=== PATIENT | male | born 1965 | race Hispanic/Latino ===

== ENCOUNTER 2016-09-23 08:31 | Outpatient (RCR) | payer MEDICAID ==
--- OUTSIDE RECORDS SUMMARY | 2016-08-10 08:17 | XMS REPORT | Continuity of Care Document ---
Author Author [facility] Organization [facility] Address Unknown Phone Unavailable Care Team Providers Care Er Medical Technician Name Role Phone [facility] PCP Insurance Providers Payer Name Policy Number Subscriber Name Relationship [facility] [employer] [id number] Rita Thomas 16 Self / Same As Patient Advance Directives Directive Response Recorded Date/Time Advance Directives No 05/22/16 4:51pm Health Care Power of Personal Financial Representative No 05/22/16 4:51pm Organ Donor No 05/22/16 4:51pm Resuscitation Status Full Code 05/22/16 4:51pm Chief Complaint and Reason for Visit Chief Complaint Orthopedic Problems Reason for Visit Soft tissue infection Problems Active Problems Medical Problem Onset Date Status Acute dyspnea Unknown Acute Soft tissue infection Unknown Acute Medications Current Home Medications Medication Dose Units Route Directions Days/Qty Instructions Start Date Triamterene/Hctz 1 Each 1 Cap Oral Daily 01/14/11 Metformin Hcl (Glucophage) 500 Mg 500 Mg Oral Twice A Day 09/18/11 Metoprolol Tartrate 50 Mg 50 Mg Oral Twice A Day 01/28/16 Docusate Sodium 100 Mg 100 Mg Oral Daily 01/28/16 Chlorzoxazone 500 Mg 500 Mg Oral Twice A Day as needed for Pain Sertraline Hcl 50 Mg 50 Mg Oral Daily 04/08/16 Lisinopril 10 Mg 10 Mg Oral Daily 04/14/16 Atorvastatin Calcium 20 Mg 20 Mg Oral Bedtime 04/14/16 Hydrocodone/Acetaminophen 1 Each 1 Tab Oral Four Times Daily as needed for Pain 04/21/16 Oxycodone Hcl/Acetaminophen 1 Each 1 Each Oral Every 4HRS as needed for Pain 50 04/24/16 Cefdinir (Omnicef) 300 Mg 300 Mg Oral Twice A Day 20 05/15/16 Sulfamethoxazole/Trimethoprim 1 Each 1 Each Oral 05/22/16 Doxycycline Hyclate 100 Mg 100 Mg Oral Daily 05/22/16 Past Home Medications Medication Directions Ordered Status Sertraline Hcl 100 Mg Tab, 03/25/09 Discontinued Naproxen 500 Mg Tablet, 1 Each Oral Three Times A Day And Prn 03/25/09 Discontinued Methocarbamol (Robaxin) 750 Mg Tablet, 1 Each Oral Four Times Daily 03/25/09 Discontinued Tramadol Hcl 50 Mg Tablet, 1 Tab Oral Four Times Daily 03/25/09 Discontinued Hydrocodone Bit/Acetaminophen 1 Each Capsule, 1 Each Oral Every 6 Hours 01/14 Discontinued Acetaminophen/Hydrocodone Bitart 1 Each Tablet, 1 - 2 Each Oral Q4hr Prn 12/21 Discontinued Hydrocodone/Acetaminophen 1 Each Tablet, 1 Tab Oral Four Times Daily as needed for Pain 01/28/16 Discontinued Oxycodone Hcl/Acetaminophen 1 Each Tablet, 1 Each Oral Every 4HRS 02/05/16 Discontinued Oxycodone Hcl/Acetaminophen 1 Each Tablet, 1 Each Oral Every 4HRS 02/07/16 Discontinued Social History Social History Problem Response Recorded Date/Time Alcohol Use Occasionally Uses 04/08/2016 9:12am Recreational Drug Use No 04/08/2016 9:12am Recent Foreign Travel No 05/22/2016 4:51pm Recent Infectious Disease Exposure No 05/22/2016 4:51pm Hospitalization with Isolation Denies 05/22/2016 4:51pm Sexually Transmitted Disease No 05/15/2016 5:56pm HIV/AIDS No 05/15/2016 5:56pm Smoking Status Current Someday Smoker 05/22/2016 4:51pm Type Used Cigarettes 05/22/2016 4:51pm Recent Hopitalizations Y DAY SURGERY 05/15/2016 5:56pm Sexually Transmitted Disease No 05/15/2016 5:56pm Hospitalization with Isolation Denies 05/22/2016 4:51pm Query Response Start Date Stop Date Smoking Status Current Someday Smoker Hospital Discharge Instructions No hospital discharge instructions. Plan of Care Discharge Date 05/22/16 6:50pm Disposition 01 HOME, SELF-CARE Condition at Discharge Stable Instructions/Education Provided DR. MA-GENERAL INSTRUCTION Prescriptions See Medication Section Referrals [facility] - Primary Care Physician [facility] - Primary Care Physician FALLON MA MD - Additional Instructions/Education All discharge instructions reviewed with patient and/or family. Voiced understanding. continue your antibiotics as prescribed. Follow-up with Dr. Ma on Tuesday as scheduled. Return for worse pain, fever, swelling, milky drainage from the wound, red streaks up the leg or other concerns as needed. Functional Status No functional status results. Allergies, Adverse Reactions, Alerts No known allergies. Immunizations No immunization records. Vital Signs Acute Vital Signs Vital Response Date/Time Temperature (Fahrenheit) 98.1 degrees F (97.6 - 99.5) 05/22/2016 4:51pm Temperature (Calculated Celsius) 36.01248 degrees C (36.4 - 37.5) 05/22/2016 4:51pm Temperature Source Temporal 05/22/2016 4:51pm Pulse Rate (adult) 89 bpm (60 - 90) 05/22/2016 4:51pm Respiratory Rate 16 bpm (12 - 24) 05/22/2016 4:51pm O2 Sat by Pulse Oximetry 97 % (88 - 100) 05/22/2016 4:51pm Blood Pressure 142/74 mm Hg 05/22/2016 4:51pm Blood Pressure Mean 96 mm Hg 05/22/2016 4:51pm Pain Numeric Pain Scale 7 05/22/2016 4:51pm Height (Feet) 5 feet 05/22/2016 4:51pm Height (Inches) 6 inches 05/22/2016 4:51pm Height (Calculated Centimeters) 167.511823 cm 05/22/2016 4:51pm Weight (Pounds) 258 pounds 05/22/2016 4:51pm Weight (Ounces) 0.0 oz 05/22/2016 4:51pm Weight (Calculated Grams) 013304.833 gm 05/22/2016 4:51pm Weight (Calculated Kilograms) 117.567648 kilograms 05/22/2016 4:51pm Calculated BMI 40.5 05/22/2016 4:51pm Capillary Refill Capillary Refill Less Than 3 Seconds 05/22/2016 4:51pm Results Laboratory Results Test Name Result Units Flags Reference Collection Date/Time Result Date/ Time Comments Hemoglobin 10.7 G/DL #L 13.3-17.7 04/24/2016 5:43am 04/24/2016 6:17am Hematocrit 32 % L 40-54 04/24/2016 5:43am 04/24/2016 6:17am Glucometer 110 MG/DL 70-110 04/21/2016 7:32am 04/21/2016 7:40am Pending Laboratory Results Test Name Collection Date/Time Pending Microbiology Results Procedure Source Collection Date/Time Procedures Procedure Status Date Provider(s) REPLACE OF R KNEE JT WITH SYNTH SUB, CEMENT, OPEN APPROACH Completed FALLON MA MD Encounters Encounter Location Arrival/Admit Date Discharge/Depart Date Attending Provider Departed Emergency Room [facility] 05/22/16 4:36pm 05/22 6:50pm JENNIFER DASH MD Registered Recurring [facility] 05/21/16 9:14am FALLON MA MD Departed Emergency Room [facility] 05/15/16 5:30pm 05/15 7:19pm FABIANA CARRINGTON APRN Discharged Inpatient [facility] 04/21/16 7:20am 11:13am FALLON MA MD Recent Diagnosis
[~2016-09-23 08:31] MED LIST: ATOR20TA66 PO; CEFD300C3 PO; CHLO500T4 PO; DOCU-143 PO; DOXY100C2 PO; HYDR-3820 PO; HYDR1CAP2 PO; HYDR1TAB PO; LISI10TA2 PO; METH750T3 PO; METO50TA2 PO; MTF500T PO; NAPR-243 PO; OXYC-197 PO; OXYC-471 PO; SERT50TA9 PO; SRTR100T; SULF1TAB35 PO; TRIA1CAP PO; TRM50T PO
== END 2016-09-23 09:54 | disposition home or self-care (01) ==
PROVIDERS: ATTEND Orthopaedic Surgery
DX: M54.16 Radiculopathy, lumbar region (principal); Z96.653 Presence of artificial knee joint, bilateral

== ENCOUNTER → 2016-10-20 | Outpatient (CLI) | payer MEDICAID ==
--- OUTSIDE RECORDS SUMMARY | 2016-10-20 14:43 | XMS REPORT | Continuity of Care Document ---
Author Author [facility] Organization [facility] Address Unknown Phone Unavailable Care Team Providers Care Pourer Off Name Role Phone [facility] PCP Insurance Providers Payer Name Policy Number Subscriber Name Relationship [facility] [employer] [id number] Rita Thomas 16 Self / Same As Patient Advance Directives Directive Response Recorded Date/Time Advance Directives No 05/22/16 4:51pm Health Care Power of Roof Truss Builder No 05/22/16 4:51pm Organ Donor No 05/22/16 [...] MA-GENERAL INSTRUCTION Prescriptions See Medication Section Referrals [facility] - Primary Care Physician [facility] - Primary Care Physician FALLON MA [...] - 99.5) 05/22/2016 4:51pm Temperature (Calculated Celsius) 36.65587 degrees C (36.4 - 37.5) 05/22/2016 4:51pm [...] 6 inches 05/22/2016 4:51pm Height (Calculated Centimeters) 167.097912 cm 05/22/2016 4:51pm Weight (Pounds) 258 pounds 05/22/2016 4:51pm Weight (Ounces) 0.0 oz 05/22/2016 4:51pm Weight (Calculated Grams) 612516.833 gm 05/22/2016 4:51pm Weight (Calculated Kilograms) 117.246012 kilograms 05/22/2016 4:51pm Calculated BMI 40.5 05/22/2016 [...] Date Attending Provider Departed Emergency Room [facility] 05/22/16 4:36pm 05/22 6:50pm JENNIFER DSAH MD Registered Recurring [facility] 05/21/16 9:14am FALLON MA MD Departed Emergency Room [facility] 05/15/16 5:30pm 05/15 7:19pm FABIANA CARRINGTON APRN Discharged Inpatient [facility] 04/21/16 7:20am 11:13am FALLON MA MD Recent Diagnosis
--- NOTE | 2016-10-20 16:16 | Diagnostic Imaging Report ---
PROCEDURE: MRI lumbar spine. TECHNIQUE: Multiplanar, multisequence MRI of the lumbar spine was performed without contrast. INDICATION: Lumbar radiculopathy. Bilateral leg weakness. FINDINGS: There are short pedicles in the lumbar spine resulting in shortened AP dimension of the spinal canal and short AP dimension of the spinal canal. This results in atgy-ky-ijanubpd congenital spinal canal stenosis involving mostly L3 and L4 vertebral body levels and slightly at the L2 vertebral level. There is a pars defect on the left side at L5 seen on CT scan from 2008 not well demonstrated by MRI. There is no compression fracture. The alignment at the posterior spinal line is satisfactory. There is mild disc height loss at the L2-L3 and L4-L5 levels. Mild disc desiccation at most lumbar spine levels seen. The cauda equina and conus medullaris appear grossly unremarkable. Multilevel facet arthropathy is seen. There is 1.3 cm T2 hyperintense lesion in the L3 vertebral body with well-defined margins which may represent a vertebral hemangioma. T12-L1: There is a mild disc bulge with mild facet hypertrophy. No cord compression. There is mild central canal stenosis reducing the AP dimension of the spinal canal to 8.8 mm. The lateral recess is patent on both sides. No foraminal stenosis. L1-L2: There is a diffuse disc bulge and bilateral moderate facet arthropathy. There is qxzqwlxk-pm-jwewgi central canal stenosis reducing the AP dimension of the canal to 6.6 mm with bilateral mild lateral recess stenosis. The foramina demonstrate mild stenosis only on the right side. L2-L3 level: There is a diffuse disc bulge and moderate facet arthropathy associated with severe central canal stenosis reducing the AP dimension of the canal to 6.4 mm and associated with dvcpgokj-av-avkjeu bilateral lateral recess stenosis. The foramina demonstrate moderate narrowing on the left and lrmy-fc-vzpoyrer narrowing on the right side. There is sdpw-kd-xgxccegy stenosis of the spinal canal at the L3 vertebral level with the central canal measurement at 8 mm in AP dimension at mid L3 vertebral body level. L3-L4: There is a central disc protrusion on top of a diffuse bulge and xzouishw-jq-rmlmga facet arthropathy resulting in qlkmppgc-vm-jctimp spinal canal stenosis reducing the AP dimension of the canal to 6.7 mm and resulting in severe stenosis of the left lateral recess and jurb-wc-vycpzjyo stenosis of the right lateral recess. There is bilateral foraminal stenosis moderate on the left and qwltqndp-jk-tqvovj on the right side. L4-L5: There is a diffuse disc bulge and bilateral severe facet arthropathy. There is a xeaj-na-dcojypwq central canal stenosis reducing the AP dimension of the canal to 8.3 mm and there is bilateral narrowing of the lateral recesses of a moderate degree on the left and tnzrtlbu-hj-fiudtr degree on the right side encroaching upon the descending right L5 nerve root. The foramina demonstrate bilateral stenosis mild on the left and vmhmldbu-ph-yuhewm on the right side. L5-S1: No significant disc herniation. There is mild facet hypertrophy. No central canal or lateral recess stenosis. There is jpyc-xc-uamxgxsk stenosis in the right neural foramen and mild stenosis on the left. IMPRESSION: There is multilevel significant central canal, lateral recess and foraminal stenosis worst at the L2-L3 and L3-L4 levels. This is related to congenital spinal canal stenosis with superimposed disc and facet degenerative changes. Report was faxed to the office of Dr. Chidi Ma at 4:14 p.m., by margarita (for CLARICE). Dictated by: Dictated on workstation # [id number]
== END ==
LOC: RAD 14:39
PROVIDERS: ATTEND Orthopaedic Surgery
DX: M54.16 Radiculopathy, lumbar region (principal)
CPT/HCPCS: 72148

== ENCOUNTER → 2019-01-18 | Outpatient (CLI) | payer MEDICARE ==
[~2019-01-18] MED LIST changes: +AMIT100T2; +GABA800T10; +LISI-552; +MECL-106 PO; +METF-397; +METO50TA15 PO; -METO50TA2 PO; +ONDA8TAB9 PO; -OXYC-197 PO; +OXYC-465; +OXYC1TAB87 PO; +PROM25SU43 RC; +SCOP1PAT11 TD; +SILD100T; +TRIA1CAP4
== END | disposition home or self-care (01) ==
LOC: PREOP 05:37
PROVIDERS: ATTEND Podiatrist Foot & Ankle Surgery
DX: Z01.818 Encounter for other preprocedural examination (principal)

== ENCOUNTER → 2019-03-29 | Outpatient (CLI) | payer MEDICARE ==
--- NOTE | 2019-03-29 14:09 | Cardiology Stress Test Report ---
Stress Test Report Date of Procedure/Referring: Date of Procedure: Mar 29, 2019 PCP Melvin Pride MD Admitting Physician Trisha Welsh DO Indications: chest pain Baseline Heart Rate: 84 Baseline Blood Pressure: Blood Pressure Systolic: 132 Blood Pressure Diastolic: 92 Baseline EKG: Baseline EKG: Sinus rhythm Summary/Conclusion: Summary: In summary, the patient started exercising with a baseline heart rate, blood pressure and EKG mentioned above Patient was able to exercise for a total of 8 minutesminutes on Shelton protocol, 9.7 METs Maximum heart rate 157 bpm, which is 95 percent of maximum predicted heart rate response. Maximum blood pressure 214/[address] depression was noted at peak exercise which resolved during recovery. However equivocal changes. associated with chest and arm pain. Recovery EKG Return to baseline Conclusion: 1. Good exercise tolerance. 2. patient had ST depression and chest pain during peak exercise which resolved during recovery. The ST depressions were equivocal. clinical correlation is recommended, if the patient is at intermediate to high risk for obstructive CAD, I will recommend stress test with nuclear imaging or coronary angiography. 3. No arrhythmia was noted. 4. Aggressive hypertension management. Copy Copies To 1: MELVIN PRIDE MD Copies To 2: TRISHA WELSH M RIZWAN MD Mar 29, 2019 14:09
[2019-03-29 14:19] VITALS: BP 132/92
== END ==
LOC: CARD 09:08
PROVIDERS: ATTEND Pediatrics
DX: R07.9 Chest pain, unspecified (principal); I10 Essential (primary) hypertension
CPT/HCPCS: 93017

== ENCOUNTER 2019-04-26 12:59 | Day surgery (SDC) | payer MEDICARE, OTHER ==
[~2019-04-26] VITALS: Ht 167.6 cm; Wt 122.1 kg
[~2019-04-26 12:59] MED LIST changes: -OXYC-465; +OXYC-465 PO; -SILD100T; +SILD100T PO
[2019-04-26] MEDS ORDERED: ASPIRIN 81 MG CHEW (CHILDREN'S ASA) ONE (13:02)
[2019-04-26] MEDS ORDERED: NITROGLYCERIN 0.4 MG SL TABS BTL 25'S SL ONE (13:02)
[2019-04-26 13:14] LABS: BASOPHILS % (AUTO) 0 % (0-10); EOSINOPHILS # (AUTO) 0.3 10^3/uL (0.0-0.3); EOSINOPHILS % (AUTO) 4 % (0-10); HEMATOCRIT 39 % (40-54); HEMOGLOBIN 13.3 G/DL (13.3-17.7); LYMPHOCYTES # (AUTO) 1.8 X 10^3 (1.0-4.0); LYMPHOCYTES % (AUTO) 26 % (12-44); MEAN CORPUSCULAR HEMOGLOBIN 30 PG (25-34); MEAN CORPUSCULAR HGB CONC 34 G/DL (32-36); MEAN CORPUSCULAR VOLUME 87 FL (80-99); MEAN PLATELET VOLUME 9.5 FL (7.4-10.4); MONOCYTES # (AUTO) 0.5 X 10^3 (0.0-1.0); MONOCYTES % (AUTO) 7 % (0-12); NEUTROPHILS # (AUTO) 4.2 X 10^3 (1.8-7.8); NEUTROPHILS % (AUTO) 62 % (42-75); PLATELET COUNT 236 10^3/uL (130-400); RED CELL DISTRIBUTION WIDTH 12.8 % (10.0-14.5); WHITE BLOOD COUNT 6.8 10^3/uL (4.3-11.0)
[2019-04-26] MEDS ORDERED: ASPIRIN 81 MG CHEW (CHILDREN'S ASA) PO ONE (13:15)
[2019-04-26 13:28] LABS: PROTHROMBIN TIME PATIENT 13.6 SEC (12.2-14.7)
[2019-04-26] MEDS ORDERED: HYDROCHLOROTHIAZIDE 25 MG (HCTZ) TAB PO ONE (13:30)
[2019-04-26] MEDS ORDERED: lisINopril 20 MG (PRINIVIL) TABLET PO ONE (13:30)
[2019-04-26] MEDS ORDERED: meTOprolol TARTRATE 50 MG (LOPRESSOR) TAB PO ONE (13:30)
[2019-04-26] MEDS ORDERED: amLODIPine 5 MG (NORVASC) TAB PO ONE (13:30)
--- NOTE | 2019-04-26 13:31 | Diagnostic Imaging Report ---
Indication: Chest pain. Time of exam: 1:24 PM Correlation is made with prior study 01/24/2016. The heart size is normal. The pulmonary vascularity is unremarkable. The lungs are clear. No infiltrate, effusion or pneumothorax is detected. Impression: No acute cardiopulmonary process is detected. Dictated by: Dictated on workstation # [id number]
--- NOTE | 2019-04-26 13:37 | ED Chest Pain ---
General Chief Complaint: Chest Pain Stated Complaint: CHEST PAIN Nursing Triage Note: Pt amb to room #5 w/o difficulty. a&ox4. 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 Pt reports he was driving home from [place] when symptoms began. Pt reports she did not take any of his prescribed medications this am, d/t waking up late for an appt. Pt also reports nausea, headache, and cough. Pt currently denies chest discomfort @ this time. Nursing Sepsis Screen: No Definite Risk Source: patient Exam Limitations: no limitations History of Present Illness Date Seen by Provider: Apr 26, 2019 Time Seen by Provider: 13:00 Initial Comments Here with report of chest pain on the left side that radiated to the left shoulder. Onset while driving back from [place] and lasted approximately 10 minutes. Reports that it is sharp. Pain is currently gone. He apparently had an appointment [place] this morning and got up late. He had to get up and get up there quickly and so forgot to take his blood pressure medicines. Arrives quite hypertensive. Denies shortness of breath, sweating, nausea or vomiting. Last Viagra use one week ago Timing/Duration: 1/2 hour Severity/Quality: moderate Location: central Radiation: shoulders (left) Prior CP/Workup: stress test Modifying Factors: improves with rest ASA po COMPRESSOR STATION OPERATOR: No NTG SL COMPRESSOR STATION OPERATOR: No Associated Symptoms: No abdominal pain; back pain (chronic and unchanged); No diaphoresis, No nausea/vomiting, No shortness of breath, No weakness Allergies and Home Medications Allergies Coded Allergies: No Known Drug Allergies (Unverified , 05/22/16) Home Medications Atorvastatin Calcium 20 Mg Tablet, 20 MG PO HS, (Reported) Cefdinir 300 Mg Capsule, 300 MG PO BID Prescribed by: FABIANA CARRINGTON on 05/15/16 1850 Chlorzoxazone 500 Mg Tablet, 500 MG PO BID PRN for PAIN, (Reported) Docusate Sodium 100 Mg Capsule, 100 MG PO DAILY, (Reported) Doxycycline Hyclate 100 Mg Capsule, 100 MG PO DAILY, (Reported) Hydrocodone/Acetaminophen 1 Each Tablet, 1 TAB PO QID PRN for PAIN, (Reported) Lisinopril 10 Mg Tablet, 10 MG PO DAILY, (Reported) Meclizine HCl 25 Mg Tablet, 25-50 MG PO Q6H Prescribed by: JERRICA OCASIO on 07/16/17113 Metformin Hcl 500 Mg Tablet, 500 MG PO BID, (Reported) Metoprolol Tartrate 50 Mg Tablet, 50 MG PO BID, (Reported) Ondansetron 8 Mg Tab.rapdis, 8 MG PO Q4H Prescribed by: JERRICA OCASIO on 07/16/17113 Oxycodone HCl/Acetaminophen 1 Each Tablet, 1 EACH PO Q4H PRN for PAIN Prescribed by: PORSCHE NULL on 04/24/16 100 Promethazine HCl 25 Mg Supp.rect, 25 MG RC Q4H Prescribed by: JERRICA OCASIO on 07/16/17113 Scopolamine 1 Each Patch.td72, 1 EACH TD Q72 HOURS Prescribed by: JERRICA OCASIO on 07/16/17113 Sertraline HCl 50 Mg Tablet, 50 MG PO DAILY, (Reported) Triamterene/Hctz 1 Each Capsule, 1 CAP PO DAILY, (Reported) Patient Home Medication List Home Medication List Reviewed: Yes Review of Systems Review of Systems Constitutional: see HPI; No chills, No fever EENTM: No Symptoms Reported Respiratory: See HPI; Denies Orthopnea, Denies Shortness of Air Cardiovascular: Chest Pain; Denies Edema, Denies Lightheadedness Gastrointestinal: No Symptoms Reported Genitourinary: No Symptoms Reported Musculoskeletal: back pain; No joint pain, No muscle pain Skin: no symptoms reported Psychiatric/Neurological: No Symptoms Reported All Other Systems Reviewed Negative Unless Noted: Yes Past Raynwdc-Fkderw-Ldgbuj Hx Past Med/Social Hx: Reviewed Nursing Past Med/Soc Hx Patient Social History Alcohol Use: Rarely Uses Number of Drinks Today: AA Alcohol Beverage of Choice: Beer Recreational Drug Use: No (OCCASIONALLY) Smoking Status: Current Someday Smoker Type Used: Cigarettes 2nd Hand Smoke Exposure: No Recent Foreign Travel: No Contact w/Someone Who Travel: No Recent Infectious Disease Expo: No Recent Hopitalizations: No Immunizations Up To Date Tetanus Booster (TDap): Unknown Seasonal Allergies Seasonal Allergies: No Past Medical History Surgeries: Yes (KNEE SCOPES; CARDIAC CATH; HERNIA REPAIR; BILATERAL KNEE REPLACEMENTS) Abdominal, Appendectomy, Joint Replacement, Orthopedic Respiratory: No Cardiac: Yes Hypertension Neurological: No Reproductive Disorders: No Sexually Transmitted Disease: No HIV/AIDS: No Genitourinary: No Gastrointestinal: Yes Chronic Constipation Musculoskeletal: Yes (CHRONIC KNEE PAIN) Arthritis, Chronic Back Pain Endocrine: Yes (OBESITY) Diabetes, Non-Insulin dep HEENT: No Cancer: No Psychosocial: Yes Depression Integumentary: No Blood Disorders: No Adverse Reaction/Blood Tranf: No (N/A) Family Medical History Reviewed Nursing Family Hx Completed stroke 19 MOTHER Hypertension 19 MOTHER Myocardial infarction G8 SISTER Heart Disease, Diabetes, Hypertension Physical Exam Vital Signs Vital Signs - First Documented Capillary Refill : Less Than 3 Seconds Height, Weight, BMI Height: 5'6.00" Weight: 264lbs. 0.0oz. 119.719435dr; 40.5 BMI Method:Stated General Appearance: No Apparent Distress, WD/WN HEENT: PERRL/EOMI, Pharynx Normal Neck: Non Tender, Supple Respiratory: Lungs Clear, Normal Breath Sounds Cardiovascular: Regular Rate, Rhythm, No Murmur Gastrointestinal: Non Tender, Soft Extremity: Normal Range of Motion, Non Tender Neurologic/Psychiatric: Alert, Oriented x3 Skin: Normal Color, Warm/Dry Progress/Results/Core Measures Results/Orders Lab Results Laboratory Tests Test 04/26/19 13:05 Range/Units White Blood Count 6.8 4.3-11.0 10^3/uL Red Blood Count 4.46 4.35-5.85 10^6/uL Hemoglobin 13.3 13.3-17.7 G/DL Hematocrit 39 L 40-54 % Mean Corpuscular Volume 87 80-99 FL Mean Corpuscular Hemoglobin 30 25-34 PG Mean Corpuscular Hemoglobin Concent 34 32-36 G/DL Red Cell Distribution Width 12.8 10.0-14.5 % Platelet Count 236 130-400 10^3/uL Mean Platelet Volume 9.5 7.4-10.4 FL Neutrophils (%) (Auto) 62 42-75 % Lymphocytes (%) (Auto) 26 12-44 % Monocytes (%) (Auto) 7 0-12 % Eosinophils (%) (Auto) 4 0-10 % Basophils (%) (Auto) 0 0-10 % Neutrophils # (Auto) 4.2 1.8-7.8 X 10^3 Lymphocytes # (Auto) 1.8 1.0-4.0 X 10^3 Monocytes # (Auto) 0.5 0.0-1.0 X 10^3 Eosinophils # (Auto) 0.3 0.0-0.3 10^3/uL Basophils # (Auto) 0.0 0.0-0.1 10^3/uL Prothrombin Time 13.6 12.2-14.7 SEC INR Comment 1.0 0.8-1.4 Activated Partial Thromboplast Time 31 24-35 SEC D-Dimer 0.59 H 0.00-0.49 UG/ML Sodium Level 138 135-145 MMOL/L Potassium Level 3.6 3.6-5.0 MMOL/L Chloride Level 102 98-107 MMOL/L Carbon Dioxide Level 25 21-32 MMOL/L Anion Gap 11 5-14 MMOL/L Blood Urea Nitrogen 19 H 7-18 MG/DL Creatinine 0.83 0.60-1.30 MG/DL Estimat Glomerular Filtration Rate > 60 BUN/Creatinine Ratio 23 Glucose Level 278 H 70-105 MG/DL Calcium Level 9.1 8.5-10.1 MG/DL Corrected Calcium 8.9 8.5-10.1 MG/DL Magnesium Level 1.8 1.6-2.4 MG/DL Total Bilirubin 0.4 0.1-1.0 MG/DL Aspartate Amino Transf (AST/SGOT) 12 5-34 U/L Alanine Aminotransferase (ALT/SGPT) 27 0-55 U/L Alkaline Phosphatase 63 40-136 U/L Myoglobin 30.4 10.0-92.0 NG/ML Troponin I < 0.028 <0.028 NG/ML Total Protein 7.6 6.4-8.2 GM/DL Albumin 4.3 3.2-4.5 GM/DL My Orders Orders - JENNIFER DASH MD Cbc With Automated Diff (04/26/19 13:08) Magnesium (04/26/19 13:08) Chest 1 View, Ap/Pa Only (04/26/19 13:08) Ekg Tracing (04/26/19 13:08) Cardiac Profile 1 (04/26/19 13:08) Comprehensive Metabolic Panel (04/26/19 13:08) Myoglobin Serum (04/26/19 13:08) Protime With Inr (04/26/19 13:08) Partial Thromboplastin Time (04/26/19 13:08) O2 (04/26/19 13:08) Monitor-Rhythm Ecg Trace Only (04/26/19 13:08) Lipid Panel (04/27/19 06:00) Ed Iv/Invasive Line Start (04/26/19 13:08) Fibrin Degradation Products (04/26/19 13:08) Aspirin Chewable Tablet (Baby Aspirin Ch (04/26/19 13:15) Nitroglycerin 0.4 Mg Btl 25's (Nitrostat (04/26/19 13:02) Aspirin Chewable Tablet (Baby Aspirin Ch (04/26/19 13:02) Metoprolol Tartrate (Ir) Tab (Lopressor (04/26/19 13:30) Lisinopril Tablet (Zestril Tablet) (04/26/19 13:30) Hydrochlorothiazide Cap/Tablet (Hctz Cap (04/26/19 13:30) Amlodipine Tablet (Norvasc Tablet) (04/26/19 13:30) Ticagrelor Tablet (Brilinta Tablet) (04/26/19 14:00) Echo W Doppler/Color Flow (04/26/19 14:04) Medications Given in ED Current Medications Medications Dose Ordered Sig/Tio Route Start Time Stop Time Status Last Admin Dose Admin Amlodipine Besylate 5 mg ONCE ONCE PO 04/26/19 13:30 04/26/19 13:31 DC 04/26/19 13:47 5 MG Aspirin 324 mg ONCE ONCE PO 04/26/19 13:15 04/26/19 13:16 DC 04/26/19 13:06 324 MG Hydrochlorothiazide 25 mg ONCE ONCE PO 04/26/19 13:30 04/26/19 13:31 DC 04/26/19 13:48 25 MG Lisinopril 40 mg ONCE ONCE PO 04/26/19 13:30 04/26/19 13:31 DC 04/26/19 13:48 40 MG Metoprolol Tartrate 100 mg ONCE ONCE PO 04/26/19 13:30 04/26/19 13:31 DC 04/26/19 13:48 100 MG Ticagrelor 180 mg ONCE ONCE PO 04/26/19 14:00 04/26/19 14:01 DC 04/26/19 14:07 180 MG Vital Signs/I&O 04/26/19 04/26/19 12:59 12:59 Temp 99.2 Pulse 95 Resp 18 B/P (MAP) 203/102 (135) Pulse Ox 97 O2 Delivery Room Air Room Air Blood Pressure Mean: 135 Progress Progress Note : Progress Note Seen and evaluated. IV, labs, EKG and chest x-ray ordered. ASA 324 mg by mouth ordered. Chest pain-free so we will hold nitroglycerin although there is caution with nitroglycerin due to Viagra use. He states it was a week ago. Given metoprolol 100 mg by mouth, lisinopril 40 mg by mouth, and 5 mg by mouth and hydrochlorothiazide 25 mg by mouth. Monitor patient. 1352: Reviewed patient's previous stress test and it is definitely not normal. He had ST depression and T-wave changes with exercise as well as chest pain and was recommended for further evaluation with nuclear stress test or heart catheterization depending on risk factors. Patient has several risk factors including hypertension and diabetes as well as family history. I did discuss the case with Dr. Cadena and he agrees with the concerns and is recommending admission with heart catheter tomorrow. He is requesting 2-D echocardiogram today as well as Brilinta 180 mg by mouth now. Both of those were ordered. 1358: I did discuss the case with Dr. Arita and she access patient for admission for [facility], observation status. Patient agrees to plan. Initial ECG Impression Date: Apr 26, 2019 Initial ECG Impression Time: 13:02 Initial ECG Rate: 94 Initial ECG Rhythm: Normal Sinus Comment Sinus rhythm with normal axis. No evidence of ST elevation MA. Similar to 24 Jan 2016. Interpreted by me. Diagnostic Imaging Diagonstic Imaging: Xray Plain Films/CT/US/NM/MRI: chest Comments [facility], [facility]. [place], [place] NAME: RITA THOMAS [facility] REC#: [id number] PT STATUS: REG ER : 1965 PHYSICIAN: JENNIFER DASH MD ADMIT DATE: 04/26/19/ER Draft Date of Exam:04/26/19 CHEST 1 VIEW, AP/PA ONLY Indication: Chest pain. Time of exam: 1:24 PM Correlation is made with prior study 01/24/2016. The heart size is normal. The pulmonary vascularity is unremarkable. The lungs are clear. No infiltrate, effusion or pneumothorax is detected. Impression: No acute cardiopulmonary process is detected. Dictated on workstation # [id number] Dict: 04/26/19 1327 Trans: 04/26/19 1330 CV [id number] Interpreted by: JOVANA PARRY MD Electronically signed by: Departure Communication (Admissions) Time/Spoke to Admitting Phy: 13:52 Impression Primary Impression: Chest pain Qualified Codes: R07.9 - Chest pain, unspecified Disposition: ADMITTED INPATIENT Condition: Stable Admissions Decision to Admit Reason: Admit from ER (General) Decision to Admit/Date: Apr 26, 2019 Time/Decision to Admit Time: 13:52 Departure-Patient Inst. Referrals: TRISHA WELSH DO (PCP) Primary Care Physician MELVIN PRIDE MD (Family) Primary Care Physician JENNIFER DASH MD Apr 26, 2019 13:37
[2019-04-26 13:39] LABS: ALANINE AMINOTRANSFERASE 27 U/L (0-55); ALBUMIN 4.3 GM/DL (3.2-4.5); ALKALINE PHOSPHATASE 63 U/L (40-136); BILIRUBIN,TOTAL 0.4 MG/DL (0.1-1.0); BUN/CREATININE RATIO 23; CALCIUM 9.1 MG/DL (8.5-10.1); CARBON DIOXIDE 25 MMOL/L (21-32); CHLORIDE 102 MMOL/L (98-107); CREATININE SERUM 0.83 MG/DL (0.60-1.30); GFR ESTIMATED > 60; GLUCOSE 278 MG/DL (70-105); MAGNESIUM 1.8 MG/DL (1.6-2.4); POTASSIUM 3.6 MMOL/L (3.6-5.0); SODIUM 138 MMOL/L (135-145); TOTAL PROTEIN 7.6 GM/DL (6.4-8.2)
[2019-04-26] MEDS ORDERED: TICAGRELOR 90 MG TABLET (BRILINTA) PO ONE (14:00)
--- NOTE | 2019-04-26 15:05 | NUR ---
RITA THOMAS admitted to room 404-1, with an admitting diagnosis of CHEST PAIN, on 04/26/19 from ED via WHEELCHAIR, accompanied by ED STAFF. RITA THOMAS introduced to surroundings, call light, bed controls, phone, TV, temperature control, lights, meal times, smoking policy, visitor policy, side rail policy, bathrooms and showers. Patient Rights given to patient in the handbook. RITA THOMAS verbalizes understanding that [facility] is not responsible for the loss or damage to any personal effects or valuables that are kept in the patients possession during their hospitalization. The following Patient Care Plans were discussed with the PATIENT: Discharge Planning,CHEST PAIN and KNOWLEDGE DEFICIT. RITA THOMAS verbalizes understanding of Interdisciplinary Patient Education. Patient and/or family were informed about the Rapid Response Team and its purpose.
[2019-04-26 15:12] VITALS: BP 184/85
[2019-04-26] MEDS ORDERED: NS IV 1000 ML 1,000 ML IV SCH (15:30)
[2019-04-26] MEDS ORDERED: METO100T12 PO ×2 (15:59)
[2019-04-26] MEDS ORDERED: METF-399 PO ×2 (15:59)
[2019-04-26] MEDS ORDERED: DICL75TA2 PO ×2 (15:59)
[2019-04-26] MEDS ORDERED: OMG1KC PO ×2 (15:59)
[2019-04-26] MEDS ORDERED: LISI40TA PO ×2 (15:59)
[2019-04-26] MEDS ORDERED: TERB250T16 PO ×2 (15:59)
[2019-04-26] MEDS ORDERED: HYDR25TA4 PO ×2 (15:59)
[2019-04-26] MEDS ORDERED: HYDR28.341 RC ×2 (15:59)
[2019-04-26] MEDS ORDERED: SERT100T8 PO ×2 (15:59)
[2019-04-26] MEDS ORDERED: PRD20T PO ×2 (15:59)
[2019-04-26] MEDS ORDERED: AMLO5TAB9 PO ×2 (15:59)
[2019-04-26] MEDS ORDERED: CELE-63 PO ×2 (15:59)
--- NOTE | 2019-04-26 16:01 | NUR ---
WENT OVER THE EXT MED HX WITH THE PATIENT AND HE VERIFIED HOW HE TAKES HIS MEDICATIONS. HE STATES HE GETS ALL OF HIS MEDS FROM [facility]. NOTHING THROUGH PALS OR REPOSITORY. IN ADDITION TO WHAT IS SHOWN ON THE EXT MED HX [facility] FILLED: 04-06-19 VIAGRA 100MG #10 HE TAKES FISH OIL BID OTC.
--- NOTE | 2019-04-26 16:19 | Consultation-Cardiology ---
HPI-Cardiology Cardiology Consultation: Date of Consultation 04/26/19 Date of Admission Attending Physician Skylar Arita DO Admitting Physician Arlene Fabian DO Consulting Physician Amber CADENA MD HPI: Time Seen by a Provider: 15:00 Chief Complaint: chest pain this is a 53-year-old gentleman who has history of hyperlipidemia, hypertension, diabetes. He presented to the ER with complains of chest pain, left-sided radiating to the left shoulder. Duration 10 minutes. Sharp. In the ER chest pain resolved without nitroglycerin. He was very hypertensive in the ER. He did not take his blood pressure medications this morning. Blood pressure medications were given with subsequent improvement in his blood pressure. He denied any other associated cardiac symptoms. Chest pain was mild to moderate intensity. Review of Systems-Cardiology Review of Systems Constitutional: As described under HPI; No As described under HPI, No no symptoms reported, No chills, No fever, No lightheadedness Eyes: No As described under HPI, No no symptoms reported, No blindness, No blurred vision, No contact lenses, No drainage, No decreased acuity, No foreign body sensation, No pain, No vision change Ears/Nose/Throat: No As described under HPI, No no symptoms reported, No chronic hearing loss, No ear discharge, No ear pain, No nasal drainage, No ulcerations Respiratory: No no symptoms reported; As described under HPI; No As described under HPI, No cough, No orthopnea, No shortness of breath, No SOB with excertion Cardiovascular: No no symptoms reported; As described under HPI; No As described under HPI; chest pain; No edema, No irregular heart rate, No lightheadedness, No palpitations Gastrointestinal: No no symptoms reported, No As described under HPI, No abdomen distended, No abdominal pain, No blood streaked bowels, No constipation, No diarrhea, No nausea, No vomiting, No stool coloration changes Genitourinary: No As described under HPI, No burning, No dysuria, No discharge, No frequency, No flank pain, No hematuria, No urgency Skin: No rash, No skin related problems, No ulcerations Psychiatric/Neurological: No anxiety, No depression, No seizure, No focal weakness, No syncope Hematologic: No bleeding abnormalities All Other Systems Reviewed Negative Unless Noted: Yes GTG-Xubiop-Tlspnc Hx Patient Social History Alcohol Use: Rarely Uses Recreational Drug Use: No (OCCASIONALLY) Smoking Status: Current Someday Smoker Type Used: Cigarettes 2nd Hand Smoke Exposure: No Recent Foreign Travel: No Recent Infectious Disease Expo: No Hospitalization with Isolation: Denies Immunizations Up To Date Tetanus Booster (TDap): Unknown Past Medical History PMH As described under Assessment. Family Medical History Family History: Completed stroke 19 MOTHER Hypertension 19 MOTHER Myocardial infarction G8 SISTER Allergies and Home Medications Allergies Coded Allergies: No Known Drug Allergies (Unverified , 05/22/16) Home Medications Amlodipine Besylate 5 Mg Tablet, 5 MG PO DAILY, (Reported) Celecoxib 200 Mg Capsule, 200 MG PO DAILY, (Reported) Diclofenac Sodium 75 Mg Tablet.dr, 75 MG PO BID, (Reported) Doxycycline Hyclate 100 Mg Capsule, 100 MG PO BID, (Reported) 10 DAY SUPPLY FILLED 04-23-19 Hydrochlorothiazide 25 Mg Tablet, 25 MG PO DAILY, (Reported) Hydrocortisone 28.35 Gm Cream.appl, RC UD PRN for HEMORRHOIDS, (Reported) Lisinopril 40 Mg Tablet, 40 MG PO DAILY, (Reported) Metformin HCl 1,000 Mg Tablet, 1,000 MG PO BID, (Reported) Metoprolol Tartrate 100 Mg Tablet, 100 MG PO BID, (Reported) [place] 3 Polyunsat Fatty Acids 1,000 Mg Cap, 1,000 MG PO BID, (Reported) Oxycodone HCl/Acetaminophen 1 Each Tablet, 1 TAB PO TID PRN for PAIN-MODERATE, (Reported) Prednisone 20 Mg Tab, 20 MG PO BID, (Reported) 5 DAY SUPPLY FILLED 04-23-19 Sertraline HCl 100 Mg Tablet, 100 MG PO DAILY, (Reported) Sildenafil Citrate 100 Mg Tablet, 100 MG PO DAILY PRN for ED, (Reported) Terbinafine HCl 250 Mg Tablet, 250 MG PO DAILY, (Reported) Patient Home Medication List Home Medication List Reviewed: Yes Physical Exam-Cardiology Physical Exam Vital Signs/I&O 04/26/19 04/26/19 04/26/19 04/26/19 12:59 12:59 15:12 15:12 Temp 99.2 98.3 98.3 Pulse 95 66 66 Resp 18 20 20 B/P (MAP) 203/102 (135) 184/85 184/85 (118) Pulse Ox 97 94 94 O2 Delivery Room Air Room Air Room Air Room Air 04/26/19 04/26/19 15:23 15:45 Pulse 63 O2 Delivery Room Air Capillary Refill : Less Than 3 Seconds Constitutional: appears stated age, AAO x 3; No apparent distress; well- developed, well-nourished HEENT: PERRL; No normal ENT inspection, No TMs normal, No pharynx normal, No scleral icterus (R), No scleral icterus (L), No pale conjunctivae (R), No pale conjunctivae (L), No photophobia, No TM abnormal (R), No TM abnormal (L), No pharyngeal erythema, No tonsillar exudate, No other, No discharge, No EOMI; hearing is well preserved; No hard of hearing; oral hygience is good; No ulceration, No xanthelasmas are seen Neck: No non-tender, No full range of motion, No supple, No normal inspection, No carotid bruit, No limited range of motion, No lymphadenopathy (R), No lymphadenopathy (L), No tender lateral, No tender midline, No thyromegaly, No other; carotid pulses are 2 + bilaterally; No with good upstrokes Respiratory: No accessory muscle use, No respiratory distress, No chest tender, No chest expansion is symmetric; chest is bilaterally symmetric; No lungs clear to percussion; lungs clear to auscultation; No crackles, No rhonchi, No rales, No stridor, No wheezing, No pleural rub, No other Cardiovascular: regular rate-rhythm; No irregularly irregular, No extra beats, No parasternal heave is noted, No JVD, No edema, No bradycardia, No tachycardia, No point of maximal impulse, No cardiac thrills are palpable; S1 and S2; No gallop/S3, No gallop/S4, No diastolic murmur, No systolic murmur, No friction rub, No click, No other Gastrointestinal: No tender, No soft, No round, No distended, No pulsatile mass, No organomegaly, No guarding, No rebound, No tenderness, No hernia, No mass, No audible bowel sounds, No abnormal bowel sounds, No abdominal bruits, No spleenomegaly, No other Rectal: deferred Extremities: No normal range of motion, No non-tender, No normal inspection, No pedal edema, No calf tenderness, No normal capillary refill, No pelvis stable, No calf tenderness, No inflammation, No pedal edema, No slow capillary refill, No swelling, No other, No abrasion, No clubbing, No cyanosis, No ecchymosis, No laceration, No no lower extremity edema bilateral, No significant edema, No tenderness, No wound Neurologic/Psychiatric: no motor/sensory deficits, alert, normal mood/affect, oriented x 3, power is 5/5 both on sides Skin: No normal color, No warm/dry, No cyanosis, No cool, No diaphoresis, No damp, No ecchymosis, No jaundice, No mottled, No pallor, No rash, No tattoos/piercings, No ulcerations, No rash on exposed areas, No ulcerations on exposed areas, No other Data Review Labs Laboratory Tests 04/26/19 13:05: White Blood Count 6.8, Red Blood Count 4.46, Hemoglobin 13.3, Hematocrit 39L, Mean Corpuscular Volume 87, Mean Corpuscular Hemoglobin 30, Mean Corpuscular Hemoglobin Concent 34, Red Cell Distribution Width 12.8, Platelet Count 236, Mean Platelet Volume 9.5, Neutrophils (%) (Auto) 62, Lymphocytes (%) (Auto) 26, Monocytes (%) (Auto) 7, Eosinophils (%) (Auto) 4, Basophils (%) (Auto) 0, Neutrophils # (Auto) 4.2, Lymphocytes # (Auto) 1.8, Monocytes # (Auto) 0.5, Eosinophils # (Auto) 0.3, Basophils # (Auto) 0.0, Prothrombin Time 13.6, INR Comment 1.0, Activated Partial Thromboplast Time 31, D-Dimer 0.59H, Sodium Level 138, Potassium Level 3.6, Chloride Level 102, Carbon Dioxide Level 25, Anion Gap 11, Blood Urea Nitrogen 19H, Creatinine 0.83, Estimat Glomerular Filtration Rate > 60, BUN/Creatinine Ratio 23, Glucose Level 278H, Calcium Level 9.1, Corrected Calcium 8.9, Magnesium Level 1.8, Total Bilirubin 0.4, Aspartate Amino Transf (AST/SGOT) 12, Alanine Aminotransferase (ALT/SGPT) 27, Alkaline Phosphatase 63, Myoglobin 30.4, Troponin I < 0.028, Total Protein 7.6, Albumin 4.3 ECG Impression ECG Initial ECG Rhythm: Normal Sinus Initial ECG Impression: Normal A/P-Cardiology Assessment/Admission Diagnosis chest pain, Abnormal exercise stress test, Severe hypertension, Diabetes, Hyperlipidemia Plan chest pain, serial cardiac enzymes. EKG negative. However the patient had exercise stress test within the last one month which showed ST changes with chest pain and arm pain. Coronary angiography is recommended. Brilinta bolus was given. Abnormal exercise stress test, Severe hypertension,continue outpatient medical therapy which includes metop rolol and lisinopril. Diabetes,defer to the primary team. Hyperlipidemia, Will require statin therapy. Thank you for your consultation. Please call me if you have any questions. Jorge Luis Cadena MD, FACP, FACC, FSCAI, FHRS, CCDS Interventional Cardiology Cardiac Electrophysiology Vascular Medicine and Endovascular Interventions Clinical Quality Measures AMI/AHF: ASA po Prior to arrival: No DVT/VTE Risk/Contraindication: Risk Factor Score Per Nursin RFS Level Per Nursing on Admit: 2=Moderate Amber CADENA MD Apr 26, 2019 16:19
[2019-04-26 19:29] VITALS: BP 194/94
[2019-04-26 19:37] VITALS: BP 172/90
[2019-04-26] MEDS ORDERED: ACETAMINOPHEN 500 MG TAB (TYLENOL) PO PRN (20:00)
[2019-04-26] MEDS ORDERED: MELATONIN 3 MG TABLET PO PRN (20:00)
[2019-04-26] MEDS ORDERED: CALCIUM CARBONATE 500 MG (TUMS) TAB.CHEW PO PRN (20:00)
[2019-04-26] MEDS ORDERED: ONDANSETRON 4 MG/2 ML (SDV) Z0FRAN IVP PRN (20:00)
[2019-04-26] MEDS ORDERED: cloNIDine 0.1 MG (CATAPRES) TAB PO PRN (20:00)
[2019-04-26] MEDS ORDERED: oxyCODONE/APAP 10/325MG (PERCOCET 10) TABLET PO PRN (20:00)
[2019-04-26] MEDS ORDERED: hydrALAZINE (APRESOLINE) 25 MG TAB PO PRN (20:00)
[2019-04-26] MEDS ORDERED: LOPERAMIDE 2 MG (IMODIUM) TABLET PO PRN (20:00)
[2019-04-26] MEDS ORDERED: ALPRAZolam 0.25 MG (XANAX) TAB PO PRN (20:00)
[2019-04-26] MEDS ORDERED: diphenhydrAMINE 25 MG TAB (BENADRYL) PO PRN (20:00)
[2019-04-26] MEDS ORDERED: DOCUSATE SODIUM 100 MG (COLACE) CAP PO PRN (20:00)
[2019-04-26] MEDS ORDERED: HYDROcodone/APAP 5 MG/325 MG (LORTAB) TAB PO PRN (20:00)
[2019-04-26] MEDS: ETODOLAC 300 MG (LODINE) CAP PO SCH (20:43)
[2019-04-26] MEDS: meTOprolol TARTRATE 50 MG (LOPRESSOR) TAB PO SCH (20:43)
[2019-04-26 21:46] VITALS: BP 164/88
[2019-04-26 23:52] VITALS: BP 142/82
[2019-04-27] VITALS (10 sets, daily range): BP systolic 130–174; BP diastolic 72–91
[2019-04-27 06:11] LABS: BASOPHILS % (AUTO) 0 % (0-10); EOSINOPHILS # (AUTO) 0.4 10^3/uL (0.0-0.3); EOSINOPHILS % (AUTO) 6 % (0-10); HEMATOCRIT 38 % (40-54); HEMOGLOBIN 13.1 G/DL (13.3-17.7); LYMPHOCYTES # (AUTO) 2.1 X 10^3 (1.0-4.0); LYMPHOCYTES % (AUTO) 29 % (12-44); MEAN CORPUSCULAR HEMOGLOBIN 30 PG (25-34); MEAN CORPUSCULAR HGB CONC 34 G/DL (32-36); MEAN CORPUSCULAR VOLUME 87 FL (80-99); MEAN PLATELET VOLUME 10.1 FL (7.4-10.4); MONOCYTES # (AUTO) 0.7 X 10^3 (0.0-1.0); MONOCYTES % (AUTO) 9 % (0-12); NEUTROPHILS % (AUTO) 55 % (42-75); PLATELET COUNT 188 10^3/uL (130-400); RED CELL DISTRIBUTION WIDTH 12.5 % (10.0-14.5); WHITE BLOOD COUNT 7.2 10^3/uL (4.3-11.0)
[2019-04-27] MEDS ORDERED: NS IV 1000 ML 1,000 ML ONE (06:32)
[2019-04-27] MEDS ORDERED: LIDOCAINE 1% INJ 20 ML 20 ML VIAL ONE (06:32)
[2019-04-27] MEDS ORDERED: fentaNYL INJECTION 100 MCG/2 ML AMP ONE (06:32)
[2019-04-27] MEDS ORDERED: MIDAZOLAM 5 MG/5 ML (VERSED) VIAL ONE (06:32)
[2019-04-27] MEDS ORDERED: HEParin (CATH LAB) 2,000 ML IV ONE (06:33)
[2019-04-27 06:37] LABS: ALANINE AMINOTRANSFERASE 21 U/L (0-55); ALBUMIN 3.9 GM/DL (3.2-4.5); ALKALINE PHOSPHATASE 49 U/L (40-136); BILIRUBIN,TOTAL 0.5 MG/DL (0.1-1.0); BUN/CREATININE RATIO 17; CALCIUM 9.1 MG/DL (8.5-10.1); CARBON DIOXIDE 26 MMOL/L (21-32); CHLORIDE 105 MMOL/L (98-107); CHOLESTEROL 177 MG/DL (< 200); CREATININE SERUM 0.78 MG/DL (0.60-1.30); GFR ESTIMATED > 60; GLUCOSE 154 MG/DL (70-105); HDL CHOLESTEROL 28 MG/DL (40-60); POTASSIUM 3.9 MMOL/L (3.6-5.0); SODIUM 141 MMOL/L (135-145); TOTAL PROTEIN 6.5 GM/DL (6.4-8.2); TRIGLYCERIDES 310 MG/DL (<150); VLDL CHOLESTEROL 62 MG/DL (5-40)
[2019-04-27] MEDS ORDERED: MIDAZOLAM 2 MG/2 ML (VERSED) VIAL ONE (07:46)
--- NOTE | 2019-04-27 08:04 | Cardiology Progress Note ---
Cardiology SOAP Progress Note Subjective: no chest pain. Objective: I&O/Vital Signs 04/26/19 04/26/19 04/27/19 04/27/19 21:46 23:52 01:00 04:40 Temp 97.1 97.2 Pulse 62 51 51 56 Resp 20 20 B/P (MAP) 164/88 (113) 142/82 (102) 154/88 (110) Pulse Ox 98 97 O2 Delivery Room Air Room Air 04/27/19 07:00 Pulse 49 04/27/19 00:00 Intake Total 840 ml Balance 840 ml Weight (Pounds): 269 Weight (Ounces): 2.0 Weight (Calculated Kilograms): 122.456759 Constitutional: appears stated age, AAO x 3; No apparent distress; well- developed, well-nourished Respiratory: No accessory muscle use, No respiratory distress, No chest tender, No chest expansion is symmetric; chest is bilaterally symmetric; No lungs clear to percussion; lungs clear to auscultation; No crackles, No rhonchi, No rales, No stridor, No wheezing, No pleural rub, No other Cardiovascular: regular rate-rhythm; No irregularly irregular, No extra beats, No parasternal heave is noted, No JVD, No edema, No bradycardia, No tachycardia, No point of maximal impulse, No cardiac thrills are palpable; S1 and S2; No gallop/S3, No gallop/S4, No diastolic murmur, No systolic murmur, No friction rub, No click, No other Gastrointestional: No tender, No soft, No round, No distended, No pulsatile mass, No organomegaly, No guarding, No rebound, No tenderness, No hernia, No mass, No audible bowel sounds, No abnormal bowel sounds, No abdominal bruits, No spleenomegaly, No other Extremities: No normal range of motion, No non-tender, No normal inspection, No pedal edema, No calf tenderness, No normal capillary refill, No pelvis stable, No calf tenderness, No inflammation, No pedal edema, No slow capillary refill, No swelling, No other, No abrasion, No clubbing, No cyanosis, No ecchymosis, No laceration, No no lower extremity edema bilateral, No significant edema, No tenderness, No wound Neurologic/Psychiatric: no motor/sensory deficits, alert, normal mood/affect, oriented x 3, power is 5/5 both on sides Skin: No normal color, No warm/dry, No cyanosis, No cool, No diaphoresis, No damp, No ecchymosis, No jaundice, No mottled, No pallor, No rash, No tattoos/piercings, No ulcerations, No rash on exposed areas, No ulcerations on exposed areas, No other Results/Procedures: Labs Laboratory Tests 04/26/19 13:05: White Blood Count 6.8, Red Blood Count 4.46, Hemoglobin 13.3, Hematocrit 39L, Mean Corpuscular Volume 87, Mean Corpuscular Hemoglobin 30, Mean Corpuscular H emoglobin Concent 34, Red Cell Distribution Width 12.8, Platelet Count 236, Mean Platelet Volume 9.5, Neutrophils (%) (Auto) 62, Lymphocytes (%) (Auto) 26, Monocytes (%) (Auto) 7, Eosinophils (%) (Auto) 4, Basophils (%) (Auto) 0, Neutrophils # (Auto) 4.2, Lymphocytes # (Auto) 1.8, Monocytes # (Auto) 0.5, Eosinophils # (Auto) 0.3, Basophils # (Auto) 0.0, Prothrombin Time 13.6, INR C omment 1.0, Activated Partial Thromboplast Time 31, D-Dimer 0.59H, Sodium Level 138, Potassium Level 3.6, Chloride Level 102, Carbon Dioxide Level 25, Anion Gap 11, Blood Urea Nitrogen 19H, Creatinine 0.83, Estimat Glomerular Filtration Rate > 60, BUN/Creatinine Ratio 23, Glucose Level 278H, Calcium Level 9.1, Corrected Calcium 8.9, Magnesium Level 1.8, Total Bilirubin 0.4, Aspartate Amino Transf (AST/SGOT) 12, Alanine Aminotransferase (ALT/SGPT) 27, Alkaline Phosphatase 63, Myoglobin 30.4, Troponin I < 0.028, Total Protein 7.6, Albumin 4.3 04/26/19 19:13: Troponin I < 0.028 04/27/19 04:45: White Blood Count 7.2, Red Blood Count 4.40, Hemoglobin 13.1L, Hematocrit 38L, Mean Corpuscular Volume 87, Mean Corpuscular Hemoglobin 30, Mean Corpuscular Hemoglobin Concent 34, Red Cell Distribution Width 12.5, Platelet Count 188, Mean Platelet Volume 10.1, Neutrophils (%) (Auto) 55, Lymphocytes (%) (Auto) 29, Monocytes (%) (Auto) 9, Eosinophils (%) (Auto) 6, Basophils (%) (Auto) 0, Neutrophils # (Auto) 4.0, Lymphocytes # (Auto) 2.1, Monocytes # (Auto) 0.7, Eosinophils # (Auto) 0.4H, Basophils # (Auto) 0.0 04/27/19 05:00: Sodium Level 141, Potassium Level 3.9, Chloride Level 105, Carbon Dioxide Level 26, Anion Gap 10, Blood Urea Nitrogen 13, Creatinine 0.78, Estimat Glomerular Filtration Rate > 60, BUN/Creatinine Ratio 17, Glucose Level 154H, Calcium Level 9.1, Corrected Calcium 9.2, Total Bilirubin 0.5, Aspartate Amino Transf (AST/SGOT) 12, Alanine Aminotransferase (ALT/SGPT) 21, Alkaline Phosphatase 49, Total Protein 6.5, Albumin 3.9, Triglycerides Level 310H, Cholesterol Level 177, LDL Cholesterol Direct 104, VLDL Cholesterol 62H, HDL Cholesterol 28L A/P: Assessment/Dx: chest pain, Abnormal exercise stress test, Severe hypertension, Diabetes, Hyperlipidemia Plan: chest pain, serial cardiac enzymes. EKG negative. However the patient had exercise stress test within the last one month which showed ST changes with chest pain and arm pain. Coronary angiography is recommended which will be done today. Brilinta bolus was given. Abnormal exercise stress test, Severe hypertension,continue outpatient medical therapy which includes metoprolol and lisinopril. Diabetes,defer to the primary team. Hyperlipidemia, Will require statin therapy. Thank you for your consultation. Please call me if you have any questions. Jorge Luis Cadena MD, FACP, FACC, FSCAI, FHRS, CCDS Interventional Cardiology Cardiac Electrophysiology Vascular Medicine and Endovascular Interventions Clinical Quality Measures AMI/AHF: ASA po Prior to arrival: Amber Faust MD Apr 27, 2019 08:04
[2019-04-27] MEDS ORDERED: NS IV 1000 ML 1,000 ML IV SCH (08:05)
--- NOTE | 2019-04-27 08:05 | Cardiac Procedure Note-CS/ASA ---
Pre-Procedure Note Pre-Op Procedure Note H&P Reviewed The H&P was reviewed, patient examined and no changes noted. Date H&P Reviewed: Apr 27, 2019 Time H&P Reviewed: 07:30 Conscious Sedation Pre-Proced Time 07:30 ASA Score 3 For ASA 3 and 4: Consider anesthesia and medical clearance. Also, for patients with a history of failed moderate sedation consider anesthesia. Airway Lungs Heart ASA score ASA 1: a normal healthy patient ASA 2: a patient with a mild systemic disease (mid diabetes, controlled hypertension, obesity ASA 3: a patient with a severe systemic disease that limits activity (angina, COPD, prior Myocardial infarction) ASA 4: a patient with an incapacitating disease that is a constant threat to life (CHF, renal failure) ASA 5: a moribund patient not expected to survive 24 hrs. (ruptured aneurysm) ASA 6: a declared brain- patient whose organs are being harvested. For emergent operations, add the letter E after the classification Mallampati Classification Grade 1 Sedation Plan Analgesia, Amnesia, Plan communicated to team members, Discussed options with patient/fam, Discussed risks with patient/fam The patient is an appropriate candidate to undergo the planned procedure, sedation, and anesthesia. The patient immediately re-assessed prior to indication. Amber RO MD Apr 27, 2019 08:05
--- NOTE | 2019-04-27 08:13 | Coronary Angiography Report ---
Coronary Angiography Report DATE OF PROCEDURE: 04/27/19 INDICATION: prolonged chest pain, abnormal exercise stress test. PREOPERATIVE DIAGNOSIS: prolonged chest pain, abnormal exercise stress test. POSTOPERATIVE DIAGNOSIS: patent epicardial coronary arteries. HISTORY: this is a 53-year-old gentleman with history of diabetes, hypertension who had an exercise stress test done for recurrent chest pain which was abnormal. The recommendation was to perform stress testing with nuclear imaging or coronary angiography based on clinical risk stratification. However before further testing could be performed the patient presented to the ER with another episode of chest pain and hypertension.Therefore, the patient was scheduled for coronary angiography. PROCEDURES PERFORMED: 1.Coronary angiography. 2.Left heart catheterization. 3. Aortic arch angiogram, medical necessity: To rule out aortic dissection/aneurysm as a cause of chest pain in a patient with patent epicardial coronary arteries. COMPLICATIONS: None. SPECIMENS: None. ESTIMATED BLOOD LOSS: 10 mL ANESTHESIA: Conscious sedation ANTICOAGULATION: none. CONTRAST: 74 mL. FLUOROSCOPY: 2.9 minutes. FLOUROSCOPY DOSE: 605 mgy. PROCEDURE DETAILS: The patient is a 53 male and was brought to the laboratory tech after informed consent was taken. All the risks and complications were explained in detail; this included the risk of bleeding, vascular damage, stroke, CA and even . The patient was draped and prepped in the usual sterile fashion. patient had an abnormal Leon's test therefore access was gained in the right femoral artery with a 5 Czech sheath. Coronary angiography was done with a JR4 and JL4 catheter. Left heart catheterization and aortic arch angiogram was done with a JR4 catheter. FINDINGS: 1.Left main: patent. 2.LAD: patent. 3.Left circumflex artery: patent. 4.RCA: patent. 5.Left heart catheterization: LV pressure 156/6 mmHg. LVEDP 9 mmHg. Aortic pressure 146/80 mmHg. Normal LV function with no wall motion abnormalities. No gradient across the aortic valve. 6. Aortic arch angiogram: Medical necessity: To rule out aortic aneurysm/disse ction and the patient with patent epicardial coronary arteries. No evidence of proximal aneurysm or dissection. patent proximal segments of the great arteries. CONCLUSIONS: patent epicardial coronary arteries. Normal LV function. Non-cardiac etiology of chest pain. Jorge Luis Cadena MD, FACP, FACC, [facility] Interventional Cardiology Amber CADENA MD Apr 27, 2019 08:13
[2019-04-27] MEDS ORDERED: PATIENT MAY USE OWN MEDS, ALL PO SCH (08:15)
[2019-04-27] MEDS ORDERED: amLODIPine 5 MG (NORVASC) TAB PO SCH (09:00)
[2019-04-27] MEDS ORDERED: SERTRALINE 100 MG (ZOLOFT) TAB PO SCH (09:00)
[2019-04-27] MEDS ORDERED: lisINopril 40 MG (PRINIVIL) TABLET PO SCH (09:00)
[2019-04-27] MEDS ORDERED: ASPIRIN 81 MG CHEW (CHILDREN'S ASA) PO SCH (09:00)
[2019-04-27] MEDS ORDERED: HYDROCHLOROTHIAZIDE 25 MG (HCTZ) TAB PO SCH (09:00)
[2019-04-27] MEDS: meTOprolol TARTRATE 50 MG (LOPRESSOR) TAB PO SCH (09:27)
[2019-04-27] MEDS: ETODOLAC 300 MG (LODINE) CAP PO SCH (09:27)
--- NOTE | 2019-04-27 10:15 | Short Stay Summary-Hospitalist ---
History of Present Illness HPI/Chief Complaint CC: CP with malignant HTN HPI: This is a 53yoWM who forgot to take his BP medicine prior to going to for foot surgery prep who presented to the ER with crushing chest pain and severely elevated BP. Patient was seen by Cardiology and restarted all home meds and was monitored overnight. Patient underwent an uncomplicated cardiac cath which revealed no coronary stenosis. Patient was deemed stable for DC. Source: patient Exam Limitations: no limitations Date Seen 04/27/19 Time Seen by a Provider: 09:00 Attending Physician Skylar Arita Linda K DO Referring Physician Date of Admission Apr 26, 2019 at 14:18 Home Medications & Allergies Home Medications Reviewed patient Home Medication Reconciliation performed by pharmacy medication reconciliations computer service technician and/or nursing. Patients Allergies have been reviewed. Allergies Allergies Coded Allergies No Known Drug Allergies (Unverified05/22/16) Past Cqlhrpu-Ixysds-Uljxkz Hx Past Med/Social Hx: Reviewed Nursing Past Med/Soc Hx, Reviewed and Corrections made Patient Social History Marrital Status: Alcohol Use: Rarely Uses Number of Drinks Today: AA Alcohol Beverage of Choice: Beer Recreational Drug Use: No (OCCASIONALLY) Smoking Status: Current Someday Smoker Type Used: Cigarettes 2nd Hand Smoke Exposure: No Recent Foreign Travel: No Contact w/other who traveled: No Recent Hopitalizations: No Recent Infectious Disease Expo: No Immunizations Up To Date Tetanus Booster (TDap): Unknown Seasonal Allergies Seasonal Allergies: No Past Medical History Surgeries: Abdominal, Appendectomy, Joint Replacement, Orthopedic Cardiac: Hypertension Reproductive: No Sexually Transmitted Disease: No HIV/AIDS: No Gastrointestinal: Chronic Constipation Musculoskeletal: Arthritis, Chronic Back Pain Endocrine: Diabetes, Non-Insulin dep Psychosocial: Depression History of Blood Disorders: No Adverse Reaction to Blood Villanueva: No (N/A) Family History Reviewed Nursing Family Hx Completed stroke 19 MOTHER Hypertension 19 MOTHER Myocardial infarction G8 SISTER Heart Disease, Diabetes, Hypertension Review of Systems Constitutional: see HPI Cardiovascular: chest pain Physical Exam Physical Exam Vital Signs Vital Signs - First Documented 04/27/19 08:20 O2 Flow Rate 2.00 Capillary Refill : Less Than 3 Seconds Height, Weight, BMI Height: 5'6.00" Weight: 269lbs. 2.0oz. 122.347175xe; 43.4 BMI Method:Stated General Appearance: No Apparent Distress, WD/WN, Chronically ill, Obese HEENT: PERRL/EOMI, Pharynx Normal Neck: Non Tender, Supple Respiratory: Lungs Clear, Normal Breath Sounds Cardiovascular: Regular Rate, Rhythm, No Murmur Gastrointestinal: Non Tender, Soft Extremity: Normal Range of Motion, Non Tender Neurologic/Psychiatric: Alert, Oriented x3 Skin: Normal Color, Warm/Dry Results Results/Procedures Labs Laboratory Tests 04/27/19 04:45 04/27/19 05:00 Patient resulted labs reviewed. Short Stay Diagnosis Discharge Diagnosis-Short Stay Admission Diagnosis Chest pain Malignant HTN Obesity Final Discharge Diagnosis Chest pain due to HTN Normal cardiac cath Conclusion Plan DC home Home BP meds Diagnosis/Problems Diagnosis/Problems (1) Chest pain Status: Acute Qualifiers: Qualified Codes: R07.9 - Chest pain, unspecified (2) HTN (hypertension) Status: Acute Clinical Quality Measures AMI/AHF: ASA po Prior to arrival: No DVT/VTE Risk/Contraindication: Risk Factor Score Per Nursin RFS Level Per Nursing on Admit: 2=Moderate SKYLAR ARITA DO Apr 27, 2019 10:15
--- NOTE | 2019-04-27 13:14 | NUR ---
Initial visit: the pt shared about his 3 sons, Jose A, Chidi and Timothy who live in nearby towns. He said Jose A is approx 25 years old and also in the hospital today receiving follow up for cancer treatments. He said Jose A was diagnosed last year. The pt wants to be supportive but describes their relationship as difficult. He shared a phone video he took of a conversation overheard between Jose A and his mother in which Jose A was yelling and swearing at her, and called the pt a pedophile. When I asked the why Jose A was so angry, he stated that Jose A has struggled with anger since he was about 5 years old, after the pt . The pt's ex , Lennie visited him this morning. He said they have a good relationship and continue to help each other in times of crisis. The pt affiliates as [employer], and said he is believes God sparred him of a heart attack.
== END 2019-04-27 12:45 | disposition home or self-care (01) ==
LOC: EDUNIT# 12:59 → ER 13:00 → UNDOADMOB 14:18 → 4TH 14:18 → CATH 14:18 → UNDODISOB 04-27 12:45
PROVIDERS: ATTEND Internal Medicine
DX: R07.9 Chest pain, unspecified (principal); I10 Essential (primary) hypertension; K59.09 Other constipation; M19.91 Primary osteoarthritis, unspecified site; E11.9 Type 2 diabetes mellitus without complications; F32.9 Major depressive disorder, single episode, unspecified; E78.5 Hyperlipidemia, unspecified; R94.39 Abnormal result of other cardiovascular function study; F17.210 Nicotine dependence, cigarettes, uncomplicated; Z79.84 Long term (current) use of oral hypoglycemic drugs; Z96.653 Presence of artificial knee joint, bilateral; E66.9 Obesity, unspecified; Z68.41 Body mass index [BMI] 40.0-44.9, adult
CPT/HCPCS: 36221; 36415; 71045; 80053; 80061; 83735; 83874; 84484; 85025; 85379; 85610; 85730; 93005; 93041; 93306; 93458

== ENCOUNTER → 2019-04-27 | Outpatient (CLI) | payer MEDICARE, OTHER ==
[~2019-04-27] MED LIST changes: +AMLO5TAB9 PO; +CELE-63 PO; +DICL75TA2 PO; +HYDR25TA4 PO; +HYDR28.341 RC; +LISI40TA PO; +METF-399 PO; +METO100T12 PO; +OMG1KC PO; +PRD20T PO; +SERT100T8 PO; +TERB250T16 PO
--- NOTE | 2019-04-27 16:27 | Diagnostic Imaging Report ---
PROCEDURE: MRI lumbar spine. TECHNIQUE: Multiplanar, multisequence MRI of the lumbar spine was performed without contrast. INDICATION: Low back pain. Bilateral leg weakness. COMPARISON: MRI lumbar spine without contrast 10/20/2016. FINDINGS: There are five lumbar type vertebral bodies for the purposes of this report. Normal alignment. Vertebral body heights are preserved. Moderate diffuse degenerative endplate changes. Bone marrow signal is otherwise unremarkable. L1-L2: Annular disc bulge and ligamentous hypertrophy and facet arthropathy all result in moderate to advanced spinal canal narrowing. Moderate to advanced bilateral neural foraminal narrowing. L2-L3: Annular disc bulge, ligamentous hypertrophy and facet arthropathy result in severe spinal canal stenosis. Moderate to advanced bilateral neural foraminal narrowing. L3-L4: Annular disc bulge, ligamentous hypertrophy and facet arthropathy all result in moderate to advanced spinal canal narrowing. Moderate to advanced bilateral neural foraminal narrowing. L4-L5: Advanced facet arthropathy and ligamentous hypertrophy result in moderate spinal canal and bilateral lateral recess narrowing. Moderate to advanced bilateral neural foraminal narrowing. L5-S1: This level is relatively well preserved. There is only mild bilateral neural foraminal narrowing. No spinal canal or lateral recess narrowing. IMPRESSION: 1. Interval progression of spondylotic changes now results in high-grade spinal canal stenosis at L1-L2, L2-L3, L3-L4 and L4-L5. 2. Diffuse high-grade neural foraminal narrowing detailed above. 3. No acute osseous findings. Dictated by: Dictated on workstation # [id number]
== END ==
LOC: RAD 14:59
PROVIDERS: ATTEND Nurse Practitioner Community Health
DX: M47.26 Other spondylosis with radiculopathy, lumbar region (principal); M48.061 Spinal stenosis, lumbar region without neurogenic claudication; M48.07 Spinal stenosis, lumbosacral region; E66.01 Morbid (severe) obesity due to excess calories
CPT/HCPCS: 72148

== ENCOUNTER 2019-05-03 06:39 | Outpatient (CLI) | payer MEDICARE ==
[~2019-05-03] VITALS: Ht 167.6 cm; Wt 120.3 kg
[2019-05-03] MEDS ORDERED: CYCL10TA9 PO (13:36)
[2019-05-03] MEDS ORDERED: GABA800T10 PO (13:36)
[2019-05-03] MEDS ORDERED: DICL100G31 TP (13:36)
== END 2019-05-03 16:00 | disposition home or self-care (01) ==
LOC: PREOP 06:39
PROVIDERS: ATTEND Podiatrist Foot & Ankle Surgery
DX: Z01.818 Encounter for other preprocedural examination (principal)
CPT/HCPCS: 87081

== ENCOUNTER 2019-05-07 06:06 | Day surgery (SDC) | payer MEDICAID, MEDICARE ==
[2019-05-07] VITALS (10 sets, daily range): BP systolic 118–158; BP diastolic 65–86
[~2019-05-07] VITALS: Ht 167.6 cm; Wt 120.4 kg
[~2019-05-07 06:06] MED LIST changes: +CYCL10TA9 PO; +DICL100G31 TP; +GABA800T10 PO
[2019-05-07] MEDS ORDERED: LACTATED RINGERS 1,000 ML IV PRN (06:12)
[2019-05-07] MEDS ORDERED: ceFAZolin INJECTION 1,000 MG in WATER (STERILE) FOR INJECTION 10 ML IV ONE (06:15)
[2019-05-07] MEDS ORDERED: CATHETER FLUSH 10 ML SYR IV PRN (06:30)
[2019-05-07] MEDS ORDERED: DEXAMETHASONE 10 MG/ML (DECADRON) 1 ML VIAL ONE (07:06)
[2019-05-07] MEDS ORDERED: BUP/EPI 0.5% 1:200,000 (MARCAINE) 10ML VIAL IJ ONE (07:06)
[2019-05-07] MEDS ORDERED: BUPIVACAINE 0.5% 30 ML (SENSORCAINE) VIAL ONE (07:08)
[2019-05-07] MEDS ORDERED: fentaNYL INJECTION 100 MCG/2 ML AMP ONE (07:18)
[2019-05-07] MEDS ORDERED: MIDAZOLAM 2 MG/2 ML (VERSED) VIAL ONE (07:18)
[2019-05-07] MEDS ORDERED: proPOfol 200 MG/20 ML (DIPRIVAN) VIAL IV ONE ×2 (07:18→07:49)
[2019-05-07] MEDS ORDERED: LIDOCAINE PF 2% 5 ML (XYLOCAINE) VIAL ONE (07:18)
[2019-05-07] MEDS ORDERED: LIDOCAINE 1% INJ 20 ML 20 ML VIAL ONE (07:34)
--- NOTE | 2019-05-07 07:37 | Progress Note-Pre Operative ---
Pre-Operative Progress Note H&P Reviewed The H&P was reviewed, patient examined and no changes noted. Date Seen by Provider: May 07, 2019 Time Seen by Provider: 07:36 Date H&P Reviewed: May 07, 2019 Time H&P Reviewed: 07:36 Pre-Operative Diagnosis: Hallux Valgus, 2nd Hammertoe, left foot CHENG GOMEZ DPM May 07, 2019 07:37
[2019-05-07] MEDS ORDERED: ONDANSETRON 4 MG/2 ML (SDV) Z0FRAN ONE (07:49)
[2019-05-07] MEDS ORDERED: SEVOFLURANE (ULTANE) 15 ML INHAL SOLN ONE ×2 (07:49→10:01)
[2019-05-07] MEDS ORDERED: LACTATED RINGERS 1,000 ML IV SCH (10:10)
--- NOTE | 2019-05-07 10:10 | Progress Note-Post Operative ---
Post-Operative Progess Note Surgeon (s)/Soft Sugar Operator Head (s) Surgeon CHENG GOMEZ DPM Soft Sugar Operator Head: None Pre-Operative Diagnosis Hallux Valgus, 2nd Hammertoe, left foot Post-Operative Diagnosis Same plus subluxed left 2nd metatarsal phalangeal joint Procedure & Operative Findings Date of Procedure 05/07/19 Procedure Performed/Findings Modified Walter-Jonathan Bunionectomy, Reduction of 2nd digit Hammertoe with arthrodesis and flexor tendon transfer Anesthesia Type General Estimated Blood Loss Estimated blood loss (mL): Minimal Specimens/Packing Specimens Removed none CHENG GOMEZ DPM May 07, 2019 10:10
[2019-05-07] MEDS ORDERED: morphine INJ 10 MG/ML 1ML (SYR OR VIAL) IVP ONE (10:15)
[2019-05-07] MEDS ORDERED: HYDROcodone/APAP 5 MG/325 MG (LORTAB) TAB PO PRN (10:15)
[2019-05-07] MEDS ORDERED: HYDROmorphone 2 MG/ML VIAL (DILAUDID) IV ONE (10:15)
[2019-05-07] MEDS ORDERED: HYDR-3820 PO (10:28)
[2019-05-07] MEDS ORDERED: CEPH500C PO (10:28)
--- NOTE | 2019-05-07 10:31 | Anesthesia-General Post-Op ---
General Patient Condition Mental Status/LOC: Same as Preop Cardiovascular: Satisfactory Nausea/Vomiting: Absent Respiratory: Satisfactory Pain: Controlled Complications: Absent Post Op Complications Complications None Follow Up Care/Instructions Patient Instructions None needed. Anesthesia/Patient Condition Patient Condition Patient is doing well, no complaints, stable vital signs, no apparent adverse anesthesia problems. No complications reported per nursing. AMERICO BLEVINS CRNA May 07, 2019 10:31
[2019-05-07] MEDS: ONDANSETRON 4 MG/2 ML (SDV) Z0FRAN IVP PRN ×2 (11:20→11:39)
--- NOTE | 2019-05-07 12:44 | Diagnostic Imaging Report ---
Indication: Metatarsus primus varus and hallux valgus. Findings: There are postsurgical changes of a bunionectomy. There has also been hammertoe correction of the second toe. There is a lucency about the pin in the proximal phalanx of the second toe. Impression: Stable postsurgical change in left foot as described. Dictated by: Dictated on workstation # [id number]
--- NOTE | 2019-05-07 14:16 | Physical Therapy Ortho Eval ---
PT Orthopedic Evaluation Type of Surgery hallux valgus left Prior Level of Function Current Living Status: Other Family Locomotion (Upon Admit): Independent Pt reports he can get a WC and walker from the [employer]. He has crutches. Subjective Subjective Agrees to PT. Reports he lives in an apartment that he has to go up steps to enter. Pt varied on where he will discharge to. He reports he may go to his ex 's home. Entry Into Home: Stairs With Railing Motor Control Motor Control: Motor Control WNL ROM ROM: WFL Strength Strength: WFL Transfer Transfers (B, C, W/C) (FIM): 5 (6 post evaluation. ) Gait Gait Assistive Device: FWW Right Lower Extremity: Right Weight Bearing Status RLE: Full Weight Bearing Left Lower Extremity: Left Weight Bearing Status LLE: Non Weight Bearing Other Weight Bearing Inst.: instructed pt in importance of NWB left LE Gait (FIM): 5 Distance (FIM): 3=150 ft Summary/Comments Instructed pt in NWB gait using a FWW; pt able to hop with FWW with SBA. He tends to heel walk with ortho shoe in place. Pt able to hop safely, NWB with walker. Pt reports he plans to obtain a FWW from the [employer] in [place]. Pt went up/down a curb steps with education and training and safe technique. Pt able to complete with SBA and cues for safety and NWB status. Treatment Rendered Treatment: Gait Train, Step Train Plan Treatment Plan: Discharge Pt was educated in NWB gait with FWW on level surfaces as well as on steps. Pt tends to walk on his heel but verbalized that he knew he was supposed to hop. No noted or inessa LOB with NWB gait with FWW during this episode. PT/Family Agrees to Plan: Yes Time Time In: 1140 Time Out: 1200 Total Billed Treatment Time: 20 Billed Treatment Time visit EVL 20 KING DAVENPORT PT May 07, 2019 14:16
--- NOTE | 2019-05-07 15:17 | OPERATIVE REPORT ---
DATE OF SERVICE: 05/07/2019 SURGEON: Cheng Gomez DPM PREOPERATIVE DIAGNOSES: 1. Hallux abductovalgus metatarsal primus varus, left. 2. Hammer digit syndrome, left second toe. POSTOPERATIVE DIAGNOSES: 1. Hallux abductovalgus metatarsal primus varus, left. 2. Hammer digit syndrome, left second toe. 3. Subluxed left second metatarsophalangeal joint. PROCEDURES PERFORMED: 1. Modified Walter-Jonathan bunionectomy, left. 2. Reduction of hammertoe with flexor tendon transfer and arthrodesis to the proximal interphalangeal joint, left second toe. WOUND CLASS: Clean. ANESTHESIA: General. HEMOSTASIS: Pneumatic thigh tourniquet at 300 mmHg. INDICATIONS: This is a 53-year-old male who presents complaining of a painful left foot. Conservative therapy is met with unsatisfactory results and the patient is agreeable to surgical intervention. After risks and complications were discussed at length, no guarantees were extended to the patient and he is willing to proceed. DESCRIPTION OF PROCEDURE: The patient was brought back to the operating table, placed in secure supine position. Appropriate timeout was performed. A general anesthetic was then induced. A pneumatic thigh tourniquet was placed on left lower extremity over several layers of padding. The left foot was then anesthetized utilizing 12 mL of 1:1 mixture of 1% Xylocaine, 0.5% Marcaine injected in a [place]illa block as well as a block to the second digit. The left foot was then prepped and draped in the normal sterile manner. The left foot was then elevated, allowed to exsanguinate after which the tourniquet was inflated to 300 mmHg. Attention was then directed to the dorsal aspect of the first metatarsophalangeal joint where a 6 cm longitudinal linear incision was created. The incision was deepened in the same plane with great care to identify and retract all vital neurovascular structures. When necessary, blood vessels were cauterized as encountered. The incision was deepened down to the capsule where a longitudinal capsulotomy was performed. The capsule tissue was reflected exposing the hypertrophic medial eminence to the first metatarsal head, which was resected utilizing a power sagittal saw. Next, blunt dissection was carried out into the first intermetatarsal space where a lateral release was performed. A lateral capsulorrhaphy was performed after resection of a small section of the adductor hallucis conjoint tendon. The fibular sesamoidal ligament was also released. The hallux was then forcibly adducted releasing any additional fibers holding in its abnormal position. Attention was redirected to the medial aspect of the first metatarsal where a Chevron-type osteotomy was performed allowing the capital fragment to translocate from its original position laterally and fixated in its corrected position utilizing a 0.062 threaded K-wire driven from dorsal proximal to plantar distal across the osteotomy with great care not to penetrate the articular cartilage. The K-wire was cut flush with the dorsal aspect of the first metatarsal. The head of the first metatarsal was further contoured and smoothed with a power sagittal saw and power bur. Excellent range of motion was appreciated at the left first metatarsophalangeal joint. There remained some lateral deviation to the left hallux and it was decided to perform an Jonathan type osteotomy. Subperiosteal dissection was carried out to the diaphysis of the proximal phalanx of the left hallux. Two cuts were performed resecting a wedge of bone with the lateral cortices held intact. Wedge of bone was resected and the gap closed correcting the lateral deviation of the left hallux to a large extent. The osteotomy then had 2 relief pilot holes created at the dorsal medial aspect of the osteotomy after which a 28-gauge monofilament wire was passed through the relief pilot hole securing the osteotomy in a closed position. The wound was flushed with copious amounts of normal saline and closure was then performed in layers. Deep closure was performed with 3-0 Vicryl, superficial with 4-0 Vicryl, skin closure with 4-0 Prolene in a simple interrupted type stitch. Attention was then directed to the dorsal aspect of the left second digit where a 5 cm longitudinal linear incision was created from the metatarsophalangeal joint to the distal interphalangeal joint of the toe. The incision was deepened in the same plane with great care to identify and retract all vital neurovascular structures. All the necessary blood vessels were cauterized as encountered throughout the procedure. The extensor tendon was lengthened utilizing a Z-slide lengthening type technique. The extensor tendon was then reflected distally exposing the proximal interphalangeal joint where the head was fashioned into a peg utilizing power sagittal saw and power bur and a hole was created to the middle phalanx with a power bur. This is in preparation for the arthrodesis of the proximal interphalangeal joint with the peg-in-hole type procedure. Attention was then directed to the proximal phalanx where the extensor tendon was reflected proximally and a dorsal capsulorrhaphy performed to the metatarsophalangeal joint. There is a significant mobility to the proximal phalanx on the second metatarsal head even prior to the dorsal capsulorrhaphy, there is ability to sublux the base of the proximal phalanx on the second metatarsal head. It was then decided that a flexor tendon transfer would help reduce the Hammer digit syndrome as well as stabilize the metatarsophalangeal joint. Through the proximal interphalangeal joint, the short and long flexor tendons were identified. The long tendon was then identified and isolated after which it was cut. Dissection was then carried out to the proximal diaphysis after which a 2.5 mm drill was utilized to create a hole from dorsal to plantar at the proximal diaphysis. The flexor tendon was then fed from plantar to dorsal and split in two and sutured with 3-0 Vicryl into the respective medial and lateral soft tissue. Next, a 0.062 smooth K-wire was driven down the toe securing the arthrodesis site in rectus alignment as well as pinning the flexor tendon in its corrected position and stabilizing the base of the proximal phalanx. Excellent bony apposition and fixation was appreciated at the proximal interphalangeal joint arthrodesis site. Good alignment of the digit was also appreciated at this time with some slight medial deviation. The medial collateral ligament was released to the metatarsophalangeal joint. The wound was flushed with copious amounts of normal saline throughout the procedure. A protective ball was placed over the end of the K-wire out the end of the second toe. The wound was then flushed once again and closure was performed in layers. Deep closure was performed with 3-0 Vicryl, superficial closure with 4-0 Vicryl and skin closure with 4-0 Prolene in a horizontal mattress type stitch. Postoperative injection consisted of 10 mL of 0.5% Marcaine plain injected in a local infused into the surgical site. Postoperative dressing consisted of Betadine-soaked Adaptic to the surgical site. Sterile 4 x 4, sterile Kerlix all secured with Coban wrap. The patient tolerated the anesthesia and procedure well and was transported from the operating room to the recovery area with vital signs stable and vascular status intact to all digits of the left foot. The patient is to be nonweightbearing on the left foot. He was given a prescription for a cast, crutches or a walker. He is to leave the dressing dry, clean and intact and follow up in my office in 10 days' period of time or sooner if necessary. Prescription for Keflex and Vicodin was dispensed. Job ID: [id number] DocumentID: [id number] Dictated Date: 05/07/2019 10:29:16 Door Glass Installer Date: 05/07/2019 15:15:26 Dictated By: CHENG GOMEZ DPM
== END 2019-05-07 12:45 | disposition home or self-care (01) ==
LOC: SDC 06:06
PROVIDERS: ATTEND Podiatrist Foot & Ankle Surgery
DX: M20.12 Hallux valgus (acquired), left foot (principal); M20.42 Other hammer toe(s) (acquired), left foot; S93.145A Subluxation of metatarsophalangeal joint of left lesser toe(s), initial encounter; E78.5 Hyperlipidemia, unspecified; E11.9 Type 2 diabetes mellitus without complications; R06.02 Shortness of breath; I20.9 Angina pectoris, unspecified; I10 Essential (primary) hypertension; F32.9 Major depressive disorder, single episode, unspecified; E66.9 Obesity, unspecified; Z68.41 Body mass index [BMI] 40.0-44.9, adult; Z99.89 Dependence on other enabling machines and devices; Z79.899 Other long term (current) drug therapy; Z82.49 Family history of ischemic heart disease and other diseases of the circulatory system
CPT/HCPCS: 73620; 82962

== ENCOUNTER 2019-06-27 23:53 | Emergency (ER) | payer MEDICARE ==
[~2019-06-27] VITALS: Ht 167 cm; Wt 120.0 kg
[~2019-06-27 23:53] MED LIST changes: +CEPH500C PO
[2019-06-28 00:13] LABS: BASOPHILS % (AUTO) 0 % (0-10); EOSINOPHILS # (AUTO) 0.5 10^3/uL (0.0-0.3); EOSINOPHILS % (AUTO) 4 % (0-10); HEMATOCRIT 39 % (40-54); HEMOGLOBIN 13.3 G/DL (13.3-17.7); LYMPHOCYTES # (AUTO) 2.6 X 10^3 (1.0-4.0); LYMPHOCYTES % (AUTO) 22 % (12-44); MEAN CORPUSCULAR HEMOGLOBIN 30 PG (25-34); MEAN CORPUSCULAR HGB CONC 34 G/DL (32-36); MEAN CORPUSCULAR VOLUME 88 FL (80-99); MEAN PLATELET VOLUME 9.4 FL (7.4-10.4); MONOCYTES # (AUTO) 0.8 X 10^3 (0.0-1.0); MONOCYTES % (AUTO) 7 % (0-12); NEUTROPHILS # (AUTO) 8.1 X 10^3 (1.8-7.8); NEUTROPHILS % (AUTO) 67 % (42-75); PLATELET COUNT 230 10^3/uL (130-400); RED CELL DISTRIBUTION WIDTH 12.6 % (10.0-14.5); WHITE BLOOD COUNT 12.1 10^3/uL (4.3-11.0)
[2019-06-28 00:25] LABS: INR 0.9 (0.8-1.4); PROTHROMBIN TIME PATIENT 12.6 SEC (12.2-14.7)
--- NOTE | 2019-06-28 00:25 | ED Chest Pain ---
General Chief Complaint: Chest Pain Stated Complaint: CP Source: patient Exam Limitations: no limitations History of Present Illness Date Seen by Provider: Jun 27, 2019 Time Seen by Provider: 23:56 Initial Comments Here with right-sided chest pain has been going on intermittently over the last several hours. Ultimately EMS was called. He is noted to be hypertensive in the 200s systolic range. Patient does have a long history of hypertension. Does have history of recent heart catheter that was negative. Had foot surgery and April. Denies associated symptoms. EMS did give 4 baby aspirin and initiated nitro paste 1 inch to the left anterior chest wall. Timing/Duration: 4-6 hours, changing over time, intermittent, gone now Severity/Quality: moderate, aching Location: central (right sided) Radiation: no radiation Activities at Onset: none Prior CP/Workup: cardiac cath ASA po VACUUM TESTER CANS: Yes NTG SL VACUUM TESTER CANS: Yes Allergies and Home Medications Allergies Coded Allergies: No Known Drug Allergies (Unverified , 05/22/16) Home Medications Amlodipine Besylate 5 Mg Tablet, 5 MG PO DAILY, (Reported) Celecoxib 200 Mg Capsule, 200 MG PO DAILY, (Reported) Cephalexin 500 Mg Capsule, 1 CAP PO TID Prescribed by: CHENG GOMEZ on 05/07/19 1028 Cyclobenzaprine HCl 10 Mg Tablet, 5 MG PO TID PRN for MUSCLE SPASMS, (Reported) Diclofenac Sodium 100 Gm Gel..gram., 100 GM TP PRN, (Reported) Gabapentin 800 Mg Tablet, 800 MG PO TID, (Reported) Hydrochlorothiazide 25 Mg Tablet, 25 MG PO DAILY, (Reported) Hydrocodone/Acetaminophen 1 Each Tablet, 1 TAB PO Q6H PRN for PAIN-MODERATE Prescribed by: CHENG GOMEZ on 05/07/19 1028 Lisinopril 40 Mg Tablet, 40 MG PO DAILY, (Reported) Metformin HCl 1,000 Mg Tablet, 1,000 MG PO BID, (Reported) Metoprolol Tartrate 100 Mg Tablet, 100 MG PO BID, (Reported) [place] 3 Polyunsat Fatty Acids 1,000 Mg Cap, 1,000 MG PO BID, (Reported) Oxycodone HCl/Acetaminophen 1 Each Tablet, 1 TAB PO TID PRN for PAIN-MODERATE, (Reported) Sertraline HCl 100 Mg Tablet, 100 MG PO DAILY, (Reported) Sildenafil Citrate 100 Mg Tablet, 100 MG PO DAILY PRN for ED, (Reported) Terbinafine HCl 250 Mg Tablet, 250 MG PO DAILY, (Reported) Patient Home Medication List Home Medication List Reviewed: Yes Review of Systems Review of Systems Constitutional: see HPI; No chills, No fever EENTM: No Symptoms Reported Respiratory: No Symptoms Reported Cardiovascular: See HPI, Chest Pain; Denies Edema Gastrointestinal: Denies Nausea, Denies Vomiting Genitourinary: No Symptoms Reported Musculoskeletal: No back pain, No neck pain Skin: no symptoms reported Psychiatric/Neurological: Headache (blood pressures have resolved now.); Denies Weakness Endocrine: No Symptoms Reported All Other Systems Reviewed Negative Unless Noted: Yes Past Lrppeqb-Vufiey-Ympxia Hx Past Med/Social Hx: Reviewed Nursing Past Med/Soc Hx Patient Social History Alcohol Use: Occasionally Uses Number of Drinks Today: AA Alcohol Beverage of Choice: Beer Recreational Drug Use: No Type Used: Cigarettes 2nd Hand Smoke Exposure: No Recent Foreign Travel: No Contact w/Someone Who Travel: No Recent Hopitalizations: Yes (LEFT HAMMER TOE SX) Physical Abuse: No Sexual Abuse: No Immunizations Up To Date Tetanus Booster (TDap): Unknown Date of Influenza Vaccine: Jun 19, 2018 Seasonal Allergies Seasonal Allergies: No Past Medical History Surgeries: Yes (KNEE SCOPES; CARDIAC CATH; HERNIA REPAIR; BILATERAL KNEE REPLACEMENTS) Abdominal, Appendectomy, Joint Replacement, Orthopedic Respiratory: Yes Sleep Apnea Currently Using CPAP: Yes Cardiac: Yes High Cholesterol, Hypertension Neurological: No Reproductive Disorders: No Sexually Transmitted Disease: No HIV/AIDS: No Genitourinary: No Gastrointestinal: Yes Chronic Constipation, Hemorrhoids Musculoskeletal: Yes Arthritis, Chronic Back Pain Endocrine: Yes (OBESITY) Diabetes, Non-Insulin dep HEENT: No (GLASSES) Loss of Vision: Denies Hearing Impairment: Denies Cancer: No Psychosocial: Yes Depression Integumentary: No Blood Disorders: No Adverse Reaction/Blood Tranf: No (N/A) Family Medical History Reviewed Nursing Family Hx Completed stroke 19 MOTHER Hypertension 19 MOTHER Myocardial infarction G8 SISTER Heart Disease, Diabetes, Hypertension Physical Exam Vital Signs Vital Signs - First Documented 06/27/19 23:59 Temp 37.4 Pulse 64 Resp 18 B/P (MAP) 150/90 (110) O2 Delivery Room Air Capillary Refill : Less Than 3 Seconds Height, Weight, BMI Height: 5'6.00" Weight: 265lbs. 6.0oz. 120.227359st; 42.8 BMI Method:Stated General Appearance: No Apparent Distress, WD/WN HEENT: PERRL/EOMI, Pharynx Normal Neck: Non Tender, Supple Respiratory: Lungs Clear, Normal Breath Sounds (IV. I) Cardiovascular: Regular Rate, Rhythm ( only), No Murmur Gastrointestinal: Non Tender, Soft Extremity: Normal Range of Motion, Non Tender Neurologic/Psychiatric: Alert, Oriented x3 Skin: Normal Color, Warm/Dry Progress/Results/Core Measures Results/Orders Lab Results Laboratory Tests Test 06/28/19 00:01 Range/Units White Blood Count 12.1 H 4.3-11.0 10^3/uL Red Blood Count 4.42 4.35-5.85 10^6/uL Hemoglobin 13.3 13.3-17.7 G/DL Hematocrit 39 L 40-54 % Mean Corpuscular Volume 88 80-99 FL Mean Corpuscular Hemoglobin 30 25-34 PG Mean Corpuscular Hemoglobin Concent 34 32-36 G/DL Red Cell Distribution Width 12.6 10.0-14.5 % Platelet Count 230 130-400 10^3/uL Mean Platelet Volume 9.4 7.4-10.4 FL Neutrophils (%) (Auto) 67 42-75 % Lymphocytes (%) (Auto) 22 12-44 % Monocytes (%) (Auto) 7 0-12 % Eosinophils (%) (Auto) 4 0-10 % Basophils (%) (Auto) 0 0-10 % Neutrophils # (Auto) 8.1 H 1.8-7.8 X 10^3 Lymphocytes # (Auto) 2.6 1.0-4.0 X 10^3 Monocytes # (Auto) 0.8 0.0-1.0 X 10^3 Eosinophils # (Auto) 0.5 H 0.0-0.3 10^3/uL Basophils # (Auto) 0.0 0.0-0.1 10^3/uL Prothrombin Time 12.6 12.2-14.7 SEC INR Comment 0.9 0.8-1.4 Activated Partial Thromboplast Time 30 24-35 SEC D-Dimer 0.67 H 0.00-0.49 UG/ML Sodium Level 138 135-145 MMOL/L Potassium Level 4.0 3.6-5.0 MMOL/L Chloride Level 101 98-107 MMOL/L Carbon Dioxide Level 25 21-32 MMOL/L Anion Gap 12 5-14 MMOL/L Blood Urea Nitrogen 20 H 7-18 MG/DL Creatinine 1.12 0.60-1.30 MG/DL Estimat Glomerular Filtration Rate > 60 BUN/Creatinine Ratio 18 Glucose Level 175 H 70-105 MG/DL Calcium Level 9.3 8.5-10.1 MG/DL Corrected Calcium 9.2 8.5-10.1 MG/DL Magnesium Level 1.7 1.6-2.4 MG/DL Total Bilirubin 0.2 0.1-1.0 MG/DL Aspartate Amino Transf (AST/SGOT) 22 5-34 U/L Alanine Aminotransferase (ALT/SGPT) 36 0-55 U/L Alkaline Phosphatase 68 40-136 U/L Myoglobin 36.4 10.0-92.0 NG/ML Troponin I < 0.028 <0.028 NG/ML Total Protein 7.4 6.4-8.2 GM/DL Albumin 4.1 3.2-4.5 GM/DL My Orders Orders - JENNIFER DASH MD Cbc With Automated Diff (06/28/19 00:04) Magnesium (06/28/19 00:04) Chest 1 View, Ap/Pa Only (06/28/19 00:04) Ekg Tracing (06/28/19 00:04) Cardiac Profile 1 (06/28/19 00:04) Comprehensive Metabolic Panel (06/28/19 00:04) Myoglobin Serum (06/28/19 00:04) Protime With Inr (06/28/19 00:04) Partial Thromboplastin Time (06/28/19 00:04) Monitor-Rhythm Ecg Trace Only (06/28/19 00:04) Lipid Panel (06/29/19 06:00) Fibrin Degradation Products (06/28/19 00:04) Vital Signs/I&O 06/27/19 06/27/19 23:59 23:59 Temp 37.4 Pulse 64 Resp 18 B/P (MAP) 150/90 (110) O2 Delivery Room Air Progress Progress Note : Progress Note Seen and evaluated. IV, labs, EKG and chest x-ray ordered. Monitor patient. Reviewed previous heart catheter which shows no significant cardiovascular d isease. 0130: Blood pressure down to the 120s systolic and patient has had no chest pain throughout stay. I do believe his chest pain was related to hypertension that was noted earlier and this has improved. Patient has had recent blood pressure medicine adjustments and may need further adjustments and/or additional agents. That being said, I believe this can be done outpatient. Patient feels comfortable going home. Discharged home with return precautions. Patient verbalize understanding of instructions and agreement with plan. Initial ECG Impression Date: Jun 27, 2019 Initial ECG Impression Time: 23:58 Initial ECG Rate: 64 Initial ECG Rhythm: Normal Sinus Initial ECG Impression: Normal Initial ECG Comparisson: Unchanged Comment Sinus rhythm with normal axis. No evidence of ST elevation [place]. No changes from previous of 04/26/19. Interpreted by me. Departure Impression Primary Impression: Labile hypertension Additional Impression: Chest pain Qualified Codes: R07.9 - Chest pain, unspecified Disposition: 01 HOME, SELF-CARE Condition: Improved Departure-Patient Inst. Decision time for Depature: 01:38 Referrals: TRISHA WELSH DO (PCP) Primary Care Physician [facility] (Family) Primary Care Physician Patient Instructions: High Blood Pressure (DC), Chest Pain (DC) Add. Discharge Instructions: All discharge instructions reviewed with patient and/or family. Voiced understanding. Continue home medications as previously prescribed. Call and make appointment with clinic for recheck of blood pressure and meds as you may need further adjustments. Return for worse pain, fever, vomiting, weakness, breathing prob lems or other concerns as needed. Copy Copies To 1: TRISHA WELSH TIMOTHY D MD Jun 28, 2019 00:24
[2019-06-28 00:27] LABS: ALANINE AMINOTRANSFERASE 36 U/L (0-55); ALBUMIN 4.1 GM/DL (3.2-4.5); ALKALINE PHOSPHATASE 68 U/L (40-136); BILIRUBIN,TOTAL 0.2 MG/DL (0.1-1.0); BUN/CREATININE RATIO 18; CALCIUM 9.3 MG/DL (8.5-10.1); CARBON DIOXIDE 25 MMOL/L (21-32); CHLORIDE 101 MMOL/L (98-107); CREATININE SERUM 1.12 MG/DL (0.60-1.30); GFR ESTIMATED > 60; GLUCOSE 175 MG/DL (70-105); MAGNESIUM 1.7 MG/DL (1.6-2.4); SODIUM 138 MMOL/L (135-145); TOTAL PROTEIN 7.4 GM/DL (6.4-8.2)
--- NOTE | 2019-06-28 01:25 | NUR ---
BP 122/81, DENIES CP AT THIS TIME. NITRO PASTE PLACED BY EMS TO LEFT CHEST REMOVED AT THIS TIME PER DR. DASH ORDERS.
[2019-06-28 01:49] VITALS: BP 114/75
--- NOTE | 2019-06-28 07:36 | Diagnostic Imaging Report ---
INDICATION: Chest pain. Comparison with 04/26/2019. FINDINGS: The lungs are well-aerated and clear. Heart is not enlarged. No pulmonary edema or hilar adenopathy. No pneumothorax or pleural effusion. IMPRESSION: No acute abnormalities. Dictated by: Dictated on workstation # [id number]
== END 2019-06-28 01:51 | disposition home or self-care (01) ==
LOC: EDUNIT# 23:53 → ER 23:55
DX: I10 Essential (primary) hypertension (principal); R07.9 Chest pain, unspecified; E11.9 Type 2 diabetes mellitus without complications; F32.9 Major depressive disorder, single episode, unspecified; E78.00 Pure hypercholesterolemia, unspecified; G47.30 Sleep apnea, unspecified; E66.9 Obesity, unspecified; Z99.89 Dependence on other enabling machines and devices; Z79.84 Long term (current) use of oral hypoglycemic drugs; Z90.49 Acquired absence of other specified parts of digestive tract; Z95.9 Presence of cardiac and vascular implant and graft, unspecified; Z96.653 Presence of artificial knee joint, bilateral; Z82.49 Family history of ischemic heart disease and other diseases of the circulatory system; Z68.41 Body mass index [BMI] 40.0-44.9, adult
CPT/HCPCS: 36415; 71045; 80053; 83735; 83874; 84484; 85025; 85379; 85610; 85730; 93005; 93041

== ENCOUNTER 2020-03-18 11:13 | Inpatient (IN) | payer MEDICARE, MEDICAID ==
[~2020-03-18] VITALS: Ht 166 cm; Wt 107.1 kg
[~2020-03-18 11:13] MED LIST changes: +ACHYD1T PO; -HYDR-3820 PO; -MECL-106 PO; +MECL-149 PO
--- NOTE | 2020-03-18 11:35 | ED Dyspnea ---
General Stated Complaint: COVID SYMPTOMS Source of Information: Patient Exam Limitations: No Limitations History of Present Illness Date Seen by Provider: Mar 18, 2020 Time Seen by Provider: 11:30 Initial Comments To Er by EMS from [facility] with c/o dyspnea+cough+chills x3-4 days. works at [employer], son tested positive for COVID. This gentleman has hx of MELE with CPAP at , DM, HTN. Presented to [facility] today and was noted to be dyspneic with minimal exertion, 88% on room air. He was swabbed and sent to ER. Timing/Duration: 1 Week Severity: Moderate Activities at Onset: None Modifying Factors: Worse With Activity; Improves With Rest Associated Symptoms: Cough Allergies and Home Medications Allergies Coded Allergies: No Known Drug Allergies (Unverified , 05/22/16) Home Medications Amlodipine Besylate 5 Mg Tablet, 5 MG PO DAILY, (Reported) Celecoxib 200 Mg Capsule, 200 MG PO DAILY, (Reported) Cephalexin 500 Mg Capsule, 1 CAP PO TID Prescribed by: CHENG GOMEZ on 05/07/19 1028 Cyclobenzaprine HCl 10 Mg Tablet, 5 MG PO TID PRN for MUSCLE SPASMS, (Reported) Diclofenac Sodium 100 Gm Gel..gram., 100 GM TP PRN, (Reported) Gabapentin 800 Mg Tablet, 800 MG PO TID, (Reported) Hydrochlorothiazide 25 Mg Tablet, 25 MG PO DAILY, (Reported) Hydrocodone Bit/Acetaminophen 1 Each Tablet, 1 TAB PO Q6H PRN for PAIN-MODERATE Prescribed by: CHENG GOMEZ on 05/07/19 1028 Lisinopril 40 Mg Tablet, 40 MG PO DAILY, (Reported) Metformin HCl 1,000 Mg Tablet, 1,000 MG PO BID, (Reported) Metoprolol Tartrate 100 Mg Tablet, 100 MG PO BID, (Reported) Lynn 3 Polyunsat Fatty Acids 1,000 Mg Cap, 1,000 MG PO BID, (Reported) Oxycodone HCl/Acetaminophen 1 Each Tablet, 1 TAB PO TID PRN for PAIN-MODERATE, (Reported) Sertraline HCl 100 Mg Tablet, 100 MG PO DAILY, (Reported) Sildenafil Citrate 100 Mg Tablet, 100 MG PO DAILY PRN for ED, (Reported) Terbinafine HCl 250 Mg Tablet, 250 MG PO DAILY, (Reported) Patient Home Medication List Home Medication List Reviewed: Yes Review of Systems Review of Systems Constitutional: see HPI, chills EENTM: see HPI Respiratory: see HPI, cough, short of breath Cardiovascular: no symptoms reported; No chest pain Genitourinary: no symptoms reported Musculoskeletal: no symptoms reported Skin: no symptoms reported Psychiatric/Neurological: No Symptoms Reported Endocrine: See HPI Past Sfpoozv-Lexjzh-Aibnvw Hx Patient Social History Alcohol Beverage of Choice: Beer Type Used: Cigarettes 2nd Hand Smoke Exposure: No Recent Hopitalizations: Yes (LEFT HAMMER TOE SX) Immunizations Up To Date Tetanus Booster (TDap): Unknown Date of Influenza Vaccine: Jun 19, 2018 Seasonal Allergies Seasonal Allergies: No Past Medical History Surgeries: Yes (KNEE SCOPES; CARDIAC CATH; HERNIA REPAIR; BILATERAL KNEE REPLACEMENTS) Abdominal, Appendectomy, Joint Replacement, Orthopedic Respiratory: Yes Sleep Apnea Currently Using CPAP: Yes Cardiac: Yes High Cholesterol, Hypertension Neurological: No Reproductive Disorders: No Sexually Transmitted Disease: No HIV/AIDS: No Genitourinary: No Gastrointestinal: Yes Chronic Constipation, Hemorrhoids Musculoskeletal: Yes Arthritis, Chronic Back Pain Endocrine: Yes (OBESITY) Diabetes, Non-Insulin dep HEENT: No (GLASSES) Loss of Vision: Denies Hearing Impairment: Denies Cancer: No Psychosocial: Yes Depression Integumentary: No Blood Disorders: No Adverse Reaction/Blood Tranf: No (N/A) Family Medical History Completed stroke 19 MOTHER Hypertension 19 MOTHER Myocardial infarction G8 SISTER Heart Disease, Diabetes, Hypertension Physical Exam Vital Signs Vital Signs - First Documented 03/18/20 11:18 Temp 37.0 Pulse 79 Resp 13 B/P (MAP) 147/105 (119) Pulse Ox 99 O2 Delivery Room Air Capillary Refill : Height, Weight, BMI Height: 5'6.00" Weight: 265lbs. 6.0oz. 120.851875yr; 43.00 BMI Method:Stated General Appearance: No Apparent Distress, WD/WN, Other (100% Spo2 on 4 liters. The supplemental oxygen is helping he states. no distress. ) HEENT: PERRL/EOMI, Normal ENT Inspection Neck: Full Range of Motion, Normal Inspection Respiratory: No Accessory Muscle Use, No Respiratory Distress Cardiovascular: Regular Rate, Rhythm, Normal Peripheral Pulses Gastrointestinal: Normal Bowel Sounds, Non Tender, Soft Extremity: Normal Capillary Refill, Normal Inspection Neurologic/Psychiatric: Alert, Oriented x3 Skin: Normal Color, Warm/Dry Focused Exam Lactate Level 7/7/20 11:29: Lactic Acid Level 1.03 Lactic Acid Level Laboratory Tests Test 03/18/20 11:29 Lactic Acid Level 1.03 MMOL/L (0.50-2.00) Progress/Results/Core Measures Results/Orders Lab Results Laboratory Tests Test 03/18/20 11:29 03/18/20 11:43 Range/Units White Blood Count 6.5 4.3-11.0 10^3/uL Red Blood Count 4.74 4.35-5.85 10^6/uL Hemoglobin 14.1 13.3-17.7 G/DL Hematocrit 41 40-54 % Mean Corpuscular Volume 86 80-99 FL Mean Corpuscular Hemoglobin 30 25-34 PG Mean Corpuscular Hemoglobin Concent 35 32-36 G/DL Red Cell Distribution Width 12.6 10.0-14.5 % Platelet Count 155 130-400 10^3/uL Mean Platelet Volume 9.9 7.4-10.4 FL Neutrophils (%) (Auto) 75 42-75 % Lymphocytes (%) (Auto) 15 12-44 % Monocytes (%) (Auto) 10 0-12 % Eosinophils (%) (Auto) 0 0-10 % Basophils (%) (Auto) 0 0-10 % Neutrophils # (Auto) 4.9 1.8-7.8 X 10^3 Lymphocytes # (Auto) 1.0 1.0-4.0 X 10^3 Monocytes # (Auto) 0.6 0.0-1.0 X 10^3 Eosinophils # (Auto) 0.0 0.0-0.3 10^3/uL Basophils # (Auto) 0.0 0.0-0.1 10^3/uL D-Dimer 0.46 0.00-0.49 UG/ML Sodium Level 133 L 135-145 MMOL/L Potassium Level 4.2 3.6-5.0 MMOL/L Chloride Level 96 L 98-107 MMOL/L Carbon Dioxide Level 25 21-32 MMOL/L Anion Gap 12 5-14 MMOL/L Blood Urea Nitrogen 20 H 7-18 MG/DL Creatinine 0.97 0.60-1.30 MG/DL Estimat Glomerular Filtration Rate > 60 BUN/Creatinine Ratio 21 Glucose Level 219 H 70-105 MG/DL Lactic Acid Level 1.03 0.50-2.00 MMOL/L Calcium Level 9.3 8.5-10.1 MG/DL Corrected Calcium 9.4 8.5-10.1 MG/DL Total Bilirubin 0.4 0.1-1.0 MG/DL Aspartate Amino Transf (AST/SGOT) 21 5-34 U/L Alanine Aminotransferase (ALT/SGPT) 28 0-55 U/L Alkaline Phosphatase 65 40-136 U/L C-Reactive Protein High Sensitivity 4.43 H 0.00-0.50 MG/DL B-Type Natriuretic Peptide 11.9 <100.0 PG/ML Total Protein 7.2 6.4-8.2 GM/DL Albumin 3.9 3.2-4.5 GM/DL Procalcitonin 0.07 <0.10 NG/ML My Orders Orders - FABIANA CARRINGTON APRN Cbc With Automated Diff (03/18/20 11:28) Procalcitonin (Pct) (03/18/20 11:28) Comprehensive Metabolic Panel (03/18/20 11:28) Hs C Reactive Protein (03/18/20 11:28) Fibrin Degradation Products (03/18/20 11:28) Chest 1 View, Ap/Pa Only (03/18/20 11:28) Ed Iv/Invasive Line Start (03/18/20 11:28) BNP (03/18/20 11:28) Covid-19 External Lab Results (03/18/20 11:28) Isolation Central Supply Req (03/18/20 11:28) Ekg Tracing (03/18/20 11:36) Blood Culture (03/18/20 11:36) Lactic Acid Analyzer (03/18/20 11:36) Coronavirus Sars-Cov-2 So 2018 (03/18/20 11:40) Vital Signs/I&O 03/18/20 11:18 Temp 37.0 Pulse 79 Resp 13 B/P (MAP) 147/105 (119) Pulse Ox 99 O2 Delivery Room Air Diagnostic Imaging Diagonstic Imaging: Xray Plain Films/CT/US/NM/MRI: chest Comments NAME: RITA THOMAS [facility] REC#: [id number] PT STATUS: REG ER : 1965 PHYSICIAN: FABIANA CARRINGTON APRN ADMIT DATE: 03/18/20/ER Draft Date of Exam:03/18/20 CHEST 1 VIEW, AP/PA ONLY EXAMINATION: Chest 1 view HISTORY: Shortness of breath. Cough. COMPARISON: Chest radiograph on 06/28/2019. FINDINGS: Lung volumes are low. Patchy opacities are seen in the bilateral lung bases. No pleural effusion or pneumothorax. Stable cardiac silhouette. No acute osseous abnormalities. IMPRESSION: 1. Patchy opacities in the lung bases, which may represent inflammatory or infectious etiology. No pleural effusion. 2. Low lung volumes. Dictated on workstation # [id number] Dict: 03/18/20 1204 Trans: 03/18/20 1206 [id number] Interpreted by: DAVID HERNADEZ DO Electronically signed by: Departure Communication (Admissions) Time/Spoke to Admitting Phy: 13:[address] sanderson, will admit to [facility]. 1300-He is 96% on two liters per nasal cannula. Given apap 1gm for headache. RR about 25-30. still no distress. Impression Primary Impression: Hypoxia Additional Impression: COVID PUI Disposition: 43 DISC/XFER TO A [facility] Condition: Stable Admissions Decision to Admit Reason: Admit from ER (General) Decision to Admit/Date: Mar 18, 2020 Time/Decision to Admit Time: 11:35 Departure-Patient Inst. Referrals: TRISHA WELSH DO (PCP) Primary Care Physician [facility] (Family) Primary Care Physician FABIANA CARRINGTON APRN Mar 18, 2020 11:35
[2020-03-18 11:50] LABS: BASOPHILS % (AUTO) 0 % (0-10); EOSINOPHILS % (AUTO) 0 % (0-10); HEMATOCRIT 41 % (40-54); HEMOGLOBIN 14.1 G/DL (13.3-17.7); LYMPHOCYTES % (AUTO) 15 % (12-44); MEAN CORPUSCULAR HEMOGLOBIN 30 PG (25-34); MEAN CORPUSCULAR HGB CONC 35 G/DL (32-36); MEAN CORPUSCULAR VOLUME 86 FL (80-99); MEAN PLATELET VOLUME 9.9 FL (7.4-10.4); MONOCYTES # (AUTO) 0.6 X 10^3 (0.0-1.0); MONOCYTES % (AUTO) 10 % (0-12); NEUTROPHILS # (AUTO) 4.9 X 10^3 (1.8-7.8); NEUTROPHILS % (AUTO) 75 % (42-75); PLATELET COUNT 155 10^3/uL (130-400); RED CELL DISTRIBUTION WIDTH 12.6 % (10.0-14.5); WHITE BLOOD COUNT 6.5 10^3/uL (4.3-11.0)
[2020-03-18 12:00] LABS: ALBUMIN 3.9 GM/DL (3.2-4.5); CHLORIDE 96 MMOL/L (98-107); POTASSIUM 4.2 MMOL/L (3.6-5.0); SODIUM 133 MMOL/L (135-145)
[2020-03-18 12:01] LABS: CALCIUM 9.3 MG/DL (8.5-10.1)
[2020-03-18 12:03] LABS: GLUCOSE 219 MG/DL (70-105); TOTAL PROTEIN 7.2 GM/DL (6.4-8.2)
[2020-03-18 12:04] LABS: CARBON DIOXIDE 25 MMOL/L (21-32)
[2020-03-18 12:05] LABS: BILIRUBIN,TOTAL 0.4 MG/DL (0.1-1.0)
[2020-03-18 12:06] LABS: ALKALINE PHOSPHATASE 65 U/L (40-136)
[2020-03-18 12:07] LABS: BUN/CREATININE RATIO 21; CREATININE SERUM 0.97 MG/DL (0.60-1.30); GFR ESTIMATED > 60
--- NOTE | 2020-03-18 12:07 | Diagnostic Imaging Report ---
EXAMINATION: Chest 1 view HISTORY: Shortness of breath. Cough. COMPARISON: Chest radiograph on 06/28/2019. FINDINGS: Lung volumes are low. Patchy opacities are seen in the bilateral lung bases. No pleural effusion or pneumothorax. Stable cardiac silhouette. No acute osseous abnormalities. IMPRESSION: 1. Patchy opacities in the lung bases, which may represent inflammatory or infectious etiology. No pleural effusion. 2. Low lung volumes. Dictated by: Dictated on workstation # [id number]
[2020-03-18 12:09] LABS: ALANINE AMINOTRANSFERASE 28 U/L (0-55)
[2020-03-18] MEDS ORDERED: ACETAMINOPHEN 500 MG TAB (TYLENOL) ONE (12:37)
[2020-03-18] MEDS ORDERED: CATHETER FLUSH 10 ML SYR IV PRN (13:00)
--- NOTE | 2020-03-18 13:33 | NUR ---
RITA THOMAS admitted to room 423-1, with an admitting diagnosis of , on 03/18/20 from [facility] ED via wheelchair, accompanied by staff. RITA THOMAS introduced to surroundings, call light, bed controls, phone, TV, temperature control, lights, meal times, smoking policy, visitor policy, side rail policy, bathrooms and showers. Patient Rights given to patient in the handbook. RITA THOMAS verbalizes understanding that [facility] is not responsible for the loss or damage to any personal effects or valuables that are kept in the patients possession during their hospitalization. The following Patient Care Plans were discussed with the patient: Discharge Planning, medications, pain management, and dehydration. RITA THOMAS verbalizes understanding of Interdisciplinary Patient Education. Patient and/or family were informed about the Rapid Response Team and its purpose.
[2020-03-18 13:36] VITALS: BP 132/87
[2020-03-18] MEDS: ENOXAPARIN 40 MG/0.4 ML (LOVENOX) SYR SC SCH (13:37)
[2020-03-18] MEDS: LACTATED RINGERS 1,000 ML IV SCH ×2 (13:37→20:37)
[2020-03-18 13:52] VITALS: BP 132/87
--- OUTSIDE RECORDS SUMMARY | 2020-03-18 14:33 | XMS REPORT | Clinical Summary ---
Author Author [facility] Organization [facility] Address Unknown Phone Unavailable Care Team Providers Care Band Edger Name Role Phone David Mercedes CAD ENGINEER PCP Source Comments Some departments are not documenting in the electronic medical record. If you d o not see the information that you expected, contact Release of Information in [facility] [employer] Information Management department at [phone] for further assistan ce in locating additional records.[facility] Allergies No Known Allergies Medications Not on file Active Problems Not on file Social History Date Tobacco Use Types Packs/Day Years Used Never Smoker Smokeless Tobacco: Never Used Drinks/Week oz/Week Comments Alcohol Use Yes Sex Assigned at Date Recorded Not on file Industry Job Start Date Occupation Not on file Not on file Not on file Travel End Travel History Travel Start No recent travel history available. Last Filed Vital Signs Reading Time Taken Comments Vital Sign 164/70 10/03/2017 6:00 AM CLINICAL DOCUMENTATION SPECIALIST Blood Pressure 78 10/03/2017 6:00 AM CLINICAL DOCUMENTATION SPECIALIST Pulse 36.4 C (97.5 F) 10/03/2017 12:55 AM CLINICAL DOCUMENTATION SPECIALIST Temperature - - Respiratory Rate 97% 10/03/2017 6:00 AM CLINICAL DOCUMENTATION SPECIALIST Oxygen Saturation - - Inhaled Oxygen Concentration 120.2 kg (265 lb) 10/03/2017 12:55 AM CLINICAL DOCUMENTATION SPECIALIST Weight - - Height - - Body Mass Index Plan of Treatment Health Maintenance Due Date Last Done Comments HIV SCREENING 1978 DTAP/TDAP VACCINES (1 - 1981 Tdap) HEPATITIS C SCREENING 1981 PHYSICAL (COMPREHENSIVE) 1981 EXAM COLORECTAL CANCER 2013 SCREENING SHINGLES RECOMBINANT 2013 VACCINE (1 of 2) INFLUENZA VACCINE 06/12/2020 Results Not on filefrom Last 3 Months Insurance Type Payer Benefit Subscriber ID Effective Phone Address Plan / Dates Group Medicaid [facility] MEDICAID [place] xxxxxxxxxxx 2010- [facility] Present HEALTH Advance Directives Patient Anaesthetic Technician Explanation Type Date Recorded Advance 10/03/2017 12:49 AM Directive/DPOA
--- OUTSIDE RECORDS SUMMARY | 2020-03-18 14:33 | XMS REPORT | Encounter Summary ---
Author Author [facility] Organization [facility] Address Unknown Phone Unavailable Care Team Providers Care Digitizer Operator Name Role Phone PCP Unavailable Encounter Details Care Team Description Date Type Department Silver Min MD [address] [facility] [address] [place] [address] [phone] 11/15/2016 Hist-Transcript [facility] Encounter Specialists [address] [facility] [address] [place], [place] [id number] Social History Date Tobacco Use Types Packs/Day Years Used Never Assessed Sex Assigned at Date Recorded Not on file Industry Job Start Date Occupation Not on file Not on file Not on file Travel End Travel History Travel Start No recent travel history available. documented as of this encounter Progress Notes * Silver Min MD - 11/15/2016 10:39 AM MEASUREMENT OPERATOR imported MRI Lumbar 2-8-17 [address] [place] [id number] -Arlene Floyd, November 15, 2016 10:40 AM UREMENT OPERATOR documented in this encounter Plan of Treatment Not on filedocumented as of this encounter Visit Diagnoses Not on filedocumented in this encounter
--- OUTSIDE RECORDS SUMMARY | 2020-03-18 14:33 | XMS REPORT | Encounter Summary ---
Author Author [facility] Organization [facility] Address Unknown Phone Unavailable Care Team Providers Care Webbing Inspector Name Role Phone PCP Unavailable Reason for Visit * Reason Comments Follow-up ALIE Low back/DOI 015/Scheduled by Xiomara with WC Atty [phone]/Court ordered by Judge Db strauss/Docket # [id number]/WC atty Rommel Ames/Pt Atty David Saldana/07-14 crsTVX: Appt. Reminder Encounter Details Care Team Description Date Type Department Silver Min MD [address] [facility] [address] [place] [address] 11/15/2016 Hist-[facility]ointmen [facility] [address] [facility] [address] [place] [address] Social History Date Tobacco Use Types Packs/Day Years Used Never Assessed Sex Assigned at Date Recorded Not on file Industry Job Start Date Occupation Not on file Not on file Not on file Travel End Travel History Travel Start No recent travel history available. documented as of this encounter Plan of Treatment Not on filedocumented as of this encounter Visit Diagnoses Not on filedocumented in this encounter
--- OUTSIDE RECORDS SUMMARY | 2020-03-18 14:33 | XMS REPORT | Encounter Summary ---
Author Author Organization Address Unknown Phone Unavailable Care Team Providers Care Medical Records Field Technician Name Role Phone PCP Unavailable Encounter Details Care Team Description Date Type Department Silver iMn MD [address] [facility] [address] [place], [place] [id number] 08/03/2016 Hist-Telephone [facility] [address] [facility] [address] [place] [address] Social History Date Tobacco Use Types Packs/Day Years Used Never Assessed Sex Assigned at Date Recorded Not on file Industry Job Start Date Occupation Not on file Not on file Not on file Travel End Travel History Travel Start No recent travel history available. documented as of this encounter Miscellaneous Notes * Clinic Note - Silver Min MD - 08/03/2016 2:41 PM KINDERGARTEN TUTOR Scheduled by Xiomara with Atty at [phone] SONIA APPOINTMENT [place] or 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
--- OUTSIDE RECORDS SUMMARY | 2020-03-18 14:33 | XMS REPORT | Encounter Summary ---
Author Author [facility] Organization [facility] Address Unknown Phone Unavailable Care Team Providers Care Waist Pleater Name Role Phone PCP Unavailable Encounter Details Care Team Description Date Type Department Silver Min MD [address] [facility] [address] [place] [address] [phone] 03/20/2018 [facility] [address] [facility] [address] [place], [place] [id number] Social History Date Tobacco Use Types Packs/Day Years Used Never Assessed Sex Assigned at Date Recorded Not on file Industry Job Start Date Occupation Not on file Not on file Not on file Travel End Travel History Travel Start No recent travel history available. documented as of this encounter Miscellaneous Notes * Clinic Note - Silver Min MD - 03/20/2018 4:25 PM CDT Phone Note Other Incoming Call Summary of call: Received phone call from Xiomara Fields with attorneys office [phone]. I gave her additional depo dates for Dr. Min. April 24 to the 09 17 and May 01 to . Sent her email with the dates. Call taken by: Naomy Wheeler on March 20, 2018 4:26 PM Follow-up for Phone Call Follow-up Details: Dr. Jolley depo is scheduled for 04-25-2018 at 3:00 pm. Follow-up by: Naomy Wheeler on March 21, 2018 3:39 PM documented in this encounter Plan of Treatment Not on filedocumented as of this encounter Visit Diagnoses Not on filedocumented in this encounter
--- OUTSIDE RECORDS SUMMARY | 2020-03-18 14:33 | XMS REPORT | Encounter Summary ---
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 frequent low back bendin g or twisting and not perform lifting in excess of 30 pounds, or push-pulling in excess of 60 pounds. I would not recommend any additional restrictions in direct relationship to his 2015 reported vocationally event. The Sixth Edition of the AMA, Guides to the Evaluation of Permanent Impairment w as utilized. The above statements were made after obtaining the historical information, perfo rming the physical examination and reviewing available records. cc Rommel Saldana [employer] documented in this encounter Plan of Treatment Not on filedocumented as of this encounter Visit Diagnoses Not on filedocumented in this encounter
--- OUTSIDE RECORDS SUMMARY | 2020-03-18 14:33 | XMS REPORT | Clinical Summary ---
Author Author [facility] Organization [facility] Address Unknown Phone Unavailable Care Team Providers Care Rack Carrier Name Role Phone PCP Unavailable Allergies Not on File Medications Not on file Active Problems Not on file Social History Date Tobacco Use Types Packs/Day Years Used Never Assessed Sex Assigned at Date Recorded Not on file Industry Job Start Date Occupation Not on file Not on file Not on file Travel End Travel History Travel Start No recent travel history available. Last Filed Vital Signs Not on file Plan of Treatment Not on file Results Not on filefrom Last 3 Months
--- OUTSIDE RECORDS SUMMARY | 2020-03-18 14:33 | XMS REPORT ---
Author Author George WAYNE Organization [facility] Address [address] [place] [address] Care Team Providers Care Differential Specialist Name Role Phone REYNA WAYEN Unavailable PROBLEMS Type Condition ICD9-CM Code UBD55-BR Code Onset Dates Condition S tatus SNOMED Code Problem Hypertension, benign I10 Active 07278121 Problem Other chronic pain G89.29 Active 8 4213433 Problem Lumbago with sciatica, unspecified side M54.40 Active 529043268 Problem Controlled type 2 diabetes m ellitus without complication, without long- term current use of insulin E11.9 Active 807755792 Problem Lumbago with sciatica, right side M54.41 Active 941154676 Problem Adjustment disorder with disturbance of emotion F4 3.29 Active 56883331 Problem MELE (obstructive sleep apnea) G47.33 Active 19890964 Problem Non morbid obesity E66.9 Active 4 65777459 Problem Hammer toe of left foot M20.42 Active 097686479 Problem Mood disorder F39 Active 367865 05 Problem Deformity of left foot M21.962 Active 936185618 Problem Lumbago with sciatica, left side M54.42 Active 355955104 Problem Erectile dysfunction due to diseases classified elsewhere N52.1 Active 010793281 Problem Obstructive sleep apnea syndrome G47.33 Active 28174148 Problem Type 2 diabetes mellitus wit h diabetic neuropathy, without long-term current use of insulin E11.40 Active 27251 006 Problem Essential hypertension I10 Active 59682814 ALLERGIES No Information ENCOUNTERS Encounter Location Date Diagnosis [facility] [address] [facility] [id number] [address] [place] [id number] May, [facility] [address] [facility] [id number] [address] [place] [phone] May, [facility] [address] [facility] [id number] [address] [place] [address] Apr, Lumbago with sciatica, unspe cified side M54.40 [facility] [address] [facility] [id number] [address] [place] [address] Apr, [facility] [address] [facility] [id number] [address] [place] [address] Apr, [address] [address] Apr, Hammer toe of left foot M20.42 ; Chest p ain R07.9 ; Preoperative examination Z01.818 and Morbid obesity E66.01 [facility] [address] [facility] [id number] [address] [place] [address] Apr, Morbid obesity E66.01 ; Bron chitis J40 and High risk medications (not anticoagulants) long-term use Z79.899 [facility] [address] [facility] [id number] [address] [place] [address] Apr, Lumbago with sciatica, unspe cified side M54.40 [facility] [address] [facility] [id number] [address] [place] [address] Apr, [facility] [address] [facility] [id number] [address] [place] [address] Mar, Lumbar neuritis M54.16 and M orbid obesity E66.01 [facility] [address] [facility] [id number] [address] [place] [address] Mar, [facility] [address] [facility] [id number] [address] [place] [address] Mar, [facility] [address] [facility] [id number] [address] [place] [address] Mar, Lumbago with sciatica, unspe cified side M54.40 [facility] [address] [facility] [id number] [address] [place] [address] Mar, Morbid obesity E66.01 ; Coug marco R05 ; 2+ pitting edema R60.9 and Controlled type 2 diabetes mellitus without complication, without long-term current use of insulin E11.9 [facility] [address] [id number] [address] [place] [address] Feb, [facility] [address] [facility] [id number] [address] [place] [address] Feb, Lumbago with sciatica, unspe cified side M54.40 [facility] [address] [id number] [address] [place] [address] Feb, [facility] [address] [id number] [address] [place] [address] Feb, Controlled type 2 diabetes m ellitus without complication, without long-term current use of insulin E11.9 and Morbid obesity E66.01 [place] [address] [id number] [address] [place] [address] January, Deformity of left foot M21.9 62 [place] [address] [id number] [address] [place] [address] January, [facility] [address] [id number] [address] [place] [address] January, Lumbago with sciatica, unspe cified side M54.40 [facility] [address] [id number] [address] [place] [address] January, [facility] [address] [id number] [address] [place] [address] January, Lumbago with sciatica, unspe cified side M54.40 [facility] [address] [id number] [address] [place] [address] January, [facility] [address] [facility] [id number] [address] [place] [address] January, Acute right-sided thoracic b ack pain M54.6 [facility] [address] [id number] [address] [place] [address] January, Acute right-sided thoracic b ack pain M54.6 [facility] [address] [facility] [id number] [address] [place] [address] January, Chest pain, unspecified type R07.9 ; Morbid obesity E66.01 and Scabies B86 [facility] [address] [facility] [id number] [address] [place] [address] Dec, Lumbago with sciatica, unspe cified side M54.40 [place] [address] [facility] [id number] [address] [place] [address] Dec, Toenail fungus B35.1 [place] [address] [place] [id number] [place] [address] Dec, Toenail fungus B35.1 [place] [address] [place] [id number] [address] [place] [address] Dec, Acute right-sided thoracic b ack pain M54.6 [place] [address] [place] [id number] [address] [place] [address] Dec, Lumbago with sciatica, unspe cified side M54.40 [place] [address] [place] [id number] [address] [place] [address] Nov, Hammer toe of left foot M20. 42 ; Deformity of left foot M21.962 and Type 2 diabetes mellitus with diabetic neuropathy, without long-term current use of insulin E11.40 [facility] [address] [place] [id number] [address] [place] [address] Nov, Acute right-sided thoracic b ack pain M54.6 ; Morbid obesity E66.01 and Rt flank pain R10.9 [place] [address] [facility] [id number] [address] [place] [address] Nov, Lumbago with sciatica, unspe cified side M54.40 [place] [address] [place] [id number] [address] [place] [address] Oct, Lumbago with sciatica, unspe cified side M54.40 [place] [address] [facility] [id number] [address] [place] [address] Sep, Lumbago with sciatica, unspe cified side M54.40 [place] [address] [place] [id number] [address] [place] [address] Sep, [place] [address] [facility] [id number] [address] [place] [address] Sep, BMI 40.0-44.9, adult Z68.41 ; Lumbago with sciatica, left side M54.42 ; Lumbago with sciatica, right side M54.41 and Other chronic pain G89.29 [place] [address] [place] [id number] [address] [place] [address] Aug, Lumbago with sciatica, unspe cified side M54.40 [place] [address] [place] [address] Aug, Type 2 diabetes mellitus wit h diabetic neuropathy, without long- term current use of insulin E11.40 ; Hammer toe of left foot M20.42 ; Hypertension, benign I10 and Frequent headaches R51 [place] [address] [place] [id number] [address] [place] [address] Jul, Lumbago with sciatica, unspe cified side M54.40 [place] [address] [place] [address] Jul, [place] [address] [place] [address] Jul, Essential hypertension I10 a nd Controlled type 2 diabetes mellitus without complication, without long-term current use of insulin E11.9 [place] [address] [facility] [id number] [address] [place] [address] Jul, Essential hypertension I10 ; Controlled type 2 diabetes mellitus without complication, without long-term current use of insulin E11.9 and BMI 40.0-44.9, adult Z68.41 [facility] [address] [id number] [address] [place] [address] Jul, Dysfunction of left eustachi an tube H69.82 [facility] [address] [id number] [address] [place] [address] Jul, Lumbago with sciatica, unspe cified side M54.40 [facility] [address] [id number] [address] [place] [id number] Jun, Dental examination Z01.20 [facility] [address] [id number] [address] [place] [address] Jun, Lumbago with sciatica, unspe cified side M54.40 and Encounter for immunization Z23 [facility] [address] [facility] [id number] [address] [place] [address] Jun, Dysfunction of left eustachi an tube H69.82 [place] [id number] [facility] [id number] [place] [address] [id number] Jun, Dental examination Z01.20 [facility] [address] [facility] [id number] [address] [place] [address] Jun, Other chronic pain G89.29 [facility] [address] [facility] [id number] [address] [place] [address] [phone] Jun, Dental examination Z01.20 [facility] [address] [id number] [address] [place] [address] Jun, [facility] [address] [facility] [id number] [address] [place] [address] Jun, Bronchitis J40 ; Dysfunction of left eustachian tube H69.82 and BMI 45.0-49.9, adult Z68.42 [facility] [address] [id number] [address] [place] [address] Jun, Lumbago with sciatica, unspe cified side M54.40 [facility] [address] [place] [id number] [address] [place] [address] May, Type 2 diabetes mellitus wit h diabetic neuropathy, without long- term current use of insulin E11.40 and Hypertension, benign I10 [facility] [address] [place] [address] May, Lumbago with sciatica, unspe cified side M54.40 [facility] [address] [address] Apr, [place] [address] [address] Apr, Controlled type 2 diabetes m ellitus without complication, without long-term current use of insulin E11.9 ; Insect bite (nonvenomous), right ankle, initial encounter S90.561A ; Local infection of the skin and subcutaneous tissue, unspecified L08.9 ; Acute swimmer''s ear of left side H60.332 and BMI 45.0-49.9, adult Z68.42 [place] [address] [address] Apr, Lumbago with sciatica, unspe cified side M54.40 [place] [address] [place] [id number] [address] [place] [address] Mar, [place] [address] [address] Mar, Lumbago with sciatica, unspe cified side M54.40 [place] [address] [place] [id number] [address] [place] [address] Feb, Lumbago with sciatica, unspe cified side M54.40 [place] [address] [place] [address] Feb, BMI 45.0-49.9, adult Z68.42 and Obstructive sleep apnea syndrome G47.33 [place] [address] [address] January, Lumbar neuritis M54.16 [facility] [address] [facility] [id number] [address] [place] [address] January, Lumbago with sciatica, unspe cified side M54.40 [facility] [address] [place] [id number] [address] [place] [address] Dec, Controlled type 2 diabetes m taraitus without complication, without long-term current use of insulin E11.9 ; Erectile dysfunction due to diseases classified elsewhere N52.1 and Mood disorder F39 [place] [address] [facility] [id number] [address] [place] [address] Dec, Lumbago with sciatica, unspe cified side M54.40 [place] [address] [place] [id number] [place] [address] Dec, Obstructive sleep apnea synd luis G47.33 [place] [address] [place] [id number] [address] [place] [address] Nov, Lumbago with sciatica, unspe cified side M54.40 ; Hypertension, benign I10 and Mood disorder F39 [place] [address] [place] [id number] [address] [place] [address] Nov, Other chronic pain G89.29 [place] [address] [place] [id number] [address] [place] [address] Nov, Lumbago with sciatica, unspe cified side M54.40 [facility] [address] [facility] [id number] [address] [place] [phone] Nov, Dental examination Z01.20 [facility] [address] [facility] [id number] [address] [place] [address] Oct, [facility] [address] [facility] [id number] [address] [place] [address] Oct, Lumbago with sciatica, unspe cified side M54.40 [place] [address] [facility] [id number] [address] [place] [phone] Oct, Lumbago with sciatica, unspe cified side M54.40 [facility] [address] [facility] [id number] [address] [place] [address] Oct, [facility] [address] [facility] [id number] [address] [place] [address] Oct, [facility] [address] [facility] [id number] [address] [place] [address] [id number] Oct, Dental examination Z01.20 [facility] [address] [facility] [id number] [address] [place] [address] Oct, [facility] [address] [facility] [id number] [address] [place] [address] Oct, Pain in right knee M25.561 [facility] [address] [place] [id number] [address] [place] [address] Sep, [facility] [address] [place] [id number] [address] [place] [address] Sep, Other chronic pain G89.29 [facility] [address] [place] [id number] [address] [place] [address] Sep, Lumbago with sciatica, unspe cified side M54.40 [facility] [address] [place] [id number] [address] [place] [address] Sep, [facility] [address] [place] [id number] [address] [place] [address] Sep, Viral URI J06.9 and BMI 45.0 -49.9, adult Z68.42 [facility] [address] [place] [id number] [address] [place] [address] Aug, Foreign body hand S60.559A a nd BMI 45.0-49.9, adult Z68.42 [facility] [address] [id number] [address] [place] [address] Aug, [facility] [address] [facility] [id number] [address] [place] [address] Aug, Lumbago with sciatica, unspe cified side M54.40 [facility] [address] [facility] [id number] [address] [place] [address] Aug, Vertigo R42 ; Dysfunction of both eustachian tubes H69.83 ; Low back pain M54.5 and Other chronic pain G89.29 [facility] [address] [id number] [address] [place] [address] Aug, Dizziness R42 and Acute bila teral otitis media H66.93 [place] [address] [facility] [id number] [address] [place] [address] Aug, Lumbago with sciatica, unspe cified side M54.40 [facility] [address] [place] [id number] [place] [address] [id number] Jul, Dental examination Z01.20 [place] [address] [facility] [id number] [address] [place] [address] Jul, [place] [address] [facility] [id number] [address] [place] [address] Jul, [place] [address] [facility] [id number] [address] [place] [address] Jul, Dysfunction of both eustachi an tubes H69.83 [place] [address] [facility] [id number] [address] [place] [address] Jul, Controlled type 2 diabetes m ellitus without complication, without long-term current use of insulin E11.9 [place] [id number] [facility] [id number] [address] [place] [address] Jul, Controlled type 2 diabetes m ellitus without complication, without long-term current use of insulin E11.9 [facility] [address] [facility] [id number] [address] [place] [address] Jul, Dizziness R42 and BMI 40.0-4 4.9, adult Z68.41 [facility] [address] [id number] [address] [place] [address] Jul, Controlled type 2 diabetes m ellitus without complication, without long-term current use of insulin E11.9 [facility] [address] [id number] [address] [place] [address] Jul, Lumbago with sciatica, unspe cified side M54.40 [facility] [address] [id number] [address] [place] [address] [phone] Jul, Dental examination Z01.20 [facility] [address] [id number] [address] [place] [address] Jun, [facility] [address] [id number] [place] [address] [id number] Jun, Dental examination Z01.20 [facility] [address] [id number] [address] [place] [address] Jun, Controlled type 2 diabetes m ellitus without complication, without long-term current use of insulin E11.9 [place] [address] [id number] [address] [place] [address] Jun, Lumbago with sciatica, unspe cified side M54.40 [facility] [address] [id number] [address] [place] [address] [id number] May, Dental examination Z01.20 [facility] [address] [id number] [address] [place] [address] May, Controlled type 2 diabetes m ellitus without complication, without long-term current use of insulin E11.9 [facility] [address] [id number] [address] [place] [address] [phone] May, Dental examination Z01.20 [facility] [address] [facility] [id number] [address] [place] [address] May, Bronchitis J40 ; Dry mouth R 68.2 ; Non morbid obesity E66.9 and Controlled type 2 diabetes mellitus without complication, without long-term current use of insulin E11.9 [facility] [address] [place] [id number] [place] [address] 16 May, 2017 Encounter for immunization Z 23 [facility] [address] [place] [id number] [place] [phone] 07 May, 2017 Lumbago with sciatica, unspe cified side M54.40 [facility] [address] [facility] [id number] [place] [phone] 05 May, 2017 [facility] [address] [id number] Apr, Dental examination Z01.20 [place] [address] [place] [id number] [place] [address] Apr, Lumbago with sciatica, unspe cified side M54.40 [facility] [address] [place] [id number] [place] [phone] Mar, Lumbago with sciatica, left side M54.42 [place] [address] [place] [id number] [place] [id number] Mar, [place] [address] [place] [id number] [place] [phone] Mar, Lumbar neuritis M54.16 [facility] [address] [place] [id number] [place] [phone] Mar, [facility] [id number] [place] [id number] Mar, Dental examination Z01.20 [place] [address] [address] [facility] [id number] [address] [place] [phone] Mar, MELE (obstructive sleep apnea ) G47.33 ; Neuropathy involving both lower extremities G57.93 and Frequent headaches R51 [place] [address] [address] [place] [id number] [place] [id number] Mar, Lumbago with sciatica, unspe cified side M54.40 [place] [address] [id number] [address] [place] [phone] Feb, Lumbago with sciatica, unspe cified side M54.40 and Controlled type 2 diabetes mellitus without complication, without long-term current use of insulin E11.9 [place] [address] [address] [facility] [id number] [address] [place] [phone] January, Hypertension, benign I10 and Bilateral low back pain with sciatica, sciatica laterality unspecified M54.40 [place] [address] [address] [facility] [id number] [address] [place] [phone] January, Hypertension, benign I10 ; L umbago with sciatica, unspecified side M54.40 ; Other chronic pain G89.29 and Controlled type 2 diabetes mellitus without complication, without long-term current use of insulin E11.9 [place] [address] [id number] [address] [place] [address] January, Lumbar neuritis M54.16 [place] [address] [id number] [address] [place] [address] January, [place] [address] [address] [facility] [id number] [address] [place] [address] Dec, Lumbago with sciatica, right side M54.41 and Lumbar neuritis M54.16 [place] [address] [id number] [address] [place] [address] Dec, Lumbar neuritis M54.16 [place] [address] [id number] [address] [place] [address] Dec, Lumbar neuritis M54.16 [place] [address] [address] [facility] [id number] [address] [place] [address] Nov, Lumbar neuritis M54.16 ; Lum bago with sciatica, right side M54.41 ; Controlled type 2 diabetes mellitus without complication, without long-term current use of insulin E11.9 and Rash and nonspecific skin eruption R21 [place] [address] [address] [facility] [id number] [address] [place] [address] Nov, Lumbar neuritis M54.16 and P alexi colorado L23.7 [place] [address] [address] [facility] [id number] [address] [place] [address] 16 Oct, 2016 Lumbar neuritis M54.16 ; Cou ghing R05 and Mood disorder F39 [place] [address] [place] [id number] [address] [place] [address] Sep, Lumbago with sciatica, right side M54.41 [place] [address] [place] [id number] [place] [address] Sep, Adjustment disorder with dis turbance of emotion F43.29 and Pain management R52 [place] [address] [place] [address] Sep, [place] [address] [place] [id number] [address] [place] [address] Sep, [place] [address] [address] Sep, Controlled type 2 diabetes evens reyna without complication, without long-term current use of insulin E11.9 and Lumbago with sciatica, unspecified side M54.40 [place] [address] [place] [id number] [address] [place] [address] Aug, Controlled type 2 diabetes evens reyna without complication, without long-term current use of insulin E11.9 ; Pain in right knee M25.561 ; Pain in left knee M25.562 ; Other chronic pain G89.29 ; Lumbago with sciatica, right side M54.41 ; Neck pain M54.2 and Encounter for immunization Z23 [place] [address] [place] [id number] [address] [place] [address] Jul, [place] [address] [place] [id number] [place] [address] Jul, Controlled type 2 diabetes evens reyna without complication, without long-term current use of insulin E11.9 [facility] [address] [id number] [address] [place] [address] Jul, [facility] [address] [id number] [address] [place] [address] Jul, [facility] [address] [id number] [address] [place] [address] Jul, Lumbago with sciatica, left side M54.42 ; Lumbago with sciatica, right side M54.41 and Other chronic pain G89.29 [facility] [address] [id number] [address] [place] [address] Jul, [facility] [address] [id number] [address] [place] [address] Jul, [facility] [address] [id number] [address] [place] [address] Jun, [facility] [address] [id number] [address] [place] [address] Jun, Lumbago with sciatica, right side M54.41 and Other chronic pain G89.29 [facility] [address] [id number] [address] [place] [address] Jun, Cervicalgia M54.2 ; Lumbago with sciatica, unspecified side M54.40 and Other chronic pain G89.29 [facility] [address] [id number] [address] [place] [address] 15 May, 2016 Pain in right knee M25.561 ; Pain in left knee M25.562 and Other chronic pain G89.29 [facility] [address] [id number] [address] [place] [address] 14 May, 2016 [facility] [address] [id number] [address] [place] [address] Apr, Other chronic pain G89.29 an d Pain in right knee M25.561 [facility] [address] [id number] [address] [place] [address] Apr, Pain in right knee M25.561 [facility] [address] [id number] [address] [place] [address] Mar, [facility] [address] [id number] [address] [place] [address] Mar, Mood disorder F39 and Contro lled type 2 diabetes mellitus without complication, without long-term current use of insulin E11.9 [facility] [address] [id number] [address] [place] [address] Mar, Pain in right knee M25.561 ; Pain in left knee M25.562 ; Other chronic pain G89.29 ; Obstructive sleep apnea syndrome G47.33 ; Mood disorder F39 and Controlled type 2 diabetes mellitus without complication, without long- term current use of insulin E11.9 [facility] [address] [id number] [address] [place] [address] Mar, [facility] [address] [id number] [address] [place] [id number] Feb, Dental examination Z01.20 [facility] [address] [id number] [address] [place] [address] Feb, [facility] [address] [id number] [address] [place] [address] Feb, Osteoarthritis of right knee , unspecified osteoarthritis type M17.9 [facility] [address] [id number] [address] [place] [address] January, [facility] [address] [id number] [address] [place] [id number] January, Dental examination Z01.20 [facility] [address] [id number] [address] [place] [address] January, [facility] [address] [id number] [address] [place] [id number] January, Dental examination Z01.20 an d Caries K02.9 [facility] [address] [id number] [address] [place] [address] Dec, Encounter for other preproce dural examination Z01.818 [facility] [address] [id number] [address] [place] [address] Dec, [facility] [address] [id number] [address] [place] [address] Dec, Knee pain M25.569 [facility] [address] [id number] [address] [place] [address] Dec, Pain in right knee M25.561 [facility] [address] [id number] [address] [place] [address] Dec, [facility] [address] [id number] [address] [place] [address] Dec, [facility] [address] [id number] [address] [place] [address] Dec, Encounter for immunization Z 23 [facility] [address] [id number] [address] [place] [address] Dec, [facility] [address] [id number] [address] [place] [address] Dec, [facility] [address] [id number] [address] [place] [address] Nov, [facility] [address] [id number] [address] [place] [address] Nov, Hypertension, benign I10 ; C ervicalgia M54.2 ; Pain in right knee M25.561 and Pain in left knee M25.562 [facility] [address] [id number] [address] [place] [address] 29 Oct, 2015 [facility] [address] [id number] [address] [place] [address] Oct, [place] [address] [facility] [id number] [address] [place] [address] Oct, Osteoarthritis of both knees M17.0 [place] [address] [address] [facility] [id number] [address] [place] [address] Oct, [place] [address] [address] [facility] [id number] [address] [place] [address] Oct, Low back pain M54.5 [place] [address] [address] [facility] [id number] [address] [place] [address] Oct, Low back pain M54.5 ; Sciati ca, unspecified side M54.30 ; Pain in right knee M25.561 ; Pain in left knee M25.562 ; Pain in right shoulder M25.511 and Pain in left shoulder M25.512 [place] [address] [address] [facility] [id number] [address] [place] [address] Oct, [place] [address] [address] [facility] [id number] [address] [place] [address] Sep, Pain in right hip M25.551 [place] [address] [address] [facility] [id number] [address] [place] [address] Sep, Acute upper respiratory infe ction, unspecified J06.9 [place] [address] [address] [facility] [id number] [address] [place] [address] Aug, Acute upper respiratory infe ction, unspecified J06.9 and Other viral agents as the cause of diseases classified elsewhere B97.89 [place] [address] [address] [facility] [id number] [address] [place] [address] Jul, Arthritis M19.90 [place] [address] [address] [facility] [id number] [address] [place] [address] Jun, Arthritis M19.90 ; Pain in r ight hip M25.551 ; Pain in left hip M25.552 ; Bilateral low back pain with sciatica, sciatica laterality unspecified M54.40 ; Neck pain M54.2 ; Upper back pain M54.9 and Knee pain, unspecified laterality M25.569 [facility] [address] [id number] [address] [place] [address] 10 May, 2015 Osteoarthritis of both knees 715.96 [facility] [address] [id number] [address] [place] [address] May, Rash 782.1 [facility] [address] [facility] [id number] [address] [place] [address] Apr, Lumbar strain 847.2 [facility] [address] [facility] [id number] [address] [place] [address] Apr, Rash 782.1 [facility] [address] [facility] [id number] [address] [place] [address] Mar, Rash 782.1 [facility] [address] [facility] [id number] [address] [place] [address] Feb, Rash 782.1 ; Hemorrhoids 455 .6 and Constipation 564.00 [facility] [address] [id number] [address] [place] [address] Feb, Osteoarthritis of both knees 715.96 [facility] [address] [id number] [address] [place] [address] January, [facility] [address] [id number] [address] [place] [address] Dec, [facility] [address] [id number] [address] [place] [address] Dec, [facility] [address] [facility] [id number] [address] [place] [address] Dec, [facility] [address] [facility] [id number] [address] [place] [address] Nov, [facility] [address] [facility] [id number] [address] [place] [address] Nov, [facility] [address] [id number] [address] [place] [address], [place] [address] Nov, [facility] [address] [id number] [address] [place] [address], [place] [address] Nov, [facility] [address] [id number] [address] [place] [address], [place] [address] Nov, [facility] [address] [id number] [address] [place] [address], [place] [address] Nov, [facility] [address] [id number] [address] [place] [address], [place] [address] Oct, [facility] [address] [id number] [address] [place] [address], [place] [address] Oct, 2014 [facility] [address] [id number] [address] [place] [address], [place] [address] Oct, 2014 [facility] [address] [id number] [address] [place] [address], [place] [address] Oct, 2014 [facility] [address] [id number] [address] [place] [address], [place] [address] Oct, 2014 [facility] [address] [id number] [address] [place] [address], [place] [address] Oct, [facility] [address] [id number] [address] [place] [address], [place] [address] Oct, 2014 [facility] [address] [id number] [address] [place] [address], [place] [address] Oct, 2014 [facility] [address] [id number] [address] [place] [address], [place] [address] Oct, 2014 [facility] [address] [id number] [address] [place] [address], [place] [address] Oct, 2014 [facility] [address] [id number] [address] [place] [address], [place] [address] Oct, 2014 [facility] [address] [id number] [address] [place] [address], [place] [address] 14 Sep, 2014 [facility] [address] [id number] [address] [place] [address], [place] [address] 14 Sep, 2014 [facility] [address] [id number] [address] [place] [address], [place] [address] 07 Sep, 2014 [facility] [address] [id number] [address] [place] [address], [place] [address] Sep, [facility] [address] [id number] [address] [place] [address], [place] [address] Sep, [facility] [address] [id number] [address] [place] [address], [place] [address] Sep, [facility] [address] [id number] [address] [place] [address], [place] [address] 15 Aug, 2014 [facility] [address] [id number] [address] [place] [address], [place] [address] 15 Aug, 2014 [facility] [address] [id number] [address] [place] [address], [place] [address] Aug, [facility] [address] [id number] [address] [place] [address], [place] [address] Aug, [facility] [address] [id number] [address] [place] [address], [place] [address] Aug, [facility] [address] [id number] [address] [place] [address], [place] [address] Aug, [facility] [address] [id number] [address] [place] [address], [place] [address] 05 Aug, 2014 [facility] [address] [id number] [address] [place] [address], [place] [address] Aug, [facility] [address] [id number] [address] [place] [address], [place] [address] Aug, [facility] [address] [id number] [address] [place] [address] [address] Aug, [facility] [address] [id number] [address] [place] [address], [place] [address] Jul, [facility] [address] [id number] [address] [place] [address], [place] [address] Jul, [facility] [address] [id number] [address] [place] [address], [place] [address] Jul, [facility] [address] [id number] [address] [place] [address], [place] [address] Jul, [facility] [address] [id number] [address] [place] [address], [place] [address] Jun, [facility] [address] [id number] [address] [place] [address], [place] [address] Jun, [facility] [address] [id number] [address] [place] [address], [place] [address] Jun, [facility] [address] [id number] [address] [place] [address], [place] [address] Jun, [facility] [address] [id number] [address] [place] [address], [place] [address] Jun, [facility] [address] [id number] [address] [place] [address] Jun, [facility] [address] [id number] [address] [place] [address] Jun, [facility] [address] [id number] [address] [place] [address] Jun, [facility] [address] [id number] [address] [place] [address], [place] [address] May, [facility] [address] [id number] [address] [place] [address], [place] [address] May, [facility] [address] [id number] [address] [place] [address], [place] [address] May, [facility] [address] [id number] [facility] [address] 19 May, 2013 [facility] [address] [id number] [address] [place] [address], [place] [address] 15 May, 2014 [facility] [address] [id number] [address] [place] [address], [place] [address] May, [facility] [address] [id number] [address] [place] [address], [place] [address] 15 May, 2014 [facility] [address] [id number] [address] [place] [address], [place] [address] May, [facility] [address] [id number] [address] [place] [address], [place] [address] Apr, [facility] [address] [id number] [address] [place] [address], [place] [address] Apr, [facility] [address] [id number] [address] [place] [address], [place] [address] Apr, [facility] [address] [id number] [address] [place] [address], [place] [address] Apr, [facility] [address] [id number] [address] [place] [address], [place] [address] Apr, [facility] [address] [id number] [address] [place] [address], [place] [address] Apr, [facility] [address] [id number] [address] [place] [address], [place] [address] Apr, [facility] [address] [id number] [address] [place] [address], [place] [address] Apr, [facility] [address] [id number] [address] [place] [address], [place] [address] Apr, [facility] [address] [id number] [address] [place] [address], [place] [address] Apr, [facility] [address] [id number] [address] [place] [address], [place] [address] Apr, [facility] [address] [id number] [address] [place] [address], [place] [address] Apr, [facility] [address] [id number] [address] [place] [address], [place] [address] Mar, [facility] [address] [id number] [address] [place] [address], [place] [address] Mar, [facility] [address] [id number] [address] [place] [address], [place] [address] Mar, [facility] [address] [id number] [address] [place] [address], [place] [address] Mar, [facility] [address] [id number] [address] [place] [address], [place] [address] Mar, [facility] [address] [id number] [address] [place] [address], [place] [address] Mar, [facility] [address] [id number] [address] [place] [address], [place] [address] Feb, [facility] [address] [id number] [address] [place] [address], [place] [address] Feb, [facility] [address] [id number] [address] [place] [address], [place] [address] Feb, [facility] [address] [id number] [address] [place] [address], [place] [address] Feb, [facility] [address] [id number] [address] [place] [address], [place] [address] Feb, [facility] [address] [id number] [address] [place] [address], [place] [address] Feb, [facility] [address] [id number] [address] [place] [address], [place] [address] Feb, [facility] [address] [id number] [address] [place] [address], [place] [address] Feb, [facility] [address] [id number] [address] [place] [address], [place] [address] Feb, [facility] [address] [id number] [facility] [address] Feb, [facility] [address] [id number] [address] [place] [address], [place] [address] Feb, [facility] [address] [id number] [address] [place] [address], [place] [address] Feb, [facility] [address] [id number] [address] [place] [address], [place] [address] Feb, [facility] [address] [id number] [address] [place] [address], [place] [address] Feb, [facility] [address] [id number] [address] [place] [address], [place] [address] January, [facility] [address] [id number] [address] [place] [address], [place] [address] January, [facility] [address] [id number] [address] [place] [address], [place] [address] January, [facility] [address] [id number] [address] [place] [address], [place] [address] January, [facility] [address] [id number] [address] [place] [address], [place] [address] January, [facility] [address] [id number] [address] [place] [address], [place] [address] January, [facility] [address] [id number] [address] [place] [address], [place] [address] Dec, [facility] [address] [id number] [address] [place] [address], [place] [address] Dec, [facility] [address] [id number] [address] [place] [address], [place] [address] Dec, [facility] [address] [id number] [address] [place] [address], [place] [address] Dec, [facility] [address] [id number] [facility] [address] Dec, [facility] [address] [id number] [address] [place] [address], [place] [address] Dec, [facility] [address] [id number] [facility] [address] Dec, [facility] [address] [id number] [address] [place] [address], [place] [address] Dec, [facility] [address] [id number] [address] [place] [address], [place] [address] Nov, [facility] [address] [id number] [address] [place] [address], [place] [address] Nov, [facility] [address] [id number] [address] [place] [address], [place] [address] Nov, [facility] [address] [id number] [address] [place] [address], [place] [address] Nov, [facility] [address] [id number] [address] [place] [address], [place] [address] Nov, [facility] [address] [id number] [address] [place] [address], [place] [address] Nov, [facility] [address] [id number] [address] [place] [address], [place] [address] Nov, [facility] [address] [id number] [address] [place] [address], [place] [address] Nov, [facility] [address] [id number] [address] [place] [address], [place] [address] Oct, [facility] [address] [id number] [address] [place] [address], [place] [address] Oct, [facility] [address] [id number] [address] [place] [address], [place] [address] Oct, [facility] [address] [id number] [address] [place] [address], [place] [address] Oct, [facility] [address] [id number] [address] [place] [address], [place] [address] Oct, [facility] [address] [id number] [address] [place] [address], [place] [address] Oct, [facility] [address] [id number] [address] [place] [address], [place] [address] Oct, [facility] [address] [id number] [address] [place] [address], [place] [address] Oct, [facility] [address] [id number] [address] [place] [address], [place] [address] Oct, [facility] [address] [id number] [address] [place] [address], [place] [address] Oct, [facility] [address] [id number] [address] [place] [address], [place] [address] Sep, [facility] [address] [id number] [address] [place] [address], [place] [address] Sep, [facility] [address] [id number] [address] [place] [address], [place] [address] Sep, [facility] [address] [id number] [address] [place] [address], [place] [address] Sep, [facility] [address] [id number] [address] [place] [address], [place] [address] Sep, [facility] [address] [id number] [address] [place] [address], [place] [address] Sep, [facility] [address] [id number] [address] [place] [address], [place] [address] Aug, [facility] [address] [id number] [address] [place] [address], [place] [address] Aug, [facility] [address] [id number] [address] [place] [address], [place] [address] Aug, [facility] [address] [id number] [address] [place] [address], [place] [address] Aug, [facility] [address] [id number] [address] [place] [address], [place] [address] Aug, [facility] [address] [id number] [address] [place] [address], [place] [address] Aug, [facility] [address] [id number] [address] [place] [address], [place] [address] Aug, [facility] [address] [id number] [address] [place] [address], [place] [address] Aug, [facility] [address] [id number] [address] [place] [address], [place] [address] Jul, [facility] [address] [id number] [address] [place] [address], [place] [address] Jul, [facility] [address] [id number] [address] [place] [address], [place] [address] Jul, [facility] [address] [id number] [address] [place] [address], [place] [address] Jul, [facility] [address] [id number] [address] [place] [address], [place] [address] Jul, [facility] [address] [id number] [address] [place] [address], [place] [address] Jul, [facility] [address] [id number] [address] [place] [address], [place] [address] Jun, [facility] [address] [id number] [address] [place] [address], [place] [address] Jun, [facility] [address] [id number] [address] [place] [address], [place] [address] Jun, [facility] [address] [id number] [address] [place] [address], [place] [address] 24 May, 2013 [facility] [address] [id number] [address] [place] [address], [place] [address] May, [facility] [address] [id number] [address] [place] [address], [place] [address] May, [facility] [address] [id number] [address] [place] [address], [place] [address] Apr, [facility] [address] [id number] [address] [place] [address], [place] [address] Apr, [facility] [address] [id number] [address] [place] [address], [place] [address] Apr, [facility] [address] [id number] [address] [place] [address], [place] [address] Apr, [facility] [address] [id number] [address] [place] [address], [place] [address] Mar, [facility] [address] [id number] [address] [place] [address], [place] [address] Mar, [facility] [address] [id number] [address] [place] [address], [place] [address] Mar, [facility] [address] [id number] [address] [place] [address], [place] [address] Mar, [facility] [address] [id number] [address] [place] [address], [place] [address] Feb, [facility] [address] [id number] [address] [place] [address], [place] [address] Feb, [facility] [address] [id number] [address] [place] [address], [place] [address] Feb, [facility] [address] [id number] [address] [place] [address], [place] [address] Feb, [facility] [address] [id number] [address] [place] [address], [place] [address] January, [facility] [address] [id number] [address] [place] [address], [place] [address] January, [facility] [address] [id number] [address] [place] [address], [place] [address] January, [facility] [address] [id number] [address] [place] [address], [place] [address] Nov, [facility] [address] [id number] [address] [place] [address], [place] [address] Nov, [facility] [address] [id number] [address] [place] [address], [place] [address] Oct, [facility] [address] [id number] [address] [place] [address], [place] [address] Oct, [facility] [address] [id number] [address] [place] [address], [place] [address] Oct, [facility] [address] [id number] [address] [place] [address], [place] [address] Oct, [facility] [address] [id number] [address] [place] [address], [place] [address] Sep, [facility] [address] [id number] [address] [place] [address], [place] [address] Sep, [facility] [address] [id number] [address] [place] [address], [place] [address] Sep, [facility] [address] [id number] [address] [place] [address], [place] [address] Aug, [facility] [address] [id number] [address] [place] [address], [place] [address] Aug, [facility] [address] [id number] [address] [place] [address], [place] [address] Aug, [facility] [address] [id number] [address] [place] [address], [place] [address] Aug, [facility] [address] [id number] [address] [place] [address], [place] [address] Aug, [facility] [address] [id number] [address] [place] [address], [place] [address] Aug, [facility] [address] [id number] [address] [place] [address], [place] [address] Jul, [facility] [address] [id number] [address] [place] [address], [place] [address] Jul, [facility] [address] [id number] [address] [place] [address], [place] [address] Jun, [facility] [address] [id number] [address] [place] [address], [place] [address] Jun, [facility] [address] [id number] [address] [place] [address], [place] [address] Jun, [facility] [address] [id number] [address] [place] [address], [place] [address] Apr, [facility] [address] [id number] [address] [place] [address], [place] [address] Apr, [facility] [address] [id number] [address] [place] [address], [place] [address] Mar, [facility] [address] [id number] [address] [place] [address], [place] [address] Mar, [facility] [address] [id number] [address] [place] [address], [place] [address] Mar, [facility] [address] [id number] [address] [place] [address], [place] [address] Mar, [facility] [address] [id number] [address] [place] [address] Feb, [facility] [address] [id number] [address] [place] [address], [place] [address] Feb, [facility] [address] [id number] [address] [place] [address], [place] [address] Feb, [facility] [address] [id number] [address] [place] [address], [place] [address] January, [facility] [address] [id number] [address] [place] [address] January, [facility] [address] [id number] [address] [place] [address], [place] [address] January, [facility] [address] [id number] [address] [place] [address], [place] [address] January, [facility] [address] [id number] [address] [place] [address], [place] [address] Dec, [facility] [address] [id number] [address] [place] [address], [place] [address] Dec, [facility] [address] [id number] [address] [place] [address], [place] [address] Nov, [facility] [address] [id number] [address] [place] [address], [place] [address] Nov, [facility] [address] [id number] [address] [place] [address], [place] [address] 16 Oct, 2011 [facility] [address] [id number] [address] [place] [address], [place] [address] Oct, [facility] [address] [id number] [address] [place] [address], [place] [address] Sep, [facility] [address] [id number] [address] [place] [address], [place] [address] Sep, [facility] [address] [id number] [address] [place] [address], [place] [address] Sep, [facility] [address] [id number] [address] [place] [address], [place] [address] Sep, [facility] [address] [id number] [address] [place] [address], [place] [address] Aug, [facility] [address] [id number] [address] [place] [address], [place] [address] Aug, [facility] [address] [id number] [address] [place] [address], [place] [address] Aug, [facility] [address] [id number] [address] [place] [address] Jul, [facility] [address] [id number] [address] [place] [address] Aug, [facility] [address] [id number] [address] [place] [address] Aug, [facility] [address] [id number] [address] [place] [address] Aug, [facility] [address] [id number] [address] [place] [address] Aug, [facility] [address] [id number] [address] [place] [address] Jul, [facility] [address] [id number] [address] [place] [address] Jul, [facility] [address] [id number] [address] [place] [address] Jul, [facility] [address] [id number] [address] [place] [address] Jun, [facility] [address] [id number] [address] [place] [address] Jun, [facility] [address] [id number] [address] [place] [address] Jun, [facility] [address] [id number] [address] [place] [address] Apr, [facility] [address] [id number] [address] [place] [address] Mar, IMMUNIZATIONS No Known Immunizations SOCIAL HISTORY Never Assessed REASON FOR VISIT PLAN OF CARE VITAL SIGNS MEDICATIONS Unknown Medications RESULTS No Results PROCEDURES No Known procedures INSTRUCTIONS MEDICATIONS ADMINISTERED No Known Medications MEDICAL (GENERAL) HISTORY Type Description Date Medical History Hernia Medical History Hyperglycemia Medical History Hypertension Medical History Chronic b/l knee pain Medical History Knee Replacement-bilateral Surgical History Arthroscopy of left knee x 3 Surgical History hernia repair Surgical History Knee replacement lt. knee 01/11/2016 Surgical History Rt. knee replacement 04/21/16 Hospitalization History surgeries Hospitalization History chest pain 04/27/2019
--- OUTSIDE RECORDS SUMMARY | 2020-03-18 14:34 | XMS REPORT ---
Author Author George WAYNE Organization [facility] Address [address] [place] [address] Care Team Providers Care Director Cloud Transformation Name Role Phone REYNA WAYNE Unavailable PROBLEMS Type Condition ICD9-CM Code [id number] Code Onset Dates Condition S tatus SNOMED Code Problem Hypertension, benign I10 Active 07726337 Problem Other chronic pain G89.29 Active 8 7579928 Problem Lumbago with sciatica, unspecified side M54.40 Active 389377348 Problem Controlled type 2 diabetes m ellitus without complication, without long- term current use of insulin E11.9 Active 474307673 Problem Lumbago with sciatica, right side M54.41 Active 113735083 Problem Adjustment disorder with disturbance of emotion F4 3.29 Active 96127922 Problem MELE (obstructive sleep apnea) G47.33 Active 16161959 Problem Non morbid obesity E66.9 Active 4 27011334 Problem Hammer toe of left foot M20.42 Active 032372147 Problem Mood disorder F39 Active 801492 05 Problem Deformity of left foot M21.962 Active 290585071 Problem Lumbago with sciatica, left side M54.42 Active 638582193 Problem Erectile dysfunction due to diseases classified elsewhere N52.1 Active 695965469 Problem Obstructive sleep apnea syndrome G47.33 Active 49889542 Problem Type 2 diabetes mellitus wit h diabetic neuropathy, without long-term current use of insulin E11.40 Active 68369 006 Problem Essential hypertension I10 Active 05818211 ALLERGIES No Information ENCOUNTERS Encounter Location Date Diagnosis [facility] [address] [facility] [id number] [address] [place] [address] May, [facility] [address] [facility] [id number] [address] [place] [address] Apr, Lumbago with sciatica, unspe cified side M54.40 [facility] [address] [place] [id number] [address] [place] [address] Apr, [place] [address] [address] Apr, [address] [address] Apr, Hammer toe of left foot M20.42 ; Chest p ain R07.9 ; Preoperative examination Z01.818 and Morbid obesity E66.01 [place] [address] [address] Apr, Morbid obesity E66.01 ; Bron chitis J40 and High risk medications (not anticoagulants) long-term use Z79.899 [place] [address] [address] Apr, Lumbago with sciatica, unspe cified side M54.40 [place] [address] [address] Apr, [place] [address] [address] Mar, Lumbar neuritis M54.16 and M orbid obesity E66.01 [place] [address] [address] Mar, [place] [address] [address] Mar, [place] [address] [address] Mar, Lumbago with sciatica, unspe cified side M54.40 [place] [address] [address] Mar, Morbid obesity E66.01 ; Coug marco R05 ; 2+ pitting edema R60.9 and Controlled type 2 diabetes mellitus without complication, without long-term current use of insulin E11.9 [place] [address] [place] [address] Feb, [facility] [address] [id number] [address] [place] [address] Feb, Lumbago with sciatica, unspe cified side M54.40 [facility] [address] [id number] [address] [place] [address] Feb, [facility] [address] [id number] [address] [place] [address] Feb, Controlled type 2 diabetes m ellitus without complication, without long-term current use of insulin E11.9 and Morbid obesity E66.01 [facility] [address] [facility] [id number] [address] [place] [address] January, Deformity of left foot M21.9 62 [facility] [address] [facility] [id number] [address] [place] [address] January, [facility] [address] [facility] [id number] [address] [place] [address] January, Lumbago with sciatica, unspe cified side M54.40 [facility] [address] [facility] [id number] [address] [place] [address] January, [facility] [address] [facility] [id number] [address] [place] [address] January, Lumbago with sciatica, unspe cified side M54.40 [facility] [address] [id number] [address] [place] [address] January, [facility] [address] [id number] [address] [place] [address] January, Acute right-sided thoracic b ack pain M54.6 [facility] [address] [id number] [address] [place] [address] January, Acute right-sided thoracic b ack pain M54.6 [facility] [address] [id number] [address] [place] [address] January, Chest pain, unspecified type R07.9 ; Morbid obesity E66.01 and Scabies B86 [place] [address] [facility] [id number] [address] [place] [address] Dec, Lumbago with sciatica, unspe cified side M54.40 [place] [address] [place] [id number] [address] [place] [address] Dec, Toenail fungus B35.1 [place] [address] [facility] [id number] [address] [place] [address] Dec, Toenail fungus B35.1 [place] [address] [place] [id number] [address] [place] [address] Dec, Acute right-sided thoracic b ack pain M54.6 [place] [address] [place] [address] Dec, Lumbago with sciatica, unspe cified side M54.40 [place] [address] [place] [id number] [address] [place] [address] Nov, Hammer toe of left foot M20. 42 ; Deformity of left foot M21.962 and Type 2 diabetes mellitus with diabetic neuropathy, without long-term current use of insulin E11.40 [facility] [address] [place] [id number] [address] [place] [address] Nov, Acute right-sided thoracic b ack pain M54.6 ; Morbid obesity E66.01 and Rt flank pain R10.9 [place] [address] [facility] [id number] [address] [place] [address] Nov, Lumbago with sciatica, unspe cified side M54.40 [place] [address] [place] [id number] [address] [place] [address] Oct, Lumbago with sciatica, unspe cified side M54.40 [facility] [address] [place] [id number] [address] [place] [address] Sep, Lumbago with sciatica, unspe cified side M54.40 [facility] [address] [place] [id number] [address] [place] [address] Sep, [facility] [address] [place] [id number] [address] [place] [address] Sep, BMI 40.0-44.9, adult Z68.41 ; Lumbago with sciatica, left side M54.42 ; Lumbago with sciatica, right side M54.41 and Other chronic pain G89.29 [place] [address] [place] [id number] [address] [place] [address] Aug, Lumbago with sciatica, unspe cified side M54.40 [place] [address] [place] [id number] [address] [place] [address] Aug, Type 2 diabetes mellitus wit h diabetic neuropathy, without long- term current use of insulin E11.40 ; Hammer toe of left foot M20.42 ; Hypertension, benign I10 and Frequent headaches R51 [place] [address] [place] [id number] [address] [place] [address] Jul, Lumbago with sciatica, unspe cified side M54.40 [place] [address] [place] [id number] [address] [place] [address] Jul, [place] [address] [place] [id number] [address] [place] [address] Jul, Essential hypertension I10 a nd Controlled type 2 diabetes mellitus without complication, without long-term current use of insulin E11.9 [place] [address] [facility] [id number] [address] [place] [address] Jul, Essential hypertension I10 ; Controlled type 2 diabetes mellitus without complication, without long-term current use of insulin E11.9 and BMI 40.0-44.9, adult Z68.41 [place] [address] [place] [id number] [address] [place] [address] Jul, Dysfunction of left eustachi an tube H69.82 [facility] [address] [facility] [id number] [address] [place] [address] Jul, Lumbago with sciatica, unspe cified side M54.40 [facility] [address] [facility] [id number] [address] [place] [id number] Jun, Dental examination Z01.20 [facility] [address] [facility] [id number] [address] [place] [address] Jun, Lumbago with sciatica, unspe cified side M54.40 and Encounter for immunization Z23 [facility] [address] [facility] [id number] [address] [place] [address] Jun, Dysfunction of left eustachi an tube H69.[id number] [place] [address] [id number] Jun, Dental examination Z01.20 [facility] [address] [facility] [id number] [address] [place] [address] Jun, Other chronic pain G89.29 [facility] [address] [place] [id number] [place] [address] [id number] Jun, Dental examination Z01.20 [facility] [address] [facility] [id number] [address] [place] [address] Jun, [facility] [address] [facility] [id number] [address] [place] [address] Jun, Bronchitis J40 ; Dysfunction of left eustachian tube H69.82 and BMI 45.0-49.9, adult Z68.42 [facility] [address] [facility] [id number] [address] [place] [address] Jun, Lumbago with sciatica, unspe cified side M54.40 [facility] [address] [facility] [id number] [address] [place] [address] May, Type 2 diabetes mellitus wit h diabetic neuropathy, without long- term current use of insulin E11.40 and Hypertension, benign I10 [facility] [address] [place] [id number] [address] [place] [address] May, Lumbago with sciatica, unspe cified side M54.40 [facility] [address] [place] [id number] [address] [place] [address] Apr, [facility] [address] [place] [id number] [address] [place] [address] Apr, Controlled type 2 diabetes m ellitus without complication, without long-term current use of insulin E11.9 ; Insect bite (nonvenomous), right ankle, initial encounter S90.561A ; Local infection of the skin and subcutaneous tissue, unspecified L08.9 ; Acute swimmer''s ear of left side H60.332 and BMI 45.0-49.9, adult Z68.42 [place] [address] [place] [id number] [address] [place] [address] Apr, Lumbago with sciatica, unspe cified side M54.40 [place] [address] [place] [id number] [address] [place] [address] Mar, [place] [address] [place] [id number] [address] [place] [address] Mar, Lumbago with sciatica, unspe cified side M54.40 [place] [address] [place] [id number] [address] [place] [address] Feb, Lumbago with sciatica, unspe cified side M54.40 [place] [address] [place] [id number] [address] [place] [address] Feb, BMI 45.0-49.9, adult Z68.42 and Obstructive sleep apnea syndrome G47.33 [place] [address] [place] [id number] [address] [place] [address] January, Lumbar neuritis M54.16 [place] [address] [place] [id number] [place] [address] January, Lumbago with sciatica, unspe cified side M54.40 [place] [address] [place] [id number] [address] [place] [address] Dec, Controlled type 2 diabetes m maribell without complication, without long-term current use of insulin E11.9 ; Erectile dysfunction due to diseases classified elsewhere N52.1 and Mood disorder F39 [place] [address] [address] Dec, Lumbago with sciatica, unspe cified side M54.40 [place] [address] [address] Dec, Obstructive sleep apnea synd luis G47.33 [place] [address] [address] Nov, Lumbago with sciatica, unspe cified side M54.40 ; Hypertension, benign I10 and Mood disorder F39 [place] [address] [place] [id number] [place] [address] Nov, Other chronic pain G89.29 [place] [address] [address] Nov, Lumbago with sciatica, unspe cified side M54.40 [facility] [id number] [place] [address] [id number] Nov, Dental examination Z01.20 [place] [address] [place] [id number] [place] [address] Oct, [place] [address] [place] [id number] [place] [address] Oct, Lumbago with sciatica, unspe cified side M54.40 [place] [address] [place] [id number] [address] [place] [address] Oct, Lumbago with sciatica, unspe cified side M54.40 [facility] [address] [id number] [address] [place] [address] 14 Oct, 2017 [facility] [address] [id number] [address] [place] [address] Oct, [facility] [address] [id number] [address] [place] [address] [id number] 13 Oct, 2017 Dental examination Z01.20 [facility] [address] [id number] [address] [place] [address] Oct, [facility] [address] [facility] [id number] [address] [place] [address] Oct, Pain in right knee M25.561 [facility] [address] [facility] [id number] [address] [place] [address] Sep, [facility] [address] [facility] [id number] [address] [place] [address] Sep, Other chronic pain G89.29 [facility] [address] [facility] [id number] [address] [place] [address] Sep, Lumbago with sciatica, unspe cified side M54.40 [facility] [address] [facility] [id number] [address] [place] [address] Sep, [facility] [address] [facility] [id number] [address] [place] [address] Sep, Viral URI J06.9 and BMI 45.0 -49.9, adult Z68.42 [facility] [address] [facility] [id number] [address] [place] [address] Aug, Foreign body hand S60.559A a nd BMI 45.0-49.9, adult Z68.42 [facility] [address] [facility] [id number] [address] [place] [address] Aug, [facility] [address] [facility] [id number] [address] [place] [address] Aug, Lumbago with sciatica, unspe cified side M54.40 [facility] [address] [facility] [id number] [address] [place], [place] [address] Aug, Vertigo R42 ; Dysfunction of both eustachian tubes H69.83 ; Low back pain M54.5 and Other chronic pain G89.29 [facility] [address] [place] [id number] [address] [place] [address] Aug, Dizziness R42 and Acute bila teral otitis media H66.93 [place] [address] [facility] [id number] [address] [place] [address] Aug, Lumbago with sciatica, unspe cified side M54.40 [facility] [address] [place] [address] [id number] Jul, Dental examination Z01.20 [place] [address] [place] [id number] [address] [place] [address] Jul, [facility] [address] [place] [id number] [address] [place] [address] Jul, [place] [address] [address] Jul, Dysfunction of both eustachi an tubes H69.83 [place] [address] [place] [id number] [address] [place] [address] Jul, Controlled type 2 diabetes m taraitus without complication, without long-term current use of insulin E11.9 [facility] [address] [place] [id number] [address] [place] [address] Jul, Controlled type 2 diabetes m ellitus without complication, without long-term current use of insulin E11.9 [facility] [address] [place] [id number] [address] [place] [address] 06 Jul, 2017 Dizziness R42 and BMI 40.0-4 4.9, adult Z68.41 [place] [address] [id number] [address] [place] [address] Jul, Controlled type 2 diabetes m ellitus without complication, without long-term current use of insulin E11.9 [facility] [address] [id number] [address] [place] [address] Jul, Lumbago with sciatica, unspe cified side M54.40 [facility] [id number] [place] [address] [id number] Jul, Dental examination Z01.20 [facility] [address] [id number] [address] [place] [address] Jun, [facility] [address] [id number] [place] [id number] Jun, Dental examination Z01.20 [place] [address] [id number] [address] [place] [address] Jun, Controlled type 2 diabetes m ellitus without complication, without long-term current use of insulin E11.9 [facility] [address] [id number] [address] [place] [address] Jun, Lumbago with sciatica, unspe cified side M54.40 [facility] [address] [id number] [address] [place] [address] [id number] May, Dental examination Z01.20 [facility] [address] [id number] [address] [place] [address] May, Controlled type 2 diabetes m ellitus without complication, without long-term current use of insulin E11.9 [facility] [address] [id number] [address] [place] [address] [id number] May, Dental examination Z01.20 [facility] [address] [id number] [address] [place] [address] May, Bronchitis J40 ; Dry mouth R 68.2 ; Non morbid obesity E66.9 and Controlled type 2 diabetes mellitus without complication, without long-term current use of insulin E11.9 [facility] [address] [id number] [address] [place] [address] 16 May, 2017 Encounter for immunization Z 23 [facility] [address] [id number] [address] [place] [address] 07 May, 2017 Lumbago with sciatica, unspe cified side M54.40 [facility] [address] [id number] [address] [place] [address] 05 May, 2017 [facility] [address] [id number] [place] [address] [id number] Apr, Dental examination Z01.20 [facility] [address] [id number] [address] [place] [address] Apr, Lumbago with sciatica, unspe cified side M54.40 [facility] [address] [id number] [address] [place] [address] Mar, Lumbago with sciatica, left side M54.42 [facility] [address] [facility] [id number] [address] [place] [address] Mar, [facility] [address] [facility] [id number] [address] [place] [address] Mar, Lumbar neuritis M54.16 [facility] [address] [id number] [address] [place] [address] Mar, [facility] [address] [id number] [place] [address] [id number] Mar, Dental examination Z01.20 [facility] [address] [id number] [address] [place] [address] Mar, MELE (obstructive sleep apnea ) G47.33 ; Neuropathy involving both lower extremities G57.93 and Frequent headaches R51 [facility] [address] [id number] [address] [place] [address] Mar, Lumbago with sciatica, unspe cified side M54.40 [place] [address] [id number] [address] [place] [address] Feb, Lumbago with sciatica, unspe cified side M54.40 and Controlled type 2 diabetes mellitus without complication, without long-term current use of insulin E11.9 [place] [address] [id number] [address] [place] [address] January, Hypertension, benign I10 and Bilateral low back pain with sciatica, sciatica laterality unspecified M54.40 [place] [address] [id number] [address] [place] [address] January, Hypertension, benign I10 ; L umbago with sciatica, unspecified side M54.40 ; Other chronic pain G89.29 and Controlled type 2 diabetes mellitus without complication, without long-term current use of insulin E11.9 [place] [address] [id number] [address] [place] [address] January, Lumbar neuritis M54.16 [place] [address] [id number] [address] [place] [address] January, [place] [address] [id number] [address] [place] [address] Dec, Lumbago with sciatica, right side M54.41 and Lumbar neuritis M54.16 [place] [address] [id number] [address] [place] [address] Dec, Lumbar neuritis M54.16 [place] [address] [id number] [address] [place] [address] Dec, Lumbar neuritis M54.16 [place] [address] [id number] [address] [place] [address] Nov, Lumbar neuritis M54.16 ; Lum bago with sciatica, right side M54.41 ; Controlled type 2 diabetes mellitus without complication, without long-term current use of insulin E11.9 and Rash and nonspecific skin eruption R21 [place] [address] [id number] [address] [place] [address] Nov, Lumbar neuritis M54.16 and P alexi miroslava L23.7 [place] [address] [place] [id number] Oct, Lumbar neuritis M54.16 ; Cou ghing R05 and Mood disorder F39 [place] [address] [place] [id number] Sep, Lumbago with sciatica, right side M54.41 [place] [address] [id number] Sep, Adjustment disorder with dis turbance of emotion F43.29 and Pain management R52 [place] [address] [id number] Sep, [place] [address] [address] Sep, [place] [address] [id number] Sep, Controlled type 2 diabetes evens reyna without complication, without long-term current use of insulin E11.9 and Lumbago with sciatica, unspecified side M54.40 [place] [address] [address] Aug, Controlled type 2 diabetes evens reyna without complication, without long-term current use of insulin E11.9 ; Pain in right knee M25.561 ; Pain in left knee M25.562 ; Other chronic pain G89.29 ; Lumbago with sciatica, right side M54.41 ; Neck pain M54.2 and Encounter for immunization Z23 [place] [address] [id number] [place] [address] Jul, [place] [address] [address] Jul, Controlled type 2 diabetes evens reyna without complication, without long-term current use of insulin E11.9 [facility] [address] [id number] [address] [place] [address] 17 Jul, 2016 [facility] [address] [id number] [address] [place] [address] 15 Jul, 2016 [facility] [address] [id number] [address] [place] [address] Jul, Lumbago with sciatica, left side M54.42 ; Lumbago with sciatica, right side M54.41 and Other chronic pain G89.29 [facility] [address] [id number] [address] [place] [address] Jul, [facility] [address] [id number] [address] [place] [address] Jul, [facility] [address] [id number] [address] [place] [address] Jun, [facility] [address] [id number] [address] [place] [address] Jun, Lumbago with sciatica, right side M54.41 and Other chronic pain G89.29 [facility] [address] [id number] [address] [place] [address] Jun, Cervicalgia M54.2 ; Lumbago with sciatica, unspecified side M54.40 and Other chronic pain G89.29 [facility] [address] [id number] [address] [place] [address] 15 May, 2016 Pain in right knee M25.561 ; Pain in left knee M25.562 and Other chronic pain G89.29 [facility] [address] [id number] [address] [place] [address] 14 May, 2016 [facility] [address] [facility] [id number] [address] [place] [address] 05 Apr, 2016 Other chronic pain G89.29 an d Pain in right knee M25.561 [facility] [address] [id number] [address] [place] [address] Apr, Pain in right knee M25.561 [facility] [address] [id number] [address] [place] [address] Mar, [facility] [address] [id number] [address] [place] [address] Mar, Mood disorder F39 and Contro lled type 2 diabetes mellitus without complication, without long-term current use of insulin E11.9 [facility] [address] [id number] [address] [place] [address] Mar, Pain in right knee M25.561 ; Pain in left knee M25.562 ; Other chronic pain G89.29 ; Obstructive sleep apnea syndrome G47.33 ; Mood disorder F39 and Controlled type 2 diabetes mellitus without complication, without long- term current use of insulin E11.9 [facility] [address] [id number] [address] [place] [address] Mar, [facility] [address] [id number] [address] [place] [id number] Feb, Dental examination Z01.20 [facility] [address] [id number] [address] [place] [address] Feb, [facility] [address] [id number] [address] [place] [address] Feb, Osteoarthritis of right knee , unspecified osteoarthritis type M17.9 [facility] [address] [id number] [address] [place] [address] January, [facility] [address] [id number] [address] [place] [id number] January, Dental examination Z01.20 [facility] [address] [id number] [address] [place] [address] January, [facility] [address] [id number] [address] [place] [id number] January, Dental examination Z01.20 an d Caries K02.9 [facility] [address] [id number] [address] [place] [address] Dec, Encounter for other preproce dural examination Z01.818 [facility] [address] [id number] [address] [place] [address] Dec, [facility] [address] [id number] [address] [place] [address] Dec, Knee pain M25.569 [facility] [address] [id number] [address] [place] [address] Dec, Pain in right knee M25.561 [facility] [address] [id number] [address] [place] [address] Dec, [facility] [address] [id number] [address] [place] [address] Dec, [facility] [address] [id number] [address] [place] [address] Dec, Encounter for immunization Z 23 [facility] [address] [id number] [address] [place] [address] Dec, [facility] [address] [id number] [address] [place] [address] Dec, [facility] [address] [id number] [address] [place] [address] Nov, [facility] [address] [id number] [address] [place] [address] Nov, Hypertension, benign I10 ; C ervicalgia M54.2 ; Pain in right knee M25.561 and Pain in left knee M25.562 [facility] [address] [id number] [address] [place] [address] Oct, [facility] [address] [id number] [address] [place] [address] Oct, [facility] [address] [facility] [id number] [address] [place] [address] Oct, Osteoarthritis of both knees M17.0 [place] [address] [facility] [id number] [address] [place] [address] Oct, [place] [address] [facility] [id number] [address] [place] [address] Oct, Low back pain M54.5 [place] [address] [place] [id number] [address] [place] [address] Oct, Low back pain M54.5 ; Sciati ca, unspecified side M54.30 ; Pain in right knee M25.561 ; Pain in left knee M25.562 ; Pain in right shoulder M25.511 and Pain in left shoulder M25.512 [place] [address] [place] [id number] [address] [place] [address] Oct, [place] [address] [place] [id number] [address] [place] [address] Sep, Pain in right hip M25.551 [place] [address] [place] [id number] [address] [place] [address] Sep, Acute upper respiratory infe ction, unspecified J06.9 [place] [address] [place] [id number] [address] [place] [address] Aug, Acute upper respiratory infe ction, unspecified J06.9 and Other viral agents as the cause of diseases classified elsewhere B97.89 [place] [address] [place] [id number] [address] [place] [address] Jul, Arthritis M19.90 [place] [address] [place] [id number] [address] [place] [address] Jun, Arthritis M19.90 ; Pain in r ight hip M25.551 ; Pain in left hip M25.552 ; Bilateral low back pain with sciatica, sciatica laterality unspecified M54.40 ; Neck pain M54.2 ; Upper back pain M54.9 and Knee pain, unspecified laterality M25.569 [facility] [address] [id number] [address] [place] [address] 10 May, 2015 Osteoarthritis of both knees 715.96 [facility] [address] [id number] [address] [place] [address] May, Rash 782.1 [facility] [address] [id number] [address] [place] [address] Apr, Lumbar strain 847.2 [facility] [address] [id number] [address] [place] [address] Apr, Rash 782.1 [facility] [address] [id number] [address] [place] [address] Mar, Rash 782.1 [facility] [address] [facility] [id number] [address] [place] [address] Feb, Rash 782.1 ; Hemorrhoids 455 .6 and Constipation 564.00 [facility] [address] [id number] [address] [place] [address] Feb, Osteoarthritis of both knees 715.96 [facility] [address] [id number] [address] [place] [address] January, [facility] [address] [facility] [id number] [address] [place] [address] Dec, [facility] [address] [id number] [address] [place] [address] Dec, [facility] [address] [id number] [address] [place] [address] Dec, [facility] [address] [id number] [address] [place] [address] Nov, [facility] [address] [id number] [address] [place] [address] Nov, [facility] [address] [id number] [address] [place] [address] Nov, [facility] [address] [id number] [address] [place] [address], [place] [address] Nov, [facility] [address] [id number] [address] [place] [address], [place] [address] Nov, [facility] [address] [id number] [address] [place] [address], [place] [address] Nov, [facility] [address] [id number] [address] [place] [address], [place] [address] Oct, [facility] [address] [id number] [address] [place] [address], [place] [address] Oct, [facility] [address] [id number] [address] [place] [address], [place] [address] Oct, [facility] [address] [id number] [address] [place] [address], [place] [address] Oct, [facility] [address] [id number] [address] [place] [address], [place] [address] Oct, [facility] [address] [id number] [address] [place] [address], [place] [address] Oct, [facility] [address] [id number] [address] [place] [address], [place] [address] Oct, [facility] [address] [id number] [address] [place] [address], [place] [address] Oct, 2014 [facility] [address] [id number] [address] [place] [address], [place] [address] Oct, [facility] [address] [id number] [address] [place] [address], [place] [address] Oct, [facility] [address] [id number] [address] [place] [address], [place] [address] Oct, [facility] [address] [id number] [address] [place] [address], [place] [address] Sep, [facility] [address] [id number] [address] [place] [address], [place] [address] 14 Sep, 2014 [facility] [address] [id number] [address] [place] [address], [place] [address] Sep, [facility] [address] [id number] [address] [place] [address], [place] [address] Sep, [facility] [address] [id number] [address] [place] [address], [place] [address] Sep, [facility] [address] [id number] [address] [place] [address], [place] [address] Sep, [facility] [address] [id number] [address] [place] [address], [place] [address] Aug, [facility] [address] [id number] [address] [place] [address], [place] [address] Aug, [facility] [address] [id number] [address] [place] [address], [place] [address] Aug, [facility] [address] [id number] [address] [place] [address], [place] [address] Aug, [facility] [address] [id number] [address] [place] [address], [place] [address] Aug, [facility] [address] [id number] [address] [place] [address], [place] [address] Aug, [facility] [address] [id number] [address] [place] [address], [place] [address] Aug, [facility] [address] [id number] [address] [place] [address], [place] [address] Aug, [facility] [address] [id number] [address] [place] [address], [place] [address] Aug, [facility] [address] [id number] [address] [place] [address], [place] [address] Aug, [facility] [address] [id number] [address] [place] [address], [place] [address] Jul, [facility] [address] [id number] [address] [place] [address], [place] [address] Jul, [facility] [address] [id number] [address] [place] [address], [place] [address] Jul, [facility] [address] [id number] [address] [place] [address], [place] [address] Jul, [facility] [address] [id number] [address] [place] [address], [place] [address] Jun, [facility] [address] [id number] [address] [place] [address], [place] [address] Jun, [facility] [address] [id number] [address] [place] [address], [place] [address] Jun, [facility] [address] [id number] [address] [place] [address], [place] [address] Jun, [facility] [address] [id number] [address] [place] [address], [place] [address] Jun, [facility] [address] [id number] [address] [place] [address], [place] [address] Jun, [facility] [address] [id number] [address] [place] [address], [place] [address] Jun, [facility] [address] [id number] [address] [place] [address] Jun, [facility] [address] [id number] [address] [place] [address] May, [facility] [address] [id number] [address] [place] [address], [place] [address] May, [facility] [address] [id number] [address] [place] [address], [place] [address] May, [facility] [address] [id number] [address] [place] [address], [place] [address] May, [facility] [address] [id number] [facility] [place] [address] 15 May, 2013 [facility] [address] [id number] [address] [place] [address], [place] [address] May, [facility] [address] [id number] [address] [place] [address], [place] [address] May, [facility] [address] [id number] [address] [place] [address], [place] [address] May, [facility] [address] [id number] [address] [place] [address], [place] [address] Apr, [facility] [address] [id number] [address] [place] [address], [place] [address] Apr, [facility] [address] [id number] [address] [place] [address], [place] [address] Apr, [facility] [address] [id number] [address] [place] [address], [place] [address] Apr, [facility] [address] [id number] [address] [place] [address], [place] [address] Apr, [facility] [address] [id number] [address] [place] [address], [place] [address] Apr, [facility] [address] [id number] [address] [place] [address], [place] [address] Apr, [facility] [address] [id number] [address] [place] [address], [place] [address] Apr, [facility] [address] [id number] [address] [place] [address], [place] [address] Apr, [facility] [address] [id number] [address] [place] [address], [place] [address] Apr, [facility] [address] [id number] [address] [place] [address], [place] [address] Apr, [facility] [address] [id number] [address] [place] [address], [place] [address] Apr, [facility] [address] [id number] [address] [place] [address], [place] [address] Mar, [facility] [address] [id number] [address] [place] [address], [place] [address] Mar, [facility] [address] [id number] [address] [place] [address], [place] [address] Mar, [facility] [address] [id number] [address] [place] [address], [place] [address] Mar, [facility] [address] [id number] [address] [place] [address], [place] [address] Mar, [facility] [address] [id number] [address] [place] [address], [place] [address] Mar, [facility] [address] [id number] [address] [place] [address], [place] [address] Feb, [facility] [address] [id number] [address] [place] [address], [place] [address] Feb, [facility] [address] [id number] [address] [place] [address], [place] [address] Feb, [facility] [address] [id number] [address] [place] [address], [place] [address] Feb, [facility] [address] [id number] [address] [place] [address], [place] [address] Feb, [facility] [address] [id number] [address] [place] [address], [place] [address] Feb, [facility] [address] [id number] [address] [place] [address], [place] [address] Feb, [facility] [address] [id number] [address] [place] [address], [place] [address] Feb, [facility] [address] [id number] [address] [place] [address], [place] [address] 05 Feb, 2014 [facility] [address] [id number] [address] [place] [address], [place] [address] Feb, [facility] [address] [id number] [facility] [place] [address] Feb, [facility] [address] [id number] [address] [place] [address], [place] [address] Feb, [facility] [address] [id number] [address] [place] [address], [place] [address] Feb, [facility] [address] [id number] [address] [place] [address], [place] [address] Feb, [facility] [address] [id number] [address] [place] [address], [place] [address] January, [facility] [address] [id number] [address] [place] [address], [place] [address] January, [facility] [address] [id number] [address] [place] [address], [place] [address] January, [facility] [address] [id number] [address] [place] [address], [place] [address] January, [facility] [address] [id number] [address] [place] [address], [place] [address] January, [facility] [address] [id number] [address] [place] [address], [place] [address] January, [facility] [address] [id number] [address] [place] [address], [place] [address] Dec, [facility] [address] [id number] [address] [place] [address], [place] [address] Dec, [facility] [address] [id number] [address] [place] [address], [place] [address] Dec, [facility] [address] [id number] [address] [place] [address], [place] [address] Dec, [facility] [address] [id number] [address] [place] [address], [place] [address] Dec, [facility] [address] [id number] [facility] [place] [address] Dec, [facility] [address] [id number] [address] [place] [address], [place] [address] Dec, [facility] [address] [id number] [address] [place] [address], [place] [address] Dec, [facility] [address] [id number] [address] [place] [address], [place] [address] Nov, [facility] [address] [id number] [address] [place] [address], [place] [address] Nov, [facility] [address] [id number] [address] [place] [address], [place] [address] Nov, [facility] [address] [id number] [address] [place] [address], [place] [address] Nov, [facility] [address] [id number] [address] [place] [address], [place] [address] Nov, [facility] [address] [id number] [address] [place] [address], [place] [address] Nov, [facility] [address] [id number] [address] [place] [address], [place] [address] Nov, [facility] [address] [id number] [address] [place] [address], [place] [address] Nov, [facility] [address] [id number] [address] [place] [address], [place] [address] Oct, [facility] [address] [id number] [address] [place] [address], [place] [address] Oct, [facility] [address] [id number] [address] [place] [address], [place] [address] Oct, [facility] [address] [id number] [address] [place] [address], [place] [address] Oct, [facility] [address] [id number] [address] [place] [address], [place] [address] Oct, [facility] [address] [id number] [address] [place] [address], [place] [address] Oct, [facility] [address] [id number] [address] [place] [address], [place] [address] Oct, [facility] [address] [id number] [address] [place] [address], [place] [address] Oct, [facility] [address] [id number] [address] [place] [address], [place] [address] Oct, [facility] [address] [id number] [address] [place] [address], [place] [address] Oct, [facility] [address] [id number] [address] [place] [address], [place] [address] Sep, [facility] [address] [id number] [address] [place] [address], [place] [address] Sep, [facility] [address] [id number] [address] [place] [address], [place] [address] Sep, [facility] [address] [id number] [address] [place] [address], [place] [address] Sep, [facility] [address] [id number] [address] [place] [address], [place] [address] Sep, [facility] [address] [id number] [address] [place] [address], [place] [address] Sep, [facility] [address] [id number] [address] [place] [address], [place] [address] Aug, [facility] [address] [id number] [address] [place] [address], [place] [address] Aug, [facility] [address] [id number] [address] [place] [address], [place] [address] Aug, [facility] [address] [id number] [address] [place] [address], [place] [address] Aug, [facility] [address] [id number] [address] [place] [address], [place] [address] Aug, [facility] [address] [id number] [address] [place] [address], [place] [address] Aug, [facility] [address] [id number] [address] [place] [address], [place] [address] Aug, [facility] [address] [id number] [address] [place] [address], [place] [address] Aug, [facility] [address] [id number] [address] [place] [address], [place] [address] Jul, [facility] [address] [id number] [address] [place] [address], [place] [address] Jul, [facility] [address] [id number] [address] [place] [address], [place] [address] Jul, [facility] [address] [address] [id number] [address] [place] [address], [place] [address] Jul, [facility] [address] [id number] [address] [place] [address], [place] [address] Jul, [facility] [address] [id number] [address] [place] [address], [place] [address] Jul, [facility] [address] [id number] [address] [place] [address], [place] [address] Jun, [facility] [address] [id number] [address] [place] [address], [place] [address] Jun, [facility] [address] [id number] [address] [place] [address], [place] [address] Jun, [facility] [address] [id number] [address] [place] [address], [place] [address] 24 May, 2013 [facility] [address] [id number] [address] [place] [address], [place] [address] 11 May, 2013 [facility] [address] [id number] [address] [place] [address], [place] [address] May, [facility] [address] [id number] [address] [place] [address], [place] [address] Apr, [facility] [address] [id number] [address] [place] [address], [place] [address] Apr, [facility] [address] [id number] [address] [place] [address], [place] [address] Apr, [facility] [address] [id number] [address] [place] [address], [place] [address] Apr, [facility] [address] [id number] [address] [place] [address], [place] [address] Mar, [facility] [address] [id number] [address] [place] [address], [place] [address] Mar, [facility] [address] [id number] [address] [place] [address], [place] [address] Mar, [facility] [address] [id number] [address] [place] [address], [place] [address] Mar, [facility] [address] [id number] [address] [place] [address], [place] [address] Feb, [facility] [address] [id number] [address] [place] [address], [place] [address] Feb, [facility] [address] [id number] [address] [place] [address], [place] [address] Feb, [facility] [address] [id number] [address] [place] [address], [place] [address] Feb, [facility] [address] [id number] [address] [place] [address], [place] [address] January, [facility] [address] [id number] [address] [place] [address], [place] [address] January, [facility] [address] [id number] [address] [place] [address], [place] [address] January, [facility] [address] [id number] [address] [place] [address], [place] [address] Nov, [facility] [address] [id number] [address] [place] [address], [place] [address] Nov, [facility] [address] [id number] [address] [place] [address], [place] [address] Oct, [facility] [address] [id number] [address] [place] [address], [place] [address] Oct, [facility] [address] [id number] [address] [place] [address], [place] [address] Oct, [facility] [address] [id number] [address] [place] [address], [place] [address] Oct, [facility] [address] [id number] [address] [place] [address], [place] [address] Sep, [facility] [address] [id number] [address] [place] [address], [place] [address] Sep, [facility] [address] [id number] [address] [place] [address], [place] [address] Sep, [facility] [address] [id number] [address] [place] [address], [place] [address] Aug, [facility] [address] [id number] [address] [place] [address], [place] [address] Aug, [facility] [address] [id number] [address] [place] [address], [place] [address] Aug, [facility] [address] [id number] [address] [place] [address], [place] [address] Aug, [facility] [address] [id number] [address] [place] [address], [place] [address] Aug, [facility] [address] [id number] [address] [place] [address], [place] [address] Aug, [facility] [address] [id number] [address] [place] [address], [place] [address] Jul, [facility] [address] [id number] [address] [place] [address], [place] [address] Jul, [facility] [address] [id number] [address] [place] [address], [place] [address] Jun, [facility] [address] [id number] [address] [place] [address], [place] [address] Jun, [facility] [address] [id number] [address] [place] [address], [place] [address] Jun, [facility] [address] [id number] [address] [place] [address], [place] [address] Apr, [facility] [address] [id number] [address] [place] [address], [place] [address] Apr, [facility] [address] [id number] [address] [place] [address], [place] [address] Mar, [facility] [address] [id number] [address] [place] [address], [place] [address] Mar, [facility] [address] [id number] [address] [place] [address], [place] [address] Mar, [facility] [address] [id number] [address] [place] [address], [place] [address] Mar, [facility] [address] [id number] [address] [place] [address], [place] [address] Feb, [facility] [address] [id number] [address] [place] [address] Feb, [facility] [address] [id number] [address] [place] [address], [place] [address] Feb, [facility] [address] [id number] [address] [place] [address], [place] [address] January, [facility] [address] [id number] [address] [place] [address], [place] [address] January, [facility] [address] [id number] [address] [place] [address] January, [facility] [address] [id number] [address] [place] [address], [place] [address] January, [facility] [address] [id number] [address] [place] [address], [place] [address] Dec, [facility] [address] [id number] [address] [place] [address], [place] [address] Dec, [facility] [address] [id number] [address] [place] [address], [place] [address] Nov, [facility] [address] [id number] [address] [place] [address], [place] [address] Nov, [facility] [address] [id number] [address] [place] [address], [place] [address] 16 Oct, 2011 [facility] [address] [id number] [address] [place] [address], [place] [address] Oct, [facility] [address] [id number] [address] [place] [address], [place] [address] Sep, [facility] [address] [id number] [address] [place] [address], [place] [address] Sep, [facility] [address] [id number] [address] [place] [address], [place] [address] Sep, [facility] [address] [id number] [address] [place] [address], [place] [address] Sep, [facility] [address] [id number] [address] [place] [address], [place] [address] Aug, [facility] [address] [id number] [address] [place] [address], [place] [address] Aug, [facility] [address] [id number] [address] [place] [address], [place] [address] Aug, [facility] [address] [id number] [address] [place] [address], [place] [address] Jul, [facility] [address] [id number] [address] [place] [address] Aug, [facility] [address] [id number] [address] [place] [address] Aug, [facility] [address] [id number] [address] [place] [address] Aug, [facility] [address] [id number] [address] [place] [address] Aug, [facility] [address] [id number] [address] [place] [address] Jul, [facility] [address] [id number] [address] [place] [address] Jul, [facility] [address] [id number] [address] [place] [address] Jul, [facility] [address] [id number] [address] [place] [address] Jun, [facility] [address] [id number] [address] [place] [address] Jun, [facility] [address] [id number] [address] [place] [address] Jun, [facility] [address] [id number] [address] [place] [address] Apr, [facility] [address] [id number] [address] [place] [address] Mar, IMMUNIZATIONS No Known Immunizations SOCIAL HISTORY [...]
--- OUTSIDE RECORDS SUMMARY | 2020-03-18 14:34 | XMS REPORT ---
Author Author George WAYNE Organization [facility] Address [address] [place] [address] Care Team Providers Care Operations Lieutenant Name Role Phone REYNA WAYNE Unavailable PROBLEMS Type Condition ICD9-CM Code XKP18-RJ Code Onset Dates Condition S tatus SNOMED Code Problem Hypertension, benign I10 Active 47973343 Problem Other chronic pain G89.29 Active 8 4458475 Problem Lumbago with sciatica, unspecified side M54.40 Active 044171024 Problem Controlled type 2 diabetes m ellitus without complication, without long- term current use of insulin E11.9 Active 754431253 Problem Lumbago with sciatica, right side M54.41 Active 772114525 Problem Adjustment disorder with disturbance of emotion F4 3.29 Active 13467152 Problem MELE (obstructive sleep apnea) G47.33 Active 03554234 Problem Non morbid obesity E66.9 Active 4 52030462 Problem Hammer toe of left foot M20.42 Active 326475283 Problem Mood disorder F39 Active 132819 05 Problem Deformity of left foot M21.962 Active 364652025 Problem Lumbago with sciatica, left side M54.42 Active 717667012 Problem Erectile dysfunction due to diseases classified elsewhere N52.1 Active 053797059 Problem Obstructive sleep apnea syndrome G47.33 Active 19986863 Problem Type 2 diabetes mellitus wit h diabetic neuropathy, without long-term current use of insulin E11.40 Active 98917 006 Problem Essential hypertension I10 Active 32811763 ALLERGIES No Information ENCOUNTERS Encounter Location Date Diagnosis [facility] [address] [facility] [id number] [address] [place] [phone] May, [facility] [address] [facility] [id number] [address] [place] [address] Apr, Lumbago with sciatica, unspe cified side M54.40 [facility] [address] [place] [id number] [address] [place] [address] Apr, [place] [address] [address] Apr, [address] [address] Apr, Hammer toe of left foot M20.42 ; Chest p ain R07.9 ; Preoperative examination Z01.818 and Morbid obesity E66.01 [place] [address] [address] Apr, Morbid obesity E66.01 ; Bron chitis J40 and High risk medications (not anticoagulants) long-term use Z79.899 [place] [address] [address] Apr, Lumbago with sciatica, unspe cified side M54.40 [place] [address] [address] Apr, [place] [address] [address] Mar, Lumbar neuritis M54.16 and M orbid obesity E66.01 [place] [address] [address] Mar, [place] [address] [address] Mar, [place] [address] [address] Mar, Lumbago with sciatica, unspe cified side M54.40 [place] [address] [address] Mar, Morbid obesity E66.01 ; Coug marco R05 ; 2+ pitting edema R60.9 and Controlled type 2 diabetes mellitus without complication, without long-term current use of insulin E11.9 [place] [address] [place] [address] Feb, [facility] [address] [id number] [address] [place] [address] Feb, Lumbago with sciatica, unspe cified side M54.40 [facility] [address] [id number] [address] [place] [address] Feb, [facility] [address] [id number] [address] [place] [address] Feb, Controlled type 2 diabetes m ellitus without complication, without long-term current use of insulin E11.9 and Morbid obesity E66.01 [facility] [address] [facility] [id number] [address] [place] [address] January, Deformity of left foot M21.9 62 [facility] [address] [facility] [id number] [address] [place] [address] January, [facility] [address] [facility] [id number] [address] [place] [phone] January, Lumbago with sciatica, unspe cified side M54.40 [facility] [address] [facility] [id number] [address] [place] [address] January, [facility] [address] [facility] [id number] [address] [place] [address] January, Lumbago with sciatica, unspe cified side M54.40 [facility] [address] [id number] [address] [place] [address] January, [facility] [address] [id number] [address] [place] [address] January, Acute right-sided thoracic b ack pain M54.6 [facility] [address] [id number] [address] [place] [address] January, Acute right-sided thoracic b ack pain M54.6 [facility] [address] [id number] [address] [place] [address] January, Chest pain, unspecified type R07.9 ; Morbid obesity E66.01 and Scabies B86 [place] [address] [facility] [id number] [address] [place] [address] Dec, Lumbago with sciatica, unspe cified side M54.40 [place] [address] [address] [place] [id number] [address] [place] [address] Dec, Toenail fungus B35.1 [place] [address] [address] [facility] [id number] [address] [place] [address] Dec, Toenail fungus B35.1 [place] [address] [place] [id number] [address] [place] [address] Dec, Acute right-sided thoracic b ack pain M54.6 [place] [address] [place] [address] Dec, Lumbago with sciatica, unspe cified side M54.40 [place] [address] [place] [id number] [address] [place] [address] Nov, Hammer toe of left foot M20. 42 ; Deformity of left foot M21.962 and Type 2 diabetes mellitus with diabetic neuropathy, without long-term current use of insulin E11.40 [facility] [address] [place] [id number] [address] [place] [address] Nov, Acute right-sided thoracic b ack pain M54.6 ; Morbid obesity E66.01 and Rt flank pain R10.9 [place] [address] [facility] [id number] [address] [place] [address] Nov, Lumbago with sciatica, unspe cified side M54.40 [place] [address] [place] [id number] [address] [place] [address] Oct, Lumbago with sciatica, unspe cified side M54.40 [facility] [address] [place] [id number] [address] [place] [address] Sep, Lumbago with sciatica, unspe cified side M54.40 [facility] [address] [place] [id number] [address] [place] [address] Sep, [facility] [address] [place] [id number] [address] [place] [address] Sep, BMI 40.0-44.9, adult Z68.41 ; Lumbago with sciatica, left side M54.42 ; Lumbago with sciatica, right side M54.41 and Other chronic pain G89.29 [place] [address] [place] [id number] [address] [place] [address] Aug, Lumbago with sciatica, unspe cified side M54.40 [place] [address] [place] [id number] [address] [place] [address] Aug, Type 2 diabetes mellitus wit h diabetic neuropathy, without long- term current use of insulin E11.40 ; Hammer toe of left foot M20.42 ; Hypertension, benign I10 and Frequent headaches R51 [place] [address] [place] [id number] [address] [place] [address] Jul, Lumbago with sciatica, unspe cified side M54.40 [place] [address] [place] [id number] [address] [place] [address] Jul, [place] [address] [place] [id number] [address] [place] [address] Jul, Essential hypertension I10 a nd Controlled type 2 diabetes mellitus without complication, without long-term current use of insulin E11.9 [place] [address] [facility] [id number] [address] [place] [address] Jul, Essential hypertension I10 ; Controlled type 2 diabetes mellitus without complication, without long-term current use of insulin E11.9 and BMI 40.0-44.9, adult Z68.41 [place] [address] [place] [id number] [address] [place] [address] Jul, Dysfunction of left eustachi an tube H69.82 [facility] [address] [facility] [id number] [address] [place] [address] Jul, Lumbago with sciatica, unspe cified side M54.40 [facility] [address] [facility] [id number] [address] [place] [id number] Jun, Dental examination Z01.20 [facility] [address] [facility] [id number] [address] [place] [address] Jun, Lumbago with sciatica, unspe cified side M54.40 and Encounter for immunization Z23 [facility] [address] [facility] [id number] [address] [place] [address] Jun, Dysfunction of left eustachi an tube H69.[id number] [place] [address] [id number] Jun, Dental examination Z01.20 [facility] [address] [facility] [id number] [address] [place] [address] Jun, Other chronic pain G89.29 [facility] [address] [place] [id number] [place] [id number] Jun, Dental examination Z01.20 [facility] [address] [facility] [id number] [address] [place] [address] Jun, [facility] [address] [facility] [id number] [address] [place] [address] Jun, Bronchitis J40 ; Dysfunction of left eustachian tube H69.82 and BMI 45.0-49.9, adult Z68.42 [facility] [address] [facility] [id number] [address] [place] [address] Jun, Lumbago with sciatica, unspe cified side M54.40 [facility] [address] [facility] [id number] [address] [place] [address] May, Type 2 diabetes mellitus wit h diabetic neuropathy, without long- term current use of insulin E11.40 and Hypertension, benign I10 [facility] [address] [place] [id number] [address] [place] [address] May, Lumbago with sciatica, unspe cified side M54.40 [facility] [address] [place] [id number] [address] [place] [address] Apr, [facility] [address] [place] [id number] [address] [place] [address] Apr, Controlled type 2 diabetes m ellitus without complication, without long-term current use of insulin E11.9 ; Insect bite (nonvenomous), right ankle, initial encounter S90.561A ; Local infection of the skin and subcutaneous tissue, unspecified L08.9 ; Acute swimmer''s ear of left side H60.332 and BMI 45.0-49.9, adult Z68.42 [place] [address] [place] [id number] [address] [place] [address] Apr, Lumbago with sciatica, unspe cified side M54.40 [place] [address] [place] [id number] [address] [place] [address] Mar, [place] [address] [place] [id number] [address] [place] [address] Mar, Lumbago with sciatica, unspe cified side M54.40 [place] [address] [place] [id number] [address] [place] [phone] Feb, Lumbago with sciatica, unspe cified side M54.40 [place] [address] [place] [id number] [address] [place] [address] Feb, BMI 45.0-49.9, adult Z68.42 and Obstructive sleep apnea syndrome G47.33 [place] [address] [place] [id number] [address] [place] [address] January, Lumbar neuritis M54.16 [place] [address] [place] [id number] [address] [place] [address] January, Lumbago with sciatica, unspe cified side M54.40 [place] [address] [place] [id number] [address] [place] [address] Dec, Controlled type 2 diabetes m maribell without complication, without long-term current use of insulin E11.9 ; Erectile dysfunction due to diseases classified elsewhere N52.1 and Mood disorder F39 [place] [address] [address] Dec, Lumbago with sciatica, unspe cified side M54.40 [place] [address] [address] Dec, Obstructive sleep apnea synd luis G47.33 [place] [address] [address] Nov, Lumbago with sciatica, unspe cified side M54.40 ; Hypertension, benign I10 and Mood disorder F39 [place] [address] [place] [id number] [place] [address] Nov, Other chronic pain G89.29 [place] [address] [address] Nov, Lumbago with sciatica, unspe cified side M54.40 [facility] [id number] [place] [phone] Nov, Dental examination Z01.20 [place] [address] [place] [id number] [address] [place] [address] Oct, [place] [address] [place] [id number] [place] [address] Oct, Lumbago with sciatica, unspe cified side M54.40 [place] [address] [place] [id number] [address] [place] [address] Oct, Lumbago with sciatica, unspe cified side M54.40 [facility] [address] [id number] [address] [place] [address] 14 Oct, 2017 [facility] [address] [id number] [address] [place] [address] Oct, [facility] [address] [id number] [address] [place] [address] [id number] 13 Oct, 2017 Dental examination Z01.20 [facility] [address] [id number] [address] [place] [address] Oct, [facility] [address] [facility] [id number] [address] [place] [address] Oct, Pain in right knee M25.561 [facility] [address] [facility] [id number] [address] [place] [address] Sep, [facility] [address] [facility] [id number] [address] [place] [address] Sep, Other chronic pain G89.29 [facility] [address] [facility] [id number] [address] [place] [address] Sep, Lumbago with sciatica, unspe cified side M54.40 [facility] [address] [facility] [id number] [address] [place] [address] Sep, [facility] [address] [facility] [id number] [address] [place] [address] Sep, Viral URI J06.9 and BMI 45.0 -49.9, adult Z68.42 [facility] [address] [facility] [id number] [address] [place] [address] Aug, Foreign body hand S60.559A a nd BMI 45.0-49.9, adult Z68.42 [facility] [address] [facility] [id number] [address] [place] [address] Aug, [facility] [address] [facility] [id number] [address] [place] [address] Aug, Lumbago with sciatica, unspe cified side M54.40 [facility] [address] [facility] [id number] [address] [place], [place] [id number] Aug, Vertigo R42 ; Dysfunction of both eustachian tubes H69.83 ; Low back pain M54.5 and Other chronic pain G89.29 [facility] [address] [place] [id number] [address] [place] [phone] Aug, Dizziness R42 and Acute bila teral otitis media H66.93 [place] [address] [address] [facility] [id number] [address] [place] [address] Aug, Lumbago with sciatica, unspe cified side M54.40 [facility] [address] [place] [address] [id number] Jul, Dental examination Z01.20 [place] [address] [place] [id number] [address] [place] [address] Jul, [facility] [address] [place] [id number] [address] [place] [address] Jul, [place] [address] [address] Jul, Dysfunction of both eustachi an tubes H69.83 [place] [address] [place] [id number] [address] [place] [address] Jul, Controlled type 2 diabetes m taraitus without complication, without long-term current use of insulin E11.9 [facility] [address] [place] [id number] [address] [place] [address] Jul, Controlled type 2 diabetes m ellitus without complication, without long-term current use of insulin E11.9 [facility] [address] [place] [id number] [address] [place] [phone] 06 Jul, 2017 Dizziness R42 and BMI 40.0-4 4.9, adult Z68.41 [place] [address] [id number] [address] [place] [address] Jul, Controlled type 2 diabetes m ellitus without complication, without long-term current use of insulin E11.9 [facility] [address] [id number] [address] [place] [phone] Jul, Lumbago with sciatica, unspe cified side M54.40 [facility] [address] [id number] [place] [address] [id number] Jul, Dental examination Z01.20 [facility] [address] [id number] [address] [place] [address] Jun, [facility] [address] [id number] [place] [address] [id number] Jun, Dental examination Z01.20 [place] [address] [id number] [address] [place] [phone] Jun, Controlled type 2 diabetes m ellitus without complication, without long-term current use of insulin E11.9 [facility] [address] [id number] [address] [place] [address] Jun, Lumbago with sciatica, unspe cified side M54.40 [facility] [address] [id number] [address] [place] [address] [id number] May, Dental examination Z01.20 [facility] [address] [id number] [address] [place] [address] May, Controlled type 2 diabetes m ellitus without complication, without long-term current use of insulin E11.9 [facility] [address] [id number] [address] [place] [address] [id number] May, Dental examination Z01.20 [facility] [address] [id number] [address] [place] [address] May, Bronchitis J40 ; Dry mouth R 68.2 ; Non morbid obesity E66.9 and Controlled type 2 diabetes mellitus without complication, without long-term current use of insulin E11.9 [facility] [address] [id number] [address] [place] [phone] 16 May, 2017 Encounter for immunization Z 23 [facility] [address] [id number] [address] [place] [phone] 07 May, 2017 Lumbago with sciatica, unspe cified side M54.40 [facility] [address] [id number] [address] [place] [phone] 05 May, 2017 [facility] [address] [id number] [place] [address] [id number] Apr, Dental examination Z01.20 [facility] [address] [id number] [address] [place] [address] Apr, Lumbago with sciatica, unspe cified side M54.40 [facility] [address] [id number] [address] [place] [phone] Mar, Lumbago with sciatica, left side M54.42 [facility] [address] [facility] [id number] [address] [place] [phone] Mar, [facility] [address] [facility] [id number] [address] [place] [address] Mar, Lumbar neuritis M54.16 [facility] [address] [id number] [address] [place] [phone] Mar, [facility] [address] [id number] [place] [address] [id number] Mar, Dental examination Z01.20 [facility] [address] [id number] [address] [place] [phone] Mar, MELE (obstructive sleep apnea ) G47.33 ; Neuropathy involving both lower extremities G57.93 and Frequent headaches R51 [facility] [address] [id number] [address] [place] [phone] Mar, Lumbago with sciatica, unspe cified side M54.40 [place] [address] [id number] [address] [place] [phone] Feb, Lumbago with sciatica, unspe cified side M54.40 and Controlled type 2 diabetes mellitus without complication, without long-term current use of insulin E11.9 [place] [address] [id number] [address] [place] [phone] January, Hypertension, benign I10 and Bilateral low back pain with sciatica, sciatica laterality unspecified M54.40 [place] [address] [id number] [address] [place] [phone] January, Hypertension, benign I10 ; L umbago with sciatica, unspecified side M54.40 ; Other chronic pain G89.29 and Controlled type 2 diabetes mellitus without complication, without long-term current use of insulin E11.9 [place] [address] [id number] [address] [place] [phone] January, Lumbar neuritis M54.16 [place] [address] [id number] [address] [place] [phone] January, [place] [address] [id number] [address] [place] [phone] Dec, Lumbago with sciatica, right side M54.41 and Lumbar neuritis M54.16 [place] [address] [id number] [address] [place] [phone] Dec, Lumbar neuritis M54.16 [place] [address] [id number] [address] [place] [phone] Dec, Lumbar neuritis M54.16 [place] [address] [id number] [address] [place] [phone] Nov, Lumbar neuritis M54.16 ; Lum bago with sciatica, right side M54.41 ; Controlled type 2 diabetes mellitus without complication, without long-term current use of insulin E11.9 and Rash and nonspecific skin eruption R21 [place] [address] [id number] [address] [place] [phone] Nov, Lumbar neuritis M54.16 and P alexi miroslava L23.7 [place] [id number] [place] [phone] Oct, Lumbar neuritis M54.16 ; Cou ghing R05 and Mood disorder F39 [place] [address] [place] [phone] Sep, Lumbago with sciatica, right side M54.41 [place] [address] [phone] Sep, Adjustment disorder with dis turbance of emotion F43.29 and Pain management R52 [place] [address] [phone] Sep, [place] [address] [phone] Sep, [place] [address] [address] [address] Sep, Controlled type 2 diabetes evens reyna without complication, without long-term current use of insulin E11.9 and Lumbago with sciatica, unspecified side M54.40 [place] [address] [address] Aug, Controlled type 2 diabetes evens reyna without complication, without long-term current use of insulin E11.9 ; Pain in right knee M25.561 ; Pain in left knee M25.562 ; Other chronic pain G89.29 ; Lumbago with sciatica, right side M54.41 ; Neck pain M54.2 and Encounter for immunization Z23 [place] [id number] [place] [address] Jul, [place] [address] [address] Jul, Controlled type 2 diabetes evens reyna without complication, without long-term current use of insulin E11.9 [facility] [address] [id number] [address] [place] [id number] 17 Jul, 2016 [facility] [address] [id number] [address] [place] [phone] 15 Jul, 2016 [facility] [address] [id number] [address] [place] [address] Jul, Lumbago with sciatica, left side M54.42 ; Lumbago with sciatica, right side M54.41 and Other chronic pain G89.29 [facility] [address] [id number] [address] [place] [address] Jul, [facility] [address] [id number] [address] [place] [address] Jul, [facility] [address] [id number] [address] [place] [address] Jun, [facility] [address] [id number] [address] [place] [phone] Jun, Lumbago with sciatica, right side M54.41 and Other chronic pain G89.29 [facility] [address] [id number] [address] [place] [address] Jun, Cervicalgia M54.2 ; Lumbago with sciatica, unspecified side M54.40 and Other chronic pain G89.29 [facility] [address] [id number] [address] [place] [address] 15 May, 2016 Pain in right knee M25.561 ; Pain in left knee M25.562 and Other chronic pain G89.29 [facility] [address] [id number] [address] [place] [phone] 14 May, 2016 [facility] [address] [facility] [id number] [address] [place] [phone] 05 Apr, 2016 Other chronic pain G89.29 an d Pain in right knee M25.561 [facility] [address] [id number] [address] [place] [phone] Apr, Pain in right knee M25.561 [facility] [address] [id number] [address] [place] [address] Mar, [facility] [address] [id number] [address] [place] [address] Mar, Mood disorder F39 and Contro lled type 2 diabetes mellitus without complication, without long-term current use of insulin E11.9 [facility] [address] [id number] [address] [place] [address] Mar, Pain in right knee M25.561 ; Pain in left knee M25.562 ; Other chronic pain G89.29 ; Obstructive sleep apnea syndrome G47.33 ; Mood disorder F39 and Controlled type 2 diabetes mellitus without complication, without long- term current use of insulin E11.9 [facility] [address] [id number] [address] [place] [address] Mar, [facility] [address] [id number] [address] [place] [id number] Feb, Dental examination Z01.20 [facility] [address] [id number] [address] [place] [phone] Feb, [facility] [address] [id number] [address] [place] [phone] Feb, Osteoarthritis of right knee , unspecified osteoarthritis type M17.9 [facility] [address] [id number] [address] [place] [phone] January, [facility] [address] [id number] [address] [place] [id number] January, Dental examination Z01.20 [facility] [address] [id number] [address] [place] [address] January, [facility] [address] [id number] [address] [place] [id number] January, Dental examination Z01.20 an d Caries K02.9 [facility] [address] [id number] [address] [place] [phone] Dec, Encounter for other preproce dural examination Z01.818 [facility] [address] [id number] [address] [place] [address] Dec, [facility] [address] [id number] [address] [place] [address] Dec, Knee pain M25.569 [facility] [address] [id number] [address] [place] [address] Dec, Pain in right knee M25.561 [facility] [address] [id number] [address] [place] [address] Dec, [facility] [address] [id number] [address] [place] [phone] Dec, [facility] [address] [id number] [address] [place] [phone] Dec, Encounter for immunization Z 23 [facility] [address] [id number] [address] [place] [phone] Dec, [facility] [address] [id number] [address] [place] [phone] Dec, [facility] [address] [id number] [address] [place] [phone] Nov, [facility] [address] [id number] [address] [place] [address] Nov, Hypertension, benign I10 ; C ervicalgia M54.2 ; Pain in right knee M25.561 and Pain in left knee M25.562 [facility] [address] [id number] [address] [place] [phone] Oct, [facility] [address] [id number] [address] [place] [phone] Oct, [facility] [address] [facility] [id number] [address] [place] [phone] Oct, Osteoarthritis of both knees M17.0 [place] [address] [address] [facility] [id number] [address] [place] [phone] Oct, [place] [address] [address] [facility] [id number] [address] [place] [phone] Oct, Low back pain M54.5 [place] [address] [address] [place] [id number] [address] [place] [phone] Oct, Low back pain M54.5 ; Sciati ca, unspecified side M54.30 ; Pain in right knee M25.561 ; Pain in left knee M25.562 ; Pain in right shoulder M25.511 and Pain in left shoulder M25.512 [place] [address] [address] [place] [id number] [address] [place] [phone] Oct, [place] [address] [address] [place] [id number] [address] [place] [address] Sep, Pain in right hip M25.551 [place] [address] [address] [place] [id number] [address] [place] [phone] Sep, Acute upper respiratory infe ction, unspecified J06.9 [place] [address] [address] [place] [id number] [address] [place] [address] Aug, Acute upper respiratory infe ction, unspecified J06.9 and Other viral agents as the cause of diseases classified elsewhere B97.89 [place] [address] [address] [place] [id number] [address] [place] [phone] Jul, Arthritis M19.90 [place] [address] [address] [place] [id number] [address] [place] [phone] Jun, Arthritis M19.90 ; Pain in r ight hip M25.551 ; Pain in left hip M25.552 ; Bilateral low back pain with sciatica, sciatica laterality unspecified M54.40 ; Neck pain M54.2 ; Upper back pain M54.9 and Knee pain, unspecified laterality M25.569 [facility] [address] [id number] [address] [place] [phone] 10 May, 2015 Osteoarthritis of both knees 715.96 [facility] [address] [id number] [address] [place] [phone] May, Rash 782.1 [facility] [address] [id number] [address] [place] [phone] Apr, Lumbar strain 847.2 [facility] [address] [id number] [address] [place] [phone] Apr, Rash 782.1 [facility] [address] [id number] [address] [place] [address] Mar, Rash 782.1 [facility] [address] [facility] [id number] [address] [place] [address] Feb, Rash 782.1 ; Hemorrhoids 455 .6 and Constipation 564.00 [facility] [address] [id number] [address] [place] [phone] Feb, Osteoarthritis of both knees 715.96 [facility] [address] [id number] [address] [place] [phone] January, [facility] [address] [facility] [id number] [address] [place] [phone] Dec, [facility] [address] [id number] [address] [place] [address] Dec, [facility] [address] [id number] [address] [place] [phone] Dec, [facility] [address] [id number] [address] [place] [phone] Nov, [facility] [address] [id number] [address] [place] [phone] Nov, [facility] [address] [id number] [address] [place] [phone] Nov, [facility] [address] [id number] [address] [place] [address], [place] [address] Nov, [facility] [address] [id number] [address] [place] [address], [place] [address] Nov, [facility] [address] [id number] [address] [place] [address], [place] [address] Nov, [facility] [address] [id number] [address] [place] [address], [place] [address] Oct, [facility] [address] [id number] [address] [place] [address], [place] [address] Oct, [facility] [address] [id number] [address] [place] [address], [place] [address] Oct, [facility] [address] [id number] [address] [place] [address], [place] [address] Oct, [facility] [address] [id number] [address] [place] [address], [place] [address] Oct, [facility] [address] [id number] [address] [place] [address], [place] [address] Oct, [facility] [address] [id number] [address] [place] [address], [place] [address] Oct, [facility] [address] [id number] [address] [place] [address], [place] [address] Oct, 2014 [facility] [address] [id number] [address] [place] [address], [place] [address] Oct, [facility] [address] [id number] [address] [place] [address], [place] [address] Oct, [facility] [address] [id number] [address] [place] [address], [place] [address] Oct, [facility] [address] [id number] [address] [place] [address], [place] [address] Sep, [facility] [address] [id number] [address] [place] [address], [place] [address] 14 Sep, 2014 [facility] [address] [id number] [address] [place] [address], [place] [address] Sep, [facility] [address] [id number] [address] [place] [address], [place] [address] Sep, [facility] [address] [id number] [address] [place] [address], [place] [address] Sep, [facility] [address] [id number] [address] [place] [address], [place] [address] Sep, [facility] [address] [id number] [address] [place] [address], [place] [address] Aug, [facility] [address] [id number] [address] [place] [address], [place] [address] Aug, [facility] [address] [id number] [address] [place] [address], [place] [address] Aug, [facility] [address] [id number] [address] [place] [address], [place] [address] Aug, [facility] [address] [id number] [address] [place] [address], [place] [address] Aug, [facility] [address] [id number] [address] [place] [address], [place] [address] Aug, [facility] [address] [id number] [address] [place] [address], [place] [address] Aug, [facility] [address] [id number] [address] [place] [address], [place] [address] Aug, [facility] [address] [id number] [address] [place] [address], [place] [address] Aug, [facility] [address] [id number] [address] [place] [address], [place] [address] Aug, [facility] [address] [id number] [address] [place] [address], [place] [address] Jul, [facility] [address] [id number] [address] [place] [address], [place] [address] Jul, [facility] [address] [id number] [address] [place] [address], [place] [address] Jul, [facility] [address] [id number] [address] [place] [address], [place] [address] Jul, [facility] [address] [id number] [address] [place] [address], [place] [address] Jun, [facility] [address] [id number] [address] [place] [address], [place] [address] Jun, [facility] [address] [id number] [address] [place] [address], [place] [address] Jun, [facility] [address] [id number] [address] [place] [address], [place] [address] Jun, [facility] [address] [id number] [address] [place] [address], [place] [address] Jun, [facility] [address] [id number] [address] [place] [address], [place] [address] Jun, [facility] [address] [id number] [address] [place] [address], [place] [address] Jun, [facility] [address] [id number] [address] [place] [address] Jun, [facility] [address] [id number] [address] [place] [address] May, [facility] [address] [id number] [address] [place] [address], [place] [address] May, [facility] [address] [id number] [address] [place] [address], [place] [address] May, [facility] [address] [id number] [address] [place] [address], [place] [address] May, [facility] [address] [id number] [facility] [place] [address] 15 May, 2013 [facility] [address] [id number] [address] [place] [address], [place] [address] May, [facility] [address] [id number] [address] [place] [address], [place] [address] May, [facility] [address] [id number] [address] [place] [address], [place] [address] May, [facility] [address] [id number] [address] [place] [address], [place] [address] Apr, [facility] [address] [id number] [address] [place] [address], [place] [address] Apr, [facility] [address] [id number] [address] [place] [address], [place] [address] Apr, [facility] [address] [id number] [address] [place] [address], [place] [address] Apr, [facility] [address] [id number] [address] [place] [address], [place] [address] Apr, [facility] [address] [id number] [address] [place] [address], [place] [address] Apr, [facility] [address] [id number] [address] [place] [address], [place] [address] Apr, [facility] [address] [id number] [address] [place] [address], [place] [address] Apr, [facility] [address] [id number] [address] [place] [address], [place] [address] Apr, [facility] [address] [id number] [address] [place] [address], [place] [address] Apr, [facility] [address] [id number] [address] [place] [address], [place] [address] Apr, [facility] [address] [id number] [address] [place] [address], [place] [address] Apr, [facility] [address] [id number] [address] [place] [address], [place] [address] Mar, [facility] [address] [id number] [address] [place] [address], [place] [address] Mar, [facility] [address] [id number] [address] [place] [address], [place] [address] Mar, [facility] [address] [id number] [address] [place] [address], [place] [address] Mar, [facility] [address] [id number] [address] [place] [address], [place] [address] Mar, [facility] [address] [id number] [address] [place] [address], [place] [address] Mar, [facility] [address] [id number] [address] [place] [address], [place] [address] Feb, [facility] [address] [id number] [address] [place] [address], [place] [address] Feb, [facility] [address] [id number] [address] [place] [address], [place] [address] Feb, [facility] [address] [id number] [address] [place] [address], [place] [address] Feb, [facility] [address] [id number] [address] [place] [address], [place] [address] Feb, [facility] [address] [id number] [address] [place] [address], [place] [address] Feb, [facility] [address] [id number] [address] [place] [address], [place] [address] Feb, [facility] [address] [id number] [address] [place] [address], [place] [address] Feb, [facility] [address] [id number] [address] [place] [address], [place] [address] 05 Feb, 2014 [facility] [address] [id number] [address] [place] [address], [place] [address] Feb, [facility] [address] [id number] [facility] [place] [address] Feb, [facility] [address] [id number] [address] [place] [address], [place] [address] Feb, [facility] [address] [id number] [address] [place] [address], [place] [address] Feb, [facility] [address] [id number] [address] [place] [address], [place] [address] Feb, [facility] [address] [id number] [address] [place] [address], [place] [address] January, [facility] [address] [id number] [address] [place] [address], [place] [address] January, [facility] [address] [id number] [address] [place] [address], [place] [address] January, [facility] [address] [id number] [address] [place] [address], [place] [address] January, [facility] [address] [id number] [address] [place] [address], [place] [address] January, [facility] [address] [id number] [address] [place] [address], [place] [address] January, [facility] [address] [id number] [address] [place] [address], [place] [address] Dec, [facility] [address] [id number] [address] [place] [address], [place] [address] Dec, [facility] [address] [id number] [address] [place] [address], [place] [address] Dec, [facility] [address] [id number] [address] [place] [address], [place] [address] Dec, [facility] [address] [id number] [address] [place] [address], [place] [address] Dec, [facility] [address] [id number] [address] [place] [address] Dec, [facility] [address] [id number] [address] [place] [address], [place] [address] Dec, [facility] [address] [id number] [address] [place] [address], [place] [address] Dec, [facility] [address] [id number] [address] [place] [address], [place] [address] Nov, [facility] [address] [id number] [address] [place] [address], [place] [address] Nov, [facility] [address] [id number] [address] [place] [address], [place] [address] Nov, [facility] [address] [id number] [address] [place] [address], [place] [address] Nov, [facility] [address] [id number] [address] [place] [address], [place] [address] Nov, [facility] [address] [id number] [address] [place] [address], [place] [address] Nov, [facility] [address] [id number] [address] [place] [address], [place] [address] Nov, [facility] [address] [id number] [address] [place] [address], [place] [address] Nov, [facility] [address] [id number] [address] [place] [address], [place] [address] Oct, [facility] [address] [id number] [address] [place] [address], [place] [address] Oct, [facility] [address] [id number] [address] [place] [address], [place] [address] Oct, [facility] [address] [id number] [address] [place] [address], [place] [address] Oct, [facility] [address] [id number] [address] [place] [address], [place] [address] Oct, [facility] [address] [id number] [address] [place] [address], [place] [address] Oct, [facility] [address] [id number] [address] [place] [address], [place] [address] Oct, [facility] [address] [id number] [address] [place] [address], [place] [address] Oct, [facility] [address] [id number] [address] [place] [address], [place] [address] Oct, [facility] [address] [id number] [address] [place] [address], [place] [address] Oct, [facility] [address] [id number] [address] [place] [address], [place] [address] Sep, [facility] [address] [id number] [address] [place], [place] [address], [place] [address] Sep, [facility] [address] [id number] [address] [place] [address], [place] [address] Sep, [facility] [address] [id number] [address] [place] [address], [place] [address] Sep, [facility] [address] [id number] [address] [place] [address], [place] [address] Sep, [facility] [address] [id number] [address] [place] [address], [place] [address] Sep, [facility] [address] [id number] [address] [place] [address], [place] [address] Aug, [facility] [address] [id number] [address] [place] [address], [place] [address] Aug, [facility] [address] [id number] [address] [place] [address], [place] [address] Aug, [facility] [address] [id number] [address] [place] [address], [place] [address] Aug, [facility] [address] [id number] [address] [place] [address], [place] [address] Aug, [facility] [address] [id number] [address] [place] [address], [place] [address] Aug, [facility] [address] [id number] [address] [place] [address], [place] [address] Aug, [facility] [address] [id number] [address] [place] [address], [place] [address] Aug, [facility] [address] [id number] [address] [place] [address], [place] [address] Jul, [facility] [address] [id number] [address] [place] [address], [place] [address] Jul, [facility] [address] [id number] [address] [place] [address], [place] [address] Jul, [facility] [address] [id number] [address] [place] [address], [place] [address] Jul, [facility] [address] [id number] [address] [place] [address], [place] [address] Jul, [facility] [address] [id number] [address] [place] [address], [place] [address] Jul, [facility] [address] [id number] [address] [place] [address], [place] [address] Jun, [facility] [address] [id number] [address] [place] [address], [place] [address] Jun, [facility] [address] [id number] [address] [place] [address], [place] [address] Jun, [facility] [address] [id number] [address] [place] [address], [place] [address] 24 May, 2013 [facility] [address] [id number] [address] [place] [address], [place] [address] 11 May, 2013 [facility] [address] [id number] [address] [place] [address], [place] [address] May, [facility] [address] [id number] [address] [place] [address], [place] [address] Apr, [facility] [address] [id number] [address] [place] [address], [place] [address] Apr, [facility] [address] [id number] [address] [place] [address], [place] [address] Apr, [facility] [address] [id number] [address] [place] [address], [place] [address] Apr, [facility] [address] [id number] [address] [place] [address], [place] [address] Mar, [facility] [address] [id number] [address] [place] [address], [place] [address] Mar, [facility] [address] [id number] [address] [place] [address], [place] [address] Mar, [facility] [address] [id number] [address] [place] [address], [place] [address] Mar, [facility] [address] [id number] [address] [place] [address], [place] [address] Feb, [facility] [address] [id number] [address] [place] [address], [place] [address] Feb, [facility] [address] [id number] [address] [place] [address], [place] [address] Feb, [facility] [address] [id number] [address] [place] [address], [place] [address] Feb, [facility] [address] [id number] [address] [place] [address], [place] [address] January, [facility] [address] [id number] [address] [place] [address], [place] [address] January, [facility] [address] [id number] [address] [place] [address], [place] [address] January, [facility] [address] [id number] [address] [place] [address], [place] [address] Nov, [facility] [address] [id number] [address] [place] [address], [place] [address] Nov, [facility] [address] [id number] [address] [place] [address], [place] [address] Oct, [facility] [address] [id number] [address] [place] [address], [place] [address] Oct, [facility] [address] [id number] [address] [place] [address], [place] [address] Oct, [facility] [address] [id number] [address] [place] [address], [place] [address] Oct, [facility] [address] [id number] [address] [place] [address], [place] [address] Sep, [facility] [address] [id number] [address] [place] [address], [place] [address] Sep, [facility] [address] [id number] [address] [place] [address], [place] [address] Sep, [facility] [address] [id number] [address] [place] [address], [place] [address] Aug, [facility] [address] [id number] [address] [place] [address], [place] [address] Aug, [facility] [address] [id number] [address] [place] [address], [place] [address] Aug, [facility] [address] [id number] [address] [place] [address], [place] [address] Aug, [facility] [address] [id number] [address] [place] [address], [place] [address] Aug, [facility] [address] [id number] [address] [place] [address], [place] [address] Aug, [facility] [address] [id number] [address] [place] [address], [place] [address] Jul, [facility] [address] [id number] [address] [place] [address], [place] [address] Jul, [facility] [address] [id number] [address] [place] [address], [place] [address] Jun, [facility] [address] [id number] [address] [place] [address], [place] [address] Jun, [facility] [address] [id number] [address] [place] [address], [place] [address] Jun, [facility] [address] [id number] [address] [place] [address], [place] [address] Apr, [facility] [address] [id number] [address] [place] [address], [place] [address] Apr, [facility] [address] [id number] [address] [place] [address], [place] [address] Mar, [facility] [address] [id number] [address] [place] [address], [place] [address] Mar, [facility] [address] [id number] [address] [place] [address], [place] [address] Mar, [facility] [address] [id number] [address] [place] [address], [place] [address] Mar, [facility] [address] [id number] [address] [place] [address], [place] [address] Feb, [facility] [address] [id number] [address] [place] [address] Feb, [facility] [address] [id number] [address] [place] [address], [place] [address] Feb, [facility] [address] [id number] [address] [place] [address], [place] [address] January, [facility] [address] [id number] [address] [place] [address], [place] [address] January, [facility] [address] [id number] [address] [place] [address] January, [facility] [address] [id number] [address] [place] [address], [place] [address] January, [facility] [address] [id number] [address] [place] [address], [place] [address] Dec, [facility] [address] [id number] [address] [place] [address], [place] [address] Dec, [facility] [address] [id number] [address] [place] [address], [place] [address] Nov, [facility] [address] [id number] [address] [place] [address], [place] [address] Nov, [facility] [address] [id number] [address] [place] [address], [place] [address] 16 Oct, 2011 [facility] [address] [id number] [address] [place] [address], [place] [address] Oct, [facility] [address] [id number] [address] [place] [address], [place] [address] Sep, [facility] [address] [id number] [address] [place] [address], [place] [address] Sep, [facility] [address] [id number] [address] [place] [address], [place] [address] Sep, [facility] [address] [id number] [address] [place] [address], [place] [address] Sep, [facility] [address] [id number] [address] [place] [address], [place] [address] Aug, [facility] [address] [id number] [address] [place] [address], [place] [address] Aug, [facility] [address] [id number] [address] [place] [address], [place] [address] Aug, [facility] [address] [id number] [address] [place] [address], [place] [address] Jul, [facility] [address] [id number] [address] [place] [address] Aug, [facility] [address] [id number] [address] [place] [address] Aug, [facility] [address] [id number] [address] [place] [address] Aug, [facility] [address] [id number] [address] [place] [address] Aug, [facility] [address] [id number] [address] [place] [address] Jul, [facility] [address] [id number] [address] [place] [address] Jul, [facility] [address] [id number] [address] [place] [address] Jul, [facility] [address] [id number] [address] [place] [address] Jun, [facility] [address] [id number] [address] [place] [address] Jun, [facility] [address] [id number] [address] [place] [address] Jun, [facility] [address] [id number] [address] [place] [address] Apr, [facility] [address] [id number] [address] [place] [address] Mar, IMMUNIZATIONS No Known Immunizations SOCIAL HISTORY Never Assessed REASON FOR VISIT PLAN OF CARE VITAL SIGNS MEDICATIONS Unknown Medications RESULTS No Results PROCEDURES Procedure Date Ordered Result Body Site INJ METHYLPRDNISLN SODIM TO 125 MG Apr 16, 2014 THER INJECTION, CARP TUNNEL Apr 16, 2014 INSTRUCTIONS MEDICATIONS ADMINISTERED No Known Medications MEDICAL [...]
--- OUTSIDE RECORDS SUMMARY | 2020-03-18 14:34 | XMS REPORT ---
Author Author George WAYNE Organization [facility] Address [address] [place] [address] Care Team Providers Care Tile Presser Name Role Phone REYNA WAYNE Unavailable PROBLEMS Type Condition ICD9-CM Code TAS62-AR Code Onset Dates Condition S tatus SNOMED Code Problem Hypertension, benign I10 Active 95656200 Problem Other chronic pain G89.29 Active 8 2084227 Problem Lumbago with sciatica, unspecified side M54.40 Active 837659240 Problem Controlled type 2 diabetes m ellitus without complication, without long- term current use of insulin E11.9 Active 835023703 Problem Lumbago with sciatica, right side M54.41 Active 409720702 Problem Adjustment disorder with disturbance of emotion F4 3.29 Active 81170637 Problem MELE (obstructive sleep apnea) G47.33 Active 34868373 Problem Non morbid obesity E66.9 Active 4 30538246 Problem Hammer toe of left foot M20.42 Active 927200358 Problem Mood disorder F39 Active 964387 05 Problem Deformity of left foot M21.962 Active 047589703 Problem Lumbago with sciatica, left side M54.42 Active 503555542 Problem Erectile dysfunction due to diseases classified elsewhere N52.1 Active 587733721 Problem Obstructive sleep apnea syndrome G47.33 Active 95330278 Problem Type 2 diabetes mellitus wit h diabetic neuropathy, without long-term current use of insulin E11.40 Active 03722 006 Problem Essential hypertension I10 Active 06940564 ALLERGIES No Information ENCOUNTERS Encounter Location Date Diagnosis [facility] [address] [facility] [id number] [address] [place] [address] May, [facility] [address] [facility] [id number] [address] [place] [address] Apr, Lumbago with sciatica, unspe cified side M54.40 [facility] [address] [place] [id number] [address] [place] [address] Apr, [place] [address] [address] Apr, [address] [address] Apr, Hammer toe of left foot M20.42 ; Chest p ain R07.9 ; Preoperative examination Z01.818 and Morbid obesity E66.01 [place] [address] [address] Apr, Morbid obesity E66.01 ; Bron chitis J40 and High risk medications (not anticoagulants) long-term use Z79.899 [place] [address] [address] Apr, Lumbago with sciatica, unspe cified side M54.40 [place] [address] [address] Apr, [place] [address] [address] Mar, Lumbar neuritis M54.16 and M orbid obesity E66.01 [place] [address] [address] Mar, [place] [address] [address] Mar, [place] [address] [address] Mar, Lumbago with sciatica, unspe cified side M54.40 [place] [address] [address] Mar, Morbid obesity E66.01 ; Coug marco R05 ; 2+ pitting edema R60.9 and Controlled type 2 diabetes mellitus without complication, without long-term current use of insulin E11.9 [place] [address] [place] [address] Feb, [facility] [address] [id number] [address] [place] [address] Feb, Lumbago with sciatica, unspe cified side M54.40 [facility] [address] [id number] [address] [place] [address] Feb, [facility] [address] [id number] [address] [place] [address] Feb, Controlled type 2 diabetes m ellitus without complication, without long-term current use of insulin E11.9 and Morbid obesity E66.01 [facility] [address] [facility] [id number] [address] [place] [address] January, Deformity of left foot M21.9 62 [facility] [address] [facility] [id number] [address] [place] [address] January, [facility] [address] [facility] [id number] [address] [place] [address] January, Lumbago with sciatica, unspe cified side M54.40 [facility] [address] [facility] [id number] [address] [place] [address] January, [facility] [address] [facility] [id number] [address] [place] [address] January, Lumbago with sciatica, unspe cified side M54.40 [facility] [address] [id number] [address] [place] [address] January, [facility] [address] [id number] [address] [place] [address] January, Acute right-sided thoracic b ack pain M54.6 [facility] [address] [id number] [address] [place] [address] January, Acute right-sided thoracic b ack pain M54.6 [facility] [address] [id number] [address] [place] [address] January, Chest pain, unspecified type R07.9 ; Morbid obesity E66.01 and Scabies B86 [place] [address] [facility] [id number] [address] [place] [address] Dec, Lumbago with sciatica, unspe cified side M54.40 [place] [address] [place] [id number] [address] [place] [address] Dec, Toenail fungus B35.1 [place] [address] [facility] [id number] [address] [place] [address] Dec, Toenail fungus B35.1 [place] [address] [place] [id number] [address] [place] [address] Dec, Acute right-sided thoracic b ack pain M54.6 [place] [id number] [place] [address] Dec, Lumbago with sciatica, unspe cified side M54.40 [place] [address] [place] [id number] [address] [place] [address] Nov, Hammer toe of left foot M20. 42 ; Deformity of left foot M21.962 and Type 2 diabetes mellitus with diabetic neuropathy, without long-term current use of insulin E11.40 [facility] [address] [place] [id number] [address] [place] [address] Nov, Acute right-sided thoracic b ack pain M54.6 ; Morbid obesity E66.01 and Rt flank pain R10.9 [place] [address] [facility] [id number] [address] [place] [address] Nov, Lumbago with sciatica, unspe cified side M54.40 [place] [address] [place] [id number] [address] [place] [address] Oct, Lumbago with sciatica, unspe cified side M54.40 [facility] [address] [place] [id number] [address] [place] [address] Sep, Lumbago with sciatica, unspe cified side M54.40 [facility] [address] [place] [id number] [address] [place] [address] Sep, [facility] [address] [place] [id number] [address] [place] [address] Sep, BMI 40.0-44.9, adult Z68.41 ; Lumbago with sciatica, left side M54.42 ; Lumbago with sciatica, right side M54.41 and Other chronic pain G89.29 [place] [address] [place] [id number] [address] [place] [address] Aug, Lumbago with sciatica, unspe cified side M54.40 [place] [address] [place] [id number] [address] [place] [address] Aug, Type 2 diabetes mellitus wit h diabetic neuropathy, without long- term current use of insulin E11.40 ; Hammer toe of left foot M20.42 ; Hypertension, benign I10 and Frequent headaches R51 [place] [address] [place] [id number] [address] [place] [address] Jul, Lumbago with sciatica, unspe cified side M54.40 [place] [address] [place] [id number] [address] [place] [address] Jul, [place] [address] [place] [id number] [address] [place] [address] Jul, Essential hypertension I10 a nd Controlled type 2 diabetes mellitus without complication, without long-term current use of insulin E11.9 [place] [address] [facility] [id number] [address] [place] [address] Jul, Essential hypertension I10 ; Controlled type 2 diabetes mellitus without complication, without long-term current use of insulin E11.9 and BMI 40.0-44.9, adult Z68.41 [place] [address] [place] [id number] [address] [place] [address] Jul, Dysfunction of left eustachi an tube H69.82 [facility] [address] [facility] [id number] [address] [place] [address] Jul, Lumbago with sciatica, unspe cified side M54.40 [facility] [address] [facility] [id number] [address] [place] [id number] Jun, Dental examination Z01.20 [facility] [address] [facility] [id number] [address] [place] [address] Jun, Lumbago with sciatica, unspe cified side M54.40 and Encounter for immunization Z23 [facility] [address] [facility] [id number] [address] [place] [address] Jun, Dysfunction of left eustachi an tube H69.[id number] [place] [id number] Jun, Dental examination Z01.20 [facility] [address] [facility] [id number] [address] [place] [address] Jun, Other chronic pain G89.29 [facility] [address] [place] [id number] [place] [address] [id number] Jun, Dental examination Z01.20 [facility] [address] [facility] [id number] [address] [place] [address] Jun, [facility] [address] [facility] [id number] [address] [place] [address] Jun, Bronchitis J40 ; Dysfunction of left eustachian tube H69.82 and BMI 45.0-49.9, adult Z68.42 [facility] [address] [facility] [id number] [address] [place] [address] Jun, Lumbago with sciatica, unspe cified side M54.40 [facility] [address] [facility] [id number] [address] [place] [address] May, Type 2 diabetes mellitus wit h diabetic neuropathy, without long- term current use of insulin E11.40 and Hypertension, benign I10 [facility] [address] [place] [id number] [address] [place] [address] May, Lumbago with sciatica, unspe cified side M54.40 [facility] [address] [place] [id number] [address] [place] [address] Apr, [facility] [address] [place] [id number] [address] [place] [address] Apr, Controlled type 2 diabetes m ellitus without complication, without long-term current use of insulin E11.9 ; Insect bite (nonvenomous), right ankle, initial encounter S90.561A ; Local infection of the skin and subcutaneous tissue, unspecified L08.9 ; Acute swimmer''s ear of left side H60.332 and BMI 45.0-49.9, adult Z68.42 [place] [address] [place] [id number] [address] [place] [address] Apr, Lumbago with sciatica, unspe cified side M54.40 [place] [address] [place] [id number] [address] [place] [address] Mar, [place] [address] [place] [id number] [address] [place] [address] Mar, Lumbago with sciatica, unspe cified side M54.40 [place] [address] [place] [id number] [address] [place] [address] Feb, Lumbago with sciatica, unspe cified side M54.40 [place] [address] [place] [id number] [address] [place] [address] Feb, BMI 45.0-49.9, adult Z68.42 and Obstructive sleep apnea syndrome G47.33 [place] [address] [place] [id number] [address] [place] [address] January, Lumbar neuritis M54.16 [place] [address] [place] [id number] [address] [place] [address] January, Lumbago with sciatica, unspe cified side M54.40 [place] [address] [place] [id number] [address] [place] [address] Dec, Controlled type 2 diabetes m maribell without complication, without long-term current use of insulin E11.9 ; Erectile dysfunction due to diseases classified elsewhere N52.1 and Mood disorder F39 [place] [address] [address] Dec, Lumbago with sciatica, unspe cified side M54.40 [place] [address] [address] Dec, Obstructive sleep apnea synd luis G47.33 [place] [address] [address] Nov, Lumbago with sciatica, unspe cified side M54.40 ; Hypertension, benign I10 and Mood disorder F39 [place] [address] [place] [id number] [address] [place] [address] Nov, Other chronic pain G89.29 [place] [address] [address] Nov, Lumbago with sciatica, unspe cified side M54.40 [facility] [address] [place] [address] [id number] Nov, Dental examination Z01.20 [place] [address] [place] [id number] [address] [place] [address] Oct, [place] [address] [place] [id number] [place] [address] Oct, Lumbago with sciatica, unspe cified side M54.40 [place] [address] [place] [id number] [address] [place] [address] Oct, Lumbago with sciatica, unspe cified side M54.40 [facility] [address] [id number] [address] [place] [address] 14 Oct, 2017 [facility] [address] [id number] [address] [place] [address] Oct, [facility] [address] [address] [id number] [address] [place] [address] [id number] 13 Oct, 2017 Dental examination Z01.20 [facility] [address] [id number] [address] [place] [address] Oct, [facility] [address] [facility] [id number] [address] [place] [address] Oct, Pain in right knee M25.561 [facility] [address] [facility] [id number] [address] [place] [address] Sep, [facility] [address] [facility] [id number] [address] [place] [address] Sep, Other chronic pain G89.29 [facility] [address] [facility] [id number] [address] [place] [address] Sep, Lumbago with sciatica, unspe cified side M54.40 [facility] [address] [facility] [id number] [address] [place] [address] Sep, [facility] [address] [facility] [id number] [address] [place] [address] Sep, Viral URI J06.9 and BMI 45.0 -49.9, adult Z68.42 [facility] [address] [facility] [id number] [address] [place] [address] Aug, Foreign body hand S60.559A a nd BMI 45.0-49.9, adult Z68.42 [facility] [address] [facility] [id number] [address] [place] [address] Aug, [facility] [address] [facility] [id number] [address] [place] [address] Aug, Lumbago with sciatica, unspe cified side M54.40 [facility] [address] [facility] [id number] [address] [place], [place] [id number] Aug, Vertigo R42 ; Dysfunction of both eustachian tubes H69.83 ; Low back pain M54.5 and Other chronic pain G89.29 [facility] [address] [place] [id number] [address] [place] [address] Aug, Dizziness R42 and Acute bila teral otitis media H66.93 [place] [address] [facility] [id number] [address] [place] [address] Aug, Lumbago with sciatica, unspe cified side M54.40 [facility] [address] [place] [address] [phone] Jul, Dental examination Z01.20 [place] [address] [place] [id number] [address] [place] [address] Jul, [facility] [address] [place] [id number] [address] [place] [address] Jul, [place] [address] [address] Jul, Dysfunction of both eustachi an tubes H69.83 [place] [address] [place] [id number] [address] [place] [address] Jul, Controlled type 2 diabetes m taraitus without complication, without long-term current use of insulin E11.9 [facility] [address] [place] [id number] [address] [place] [address] Jul, Controlled type 2 diabetes m ellitus without complication, without long-term current use of insulin E11.9 [facility] [address] [place] [id number] [address] [place] [phone] 06 Jul, 2017 Dizziness R42 and BMI 40.0-4 4.9, adult Z68.41 [place] [address] [id number] [address] [place] [address] Jul, Controlled type 2 diabetes m ellitus without complication, without long-term current use of insulin E11.9 [facility] [address] [id number] [address] [place] [address] Jul, Lumbago with sciatica, unspe cified side M54.40 [facility] [id number] [place] [address] [id number] Jul, Dental examination Z01.20 [facility] [address] [id number] [address] [place] [phone] Jun, [facility] [address] [id number] [place] [id number] Jun, Dental examination Z01.20 [place] [address] [id number] [address] [place] [address] Jun, Controlled type 2 diabetes m ellitus without complication, without long-term current use of insulin E11.9 [facility] [address] [id number] [address] [place] [address] Jun, Lumbago with sciatica, unspe cified side M54.40 [facility] [address] [id number] [address] [place] [address] [phone] May, Dental examination Z01.20 [facility] [address] [id number] [address] [place] [address] May, Controlled type 2 diabetes m ellitus without complication, without long-term current use of insulin E11.9 [facility] [address] [id number] [address] [place] [address] [id number] May, Dental examination Z01.20 [facility] [address] [id number] [address] [place] [address] May, Bronchitis J40 ; Dry mouth R 68.2 ; Non morbid obesity E66.9 and Controlled type 2 diabetes mellitus without complication, without long-term current use of insulin E11.9 [facility] [address] [id number] [address] [place] [phone] 16 May, 2017 Encounter for immunization Z 23 [facility] [address] [id number] [address] [place] [phone] 07 May, 2017 Lumbago with sciatica, unspe cified side M54.40 [facility] [address] [id number] [address] [place] [phone] 05 May, 2017 [facility] [id number] [place] [address] [phone] Apr, Dental examination Z01.20 [facility] [address] [id number] [address] [place] [phone] Apr, Lumbago with sciatica, unspe cified side M54.40 [facility] [address] [id number] [address] [place] [phone] Mar, Lumbago with sciatica, left side M54.42 [facility] [address] [facility] [id number] [address] [place] [address] Mar, [facility] [address] [facility] [id number] [address] [place] [address] Mar, Lumbar neuritis M54.16 [facility] [address] [id number] [address] [place] [phone] Mar, [facility] [address] [id number] [place] [address] [phone] Mar, Dental examination Z01.20 [facility] [address] [id number] [address] [place] [id number] Mar, MELE (obstructive sleep apnea ) G47.33 ; Neuropathy involving both lower extremities G57.93 and Frequent headaches R51 [facility] [address] [id number] [address] [place] [address] Mar, Lumbago with sciatica, unspe cified side M54.40 [place] [address] [id number] [address] [place] [phone] Feb, Lumbago with sciatica, unspe cified side M54.40 and Controlled type 2 diabetes mellitus without complication, without long-term current use of insulin E11.9 [place] [address] [id number] [address] [place] [phone] January, Hypertension, benign I10 and Bilateral low back pain with sciatica, sciatica laterality unspecified M54.40 [place] [address] [id number] [address] [place] [phone] January, Hypertension, benign I10 ; L umbago with sciatica, unspecified side M54.40 ; Other chronic pain G89.29 and Controlled type 2 diabetes mellitus without complication, without long-term current use of insulin E11.9 [place] [address] [id number] [address] [place] [address] January, Lumbar neuritis M54.16 [place] [address] [id number] [address] [place] [address] January, [place] [address] [id number] [address] [place] [address] Dec, Lumbago with sciatica, right side M54.41 and Lumbar neuritis M54.16 [place] [address] [id number] [address] [place] [address] Dec, Lumbar neuritis M54.16 [place] [address] [id number] [address] [place] [phone] Dec, Lumbar neuritis M54.16 [place] [address] [id number] [address] [place] [id number] Nov, Lumbar neuritis M54.16 ; Lum bago with sciatica, right side M54.41 ; Controlled type 2 diabetes mellitus without complication, without long-term current use of insulin E11.9 and Rash and nonspecific skin eruption R21 [place] [address] [id number] [address] [place] [id number] Nov, Lumbar neuritis M54.16 and P alexi miroslava L23.7 [place] [id number] [place] [id number] Oct, Lumbar neuritis M54.16 ; Cou ghing R05 and Mood disorder F39 [place] [address] [place] [id number] Sep, Lumbago with sciatica, right side M54.41 [place] [address] [id number] Sep, Adjustment disorder with dis turbance of emotion F43.29 and Pain management R52 [place] [address] [id number] Sep, [place] [address] [address] Sep, [place] [address] [id number] Sep, Controlled type 2 diabetes evens reyna without complication, without long-term current use of insulin E11.9 and Lumbago with sciatica, unspecified side M54.40 [place] [address] [id number] Aug, Controlled type 2 diabetes evens reyna without complication, without long-term current use of insulin E11.9 ; Pain in right knee M25.561 ; Pain in left knee M25.562 ; Other chronic pain G89.29 ; Lumbago with sciatica, right side M54.41 ; Neck pain M54.2 and Encounter for immunization Z23 [place] [id number] [place] [id number] Jul, [place] [address] [id number] Jul, Controlled type 2 diabetes evens reyna without complication, without long-term current use of insulin E11.9 [facility] [address] [id number] [address] [place] [id number] 17 Jul, 2016 [facility] [facility] [address] [id number] [address] [place] [id number] 15 Jul, 2016 [facility] [address] [id number] [address] [place] [address] Jul, Lumbago with sciatica, left side M54.42 ; Lumbago with sciatica, right side M54.41 and Other chronic pain G89.29 [facility] [address] [id number] [address] [place] [address] Jul, [facility] [address] [id number] [address] [place] [address] Jul, [facility] [address] [id number] [address] [place] [address] Jun, [facility] [address] [id number] [address] [place] [address] Jun, Lumbago with sciatica, right side M54.41 and Other chronic pain G89.29 [facility] [address] [id number] [address] [place] [address] Jun, Cervicalgia M54.2 ; Lumbago with sciatica, unspecified side M54.40 and Other chronic pain G89.29 [facility] [address] [id number] [address] [place] [address] 15 May, 2016 Pain in right knee M25.561 ; Pain in left knee M25.562 and Other chronic pain G89.29 [facility] [address] [id number] [address] [place] [address] 14 May, 2016 [facility] [address] [facility] [id number] [address] [place] [address] 05 Apr, 2016 Other chronic pain G89.29 an d Pain in right knee M25.561 [facility] [address] [id number] [address] [place] [address] Apr, Pain in right knee M25.561 [facility] [address] [id number] [address] [place] [address] Mar, [facility] [address] [id number] [address] [place] [address] Mar, Mood disorder F39 and Contro lled type 2 diabetes mellitus without complication, without long-term current use of insulin E11.9 [facility] [address] [id number] [address] [place] [address] Mar, Pain in right knee M25.561 ; Pain in left knee M25.562 ; Other chronic pain G89.29 ; Obstructive sleep apnea syndrome G47.33 ; Mood disorder F39 and Controlled type 2 diabetes mellitus without complication, without long- term current use of insulin E11.9 [facility] [address] [id number] [address] [place] [address] Mar, [facility] [address] [id number] [address] [place] [id number] Feb, Dental examination Z01.20 [facility] [address] [id number] [address] [place] [address] Feb, [facility] [address] [id number] [address] [place] [address] Feb, Osteoarthritis of right knee , unspecified osteoarthritis type M17.9 [facility] [address] [id number] [address] [place] [phone] January, [facility] [address] [id number] [address] [place] [id number] January, Dental examination Z01.20 [facility] [address] [id number] [address] [place] [address] January, [facility] [address] [id number] [address] [place] [id number] January, Dental examination Z01.20 an d Caries K02.9 [facility] [address] [id number] [address] [place] [address] Dec, Encounter for other preproce dural examination Z01.818 [facility] [address] [id number] [address] [place] [address] Dec, [facility] [address] [id number] [address] [place] [address] Dec, Knee pain M25.569 [facility] [address] [id number] [address] [place] [address] Dec, Pain in right knee M25.561 [facility] [address] [id number] [address] [place] [address] Dec, [facility] [address] [id number] [address] [place] [address] Dec, [facility] [address] [id number] [address] [place] [address] Dec, Encounter for immunization Z 23 [facility] [address] [id number] [address] [place] [address] Dec, [facility] [address] [id number] [address] [place] [address] Dec, [facility] [address] [id number] [address] [place] [address] Nov, [facility] [address] [id number] [address] [place] [address] Nov, Hypertension, benign I10 ; C ervicalgia M54.2 ; Pain in right knee M25.561 and Pain in left knee M25.562 [facility] [address] [id number] [address] [place] [address] Oct, [facility] [address] [id number] [address] [place] [address] Oct, [facility] [address] [facility] [id number] [address] [place] [address] Oct, Osteoarthritis of both knees M17.0 [place] [address] [facility] [id number] [address] [place] [address] Oct, [place] [address] [facility] [id number] [address] [place] [address] Oct, Low back pain M54.5 [place] [address] [place] [id number] [address] [place] [address] Oct, Low back pain M54.5 ; Sciati ca, unspecified side M54.30 ; Pain in right knee M25.561 ; Pain in left knee M25.562 ; Pain in right shoulder M25.511 and Pain in left shoulder M25.512 [place] [address] [place] [id number] [address] [place] [address] Oct, [place] [address] [place] [id number] [address] [place] [address] Sep, Pain in right hip M25.551 [place] [address] [place] [id number] [address] [place] [address] Sep, Acute upper respiratory infe ction, unspecified J06.9 [place] [address] [place] [id number] [address] [place] [address] Aug, Acute upper respiratory infe ction, unspecified J06.9 and Other viral agents as the cause of diseases classified elsewhere B97.89 [place] [address] [place] [id number] [address] [place] [address] Jul, Arthritis M19.90 [place] [address] [place] [id number] [address] [place] [address] Jun, Arthritis M19.90 ; Pain in r ight hip M25.551 ; Pain in left hip M25.552 ; Bilateral low back pain with sciatica, sciatica laterality unspecified M54.40 ; Neck pain M54.2 ; Upper back pain M54.9 and Knee pain, unspecified laterality M25.569 [facility] [address] [id number] [address] [place] [address] 10 May, 2015 Osteoarthritis of both knees 715.96 [facility] [address] [id number] [address] [place] [address] May, Rash 782.1 [facility] [address] [id number] [address] [place] [address] Apr, Lumbar strain 847.2 [facility] [address] [id number] [address] [place] [address] Apr, Rash 782.1 [facility] [address] [id number] [address] [place] [address] Mar, Rash 782.1 [facility] [address] [facility] [id number] [address] [place] [address] Feb, Rash 782.1 ; Hemorrhoids 455 .6 and Constipation 564.00 [facility] [address] [id number] [address] [place] [address] Feb, Osteoarthritis of both knees 715.96 [facility] [address] [id number] [address] [place] [phone] January, [facility] [address] [facility] [id number] [address] [place] [address] Dec, [facility] [address] [id number] [address] [place] [address] Dec, [facility] [address] [id number] [address] [place] [address] Dec, [facility] [address] [id number] [address] [place] [address] Nov, [facility] [address] [id number] [address] [place] [phone] Nov, [facility] [address] [id number] [address] [place] [address] Nov, [facility] [address] [id number] [address] [place] [address], [place] [address] Nov, [facility] [address] [id number] [address] [place] [address], [place] [address] Nov, [facility] [address] [id number] [address] [place] [address], [place] [address] Nov, [facility] [address] [id number] [address] [place] [address], [place] [address] Oct, [facility] [address] [id number] [address] [place] [address], [place] [address] Oct, [facility] [address] [id number] [address] [place] [address], [place] [address] Oct, [facility] [address] [id number] [address] [place] [address], [place] [address] Oct, [facility] [address] [id number] [address] [place] [address], [place] [address] Oct, [facility] [address] [id number] [address] [place] [address], [place] [address] Oct, [facility] [address] [id number] [address] [place] [address], [place] [address] Oct, [facility] [address] [id number] [address] [place] [address], [place] [address] Oct, 2014 [facility] [address] [id number] [address] [place] [address], [place] [address] Oct, [facility] [address] [id number] [address] [place] [address], [place] [address] Oct, [facility] [address] [id number] [address] [place] [address], [place] [address] Oct, [facility] [address] [id number] [address] [place] [address], [place] [address] Sep, [facility] [address] [id number] [address] [place] [address], [place] [address] 14 Sep, 2014 [facility] [address] [id number] [address] [place] [address], [place] [address] Sep, [facility] [address] [id number] [address] [place] [address], [place] [address] Sep, [facility] [address] [id number] [address] [place] [address], [place] [address] Sep, [facility] [address] [id number] [address] [place] [address], [place] [address] Sep, [facility] [address] [id number] [address] [place] [address], [place] [address] Aug, [facility] [address] [id number] [address] [place] [address], [place] [address] Aug, [facility] [address] [id number] [address] [place] [address], [place] [address] Aug, [facility] [address] [id number] [address] [place] [address], [place] [address] Aug, [facility] [address] [id number] [address] [place] [address], [place] [address] Aug, [facility] [address] [id number] [address] [place] [address], [place] [address] Aug, [facility] [address] [id number] [address] [place] [address], [place] [address] Aug, [facility] [address] [id number] [address] [place] [address], [place] [address] Aug, [facility] [address] [id number] [address] [place] [address], [place] [address] Aug, [facility] [address] [id number] [address] [place] [address], [place] [address] Aug, [facility] [address] [id number] [address] [place] [address], [place] [address] Jul, [facility] [address] [id number] [address] [place] [address], [place] [address] Jul, [facility] [address] [id number] [address] [place] [address], [place] [address] Jul, [facility] [address] [id number] [address] [place] [address], [place] [address] Jul, [facility] [address] [id number] [address] [place] [address], [place] [address] Jun, [facility] [address] [id number] [address] [place] [address], [place] [address] Jun, [facility] [address] [id number] [address] [place] [address], [place] [address] Jun, [facility] [address] [id number] [address] [place] [address], [place] [address] Jun, [facility] [address] [id number] [address] [place] [address], [place] [address] Jun, [facility] [address] [id number] [address] [place] [address], [place] [address] Jun, [facility] [address] [id number] [address] [place] [address], [place] [address] Jun, [facility] [address] [id number] [address] [place] [address] Jun, [facility] [address] [id number] [address] [place] [address] May, [facility] [address] [id number] [address] [place] [address], [place] [address] May, [facility] [address] [id number] [address] [place] [address], [place] [address] May, [facility] [address] [id number] [address] [place] [address], [place] [address] May, [facility] [address] [id number] [facility] [place] [address] 15 May, 2013 [facility] [address] [id number] [address] [place] [address], [place] [address] May, [facility] [address] [id number] [address] [place] [address], [place] [address] May, [facility] [address] [id number] [address] [place] [address], [place] [address] May, [facility] [address] [id number] [address] [place] [address], [place] [address] Apr, [facility] [address] [id number] [address] [place] [address], [place] [address] Apr, [facility] [address] [id number] [address] [place] [address], [place] [address] Apr, [facility] [address] [id number] [address] [place] [address], [place] [address] Apr, [facility] [address] [id number] [address] [place] [address], [place] [address] Apr, [facility] [address] [id number] [address] [place] [address], [place] [address] Apr, [facility] [address] [id number] [address] [place] [address], [place] [address] Apr, [facility] [address] [id number] [address] [place] [address], [place] [address] Apr, [facility] [address] [id number] [address] [place] [address], [place] [address] Apr, [facility] [address] [id number] [address] [place] [address], [place] [address] Apr, [facility] [address] [id number] [address] [place] [address], [place] [address] Apr, [facility] [address] [id number] [address] [place] [address], [place] [address] Apr, [facility] [address] [id number] [address] [place] [address], [place] [address] Mar, [facility] [address] [id number] [address] [place] [address], [place] [address] Mar, [facility] [address] [id number] [address] [place] [address], [place] [address] Mar, [facility] [address] [id number] [address] [place] [address], [place] [address] Mar, [facility] [address] [id number] [address] [place] [address], [place] [address] Mar, [facility] [address] [id number] [address] [place] [address], [place] [address] Mar, [facility] [address] [id number] [address] [place] [address], [place] [address] Feb, [facility] [address] [id number] [address] [place] [address], [place] [address] Feb, [facility] [address] [id number] [address] [place] [address], [place] [address] Feb, [facility] [address] [id number] [address] [place] [address], [place] [address] Feb, [facility] [address] [id number] [address] [place] [address], [place] [address] Feb, [facility] [address] [id number] [address] [place] [address], [place] [address] Feb, [facility] [address] [id number] [address] [place] [address], [place] [address] Feb, [facility] [address] [id number] [address] [place] [address], [place] [address] Feb, [facility] [address] [id number] [address] [place] [address], [place] [address] 05 Feb, 2014 [facility] [address] [id number] [address] [place] [address], [place] [address] Feb, [facility] [address] [id number] [facility] [place] [address] Feb, [facility] [address] [id number] [address] [place] [address], [place] [address] Feb, [facility] [address] [id number] [address] [place] [address], [place] [address] Feb, [facility] [address] [id number] [address] [place] [address], [place] [address] Feb, [facility] [address] [id number] [address] [place] [address], [place] [address] January, [facility] [address] [id number] [address] [place] [address], [place] [address] January, [facility] [address] [id number] [address] [place] [address], [place] [address] January, [facility] [address] [id number] [address] [place] [address], [place] [address] January, [facility] [address] [id number] [address] [place] [address], [place] [address] January, [facility] [address] [id number] [address] [place] [address], [place] [address] January, [facility] [address] [id number] [address] [place] [address], [place] [address] Dec, [facility] [address] [id number] [address] [place] [address], [place] [address] Dec, [facility] [address] [id number] [address] [place] [address], [place] [address] Dec, [facility] [address] [id number] [address] [place] [address], [place] [address] Dec, [facility] [address] [id number] [address] [place] [address], [place] [address] Dec, [facility] [address] [id number] [facility] [place] [address] Dec, [facility] [address] [id number] [address] [place] [address], [place] [address] Dec, [facility] [address] [id number] [address] [place] [address], [place] [address] Dec, [facility] [address] [id number] [address] [place] [address], [place] [address] Nov, [facility] [address] [id number] [address] [place] [address], [place] [address] Nov, [facility] [address] [id number] [address] [place] [address], [place] [address] Nov, [facility] [address] [id number] [address] [place] [address], [place] [address] Nov, [facility] [address] [id number] [address] [place] [address], [place] [address] Nov, [facility] [address] [id number] [address] [place] [address], [place] [address] Nov, [facility] [address] [id number] [address] [place] [address], [place] [address] Nov, [facility] [address] [id number] [address] [place] [address], [place] [address] Nov, [facility] [address] [id number] [address] [place] [address], [place] [address] Oct, [facility] [address] [id number] [address] [place] [address], [place] [address] Oct, [facility] [address] [id number] [address] [place] [address], [place] [address] Oct, [facility] [address] [id number] [address] [place] [address], [place] [address] Oct, [facility] [address] [id number] [address] [place] [address], [place] [address] Oct, [facility] [address] [id number] [address] [place] [address], [place] [address] Oct, [facility] [address] [id number] [address] [place] [address], [place] [address] Oct, [facility] [address] [id number] [address] [place] [address], [place] [address] Oct, [facility] [address] [id number] [address] [place] [address], [place] [address] Oct, [facility] [address] [id number] [address] [place] [address], [place] [address] Oct, [facility] [address] [id number] [address] [place] [address], [place] [address] Sep, [facility] [address] [id number] [address] [place] [address], [place] [address] Sep, [facility] [address] [id number] [address] [place] [address], [place] [address] Sep, [facility] [address] [id number] [address] [place] [address], [place] [address] Sep, [facility] [address] [id number] [address] [place] [address], [place] [address] Sep, [facility] [address] [id number] [address] [place] [address], [place] [address] Sep, [facility] [address] [id number] [address] [place] [address], [place] [address] Aug, [facility] [address] [id number] [address] [place] [address], [place] [address] Aug, [facility] [address] [id number] [address] [place] [address], [place] [address] Aug, [facility] [address] [id number] [address] [place] [address], [place] [address] Aug, [facility] [address] [id number] [address] [place] [address], [place] [address] Aug, [facility] [address] [id number] [address] [place] [address], [place] [address] Aug, [facility] [address] [id number] [address] [place] [address], [place] [address] Aug, [facility] [address] [id number] [address] [place] [address], [place] [address] Aug, [facility] [address] [id number] [address] [place] [address], [place] [address] Jul, [facility] [address] [id number] [address] [place] [address], [place] [address] Jul, [facility] [address] [id number] [address] [place] [address], [place] [address] Jul, [facility] [address] [id number] [address] [place] [address], [place] [address] Jul, [facility] [address] [id number] [address] [place] [address], [place] [address] Jul, [facility] [address] [id number] [address] [place] [address], [place] [address] Jul, [facility] [address] [id number] [address] [place] [address], [place] [address] Jun, [facility] [address] [id number] [address] [place] [address], [place] [address] Jun, [facility] [address] [id number] [address] [place] [address], [place] [address] Jun, [facility] [address] [id number] [address] [place] [address], [place] [address] 24 May, 2013 [facility] [address] [id number] [address] [place] [address], [place] [address] 11 May, 2013 [facility] [address] [id number] [address] [place] [address], [place] [address] May, [facility] [address] [id number] [address] [place] [address], [place] [address] Apr, [facility] [address] [id number] 02 [place] [address], [place] [address] Apr, [facility] [address] [id number] [address] [place] [address], [place] [address] Apr, [facility] [address] [id number] [address] [place] [address], [place] [address] Apr, [facility] [address] [id number] [address] [place] [address], [place] [address] Mar, [facility] [address] [id number] [address] [place] [address], [place] [address] Mar, [facility] [address] [id number] [address] [place] [address], [place] [address] Mar, [facility] [address] [id number] [address] [place] [address], [place] [address] Mar, [facility] [address] [id number] [address] [place] [address], [place] [address] Feb, [facility] [address] [id number] [address] [place] [address], [place] [address] Feb, [facility] [address] [id number] [address] [place] [address], [place] [address] Feb, [facility] [address] [id number] [address] [place] [address], [place] [address] Feb, [facility] [address] [id number] [address] [place] [address], [place] [address] January, [facility] [address] [id number] [address] [place] [address], [place] [address] January, [facility] [address] [id number] [address] [place] [address], [place] [address] January, [facility] [address] [id number] [address] [place] [address], [place] [address] Nov, [facility] [address] [id number] [address] [place] [address], [place] [address] Nov, [facility] [address] [id number] [address] [place] [address], [place] [address] Oct, [facility] [address] [id number] [address] [place] [address], [place] [address] Oct, [facility] [address] [id number] [address] [place] [address], [place] [address] Oct, [facility] [address] [id number] [address] [place] [address], [place] [address] Oct, [facility] [address] [id number] [address] [place] [address], [place] [address] Sep, [facility] [address] [id number] [address] [place] [address], [place] [address] Sep, [facility] [address] [id number] [address] [place] [address], [place] [address] Sep, [facility] [address] [id number] [address] [place] [address], [place] [address] Aug, [facility] [address] [id number] [address] [place] [address], [place] [address] Aug, [facility] [address] [id number] [address] [place] [address], [place] [address] Aug, [facility] [address] [id number] [address] [place] [address], [place] [address] Aug, [facility] [address] [id number] [address] [place] [address], [place] [address] Aug, [facility] [address] [id number] [address] [place] [address], [place] [address] Aug, [facility] [address] [id number] [address] [place] [address], [place] [address] Jul, [facility] [address] [id number] [address] [place] [address], [place] [address] Jul, [facility] [address] [id number] [address] [place] [address], [place] [address] Jun, [facility] [address] [id number] [address] [place] [address], [place] [address] Jun, [facility] [address] [id number] [address] [place] [address], [place] [address] Jun, [facility] [address] [id number] [address] [place] [address], [place] [address] Apr, [facility] [address] [id number] [address] [place] [address], [place] [address] Apr, [facility] [address] [id number] [address] [place] [address], [place] [address] Mar, [facility] [address] [id number] [address] [place] [address], [place] [address] Mar, [facility] [address] [id number] [address] [place] [address], [place] [address] Mar, [facility] [address] [id number] [address] [place] [address], [place] [address] Mar, [facility] [address] [id number] [address] [place] [address], [place] [address] Feb, [facility] [address] [id number] [address] [place] [address] Feb, [facility] [address] [id number] [address] [place] [address], [place] [address] Feb, [facility] [address] [id number] [address] [place] [address], [place] [address] January, [facility] [address] [id number] [address] [place] [address], [place] [address] January, [facility] [address] [id number] [address] [place] [address] January, [facility] [address] [id number] [address] [place] [address], [place] [address] January, [facility] [address] [id number] [address] [place] [address], [place] [address] Dec, [facility] [address] [id number] [address] [place] [address], [place] [address] Dec, [facility] [address] [id number] [address] [place] [address], [place] [address] Nov, [facility] [address] [id number] [address] [place] [address], [place] [address] Nov, [facility] [address] [id number] [address] [place] [address], [place] [address] 16 Oct, 2011 [facility] [address] [id number] [address] [place] [address], [place] [address] Oct, [facility] [address] [id number] [address] [place] [address], [place] [address] Sep, [facility] [address] [id number] [address] [place] [address], [place] [address] Sep, [facility] [address] [id number] [address] [place] [address], [place] [address] Sep, [facility] [address] [id number] [address] [place] [address], [place] [address] Sep, [facility] [address] [id number] [address] [place] [address], [place] [address] Aug, [facility] [address] [id number] [address] [place] [address], [place] [address] Aug, [facility] [address] [id number] [address] [place] [address], [place] [address] Aug, [facility] [address] [id number] [address] [place] [address], [place] [address] Jul, [facility] [address] [id number] [address] [place] [address] Aug, [facility] [address] [id number] [address] [place] [address] Aug, [facility] [address] [id number] [address] [place] [address] Aug, [facility] [address] [id number] [address] [place] [address] Aug, [facility] [address] [id number] [address] [place] [id number] Jul, [facility] [address] [id number] [address] [place] [id number] Jul, [facility] [address] [id number] [address] [place] [address] Jul, [facility] [address] [id number] [address] [place] [address] Jun, [facility] [address] [id number] [address] [place] [address] Jun, [facility] [address] [id number] [address] [place] [address] Jun, [facility] [address] [id number] [address] [place] [address] Apr, [facility] [address] [id number] [address] [place] [id number] Mar, IMMUNIZATIONS No Known Immunizations SOCIAL HISTORY [...]
--- OUTSIDE RECORDS SUMMARY | 2020-03-18 14:35 | XMS REPORT ---
Author Author George WAYNE Organization [facility] Address [address] [place] [address] Care Team Providers Care Trashman Name Role Phone REYNA WAYNE Unavailable PROBLEMS Type Condition ICD9-CM Code QUS56-GV Code Onset Dates Condition S tatus SNOMED Code Problem Hypertension, benign I10 Active 67758538 Problem Other chronic pain G89.29 Active 8 9587091 Problem Lumbago with sciatica, unspecified side M54.40 Active 618651353 Problem Controlled type 2 diabetes m ellitus without complication, without long- term current use of insulin E11.9 Active 709232465 Problem Lumbago with sciatica, right side M54.41 Active 333776238 Problem Adjustment disorder with disturbance of emotion F4 3.29 Active 29668786 Problem MELE (obstructive sleep apnea) G47.33 Active 75571118 Problem Non morbid obesity E66.9 Active 4 97063901 Problem Hammer toe of left foot M20.42 Active 381030635 Problem Mood disorder F39 Active 592762 05 Problem Deformity of left foot M21.962 Active 666165967 Problem Lumbago with sciatica, left side M54.42 Active 834759074 Problem Erectile dysfunction due to diseases classified elsewhere N52.1 Active 528429458 Problem Obstructive sleep apnea syndrome G47.33 Active 99344674 Problem Type 2 diabetes mellitus wit h diabetic neuropathy, without long-term current use of insulin E11.40 Active 89292 006 Problem Essential hypertension I10 Active 07180693 ALLERGIES No Information ENCOUNTERS Encounter Location Date Diagnosis [facility] [address] [facility] [id number] [address] [place] [phone] May, [facility] [address] [facility] [id number] [address] [place] [address] Apr, Lumbago with sciatica, unspe cified side M54.40 [facility] [address] [place] [id number] [address] [place] [address] Apr, [place] [address] [address] Apr, [address] [address] Apr, Hammer toe of left foot M20.42 ; Chest p ain R07.9 ; Preoperative examination Z01.818 and Morbid obesity E66.01 [place] [address] [address] Apr, Morbid obesity E66.01 ; Bron chitis J40 and High risk medications (not anticoagulants) long-term use Z79.899 [place] [address] [address] Apr, Lumbago with sciatica, unspe cified side M54.40 [place] [address] [address] Apr, [place] [address] [address] Mar, Lumbar neuritis M54.16 and M orbid obesity E66.01 [place] [address] [address] Mar, [place] [address] [address] Mar, [place] [address] [address] Mar, Lumbago with sciatica, unspe cified side M54.40 [place] [address] [address] Mar, Morbid obesity E66.01 ; Coug marco R05 ; 2+ pitting edema R60.9 and Controlled type 2 diabetes mellitus without complication, without long-term current use of insulin E11.9 [place] [address] [place] [address] Feb, [facility] [address] [id number] [address] [place] [address] Feb, Lumbago with sciatica, unspe cified side M54.40 [facility] [address] [id number] [address] [place] [address] Feb, [facility] [address] [id number] [address] [place] [address] Feb, Controlled type 2 diabetes m ellitus without complication, without long-term current use of insulin E11.9 and Morbid obesity E66.01 [facility] [address] [facility] [id number] [address] [place] [address] January, Deformity of left foot M21.9 62 [facility] [address] [facility] [id number] [address] [place] [address] January, [facility] [address] [facility] [id number] [address] [place] [address] January, Lumbago with sciatica, unspe cified side M54.40 [facility] [address] [facility] [id number] [address] [place] [address] January, [facility] [address] [facility] [id number] [address] [place] [address] January, Lumbago with sciatica, unspe cified side M54.40 [facility] [address] [id number] [address] [place] [address] January, [facility] [address] [id number] [address] [place] [address] January, Acute right-sided thoracic b ack pain M54.6 [facility] [address] [id number] [address] [place] [address] January, Acute right-sided thoracic b ack pain M54.6 [facility] [address] [id number] [address] [place] [address] January, Chest pain, unspecified type R07.9 ; Morbid obesity E66.01 and Scabies B86 [place] [address] [facility] [id number] [address] [place] [address] Dec, Lumbago with sciatica, unspe cified side M54.40 [place] [address] [place] [id number] [address] [place] [address] Dec, Toenail fungus B35.1 [place] [address] [facility] [id number] [address] [place] [address] Dec, Toenail fungus B35.1 [place] [address] [place] [id number] [address] [place] [address] Dec, Acute right-sided thoracic b ack pain M54.6 [place] [address] [place] [address] Dec, Lumbago with sciatica, unspe cified side M54.40 [place] [address] [place] [id number] [address] [place] [address] Nov, Hammer toe of left foot M20. 42 ; Deformity of left foot M21.962 and Type 2 diabetes mellitus with diabetic neuropathy, without long-term current use of insulin E11.40 [facility] [address] [place] [id number] [address] [place] [address] Nov, Acute right-sided thoracic b ack pain M54.6 ; Morbid obesity E66.01 and Rt flank pain R10.9 [place] [address] [facility] [id number] [address] [place] [address] Nov, Lumbago with sciatica, unspe cified side M54.40 [place] [address] [place] [id number] [address] [place] [address] Oct, Lumbago with sciatica, unspe cified side M54.40 [facility] [address] [place] [id number] [address] [place] [address] Sep, Lumbago with sciatica, unspe cified side M54.40 [facility] [address] [place] [id number] [address] [place] [address] Sep, [facility] [address] [place] [id number] [address] [place] [address] Sep, BMI 40.0-44.9, adult Z68.41 ; Lumbago with sciatica, left side M54.42 ; Lumbago with sciatica, right side M54.41 and Other chronic pain G89.29 [place] [address] [place] [id number] [address] [place] [address] Aug, Lumbago with sciatica, unspe cified side M54.40 [place] [address] [place] [id number] [address] [place] [address] Aug, Type 2 diabetes mellitus wit h diabetic neuropathy, without long- term current use of insulin E11.40 ; Hammer toe of left foot M20.42 ; Hypertension, benign I10 and Frequent headaches R51 [place] [address] [place] [id number] [address] [place] [address] Jul, Lumbago with sciatica, unspe cified side M54.40 [place] [address] [place] [id number] [address] [place] [address] Jul, [place] [address] [place] [id number] [address] [place] [address] Jul, Essential hypertension I10 a nd Controlled type 2 diabetes mellitus without complication, without long-term current use of insulin E11.9 [place] [address] [facility] [id number] [address] [place] [address] Jul, Essential hypertension I10 ; Controlled type 2 diabetes mellitus without complication, without long-term current use of insulin E11.9 and BMI 40.0-44.9, adult Z68.41 [place] [address] [place] [id number] [address] [place] [address] Jul, Dysfunction of left eustachi an tube H69.82 [facility] [address] [facility] [id number] [address] [place] [address] Jul, Lumbago with sciatica, unspe cified side M54.40 [facility] [address] [facility] [id number] [address] [place] [address] [id number] Jun, Dental examination Z01.20 [facility] [address] [facility] [id number] [address] [place] [address] Jun, Lumbago with sciatica, unspe cified side M54.40 and Encounter for immunization Z23 [facility] [address] [facility] [id number] [address] [place] [address] Jun, Dysfunction of left eustachi an tube H69.[id number] [place] [address] [id number] Jun, Dental examination Z01.20 [facility] [address] [facility] [id number] [address] [place] [address] Jun, Other chronic pain G89.29 [facility] [address] [place] [id number] [place] [address] [id number] Jun, Dental examination Z01.20 [facility] [address] [facility] [id number] [address] [place] [address] Jun, [facility] [address] [facility] [id number] [address] [place] [address] Jun, Bronchitis J40 ; Dysfunction of left eustachian tube H69.82 and BMI 45.0-49.9, adult Z68.42 [facility] [address] [facility] [id number] [address] [place] [address] Jun, Lumbago with sciatica, unspe cified side M54.40 [facility] [address] [facility] [id number] [address] [place] [address] May, Type 2 diabetes mellitus wit h diabetic neuropathy, without long- term current use of insulin E11.40 and Hypertension, benign I10 [facility] [address] [place] [id number] [address] [place] [address] May, Lumbago with sciatica, unspe cified side M54.40 [facility] [address] [place] [id number] [address] [place] [address] Apr, [facility] [address] [place] [id number] [address] [place] [address] Apr, Controlled type 2 diabetes m ellitus without complication, without long-term current use of insulin E11.9 ; Insect bite (nonvenomous), right ankle, initial encounter S90.561A ; Local infection of the skin and subcutaneous tissue, unspecified L08.9 ; Acute swimmer''s ear of left side H60.332 and BMI 45.0-49.9, adult Z68.42 [place] [address] [place] [id number] [place] [address] Apr, Lumbago with sciatica, unspe cified side M54.40 [place] [address] [place] [id number] [place] [address] Mar, [place] [address] [place] [id number] [address] [place] [address] Mar, Lumbago with sciatica, unspe cified side M54.40 [place] [address] [place] [id number] [address] [place] [address] Feb, Lumbago with sciatica, unspe cified side M54.40 [place] [address] [place] [id number] [address] [place] [address] Feb, BMI 45.0-49.9, adult Z68.42 and Obstructive sleep apnea syndrome G47.33 [place] [address] [place] [id number] [address] [place] [address] January, Lumbar neuritis M54.16 [place] [address] [place] [id number] [place] [address] January, Lumbago with sciatica, unspe cified side M54.40 [place] [address] [place] [id number] [address] [place] [address] Dec, Controlled type 2 diabetes m maribell without complication, without long-term current use of insulin E11.9 ; Erectile dysfunction due to diseases classified elsewhere N52.1 and Mood disorder F39 [place] [address] [address] Dec, Lumbago with sciatica, unspe cified side M54.40 [place] [address] [address] Dec, Obstructive sleep apnea synd luis G47.33 [place] [address] [address] Nov, Lumbago with sciatica, unspe cified side M54.40 ; Hypertension, benign I10 and Mood disorder F39 [place] [address] [place] [id number] [place] [address] Nov, Other chronic pain G89.29 [place] [address] [address] Nov, Lumbago with sciatica, unspe cified side M54.40 [facility] [address] [place] [address] [id number] Nov, Dental examination Z01.20 [place] [address] [place] [id number] [place] [address] Oct, [place] [address] [place] [id number] [place] [address] Oct, Lumbago with sciatica, unspe cified side M54.40 [place] [address] [place] [id number] [place] [address] Oct, Lumbago with sciatica, unspe cified side M54.40 [facility] [address] [id number] [address] [place] [id number] 14 Oct, 2017 [facility] [address] [id number] [address] [place] [address] Oct, [facility] [address] [id number] [address] [place] [address] [id number] 13 Oct, 2017 Dental examination Z01.20 [facility] [address] [id number] [address] [place] [address] Oct, [facility] [address] [facility] [id number] [address] [place] [address] Oct, Pain in right knee M25.561 [facility] [address] [facility] [id number] [address] [place] [address] Sep, [facility] [address] [facility] [id number] [address] [place] [address] Sep, Other chronic pain G89.29 [facility] [address] [facility] [id number] [address] [place] [address] Sep, Lumbago with sciatica, unspe cified side M54.40 [facility] [address] [facility] [id number] [address] [place] [address] Sep, [facility] [address] [facility] [id number] [address] [place] [address] Sep, Viral URI J06.9 and BMI 45.0 -49.9, adult Z68.42 [facility] [address] [facility] [id number] [address] [place] [address] Aug, Foreign body hand S60.559A a nd BMI 45.0-49.9, adult Z68.42 [facility] [address] [facility] [id number] [address] [place] [address] Aug, [facility] [address] [facility] [id number] [address] [place] [address] Aug, Lumbago with sciatica, unspe cified side M54.40 [facility] [address] [facility] [id number] [address] [place], [place] [id number] Aug, Vertigo R42 ; Dysfunction of both eustachian tubes H69.83 ; Low back pain M54.5 and Other chronic pain G89.29 [facility] [address] [place] [id number] [address] [place] [address] Aug, Dizziness R42 and Acute bila teral otitis media H66.93 [place] [address] [facility] [id number] [address] [place] [address] Aug, Lumbago with sciatica, unspe cified side M54.40 [facility] [address] [place] [address] [id number] Jul, Dental examination Z01.20 [place] [address] [place] [id number] [address] [place] [address] Jul, [facility] [address] [place] [id number] [address] [place] [address] Jul, [place] [address] [address] Jul, Dysfunction of both eustachi an tubes H69.83 [place] [address] [place] [id number] [place] [address] Jul, Controlled type 2 diabetes m taraitus without complication, without long-term current use of insulin E11.9 [facility] [address] [place] [id number] [address] [place] [address] Jul, Controlled type 2 diabetes m ellitus without complication, without long-term current use of insulin E11.9 [facility] [address] [place] [id number] [address] [place] [address] 06 Jul, 2017 Dizziness R42 and BMI 40.0-4 4.9, adult Z68.41 [place] [address] [id number] [address] [place] [address] Jul, Controlled type 2 diabetes m ellitus without complication, without long-term current use of insulin E11.9 [facility] [address] [id number] [address] [place] [address] Jul, Lumbago with sciatica, unspe cified side M54.40 [facility] [id number] [place] [address] [id number] Jul, Dental examination Z01.20 [facility] [address] [id number] [address] [place] [id number] Jun, [facility] [address] [id number] [place] [address] [id number] Jun, Dental examination Z01.20 [place] [address] [id number] [address] [place] [address] Jun, Controlled type 2 diabetes m ellitus without complication, without long-term current use of insulin E11.9 [facility] [address] [id number] [address] [place] [address] Jun, Lumbago with sciatica, unspe cified side M54.40 [facility] [address] [id number] [address] [place] [address] [id number] May, Dental examination Z01.20 [facility] [address] [id number] [address] [place] [address] May, Controlled type 2 diabetes m ellitus without complication, without long-term current use of insulin E11.9 [facility] [address] [id number] [address] [place] [address] [id number] May, Dental examination Z01.20 [facility] [address] [id number] [address] [place] [address] May, Bronchitis J40 ; Dry mouth R 68.2 ; Non morbid obesity E66.9 and Controlled type 2 diabetes mellitus without complication, without long-term current use of insulin E11.9 [facility] [address] [id number] [address] [place] [phone] 16 May, 2017 Encounter for immunization Z 23 [facility] [address] [id number] [address] [place] [address] 07 May, 2017 Lumbago with sciatica, unspe cified side M54.40 [facility] [address] [id number] [address] [place] [address] 05 May, 2017 [facility] [id number] [place] [address] [id number] Apr, Dental examination Z01.20 [facility] [address] [id number] [address] [place] [address] Apr, Lumbago with sciatica, unspe cified side M54.40 [facility] [address] [id number] [address] [place] [address] Mar, Lumbago with sciatica, left side M54.42 [facility] [address] [facility] [id number] [address] [place] [address] Mar, [facility] [address] [facility] [id number] [address] [place] [address] Mar, Lumbar neuritis M54.16 [facility] [address] [id number] [address] [place] [address] Mar, [facility] [address] [id number] [place] [address] [id number] Mar, Dental examination Z01.20 [facility] [address] [id number] [address] [place] [address] Mar, MELE (obstructive sleep apnea ) G47.33 ; Neuropathy involving both lower extremities G57.93 and Frequent headaches R51 [facility] [address] [id number] [address] [place] [address] Mar, Lumbago with sciatica, unspe cified side M54.40 [place] [address] [id number] [address] [place] [address] Feb, Lumbago with sciatica, unspe cified side M54.40 and Controlled type 2 diabetes mellitus without complication, without long-term current use of insulin E11.9 [place] [address] [id number] [address] [place] [address] January, Hypertension, benign I10 and Bilateral low back pain with sciatica, sciatica laterality unspecified M54.40 [place] [address] [id number] [address] [place] [phone] January, Hypertension, benign I10 ; L umbago with sciatica, unspecified side M54.40 ; Other chronic pain G89.29 and Controlled type 2 diabetes mellitus without complication, without long-term current use of insulin E11.9 [place] [address] [id number] [address] [place] [address] January, Lumbar neuritis M54.16 [place] [address] [id number] [address] [place] [address] January, [place] [address] [id number] [address] [place] [phone] Dec, Lumbago with sciatica, right side M54.41 and Lumbar neuritis M54.16 [place] [address] [id number] [address] [place] [id number] Dec, Lumbar neuritis M54.16 [place] [address] [id number] [address] [place] [id number] Dec, Lumbar neuritis M54.16 [place] [address] [id number] [address] [place] [id number] Nov, Lumbar neuritis M54.16 ; Lum bago with sciatica, right side M54.41 ; Controlled type 2 diabetes mellitus without complication, without long-term current use of insulin E11.9 and Rash and nonspecific skin eruption R21 [place] [address] [id number] [address] [place] [id number] Nov, Lumbar neuritis M54.16 and P alexi miroslava L23.7 [place] [id number] [place] [id number] Oct, Lumbar neuritis M54.16 ; Cou ghing R05 and Mood disorder F39 [place] [address] [place] [id number] Sep, Lumbago with sciatica, right side M54.41 [place] [address] [id number] Sep, Adjustment disorder with dis turbance of emotion F43.29 and Pain management R52 [place] [address] [id number] Sep, [place] [address] [id number] Sep, [place] [address] [id number] Sep, Controlled type 2 diabetes evens reyna without complication, without long-term current use of insulin E11.9 and Lumbago with sciatica, unspecified side M54.40 [place] [address] [id number] Aug, Controlled type 2 diabetes evens reyna without complication, without long-term current use of insulin E11.9 ; Pain in right knee M25.561 ; Pain in left knee M25.562 ; Other chronic pain G89.29 ; Lumbago with sciatica, right side M54.41 ; Neck pain M54.2 and Encounter for immunization Z23 [place] [address] [place] [id number] Jul, [place] [address] [id number] Jul, Controlled type 2 diabetes evens reyna without complication, without long-term current use of insulin E11.9 [facility] [address] [id number] [address] [place] [id number] 17 Jul, 2016 [facility] [address] [id number] [address] [place] [id number] 15 Jul, 2016 [facility] [address] [id number] [address] [place] [id number] Jul, Lumbago with sciatica, left side M54.42 ; Lumbago with sciatica, right side M54.41 and Other chronic pain G89.29 [facility] [address] [id number] [address] [place] [id number] Jul, [facility] [address] [id number] [address] [place] [id number] Jul, [facility] [address] [id number] [address] [place] [id number] Jun, [facility] [address] [id number] [address] [place] [id number] Jun, Lumbago with sciatica, right side M54.41 and Other chronic pain G89.29 [facility] [address] [id number] [address] [place] [id number] Jun, Cervicalgia M54.2 ; Lumbago with sciatica, unspecified side M54.40 and Other chronic pain G89.29 [facility] [address] [id number] [address] [place] [id number] 15 May, 2016 Pain in right knee M25.561 ; Pain in left knee M25.562 and Other chronic pain G89.29 [facility] [address] [id number] [address] [place] [id number] 14 May, 2016 [facility] [address] [facility] [id number] [address] [place] [id number] 05 Apr, 2016 Other chronic pain G89.29 an d Pain in right knee M25.561 [facility] [address] [id number] [address] [place] [id number] Apr, Pain in right knee M25.561 [facility] [address] [id number] [address] [place] [id number] Mar, [facility] [address] [id number] [address] [place] [id number] Mar, Mood disorder F39 and Contro lled type 2 diabetes mellitus without complication, without long-term current use of insulin E11.9 [facility] [address] [id number] [address] [place] [id number] Mar, Pain in right knee M25.561 ; Pain in left knee M25.562 ; Other chronic pain G89.29 ; Obstructive sleep apnea syndrome G47.33 ; Mood disorder F39 and Controlled type 2 diabetes mellitus without complication, without long- term current use of insulin E11.9 [facility] [address] [id number] [address] [place] [id number] Mar, [facility] [address] [id number] [address] [place] [id number] Feb, Dental examination Z01.20 [facility] [address] [id number] [address] [place] [id number] Feb, [facility] [address] [id number] [address] [place] [phone] Feb, Osteoarthritis of right knee , unspecified osteoarthritis type M17.9 [facility] [address] [id number] [address] [place] [id number] January, [facility] [address] [id number] [address] [place] [id number] January, Dental examination Z01.20 [facility] [address] [id number] [address] [place] [id number] January, [facility] [address] [id number] [address] [place] [address] [id number] January, Dental examination Z01.20 an d Caries K02.9 [facility] [address] [id number] [address] [place] [id number] Dec, Encounter for other preproce dural examination Z01.818 [facility] [address] [id number] [address] [place] [id number] Dec, [facility] [address] [id number] [address] [place] [id number] Dec, Knee pain M25.569 [facility] [address] [id number] [address] [place] [id number] Dec, Pain in right knee M25.561 [facility] [address] [id number] [address] [place] [phone] Dec, [facility] [address] [id number] [address] [place] [phone] Dec, [facility] [address] [id number] [address] [place] [id number] Dec, Encounter for immunization Z 23 [facility] [address] [id number] [address] [place] [id number] Dec, [facility] [address] [id number] [address] [place] [id number] Dec, [facility] [address] [id number] [address] [place] [id number] Nov, [facility] [address] [id number] [address] [place] [id number] Nov, Hypertension, benign I10 ; C ervicalgia M54.2 ; Pain in right knee M25.561 and Pain in left knee M25.562 [facility] [address] [id number] [address] [place] [id number] Oct, [facility] [address] [id number] [address] [place] [id number] Oct, [facility] [address] [facility] [id number] [address] [place] [id number] Oct, Osteoarthritis of both knees M17.0 [facility] [address] [facility] [id number] [address] [place] [phone] Oct, [facility] [address] [facility] [id number] [address] [place] [phone] Oct, Low back pain M54.5 [facility] [address] [place] [id number] [address] [place] [id number] Oct, Low back pain M54.5 ; Sciati ca, unspecified side M54.30 ; Pain in right knee M25.561 ; Pain in left knee M25.562 ; Pain in right shoulder M25.511 and Pain in left shoulder M25.512 [facility] [address] [place] [id number] [address] [place] [address] Oct, [facility] [address] [place] [id number] [address] [place] [id number] Sep, Pain in right hip M25.551 [facility] [address] [place] [id number] [address] [place] [id number] Sep, Acute upper respiratory infe ction, unspecified J06.9 [facility] [address] [place] [id number] [address] [place] [phone] Aug, Acute upper respiratory infe ction, unspecified J06.9 and Other viral agents as the cause of diseases classified elsewhere B97.89 [facility] [address] [place] [id number] [address] [place] [address] Jul, Arthritis M19.90 [facility] [address] [place] [id number] [address] [place] [address] Jun, Arthritis M19.90 ; Pain in r ight hip M25.551 ; Pain in left hip M25.552 ; Bilateral low back pain with sciatica, sciatica laterality unspecified M54.40 ; Neck pain M54.2 ; Upper back pain M54.9 and Knee pain, unspecified laterality M25.569 [facility] [address] [id number] [address] [place] [phone] 10 May, 2015 Osteoarthritis of both knees 715.96 [facility] [address] [id number] [address] [place] [id number] May, Rash 782.1 [facility] [address] [id number] [address] [place] [id number] Apr, Lumbar strain 847.2 [facility] [address] [id number] [address] [place] [id number] Apr, Rash 782.1 [facility] [address] [id number] [address] [place] [id number] Mar, Rash 782.1 [facility] [address] [facility] [id number] [address] [place] [id number] Feb, Rash 782.1 ; Hemorrhoids 455 .6 and Constipation 564.00 [facility] [address] [id number] [address] [place] [id number] Feb, Osteoarthritis of both knees 715.96 [facility] [address] [id number] [address] [place] [phone] January, [facility] [address] [facility] [id number] [address] [place] [phone] Dec, [facility] [address] [id number] [address] [place] [id number] Dec, [facility] [address] [id number] [address] [place] [id number] Dec, [facility] [address] [id number] [address] [place] [id number] Nov, [facility] [address] [id number] [address] [place] [phone] Nov, [facility] [address] [id number] [address] [place] [id number] Nov, [facility] [address] [id number] [address] [place] [address], [place] [address] Nov, [facility] [address] [id number] [address] [place] [address], [place] [address] Nov, [facility] [address] [id number] [address] [place] [address], [place] [address] Nov, [facility] [address] [id number] [address] [place] [address], [place] [address] Oct, [facility] [address] [id number] [address] [place] [address], [place] [address] Oct, [facility] [address] [id number] [address] [place] [address], [place] [address] Oct, [facility] [address] [id number] [address] [place] [address], [place] [address] Oct, [facility] [address] [id number] [address] [place] [address], [place] [address] Oct, [facility] [address] [id number] [address] [place] [address], [place] [address] Oct, [facility] [address] [id number] [address] [place] [address], [place] [address] Oct, [facility] [address] [id number] [address] [place] [address], [place] [address] Oct, 2014 [facility] [address] [id number] [address] [place] [address], [place] [address] Oct, [facility] [address] [id number] [address] [place] [address], [place] [address] Oct, [facility] [address] [id number] [address] [place] [address], [place] [address] Oct, [facility] [address] [id number] [address] [place] [address], [place] [address] Sep, [facility] [address] [id number] [address] [place] [address], [place] [address] 14 Sep, 2014 [facility] [address] [id number] [address] [place] [address], [place] [address] Sep, [facility] [address] [id number] [address] [place] [address], [place] [address] Sep, [facility] [address] [id number] [address] [place] [address], [place] [address] Sep, [facility] [address] [id number] [address] [place] [address], [place] [address] Sep, [facility] [address] [id number] [address] [place] [address], [place] [address] Aug, [facility] [address] [id number] [address] [place] [address], [place] [address] Aug, [facility] [address] [id number] [address] [place] [address], [place] [address] Aug, [facility] [address] [id number] [address] [place] [address], [place] [address] Aug, [facility] [address] [id number] [address] [place] [address], [place] [address] Aug, [facility] [address] [id number] [address] [place] [address], [place] [address] Aug, [facility] [address] [id number] [address] [place] [address], [place] [address] Aug, [facility] [address] [id number] [address] [place] [address], [place] [address] Aug, [facility] [address] [id number] [address] [place] [address], [place] [address] Aug, [facility] [address] [id number] [address] [place] [address], [place] [address] Aug, [facility] [address] [id number] [address] [place] [address], [place] [address] Jul, [facility] [address] [id number] [address] [place] [address], [place] [address] Jul, [facility] [address] [id number] [address] [place] [address], [place] [address] Jul, [facility] [address] [id number] [address] [place] [address], [place] [address] Jul, [facility] [address] [id number] [address] [place] [address], [place] [address] Jun, [facility] [address] [id number] [address] [place] [address], [place] [address] Jun, [facility] [address] [id number] [address] [place] [address], [place] [address] Jun, [facility] [address] [id number] [address] [place] [address], [place] [address] Jun, [facility] [address] [id number] [address] [place] [address], [place] [address] Jun, [facility] [address] [id number] [address] [place] [address], [place] [address] Jun, [facility] [address] [id number] [address] [place] [address], [place] [address] Jun, [facility] [address] [id number] [address] [place] [id number] Jun, [facility] [address] [id number] [address] [place] [address] May, [facility] [address] [id number] [address] [place] [address], [place] [address] May, [facility] [address] [id number] [address] [place] [address], [place] [address] May, [facility] [address] [id number] [address] [place] [address], [place] [address] May, [facility] [address] [id number] [facility] [address] 15 May, 2013 [facility] [address] [id number] [address] [place] [address], [place] [address] May, [facility] [address] [id number] [address] [place] [address], [place] [address] May, [facility] [address] [id number] [address] [place] [address], [place] [address] May, [facility] [address] [id number] [address] [place] [address], [place] [address] Apr, [facility] [address] [id number] [address] [place] [address], [place] [address] Apr, [facility] [address] [id number] [address] [place] [address], [place] [address] Apr, [facility] [address] [id number] [address] [place] [address], [place] [address] Apr, [facility] [address] [id number] [address] [place] [address], [place] [address] Apr, [facility] [address] [id number] [address] [place] [address], [place] [address] Apr, [facility] [address] [id number] [address] [place] [address], [place] [address] Apr, [facility] [address] [id number] [address] [place] [address], [place] [address] Apr, [facility] [address] [id number] [address] [place] [address], [place] [address] Apr, [facility] [address] [id number] [address] [place] [address], [place] [address] Apr, [facility] [address] [id number] [address] [place] [address], [place] [address] Apr, [facility] [address] [id number] [address] [place] [address], [place] [address] Apr, [facility] [address] [id number] [address] [place] [address], [place] [address] Mar, [facility] [address] [id number] [address] [place] [address], [place] [address] Mar, [facility] [address] [id number] [address] [place] [address], [place] [address] Mar, [facility] [address] [id number] [address] [place] [address], [place] [address] Mar, [facility] [address] [id number] [address] [place] [address], [place] [address] Mar, [facility] [address] [id number] [address] [place] [address], [place] [address] Mar, [facility] [address] [id number] [address] [place] [address], [place] [address] Feb, [facility] [address] [id number] [address] [place] [address], [place] [address] Feb, [facility] [address] [id number] [address] [place] [address], [place] [address] Feb, [facility] [address] [id number] [address] [place] [address], [place] [address] Feb, [facility] [address] [id number] [address] [place] [address], [place] [address] Feb, [facility] [address] [id number] [address] [place] [address], [place] [address] Feb, [facility] [address] [id number] [address] [place] [address], [place] [address] Feb, [facility] [address] [id number] [address] [place] [address], [place] [address] Feb, [facility] [address] [id number] [address] [place] [address], [place] [address] 05 Feb, 2014 [facility] [address] [id number] [address] [place] [address], [place] [address] Feb, [facility] [address] [id number] [facility] [address] Feb, [facility] [address] [id number] [address] [place] [address], [place] [address] Feb, [facility] [address] [id number] [address] [place] [address], [place] [address] Feb, [facility] [address] [id number] [address] [place] [address], [place] [address] Feb, [facility] [address] [id number] [address] [place] [address], [place] [address] January, [facility] [address] [id number] [address] [place] [address], [place] [address] January, [facility] [address] [id number] [address] [place] [address], [place] [address] January, [facility] [address] [id number] [address] [place] [address], [place] [address] January, [facility] [address] [id number] [address] [place] [address], [place] [address] January, [facility] [address] [id number] [address] [place] [address], [place] [address] January, [facility] [address] [id number] [address] [place] [address], [place] [address] Dec, [facility] [address] [id number] [address] [place] [address], [place] [address] Dec, [facility] [address] [id number] [address] [place] [address], [place] [address] Dec, [facility] [address] [id number] [address] [place] [address], [place] [address] Dec, [facility] [address] [id number] [address] [place] [address], [place] [address] Dec, [facility] [address] [id number] [facility] [address] Dec, [facility] [address] [id number] [address] [place] [address], [place] [address] Dec, [facility] [address] [id number] [address] [place] [address], [place] [address] Dec, [facility] [address] [id number] [address] [place] [address], [place] [address] Nov, [facility] [address] [id number] [address] [place] [address], [place] [address] Nov, [facility] [address] [id number] [address] [place] [address], [place] [address] Nov, [facility] [address] [id number] [address] [place] [address], [place] [address] Nov, [facility] [address] [id number] [address] [place] [address], [place] [address] Nov, [facility] [address] [id number] [address] [place] [address], [place] [address] Nov, [facility] [address] [id number] [address] [place] [address], [place] [address] Nov, [facility] [address] [id number] [address] [place] [address], [place] [address] Nov, [facility] [address] [id number] [address] [place] [address], [place] [address] Oct, [facility] [address] [id number] [address] [place] [address], [place] [address] Oct, [facility] [address] [id number] [address] [place] [address], [place] [address] Oct, [facility] [address] [id number] [address] [place] [address], [place] [address] Oct, [facility] [address] [id number] [address] [place] [address], [place] [address] Oct, [facility] [address] [id number] [address] [place] [address], [place] [address] Oct, [facility] [address] [id number] [address] [place] [address], [place] [address] Oct, [facility] [address] [id number] [address] [place] [address], [place] [address] Oct, [facility] [address] [id number] [address] [place] [address], [place] [address] Oct, [facility] [address] [id number] [address] [place] [address], [place] [address] Oct, [facility] [address] [id number] [address] [place] [address], [place] [address] Sep, [facility] [address] [id number] [address] [place] [address], [place] [address] Sep, [facility] [address] [id number] [address] [place] [address], [place] [address] Sep, [facility] [address] [id number] [address] [place] [address], [place] [address] Sep, [facility] [address] [id number] [address] [place] [address], [place] [address] Sep, [facility] [address] [id number] [address] [place] [address], [place] [address] Sep, [facility] [address] [id number] [address] [place] [address], [place] [address] Aug, [facility] [address] [id number] [address] [place] [address], [place] [address] Aug, [facility] [address] [id number] [address] [place] [address], [place] [address] Aug, [facility] [address] [id number] [address] [place] [address], [place] [address] Aug, [facility] [address] [id number] [address] [place] [address], [place] [address] Aug, [facility] [address] [id number] [address] [place] [address], [place] [address] Aug, [facility] [address] [id number] [address] [place] [address], [place] [address] Aug, [facility] [address] [id number] [address] [place] [address], [place] [address] Aug, [facility] [address] [id number] [address] [place] [address], [place] [address] Jul, [facility] [address] [id number] [address] [place] [address], [place] [address] Jul, [facility] [address] [id number] [address] [place] [address], [place] [address] Jul, [facility] [address] [id number] [address] [place] [address], [place] [address] Jul, [facility] [address] [id number] [address] [place] [address], [place] [address] Jul, [facility] [address] [id number] [address] [place] [address], [place] [address] Jul, [facility] [address] [id number] [address] [place] [address], [place] [address] Jun, [facility] [address] [id number] [address] [place] [address], [place] [address] Jun, [facility] [address] [id number] [address] [place] [address], [place] [address] Jun, [facility] [address] [id number] [address] [place] [address], [place] [address] 24 May, 2013 [facility] [address] [id number] [address] [place] [address], [place] [address] 11 May, 2013 [facility] [address] [id number] [address] [place] [address], [place] [address] May, [facility] [address] [id number] [address] [place] [address], [place] [address] Apr, [facility] [address] [id number] [address] [place] [address], [place] [address] Apr, [facility] [address] [id number] [address] [place] [address], [place] [address] Apr, [facility] [address] [id number] [address] [place] [address], [place] [address] Apr, [facility] [address] [id number] [address] [place] [address], [place] [address] Mar, [facility] [address] [id number] [address] [place] [address], [place] [address] Mar, [facility] [address] [id number] [address] [place] [address], [place] [address] Mar, [facility] [address] [id number] [address] [place] [address], [place] [address] Mar, [facility] [address] [id number] [address] [place] [address], [place] [address] Feb, [facility] [address] [id number] [address] [place] [address], [place] [address] Feb, [facility] [address] [id number] [address] [place] [address], [place] [address] Feb, [facility] [address] [id number] [address] [place] [address], [place] [address] Feb, [facility] [address] [id number] [address] [place] [address], [place] [address] January, [facility] [address] [id number] [address] [place] [address], [place] [address] January, [facility] [address] [id number] [address] [place] [address], [place] [address] January, [facility] [address] [id number] [address] [place] [address], [place] [address] Nov, [facility] [place] [address] [id number] [address] [place] [address], [place] [address] Nov, [facility] [address] [id number] [address] [place] [address], [place] [address] Oct, [facility] [place] [address] [id number] [address] [place] [address], [place] [address] Oct, [facility] [address] [id number] [address] [place] [address], [place] [address] Oct, [facility] [address] [id number] [address] [place] [address], [place] [address] Oct, [facility] [place] [address] [id number] [address] [place] [address], [place] [address] Sep, [facility] [place] [address] [id number] [address] [place] [address], [place] [address] Sep, [facility] [place] [address] [id number] [address] [place] [address], [place] [address] Sep, [facility] [place] [address] [id number] [address] [place] [address], [place] [address] Aug, [facility] [address] [id number] [address] [place] [address], [place] [address] Aug, [facility] [place] [address] [id number] [address] [place] [address], [place] [address] Aug, [facility] [place] [address] [id number] [address] [place] [address], [place] [address] Aug, [facility] [address] [id number] [address] [place] [address], [place] [address] Aug, [facility] [address] [id number] [address] [place] [address], [place] [address] Aug, [facility] [address] [id number] [address] [place] [address], [place] [address] Jul, [facility] [address] [id number] [address] [place] [address], [place] [address] Jul, [facility] [address] [id number] [address] [place] [address], [place] [address] Jun, [facility] [address] [id number] [address] [place] [address], [place] [address] Jun, [facility] [address] [id number] [address] [place] [address], [place] [address] Jun, [facility] [address] [id number] [address] [place] [address], [place] [address] Apr, [facility] [address] [id number] [address] [place] [address], [place] [address] Apr, [facility] [address] [id number] [address] [place] [address], [place] [address] Mar, [facility] [address] [id number] [address] [place] [address], [place] [address] Mar, [facility] [address] [id number] [address] [place] [address], [place] [address] Mar, [facility] [address] [id number] [address] [place] [address], [place] [address] Mar, [facility] [address] [id number] [address] [place] [address], [place] [address] Feb, [facility] [address] [id number] [address] [place] [address] Feb, [facility] [address] [id number] [address] [place] [address], [place] [address] Feb, [facility] [address] [id number] [address] [place] [address], [place] [address] January, [facility] [address] [id number] [address] [place] [address], [place] [address] January, [facility] [address] [id number] [address] [place] [id number] January, [facility] [address] [id number] [address] [place] [address], [place] [address] January, [facility] [address] [id number] [address] [place] [address], [place] [address] Dec, [facility] [address] [id number] [address] [place] [address], [place] [address] Dec, [facility] [address] [id number] [address] [place] [address], [place] [address] Nov, [facility] [address] [id number] [address] [place] [address], [place] [address] Nov, [facility] [address] [id number] [address] [place] [address], [place] [address] 16 Oct, 2011 [facility] [address] [id number] [address] [place] [address], [place] [address] Oct, [facility] [address] [id number] [address] [place] [address], [place] [address] Sep, [facility] [address] [id number] [address] [place] [address], [place] [address] Sep, [facility] [address] [id number] [address] [place] [address], [place] [address] Sep, [facility] [place] [address] [id number] [address] [place] [address], [place] [address] Sep, [facility] [address] [id number] [address] [place] [address], [place] [address] Aug, [facility] [address] [id number] [address] [place] [address], [place] [address] Aug, [facility] [address] [id number] [address] [place] [address], [place] [address] Aug, [facility] [address] [id number] [address] [place] [address], [place] [address] Jul, [facility] [address] [id number] [address] [place] [id number] Aug, [facility] [address] [id number] [address] [place] [id number] Aug, [facility] [address] [id number] [address] [place] [address] Aug, [facility] [address] [id number] [address] [place] [id number] Aug, [facility] [address] [id number] [address] [place] [id number] Jul, [facility] [address] [id number] [address] [place] [id number] Jul, [facility] [address] [id number] [address] [place] [address] Jul, [facility] [address] [id number] [address] [place] [address] Jun, [facility] [address] [id number] [address] [place] [id number] Jun, [facility] [address] [id number] [address] [place] [id number] Jun, [facility] [address] [id number] [address] [place] [address] Apr, [facility] [address] [id number] [address] [place] [id number] Mar, IMMUNIZATIONS No Known Immunizations SOCIAL HISTORY [...]
--- OUTSIDE RECORDS SUMMARY | 2020-03-18 14:35 | XMS REPORT ---
Author Author George WAYNE Organization [facility] Address [address] [place] [address] Care Team Providers Care Baggage Porter Name Role Phone REYNA WAYNE Unavailable PROBLEMS Type Condition ICD9-CM Code ZFM88-UV Code Onset Dates Condition S tatus SNOMED Code Problem Hypertension, benign I10 Active 06721745 Problem Other chronic pain G89.29 Active 8 7457805 Problem Lumbago with sciatica, unspecified side M54.40 Active 113833215 Problem Controlled type 2 diabetes m ellitus without complication, without long- term current use of insulin E11.9 Active 427076316 Problem Lumbago with sciatica, right side M54.41 Active 724463070 Problem Adjustment disorder with disturbance of emotion F4 3.29 Active 79250706 Problem MELE (obstructive sleep apnea) G47.33 Active 77550146 Problem Non morbid obesity E66.9 Active 4 17751841 Problem Hammer toe of left foot M20.42 Active 686175296 Problem Mood disorder F39 Active 939597 05 Problem Deformity of left foot M21.962 Active 047280258 Problem Lumbago with sciatica, left side M54.42 Active 323116679 Problem Erectile dysfunction due to diseases classified elsewhere N52.1 Active 913156217 Problem Obstructive sleep apnea syndrome G47.33 Active 65729758 Problem Type 2 diabetes mellitus wit h diabetic neuropathy, without long-term current use of insulin E11.40 Active 08313 006 Problem Essential hypertension I10 Active 72299340 ALLERGIES No Information ENCOUNTERS Encounter Location Date Diagnosis [facility] [address] [facility] [id number] [address] [place] [address] May, [facility] [address] [facility] [id number] [address] [place] [address] Apr, Lumbago with sciatica, unspe cified side M54.40 [facility] [address] [place] [id number] [address] [place] [address] Apr, [place] [address] [address] Apr, [address] [address] Apr, Hammer toe of left foot M20.42 ; Chest p ain R07.9 ; Preoperative examination Z01.818 and Morbid obesity E66.01 [place] [address] [address] Apr, Morbid obesity E66.01 ; Bron chitis J40 and High risk medications (not anticoagulants) long-term use Z79.899 [place] [address] [address] Apr, Lumbago with sciatica, unspe cified side M54.40 [place] [address] [address] Apr, [place] [address] [address] Mar, Lumbar neuritis M54.16 and M orbid obesity E66.01 [place] [address] [address] Mar, [place] [address] [address] Mar, [place] [address] [address] Mar, Lumbago with sciatica, unspe cified side M54.40 [place] [address] [address] Mar, Morbid obesity E66.01 ; Coug marco R05 ; 2+ pitting edema R60.9 and Controlled type 2 diabetes mellitus without complication, without long-term current use of insulin E11.9 [place] [address] [place] [address] Feb, [facility] [address] [id number] [address] [place] [address] Feb, Lumbago with sciatica, unspe cified side M54.40 [facility] [address] [id number] [address] [place] [address] Feb, [facility] [address] [id number] [address] [place] [address] Feb, Controlled type 2 diabetes m ellitus without complication, without long-term current use of insulin E11.9 and Morbid obesity E66.01 [facility] [address] [facility] [id number] [address] [place] [address] January, Deformity of left foot M21.9 62 [facility] [address] [facility] [id number] [address] [place] [address] January, [facility] [address] [facility] [id number] [address] [place] [address] January, Lumbago with sciatica, unspe cified side M54.40 [facility] [address] [facility] [id number] [address] [place] [address] January, [facility] [address] [facility] [id number] [address] [place] [address] January, Lumbago with sciatica, unspe cified side M54.40 [facility] [address] [id number] [address] [place] [address] January, [facility] [address] [id number] [address] [place] [address] January, Acute right-sided thoracic b ack pain M54.6 [facility] [address] [id number] [address] [place] [address] January, Acute right-sided thoracic b ack pain M54.6 [facility] [address] [id number] [address] [place] [address] January, Chest pain, unspecified type R07.9 ; Morbid obesity E66.01 and Scabies B86 [place] [address] [facility] [id number] [address] [place] [address] Dec, Lumbago with sciatica, unspe cified side M54.40 [place] [address] [place] [id number] [address] [place] [address] Dec, Toenail fungus B35.1 [place] [address] [facility] [id number] [address] [place] [address] Dec, Toenail fungus B35.1 [place] [address] [place] [id number] [address] [place] [address] Dec, Acute right-sided thoracic b ack pain M54.6 [place] [id number] [place] [address] Dec, Lumbago with sciatica, unspe cified side M54.40 [place] [address] [place] [id number] [address] [place] [address] Nov, Hammer toe of left foot M20. 42 ; Deformity of left foot M21.962 and Type 2 diabetes mellitus with diabetic neuropathy, without long-term current use of insulin E11.40 [facility] [address] [place] [id number] [address] [place] [address] Nov, Acute right-sided thoracic b ack pain M54.6 ; Morbid obesity E66.01 and Rt flank pain R10.9 [place] [address] [facility] [id number] [address] [place] [address] Nov, Lumbago with sciatica, unspe cified side M54.40 [place] [address] [place] [id number] [address] [place] [address] Oct, Lumbago with sciatica, unspe cified side M54.40 [facility] [address] [place] [id number] [address] [place] [address] Sep, Lumbago with sciatica, unspe cified side M54.40 [facility] [address] [place] [id number] [address] [place] [address] Sep, [facility] [address] [place] [id number] [address] [place] [address] Sep, BMI 40.0-44.9, adult Z68.41 ; Lumbago with sciatica, left side M54.42 ; Lumbago with sciatica, right side M54.41 and Other chronic pain G89.29 [place] [address] [place] [id number] [address] [place] [address] Aug, Lumbago with sciatica, unspe cified side M54.40 [place] [address] [place] [id number] [address] [place] [address] Aug, Type 2 diabetes mellitus wit h diabetic neuropathy, without long- term current use of insulin E11.40 ; Hammer toe of left foot M20.42 ; Hypertension, benign I10 and Frequent headaches R51 [place] [address] [place] [id number] [address] [place] [address] Jul, Lumbago with sciatica, unspe cified side M54.40 [place] [address] [place] [id number] [address] [place] [address] Jul, [place] [address] [place] [id number] [address] [place] [address] Jul, Essential hypertension I10 a nd Controlled type 2 diabetes mellitus without complication, without long-term current use of insulin E11.9 [place] [address] [facility] [id number] [address] [place] [address] Jul, Essential hypertension I10 ; Controlled type 2 diabetes mellitus without complication, without long-term current use of insulin E11.9 and BMI 40.0-44.9, adult Z68.41 [place] [address] [place] [id number] [address] [place] [address] Jul, Dysfunction of left eustachi an tube H69.82 [facility] [address] [facility] [id number] [address] [place] [address] Jul, Lumbago with sciatica, unspe cified side M54.40 [facility] [address] [facility] [id number] [address] [place] [address] [id number] Jun, Dental examination Z01.20 [facility] [address] [facility] [id number] [address] [place] [address] Jun, Lumbago with sciatica, unspe cified side M54.40 and Encounter for immunization Z23 [facility] [address] [facility] [id number] [address] [place] [address] Jun, Dysfunction of left eustachi an tube H69.[id number] [place] [address] [id number] Jun, Dental examination Z01.20 [facility] [address] [facility] [id number] [address] [place] [address] Jun, Other chronic pain G89.29 [facility] [address] [place] [id number] [place] [address] [id number] Jun, Dental examination Z01.20 [facility] [address] [facility] [id number] [address] [place] [address] Jun, [facility] [address] [facility] [id number] [address] [place] [address] Jun, Bronchitis J40 ; Dysfunction of left eustachian tube H69.82 and BMI 45.0-49.9, adult Z68.42 [facility] [address] [facility] [id number] [address] [place] [address] Jun, Lumbago with sciatica, unspe cified side M54.40 [facility] [address] [facility] [id number] [address] [place] [address] May, Type 2 diabetes mellitus wit h diabetic neuropathy, without long- term current use of insulin E11.40 and Hypertension, benign I10 [facility] [address] [place] [id number] [address] [place] [address] May, Lumbago with sciatica, unspe cified side M54.40 [facility] [address] [place] [id number] [address] [place] [address] Apr, [facility] [address] [place] [id number] [address] [place] [address] Apr, Controlled type 2 diabetes m ellitus without complication, without long-term current use of insulin E11.9 ; Insect bite (nonvenomous), right ankle, initial encounter S90.561A ; Local infection of the skin and subcutaneous tissue, unspecified L08.9 ; Acute swimmer''s ear of left side H60.332 and BMI 45.0-49.9, adult Z68.42 [place] [address] [place] [id number] [address] [place] [address] Apr, Lumbago with sciatica, unspe cified side M54.40 [place] [address] [place] [id number] [place] [address] Mar, [place] [address] [place] [id number] [address] [place] [address] Mar, Lumbago with sciatica, unspe cified side M54.40 [place] [address] [place] [id number] [address] [place] [address] Feb, Lumbago with sciatica, unspe cified side M54.40 [place] [address] [place] [id number] [address] [place] [address] Feb, BMI 45.0-49.9, adult Z68.42 and Obstructive sleep apnea syndrome G47.33 [place] [address] [place] [id number] [address] [place] [address] January, Lumbar neuritis M54.16 [place] [address] [place] [id number] [place] [address] January, Lumbago with sciatica, unspe cified side M54.40 [place] [address] [place] [id number] [address] [place] [address] Dec, Controlled type 2 diabetes m maribell without complication, without long-term current use of insulin E11.9 ; Erectile dysfunction due to diseases classified elsewhere N52.1 and Mood disorder F39 [place] [address] [address] Dec, Lumbago with sciatica, unspe cified side M54.40 [place] [address] [address] Dec, Obstructive sleep apnea synd luis G47.33 [place] [address] [address] Nov, Lumbago with sciatica, unspe cified side M54.40 ; Hypertension, benign I10 and Mood disorder F39 [place] [address] [place] [id number] [place] [address] Nov, Other chronic pain G89.29 [place] [address] [address] Nov, Lumbago with sciatica, unspe cified side M54.40 [facility] [address] [place] [address] [id number] Nov, Dental examination Z01.20 [place] [address] [place] [id number] [place] [address] Oct, [place] [address] [place] [id number] [place] [address] Oct, Lumbago with sciatica, unspe cified side M54.40 [place] [address] [place] [id number] [place] [address] Oct, Lumbago with sciatica, unspe cified side M54.40 [facility] [address] [id number] [address] [place] [id number] 14 Oct, 2017 [facility] [address] [id number] [address] [place] [id number] Oct, [facility] [address] [id number] [address] [place] [address] [id number] Oct, 2017 Dental examination Z01.20 [facility] [address] [id number] [address] [place] [address] Oct, [facility] [address] [facility] [id number] [address] [place] [address] Oct, Pain in right knee M25.561 [facility] [address] [facility] [id number] [address] [place] [address] Sep, [facility] [address] [facility] [id number] [address] [place] [address] Sep, Other chronic pain G89.29 [facility] [address] [facility] [id number] [address] [place] [address] Sep, Lumbago with sciatica, unspe cified side M54.40 [facility] [address] [facility] [id number] [address] [place] [address] Sep, [facility] [address] [facility] [id number] [address] [place] [address] Sep, Viral URI J06.9 and BMI 45.0 -49.9, adult Z68.42 [facility] [address] [facility] [id number] [address] [place] [address] Aug, Foreign body hand S60.559A a nd BMI 45.0-49.9, adult Z68.42 [facility] [address] [facility] [id number] [address] [place] [address] Aug, [facility] [address] [facility] [id number] [address] [place] [address] Aug, Lumbago with sciatica, unspe cified side M54.40 [facility] [address] [facility] [id number] [address] [place], [place] [id number] Aug, Vertigo R42 ; Dysfunction of both eustachian tubes H69.83 ; Low back pain M54.5 and Other chronic pain G89.29 [facility] [address] [place] [id number] [address] [place] [address] Aug, Dizziness R42 and Acute bila teral otitis media H66.93 [place] [address] [facility] [id number] [address] [place] [address] Aug, Lumbago with sciatica, unspe cified side M54.40 [facility] [address] [place] [id number] Jul, Dental examination Z01.20 [place] [address] [place] [id number] [address] [place] [address] Jul, [facility] [address] [place] [id number] [address] [place] [address] Jul, [place] [address] [address] Jul, Dysfunction of both eustachi an tubes H69.83 [place] [address] [place] [id number] [address] [place] [address] Jul, Controlled type 2 diabetes m taraitus without complication, without long-term current use of insulin E11.9 [facility] [address] [place] [id number] [address] [place] [address] Jul, Controlled type 2 diabetes m ellitus without complication, without long-term current use of insulin E11.9 [facility] [address] [place] [id number] [address] [place] [id number] 06 Jul, 2017 Dizziness R42 and BMI 40.0-4 4.9, adult Z68.41 [place] [address] [id number] [address] [place] [id number] Jul, Controlled type 2 diabetes m ellitus without complication, without long-term current use of insulin E11.9 [facility] [address] [id number] [address] [place] [address] Jul, Lumbago with sciatica, unspe cified side M54.40 [facility] [address] [id number] [place] [address] [id number] Jul, Dental examination Z01.20 [facility] [address] [id number] [address] [place] [address] Jun, [facility] [address] [id number] [place] [id number] Jun, Dental examination Z01.20 [place] [address] [id number] [address] [place] [address] Jun, Controlled type 2 diabetes m ellitus without complication, without long-term current use of insulin E11.9 [facility] [address] [id number] [address] [place] [address] Jun, Lumbago with sciatica, unspe cified side M54.40 [facility] [address] [id number] [address] [place] [address] [id number] May, Dental examination Z01.20 [facility] [address] [id number] [address] [place] [address] May, Controlled type 2 diabetes m ellitus without complication, without long-term current use of insulin E11.9 [facility] [address] [id number] [address] [place] [address] [id number] May, Dental examination Z01.20 [facility] [address] [id number] [address] [place] [phone] May, Bronchitis J40 ; Dry mouth R 68.2 ; Non morbid obesity E66.9 and Controlled type 2 diabetes mellitus without complication, without long-term current use of insulin E11.9 [facility] [address] [id number] [address] [place] [id number] 16 May, 2017 Encounter for immunization Z 23 [facility] [address] [id number] [address] [place] [phone] 07 May, 2017 Lumbago with sciatica, unspe cified side M54.40 [facility] [address] [id number] [address] [place] [id number] 05 May, 2017 [facility] [address] [id number] [place] [address] [id number] Apr, Dental examination Z01.20 [facility] [address] [id number] [address] [place] [address] Apr, Lumbago with sciatica, unspe cified side M54.40 [facility] [address] [id number] [address] [place] [id number] Mar, Lumbago with sciatica, left side M54.42 [facility] [address] [facility] [id number] [address] [place] [address] Mar, [facility] [address] [facility] [id number] [address] [place] [address] Mar, Lumbar neuritis M54.16 [facility] [address] [id number] [address] [place] [id number] Mar, [facility] [address] [id number] [place] [address] [id number] Mar, Dental examination Z01.20 [facility] [address] [id number] [address] [place] [phone] Mar, MELE (obstructive sleep apnea ) G47.33 ; Neuropathy involving both lower extremities G57.93 and Frequent headaches R51 [facility] [address] [id number] [address] [place] [phone] Mar, Lumbago with sciatica, unspe cified side M54.40 [place] [address] [id number] [address] [place] [phone] Feb, Lumbago with sciatica, unspe cified side M54.40 and Controlled type 2 diabetes mellitus without complication, without long-term current use of insulin E11.9 [place] [address] [id number] [address] [place] [phone] January, Hypertension, benign I10 and Bilateral low back pain with sciatica, sciatica laterality unspecified M54.40 [place] [address] [id number] [address] [place] [phone] January, Hypertension, benign I10 ; L umbago with sciatica, unspecified side M54.40 ; Other chronic pain G89.29 and Controlled type 2 diabetes mellitus without complication, without long-term current use of insulin E11.9 [place] [address] [id number] [address] [place] [phone] January, Lumbar neuritis M54.16 [place] [address] [id number] [address] [place] [id number] January, [facility] [address] [id number] [address] [place] [id number] Dec, Lumbago with sciatica, right side M54.41 and Lumbar neuritis M54.16 [facility] [address] [id number] [address] [place] [id number] Dec, Lumbar neuritis M54.16 [facility] [address] [id number] [address] [place] [id number] Dec, Lumbar neuritis M54.16 [facility] [address] [id number] [address] [place] [id number] Nov, Lumbar neuritis M54.16 ; Lum bago with sciatica, right side M54.41 ; Controlled type 2 diabetes mellitus without complication, without long-term current use of insulin E11.9 and Rash and nonspecific skin eruption R21 [facility] [address] [id number] [address] [place] [id number] Nov, Lumbar neuritis M54.16 and P alexi miroslava L23.7 [facility] [address] [place] [id number] Oct, Lumbar neuritis M54.16 ; Cou ghing R05 and Mood disorder F39 [facility] [address] [place] [id number] Sep, Lumbago with sciatica, right side M54.41 [facility] [address] [id number] Sep, Adjustment disorder with dis turbance of emotion F43.29 and Pain management R52 [facility] [address] [id number] Sep, [facility] [address] [id number] Sep, [facility] [address] [id number] Sep, Controlled type 2 diabetes evens reyna without complication, without long-term current use of insulin E11.9 and Lumbago with sciatica, unspecified side M54.40 [facility] [address] [id number] Aug, Controlled type 2 diabetes evens reyna without complication, without long-term current use of insulin E11.9 ; Pain in right knee M25.561 ; Pain in left knee M25.562 ; Other chronic pain G89.29 ; Lumbago with sciatica, right side M54.41 ; Neck pain M54.2 and Encounter for immunization Z23 [facility] [address] [place] [id number] Jul, [facility] [address] [id number] Jul, Controlled type 2 diabetes evens reyna without complication, without long-term current use of insulin E11.9 [facility] [address] [id number] [address] [place] [id number] 17 Jul, 2016 [facility] [address] [id number] [address] [place] [id number] 15 Jul, 2016 [facility] [address] [id number] [address] [place] [id number] Jul, Lumbago with sciatica, left side M54.42 ; Lumbago with sciatica, right side M54.41 and Other chronic pain G89.29 [facility] [address] [id number] [address] [place] [id number] Jul, [facility] [address] [id number] [address] [place] [id number] Jul, [facility] [address] [id number] [address] [place] [id number] Jun, [facility] [address] [id number] [address] [place] [address] Jun, Lumbago with sciatica, right side M54.41 and Other chronic pain G89.29 [facility] [address] [id number] [address] [place] [address] Jun, Cervicalgia M54.2 ; Lumbago with sciatica, unspecified side M54.40 and Other chronic pain G89.29 [facility] [address] [id number] [address] [place] [address] 15 May, 2016 Pain in right knee M25.561 ; Pain in left knee M25.562 and Other chronic pain G89.29 [facility] [address] [id number] [address] [place] [address] 14 May, 2016 [facility] [address] [facility] [id number] [address] [place] [address] 05 Apr, 2016 Other chronic pain G89.29 an d Pain in right knee M25.561 [facility] [address] [id number] [address] [place] [address] Apr, Pain in right knee M25.561 [facility] [address] [id number] [address] [place] [address] Mar, [facility] [address] [id number] [address] [place] [address] Mar, Mood disorder F39 and Contro lled type 2 diabetes mellitus without complication, without long-term current use of insulin E11.9 [facility] [address] [id number] [address] [place] [address] Mar, Pain in right knee M25.561 ; Pain in left knee M25.562 ; Other chronic pain G89.29 ; Obstructive sleep apnea syndrome G47.33 ; Mood disorder F39 and Controlled type 2 diabetes mellitus without complication, without long- term current use of insulin E11.9 [facility] [address] [id number] [address] [place] [address] Mar, [facility] [address] [id number] [address] [place] [id number] Feb, Dental examination Z01.20 [facility] [address] [id number] [address] [place] [address] Feb, [facility] [address] [id number] [address] [place] [address] Feb, Osteoarthritis of right knee , unspecified osteoarthritis type M17.9 [facility] [address] [id number] [address] [place] [id number] January, [facility] [address] [id number] [address] [place] [address] [id number] January, Dental examination Z01.20 [facility] [address] [id number] [address] [place] [address] January, [facility] [address] [id number] [address] [place] [address] [id number] January, Dental examination Z01.20 an d Caries K02.9 [facility] [address] [id number] [address] [place] [address] Dec, Encounter for other preproce dural examination Z01.818 [facility] [address] [id number] [address] [place] [address] Dec, [facility] [address] [id number] [address] [place] [address] Dec, Knee pain M25.569 [facility] [address] [id number] [address] [place] [address] Dec, Pain in right knee M25.561 [facility] [address] [id number] [address] [place] [id number] Dec, [facility] [address] [id number] [address] [place] [address] Dec, [facility] [address] [id number] [address] [place] [address] Dec, Encounter for immunization Z 23 [facility] [address] [id number] [address] [place] [id number] Dec, [facility] [address] [id number] [address] [place] [id number] Dec, [facility] [address] [id number] [address] [place] [address] Nov, [facility] [address] [id number] [address] [place] [address] Nov, Hypertension, benign I10 ; C ervicalgia M54.2 ; Pain in right knee M25.561 and Pain in left knee M25.562 [facility] [address] [id number] [address] [place] [address] Oct, [facility] [address] [id number] [address] [place] [address] Oct, [facility] [address] [facility] [id number] [address] [place] [address] Oct, Osteoarthritis of both knees M17.0 [facility] [address] [facility] [id number] [address] [place] [id number] Oct, [facility] [place] [address] [facility] [id number] [address] [place] [address] Oct, Low back pain M54.5 [place] [place] [address] [place] [id number] [address] [place] [address] Oct, Low back pain M54.5 ; Sciati ca, unspecified side M54.30 ; Pain in right knee M25.561 ; Pain in left knee M25.562 ; Pain in right shoulder M25.511 and Pain in left shoulder M25.512 [place] [place] [address] [place] [id number] [address] [place] [address] Oct, [facility] [place] [address] [place] [id number] [address] [place] [address] Sep, Pain in right hip M25.551 [place] [place] [address] [place] [id number] [address] [place] [address] Sep, Acute upper respiratory infe ction, unspecified J06.9 [facility] [place] [address] [place] [id number] [address] [place] [address] Aug, Acute upper respiratory infe ction, unspecified J06.9 and Other viral agents as the cause of diseases classified elsewhere B97.89 [place] [place] [address] [place] [id number] [address] [place] [address] Jul, Arthritis M19.90 [place] [place] [address] [place] [id number] [address] [place] [address] Jun, Arthritis M19.90 ; Pain in r ight hip M25.551 ; Pain in left hip M25.552 ; Bilateral low back pain with sciatica, sciatica laterality unspecified M54.40 ; Neck pain M54.2 ; Upper back pain M54.9 and Knee pain, unspecified laterality M25.569 [facility] [address] [id number] [address] [place] [id number] 10 May, 2015 Osteoarthritis of both knees 715.96 [facility] [address] [id number] [address] [place] [address] May, Rash 782.1 [facility] [address] [id number] [address] [place] [id number] Apr, Lumbar strain 847.2 [facility] [address] [id number] [address] [place] [id number] Apr, Rash 782.1 [facility] [address] [id number] [address] [place] [address] Mar, Rash 782.1 [facility] [address] [facility] [id number] [address] [place] [id number] Feb, Rash 782.1 ; Hemorrhoids 455 .6 and Constipation 564.00 [facility] [address] [id number] [address] [place] [id number] Feb, Osteoarthritis of both knees 715.96 [facility] [address] [id number] [address] [place] [id number] January, [facility] [address] [facility] [id number] [address] [place] [id number] Dec, [facility] [address] [id number] [address] [place] [address] Dec, [facility] [address] [id number] [address] [place] [id number] Dec, [facility] [address] [id number] [address] [place] [address] Nov, [facility] [address] [id number] [address] [place] [id number] Nov, [facility] [address] [id number] [address] [place] [id number] Nov, [facility] [address] [id number] [address] [place] [address], [place] [address] Nov, [facility] [address] [id number] [address] [place] [address], [place] [address] Nov, [facility] [address] [id number] [address] [place] [address], [place] [address] Nov, [facility] [address] [id number] [address] [place] [address], [place] [address] Oct, [facility] [address] [id number] [address] [place] [address], [place] [address] Oct, [facility] [address] [id number] [address] [place] [address], [place] [address] Oct, [facility] [address] [id number] [address] [place] [address], [place] [address] Oct, [facility] [address] [id number] [address] [place] [address], [place] [address] Oct, [facility] [address] [id number] [address] [place] [address], [place] [address] Oct, [facility] [address] [id number] [address] [place] [address], [place] [address] Oct, [facility] [address] [id number] [address] [place] [address], [place] [address] Oct, 2014 [facility] [address] [id number] [address] [place] [address], [place] [address] Oct, [facility] [address] [id number] [address] [place] [address], [place] [address] Oct, [facility] [address] [id number] [address] [place] [address], [place] [address] Oct, [facility] [address] [id number] [address] [place] [address], [place] [address] Sep, [facility] [address] [id number] [address] [place] [address], [place] [address] 14 Sep, 2014 [facility] [address] [id number] [address] [place] [address], [place] [address] Sep, [facility] [address] [id number] [address] [place] [address], [place] [address] Sep, [facility] [address] [id number] [address] [place] [address], [place] [address] Sep, [facility] [address] [id number] [address] [place] [address], [place] [address] Sep, [facility] [address] [id number] [address] [place] [address], [place] [address] Aug, [facility] [address] [id number] [address] [place] [address], [place] [address] Aug, [facility] [address] [id number] [address] [place] [address], [place] [address] Aug, [facility] [address] [id number] [address] [place] [address], [place] [address] Aug, [facility] [address] [id number] [address] [place] [address], [place] [address] Aug, [facility] [address] [id number] [address] [place] [address], [place] [address] Aug, [facility] [address] [id number] [address] [place] [address], [place] [address] Aug, [facility] [address] [id number] [address] [place] [address], [place] [address] Aug, [facility] [address] [id number] [address] [place] [address], [place] [address] Aug, [facility] [address] [id number] [address] [place] [address], [place] [address] Aug, [facility] [address] [id number] [address] [place] [address], [place] [address] Jul, [facility] [address] [id number] [address] [place] [address], [place] [address] Jul, [facility] [address] [id number] [address] [place] [address], [place] [address] Jul, [facility] [address] [id number] [address] [place] [address], [place] [address] Jul, [facility] [address] [id number] [address] [place] [address], [place] [address] Jun, [facility] [address] [id number] [address] [place] [address], [place] [address] Jun, [facility] [address] [id number] [address] [place] [address], [place] [address] Jun, [facility] [address] [id number] [address] [place] [address], [place] [address] Jun, [facility] [address] [id number] [address] [place] [address], [place] [address] Jun, [facility] [address] [id number] [address] [place] [address], [place] [address] Jun, [facility] [address] [id number] [address] [place] [address], [place] [address] Jun, [facility] [address] [id number] [address] [place] [address] Jun, [facility] [address] [id number] [address] [place] [address] May, [facility] [address] [id number] [address] [place] [address], [place] [address] May, [facility] [address] [id number] [address] [place] [address], [place] [address] May, [facility] [address] [id number] [address] [place] [address], [place] [address] May, [facility] [address] [id number] [facility] [place] [address] 15 May, 2013 [facility] [address] [id number] [address] [place] [address], [place] [address] May, [facility] [address] [id number] [address] [place] [address], [place] [address] May, [facility] [address] [id number] [address] [place] [address], [place] [address] May, [facility] [address] [id number] [address] [place] [address], [place] [address] Apr, [facility] [address] [id number] [address] [place] [address], [place] [address] Apr, [facility] [address] [id number] [address] [place] [address], [place] [address] Apr, [facility] [address] [id number] [address] [place] [address], [place] [address] Apr, [facility] [address] [id number] [address] [place] [address], [place] [address] Apr, [facility] [address] [id number] [address] [place] [address], [place] [address] Apr, [facility] [address] [id number] [address] [place] [address], [place] [address] Apr, [facility] [address] [id number] [address] [place] [address], [place] [address] Apr, [facility] [address] [id number] [address] [place] [address], [place] [address] Apr, [facility] [address] [id number] [address] [place] [address], [place] [address] Apr, [facility] [address] [id number] [address] [place] [address], [place] [address] Apr, [facility] [address] [id number] [address] [place] [address], [place] [address] Apr, [facility] [address] [id number] [address] [place] [address], [place] [address] Mar, [facility] [address] [id number] [address] [place] [address], [place] [address] Mar, [facility] [address] [id number] [address] [place] [address], [place] [address] Mar, [facility] [address] [id number] [address] [place] [address], [place] [address] Mar, [facility] [address] [id number] [address] [place] [address], [place] [address] Mar, [facility] [address] [id number] [address] [place] [address], [place] [address] Mar, [facility] [address] [id number] [address] [place] [address], [place] [address] Feb, [facility] [address] [id number] [address] [place] [address], [place] [address] Feb, [facility] [address] [id number] [address] [place] [address], [place] [address] Feb, [facility] [address] [id number] [address] [place] [address], [place] [address] Feb, [facility] [address] [id number] [address] [place] [address], [place] [address] Feb, [facility] [address] [id number] [address] [place] [address], [place] [address] Feb, [facility] [address] [id number] [address] [place] [address], [place] [address] Feb, [facility] [address] [id number] [address] [place] [address], [place] [address] Feb, [facility] [address] [id number] [address] [place] [address], [place] [address] 05 Feb, 2014 [facility] [address] [id number] [address] [place] [address], [place] [address] Feb, [facility] [address] [id number] [facility] [place] [address] Feb, [facility] [address] [id number] [address] [place] [address], [place] [address] Feb, [facility] [address] [id number] [address] [place] [address], [place] [address] Feb, [facility] [address] [id number] [address] [place] [address], [place] [address] Feb, [facility] [address] [id number] [address] [place] [address], [place] [address] January, [facility] [address] [id number] [address] [place] [address], [place] [address] January, [facility] [address] [id number] [address] [place] [address], [place] [address] January, [facility] [address] [id number] [address] [place] [address], [place] [address] January, [facility] [address] [id number] [address] [place] [address], [place] [address] January, [facility] [address] [id number] [address] [place] [address], [place] [address] January, [facility] [address] [id number] [address] [place] [address], [place] [address] Dec, [facility] [address] [id number] [address] [place] [address], [place] [address] Dec, [facility] [address] [id number] [address] [place] [address], [place] [address] Dec, [facility] [address] [id number] [address] [place] [address], [place] [address] Dec, [facility] [address] [id number] [address] [place] [address], [place] [address] Dec, [facility] [address] [id number] [facility] [place] [address] Dec, [facility] [address] [id number] [address] [place] [address], [place] [address] Dec, [facility] [address] [id number] [address] [place] [address], [place] [address] Dec, [facility] [address] [id number] [address] [place] [address], [place] [address] Nov, [facility] [address] [id number] [address] [place] [address], [place] [address] Nov, [facility] [address] [id number] [address] [place] [address], [place] [address] Nov, [facility] [address] [id number] [address] [place] [address], [place] [address] Nov, [facility] [address] [id number] [address] [place] [address], [place] [address] Nov, [facility] [address] [id number] [address] [place] [address], [place] [address] Nov, [facility] [address] [id number] [address] [place] [address], [place] [address] Nov, [facility] [address] [id number] [address] [place] [address], [place] [address] Nov, [facility] [address] [id number] [address] [place] [address], [place] [address] Oct, [facility] [address] [id number] [address] [place] [address], [place] [address] Oct, [facility] [address] [id number] [address] [place] [address], [place] [address] Oct, [facility] [address] [id number] [address] [place] [address], [place] [address] Oct, [facility] [address] [id number] [address] [place] [address], [place] [address] Oct, [facility] [address] [id number] [address] [place] [address], [place] [address] Oct, [facility] [address] [id number] [address] [place] [address], [place] [address] Oct, [facility] [address] [id number] [address] [place] [address], [place] [address] Oct, [facility] [address] [id number] [address] [place] [address], [place] [address] Oct, [facility] [address] [id number] [address] [place] [address], [place] [address] Oct, [facility] [address] [id number] [address] [place] [address], [place] [address] Sep, [facility] [address] [id number] [address] [place] [address], [place] [address] Sep, [facility] [address] [id number] [address] [place] [address], [place] [address] Sep, [facility] [address] [id number] [address] [place] [address], [place] [address] Sep, [facility] [address] [id number] [address] [place] [address], [place] [address] Sep, [facility] [address] [id number] [address] [place] [address], [place] [address] Sep, [facility] [address] [id number] [address] [place] [address], [place] [address] Aug, [facility] [address] [id number] [address] [place] [address], [place] [address] Aug, [facility] [address] [id number] [address] [place] [address], [place] [address] Aug, [facility] [address] [id number] [address] [place] [address], [place] [address] Aug, [facility] [address] [id number] [address] [place] [address], [place] [address] Aug, [facility] [address] [id number] [address] [place] [address], [place] [address] Aug, [facility] [address] [id number] [address] [place] [address], [place] [address] Aug, [facility] [address] [id number] [address] [place] [address], [place] [address] Aug, [facility] [address] [id number] [address] [place] [address], [place] [address] Jul, [facility] [address] [id number] [address] [place] [address], [place] [address] Jul, [facility] [address] [id number] [address] [place] [address], [place] [address] Jul, [facility] [address] [id number] [address] [place] [address], [place] [address] Jul, [facility] [address] [id number] [address] [place] [address], [place] [address] Jul, [facility] [address] [id number] [address] [place] [address], [place] [address] Jul, [facility] [address] [id number] [address] [place] [address], [place] [address] Jun, [facility] [address] [id number] [address] [place] [address], [place] [address] Jun, [facility] [address] [id number] [address] [place] [address], [place] [address] Jun, [facility] [address] [id number] [address] [place] [address], [place] [address] 24 May, 2013 [facility] [address] [id number] [address] [place] [address], [place] [address] 11 May, 2013 [facility] [address] [id number] [address] [place] [address], [place] [address] May, [facility] [address] [id number] [address] [place] [address], [place] [address] Apr, [facility] [address] [id number] [address] [place] [address], [place] [address] Apr, [facility] [address] [id number] [address] [place] [address], [place] [address] Apr, [facility] [address] [id number] [address] [place] [address], [place] [address] Apr, [facility] [address] [id number] [address] [place] [address], [place] [address] Mar, [facility] [address] [id number] [address] [place] [address], [place] [address] Mar, [facility] [address] [id number] [address] [place] [address], [place] [address] Mar, [facility] [address] [id number] [address] [place] [address], [place] [address] Mar, [facility] [address] [id number] [address] [place] [address], [place] [address] Feb, [facility] [address] [id number] [address] [place] [address], [place] [address] Feb, [facility] [address] [id number] [address] [place] [address], [place] [address] Feb, [facility] [address] [id number] [address] [place] [address], [place] [address] Feb, [facility] [address] [id number] [address] [place] [address], [place] [address] January, [facility] [address] [id number] [address] [place] [address], [place] [address] January, [facility] [address] [id number] [address] [place] [address], [place] [address] January, [facility] [address] [id number] [address] [place] [address], [place] [address] Nov, [facility] [place] [address] [id number] [address] [place] [address], [place] [address] Nov, [facility] [address] [id number] [address] [place] [address], [place] [address] Oct, [facility] [place] [address] [id number] [address] [place] [address], [place] [address] Oct, [facility] [address] [id number] [address] [place] [address], [place] [address] Oct, [facility] [address] [id number] [address] [place] [address], [place] [address] Oct, [facility] [place] [address] [id number] [address] [place] [address], [place] [address] Sep, [facility] [place] [address] [id number] [address] [place] [address], [place] [address] Sep, [facility] [place] [address] [id number] [address] [place] [address], [place] [address] Sep, [facility] [place] [address] [id number] [address] [place] [address], [place] [address] Aug, [facility] [address] [id number] [address] [place] [address], [place] [address] Aug, [facility] [place] [address] [id number] [address] [place] [address], [place] [address] Aug, [facility] [place] [address] [id number] [address] [place] [address], [place] [address] Aug, [facility] [address] [id number] [address] [place] [address], [place] [address] Aug, [facility] [address] [id number] [address] [place] [address], [place] [address] Aug, [facility] [address] [id number] [address] [place] [address], [place] [address] Jul, [facility] [address] [id number] [address] [place] [address], [place] [address] Jul, [facility] [address] [id number] [address] [place] [address], [place] [address] Jun, [facility] [address] [id number] [address] [place] [address], [place] [address] Jun, [facility] [address] [id number] [address] [place] [address], [place] [address] Jun, [facility] [address] [id number] [address] [place] [address], [place] [address] Apr, [facility] [address] [id number] [address] [place] [address], [place] [address] Apr, [facility] [address] [id number] [address] [place] [address], [place] [address] Mar, [facility] [address] [id number] [address] [place] [address], [place] [address] Mar, [facility] [address] [id number] [address] [place] [address], [place] [address] Mar, [facility] [address] [id number] [address] [place] [address], [place] [address] Mar, [facility] [address] [id number] [address] [place] [address], [place] [address] Feb, [facility] [address] [id number] [address] [place] [address] Feb, [facility] [address] [id number] [address] [place] [address], [place] [address] Feb, [facility] [address] [id number] [address] [place] [address], [place] [address] January, [facility] [address] [id number] [address] [place] [address], [place] [address] January, [facility] [address] [id number] [address] [place] [address] January, [facility] [address] [id number] [address] [place] [address], [place] [address] January, [facility] [address] [id number] [address] [place] [address], [place] [address] Dec, [facility] [address] [id number] [address] [place] [address], [place] [address] Dec, [facility] [address] [id number] [address] [place] [address], [place] [address] Nov, [facility] [address] [id number] [address] [place] [address], [place] [address] Nov, [facility] [address] [id number] [address] [place] [address], [place] [address] 16 Oct, 2011 [facility] [address] [id number] [address] [place] [address], [place] [address] Oct, [facility] [address] [id number] [address] [place] [address], [place] [address] Sep, [facility] [address] [id number] [address] [place] [address], [place] [address] Sep, [facility] [address] [id number] [address] [place] [address], [place] [address] Sep, [facility] [place] [address] [id number] [address] [place] [address], [place] [address] Sep, [facility] [address] [id number] [address] [place] [address], [place] [address] Aug, [facility] [address] [id number] [address] [place] [address], [place] [address] Aug, [facility] [address] [id number] [address] [place] [address], [place] [address] Aug, [facility] [address] [id number] [address] [place] [address], [place] [address] Jul, [facility] [address] [id number] [address] [place] [address] Aug, [facility] [address] [id number] [address] [place] [address] Aug, [facility] [address] [id number] [address] [place] [address] Aug, [facility] [address] [id number] [address] [place] [address] Aug, [facility] [address] [id number] [address] [place] [address] Jul, [facility] [address] [id number] [address] [place] [address] Jul, [facility] [address] [id number] [address] [place] [address] Jul, [facility] [address] [id number] [address] [place] [address] Jun, [facility] [address] [id number] [address] [place] [address] Jun, [facility] [address] [id number] [address] [place] [address] Jun, [facility] [address] [id number] [address] [place] [address] Apr, [facility] [address] [id number] [address] [place] [address] Mar, IMMUNIZATIONS No Known Immunizations SOCIAL HISTORY [...]
--- OUTSIDE RECORDS SUMMARY | 2020-03-18 14:36 | XMS REPORT ---
Author Author George WAYNE Organization [facility] Address [address] [place] [address] Care Team Providers Care Dental Technician Apprentice Name Role Phone REYNA WAYNE Unavailable PROBLEMS Type Condition ICD9-CM Code GUN13-PO Code Onset Dates Condition S tatus SNOMED Code Problem Hypertension, benign I10 Active 66778081 Problem Other chronic pain G89.29 Active 8 2543292 Problem Lumbago with sciatica, unspecified side M54.40 Active 152209326 Problem Controlled type 2 diabetes m ellitus without complication, without long- term current use of insulin E11.9 Active 507680500 Problem Lumbago with sciatica, right side M54.41 Active 731021611 Problem Adjustment disorder with disturbance of emotion F4 3.29 Active 79344452 Problem MELE (obstructive sleep apnea) G47.33 Active 38720658 Problem Non morbid obesity E66.9 Active 4 81896597 Problem Hammer toe of left foot M20.42 Active 866398617 Problem Mood disorder F39 Active 731155 05 Problem Deformity of left foot M21.962 Active 962351416 Problem Lumbago with sciatica, left side M54.42 Active 664473123 Problem Erectile dysfunction due to diseases classified elsewhere N52.1 Active 661970375 Problem Obstructive sleep apnea syndrome G47.33 Active 99239954 Problem Type 2 diabetes mellitus wit h diabetic neuropathy, without long-term current use of insulin E11.40 Active 49469 006 Problem Essential hypertension I10 Active 62286740 ALLERGIES No Information ENCOUNTERS Encounter Location Date Diagnosis [facility] [address] [facility] [id number] [address] [place] [phone] May, [facility] [address] [facility] [id number] [address] [place] [phone] Apr, [facility] [address] [facility] [id number] [address] [place] [phone] Apr, [address] [address] Apr, Hammer toe of left foot M20.42 ; Chest p ain R07.9 ; Preoperative examination Z01.818 and Morbid obesity E66.01 [place] [address] [facility] [id number] [address] [place] [phone] Apr, Morbid obesity E66.01 ; Bron chitis J40 and High risk medications (not anticoagulants) long-term use Z79.899 [place] [address] [id number] [address] [place] [id number] Apr, Lumbago with sciatica, unspe cified side M54.40 [place] [address] [facility] [id number] [address] [place] [phone] Apr, [place] [address] [facility] [id number] [address] [place] [phone] Mar, Lumbar neuritis M54.16 and M orbid obesity E66.01 [place] [address] [facility] [id number] [address] [place] [id number] Mar, [place] [address] [facility] [id number] [address] [place] [phone] Mar, [place] [address] [facility] [id number] [address] [place] [phone] Mar, Lumbago with sciatica, unspe cified side M54.40 [place] [address] [facility] [id number] [address] [place] [id number] Mar, Morbid obesity E66.01 ; Coug marco R05 ; 2+ pitting edema R60.9 and Controlled type 2 diabetes mellitus without complication, without long-term current use of insulin E11.9 [place] [address] [facility] [id number] [address] [place] [id number] Feb, [place] [address] [place] [id number] [address] [place] [phone] Feb, Lumbago with sciatica, unspe cified side M54.40 [facility] [address] [id number] [address] [place] [id number] Feb, [facility] [address] [id number] [address] [place] [id number] Feb, Controlled type 2 diabetes m ellitus without complication, without long-term current use of insulin E11.9 and Morbid obesity E66.01 [facility] [address] [id number] [address] [place] [id number] January, Deformity of left foot M21.9 62 [facility] [address] [id number] [address] [place] [id number] January, [facility] [address] [id number] [address] [place] [phone] January, Lumbago with sciatica, unspe cified side M54.40 [facility] [address] [id number] [address] [place] [phone] January, [facility] [address] [id number] [address] [place] [phone] January, Lumbago with sciatica, unspe cified side M54.40 [facility] [address] [id number] [address] [place] [id number] January, [facility] [address] [id number] [address] [place] [id number] January, Acute right-sided thoracic b ack pain M54.6 [facility] [address] [id number] [address] [place] [id number] January, Acute right-sided thoracic b ack pain M54.6 [facility] [address] [facility] [id number] [address] [place] [phone] January, Chest pain, unspecified type R07.9 ; Morbid obesity E66.01 and Scabies B86 [facility] [address] [place] [id number] Dec, Lumbago with sciatica, unspe cified side M54.40 [facility] [address] [place] [id number] [address] [place] [phone] Dec, Toenail fungus B35.1 [facility] [address] [place] [id number] Dec, Toenail fungus B35.1 [facility] [address] [place] [id number] [address] [place] [phone] Dec, Acute right-sided thoracic b ack pain M54.6 [place] [address] [address] Dec, Lumbago with sciatica, unspe cified side M54.40 [place] [address] [place] [id number] [address] [place] [address] Nov, Hammer toe of left foot M20. 42 ; Deformity of left foot M21.962 and Type 2 diabetes mellitus with diabetic neuropathy, without long-term current use of insulin E11.40 [facility] [address] [place] [id number] [address] [place] [id number] Nov, Acute right-sided thoracic b ack pain M54.6 ; Morbid obesity E66.01 and Rt flank pain R10.9 [facility] [address] [place] [id number] [address] [place] [id number] Nov, Lumbago with sciatica, unspe cified side M54.40 [facility] [address] [place] [id number] [address] [place] [id number] Oct, Lumbago with sciatica, unspe cified side M54.40 [facility] [address] [place] [id number] [address] [place] [phone] Sep, Lumbago with sciatica, unspe cified side M54.40 [facility] [address] [address] Sep, [place] [address] [address] Sep, BMI 40.0-44.9, adult Z68.41 ; Lumbago with sciatica, left side M54.42 ; Lumbago with sciatica, right side M54.41 and Other chronic pain G89.29 [place] [address] [address] Aug, Lumbago with sciatica, unspe cified side M54.40 [place] [address] [address] Aug, Type 2 diabetes mellitus wit h diabetic neuropathy, without long- term current use of insulin E11.40 ; Hammer toe of left foot M20.42 ; Hypertension, benign I10 and Frequent headaches R51 [place] [address] [address] Jul, Lumbago with sciatica, unspe cified side M54.40 [place] [address] [address] Jul, [place] [address] [address] Jul, Essential hypertension I10 a nd Controlled type 2 diabetes mellitus without complication, without long-term current use of insulin E11.9 [place] [address] [address] Jul, Essential hypertension I10 ; Controlled type 2 diabetes mellitus without complication, without long-term current use of insulin E11.9 and BMI 40.0-44.9, adult Z68.41 [place] [address] [id number] Jul, Dysfunction of left eustachi an tube H69.82 [place] [address] [id number] Jul, Lumbago with sciatica, unspe cified side M54.40 [facility] [address] [id number] [address] [place] [id number] Jun, Dental examination Z01.20 [facility] [address] [facility] [id number] [address] [place] [phone] Jun, Lumbago with sciatica, unspe cified side M54.40 and Encounter for immunization Z23 [facility] [address] [facility] [id number] [address] [place] [phone] Jun, Dysfunction of left eustachi an tube H69.[id number] [place] [id number] Jun, Dental examination Z01.20 [facility] [address] [place] [id number] [address] [place] [id number] Jun, Other chronic pain G89.29 [facility] [address] [facility] [id number] [address] [place] [address] [id number] Jun, Dental examination Z01.20 [facility] [address] [place] [id number] [address] [place] [id number] Jun, [facility] [address] [place] [id number] [place] [phone] Jun, Bronchitis J40 ; Dysfunction of left eustachian tube H69.82 and BMI 45.0-49.9, adult Z68.42 [facility] [address] [place] [id number] [address] [place] [id number] Jun, Lumbago with sciatica, unspe cified side M54.40 [facility] [address] [place] [id number] [address] [place] [id number] May, Type 2 diabetes mellitus wit h diabetic neuropathy, without long- term current use of insulin E11.40 and Hypertension, benign I10 [facility] [address] [place] [id number] [address] [place] [id number] May, Lumbago with sciatica, unspe cified side M54.40 [facility] [address] [facility] [id number] [address] [place] [id number] Apr, [facility] [address] [place] [id number] [address] [place] [id number] Apr, Controlled type 2 diabetes m ellitus without complication, without long-term current use of insulin E11.9 ; Insect bite (nonvenomous), right ankle, initial encounter S90.561A ; Local infection of the skin and subcutaneous tissue, unspecified L08.9 ; Acute swimmer''s ear of left side H60.332 and BMI 45.0-49.9, adult Z68.42 [facility] [address] [place] [id number] [address] [place] [id number] Apr, Lumbago with sciatica, unspe cified side M54.40 [facility] [address] [place] [id number] [address] [place] [id number] Mar, [facility] [address] [place] [id number] [address] [place] [phone] Mar, Lumbago with sciatica, unspe cified side M54.40 [facility] [address] [place] [phone] Feb, Lumbago with sciatica, unspe cified side M54.40 [facility] [address] [place] [id number] Feb, BMI 45.0-49.9, adult Z68.42 and Obstructive sleep apnea syndrome G47.33 [place] [address] [place] [phone] January, Lumbar neuritis M54.16 [place] [address] [place] [id number] [address] [place] [id number] January, Lumbago with sciatica, unspe cified side M54.40 [facility] [address] [place] [id number] [address] [place] [phone] Dec, Controlled type 2 diabetes m ellitus without complication, without long-term current use of insulin E11.9 ; Erectile dysfunction due to diseases classified elsewhere N52.1 and Mood disorder F39 [facility] [address] [place] [id number] [address] [place] [id number] Dec, Lumbago with sciatica, unspe cified side M54.40 [facility] [address] [place] [id number] [address] [place] [id number] Dec, Obstructive sleep apnea synd luis G47.33 [place] [address] [place] [id number] [place] [address] Nov, Lumbago with sciatica, unspe cified side M54.40 ; Hypertension, benign I10 and Mood disorder F39 [place] [address] [place] [phone] Nov, Other chronic pain G89.29 [place] [address] [place] [id number] [address] [place] [phone] Nov, Lumbago with sciatica, unspe cified side M54.40 [facility] [address] [place] [id number] [address] [place] [id number] Nov, Dental examination Z01.20 [facility] [address] [place] [id number] Oct, [facility] [address] [place] [id number] [address] [place] [id number] Oct, Lumbago with sciatica, unspe cified side M54.40 [facility] [address] [place] [id number] [address] [place] [id number] Oct, Lumbago with sciatica, unspe cified side M54.40 [facility] [address] [place] [id number] [address] [place] [phone] Oct, [place] [address] [facility] [id number] [address] [place] [id number] 14 Oct, 2017 [facility] [address] [id number] [address] [place] [address] [id number] 13 Oct, 2017 Dental examination Z01.20 [facility] [address] [facility] [id number] [address] [place] [phone] 08 Oct, 2017 [facility] [address] [facility] [id number] [address] [place] [id number] Oct, Pain in right knee M25.561 [facility] [address] [facility] [id number] [address] [place] [phone] Sep, [facility] [address] [place] [id number] [address] [place] [phone] Sep, Other chronic pain G89.29 [place] [address] [place] [id number] [address] [place] [phone] Sep, Lumbago with sciatica, unspe cified side M54.40 [facility] [address] [place] [id number] [address] [place] [id number] Sep, [facility] [address] [place] [id number] [address] [place] [id number] Sep, Viral URI J06.9 and BMI 45.0 -49.9, adult Z68.42 [facility] [address] [place] [address] Aug, Foreign body hand S60.559A a nd BMI 45.0-49.9, adult Z68.42 [facility] [address] [place] [id number] [address] [place] [phone] Aug, [facility] [address] [place] [id number] [address] [place] [id number] Aug, Lumbago with sciatica, unspe cified side M54.40 [facility] [address] [place] [address] [address] 14 Aug, 2017 Vertigo R42 ; Dysfunction of both eustachian tubes H69.83 ; Low back pain M54.5 and Other chronic pain G89.29 [facility] [address] [address] Aug, Dizziness R42 and Acute bila teral otitis media H66.93 [facility] [address] [address] Aug, Lumbago with sciatica, unspe cified side M54.40 [facility] [id number] [place] [phone] Jul, Dental examination Z01.20 [place] [address] [address] Jul, [place] [address] [address] Jul, [place] [address] [address] Jul, Dysfunction of both eustachi an tubes H69.83 [place] [address] [address] Jul, Controlled type 2 diabetes m ellitus without complication, without long-term current use of insulin E11.9 [place] [address] [address] Jul, Controlled type 2 diabetes m ellitus without complication, without long-term current use of insulin E11.9 [facility] [address] [address] Jul, Dizziness R42 and BMI 40.0-4 4.9, adult Z68.41 [facility] [address] [address] Jul, Controlled type 2 diabetes m ellitus without complication, without long-term current use of insulin E11.9 [facility] [address] [id number] [address] [place] [id number] Jul, Lumbago with sciatica, unspe cified side M54.40 [facility] [address] [id number] [address] [place] [address] [id number] Jul, Dental examination Z01.20 [facility] [address] [id number] [address] [place] [phone] Jun, [facility] [id number] [place] [address] [id number] Jun, Dental examination Z01.20 [facility] [address] [facility] [id number] [place] [phone] Jun, Controlled type 2 diabetes m ellitus without complication, without long-term current use of insulin E11.9 [facility] [address] [facility] [id number] [address] [place] [phone] Jun, Lumbago with sciatica, unspe cified side M54.40 [facility] [address] [id number] [address] [place] [address] [id number] May, Dental examination Z01.20 [facility] [address] [facility] [id number] [address] [place] [id number] May, Controlled type 2 diabetes m ellitus without complication, without long-term current use of insulin E11.9 [facility] [id number] [place] [address] [id number] May, Dental examination Z01.20 [facility] [address] [id number] [address] [place] [phone] 18 May, 2017 Bronchitis J40 ; Dry mouth R 68.2 ; Non morbid obesity E66.9 and Controlled type 2 diabetes mellitus without complication, without long-term current use of insulin E11.9 [facility] [address] [place] [id number] [address] [place] [id number] 16 May, 2017 Encounter for immunization Z 23 [facility] [address] [place] [id number] [address] [place] [id number] May, Lumbago with sciatica, unspe cified side M54.40 [facility] [address] [id number] [address] [place] [phone] May, [facility] [address] [id number] [address] [place] [address] [id number] Apr, Dental examination Z01.20 [facility] [address] [id number] [address] [place] [phone] Apr, Lumbago with sciatica, unspe cified side M54.40 [facility] [address] [id number] [address] [place] [id number] Mar, Lumbago with sciatica, left side M54.42 [facility] [address] [id number] [address] [place] [phone] Mar, [facility] [address] [id number] [address] [place] [phone] Mar, Lumbar neuritis M54.16 [facility] [address] [id number] [address] [place] [phone] Mar, [facility] [address] [id number] [address] [place] [id number] Mar, Dental examination Z01.20 [facility] [address] [id number] [address] [place] [phone] Mar, MELE (obstructive sleep apnea ) G47.33 ; Neuropathy involving both lower extremities G57.93 and Frequent headaches R51 [facility] [address] [id number] [address] [place] [phone] Mar, Lumbago with sciatica, unspe cified side M54.40 [facility] [address] [id number] [address] [place] [phone] Feb, Lumbago with sciatica, unspe cified side M54.40 and Controlled type 2 diabetes mellitus without complication, without long-term current use of insulin E11.9 [place] [address] [id number] [address] [place] [phone] January, Hypertension, benign I10 and Bilateral low back pain with sciatica, sciatica laterality unspecified M54.40 [place] [address] [id number] [address] [place] [id number] January, Hypertension, benign I10 ; L umbago with sciatica, unspecified side M54.40 ; Other chronic pain G89.29 and Controlled type 2 diabetes mellitus without complication, without long-term current use of insulin E11.9 [place] [address] [id number] [address] [place] [phone] January, Lumbar neuritis M54.16 [place] [address] [id number] [address] [place] [phone] January, [place] [address] [id number] [address] [place] [phone] Dec, Lumbago with sciatica, right side M54.41 and Lumbar neuritis M54.16 [place] [address] [id number] [address] [place] [id number] Dec, Lumbar neuritis M54.16 [place] [address] [id number] [address] [place] [id number] Dec, Lumbar neuritis M54.16 [place] [address] [id number] [address] [place] [phone] Nov, Lumbar neuritis M54.16 ; Lum bago with sciatica, right side M54.41 ; Controlled type 2 diabetes mellitus without complication, without long-term current use of insulin E11.9 and Rash and nonspecific skin eruption R21 [place] [address] [facility] [id number] [address] [place] [phone] 09 Nov, 2016 Lumbar neuritis M54.16 and P oison miroslava L23.7 [place] [address] [id number] [address] [place] [phone] Oct, Lumbar neuritis M54.16 ; Cou ghing R05 and Mood disorder F39 [place] [id number] [facility] [id number] [address] [place] [id number] Sep, Lumbago with sciatica, right side M54.41 [place] [id number] [facility] [id number] [address] [place] [phone] Sep, Adjustment disorder with dis turbance of emotion F43.29 and Pain management R52 [place] [address] [address] [facility] [id number] [address] [place] [phone] Sep, [place] [address] [address] [facility] [id number] [address] [place] [phone] Sep, [place] [address] [address] [place] [id number] [address] [place] [phone] Sep, Controlled type 2 diabetes evens reyna without complication, without long-term current use of insulin E11.9 and Lumbago with sciatica, unspecified side M54.40 [place] [address] [address] [facility] [id number] [address] [place] [phone] Aug, Controlled type 2 diabetes evens reyna without complication, without long-term current use of insulin E11.9 ; Pain in right knee M25.561 ; Pain in left knee M25.562 ; Other chronic pain G89.29 ; Lumbago with sciatica, right side M54.41 ; Neck pain M54.2 and Encounter for immunization Z23 [place] [address] [address] [facility] [id number] [address] [place] [phone] Jul, [place] [address] [address] [facility] [id number] [address] [place] [phone] Jul, Controlled type 2 diabetes evens reyna without complication, without long-term current use of insulin E11.9 [place] [address] [address] [facility] [id number] [address] [place] [address] Jul, [place] [address] [address] [facility] [id number] [address] [place] [id number] Jul, [facility] [address] [id number] [address] [place] [id number] Jul, Lumbago with sciatica, left side M54.42 ; Lumbago with sciatica, right side M54.41 and Other chronic pain G89.29 [facility] [address] [id number] [address] [place] [address] Jul, [facility] [address] [id number] [address] [place] [id number] Jul, [facility] [address] [id number] [address] [place] [phone] Jun, [facility] [address] [facility] [id number] [address] [place] [id number] Jun, Lumbago with sciatica, right side M54.41 and Other chronic pain G89.29 [facility] [address] [facility] [id number] [address] [place] [id number] Jun, Cervicalgia M54.2 ; Lumbago with sciatica, unspecified side M54.40 and Other chronic pain G89.29 [facility] [address] [facility] [id number] [address] [place] [id number] 15 May, 2016 Pain in right knee M25.561 ; Pain in left knee M25.562 and Other chronic pain G89.29 [facility] [address] [id number] [address] [place] [address] May, [facility] [address] [id number] [address] [place] [phone] Apr, Other chronic pain G89.29 an d Pain in right knee M25.561 [facility] [address] [facility] [id number] [address] [place] [phone] Apr, Pain in right knee M25.561 [facility] [address] [facility] [id number] [address] [place] [address] Mar, [facility] [address] [id number] [address] [place] [phone] Mar, Mood disorder F39 and Contro lled type 2 diabetes mellitus without complication, without long-term current use of insulin E11.9 [facility] [address] [id number] [address] [place] [address] Mar, Pain in right knee M25.561 ; Pain in left knee M25.562 ; Other chronic pain G89.29 ; Obstructive sleep apnea syndrome G47.33 ; Mood disorder F39 and Controlled type 2 diabetes mellitus without complication, without long- term current use of insulin E11.9 [facility] [address] [id number] [address] [place] [phone] Mar, [facility] [address] [id number] [address] [place] [id number] Feb, Dental examination Z01.20 [facility] [address] [id number] [address] [place] [id number] Feb, [facility] [address] [id number] [address] [place] [phone] Feb, Osteoarthritis of right knee , unspecified osteoarthritis type M17.9 [facility] [address] [id number] [address] [place] [id number] January, [facility] [address] [id number] [address] [place] [id number] January, Dental examination Z01.20 [facility] [address] [id number] [address] [place] [id number] January, [facility] [address] [id number] [address] [place] [address] [id number] January, Dental examination Z01.20 an d Caries K02.9 [facility] [address] [id number] [address] [place] [id number] Dec, Encounter for other preproce dural examination Z01.818 [facility] [address] [id number] [address] [place] [address] Dec, [facility] [address] [id number] [address] [place] [address] Dec, Knee pain M25.569 [facility] [address] [id number] [address] [place] [phone] 15 Dec, 2015 Pain in right knee M25.561 [facility] [address] [id number] [address] [place] [phone] Dec, [facility] [address] [id number] [address] [place] [phone] Dec, [facility] [address] [id number] [address] [place] [phone] Dec, Encounter for immunization Z 23 [facility] [address] [id number] [address] [place] [phone] Dec, [facility] [address] [facility] [id number] [address] [place] [phone] Dec, [facility] [address] [id number] [address] [place] [phone] Nov, [facility] [address] [facility] [id number] [address] [place] [phone] Nov, Hypertension, benign I10 ; C ervicalgia M54.2 ; Pain in right knee M25.561 and Pain in left knee M25.562 [facility] [address] [id number] [address] [place] [id number] 29 Oct, 2015 [facility] [address] [id number] [address] [place] [phone] Oct, [facility] [address] [facility] [id number] [address] [place] [address] Oct, Osteoarthritis of both knees M17.0 [facility] [address] [facility] [id number] [address] [place] [id number] Oct, [place] [address] [id number] [place] [phone] Oct, Low back pain M54.5 [place] [address] [address] [facility] [id number] [address] [place] [phone] Oct, Low back pain M54.5 ; Sciati ca, unspecified side M54.30 ; Pain in right knee M25.561 ; Pain in left knee M25.562 ; Pain in right shoulder M25.511 and Pain in left shoulder M25.512 [place] [address] [id number] [place] [phone] Oct, [place] [address] [address] [place] [id number] [place] [address] Sep, Pain in right hip M25.551 [place] [address] [id number] Sep, Acute upper respiratory infe ction, unspecified J06.9 [place] [address] [address] [place] [id number] [address] [place] [phone] Aug, Acute upper respiratory infe ction, unspecified J06.9 and Other viral agents as the cause of diseases classified elsewhere B97.89 [place] [address] [address] [place] [id number] [address] [place] [phone] Jul, Arthritis M19.90 [place] [address] [address] [place] [id number] [address] [place] [phone] Jun, Arthritis M19.90 ; Pain in r ight hip M25.551 ; Pain in left hip M25.552 ; Bilateral low back pain with sciatica, sciatica laterality unspecified M54.40 ; Neck pain M54.2 ; Upper back pain M54.9 and Knee pain, unspecified laterality M25.569 [place] [address] [address] [place] [id number] [address] [place] [id number] May, Osteoarthritis of both knees 715.96 [place] [address] [id number] [address] [place] [address] May, Rash 782.1 [facility] [address] [id number] [address] [place] [id number] Apr, Lumbar strain 847.2 [facility] [address] [id number] [address] [place] [phone] Apr, Rash 782.1 [facility] [address] [id number] [address] [place] [phone] Mar, Rash 782.1 [facility] [address] [id number] [address] [place] [phone] Feb, Rash 782.1 ; Hemorrhoids 455 .6 and Constipation 564.00 [facility] [address] [id number] [address] [place] [phone] Feb, Osteoarthritis of both knees 715.96 [facility] [address] [id number] [address] [place] [phone] January, [facility] [address] [id number] [address] [place] [phone] Dec, [facility] [address] [id number] [address] [place] [phone] Dec, [facility] [address] [id number] [address] [place] [phone] Dec, [facility] [address] [id number] [address] [place] [phone] Nov, [facility] [address] [id number] [address] [place] [phone] Nov, [facility] [address] [id number] [address] [place] [phone] Nov, [facility] [address] [id number] [address] [place] [phone] Nov, [facility] [address] [id number] [address] [place] [address], [place] [address] Nov, [facility] [address] [id number] [address] [place] [address], [place] [address] Nov, [facility] [address] [id number] [address] [place] [address], [place] [address] Oct, [facility] [address] [id number] [address] [place] [address], [place] [address] Oct, [facility] [address] [id number] [address] [place] [address], [place] [address] Oct, [facility] [address] [id number] [address] [place] [address], [place] [address] Oct, [facility] [address] [id number] [address] [place] [address], [place] [address] Oct, [facility] [address] [id number] [address] [place] [address], [place] [address] Oct, [facility] [address] [id number] [address] [place] [address], [place] [address] Oct, [facility] [address] [id number] [address] [place] [address], [place] [address] Oct, [facility] [address] [id number] [address] [place] [address], [place] [address] Oct, [facility] [address] [id number] [address] [place] [address], [place] [address] Oct, [facility] [address] [id number] [address] [place] [address], [place] [address] Oct, [facility] [address] [id number] [address] [place] [address], [place] [address] Sep, [facility] [address] [id number] [address] [place] [address], [place] [address] Sep, [facility] [address] [id number] [address] [place] [address], [place] [address] Sep, [facility] [address] [id number] [address] [place] [address], [place] [address] Sep, [facility] [address] [id number] [address] [place] [address], [place] [address] Sep, [facility] [address] [id number] [address] [place] [address], [place] [address] Sep, [facility] [address] [id number] [address] [place] [address], [place] [address] Aug, [facility] [address] [id number] [address] [place] [address], [place] [address] Aug, [facility] [address] [id number] [address] [place] [address], [place] [address] Aug, [facility] [address] [id number] [address] [place] [address], [place] [address] Aug, [facility] [address] [id number] [address] [place] [address], [place] [address] Aug, [facility] [address] [id number] [address] [place] [address], [place] [address] Aug, [facility] [address] [id number] [address] [place] [address], [place] [address] Aug, [facility] [address] [id number] [address] [place] [address], [place] [address] Aug, [facility] [address] [id number] [address] [place] [address], [place] [address] Aug, [facility] [address] [id number] [address] [place] [address], [place] [address] Aug, [facility] [address] [id number] [address] [place] [address], [place] [address] Jul, [facility] [address] [id number] [address] [place] [address], [place] [address] Jul, [facility] [address] [id number] [address] [place] [address], [place] [address] Jul, [facility] [address] [id number] [address] [place] [address], [place] [address] Jul, [facility] [address] [id number] [address] [place] [address], [place] [address] Jun, [facility] [address] [id number] [address] [place] [address], [place] [address] Jun, [facility] [address] [id number] [address] [place] [address], [place] [address] Jun, [facility] [address] [id number] [address] [place] [address], [place] [address] Jun, [facility] [address] [id number] [address] [place] [address], [place] [address] Jun, [facility] [address] [id number] [address] [place] [address], [place] [address] Jun, [facility] [address] [id number] [address] [place] [address], [place] [address] Jun, [facility] [address] [id number] [address] [place] [address], [place] [address] Jun, [facility] [address] [id number] [address] [place] [address], [place] [address] 24 May, 2014 [facility] [address] [id number] [address] [place] [address], [place] [address] 24 May, 2014 [facility] [address] [id number] [address] [place] [address], [place] [address] 19 May, 2014 [facility] [address] [id number] [address] [place] [address], [place] [address] 19 May, 2014 [facility] [address] [id number] [address] [place] [address], [place] [address] 15 May, 2014 [facility] [address] [id number] [address] [place] [address], [place] [address] May, [facility] [address] [id number] [address] [place] [address], [place] [address] May, [facility] [address] [id number] [address] [place] [address], [place] [address] May, [facility] [address] [id number] [address] [place] [address], [place] [address] Apr, [facility] [address] [id number] [address] [place] [address], [place] [address] Apr, [facility] [address] [id number] [address] [place] [address], [place] [address] Apr, [facility] [address] [id number] [address] [place] [address], [place] [address] Apr, [facility] [address] [id number] [address] [place] [address], [place] [address] Apr, [facility] [address] [id number] [address] [place] [address], [place] [address] Apr, [facility] [address] [id number] [address] [place] [address], [place] [address] Apr, [facility] [address] [id number] [address] [place] [address], [place] [address] Apr, [facility] [address] [id number] [address] [place] [address], [place] [address] Apr, [facility] [address] [id number] [address] [place] [address], [place] [address] Apr, [facility] [address] [id number] [address] [place] [address], [place] [address] Apr, [facility] [address] [id number] [address] [place] [address], [place] [address] Apr, [facility] [address] [id number] [address] [place] [address], [place] [address] Mar, [facility] [address] [id number] [address] [place] [address] Mar, [facility] [address] [id number] [facility] [address] Mar, [facility] [address] [id number] [address] [place] [address], [place] [address] Mar, [facility] [address] [id number] [address] [place] [address], [place] [address] Mar, [facility] [address] [id number] [address] [place] [address], [place] [address] Mar, [facility] [address] [id number] [address] [place] [address], [place] [address] Feb, [facility] [address] [id number] [address] [place] [address], [place] [address] Feb, [facility] [address] [id number] [address] [place] [address], [place] [address] Feb, [facility] [address] [id number] [address] [place] [address], [place] [address] Feb, [facility] [address] [id number] [address] [place] [address], [place] [address] Feb, [facility] [address] [id number] [address] [place] [address], [place] [address] Feb, [facility] [address] [id number] [address] [place] [address], [place] [address] Feb, [facility] [address] [id number] [address] [place] [address], [place] [address] Feb, [facility] [address] [id number] [address] [place] [address], [place] [address] Feb, [facility] [address] [id number] [address] [place] [address], [place] [address] 05 Feb, 2014 [facility] [address] [id number] [address] [place] [address], [place] [address] Feb, [facility] [address] [id number] [facility] [address] Feb, [facility] [address] [id number] [facility] [place] [address] Feb, [facility] [address] [id number] [facility] [place] [address] Feb, [facility] [address] [id number] [address] [place] [address], [place] [address] January, [facility] [address] [id number] [address] [place] [address], [place] [address] January, [facility] [address] [id number] [address] [place] [address], [place] [address] January, [facility] [address] [id number] [address] [place] [address], [place] [address] January, [facility] [address] [id number] [address] [place] [address], [place] [address] January, [facility] [address] [id number] [address] [place] [address], [place] [address] January, [facility] [address] [id number] [address] [place] [address], [place] [address] Dec, [facility] [address] [id number] [address] [place] [address], [place] [address] Dec, [facility] [address] [id number] [address] [place] [address], [place] [address] Dec, [facility] [address] [id number] [address] [place] [address], [place] [address] Dec, [facility] [address] [id number] [address] [place] [address], [place] [address] Dec, [facility] [address] [id number] [address] [place] [address], [place] [address] Dec, [facility] [address] [id number] [address] [place] [address], [place] [address] Dec, [facility] [address] [id number] [facility] [address] Dec, [facility] [address] [id number] [address] [place] [address], [place] [address] Nov, [facility] [address] [id number] [address] [place] [address], [place] [address] Nov, [facility] [address] [id number] [address] [place] [address], [place] [address] Nov, [facility] [address] [id number] [address] [place] [address], [place] [address] Nov, [facility] [address] [id number] [address] [place] [address], [place] [address] Nov, [facility] [address] [id number] [address] [place] [address], [place] [address] Nov, [facility] [address] [id number] [address] [place] [address], [place] [address] Nov, [facility] [address] [id number] [address] [place] [address], [place] [address] Nov, [facility] [address] [id number] [address] [place] [address], [place] [address] Oct, [facility] [address] [id number] [address] [place] [address], [place] [address] Oct, [facility] [address] [id number] [address] [place] [address], [place] [address] Oct, [facility] [address] [id number] [address] [place] [address], [place] [address] Oct, [facility] [address] [id number] [address] [place] [address], [place] [address] Oct, [facility] [address] [id number] [address] [place] [address], [place] [address] Oct, [facility] [address] [id number] [address] [place] [address], [place] [address] 12 Oct, 2013 [facility] [address] [id number] [address] [place] [address], [place] [address] Oct, [facility] [address] [id number] [address] [place] [address], [place] [address] Oct, [facility] [address] [id number] [address] [place] [address], [place] [address] Oct, [facility] [address] [id number] [address] [place] [address], [place] [address] Sep, [facility] [address] [id number] [address] [place] [address], [place] [address] Sep, [facility] [address] [id number] [address] [place] [address], [place] [address] Sep, [facility] [address] [id number] [address] [place] [address], [place] [address] Sep, [facility] [address] [id number] [address] [place] [address], [place] [address] Sep, [facility] [address] [id number] [address] [place] [address], [place] [address] Sep, [facility] [address] [id number] [address] [place] [address], [place] [address] Aug, [facility] [address] [id number] [address] [place] [address], [place] [address] Aug, [facility] [address] [id number] [address] [place] [address], [place] [address] Aug, [facility] [address] [id number] [address] [place] [address], [place] [address] Aug, [facility] [address] [id number] [address] [place] [address], [place] [address] Aug, [facility] [address] [id number] [address] [place] [address], [place] [address] Aug, [facility] [address] [id number] [address] [place] [address], [place] [address] Aug, [facility] [address] [id number] [address] [place] [address], [place] [address] Aug, [facility] [address] [id number] [address] [place] [address], [place] [address] Jul, [facility] [address] [id number] [address] [place] [address], [place] [address] Jul, [facility] [address] [id number] [address] [place] [address], [place] [address] Jul, [facility] [address] [id number] [address] [place] [address] Jul, [facility] [address] [id number] [address] [place] [address], [place] [address] Jul, [facility] [address] [id number] [address] [place] [address], [place] [address] Jul, [facility] [address] [id number] [address] [place] [address], [place] [address] Jun, [facility] [address] [id number] [address] [place] [address] Jun, [facility] [address] [id number] [address] [place] [address] [id number] Jun, [facility] [address] [id number] [address] [place] [id number] 24 May, 2013 [facility] [address] [id number] [address] [place] [address], [place] [address] May, [facility] [address] [id number] [address] [place] [id number] 05 May, 2013 [facility] [address] [id number] [address] [place] [address], [place] [address] Apr, [facility] [address] [id number] [address] [place] [address], [place] [address] Apr, [facility] [address] [id number] [address] [place] [address], [place] [address] Apr, [facility] [address] [id number] [address] [place] [address], [place] [address] Apr, [facility] [address] [id number] [address] [place] [address], [place] [address] Mar, [facility] [address] [id number] [address] [place] [address], [place] [address] Mar, [facility] [address] [id number] [address] [place] [address], [place] [address] Mar, [facility] [address] [id number] [address] [place] [address], [place] [address] Mar, [facility] [address] [id number] [address] [place] [address], [place] [address] Feb, [facility] [address] [id number] [address] [place] [address], [place] [address] Feb, [facility] [address] [id number] [address] [place] [address], [place] [address] Feb, [facility] [address] [id number] [address] [place] [address], [place] [address] Feb, [facility] [address] [id number] [address] [place] [address], [place] [address] January, [facility] [address] [id number] [address] [place] [address], [place] [address] January, [facility] [address] [id number] [address] [place] [address], [place] [address] January, [facility] [address] [id number] [address] [place] [address], [place] [address] Nov, [facility] [address] [id number] [address] [place] [address], [place] [address] Nov, [facility] [address] [id number] [address] [place] [address], [place] [address] Oct, [facility] [address] [id number] [address] [place] [address], [place] [address] Oct, [facility] [address] [id number] [address] [place] [address], [place] [address] Oct, [facility] [address] [id number] [address] [place] [address], [place] [address] Oct, [facility] [address] [id number] [address] [place] [address], [place] [address] Sep, [facility] [address] [id number] [address] [place] [address], [place] [address] Sep, [facility] [address] [id number] [address] [place] [address], [place] [address] Sep, [facility] [address] [id number] [address] [place] [address], [place] [address] Aug, [facility] [address] [id number] [address] [place] [address], [place] [address] Aug, [facility] [address] [id number] [address] [place] [address], [place] [address] Aug, [facility] [address] [id number] [address] [place] [address], [place] [address] Aug, [facility] [address] [id number] [address] [place] [address], [place] [address] Aug, [facility] [address] [id number] [address] [place] [address], [place] [address] Aug, [facility] [address] [id number] [address] [place] [address], [place] [address] Jul, [facility] [address] [id number] [address] [place] [address], [place] [address] Jul, [facility] [address] [id number] [address] [place] [address], [place] [address] Jun, [facility] [address] [id number] [address] [place] [address], [place] [address] Jun, [facility] [address] [id number] [address] [place] [address], [place] [address] Jun, [facility] [address] [id number] [address] [place] [address], [place] [address] Apr, [facility] [address] [id number] [address] [place] [address], [place] [address] Apr, [facility] [address] [id number] [address] [place] [address], [place] [address] Mar, [facility] [address] [id number] [address] [place] [address], [place] [address] Mar, [facility] [address] [id number] [address] [place] [address], [place] [address] Mar, [facility] [address] [id number] [address] [place] [address], [place] [address] Mar, [facility] [address] [id number] [address] [place] [address], [place] [address] Feb, [facility] [address] [id number] [address] [place] [address], [place] [address] Feb, [facility] [address] [id number] [address] [place] [address], [place] [address] Feb, [facility] [address] [id number] [address] [place] [address], [place] [address] January, [facility] [address] [id number] [address] [place] [address], [place] [address] January, [facility] [address] [id number] [address] [place] [address], [place] [address] January, [facility] [address] [id number] [address] [place] [address], [place] [address] January, [facility] [address] [id number] [address] [place] [address], [place] [address] Dec, [facility] [address] [id number] [address] [place] [address], [place] [address] Dec, [facility] [address] [id number] [address] [place] [address], [place] [address] Nov, [facility] [address] [id number] [address] [place] [address], [place] [address] Nov, [facility] [address] [id number] [address] [place] [address], [place] [address] Oct, [facility] [address] [id number] [address] [place] [address], [place] [address] Oct, [facility] [address] [id number] [address] [place] [address], [place] [address] Sep, [facility] [address] [id number] [address] [place] [address], [place] [address] Sep, [facility] [address] [id number] [address] [place] [address], [place] [address] Sep, [facility] [address] [id number] [address] [place] [address], [place] [address] Sep, [facility] [address] [id number] [address] [place] [address], [place] [address] Aug, [facility] [address] [id number] [address] [place] [address], [place] [address] Aug, [facility] [address] [id number] [address] [place] [address], [place] [address] Aug, [facility] [address] [id number] [address] [place] [address], [place] [address] Jul, [facility] [address] [id number] [address] [place] [address], [place] [address] Aug, [facility] [address] [id number] [address] [place] [address] Aug, [facility] [address] [id number] [address] [place] [address] Aug, [facility] [address] [id number] [address] [place] [address] Aug, [facility] [address] [id number] [address] [place] [address] Jul, [facility] [address] [id number] [address] [place] [address] Jul, [facility] [address] [id number] [address] [place] [address] Jul, [facility] [address] [id number] [address] [place] [id number] Jun, [facility] [address] [id number] [address] [place] [address] Jun, [facility] [address] [id number] [address] [place] [address] Jun, [facility] [address] [id number] [address] [place] [id number] Apr, [facility] [address] [id number] [address] [place] [id number] Mar, IMMUNIZATIONS No Known Immunizations SOCIAL HISTORY [...]
--- OUTSIDE RECORDS SUMMARY | 2020-03-18 14:36 | XMS REPORT ---
Author Author George WAYNE Organization [facility] Address [address] [place] [address] Care Team Providers Care Underliner Name Role Phone REYNA WAYNE Unavailable PROBLEMS Type Condition ICD9-CM Code [id number] Code Onset Dates Condition S tatus SNOMED Code Problem Hypertension, benign I10 Active 36890871 Problem Other chronic pain G89.29 Active 8 3746100 Problem Lumbago with sciatica, unspecified side M54.40 Active 302358257 Problem Controlled type 2 diabetes m ellitus without complication, without long- term current use of insulin E11.9 Active 260369057 Problem Lumbago with sciatica, right side M54.41 Active 051813673 Problem Adjustment disorder with disturbance of emotion F4 3.29 Active 61984030 Problem MELE (obstructive sleep apnea) G47.33 Active 56139202 Problem Non morbid obesity E66.9 Active 4 96286102 Problem Hammer toe of left foot M20.42 Active 211811330 Problem Mood disorder F39 Active 226440 05 Problem Deformity of left foot M21.962 Active 893723937 Problem Lumbago with sciatica, left side M54.42 Active 541566095 Problem Erectile dysfunction due to diseases classified elsewhere N52.1 Active 316722924 Problem Obstructive sleep apnea syndrome G47.33 Active 87169434 Problem Type 2 diabetes mellitus wit h diabetic neuropathy, without long-term current use of insulin E11.40 Active 16624 006 Problem Essential hypertension I10 Active [id number] ALLERGIES No Information ENCOUNTERS Encounter Location Date Diagnosis [facility] [address] [facility] [id number] [address] [place] [address] May, [facility] [address] [facility] [id number] [address] [place] [address] Apr, [facility] [address] [facility] [id number] [address] [place] [address] Apr, Morbid obesity E66.01 ; Bron chitis J40 and High risk medications (not anticoagulants) long-term use Z79.899 [facility] [address] [place] [id number] [address] [place] [address] Apr, Lumbago with sciatica, unspe cified side M54.40 [facility] [address] [place] [id number] [address] [place] [address] Apr, [facility] [address] [place] [id number] [address] [place] [address] Mar, Lumbar neuritis M54.16 and M orbid obesity E66.01 [facility] [address] [place] [id number] [address] [place] [address] Mar, [facility] [address] [place] [id number] [address] [place] [address] Mar, [facility] [address] [place] [id number] [address] [place] [address] Mar, Lumbago with sciatica, unspe cified side M54.40 [facility] [address] [place] [id number] [address] [place] [address] Mar, Morbid obesity E66.01 ; Gabe lara R05 ; 2+ pitting edema R60.9 and Controlled type 2 diabetes mellitus without complication, without long-term current use of insulin E11.9 [facility] [address] [facility] [id number] [address] [place] [address] Feb, [facility] [address] [facility] [id number] [address] [place] [address] Feb, Lumbago with sciatica, unspe cified side M54.40 [facility] [address] [facility] [id number] [address] [place] [address] Feb, [facility] [address] [facility] [id number] [address] [place] [address] Feb, Controlled type 2 diabetes m ellitus without complication, without long-term current use of insulin E11.9 [facility] [address] [id number] [address] [place] [address] January, Deformity of left foot M21.9 62 [facility] [address] [id number] [address] [place] [address] January, [facility] [address] [id number] [address] [place] [address] January, Lumbago with sciatica, unspe cified side M54.40 [facility] [address] [id number] [address] [place] [address] January, [facility] [address] [id number] [address] [place] [address] January, Lumbago with sciatica, unspe cified side M54.40 [place] [address] [id number] [address] [place] [address] January, [facility] [address] [id number] [address] [place] [id number] January, Acute right-sided thoracic b ack pain M54.6 [place] [address] [id number] [address] [place] [address] January, Acute right-sided thoracic b ack pain M54.6 [place] [address] [id number] [address] [place] [address] January, Chest pain, unspecified type R07.9 ; Morbid obesity E66.01 and Scabies B86 [facility] [address] [id number] [address] [place] [address] Dec, Lumbago with sciatica, unspe cified side M54.40 [facility] [address] [id number] [address] [place] [address] Dec, Toenail fungus B35.1 [facility] [address] [facility] [id number] [address] [place] [address] Dec, Toenail fungus B35.1 [facility] [address] [address] Dec, Acute right-sided thoracic b ack pain M54.6 [place] [address] [place] [id number] [address] [place] [address] Dec, Lumbago with sciatica, unspe cified side M54.40 [facility] [address] [place] [id number] [address] [place] [address] Nov, Hammer toe of left foot M20. 42 ; Deformity of left foot M21.962 and Type 2 diabetes mellitus with diabetic neuropathy, without long-term current use of insulin E11.40 [facility] [address] [place] [id number] [address] [place] [address] Nov, Acute right-sided thoracic b ack pain M54.6 ; Morbid obesity E66.01 and Rt flank pain R10.9 [place] [address] [place] [id number] [address] [place] [address] Nov, Lumbago with sciatica, unspe cified side M54.40 [place] [address] [place] [id number] [address] [place] [address] Oct, Lumbago with sciatica, unspe cified side M54.40 [place] [address] [place] [id number] [address] [place] [address] Sep, Lumbago with sciatica, unspe cified side M54.40 [place] [address] [place] [id number] [address] [place] [address] Sep, [place] [address] [address] Sep, BMI 40.0-44.9, adult Z68.41 ; Lumbago with sciatica, left side M54.42 ; Lumbago with sciatica, right side M54.41 and Other chronic pain G89.29 [place] [address] [facility] [id number] [address] [place] [address] Aug, Lumbago with sciatica, unspe cified side M54.40 [facility] [address] [place] [id number] [address] [place] [address] Aug, Type 2 diabetes mellitus wit h diabetic neuropathy, without long- term current use of insulin E11.40 ; Hammer toe of left foot M20.42 ; Hypertension, benign I10 and Frequent headaches R51 [place] [address] [facility] [id number] [address] [place] [address] Jul, Lumbago with sciatica, unspe cified side M54.40 [place] [address] [place] [id number] [address] [place] [address] Jul, [place] [address] [place] [id number] [place] [address] Jul, Essential hypertension I10 a nd Controlled type 2 diabetes mellitus without complication, without long-term current use of insulin E11.9 [place] [address] [place] [id number] [address] [place] [address] Jul, Essential hypertension I10 ; Controlled type 2 diabetes mellitus without complication, without long-term current use of insulin E11.9 and BMI 40.0-44.9, adult Z68.41 [place] [address] [place] [id number] [address] [place] [address] Jul, Dysfunction of left eustachi an tube H69.82 [place] [address] [facility] [id number] [address] [place] [address] Jul, Lumbago with sciatica, unspe cified side M54.40 [facility] [address] [place] [id number] [address] [place] [address] [id number] Jun, Dental examination Z01.20 [facility] [address] [place] [id number] [address] [place] [address] Jun, Lumbago with sciatica, unspe cified side M54.40 and Encounter for immunization Z23 [facility] [address] [facility] [id number] [address] [place] [address] Jun, Dysfunction of left eustachi an tube H69.82 [facility] [id number] [id number] Jun, Dental examination Z01.20 [facility] [address] [facility] [id number] [address] [place] [address] Jun, Other chronic pain G89.29 [facility] [address] [id number] [address] [place] [address] [id number] Jun, Dental examination Z01.20 [facility] [address] [facility] [id number] [address] [place] [address] Jun, [facility] [address] [facility] [id number] [address] [place] [address] Jun, Bronchitis J40 ; Dysfunction of left eustachian tube H69.82 and BMI 45.0-49.9, adult Z68.42 [facility] [address] [facility] [id number] [address] [place] [address] Jun, Lumbago with sciatica, unspe cified side M54.40 [facility] [address] [facility] [id number] [address] [place] [address] May, Type 2 diabetes mellitus wit h diabetic neuropathy, without long- term current use of insulin E11.40 and Hypertension, benign I10 [facility] [address] [id number] [address] [place] [address] May, Lumbago with sciatica, unspe cified side M54.40 [facility] [address] [facility] [id number] [address] [place] [address] Apr, [facility] [address] [facility] [id number] [address] [place] [address] Apr, Controlled type 2 diabetes m ellitus without complication, without long-term current use of insulin E11.9 ; Insect bite (nonvenomous), right ankle, initial encounter S90.561A ; Local infection of the skin and subcutaneous tissue, unspecified L08.9 ; Acute swimmer''s ear of left side H60.332 and BMI 45.0-49.9, adult Z68.42 [place] [address] [id number] [address] [place] [address] Apr, Lumbago with sciatica, unspe cified side M54.40 [place] [address] [id number] [address] [place] [address] Mar, [place] [address] [place] [id number] [address] [place] [address] Mar, Lumbago with sciatica, unspe cified side M54.40 [place] [address] [facility] [id number] [address] [place] [address] Feb, Lumbago with sciatica, unspe cified side M54.40 [place] [address] [id number] [address] [place] [address] Feb, BMI 45.0-49.9, adult Z68.42 and Obstructive sleep apnea syndrome G47.33 [place] [address] [facility] [id number] [address] [place] [address] January, Lumbar neuritis M54.16 [place] [address] [facility] [id number] [address] [place] [address] January, Lumbago with sciatica, unspe cified side M54.40 [place] [address] [id number] [address] [place] [address] Dec, Controlled type 2 diabetes m taraitus without complication, without long-term current use of insulin E11.9 ; Erectile dysfunction due to diseases classified elsewhere N52.1 and Mood disorder F39 [place] [address] [facility] [id number] [address] [place] [address] Dec, Lumbago with sciatica, unspe cified side M54.40 [facility] [address] [id number] [address] [place] [address] Dec, Obstructive sleep apnea synd luis G47.33 [facility] [address] [id number] [address] [place] [address] Nov, Lumbago with sciatica, unspe cified side M54.40 ; Hypertension, benign I10 and Mood disorder F39 [facility] [address] [id number] [address] [place] [address] Nov, Other chronic pain G89.29 [facility] [address] [id number] [address] [place] [address] Nov, Lumbago with sciatica, unspe cified side M54.40 [facility] [address] [place] [id number] [place] [address] [id number] Nov, Dental examination Z01.20 [facility] [address] [id number] [address] [place] [address] Oct, [facility] [address] [id number] [address] [place] [address] Oct, Lumbago with sciatica, unspe cified side M54.40 [facility] [address] [facility] [id number] [address] [place] [address] Oct, Lumbago with sciatica, unspe cified side M54.40 [facility] [address] [facility] [id number] [address] [place] [address] Oct, [facility] [address] [id number] [address] [place] [address] Oct, [facility] [address] [facility] [id number] [address] [place] [address] [id number] Oct, Dental examination Z01.20 [facility] [address] [facility] [id number] [address] [place] [address] Oct, [facility] [address] [place] [id number] [address] [place] [address] Oct, Pain in right knee M25.561 [place] [address] [place] [id number] [address] [place] [address] Sep, [facility] [address] [place] [id number] [place] [address] Sep, Other chronic pain G89.29 [place] [address] [place] [id number] [place] [address] Sep, Lumbago with sciatica, unspe cified side M54.40 [place] [address] [address] Sep, [facility] [address] [address] Sep, Viral URI J06.9 and BMI 45.0 -49.9, adult Z68.42 [facility] [address] [address] Aug, Foreign body hand S60.559A a nd BMI 45.0-49.9, adult Z68.42 [facility] [address] [address] Aug, [place] [address] [address] Aug, Lumbago with sciatica, unspe cified side M54.40 [facility] [address] [place] [id number] [place] [address] Aug, Vertigo R42 ; Dysfunction of both eustachian tubes H69.83 ; Low back pain M54.5 and Other chronic pain G89.29 [facility] [address] [place] [id number] [address] [place] [address] Aug, Dizziness R42 and Acute bila teral otitis media H66.93 [facility] [address] [facility] [id number] [address] [place] [address] Aug, Lumbago with sciatica, unspe cified side M54.40 [facility] [address] [id number] [address] [place] [address] [id number] Jul, Dental examination Z01.20 [facility] [address] [facility] [id number] [address] [place] [address] Jul, [facility] [address] [facility] [id number] [address] [place] [address] Jul, [place] [address] [place] [id number] [place] [address] Jul, Dysfunction of both eustachi an tubes H69.83 [place] [address] [place] [id number] [place] [address] Jul, Controlled type 2 diabetes m ellitus without complication, without long-term current use of insulin E11.9 [facility] [address] [place] [id number] [address] [place] [address] Jul, Controlled type 2 diabetes m ellitus without complication, without long-term current use of insulin E11.9 [facility] [address] [place] [id number] [address] [place] [address] Jul, Dizziness R42 and BMI 40.0-4 4.9, adult Z68.41 [facility] [address] [place] [address] Jul, Controlled type 2 diabetes m ellitus without complication, without long-term current use of insulin E11.9 [facility] [address] [place] [id number] [address] [place] [address] Jul, Lumbago with sciatica, unspe cified side M54.40 [facility] [address] [id number] [address] [place] [address] [id number] Jul, Dental examination Z01.20 [facility] [address] [place] [id number] [place] [address] Jun, [facility] [address] [facility] [id number] [place] [address] [id number] Jun, Dental examination Z01.20 [facility] [address] [place] [id number] [place] [address] 09 Jun, 2017 Controlled type 2 diabetes m ellitus without complication, without long-term current use of insulin E11.9 [facility] [address] [address] Jun, Lumbago with sciatica, unspe cified side M54.40 [facility] [address] [id number] May, Dental examination Z01.20 [facility] [address] [address] May, Controlled type 2 diabetes m ellitus without complication, without long-term current use of insulin E11.9 [facility] [address] [id number] May, Dental examination Z01.20 [facility] [address] [id number] 18 May, 2017 Bronchitis J40 ; Dry mouth R 68.2 ; Non morbid obesity E66.9 and Controlled type 2 diabetes mellitus without complication, without long-term current use of insulin E11.9 [facility] [address] [address] 16 May, 2017 Encounter for immunization Z 23 [facility] [address] [place] [id number] [place] [address] 07 May, 2017 Lumbago with sciatica, unspe cified side M54.40 [facility] [address] [place] [id number] [address] [place] [id number] 05 May, 2017 [facility] [address] [id number] Apr, Dental examination Z01.20 [facility] [address] [facility] [id number] [address] [place] [address] Apr, Lumbago with sciatica, unspe cified side M54.40 [facility] [address] [id number] [address] [place] [id number] Mar, Lumbago with sciatica, left side M54.42 [facility] [address] [facility] [id number] [address] [place] [address] Mar, [facility] [address] [facility] [id number] [address] [place] [address] Mar, Lumbar neuritis M54.16 [facility] [address] [facility] [id number] [address] [place] [address] Mar, [facility] [address] [place] [id number] [place] [address] [id number] Mar, Dental examination Z01.20 [facility] [address] [facility] [id number] [address] [place] [address] Mar, MELE (obstructive sleep apnea ) G47.33 ; Neuropathy involving both lower extremities G57.93 and Frequent headaches R51 [facility] [address] [facility] [id number] [address] [place] [address] Mar, Lumbago with sciatica, unspe cified side M54.40 [facility] [address] [place] [id number] [address] [place] [address] Feb, Lumbago with sciatica, unspe cified side M54.40 and Controlled type 2 diabetes mellitus without complication, without long-term current use of insulin E11.9 [facility] [address] [place] [id number] [address] [place] [address] January, Hypertension, benign I10 and Bilateral low back pain with sciatica, sciatica laterality unspecified M54.40 [facility] [address] [place] [id number] [address] [place] [address] January, Hypertension, benign I10 ; L umbago with sciatica, unspecified side M54.40 ; Other chronic pain G89.29 and Controlled type 2 diabetes mellitus without complication, without long-term current use of insulin E11.9 [place] [address] [id number] [address] [place] [address] January, Lumbar neuritis M54.16 [place] [address] [id number] [address] [place] [address] January, [place] [address] [id number] [address] [place] [id number] Dec, Lumbago with sciatica, right side M54.41 and Lumbar neuritis M54.16 [place] [address] [place] [id number] [address] [place] [address] Dec, Lumbar neuritis M54.16 [place] [address] [facility] [id number] [address] [place] [address] Dec, Lumbar neuritis M54.16 [place] [address] [facility] [id number] [address] [place] [id number] Nov, Lumbar neuritis M54.16 ; Lum bago with sciatica, right side M54.41 ; Controlled type 2 diabetes mellitus without complication, without long-term current use of insulin E11.9 and Rash and nonspecific skin eruption R21 [place] [address] [address] [facility] [id number] [address] [place] [id number] Nov, Lumbar neuritis M54.16 and P alexi [place] L23.7 [place] [address] [id number] [address] [place] [id number] Oct, Lumbar neuritis M54.16 ; Cou ghing R05 and Mood disorder F39 [place] [address] [address] [facility] [id number] [address] [place] [id number] Sep, Lumbago with sciatica, right side M54.41 [place] [address] [address] [facility] [id number] [address] [place] [id number] Sep, Adjustment disorder with dis turbance of emotion F43.29 and Pain management R52 [place] [id number] [id number] [address] [place] [id number] Sep, [place] [id number] [facility] [id number] [address] [place] [id number] Sep, [place] [address] [address] [facility] [id number] [address] [place] [id number] Sep, Controlled type 2 diabetes m maribell without complication, without long-term current use of insulin E11.9 and Lumbago with sciatica, unspecified side M54.40 [place] [address] [address] [facility] [id number] [address] [place] [id number] Aug, Controlled type 2 diabetes evens reyna without complication, without long-term current use of insulin E11.9 ; Pain in right knee M25.561 ; Pain in left knee M25.562 ; Other chronic pain G89.29 ; Lumbago with sciatica, right side M54.41 ; Neck pain M54.2 and Encounter for immunization Z23 [place] [address] [address] [facility] [id number] [address] [place] [id number] Jul, [place] [address] [address] [facility] [id number] [address] [place] [id number] Jul, Controlled type 2 diabetes evens reyna without complication, without long-term current use of insulin E11.9 [place] [address] [address] [facility] [id number] [address] [place] [id number] Jul, [place] [address] [address] [facility] [place] [id number] [address] [place] [id number] Jul, [place] [address] [address] [facility] [place] [id number] [address] [place] [address] Jul, Lumbago with sciatica, left side M54.42 ; Lumbago with sciatica, right side M54.41 and Other chronic pain G89.29 [place] [address] [address] [facility] [place] [id number] [address] [place] [id number] Jul, [facility] [address] [id number] [address] [place] [address] Jul, [facility] [address] [id number] [address] [place] [address] Jun, [facility] [address] [id number] [address] [place] [address] Jun, Lumbago with sciatica, right side M54.41 and Other chronic pain G89.29 [facility] [address] [id number] [address] [place] [address] Jun, Cervicalgia M54.2 ; Lumbago with sciatica, unspecified side M54.40 and Other chronic pain G89.29 [facility] [address] [id number] [address] [place] [address] 15 May, 2016 Pain in right knee M25.561 ; Pain in left knee M25.562 and Other chronic pain G89.29 [facility] [address] [id number] [address] [place] [address] May, [facility] [address] [id number] [address] [place] [address] Apr, Other chronic pain G89.29 an d Pain in right knee M25.561 [facility] [address] [id number] [address] [place] [address] Apr, Pain in right knee M25.561 [facility] [address] [id number] [address] [place] [address] Mar, [facility] [address] [id number] [address] [place] [address] Mar, Mood disorder F39 and Contro lled type 2 diabetes mellitus without complication, without long-term current use of insulin E11.9 [facility] [address] [id number] [address] [place] [address] Mar, Pain in right knee M25.561 ; Pain in left knee M25.562 ; Other chronic pain G89.29 ; Obstructive sleep apnea syndrome G47.33 ; Mood disorder F39 and Controlled type 2 diabetes mellitus without complication, without long- term current use of insulin E11.9 [facility] [address] [id number] [address] [place] [address] Mar, [facility] [address] [id number] [address] [place] [id number] Feb, Dental examination Z01.20 [facility] [address] [id number] [address] [place] [address] Feb, [facility] [address] [id number] [address] [place] [id number] Feb, Osteoarthritis of right knee , unspecified osteoarthritis type M17.9 [facility] [address] [id number] [address] [place] [address] January, [facility] [address] [id number] [address] [place] [id number] January, Dental examination Z01.20 [facility] [address] [id number] [address] [place] [address] January, [facility] [address] [id number] [address] [place] [id number] January, Dental examination Z01.20 an d Caries K02.9 [facility] [address] [id number] [address] [place] [address] Dec, Encounter for other preproce dural examination Z01.818 [facility] [address] [id number] [address] [place] [address] Dec, [facility] [address] [id number] [address] [place] [address] Dec, Knee pain M25.569 [facility] [address] [id number] [address] [place] [address] Dec, Pain in right knee M25.561 [facility] [address] [id number] [address] [place] [address] Dec, [facility] [address] [id number] [address] [place] [id number] Dec, [facility] [address] [id number] [address] [place] [address] Dec, Encounter for immunization Z 23 [facility] [address] [id number] [address] [place] [address] Dec, [facility] [address] [id number] [address] [place] [id number] Dec, [facility] [address] [id number] [address] [place] [address] Nov, [facility] [address] [id number] [address] [place] [address] Nov, Hypertension, benign I10 ; C ervicalgia M54.2 ; Pain in right knee M25.561 and Pain in left knee M25.562 [facility] [address] [id number] [address] [place] [address] Oct, [facility] [address] [id number] [address] [place] [address] Oct, [facility] [address] [id number] [address] [place] [address] Oct, Osteoarthritis of both knees M17.0 [facility] [address] [id number] [address] [place] [address] Oct, [facility] [address] [id number] [address] [place] [address] Oct, Low back pain M54.5 [facility] [address] [id number] [address] [place] [address] 05 Oct, 2015 Low back pain M54.5 ; Sciati ca, unspecified side M54.30 ; Pain in right knee M25.561 ; Pain in left knee M25.562 ; Pain in right shoulder M25.511 and Pain in left shoulder M25.512 [place] [address] [address] [place] [id number] [address] [place] [address] Oct, [place] [address] [address] [place] [id number] [address] [place] [address] Sep, Pain in right hip M25.551 [place] [address] [address] [place] [id number] [address] [place] [address] Sep, Acute upper respiratory infe ction, unspecified J06.9 [place] [address] [address] [place] [id number] [address] [place] [address] Aug, Acute upper respiratory infe ction, unspecified J06.9 and Other viral agents as the cause of diseases classified elsewhere B97.89 [place] [address] [address] [place] [id number] [address] [place] [address] Jul, Arthritis M19.90 [place] [address] [address] [place] [id number] [address] [place] [address] Jun, Arthritis M19.90 ; Pain in r ight hip M25.551 ; Pain in left hip M25.552 ; Bilateral low back pain with sciatica, sciatica laterality unspecified M54.40 ; Neck pain M54.2 ; Upper back pain M54.9 and Knee pain, unspecified laterality M25.569 [place] [address] [address] [place] [id number] [address] [place] [address] May, Osteoarthritis of both knees 715.96 [place] [address] [address] [place] [id number] [address] [place] [address] May, Rash 782.1 [place] [address] [address] [place] [id number] [address] [place] [address] Apr, Lumbar strain 847.2 [place] [address] [address] [place] [id number] [address] [place] [address] Apr, Rash 782.1 [facility] [address] [id number] [address] [place] [id number] Mar, Rash 782.1 [facility] [address] [id number] [address] [place] [address] Feb, Rash 782.1 ; Hemorrhoids 455 .6 and Constipation 564.00 [facility] [address] [id number] [address] [place] [address] Feb, Osteoarthritis of both knees 715.96 [facility] [address] [id number] [address] [place] [address] January, [facility] [address] [id number] [address] [place] [address] Dec, [facility] [address] [id number] [address] [place] [id number] Dec, [facility] [address] [id number] [address] [place] [address] Dec, [facility] [address] [id number] [address] [place] [id number] Nov, [facility] [address] [id number] [address] [place] [id number] Nov, [facility] [address] [id number] [address] [place] [address] Nov, [facility] [address] [id number] [address] [place] [id number] Nov, [facility] [address] [id number] [address] [place] [id number] Nov, [facility] [address] [id number] [address] [place] [id number] Nov, [facility] [address] [id number] [address] [place] [id number] Oct, [facility] [address] [id number] [address] [place] [address], [place] [address] Oct, 2014 [facility] [address] [id number] [address] [place] [address], [place] [address] Oct, 2014 [facility] [address] [id number] [address] [place] [address], [place] [address] Oct, 2014 [facility] [address] [id number] [address] [place] [address], [place] [address] Oct, 2014 [facility] [address] [id number] [address] [place] [address], [place] [address] Oct, 2014 [facility] [address] [id number] [address] [place] [address], [place] [address] Oct, 2014 [facility] [address] [id number] [address] [place] [address], [place] [address] Oct, 2014 [facility] [address] [id number] [address] [place] [address], [place] [address] Oct, 2014 [facility] [address] [id number] [address] [place] [address], [place] [address] Oct, [facility] [address] [id number] [address] [place] [address], [place] [address] Oct, [facility] [address] [id number] [address] [place] [address], [place] [address] Sep, [facility] [address] [id number] [address] [place] [address], [place] [address] Sep, [facility] [address] [id number] [address] [place] [address], [place] [address] Sep, [facility] [address] [id number] [address] [place] [address], [place] [address] Sep, [facility] [address] [id number] [address] [place] [address], [place] [address] Sep, [facility] [address] [id number] [address] [place] [id number] Sep, [facility] [address] [id number] [address] [place] [address], [place] [address] Aug, [facility] [address] [id number] [address] [place] [address], [place] [address] Aug, [facility] [address] [id number] [address] [place] [address], [place] [address] Aug, [facility] [address] [id number] [address] [place] [address], [place] [address] Aug, [facility] [address] [id number] [address] [place] [address], [place] [address] Aug, [facility] [address] [id number] [address] [place] [address], [place] [address] Aug, [facility] [address] [id number] [address] [place] [address], [place] [address] Aug, [facility] [address] [id number] [address] [place] [address], [place] [address] Aug, [facility] [address] [id number] [address] [place] [address], [place] [address] Aug, [facility] [address] [id number] [address] [place] [address], [place] [address] Aug, [facility] [address] [id number] [address] [place] [address], [place] [address] Jul, [facility] [address] [id number] [address] [place] [address], [place] [address] Jul, [facility] [address] [id number] [address] [place] [address], [place] [address] Jul, [facility] [address] [id number] [address] [place] [address], [place] [address] Jul, [facility] [address] [id number] [address] [place] [address], [place] [address] Jun, [facility] [address] [id number] [address] [place] [address], [place] [address] Jun, [facility] [address] [id number] [address] [place] [address], [place] [address] Jun, [facility] [address] [id number] [address] [place] [address], [place] [address] Jun, [facility] [address] [id number] [address] [place] [address], [place] [address] Jun, [facility] [address] [id number] [address] [place] [address], [place] [address] Jun, [facility] [address] [id number] [address] [place] [address], [place] [address] Jun, [facility] [address] [id number] [address] [place] [address], [place] [address] Jun, [facility] [address] [id number] [address] [place] [address], [place] [address] 24 May, 2014 [facility] [address] [id number] [address] [place] [address], [place] [address] 24 May, 2014 [facility] [address] [id number] [address] [place] [address], [place] [address] 19 May, 2014 [facility] [address] [id number] [address] [place] [address], [place] [address] 19 May, 2013 [facility] [address] [id number] [address] [place] [address], [place] [address] 15 May, 2013 [facility] [address] [id number] [address] [place] [address], [place] [address] 15 May, 2013 [facility] [address] [id number] [address] [place] [address], [place] [address] 15 May, 2014 [facility] [address] [id number] [address] [place] [address], [place] [address] 15 May, 2013 [facility] [address] [id number] [address] [place] [address], [place] [address] Apr, [facility] [address] [id number] [address] [place] [address], [place] [address] Apr, [facility] [address] [id number] [address] [place] [address], [place] [address] Apr, [facility] [address] [id number] [address] [place] [address], [place] [address] Apr, [facility] [address] [id number] [address] [place] [address], [place] [address] Apr, [facility] [address] [id number] [address] [place] [address], [place] [address] Apr, [facility] [address] [id number] [address] [place] [address], [place] [address] Apr, [facility] [address] [id number] [address] [place] [address], [place] [address] Apr, [facility] [address] [id number] [address] [place] [address], [place] [address] Apr, [facility] [address] [id number] [address] [place] [address], [place] [address] Apr, [facility] [address] [id number] [address] [place] [address], [place] [address] Apr, [facility] [address] [id number] [address] [place] [address], [place] [address] Apr, [facility] [address] [id number] [address] [place] [address], [place] [address] Mar, [facility] [address] [id number] [address] [place] [address], [place] [address] Mar, [facility] [address] [id number] [address] [place] [address], [place] [address] Mar, [facility] [address] [id number] [address] [place] [address], [place] [address] Mar, [facility] [address] [id number] [address] [place] [address], [place] [address] Mar, [facility] [address] [id number] [facility] [place] [address] Mar, [facility] [address] [id number] [address] [place] [address], [place] [address] Feb, [facility] [address] [id number] [address] [place] [address], [place] [address] Feb, [facility] [address] [id number] [address] [place] [address], [place] [address] Feb, [facility] [address] [id number] [address] [place] [address], [place] [address] Feb, [facility] [address] [id number] [address] [place] [address], [place] [address] Feb, [facility] [address] [id number] [address] [place] [address], [place] [address] Feb, [facility] [address] [id number] [address] [place] [address], [place] [address] Feb, [facility] [address] [id number] [address] [place] [address], [place] [address] Feb, [facility] [address] [id number] [address] [place] [address], [place] [address] 05 Feb, 2014 [facility] [address] [id number] [address] [place] [address], [place] [address] 05 Feb, 2014 [facility] [address] [id number] [address] [place] [address], [place] [address] Feb, [facility] [address] [id number] [address] [place] [address], [place] [address] Feb, [facility] [address] [id number] [address] [place] [address], [place] [address] 03 Feb, 2014 [facility] [address] [id number] [address] [place] [address], [place] [address] 03 Feb, 2014 [facility] [address] [id number] [facility] [place] [address] January, [facility] [address] [id number] [address] [place] [address], [place] [address] January, [facility] [address] [id number] [address] [place] [address], [place] [address] January, [facility] [address] [id number] [address] [place] [address], [place] [address] January, [facility] [address] [id number] [address] [place] [address], [place] [address] January, [facility] [address] [id number] [address] [place] [address], [place] [address] January, [facility] [address] [id number] [address] [place] [address], [place] [address] Dec, [facility] [address] [id number] [address] [place] [address], [place] [address] Dec, [facility] [address] [id number] [address] [place] [address], [place] [address] Dec, [facility] [address] [id number] [address] [place] [address], [place] [address] Dec, [facility] [address] [id number] [address] [place] [address], [place] [address] Dec, [facility] [address] [id number] [address] [place] [address], [place] [address] Dec, [facility] [address] [id number] [address] [place] [address], [place] [address] Dec, [facility] [address] [id number] [address] [place] [address], [place] [address] Dec, [facility] [address] [id number] [address] [place] [address], [place] [address] Nov, [facility] [address] [id number] [address] [place] [address], [place] [address] Nov, [facility] [address] [id number] [facility] [place] [address] Nov, [facility] [address] [id number] [facility] [place] [address] Nov, [facility] [address] [id number] [facility] [place] [address] Nov, [facility] [address] [id number] [address] [place] [address], [place] [address] Nov, [facility] [address] [id number] [address] [place] [address], [place] [address] Nov, [facility] [address] [id number] [address] [place] [address], [place] [address] Nov, [facility] [address] [id number] [address] [place] [address], [place] [address] Oct, [facility] [address] [id number] [address] [place] [address], [place] [address] Oct, [facility] [address] [id number] [address] [place] [address], [place] [address] Oct, [facility] [address] [id number] [address] [place] [address], [place] [address] Oct, [facility] [address] [id number] [address] [place] [address], [place] [address] Oct, [facility] [address] [id number] [address] [place] [address], [place] [address] Oct, [facility] [address] [id number] [address] [place] [address], [place] [address] Oct, [facility] [address] [id number] [address] [place] [address], [place] [address] Oct, [facility] [address] [id number] [address] [place] [address], [place] [address] Oct, [facility] [address] [id number] [address] [place] [address], [place] [address] Oct, [facility] [address] [id number] [address] [place] [address], [place] [address] Sep, [facility] [address] [id number] [address] [place] [address], [place] [address] Sep, [facility] [address] [id number] [address] [place] [address], [place] [address] Sep, [facility] [address] [id number] [address] [place] [address], [place] [address] Sep, [facility] [address] [id number] [address] [place] [address], [place] [address] Sep, [facility] [address] [id number] [address] [place] [address], [place] [address] Sep, [facility] [address] [id number] [address] [place] [address], [place] [address] Aug, [facility] [address] [id number] [address] [place] [address], [place] [address] Aug, [facility] [address] [id number] [address] [place] [address], [place] [address] Aug, [facility] [address] [id number] [address] [place] [address], [place] [address] Aug, [facility] [address] [id number] [address] [place] [address], [place] [address] Aug, [facility] [address] [id number] [address] [place] [address], [place] [address] Aug, [facility] [address] [id number] [address] [place] [address], [place] [address] Aug, [facility] [address] [id number] [address] [place] [address], [place] [address] Aug, [facility] [address] [id number] [address] [place] [address], [place] [address] Jul, [facility] [address] [id number] [address] [place] [address], [place] [address] Jul, [facility] [address] [id number] [address] [place] [address], [place] [address] Jul, [facility] [address] [id number] [address] [place] [address], [place] [address] Jul, [facility] [address] [id number] [address] [place] [address], [place] [address] Jul, [facility] [address] [id number] [address] [place] [address], [place] [address] Jul, [facility] [address] [id number] [address] [place] [address], [place] [address] Jun, [facility] [address] [id number] [address] [place] [address], [place] [address] Jun, [facility] [address] [id number] [address] [place] [address], [place] [address] Jun, [facility] [address] [id number] [address] [place] [address], [place] [address] May, [facility] [address] [id number] [address] [place] [address], [place] [address] May, [facility] [address] [id number] [address] [place] [address], [place] [address] May, [facility] [address] [id number] [address] [place] [id number] Apr, [facility] [address] [id number] [address] [place] [address], [place] [address] Apr, [facility] [address] [id number] [address] [place] [address], [place] [address] Apr, [facility] [address] [id number] [address] [place] [address], [place] [address] Apr, [facility] [address] [id number] [facility] [place] [address] Mar, [facility] [address] [id number] [address] [place] [address], [place] [address] Mar, [facility] [address] [id number] [address] [place] [address], [place] [address] Mar, [facility] [address] [id number] [address] [place] [address], [place] [address] Mar, [facility] [address] [id number] [address] [place] [address], [place] [address] Feb, [facility] [address] [id number] [address] [place] [address], [place] [address] Feb, [facility] [address] [id number] [address] [place] [address], [place] [address] Feb, [facility] [address] [id number] [address] [place] [address], [place] [address] Feb, [facility] [address] [id number] [address] [place] [address], [place] [address] January, [facility] [address] [id number] [address] [place] [address], [place] [address] January, [facility] [address] [id number] [address] [place] [address], [place] [address] January, [facility] [address] [id number] [address] [place] [address], [place] [address] Nov, [facility] [address] [id number] [address] [place] [address], [place] [address] Nov, [facility] [address] [id number] [address] [place] [address], [place] [address] Oct, [facility] [address] [id number] [address] [place] [address], [place] [address] Oct, [facility] [address] [id number] [address] [place] [address], [place] [address] Oct, [facility] [address] [id number] [address] [place] [address], [place] [address] Oct, [facility] [address] [id number] [address] [place] [address], [place] [address] Sep, [facility] [address] [id number] [address] [place] [address], [place] [address] Sep, [facility] [address] [id number] [address] [place] [address], [place] [address] Sep, [facility] [address] [id number] [address] [place] [address], [place] [address] Aug, [facility] [address] [id number] [address] [place] [address], [place] [address] Aug, [facility] [address] [id number] [address] [place] [address], [place] [address] Aug, [facility] [address] [id number] [address] [place] [address], [place] [address] Aug, [facility] [address] [id number] [address] [place] [address], [place] [address] Aug, [facility] [address] [id number] [address] [place] [address], [place] [address] Aug, [facility] [address] [id number] [address] [place] [id number] Jul, [facility] [address] [id number] [address] [place] [id number] Jul, [facility] [address] [id number] [address] [place] [address], [place] [address] Jun, [facility] [address] [id number] [address] [place] [address], [place] [address] Jun, [facility] [address] [id number] [address] [place] [id number] Jun, [facility] [address] [id number] [address] [place] [id number] Apr, [facility] [address] [id number] [address] [place] [address], [place] [address] Apr, [facility] [address] [id number] [address] [place] [address], [place] [address] Mar, [facility] [address] [id number] [address] [place] [address], [place] [address] Mar, [facility] [address] [id number] [address] [place] [address], [place] [address] Mar, [facility] [address] [id number] [address] [place] [address], [place] [address] Mar, [facility] [address] [id number] [address] [place] [address], [place] [address] Feb, [facility] [address] [id number] [address] [place] [address], [place] [address] Feb, [facility] [address] [id number] [address] [place] [address], [place] [address] Feb, [facility] [address] [id number] [address] [place] [address], [place] [address] January, [facility] [address] [id number] [address] [place] [address], [place] [address] January, [facility] [address] [id number] [address] [place] [address], [place] [address] January, [facility] [address] [id number] [address] [place] [address], [place] [address] January, [facility] [address] [id number] [address] [place] [address], [place] [address] Dec, [facility] [address] [id number] [address] [place] [address], [place] [address] Dec, [facility] [address] [id number] [address] [place] [address], [place] [address] Nov, [facility] [address] [id number] [address] [place] [address], [place] [address] Nov, [facility] [address] [id number] [address] [place] [address], [place] [address] 16 Oct, 2011 [facility] [address] [id number] [address] [place] [address], [place] [address] 15 Oct, 2011 [facility] [address] [id number] [address] [place] [address], [place] [address] Sep, [facility] [address] [id number] [address] [place] [address], [place] [address] Sep, [facility] [address] [id number] [address] [place] [address], [place] [address] Sep, [facility] [address] [id number] [address] [place] [address], [place] [address] Sep, [facility] [address] [id number] [address] [place] [address], [place] [address] Aug, [facility] [address] [id number] [address] [place] [address], [place] [address] Aug, [facility] [address] [id number] [address] [place] [address], [place] [address] Aug, [facility] [address] [id number] [address] [place] [address], [place] [address] Jul, [facility] [address] [id number] [address] [place] [address], [place] [address] Aug, [facility] [address] [id number] [address] [place] [address], [place] [address] Aug, [facility] [address] [id number] [address] [place] [address], [place] [address] Aug, [facility] [address] [id number] [address] [place] [address], [place] [address] Aug, [facility] [address] [id number] [address] [place] [address], [place] [address] Jul, [facility] [address] [id number] [address] [place] [id number] Jul, [facility] [address] [id number] [address] [place] [phone] Jul, [facility] [address] [id number] [address] [place] [id number] Jun, [facility] [address] [id number] [address] [place] [id number] Jun, [facility] [address] [id number] [address] [place] [id number] Jun, [facility] [address] [id number] [address] [place] [id number] Apr, [facility] [address] [facility] [id number] [address] [place] [id number] Mar, IMMUNIZATIONS No Known Immunizations SOCIAL HISTORY [...]
--- OUTSIDE RECORDS SUMMARY | 2020-03-18 14:36 | XMS REPORT ---
Author Author George WAYNE [facility] Address [address] [place] [address] Care Team Providers Care Blood Collector Name Role Phone REYNA WAYNE Unavailable PROBLEMS ALLERGIES No Information ENCOUNTERS IMMUNIZATIONS No Known Immunizations SOCIAL HISTORY No smoking Hx information available REASON FOR VISIT PLAN OF CARE VITAL SIGNS MEDICATIONS Unknown Medications RESULTS No Results PROCEDURES INSTRUCTIONS MEDICATIONS ADMINISTERED No Known Medications MEDICAL (GENERAL) HISTORY
--- OUTSIDE RECORDS SUMMARY | 2020-03-18 14:37 | XMS REPORT ---
Author Author George WAYNE REYNA Organization [facility] Address [address] [place] [address] Care Team Providers Care Vice Investigator Name Role Phone REYNA WAYNE Unavailable PROBLEMS Type Condition ICD9-CM Code AXQ18-[place] Code Onset Dates Condition S tatus SNOMED Code Problem Hypertension, benign I10 Active 77360684 Problem Other chronic pain G89.29 Active 8 3902051 Problem Lumbago with sciatica, unspecified side M54.40 Active 785133374 Problem Controlled type 2 diabetes m ellitus without complication, without long- term current use of insulin E11.9 Active 526889865 Problem Lumbago with sciatica, right side M54.41 Active 304447645 Problem Adjustment disorder with disturbance of emotion F4 3.29 Active 34216816 Problem MELE (obstructive sleep apnea) G47.33 Active 49575430 Problem Non morbid obesity E66.9 Active 4 47989061 Problem Hammer toe of left foot M20.42 Active 104874496 Problem Mood disorder F39 Active 310168 05 Problem Deformity of left foot M21.962 Active 748074960 Problem Lumbago with sciatica, left side M54.42 Active 524655652 Problem Erectile dysfunction due to diseases classified elsewhere N52.1 Active 673831019 Problem Obstructive sleep apnea syndrome G47.33 Active 74630464 Problem Type 2 diabetes mellitus wit h diabetic neuropathy, without long-term current use of insulin E11.40 Active 19177 006 Problem Essential hypertension I10 Active 44531338 ALLERGIES No Information ENCOUNTERS Encounter Location Date Diagnosis [facility] [address] [facility] [id number] [address] [place] [address] May, [facility] [address] [facility] [id number] [address] [place] [address] Apr, Morbid obesity E66.01 ; Bron chitis J40 and High risk medications (not anticoagulants) long-term use Z79.899 [facility] [address] [id number] [address] [place] [address] Apr, Lumbago with sciatica, unspe cified side M54.40 [facility] [address] [facility] [id number] [address] [place] [address] Apr, [facility] [address] [facility] [id number] [address] [place] [address] Mar, Lumbar neuritis M54.16 and M orbid obesity E66.01 [facility] [address] [id number] [address] [place] [address] Mar, [facility] [address] [facility] [id number] [address] [place] [address] Mar, [place] [address] [facility] [id number] [address] [place] [address] Mar, Lumbago with sciatica, unspe cified side M54.40 [facility] [address] [facility] [id number] [address] [place] [address] Mar, Morbid obesity E66.01 ; Gabe lara R05 ; 2+ pitting edema R60.9 and Controlled type 2 diabetes mellitus without complication, without long-term current use of insulin E11.9 [place] [address] [facility] [id number] [address] [place] [address] Feb, [facility] [address] [facility] [id number] [address] [place] [address] Feb, Lumbago with sciatica, unspe cified side M54.40 [facility] [address] [facility] [id number] [address] [place] [address] Feb, [facility] [address] [facility] [id number] [address] [place] [address] Feb, Controlled type 2 diabetes m ellitus without complication, without long-term current use of insulin E11.9 [facility] [address] [facility] [id number] [address] [place] [address] January, Deformity of left foot M21.9 62 [facility] [address] [id number] [address] [place] [address] January, [facility] [address] [id number] [address] [place] [address] January, Lumbago with sciatica, unspe cified side M54.40 [facility] [address] [id number] [address] [place] [address] January, [facility] [address] [facility] [id number] [address] [place] [address] January, Lumbago with sciatica, unspe cified side M54.40 [facility] [address] [facility] [id number] [address] [place] [address] January, [facility] [address] [facility] [id number] [address] [place] [address] January, Acute right-sided thoracic b ack pain M54.6 [facility] [address] [facility] [id number] [address] [place] [address] January, Acute right-sided thoracic b ack pain M54.6 [facility] [address] [facility] [id number] [address] [place] [address] January, Chest pain, unspecified type R07.9 ; Morbid obesity E66.01 and Scabies B86 [facility] [address] [facility] [id number] [address] [place] [address] Dec, Lumbago with sciatica, unspe cified side M54.40 [facility] [address] [facility] [id number] [address] [place] [address] Dec, Toenail fungus B35.1 [facility] [address] [facility] [id number] [address] [place] [address] Dec, Toenail fungus B35.1 [facility] [address] [place] [id number] [address] [place] [address] Dec, Acute right-sided thoracic b ack pain M54.6 [facility] [address] [place] [id number] [place] [address] Dec, Lumbago with sciatica, unspe cified side M54.40 [facility] [address] [place] [id number] [address] [place] [address] Nov, Hammer toe of left foot M20. 42 ; Deformity of left foot M21.962 and Type 2 diabetes mellitus with diabetic neuropathy, without long-term current use of insulin E11.40 [facility] [address] [place] [id number] [place] [address] Nov, Acute right-sided thoracic b ack pain M54.6 ; Morbid obesity E66.01 and Rt flank pain R10.9 [facility] [address] [address] Nov, Lumbago with sciatica, unspe cified side M54.40 [place] [address] [place] [id number] [place] [address] Oct, Lumbago with sciatica, unspe cified side M54.40 [facility] [address] [place] [id number] [address] [place] [address] Sep, Lumbago with sciatica, unspe cified side M54.40 [facility] [address] [place] [id number] [address] [place] [address] Sep, [facility] [address] [place] [id number] [address] [place] [address] Sep, BMI 40.0-44.9, adult Z68.41 ; Lumbago with sciatica, left side M54.42 ; Lumbago with sciatica, right side M54.41 and Other chronic pain G89.29 [facility] [address] [place] [id number] [place] [address] Aug, Lumbago with sciatica, unspe cified side M54.40 [place] [address] [address] Aug, Type 2 diabetes mellitus wit h diabetic neuropathy, without long- term current use of insulin E11.40 ; Hammer toe of left foot M20.42 ; Hypertension, benign I10 and Frequent headaches R51 [place] [address] [address] Jul, Lumbago with sciatica, unspe cified side M54.40 [place] [address] [address] Jul, [place] [address] [address] Jul, Essential hypertension I10 a nd Controlled type 2 diabetes mellitus without complication, without long-term current use of insulin E11.9 [place] [address] [address] Jul, Essential hypertension I10 ; Controlled type 2 diabetes mellitus without complication, without long-term current use of insulin E11.9 and BMI 40.0-44.9, adult Z68.41 [place] [address] [address] Jul, Dysfunction of left eustachi an tube H69.82 [place] [address] [place] [id number] [address] [place] [address] Jul, Lumbago with sciatica, unspe cified side M54.40 [facility] [address] [place] [id number] [address] [place] [address] [id number] Jun, Dental examination Z01.20 [place] [address] [place] [id number] [address] [place] [address] Jun, Lumbago with sciatica, unspe cified side M54.40 and Encounter for immunization Z23 [place] [address] [address] Jun, Dysfunction of left eustachi an tube H69.[address] [place] [address] [id number] [id number] Jun, Dental examination Z01.20 [facility] [address] [facility] [id number] [address] [place] [address] Jun, Other chronic pain G89.29 [facility] [address] [id number] [address] [place] [address] [id number] Jun, Dental examination Z01.20 [facility] [address] [facility] [id number] [address] [place] [address] Jun, [facility] [address] [place] [id number] [address] [place] [address] Jun, Bronchitis J40 ; Dysfunction of left eustachian tube H69.82 and BMI 45.0-49.9, adult Z68.42 [facility] [address] [place] [id number] [address] [place] [address] Jun, Lumbago with sciatica, unspe cified side M54.40 [facility] [address] [place] [id number] [address] [place] [address] May, Type 2 diabetes mellitus wit h diabetic neuropathy, without long- term current use of insulin E11.40 and Hypertension, benign I10 [facility] [address] [place] [id number] [address] [place] [address] May, Lumbago with sciatica, unspe cified side M54.40 [facility] [address] [facility] [id number] [address] [place] [address] Apr, [facility] [address] [address] Apr, Controlled type 2 diabetes m ellitus without complication, without long-term current use of insulin E11.9 ; Insect bite (nonvenomous), right ankle, initial encounter S90.561A ; Local infection of the skin and subcutaneous tissue, unspecified L08.9 ; Acute swimmer''s ear of left side H60.332 and BMI 45.0-49.9, adult Z68.42 [place] [address] [address] Apr, Lumbago with sciatica, unspe cified side M54.40 [place] [address] [place] [id number] [address] [place] [address] Mar, [place] [address] [address] Mar, Lumbago with sciatica, unspe cified side M54.40 [place] [address] [address] Feb, Lumbago with sciatica, unspe cified side M54.40 [place] [address] [address] Feb, BMI 45.0-49.9, adult Z68.42 and Obstructive sleep apnea syndrome G47.33 [place] [address] [address] January, Lumbar neuritis M54.16 [place] [address] [address] January, Lumbago with sciatica, unspe cified side M54.40 [place] [address] [place] [id number] [address] [place] [address] Dec, Controlled type 2 diabetes m ellitus without complication, without long-term current use of insulin E11.9 ; Erectile dysfunction due to diseases classified elsewhere N52.1 and Mood disorder F39 [place] [address] [place] [id number] [address] [place] [address] Dec, Lumbago with sciatica, unspe cified side M54.40 [place] [address] [place] [id number] [address] [place] [address] Dec, Obstructive sleep apnea synd luis G47.33 [facility] [address] [id number] [address] [place] [address] Nov, Lumbago with sciatica, unspe cified side M54.40 ; Hypertension, benign I10 and Mood disorder F39 [facility] [address] [id number] [address] [place] [address] Nov, Other chronic pain G89.29 [facility] [address] [id number] [address] [place] [address] Nov, Lumbago with sciatica, unspe cified side M54.40 [facility] [address] [id number] [address] [place] [address] [id number] Nov, Dental examination Z01.20 [facility] [address] [id number] [address] [place] [address] Oct, [facility] [address] [id number] [address] [place] [address] Oct, Lumbago with sciatica, unspe cified side M54.40 [facility] [address] [id number] [address] [place] [address] Oct, Lumbago with sciatica, unspe cified side M54.40 [facility] [address] [id number] [address] [place] [address] Oct, [facility] [address] [id number] [address] [place] [address] Oct, [facility] [address] [id number] [address] [place] [address] [id number] Oct, Dental examination Z01.20 [facility] [address] [id number] [address] [place] [address] Oct, [facility] [address] [facility] [id number] [address] [place] [address] Oct, Pain in right knee M25.561 [place] [address] [address] Sep, [place] [address] [address] Sep, Other chronic pain G89.29 [place] [address] [address] Sep, Lumbago with sciatica, unspe cified side M54.40 [place] [address] [address] Sep, [facility] [place] [address] [address] Sep, Viral URI J06.9 and BMI 45.0 -49.9, adult Z68.42 [facility] [place] [address] [address] Aug, Foreign body hand S60.559A a nd BMI 45.0-49.9, adult Z68.42 [place] [address] [address] Aug, [place] [address] [address] Aug, Lumbago with sciatica, unspe cified side M54.40 [place] [address] [address] Aug, Vertigo R42 ; Dysfunction of both eustachian tubes H69.83 ; Low back pain M54.5 and Other chronic pain G89.29 [facility] [place] [address] [address] Aug, Dizziness R42 and Acute bila teral otitis media H66.93 [place] [address] [address] Aug, Lumbago with sciatica, unspe cified side M54.40 [facility] [address] [id number] [address] [place] [address] [id number] Jul, Dental examination Z01.20 [facility] [address] [id number] [address] [place] [address] Jul, [facility] [address] [facility] [id number] [address] [place] [address] Jul, [facility] [address] [facility] [id number] [address] [place] [address] Jul, Dysfunction of both eustachi an tubes H69.83 [facility] [address] [facility] [id number] [address] [place] [address] Jul, Controlled type 2 diabetes m ellitus without complication, without long-term current use of insulin E11.9 [facility] [address] [place] [id number] [address] [place] [address] Jul, Controlled type 2 diabetes m ellitus without complication, without long-term current use of insulin E11.9 [facility] [address] [facility] [id number] [address] [place] [address] Jul, Dizziness R42 and BMI 40.0-4 4.9, adult Z68.41 [facility] [address] [place] [id number] [address] [place] [address] Jul, Controlled type 2 diabetes m ellitus without complication, without long-term current use of insulin E11.9 [facility] [address] [facility] [id number] [address] [place] [address] Jul, Lumbago with sciatica, unspe cified side M54.40 [facility] [address] [id number] [address] [place] [address] [id number] Jul, Dental examination Z01.20 [facility] [address] [facility] [id number] [address] [place] [address] Jun, [facility] [address] [id number] [address] [place] [address] [id number] Jun, 2017 Dental examination Z01.20 [facility] [address] [place] [id number] [address] [place] [address] 09 Jun, 2017 Controlled type 2 diabetes m ellitus without complication, without long-term current use of insulin E11.9 [facility] [address] [place] [id number] [place] [address] Jun, Lumbago with sciatica, unspe cified side M54.40 [facility] [address] [facility] [id number] [place] [address] [id number] May, Dental examination Z01.20 [facility] [address] [place] [id number] [place] [address] May, Controlled type 2 diabetes m taraitus without complication, without long-term current use of insulin E11.9 [facility] [address] [id number] May, Dental examination Z01.20 [facility] [address] [place] [id number] [place] [address] 18 May, 2017 Bronchitis J40 ; Dry mouth R 68.2 ; Non morbid obesity E66.9 and Controlled type 2 diabetes mellitus without complication, without long-term current use of insulin E11.9 [facility] [address] [place] [id number] [place] [address] 16 May, 2017 Encounter for immunization Z 23 [facility] [address] [facility] [id number] [address] [place] [phone] 07 May, 2017 Lumbago with sciatica, unspe cified side M54.40 [facility] [address] [place] [id number] [address] [place] [phone] 05 May, 2017 [facility] [address] [place] [id number] [place] [address] [id number] Apr, Dental examination Z01.20 [facility] [address] [place] [id number] [address] [place] [address] Apr, Lumbago with sciatica, unspe cified side M54.40 [facility] [address] [facility] [id number] [address] [place] [address] Mar, Lumbago with sciatica, left side M54.42 [facility] [address] [facility] [id number] [address] [place] [address] Mar, [facility] [address] [facility] [id number] [address] [place] [address] Mar, Lumbar neuritis M54.16 [facility] [address] [id number] [address] [place] [phone] Mar, [facility] [address] [id number] [address] [place] [address] [id number] Mar, Dental examination Z01.20 [facility] [address] [place] [id number] [address] [place] [address] Mar, MELE (obstructive sleep apnea ) G47.33 ; Neuropathy involving both lower extremities G57.93 and Frequent headaches R51 [facility] [address] [facility] [id number] [address] [place] [address] Mar, Lumbago with sciatica, unspe cified side M54.40 [facility] [address] [facility] [id number] [address] [place] [address] Feb, Lumbago with sciatica, unspe cified side M54.40 and Controlled type 2 diabetes mellitus without complication, without long-term current use of insulin E11.9 [facility] [address] [facility] [id number] [address] [place] [address] January, Hypertension, benign I10 and Bilateral low back pain with sciatica, sciatica laterality unspecified M54.40 [facility] [address] [facility] [id number] [address] [place] [address] January, Hypertension, benign I10 ; L umbago with sciatica, unspecified side M54.40 ; Other chronic pain G89.29 and Controlled type 2 diabetes mellitus without complication, without long-term current use of insulin E11.9 [place] [address] [facility] [id number] [address] [place] [address] January, Lumbar neuritis M54.16 [place] [address] [place] [id number] [address] [place] [phone] January, [place] [address] [place] [id number] [place] [address] Dec, Lumbago with sciatica, right side M54.41 and Lumbar neuritis M54.16 [place] [address] [place] [id number] [place] [address] Dec, Lumbar neuritis M54.16 [place] [address] [place] [id number] [place] [address] Dec, Lumbar neuritis M54.16 [place] [address] [address] Nov, Lumbar neuritis M54.16 ; Lum bago with sciatica, right side M54.41 ; Controlled type 2 diabetes mellitus without complication, without long-term current use of insulin E11.9 and Rash and nonspecific skin eruption R21 [place] [address] [place] [id number] [place] [id number] 09 Nov, 2016 Lumbar neuritis M54.16 and P alexi [place] L23.7 [place] [address] [place] [id number] [place] [id number] Oct, Lumbar neuritis M54.16 ; Cou ghing R05 and Mood disorder F39 [place] [address] [place] [id number] [place] [id number] Sep, Lumbago with sciatica, right side M54.41 [place] [address] [place] [id number] [place] [id number] Sep, Adjustment disorder with dis turbance of emotion F43.29 and Pain management R52 [place] [address] [id number] [address] [place] [id number] Sep, [facility] [address] [id number] [address] [place] [id number] Sep, [facility] [address] [id number] [address] [place] [id number] Sep, Controlled type 2 diabetes m maribell without complication, without long-term current use of insulin E11.9 and Lumbago with sciatica, unspecified side M54.40 [place] [address] [id number] [address] [place] [id number] Aug, Controlled type 2 diabetes evens reyna without complication, without long-term current use of insulin E11.9 ; Pain in right knee M25.561 ; Pain in left knee M25.562 ; Other chronic pain G89.29 ; Lumbago with sciatica, right side M54.41 ; Neck pain M54.2 and Encounter for immunization Z23 [place] [id number] [id number] [address] [place] [id number] Jul, [place] [address] [id number] [address] [place] [id number] Jul, Controlled type 2 diabetes evens reyna without complication, without long-term current use of insulin E11.9 [place] [id number] [facility] [id number] [address] [place] [phone] Jul, [place] [address] [address] [id number] [address] [place] [address] Jul, [place] [address] [id number] [address] [place] [address] Jul, Lumbago with sciatica, left side M54.42 ; Lumbago with sciatica, right side M54.41 and Other chronic pain G89.29 [place] [address] [facility] [id number] [address] [place] [address] Jul, [facility] [address] [id number] [address] [place] [address] Jul, [place] [id number] [id number] [address] [place] [address] Jun, [place] [address] [facility] [id number] [address] [place] [address] Jun, Lumbago with sciatica, right side M54.41 and Other chronic pain G89.29 [place] [address] [id number] [address] [place] [address] Jun, Cervicalgia M54.2 ; Lumbago with sciatica, unspecified side M54.40 and Other chronic pain G89.29 [place] [address] [id number] [address] [place] [address] 15 May, 2016 Pain in right knee M25.561 ; Pain in left knee M25.562 and Other chronic pain G89.29 [place] [address] [facility] [id number] [address] [place] [address] May, [place] [address] [id number] [address] [place] [address] Apr, Other chronic pain G89.29 an d Pain in right knee M25.561 [place] [address] [id number] [address] [place] [address] Apr, Pain in right knee M25.561 [place] [address] [facility] [id number] [address] [place] [address] Mar, [place] [address] [id number] [address] [place] [address] Mar, Mood disorder F39 and Contro lled type 2 diabetes mellitus without complication, without long-term current use of insulin E11.9 [place] [address] [id number] [address] [place] [address] Mar, Pain in right knee M25.561 ; Pain in left knee M25.562 ; Other chronic pain G89.29 ; Obstructive sleep apnea syndrome G47.33 ; Mood disorder F39 and Controlled type 2 diabetes mellitus without complication, without long- term current use of insulin E11.9 [facility] [address] [id number] [address] [place] [address] Mar, [facility] [address] [id number] [address] [place] [id number] Feb, Dental examination Z01.20 [facility] [address] [id number] [address] [place] [address] Feb, [facility] [address] [id number] [address] [place] [address] Feb, Osteoarthritis of right knee , unspecified osteoarthritis type M17.9 [facility] [address] [id number] [address] [place] [address] January, [facility] [address] [id number] [address] [place] [id number] January, Dental examination Z01.20 [facility] [address] [id number] [address] [place] [address] January, [facility] [address] [id number] [place] [id number] January, Dental examination Z01.20 an d Caries K02.9 [facility] [address] [id number] [address] [place] [address] Dec, Encounter for other preproce dural examination Z01.818 [facility] [address] [id number] [address] [place] [address] Dec, [facility] [address] [id number] [address] [place] [address] Dec, Knee pain M25.569 [facility] [address] [id number] [address] [place] [id number] 15 Dec, 2015 Pain in right knee M25.561 [place] [address] [id number] [address] [place] [address] Dec, [facility] [address] [facility] [id number] [address] [place] [id number] Dec, [facility] [address] [facility] [id number] [address] [place] [address] Dec, Encounter for immunization Z 23 [facility] [address] [facility] [id number] [address] [place] [address] Dec, [facility] [address] [facility] [id number] [address] [place] [id number] Dec, [facility] [address] [facility] [id number] [address] [place] [address] Nov, [facility] [address] [place] [id number] [address] [place] [address] Nov, Hypertension, benign I10 ; C ervicalgia M54.2 ; Pain in right knee M25.561 and Pain in left knee M25.562 [facility] [address] [place] [id number] [address] [place] [address] Oct, [facility] [address] [facility] [id number] [address] [place] [address] Oct, [facility] [address] [place] [id number] [address] [place] [address] Oct, Osteoarthritis of both knees M17.0 [facility] [address] [place] [id number] [address] [place] [address] 08 Oct, 2015 [facility] [address] [facility] [id number] [address] [place] [address] 08 Oct, 2015 Low back pain M54.5 [facility] [address] [facility] [id number] [address] [place] [address] 05 Oct, 2015 Low back pain M54.5 ; Sciati ca, unspecified side M54.30 ; Pain in right knee M25.561 ; Pain in left knee M25.562 ; Pain in right shoulder M25.511 and Pain in left shoulder M25.512 [place] [address] [id number] [address] [place] [address] Oct, [place] [address] [facility] [id number] [address] [place] [address] Sep, Pain in right hip M25.551 [place] [address] [facility] [id number] [address] [place] [address] Sep, Acute upper respiratory infe ction, unspecified J06.9 [place] [address] [id number] [address] [place] [address] Aug, Acute upper respiratory infe ction, unspecified J06.9 and Other viral agents as the cause of diseases classified elsewhere B97.89 [place] [address] [facility] [id number] [address] [place] [address] Jul, Arthritis M19.90 [place] [address] [facility] [id number] [address] [place] [address] Jun, Arthritis M19.90 ; Pain in r ight hip M25.551 ; Pain in left hip M25.552 ; Bilateral low back pain with sciatica, sciatica laterality unspecified M54.40 ; Neck pain M54.2 ; Upper back pain M54.9 and Knee pain, unspecified laterality M25.569 [place] [address] [facility] [id number] [address] [place] [address] May, Osteoarthritis of both knees 715.96 [place] [address] [facility] [id number] [address] [place] [address] May, Rash 782.1 [place] [address] [facility] [id number] [address] [place] [address] Apr, Lumbar strain 847.2 [place] [address] [facility] [id number] [address] [place] [address] Apr, Rash 782.1 [place] [address] [place] [id number] [address] [place] [address] Mar, Rash 782.1 [facility] [address] [id number] [address] [place] [address] Feb, Rash 782.1 ; Hemorrhoids 455 .6 and Constipation 564.00 [facility] [address] [id number] [address] [place] [id number] 04 Feb, 2015 Osteoarthritis of both knees 715.96 [facility] [address] [id number] [address] [place] [address] January, [facility] [address] [id number] [address] [place] [address] Dec, [facility] [address] [id number] [address] [place] [id number] Dec, [facility] [address] [id number] [address] [place] [phone] Dec, [facility] [address] [id number] [address] [place] [address] Nov, [facility] [address] [id number] [address] [place] [address] Nov, [facility] [address] [id number] [address] [place] [address] Nov, [facility] [address] [id number] [address] [place] [address] Nov, [facility] [address] [id number] [address] [place] [address] Nov, [facility] [address] [id number] [address] [place] [address] Nov, [facility] [address] [id number] [address] [place] [address] Oct, [facility] [address] [id number] [address] [place] [phone] Oct, [facility] [address] [id number] [address] [place] [address], [place] [address] Oct, 2014 [facility] [address] [id number] [address] [place] [address], [place] [address] Oct, 2014 [facility] [address] [id number] [address] [place] [address], [place] [address] Oct, 2014 [facility] [address] [id number] [address] [place] [address], [place] [address] Oct, 2014 [facility] [address] [id number] [address] [place] [address], [place] [address] Oct, 2014 [facility] [address] [id number] [address] [place] [address], [place] [address] Oct, 2014 [facility] [address] [id number] [address] [place] [address], [place] [address] Oct, [facility] [address] [id number] [address] [place] [address], [place] [address] Oct, [facility] [address] [id number] [address] [place] [address], [place] [address] Oct, [facility] [address] [id number] [address] [place] [address], [place] [address] Sep, [facility] [address] [id number] [address] [place] [address], [place] [address] Sep, [facility] [address] [id number] [address] [place] [address], [place] [id number] Sep, [facility] [address] [id number] [address] [place] [address] Sep, [facility] [address] [id number] [address] [place] [address], [place] [address] Sep, [facility] [address] [id number] [address] [place] [phone] Sep, [facility] [address] [id number] [address] [place] [address] Aug, [facility] [address] [id number] [address] [place] [address], [place] [address] Aug, [facility] [address] [id number] [address] [place] [address], [place] [address] Aug, [facility] [address] [id number] [address] [place] [address], [place] [address] Aug, [facility] [address] [id number] [address] [place] [address], [place] [address] Aug, [facility] [address] [id number] [address] [place] [address], [place] [address] Aug, [facility] [address] [id number] [address] [place] [address], [place] [address] Aug, [facility] [address] [id number] [address] [place] [address], [place] [address] Aug, [facility] [address] [id number] [address] [place] [address], [place] [address] Aug, [facility] [address] [id number] [address] [place] [address], [place] [address] Aug, [facility] [address] [id number] [address] [place] [address], [place] [id number] Jul, [facility] [address] [id number] [address] [place] [address], [place] [address] Jul, [facility] [address] [id number] [address] [place] [address], [place] [address] Jul, [facility] [address] [id number] [address] [place] [address], [place] [id number] Jul, [facility] [address] [id number] [address] [place] [address], [place] [address] Jun, [facility] [address] [id number] [address] [place] [address], [place] [id number] Jun, [facility] [address] [id number] [address] [place] [address], [place] [address] Jun, [facility] [address] [id number] [address] [place] [address], [place] [address] Jun, [facility] [address] [id number] [address] [place] [address], [place] [id number] Jun, [facility] [address] [id number] [address] [place] [address], [place] [address] Jun, [facility] [address] [id number] [address] [place] [address], [place] [address] Jun, [facility] [address] [id number] [address] [place] [address], [place] [address] Jun, [facility] [address] [id number] [address] [place] [address], [place] [address] May, [facility] [address] [id number] [address] [place] [address], [place] [address] 24 May, 2014 [facility] [address] [id number] [address] [place] [address], [place] [id number] 19 May, 2014 [facility] [address] [id number] [address] [place] [address], [place] [address] 19 May, 2014 [facility] [address] [id number] [address] [place] [address], [place] [id number] 15 May, 2014 [facility] [address] [id number] [address] [place] [address], [place] [address] 15 May, 2014 [facility] [address] [id number] [address] [place] [address], [place] [address] 15 May, 2014 [facility] [address] [id number] [address] [place] [address], [place] [address] 15 May, 2014 [facility] [address] [id number] [address] [place] [address], [place] [address] Apr, [facility] [address] [id number] [address] [place] [address], [place] [address] Apr, [facility] [address] [id number] [address] [place] [address], [place] [address] Apr, [facility] [address] [id number] [address] [place] [address], [place] [address] Apr, [facility] [address] [id number] [address] [place] [address], [place] [address] Apr, [facility] [address] [id number] [address] [place] [address], [place] [address] Apr, [facility] [address] [id number] [address] [place] [address], [place] [address] Apr, [facility] [address] [id number] [address] [place] [address], [place] [id number] Apr, [facility] [address] [id number] [address] [place] [address], [place] [address] Apr, [facility] [address] [id number] [address] [place] [address], [place] [address] Apr, [facility] [address] [id number] [address] [place] [address], [place] [address] Apr, [facility] [address] [id number] [address] [place] [address], [place] [address] Apr, [facility] [address] [id number] [address] [place] [address], [place] [address] Mar, [facility] [address] [id number] [address] [place] [address], [place] [address] Mar, [facility] [address] [id number] [address] [place] [address], [place] [address] Mar, [facility] [address] [id number] [address] [place] [address], [place] [address] Mar, [facility] [address] [id number] [address] [place] [address], [place] [address] Mar, [facility] [address] [id number] [address] [place] [address], [place] [address] Mar, [facility] [address] [id number] [facility] [place] [address] Feb, [facility] [address] [id number] [address] [place] [address], [place] [address] 18 Feb, 2014 [facility] [address] [id number] [address] [place] [address], [place] [address] Feb, [facility] [address] [id number] [address] [place] [address], [place] [address] 17 Feb, 2014 [facility] [address] [id number] [address] [place] [address], [place] [address] Feb, [facility] [address] [id number] [address] [place] [address], [place] [address] Feb, [facility] [address] [id number] [address] [place] [address], [place] [address] Feb, [facility] [address] [id number] [address] [place] [address], [place] [id number] Feb, [facility] [address] [id number] [address] [place] [address], [place] [id number] 05 Feb, 2014 [facility] [address] [id number] [address] [place] [address], [place] [id number] 05 Feb, 2014 [facility] [address] [id number] [address] [place] [address], [place] [address] Feb, [facility] [address] [id number] [address] [place] [address], [place] [address] Feb, [facility] [address] [id number] [address] [place] [address], [place] [address] Feb, [facility] [address] [id number] [address] [place] [address], [place] [address] Feb, [facility] [address] [id number] [address] [place] [address], [place] [address] January, [facility] [address] [id number] [facility] [place] [address] January, [facility] [address] [id number] [address] [place] [address], [place] [id number] January, [facility] [address] [id number] [address] [place] [address], [place] [address] January, [facility] [address] [id number] [address] [place] [address], [place] [address] January, [facility] [address] [id number] [address] [place] [address], [place] [address] January, [facility] [address] [id number] [address] [place] [address], [place] [address] Dec, [facility] [address] [id number] [address] [place] [address], [place] [id number] Dec, [facility] [address] [id number] [address] [place] [address], [place] [address] Dec, [facility] [address] [id number] [address] [place] [address], [place] [id number] Dec, [facility] [address] [id number] [address] [place] [address], [place] [id number] Dec, [facility] [address] [id number] [address] [place] [address], [place] [id number] Dec, [facility] [address] [id number] [address] [place] [address], [place] [id number] Dec, [facility] [address] [id number] [address] [place] [address], [place] [id number] Dec, [facility] [address] [id number] [address] [place] [address], [place] [id number] Nov, [facility] [address] [id number] [address] [place] [address], [place] [id number] Nov, [facility] [address] [id number] [address] [place] [address], [place] [id number] Nov, [facility] [address] [id number] [facility] [place] [id number] Nov, [facility] [address] [id number] [address] [place] [address], [place] [id number] Nov, [facility] [address] [id number] [address] [place] [address], [place] [id number] Nov, [facility] [address] [id number] [address] [place] [address], [place] [id number] Nov, [facility] [address] [id number] [address] [place] [address], [place] [id number] Nov, [facility] [address] [id number] [address] [place] [address], [place] [id number] Oct, [facility] [address] [id number] [address] [place] [address], [place] [id number] Oct, [facility] [address] [id number] [address] [place] [address], [place] [id number] Oct, [facility] [address] [id number] [address] [place] [address], [place] [id number] Oct, [facility] [address] [id number] [address] [place] [address], [place] [id number] Oct, [facility] [address] [id number] [address] [place] [address], [place] [id number] Oct, [facility] [address] [id number] [address] [place] [address], [place] [id number] Oct, [facility] [address] [id number] [address] [place] [address], [place] [id number] Oct, [facility] [address] [id number] [address] [place] [address], [place] [id number] Oct, [facility] [address] [id number] [address] [place] [address], [place] [id number] Oct, [facility] [address] [id number] [address] [place] [address], [place] [id number] 14 Sep, 2013 [facility] [address] [id number] [address] [place] [address], [place] [id number] 14 Sep, 2013 [facility] [address] [id number] [address] [place] [address], [place] [id number] 14 Sep, 2013 [facility] [address] [id number] [address] [place] [address], [place] [id number] Sep, [facility] [address] [id number] [address] [place] [address], [place] [id number] Sep, [facility] [address] [id number] [address] [place] [address], [place] [id number] Sep, [facility] [address] [id number] [address] [place] [address], [place] [id number] Aug, [facility] [address] [id number] [address] [place] [address], [place] [id number] Aug, [facility] [address] [id number] [address] [place] [address], [place] [id number] Aug, [facility] [address] [id number] [address] [place] [address], [place] [id number] Aug, [facility] [address] [id number] [address] [place] [address], [place] [id number] Aug, [facility] [address] [id number] [address] [place] [address], [place] [id number] Aug, [facility] [address] [id number] [address] [place] [address], [place] [id number] Aug, [facility] [address] [id number] [address] [place] [address], [place] [id number] Aug, [facility] [address] [id number] [address] [place] [address], [place] [id number] Jul, [facility] [address] [id number] [address] [place] [address], [place] [id number] Jul, [facility] [address] [id number] [address] [place] [address], [place] [id number] Jul, [facility] [address] [id number] [address] [place] [address], [place] [id number] Jul, [facility] [address] [id number] [address] [place] [address], [place] [id number] Jul, [facility] [address] [id number] [address] [place] [address], [place] [id number] Jul, [facility] [address] [id number] [address] [place] [address], [place] [id number] Jun, [facility] [address] [id number] [address] [place] [address], [place] [id number] Jun, [facility] [address] [id number] [address] [place] [address], [place] [id number] Jun, [facility] [address] [id number] [address] [place] [address], [place] [id number] May, [facility] [address] [id number] [address] [place] [address], [place] [id number] May, [facility] [address] [id number] [address] [place] [address], [place] [id number] May, [facility] [address] [id number] [address] [place] [address], [place] [id number] Apr, [facility] [address] [id number] [address] [place] [id number] Apr, [facility] [address] [id number] [address] [place] [address], [place] [id number] Apr, [facility] [address] [id number] [address] [place] [address], [place] [id number] Apr, [facility] [address] [id number] [address] [place] [address], [place] [id number] Mar, [facility] [address] [id number] [facility] [place] [address] Mar, [facility] [address] [id number] [address] [place] [address], [place] [id number] Mar, [facility] [address] [id number] [address] [place] [address], [place] [id number] Mar, [facility] [address] [id number] [address] [place] [address], [place] [id number] Feb, [facility] [address] [id number] [address] [place] [address], [place] [id number] Feb, [facility] [address] [id number] [address] [place] [address], [place] [id number] Feb, [facility] [address] [id number] [address] [place] [address], [place] [id number] Feb, [facility] [address] [id number] [address] [place] [address], [place] [id number] January, [facility] [address] [id number] [address] [place] [address], [place] [id number] January, [facility] [address] [id number] [address] [place] [address], [place] [id number] January, [facility] [address] [id number] [address] [place] [address], [place] [id number] Nov, [facility] [address] [id number] [address] [place] [address], [place] [id number] Nov, [facility] [address] [id number] [address] [place] [address], [place] [id number] Oct, [facility] [address] [id number] [address] [place] [address], [place] [id number] Oct, [facility] [address] [id number] [address] [place] [address], [place] [id number] Oct, [facility] [address] [id number] [address] [place] [address], [place] [id number] Oct, [facility] [address] [id number] [address] [place] [address], [place] [id number] Sep, [facility] [address] [id number] [address] [place] [address], [place] [id number] Sep, [facility] [address] [id number] [address] [place] [address], [place] [id number] Sep, [facility] [address] [id number] [address] [place] [address], [place] [id number] Aug, [facility] [address] [id number] [address] [place] [address], [place] [id number] Aug, [facility] [address] [id number] [address] [place] [address], [place] [id number] Aug, [facility] [address] [id number] [address] [place] [address], [place] [id number] Aug, [facility] [address] [id number] [address] [place] [address], [place] [id number] Aug, [facility] [address] [id number] [address] [place] [address], [place] [id number] Aug, [facility] [address] [id number] [address] [place] [address], [place] [id number] Jul, [facility] [address] [id number] [address] [place] [address], [place] [id number] Jul, [facility] [address] [id number] [address] [place] [id number] Jun, [facility] [address] [id number] [address] [place] [address], [place] [id number] Jun, [facility] [address] [id number] [address] [place] [address], [place] [id number] Jun, [facility] [address] [id number] [address] [place] [id number] Apr, [facility] [address] [id number] [address] [place] [id number] Apr, [facility] [address] [id number] [address] [place] [address], [place] [id number] Mar, [facility] [address] [id number] [address] [place] [address], [place] [id number] Mar, [facility] [address] [id number] [address] [place] [address], [place] [id number] Mar, [facility] [address] [id number] [address] [place] [address], [place] [id number] Mar, [facility] [address] [id number] [address] [place] [address], [place] [id number] Feb, [facility] [address] [id number] [address] [place] [address], [place] [id number] Feb, [facility] [address] [id number] [address] [place] [address], [place] [id number] Feb, [facility] [address] [id number] [address] [place] [address], [place] [id number] January, [facility] [address] [id number] [address] [place] [address], [place] [id number] January, [facility] [address] [id number] [address] [place] [address], [place] [id number] January, [facility] [address] [id number] [address] [place] [address], [place] [id number] January, [facility] [address] [id number] [address] [place] [address], [place] [id number] Dec, [facility] [address] [id number] [address] [place] [address], [place] [id number] Dec, [facility] [address] [id number] [address] [place] [address], [place] [id number] Nov, [facility] [address] [id number] [address] [place] [address], [place] [id number] Nov, [facility] [address] [id number] [address] [place] [address], [place] [id number] 16 Oct, 2011 [facility] [address] [id number] [address] [place] [address], [place] [id number] 15 Oct, 2011 [facility] [address] [id number] [address] [place] [address], [place] [id number] Sep, [facility] [address] [id number] [address] [place] [address], [place] [id number] Sep, [facility] [address] [id number] [address] [place] [address], [place] [id number] Sep, [facility] [address] [id number] [address] [place] [address], [place] [id number] Sep, [facility] [address] [id number] [address] [place] [address], [place] [id number] Aug, [facility] [address] [id number] [address] [place] [address], [place] [id number] Aug, [facility] [address] [id number] [address] [place] [address], [place] [id number] Aug, [facility] [address] [id number] [address] [place] [address], [place] [id number] Jul, [facility] [address] [id number] [address] [place] [address], [place] [id number] Aug, [facility] [address] [id number] [address] [place] [address], [place] [id number] Aug, [facility] [address] [id number] [address] [place] [address], [place] [id number] Aug, [facility] [address] [id number] [address] [place] [address], [place] [id number] Aug, [facility] [address] [id number] [address] [place] [address], [place] [id number] Jul, [facility] [address] [id number] [address] [place] [address], [place] [id number] Jul, [facility] [address] [facility] [id number] [address] [place] [id number] Jul, [facility] [address] [facility] [id number] [address] [place] [id number] Jun, [facility] [address] [facility] [id number] [address] [place] [id number] Jun, [facility] [address] [facility] [id number] [address] [place] [id number] Jun, [facility] [address] [facility] [id number] [address] [place] [id number] Apr, [facility] [address] [facility] [id number] [address] [place] [id number] Mar, IMMUNIZATIONS No Known Immunizations SOCIAL HISTORY [...]
--- OUTSIDE RECORDS SUMMARY | 2020-03-18 14:52 | XMS REPORT ---
Author Author George WAYNE Organization [facility] Address [address] [place] [address] Care Team Providers Care Disk Grinder Name Role Phone REYNA WAYNE Unavailable PROBLEMS Type Condition ICD9-CM Code FBU71-IY Code Onset Dates Condition S tatus SNOMED Code Problem Hypertension, benign I10 Active 03087224 Problem Other chronic pain G89.29 Active 8 0159213 Problem Lumbago with sciatica, unspecified side M54.40 Active 429618322 Problem Controlled type 2 diabetes m ellitus without complication, without long- term current use of insulin E11.9 Active 224300823 Problem Lumbago with sciatica, right side M54.41 Active 516079982 Problem Adjustment disorder with disturbance of emotion F4 3.29 Active 72893023 Problem MELE (obstructive sleep apnea) G47.33 Active 77275713 Problem Non morbid obesity E66.9 Active 4 60246610 Problem Hammer toe of left foot M20.42 Active 636655930 Problem Mood disorder F39 Active 053961 05 Problem Deformity of left foot M21.962 Active 431700321 Problem Lumbago with sciatica, left side M54.42 Active 470557715 Problem Erectile dysfunction due to diseases classified elsewhere N52.1 Active 760563888 Problem Obstructive sleep apnea syndrome G47.33 Active 39539380 Problem Type 2 diabetes mellitus wit h diabetic neuropathy, without long-term current use of insulin E11.40 Active 57901 006 Problem Essential hypertension I10 Active 84051672 ALLERGIES No Information ENCOUNTERS Encounter Location Date Diagnosis [facility] [address] [id number] [address] [place] [id number] January, [facility] [address] [id number] [address] [place] [address] Dec, Acute diffuse otitis externa of left ear H60.312 [facility] [address] [address] Nov, Viral URI J06.9 and Flu-like symptoms R68.89 [place] [address] [place] [address] Nov, Type 2 diabetes mellitus wit h diabetic neuropathy, without long- term current use of insulin E11.40 ; Family history of prostate cancer Z80.42 and Prostate cancer screening Z12.5 [place] [address] [address] Nov, [place] [address] [address] Sep, [place] [address] [address] Aug, [place] [address] [address] Jul, Lumbago with sciatica, unspe cified side M54.40 [place] [address] [address] Jun, Lumbago with sciatica, unspe cified side M54.40 [place] [address] [address] Jun, URI, acute J06.9 [place] [address] [address] May, Lumbago with sciatica, unspe cified side M54.40 [place] [address] [address] May, [address] [address] May, Type 2 diabetes mellitus wit h diabetic neuropathy, without long- term current use of insulin E11.40 and Hammer toe of left foot M20.42 [place] [address] [address] May, [facility] [address] [facility] [id number] [address] [place] [address] May, [facility] [address] [facility] [id number] [address] [place] [address] May, [facility] [address] [facility] [id number] [address] [place] [address] Apr, Lumbago with sciatica, unspe cified side M54.40 [facility] [address] [facility] [id number] [address] [place] [address] Apr, [facility] [address] [facility] [id number] [address] [place] [address] Apr, [address] [id number] [address] Apr, Hammer toe of left foot M20. 42 ; Chest pain R07.9 ; Preoperative examination Z01.818 and Morbid obesity E66.01 [facility] [address] [facility] [id number] [address] [place] [address] Apr, Morbid obesity E66.01 ; Bron chitis J40 and High risk medications (not anticoagulants) long-term use Z79.899 [facility] [address] [facility] [id number] [address] [place] [address] Apr, Lumbago with sciatica, unspe cified side M54.40 [facility] [address] [facility] [id number] [address] [place] [address] Apr, [facility] [address] [facility] [id number] [address] [place] [address] Mar, Lumbar neuritis M54.16 and M orbid obesity E66.01 [facility] [address] [facility] [id number] [address] [place] [address] Mar, [facility] [address] [facility] [id number] [address] [place] [address] Mar, [facility] [address] [id number] [address] [place] [address] Mar, Lumbago with sciatica, unspe cified side M54.40 [facility] [address] [facility] [id number] [address] [place] [address] Mar, Morbid obesity E66.01 ; Coug marco R05 ; 2+ pitting edema R60.9 and Controlled type 2 diabetes mellitus without complication, without long-term current use of insulin E11.9 [facility] [address] [id number] [address] [place] [address] Feb, [facility] [address] [id number] [address] [place] [address] Feb, Lumbago with sciatica, unspe cified side M54.40 [place] [address] [facility] [id number] [address] [place] [address] Feb, [facility] [address] [facility] [id number] [address] [place] [address] Feb, Controlled type 2 diabetes m ellitus without complication, without long-term current use of insulin E11.9 and Morbid obesity E66.01 [facility] [address] [id number] [address] [place] [address] January, Deformity of left foot M21.9 62 [facility] [address] [id number] [address] [place] [address] January, [facility] [address] [id number] [address] [place] [address] January, Lumbago with sciatica, unspe cified side M54.40 [facility] [address] [facility] [id number] [address] [place] [address] January, [facility] [address] [facility] [id number] [address] [place] [address] January, Lumbago with sciatica, unspe cified side M54.40 [place] [address] [facility] [id number] [address] [place] [address] January, [facility] [id number] [place] [address] January, Acute right-sided thoracic b ack pain M54.6 [place] [address] [place] [id number] [address] [place] [address] January, Acute right-sided thoracic b ack pain M54.6 [facility] [address] [id number] [address] [place] [address] January, Chest pain, unspecified type R07.9 ; Morbid obesity E66.01 and Scabies B86 [place] [address] [place] [id number] [place] [address] Dec, Lumbago with sciatica, unspe cified side M54.40 [place] [address] [place] [id number] [address] [place] [address] Dec, Toenail fungus B35.1 [place] [address] [place] [id number] [address] [place] [address] Dec, Toenail fungus B35.1 [place] [address] [place] [id number] [place] [address] Dec, Acute right-sided thoracic b ack pain M54.6 [place] [address] [place] [address] [id number] [place] [address] Dec, Lumbago with sciatica, unspe cified side M54.40 [place] [address] [place] [id number] [place] [address] Nov, Hammer toe of left foot M20. 42 ; Deformity of left foot M21.962 and Type 2 diabetes mellitus with diabetic neuropathy, without long-term current use of insulin E11.40 [facility] [address] [facility] [id number] [address] [place] [address] Nov, Acute right-sided thoracic b ack pain M54.6 ; Morbid obesity E66.01 and Rt flank pain R10.9 [place] [address] [address] Nov, Lumbago with sciatica, unspe cified side M54.40 [place] [address] [address] Oct, Lumbago with sciatica, unspe cified side M54.40 [place] [address] [address] Sep, Lumbago with sciatica, unspe cified side M54.40 [place] [address] [address] Sep, [place] [address] [address] Sep, BMI 40.0-44.9, adult Z68.41 ; Lumbago with sciatica, left side M54.42 ; Lumbago with sciatica, right side M54.41 and Other chronic pain G89.29 [place] [address] [address] Aug, Lumbago with sciatica, unspe cified side M54.40 [place] [address] [address] Aug, Type 2 diabetes mellitus wit h diabetic neuropathy, without long- term current use of insulin E11.40 ; Hammer toe of left foot M20.42 ; Hypertension, benign I10 and Frequent headaches R51 [place] [address] [address] Jul, Lumbago with sciatica, unspe cified side M54.40 [place] [address] [place] [id number] [place] [address] Jul, [place] [address] [place] [id number] [address] [place] [address] Jul, Essential hypertension I10 a nd Controlled type 2 diabetes mellitus without complication, without long-term current use of insulin E11.9 [place] [id number] [facility] [id number] [address] [place] [address] Jul, Essential hypertension I10 ; Controlled type 2 diabetes mellitus without complication, without long-term current use of insulin E11.9 and BMI 40.0-44.9, adult Z68.41 [place] [address] [facility] [id number] [address] [place] [address] Jul, Dysfunction of left eustachi an tube H69.82 [place] [address] [facility] [id number] [address] [place] [address] Jul, Lumbago with sciatica, unspe cified side M54.40 [facility] [id number] [place] [id number] Jun, Dental examination Z01.20 [place] [address] [place] [id number] [place] [address] Jun, Lumbago with sciatica, unspe cified side M54.40 and Encounter for immunization Z23 [place] [address] [place] [id number] [place] [address] Jun, Dysfunction of left eustachi an tube H69.82 [place] [id number] [facility] [id number] [place] [id number] Jun, Dental examination Z01.20 [facility] [address] [facility] [id number] [address] [place] [address] Jun, Other chronic pain G89.29 [facility] [address] [id number] [address] [place] [address] [id number] Jun, Dental examination Z01.20 [facility] [address] [facility] [id number] [address] [place] [address] Jun, [place] [address] [place] [id number] [address] [place] [address] Jun, Bronchitis J40 ; Dysfunction of left eustachian tube H69.82 and BMI 45.0-49.9, adult Z68.42 [place] [address] [place] [id number] [address] [place] [address] Jun, Lumbago with sciatica, unspe cified side M54.40 [place] [address] [place] [id number] [address] [place] [address] May, Type 2 diabetes mellitus wit h diabetic neuropathy, without long- term current use of insulin E11.40 and Hypertension, benign I10 [place] [address] [address] May, Lumbago with sciatica, unspe cified side M54.40 [facility] [address] [address] Apr, [place] [address] [address] Apr, Controlled type 2 diabetes m ellitus without complication, without long-term current use of insulin E11.9 ; Insect bite (nonvenomous), right ankle, initial encounter S90.561A ; Local infection of the skin and subcutaneous tissue, unspecified L08.9 ; Acute swimmer''s ear of left side H60.332 and BMI 45.0-49.9, adult Z68.42 [place] [address] [place] [id number] [address] [place] [address] Apr, Lumbago with sciatica, unspe cified side M54.40 [place] [address] [address] Mar, [place] [address] [address] Mar, Lumbago with sciatica, unspe cified side M54.40 [place] [address] [place] [address] 14 Feb, 2018 Lumbago with sciatica, unspe cified side M54.40 [facility] [id number] [place] [address] Feb, BMI 45.0-49.9, adult Z68.42 and Obstructive sleep apnea syndrome G47.33 [facility] [address] [place] [address] January, Lumbar neuritis M54.16 [facility] [address] [place] [id number] [place] [address] January, Lumbago with sciatica, unspe cified side M54.40 [facility] [address] [id number] [place] [address] Dec, Controlled type 2 diabetes m ellitus without complication, without long-term current use of insulin E11.9 ; Erectile dysfunction due to diseases classified elsewhere N52.1 and Mood disorder F39 [facility] [address] [place] [address] Dec, Lumbago with sciatica, unspe cified side M54.40 [facility] [address] [id number] [place] [address] Dec, Obstructive sleep apnea synd luis G47.33 [facility] [address] [id number] [place] [address] Nov, Lumbago with sciatica, unspe cified side M54.40 ; Hypertension, benign I10 and Mood disorder F39 [facility] [address] [facility] [id number] [address] [place] [address] Nov, Other chronic pain G89.29 [facility] [address] [facility] [id number] [address] [place] [address] Nov, Lumbago with sciatica, unspe cified side M54.40 [facility] [address] [facility] [id number] [address] [place] [address] [id number] Nov, Dental examination Z01.20 [facility] [address] [id number] [address] [place] [address] Oct, [facility] [address] [id number] [address] [place] [address] Oct, Lumbago with sciatica, unspe cified side M54.40 [facility] [address] [id number] [address] [place] [address] Oct, Lumbago with sciatica, unspe cified side M54.40 [facility] [address] [id number] [address] [place] [address] Oct, [facility] [address] [facility] [id number] [address] [place] [address] Oct, [facility] [address] [facility] [id number] [address] [place] [address] [id number] Oct, Dental examination Z01.20 [facility] [address] [id number] [address] [place] [address] Oct, [facility] [address] [facility] [id number] [address] [place] [address] Oct, Pain in right knee M25.561 [facility] [address] [id number] [address] [place] [address] Sep, [facility] [address] [facility] [id number] [address] [place] [address] Sep, Other chronic pain G89.29 [facility] [address] [id number] [address] [place] [address] Sep, Lumbago with sciatica, unspe cified side M54.40 [facility] [address] [id number] [address] [place] [address] Sep, [facility] [address] [facility] [id number] [address] [place] [address] Sep, Viral URI J06.9 and BMI 45.0 -49.9, adult Z68.42 [facility] [address] [address] Aug, Foreign body hand S60.559A a nd BMI 45.0-49.9, adult Z68.42 [place] [address] [address] Aug, [place] [address] [address] Aug, Lumbago with sciatica, unspe cified side M54.40 [place] [address] [address] Aug, Vertigo R42 ; Dysfunction of both eustachian tubes H69.83 ; Low back pain M54.5 and Other chronic pain G89.29 [facility] [address] [address] Aug, Dizziness R42 and Acute bila teral otitis media H66.93 [place] [address] [address] Aug, Lumbago with sciatica, unspe cified side M54.40 [facility] [address] [place] [id number] [address] [place] [address] [id number] Jul, Dental examination Z01.20 [place] [address] [place] [id number] [address] [place] [address] Jul, [place] [address] [address] Jul, [place] [address] [address] Jul, Dysfunction of both eustachi an tubes H69.83 [place] [address] [address] Jul, Controlled type 2 diabetes m ellitus without complication, without long-term current use of insulin E11.9 [facility] [address] [facility] [id number] [address] [place] [address] Jul, Controlled type 2 diabetes m ellitus without complication, without long-term current use of insulin E11.[address] [facility] [address] [id number] [address] [place] [address] Jul, Dizziness R42 and BMI 40.0-4 4.9, adult Z68.41 [facility] [address] [id number] [address] [place] [address] Jul, Controlled type 2 diabetes m ellitus without complication, without long-term current use of insulin E11.9 [place] [address] [id number] [address] [place] [address] Jul, Lumbago with sciatica, unspe cified side M54.40 [facility] [id number] [place] [address] [id number] Jul, Dental examination Z01.20 [facility] [address] [id number] [address] [place] [address] Jun, [facility] [address] [id number] [place] [address] [id number] Jun, Dental examination Z01.20 [place] [address] [id number] [address] [place] [address] Jun, Controlled type 2 diabetes m ellitus without complication, without long-term current use of insulin E11.9 [facility] [address] [id number] [address] [place] [address] Jun, Lumbago with sciatica, unspe cified side M54.40 [facility] [address] [id number] [address] [place] [id number] May, Dental examination Z01.20 [facility] [address] [id number] [address] [place] [address] May, Controlled type 2 diabetes m ellitus without complication, without long-term current use of insulin E11.9 [facility] [address] [id number] [address] [place] [address] [id number] 19 May, 2017 Dental examination Z01.20 [facility] [address] [id number] [address] [place] [address] 18 May, 2017 Bronchitis J40 ; Dry mouth R 68.2 ; Non morbid obesity E66.9 and Controlled type 2 diabetes mellitus without complication, without long-term current use of insulin E11.9 [facility] [address] [id number] [address] [place] [address] 16 May, 2017 Encounter for immunization Z 23 [facility] [address] [id number] [address] [place] [id number] 07 May, 2017 Lumbago with sciatica, unspe cified side M54.40 [facility] [address] [id number] [address] [place] [address] 05 May, 2017 [facility] [address] [id number] [address] [place] [address] [id number] Apr, Dental examination Z01.20 [facility] [address] [id number] [address] [place] [address] Apr, Lumbago with sciatica, unspe cified side M54.40 [facility] [address] [id number] [address] [place] [address] Mar, Lumbago with sciatica, left side M54.42 [facility] [address] [id number] [address] [place] [address] Mar, [facility] [address] [id number] [address] [place] [address] Mar, Lumbar neuritis M54.16 [facility] [address] [id number] [address] [place] [id number] Mar, [facility] [address] [place] [id number] [address] [place] [address] [id number] Mar, Dental examination Z01.20 [place] [address] [facility] [id number] [address] [place] [id number] Mar, MELE (obstructive sleep apnea ) G47.33 ; Neuropathy involving both lower extremities G57.93 and Frequent headaches R51 [place] [address] [id number] [address] [place] [phone] Mar, Lumbago with sciatica, unspe cified side M54.40 [place] [address] [id number] [address] [place] [id number] Feb, Lumbago with sciatica, unspe cified side M54.40 and Controlled type 2 diabetes mellitus without complication, without long-term current use of insulin E11.9 [place] [address] [address] [facility] [id number] [address] [place] [id number] January, Hypertension, benign I10 and Bilateral low back pain with sciatica, sciatica laterality unspecified M54.40 [place] [address] [id number] [address] [place] [id number] January, Hypertension, benign I10 ; L umbago with sciatica, unspecified side M54.40 ; Other chronic pain G89.29 and Controlled type 2 diabetes mellitus without complication, without long-term current use of insulin E11.9 [place] [address] [address] [facility] [id number] [address] [place] [id number] January, Lumbar neuritis M54.16 [place] [address] [id number] [address] [place] [id number] January, [place] [address] [facility] [id number] [address] [place] [id number] Dec, Lumbago with sciatica, right side M54.41 and Lumbar neuritis M54.16 [place] [address] [address] [facility] [id number] [address] [place] [phone] Dec, Lumbar neuritis M54.16 [place] [address] [address] [place] [id number] [address] [place] [phone] Dec, Lumbar neuritis M54.16 [place] [address] [address] [facility] [place] [id number] [address] [place] [phone] 16 Nov, 2016 Lumbar neuritis M54.16 ; Lum bago with sciatica, right side M54.41 ; Controlled type 2 diabetes mellitus without complication, without long-term current use of insulin E11.9 and Rash and nonspecific skin eruption R21 [place] [address] [address] [place] [id number] [address] [place] [id number] Nov, Lumbar neuritis M54.16 and P alexi romany L23.7 [place] [address] [address] [place] [id number] [place] [phone] 16 Oct, 2016 Lumbar neuritis M54.16 ; Cou ghing R05 and Mood disorder F39 [place] [address] [address] [place] [id number] [address] [place] [phone] Sep, Lumbago with sciatica, right side M54.41 [place] [address] [place] [id number] [place] [phone] Sep, Adjustment disorder with dis turbance of emotion F43.29 and Pain management R52 [place] [address] [place] [id number] [address] [place] [phone] Sep, [place] [address] [place] [id number] [address] [place] [phone] Sep, [place] [address] [place] [id number] [address] [place] [phone] Sep, Controlled type 2 diabetes evens reyna without complication, without long-term current use of insulin E11.9 and Lumbago with sciatica, unspecified side M54.40 [place] [address] [place] [id number] [address] [place] [address] Aug, Controlled type 2 diabetes evens reyna without complication, without long-term current use of insulin E11.9 ; Pain in right knee M25.561 ; Pain in left knee M25.562 ; Other chronic pain G89.29 ; Lumbago with sciatica, right side M54.41 ; Neck pain M54.2 and Encounter for immunization Z23 [facility] [address] [id number] [address] [place] [phone] Jul, [facility] [address] [id number] [address] [place] [phone] Jul, Controlled type 2 diabetes evens reyna without complication, without long-term current use of insulin E11.9 [facility] [address] [id number] [address] [place] [phone] Jul, [facility] [address] [id number] [address] [place] [address] Jul, [facility] [address] [id number] [address] [place] [phone] Jul, Lumbago with sciatica, left side M54.42 ; Lumbago with sciatica, right side M54.41 and Other chronic pain G89.29 [facility] [address] [id number] [address] [place] [phone] Jul, [facility] [address] [id number] [address] [place] [phone] Jul, [facility] [address] [id number] [address] [place] [phone] Jun, [facility] [address] [id number] [address] [place] [phone] Jun, Lumbago with sciatica, right side M54.41 and Other chronic pain G89.29 [facility] [address] [id number] [address] [place] [address] Jun, Cervicalgia M54.2 ; Lumbago with sciatica, unspecified side M54.40 and Other chronic pain G89.29 [facility] [address] [id number] [address] [place] [id number] 15 May, 2016 Pain in right knee M25.561 ; Pain in left knee M25.562 and Other chronic pain G89.29 [facility] [address] [id number] [address] [place] [phone] 14 May, 2016 [facility] [address] [id number] [address] [place] [id number] Apr, Other chronic pain G89.29 an d Pain in right knee M25.561 [facility] [address] [id number] [address] [place] [address] Apr, Pain in right knee M25.561 [facility] [address] [id number] [address] [place] [phone] Mar, [facility] [address] [id number] [address] [place] [phone] Mar, Mood disorder F39 and Contro lled type 2 diabetes mellitus without complication, without long-term current use of insulin E11.9 [facility] [address] [id number] [address] [place] [address] Mar, Pain in right knee M25.561 ; Pain in left knee M25.562 ; Other chronic pain G89.29 ; Obstructive sleep apnea syndrome G47.33 ; Mood disorder F39 and Controlled type 2 diabetes mellitus without complication, without long- term current use of insulin E11.9 [facility] [address] [id number] [address] [place] [id number] Mar, [facility] [address] [id number] [address] [place] [id number] Feb, Dental examination Z01.20 [facility] [address] [id number] [address] [place] [phone] Feb, [facility] [address] [id number] [address] [place] [phone] Feb, Osteoarthritis of right knee , unspecified osteoarthritis type M17.9 [facility] [address] [id number] [address] [place] [phone] January, [facility] [address] [id number] [address] [place] [id number] January, Dental examination Z01.20 [facility] [address] [id number] [address] [place] [id number] January, [facility] [address] [id number] [address] [place] [id number] January, Dental examination Z01.20 an d Caries K02.9 [facility] [address] [id number] [address] [place] [id number] Dec, Encounter for other preproce dural examination Z01.818 [facility] [address] [id number] [address] [place] [id number] Dec, [facility] [address] [id number] [address] [place] [address] Dec, Knee pain M25.569 [facility] [address] [id number] [address] [place] [id number] 15 Dec, 2015 Pain in right knee M25.561 [facility] [address] [id number] [address] [place] [id number] 14 Dec, 2015 [facility] [address] [id number] [address] [place] [phone] Dec, [facility] [address] [id number] [address] [place] [id number] Dec, Encounter for immunization Z 23 [facility] [address] [id number] [address] [place] [phone] Dec, [facility] [address] [id number] [address] [place] [id number] Dec, [facility] [address] [id number] [address] [place] [phone] Nov, [facility] [address] [id number] [address] [place] [id number] Nov, Hypertension, benign I10 ; C ervicalgia M54.2 ; Pain in right knee M25.561 and Pain in left knee M25.562 [place] [id number] [facility] [id number] [address] [place] [phone] Oct, [facility] [address] [facility] [id number] [address] [place] [phone] Oct, [facility] [address] [address] [id number] [place] [phone] Oct, Osteoarthritis of both knees M17.0 [place] [address] [place] [address] [id number] [place] [phone] Oct, [place] [address] [place] [id number] [place] [phone] Oct, Low back pain M54.5 [place] [address] [place] [id number] [place] [address] Oct, Low back pain M54.5 ; Sciati ca, unspecified side M54.30 ; Pain in right knee M25.561 ; Pain in left knee M25.562 ; Pain in right shoulder M25.511 and Pain in left shoulder M25.512 [place] [address] [place] [id number] [address] [place] [id number] Oct, [place] [address] [place] [id number] [address] [place] [id number] Sep, Pain in right hip M25.551 [place] [address] [place] [id number] [address] [place] [id number] Sep, Acute upper respiratory infe ction, unspecified J06.9 [place] [address] [place] [id number] [address] [place] [phone] Aug, Acute upper respiratory infe ction, unspecified J06.9 and Other viral agents as the cause of diseases classified elsewhere B97.89 [facility] [address] [id number] [address] [place] [id number] Jul, Arthritis M19.90 [facility] [address] [id number] [address] [place] [id number] Jun, Arthritis M19.90 ; Pain in r ight hip M25.551 ; Pain in left hip M25.552 ; Bilateral low back pain with sciatica, sciatica laterality unspecified M54.40 ; Neck pain M54.2 ; Upper back pain M54.9 and Knee pain, unspecified laterality M25.569 [facility] [address] [id number] [address] [place] [address] May, Osteoarthritis of both knees 715.96 [facility] [address] [id number] [address] [place] [id number] May, Rash 782.1 [place] [address] [facility] [id number] [address] [place] [phone] Apr, Lumbar strain 847.2 [facility] [address] [id number] [address] [place] [phone] Apr, Rash 782.1 [facility] [address] [facility] [id number] [address] [place] [phone] Mar, Rash 782.1 [facility] [address] [facility] [id number] [address] [place] [phone] Feb, Rash 782.1 ; Hemorrhoids 455 .6 and Constipation 564.00 [facility] [address] [id number] [address] [place] [phone] Feb, Osteoarthritis of both knees 715.96 [facility] [address] [id number] [address] [place] [id number] January, [facility] [address] [facility] [id number] [address] [place] [id number] Dec, [facility] [address] [id number] [address] [place] [id number] 14 Dec, 2014 [facility] [address] [id number] [address] [place] [address], [place] [address] 13 Dec, 2014 [facility] [address] [id number] [address] [place] [address], [place] [address] 18 Nov, 2014 [facility] [address] [id number] [address] [place] [address], [place] [address] 18 Nov, 2014 [facility] [address] [id number] [address] [place] [address], [place] [address] 18 Nov, 2014 [facility] [address] [id number] [address] [place] [address], [place] [address] 18 Nov, 2014 [facility] [address] [id number] [address] [place] [address], [place] [address] Nov, [facility] [address] [id number] [address] [place] [address], [place] [address] Nov, [facility] [address] [id number] [address] [place] [address], [place] [address] Oct, [facility] [address] [id number] [address] [place] [address], [place] [phone] Oct, [facility] [address] [id number] [address] [place] [address], [place] [address] Oct, [facility] [address] [id number] [address] [place] [address], [place] [address] Oct, 2014 [facility] [address] [id number] [address] [place] [address], [place] [address] Oct, 2014 [facility] [address] [id number] [address] [place] [address], [place] [address] Oct, 2014 [facility] [address] [id number] [address] [place] [phone] Oct, 2014 [facility] [address] [id number] [address] [place] [id number] Oct, [facility] [address] [id number] [address] [place] [address], [place] [address] Oct, 2014 [facility] [address] [id number] [address] [place] [address], [place] [address] Oct, [facility] [address] [id number] [address] [place] [address], [place] [address] Oct, [facility] [address] [id number] [address] [place] [address], [place] [address] Sep, [facility] [address] [id number] [address] [place] [address], [place] [address] Sep, [facility] [address] [id number] [address] [place] [address], [place] [address] Sep, [facility] [address] [id number] [address] [place] [address], [place] [address] Sep, [facility] [address] [id number] [address] [place] [address], [place] [address] Sep, [facility] [address] [id number] [address] [place] [address], [place] [address] Sep, [facility] [address] [id number] [address] [place] [address], [place] [address] Aug, [facility] [address] [id number] [address] [place] [address], [place] [address] Aug, [facility] [address] [id number] [address] [place] [address], [place] [address] Aug, [facility] [address] [id number] [address] [place] [address], [place] [address] Aug, [facility] [address] [id number] [address] [place] [address], [place] [address] Aug, [facility] [address] [id number] [address] [place] [address], [place] [address] Aug, [facility] [address] [id number] [address] [place] [address], [place] [address] 05 Aug, 2014 [facility] [address] [id number] [address] [place] [address], [place] [address] Aug, [facility] [address] [id number] [address] [place] [address], [place] [address] Aug, [facility] [address] [id number] [address] [place] [address], [place] [address] Aug, [facility] [address] [id number] [address] [place] [address], [place] [address] Jul, [facility] [address] [id number] [address] [place] [address], [place] [address] Jul, [facility] [address] [id number] [address] [place] [address], [place] [address] Jul, [facility] [address] [id number] [address] [place] [address], [place] [address] Jul, [facility] [address] [id number] [address] [place] [address], [place] [address] Jun, [facility] [address] [id number] [address] [place] [address], [place] [address] Jun, [facility] [address] [id number] [address] [place] [address], [place] [address] Jun, [facility] [address] [id number] [address] [place] [address], [place] [address] Jun, [facility] [address] [id number] [address] [place] [address], [place] [address] Jun, [facility] [address] [id number] [address] [place] [address], [place] [address] Jun, [facility] [address] [id number] [address] [place] [address], [place] [address] Jun, [facility] [address] [id number] [address] [place] [phone] Jun, [facility] [address] [id number] [facility] [place] [address] 24 May, 2013 [facility] [address] [id number] [address] [place] [address], [place] [address] 24 May, 2014 [facility] [address] [id number] [address] [place] [address], [place] [address] 19 May, 2014 [facility] [address] [id number] [address] [place] [address], [place] [address] 19 May, 2014 [facility] [address] [id number] [address] [place] [address], [place] [address] 15 May, 2014 [facility] [address] [id number] [address] [place] [address], [place] [address] 15 May, 2014 [facility] [address] [id number] [address] [place] [address], [place] [address] 15 May, 2014 [facility] [address] [id number] [address] [place] [address], [place] [address] May, [facility] [address] [id number] [address] [place] [address], [place] [address] Apr, [facility] [address] [id number] [address] [place] [address], [place] [address] Apr, [facility] [address] [id number] [address] [place] [address], [place] [address] Apr, [facility] [address] [id number] [address] [place] [address], [place] [address] Apr, [facility] [address] [id number] [address] [place] [address], [place] [address] Apr, [facility] [address] [id number] [address] [place] [address], [place] [address] Apr, [facility] [address] [id number] [address] [place] [address], [place] [address] Apr, [facility] [address] [id number] [address] [place] [address], [place] [address] Apr, [facility] [address] [id number] [address] [place] [address], [place] [address] Apr, [facility] [address] [id number] [address] [place] [address], [place] [address] Apr, [facility] [address] [id number] [address] [place] [address], [place] [address] Apr, [facility] [address] [id number] [address] [place] [address], [place] [address] Apr, [facility] [address] [id number] [address] [place] [address], [place] [address] Mar, [facility] [address] [id number] [address] [place] [address], [place] [address] Mar, [facility] [address] [id number] [address] [place] [address], [place] [address] Mar, [facility] [address] [id number] [address] [place] [address], [place] [address] Mar, [facility] [address] [id number] [address] [place] [address], [place] [address] Mar, [facility] [address] [id number] [address] [place] [address], [place] [address] Mar, [facility] [address] [id number] [address] [place] [address], [place] [address] Feb, [facility] [address] [id number] [address] [place] [address], [place] [address] Feb, [facility] [address] [id number] [address] [place] [address], [place] [address] Feb, [facility] [address] [id number] [address] [place] [address], [place] [address] Feb, [facility] [address] [id number] [address] [place] [address], [place] [address] Feb, [facility] [address] [id number] [facility] [place] [address] 16 Feb, 2014 [facility] [address] [id number] [address] [place] [address], [place] [address] Feb, [facility] [address] [id number] [address] [place] [address], [place] [address] Feb, [facility] [address] [id number] [address] [place] [address], [place] [address] Feb, [facility] [address] [id number] [address] [place] [address], [place] [address] Feb, [facility] [address] [id number] [address] [place] [address], [place] [address] Feb, [facility] [address] [id number] [address] [place] [address], [place] [address] Feb, [facility] [address] [id number] [address] [place] [address], [place] [address] Feb, [facility] [address] [id number] [address] [place] [address], [place] [address] Feb, [facility] [address] [id number] [address] [place] [address], [place] [address] January, [facility] [address] [id number] [address] [place] [address], [place] [address] January, [facility] [address] [id number] [address] [place] [address], [place] [address] January, [facility] [address] [id number] [address] [place] [address], [place] [address] January, [facility] [address] [id number] [address] [place] [address], [place] [address] January, [facility] [address] [id number] [address] [place] [address], [place] [address] January, [facility] [address] [id number] [address] [place] [address], [place] [address] Dec, [facility] [address] [id number] [facility] [place] [address] Dec, [facility] [address] [id number] [address] [place] [address], [place] [address] Dec, [facility] [address] [id number] [address] [place] [address], [place] [address] Dec, [facility] [address] [id number] [address] [place] [address], [place] [address] Dec, [facility] [address] [id number] [address] [place] [address], [place] [address] Dec, [facility] [address] [id number] [address] [place] [address], [place] [address] Dec, [facility] [address] [id number] [address] [place] [address], [place] [address] Dec, [facility] [address] [id number] [address] [place] [address], [place] [address] Nov, [facility] [address] [id number] [address] [place] [address], [place] [address] Nov, [facility] [address] [id number] [address] [place] [address], [place] [address] Nov, [facility] [address] [id number] [address] [place] [address], [place] [address] Nov, [facility] [address] [id number] [address] [place] [address], [place] [address] Nov, [facility] [address] [id number] [address] [place] [address], [place] [address] Nov, [facility] [address] [id number] [address] [place] [address], [place] [address] Nov, [facility] [address] [id number] [address] [place] [address], [place] [address] Nov, [facility] [address] [id number] [address] [place] [address], [place] [address] Oct, [facility] [address] [id number] [address] [place] [address], [place] [address] Oct, [facility] [address] [id number] [address] [place] [address], [place] [address] Oct, [facility] [address] [id number] [address] [place] [address], [place] [address] Oct, [facility] [address] [id number] [address] [place] [address], [place] [address] Oct, [facility] [address] [id number] [address] [place] [address], [place] [address] Oct, [facility] [address] [id number] [address] [place] [address], [place] [address] Oct, [facility] [address] [id number] [address] [place] [address], [place] [address] Oct, [facility] [address] [id number] [address] [place] [address], [place] [address] Oct, [facility] [address] [id number] [address] [place] [address], [place] [address] Oct, [facility] [address] [id number] [address] [place] [address], [place] [address] Sep, [facility] [address] [id number] [address] [place] [address], [place] [address] Sep, [facility] [address] [id number] [address] [place] [address], [place] [address] Sep, [facility] [address] [id number] [address] [place] [address], [place] [address] Sep, [facility] [address] [id number] [address] [place] [address], [place] [address] Sep, [facility] [address] [id number] [address] [place] [address], [place] [address] Sep, [facility] [address] [id number] [address] [place] [address], [place] [address] Aug, [facility] [address] [id number] [address] [place] [address], [place] [address] Aug, [facility] [address] [id number] [address] [place] [address], [place] [address] Aug, [facility] [address] [id number] [address] [place] [address], [place] [address] Aug, [facility] [address] [id number] [address] [place] [address], [place] [address] Aug, [facility] [address] [id number] [address] [place] [address], [place] [address] Aug, [facility] [address] [id number] [address] [place] [address], [place] [address] Aug, [facility] [address] [id number] [address] [place] [address], [place] [address] Aug, [facility] [address] [id number] [address] [place] [address], [place] [address] Jul, [facility] [address] [id number] [address] [place] [address], [place] [address] Jul, [facility] [address] [id number] [place] [address], [place] [address] Jul, [facility] [address] [id number] [address] [place] [address], [place] [address] Jul, [facility] [address] [id number] [address] [place] [address], [place] [address] Jul, [facility] [address] [id number] [address] [place] [address], [place] [address] Jul, [facility] [address] [id number] [address] [place] [address], [place] [address] Jun, [facility] [address] [id number] [address] [place] [address] [place] [address] Jun, [facility] [address] [id number] [address] [place] [address], [place] [address] Jun, [facility] [address] [id number] [address] [place] [address], [place] [address] May, [facility] [address] [id number] [address] [place] [address], [place] [address] May, [facility] [address] [id number] [address] [place] [address], [place] [address] May, [facility] [address] [id number] [address] [place] [address], [place] [address] Apr, [facility] [address] [id number] [address] [place] [address], [place] [address] Apr, [facility] [address] [id number] [address] [place] [address], [place] [address] Apr, [facility] [address] [id number] [address] [place] [address], [place] [address] Apr, [facility] [address] [id number] [address] [place] [address], [place] [address] Mar, [facility] [address] [id number] [address] [place] [address], [place] [address] Mar, [facility] [address] [id number] [address] [place] [address], [place] [address] Mar, [facility] [address] [id number] [address] [place] [address], [place] [address] Mar, [facility] [address] [id number] [address] [place] [address], [place] [address] Feb, [facility] [address] [id number] [address] [place] [address], [place] [address] Feb, [facility] [address] [id number] [address] [place] [address], [place] [address] Feb, [facility] [address] [id number] [address] [place] [address], [place] [address] Feb, [facility] [address] [id number] [address] [place] [address], [place] [address] January, [facility] [address] [id number] [address] [place] [address], [place] [address] January, [facility] [address] [id number] [address] [place] [address], [place] [address] January, [facility] [address] [id number] [address] [place] [address], [place] [address] Nov, [facility] [address] [id number] [address] [place] [address], [place] [address] Nov, [facility] [address] [id number] [address] [place] [address], [place] [address] Oct, [facility] [address] [id number] [address] [place] [address], [place] [address] Oct, [facility] [address] [id number] [address] [place] [address], [place] [address] Oct, [facility] [address] [id number] [address] [place] [address], [place] [address] Oct, [facility] [address] [id number] [address] [place] [address], [place] [address] Sep, [facility] [address] [id number] [address] [place] [address], [place] [address] Sep, [facility] [address] [id number] [address] [place] [address], [place] [address] Sep, [facility] [address] [id number] [address] [place] [address], [place] [address] Aug, [facility] [address] [id number] [address] [place] [address], [place] [address] Aug, [facility] [address] [id number] [address] [place] [address], [place] [address] Aug, [facility] [address] [id number] [address] [place] [address], [place] [address] Aug, [facility] [address] [id number] [address] [place] [address], [place] [address] Aug, [facility] [address] [id number] [address] [place] [address], [place] [address] Aug, [facility] [address] [id number] [address] [place] [address], [place] [address] Jul, [facility] [address] [id number] [address] [place] [address], [place] [address] Jul, [facility] [address] [id number] [address] [place] [address], [place] [address] Jun, [facility] [address] [id number] [address] [place] [address], [place] [address] Jun, [facility] [address] [id number] [address] [place] [address], [place] [address] Jun, [facility] [address] [id number] [address] [place] [address], [place] [address] Apr, [facility] [address] [id number] [address] [place] [address], [place] [address] Apr, [facility] [address] [id number] [address] [place] [address], [place] [address] Mar, [facility] [address] [id number] [address] [place] [address] Mar, [facility] [address] [id number] [address] [place] [address], [place] [address] Mar, [facility] [address] [id number] [address] [place] [address], [place] [address] Mar, [facility] [address] [id number] [address] [place] [address], [place] [address] Feb, [facility] [address] [id number] [address] [place] [address], [place] [address] Feb, [facility] [address] [id number] [address] [place] [address], [place] [address] Feb, [facility] [address] [id number] [address] [place] [address], [place] [address] January, [facility] [address] [id number] [address] [place] [address], [place] [address] January, [facility] [address] [id number] [address] [place] [address], [place] [address] January, [facility] [address] [id number] [address] [place] [address], [place] [address] January, [facility] [address] [id number] [address] [place] [address], [place] [address] Dec, [facility] [address] [id number] [address] [place] [address], [place] [address] Dec, [facility] [address] [id number] [address] [place] [address], [place] [address] Nov, [facility] [address] [id number] [address] [place] [address], [place] [address] Nov, [facility] [address] [id number] [address] [place] [address], [place] [address] 16 Oct, 2011 [facility] [address] [id number] [address] [place] [address], [place] [address] Oct, [facility] [address] [id number] [address] [place] [address], [place] [address] Sep, [facility] [address] [id number] [address] [place] [address], [place] [address] Sep, [facility] [address] [id number] [address] [place] [address], [place] [address] Sep, [facility] [address] [id number] [address] [place] [address], [place] [address] Sep, [facility] [address] [id number] [address] [place] [address], [place] [address] 16 Aug, 2011 [facility] [address] [id number] [address] [place] [address], [place] [address] 16 Aug, 2011 [facility] [address] [id number] [address] [place] [address], [place] [address] Aug, [facility] [address] [id number] [address] [place] [address], [place] [address] Jul, [facility] [address] [id number] [address] [place] [address], [place] [address] Aug, [facility] [address] [id number] [address] [place] [address], [place] [address] Aug, [facility] [address] [id number] [address] [place] [address], [place] [address] Aug, [facility] [address] [id number] [address] [place] [address], [place] [address] Aug, [facility] [address] [id number] [address] [place] [address], [place] [address] Jul, [facility] [address] [id number] [address] [place] [address], [place] [address] Jul, [facility] [address] [id number] [address] [place] [address], [place] [address] Jul, [facility] [address] [id number] [address] [place] [id number] Jun, [facility] [address] [id number] [address] [place] [address], [place] [address] Jun, [facility] [address] [id number] [address] [place] [address], [place] [address] Jun, [facility] [address] [id number] [address] [place] [address], [place] [address] Apr, [facility] [address] [id number] [address] [place] [address] Mar, IMMUNIZATIONS No Known Immunizations SOCIAL HISTORY [...]
--- OUTSIDE RECORDS SUMMARY | 2020-03-18 14:53 | XMS REPORT ---
Author Author George WAYNE Organization [facility] Address [address] [place] [address] Care Team Providers Care Designer Writer Name Role Phone REYNA WAYNE Unavailable PROBLEMS Type Condition ICD9-CM Code FDM19-RW Code Onset Dates Condition S tatus SNOMED Code Problem Hypertension, benign I10 Active 64127959 Problem Other chronic pain G89.29 Active 8 1848485 Problem Lumbago with sciatica, unspecified side M54.40 Active 842624323 Problem Controlled type 2 diabetes m ellitus without complication, without long- term current use of insulin E11.9 Active 916466034 Problem Lumbago with sciatica, right side M54.41 Active 631403629 Problem Adjustment disorder with disturbance of emotion F4 3.29 Active 21363682 Problem MELE (obstructive sleep apnea) G47.33 Active 78125815 Problem Non morbid obesity E66.9 Active 4 51139776 Problem Hammer toe of left foot M20.42 Active 502124812 Problem Mood disorder F39 Active 640201 05 Problem Deformity of left foot M21.962 Active 590148932 Problem Lumbago with sciatica, left side M54.42 Active 908812322 Problem Erectile dysfunction due to diseases classified elsewhere N52.1 Active 568694079 Problem Obstructive sleep apnea syndrome G47.33 Active 31844192 Problem Type 2 diabetes mellitus wit h diabetic neuropathy, without long-term current use of insulin E11.40 Active 37383 006 Problem Essential hypertension I10 Active 90863620 ALLERGIES No Information ENCOUNTERS Encounter Location Date Diagnosis [facility] [address] [id number] [address] [place] [address] January, [facility] [address] [id number] [address] [place] [id number] Dec, Acute diffuse otitis externa of left ear H60.312 [facility] [address] [address] Nov, Viral URI J06.9 and Flu-like symptoms R68.89 [place] [address] [place] [address] Nov, Type 2 diabetes mellitus wit h diabetic neuropathy, without long- term current use of insulin E11.40 ; Family history of prostate cancer Z80.42 and Prostate cancer screening Z12.5 [place] [address] [address] Nov, [place] [address] [address] Sep, [place] [address] [address] Aug, [place] [address] [address] Jul, Lumbago with sciatica, unspe cified side M54.40 [place] [address] [address] Jun, Lumbago with sciatica, unspe cified side M54.40 [place] [address] [address] Jun, URI, acute J06.9 [place] [address] [address] May, Lumbago with sciatica, unspe cified side M54.40 [place] [address] [address] May, [address] [address] May, Type 2 diabetes mellitus wit h diabetic neuropathy, without long- term current use of insulin E11.40 and Hammer toe of left foot M20.42 [place] [address] [address] May, [facility] [address] [facility] [id number] [address] [place] [id number] May, [facility] [address] [facility] [id number] [address] [place] [id number] May, [facility] [address] [facility] [id number] [address] [place] [id number] Apr, Lumbago with sciatica, unspe cified side M54.40 [facility] [address] [facility] [id number] [address] [place] [id number] Apr, [facility] [address] [facility] [id number] [address] [place] [id number] Apr, [address] [id number] [address] Apr, Hammer toe of left foot M20. 42 ; Chest pain R07.9 ; Preoperative examination Z01.818 and Morbid obesity E66.01 [facility] [address] [facility] [id number] [address] [place] [address] Apr, Morbid obesity E66.01 ; Bron chitis J40 and High risk medications (not anticoagulants) long-term use Z79.899 [facility] [address] [facility] [id number] [address] [place] [id number] Apr, Lumbago with sciatica, unspe cified side M54.40 [facility] [address] [facility] [id number] [address] [place] [id number] Apr, [facility] [address] [facility] [id number] [address] [place] [id number] Mar, Lumbar neuritis M54.16 and M orbid obesity E66.01 [facility] [address] [facility] [id number] [address] [place] [id number] Mar, [facility] [address] [facility] [id number] [address] [place] [phone] Mar, [facility] [address] [id number] [address] [place] [id number] Mar, Lumbago with sciatica, unspe cified side M54.40 [facility] [address] [facility] [id number] [address] [place] [address] Mar, Morbid obesity E66.01 ; Coug marco R05 ; 2+ pitting edema R60.9 and Controlled type 2 diabetes mellitus without complication, without long-term current use of insulin E11.9 [facility] [address] [id number] [address] [place] [phone] Feb, [facility] [address] [id number] [address] [place] [phone] Feb, Lumbago with sciatica, unspe cified side M54.40 [place] [address] [facility] [id number] [address] [place] [id number] Feb, [facility] [address] [facility] [id number] [address] [place] [phone] Feb, Controlled type 2 diabetes m ellitus without complication, without long-term current use of insulin E11.9 and Morbid obesity E66.01 [facility] [address] [id number] [address] [place] [address] January, Deformity of left foot M21.9 62 [facility] [address] [id number] [address] [place] [id number] January, [facility] [address] [id number] [address] [place] [id number] January, Lumbago with sciatica, unspe cified side M54.40 [facility] [address] [facility] [id number] [address] [place] [id number] January, [facility] [address] [facility] [id number] [address] [place] [id number] January, Lumbago with sciatica, unspe cified side M54.40 [place] [address] [facility] [id number] [address] [place] [id number] January, [facility] [address] [place] [id number] [place] [address] January, Acute right-sided thoracic b ack pain M54.6 [place] [address] [place] [id number] [place] [phone] January, Acute right-sided thoracic b ack pain M54.6 [facility] [address] [place] [address] [id number] [address] [place] [address] January, Chest pain, unspecified type R07.9 ; Morbid obesity E66.01 and Scabies B86 [place] [address] [place] [id number] [place] [id number] Dec, Lumbago with sciatica, unspe cified side M54.40 [place] [address] [place] [id number] [place] [address] Dec, Toenail fungus B35.1 [place] [address] [place] [id number] [place] [phone] Dec, Toenail fungus B35.1 [place] [address] [place] [id number] [place] [id number] Dec, Acute right-sided thoracic b ack pain M54.6 [place] [address] [place] [id number] [place] [address] Dec, Lumbago with sciatica, unspe cified side M54.40 [place] [address] [place] [id number] [place] [id number] Nov, Hammer toe of left foot M20. 42 ; Deformity of left foot M21.962 and Type 2 diabetes mellitus with diabetic neuropathy, without long-term current use of insulin E11.40 [facility] [address] [facility] [id number] [address] [place] [id number] Nov, Acute right-sided thoracic b ack pain M54.6 ; Morbid obesity E66.01 and Rt flank pain R10.9 [place] [address] [address] Nov, Lumbago with sciatica, unspe cified side M54.40 [place] [address] [address] Oct, Lumbago with sciatica, unspe cified side M54.40 [place] [address] [address] Sep, Lumbago with sciatica, unspe cified side M54.40 [place] [address] [address] Sep, [place] [address] [address] Sep, BMI 40.0-44.9, adult Z68.41 ; Lumbago with sciatica, left side M54.42 ; Lumbago with sciatica, right side M54.41 and Other chronic pain G89.29 [place] [address] [address] Aug, Lumbago with sciatica, unspe cified side M54.40 [place] [address] [address] Aug, Type 2 diabetes mellitus wit h diabetic neuropathy, without long- term current use of insulin E11.40 ; Hammer toe of left foot M20.42 ; Hypertension, benign I10 and Frequent headaches R51 [place] [address] [address] Jul, Lumbago with sciatica, unspe cified side M54.40 [place] [address] [place] [id number] [place] [id number] Jul, [place] [address] [place] [id number] [place] [phone] Jul, Essential hypertension I10 a nd Controlled type 2 diabetes mellitus without complication, without long-term current use of insulin E11.9 [place] [address] [facility] [id number] [address] [place] [id number] Jul, Essential hypertension I10 ; Controlled type 2 diabetes mellitus without complication, without long-term current use of insulin E11.9 and BMI 40.0-44.9, adult Z68.41 [place] [address] [facility] [id number] [address] [place] [id number] Jul, Dysfunction of left eustachi an tube H69.82 [place] [address] [facility] [id number] [address] [place] [id number] Jul, Lumbago with sciatica, unspe cified side M54.40 [facility] [id number] [place] [id number] Jun, Dental examination Z01.20 [place] [address] [place] [id number] [place] [phone] Jun, Lumbago with sciatica, unspe cified side M54.40 and Encounter for immunization Z23 [place] [address] [place] [id number] [place] [id number] Jun, Dysfunction of left eustachi an tube H69.[address] [id number] [facility] [id number] [place] [id number] Jun, Dental examination Z01.20 [facility] [address] [facility] [id number] [address] [place] [address] Jun, Other chronic pain G89.29 [facility] [address] [id number] [address] [place] [id number] Jun, Dental examination Z01.20 [facility] [address] [facility] [id number] [address] [place] [id number] Jun, [place] [address] [place] [id number] [place] [address] Jun, Bronchitis J40 ; Dysfunction of left eustachian tube H69.82 and BMI 45.0-49.9, adult Z68.42 [place] [address] [place] [id number] [place] [address] Jun, Lumbago with sciatica, unspe cified side M54.40 [place] [address] [place] [id number] [place] [address] May, Type 2 diabetes mellitus wit h diabetic neuropathy, without long- term current use of insulin E11.40 and Hypertension, benign I10 [place] [address] [address] May, Lumbago with sciatica, unspe cified side M54.40 [facility] [address] [address] Apr, [place] [address] [address] Apr, Controlled type 2 diabetes m ellitus without complication, without long-term current use of insulin E11.9 ; Insect bite (nonvenomous), right ankle, initial encounter S90.561A ; Local infection of the skin and subcutaneous tissue, unspecified L08.9 ; Acute swimmer''s ear of left side H60.332 and BMI 45.0-49.9, adult Z68.42 [place] [address] [place] [id number] [place] [address] Apr, Lumbago with sciatica, unspe cified side M54.40 [place] [address] [address] Mar, [place] [address] [address] Mar, Lumbago with sciatica, unspe cified side M54.40 [place] [address] [place] [address] 14 Feb, 2018 Lumbago with sciatica, unspe cified side M54.40 [facility] [address] [place] [id number] [place] [address] Feb, BMI 45.0-49.9, adult Z68.42 and Obstructive sleep apnea syndrome G47.33 [facility] [address] [place] [address] January, Lumbar neuritis M54.16 [facility] [address] [place] [id number] [place] [id number] January, Lumbago with sciatica, unspe cified side M54.40 [facility] [address] [place] [id number] [place] [address] Dec, Controlled type 2 diabetes m ellitus without complication, without long-term current use of insulin E11.9 ; Erectile dysfunction due to diseases classified elsewhere N52.1 and Mood disorder F39 [facility] [address] [place] [address] Dec, Lumbago with sciatica, unspe cified side M54.40 [facility] [address] [place] [id number] [place] [address] Dec, Obstructive sleep apnea synd luis G47.33 [facility] [address] [place] [id number] [place] [id number] Nov, Lumbago with sciatica, unspe cified side M54.40 ; Hypertension, benign I10 and Mood disorder F39 [facility] [address] [facility] [id number] [address] [place] [address] Nov, Other chronic pain G89.29 [facility] [address] [facility] [id number] [address] [place] [phone] Nov, Lumbago with sciatica, unspe cified side M54.40 [facility] [address] [facility] [id number] [address] [place] [id number] Nov, Dental examination Z01.20 [facility] [address] [id number] [address] [place] [id number] Oct, [facility] [address] [id number] [address] [place] [id number] Oct, Lumbago with sciatica, unspe cified side M54.40 [facility] [address] [id number] [address] [place] [phone] Oct, Lumbago with sciatica, unspe cified side M54.40 [facility] [address] [id number] [address] [place] [id number] Oct, [facility] [address] [facility] [id number] [address] [place] [phone] Oct, [facility] [address] [facility] [id number] [address] [place] [address] [id number] Oct, Dental examination Z01.20 [facility] [address] [id number] [address] [place] [phone] Oct, [facility] [address] [facility] [id number] [address] [place] [id number] Oct, Pain in right knee M25.561 [facility] [address] [id number] [address] [place] [phone] Sep, [facility] [address] [facility] [id number] [address] [place] [address] Sep, Other chronic pain G89.29 [facility] [address] [id number] [address] [place] [phone] Sep, Lumbago with sciatica, unspe cified side M54.40 [facility] [address] [id number] [address] [place] [phone] Sep, [facility] [address] [facility] [id number] [address] [place] [phone] Sep, Viral URI J06.9 and BMI 45.0 -49.9, adult Z68.42 [facility] [address] [address] Aug, Foreign body hand S60.559A a nd BMI 45.0-49.9, adult Z68.42 [place] [address] [address] Aug, [place] [address] [address] Aug, Lumbago with sciatica, unspe cified side M54.40 [place] [address] [address] Aug, Vertigo R42 ; Dysfunction of both eustachian tubes H69.83 ; Low back pain M54.5 and Other chronic pain G89.29 [facility] [address] [address] Aug, Dizziness R42 and Acute bila teral otitis media H66.93 [place] [address] [address] Aug, Lumbago with sciatica, unspe cified side M54.40 [facility] [address] [place] [id number] [address] [place] [address] [id number] Jul, Dental examination Z01.20 [place] [address] [place] [id number] [place] [id number] Jul, [place] [address] [address] Jul, [place] [address] [address] Jul, Dysfunction of both eustachi an tubes H69.83 [place] [address] [address] Jul, Controlled type 2 diabetes m ellitus without complication, without long-term current use of insulin E11.9 [facility] [address] [facility] [id number] [address] [place] [phone] Jul, Controlled type 2 diabetes m ellitus without complication, without long-term current use of insulin E11.9 [facility] [address] [id number] [address] [place] [id number] Jul, Dizziness R42 and BMI 40.0-4 4.9, adult Z68.41 [facility] [address] [id number] [address] [place] [id number] Jul, Controlled type 2 diabetes m ellitus without complication, without long-term current use of insulin E11.9 [place] [address] [id number] [address] [place] [id number] Jul, Lumbago with sciatica, unspe cified side M54.40 [facility] [id number] [place] [id number] Jul, Dental examination Z01.20 [facility] [address] [id number] [address] [place] [phone] Jun, [facility] [id number] [place] [address] [id number] Jun, Dental examination Z01.20 [place] [address] [id number] [address] [place] [phone] Jun, Controlled type 2 diabetes m ellitus without complication, without long-term current use of insulin E11.9 [facility] [address] [id number] [address] [place] [id number] Jun, Lumbago with sciatica, unspe cified side M54.40 [facility] [address] [id number] [address] [place] [id number] May, Dental examination Z01.20 [facility] [address] [id number] [address] [place] [phone] May, Controlled type 2 diabetes m ellitus without complication, without long-term current use of insulin E11.9 [facility] [address] [id number] [address] [place] [address] [id number] 19 May, 2017 Dental examination Z01.20 [facility] [address] [id number] [address] [place] [id number] 18 May, 2017 Bronchitis J40 ; Dry mouth R 68.2 ; Non morbid obesity E66.9 and Controlled type 2 diabetes mellitus without complication, without long-term current use of insulin E11.9 [facility] [address] [id number] [address] [place] [phone] 16 May, 2017 Encounter for immunization Z 23 [facility] [address] [id number] [address] [place] [id number] 07 May, 2017 Lumbago with sciatica, unspe cified side M54.40 [facility] [address] [id number] [address] [place] [id number] 05 May, 2017 [facility] [address] [id number] [address] [place] [id number] Apr, Dental examination Z01.20 [facility] [address] [id number] [address] [place] [id number] Apr, Lumbago with sciatica, unspe cified side M54.40 [facility] [address] [id number] [address] [place] [id number] Mar, Lumbago with sciatica, left side M54.42 [facility] [address] [id number] [address] [place] [id number] Mar, [facility] [address] [id number] [address] [place] [id number] Mar, Lumbar neuritis M54.16 [facility] [address] [id number] [address] [place] [id number] Mar, [facility] [address] [id number] [address] [place] [id number] Mar, Dental examination Z01.20 [place] [address] [address] [facility] [id number] [address] [place] [id number] Mar, MELE (obstructive sleep apnea ) G47.33 ; Neuropathy involving both lower extremities G57.93 and Frequent headaches R51 [place] [address] [id number] [address] [place] [id number] Mar, Lumbago with sciatica, unspe cified side M54.40 [place] [address] [id number] [address] [place] [id number] Feb, Lumbago with sciatica, unspe cified side M54.40 and Controlled type 2 diabetes mellitus without complication, without long-term current use of insulin E11.9 [place] [address] [address] [facility] [id number] [address] [place] [id number] January, Hypertension, benign I10 and Bilateral low back pain with sciatica, sciatica laterality unspecified M54.40 [place] [address] [id number] [address] [place] [id number] January, Hypertension, benign I10 ; L umbago with sciatica, unspecified side M54.40 ; Other chronic pain G89.29 and Controlled type 2 diabetes mellitus without complication, without long-term current use of insulin E11.9 [place] [address] [address] [facility] [id number] [address] [place] [id number] January, Lumbar neuritis M54.16 [place] [address] [id number] [address] [place] [id number] January, [place] [address] [address] [facility] [id number] [address] [place] [id number] Dec, Lumbago with sciatica, right side M54.41 and Lumbar neuritis M54.16 [place] [address] [address] [facility] [id number] [address] [place] [id number] Dec, Lumbar neuritis M54.16 [place] [address] [address] [place] [id number] [address] [place] [id number] Dec, Lumbar neuritis M54.16 [place] [address] [address] [facility] [id number] [address] [place] [id number] 16 Nov, 2016 Lumbar neuritis M54.16 ; Lum bago with sciatica, right side M54.41 ; Controlled type 2 diabetes mellitus without complication, without long-term current use of insulin E11.9 and Rash and nonspecific skin eruption R21 [place] [address] [address] [place] [id number] [address] [place] [id number] Nov, Lumbar neuritis M54.16 and P alexi romany L23.7 [place] [address] [address] [place] [id number] [place] [id number] 16 Oct, 2016 Lumbar neuritis M54.16 ; Cou ghing R05 and Mood disorder F39 [place] [address] [address] [place] [id number] [address] [place] [id number] Sep, Lumbago with sciatica, right side M54.41 [place] [address] [address] [place] [id number] [place] [address] Sep, Adjustment disorder with dis turbance of emotion F43.29 and Pain management R52 [place] [address] [address] [place] [id number] [address] [place] [id number] Sep, [place] [address] [address] [place] [id number] [address] [place] [id number] Sep, [place] [address] [address] [place] [id number] [address] [place] [id number] Sep, Controlled type 2 diabetes evens reyna without complication, without long-term current use of insulin E11.9 and Lumbago with sciatica, unspecified side M54.40 [place] [address] [address] [place] [id number] [address] [place] [id number] Aug, Controlled type 2 diabetes evens reyna without complication, without long-term current use of insulin E11.9 ; Pain in right knee M25.561 ; Pain in left knee M25.562 ; Other chronic pain G89.29 ; Lumbago with sciatica, right side M54.41 ; Neck pain M54.2 and Encounter for immunization Z23 [facility] [address] [id number] [address] [place] [id number] Jul, [facility] [address] [id number] [address] [place] [id number] Jul, Controlled type 2 diabetes evens reyna without complication, without long-term current use of insulin E11.9 [facility] [address] [id number] [address] [place] [id number] Jul, [facility] [address] [id number] [address] [place] [id number] Jul, [facility] [address] [id number] [address] [place] [id number] Jul, Lumbago with sciatica, left side M54.42 ; Lumbago with sciatica, right side M54.41 and Other chronic pain G89.29 [facility] [address] [id number] [address] [place] [id number] Jul, [facility] [address] [id number] [address] [place] [id number] Jul, [facility] [address] [id number] [address] [place] [phone] Jun, [facility] [address] [id number] [address] [place] [id number] Jun, Lumbago with sciatica, right side M54.41 and Other chronic pain G89.29 [facility] [address] [id number] [address] [place] [id number] Jun, Cervicalgia M54.2 ; Lumbago with sciatica, unspecified side M54.40 and Other chronic pain G89.29 [facility] [address] [id number] [address] [place] [id number] 15 May, 2016 Pain in right knee M25.561 ; Pain in left knee M25.562 and Other chronic pain G89.29 [facility] [address] [id number] [address] [place] [id number] 14 May, 2016 [facility] [address] [id number] [address] [place] [phone] Apr, Other chronic pain G89.29 an d Pain in right knee M25.561 [facility] [address] [id number] [address] [place] [id number] Apr, Pain in right knee M25.561 [facility] [address] [id number] [address] [place] [id number] Mar, [facility] [address] [id number] [address] [place] [id number] Mar, Mood disorder F39 and Contro lled type 2 diabetes mellitus without complication, without long-term current use of insulin E11.9 [facility] [address] [id number] [address] [place] [id number] Mar, Pain in right knee M25.561 ; Pain in left knee M25.562 ; Other chronic pain G89.29 ; Obstructive sleep apnea syndrome G47.33 ; Mood disorder F39 and Controlled type 2 diabetes mellitus without complication, without long- term current use of insulin E11.9 [facility] [address] [id number] [address] [place] [id number] Mar, [facility] [address] [id number] [address] [place] [id number] Feb, Dental examination Z01.20 [facility] [address] [id number] [address] [place] [id number] Feb, [facility] [address] [id number] [address] [place] [id number] Feb, Osteoarthritis of right knee , unspecified osteoarthritis type M17.9 [facility] [address] [id number] [address] [place] [id number] January, [facility] [address] [id number] [address] [place] [id number] January, Dental examination Z01.20 [facility] [address] [id number] [address] [place] [id number] January, [facility] [address] [id number] [address] [place] [id number] January, Dental examination Z01.20 an d Caries K02.9 [facility] [address] [id number] [address] [place] [id number] Dec, Encounter for other preproce dural examination Z01.818 [facility] [address] [id number] [address] [place] [id number] Dec, [facility] [address] [id number] [address] [place] [id number] Dec, Knee pain M25.569 [facility] [address] [id number] [address] [place] [id number] 15 Dec, 2015 Pain in right knee M25.561 [facility] [address] [id number] [address] [place] [id number] 14 Dec, 2015 [facility] [address] [id number] [address] [place] [id number] Dec, [facility] [address] [id number] [address] [place] [id number] Dec, Encounter for immunization Z 23 [facility] [address] [id number] [address] [place] [id number] Dec, [facility] [address] [id number] [address] [place] [id number] Dec, [facility] [address] [id number] [address] [place] [id number] Nov, [facility] [address] [id number] [address] [place] [id number] Nov, Hypertension, benign I10 ; C ervicalgia M54.2 ; Pain in right knee M25.561 and Pain in left knee M25.562 [place] [id number] [facility] [id number] [address] [place] [id number] Oct, [facility] [address] [facility] [id number] [address] [place] [id number] Oct, [facility] [address] [place] [id number] [place] [id number] Oct, Osteoarthritis of both knees M17.0 [place] [address] [address] [place] [id number] [place] [id number] Oct, [place] [address] [address] [place] [id number] [place] [phone] Oct, Low back pain M54.5 [place] [address] [address] [place] [id number] [place] [address] Oct, Low back pain M54.5 ; Sciati ca, unspecified side M54.30 ; Pain in right knee M25.561 ; Pain in left knee M25.562 ; Pain in right shoulder M25.511 and Pain in left shoulder M25.512 [place] [address] [address] [place] [id number] [address] [place] [id number] Oct, [place] [address] [address] [place] [id number] [address] [place] [id number] Sep, Pain in right hip M25.551 [place] [address] [address] [place] [id number] [address] [place] [id number] Sep, Acute upper respiratory infe ction, unspecified J06.9 [place] [address] [address] [place] [id number] [address] [place] [phone] Aug, Acute upper respiratory infe ction, unspecified J06.9 and Other viral agents as the cause of diseases classified elsewhere B97.89 [facility] [address] [id number] [address] [place] [id number] Jul, Arthritis M19.90 [facility] [address] [id number] [address] [place] [id number] Jun, Arthritis M19.90 ; Pain in r ight hip M25.551 ; Pain in left hip M25.552 ; Bilateral low back pain with sciatica, sciatica laterality unspecified M54.40 ; Neck pain M54.2 ; Upper back pain M54.9 and Knee pain, unspecified laterality M25.569 [facility] [address] [id number] [address] [place] [id number] May, Osteoarthritis of both knees 715.96 [facility] [address] [id number] [address] [place] [phone] May, Rash 782.1 [place] [address] [address] [facility] [id number] [address] [place] [id number] Apr, Lumbar strain 847.2 [facility] [address] [id number] [address] [place] [id number] Apr, Rash 782.1 [facility] [address] [facility] [id number] [address] [place] [phone] Mar, Rash 782.1 [facility] [address] [facility] [id number] [address] [place] [id number] Feb, Rash 782.1 ; Hemorrhoids 455 .6 and Constipation 564.00 [facility] [address] [id number] [address] [place] [id number] Feb, Osteoarthritis of both knees 715.96 [facility] [address] [id number] [address] [place] [id number] January, [facility] [address] [facility] [id number] [address] [place] [phone] Dec, [facility] [address] [id number] [address] [place] [id number] 14 Dec, 2014 [facility] [address] [id number] [address] [place] [address], [place] [address] 13 Dec, 2014 [facility] [address] [id number] [address] [place] [address], [place] [address] 18 Nov, 2014 [facility] [address] [id number] [address] [place] [address], [place] [address] 18 Nov, 2014 [facility] [address] [id number] [address] [place] [address], [place] [id number] 18 Nov, 2014 [facility] [address] [id number] [address] [place] [address], [place] [id number] 18 Nov, 2014 [facility] [address] [id number] [address] [place] [address], [place] [address] Nov, [facility] [address] [id number] [address] [place] [address], [place] [address] Nov, [facility] [address] [id number] [address] [place] [address], [place] [address] Oct, [facility] [address] [id number] [address] [place] [address], [place] [address] Oct, [facility] [address] [id number] [address] [place] [address], [place] [address] Oct, [facility] [address] [id number] [address] [place] [address], [place] [address] Oct, 2014 [facility] [address] [id number] [address] [place] [address], [place] [address] Oct, 2014 [facility] [address] [id number] [address] [place] [address], [place] [address] Oct, 2014 [facility] [address] [id number] [address] [place] [id number] Oct, 2014 [facility] [address] [id number] [address] [place] [phone] Oct, [facility] [address] [id number] [address] [place] [address], [place] [address] Oct, 2014 [facility] [address] [id number] [address] [place] [address], [place] [id number] Oct, [facility] [address] [id number] [address] [place] [address], [place] [address] Oct, [facility] [address] [id number] [address] [place] [address], [place] [address] Sep, [facility] [address] [id number] [address] [place] [address], [place] [address] Sep, [facility] [address] [id number] [address] [place] [address], [place] [id number] Sep, [facility] [address] [id number] [address] [place] [address], [place] [address] Sep, [facility] [address] [id number] [address] [place] [address], [place] [address] Sep, [facility] [address] [id number] [address] [place] [address], [place] [address] Sep, [facility] [address] [id number] [address] [place] [address], [place] [address] Aug, [facility] [address] [id number] [address] [place] [address], [place] [address] Aug, [facility] [address] [id number] [address] [place] [address], [place] [address] Aug, [facility] [address] [id number] [address] [place] [address], [place] [address] Aug, [facility] [address] [id number] [address] [place] [address], [place] [address] Aug, [facility] [address] [id number] [address] [place] [address], [place] [address] Aug, [facility] [address] [id number] [address] [place] [address], [place] [address] 05 Aug, 2014 [facility] [address] [id number] [address] [place] [address], [place] [address] Aug, [facility] [address] [id number] [address] [place] [address], [place] [address] Aug, [facility] [address] [id number] [address] [place] [address], [place] [address] Aug, [facility] [address] [id number] [address] [place] [address], [place] [address] Jul, [facility] [address] [id number] [address] [place] [address], [place] [address] Jul, [facility] [address] [id number] [address] [place] [address], [place] [address] Jul, [facility] [address] [id number] [address] [place] [address], [place] [address] Jul, [facility] [address] [id number] [address] [place] [address], [place] [address] Jun, [facility] [address] [id number] [address] [place] [address], [place] [address] Jun, [facility] [address] [id number] [address] [place] [address], [place] [address] Jun, [facility] [address] [id number] [address] [place] [address], [place] [address] Jun, [facility] [address] [id number] [address] [place] [address], [place] [address] Jun, [facility] [address] [id number] [address] [place] [address], [place] [address] Jun, [facility] [address] [id number] [address] [place] [address], [place] [address] Jun, [facility] [address] [id number] [address] [place] [id number] Jun, [facility] [address] [id number] [facility] [place] [address] 24 May, 2013 [facility] [address] [id number] [address] [place] [address], [place] [address] 24 May, 2014 [facility] [address] [id number] [address] [place] [address], [place] [address] 19 May, 2014 [facility] [address] [id number] [address] [place] [address], [place] [address] 19 May, 2014 [facility] [address] [id number] [address] [place] [address], [place] [address] 15 May, 2014 [facility] [address] [id number] [address] [place] [address], [place] [address] 15 May, 2014 [facility] [address] [id number] [address] [place] [address], [place] [address] 15 May, 2014 [facility] [address] [id number] [address] [place] [address], [place] [address] May, [facility] [address] [id number] [address] [place] [address], [place] [address] Apr, [facility] [address] [id number] [address] [place] [address], [place] [address] Apr, [facility] [address] [id number] [address] [place] [address], [place] [address] Apr, [facility] [address] [id number] [address] [place] [address], [place] [address] Apr, [facility] [address] [id number] [address] [place] [address], [place] [address] Apr, [facility] [address] [id number] [address] [place] [address], [place] [address] Apr, [facility] [address] [id number] [address] [place] [address], [place] [address] Apr, [facility] [address] [id number] [address] [place] [address], [place] [address] Apr, [facility] [address] [id number] [address] [place] [address], [place] [address] Apr, [facility] [address] [id number] [address] [place] [address], [place] [address] Apr, [facility] [address] [id number] [address] [place] [address], [place] [address] Apr, [facility] [address] [id number] [address] [place] [address], [place] [address] Apr, [facility] [address] [id number] [address] [place] [address], [place] [address] Mar, [facility] [address] [id number] [address] [place] [address], [place] [address] Mar, [facility] [address] [id number] [address] [place] [address], [place] [address] Mar, [facility] [address] [id number] [address] [place] [address], [place] [address] Mar, [facility] [address] [id number] [address] [place] [address], [place] [address] Mar, [facility] [address] [id number] [address] [place] [address], [place] [address] Mar, [facility] [address] [id number] [address] [place] [address], [place] [address] Feb, [facility] [address] [id number] [address] [place] [address], [place] [address] Feb, [facility] [address] [id number] [address] [place] [address], [place] [address] Feb, [facility] [address] [id number] [address] [place] [address], [place] [address] Feb, [facility] [address] [id number] [address] [place] [address], [place] [address] Feb, [facility] [address] [id number] [facility] [place] [address] 16 Feb, 2014 [facility] [address] [id number] [address] [place] [address], [place] [address] Feb, [facility] [address] [id number] [address] [place] [address], [place] [address] Feb, [facility] [address] [id number] [address] [place] [address], [place] [address] Feb, [facility] [address] [id number] [address] [place] [address], [place] [address] Feb, [facility] [address] [id number] [address] [place] [address], [place] [address] Feb, [facility] [address] [id number] [address] [place] [address], [place] [address] Feb, [facility] [address] [id number] [address] [place] [address], [place] [address] Feb, [facility] [address] [id number] [address] [place] [address], [place] [address] Feb, [facility] [address] [id number] [address] [place] [address], [place] [address] January, [facility] [address] [id number] [address] [place] [address], [place] [address] January, [facility] [address] [id number] [address] [place] [address], [place] [address] January, [facility] [address] [id number] [address] [place] [address], [place] [address] January, [facility] [address] [id number] [address] [place] [address], [place] [address] January, [facility] [address] [id number] [address] [place] [address], [place] [address] January, [facility] [address] [id number] [address] [place] [address], [place] [address] Dec, [facility] [address] [id number] [facility] [place] [address] Dec, [facility] [address] [id number] [address] [place] [address], [place] [address] Dec, [facility] [address] [id number] [address] [place] [address], [place] [address] Dec, [facility] [address] [id number] [address] [place] [address], [place] [address] Dec, [facility] [address] [id number] [address] [place] [address], [place] [address] Dec, [facility] [address] [id number] [address] [place] [address], [place] [address] Dec, [facility] [address] [id number] [address] [place] [address], [place] [address] Dec, [facility] [address] [id number] [address] [place] [address], [place] [address] Nov, [facility] [address] [id number] [address] [place] [address], [place] [address] Nov, [facility] [address] [id number] [address] [place] [address], [place] [address] Nov, [facility] [address] [id number] [address] [place] [address], [place] [address] Nov, [facility] [address] [id number] [address] [place] [address], [place] [address] Nov, [facility] [address] [id number] [address] [place] [address], [place] [address] Nov, [facility] [address] [id number] [address] [place] [address], [place] [address] Nov, [facility] [facility] [address] [id number] [address] [place] [address], [place] [address] Nov, [facility] [address] [id number] [address] [place] [address], [place] [address] Oct, [facility] [address] [id number] [address] [place] [address], [place] [address] Oct, [facility] [address] [id number] [address] [place] [address], [place] [address] Oct, [facility] [address] [id number] [address] [place] [address], [place] [address] Oct, [facility] [address] [id number] [address] [place] [address], [place] [address] Oct, [facility] [address] [id number] [address] [place] [address], [place] [address] Oct, [facility] [address] [id number] [address] [place] [address], [place] [address] Oct, [facility] [address] [id number] [address] [place] [address], [place] [address] Oct, [facility] [address] [id number] [address] [place] [address], [place] [id number] Oct, [facility] [address] [id number] [address] [place] [address], [place] [address] Oct, [facility] [address] [id number] [address] [place] [address], [place] [address] Sep, [facility] [address] [id number] [address] [place] [address], [place] [address] Sep, [facility] [address] [id number] [address] [place] [address], [place] [address] Sep, [facility] [address] [id number] [address] [place] [address], [place] [address] Sep, [facility] [address] [id number] [address] [place] [address], [place] [address] Sep, [facility] [address] [id number] [address] [place] [address], [place] [address] Sep, [facility] [address] [id number] [address] [place] [address], [place] [address] Aug, [facility] [address] [id number] [address] [place] [address], [place] [address] Aug, [facility] [address] [id number] [address] [place] [address], [place] [address] Aug, [facility] [address] [id number] [address] [place] [address], [place] [address] Aug, [facility] [address] [id number] [address] [place] [address], [place] [address] Aug, [facility] [address] [id number] [address] [place] [address], [place] [address] Aug, [facility] [address] [id number] [address] [place] [address], [place] [address] Aug, [facility] [address] [id number] [address] [place] [address], [place] [address] Aug, [facility] [address] [id number] [address] [place] [address], [place] [address] Jul, [facility] [address] [id number] [address] [place] [address], [place] [address] Jul, [facility] [address] [id number] [address] [place] [address], [place] [address] Jul, [facility] [address] [id number] [address] [place] [address], [place] [address] Jul, [facility] [address] [id number] [address] [place] [address], [place] [address] Jul, [facility] [address] [id number] [address] [place] [address], [place] [address] Jul, [facility] [address] [id number] [address] [place] [address], [place] [address] Jun, [facility] [address] [id number] [address] [place] [address] [place] [address] Jun, [facility] [address] [id number] [address] [place] [address], [place] [address] Jun, [facility] [address] [id number] [address] [place] [address], [place] [address] May, [facility] [address] [id number] [address] [place] [address], [place] [address] May, [facility] [address] [id number] [address] [place] [address], [place] [address] May, [facility] [address] [id number] [address] [place] [address], [place] [address] Apr, [facility] [address] [id number] [address] [place] [address], [place] [address] Apr, [facility] [address] [id number] [address] [place] [address], [place] [address] Apr, [facility] [address] [id number] [address] [place] [address], [place] [address] Apr, [facility] [address] [id number] [address] [place] [address], [place] [address] Mar, [facility] [address] [id number] [address] [place] [address], [place] [address] Mar, [facility] [address] [id number] [address] [place] [address], [place] [address] Mar, [facility] [address] [id number] [address] [place] [address], [place] [address] Mar, [facility] [address] [id number] [address] [place] [address], [place] [address] Feb, [facility] [address] [id number] [address] [place] [address], [place] [address] Feb, [facility] [address] [id number] [address] [place] [address], [place] [address] Feb, [facility] [address] [id number] [address] [place] [address], [place] [address] Feb, [facility] [address] [id number] [address] [place] [address], [place] [address] January, [facility] [address] [id number] [address] [place] [address], [place] [address] January, [facility] [address] [id number] [address] [place] [address], [place] [address] January, [facility] [address] [id number] [address] [place] [address], [place] [address] Nov, [facility] [address] [id number] [address] [place] [address], [place] [address] Nov, [facility] [address] [id number] [address] [place] [address], [place] [address] Oct, [facility] [address] [id number] [address] [place] [address], [place] [address] Oct, [facility] [address] [id number] [address] [place] [address], [place] [address] Oct, [facility] [address] [id number] [address] [place] [address], [place] [address] Oct, [facility] [address] [id number] [address] [place] [address], [place] [address] Sep, [facility] [address] [id number] [address] [place] [address], [place] [address] Sep, [facility] [address] [id number] [address] [place] [address], [place] [address] Sep, [facility] [address] [id number] [address] [place] [address], [place] [address] Aug, [facility] [address] [id number] [address] [place] [address], [place] [address] Aug, [facility] [address] [id number] [address] [place] [address], [place] [address] Aug, [facility] [address] [id number] [address] [place] [address], [place] [address] Aug, [facility] [address] [id number] [address] [place] [address], [place] [address] Aug, [facility] [address] [id number] [address] [place] [address], [place] [address] Aug, [facility] [address] [id number] [address] [place] [address], [place] [address] Jul, [facility] [address] [id number] [address] [place] [address], [place] [address] Jul, [facility] [address] [id number] [address] [place] [address], [place] [address] Jun, [facility] [address] [id number] [address] [place] [address], [place] [address] Jun, [facility] [address] [id number] [address] [place] [address], [place] [address] Jun, [facility] [address] [id number] [address] [place] [address], [place] [address] Apr, [facility] [address] [id number] [address] [place] [address], [place] [address] Apr, [facility] [address] [id number] [address] [place] [address], [place] [address] Mar, [facility] [address] [id number] [address] [place] [address] Mar, [facility] [address] [id number] [address] [place] [address], [place] [address] Mar, [facility] [address] [id number] [address] [place] [address], [place] [address] Mar, [facility] [address] [id number] [address] [place] [address], [place] [address] Feb, [facility] [address] [id number] [address] [place] [address], [place] [address] Feb, [facility] [address] [id number] [address] [place] [address], [place] [address] Feb, [facility] [address] [id number] [address] [place] [address], [place] [address] January, [facility] [address] [id number] [address] [place] [address], [place] [address] January, [facility] [address] [id number] [address] [place] [address], [place] [address] January, [facility] [address] [id number] [address] [place] [address], [place] [address] January, [facility] [address] [id number] [address] [place] [address], [place] [address] Dec, [facility] [address] [id number] [address] [place] [address], [place] [address] Dec, [facility] [address] [id number] [address] [place] [address], [place] [address] Nov, [facility] [address] [id number] [address] [place] [address], [place] [address] Nov, [facility] [address] [id number] [address] [place] [address], [place] [address] 16 Oct, 2011 [facility] [address] [id number] [address] [place] [address], [place] [address] Oct, [facility] [address] [id number] [address] [place] [address], [place] [address] Sep, [facility] [address] [id number] [address] [place] [address], [place] [address] Sep, [facility] [address] [id number] [address] [place] [address], [place] [address] Sep, [facility] [address] [id number] [address] [place] [address], [place] [address] Sep, [facility] [address] [id number] [address] [place] [address], [place] [address] 16 Aug, 2011 [facility] [address] [id number] [address] [place] [address], [place] [address] 16 Aug, 2011 [facility] [address] [id number] [address] [place] [address], [place] [address] Aug, [facility] [address] [id number] [address] [place] [address], [place] [address] Jul, [facility] [address] [id number] [address] [place] [address], [place] [address] Aug, [facility] [address] [id number] [address] [place] [address], [place] [address] Aug, [facility] [address] [id number] [address] [place] [address], [place] [address] Aug, [facility] [address] [id number] [address] [place] [address], [place] [address] Aug, [facility] [address] [id number] [address] [place] [address], [place] [address] Jul, [facility] [address] [id number] [address] [place] [address], [place] [address] Jul, [facility] [address] [id number] [address] [place] [address], [place] [address] Jul, [facility] [address] [id number] [address] [place] [address] Jun, [facility] [address] [id number] [address] [place] [address], [place] [address] Jun, [facility] [address] [id number] [address] [place] [address], [place] [address] Jun, [facility] [address] [id number] [address] [place] [address], [place] [address] Apr, [facility] [address] [id number] [address] [place] [address] Mar, IMMUNIZATIONS No Known Immunizations SOCIAL HISTORY [...]
--- OUTSIDE RECORDS SUMMARY | 2020-03-18 14:53 | XMS REPORT ---
Author Author George WAYNE Organization [facility] Address [address] [place] [address] Care Team Providers Care Director Funeral Name Role Phone REYNA WAYNE Unavailable PROBLEMS Type Condition ICD9-CM Code OZY45-QA Code Onset Dates Condition S tatus SNOMED Code Problem Hypertension, benign I10 Active 74363475 Problem Other chronic pain G89.29 Active 8 9439970 Problem Lumbago with sciatica, unspecified side M54.40 Active 284434707 Problem Controlled type 2 diabetes m ellitus without complication, without long- term current use of insulin E11.9 Active 145623324 Problem Lumbago with sciatica, right side M54.41 Active 888194075 Problem Adjustment disorder with disturbance of emotion F4 3.29 Active 73481698 Problem MELE (obstructive sleep apnea) G47.33 Active 37884472 Problem Non morbid obesity E66.9 Active 4 02356184 Problem Hammer toe of left foot M20.42 Active 737505838 Problem Mood disorder F39 Active 946136 05 Problem Deformity of left foot M21.962 Active 231967787 Problem Lumbago with sciatica, left side M54.42 Active 060000956 Problem Erectile dysfunction due to diseases classified elsewhere N52.1 Active 081783602 Problem Obstructive sleep apnea syndrome G47.33 Active 54824447 Problem Type 2 diabetes mellitus wit h diabetic neuropathy, without long-term current use of insulin E11.40 Active 57764 006 Problem Essential hypertension I10 Active 19930058 ALLERGIES No Information ENCOUNTERS Encounter Location Date Diagnosis [facility] [address] [place] [address] January, [facility] [address] [place] [id number] [address] [place] [address] Dec, Acute diffuse otitis externa of left ear H60.312 [facility] [address] [address] [address] Nov, Viral URI J06.9 and Flu-like symptoms R68.89 [place] [address] [place] [address] Nov, Type 2 diabetes mellitus wit h diabetic neuropathy, without long- term current use of insulin E11.40 ; Family history of prostate cancer Z80.42 and Prostate cancer screening Z12.5 [place] [address] [address] Nov, [place] [address] [address] Sep, [place] [address] [address] Aug, [place] [address] [address] Jul, Lumbago with sciatica, unspe cified side M54.40 [place] [address] [address] Jun, Lumbago with sciatica, unspe cified side M54.40 [place] [address] [address] Jun, URI, acute J06.9 [place] [address] [address] May, Lumbago with sciatica, unspe cified side M54.40 [place] [address] [address] May, [address] [address] May, Type 2 diabetes mellitus wit h diabetic neuropathy, without long- term current use of insulin E11.40 and Hammer toe of left foot M20.42 [place] [address] [address] May, [facility] [address] [facility] [id number] [address] [place] [address] May, [facility] [address] [facility] [id number] [address] [place] [address] May, [facility] [address] [facility] [id number] [address] [place] [address] Apr, Lumbago with sciatica, unspe cified side M54.40 [facility] [address] [facility] [id number] [address] [place] [address] Apr, [facility] [address] [facility] [id number] [address] [place] [address] Apr, [address] [place] [address] Apr, Hammer toe of left foot M20. 42 ; Chest pain R07.9 ; Preoperative examination Z01.818 and Morbid obesity E66.01 [facility] [address] [facility] [id number] [address] [place] [address] Apr, Morbid obesity E66.01 ; Bron chitis J40 and High risk medications (not anticoagulants) long-term use Z79.899 [facility] [address] [facility] [id number] [address] [place] [address] Apr, Lumbago with sciatica, unspe cified side M54.40 [facility] [address] [facility] [id number] [address] [place] [address] Apr, [facility] [address] [facility] [id number] [address] [place] [address] Mar, Lumbar neuritis M54.16 and M orbid obesity E66.01 [facility] [address] [facility] [id number] [address] [place] [address] Mar, [facility] [address] [facility] [id number] [address] [place] [address] Mar, [facility] [address] [id number] [address] [place] [address] Mar, Lumbago with sciatica, unspe cified side M54.40 [facility] [address] [facility] [id number] [address] [place] [address] Mar, Morbid obesity E66.01 ; Coug marco R05 ; 2+ pitting edema R60.9 and Controlled type 2 diabetes mellitus without complication, without long-term current use of insulin E11.9 [facility] [address] [id number] [address] [place] [address] Feb, [facility] [address] [id number] [address] [place] [address] Feb, Lumbago with sciatica, unspe cified side M54.40 [place] [address] [facility] [id number] [address] [place] [address] Feb, [facility] [address] [facility] [id number] [address] [place] [address] Feb, Controlled type 2 diabetes m ellitus without complication, without long-term current use of insulin E11.9 and Morbid obesity E66.01 [facility] [address] [id number] [address] [place] [address] January, Deformity of left foot M21.9 62 [facility] [address] [id number] [address] [place] [address] January, [facility] [address] [id number] [address] [place] [address] January, Lumbago with sciatica, unspe cified side M54.40 [facility] [address] [facility] [id number] [address] [place] [address] January, [facility] [address] [facility] [id number] [address] [place] [address] January, Lumbago with sciatica, unspe cified side M54.40 [place] [address] [facility] [id number] [address] [place] [address] January, [facility] [address] [place] [id number] [place] [address] January, Acute right-sided thoracic b ack pain M54.6 [place] [address] [place] [id number] [address] [place] [address] January, Acute right-sided thoracic b ack pain M54.6 [facility] [address] [place] [id number] [address] [place] [address] January, Chest pain, unspecified type R07.9 ; Morbid obesity E66.01 and Scabies B86 [place] [address] [place] [id number] [address] [place] [address] Dec, Lumbago with sciatica, unspe cified side M54.40 [place] [address] [place] [id number] [address] [place] [address] Dec, Toenail fungus B35.1 [place] [address] [place] [id number] [address] [place] [address] Dec, Toenail fungus B35.1 [place] [address] [place] [id number] [address] [place] [address] Dec, Acute right-sided thoracic b ack pain M54.6 [place] [address] [place] [id number] [address] [place] [address] Dec, Lumbago with sciatica, unspe cified side M54.40 [place] [address] [place] [id number] [place] [address] Nov, Hammer toe of left foot M20. 42 ; Deformity of left foot M21.962 and Type 2 diabetes mellitus with diabetic neuropathy, without long-term current use of insulin E11.40 [facility] [address] [facility] [id number] [address] [place] [address] Nov, Acute right-sided thoracic b ack pain M54.6 ; Morbid obesity E66.01 and Rt flank pain R10.9 [place] [address] [address] Nov, Lumbago with sciatica, unspe cified side M54.40 [place] [address] [address] Oct, Lumbago with sciatica, unspe cified side M54.40 [place] [address] [address] Sep, Lumbago with sciatica, unspe cified side M54.40 [place] [address] [address] Sep, [place] [address] [address] Sep, BMI 40.0-44.9, adult Z68.41 ; Lumbago with sciatica, left side M54.42 ; Lumbago with sciatica, right side M54.41 and Other chronic pain G89.29 [place] [address] [address] Aug, Lumbago with sciatica, unspe cified side M54.40 [place] [address] [address] Aug, Type 2 diabetes mellitus wit h diabetic neuropathy, without long- term current use of insulin E11.40 ; Hammer toe of left foot M20.42 ; Hypertension, benign I10 and Frequent headaches R51 [place] [address] [address] Jul, Lumbago with sciatica, unspe cified side M54.40 [place] [address] [place] [id number] [place] [address] Jul, [place] [address] [place] [id number] [address] [place] [address] Jul, Essential hypertension I10 a nd Controlled type 2 diabetes mellitus without complication, without long-term current use of insulin E11.9 [place] [address] [facility] [id number] [address] [place] [address] Jul, Essential hypertension I10 ; Controlled type 2 diabetes mellitus without complication, without long-term current use of insulin E11.9 and BMI 40.0-44.9, adult Z68.41 [place] [address] [facility] [id number] [address] [place] [address] Jul, Dysfunction of left eustachi an tube H69.82 [place] [address] [facility] [id number] [address] [place] [address] Jul, Lumbago with sciatica, unspe cified side M54.40 [facility] [address] [place] [address] [id number] Jun, Dental examination Z01.20 [place] [address] [place] [id number] [place] [address] Jun, Lumbago with sciatica, unspe cified side M54.40 and Encounter for immunization Z23 [place] [address] [place] [id number] [place] [address] Jun, Dysfunction of left eustachi an tube H69.82 [place] [address] [facility] [id number] [place] [id number] Jun, Dental examination Z01.20 [facility] [address] [facility] [id number] [address] [place] [address] Jun, Other chronic pain G89.29 [facility] [address] [id number] [address] [place] [address] [id number] Jun, Dental examination Z01.20 [facility] [address] [facility] [id number] [address] [place] [address] Jun, [place] [address] [place] [id number] [place] [address] Jun, Bronchitis J40 ; Dysfunction of left eustachian tube H69.82 and BMI 45.0-49.9, adult Z68.42 [place] [address] [place] [id number] [address] [place] [address] Jun, Lumbago with sciatica, unspe cified side M54.40 [place] [address] [place] [id number] [address] [place] [address] May, Type 2 diabetes mellitus wit h diabetic neuropathy, without long- term current use of insulin E11.40 and Hypertension, benign I10 [place] [address] [address] May, Lumbago with sciatica, unspe cified side M54.40 [facility] [address] [address] Apr, [place] [address] [address] Apr, Controlled type 2 diabetes m ellitus without complication, without long-term current use of insulin E11.9 ; Insect bite (nonvenomous), right ankle, initial encounter S90.561A ; Local infection of the skin and subcutaneous tissue, unspecified L08.9 ; Acute swimmer''s ear of left side H60.332 and BMI 45.0-49.9, adult Z68.42 [place] [address] [place] [id number] [place] [address] Apr, Lumbago with sciatica, unspe cified side M54.40 [place] [address] [address] Mar, [place] [address] [address] Mar, Lumbago with sciatica, unspe cified side M54.40 [place] [address] [place] [address] 14 Feb, 2018 Lumbago with sciatica, unspe cified side M54.40 [facility] [address] [place] [id number] [place] [address] Feb, BMI 45.0-49.9, adult Z68.42 and Obstructive sleep apnea syndrome G47.33 [facility] [address] [place] [address] January, Lumbar neuritis M54.16 [facility] [address] [place] [id number] [place] [address] January, Lumbago with sciatica, unspe cified side M54.40 [facility] [address] [place] [id number] [place] [address] Dec, Controlled type 2 diabetes m ellitus without complication, without long-term current use of insulin E11.9 ; Erectile dysfunction due to diseases classified elsewhere N52.1 and Mood disorder F39 [facility] [address] [place] [address] Dec, Lumbago with sciatica, unspe cified side M54.40 [facility] [address] [place] [id number] [place] [address] Dec, Obstructive sleep apnea synd luis G47.33 [facility] [address] [place] [id number] [place] [address] Nov, Lumbago with sciatica, unspe cified side M54.40 ; Hypertension, benign I10 and Mood disorder F39 [facility] [address] [facility] [id number] [address] [place] [address] Nov, Other chronic pain G89.29 [facility] [address] [facility] [id number] [address] [place] [address] Nov, Lumbago with sciatica, unspe cified side M54.40 [facility] [address] [facility] [id number] [address] [place] [address] [id number] Nov, Dental examination Z01.20 [facility] [address] [id number] [address] [place] [address] Oct, [facility] [address] [id number] [address] [place] [address] Oct, Lumbago with sciatica, unspe cified side M54.40 [facility] [address] [id number] [address] [place] [address] Oct, Lumbago with sciatica, unspe cified side M54.40 [facility] [address] [id number] [address] [place] [address] Oct, [facility] [address] [facility] [id number] [address] [place] [address] Oct, [facility] [address] [facility] [id number] [address] [place] [address] [id number] Oct, Dental examination Z01.20 [facility] [address] [id number] [address] [place] [address] Oct, [facility] [address] [facility] [id number] [address] [place] [address] Oct, Pain in right knee M25.561 [facility] [address] [id number] [address] [place] [address] Sep, [facility] [address] [facility] [id number] [address] [place] [address] Sep, Other chronic pain G89.29 [facility] [address] [id number] [address] [place] [address] Sep, Lumbago with sciatica, unspe cified side M54.40 [facility] [address] [id number] [address] [place] [address] Sep, [facility] [address] [facility] [id number] [address] [place] [address] Sep, Viral URI J06.9 and BMI 45.0 -49.9, adult Z68.42 [facility] [address] [address] Aug, Foreign body hand S60.559A a nd BMI 45.0-49.9, adult Z68.42 [place] [address] [address] Aug, [place] [address] [address] Aug, Lumbago with sciatica, unspe cified side M54.40 [place] [address] [address] Aug, Vertigo R42 ; Dysfunction of both eustachian tubes H69.83 ; Low back pain M54.5 and Other chronic pain G89.29 [facility] [address] [address] Aug, Dizziness R42 and Acute bila teral otitis media H66.93 [place] [address] [address] Aug, Lumbago with sciatica, unspe cified side M54.40 [facility] [address] [place] [id number] [address] [place] [address] [id number] Jul, Dental examination Z01.20 [place] [address] [place] [id number] [address] [place] [address] Jul, [place] [address] [address] Jul, [place] [address] [address] Jul, Dysfunction of both eustachi an tubes H69.83 [place] [address] [address] Jul, Controlled type 2 diabetes m ellitus without complication, without long-term current use of insulin E11.9 [facility] [address] [facility] [id number] [address] [place] [address] Jul, Controlled type 2 diabetes m ellitus without complication, without long-term current use of insulin E11.9 [facility] [address] [id number] [address] [place] [address] Jul, Dizziness R42 and BMI 40.0-4 4.9, adult Z68.41 [facility] [address] [id number] [address] [place] [address] Jul, Controlled type 2 diabetes m ellitus without complication, without long-term current use of insulin E11.9 [place] [address] [id number] [address] [place] [address] Jul, Lumbago with sciatica, unspe cified side M54.40 [facility] [address] [id number] [place] [id number] Jul, Dental examination Z01.20 [facility] [address] [id number] [address] [place] [address] Jun, [facility] [address] [id number] [place] [id number] Jun, Dental examination Z01.20 [place] [address] [id number] [address] [place] [address] Jun, Controlled type 2 diabetes m ellitus without complication, without long-term current use of insulin E11.9 [facility] [address] [id number] [address] [place] [address] Jun, Lumbago with sciatica, unspe cified side M54.40 [facility] [address] [id number] [address] [place] [address] [id number] May, Dental examination Z01.20 [facility] [address] [id number] [address] [place] [address] May, Controlled type 2 diabetes m ellitus without complication, without long-term current use of insulin E11.9 [facility] [address] [id number] [address] [place] [address] [id number] 19 May, 2017 Dental examination Z01.20 [facility] [address] [id number] [address] [place] [address] 18 May, 2017 Bronchitis J40 ; Dry mouth R 68.2 ; Non morbid obesity E66.9 and Controlled type 2 diabetes mellitus without complication, without long-term current use of insulin E11.9 [facility] [address] [id number] [address] [place] [address] 16 May, 2017 Encounter for immunization Z 23 [facility] [address] [id number] [address] [place] [address] 07 May, 2017 Lumbago with sciatica, unspe cified side M54.40 [facility] [address] [id number] [address] [place] [address] 05 May, 2017 [facility] [address] [id number] [address] [place] [address] [id number] Apr, Dental examination Z01.20 [facility] [address] [id number] [address] [place] [address] Apr, Lumbago with sciatica, unspe cified side M54.40 [facility] [address] [id number] [address] [place] [address] Mar, Lumbago with sciatica, left side M54.42 [facility] [address] [id number] [address] [place] [address] Mar, [facility] [address] [id number] [address] [place] [address] Mar, Lumbar neuritis M54.16 [facility] [address] [id number] [address] [place] [address] Mar, [facility] [address] [place] [id number] [address] [place] [address] [id number] Mar, Dental examination Z01.20 [place] [address] [facility] [id number] [address] [place] [address] Mar, MELE (obstructive sleep apnea ) G47.33 ; Neuropathy involving both lower extremities G57.93 and Frequent headaches R51 [place] [address] [id number] [address] [place] [address] Mar, Lumbago with sciatica, unspe cified side M54.40 [place] [address] [id number] [address] [place] [address] Feb, Lumbago with sciatica, unspe cified side M54.40 and Controlled type 2 diabetes mellitus without complication, without long-term current use of insulin E11.9 [place] [address] [facility] [id number] [address] [place] [address] January, Hypertension, benign I10 and Bilateral low back pain with sciatica, sciatica laterality unspecified M54.40 [place] [address] [id number] [address] [place] [address] January, Hypertension, benign I10 ; L umbago with sciatica, unspecified side M54.40 ; Other chronic pain G89.29 and Controlled type 2 diabetes mellitus without complication, without long-term current use of insulin E11.9 [place] [address] [facility] [id number] [address] [place] [address] January, Lumbar neuritis M54.16 [place] [address] [id number] [address] [place] [address] January, [place] [address] [facility] [id number] [address] [place] [id number] Dec, Lumbago with sciatica, right side M54.41 and Lumbar neuritis M54.16 [place] [address] [facility] [id number] [address] [place] [address] Dec, Lumbar neuritis M54.16 [place] [address] [place] [id number] [address] [place] [id number] Dec, Lumbar neuritis M54.16 [place] [address] [address] [facility] [id number] [address] [place] [id number] 16 Nov, 2016 Lumbar neuritis M54.16 ; Lum bago with sciatica, right side M54.41 ; Controlled type 2 diabetes mellitus without complication, without long-term current use of insulin E11.9 and Rash and nonspecific skin eruption R21 [place] [address] [address] [place] [id number] [address] [place] [phone] Nov, Lumbar neuritis M54.16 and P alexi romany L23.7 [place] [address] [address] [place] [id number] [place] [id number] 16 Oct, 2016 Lumbar neuritis M54.16 ; Cou ghing R05 and Mood disorder F39 [place] [address] [address] [place] [id number] [address] [place] [phone] Sep, Lumbago with sciatica, right side M54.41 [place] [address] [address] [place] [id number] [place] [phone] Sep, Adjustment disorder with dis turbance of emotion F43.29 and Pain management R52 [place] [address] [address] [place] [id number] [address] [place] [id number] Sep, [place] [address] [address] [place] [id number] [address] [place] [phone] Sep, [place] [address] [address] [place] [id number] [address] [place] [id number] Sep, Controlled type 2 diabetes evens reyna without complication, without long-term current use of insulin E11.9 and Lumbago with sciatica, unspecified side M54.40 [place] [address] [address] [place] [place] [id number] [address] [place] [address] Aug, Controlled type 2 diabetes evens reyna without complication, without long-term current use of insulin E11.9 ; Pain in right knee M25.561 ; Pain in left knee M25.562 ; Other chronic pain G89.29 ; Lumbago with sciatica, right side M54.41 ; Neck pain M54.2 and Encounter for immunization Z23 [facility] [address] [id number] [address] [place] [id number] Jul, [facility] [address] [id number] [address] [place] [id number] Jul, Controlled type 2 diabetes evens reyna without complication, without long-term current use of insulin E11.9 [facility] [address] [id number] [address] [place] [id number] Jul, [facility] [address] [id number] [address] [place] [phone] Jul, [facility] [address] [id number] [address] [place] [address] Jul, Lumbago with sciatica, left side M54.42 ; Lumbago with sciatica, right side M54.41 and Other chronic pain G89.29 [facility] [address] [id number] [address] [place] [phone] Jul, [facility] [address] [id number] [address] [place] [phone] Jul, [facility] [address] [id number] [address] [place] [id number] Jun, [facility] [address] [id number] [address] [place] [phone] Jun, Lumbago with sciatica, right side M54.41 and Other chronic pain G89.29 [facility] [address] [id number] [address] [place] [address] Jun, Cervicalgia M54.2 ; Lumbago with sciatica, unspecified side M54.40 and Other chronic pain G89.29 [facility] [address] [id number] [address] [place] [address] 15 May, 2016 Pain in right knee M25.561 ; Pain in left knee M25.562 and Other chronic pain G89.29 [facility] [address] [id number] [address] [place] [address] 14 May, 2016 [facility] [address] [id number] [address] [place] [id number] Apr, Other chronic pain G89.29 an d Pain in right knee M25.561 [facility] [address] [id number] [address] [place] [address] Apr, Pain in right knee M25.561 [facility] [address] [id number] [address] [place] [address] Mar, [facility] [address] [id number] [address] [place] [phone] Mar, Mood disorder F39 and Contro lled type 2 diabetes mellitus without complication, without long-term current use of insulin E11.9 [facility] [address] [id number] [address] [place] [address] Mar, Pain in right knee M25.561 ; Pain in left knee M25.562 ; Other chronic pain G89.29 ; Obstructive sleep apnea syndrome G47.33 ; Mood disorder F39 and Controlled type 2 diabetes mellitus without complication, without long- term current use of insulin E11.9 [facility] [address] [id number] [address] [place] [id number] Mar, [facility] [address] [id number] [address] [place] [id number] Feb, Dental examination Z01.20 [facility] [address] [id number] [address] [place] [address] Feb, [facility] [address] [id number] [address] [place] [id number] Feb, Osteoarthritis of right knee , unspecified osteoarthritis type M17.9 [facility] [address] [id number] [address] [place] [address] January, [facility] [address] [id number] [address] [place] [address] [id number] January, Dental examination Z01.20 [facility] [address] [id number] [address] [place] [address] January, [facility] [address] [id number] [address] [place] [address] [id number] January, Dental examination Z01.20 an d Caries K02.9 [facility] [address] [id number] [address] [place] [phone] Dec, Encounter for other preproce dural examination Z01.818 [facility] [address] [id number] [address] [place] [id number] Dec, [facility] [address] [id number] [address] [place] [address] Dec, Knee pain M25.569 [facility] [address] [id number] [address] [place] [address] 15 Dec, 2015 Pain in right knee M25.561 [facility] [address] [id number] [address] [place] [address] 14 Dec, 2015 [facility] [address] [id number] [address] [place] [id number] Dec, [facility] [address] [id number] [address] [place] [id number] Dec, Encounter for immunization Z 23 [facility] [address] [id number] [address] [place] [id number] Dec, [facility] [address] [id number] [address] [place] [id number] Dec, [facility] [address] [id number] [address] [place] [phone] Nov, [facility] [address] [id number] [address] [place] [address] Nov, Hypertension, benign I10 ; C ervicalgia M54.2 ; Pain in right knee M25.561 and Pain in left knee M25.562 [place] [address] [facility] [id number] [address] [place] [address] Oct, [facility] [address] [facility] [id number] [address] [place] [id number] Oct, [facility] [address] [place] [id number] [place] [address] Oct, Osteoarthritis of both knees M17.0 [place] [address] [place] [id number] [place] [phone] Oct, [place] [address] [place] [id number] [place] [address] Oct, Low back pain M54.5 [place] [address] [place] [id number] [place] [address] Oct, Low back pain M54.5 ; Sciati ca, unspecified side M54.30 ; Pain in right knee M25.561 ; Pain in left knee M25.562 ; Pain in right shoulder M25.511 and Pain in left shoulder M25.512 [place] [address] [place] [id number] [address] [place] [address] Oct, [place] [address] [place] [id number] [address] [place] [address] Sep, Pain in right hip M25.551 [place] [address] [place] [id number] [address] [place] [address] Sep, Acute upper respiratory infe ction, unspecified J06.9 [place] [address] [place] [id number] [address] [place] [id number] Aug, Acute upper respiratory infe ction, unspecified J06.9 and Other viral agents as the cause of diseases classified elsewhere B97.89 [facility] [address] [id number] [address] [place] [address] Jul, Arthritis M19.90 [facility] [address] [id number] [address] [place] [address] Jun, Arthritis M19.90 ; Pain in r ight hip M25.551 ; Pain in left hip M25.552 ; Bilateral low back pain with sciatica, sciatica laterality unspecified M54.40 ; Neck pain M54.2 ; Upper back pain M54.9 and Knee pain, unspecified laterality M25.569 [facility] [address] [id number] [address] [place] [address] May, Osteoarthritis of both knees 715.96 [facility] [address] [id number] [address] [place] [address] May, Rash 782.1 [place] [address] [facility] [id number] [address] [place] [address] Apr, Lumbar strain 847.2 [facility] [address] [id number] [address] [place] [address] Apr, Rash 782.1 [facility] [address] [facility] [id number] [address] [place] [address] Mar, Rash 782.1 [facility] [address] [facility] [id number] [address] [place] [address] Feb, Rash 782.1 ; Hemorrhoids 455 .6 and Constipation 564.00 [facility] [address] [id number] [address] [place] [address] Feb, Osteoarthritis of both knees 715.96 [facility] [address] [id number] [address] [place] [phone] January, [facility] [address] [facility] [id number] [address] [place] [address] Dec, [facility] [address] [id number] [address] [place] [phone] 14 Dec, 2014 [facility] [address] [id number] [address] [place] [address], [place] [address] 13 Dec, 2014 [facility] [address] [id number] [address] [place] [address], [place] [address] 18 Nov, 2014 [facility] [address] [id number] [address] [place] [address], [place] [address] 18 Nov, 2014 [facility] [address] [id number] [address] [place] [address], [place] [address] 18 Nov, 2014 [facility] [address] [id number] [address] [place] [address], [place] [id number] 18 Nov, 2014 [facility] [address] [id number] [address] [place] [address], [place] [address] Nov, [facility] [address] [id number] [address] [place] [address], [place] [address] Nov, [facility] [address] [id number] [address] [place] [address], [place] [address] Oct, [facility] [address] [id number] [address] [place] [address], [place] [address] Oct, [facility] [address] [id number] [address] [place] [address], [place] [address] Oct, [facility] [address] [id number] [address] [place] [address], [place] [address] Oct, 2014 [facility] [address] [id number] [address] [place] [address], [place] [address] Oct, 2014 [facility] [address] [id number] [address] [place] [address], [place] [address] Oct, 2014 [facility] [address] [id number] [address] [place] [phone] Oct, 2014 [facility] [address] [id number] [address] [place] [phone] Oct, [facility] [address] [id number] [address] [place] [address], [place] [address] Oct, 2014 [facility] [address] [id number] [address] [place] [address], [place] [address] Oct, [facility] [address] [id number] [address] [place] [address], [place] [address] Oct, [facility] [address] [id number] [address] [place] [address], [place] [address] Sep, [facility] [address] [id number] [address] [place] [address], [place] [address] Sep, [facility] [address] [id number] [address] [place] [address], [place] [address] Sep, [facility] [address] [id number] [address] [place] [address], [place] [address] Sep, [facility] [address] [id number] [address] [place] [address], [place] [address] Sep, [facility] [address] [id number] [address] [place] [address], [place] [address] Sep, [facility] [address] [id number] [address] [place] [address], [place] [address] Aug, [facility] [address] [id number] [address] [place] [address], [place] [address] Aug, [facility] [address] [id number] [address] [place] [address], [place] [address] Aug, [facility] [address] [id number] [address] [place] [address], [place] [address] Aug, [facility] [address] [id number] [address] [place] [address], [place] [address] Aug, [facility] [address] [id number] [address] [place] [address], [place] [address] Aug, [facility] [address] [id number] [address] [place] [address], [place] [address] 05 Aug, 2014 [facility] [address] [id number] [address] [place] [address], [place] [address] Aug, [facility] [address] [id number] [address] [place] [address], [place] [address] Aug, [facility] [address] [id number] [address] [place] [address], [place] [address] Aug, [facility] [address] [id number] [address] [place] [address], [place] [address] Jul, [facility] [address] [id number] [address] [place] [address], [place] [address] Jul, [facility] [address] [id number] [address] [place] [address], [place] [address] Jul, [facility] [address] [id number] [address] [place] [address], [place] [address] Jul, [facility] [address] [id number] [address] [place] [address], [place] [address] Jun, [facility] [address] [id number] [address] [place] [address], [place] [address] Jun, [facility] [address] [id number] [address] [place] [address], [place] [address] Jun, [facility] [address] [id number] [address] [place] [address], [place] [address] Jun, [facility] [address] [id number] [address] [place] [address], [place] [address] Jun, [facility] [address] [id number] [address] [place] [address], [place] [address] Jun, [facility] [address] [id number] [address] [place] [address], [place] [address] Jun, [facility] [address] [id number] [address] [place] [phone] Jun, [facility] [address] [id number] [facility] [place] [address] 24 May, 2013 [facility] [address] [id number] [address] [place] [address], [place] [address] 24 May, 2014 [facility] [address] [id number] [address] [place] [address], [place] [address] 19 May, 2014 [facility] [address] [id number] [address] [place] [address], [place] [address] 19 May, 2014 [facility] [address] [id number] [address] [place] [address], [place] [address] 15 May, 2014 [facility] [address] [id number] [address] [place] [address], [place] [address] 15 May, 2014 [facility] [address] [id number] [address] [place] [address], [place] [address] 15 May, 2014 [facility] [address] [id number] [address] [place] [address], [place] [address] May, [facility] [address] [id number] [address] [place] [address], [place] [address] Apr, [facility] [address] [id number] [address] [place] [address], [place] [address] Apr, [facility] [address] [id number] [address] [place] [address], [place] [address] Apr, [facility] [address] [id number] [address] [place] [address], [place] [address] Apr, [facility] [address] [id number] [address] [place] [address], [place] [address] Apr, [facility] [address] [id number] [address] [place] [address], [place] [address] Apr, [facility] [address] [id number] [address] [place] [address], [place] [address] Apr, [facility] [address] [id number] [address] [place] [address], [place] [address] Apr, [facility] [address] [id number] [address] [place] [address], [place] [address] Apr, [facility] [address] [id number] [address] [place] [address], [place] [address] Apr, [facility] [address] [id number] [address] [place] [address], [place] [address] Apr, [facility] [address] [id number] [address] [place] [address], [place] [address] Apr, [facility] [address] [id number] [address] [place] [address], [place] [address] Mar, [facility] [address] [id number] [address] [place] [address], [place] [address] Mar, [facility] [address] [id number] [address] [place] [address], [place] [address] Mar, [facility] [address] [id number] [address] [place] [address], [place] [address] Mar, [facility] [address] [id number] [address] [place] [address], [place] [address] Mar, [facility] [address] [id number] [address] [place] [address], [place] [address] Mar, [facility] [address] [id number] [address] [place] [address], [place] [address] Feb, [facility] [address] [id number] [address] [place] [address], [place] [address] Feb, [facility] [address] [id number] [address] [place] [address], [place] [address] Feb, [facility] [address] [id number] [address] [place] [address], [place] [address] Feb, [facility] [address] [id number] [address] [place] [address], [place] [address] Feb, [facility] [address] [id number] [facility] [place] [address] 16 Feb, 2014 [facility] [address] [id number] [address] [place] [address], [place] [address] Feb, [facility] [address] [id number] [address] [place] [address], [place] [address] Feb, [facility] [address] [id number] [address] [place] [address], [place] [address] Feb, [facility] [address] [id number] [address] [place] [address], [place] [address] Feb, [facility] [address] [id number] [address] [place] [address], [place] [address] Feb, [facility] [address] [id number] [address] [place] [address], [place] [address] Feb, [facility] [address] [id number] [address] [place] [address], [place] [address] Feb, [facility] [address] [id number] [address] [place] [address], [place] [address] Feb, [facility] [address] [id number] [address] [place] [address], [place] [address] January, [facility] [address] [id number] [address] [place] [address], [place] [address] January, [facility] [address] [id number] [address] [place] [address], [place] [address] January, [facility] [address] [id number] [address] [place] [address], [place] [address] January, [facility] [address] [id number] [address] [place] [address], [place] [address] January, [facility] [address] [id number] [address] [place] [address], [place] [address] January, [facility] [address] [id number] [address] [place] [address], [place] [address] Dec, [facility] [address] [id number] [facility] [place] [address] Dec, [facility] [address] [id number] [address] [place] [address], [place] [address] Dec, [facility] [address] [id number] [address] [place] [address], [place] [address] Dec, [facility] [address] [id number] [address] [place] [address], [place] [address] Dec, [facility] [address] [id number] [address] [place] [address], [place] [address] Dec, [facility] [address] [id number] [address] [place] [address], [place] [address] Dec, [facility] [address] [id number] [address] [place] [address], [place] [address] Dec, [facility] [address] [id number] [address] [place] [address], [place] [address] Nov, [facility] [address] [id number] [address] [place] [address], [place] [address] Nov, [facility] [address] [id number] [address] [place] [address], [place] [address] Nov, [facility] [address] [id number] [address] [place] [address], [place] [address] Nov, [facility] [address] [id number] [address] [place] [address], [place] [address] Nov, [facility] [address] [id number] [address] [place] [address], [place] [address] Nov, [facility] [address] [id number] [address] [place] [address], [place] [address] Nov, [facility] [address] [id number] [address] [place] [address], [place] [address] Nov, [facility] [address] [id number] [address] [place] [address], [place] [address] Oct, [facility] [address] [id number] [address] [place] [address], [place] [address] Oct, [facility] [address] [id number] [address] [place] [address], [place] [address] Oct, [facility] [address] [id number] [address] [place] [address], [place] [address] Oct, [facility] [address] [id number] [address] [place] [address], [place] [address] Oct, [facility] [address] [id number] [address] [place] [address], [place] [address] Oct, [facility] [address] [id number] [address] [place] [address], [place] [address] Oct, [facility] [address] [id number] [address] [place] [address], [place] [address] Oct, [facility] [address] [id number] [address] [place] [address], [place] [address] Oct, [facility] [address] [id number] [address] [place] [address], [place] [address] Oct, [facility] [address] [id number] [address] [place] [address], [place] [address] Sep, [facility] [address] [id number] [address] [place] [address], [place] [address] Sep, [facility] [address] [id number] [address] [place] [address], [place] [address] Sep, [facility] [address] [id number] [address] [place] [address], [place] [address] Sep, [facility] [address] [id number] [address] [place] [address], [place] [address] Sep, [facility] [address] [id number] [address] [place] [address], [place] [address] Sep, [facility] [address] [id number] [address] [place] [address], [place] [address] Aug, [facility] [address] [id number] [address] [place] [address], [place] [address] Aug, [facility] [address] [id number] [address] [place] [address], [place] [address] Aug, [facility] [address] [id number] [address] [place] [address], [place] [address] Aug, [facility] [address] [id number] [address] [place] [address], [place] [address] Aug, [facility] [address] [id number] [address] [place] [address], [place] [address] Aug, [facility] [address] [id number] [address] [place] [address], [place] [address] Aug, [facility] [address] [id number] [address] [place] [address], [place] [address] Aug, [facility] [address] [id number] [address] [place] [address], [place] [address] Jul, [facility] [address] [id number] [address] [place] [address], [place] [address] Jul, [facility] [address] [id number] [address] [place] [address], [place] [address] Jul, [facility] [address] [id number] [address] [place] [address], [place] [address] Jul, [facility] [address] [id number] [address] [place] [address], [place] [address] Jul, [facility] [address] [id number] [address] [place] [address], [place] [address] Jul, [facility] [address] [id number] [address] [place] [address], [place] [address] Jun, [facility] [address] [id number] [address] [place] [address] [place] [address] Jun, [facility] [address] [id number] [address] [place] [address], [place] [id number] Jun, [facility] [address] [id number] [address] [place] [address], [place] [address] May, [facility] [address] [id number] [address] [place] [address], [place] [address] May, [facility] [address] [id number] [address] [place] [address], [place] [address] May, [facility] [address] [id number] [address] [place] [address], [place] [address] Apr, [facility] [address] [id number] [address] [place] [address], [place] [address] Apr, [facility] [address] [id number] [address] [place] [address], [place] [address] Apr, [facility] [address] [id number] [address] [place] [address], [place] [address] Apr, [facility] [address] [id number] [address] [place] [address], [place] [address] Mar, [facility] [address] [id number] [address] [place] [address], [place] [address] Mar, [facility] [address] [id number] [address] [place] [address], [place] [address] Mar, [facility] [address] [id number] [address] [place] [address], [place] [address] Mar, [facility] [address] [id number] [address] [place] [address], [place] [address] Feb, [facility] [address] [id number] [address] [place] [address], [place] [address] Feb, [facility] [address] [id number] [address] [place] [address], [place] [address] Feb, [facility] [address] [id number] [address] [place] [address], [place] [address] Feb, [facility] [address] [id number] [address] [place] [address], [place] [address] January, [facility] [address] [id number] [address] [place] [address], [place] [address] January, [facility] [address] [id number] [address] [place] [address], [place] [address] January, [facility] [address] [id number] [address] [place] [address], [place] [address] Nov, [facility] [address] [id number] [address] [place] [address], [place] [address] Nov, [facility] [address] [id number] [address] [place] [address], [place] [address] Oct, [facility] [address] [id number] [address] [place] [address], [place] [address] Oct, [facility] [address] [id number] [address] [place] [address], [place] [address] Oct, [facility] [address] [id number] [address] [place] [address], [place] [address] Oct, [facility] [address] [id number] [address] [place] [address], [place] [address] Sep, [facility] [address] [id number] [address] [place] [address], [place] [address] Sep, [facility] [address] [id number] [address] [place] [address], [place] [address] Sep, [facility] [address] [id number] [address] [place] [address], [place] [address] Aug, [facility] [address] [id number] [address] [place] [address], [place] [address] Aug, [facility] [address] [id number] [address] [place] [address], [place] [address] Aug, [facility] [address] [id number] [address] [place] [address], [place] [address] Aug, [facility] [address] [id number] [address] [place] [address], [place] [address] Aug, [facility] [address] [id number] [address] [place] [address], [place] [address] Aug, [facility] [address] [id number] [address] [place] [address], [place] [address] Jul, [facility] [address] [id number] [address] [place] [address], [place] [address] Jul, [facility] [address] [id number] [address] [place] [address], [place] [address] Jun, [facility] [address] [id number] [address] [place] [address], [place] [address] Jun, [facility] [address] [id number] [address] [place] [address], [place] [address] Jun, [facility] [address] [id number] [address] [place] [address], [place] [address] Apr, [facility] [address] [id number] [address] [place] [address], [place] [address] Apr, [facility] [address] [id number] [address] [place] [address], [place] [address] Mar, [facility] [address] [id number] [address] [place] [id number] Mar, [facility] [address] [id number] [address] [place] [address], [place] [address] Mar, [facility] [address] [id number] [address] [place] [address], [place] [address] Mar, [facility] [address] [id number] [address] [place] [address], [place] [address] Feb, [facility] [address] [id number] [address] [place] [address], [place] [address] Feb, [facility] [address] [id number] [address] [place] [address], [place] [address] Feb, [facility] [address] [id number] [address] [place] [address], [place] [address] January, [facility] [address] [id number] [address] [place] [address], [place] [address] January, [facility] [address] [id number] [address] [place] [address], [place] [address] January, [facility] [address] [id number] [address] [place] [address], [place] [address] January, [facility] [address] [id number] [address] [place] [address], [place] [address] Dec, [facility] [address] [id number] [address] [place] [address], [place] [address] Dec, [facility] [address] [id number] [address] [place] [address], [place] [address] Nov, [facility] [address] [id number] [address] [place] [address], [place] [address] Nov, [facility] [address] [id number] [address] [place] [address], [place] [address] 16 Oct, 2011 [facility] [address] [id number] [address] [place] [address], [place] [address] Oct, [facility] [address] [id number] [address] [place] [address], [place] [address] Sep, [facility] [address] [id number] [address] [place] [address], [place] [address] Sep, [facility] [address] [id number] [address] [place] [address], [place] [address] Sep, [facility] [address] [id number] [address] [place] [address], [place] [address] Sep, [facility] [address] [id number] [address] [place] [address], [place] [address] 16 Aug, 2011 [facility] [address] [id number] [address] [place] [address], [place] [address] 16 Aug, 2011 [facility] [address] [id number] [address] [place] [address], [place] [address] Aug, [facility] [address] [id number] [address] [place] [address], [place] [address] Jul, [facility] [address] [id number] [address] [place] [address], [place] [address] Aug, [facility] [address] [id number] [address] [place] [address], [place] [address] Aug, [facility] [address] [id number] [address] [place] [address], [place] [address] Aug, [facility] [address] [id number] [address] [place] [address], [place] [address] Aug, [facility] [address] [id number] [address] [place] [address], [place] [address] Jul, [facility] [address] [id number] [address] [place] [address], [place] [id number] Jul, [facility] [address] [id number] [address] [place] [address], [place] [address] Jul, [facility] [address] [id number] [address] [place] [id number] Jun, [facility] [address] [id number] [address] [place] [address], [place] [address] Jun, [facility] [address] [id number] [address] [place] [address], [place] [address] Jun, [facility] [address] [id number] [address] [place] [address], [place] [address] Apr, [facility] [address] [id number] [address] [place] [address] Mar, IMMUNIZATIONS No Known Immunizations SOCIAL HISTORY [...]
--- OUTSIDE RECORDS SUMMARY | 2020-03-18 14:54 | XMS REPORT ---
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 Name Role Phone REYNA WAYNE Unavailable PROBLEMS Type Condition ICD9-CM Code SFW02-MD Code Onset Dates Condition S tatus SNOMED Code Problem Hypertension, benign I10 Active 02620627 Problem Other chronic pain G89.29 Active 8 7598598 Problem Lumbago with sciatica, unspecified side M54.40 Active 567275953 Problem Controlled type 2 diabetes m ellitus without complication, without long- term current use of insulin E11.9 Active 076513403 Problem Lumbago with sciatica, right side M54.41 Active 867051964 Problem Adjustment disorder with disturbance of emotion F4 3.29 Active 11892712 Problem MELE (obstructive sleep apnea) G47.33 Active 48313873 Problem Non morbid obesity E66.9 Active 4 42726160 Problem Hammer toe of left foot M20.42 Active 792066178 Problem Mood disorder F39 Active 458660 05 Problem Deformity of left foot M21.962 Active 722533509 Problem Lumbago with sciatica, left side M54.42 Active 361197526 Problem Erectile dysfunction due to diseases classified elsewhere N52.1 Active 034408757 Problem Obstructive sleep apnea syndrome G47.33 Active 94037030 Problem Type 2 diabetes mellitus wit h diabetic neuropathy, without long-term current use of insulin E11.40 Active 06396 006 Problem Essential hypertension I10 Active 22511037 ALLERGIES No Information ENCOUNTERS Encounter Location Date Diagnosis [facility] [address] [id number] [address] [place] [id number] January, [facility] [id number] [address] [place] [address] Dec, Acute diffuse otitis externa of left ear H60.312 [facility] [address] [address] Nov, Viral URI J06.9 and Flu-like symptoms R68.89 [place] [address] [place] [address] Nov, Type 2 diabetes mellitus wit h diabetic neuropathy, without long- term current use of insulin E11.40 ; Family history of prostate cancer Z80.42 and Prostate cancer screening Z12.5 [place] [address] [address] Nov, [place] [address] [address] Sep, [place] [address] [address] Aug, [place] [address] [address] Jul, Lumbago with sciatica, unspe cified side M54.40 [place] [address] [address] Jun, Lumbago with sciatica, unspe cified side M54.40 [place] [address] [address] Jun, URI, acute J06.9 [place] [address] [address] May, Lumbago with sciatica, unspe cified side M54.40 [place] [address] [address] May, [address] [address] May, Type 2 diabetes mellitus wit h diabetic neuropathy, without long- term current use of insulin E11.40 and Hammer toe of left foot M20.42 [place] [address] [address] May, [facility] [address] [facility] [id number] [address] [place] [address] May, [facility] [address] [facility] [id number] [address] [place] [address] May, [facility] [address] [facility] [id number] [address] [place] [address] Apr, Lumbago with sciatica, unspe cified side M54.40 [facility] [address] [facility] [id number] [address] [place] [address] Apr, [facility] [address] [facility] [id number] [address] [place] [address] Apr, [address] [place] [address] Apr, Hammer toe of left foot M20. 42 ; Chest pain R07.9 ; Preoperative examination Z01.818 and Morbid obesity E66.01 [facility] [address] [facility] [id number] [address] [place] [address] Apr, Morbid obesity E66.01 ; Bron chitis J40 and High risk medications (not anticoagulants) long-term use Z79.899 [facility] [address] [facility] [id number] [address] [place] [id number] Apr, Lumbago with sciatica, unspe cified side M54.40 [facility] [address] [facility] [id number] [address] [place] [address] Apr, [facility] [address] [facility] [id number] [address] [place] [address] Mar, Lumbar neuritis M54.16 and M orbid obesity E66.01 [facility] [address] [facility] [id number] [address] [place] [address] Mar, [facility] [address] [facility] [id number] [address] [place] [address] Mar, [facility] [address] [id number] [address] [place] [address] Mar, Lumbago with sciatica, unspe cified side M54.40 [facility] [address] [facility] [id number] [address] [place] [address] Mar, Morbid obesity E66.01 ; Coug marco R05 ; 2+ pitting edema R60.9 and Controlled type 2 diabetes mellitus without complication, without long-term current use of insulin E11.9 [facility] [address] [id number] [address] [place] [address] Feb, [facility] [address] [id number] [address] [place] [address] Feb, Lumbago with sciatica, unspe cified side M54.40 [place] [address] [facility] [id number] [address] [place] [address] Feb, [facility] [address] [facility] [id number] [address] [place] [address] Feb, Controlled type 2 diabetes m ellitus without complication, without long-term current use of insulin E11.9 and Morbid obesity E66.01 [facility] [address] [id number] [address] [place] [address] January, Deformity of left foot M21.9 62 [facility] [address] [id number] [address] [place] [address] January, [facility] [address] [id number] [address] [place] [address] January, Lumbago with sciatica, unspe cified side M54.40 [facility] [address] [facility] [id number] [address] [place] [address] January, [facility] [address] [facility] [id number] [address] [place] [address] January, Lumbago with sciatica, unspe cified side M54.40 [place] [address] [facility] [id number] [address] [place] [address] January, [facility] [id number] [place] [address] January, Acute right-sided thoracic b ack pain M54.6 [place] [address] [place] [id number] [place] [address] January, Acute right-sided thoracic b ack pain M54.6 [facility] [id number] [address] [place] [address] January, Chest pain, unspecified type R07.9 ; Morbid obesity E66.01 and Scabies B86 [place] [address] [place] [id number] [place] [address] Dec, Lumbago with sciatica, unspe cified side M54.40 [place] [address] [place] [id number] [address] [place] [address] Dec, Toenail fungus B35.1 [place] [address] [place] [id number] [address] [place] [address] Dec, Toenail fungus B35.1 [place] [address] [place] [id number] [place] [address] Dec, Acute right-sided thoracic b ack pain M54.6 [place] [address] [place] [id number] [place] [address] Dec, Lumbago with sciatica, unspe cified side M54.40 [place] [address] [place] [id number] [place] [address] Nov, Hammer toe of left foot M20. 42 ; Deformity of left foot M21.962 and Type 2 diabetes mellitus with diabetic neuropathy, without long-term current use of insulin E11.40 [facility] [address] [facility] [id number] [address] [place] [address] Nov, Acute right-sided thoracic b ack pain M54.6 ; Morbid obesity E66.01 and Rt flank pain R10.9 [place] [address] [address] Nov, Lumbago with sciatica, unspe cified side M54.40 [place] [address] [address] Oct, Lumbago with sciatica, unspe cified side M54.40 [place] [address] [address] Sep, Lumbago with sciatica, unspe cified side M54.40 [place] [address] [address] Sep, [place] [address] [address] Sep, BMI 40.0-44.9, adult Z68.41 ; Lumbago with sciatica, left side M54.42 ; Lumbago with sciatica, right side M54.41 and Other chronic pain G89.29 [place] [address] [address] Aug, Lumbago with sciatica, unspe cified side M54.40 [place] [address] [address] Aug, Type 2 diabetes mellitus wit h diabetic neuropathy, without long- term current use of insulin E11.40 ; Hammer toe of left foot M20.42 ; Hypertension, benign I10 and Frequent headaches R51 [place] [address] [address] Jul, Lumbago with sciatica, unspe cified side M54.40 [place] [address] [place] [id number] [place] [address] Jul, [place] [address] [place] [id number] [address] [place] [address] Jul, Essential hypertension I10 a nd Controlled type 2 diabetes mellitus without complication, without long-term current use of insulin E11.9 [place] [address] [facility] [id number] [address] [place] [address] Jul, Essential hypertension I10 ; Controlled type 2 diabetes mellitus without complication, without long-term current use of insulin E11.9 and BMI 40.0-44.9, adult Z68.41 [place] [address] [facility] [id number] [address] [place] [address] Jul, Dysfunction of left eustachi an tube H69.82 [place] [address] [facility] [id number] [address] [place] [address] Jul, Lumbago with sciatica, unspe cified side M54.40 [facility] [id number] [place] [id number] Jun, Dental examination Z01.20 [place] [address] [place] [id number] [place] [address] Jun, Lumbago with sciatica, unspe cified side M54.40 and Encounter for immunization Z23 [place] [address] [place] [id number] [place] [address] Jun, Dysfunction of left eustachi an tube H69.82 [place] [id number] [facility] [id number] [place] [address] [id number] Jun, Dental examination Z01.20 [facility] [address] [facility] [id number] [address] [place] [address] Jun, Other chronic pain G89.29 [facility] [address] [id number] [address] [place] [id number] Jun, Dental examination Z01.20 [facility] [address] [facility] [id number] [address] [place] [address] Jun, [place] [address] [place] [id number] [address] [place] [address] Jun, Bronchitis J40 ; Dysfunction of left eustachian tube H69.82 and BMI 45.0-49.9, adult Z68.42 [place] [address] [place] [id number] [place] [address] Jun, Lumbago with sciatica, unspe cified side M54.40 [place] [address] [place] [id number] [place] [address] May, Type 2 diabetes mellitus wit h diabetic neuropathy, without long- term current use of insulin E11.40 and Hypertension, benign I10 [place] [address] [address] May, Lumbago with sciatica, unspe cified side M54.40 [facility] [address] [address] Apr, [place] [address] [address] Apr, Controlled type 2 diabetes m ellitus without complication, without long-term current use of insulin E11.9 ; Insect bite (nonvenomous), right ankle, initial encounter S90.561A ; Local infection of the skin and subcutaneous tissue, unspecified L08.9 ; Acute swimmer''s ear of left side H60.332 and BMI 45.0-49.9, adult Z68.42 [place] [address] [place] [id number] [place] [address] Apr, Lumbago with sciatica, unspe cified side M54.40 [place] [address] [address] Mar, [place] [address] [address] Mar, Lumbago with sciatica, unspe cified side M54.40 [place] [address] [place] [address] 14 Feb, 2018 Lumbago with sciatica, unspe cified side M54.40 [facility] [id number] [place] [address] Feb, BMI 45.0-49.9, adult Z68.42 and Obstructive sleep apnea syndrome G47.33 [facility] [address] [place] [address] January, Lumbar neuritis M54.16 [facility] [id number] [place] [address] January, Lumbago with sciatica, unspe cified side M54.40 [facility] [id number] [place] [address] Dec, Controlled type 2 diabetes m ellitus without complication, without long-term current use of insulin E11.9 ; Erectile dysfunction due to diseases classified elsewhere N52.1 and Mood disorder F39 [facility] [address] [place] [address] Dec, Lumbago with sciatica, unspe cified side M54.40 [facility] [id number] [place] [address] Dec, Obstructive sleep apnea synd luis G47.33 [facility] [id number] [place] [address] Nov, Lumbago with sciatica, unspe cified side M54.40 ; Hypertension, benign I10 and Mood disorder F39 [facility] [address] [facility] [id number] [address] [place] [address] Nov, Other chronic pain G89.29 [facility] [address] [facility] [id number] [address] [place] [address] Nov, Lumbago with sciatica, unspe cified side M54.40 [facility] [address] [facility] [id number] [address] [place] [address] [id number] Nov, Dental examination Z01.20 [facility] [address] [id number] [address] [place] [id number] Oct, [facility] [address] [id number] [address] [place] [address] Oct, Lumbago with sciatica, unspe cified side M54.40 [facility] [address] [id number] [address] [place] [address] Oct, Lumbago with sciatica, unspe cified side M54.40 [facility] [address] [id number] [address] [place] [address] Oct, [facility] [address] [facility] [id number] [address] [place] [address] Oct, [facility] [address] [facility] [id number] [address] [place] [address] [id number] Oct, Dental examination Z01.20 [facility] [address] [id number] [address] [place] [address] Oct, [facility] [address] [facility] [id number] [address] [place] [address] Oct, Pain in right knee M25.561 [facility] [address] [id number] [address] [place] [address] Sep, [facility] [address] [facility] [id number] [address] [place] [address] Sep, Other chronic pain G89.29 [facility] [address] [id number] [address] [place] [address] Sep, Lumbago with sciatica, unspe cified side M54.40 [facility] [address] [id number] [address] [place] [address] Sep, [facility] [address] [facility] [id number] [address] [place] [address] Sep, Viral URI J06.9 and BMI 45.0 -49.9, adult Z68.42 [facility] [address] [address] Aug, Foreign body hand S60.559A a nd BMI 45.0-49.9, adult Z68.42 [place] [address] [address] Aug, [place] [address] [address] Aug, Lumbago with sciatica, unspe cified side M54.40 [place] [address] [address] Aug, Vertigo R42 ; Dysfunction of both eustachian tubes H69.83 ; Low back pain M54.5 and Other chronic pain G89.29 [facility] [address] [address] Aug, Dizziness R42 and Acute bila teral otitis media H66.93 [place] [address] [address] Aug, Lumbago with sciatica, unspe cified side M54.40 [facility] [address] [place] [id number] [address] [place] [address] [id number] Jul, Dental examination Z01.20 [place] [address] [place] [id number] [address] [place] [address] Jul, [place] [address] [address] Jul, [place] [address] [address] Jul, Dysfunction of both eustachi an tubes H69.83 [place] [address] [address] Jul, Controlled type 2 diabetes m ellitus without complication, without long-term current use of insulin E11.9 [facility] [address] [facility] [id number] [address] [place] [address] Jul, Controlled type 2 diabetes m ellitus without complication, without long-term current use of insulin E11.9 [facility] [address] [id number] [address] [place] [id number] Jul, Dizziness R42 and BMI 40.0-4 4.9, adult Z68.41 [facility] [address] [id number] [address] [place] [address] Jul, Controlled type 2 diabetes m ellitus without complication, without long-term current use of insulin E11.9 [place] [address] [id number] [address] [place] [address] Jul, Lumbago with sciatica, unspe cified side M54.40 [facility] [address] [id number] [place] [address] [id number] Jul, Dental examination Z01.20 [facility] [address] [id number] [address] [place] [address] Jun, [facility] [id number] [place] [address] [id number] Jun, Dental examination Z01.20 [place] [address] [id number] [address] [place] [address] Jun, Controlled type 2 diabetes m ellitus without complication, without long-term current use of insulin E11.9 [facility] [address] [id number] [address] [place] [address] Jun, Lumbago with sciatica, unspe cified side M54.40 [facility] [address] [id number] [address] [place] [address] [id number] May, Dental examination Z01.20 [facility] [address] [id number] [address] [place] [address] May, Controlled type 2 diabetes m ellitus without complication, without long-term current use of insulin E11.9 [facility] [address] [id number] [address] [place] [address] [id number] 19 May, 2017 Dental examination Z01.20 [facility] [address] [id number] [address] [place] [id number] 18 May, 2017 Bronchitis J40 ; Dry mouth R 68.2 ; Non morbid obesity E66.9 and Controlled type 2 diabetes mellitus without complication, without long-term current use of insulin E11.9 [facility] [address] [id number] [address] [place] [address] 16 May, 2017 Encounter for immunization Z 23 [facility] [address] [id number] [address] [place] [id number] 07 May, 2017 Lumbago with sciatica, unspe cified side M54.40 [facility] [address] [id number] [address] [place] [id number] 05 May, 2017 [facility] [address] [id number] [address] [place] [address] [id number] Apr, Dental examination Z01.20 [facility] [address] [id number] [address] [place] [id number] Apr, Lumbago with sciatica, unspe cified side M54.40 [facility] [address] [id number] [address] [place] [id number] Mar, Lumbago with sciatica, left side M54.42 [facility] [address] [id number] [address] [place] [id number] Mar, [facility] [address] [id number] [address] [place] [address] Mar, Lumbar neuritis M54.16 [facility] [address] [id number] [address] [place] [address] Mar, [facility] [address] [place] [id number] [address] [place] [address] [id number] Mar, Dental examination Z01.20 [place] [address] [facility] [id number] [address] [place] [id number] Mar, MELE (obstructive sleep apnea ) G47.33 ; Neuropathy involving both lower extremities G57.93 and Frequent headaches R51 [place] [address] [id number] [address] [place] [id number] Mar, Lumbago with sciatica, unspe cified side M54.40 [place] [address] [id number] [address] [place] [address] Feb, Lumbago with sciatica, unspe cified side M54.40 and Controlled type 2 diabetes mellitus without complication, without long-term current use of insulin E11.9 [place] [address] [facility] [id number] [address] [place] [phone] January, Hypertension, benign I10 and Bilateral low back pain with sciatica, sciatica laterality unspecified M54.40 [place] [address] [id number] [address] [place] [phone] January, Hypertension, benign I10 ; L umbago with sciatica, unspecified side M54.40 ; Other chronic pain G89.29 and Controlled type 2 diabetes mellitus without complication, without long-term current use of insulin E11.9 [place] [address] [address] [facility] [id number] [address] [place] [phone] January, Lumbar neuritis M54.16 [place] [address] [id number] [address] [place] [phone] January, [place] [address] [address] [facility] [id number] [address] [place] [phone] Dec, Lumbago with sciatica, right side M54.41 and Lumbar neuritis M54.16 [place] [address] [address] [facility] [id number] [address] [place] [phone] Dec, Lumbar neuritis M54.16 [place] [address] [address] [place] [id number] [address] [place] [phone] Dec, Lumbar neuritis M54.16 [place] [address] [address] [facility] [id number] [address] [place] [phone] 16 Nov, 2016 Lumbar neuritis M54.16 ; Lum bago with sciatica, right side M54.41 ; Controlled type 2 diabetes mellitus without complication, without long-term current use of insulin E11.9 and Rash and nonspecific skin eruption R21 [place] [address] [address] [place] [id number] [address] [place] [phone] Nov, Lumbar neuritis M54.16 and P alexi romany L23.7 [place] [address] [address] [place] [id number] [place] [id number] 16 Oct, 2016 Lumbar neuritis M54.16 ; Cou ghing R05 and Mood disorder F39 [place] [address] [address] [place] [id number] [address] [place] [phone] Sep, Lumbago with sciatica, right side M54.41 [place] [address] [address] [place] [id number] [place] [phone] Sep, Adjustment disorder with dis turbance of emotion F43.29 and Pain management R52 [place] [address] [address] [place] [id number] [address] [place] [phone] Sep, [place] [address] [address] [place] [id number] [address] [place] [phone] Sep, [place] [address] [address] [place] [id number] [address] [place] [phone] Sep, Controlled type 2 diabetes evens reyna without complication, without long-term current use of insulin E11.9 and Lumbago with sciatica, unspecified side M54.40 [place] [address] [place] [id number] [address] [place] [id number] Aug, Controlled type 2 diabetes evens reyna without complication, without long-term current use of insulin E11.9 ; Pain in right knee M25.561 ; Pain in left knee M25.562 ; Other chronic pain G89.29 ; Lumbago with sciatica, right side M54.41 ; Neck pain M54.2 and Encounter for immunization Z23 [facility] [address] [id number] [address] [place] [id number] Jul, [facility] [address] [id number] [address] [place] [id number] Jul, Controlled type 2 diabetes evens reyna without complication, without long-term current use of insulin E11.9 [facility] [address] [id number] [address] [place] [phone] Jul, [facility] [address] [id number] [address] [place] [phone] Jul, [facility] [address] [id number] [address] [place] [id number] Jul, Lumbago with sciatica, left side M54.42 ; Lumbago with sciatica, right side M54.41 and Other chronic pain G89.29 [facility] [address] [id number] [address] [place] [id number] Jul, [facility] [address] [id number] [address] [place] [phone] Jul, [facility] [address] [id number] [address] [place] [phone] Jun, [facility] [address] [id number] [address] [place] [phone] Jun, Lumbago with sciatica, right side M54.41 and Other chronic pain G89.29 [facility] [address] [id number] [address] [place] [phone] Jun, Cervicalgia M54.2 ; Lumbago with sciatica, unspecified side M54.40 and Other chronic pain G89.29 [facility] [address] [id number] [address] [place] [id number] 15 May, 2016 Pain in right knee M25.561 ; Pain in left knee M25.562 and Other chronic pain G89.29 [facility] [address] [id number] [address] [place] [id number] 14 May, 2016 [facility] [address] [id number] [address] [place] [id number] Apr, Other chronic pain G89.29 an d Pain in right knee M25.561 [facility] [address] [id number] [address] [place] [id number] Apr, Pain in right knee M25.561 [facility] [address] [id number] [address] [place] [id number] Mar, [facility] [address] [id number] [address] [place] [phone] Mar, Mood disorder F39 and Contro lled type 2 diabetes mellitus without complication, without long-term current use of insulin E11.9 [facility] [address] [id number] [address] [place] [id number] Mar, Pain in right knee M25.561 ; Pain in left knee M25.562 ; Other chronic pain G89.29 ; Obstructive sleep apnea syndrome G47.33 ; Mood disorder F39 and Controlled type 2 diabetes mellitus without complication, without long- term current use of insulin E11.9 [facility] [address] [id number] [address] [place] [id number] Mar, [facility] [address] [id number] [address] [place] [id number] Feb, Dental examination Z01.20 [facility] [address] [id number] [address] [place] [id number] Feb, [facility] [address] [id number] [address] [place] [phone] Feb, Osteoarthritis of right knee , unspecified osteoarthritis type M17.9 [facility] [address] [id number] [address] [place] [id number] January, [facility] [address] [id number] [address] [place] [address] [id number] January, Dental examination Z01.20 [facility] [address] [id number] [address] [place] [id number] January, [facility] [address] [id number] [address] [place] [address] [id number] January, Dental examination Z01.20 an d Caries K02.9 [facility] [address] [id number] [address] [place] [phone] Dec, Encounter for other preproce dural examination Z01.818 [facility] [address] [id number] [address] [place] [phone] Dec, [facility] [address] [id number] [address] [place] [id number] Dec, Knee pain M25.569 [facility] [address] [id number] [address] [place] [id number] 15 Dec, 2015 Pain in right knee M25.561 [facility] [address] [id number] [address] [place] [id number] 14 Dec, 2015 [facility] [address] [id number] [address] [place] [id number] Dec, [facility] [address] [id number] [address] [place] [phone] Dec, Encounter for immunization Z 23 [facility] [address] [id number] [address] [place] [phone] Dec, [facility] [address] [id number] [address] [place] [phone] Dec, [facility] [address] [id number] [address] [place] [phone] Nov, [facility] [address] [id number] [address] [place] [id number] Nov, Hypertension, benign I10 ; C ervicalgia M54.2 ; Pain in right knee M25.561 and Pain in left knee M25.562 [place] [address] [facility] [id number] [address] [place] [id number] Oct, [facility] [address] [facility] [id number] [address] [place] [id number] Oct, [facility] [address] [place] [id number] [place] [phone] Oct, Osteoarthritis of both knees M17.0 [place] [address] [place] [id number] [place] [phone] Oct, [place] [address] [place] [id number] [place] [phone] Oct, Low back pain M54.5 [place] [address] [place] [id number] [place] [id number] Oct, Low back pain M54.5 ; Sciati ca, unspecified side M54.30 ; Pain in right knee M25.561 ; Pain in left knee M25.562 ; Pain in right shoulder M25.511 and Pain in left shoulder M25.512 [place] [address] [place] [id number] [address] [place] [id number] Oct, [place] [address] [place] [id number] [address] [place] [id number] Sep, Pain in right hip M25.551 [place] [address] [place] [id number] [address] [place] [id number] Sep, Acute upper respiratory infe ction, unspecified J06.9 [place] [address] [place] [id number] [address] [place] [id number] Aug, Acute upper respiratory infe ction, unspecified J06.9 and Other viral agents as the cause of diseases classified elsewhere B97.89 [facility] [address] [id number] [address] [place] [id number] Jul, Arthritis M19.90 [facility] [address] [id number] [address] [place] [id number] Jun, Arthritis M19.90 ; Pain in r ight hip M25.551 ; Pain in left hip M25.552 ; Bilateral low back pain with sciatica, sciatica laterality unspecified M54.40 ; Neck pain M54.2 ; Upper back pain M54.9 and Knee pain, unspecified laterality M25.569 [facility] [address] [id number] [address] [place] [id number] May, Osteoarthritis of both knees 715.96 [facility] [address] [id number] [address] [place] [id number] May, Rash 782.1 [place] [address] [facility] [id number] [address] [place] [id number] Apr, Lumbar strain 847.2 [facility] [address] [id number] [address] [place] [id number] Apr, Rash 782.1 [facility] [address] [facility] [id number] [address] [place] [id number] Mar, Rash 782.1 [facility] [address] [facility] [id number] [address] [place] [id number] Feb, Rash 782.1 ; Hemorrhoids 455 .6 and Constipation 564.00 [facility] [address] [id number] [address] [place] [id number] Feb, Osteoarthritis of both knees 715.96 [facility] [address] [id number] [address] [place] [id number] January, [facility] [address] [facility] [id number] [address] [place] [phone] Dec, [facility] [address] [id number] [address] [place] [id number] 14 Dec, 2014 [facility] [address] [id number] [address] [place] [address], [place] [address] 13 Dec, 2014 [facility] [address] [id number] [address] [place] [address], [place] [id number] 18 Nov, 2014 [facility] [address] [id number] [address] [place] [address], [place] [address] 18 Nov, 2014 [facility] [address] [id number] [address] [place] [address], [place] [address] 18 Nov, 2014 [facility] [address] [id number] [address] [place] [address], [place] [address] 18 Nov, 2014 [facility] [address] [id number] [address] [place] [address], [place] [address] Nov, [facility] [address] [id number] [address] [place] [address], [place] [address] Nov, [facility] [address] [id number] [address] [place] [address], [place] [address] Oct, [facility] [address] [id number] [address] [place] [address], [place] [address] Oct, [facility] [address] [id number] [address] [place] [address], [place] [address] Oct, [facility] [address] [id number] [address] [place] [address], [place] [address] Oct, 2014 [facility] [address] [id number] [address] [place] [address], [place] [address] Oct, 2014 [facility] [address] [id number] [address] [place] [address], [place] [address] Oct, 2014 [facility] [address] [id number] [address] [place] [phone] Oct, 2014 [facility] [address] [id number] [address] [place] [phone] Oct, [facility] [address] [id number] [address] [place] [address], [place] [address] Oct, 2014 [facility] [address] [id number] [address] [place] [address], [place] [address] Oct, [facility] [address] [id number] [address] [place] [address], [place] [address] Oct, [facility] [address] [id number] [address] [place] [address], [place] [address] Sep, [facility] [address] [id number] [address] [place] [address], [place] [address] Sep, [facility] [address] [id number] [address] [place] [address], [place] [address] Sep, [facility] [address] [id number] [address] [place] [address], [place] [address] Sep, [facility] [address] [id number] [address] [place] [address], [place] [address] Sep, [facility] [address] [id number] [address] [place] [address], [place] [address] Sep, [facility] [address] [id number] [address] [place] [address], [place] [address] Aug, [facility] [address] [id number] [address] [place] [address], [place] [address] Aug, [facility] [address] [id number] [address] [place] [address], [place] [address] Aug, [facility] [address] [id number] [address] [place] [address], [place] [address] Aug, [facility] [address] [id number] [address] [place] [address], [place] [address] Aug, [facility] [address] [id number] [address] [place] [address], [place] [address] Aug, [facility] [address] [id number] [address] [place] [address], [place] [address] 05 Aug, 2014 [facility] [address] [id number] [address] [place] [address], [place] [address] Aug, [facility] [address] [id number] [address] [place] [address], [place] [address] Aug, [facility] [address] [id number] [address] [place] [address], [place] [address] Aug, [facility] [address] [id number] [address] [place] [address], [place] [address] Jul, [facility] [address] [id number] [address] [place] [address], [place] [address] Jul, [facility] [address] [id number] [address] [place] [address], [place] [address] Jul, [facility] [address] [id number] [address] [place] [address], [place] [address] Jul, [facility] [address] [id number] [address] [place] [address], [place] [address] Jun, [facility] [address] [id number] [address] [place] [address], [place] [address] Jun, [facility] [address] [id number] [address] [place] [address], [place] [address] Jun, [facility] [address] [id number] [address] [place] [address], [place] [address] Jun, [facility] [address] [id number] [address] [place] [address], [place] [address] Jun, [facility] [address] [id number] [address] [place] [address], [place] [address] Jun, [facility] [address] [id number] [address] [place] [address], [place] [address] Jun, [facility] [address] [id number] [address] [place] [phone] Jun, [facility] [address] [id number] [facility] [place] [address] 24 May, 2013 [facility] [address] [id number] [address] [place] [address], [place] [address] 24 May, 2014 [facility] [address] [id number] [address] [place] [address], [place] [address] 19 May, 2014 [facility] [address] [id number] [address] [place] [address], [place] [address] 19 May, 2014 [facility] [address] [id number] [address] [place] [address], [place] [address] 15 May, 2014 [facility] [address] [id number] [address] [place] [address], [place] [address] 15 May, 2014 [facility] [address] [id number] [address] [place] [address], [place] [address] 15 May, 2014 [facility] [address] [id number] [address] [place] [address], [place] [address] May, [facility] [address] [id number] [address] [place] [address], [place] [address] Apr, [facility] [address] [id number] [address] [place] [address], [place] [address] Apr, [facility] [address] [id number] [address] [place] [address], [place] [address] Apr, [facility] [address] [id number] [address] [place] [address], [place] [address] Apr, [facility] [address] [id number] [address] [place] [address], [place] [address] Apr, [facility] [address] [id number] [address] [place] [address], [place] [address] Apr, [facility] [address] [id number] [address] [place] [address], [place] [address] Apr, [facility] [address] [id number] [address] [place] [address], [place] [address] Apr, [facility] [address] [id number] [address] [place] [address], [place] [address] Apr, [facility] [address] [id number] [address] [place] [address], [place] [address] Apr, [facility] [address] [id number] [address] [place] [address], [place] [address] Apr, [facility] [address] [id number] [address] [place] [address], [place] [address] Apr, [facility] [address] [id number] [address] [place] [address], [place] [address] Mar, [facility] [address] [id number] [address] [place] [address], [place] [address] Mar, [facility] [address] [id number] [address] [place] [address], [place] [address] Mar, [facility] [address] [id number] [address] [place] [address], [place] [address] Mar, [facility] [address] [id number] [address] [place] [address], [place] [address] Mar, [facility] [address] [id number] [address] [place] [address], [place] [address] Mar, [facility] [address] [id number] [address] [place] [address], [place] [address] Feb, [facility] [address] [id number] [address] [place] [address], [place] [address] Feb, [facility] [address] [id number] [address] [place] [address], [place] [address] Feb, [facility] [address] [id number] [address] [place] [address], [place] [address] Feb, [facility] [address] [id number] [address] [place] [address], [place] [address] Feb, [facility] [address] [id number] [facility] [place] [address] 16 Feb, 2014 [facility] [address] [id number] [address] [place] [address], [place] [address] Feb, [facility] [address] [id number] [address] [place] [address], [place] [address] Feb, [facility] [address] [id number] [address] [place] [address], [place] [address] Feb, [facility] [address] [id number] [address] [place] [address], [place] [address] Feb, [facility] [address] [id number] [address] [place] [address], [place] [address] Feb, [facility] [address] [id number] [address] [place] [address], [place] [address] Feb, [facility] [address] [id number] [address] [place] [address], [place] [address] Feb, [facility] [address] [id number] [address] [place] [address], [place] [address] Feb, [facility] [address] [id number] [address] [place] [address], [place] [address] January, [facility] [address] [id number] [address] [place] [address], [place] [address] January, [facility] [address] [id number] [address] [place] [address], [place] [address] January, [facility] [address] [id number] [address] [place] [address], [place] [address] January, [facility] [address] [id number] [address] [place] [address], [place] [address] January, [facility] [address] [id number] [address] [place] [address], [place] [address] January, [facility] [address] [id number] [address] [place] [address], [place] [address] Dec, [facility] [address] [id number] [facility] [place] [address] Dec, [facility] [address] [id number] [address] [place] [address], [place] [address] Dec, [facility] [address] [id number] [address] [place] [address], [place] [address] Dec, [facility] [address] [id number] [address] [place] [address], [place] [address] Dec, [facility] [address] [id number] [address] [place] [address], [place] [address] Dec, [facility] [address] [id number] [address] [place] [address], [place] [address] Dec, [facility] [address] [id number] [address] [place] [address], [place] [address] Dec, [facility] [address] [id number] [address] [place] [address], [place] [address] Nov, [facility] [address] [id number] [address] [place] [address], [place] [address] Nov, [facility] [address] [id number] [address] [place] [address], [place] [address] Nov, [facility] [address] [id number] [address] [place] [address], [place] [address] Nov, [facility] [address] [id number] [address] [place] [address], [place] [address] Nov, [facility] [address] [id number] [address] [place] [address], [place] [address] Nov, [facility] [address] [id number] [address] [place] [address], [place] [address] Nov, [facility] [address] [id number] [address] [place] [address], [place] [address] Nov, [facility] [address] [id number] [address] [place] [address], [place] [address] Oct, [facility] [address] [id number] [address] [place] [address], [place] [address] Oct, [facility] [address] [id number] [address] [place] [address], [place] [address] Oct, [facility] [address] [id number] [address] [place] [address], [place] [address] Oct, [facility] [address] [id number] [address] [place] [address], [place] [address] Oct, [facility] [address] [id number] [address] [place] [address], [place] [address] Oct, [facility] [address] [id number] [address] [place] [address], [place] [address] Oct, [facility] [address] [id number] [address] [place] [address], [place] [address] Oct, [facility] [address] [id number] [address] [place] [address], [place] [address] Oct, [facility] [address] [id number] [address] [place] [address], [place] [address] Oct, [facility] [address] [id number] [address] [place] [address], [place] [address] Sep, [facility] [address] [id number] [address] [place] [address], [place] [address] Sep, [facility] [address] [id number] [address] [place] [address], [place] [address] Sep, [facility] [address] [id number] [address] [place] [address], [place] [address] Sep, [facility] [address] [id number] [address] [place] [address], [place] [address] Sep, [facility] [address] [id number] [address] [place] [address], [place] [address] Sep, [facility] [address] [id number] [address] [place] [address], [place] [address] Aug, [facility] [address] [id number] [address] [place] [address], [place] [address] Aug, [facility] [address] [id number] [address] [place] [address], [place] [address] Aug, [facility] [address] [id number] [address] [place] [address], [place] [address] Aug, [facility] [address] [id number] [address] [place] [address], [place] [address] Aug, [facility] [address] [id number] [address] [place] [address], [place] [address] Aug, [facility] [address] [id number] [address] [place] [address], [place] [address] Aug, [facility] [address] [id number] [address] [place] [address], [place] [id number] Aug, [facility] [address] [id number] [address] [place] [address], [place] [address] Jul, [facility] [address] [id number] [address] [place] [address], [place] [address] Jul, [facility] [address] [id number] [address] [place] [address], [place] [address] Jul, [facility] [address] [id number] [address] [place] [address], [place] [address] Jul, [facility] [address] [id number] [address] [place] [address], [place] [address] Jul, [facility] [address] [id number] [address] [place] [address], [place] [address] Jul, [facility] [address] [id number] [address] [place] [address], [place] [address] Jun, [facility] [address] [id number] [address] [place] [address] [place] [address] Jun, [facility] [address] [id number] [address] [place] [address], [place] [address] Jun, [facility] [address] [id number] [address] [place] [address], [place] [address] May, [facility] [address] [id number] [address] [place] [address], [place] [address] May, [facility] [address] [id number] [address] [place] [address], [place] [address] May, [facility] [address] [id number] [address] [place] [address], [place] [address] Apr, [facility] [address] [id number] [address] [place] [address], [place] [address] Apr, [facility] [address] [id number] [address] [place] [address], [place] [address] Apr, [facility] [address] [id number] [address] [place] [address], [place] [address] Apr, [facility] [address] [id number] [address] [place] [address], [place] [address] Mar, [facility] [address] [id number] [address] [place] [address], [place] [address] Mar, [facility] [address] [id number] [address] [place] [address], [place] [address] Mar, [facility] [address] [id number] [address] [place] [address], [place] [address] Mar, [facility] [address] [id number] [address] [place] [address], [place] [address] Feb, [facility] [address] [id number] [address] [place] [address], [place] [address] Feb, [facility] [address] [id number] [address] [place] [address], [place] [address] Feb, [facility] [address] [id number] [address] [place] [address], [place] [address] Feb, [facility] [address] [id number] [address] [place] [address], [place] [address] January, [facility] [address] [id number] [address] [place] [address], [place] [address] January, [facility] [address] [id number] [address] [place] [address], [place] [address] January, [facility] [address] [id number] [address] [place] [address], [place] [address] Nov, [facility] [address] [id number] [address] [place] [address], [place] [address] Nov, [facility] [address] [id number] [address] [place] [address], [place] [address] Oct, [facility] [address] [id number] [address] [place] [address], [place] [address] Oct, [facility] [address] [id number] [address] [place] [address], [place] [address] Oct, [facility] [address] [id number] [address] [place] [address], [place] [address] Oct, [facility] [address] [id number] [address] [place] [address], [place] [address] Sep, [facility] [address] [id number] [address] [place] [address], [place] [address] Sep, [facility] [address] [id number] [address] [place] [address], [place] [address] Sep, [facility] [address] [id number] [address] [place] [address], [place] [address] Aug, [facility] [address] [id number] [address] [place] [address], [place] [address] Aug, [facility] [address] [id number] [address] [place] [address], [place] [address] Aug, [facility] [address] [id number] [address] [place] [address], [place] [address] Aug, [facility] [address] [id number] [address] [place] [address], [place] [address] Aug, [facility] [address] [id number] [address] [place] [address], [place] [address] Aug, [facility] [address] [id number] [address] [place] [address], [place] [address] Jul, [facility] [address] [id number] [address] [place] [address], [place] [address] Jul, [facility] [address] [id number] [address] [place] [address], [place] [address] Jun, [facility] [address] [id number] [address] [place] [address], [place] [address] Jun, [facility] [address] [id number] [address] [place] [address], [place] [address] Jun, [facility] [address] [id number] [address] [place] [address], [place] [address] Apr, [facility] [address] [id number] [address] [place] [address], [place] [address] Apr, [facility] [address] [id number] [address] [place] [address], [place] [address] Mar, [facility] [address] [id number] [address] [place] [id number] Mar, [facility] [address] [id number] [address] [place] [address], [place] [address] Mar, [facility] [address] [id number] [address] [place] [address], [place] [address] Mar, [facility] [address] [id number] [address] [place] [address], [place] [address] Feb, [facility] [address] [id number] [address] [place] [address], [place] [address] Feb, [facility] [address] [id number] [address] [place] [address], [place] [address] Feb, [facility] [address] [id number] [address] [place] [address], [place] [address] January, [facility] [address] [id number] [address] [place] [address], [place] [address] January, [facility] [address] [id number] [address] [place] [address], [place] [address] January, [facility] [address] [id number] [address] [place] [address], [place] [address] January, [facility] [address] [id number] [address] [place] [address], [place] [address] Dec, [facility] [address] [id number] [address] [place] [address], [place] [address] Dec, [facility] [address] [id number] [address] [place] [address], [place] [address] Nov, [facility] [address] [id number] [address] [place] [address], [place] [address] Nov, [facility] [address] [id number] [address] [place] [address], [place] [address] 16 Oct, 2011 [facility] [address] [id number] [address] [place] [address], [place] [address] Oct, [facility] [address] [id number] [address] [place] [address], [place] [address] Sep, [facility] [address] [id number] [address] [place] [address], [place] [address] Sep, [facility] [address] [id number] [address] [place] [address], [place] [address] Sep, [facility] [address] [id number] [address] [place] [address], [place] [address] Sep, [facility] [address] [id number] [address] [place] [address], [place] [address] 16 Aug, 2011 [facility] [address] [id number] [address] [place] [address], [place] [address] 16 Aug, 2011 [facility] [address] [id number] [address] [place] [address], [place] [address] Aug, [facility] [address] [id number] [address] [place] [address], [place] [address] Jul, [facility] [address] [id number] [address] [place] [address], [place] [address] Aug, [facility] [address] [id number] [address] [place] [address], [place] [address] Aug, [facility] [address] [id number] [address] [place] [address], [place] [address] Aug, [facility] [address] [id number] [address] [place] [address], [place] [address] Aug, [facility] [address] [id number] [address] [place] [address], [place] [address] Jul, [facility] [address] [id number] [address] [place] [address], [place] [address] Jul, [facility] [address] [id number] [address] [place] [address], [place] [address] Jul, [facility] [address] [id number] [address] [place] [id number] Jun, [facility] [address] [id number] [address] [place] [address], [place] [address] Jun, [facility] [address] [id number] [address] [place] [address], [place] [address] Jun, [facility] [address] [id number] [address] [place] [address], [place] [address] Apr, [facility] [address] [id number] [address] [place] [address] Mar, IMMUNIZATIONS No Known Immunizations SOCIAL HISTORY [...]
--- OUTSIDE RECORDS SUMMARY | 2020-03-18 14:54 | XMS REPORT ---
Author Author George Marx Doctor Organization [facility] Address Unknown Phone Unavailable Care Team Providers Care Database Reporting Consultant Name Role Phone Migration, Doctor Unavailable Unavailable PROBLEMS Type Condition ICD9-CM Code [id number] Code Onset Dates Condition S tatus SNOMED Code Problem Hypertension, benign I10 Active 74575012 Problem Other chronic pain G89.29 Active 8 4373188 Problem Lumbago with sciatica, unspecified side M54.40 Active 470054584 Problem Controlled type 2 diabetes m ellitus without complication, without long- term current use of insulin E11.9 Active 092367915 Problem Lumbago with sciatica, right side M54.41 Active 431008974 Problem Adjustment disorder with disturbance of emotion F4 3.29 Active 73677586 Problem MELE (obstructive sleep apnea) G47.33 Active 10668401 Problem Non morbid obesity E66.9 Active 4 26615517 Problem Hammer toe of left foot M20.42 Active 323193540 Problem Mood disorder F39 Active 486397 05 Problem Deformity of left foot M21.962 Active 036766889 Problem Lumbago with sciatica, left side M54.42 Active 412486400 Problem Erectile dysfunction due to diseases classified elsewhere N52.1 Active 002426903 Problem Obstructive sleep apnea syndrome G47.33 Active 11833283 Problem Type 2 diabetes mellitus wit h diabetic neuropathy, without long-term current use of insulin E11.40 Active 89858 006 Problem Essential hypertension I10 Active 84352802 ALLERGIES No Information ENCOUNTERS Encounter Location Date Diagnosis [facility] [address] [facility] [id number] [address] [place] [address] January, [facility] [address] [facility] [id number] [address] [place] [address] Dec, Acute diffuse otitis externa of left ear H60.312 [facility] [address] [facility] [id number] [address] [place] [address] Nov, Viral URI J06.9 and Flu-like symptoms R68.89 [place] [address] [place] [id number] [address] [place] [address] 09 Nov, 2019 Type 2 diabetes mellitus wit h diabetic neuropathy, without long- term current use of insulin E11.40 ; Family history of prostate cancer Z80.42 and Prostate cancer screening Z12.5 [place] [address] [place] [id number] [address] [place] [address] Nov, [place] [address] [place] [id number] [address] [place] [address] Sep, [place] [address] [place] [id number] [address] [place] [address] Aug, [place] [address] [place] [id number] [address] [place] [address] Jul, Lumbago with sciatica, unspe cified side M54.40 [place] [address] [place] [id number] [address] [place] [address] Jun, Lumbago with sciatica, unspe cified side M54.40 [place] [address] [place] [id number] [address] [place] [address] Jun, URI, acute J06.9 [place] [address] [place] [id number] [address] [place] [address] 26 May, 2019 Lumbago with sciatica, unspe cified side M54.40 [place] [address] [place] [id number] [address] [place] [address] May, [place] [address] [place] [id number] [address] [place] [address] 12 May, 2019 Type 2 diabetes mellitus wit h diabetic neuropathy, without long- term current use of insulin E11.40 and Hammer toe of left foot M20.42 [place] [address] [place] [id number] [address] [place] [address] May, [place] [address] [place] [id number] [address] [place] [address] May, [facility] [address] [facility] [id number] [address] [place] [address] May, [facility] [address] [place] [id number] [address] [place] [address] Apr, Lumbago with sciatica, unspe cified side M54.40 [facility] [address] [facility] [id number] [address] [place] [address] Apr, [facility] [address] [place] [id number] [address] [place] [address] Apr, [id number] [place] [address] Apr, Hammer toe of left foot M20. 42 ; Chest pain R07.9 ; Preoperative examination Z01.818 and Morbid obesity E66.01 [facility] [address] [place] [id number] [address] [place] [address] Apr, Morbid obesity E66.01 ; Bron chitis J40 and High risk medications (not anticoagulants) long-term use Z79.899 [facility] [address] [place] [id number] [address] [place] [address] Apr, Lumbago with sciatica, unspe cified side M54.40 [facility] [address] [place] [id number] [address] [place] [address] Apr, [facility] [address] [place] [id number] [address] [place] [address] Mar, Lumbar neuritis M54.16 and M orbid obesity E66.01 [facility] [address] [place] [id number] [address] [place] [address] Mar, [facility] [address] [place] [id number] [address] [place] [address] Mar, [facility] [address] [place] [id number] [address] [place] [address] Mar, Lumbago with sciatica, unspe cified side M54.40 [facility] [address] [id number] [address] [place] [address] Mar, Morbid obesity E66.01 ; Gabe lara R05 ; 2+ pitting edema R60.9 and Controlled type 2 diabetes mellitus without complication, without long-term current use of insulin E11.9 [facility] [address] [id number] [address] [place] [address] Feb, [facility] [address] [id number] [address] [place] [address] Feb, Lumbago with sciatica, unspe cified side M54.40 [facility] [address] [id number] [address] [place] [address] Feb, [facility] [address] [id number] [address] [place] [address] Feb, Controlled type 2 diabetes m ellitus without complication, without long-term current use of insulin E11.9 and Morbid obesity E66.01 [facility] [address] [id number] [address] [place] [address] January, Deformity of left foot M21.9 62 [facility] [address] [id number] [address] [place] [address] January, [facility] [address] [id number] [address] [place] [address] January, Lumbago with sciatica, unspe cified side M54.40 [facility] [address] [id number] [address] [place] [address] January, [facility] [address] [facility] [id number] [address] [place] [address] January, Lumbago with sciatica, unspe cified side M54.40 [facility] [address] [id number] [address] [place] [address] January, [facility] [address] [facility] [id number] [address] [place] [address] January, Acute right-sided thoracic b ack pain M54.6 [facility] [address] [facility] [id number] [address] [place] [address] January, Acute right-sided thoracic b ack pain M54.6 [facility] [address] [facility] [id number] [address] [place] [address] January, Chest pain, unspecified type R07.9 ; Morbid obesity E66.01 and Scabies B86 [place] [address] [facility] [id number] [address] [place] [address] Dec, Lumbago with sciatica, unspe cified side M54.40 [place] [address] [place] [id number] [address] [place] [address] Dec, Toenail fungus B35.1 [facility] [address] [facility] [id number] [address] [place] [address] Dec, Toenail fungus B35.1 [place] [address] [facility] [id number] [address] [place] [address] Dec, Acute right-sided thoracic b ack pain M54.6 [place] [address] [facility] [id number] [address] [place] [address] Dec, Lumbago with sciatica, unspe cified side M54.40 [facility] [address] [facility] [id number] [address] [place] [address] Nov, Hammer toe of left foot M20. 42 ; Deformity of left foot M21.962 and Type 2 diabetes mellitus with diabetic neuropathy, without long-term current use of insulin E11.40 [facility] [address] [facility] [id number] [address] [place] [address] Nov, Acute right-sided thoracic b ack pain M54.6 ; Morbid obesity E66.01 and Rt flank pain R10.9 [facility] [address] [place] [id number] [address] [place] [address] Nov, Lumbago with sciatica, unspe cified side M54.40 [facility] [address] [place] [id number] [address] [place] [address] Oct, Lumbago with sciatica, unspe cified side M54.40 [place] [address] [place] [id number] [address] [place] [address] Sep, Lumbago with sciatica, unspe cified side M54.40 [place] [address] [place] [id number] [address] [place] [address] Sep, [place] [address] [place] [id number] [place] [address] Sep, BMI 40.0-44.9, adult Z68.41 ; Lumbago with sciatica, left side M54.42 ; Lumbago with sciatica, right side M54.41 and Other chronic pain G89.29 [place] [address] [place] [id number] [address] [place] [address] Aug, Lumbago with sciatica, unspe cified side M54.40 [place] [address] [place] [id number] [address] [place] [address] Aug, Type 2 diabetes mellitus wit h diabetic neuropathy, without long- term current use of insulin E11.40 ; Hammer toe of left foot M20.42 ; Hypertension, benign I10 and Frequent headaches R51 [place] [address] [place] [id number] [address] [place] [address] Jul, Lumbago with sciatica, unspe cified side M54.40 [facility] [address] [place] [id number] [address] [place] [address] Jul, [place] [address] [place] [id number] [place] [address] Jul, Essential hypertension I10 a nd Controlled type 2 diabetes mellitus without complication, without long-term current use of insulin E11.9 [place] [address] [facility] [id number] [address] [place] [address] Jul, Essential hypertension I10 ; Controlled type 2 diabetes mellitus without complication, without long-term current use of insulin E11.9 and BMI 40.0-44.9, adult Z68.41 [place] [address] [facility] [id number] [address] [place] [address] Jul, Dysfunction of left eustachi an tube H69.82 [place] [address] [facility] [id number] [address] [place] [address] Jul, Lumbago with sciatica, unspe cified side M54.40 [facility] [address] [place] [id number] [place] [address] [id number] Jun, Dental examination Z01.20 [place] [address] [facility] [id number] [address] [place] [address] Jun, Lumbago with sciatica, unspe cified side M54.40 and Encounter for immunization Z23 [place] [address] [place] [id number] [place] [address] Jun, Dysfunction of left eustachi an tube H69.82 [facility] [address] [id number] [id number] Jun, Dental examination Z01.20 [facility] [address] [facility] [id number] [address] [place] [address] Jun, Other chronic pain G89.29 [facility] [address] [id number] [address] [place] [id number] Jun, Dental examination Z01.20 [facility] [address] [facility] [id number] [address] [place] [address] Jun, [place] [address] [facility] [id number] [address] [place] [address] Jun, Bronchitis J40 ; Dysfunction of left eustachian tube H69.82 and BMI 45.0-49.9, adult Z68.42 [place] [address] [place] [id number] [place] [address] Jun, Lumbago with sciatica, unspe cified side M54.40 [place] [address] [place] [id number] [address] [place] [address] May, Type 2 diabetes mellitus wit h diabetic neuropathy, without long- term current use of insulin E11.40 and Hypertension, benign I10 [place] [address] [place] [id number] [address] [place] [address] May, Lumbago with sciatica, unspe cified side M54.40 [facility] [address] [place] [id number] [address] [place] [address] Apr, [facility] [address] [place] [id number] [place] [address] Apr, Controlled type 2 diabetes m ellitus without complication, without long-term current use of insulin E11.9 ; Insect bite (nonvenomous), right ankle, initial encounter S90.561A ; Local infection of the skin and subcutaneous tissue, unspecified L08.9 ; Acute swimmer''s ear of left side H60.332 and BMI 45.0-49.9, adult Z68.42 [place] [address] [place] [id number] [address] [place] [address] Apr, Lumbago with sciatica, unspe cified side M54.40 [place] [address] [place] [id number] [address] [place] [address] Mar, [place] [address] [place] [id number] [address] [place] [address] Mar, Lumbago with sciatica, unspe cified side M54.40 [place] [address] [place] [id number] [address] [place] [address] Feb, Lumbago with sciatica, unspe cified side M54.40 [place] [address] [place] [id number] [address] [place] [address] Feb, BMI 45.0-49.9, adult Z68.42 and Obstructive sleep apnea syndrome G47.33 [place] [address] [place] [id number] [address] [place] [address] January, Lumbar neuritis M54.16 [place] [address] [address] January, Lumbago with sciatica, unspe cified side M54.40 [place] [address] [address] Dec, Controlled type 2 diabetes m taraitus without complication, without long-term current use of insulin E11.9 ; Erectile dysfunction due to diseases classified elsewhere N52.1 and Mood disorder F39 [place] [address] [place] [id number] [address] [place] [address] Dec, Lumbago with sciatica, unspe cified side M54.40 [place] [address] [place] [id number] [address] [place] [address] Dec, Obstructive sleep apnea synd luis G47.33 [place] [address] [place] [id number] [address] [place] [address] Nov, Lumbago with sciatica, unspe cified side M54.40 ; Hypertension, benign I10 and Mood disorder F39 [place] [address] [place] [id number] [address] [place] [address] Nov, Other chronic pain G89.29 [place] [address] [place] [id number] [address] [place] [address] Nov, Lumbago with sciatica, unspe cified side M54.40 [facility] [address] [place] [id number] [address] [place] [address] [id number] Nov, Dental examination Z01.20 [place] [address] [id number] [address] [place] [address] Oct, [facility] [address] [facility] [id number] [address] [place] [address] Oct, Lumbago with sciatica, unspe cified side M54.40 [facility] [address] [facility] [id number] [address] [place] [address] Oct, Lumbago with sciatica, unspe cified side M54.40 [facility] [address] [facility] [id number] [address] [place] [address] Oct, [facility] [address] [facility] [id number] [address] [place] [address] Oct, [facility] [address] [facility] [id number] [address] [place] [address] [id number] Oct, Dental examination Z01.20 [facility] [address] [facility] [id number] [address] [place] [address] Oct, [facility] [address] [facility] [id number] [address] [place] [address] Oct, Pain in right knee M25.561 [facility] [address] [facility] [id number] [address] [place] [address] Sep, [facility] [address] [facility] [id number] [address] [place] [address] Sep, Other chronic pain G89.29 [facility] [address] [id number] [address] [place] [address] Sep, Lumbago with sciatica, unspe cified side M54.40 [facility] [address] [facility] [id number] [address] [place] [address] Sep, [facility] [address] [facility] [id number] [address] [place] [address] Sep, Viral URI J06.9 and BMI 45.0 -49.9, adult Z68.42 [facility] [address] [facility] [id number] [address] [place] [address] Aug, Foreign body hand S60.559A a nd BMI 45.0-49.9, adult Z68.42 [facility] [address] [facility] [id number] [address] [place] [address] Aug, [facility] [address] [facility] [id number] [address] [place] [address] Aug, Lumbago with sciatica, unspe cified side M54.40 [place] [address] [facility] [id number] [address] [place] [address] Aug, Vertigo R42 ; Dysfunction of both eustachian tubes H69.83 ; Low back pain M54.5 and Other chronic pain G89.29 [facility] [address] [place] [id number] [address] [place] [address] Aug, Dizziness R42 and Acute bila teral otitis media H66.93 [place] [address] [facility] [id number] [address] [place] [address] Aug, Lumbago with sciatica, unspe cified side M54.40 [facility] [address] [id number] [address] [place] [id number] Jul, Dental examination Z01.20 [place] [address] [facility] [id number] [address] [place] [address] Jul, [place] [address] [facility] [id number] [address] [place] [address] Jul, [place] [address] [place] [id number] [address] [place] [address] Jul, Dysfunction of both eustachi an tubes H69.83 [facility] [address] [facility] [id number] [address] [place] [address] 07 Jul, 2017 Controlled type 2 diabetes evens maribell without complication, without long-term current use of insulin E11.9 [facility] [address] [id number] [address] [place] [address] Jul, Controlled type 2 diabetes m ellitus without complication, without long-term current use of insulin E11.9 [facility] [address] [id number] [address] [place] [address] Jul, Dizziness R42 and BMI 40.0-4 4.9, adult Z68.41 [facility] [address] [id number] [address] [place] [address] Jul, Controlled type 2 diabetes m ellitus without complication, without long-term current use of insulin E11.9 [place] [address] [facility] [id number] [address] [place] [address] Jul, Lumbago with sciatica, unspe cified side M54.40 [facility] [id number] [place] [address] [id number] Jul, Dental examination Z01.20 [facility] [address] [id number] [address] [place] [address] Jun, [facility] [address] [id number] [place] [address] [id number] Jun, Dental examination Z01.20 [facility] [address] [id number] [address] [place] [address] Jun, Controlled type 2 diabetes m ellitus without complication, without long-term current use of insulin E11.9 [facility] [address] [id number] [address] [place] [address] Jun, Lumbago with sciatica, unspe cified side M54.40 [facility] [address] [id number] [address] [place] [address] [id number] May, Dental examination Z01.20 [facility] [address] [id number] [address] [place] [address] May, Controlled type 2 diabetes m ellitus without complication, without long-term current use of insulin E11.9 [facility] [address] [id number] [address] [place] [address] [id number] 19 May, 2017 Dental examination Z01.20 [facility] [address] [facility] [id number] [address] [place] [address] 18 May, 2017 Bronchitis J40 ; Dry mouth R 68.2 ; Non morbid obesity E66.9 and Controlled type 2 diabetes mellitus without complication, without long-term current use of insulin E11.9 [facility] [address] [id number] [address] [place] [id number] 16 May, 2017 Encounter for immunization Z 23 [facility] [address] [facility] [id number] [address] [place] [id number] 07 May, 2017 Lumbago with sciatica, unspe cified side M54.40 [facility] [address] [facility] [id number] [address] [place] [id number] 05 May, 2017 [facility] [address] [id number] [id number] Apr, Dental examination Z01.20 [facility] [address] [id number] [address] [place] [id number] Apr, Lumbago with sciatica, unspe cified side M54.40 [facility] [address] [id number] [address] [place] [id number] Mar, Lumbago with sciatica, left side M54.42 [facility] [address] [id number] [address] [place] [id number] Mar, [facility] [address] [id number] [address] [place] [id number] Mar, Lumbar neuritis M54.16 [facility] [address] [id number] [address] [place] [id number] Mar, [facility] [address] [id number] [place] [id number] Mar, Dental examination Z01.20 [place] [address] [facility] [id number] [address] [place] [id number] Mar, MELE (obstructive sleep apnea ) G47.33 ; Neuropathy involving both lower extremities G57.93 and Frequent headaches R51 [facility] [address] [id number] [address] [place] [id number] Mar, Lumbago with sciatica, unspe cified side M54.40 [facility] [place] [address] [id number] [address] [place] [id number] Feb, Lumbago with sciatica, unspe cified side M54.40 and Controlled type 2 diabetes mellitus without complication, without long-term current use of insulin E11.9 [place] [address] [facility] [id number] [address] [place] [id number] January, Hypertension, benign I10 and Bilateral low back pain with sciatica, sciatica laterality unspecified M54.40 [place] [address] [place] [id number] [address] [place] [id number] January, Hypertension, benign I10 ; L umbago with sciatica, unspecified side M54.40 ; Other chronic pain G89.29 and Controlled type 2 diabetes mellitus without complication, without long-term current use of insulin E11.9 [place] [address] [address] [facility] [id number] [address] [place] [address] January, Lumbar neuritis M54.16 [place] [address] [id number] [address] [place] [address] January, [place] [address] [address] [facility] [id number] [address] [place] [address] Dec, Lumbago with sciatica, right side M54.41 and Lumbar neuritis M54.16 [place] [address] [address] [facility] [id number] [address] [place] [address] Dec, Lumbar neuritis M54.16 [place] [address] [address] [place] [id number] [address] [place] [address] Dec, Lumbar neuritis M54.16 [place] [address] [address] [place] [id number] [address] [place] [address] Nov, Lumbar neuritis M54.16 ; Lum bago with sciatica, right side M54.41 ; Controlled type 2 diabetes mellitus without complication, without long-term current use of insulin E11.9 and Rash and nonspecific skin eruption R21 [place] [address] [address] [place] [id number] [address] [place] [address] Nov, Lumbar neuritis M54.16 and P oison miroslava L23.7 [place] [address] [address] [place] [id number] [place] [address] Oct, Lumbar neuritis M54.16 ; Cou ghing R05 and Mood disorder F39 [place] [address] [address] [place] [id number] [address] [place] [address] Sep, Lumbago with sciatica, right side M54.41 [place] [address] [address] [place] [id number] [address] [place] [address] Sep, Adjustment disorder with dis turbance of emotion F43.29 and Pain management R52 [place] [address] [address] [place] [id number] [address] [place] [address] Sep, [place] [address] [address] [place] [id number] [address] [place] [address] Sep, [place] [address] [address] [place] [id number] [address] [place] [address] Sep, Controlled type 2 diabetes evens reyna without complication, without long-term current use of insulin E11.9 and Lumbago with sciatica, unspecified side M54.40 [place] [address] [address] [place] [id number] [address] [place] [address] Aug, Controlled type 2 diabetes evens reyna without complication, without long-term current use of insulin E11.9 ; Pain in right knee M25.561 ; Pain in left knee M25.562 ; Other chronic pain G89.29 ; Lumbago with sciatica, right side M54.41 ; Neck pain M54.2 and Encounter for immunization Z23 [facility] [address] [id number] [address] [place] [address] Jul, [facility] [address] [id number] [address] [place] [address] Jul, Controlled type 2 diabetes m maribell without complication, without long-term current use of insulin E11.9 [facility] [address] [id number] [address] [place] [address] Jul, [facility] [address] [id number] [address] [place] [address] Jul, [facility] [address] [id number] [address] [place] [address] Jul, Lumbago with sciatica, left side M54.42 ; Lumbago with sciatica, right side M54.41 and Other chronic pain G89.29 [facility] [address] [id number] [address] [place] [address] Jul, [facility] [address] [id number] [address] [place] [address] Jul, [facility] [address] [id number] [address] [place] [address] Jun, [facility] [address] [id number] [address] [place] [address] Jun, Lumbago with sciatica, right side M54.41 and Other chronic pain G89.29 [facility] [address] [id number] [address] [place] [address] Jun, Cervicalgia M54.2 ; Lumbago with sciatica, unspecified side M54.40 and Other chronic pain G89.29 [facility] [address] [id number] [address] [place] [address] 15 May, 2016 Pain in right knee M25.561 ; Pain in left knee M25.562 and Other chronic pain G89.29 [facility] [address] [id number] [address] [place] [address] May, [facility] [address] [id number] [address] [place] [address] Apr, Other chronic pain G89.29 an d Pain in right knee M25.561 [facility] [address] [id number] [address] [place] [address] Apr, Pain in right knee M25.561 [facility] [address] [id number] [address] [place] [address] Mar, [place] [address] [id number] [address] [place] [address] Mar, Mood disorder F39 and Contro lled type 2 diabetes mellitus without complication, without long-term current use of insulin E11.9 [facility] [address] [id number] [address] [place] [address] Mar, Pain in right knee M25.561 ; Pain in left knee M25.562 ; Other chronic pain G89.29 ; Obstructive sleep apnea syndrome G47.33 ; Mood disorder F39 and Controlled type 2 diabetes mellitus without complication, without long- term current use of insulin E11.9 [facility] [address] [id number] [address] [place] [address] Mar, [facility] [address] [id number] [address] [place] [id number] Feb, Dental examination Z01.20 [facility] [address] [id number] [address] [place] [address] Feb, [facility] [address] [id number] [address] [place] [address] Feb, Osteoarthritis of right knee , unspecified osteoarthritis type M17.9 [facility] [address] [id number] [address] [place] [address] January, [facility] [address] [id number] [address] [place] [id number] January, Dental examination Z01.20 [facility] [address] [id number] [address] [place] [address] January, [facility] [address] [id number] [address] [place] [address] [id number] January, Dental examination Z01.20 an d Caries K02.9 [facility] [address] [id number] [address] [place] [address] Dec, Encounter for other preproce dural examination Z01.818 [facility] [address] [id number] [address] [place] [address] Dec, [facility] [address] [id number] [address] [place] [address] Dec, Knee pain M25.569 [facility] [address] [id number] [address] [place] [address] Dec, Pain in right knee M25.561 [facility] [address] [id number] [address] [place] [address] Dec, [facility] [address] [id number] [address] [place] [address] Dec, [facility] [address] [id number] [address] [place] [address] Dec, Encounter for immunization Z 23 [facility] [address] [id number] [address] [place] [address] Dec, [facility] [address] [id number] [address] [place] [address] Dec, [facility] [address] [id number] [address] [place] [address] Nov, [facility] [address] [id number] [address] [place] [address] Nov, Hypertension, benign I10 ; C ervicalgia M54.2 ; Pain in right knee M25.561 and Pain in left knee M25.562 [place] [place] [id number] [address] [place] [address] Oct, [place] [address] [address] [place] [id number] [address] [place] [address] Oct, [place] [address] [address] [place] [id number] [place] [address] Oct, Osteoarthritis of both knees M17.0 [place] [address] [address] [place] [id number] [place] [address] Oct, [place] [address] [address] [place] [id number] [place] [address] Oct, Low back pain M54.5 [place] [address] [address] [place] [id number] [place] [address] Oct, Low back pain M54.5 ; Sciati ca, unspecified side M54.30 ; Pain in right knee M25.561 ; Pain in left knee M25.562 ; Pain in right shoulder M25.511 and Pain in left shoulder M25.512 [place] [address] [address] [place] [id number] [place] [address] Oct, [place] [address] [address] [place] [id number] [address] [place] [address] Sep, Pain in right hip M25.551 [place] [address] [address] [place] [id number] [address] [place] [address] Sep, Acute upper respiratory infe ction, unspecified J06.9 [place] [address] [place] [id number] [address] [place] [address] Aug, Acute upper respiratory infe ction, unspecified J06.9 and Other viral agents as the cause of diseases classified elsewhere B97.89 [place] [address] [place] [id number] [address] [place] [address] Jul, Arthritis M19.90 [facility] [address] [id number] [address] [place] [address] Jun, Arthritis M19.90 ; Pain in r ight hip M25.551 ; Pain in left hip M25.552 ; Bilateral low back pain with sciatica, sciatica laterality unspecified M54.40 ; Neck pain M54.2 ; Upper back pain M54.9 and Knee pain, unspecified laterality M25.569 [facility] [address] [id number] [address] [place] [address] 10 May, 2015 Osteoarthritis of both knees 715.96 [place] [address] [id number] [address] [place] [address] May, Rash 782.1 [place] [address] [address] [place] [id number] [address] [place] [address] Apr, Lumbar strain 847.2 [facility] [address] [facility] [id number] [address] [place] [address] Apr, Rash 782.1 [facility] [address] [facility] [id number] [address] [place] [address] Mar, Rash 782.1 [facility] [address] [facility] [id number] [address] [place] [address] Feb, Rash 782.1 ; Hemorrhoids 455 .6 and Constipation 564.00 [place] [address] [address] [facility] [id number] [address] [place] [address] Feb, Osteoarthritis of both knees 715.96 [facility] [address] [id number] [address] [place] [address] January, [facility] [address] [facility] [id number] [address] [place] [address] Dec, [place] [address] [address] [facility] [id number] [address] [place] [address] Dec, [facility] [address] [id number] [address] [place] [address], [place] [address] 13 Dec, 2014 [facility] [address] [id number] [address] [place] [address], [place] [address] 18 Nov, 2014 [facility] [address] [id number] [address] [place] [address], [place] [address] 18 Nov, 2014 [facility] [address] [id number] [address] [place] [address], [place] [address] 18 Nov, 2014 [facility] [address] [id number] [address] [place] [address], [place] [address] 18 Nov, 2014 [facility] [address] [id number] [address] [place] [address], [place] [address] Nov, [facility] [address] [id number] [address] [place] [address], [place] [address] Nov, [facility] [address] [id number] [address] [place] [address], [place] [address] Oct, [facility] [address] [id number] [address] [place] [address], [place] [address] Oct, [facility] [address] [id number] [address] [place] [address], [place] [address] Oct, [facility] [address] [id number] [address] [place] [address], [place] [address] Oct, [facility] [address] [id number] [address] [place] [address] Oct, 2014 [facility] [address] [id number] [address] [place] [address], [place] [address] Oct, [facility] [address] [id number] [address] [place] [address], [place] [address] Oct, [facility] [address] [id number] [address] [place] [address] 12 Oct, 2014 [facility] [address] [id number] [address] [place] [address] Oct, [facility] [address] [id number] [address] [place] [address], [place] [address] Oct, [facility] [address] [id number] [address] [place] [address], [place] [address] Oct, [facility] [address] [id number] [address] [place] [address], [place] [address] Sep, [facility] [address] [id number] [address] [place] [address], [place] [address] Sep, [facility] [address] [id number] [address] [place] [address], [place] [address] Sep, [facility] [address] [id number] [address] [place] [address], [place] [address] Sep, [facility] [address] [id number] [address] [place] [address], [place] [address] Sep, [facility] [address] [id number] [address] [place] [address], [place] [address] Sep, [facility] [address] [id number] [address] [place] [address], [place] [address] Aug, [facility] [address] [id number] [address] [place] [address], [place] [address] Aug, [facility] [address] [id number] [address] [place] [address], [place] [address] Aug, [facility] [address] [id number] [address] [place] [address], [place] [address] Aug, [facility] [address] [id number] [address] [place] [address], [place] [address] Aug, [facility] [address] [id number] [address] [place] [address], [place] [address] Aug, [facility] [address] [id number] [address] [place] [address], [place] [address] Aug, [facility] [address] [id number] [address] [place] [address], [place] [address] Aug, [facility] [address] [id number] [address] [place] [address], [place] [address] Aug, [facility] [address] [id number] [address] [place] [address], [place] [address] Aug, [facility] [address] [id number] [address] [place] [address], [place] [address] Jul, [facility] [address] [id number] [address] [place] [address], [place] [address] Jul, [facility] [address] [id number] [address] [place] [address], [place] [address] Jul, [facility] [address] [id number] [address] [place] [address], [place] [address] Jul, [facility] [address] [id number] [address] [place] [address], [place] [address] Jun, [facility] [address] [id number] [address] [place] [address], [place] [address] Jun, [facility] [address] [id number] [address] [place] [address], [place] [address] Jun, [facility] [address] [id number] [address] [place] [address], [place] [address] Jun, [facility] [address] [id number] [address] [place] [address], [place] [address] Jun, [facility] [address] [id number] [address] [place] [address], [place] [address] Jun, [facility] [address] [id number] [address] [place] [address], [place] [address] Jun, [facility] [address] [id number] [address] [place] [address], [place] [address] Jun, [facility] [address] [id number] [address] [place] [address], [place] [address] May, 2013 [facility] [address] [id number] [facility] [place] [address] 24 May, 2013 [facility] [address] [id number] [address] [place] [address], [place] [address] 19 May, 2014 [facility] [address] [id number] [address] [place] [address], [place] [address] 19 May, 2013 [facility] [address] [id number] [address] [place] [address], [place] [address] 15 May, 2013 [facility] [address] [id number] [address] [place] [address], [place] [address] 15 May, 2014 [facility] [address] [id number] [address] [place] [address], [place] [address] 15 May, 2014 [facility] [address] [id number] [address] [place] [address], [place] [address] May, [facility] [address] [id number] [address] [place] [address], [place] [address] Apr, [facility] [address] [id number] [address] [place] [address], [place] [address] Apr, [facility] [address] [id number] [address] [place] [address], [place] [address] Apr, [facility] [address] [id number] [address] [place] [address], [place] [address] Apr, [facility] [address] [id number] [address] [place] [address], [place] [address] Apr, [facility] [address] [id number] [address] [place] [address], [place] [address] Apr, [facility] [address] [id number] [address] [place] [address], [place] [address] Apr, [facility] [address] [id number] [address] [place] [address], [place] [address] Apr, [facility] [address] [id number] [address] [place] [address], [place] [address] Apr, [facility] [address] [id number] [address] [place] [address], [place] [address] Apr, [facility] [address] [id number] [address] [place] [address], [place] [address] Apr, [facility] [address] [id number] [address] [place] [address], [place] [address] Apr, [facility] [address] [id number] [address] [place] [address], [place] [address] Mar, [facility] [address] [id number] [address] [place] [address], [place] [address] Mar, [facility] [address] [id number] [address] [place] [address], [place] [address] Mar, [facility] [address] [id number] [address] [place] [address], [place] [address] Mar, [facility] [address] [id number] [address] [place] [address], [place] [address] Mar, [facility] [address] [id number] [address] [place] [address], [place] [address] Mar, [facility] [address] [id number] [address] [place] [address], [place] [address] Feb, [facility] [address] [id number] [address] [place] [address], [place] [address] Feb, [facility] [address] [id number] [address] [place] [address], [place] [address] Feb, [facility] [address] [id number] [address] [place] [address], [place] [address] Feb, [facility] [address] [id number] [address] [place] [address], [place] [address] Feb, [facility] [address] [id number] [address] [place] [address], [place] [address] Feb, [facility] [address] [id number] [address] [place] [address], [place] [address] Feb, [facility] [address] [id number] [address] [place] [address], [place] [address] Feb, [facility] [address] [id number] [address] [place] [address], [place] [address] Feb, [facility] [address] [id number] [address] [place] [address], [place] [address] Feb, [facility] [address] [id number] [address] [place] [address], [place] [address] Feb, [facility] [address] [id number] [address] [place] [address], [place] [address] Feb, [facility] [address] [id number] [address] [place] [address], [place] [address] Feb, [facility] [address] [id number] [address] [place] [address], [place] [address] Feb, [facility] [address] [id number] [address] [place] [address], [place] [address] January, [facility] [address] [id number] [address] [place] [address], [place] [address] January, [facility] [address] [id number] [address] [place] [address], [place] [address] January, [facility] [address] [id number] [address] [place] [address], [place] [address] January, [facility] [address] [id number] [address] [place] [address], [place] [address] January, [facility] [address] [id number] [address] [place] [address], [place] [address] January, [facility] [address] [id number] [address] [place] [address], [place] [address] Dec, [facility] [address] [id number] [address] [place] [address], [place] [address] Dec, [facility] [address] [id number] [facility] [place] [address] Dec, [facility] [address] [id number] [address] [place] [address], [place] [address] Dec, [facility] [address] [id number] [address] [place] [address], [place] [address] Dec, [facility] [address] [id number] [address] [place] [address], [place] [address] Dec, [facility] [address] [id number] [address] [place] [address], [place] [address] Dec, [facility] [address] [id number] [address] [place] [address], [place] [address] Dec, [facility] [address] [id number] [address] [place] [address], [place] [address] Nov, [facility] [address] [id number] [address] [place] [address], [place] [address] Nov, [facility] [address] [id number] [address] [place] [address], [place] [address] Nov, [facility] [address] [id number] [address] [place] [address], [place] [address] Nov, [facility] [address] [id number] [address] [place] [address], [place] [address] Nov, [facility] [address] [id number] [address] [place] [address], [place] [address] Nov, [facility] [address] [id number] [address] [place] [address], [place] [address] Nov, [facility] [address] [id number] [address] [place] [address], [place] [address] Nov, [facility] [address] [id number] [address] [place] [address], [place] [address] Oct, [facility] [address] [id number] [address] [place] [address], [place] [address] Oct, [facility] [address] [id number] [address] [place] [address], [place] [address] Oct, [facility] [address] [id number] [address] [place] [address], [place] [address] Oct, [facility] [address] [id number] [address] [place] [address], [place] [address] Oct, [facility] [facility] [address] [id number] [address] [place] [address], [place] [address] Oct, [facility] [address] [id number] [address] [place] [address], [place] [address] Oct, [facility] [address] [id number] [address] [place] [address], [place] [address] Oct, [facility] [address] [id number] [address] [place] [address], [place] [address] Oct, [facility] [address] [id number] [address] [place] [address], [place] [address] Oct, [facility] [address] [id number] [address] [place] [address], [place] [address] Sep, [facility] [address] [id number] [address] [place] [address], [place] [address] Sep, [facility] [address] [id number] [address] [place] [address], [place] [address] Sep, [facility] [address] [id number] [address] [place] [address], [place] [address] Sep, [facility] [address] [id number] [address] [place] [address], [place] [address] Sep, [facility] [address] [id number] [address] [place] [address], [place] [address] Sep, [facility] [address] [id number] [address] [place] [address] Aug, [facility] [address] [id number] [address] [place] [address], [place] [address] Aug, [facility] [address] [id number] [address] [place] [address], [place] [address] Aug, [facility] [address] [id number] [address] [place] [address], [place] [address] Aug, [facility] [address] [id number] [address] [place] [address], [place] [address] Aug, [facility] [address] [id number] [address] [place] [address], [place] [address] Aug, [facility] [address] [id number] [address] [place] [address], [place] [address] Aug, [facility] [address] [id number] [address] [place] [address], [place] [address] Aug, [facility] [address] [id number] [address] [place] [address], [place] [address] Jul, [facility] [address] [id number] [address] [place] [address], [place] [address] Jul, [facility] [address] [id number] [address] [place] [address], [place] [address] Jul, [facility] [address] [id number] [address] [place] [address] Jul, [facility] [address] [id number] [address] [place] [address] Jul, [facility] [address] [id number] [address] [place] [address] Jul, [facility] [address] [id number] [address] [place] [address], [place] [address] Jun, [facility] [address] [id number] [address] [place] [address], [place] [address] Jun, [facility] [address] [id number] [address] [place] [address], [place] [address] Jun, [facility] [address] [id number] [address] [place] [address], [place] [address] May, [facility] [address] [id number] [address] [place] [address], [place] [address] May, [facility] [address] [id number] [address] [place] [address], [place] [address] May, [facility] [address] [id number] [address] [place] [address], [place] [address] Apr, [facility] [address] [id number] [address] [place] [address], [place] [address] Apr, [facility] [address] [id number] [address] [place] [address], [place] [address] Apr, [facility] [address] [id number] [address] [place] [address], [place] [address] Apr, [facility] [address] [id number] [address] [place] [address], [place] [address] Mar, [facility] [address] [id number] [address] [place] [address], [place] [address] Mar, [facility] [address] [id number] [address] [place] [address], [place] [address] Mar, [facility] [address] [id number] [address] [place] [address], [place] [address] Mar, [facility] [address] [id number] [address] [place] [address], [place] [address] Feb, [facility] [address] [id number] [address] [place] [address], [place] [address] Feb, [facility] [address] [id number] [address] [place] [address], [place] [address] Feb, [facility] [address] [id number] [address] [place] [address], [place] [address] Feb, [facility] [address] [id number] [address] [place] [address], [place] [address] January, [facility] [address] [id number] [address] [place] [address], [place] [address] January, [facility] [address] [id number] [address] [place] [address], [place] [address] January, [facility] [address] [id number] [address] [place] [address], [place] [address] Nov, [facility] [address] [id number] [address] [place] [address], [place] [address] Nov, [facility] [address] [id number] [address] [place] [address], [place] [address] Oct, [facility] [address] [id number] [address] [place] [address], [place] [address] Oct, [facility] [address] [id number] [address] [place] [address], [place] [address] Oct, [facility] [address] [id number] [address] [place] [address], [place] [address] Oct, [facility] [address] [id number] [address] [place] [address], [place] [address] Sep, [facility] [address] [id number] [address] [place] [address], [place] [address] Sep, [facility] [address] [id number] [address] [place] [address], [place] [address] Sep, [facility] [address] [id number] [address] [place] [address], [place] [address] Aug, [facility] [address] [id number] [address] [place] [address], [place] [address] Aug, [facility] [address] [id number] [address] [place] [address], [place] [address] Aug, [facility] [address] [id number] [address] [place] [address], [place] [address] Aug, [facility] [address] [id number] [address] [place] [address], [place] [address] Aug, [facility] [address] [id number] [address] [place] [address], [place] [address] Aug, [facility] [address] [id number] [address] [place] [address], [place] [address] Jul, [facility] [address] [id number] [address] [place] [address], [place] [address] Jul, [facility] [address] [id number] [address] [place] [address], [place] [address] Jun, [facility] [address] [id number] [address] [place] [address], [place] [address] Jun, [facility] [address] [id number] [address] [place] [address], [place] [address] Jun, [facility] [address] [id number] [address] [place] [address], [place] [address] Apr, [facility] [address] [id number] [address] [place] [address], [place] [address] Apr, [facility] [address] [id number] [address] [place] [address], [place] [address] Mar, [facility] [address] [id number] [address] [place] [address], [place] [address] Mar, [facility] [address] [id number] [address] [place] [address], [place] [address] Mar, [facility] [address] [id number] [address] [place] [address], [place] [address] Mar, [facility] [address] [id number] [address] [place] [address], [place] [address] Feb, [facility] [address] [id number] [address] [place] [address], [place] [address] Feb, [facility] [address] [id number] [address] [place] [address], [place] [address] Feb, [facility] [address] [id number] [address] [place] [address], [place] [address] January, [facility] [address] [id number] [address] [place] [address], [place] [address] January, [facility] [address] [id number] [address] [place] [address], [place] [address] January, [facility] [address] [id number] [address] [place] [address], [place] [address] January, [facility] [address] [id number] [address] [place] [address], [place] [address] Dec, [facility] [address] [id number] [address] [place] [address], [place] [address] Dec, [facility] [address] [id number] [address] [place] [address], [place] [address] Nov, [facility] [address] [id number] [address] [place] [address], [place] [address] Nov, [facility] [address] [id number] [address] [place] [address], [place] [address] Oct, [facility] [address] [id number] [address] [place] [address], [place] [address] Oct, [facility] [address] [id number] [address] [place] [address], [place] [address] Sep, [facility] [address] [id number] [address] [place] [address], [place] [address] Sep, [facility] [address] [id number] [address] [place] [address], [place] [address] Sep, [facility] [address] [id number] [address] [place] [address], [place] [address] Sep, [facility] [address] [id number] [address] [place] [address] 16 Aug, 2011 [facility] [address] [id number] [address] [place] [address], [place] [address] 16 Aug, 2011 [facility] [address] [id number] [address] [place] [address] 09 Aug, 2011 [facility] [address] [id number] [address] [place] [address], [place] [address] Jul, [facility] [address] [id number] [address] [place] [address], [place] [address] 22 Aug, 2010 [facility] [address] [id number] [address] [place] [address], [place] [address] Aug, [facility] [address] [id number] [address] [place] [address], [place] [address] Aug, [facility] [address] [id number] [address] [place] [address] Aug, [facility] [address] [id number] [address] [place] [address] Jul, [facility] [address] [id number] [address] [place] [address] Jul, [facility] [address] [id number] [address] [place] [address] Jul, [facility] [address] [id number] [address] [place] [address] Jun, [facility] [address] [id number] [address] [place] [address] Jun, [facility] [address] [id number] [address] [place] [address] Jun, [facility] [address] [id number] [address] [place] [address] Apr, [facility] [address] [id number] [address] [place] [address] Mar, IMMUNIZATIONS No Known Immunizations SOCIAL HISTORY Never Assessed REASON FOR VISIT PLAN OF CARE VITAL SIGNS Blood pressure systolic 150 mmHg 2013-08-23 Blood pressure diastolic 94 mmHg 2013-08-23 MEDICATIONS Unknown Medications RESULTS No Results PROCEDURES Procedure Date Ordered Result Body Site DRAIN/INJECT, JOINT/BURSA Aug 23, 2013 INSTRUCTIONS MEDICATIONS ADMINISTERED No Known Medications MEDICAL [...]
--- OUTSIDE RECORDS SUMMARY | 2020-03-18 14:55 | XMS REPORT ---
Author Author George WAYNE Organization [facility] Address [address] [place] [address] Care Team Providers Care Circular Knitter Helper Name Role Phone REYNA WAYNE Unavailable PROBLEMS Type Condition ICD9-CM Code VCW66-FB Code Onset Dates Condition S tatus SNOMED Code Problem Hypertension, benign I10 Active 66643871 Problem Other chronic pain G89.29 Active 8 2035538 Problem Lumbago with sciatica, unspecified side M54.40 Active 536864341 Problem Controlled type 2 diabetes m ellitus without complication, without long- term current use of insulin E11.9 Active 097384899 Problem Lumbago with sciatica, right side M54.41 Active 284411688 Problem Adjustment disorder with disturbance of emotion F4 3.29 Active 99728689 Problem MELE (obstructive sleep apnea) G47.33 Active 76227863 Problem Non morbid obesity E66.9 Active 4 19250172 Problem Hammer toe of left foot M20.42 Active 127830940 Problem Mood disorder F39 Active 411511 05 Problem Deformity of left foot M21.962 Active 280545029 Problem Lumbago with sciatica, left side M54.42 Active 301877985 Problem Erectile dysfunction due to diseases classified elsewhere N52.1 Active 198503938 Problem Obstructive sleep apnea syndrome G47.33 Active 44832143 Problem Type 2 diabetes mellitus wit h diabetic neuropathy, without long-term current use of insulin E11.40 Active 63754 006 Problem Essential hypertension I10 Active 36693041 ALLERGIES No Information ENCOUNTERS Encounter Location Date Diagnosis [facility] [address] [id number] [address] [place] [address] January, [facility] [address] [id number] [address] [place] [address] Dec, Acute diffuse otitis externa of left ear H60.312 [facility] [address] [address] Nov, Viral URI J06.9 and Flu-like symptoms R68.89 [place] [address] [place] [address] Nov, Type 2 diabetes mellitus wit h diabetic neuropathy, without long- term current use of insulin E11.40 ; Family history of prostate cancer Z80.42 and Prostate cancer screening Z12.5 [place] [address] [address] Nov, [place] [address] [address] Sep, [place] [address] [address] Aug, [place] [address] [address] Jul, Lumbago with sciatica, unspe cified side M54.40 [place] [address] [address] Jun, Lumbago with sciatica, unspe cified side M54.40 [place] [address] [address] Jun, URI, acute J06.9 [place] [address] [address] May, Lumbago with sciatica, unspe cified side M54.40 [place] [address] [address] May, [address] [address] May, Type 2 diabetes mellitus wit h diabetic neuropathy, without long- term current use of insulin E11.40 and Hammer toe of left foot M20.42 [place] [address] [address] May, [facility] [address] [facility] [id number] [address] [place] [address] May, [facility] [address] [facility] [id number] [address] [place] [address] May, [facility] [address] [facility] [id number] [address] [place] [address] Apr, Lumbago with sciatica, unspe cified side M54.40 [facility] [address] [facility] [id number] [address] [place] [address] Apr, [facility] [address] [facility] [id number] [address] [place] [address] Apr, [address] [place] [id number] [address] Apr, Hammer toe of left foot M20. 42 ; Chest pain R07.9 ; Preoperative examination Z01.818 and Morbid obesity E66.01 [facility] [address] [facility] [id number] [address] [place] [address] Apr, Morbid obesity E66.01 ; Bron chitis J40 and High risk medications (not anticoagulants) long-term use Z79.899 [facility] [address] [facility] [id number] [address] [place] [address] Apr, Lumbago with sciatica, unspe cified side M54.40 [facility] [address] [facility] [id number] [address] [place] [address] Apr, [facility] [address] [facility] [id number] [address] [place] [address] Mar, Lumbar neuritis M54.16 and M orbid obesity E66.01 [facility] [address] [facility] [id number] [address] [place] [address] Mar, [facility] [address] [facility] [id number] [address] [place] [address] Mar, [facility] [address] [id number] [address] [place] [address] Mar, Lumbago with sciatica, unspe cified side M54.40 [facility] [address] [facility] [id number] [address] [place] [address] Mar, Morbid obesity E66.01 ; Coug marco R05 ; 2+ pitting edema R60.9 and Controlled type 2 diabetes mellitus without complication, without long-term current use of insulin E11.9 [facility] [address] [id number] [address] [place] [address] Feb, [facility] [address] [id number] [address] [place] [address] Feb, Lumbago with sciatica, unspe cified side M54.40 [place] [address] [facility] [id number] [address] [place] [address] Feb, [facility] [address] [facility] [id number] [address] [place] [address] Feb, Controlled type 2 diabetes m ellitus without complication, without long-term current use of insulin E11.9 and Morbid obesity E66.01 [facility] [address] [id number] [address] [place] [address] January, Deformity of left foot M21.9 62 [facility] [address] [id number] [address] [place] [address] January, [facility] [address] [id number] [address] [place] [address] January, Lumbago with sciatica, unspe cified side M54.40 [facility] [address] [facility] [id number] [address] [place] [address] January, [facility] [address] [facility] [id number] [address] [place] [address] January, Lumbago with sciatica, unspe cified side M54.40 [place] [address] [facility] [id number] [address] [place] [address] January, [facility] [id number] [place] [address] January, Acute right-sided thoracic b ack pain M54.6 [place] [address] [id number] [address] [place] [address] January, Acute right-sided thoracic b ack pain M54.6 [facility] [address] [id number] [address] [place] [address] January, Chest pain, unspecified type R07.9 ; Morbid obesity E66.01 and Scabies B86 [place] [address] [address] [id number] [place] [address] Dec, Lumbago with sciatica, unspe cified side M54.40 [place] [address] [place] [id number] [address] [place] [address] Dec, Toenail fungus B35.1 [place] [address] [place] [id number] [address] [place] [address] Dec, Toenail fungus B35.1 [place] [address] [id number] [place] [address] Dec, Acute right-sided thoracic b ack pain M54.6 [place] [address] [address] [id number] [place] [address] Dec, Lumbago with sciatica, unspe cified side M54.40 [place] [address] [id number] [place] [address] Nov, Hammer toe of left foot M20. 42 ; Deformity of left foot M21.962 and Type 2 diabetes mellitus with diabetic neuropathy, without long-term current use of insulin E11.40 [facility] [address] [facility] [id number] [address] [place] [address] Nov, Acute right-sided thoracic b ack pain M54.6 ; Morbid obesity E66.01 and Rt flank pain R10.9 [place] [address] [address] Nov, Lumbago with sciatica, unspe cified side M54.40 [place] [address] [address] Oct, Lumbago with sciatica, unspe cified side M54.40 [place] [address] [address] Sep, Lumbago with sciatica, unspe cified side M54.40 [place] [address] [address] Sep, [place] [address] [address] Sep, BMI 40.0-44.9, adult Z68.41 ; Lumbago with sciatica, left side M54.42 ; Lumbago with sciatica, right side M54.41 and Other chronic pain G89.29 [place] [address] [address] Aug, Lumbago with sciatica, unspe cified side M54.40 [place] [address] [address] Aug, Type 2 diabetes mellitus wit h diabetic neuropathy, without long- term current use of insulin E11.40 ; Hammer toe of left foot M20.42 ; Hypertension, benign I10 and Frequent headaches R51 [place] [address] [address] Jul, Lumbago with sciatica, unspe cified side M54.40 [place] [address] [id number] [place] [address] Jul, [place] [address] [place] [id number] [address] [place] [address] Jul, Essential hypertension I10 a nd Controlled type 2 diabetes mellitus without complication, without long-term current use of insulin E11.9 [place] [id number] [facility] [id number] [address] [place] [address] Jul, Essential hypertension I10 ; Controlled type 2 diabetes mellitus without complication, without long-term current use of insulin E11.9 and BMI 40.0-44.9, adult Z68.41 [place] [address] [facility] [id number] [address] [place] [address] Jul, Dysfunction of left eustachi an tube H69.82 [place] [address] [facility] [id number] [address] [place] [address] Jul, Lumbago with sciatica, unspe cified side M54.40 [facility] [place] [facility] [id number] [place] [id number] Jun, Dental examination Z01.20 [place] [address] [id number] [place] [address] Jun, Lumbago with sciatica, unspe cified side M54.40 and Encounter for immunization Z23 [place] [address] [address] [id number] [place] [address] Jun, Dysfunction of left eustachi an tube H69.82 [place] [id number] [facility] [id number] [place] [address] [id number] Jun, Dental examination Z01.20 [facility] [address] [facility] [id number] [address] [place] [address] Jun, Other chronic pain G89.29 [facility] [place] [facility] [address] [id number] [address] [place] [address] [id number] Jun, Dental examination Z01.20 [facility] [address] [facility] [id number] [address] [place] [address] Jun, [place] [address] [place] [id number] [address] [place] [address] Jun, Bronchitis J40 ; Dysfunction of left eustachian tube H69.82 and BMI 45.0-49.9, adult Z68.42 [place] [address] [place] [id number] [place] [address] Jun, Lumbago with sciatica, unspe cified side M54.40 [place] [address] [place] [id number] [place] [address] May, Type 2 diabetes mellitus wit h diabetic neuropathy, without long- term current use of insulin E11.40 and Hypertension, benign I10 [place] [address] [address] May, Lumbago with sciatica, unspe cified side M54.40 [facility] [address] [address] Apr, [place] [address] [address] Apr, Controlled type 2 diabetes m ellitus without complication, without long-term current use of insulin E11.9 ; Insect bite (nonvenomous), right ankle, initial encounter S90.561A ; Local infection of the skin and subcutaneous tissue, unspecified L08.9 ; Acute swimmer''s ear of left side H60.332 and BMI 45.0-49.9, adult Z68.42 [place] [address] [place] [id number] [place] [address] Apr, Lumbago with sciatica, unspe cified side M54.40 [place] [address] [address] Mar, [place] [address] [address] Mar, Lumbago with sciatica, unspe cified side M54.40 [place] [address] [place] [address] 14 Feb, 2018 Lumbago with sciatica, unspe cified side M54.40 [facility] [id number] [place] [address] Feb, BMI 45.0-49.9, adult Z68.42 and Obstructive sleep apnea syndrome G47.33 [facility] [id number] [place] [address] January, Lumbar neuritis M54.16 [facility] [id number] [place] [address] January, Lumbago with sciatica, unspe cified side M54.40 [facility] [id number] [place] [address] Dec, Controlled type 2 diabetes m ellitus without complication, without long-term current use of insulin E11.9 ; Erectile dysfunction due to diseases classified elsewhere N52.1 and Mood disorder F39 [facility] [id number] [place] [address] Dec, Lumbago with sciatica, unspe cified side M54.40 [facility] [id number] [place] [address] Dec, Obstructive sleep apnea synd luis G47.33 [facility] [id number] [place] [address] Nov, Lumbago with sciatica, unspe cified side M54.40 ; Hypertension, benign I10 and Mood disorder F39 [facility] [address] [facility] [id number] [address] [place] [address] Nov, Other chronic pain G89.29 [facility] [address] [facility] [id number] [address] [place] [address] Nov, Lumbago with sciatica, unspe cified side M54.40 [facility] [place] [facility] [address] [facility] [id number] [address] [place] [address] [id number] Nov, Dental examination Z01.20 [facility] [address] [id number] [address] [place] [address] Oct, [facility] [address] [id number] [address] [place] [address] Oct, Lumbago with sciatica, unspe cified side M54.40 [facility] [address] [id number] [address] [place] [address] Oct, Lumbago with sciatica, unspe cified side M54.40 [facility] [address] [id number] [address] [place] [address] Oct, [facility] [address] [facility] [id number] [address] [place] [address] Oct, [facility] [place] [facility] [address] [facility] [id number] [address] [place] [address] [id number] Oct, Dental examination Z01.20 [facility] [address] [id number] [address] [place] [address] Oct, [facility] [address] [facility] [id number] [address] [place] [address] Oct, Pain in right knee M25.561 [facility] [address] [id number] [address] [place] [address] Sep, [facility] [address] [facility] [id number] [address] [place] [address] Sep, Other chronic pain G89.29 [facility] [address] [id number] [address] [place] [address] Sep, Lumbago with sciatica, unspe cified side M54.40 [facility] [address] [id number] [address] [place] [address] Sep, [facility] [address] [facility] [id number] [address] [place] [address] Sep, Viral URI J06.9 and BMI 45.0 -49.9, adult Z68.42 [facility] [address] [address] Aug, Foreign body hand S60.559A a nd BMI 45.0-49.9, adult Z68.42 [place] [address] [address] Aug, [place] [address] [address] Aug, Lumbago with sciatica, unspe cified side M54.40 [place] [address] [address] Aug, Vertigo R42 ; Dysfunction of both eustachian tubes H69.83 ; Low back pain M54.5 and Other chronic pain G89.29 [facility] [address] [address] Aug, Dizziness R42 and Acute bila teral otitis media H66.93 [place] [address] [address] Aug, Lumbago with sciatica, unspe cified side M54.40 [facility] [place] [facility] [address] [place] [id number] [place] [id number] Jul, Dental examination Z01.20 [place] [address] [place] [id number] [address] [place] [address] Jul, [place] [address] [address] Jul, [place] [address] [address] Jul, Dysfunction of both eustachi an tubes H69.83 [place] [address] [address] Jul, Controlled type 2 diabetes m ellitus without complication, without long-term current use of insulin E11.9 [facility] [address] [facility] [id number] [address] [place] [address] Jul, Controlled type 2 diabetes m ellitus without complication, without long-term current use of insulin E11.9 [facility] [address] [id number] [address] [place] [address] Jul, Dizziness R42 and BMI 40.0-4 4.9, adult Z68.41 [facility] [address] [id number] [address] [place] [address] Jul, Controlled type 2 diabetes m ellitus without complication, without long-term current use of insulin E11.9 [place] [address] [id number] [address] [place] [address] Jul, Lumbago with sciatica, unspe cified side M54.40 [facility] [place] [facility] [id number] [place] [address] [id number] Jul, Dental examination Z01.20 [facility] [address] [id number] [address] [place] [address] Jun, [facility] [place] [facility] [id number] [place] [address] [id number] Jun, Dental examination Z01.20 [place] [id number] [id number] [address] [place] [address] Jun, Controlled type 2 diabetes m ellitus without complication, without long-term current use of insulin E11.9 [facility] [address] [id number] [address] [place] [address] Jun, Lumbago with sciatica, unspe cified side M54.40 [facility] [place] [facility] [address] [id number] [address] [place] [address] [id number] May, Dental examination Z01.20 [facility] [address] [id number] [address] [place] [address] May, Controlled type 2 diabetes m ellitus without complication, without long-term current use of insulin E11.9 [facility] [place] [facility] [address] [id number] [address] [place] [address] [id number] 19 May, 2017 Dental examination Z01.20 [facility] [address] [id number] [address] [place] [address] 18 May, 2017 Bronchitis J40 ; Dry mouth R 68.2 ; Non morbid obesity E66.9 and Controlled type 2 diabetes mellitus without complication, without long-term current use of insulin E11.9 [facility] [address] [id number] [address] [place] [address] 16 May, 2017 Encounter for immunization Z 23 [facility] [address] [id number] [address] [place] [phone] 07 May, 2017 Lumbago with sciatica, unspe cified side M54.40 [facility] [address] [id number] [address] [place] [phone] 05 May, 2017 [facility] [place] [facility] [address] [id number] [address] [place] [address] [id number] Apr, Dental examination Z01.20 [facility] [address] [id number] [address] [place] [address] Apr, Lumbago with sciatica, unspe cified side M54.40 [facility] [address] [id number] [address] [place] [address] Mar, Lumbago with sciatica, left side M54.42 [facility] [address] [id number] [address] [place] [id number] Mar, [facility] [address] [id number] [address] [place] [address] Mar, Lumbar neuritis M54.16 [facility] [address] [id number] [address] [place] [id number] Mar, [facility] [place] [facility] [address] [place] [id number] [address] [place] [address] [id number] Mar, Dental examination Z01.20 [place] [address] [facility] [id number] [address] [place] [address] Mar, MELE (obstructive sleep apnea ) G47.33 ; Neuropathy involving both lower extremities G57.93 and Frequent headaches R51 [place] [address] [id number] [address] [place] [id number] Mar, Lumbago with sciatica, unspe cified side M54.40 [place] [address] [id number] [address] [place] [phone] Feb, Lumbago with sciatica, unspe cified side M54.40 and Controlled type 2 diabetes mellitus without complication, without long-term current use of insulin E11.9 [place] [address] [facility] [id number] [address] [place] [id number] January, Hypertension, benign I10 and Bilateral low back pain with sciatica, sciatica laterality unspecified M54.40 [place] [address] [id number] [address] [place] [id number] January, Hypertension, benign I10 ; L umbago with sciatica, unspecified side M54.40 ; Other chronic pain G89.29 and Controlled type 2 diabetes mellitus without complication, without long-term current use of insulin E11.9 [place] [address] [facility] [id number] [address] [place] [phone] January, Lumbar neuritis M54.16 [place] [address] [id number] [address] [place] [id number] January, [place] [address] [facility] [id number] [address] [place] [phone] Dec, Lumbago with sciatica, right side M54.41 and Lumbar neuritis M54.16 [place] [address] [facility] [id number] [address] [place] [phone] Dec, Lumbar neuritis M54.16 [place] [address] [place] [id number] [address] [place] [phone] Dec, Lumbar neuritis M54.16 [place] [address] [facility] [id number] [address] [place] [phone] 16 Nov, 2016 Lumbar neuritis M54.16 ; Lum bago with sciatica, right side M54.41 ; Controlled type 2 diabetes mellitus without complication, without long-term current use of insulin E11.9 and Rash and nonspecific skin eruption R21 [place] [address] [place] [id number] [address] [place] [phone] Nov, Lumbar neuritis M54.16 and P alexi romany L23.7 [place] [address] [place] [id number] [place] [phone] 16 Oct, 2016 Lumbar neuritis M54.16 ; Cou ghing R05 and Mood disorder F39 [place] [address] [place] [id number] [address] [place] [address] [address] Sep, Lumbago with sciatica, right side M54.41 [place] [address] [place] [id number] [place] [address] Sep, Adjustment disorder with dis turbance of emotion F43.29 and Pain management R52 [place] [address] [place] [id number] [address] [place] [address] Sep, [place] [address] [place] [id number] [address] [place] [address] Sep, [place] [address] [place] [id number] [address] [place] [address] Sep, Controlled type 2 diabetes evens reyna without complication, without long-term current use of insulin E11.9 and Lumbago with sciatica, unspecified side M54.40 [place] [address] [place] [id number] [address] [place] [address] Aug, Controlled type 2 diabetes evens reyna without complication, without long-term current use of insulin E11.9 ; Pain in right knee M25.561 ; Pain in left knee M25.562 ; Other chronic pain G89.29 ; Lumbago with sciatica, right side M54.41 ; Neck pain M54.2 and Encounter for immunization Z23 [facility] [address] [id number] [address] [place] [address] Jul, [facility] [address] [id number] [address] [place] [address] Jul, Controlled type 2 diabetes evens reyna without complication, without long-term current use of insulin E11.9 [facility] [address] [id number] [address] [place] [address] Jul, [facility] [address] [id number] [address] [place] [address] Jul, [facility] [address] [id number] [address] [place] [address] Jul, Lumbago with sciatica, left side M54.42 ; Lumbago with sciatica, right side M54.41 and Other chronic pain G89.29 [facility] [address] [id number] [address] [place] [address] Jul, [facility] [address] [id number] [address] [place] [address] Jul, [facility] [address] [id number] [address] [place] [address] Jun, [facility] [address] [id number] [address] [place] [address] Jun, Lumbago with sciatica, right side M54.41 and Other chronic pain G89.29 [facility] [address] [id number] [address] [place] [address] Jun, Cervicalgia M54.2 ; Lumbago with sciatica, unspecified side M54.40 and Other chronic pain G89.29 [facility] [address] [id number] [address] [place] [address] 15 May, 2016 Pain in right knee M25.561 ; Pain in left knee M25.562 and Other chronic pain G89.29 [facility] [address] [id number] [address] [place] [address] 14 May, 2016 [facility] [address] [id number] [address] [place] [address] Apr, Other chronic pain G89.29 an d Pain in right knee M25.561 [facility] [address] [id number] [address] [place] [address] Apr, Pain in right knee M25.561 [facility] [address] [id number] [address] [place] [address] Mar, [facility] [address] [id number] [address] [place] [address] Mar, Mood disorder F39 and Contro lled type 2 diabetes mellitus without complication, without long-term current use of insulin E11.9 [facility] [address] [id number] [address] [place] [address] Mar, Pain in right knee M25.561 ; Pain in left knee M25.562 ; Other chronic pain G89.29 ; Obstructive sleep apnea syndrome G47.33 ; Mood disorder F39 and Controlled type 2 diabetes mellitus without complication, without long- term current use of insulin E11.9 [facility] [address] [id number] [address] [place] [address] Mar, [facility] [address] [id number] [address] [place] [id number] Feb, Dental examination Z01.20 [facility] [address] [id number] [address] [place] [address] Feb, [facility] [address] [id number] [address] [place] [address] Feb, Osteoarthritis of right knee , unspecified osteoarthritis type M17.9 [facility] [address] [id number] [address] [place] [address] January, [facility] [address] [id number] [address] [place] [id number] January, Dental examination Z01.20 [facility] [address] [id number] [address] [place] [address] January, [facility] [address] [id number] [address] [place] [address] [id number] January, Dental examination Z01.20 an d Caries K02.9 [facility] [address] [id number] [address] [place] [address] Dec, Encounter for other preproce dural examination Z01.818 [facility] [address] [id number] [address] [place] [address] Dec, [facility] [address] [id number] [address] [place] [address] Dec, Knee pain M25.569 [facility] [address] [id number] [address] [place] [address] 15 Dec, 2015 Pain in right knee M25.561 [facility] [address] [id number] [address] [place] [address] 14 Dec, 2015 [facility] [address] [id number] [address] [place] [id number] Dec, [facility] [address] [id number] [address] [place] [address] Dec, Encounter for immunization Z 23 [facility] [address] [id number] [address] [place] [address] Dec, [facility] [address] [id number] [address] [place] [address] Dec, [facility] [address] [id number] [address] [place] [address] Nov, [facility] [address] [id number] [address] [place] [address] Nov, Hypertension, benign I10 ; C ervicalgia M54.2 ; Pain in right knee M25.561 and Pain in left knee M25.562 [place] [id number] [facility] [id number] [address] [place] [address] Oct, [facility] [address] [facility] [id number] [address] [place] [address] Oct, [facility] [address] [place] [id number] [place] [address] Oct, Osteoarthritis of both knees M17.0 [place] [address] [place] [id number] [place] [address] Oct, [place] [address] [place] [id number] [place] [address] Oct, Low back pain M54.5 [place] [address] [place] [id number] [place] [address] Oct, Low back pain M54.5 ; Sciati ca, unspecified side M54.30 ; Pain in right knee M25.561 ; Pain in left knee M25.562 ; Pain in right shoulder M25.511 and Pain in left shoulder M25.512 [place] [address] [place] [id number] [address] [place] [address] Oct, [place] [address] [place] [id number] [address] [place] [address] Sep, Pain in right hip M25.551 [place] [address] [place] [id number] [address] [place] [address] Sep, Acute upper respiratory infe ction, unspecified J06.9 [place] [address] [place] [id number] [address] [place] [address] Aug, Acute upper respiratory infe ction, unspecified J06.9 and Other viral agents as the cause of diseases classified elsewhere B97.89 [facility] [address] [id number] [address] [place] [address] Jul, Arthritis M19.90 [facility] [address] [id number] [address] [place] [address] Jun, Arthritis M19.90 ; Pain in r ight hip M25.551 ; Pain in left hip M25.552 ; Bilateral low back pain with sciatica, sciatica laterality unspecified M54.40 ; Neck pain M54.2 ; Upper back pain M54.9 and Knee pain, unspecified laterality M25.569 [facility] [address] [id number] [address] [place] [address] May, Osteoarthritis of both knees 715.96 [facility] [address] [id number] [address] [place] [address] May, Rash 782.1 [place] [address] [facility] [id number] [address] [place] [address] Apr, Lumbar strain 847.2 [facility] [address] [id number] [address] [place] [address] Apr, Rash 782.1 [facility] [address] [facility] [id number] [address] [place] [address] Mar, Rash 782.1 [facility] [address] [facility] [id number] [address] [place] [address] Feb, Rash 782.1 ; Hemorrhoids 455 .6 and Constipation 564.00 [facility] [address] [id number] [address] [place] [address] Feb, Osteoarthritis of both knees 715.96 [facility] [address] [id number] [address] [place] [address] January, [facility] [address] [facility] [id number] [address] [place] [id number] Dec, [facility] [address] [id number] [address] [place] [address] 14 Dec, 2014 [facility] [address] [id number] [address] [place] [address], [place] [address] 13 Dec, 2014 [facility] [address] [id number] [address] [place] [address], [place] [address] 18 Nov, 2014 [facility] [address] [id number] [address] [place] [address], [place] [address] 18 Nov, 2014 [facility] [address] [id number] [address] [place] [address], [place] [address] 18 Nov, 2014 [facility] [address] [id number] [address] [place] [address], [place] [address] 18 Nov, 2014 [facility] [address] [id number] [address] [place] [address], [place] [address] Nov, [facility] [address] [id number] [address] [place] [address], [place] [address] Nov, [facility] [address] [id number] [address] [place] [address], [place] [address] Oct, [facility] [address] [id number] [address] [place] [address], [place] [address] Oct, [facility] [address] [id number] [address] [place] [address], [place] [address] Oct, [facility] [address] [id number] [address] [place] [address], [place] [address] Oct, 2014 [facility] [address] [id number] [address] [place] [address], [place] [address] Oct, 2014 [facility] [address] [id number] [address] [place] [address], [place] [address] Oct, 2014 [facility] [address] [id number] [address] [place] [id number] Oct, 2014 [facility] [address] [id number] [address] [place] [id number] Oct, [facility] [address] [id number] [address] [place] [address], [place] [address] Oct, 2014 [facility] [address] [id number] [address] [place] [address], [place] [address] Oct, [facility] [address] [id number] [address] [place] [address], [place] [address] Oct, [facility] [address] [id number] [address] [place] [address], [place] [address] Sep, [facility] [address] [id number] [address] [place] [address], [place] [address] Sep, [facility] [address] [id number] [address] [place] [address], [place] [address] Sep, [facility] [address] [id number] [address] [place] [address], [place] [address] Sep, [facility] [address] [id number] [address] [place] [address], [place] [address] Sep, [facility] [address] [id number] [address] [place] [address], [place] [address] Sep, [facility] [address] [id number] [address] [place] [address], [place] [address] Aug, [facility] [address] [id number] [address] [place] [address], [place] [address] Aug, [facility] [address] [id number] [address] [place] [address], [place] [address] Aug, [facility] [address] [id number] [address] [place] [address], [place] [address] Aug, [facility] [address] [id number] [address] [place] [address], [place] [address] Aug, [facility] [address] [id number] [address] [place] [address], [place] [address] Aug, [facility] [address] [id number] [address] [place] [address], [place] [address] 05 Aug, 2014 [facility] [address] [id number] [address] [place] [address], [place] [address] Aug, [facility] [address] [id number] [address] [place] [address], [place] [address] Aug, [facility] [address] [id number] [address] [place] [address], [place] [address] Aug, [facility] [address] [id number] [address] [place] [address], [place] [address] Jul, [facility] [address] [id number] [address] [place] [address], [place] [address] Jul, [facility] [address] [id number] [address] [place] [address], [place] [address] Jul, [facility] [address] [id number] [address] [place] [address], [place] [address] Jul, [facility] [address] [id number] [address] [place] [address], [place] [address] Jun, [facility] [address] [id number] [address] [place] [address], [place] [address] Jun, [facility] [address] [id number] [address] [place] [address], [place] [address] Jun, [facility] [address] [id number] [address] [place] [address], [place] [address] Jun, [facility] [address] [id number] [address] [place] [address], [place] [address] Jun, [facility] [address] [id number] [address] [place] [address], [place] [address] Jun, [facility] [address] [id number] [address] [place] [address], [place] [address] Jun, [facility] [address] [id number] [address] [place] [address] Jun, [facility] [address] [id number] [facility] [place] [address] 24 May, 2013 [facility] [address] [id number] [address] [place] [address], [place] [address] 24 May, 2014 [facility] [address] [id number] [address] [place] [address], [place] [address] 19 May, 2014 [facility] [address] [id number] [address] [place] [address], [place] [address] 19 May, 2014 [facility] [address] [id number] [address] [place] [address], [place] [address] 15 May, 2014 [facility] [address] [id number] [address] [place] [address], [place] [address] 15 May, 2014 [facility] [address] [id number] [address] [place] [address], [place] [address] 15 May, 2014 [facility] [address] [id number] [address] [place] [address], [place] [address] May, [facility] [address] [id number] [address] [place] [address], [place] [address] Apr, [facility] [address] [id number] [address] [place] [address], [place] [address] Apr, [facility] [address] [id number] [address] [place] [address], [place] [address] Apr, [facility] [address] [id number] [address] [place] [address], [place] [address] Apr, [facility] [address] [id number] [address] [place] [address], [place] [address] Apr, [facility] [address] [id number] [address] [place] [address], [place] [address] Apr, [facility] [address] [id number] [address] [place] [address], [place] [address] Apr, [facility] [address] [id number] [address] [place] [address], [place] [address] Apr, [facility] [address] [id number] [address] [place] [address], [place] [address] Apr, [facility] [address] [id number] [address] [place] [address], [place] [address] Apr, [facility] [address] [id number] [address] [place] [address], [place] [address] Apr, [facility] [address] [id number] [address] [place] [address], [place] [address] Apr, [facility] [address] [id number] [address] [place] [address], [place] [address] Mar, [facility] [address] [id number] [address] [place] [address], [place] [address] Mar, [facility] [address] [id number] [address] [place] [address], [place] [address] Mar, [facility] [address] [id number] [address] [place] [address], [place] [address] Mar, [facility] [address] [id number] [address] [place] [address], [place] [address] Mar, [facility] [address] [id number] [address] [place] [address], [place] [address] Mar, [facility] [address] [id number] [address] [place] [address], [place] [address] Feb, [facility] [address] [id number] [address] [place] [address], [place] [address] Feb, [facility] [address] [id number] [address] [place] [address], [place] [address] Feb, [facility] [address] [id number] [address] [place] [address], [place] [address] Feb, [facility] [address] [id number] [address] [place] [address], [place] [address] Feb, [facility] [address] [id number] [facility] [place] [address] 16 Feb, 2014 [facility] [address] [id number] [address] [place] [address], [place] [address] Feb, [facility] [address] [id number] [address] [place] [address], [place] [address] Feb, [facility] [address] [id number] [address] [place] [address], [place] [address] Feb, [facility] [address] [id number] [address] [place] [address], [place] [address] Feb, [facility] [address] [id number] [address] [place] [address], [place] [address] Feb, [facility] [address] [id number] [address] [place] [address], [place] [address] Feb, [facility] [address] [id number] [address] [place] [address], [place] [address] Feb, [facility] [address] [id number] [address] [place] [address], [place] [address] Feb, [facility] [address] [id number] [address] [place] [address], [place] [address] January, [facility] [address] [id number] [address] [place] [address], [place] [address] January, [facility] [address] [id number] [address] [place] [address], [place] [address] January, [facility] [address] [id number] [address] [place] [address], [place] [address] January, [facility] [address] [id number] [address] [place] [address], [place] [address] January, [facility] [address] [id number] [address] [place] [address], [place] [address] January, [facility] [address] [id number] [address] [place] [address], [place] [address] Dec, [facility] [address] [id number] [facility] [place] [address] Dec, [facility] [address] [id number] [address] [place] [address], [place] [address] Dec, [facility] [address] [id number] [address] [place] [address], [place] [address] Dec, [facility] [address] [id number] [address] [place] [address], [place] [address] Dec, [facility] [address] [id number] [address] [place] [address], [place] [address] Dec, [facility] [address] [id number] [address] [place] [address], [place] [address] Dec, [facility] [address] [id number] [address] [place] [address], [place] [address] Dec, [facility] [address] [id number] [address] [place] [address], [place] [address] Nov, [facility] [address] [id number] [address] [place] [address], [place] [address] Nov, [facility] [address] [id number] [address] [place] [address], [place] [address] Nov, [facility] [address] [id number] [address] [place] [address], [place] [address] Nov, [facility] [address] [id number] [address] [place] [address], [place] [address] Nov, [facility] [address] [id number] [address] [place] [address], [place] [address] Nov, [facility] [address] [id number] [address] [place] [address], [place] [address] Nov, [facility] [address] [id number] [address] [place] [address], [place] [address] Nov, [facility] [address] [id number] [address] [place] [address], [place] [address] Oct, [facility] [address] [id number] [address] [place] [address], [place] [address] Oct, [facility] [address] [id number] [address] [place] [address], [place] [address] Oct, [facility] [address] [id number] [address] [place] [address], [place] [address] Oct, [facility] [address] [id number] [address] [place] [address], [place] [address] Oct, [facility] [address] [id number] [address] [place] [address], [place] [address] Oct, [facility] [address] [id number] [address] [place] [address], [place] [address] Oct, [facility] [address] [id number] [address] [place] [address], [place] [address] Oct, [facility] [address] [id number] [address] [place] [address], [place] [address] Oct, [facility] [address] [id number] [address] [place] [address], [place] [address] Oct, [facility] [address] [id number] [address] [place] [address], [place] [address] Sep, [facility] [address] [id number] [address] [place] [address], [place] [address] Sep, [facility] [address] [id number] [address] [place] [address], [place] [address] Sep, [facility] [address] [id number] [address] [place] [address], [place] [address] Sep, [facility] [address] [id number] [address] [place] [address], [place] [address] Sep, [facility] [address] [id number] [address] [place] [address], [place] [address] Sep, [facility] [address] [id number] [address] [place] [address], [place] [address] Aug, [facility] [address] [id number] [address] [place] [address], [place] [address] Aug, [facility] [address] [id number] [address] [place] [address], [place] [address] Aug, [facility] [address] [id number] [address] [place] [address], [place] [address] Aug, [facility] [address] [id number] [address] [place] [address], [place] [address] Aug, [facility] [address] [id number] [address] [place] [address], [place] [address] Aug, [facility] [address] [id number] [address] [place] [address], [place] [address] Aug, [facility] [facility] [address] [id number] [address] [place] [address], [place] [address] Aug, [facility] [address] [id number] [address] [place] [address], [place] [address] Jul, [facility] [address] [id number] [address] [place] [address], [place] [address] Jul, [facility] [address] [id number] [address] [place] [address], [place] [address] Jul, [facility] [address] [id number] [address] [place] [address], [place] [address] Jul, [facility] [address] [id number] [address] [place] [address], [place] [address] Jul, [facility] [address] [id number] [address] [place] [address], [place] [address] Jul, [facility] [address] [id number] [address] [place] [address], [place] [address] Jun, [facility] [address] [id number] [address] [place] [address] [place] [address] Jun, [facility] [address] [id number] [address] [place] [address], [place] [address] Jun, [facility] [address] [id number] [address] [place] [address], [place] [address] May, [facility] [address] [id number] [address] [place] [address], [place] [address] May, [facility] [address] [id number] [address] [place] [address], [place] [address] May, [facility] [address] [id number] [address] [place] [address], [place] [address] Apr, [facility] [address] [id number] [address] [place] [address], [place] [address] Apr, [facility] [address] [id number] [address] [place] [address], [place] [address] Apr, [facility] [address] [id number] [address] [place] [address], [place] [address] Apr, [facility] [address] [id number] [address] [place] [address], [place] [address] Mar, [facility] [address] [id number] [address] [place] [address], [place] [address] Mar, [facility] [address] [id number] [address] [place] [address], [place] [address] Mar, [facility] [address] [id number] [address] [place] [address], [place] [address] Mar, [facility] [address] [id number] [address] [place] [address], [place] [address] Feb, [facility] [address] [id number] [address] [place] [address], [place] [address] Feb, [facility] [address] [id number] [address] [place] [address], [place] [address] Feb, [facility] [address] [id number] [address] [place] [address], [place] [address] Feb, [facility] [address] [id number] [address] [place] [address], [place] [address] January, [facility] [address] [id number] [address] [place] [address], [place] [address] January, [facility] [address] [id number] [address] [place] [address], [place] [address] January, [facility] [address] [id number] [address] [place] [address], [place] [address] Nov, [facility] [address] [id number] [address] [place] [address], [place] [address] Nov, [facility] [address] [id number] [address] [place] [address], [place] [address] Oct, [facility] [address] [id number] [address] [place] [address], [place] [address] Oct, [facility] [address] [id number] [address] [place] [address], [place] [address] Oct, [facility] [address] [id number] [address] [place] [address], [place] [address] Oct, [facility] [address] [id number] [address] [place] [address], [place] [address] Sep, [facility] [address] [id number] [address] [place] [address], [place] [address] Sep, [facility] [address] [id number] [address] [place] [address], [place] [address] Sep, [facility] [address] [id number] [address] [place] [address], [place] [address] Aug, [facility] [address] [id number] [address] [place] [address], [place] [address] Aug, [facility] [address] [id number] [address] [place] [address], [place] [address] Aug, [facility] [address] [id number] [address] [place] [address], [place] [address] Aug, [facility] [address] [id number] [address] [place] [address], [place] [address] Aug, [facility] [address] [id number] [address] [place] [address], [place] [address] Aug, [facility] [address] [id number] [address] [place] [address], [place] [address] Jul, [facility] [address] [id number] [address] [place] [address], [place] [address] Jul, [facility] [address] [id number] [address] [place] [address], [place] [address] Jun, [facility] [address] [id number] [address] [place] [address], [place] [address] Jun, [facility] [address] [id number] [address] [place] [address], [place] [address] Jun, [facility] [address] [id number] [address] [place] [address], [place] [address] Apr, [facility] [address] [id number] [address] [place] [address], [place] [address] Apr, [facility] [address] [id number] [address] [place] [address], [place] [address] Mar, [facility] [address] [id number] [address] [place] [address] Mar, [facility] [address] [id number] [address] [place] [address], [place] [address] Mar, [facility] [address] [id number] [address] [place] [address], [place] [address] Mar, [facility] [address] [id number] [address] [place] [address], [place] [address] Feb, [facility] [address] [id number] [address] [place] [address], [place] [address] Feb, [facility] [address] [id number] [address] [place] [address], [place] [address] Feb, [facility] [address] [id number] [address] [place] [address], [place] [address] January, [facility] [address] [id number] [address] [place] [address], [place] [address] January, [facility] [address] [id number] [address] [place] [address], [place] [address] January, [facility] [address] [id number] [address] [place] [address], [place] [address] January, [facility] [address] [id number] [address] [place] [address], [place] [address] Dec, [facility] [address] [id number] [address] [place] [address], [place] [address] Dec, [facility] [address] [id number] [address] [place] [address], [place] [address] Nov, [facility] [address] [id number] [address] [place] [address], [place] [address] Nov, [facility] [address] [id number] [address] [place] [address], [place] [address] 16 Oct, 2011 [facility] [address] [id number] [address] [place] [address], [place] [address] Oct, [facility] [address] [id number] [address] [place] [address], [place] [address] Sep, [facility] [address] [id number] [address] [place] [address], [place] [address] Sep, [facility] [address] [id number] [address] [place] [address], [place] [address] Sep, [facility] [address] [id number] [address] [place] [address], [place] [address] Sep, [facility] [address] [id number] [address] [place] [address], [place] [address] 16 Aug, 2011 [facility] [address] [id number] [address] [place] [address], [place] [address] 16 Aug, 2011 [facility] [address] [id number] [address] [place] [address], [place] [address] Aug, [facility] [address] [id number] [address] [place] [address], [place] [address] Jul, [facility] [address] [id number] [address] [place] [address], [place] [address] Aug, [facility] [address] [id number] [address] [place] [address], [place] [address] Aug, [facility] [address] [id number] [address] [place] [address], [place] [address] Aug, [facility] [address] [id number] [address] [place] [address], [place] [address] Aug, [facility] [address] [id number] [address] [place] [address], [place] [address] Jul, [facility] [address] [id number] [address] [place] [address], [place] [address] Jul, [facility] [address] [id number] [address] [place] [address], [place] [address] Jul, [facility] [address] [id number] [address] [place] [address] Jun, [facility] [address] [id number] [address] [place] [address], [place] [address] Jun, [facility] [address] [id number] [address] [place] [address], [place] [address] Jun, [facility] [address] [id number] [address] [place] [address], [place] [address] Apr, [facility] [address] [id number] [address] [place] [address] Mar, IMMUNIZATIONS No Known Immunizations SOCIAL HISTORY [...]
--- OUTSIDE RECORDS SUMMARY | 2020-03-18 14:55 | XMS REPORT ---
Author Author George WAYNE Organization [facility] Address [address] [place] [address] Care Team Providers Care Senior Research Analyst Name Role Phone REYNA WAYNE Unavailable PROBLEMS Type Condition ICD9-CM Code TIJ17-HN Code Onset Dates Condition S tatus SNOMED Code Problem Hypertension, benign I10 Active 74076905 Problem Other chronic pain G89.29 Active 8 0832739 Problem Lumbago with sciatica, unspecified side M54.40 Active 472244700 Problem Controlled type 2 diabetes m ellitus without complication, without long- term current use of insulin E11.9 Active 394885084 Problem Lumbago with sciatica, right side M54.41 Active 349934509 Problem Adjustment disorder with disturbance of emotion F4 3.29 Active 64424971 Problem MELE (obstructive sleep apnea) G47.33 Active 69682084 Problem Non morbid obesity E66.9 Active 4 32111377 Problem Hammer toe of left foot M20.42 Active 814226662 Problem Mood disorder F39 Active 931931 05 Problem Deformity of left foot M21.962 Active 745854824 Problem Lumbago with sciatica, left side M54.42 Active 719935716 Problem Erectile dysfunction due to diseases classified elsewhere N52.1 Active 273955266 Problem Obstructive sleep apnea syndrome G47.33 Active 50188095 Problem Type 2 diabetes mellitus wit h diabetic neuropathy, without long-term current use of insulin E11.40 Active 45555 006 Problem Essential hypertension I10 Active 99832961 ALLERGIES No Information ENCOUNTERS Encounter Location Date Diagnosis [facility] [address] [id number] [address] [place] [address] January, [facility] [address] [id number] [address] [place] [address] Dec, Acute diffuse otitis externa of left ear H60.312 [facility] [address] [address] Nov, Viral URI J06.9 and Flu-like symptoms R68.89 [place] [address] [place] [address] Nov, Type 2 diabetes mellitus wit h diabetic neuropathy, without long- term current use of insulin E11.40 ; Family history of prostate cancer Z80.42 and Prostate cancer screening Z12.5 [place] [address] [address] Nov, [place] [address] [address] Sep, [place] [address] [address] Aug, [place] [address] [address] Jul, Lumbago with sciatica, unspe cified side M54.40 [place] [address] [address] Jun, Lumbago with sciatica, unspe cified side M54.40 [place] [address] [address] Jun, URI, acute J06.9 [place] [address] [address] May, Lumbago with sciatica, unspe cified side M54.40 [place] [address] [address] May, [address] [address] May, Type 2 diabetes mellitus wit h diabetic neuropathy, without long- term current use of insulin E11.40 and Hammer toe of left foot M20.42 [place] [address] [address] May, [facility] [address] [facility] [facility] [id number] [address] [place] [address] May, [facility] [address] [facility] [address] [facility] [id number] [address] [place] [address] May, [facility] [address] [facility] [address] [facility] [id number] [address] [place] [address] Apr, Lumbago with sciatica, unspe cified side M54.40 [facility] [address] [facility] [address] [facility] [id number] [address] [place] [address] Apr, [facility] [address] [facility] [address] [facility] [id number] [address] [place] [address] Apr, [address] [place] [address] Apr, Hammer toe of left foot M20. 42 ; Chest pain R07.9 ; Preoperative examination Z01.818 and Morbid obesity E66.01 [facility] [address] [facility] [address] [facility] [id number] [address] [place] [address] Apr, Morbid obesity E66.01 ; Bron chitis J40 and High risk medications (not anticoagulants) long-term use Z79.899 [facility] [address] [facility] [address] [facility] [id number] [address] [place] [address] Apr, Lumbago with sciatica, unspe cified side M54.40 [facility] [address] [facility] [address] [facility] [id number] [address] [place] [address] Apr, [facility] [address] [facility] [address] [facility] [id number] [address] [place] [address] Mar, Lumbar neuritis M54.16 and M orbid obesity E66.01 [facility] [address] [facility] [address] [facility] [id number] [address] [place] [address] Mar, [facility] [address] [facility] [address] [facility] [id number] [address] [place] [address] Mar, [facility] [address] [id number] [address] [place] [address] Mar, Lumbago with sciatica, unspe cified side M54.40 [facility] [address] [facility] [address] [facility] [id number] [address] [place] [address] Mar, Morbid obesity E66.01 ; Coug marco R05 ; 2+ pitting edema R60.9 and Controlled type 2 diabetes mellitus without complication, without long-term current use of insulin E11.9 [facility] [address] [id number] [address] [place] [address] Feb, [facility] [address] [id number] [address] [place] [address] Feb, Lumbago with sciatica, unspe cified side M54.40 [place] [address] [facility] [id number] [address] [place] [address] Feb, [facility] [address] [facility] [address] [facility] [id number] [address] [place] [address] Feb, Controlled type 2 diabetes m ellitus without complication, without long-term current use of insulin E11.9 and Morbid obesity E66.01 [facility] [address] [id number] [address] [place] [address] January, Deformity of left foot M21.9 62 [facility] [address] [id number] [address] [place] [address] January, [facility] [address] [id number] [address] [place] [address] January, Lumbago with sciatica, unspe cified side M54.40 [facility] [address] [facility] [address] [facility] [id number] [address] [place] [address] January, [facility] [address] [facility] [address] [facility] [id number] [address] [place] [address] January, Lumbago with sciatica, unspe cified side M54.40 [place] [address] [facility] [id number] [address] [place] [address] January, [facility] [id number] [place] [address] January, Acute right-sided thoracic b ack pain M54.6 [place] [address] [place] [id number] [place] [address] January, Acute right-sided thoracic b ack pain M54.6 [facility] [id number] [place] [address] January, Chest pain, unspecified type R07.9 ; Morbid obesity E66.01 and Scabies B86 [place] [address] [place] [id number] [place] [address] Dec, Lumbago with sciatica, unspe cified side M54.40 [place] [address] [place] [id number] [address] [place] [address] Dec, Toenail fungus B35.1 [place] [address] [place] [id number] [address] [place] [address] Dec, Toenail fungus B35.1 [place] [address] [id number] [place] [address] Dec, Acute right-sided thoracic b ack pain M54.6 [place] [address] [place] [id number] [place] [address] Dec, Lumbago with sciatica, unspe cified side M54.40 [place] [address] [place] [id number] [place] [address] Nov, Hammer toe of left foot M20. 42 ; Deformity of left foot M21.962 and Type 2 diabetes mellitus with diabetic neuropathy, without long-term current use of insulin E11.40 [facility] [address] [facility] [address] [facility] [id number] [address] [place] [address] Nov, Acute right-sided thoracic b ack pain M54.6 ; Morbid obesity E66.01 and Rt flank pain R10.9 [place] [address] [address] Nov, Lumbago with sciatica, unspe cified side M54.40 [place] [address] [address] Oct, Lumbago with sciatica, unspe cified side M54.40 [place] [address] [address] Sep, Lumbago with sciatica, unspe cified side M54.40 [place] [address] [address] Sep, [place] [address] [address] Sep, BMI 40.0-44.9, adult Z68.41 ; Lumbago with sciatica, left side M54.42 ; Lumbago with sciatica, right side M54.41 and Other chronic pain G89.29 [place] [address] [address] Aug, Lumbago with sciatica, unspe cified side M54.40 [place] [address] [address] Aug, Type 2 diabetes mellitus wit h diabetic neuropathy, without long- term current use of insulin E11.40 ; Hammer toe of left foot M20.42 ; Hypertension, benign I10 and Frequent headaches R51 [place] [address] [address] Jul, Lumbago with sciatica, unspe cified side M54.40 [place] [address] [place] [id number] [place] [address] Jul, [place] [address] [place] [id number] [address] [place] [address] Jul, Essential hypertension I10 a nd Controlled type 2 diabetes mellitus without complication, without long-term current use of insulin E11.9 [place] [id number] [facility] [id number] [address] [place] [address] Jul, Essential hypertension I10 ; Controlled type 2 diabetes mellitus without complication, without long-term current use of insulin E11.9 and BMI 40.0-44.9, adult Z68.41 [place] [address] [facility] [id number] [address] [place] [address] Jul, Dysfunction of left eustachi an tube H69.82 [place] [address] [facility] [id number] [address] [place] [address] Jul, Lumbago with sciatica, unspe cified side M54.40 [facility] [id number] [place] [address] [id number] Jun, Dental examination Z01.20 [place] [address] [id number] [place] [address] Jun, Lumbago with sciatica, unspe cified side M54.40 and Encounter for immunization Z23 [place] [address] [place] [id number] [place] [address] Jun, Dysfunction of left eustachi an tube H69.82 [place] [id number] [facility] [id number] [place] [address] [id number] Jun, Dental examination Z01.20 [facility] [address] [facility] [address] [facility] [id number] [address] [place] [address] Jun, Other chronic pain G89.29 [facility] [address] [id number] [address] [place] [address] [id number] Jun, Dental examination Z01.20 [facility] [address] [facility] [facility] [id number] [address] [place] [address] Jun, [place] [address] [place] [id number] [address] [place] [address] Jun, Bronchitis J40 ; Dysfunction of left eustachian tube H69.82 and BMI 45.0-49.9, adult Z68.42 [place] [address] [place] [id number] [place] [address] Jun, Lumbago with sciatica, unspe cified side M54.40 [place] [address] [place] [id number] [place] [address] May, Type 2 diabetes mellitus wit h diabetic neuropathy, without long- term current use of insulin E11.40 and Hypertension, benign I10 [place] [address] [address] May, Lumbago with sciatica, unspe cified side M54.40 [facility] [address] [address] Apr, [place] [address] [address] Apr, Controlled type 2 diabetes m ellitus without complication, without long-term current use of insulin E11.9 ; Insect bite (nonvenomous), right ankle, initial encounter S90.561A ; Local infection of the skin and subcutaneous tissue, unspecified L08.9 ; Acute swimmer''s ear of left side H60.332 and BMI 45.0-49.9, adult Z68.42 [place] [address] [place] [id number] [address] [place] [address] Apr, Lumbago with sciatica, unspe cified side M54.40 [place] [address] [address] Mar, [place] [address] [address] Mar, Lumbago with sciatica, unspe cified side M54.40 [place] [address] [place] [address] 14 Feb, 2018 Lumbago with sciatica, unspe cified side M54.40 [facility] [id number] [place] [address] Feb, BMI 45.0-49.9, adult Z68.42 and Obstructive sleep apnea syndrome G47.33 [facility] [address] [place] [address] January, Lumbar neuritis M54.16 [facility] [address] [id number] [place] [address] January, Lumbago with sciatica, unspe cified side M54.40 [facility] [id number] [place] [address] Dec, Controlled type 2 diabetes m ellitus without complication, without long-term current use of insulin E11.9 ; Erectile dysfunction due to diseases classified elsewhere N52.1 and Mood disorder F39 [facility] [address] [place] [address] Dec, Lumbago with sciatica, unspe cified side M54.40 [facility] [id number] [place] [address] Dec, Obstructive sleep apnea synd luis G47.33 [facility] [id number] [place] [address] Nov, Lumbago with sciatica, unspe cified side M54.40 ; Hypertension, benign I10 and Mood disorder F39 [facility] [address] [facility] [address] [facility] [id number] [address] [place] [address] Nov, Other chronic pain G89.29 [facility] [address] [facility] [address] [facility] [id number] [address] [place] [address] Nov, Lumbago with sciatica, unspe cified side M54.40 [facility] [address] [facility] [id number] [address] [place] [address] [id number] Nov, Dental examination Z01.20 [facility] [address] [id number] [address] [place] [address] Oct, [facility] [address] [id number] [address] [place] [address] Oct, Lumbago with sciatica, unspe cified side M54.40 [facility] [address] [id number] [address] [place] [address] Oct, Lumbago with sciatica, unspe cified side M54.40 [facility] [address] [id number] [address] [place] [address] Oct, [facility] [address] [facility] [facility] [id number] [address] [place] [address] Oct, [facility] [address] [facility] [id number] [address] [place] [address] [id number] Oct, Dental examination Z01.20 [facility] [address] [id number] [address] [place] [address] Oct, [facility] [address] [facility] [address] [facility] [id number] [address] [place] [address] Oct, Pain in right knee M25.561 [facility] [address] [id number] [address] [place] [address] Sep, [facility] [address] [facility] [address] [facility] [id number] [address] [place] [address] Sep, Other chronic pain G89.29 [facility] [address] [id number] [address] [place] [address] Sep, Lumbago with sciatica, unspe cified side M54.40 [facility] [address] [id number] [address] [place] [address] Sep, [facility] [address] [facility] [address] [facility] [id number] [address] [place] [address] Sep, Viral URI J06.9 and BMI 45.0 -49.9, adult Z68.42 [facility] [address] [address] Aug, Foreign body hand S60.559A a nd BMI 45.0-49.9, adult Z68.42 [place] [address] [address] Aug, [place] [address] [address] Aug, Lumbago with sciatica, unspe cified side M54.40 [place] [address] [address] Aug, Vertigo R42 ; Dysfunction of both eustachian tubes H69.83 ; Low back pain M54.5 and Other chronic pain G89.29 [facility] [address] [address] Aug, Dizziness R42 and Acute bila teral otitis media H66.93 [place] [address] [address] Aug, Lumbago with sciatica, unspe cified side M54.40 [facility] [address] [place] [id number] [address] [place] [address] [id number] Jul, Dental examination Z01.20 [place] [address] [place] [id number] [address] [place] [address] Jul, [place] [address] [address] Jul, [place] [address] [address] Jul, Dysfunction of both eustachi an tubes H69.83 [place] [address] [address] Jul, Controlled type 2 diabetes m ellitus without complication, without long-term current use of insulin E11.9 [facility] [address] [facility] [address] [facility] [id number] [address] [place] [address] Jul, Controlled type 2 diabetes m ellitus without complication, without long-term current use of insulin E11.9 [facility] [address] [id number] [address] [place] [address] Jul, Dizziness R42 and BMI 40.0-4 4.9, adult Z68.41 [facility] [address] [id number] [address] [place] [address] Jul, Controlled type 2 diabetes m ellitus without complication, without long-term current use of insulin E11.9 [place] [address] [id number] [address] [place] [address] Jul, Lumbago with sciatica, unspe cified side M54.40 [facility] [address] [id number] [place] [address] [id number] Jul, Dental examination Z01.20 [facility] [address] [id number] [address] [place] [address] Jun, [facility] [address] [id number] [place] [address] [id number] Jun, Dental examination Z01.20 [place] [address] [id number] [address] [place] [address] Jun, Controlled type 2 diabetes m ellitus without complication, without long-term current use of insulin E11.9 [facility] [address] [id number] [address] [place] [address] Jun, Lumbago with sciatica, unspe cified side M54.40 [facility] [address] [id number] [address] [place] [address] [id number] May, Dental examination Z01.20 [facility] [address] [id number] [address] [place] [address] May, Controlled type 2 diabetes m ellitus without complication, without long-term current use of insulin E11.9 [facility] [address] [id number] [address] [place] [address] [id number] 19 May, 2017 Dental examination Z01.20 [facility] [address] [id number] [address] [place] [address] 18 May, 2017 Bronchitis J40 ; Dry mouth R 68.2 ; Non morbid obesity E66.9 and Controlled type 2 diabetes mellitus without complication, without long-term current use of insulin E11.9 [facility] [address] [id number] [address] [place] [id number] 16 May, 2017 Encounter for immunization Z 23 [facility] [address] [id number] [address] [place] [phone] 07 May, 2017 Lumbago with sciatica, unspe cified side M54.40 [facility] [address] [id number] [address] [place] [address] 05 May, 2017 [facility] [address] [id number] [address] [place] [address] [id number] Apr, Dental examination Z01.20 [facility] [address] [id number] [address] [place] [address] Apr, Lumbago with sciatica, unspe cified side M54.40 [facility] [address] [id number] [address] [place] [address] Mar, Lumbago with sciatica, left side M54.42 [facility] [address] [id number] [address] [place] [address] Mar, [facility] [address] [id number] [address] [place] [address] Mar, Lumbar neuritis M54.16 [facility] [address] [id number] [address] [place] [id number] Mar, [facility] [address] [id number] [address] [place] [id number] Mar, Dental examination Z01.20 [place] [address] [address] [facility] [id number] [address] [place] [phone] Mar, MELE (obstructive sleep apnea ) G47.33 ; Neuropathy involving both lower extremities G57.93 and Frequent headaches R51 [place] [address] [id number] [address] [place] [id number] Mar, Lumbago with sciatica, unspe cified side M54.40 [place] [address] [id number] [address] [place] [phone] Feb, Lumbago with sciatica, unspe cified side M54.40 and Controlled type 2 diabetes mellitus without complication, without long-term current use of insulin E11.9 [place] [address] [address] [facility] [id number] [address] [place] [phone] January, Hypertension, benign I10 and Bilateral low back pain with sciatica, sciatica laterality unspecified M54.40 [place] [address] [id number] [address] [place] [phone] January, Hypertension, benign I10 ; L umbago with sciatica, unspecified side M54.40 ; Other chronic pain G89.29 and Controlled type 2 diabetes mellitus without complication, without long-term current use of insulin E11.9 [place] [address] [address] [facility] [id number] [address] [place] [id number] January, Lumbar neuritis M54.16 [place] [address] [id number] [place] [address] January, [place] [address] [address] FORMERLY NAMED [facility] [id number] [address] [place] [address] Dec, Lumbago with sciatica, right side M54.41 and Lumbar neuritis M54.16 [place] [address] [address] FORMERLY NAMED [facility] [id number] [address] [place] [address] Dec, Lumbar neuritis M54.16 [place] [address] [address] [place] [id number] [address] [place] [address] Dec, Lumbar neuritis M54.16 [place] [address] [address] FORMERLY NAMED [facility] [id number] [address] [place] [address] 16 Nov, 2016 Lumbar neuritis M54.16 ; Lum bago with sciatica, right side M54.41 ; Controlled type 2 diabetes mellitus without complication, without long-term current use of insulin E11.9 and Rash and nonspecific skin eruption R21 [place] [address] [address] [place] [id number] [address] [place] [address] Nov, Lumbar neuritis M54.16 and P alexi romany L23.7 [place] [address] [address] [place] [id number] [place] [address] 16 Oct, 2016 Lumbar neuritis M54.16 ; Cou ghing R05 and Mood disorder F39 [place] [address] [address] [place] [id number] [address] [place] [address] Sep, Lumbago with sciatica, right side M54.41 [place] [address] [address] [place] [id number] [place] [address] Sep, Adjustment disorder with dis turbance of emotion F43.29 and Pain management R52 [place] [address] [address] [place] [id number] [address] [place] [address] Sep, [place] [address] [place] [id number] [address] [place] [address] Sep, [place] [address] [place] [id number] [address] [place] [address] Sep, Controlled type 2 diabetes evens reyna without complication, without long-term current use of insulin E11.9 and Lumbago with sciatica, unspecified side M54.40 [place] [address] [place] [id number] [address] [place] [address] Aug, Controlled type 2 diabetes evens reyna without complication, without long-term current use of insulin E11.9 ; Pain in right knee M25.561 ; Pain in left knee M25.562 ; Other chronic pain G89.29 ; Lumbago with sciatica, right side M54.41 ; Neck pain M54.2 and Encounter for immunization Z23 [facility] [address] [id number] [address] [place] [address] Jul, [facility] [address] [id number] [address] [place] [address] Jul, Controlled type 2 diabetes evens reyna without complication, without long-term current use of insulin E11.9 [facility] [address] [id number] [address] [place] [address] Jul, [facility] [address] [id number] [address] [place] [address] Jul, [facility] [address] [id number] [address] [place] [address] Jul, Lumbago with sciatica, left side M54.42 ; Lumbago with sciatica, right side M54.41 and Other chronic pain G89.29 [facility] [address] [id number] [address] [place] [address] Jul, [facility] [address] [id number] [address] [place] [address] Jul, [facility] [address] [id number] [address] [place] [address] Jun, [facility] [address] [id number] [address] [place] [address] Jun, Lumbago with sciatica, right side M54.41 and Other chronic pain G89.29 [facility] [address] [id number] [address] [place] [address] Jun, Cervicalgia M54.2 ; Lumbago with sciatica, unspecified side M54.40 and Other chronic pain G89.29 [facility] [address] [id number] [address] [place] [address] 15 May, 2016 Pain in right knee M25.561 ; Pain in left knee M25.562 and Other chronic pain G89.29 [facility] [address] [id number] [address] [place] [address] 14 May, 2016 [facility] [address] [id number] [address] [place] [address] Apr, Other chronic pain G89.29 an d Pain in right knee M25.561 [facility] [address] [id number] [address] [place] [address] Apr, Pain in right knee M25.561 [facility] [address] [id number] [address] [place] [address] Mar, [facility] [address] [id number] [address] [place] [address] Mar, Mood disorder F39 and Contro lled type 2 diabetes mellitus without complication, without long-term current use of insulin E11.9 [facility] [address] [id number] [address] [place] [address] Mar, Pain in right knee M25.561 ; Pain in left knee M25.562 ; Other chronic pain G89.29 ; Obstructive sleep apnea syndrome G47.33 ; Mood disorder F39 and Controlled type 2 diabetes mellitus without complication, without long- term current use of insulin E11.9 [facility] [address] [id number] [address] [place] [address] Mar, [facility] [address] [id number] [address] [place] [id number] Feb, Dental examination Z01.20 [facility] [address] [id number] [address] [place] [address] Feb, [facility] [address] [id number] [address] [place] [address] Feb, Osteoarthritis of right knee , unspecified osteoarthritis type M17.9 [facility] [address] [id number] [address] [place] [address] January, [facility] [address] [id number] [address] [place] [id number] January, Dental examination Z01.20 [facility] [address] [id number] [address] [place] [address] January, [facility] [address] [id number] [address] [place] [id number] January, Dental examination Z01.20 an d Caries K02.9 [facility] [address] [id number] [address] [place] [address] Dec, Encounter for other preproce dural examination Z01.818 [facility] [address] [id number] [address] [place] [address] Dec, [facility] [address] [id number] [address] [place] [address] Dec, Knee pain M25.569 [facility] [address] [id number] [address] [place] [address] 15 Dec, 2015 Pain in right knee M25.561 [facility] [address] [id number] [address] [place] [address] 14 Dec, 2015 [facility] [address] [id number] [address] [place] [address] Dec, [facility] [address] [id number] [address] [place] [address] Dec, Encounter for immunization Z 23 [facility] [address] [id number] [address] [place] [address] Dec, [facility] [address] [id number] [address] [place] [address] Dec, [facility] [address] [id number] [address] [place] [address] Nov, [facility] [address] [id number] [address] [place] [address] Nov, Hypertension, benign I10 ; C ervicalgia M54.2 ; Pain in right knee M25.561 and Pain in left knee M25.562 [id number] [facility] NAMED [facility] [id number] [address] [place] [address] Oct, [facility] [address] [facility]MER[facility]AM[address] [facility] [id number] [address] [place] [address] Oct, [facility] [address] [place] [id number] [place] [address] Oct, Osteoarthritis of both knees M17.0 [place] [address] [place] [id number] [place] [address] Oct, [place] [address] [place] [id number] [place] [address] Oct, Low back pain M54.5 [place] [address] [place] [id number] [place] [address] Oct, Low back pain M54.5 ; Sciati ca, unspecified side M54.30 ; Pain in right knee M25.561 ; Pain in left knee M25.562 ; Pain in right shoulder M25.511 and Pain in left shoulder M25.512 [place] [address] [address] [place] [id number] [address] [place] [address] Oct, [place] [address] [place] [id number] [address] [place] [address] Sep, Pain in right hip M25.551 [place] [address] [place] [id number] [address] [place] [address] Sep, Acute upper respiratory infe ction, unspecified J06.9 [place] [address] [place] [id number] [address] [place] [address] Aug, Acute upper respiratory infe ction, unspecified J06.9 and Other viral agents as the cause of diseases classified elsewhere B97.89 [facility] [address] [id number] [address] [place] [address] Jul, Arthritis M19.90 [facility] [address] [id number] [address] [place] [address] Jun, Arthritis M19.90 ; Pain in r ight hip M25.551 ; Pain in left hip M25.552 ; Bilateral low back pain with sciatica, sciatica laterality unspecified M54.40 ; Neck pain M54.2 ; Upper back pain M54.9 and Knee pain, unspecified laterality M25.569 [facility] [address] [id number] [address] [place] [address] May, Osteoarthritis of both knees 715.96 [facility] [address] [id number] [address] [place] [address] May, Rash 782.1 [place] [address] [address] FORMER[facility] NAMED [facility] [id number] [address] [place] [address] Apr, Lumbar strain 847.2 [facility] [address] [id number] [address] [place] [address] Apr, Rash 782.1 [facility] [address] FORMERLY NAMED [facility] [id number] [address] [place] [address] Mar, Rash 782.1 [facility] [address] FORMER[facility] NAMED [facility] [id number] [address] [place] [address] Feb, Rash 782.1 ; Hemorrhoids 455 .6 and Constipation 564.00 [facility] [address] [id number] [address] [place] [address] Feb, Osteoarthritis of both knees 715.96 [facility] [address] [id number] [address] [place] [address] January, [facility] [address] FORMER[facility] NAMED [facility] [id number] [address] [place] [address] Dec, [facility] [address] [id number] [address] [place] [address] 14 Dec, 2014 [facility] [address] [id number] [address] [place] [address], [place] [address] 13 Dec, 2014 [facility] [address] [id number] [address] [place] [address], [place] [address] 18 Nov, 2014 [facility] [address] [id number] [address] [place] [address], [place] [address] 18 Nov, 2014 [facility] [address] [id number] [address] [place] [address], [place] [address] 18 Nov, 2014 [facility] [address] [id number] [address] [place] [address], [place] [address] 18 Nov, 2014 [facility] [address] [id number] [address] [place] [address], [place] [address] Nov, [facility] [address] [id number] [address] [place] [address], [place] [address] Nov, [facility] [address] [id number] [address] [place] [address], [place] [address] Oct, [facility] [address] [id number] [address] [place] [address], [place] [address] Oct, [facility] [address] [id number] [address] [place] [address], [place] [address] Oct, [facility] [address] [id number] [address] [place] [address], [place] [address] Oct, 2014 [facility] [address] [id number] [address] [place] [address], [place] [address] Oct, 2014 [facility] [address] [id number] [address] [place] [address], [place] [address] Oct, 2014 [facility] [address] [id number] [address] [place] [address] Oct, 2014 [facility] [address] [id number] [address] [place] [address] Oct, [facility] [address] [id number] [address] [place] [address], [place] [address] Oct, 2014 [facility] [address] [id number] [address] [place] [address], [place] [address] Oct, [facility] [address] [id number] [address] [place] [address], [place] [address] Oct, [facility] [address] [id number] [address] [place] [address], [place] [address] Sep, [facility] [address] [id number] [address] [place] [address], [place] [address] Sep, [facility] [address] [id number] [address] [place] [address], [place] [address] Sep, [facility] [address] [id number] [address] [place] [address], [place] [address] Sep, [facility] [address] [id number] [address] [place] [address], [place] [address] Sep, [facility] [address] [id number] [address] [place] [address], [place] [address] Sep, [facility] [address] [id number] [address] [place] [address], [place] [address] Aug, [facility] [address] [id number] [address] [place] [address], [place] [address] Aug, [facility] [address] [id number] [address] [place] [address], [place] [address] Aug, [facility] [address] [id number] [address] [place] [address], [place] [address] Aug, [facility] [address] [id number] [address] [place] [address], [place] [address] Aug, [facility] [address] [id number] [address] [place] [address], [place] [address] Aug, [facility] [address] [id number] [address] [place] [address], [place] [address] 05 Aug, 2014 [facility] [address] [id number] [address] [place] [address], [place] [address] Aug, [facility] [address] [id number] [address] [place] [address], [place] [address] Aug, [facility] [address] [id number] [address] [place] [address], [place] [address] Aug, [facility] [address] [id number] [address] [place] [address], [place] [address] Jul, [facility] [address] [id number] [address] [place] [address], [place] [address] Jul, [facility] [address] [id number] [address] [place] [address], [place] [address] Jul, [facility] [address] [id number] [address] [place] [address], [place] [address] Jul, [facility] [address] [id number] [address] [place] [address], [place] [address] Jun, [facility] [address] [id number] [address] [place] [address], [place] [address] Jun, [facility] [address] [id number] [address] [place] [address], [place] [address] Jun, [facility] [address] [id number] [address] [place] [address], [place] [address] Jun, [facility] [address] [id number] [address] [place] [address], [place] [address] Jun, [facility] [address] [id number] [address] [place] [address], [place] [address] Jun, [facility] [address] [id number] [address] [place] [address], [place] [address] Jun, [facility] [address] [id number] [address] [place] [address] Jun, [facility] [address] [id number] [facility] [place] [address] 24 May, 2013 [facility] [address] [id number] [address] [place] [address], [place] [address] 24 May, 2014 [facility] [address] [id number] [address] [place] [address], [place] [address] 19 May, 2014 [facility] [address] [id number] [address] [place] [address], [place] [address] 19 May, 2014 [facility] [address] [id number] [address] [place] [address], [place] [address] 15 May, 2014 [facility] [address] [id number] [address] [place] [address], [place] [address] 15 May, 2014 [facility] [address] [id number] [address] [place] [address], [place] [address] 15 May, 2014 [facility] [address] [id number] [address] [place] [address], [place] [address] May, [facility] [address] [id number] [address] [place] [address], [place] [address] Apr, [facility] [address] [id number] [address] [place] [address], [place] [address] Apr, [facility] [address] [id number] [address] [place] [address], [place] [address] Apr, [facility] [address] [id number] [address] [place] [address], [place] [address] Apr, [facility] [address] [id number] [address] [place] [address], [place] [address] Apr, [facility] [address] [id number] [address] [place] [address], [place] [address] Apr, [facility] [address] [id number] [address] [place] [address], [place] [address] Apr, [facility] [address] [id number] [address] [place] [address], [place] [address] Apr, [facility] [address] [id number] [address] [place] [address], [place] [address] Apr, [facility] [address] [id number] [address] [place] [address], [place] [address] Apr, [facility] [address] [id number] [address] [place] [address], [place] [address] Apr, [facility] [address] [id number] [address] [place] [address], [place] [address] Apr, [facility] [address] [id number] [address] [place] [address], [place] [address] Mar, [facility] [address] [id number] [address] [place] [address], [place] [address] Mar, [facility] [address] [id number] [address] [place] [address], [place] [address] Mar, [facility] [address] [id number] [address] [place] [address], [place] [address] Mar, [facility] [address] [id number] [address] [place] [address], [place] [address] Mar, [facility] [address] [id number] [address] [place] [address], [place] [address] Mar, [facility] [address] [id number] [address] [place] [address], [place] [address] Feb, [facility] [address] [id number] [address] [place] [address], [place] [address] Feb, [facility] [address] [id number] [address] [place] [address], [place] [address] Feb, [facility] [address] [id number] [address] [place] [address], [place] [address] Feb, [facility] [address] [id number] [address] [place] [address], [place] [address] Feb, [facility] [address] [id number] [facility] [place] [address] 16 Feb, 2014 [facility] [address] [id number] [address] [place] [address], [place] [address] Feb, [facility] [address] [id number] [address] [place] [address], [place] [address] Feb, [facility] [address] [id number] [address] [place] [address], [place] [address] Feb, [facility] [address] [id number] [address] [place] [address], [place] [address] Feb, [facility] [address] [id number] [address] [place] [address], [place] [address] Feb, [facility] [address] [id number] [address] [place] [address], [place] [address] Feb, [facility] [address] [id number] [address] [place] [address], [place] [address] Feb, [facility] [address] [id number] [address] [place] [address], [place] [address] Feb, [facility] [address] [id number] [address] [place] [address], [place] [address] January, [facility] [address] [id number] [address] [place] [address], [place] [address] January, [facility] [address] [id number] [address] [place] [address], [place] [address] January, [facility] [address] [id number] [address] [place] [address], [place] [address] January, [facility] [address] [id number] [address] [place] [address], [place] [address] January, [facility] [address] [id number] [address] [place] [address], [place] [address] January, [facility] [address] [id number] [address] [place] [address], [place] [address] Dec, [facility] [address] [id number] [facility] [place] [address] Dec, [facility] [address] [id number] [address] [place] [address], [place] [address] Dec, [facility] [address] [id number] [address] [place] [address], [place] [address] Dec, [facility] [address] [id number] [address] [place] [address], [place] [address] Dec, [facility] [address] [id number] [address] [place] [address], [place] [address] Dec, [facility] [address] [id number] [address] [place] [address], [place] [address] Dec, [facility] [address] [id number] [address] [place] [address], [place] [address] Dec, [facility] [address] [id number] [address] [place] [address], [place] [address] Nov, [facility] [address] [id number] [address] [place] [address], [place] [address] Nov, [facility] [address] [id number] [address] [place] [address], [place] [address] Nov, [facility] [address] [id number] [address] [place] [address], [place] [address] Nov, [facility] [address] [id number] [address] [place] [address], [place] [address] Nov, [facility] [address] [id number] [address] [place] [address], [place] [address] Nov, [facility] [address] [id number] [address] [place] [address], [place] [address] Nov, [facility] [address] [id number] [address] [place] [address], [place] [address] Nov, [facility] [address] [id number] [address] [place] [address], [place] [address] Oct, [facility] [address] [id number] [address] [place] [address], [place] [address] Oct, [facility] [address] [id number] [address] [place] [address], [place] [address] Oct, [facility] [address] [id number] [address] [place] [address], [place] [address] Oct, [facility] [address] [id number] [address] [place] [address], [place] [address] Oct, [facility] [address] [id number] [address] [place] [address], [place] [address] Oct, [facility] [address] [id number] [address] [place] [address], [place] [address] Oct, [facility] [address] [id number] [address] [place] [address], [place] [address] Oct, [facility] [address] [id number] [address] [place] [address], [place] [address] Oct, [facility] [address] [id number] [address] [place] [address], [place] [address] Oct, [facility] [address] [id number] [address] [place] [address], [place] [address] Sep, [facility] [address] [id number] [address] [place] [address], [place] [address] Sep, [facility] [address] [id number] [address] [place] [address], [place] [address] Sep, [facility] [address] [id number] [address] [place] [address], [place] [address] Sep, [facility] [address] [id number] [address] [place] [address], [place] [address] Sep, [facility] [address] [id number] [address] [place] [address], [place] [address] Sep, [facility] [address] [id number] [address] [place] [address], [place] [address] Aug, [facility] [address] [id number] [address] [place] [address], [place] [address] Aug, [facility] [address] [id number] [address] [place] [address], [place] [address] Aug, [facility] [address] [id number] [address] [place] [address], [place] [address] Aug, [facility] [address] [id number] [address] [place] [address], [place] [address] Aug, [facility] [address] [id number] [address] [place] [address], [place] [address] Aug, [facility] [address] [id number] [address] [place] [address], [place] [address] Aug, [facility] [address] [id number] [address] [place] [address], [place] [address] Aug, [facility] [address] [id number] [address] [place] [address], [place] [address] Jul, [facility] [address] [id number] [address] [place] [address], [place] [address] Jul, [facility] [address] [id number] [address] [place] [address], [place] [address] Jul, [facility] [address] [id number] [address] [place] [address], [place] [address] Jul, [facility] [address] [id number] [address] [place] [address], [place] [address] Jul, [facility] [address] [id number] [address] [place] [address], [place] [address] Jul, [facility] [address] [id number] [address] [place] [address], [place] [address] Jun, [facility] [address] [id number] [address] [place] [address] [place] [address] Jun, [facility] [address] [id number] [address] [place] [address], [place] [address] Jun, [facility] [address] [id number] [address] [place] [address], [place] [address] May, [facility] [address] [id number] [address] [place] [address], [place] [address] May, [facility] [address] [id number] [address] [place] [address], [place] [address] May, [facility] [address] [id number] [address] [place] [address], [place] [address] Apr, [facility] [address] [id number] [address] [place] [address], [place] [address] Apr, [facility] [address] [id number] [address] [place] [address], [place] [address] Apr, [facility] [address] [id number] [address] [place] [address], [place] [address] Apr, [facility] [address] [id number] [address] [place] [address], [place] [address] Mar, [facility] [address] [id number] [address] [place] [address], [place] [address] Mar, [facility] [address] [id number] [address] [place] [address], [place] [address] Mar, [facility] [address] [id number] [address] [place] [address], [place] [address] Mar, [facility] [address] [id number] [address] [place] [address], [place] [address] Feb, [facility] [address] [id number] [address] [place] [address], [place] [address] Feb, [facility] [address] [id number] [address] [place] [address], [place] [address] Feb, [facility] [address] [id number] [address] [place] [address], [place] [address] Feb, [facility] [address] [id number] [address] [place] [address], [place] [address] January, [facility] [address] [id number] [address] [place] [address], [place] [address] January, [facility] [address] [id number] [address] [place] [address], [place] [address] January, [facility] [address] [id number] [address] [place] [address], [place] [address] Nov, [facility] [address] [id number] [address] [place] [address], [place] [address] Nov, [facility] [address] [id number] [address] [place] [address], [place] [address] Oct, [facility] [address] [id number] [address] [place] [address], [place] [address] Oct, [facility] [address] [id number] [address] [place] [address], [place] [address] Oct, [facility] [address] [id number] [address] [place] [address], [place] [address] Oct, [facility] [address] [id number] [address] [place] [address], [place] [address] Sep, [facility] [address] [id number] [address] [place] [address], [place] [address] Sep, [facility] [address] [id number] [address] [place] [address], [place] [address] Sep, [facility] [address] [id number] [address] [place] [address], [place] [address] Aug, [facility] [address] [id number] [address] [place] [address], [place] [address] Aug, [facility] [address] [id number] [address] [place] [address], [place] [address] Aug, [facility] [address] [id number] [address] [place] [address], [place] [address] Aug, [facility] [address] [id number] [address] [place] [address], [place] [address] Aug, [facility] [address] [id number] [address] [place] [address], [place] [address] Aug, [facility] [address] [id number] [address] [place] [address], [place] [address] Jul, [facility] [address] [id number] [address] [place] [address], [place] [address] Jul, [facility] [address] [id number] [address] [place] [address], [place] [address] Jun, [facility] [address] [id number] [address] [place] [address], [place] [address] Jun, [facility] [address] [id number] [address] [place] [address], [place] [address] Jun, [facility] [address] [id number] [address] [place] [address], [place] [address] Apr, [facility] [address] [id number] [address] [place] [address], [place] [address] Apr, [facility] [address] [id number] [address] [place] [address], [place] [address] Mar, [facility] [address] [id number] [address] [place] [address] Mar, [facility] [address] [id number] [address] [place] [address], [place] [address] Mar, [facility] [address] [id number] [address] [place] [address], [place] [address] Mar, [facility] [address] [id number] [address] [place] [address], [place] [address] Feb, [facility] [address] [id number] [address] [place] [address], [place] [address] Feb, [facility] [address] [id number] [address] [place] [address], [place] [address] Feb, [facility] [address] [id number] [address] [place] [address], [place] [address] January, [facility] [address] [id number] [address] [place] [address], [place] [address] January, [facility] [address] [id number] [address] [place] [address], [place] [address] January, [facility] [address] [id number] [address] [place] [address], [place] [address] January, [facility] [address] [id number] [address] [place] [address], [place] [address] Dec, [facility] [address] [id number] [address] [place] [address], [place] [address] Dec, [facility] [address] [id number] [address] [place] [address], [place] [address] Nov, [facility] [address] [id number] [address] [place] [address], [place] [address] Nov, [facility] [address] [id number] [address] [place] [address], [place] [address] 16 Oct, 2011 [facility] [address] [id number] [address] [place] [address], [place] [address] Oct, [facility] [address] [id number] [address] [place] [address], [place] [address] Sep, [facility] [address] [id number] [address] [place] [address], [place] [address] Sep, [facility] [address] [id number] [address] [place] [address], [place] [address] Sep, [facility] [address] [id number] [address] [place] [address], [place] [address] Sep, [facility] [address] [id number] [address] [place] [address], [place] [address] 16 Aug, 2011 [facility] [address] [id number] [address] [place] [address], [place] [address] 16 Aug, 2011 [facility] [address] [id number] [address] [place] [address], [place] [address] Aug, [facility] [address] [id number] [address] [place] [address], [place] [address] Jul, [facility] [address] [id number] [address] [place] [address], [place] [address] Aug, [facility] [address] [id number] [address] [place] [address], [place] [address] Aug, [facility] [address] [id number] [address] [place] [address], [place] [address] Aug, [facility] [address] [id number] [address] [place] [address], [place] [address] Aug, [facility] [address] [id number] [address] [place] [address], [place] [address] Jul, [facility] [address] [id number] [address] [place] [address], [place] [address] Jul, [facility] [address] [id number] [address] [place] [address], [place] [address] Jul, [facility] [address] [id number] [address] [place] [address] Jun, [facility] [address] [id number] [address] [place] [address], [place] [address] Jun, [facility] [address] [id number] [address] [place] [address], [place] [address] Jun, [facility] [address] [id number] [address] [place] [address], [place] [address] Apr, [facility] [address] [id number] [address] [place] [address] Mar, IMMUNIZATIONS No Known Immunizations SOCIAL HISTORY [...]
--- OUTSIDE RECORDS SUMMARY | 2020-03-18 14:56 | XMS REPORT ---
Author Author George Marx Doctor Organization [facility] Address Unknown Phone Unavailable Care Team Providers [employer] Clerk Name Role Phone Migration, Doctor Unavailable Unavailable PROBLEMS Type Condition ICD9-CM Code [id number] Code Onset Dates Condition S tatus SNOMED Code Problem Hypertension, benign I10 Active 31853753 Problem Other chronic pain G89.29 Active 8 0018762 Problem Lumbago with sciatica, unspecified side M54.40 Active 737118758 Problem Controlled type 2 diabetes m ellitus without complication, without long- term current use of insulin E11.9 Active 072819958 Problem Lumbago with sciatica, right side M54.41 Active 897496816 Problem Adjustment disorder with disturbance of emotion F4 3.29 Active 40311467 Problem MELE (obstructive sleep apnea) G47.33 Active 20444487 Problem Non morbid obesity E66.9 Active 4 46630235 Problem Hammer toe of left foot M20.42 Active 649782375 Problem Mood disorder F39 Active 560719 05 Problem Deformity of left foot M21.962 Active 729835821 Problem Lumbago with sciatica, left side M54.42 Active 837869347 Problem Erectile dysfunction due to diseases classified elsewhere N52.1 Active 079726855 Problem Obstructive sleep apnea syndrome G47.33 Active 94493356 Problem Type 2 diabetes mellitus wit h diabetic neuropathy, without long-term current use of insulin E11.40 Active 08303 006 Problem Essential hypertension I10 Active 91048102 ALLERGIES No Information ENCOUNTERS Encounter Location Date Diagnosis [facility] [address] [facility] [id number] [address] [place] [phone] January, [facility] [address] [facility] [id number] [address] [place] [phone] Dec, Acute diffuse otitis externa of left ear H60.312 [facility] [address] [facility] [id number] [address] [place] [phone] Nov, Viral URI J06.9 and Flu-like symptoms R68.89 [place] [id number] [place] [id number] [address] [place] [phone] 09 Nov, 2019 Type 2 diabetes mellitus wit h diabetic neuropathy, without long- term current use of insulin E11.40 ; Family history of prostate cancer Z80.42 and Prostate cancer screening Z12.5 [place] [address] [place] [id number] [address] [place] [phone] Nov, [place] [address] [place] [id number] [address] [place] [phone] Sep, [place] [address] [place] [id number] [address] [place] [phone] Aug, [place] [address] [place] [id number] [address] [place] [phone] Jul, Lumbago with sciatica, unspe cified side M54.40 [place] [address] [place] [id number] [address] [place] [phone] Jun, Lumbago with sciatica, unspe cified side M54.40 [place] [address] [place] [id number] [address] [place] [phone] Jun, URI, acute J06.9 [place] [address] [place] [id number] [address] [place] [phone] 26 May, 2019 Lumbago with sciatica, unspe cified side M54.40 [place] [address] [place] [id number] [address] [place] [phone] May, [place] [address] [place] [id number] [address] [place] [phone] 12 May, 2019 Type 2 diabetes mellitus wit h diabetic neuropathy, without long- term current use of insulin E11.40 and Hammer toe of left foot M20.42 [place] [address] [place] [id number] [address] [place] [phone] May, [place] [address] [place] [id number] [address] [place] [phone] May, [facility] [address] [facility] [id number] [address] [place] [phone] May, [facility] [address] [place] [id number] [address] [place] [phone] Apr, Lumbago with sciatica, unspe cified side M54.40 [facility] [address] [facility] [id number] [address] [place] [phone] Apr, [facility] [address] [place] [id number] [address] [place] [phone] Apr, [id number] [place] [phone] Apr, Hammer toe of left foot M20. 42 ; Chest pain R07.9 ; Preoperative examination Z01.818 and Morbid obesity E66.01 [facility] [address] [place] [id number] [address] [place] [phone] Apr, Morbid obesity E66.01 ; Bron chitis J40 and High risk medications (not anticoagulants) long-term use Z79.899 [facility] [address] [place] [id number] [address] [place] [phone] Apr, Lumbago with sciatica, unspe cified side M54.40 [facility] [address] [place] [id number] [address] [place] [address] Apr, [facility] [address] [place] [id number] [address] [place] [address] Mar, Lumbar neuritis M54.16 and M orbid obesity E66.01 [facility] [address] [place] [id number] [address] [place] [phone] Mar, [facility] [address] [place] [id number] [address] [place] [phone] Mar, [facility] [address] [place] [id number] [address] [place] [address] Mar, Lumbago with sciatica, unspe cified side M54.40 [facility] [address] [id number] [address] [place] [phone] Mar, Morbid obesity E66.01 ; Gabe lara R05 ; 2+ pitting edema R60.9 and Controlled type 2 diabetes mellitus without complication, without long-term current use of insulin E11.9 [facility] [address] [id number] [address] [place] [phone] Feb, [facility] [address] [id number] [address] [place] [phone] Feb, Lumbago with sciatica, unspe cified side M54.40 [facility] [address] [id number] [address] [place] [phone] Feb, [facility] [address] [id number] [address] [place] [phone] Feb, Controlled type 2 diabetes m ellitus without complication, without long-term current use of insulin E11.9 and Morbid obesity E66.01 [facility] [address] [id number] [address] [place] [address] January, Deformity of left foot M21.9 62 [facility] [address] [id number] [address] [place] [phone] January, [facility] [address] [id number] [address] [place] [phone] January, Lumbago with sciatica, unspe cified side M54.40 [facility] [address] [id number] [address] [place] [phone] January, [facility] [address] [facility] [id number] [address] [place] [phone] January, Lumbago with sciatica, unspe cified side M54.40 [facility] [address] [id number] [address] [place] [phone] January, [facility] [address] [facility] [id number] [address] [place] [phone] January, Acute right-sided thoracic b ack pain M54.6 [facility] [address] [facility] [id number] [address] [place] [phone] January, Acute right-sided thoracic b ack pain M54.6 [facility] [address] [facility] [id number] [address] [place] [phone] January, Chest pain, unspecified type R07.9 ; Morbid obesity E66.01 and Scabies B86 [place] [address] [facility] [id number] [address] [place] [phone] Dec, Lumbago with sciatica, unspe cified side M54.40 [place] [address] [place] [id number] [address] [place] [address] Dec, Toenail fungus B35.1 [facility] [address] [facility] [id number] [address] [place] [phone] Dec, Toenail fungus B35.1 [place] [address] [facility] [id number] [address] [place] [phone] Dec, Acute right-sided thoracic b ack pain M54.6 [place] [address] [facility] [id number] [address] [place] [phone] Dec, Lumbago with sciatica, unspe cified side M54.40 [facility] [address] [facility] [id number] [address] [place] [phone] Nov, Hammer toe of left foot M20. 42 ; Deformity of left foot M21.962 and Type 2 diabetes mellitus with diabetic neuropathy, without long-term current use of insulin E11.40 [facility] [address] [facility] [id number] [address] [place] [phone] Nov, Acute right-sided thoracic b ack pain M54.6 ; Morbid obesity E66.01 and Rt flank pain R10.9 [facility] [address] [place] [id number] [address] [place] [phone] Nov, Lumbago with sciatica, unspe cified side M54.40 [facility] [address] [place] [id number] [address] [place] [phone] Oct, Lumbago with sciatica, unspe cified side M54.40 [place] [address] [place] [id number] [address] [place] [phone] Sep, Lumbago with sciatica, unspe cified side M54.40 [place] [address] [place] [id number] [address] [place] [phone] Sep, [place] [address] [place] [id number] [place] [address] Sep, BMI 40.0-44.9, adult Z68.41 ; Lumbago with sciatica, left side M54.42 ; Lumbago with sciatica, right side M54.41 and Other chronic pain G89.29 [place] [address] [place] [id number] [address] [place] [address] Aug, Lumbago with sciatica, unspe cified side M54.40 [place] [address] [place] [id number] [address] [place] [phone] Aug, Type 2 diabetes mellitus wit h diabetic neuropathy, without long- term current use of insulin E11.40 ; Hammer toe of left foot M20.42 ; Hypertension, benign I10 and Frequent headaches R51 [place] [address] [place] [id number] [address] [place] [phone] Jul, Lumbago with sciatica, unspe cified side M54.40 [facility] [address] [place] [id number] [address] [place] [phone] Jul, [place] [address] [place] [id number] [place] [phone] Jul, Essential hypertension I10 a nd Controlled type 2 diabetes mellitus without complication, without long-term current use of insulin E11.9 [place] [address] [facility] [id number] [address] [place] [phone] Jul, Essential hypertension I10 ; Controlled type 2 diabetes mellitus without complication, without long-term current use of insulin E11.9 and BMI 40.0-44.9, adult Z68.41 [place] [address] [facility] [id number] [address] [place] [phone] Jul, Dysfunction of left eustachi an tube H69.82 [place] [address] [facility] [id number] [address] [place] [phone] Jul, Lumbago with sciatica, unspe cified side M54.40 [facility] [address] [place] [id number] [place] [address] [id number] Jun, Dental examination Z01.20 [place] [address] [facility] [id number] [address] [place] [phone] Jun, Lumbago with sciatica, unspe cified side M54.40 and Encounter for immunization Z23 [place] [address] [place] [id number] [place] [phone] Jun, Dysfunction of left eustachi an tube H69.82 [facility] [address] [id number] [id number] Jun, Dental examination Z01.20 [facility] [address] [facility] [id number] [address] [place] [phone] Jun, Other chronic pain G89.29 [facility] [address] [id number] [address] [place] [address] [id number] Jun, Dental examination Z01.20 [facility] [address] [facility] [id number] [address] [place] [phone] Jun, [place] [address] [facility] [id number] [address] [place] [address] Jun, Bronchitis J40 ; Dysfunction of left eustachian tube H69.82 and BMI 45.0-49.9, adult Z68.42 [place] [address] [place] [id number] [place] [phone] Jun, Lumbago with sciatica, unspe cified side M54.40 [place] [address] [place] [id number] [address] [place] [phone] May, Type 2 diabetes mellitus wit h diabetic neuropathy, without long- term current use of insulin E11.40 and Hypertension, benign I10 [place] [address] [place] [id number] [address] [place] [phone] May, Lumbago with sciatica, unspe cified side M54.40 [facility] [address] [place] [id number] [address] [place] [phone] Apr, [facility] [address] [place] [id number] [place] [address] Apr, Controlled type 2 diabetes m ellitus without complication, without long-term current use of insulin E11.9 ; Insect bite (nonvenomous), right ankle, initial encounter S90.561A ; Local infection of the skin and subcutaneous tissue, unspecified L08.9 ; Acute swimmer''s ear of left side H60.332 and BMI 45.0-49.9, adult Z68.42 [place] [address] [place] [id number] [address] [place] [address] Apr, Lumbago with sciatica, unspe cified side M54.40 [place] [address] [place] [id number] [address] [place] [address] Mar, [place] [address] [place] [id number] [address] [place] [address] Mar, Lumbago with sciatica, unspe cified side M54.40 [place] [address] [place] [id number] [address] [place] [address] Feb, Lumbago with sciatica, unspe cified side M54.40 [place] [address] [place] [id number] [address] [place] [address] Feb, BMI 45.0-49.9, adult Z68.42 and Obstructive sleep apnea syndrome G47.33 [place] [address] [place] [id number] [address] [place] [address] January, Lumbar neuritis M54.16 [place] [address] [address] January, Lumbago with sciatica, unspe cified side M54.40 [place] [address] [address] Dec, Controlled type 2 diabetes m taraitus without complication, without long-term current use of insulin E11.9 ; Erectile dysfunction due to diseases classified elsewhere N52.1 and Mood disorder F39 [place] [address] [place] [id number] [address] [place] [address] Dec, Lumbago with sciatica, unspe cified side M54.40 [place] [address] [place] [id number] [address] [place] [address] Dec, Obstructive sleep apnea synd luis G47.33 [place] [address] [place] [id number] [address] [place] [phone] Nov, Lumbago with sciatica, unspe cified side M54.40 ; Hypertension, benign I10 and Mood disorder F39 [place] [address] [place] [id number] [address] [place] [address] Nov, Other chronic pain G89.29 [place] [address] [place] [id number] [address] [place] [address] Nov, Lumbago with sciatica, unspe cified side M54.40 [facility] [address] [place] [id number] [address] [place] [address] [id number] Nov, Dental examination Z01.20 [place] [address] [id number] [address] [place] [phone] Oct, [facility] [address] [facility] [id number] [address] [place] [address] Oct, Lumbago with sciatica, unspe cified side M54.40 [facility] [address] [facility] [id number] [address] [place] [phone] Oct, Lumbago with sciatica, unspe cified side M54.40 [facility] [address] [facility] [id number] [address] [place] [phone] Oct, [facility] [address] [facility] [id number] [address] [place] [phone] Oct, [facility] [address] [facility] [id number] [address] [place] [address] [id number] Oct, Dental examination Z01.20 [facility] [address] [facility] [id number] [address] [place] [phone] Oct, [facility] [address] [facility] [id number] [address] [place] [address] Oct, Pain in right knee M25.561 [facility] [address] [facility] [id number] [address] [place] [phone] Sep, [facility] [address] [facility] [id number] [address] [place] [phone] Sep, Other chronic pain G89.29 [facility] [address] [id number] [address] [place] [address] Sep, Lumbago with sciatica, unspe cified side M54.40 [facility] [address] [facility] [id number] [address] [place] [phone] Sep, [facility] [address] [facility] [id number] [address] [place] [phone] Sep, Viral URI J06.9 and BMI 45.0 -49.9, adult Z68.42 [facility] [address] [facility] [id number] [address] [place] [phone] Aug, Foreign body hand S60.559A a nd BMI 45.0-49.9, adult Z68.42 [facility] [address] [facility] [id number] [address] [place] [phone] Aug, [facility] [address] [facility] [id number] [address] [place] [phone] Aug, Lumbago with sciatica, unspe cified side M54.40 [place] [address] [facility] [id number] [address] [place] [phone] Aug, Vertigo R42 ; Dysfunction of both eustachian tubes H69.83 ; Low back pain M54.5 and Other chronic pain G89.29 [facility] [address] [place] [id number] [address] [place] [phone] Aug, Dizziness R42 and Acute bila teral otitis media H66.93 [place] [address] [facility] [id number] [address] [place] [phone] Aug, Lumbago with sciatica, unspe cified side M54.40 [facility] [address] [id number] [address] [place] [address] [id number] Jul, Dental examination Z01.20 [place] [address] [facility] [id number] [address] [place] [phone] Jul, [place] [address] [facility] [id number] [address] [place] [phone] Jul, [place] [address] [place] [id number] [address] [place] [phone] Jul, Dysfunction of both eustachi an tubes H69.83 [facility] [address] [facility] [id number] [address] [place] [phone] 07 Jul, 2017 Controlled type 2 diabetes evens maribell without complication, without long-term current use of insulin E11.9 [facility] [address] [id number] [address] [place] [phone] Jul, Controlled type 2 diabetes m ellitus without complication, without long-term current use of insulin E11.9 [facility] [address] [id number] [address] [place] [phone] Jul, Dizziness R42 and BMI 40.0-4 4.9, adult Z68.41 [facility] [address] [id number] [address] [place] [phone] Jul, Controlled type 2 diabetes m ellitus without complication, without long-term current use of insulin E11.9 [place] [address] [facility] [id number] [address] [place] [phone] Jul, Lumbago with sciatica, unspe cified side M54.40 [facility] [address] [id number] [place] [address] [id number] Jul, Dental examination Z01.20 [facility] [address] [id number] [address] [place] [phone] Jun, [facility] [address] [id number] [place] [address] [id number] Jun, Dental examination Z01.20 [facility] [address] [id number] [address] [place] [phone] Jun, Controlled type 2 diabetes m ellitus without complication, without long-term current use of insulin E11.9 [facility] [address] [id number] [address] [place] [phone] Jun, Lumbago with sciatica, unspe cified side M54.40 [facility] [address] [id number] [address] [place] [address] [id number] May, Dental examination Z01.20 [facility] [address] [id number] [address] [place] [phone] May, Controlled type 2 diabetes m ellitus without complication, without long-term current use of insulin E11.9 [facility] [address] [id number] [address] [place] [address] [id number] 19 May, 2017 Dental examination Z01.20 [facility] [address] [facility] [id number] [address] [place] [phone] 18 May, 2017 Bronchitis J40 ; Dry mouth R 68.2 ; Non morbid obesity E66.9 and Controlled type 2 diabetes mellitus without complication, without long-term current use of insulin E11.9 [facility] [address] [id number] [address] [place] [phone] 16 May, 2017 Encounter for immunization Z 23 [facility] [address] [facility] [id number] [address] [place] [phone] 07 May, 2017 Lumbago with sciatica, unspe cified side M54.40 [facility] [address] [facility] [id number] [address] [place] [phone] 05 May, 2017 [facility] [address] [id number] [address] [id number] Apr, Dental examination Z01.20 [facility] [address] [id number] [address] [place] [phone] Apr, Lumbago with sciatica, unspe cified side M54.40 [facility] [address] [id number] [address] [place] [phone] Mar, Lumbago with sciatica, left side M54.42 [facility] [address] [id number] [address] [place] [address] Mar, [facility] [address] [id number] [address] [place] [address] Mar, Lumbar neuritis M54.16 [facility] [address] [id number] [address] [place] [phone] Mar, [facility] [address] [id number] [place] [address] [id number] Mar, Dental examination Z01.20 [place] [address] [facility] [id number] [address] [place] [address] Mar, MELE (obstructive sleep apnea ) G47.33 ; Neuropathy involving both lower extremities G57.93 and Frequent headaches R51 [place] [address] [id number] [address] [place] [address] Mar, Lumbago with sciatica, unspe cified side M54.40 [place] [address] [id number] [address] [place] [phone] Feb, Lumbago with sciatica, unspe cified side M54.40 and Controlled type 2 diabetes mellitus without complication, without long-term current use of insulin E11.9 [place] [address] [facility] [id number] [address] [place] [address] January, Hypertension, benign I10 and Bilateral low back pain with sciatica, sciatica laterality unspecified M54.40 [place] [address] [place] [id number] [address] [place] [address] January, Hypertension, benign I10 ; L umbago with sciatica, unspecified side M54.40 ; Other chronic pain G89.29 and Controlled type 2 diabetes mellitus without complication, without long-term current use of insulin E11.9 [place] [address] [facility] [id number] [address] [place] [address] January, Lumbar neuritis M54.16 [place] [address] [id number] [address] [place] [phone] January, [place] [address] [facility] [id number] [address] [place] [address] Dec, Lumbago with sciatica, right side M54.41 and Lumbar neuritis M54.16 [place] [address] [facility] [id number] [address] [place] [address] Dec, Lumbar neuritis M54.16 [place] [address] [place] [id number] [address] [place] [address] Dec, Lumbar neuritis M54.16 [place] [address] [place] [id number] [address] [place] [address] Nov, Lumbar neuritis M54.16 ; Lum bago with sciatica, right side M54.41 ; Controlled type 2 diabetes mellitus without complication, without long-term current use of insulin E11.9 and Rash and nonspecific skin eruption R21 [place] [address] [place] [id number] [address] [place] [address] Nov, Lumbar neuritis M54.16 and P oison miroslava L23.7 [place] [address] [place] [id number] [place] [address] Oct, Lumbar neuritis M54.16 ; Cou ghing R05 and Mood disorder F39 [place] [address] [place] [id number] [address] [place] [address] Sep, Lumbago with sciatica, right side M54.41 [place] [address] [place] [id number] [address] [place] [address] Sep, Adjustment disorder with dis turbance of emotion F43.29 and Pain management R52 [place] [address] [place] [id number] [address] [place] [address] Sep, [place] [address] [place] [id number] [address] [place] [address] Sep, [place] [address] [place] [id number] [address] [place] [address] Sep, Controlled type 2 diabetes evens reyna without complication, without long-term current use of insulin E11.9 and Lumbago with sciatica, unspecified side M54.40 [place] [address] [place] [id number] [address] [place] [address] Aug, Controlled type 2 diabetes evens reyna without complication, without long-term current use of insulin E11.9 ; Pain in right knee M25.561 ; Pain in left knee M25.562 ; Other chronic pain G89.29 ; Lumbago with sciatica, right side M54.41 ; Neck pain M54.2 and Encounter for immunization Z23 [facility] [address] [id number] [address] [place] [address] Jul, [facility] [address] [id number] [address] [place] [id number] Jul, Controlled type 2 diabetes m maribell without complication, without long-term current use of insulin E11.9 [facility] [address] [id number] [address] [place] [phone] Jul, [facility] [address] [id number] [address] [place] [address] Jul, [facility] [address] [id number] [address] [place] [address] Jul, Lumbago with sciatica, left side M54.42 ; Lumbago with sciatica, right side M54.41 and Other chronic pain G89.29 [facility] [address] [id number] [address] [place] [phone] Jul, [facility] [address] [id number] [address] [place] [address] Jul, [facility] [address] [id number] [address] [place] [address] Jun, [facility] [address] [id number] [address] [place] [address] Jun, Lumbago with sciatica, right side M54.41 and Other chronic pain G89.29 [facility] [address] [id number] [address] [place] [address] Jun, Cervicalgia M54.2 ; Lumbago with sciatica, unspecified side M54.40 and Other chronic pain G89.29 [facility] [address] [id number] [address] [place] [address] 15 May, 2016 Pain in right knee M25.561 ; Pain in left knee M25.562 and Other chronic pain G89.29 [facility] [address] [id number] [address] [place] [address] May, [facility] [address] [id number] [address] [place] [address] Apr, Other chronic pain G89.29 an d Pain in right knee M25.561 [facility] [address] [id number] [address] [place] [address] Apr, Pain in right knee M25.561 [facility] [address] [id number] [address] [place] [address] Mar, [place] [address] [id number] [address] [place] [phone] Mar, Mood disorder F39 and Contro lled type 2 diabetes mellitus without complication, without long-term current use of insulin E11.9 [facility] [address] [id number] [address] [place] [address] Mar, Pain in right knee M25.561 ; Pain in left knee M25.562 ; Other chronic pain G89.29 ; Obstructive sleep apnea syndrome G47.33 ; Mood disorder F39 and Controlled type 2 diabetes mellitus without complication, without long- term current use of insulin E11.9 [facility] [address] [id number] [address] [place] [address] Mar, [facility] [address] [id number] [address] [place] [address] [id number] Feb, Dental examination Z01.20 [facility] [address] [id number] [address] [place] [phone] Feb, [facility] [address] [id number] [address] [place] [address] Feb, Osteoarthritis of right knee , unspecified osteoarthritis type M17.9 [facility] [address] [id number] [address] [place] [address] January, [facility] [address] [id number] [address] [place] [address] [id number] January, Dental examination Z01.20 [facility] [address] [id number] [address] [place] [phone] January, [facility] [address] [id number] [address] [place] [address] [id number] January, Dental examination Z01.20 an d Caries K02.9 [facility] [address] [id number] [address] [place] [address] Dec, Encounter for other preproce dural examination Z01.818 [facility] [address] [id number] [address] [place] [phone] Dec, [facility] [address] [id number] [address] [place] [phone] Dec, Knee pain M25.569 [facility] [address] [id number] [address] [place] [address] Dec, Pain in right knee M25.561 [facility] [address] [id number] [address] [place] [phone] Dec, [facility] [address] [id number] [address] [place] [address] Dec, [facility] [address] [id number] [address] [place] [phone] Dec, Encounter for immunization Z 23 [facility] [address] [id number] [address] [place] [id number] Dec, [facility] [address] [id number] [address] [place] [address] Dec, [facility] [address] [id number] [address] [place] [address] Nov, [facility] [address] [id number] [address] [place] [phone] Nov, Hypertension, benign I10 ; C ervicalgia M54.2 ; Pain in right knee M25.561 and Pain in left knee M25.562 [place] [address] [place] [id number] [address] [place] [address] Oct, [place] [address] [place] [id number] [address] [place] [address] Oct, [place] [address] [place] [id number] [place] [address] Oct, Osteoarthritis of both knees M17.0 [place] [address] [place] [id number] [place] [phone] Oct, [place] [address] [place] [id number] [place] [phone] Oct, Low back pain M54.5 [place] [address] [place] [id number] [place] [address] Oct, Low back pain M54.5 ; Sciati ca, unspecified side M54.30 ; Pain in right knee M25.561 ; Pain in left knee M25.562 ; Pain in right shoulder M25.511 and Pain in left shoulder M25.512 [place] [address] [place] [id number] [place] [address] Oct, [place] [address] [place] [id number] [address] [place] [address] Sep, Pain in right hip M25.551 [place] [address] [place] [id number] [address] [place] [phone] Sep, Acute upper respiratory infe ction, unspecified J06.9 [place] [address] [place] [id number] [address] [place] [phone] Aug, Acute upper respiratory infe ction, unspecified J06.9 and Other viral agents as the cause of diseases classified elsewhere B97.89 [place] [address] [place] [id number] [address] [place] [address] Jul, Arthritis M19.90 [facility] [address] [id number] [address] [place] [address] Jun, Arthritis M19.90 ; Pain in r ight hip M25.551 ; Pain in left hip M25.552 ; Bilateral low back pain with sciatica, sciatica laterality unspecified M54.40 ; Neck pain M54.2 ; Upper back pain M54.9 and Knee pain, unspecified laterality M25.569 [facility] [address] [id number] [address] [place] [address] 10 May, 2015 Osteoarthritis of both knees 715.96 [place] [address] [id number] [address] [place] [address] May, Rash 782.1 [place] [address] [place] [id number] [address] [place] [address] Apr, Lumbar strain 847.2 [facility] [address] [facility] [id number] [address] [place] [phone] Apr, Rash 782.1 [facility] [address] [facility] [id number] [address] [place] [phone] Mar, Rash 782.1 [facility] [address] [facility] [id number] [address] [place] [address] Feb, Rash 782.1 ; Hemorrhoids 455 .6 and Constipation 564.00 [place] [address] [facility] [id number] [address] [place] [phone] Feb, Osteoarthritis of both knees 715.96 [facility] [address] [id number] [address] [place] [phone] January, [facility] [address] [facility] [id number] [address] [place] [phone] Dec, [place] [address] [facility] [id number] [address] [place] [phone] Dec, [facility] [address] [id number] [address] [place] [address], [place] [address] 13 Dec, 2014 [facility] [address] [id number] [address] [place] [address], [place] [address] 18 Nov, 2014 [facility] [address] [id number] [address] [place] [address], [place] [address] 18 Nov, 2014 [facility] [address] [id number] [address] [place] [address], [place] [address] 18 Nov, 2014 [facility] [address] [id number] [address] [place] [address], [place] [address] 18 Nov, 2014 [facility] [address] [id number] [address] [place] [address], [place] [address] Nov, [facility] [address] [id number] [address] [place] [address], [place] [address] Nov, [facility] [address] [id number] [address] [place] [address], [place] [address] Oct, [facility] [address] [id number] [address] [place] [address], [place] [address] Oct, [facility] [address] [id number] [address] [place] [address], [place] [address] Oct, [facility] [address] [id number] [address] [place] [address], [place] [address] Oct, [facility] [address] [id number] [address] [place] [phone] Oct, 2014 [facility] [address] [id number] [address] [place] [address], [place] [address] Oct, [facility] [address] [id number] [address] [place] [address], [place] [address] Oct, [facility] [address] [id number] [address] [place] [address] 12 Oct, 2014 [facility] [address] [id number] [address] [place] [phone] Oct, [facility] [address] [id number] [address] [place] [address], [place] [address] Oct, [facility] [address] [id number] [address] [place] [address], [place] [address] Oct, [facility] [address] [id number] [address] [place] [address], [place] [address] Sep, [facility] [address] [id number] [address] [place] [address], [place] [address] Sep, [facility] [address] [id number] [address] [place] [address], [place] [address] Sep, [facility] [address] [id number] [address] [place] [address], [place] [address] Sep, [facility] [address] [id number] [address] [place] [address], [place] [address] Sep, [facility] [address] [id number] [address] [place] [address], [place] [address] Sep, [facility] [address] [id number] [address] [place] [address], [place] [address] Aug, [facility] [address] [id number] [address] [place] [address], [place] [address] Aug, [facility] [address] [id number] [address] [place] [address], [place] [address] Aug, [facility] [address] [id number] [address] [place] [address], [place] [address] Aug, [facility] [address] [id number] [address] [place] [address], [place] [address] Aug, [facility] [address] [id number] [address] [place] [address], [place] [address] Aug, [facility] [address] [id number] [address] [place] [address], [place] [address] Aug, [facility] [address] [id number] [address] [place] [address], [place] [address] Aug, [facility] [address] [id number] [address] [place] [address], [place] [address] Aug, [facility] [address] [id number] [address] [place] [address], [place] [address] Aug, [facility] [address] [id number] [address] [place] [address], [place] [address] Jul, [facility] [address] [id number] [address] [place] [address], [place] [address] Jul, [facility] [address] [id number] [address] [place] [address], [place] [address] Jul, [facility] [address] [id number] [address] [place] [address], [place] [address] Jul, [facility] [address] [id number] [address] [place] [address], [place] [address] Jun, [facility] [address] [id number] [address] [place] [address], [place] [address] Jun, [facility] [address] [id number] [address] [place] [address], [place] [address] Jun, [facility] [address] [id number] [address] [place] [address], [place] [address] Jun, [facility] [address] [id number] [address] [place] [address], [place] [address] Jun, [facility] [address] [id number] [address] [place] [address], [place] [address] Jun, [facility] [address] [id number] [address] [place] [address], [place] [address] Jun, [facility] [address] [id number] [address] [place] [address], [place] [address] Jun, [facility] [address] [id number] [address] [place] [address], [place] [address] May, 2013 [facility] [address] [id number] [facility] [place] [address] 24 May, 2013 [facility] [address] [id number] [address] [place] [address], [place] [address] 19 May, 2014 [facility] [address] [id number] [address] [place] [address], [place] [address] 19 May, 2013 [facility] [address] [id number] [address] [place] [address], [place] [address] 15 May, 2013 [facility] [address] [id number] [address] [place] [address], [place] [address] 15 May, 2014 [facility] [address] [id number] [address] [place] [address], [place] [address] 15 May, 2014 [facility] [address] [id number] [address] [place] [address], [place] [address] May, [facility] [address] [id number] [address] [place] [address], [place] [address] Apr, [facility] [address] [id number] [address] [place] [address], [place] [address] Apr, [facility] [address] [id number] [address] [place] [address], [place] [address] Apr, [facility] [address] [id number] [address] [place] [address], [place] [address] Apr, [facility] [address] [id number] [address] [place] [address], [place] [address] Apr, [facility] [address] [id number] [address] [place] [address], [place] [address] Apr, [facility] [address] [id number] [address] [place] [address], [place] [address] Apr, [facility] [address] [id number] [address] [place] [address], [place] [address] Apr, [facility] [address] [id number] [address] [place] [address], [place] [address] Apr, [facility] [address] [id number] [address] [place] [address], [place] [address] Apr, [facility] [address] [id number] [address] [place] [address], [place] [address] Apr, [facility] [address] [id number] [address] [place] [address], [place] [address] Apr, [facility] [address] [id number] [address] [place] [address], [place] [address] Mar, [facility] [address] [id number] [address] [place] [address], [place] [address] Mar, [facility] [address] [id number] [address] [place] [address], [place] [address] Mar, [facility] [address] [id number] [address] [place] [address], [place] [address] Mar, [facility] [address] [id number] [address] [place] [address], [place] [address] Mar, [facility] [address] [id number] [address] [place] [address], [place] [address] Mar, [facility] [address] [id number] [address] [place] [address], [place] [address] Feb, [facility] [address] [id number] [address] [place] [address], [place] [address] Feb, [facility] [address] [id number] [address] [place] [address], [place] [address] Feb, [facility] [address] [id number] [address] [place] [address], [place] [address] Feb, [facility] [address] [id number] [address] [place] [address], [place] [address] Feb, [facility] [address] [id number] [address] [place] [address], [place] [address] Feb, [facility] [address] [id number] [address] [place] [address], [place] [address] Feb, [facility] [address] [id number] [address] [place] [address], [place] [address] Feb, [facility] [address] [id number] [address] [place] [address], [place] [address] Feb, [facility] [address] [id number] [address] [place] [address], [place] [address] Feb, [facility] [address] [id number] [address] [place] [address], [place] [address] Feb, [facility] [address] [id number] [address] [place] [address], [place] [address] Feb, [facility] [address] [id number] [address] [place] [address], [place] [address] Feb, [facility] [address] [id number] [address] [place] [address], [place] [address] Feb, [facility] [address] [id number] [address] [place] [address], [place] [address] January, [facility] [address] [id number] [address] [place] [address], [place] [address] January, [facility] [address] [id number] [address] [place] [address], [place] [address] January, [facility] [address] [id number] [address] [place] [address], [place] [address] January, [facility] [address] [id number] [address] [place] [address], [place] [address] January, [facility] [address] [id number] [address] [place] [address], [place] [address] January, [facility] [address] [id number] [address] [place] [address], [place] [address] Dec, [facility] [address] [id number] [address] [place] [address], [place] [address] Dec, [facility] [address] [id number] [address] [place] [address] Dec, [facility] [facility] [address] [id number] [address] [place] [address], [place] [address] Dec, [facility] [address] [id number] [address] [place] [address], [place] [address] Dec, [facility] [address] [id number] [address] [place] [address], [place] [address] Dec, [facility] [address] [id number] [address] [place] [address], [place] [address] Dec, [facility] [address] [id number] [address] [place] [address], [place] [address] Dec, [facility] [address] [id number] [address] [place] [address], [place] [address] Nov, [facility] [address] [id number] [address] [place] [address], [place] [address] Nov, [facility] [address] [id number] [address] [place] [address], [place] [address] Nov, [facility] [address] [id number] [address] [place] [address], [place] [address] Nov, [facility] [address] [id number] [address] [place] [address], [place] [address] Nov, [facility] [address] [id number] [address] [place] [address], [place] [address] Nov, [facility] [address] [id number] [address] [place] [address], [place] [address] Nov, [facility] [address] [id number] [address] [place] [address], [place] [address] Nov, [facility] [address] [id number] [address] [place] [address], [place] [address] Oct, [facility] [address] [id number] [address] [place] [address], [place] [address] Oct, [facility] [address] [id number] [address] [place] [address], [place] [address] Oct, [facility] [address] [id number] [address] [place] [address], [place] [address] Oct, [facility] [address] [id number] [address] [place] [address], [place] [address] Oct, [facility] [address] [id number] [address] [place] [address], [place] [address] Oct, [facility] [address] [id number] [address] [place] [address], [place] [address] Oct, [facility] [address] [id number] [address] [place] [address], [place] [address] Oct, [facility] [address] [id number] [address] [place] [address], [place] [address] Oct, [facility] [address] [id number] [address] [place] [address], [place] [address] Oct, [facility] [address] [id number] [address] [place] [address], [place] [address] Sep, [facility] [address] [id number] [address] [place] [address], [place] [address] Sep, [facility] [address] [id number] [address] [place] [address], [place] [address] Sep, [facility] [address] [id number] [address] [place] [address], [place] [address] Sep, [facility] [address] [id number] [address] [place] [address], [place] [address] Sep, [facility] [address] [id number] [address] [place] [address], [place] [address] Sep, [facility] [address] [id number] [address] [place] [address] Aug, [facility] [address] [id number] [address] [place] [address], [place] [address] Aug, [facility] [address] [id number] [address] [place] [address], [place] [address] Aug, [facility] [address] [id number] [address] [place] [address], [place] [address] Aug, [facility] [address] [id number] [address] [place] [address], [place] [address] Aug, [facility] [address] [id number] [address] [place] [address], [place] [address] Aug, [facility] [address] [id number] [address] [place] [address], [place] [address] Aug, [facility] [address] [id number] [address] [place] [address], [place] [address] Aug, [facility] [address] [id number] [address] [place] [address], [place] [address] Jul, [facility] [address] [id number] [address] [place] [address], [place] [address] Jul, [facility] [address] [id number] [address] [place] [address], [place] [address] Jul, [facility] [address] [id number] [address] [place] [address] Jul, [facility] [address] [id number] [address] [place] [address] Jul, [facility] [address] [id number] [address] [place] [address] Jul, [facility] [address] [id number] [address] [place] [address], [place] [address] Jun, [facility] [address] [id number] [address] [place] [address], [place] [address] Jun, [facility] [address] [id number] [address] [place] [address], [place] [address] Jun, [facility] [address] [id number] [address] [place] [address], [place] [address] May, [facility] [address] [id number] [address] [place] [address], [place] [address] May, [facility] [address] [id number] [address] [place] [address], [place] [address] May, [facility] [address] [id number] [address] [place] [address], [place] [address] Apr, [facility] [address] [id number] [address] [place] [address], [place] [address] Apr, [facility] [address] [id number] [address] [place] [address], [place] [address] Apr, [facility] [address] [id number] [address] [place] [address], [place] [address] Apr, [facility] [address] [id number] [address] [place] [address], [place] [address] Mar, [facility] [address] [id number] [address] [place] [address], [place] [address] Mar, [facility] [address] [id number] [address] [place] [address], [place] [address] Mar, [facility] [address] [id number] [address] [place] [address], [place] [address] Mar, [facility] [address] [id number] [address] [place] [address], [place] [address] Feb, [facility] [address] [id number] [address] [place] [address], [place] [address] Feb, [facility] [address] [id number] [address] [place] [address], [place] [address] Feb, [facility] [address] [id number] [address] [place] [address], [place] [address] Feb, [facility] [address] [id number] [address] [place] [address], [place] [address] January, [facility] [address] [id number] [address] [place] [address], [place] [address] January, [facility] [address] [id number] [address] [place] [address], [place] [address] January, [facility] [address] [id number] [address] [place] [address], [place] [address] Nov, [facility] [address] [id number] [address] [place] [address], [place] [address] Nov, [facility] [address] [id number] [address] [place] [address], [place] [address] Oct, [facility] [address] [id number] [address] [place] [address], [place] [address] Oct, [facility] [address] [id number] [address] [place] [address], [place] [address] Oct, [facility] [address] [id number] [address] [place] [address], [place] [address] Oct, [facility] [address] [id number] [address] [place] [address], [place] [address] Sep, [facility] [address] [id number] [address] [place] [address], [place] [address] Sep, [facility] [address] [id number] [address] [place] [address], [place] [address] Sep, [facility] [address] [id number] [address] [place] [address], [place] [address] Aug, [facility] [address] [id number] [address] [place] [address], [place] [address] Aug, [facility] [address] [id number] [address] [place] [address], [place] [address] Aug, [facility] [address] [id number] [address] [place] [address], [place] [address] Aug, [facility] [address] [id number] [address] [place] [address], [place] [address] Aug, [facility] [address] [id number] [address] [place] [address], [place] [address] Aug, [facility] [address] [id number] [address] [place] [address], [place] [address] Jul, [facility] [address] [id number] [address] [place] [address], [place] [address] Jul, [facility] [address] [id number] [address] [place] [address], [place] [address] Jun, [facility] [address] [id number] [address] [place] [address], [place] [address] Jun, [facility] [address] [id number] [address] [place] [address], [place] [address] Jun, [facility] [address] [id number] [address] [place] [address], [place] [address] Apr, [facility] [address] [id number] [address] [place] [address], [place] [address] Apr, [facility] [address] [id number] [address] [place] [address], [place] [address] Mar, [facility] [address] [id number] [address] [place] [address], [place] [address] Mar, [facility] [address] [id number] [address] [place] [address], [place] [address] Mar, [facility] [address] [id number] [address] [place] [address], [place] [address] Mar, [facility] [address] [id number] [address] [place] [address], [place] [address] Feb, [facility] [address] [id number] [address] [place] [address], [place] [address] Feb, [facility] [address] [id number] [address] [place] [address], [place] [address] Feb, [facility] [address] [id number] [address] [place] [address], [place] [address] January, [facility] [address] [id number] [address] [place] [address], [place] [address] January, [facility] [address] [id number] [address] [place] [address], [place] [address] January, [facility] [address] [id number] [address] [place] [address], [place] [address] January, [facility] [address] [id number] [address] [place] [address], [place] [address] Dec, [facility] [address] [id number] [address] [place] [address], [place] [address] Dec, [facility] [address] [id number] [address] [place] [address], [place] [address] Nov, [facility] [address] [id number] [address] [place] [address], [place] [address] Nov, [facility] [address] [id number] [address] [place] [address], [place] [address] Oct, [facility] [address] [id number] [address] [place] [address], [place] [address] Oct, [facility] [address] [id number] [address] [place] [address], [place] [address] Sep, [facility] [address] [id number] [address] [place] [address], [place] [address] Sep, [facility] [address] [id number] [address] [place] [address], [place] [address] Sep, [facility] [address] [id number] [address] [place] [address], [place] [address] Sep, [facility] [address] [id number] [address] [place] [address] 16 Aug, 2011 [facility] [address] [id number] [address] [place] [address], [place] [address] 16 Aug, 2011 [facility] [address] [id number] [address] [place] [address] 09 Aug, 2011 [facility] [address] [id number] [address] [place] [address], [place] [address] Jul, [facility] [address] [id number] [address] [place] [address], [place] [address] 22 Aug, 2010 [facility] [address] [id number] [address] [place] [address], [place] [address] Aug, [facility] [address] [id number] [address] [place] [address], [place] [address] Aug, [facility] [address] [id number] [address] [place] [address] Aug, [facility] [address] [id number] [address] [place] [address] Jul, [facility] [address] [id number] [address] [place] [address] Jul, [facility] [address] [id number] [address] [place] [address] Jul, [facility] [address] [id number] [address] [place] [address] Jun, [facility] [address] [id number] [address] [place] [address] Jun, [facility] [address] [id number] [address] [place] [address] Jun, [facility] [address] [id number] [address] [place] [address] Apr, [facility] [address] [id number] [address] [place] [address] Mar, IMMUNIZATIONS No Known Immunizations SOCIAL HISTORY Never Assessed REASON FOR VISIT PLAN OF CARE VITAL SIGNS Blood pressure systolic 132 mmHg 2013-05-10 Blood pressure diastolic 90 mmHg 2013-05-10 MEDICATIONS Unknown Medications RESULTS No Results PROCEDURES Procedure Date Ordered Result Body Site DRAIN/INJECT, JOINT/BURSA May 10, 2013 INSTRUCTIONS MEDICATIONS ADMINISTERED No Known Medications [...]
--- OUTSIDE RECORDS SUMMARY | 2020-03-18 14:56 | XMS REPORT ---
Author Author George CAMPA Organization [facility] Address [address] [place] [address] Care Team Providers Care Deputy Commissioner Name Role Phone TORO CAMPA Unavailable PROBLEMS Type Condition ICD9-CM Code FTP39-JK Code Onset Dates Condition S tatus SNOMED Code Problem Hypertension, benign I10 Active 54800839 Problem Other chronic pain G89.29 Active 8 2846982 Problem Lumbago with sciatica, unspecified side M54.40 Active 794587709 Problem Controlled type 2 diabetes m ellitus without complication, without long- term current use of insulin E11.9 Active 368001251 Problem Lumbago with sciatica, right side M54.41 Active 970387155 Problem Adjustment disorder with disturbance of emotion F4 3.29 Active 76065751 Problem MELE (obstructive sleep apnea) G47.33 Active 42536059 Problem Non morbid obesity E66.9 Active 4 85811548 Problem Hammer toe of left foot M20.42 Active 818650787 Problem Mood disorder F39 Active 584127 05 Problem Deformity of left foot M21.962 Active 595986080 Problem Lumbago with sciatica, left side M54.42 Active 565789335 Problem Erectile dysfunction due to diseases classified elsewhere N52.1 Active 726335990 Problem Obstructive sleep apnea syndrome G47.33 Active 21275456 Problem Type 2 diabetes mellitus wit h diabetic neuropathy, without long-term current use of insulin E11.40 Active 66597 006 Problem Essential hypertension I10 Active 04426678 ALLERGIES No Known Allergies ENCOUNTERS Encounter Location Date Diagnosis [facility] [address] [facility] [id number] [address] [place] [address] January, [facility] [address] [facility] [id number] [address] [place] [address] Dec, Acute diffuse otitis externa of left ear H60.312 [facility] [address] [place] [id number] [address] [place] [address] Nov, Viral URI J06.9 and Flu-like symptoms R68.89 [place] [address] [address] Nov, Type 2 diabetes mellitus wit h diabetic neuropathy, without long- term current use of insulin E11.40 ; Family history of prostate cancer Z80.42 and Prostate cancer screening Z12.5 [place] [address] [address] Nov, [place] [address] [address] Sep, [place] [address] [address] Aug, [place] [address] [address] Jul, Lumbago with sciatica, unspe cified side M54.40 [place] [address] [place] [id number] [address] [place] [address] Jun, Lumbago with sciatica, unspe cified side M54.40 [place] [address] [address] Jun, URI, acute J06.9 [place] [address] [address] May, Lumbago with sciatica, unspe cified side M54.40 [place] [address] [place] [id number] [address] [place] [address] May, [place] [address] [address] May, Type 2 diabetes mellitus wit h diabetic neuropathy, without long- term current use of insulin E11.40 and Hammer toe of left foot M20.42 [place] [address] [address] May, [facility] [address] [facility] [id number] [address] [place] [address] May, [facility] [address] [facility] [id number] [address] [place] [address] May, [facility] [address] [facility] [id number] [address] [place] [address] Apr, Lumbago with sciatica, unspe cified side M54.40 [facility] [address] [facility] [id number] [address] [place] [address] Apr, [facility] [address] [facility] [id number] [address] [place] [address] Apr, [address] [id number] [address] Apr, Hammer toe of left foot M20. 42 ; Chest pain R07.9 ; Preoperative examination Z01.818 and Morbid obesity E66.01 [facility] [address] [facility] [id number] [address] [place] [address] Apr, Morbid obesity E66.01 ; Bron chitis J40 and High risk medications (not anticoagulants) long-term use Z79.899 [facility] [address] [facility] [id number] [address] [place] [address] Apr, Lumbago with sciatica, unspe cified side M54.40 [facility] [address] [facility] [id number] [address] [place] [address] Apr, [facility] [address] [facility] [id number] [address] [place] [address] Mar, Lumbar neuritis M54.16 and M orbid obesity E66.01 [facility] [address] [facility] [id number] [address] [place] [address] Mar, [facility] [address] [facility] [id number] [address] [place] [address] Mar, [facility] [address] [id number] [address] [place] [address] Mar, Lumbago with sciatica, unspe cified side M54.40 [facility] [address] [id number] [address] [place] [address] Mar, Morbid obesity E66.01 ; Coug marco R05 ; 2+ pitting edema R60.9 and Controlled type 2 diabetes mellitus without complication, without long-term current use of insulin E11.9 [facility] [address] [id number] [address] [place] [address] Feb, [facility] [address] [id number] [address] [place] [address] Feb, Lumbago with sciatica, unspe cified side M54.40 [place] [address] [id number] [address] [place] [address] Feb, [facility] [address] [id number] [address] [place] [address] Feb, Controlled type 2 diabetes m ellitus without complication, without long-term current use of insulin E11.9 and Morbid obesity E66.01 [facility] [address] [id number] [address] [place] [address] January, Deformity of left foot M21.9 62 [facility] [address] [id number] [address] [place] [address] January, [facility] [address] [id number] [address] [place] [address] January, Lumbago with sciatica, unspe cified side M54.40 [facility] [address] [id number] [address] [place] [address] January, [facility] [address] [facility] [id number] [address] [place] [address] January, Lumbago with sciatica, unspe cified side M54.40 [facility] [address] [place] [id number] [address] [place] [address] January, [facility] [address] [address] January, Acute right-sided thoracic b ack pain M54.6 [facility] [address] [place] [id number] [address] [place] [address] January, Acute right-sided thoracic b ack pain M54.6 [facility] [address] [place] [id number] [address] [place] [address] January, Chest pain, unspecified type R07.9 ; Morbid obesity E66.01 and Scabies B86 [facility] [address] [place] [id number] [address] [place] [address] Dec, Lumbago with sciatica, unspe cified side M54.40 [place] [address] [place] [id number] [place] [address] Dec, Toenail fungus B35.1 [place] [address] [address] Dec, Toenail fungus B35.1 [facility] [address] [place] [id number] [address] [place] [address] Dec, Acute right-sided thoracic b ack pain M54.6 [facility] [address] [place] [id number] [address] [place] [address] Dec, Lumbago with sciatica, unspe cified side M54.40 [place] [address] [place] [id number] [address] [place] [address] Nov, Hammer toe of left foot M20. 42 ; Deformity of left foot M21.962 and Type 2 diabetes mellitus with diabetic neuropathy, without long-term current use of insulin E11.40 [facility] [address] [place] [id number] [address] [place] [address] Nov, Acute right-sided thoracic b ack pain M54.6 ; Morbid obesity E66.01 and Rt flank pain R10.9 [place] [address] [address] Nov, Lumbago with sciatica, unspe cified side M54.40 [place] [address] [address] Oct, Lumbago with sciatica, unspe cified side M54.40 [place] [address] [address] Sep, Lumbago with sciatica, unspe cified side M54.40 [place] [address] [address] Sep, [place] [address] [address] Sep, BMI 40.0-44.9, adult Z68.41 ; Lumbago with sciatica, left side M54.42 ; Lumbago with sciatica, right side M54.41 and Other chronic pain G89.29 [place] [address] [address] Aug, Lumbago with sciatica, unspe cified side M54.40 [place] [address] [address] Aug, Type 2 diabetes mellitus wit h diabetic neuropathy, without long- term current use of insulin E11.40 ; Hammer toe of left foot M20.42 ; Hypertension, benign I10 and Frequent headaches R51 [place] [address] [address] Jul, Lumbago with sciatica, unspe cified side M54.40 [place] [address] [address] Jul, [place] [address] [facility] [id number] [address] [place] [address] Jul, Essential hypertension I10 a nd Controlled type 2 diabetes mellitus without complication, without long-term current use of insulin E11.9 [facility] [address] [facility] [id number] [address] [place] [address] Jul, Essential hypertension I10 ; Controlled type 2 diabetes mellitus without complication, without long-term current use of insulin E11.9 and BMI 40.0-44.9, adult Z68.41 [place] [address] [facility] [id number] [address] [place] [address] Jul, Dysfunction of left eustachi an tube H69.82 [place] [address] [facility] [id number] [address] [place] [address] Jul, Lumbago with sciatica, unspe cified side M54.40 [facility] [id number] [place] [address] [id number] Jun, Dental examination Z01.20 [place] [address] [place] [id number] [address] [place] [address] Jun, Lumbago with sciatica, unspe cified side M54.40 and Encounter for immunization Z23 [place] [address] [facility] [id number] [address] [place] [address] Jun, Dysfunction of left eustachi an tube H69.[address] [place] [id number] [place] [address] [id number] Jun, Dental examination Z01.20 [facility] [address] [facility] [id number] [address] [place] [address] Jun, Other chronic pain G89.29 [facility] [address] [place] [id number] [address] [place] [address] [id number] Jun, Dental examination Z01.20 [facility] [address] [facility] [id number] [address] [place] [address] Jun, [place] [address] [place] [id number] [address] [place] [address] Jun, Bronchitis J40 ; Dysfunction of left eustachian tube H69.82 and BMI 45.0-49.9, adult Z68.42 [place] [address] [address] Jun, Lumbago with sciatica, unspe cified side M54.40 [place] [address] [address] May, Type 2 diabetes mellitus wit h diabetic neuropathy, without long- term current use of insulin E11.40 and Hypertension, benign I10 [place] [address] [address] May, Lumbago with sciatica, unspe cified side M54.40 [facility] [address] [address] Apr, [place] [address] [address] Apr, Controlled type 2 diabetes m ellitus without complication, without long-term current use of insulin E11.9 ; Insect bite (nonvenomous), right ankle, initial encounter S90.561A ; Local infection of the skin and subcutaneous tissue, unspecified L08.9 ; Acute swimmer''s ear of left side H60.332 and BMI 45.0-49.9, adult Z68.42 [place] [address] [place] [id number] [address] [place] [address] Apr, Lumbago with sciatica, unspe cified side M54.40 [place] [address] [address] Mar, [place] [address] [address] Mar, Lumbago with sciatica, unspe cified side M54.40 [place] [address] [address] 14 Feb, 2018 Lumbago with sciatica, unspe cified side M54.40 [place] [address] [address] Feb, BMI 45.0-49.9, adult Z68.42 and Obstructive sleep apnea syndrome G47.33 [place] [address] [address] January, Lumbar neuritis M54.16 [place] [address] [address] January, Lumbago with sciatica, unspe cified side M54.40 [place] [address] [address] Dec, Controlled type 2 diabetes m ellitus without complication, without long-term current use of insulin E11.9 ; Erectile dysfunction due to diseases classified elsewhere N52.1 and Mood disorder F39 [place] [address] [address] Dec, Lumbago with sciatica, unspe cified side M54.40 [facility] [address] [address] Dec, Obstructive sleep apnea synd luis G47.33 [place] [address] [place] [address] Nov, Lumbago with sciatica, unspe cified side M54.40 ; Hypertension, benign I10 and Mood disorder F39 [facility] [address] [place] [id number] [address] [place] [address] Nov, Other chronic pain G89.29 [facility] [address] [place] [id number] [address] [place] [address] Nov, Lumbago with sciatica, unspe cified side M54.40 [facility] [address] [place] [id number] [address] [place] [address] [id number] Nov, Dental examination Z01.20 [facility] [address] [id number] [address] [place] [address] Oct, [facility] [address] [id number] [address] [place] [address] Oct, Lumbago with sciatica, unspe cified side M54.40 [facility] [address] [id number] [address] [place] [address] Oct, Lumbago with sciatica, unspe cified side M54.40 [facility] [address] [facility] [id number] [address] [place] [address] Oct, [facility] [address] [facility] [id number] [address] [place] [address] Oct, [facility] [address] [place] [id number] [address] [place] [address] [id number] Oct, Dental examination Z01.20 [facility] [address] [id number] [address] [place] [address] Oct, [facility] [address] [facility] [id number] [address] [place] [address] Oct, Pain in right knee M25.561 [facility] [address] [facility] [id number] [address] [place] [address] Sep, [facility] [address] [facility] [id number] [address] [place] [address] Sep, Other chronic pain G89.29 [facility] [address] [facility] [id number] [address] [place] [address] Sep, Lumbago with sciatica, unspe cified side M54.40 [facility] [address] [facility] [id number] [address] [place] [address] Sep, [facility] [address] [place] [id number] [address] [place] [address] Sep, Viral URI J06.9 and BMI 45.0 -49.9, adult Z68.42 [facility] [address] [address] Aug, Foreign body hand S60.559A a nd BMI 45.0-49.9, adult Z68.42 [facility] [address] [address] Aug, [facility] [address] [address] Aug, Lumbago with sciatica, unspe cified side M54.40 [facility] [address] [address] Aug, Vertigo R42 ; Dysfunction of both eustachian tubes H69.83 ; Low back pain M54.5 and Other chronic pain G89.29 [facility] [address] [place] [id number] [address] [place] [address] Aug, Dizziness R42 and Acute bila teral otitis media H66.93 [place] [address] [place] [id number] [address] [place] [address] Aug, Lumbago with sciatica, unspe cified side M54.40 [facility] [address] [place] [id number] [address] [place] [address] [id number] Jul, Dental examination Z01.20 [facility] [address] [place] [id number] [address] [place] [address] Jul, [place] [address] [address] Jul, [place] [address] [place] [id number] [address] [place] [address] Jul, Dysfunction of both eustachi an tubes H69.83 [facility] [address] [address] Jul, Controlled type 2 diabetes m ellitus without complication, without long-term current use of insulin E11.9 [facility] [address] [facility] [id number] [address] [place] [address] Jul, Controlled type 2 diabetes m ellitus without complication, without long-term current use of insulin E11.9 [facility] [address] [facility] [id number] [address] [place] [address] Jul, Dizziness R42 and BMI 40.0-4 4.9, adult Z68.41 [facility] [address] [facility] [id number] [address] [place] [address] Jul, Controlled type 2 diabetes m ellitus without complication, without long-term current use of insulin E11.9 [facility] [address] [facility] [id number] [address] [place] [address] Jul, Lumbago with sciatica, unspe cified side M54.40 [facility] [id number] [place] [address] [id number] Jul, Dental examination Z01.20 [facility] [address] [facility] [id number] [address] [place] [address] Jun, [facility] [address] [id number] [place] [address] [id number] Jun, Dental examination Z01.20 [facility] [address] [id number] [address] [place] [address] Jun, Controlled type 2 diabetes m ellitus without complication, without long-term current use of insulin E11.9 [facility] [address] [id number] [address] [place] [address] Jun, Lumbago with sciatica, unspe cified side M54.40 [facility] [address] [id number] [address] [place] [address] [id number] May, Dental examination Z01.20 [facility] [address] [id number] [address] [place] [address] 21 May, 2017 Controlled type 2 diabetes m ellitus without complication, without long-term current use of insulin E11.9 [facility] [address] [id number] [address] [place] [address] [id number] 19 May, 2017 Dental examination Z01.20 [facility] [address] [id number] [address] [place] [address] 18 May, 2017 Bronchitis J40 ; Dry mouth R 68.2 ; Non morbid obesity E66.9 and Controlled type 2 diabetes mellitus without complication, without long-term current use of insulin E11.9 [facility] [address] [id number] [address] [place] [address] 16 May, 2017 Encounter for immunization Z 23 [facility] [address] [facility] [id number] [address] [place] [address] 07 May, 2017 Lumbago with sciatica, unspe cified side M54.40 [facility] [address] [id number] [address] [place] [address] 05 May, 2017 [facility] [address] [id number] [address] [place] [address] [id number] Apr, Dental examination Z01.20 [facility] [address] [id number] [address] [place] [address] Apr, Lumbago with sciatica, unspe cified side M54.40 [facility] [address] [id number] [address] [place] [address] Mar, Lumbago with sciatica, left side M54.42 [facility] [address] [id number] [address] [place] [address] Mar, [facility] [address] [facility] [id number] [address] [place] [address] Mar, Lumbar neuritis M54.16 [facility] [address] [facility] [id number] [address] [place] [id number] Mar, [facility] [address] [id number] [address] [place] [address] [id number] Mar, Dental examination Z01.20 [place] [address] [facility] [id number] [address] [place] [address] Mar, MELE (obstructive sleep apnea ) G47.33 ; Neuropathy involving both lower extremities G57.93 and Frequent headaches R51 [place] [address] [facility] [id number] [address] [place] [id number] Mar, Lumbago with sciatica, unspe cified side M54.40 [place] [address] [facility] [id number] [address] [place] [address] Feb, Lumbago with sciatica, unspe cified side M54.40 and Controlled type 2 diabetes mellitus without complication, without long-term current use of insulin E11.9 [place] [address] [place] [id number] [address] [place] [address] January, Hypertension, benign I10 and Bilateral low back pain with sciatica, sciatica laterality unspecified M54.40 [place] [address] [facility] [id number] [address] [place] [address] January, Hypertension, benign I10 ; L umbago with sciatica, unspecified side M54.40 ; Other chronic pain G89.29 and Controlled type 2 diabetes mellitus without complication, without long-term current use of insulin E11.9 [place] [address] [facility] [id number] [address] [place] [address] January, Lumbar neuritis M54.16 [place] [address] [facility] [id number] [address] [place] [address] January, [place] [address] [place] [id number] [address] [place] [address] Dec, Lumbago with sciatica, right side M54.41 and Lumbar neuritis M54.16 [place] [address] [facility] [id number] [address] [place] [address] Dec, Lumbar neuritis M54.16 [place] [address] [place] [id number] [address] [place] [address] Dec, Lumbar neuritis M54.16 [place] [address] [address] [place] [id number] [address] [place] [phone] Nov, Lumbar neuritis M54.16 ; Lum bago with sciatica, right side M54.41 ; Controlled type 2 diabetes mellitus without complication, without long-term current use of insulin E11.9 and Rash and nonspecific skin eruption R21 [place] [address] [address] [place] [id number] [address] [place] [id number] Nov, Lumbar neuritis M54.16 and P alexi miroslava L23.7 [place] [address] [address] [place] [id number] [place] [id number] 16 Oct, 2016 Lumbar neuritis M54.16 ; Cou ghing R05 and Mood disorder F39 [place] [address] [address] [place] [id number] [address] [place] [id number] Sep, Lumbago with sciatica, right side M54.41 [place] [address] [address] [place] [id number] [place] [phone] Sep, Adjustment disorder with dis turbance of emotion F43.29 and Pain management R52 [place] [address] [address] [place] [id number] [address] [place] [phone] Sep, [place] [address] [address] [place] [id number] [address] [place] [phone] Sep, [place] [address] [address] [place] [id number] [address] [place] [phone] Sep, Controlled type 2 diabetes evens reyna without complication, without long-term current use of insulin E11.9 and Lumbago with sciatica, unspecified side M54.40 [place] [address] [address] [place] [id number] [address] [place] [phone] Aug, Controlled type 2 diabetes evens reyna without complication, without long-term current use of insulin E11.9 ; Pain in right knee M25.561 ; Pain in left knee M25.562 ; Other chronic pain G89.29 ; Lumbago with sciatica, right side M54.41 ; Neck pain M54.2 and Encounter for immunization Z23 [facility] [address] [id number] [address] [place] [address] Jul, [facility] [address] [id number] [address] [place] [address] Jul, Controlled type 2 diabetes evens reyna without complication, without long-term current use of insulin E11.9 [facility] [address] [id number] [address] [place] [address] Jul, [facility] [address] [id number] [address] [place] [address] Jul, [facility] [address] [id number] [address] [place] [address] Jul, Lumbago with sciatica, left side M54.42 ; Lumbago with sciatica, right side M54.41 and Other chronic pain G89.29 [facility] [address] [id number] [address] [place] [address] Jul, [facility] [address] [id number] [address] [place] [address] Jul, [facility] [address] [id number] [address] [place] [address] Jun, [facility] [address] [id number] [address] [place] [address] Jun, Lumbago with sciatica, right side M54.41 and Other chronic pain G89.29 [facility] [address] [id number] [address] [place] [address] Jun, Cervicalgia M54.2 ; Lumbago with sciatica, unspecified side M54.40 and Other chronic pain G89.29 [facility] [address] [id number] [address] [place] [address] 15 May, 2016 Pain in right knee M25.561 ; Pain in left knee M25.562 and Other chronic pain G89.29 [facility] [address] [id number] [address] [place] [address] 14 May, 2016 [facility] [address] [id number] [address] [place] [address] Apr, Other chronic pain G89.29 an d Pain in right knee M25.561 [facility] [address] [id number] [address] [place] [address] Apr, Pain in right knee M25.561 [facility] [address] [id number] [address] [place] [address] Mar, [facility] [address] [id number] [address] [place] [address] Mar, Mood disorder F39 and Contro lled type 2 diabetes mellitus without complication, without long-term current use of insulin E11.9 [facility] [address] [id number] [address] [place] [address] Mar, Pain in right knee M25.561 ; Pain in left knee M25.562 ; Other chronic pain G89.29 ; Obstructive sleep apnea syndrome G47.33 ; Mood disorder F39 and Controlled type 2 diabetes mellitus without complication, without long- term current use of insulin E11.9 [facility] [address] [id number] [address] [place] [address] Mar, [facility] [address] [id number] [address] [place] [id number] Feb, Dental examination Z01.20 [facility] [address] [id number] [address] [place] [address] Feb, [facility] [address] [id number] [address] [place] [address] Feb, Osteoarthritis of right knee , unspecified osteoarthritis type M17.9 [facility] [address] [id number] [address] [place] [address] January, [facility] [address] [id number] [address] [place] [address] [id number] January, Dental examination Z01.20 [facility] [address] [id number] [address] [place] [address] January, [facility] [address] [id number] [address] [place] [id number] January, Dental examination Z01.20 an d Caries K02.9 [facility] [address] [id number] [address] [place] [address] Dec, Encounter for other preproce dural examination Z01.818 [facility] [address] [id number] [address] [place] [address] Dec, [facility] [address] [id number] [address] [place] [address] Dec, Knee pain M25.569 [facility] [address] [id number] [address] [place] [address] 15 Dec, 2015 Pain in right knee M25.561 [facility] [address] [id number] [address] [place] [address] 14 Dec, 2015 [facility] [address] [id number] [address] [place] [address] Dec, [facility] [address] [id number] [address] [place] [address] Dec, Encounter for immunization Z 23 [facility] [address] [id number] [address] [place] [id number] Dec, [facility] [address] [id number] [address] [place] [id number] Dec, [facility] [address] [id number] [address] [place] [address] Nov, [facility] [address] [facility] [id number] [address] [place] [address] Nov, Hypertension, benign I10 ; C ervicalgia M54.2 ; Pain in right knee M25.561 and Pain in left knee M25.562 [place] [address] [facility] [id number] [address] [place] [address] Oct, [place] [address] [facility] [id number] [address] [place] [phone] Oct, [place] [address] [facility] [id number] [address] [place] [address] Oct, Osteoarthritis of both knees M17.0 [place] [address] [facility] [id number] [address] [place] [address] Oct, [place] [address] [facility] [id number] [address] [place] [address] Oct, Low back pain M54.5 [place] [address] [facility] [id number] [address] [place] [address] Oct, Low back pain M54.5 ; Sciati ca, unspecified side M54.30 ; Pain in right knee M25.561 ; Pain in left knee M25.562 ; Pain in right shoulder M25.511 and Pain in left shoulder M25.512 [place] [address] [facility] [id number] [address] [place] [address] Oct, [place] [address] [facility] [id number] [address] [place] [address] Sep, Pain in right hip M25.551 [place] [address] [facility] [id number] [address] [place] [address] Sep, Acute upper respiratory infe ction, unspecified J06.9 [place] [address] [facility] [id number] [address] [place] [address] Aug, Acute upper respiratory infe ction, unspecified J06.9 and Other viral agents as the cause of diseases classified elsewhere B97.89 [facility] [address] [id number] [address] [place] [address] Jul, Arthritis M19.90 [facility] [address] [id number] [address] [place] [address] Jun, Arthritis M19.90 ; Pain in r ight hip M25.551 ; Pain in left hip M25.552 ; Bilateral low back pain with sciatica, sciatica laterality unspecified M54.40 ; Neck pain M54.2 ; Upper back pain M54.9 and Knee pain, unspecified laterality M25.569 [place] [address] [id number] [address] [place] [address] May, Osteoarthritis of both knees 715.96 [place] [address] [id number] [address] [place] [phone] May, Rash 782.1 [place] [address] [id number] [address] [place] [address] Apr, Lumbar strain 847.2 [place] [address] [id number] [address] [place] [address] Apr, Rash 782.1 [place] [address] [facility] [id number] [address] [place] [address] Mar, Rash 782.1 [place] [address] [facility] [id number] [address] [place] [address] Feb, Rash 782.1 ; Hemorrhoids 455 .6 and Constipation 564.00 [facility] [address] [id number] [address] [place] [address] Feb, Osteoarthritis of both knees 715.96 [facility] [address] [id number] [address] [place] [address] January, [facility] [address] [id number] [address] [place] [address] Dec, [facility] [address] [id number] [address] [place] [address], [place] [address] 14 Dec, 2014 [facility] [address] [id number] [address] [place] [address], [place] [address] 13 Dec, 2014 [facility] [address] [id number] [address] [place] [address], [place] [address] 18 Nov, 2014 [facility] [address] [id number] [address] [place] [address], [place] [address] 18 Nov, 2014 [facility] [address] [id number] [address] [place] [address], [place] [address] 18 Nov, 2014 [facility] [address] [id number] [address] [place] [address], [place] [address] 18 Nov, 2014 [facility] [address] [id number] [address] [place] [address], [place] [address] 12 Nov, 2014 [facility] [address] [id number] [address] [place] [address], [place] [address] Nov, [facility] [address] [id number] [address] [place] [address], [place] [address] 25 Oct, 2014 [facility] [address] [id number] [address] [place] [address], [place] [address] Oct, [facility] [address] [id number] [address] [place] [address], [place] [address] Oct, [facility] [address] [id number] [address] [place] [address], [place] [address] Oct, [facility] [address] [id number] [address] [place] [address], [place] [address] Oct, [facility] [address] [id number] [address] [place] [address], [place] [address] Oct, [facility] [address] [id number] [address] [place] [address] 20 Oct, 2014 [facility] [address] [id number] [address] [place] [address] Oct, [facility] [address] [id number] [address] [place] [address], [place] [address] Oct, [facility] [address] [id number] [address] [place] [address], [place] [address] Oct, [facility] [address] [id number] [address] [place] [address], [place] [address] Oct, [facility] [address] [id number] [address] [place] [address], [place] [address] Sep, [facility] [address] [id number] [address] [place] [address], [place] [address] Sep, [facility] [address] [id number] [address] [place] [address], [place] [address] Sep, [facility] [address] [id number] [address] [place] [address], [place] [address] Sep, [facility] [address] [id number] [address] [place] [address], [place] [address] Sep, [facility] [address] [id number] [address] [place] [address], [place] [address] Sep, [facility] [address] [id number] [address] [place] [address], [place] [address] Aug, [facility] [address] [id number] [address] [place] [address], [place] [address] Aug, [facility] [address] [id number] [address] [place] [address], [place] [address] Aug, [facility] [address] [id number] [address] [place] [address], [place] [address] Aug, [facility] [address] [id number] [address] [place] [address], [place] [address] Aug, [facility] [address] [id number] [address] [place] [address], [place] [address] Aug, [facility] [address] [id number] [address] [place] [address], [place] [address] Aug, [facility] [address] [id number] [address] [place] [address], [place] [address] Aug, [facility] [address] [id number] [address] [place] [address], [place] [address] Aug, [facility] [address] [id number] [address] [place] [address], [place] [address] Aug, [facility] [address] [id number] [address] [place] [address], [place] [address] Jul, [facility] [address] [id number] [address] [place] [address], [place] [address] Jul, [facility] [address] [id number] [address] [place] [address], [place] [address] Jul, [facility] [address] [id number] [address] [place] [address], [place] [address] Jul, [facility] [address] [id number] [address] [place] [address], [place] [address] Jun, [facility] [address] [id number] [address] [place] [address], [place] [address] Jun, [facility] [address] [id number] [address] [place] [address], [place] [address] Jun, [facility] [address] [id number] [address] [place] [address], [place] [address] Jun, [facility] [address] [id number] [address] [place] [address], [place] [address] Jun, [facility] [address] [id number] [address] [place] [address], [place] [address] Jun, [facility] [address] [id number] [address] [place] [address], [place] [address] Jun, [facility] [address] [id number] [address] [place] [address], [place] [address] Jun, [facility] [address] [id number] [facility] [place] [address] 24 May, 2014 [facility] [address] [id number] [address] [place] [address], [place] [address] 24 May, 2014 [facility] [address] [id number] [address] [place] [address], [place] [address] 19 May, 2014 [facility] [address] [id number] [address] [place] [address], [place] [address] 19 May, 2014 [facility] [address] [id number] [address] [place] [address], [place] [address] 15 May, 2014 [facility] [address] [id number] [address] [place] [address], [place] [address] 15 May, 2014 [facility] [address] [id number] [address] [place] [address], [place] [address] 15 May, 2014 [facility] [address] [id number] [address] [place] [address], [place] [address] 15 May, 2014 [facility] [address] [id number] [address] [place] [address], [place] [address] Apr, [facility] [address] [id number] [address] [place] [address], [place] [address] Apr, [facility] [address] [id number] [address] [place] [address], [place] [address] Apr, [facility] [address] [id number] [address] [place] [address], [place] [address] Apr, [facility] [address] [id number] [address] [place] [address], [place] [address] Apr, [facility] [address] [id number] [address] [place] [address], [place] [address] Apr, [facility] [address] [id number] [address] [place] [address], [place] [address] Apr, [facility] [address] [id number] [address] [place] [address], [place] [address] Apr, [facility] [address] [id number] [address] [place] [address], [place] [address] Apr, [facility] [address] [id number] [address] [place] [address], [place] [address] Apr, [facility] [address] [id number] [address] [place] [address], [place] [address] Apr, [facility] [address] [id number] [address] [place] [address], [place] [address] Apr, [facility] [address] [id number] [address] [place] [address], [place] [address] Mar, [facility] [address] [id number] [address] [place] [address], [place] [address] Mar, [facility] [address] [id number] [address] [place] [address], [place] [address] Mar, [facility] [address] [id number] [address] [place] [address], [place] [address] Mar, [facility] [address] [id number] [address] [place] [address], [place] [address] Mar, [facility] [address] [id number] [address] [place] [address], [place] [address] Mar, [facility] [address] [id number] [address] [place] [address], [place] [address] Feb, [facility] [address] [id number] [address] [place] [address], [place] [address] Feb, [facility] [address] [id number] [address] [place] [address], [place] [address] Feb, [facility] [address] [id number] [address] [place] [address], [place] [address] Feb, [facility] [address] [id number] [address] [place] [address], [place] [address] Feb, [facility] [address] [id number] [facility] [place] [address] Feb, [facility] [address] [id number] [facility] [place] [address] Feb, [facility] [address] [id number] [address] [place] [address], [place] [address] Feb, [facility] [address] [id number] [address] [place] [address], [place] [address] Feb, [facility] [address] [id number] [address] [place] [address], [place] [address] Feb, [facility] [address] [id number] [address] [place] [address], [place] [address] Feb, [facility] [address] [id number] [address] [place] [address], [place] [address] Feb, [facility] [address] [id number] [address] [place] [address], [place] [address] Feb, [facility] [address] [id number] [address] [place] [address], [place] [address] Feb, [facility] [address] [id number] [address] [place] [address], [place] [address] January, [facility] [address] [id number] [address] [place] [address], [place] [address] January, [facility] [place] [address] [id number] [address] [place] [address], [place] [address] January, [facility] [place] [address] [id number] [address] [place] [address], [place] [address] January, [facility] [place] [facility] [address] [id number] [address] [place] [address], [place] [address] January, [facility] [address] [id number] [address] [place] [address], [place] [address] January, [facility] [address] [id number] [address] [place] [address], [place] [address] Dec, [facility] [address] [id number] [facility] [place] [address] Dec, [facility] [address] [id number] [facility] [place] [address] Dec, [facility] [address] [id number] [facility] [place] [address] Dec, [facility] [address] [id number] [address] [place] [address], [place] [address] Dec, [facility] [address] [id number] [facility] [place] [address] Dec, [facility] [address] [id number] [address] [place] [address], [place] [address] Dec, [facility] [address] [id number] [address] [place] [address], [place] [address] Dec, [facility] [address] [id number] [address] [place] [address], [place] [address] Nov, [facility] [address] [id number] [address] [place] [address], [place] [address] Nov, [facility] [address] [id number] [address] [place] [address], [place] [address] Nov, [facility] [address] [id number] [address] [place] [address], [place] [address] Nov, [facility] [address] [id number] [address] [place] [address], [place] [address] Nov, [facility] [address] [id number] [address] [place] [address], [place] [address] Nov, [facility] [address] [id number] [address] [place] [address], [place] [address] Nov, [facility] [address] [id number] [address] [place] [address], [place] [address] Nov, [facility] [place] [facility] [address] [id number] [address] [place] [address] Oct, [facility] [address] [id number] [address] [place] [address], [place] [address] Oct, [facility] [address] [id number] [address] [place] [address], [place] [address] Oct, [facility] [address] [id number] [address] [place] [address], [place] [address] Oct, [facility] [address] [id number] [address] [place] [address], [place] [address] Oct, [facility] [address] [id number] [address] [place] [address], [place] [address] Oct, [facility] [address] [id number] [address] [place] [address], [place] [address] Oct, [facility] [address] [id number] [address] [place] [address], [place] [address] Oct, [facility] [address] [id number] [address] [place] [address], [place] [address] Oct, [facility] [address] [id number] [address] [place] [address], [place] [address] Oct, [facility] [address] [id number] [address] [place] [address], [place] [address] Sep, [facility] [address] [id number] [address] [place] [address], [place] [address] Sep, [facility] [address] [id number] [address] [place] [address], [place] [address] Sep, [facility] [address] [id number] [address] [place] [address], [place] [address] Sep, [facility] [address] [id number] [address] [place] [address], [place] [address] Sep, [facility] [address] [id number] [address] [address] Sep, [facility] [address] [id number] [address] [place] [address], [place] [address] Aug, [facility] [address] [id number] [address] [place] [address], [place] [address] Aug, [facility] [address] [id number] [address] [place] [address], [place] [address] Aug, [facility] [address] [id number] [address] [place] [address] Aug, [facility] [address] [id number] [address] [place] [address], [place] [address] Aug, [facility] [address] [id number] [address] [place] [address] Aug, [facility] [address] [id number] [address] [place] [address], [place] [address] Aug, [facility] [address] [id number] [address] [place] [address] Aug, [facility] [address] [id number] [address] [place] [address] Jul, [facility] [address] [id number] [address] [place] [address], [place] [address] Jul, [facility] [address] [id number] [address] [place] [address] Jul, [facility] [address] [id number] [address] [place] [address] Jul, [facility] [address] [id number] [address] [place] [address], [place] [address] Jul, [facility] [address] [id number] [address] [place] [address] Jul, [facility] [address] [id number] [address] [place] [address] Jun, [facility] [address] [id number] [address] [place] [address], [place] [address] Jun, [facility] [address] [id number] [address] [place] [address], [place] [address] Jun, [facility] [address] [id number] [address] [place] [address], [place] [address] May, [facility] [address] [id number] [address] [place] [address], [place] [address] May, [facility] [address] [id number] [address] [place] [address], [place] [address] May, [facility] [address] [id number] [address] [place] [address], [place] [address] Apr, [facility] [address] [id number] [address] [place] [address], [place] [address] Apr, [facility] [address] [id number] [address] [place] [address], [place] [address] Apr, [facility] [address] [id number] [address] [place] [address], [place] [address] Apr, [facility] [address] [id number] [address] [place] [address], [place] [address] Mar, [facility] [address] [id number] [address] [place] [address], [place] [address] Mar, [facility] [address] [id number] [address] [place] [address], [place] [address] Mar, [facility] [address] [id number] [address] [place] [address], [place] [address] Mar, [facility] [address] [id number] [address] [place] [address], [place] [address] Feb, [facility] [address] [id number] [address] [place] [address], [place] [address] Feb, [facility] [address] [id number] [address] [place] [address], [place] [address] Feb, [facility] [address] [id number] [address] [place] [address], [place] [address] Feb, [facility] [address] [id number] [address] [place] [address], [place] [address] January, [facility] [address] [id number] [address] [place] [address], [place] [address] January, [facility] [address] [id number] [address] [place] [address], [place] [address] January, [facility] [address] [id number] [address] [place] [address], [place] [address] Nov, [facility] [address] [id number] [address] [place] [address], [place] [address] Nov, [facility] [address] [id number] [address] [place] [address], [place] [address] Oct, [facility] [address] [id number] [address] [place] [address], [place] [address] Oct, [facility] [address] [id number] [address] [place] [address], [place] [address] Oct, [facility] [address] [id number] [address] [place] [address], [place] [address] Oct, [facility] [address] [id number] [address] [place] [address], [place] [address] Sep, [facility] [address] [id number] [address] [place] [address], [place] [address] Sep, [facility] [address] [id number] [address] [place] [address], [place] [address] Sep, [facility] [address] [id number] [address] [place] [address], [place] [address] Aug, [facility] [address] [id number] [address] [place] [address], [place] [address] Aug, [facility] [address] [id number] [address] [place] [address], [place] [address] Aug, [facility] [address] [id number] [address] [place] [address], [place] [address] Aug, [facility] [address] [id number] [address] [place] [address], [place] [address] Aug, [facility] [address] [id number] [address] [place] [address], [place] [address] Aug, [facility] [address] [id number] [address] [place] [address], [place] [address] Jul, [facility] [address] [id number] [address] [place] [address], [place] [address] Jul, [facility] [address] [id number] [address] [place] [address], [place] [address] Jun, [facility] [address] [id number] [address] [place] [address], [place] [address] Jun, [facility] [address] [id number] [address] [place] [address], [place] [address] Jun, [facility] [address] [id number] [address] [place] [address], [place] [address] Apr, [facility] [address] [id number] [address] [place] [address], [place] [address] Apr, [facility] [address] [id number] [address] [place] [address], [place] [address] Mar, [facility] [address] [id number] [address] [place] [address], [place] [address] Mar, [facility] [address] [id number] [address] [place] [address], [place] [address] Mar, [facility] [address] [id number] [address] [place] [address], [place] [address] Mar, [facility] [address] [id number] [address] [place] [address], [place] [address] Feb, [facility] [address] [id number] [address] [place] [address], [place] [address] Feb, [facility] [address] [id number] [address] [place] [address], [place] [address] Feb, [facility] [address] [id number] [address] [place] [address], [place] [address] January, [facility] [address] [id number] [address] [place] [address], [place] [address] January, [facility] [address] [id number] [address] [place] [address], [place] [address] January, [facility] [address] [id number] [address] [place] [address], [place] [address] January, [facility] [address] [id number] [address] [place] [address], [place] [address] Dec, [facility] [address] [id number] [address] [place] [address], [place] [address] Dec, [facility] [address] [id number] [address] [place] [address], [place] [address] Nov, [facility] [address] [id number] [address] [place] [address], [place] [address] Nov, [facility] [address] [id number] [address] [place] [address], [place] [address] 16 Oct, 2011 [facility] [address] [id number] [address] [place] [address], [place] [address] Oct, [facility] [address] [id number] [address] [place] [address], [place] [address] Sep, [facility] [address] [id number] [address] [place] [address], [place] [address] Sep, [facility] [address] [id number] [address] [place] [address], [place] [address] Sep, [facility] [address] [id number] [address] [place] [address], [place] [address] Sep, [facility] [address] [id number] [address] [place] [address], [place] [address] 16 Aug, 2011 [facility] [address] [id number] [address] [place] [address], [place] [address] 16 Aug, 2011 [facility] [address] [id number] [address] [place] [address], [place] [address] Aug, [facility] [address] [id number] [address] [place] [address], [place] [address] Jul, [facility] [address] [id number] [address] [place] [address], [place] [address] Aug, [facility] [address] [id number] [address] [place] [address], [place] [address] Aug, [facility] [address] [id number] [address] [place] [address], [place] [address] Aug, [facility] [address] [id number] [address] [place] [address], [place] [address] Aug, [facility] [address] [id number] [address] [place] [address], [place] [address] Jul, [facility] [address] [id number] [address] [place] [address], [place] [address] Jul, [facility] [address] [id number] [address] [place] [address], [place] [address] Jul, [facility] [address] [id number] [address] [place] [address], [place] [address] Jun, [facility] [address] [id number] [address] [place] [address], [place] [address] Jun, [facility] [address] [id number] [address] [place] [address], [place] [address] Jun, [facility] [address] [id number] [address] [place] [address], [place] [address] Apr, [facility] [address] [id number] [address] [place] [address] Mar, IMMUNIZATIONS No Known Immunizations SOCIAL HISTORY Never Assessed REASON FOR VISIT kash-The patient is having right back/flank pain x 1 week that keeps gettin g progressively worse. --REE Hartley PLAN OF CARE Activity Details Follow Up prn Reason: VITAL SIGNS Height 66 in 2018-11-29 Weight 266 lbs 2018-11-29 Temperature 97.7 degrees Fahrenheit 2018-11-29 Heart Rate 70 bpm 2018-11-29 Respiratory Rate 20 2018-11-29 BMI 42.93 kg/m2 2018-11-29 Blood pressure systolic 134 mmHg 2018-11-29 Blood pressure diastolic 76 mmHg 2018-11-29 MEDICATIONS Medication Instructions Dosage Frequency Start Date End Date Duration S tatus Diclofenac Sodium 75 MG Orally Twice a day 1 tablet with food or mi lk 12h Sep, 30 day(s) Active Blood Press Monitor/M-L Cuff 1 as directed Jul, Not-Taking Lisinopril 40 MG Orally Once a day 1 tablet 24h 18 May, 2017 Active Amlodipine Besylate 5 mg Orally Once a day 1 tablet 24h Aug, 30 day(s) Active Viagra 100 mg Orally Once a day 1 tablet as needed 24h 10 Active Metformin HCl 1000 MG Orally 2 times a day 1 tablet with a meal 12h Active Voltaren 1 % Transdermal 2 times a day 1 application 12h 20 Nov, 9 7 days Active SudoGest 60 mg Orally 3 times a day 1 tablet as needed 8h 08 Jun, 018 5 days Not-Taking Proctosol HC 2.5 % Rectal Twice a day 1 application to affected are a 12h 16 Oct, 2016 30 days Active Metoprolol Tartrate 100 MG Orally Twice a day 1 tablet with food 12h Active Zoloft 50 MG Orally Once a day 1 tablet 24h 30 Active Cyclobenzaprine HCl 10 MG Orally TID PRN 1/2 tablet as needed Nov, 7 days Active Neurontin 800 MG Orally Three times a day 1 capsule 8h 09 Nov, 2016 30 day(s) Active Percocet 10-325 MG Orally 3 times a day 1 tablet as needed 8h 2 0 Nov, 2018 28 days Active RESULTS Name Result Date Reference Range UA LONG DIP (IN HOUSE) 2018-11-29 Lot # [id number] Exp date 05/2019 Clarity clear Color yellow Odor none GLU Negative ELÍAS Negative KET Negative SG >=1.030 BLO Negative pH 5.0 Protein Negative URO 0.2 NIT Negative CHRISTIE Negative Lot # [id number] Exp date 07/2019 PROCEDURES Procedure Date Ordered Result Body Site URINALYSIS, AUTO, W/O SCOPE November 29, 2018 INSTRUCTIONS MEDICATIONS ADMINISTERED No Known Medications MEDICAL [...]
--- OUTSIDE RECORDS SUMMARY | 2020-03-18 14:57 | XMS REPORT ---
Author Author George WAYNE Organization [facility] Address [address] [place] [address] Care Team Providers Care Can Top Setter Name Role Phone REYNA WAYNE Unavailable PROBLEMS Type Condition ICD9-CM Code WRN88-DB Code Onset Dates Condition S tatus SNOMED Code Problem Hypertension, benign I10 Active 19353464 Problem Other chronic pain G89.29 Active 8 2959568 Problem Lumbago with sciatica, unspecified side M54.40 Active 520479486 Problem Controlled type 2 diabetes m ellitus without complication, without long- term current use of insulin E11.9 Active 087641725 Problem Lumbago with sciatica, right side M54.41 Active 241297132 Problem Adjustment disorder with disturbance of emotion F4 3.29 Active 16110847 Problem MELE (obstructive sleep apnea) G47.33 Active 70974300 Problem Non morbid obesity E66.9 Active 4 29846751 Problem Hammer toe of left foot M20.42 Active 093040604 Problem Mood disorder F39 Active 880654 05 Problem Deformity of left foot M21.962 Active 131903862 Problem Lumbago with sciatica, left side M54.42 Active 901928202 Problem Erectile dysfunction due to diseases classified elsewhere N52.1 Active 061177859 Problem Obstructive sleep apnea syndrome G47.33 Active 82281526 Problem Type 2 diabetes mellitus wit h diabetic neuropathy, without long-term current use of insulin E11.40 Active 19513 006 Problem Essential hypertension I10 Active 53465104 ALLERGIES No Information ENCOUNTERS Encounter Location Date Diagnosis [facility] [id number] [address] [place] [address] January, [facility] [id number] [address] [place] [address] Dec, Acute diffuse otitis externa of left ear H60.312 [facility] [address] [address] [address] Nov, Viral URI J06.9 and Flu-like symptoms R68.89 [place] [address] [place] [address] Nov, Type 2 diabetes mellitus wit h diabetic neuropathy, without long- term current use of insulin E11.40 ; Family history of prostate cancer Z80.42 and Prostate cancer screening Z12.5 [place] [address] [address] Nov, [place] [address] [address] Sep, [place] [address] [address] Aug, [place] [address] [address] Jul, Lumbago with sciatica, unspe cified side M54.40 [place] [address] [address] Jun, Lumbago with sciatica, unspe cified side M54.40 [place] [address] [address] Jun, URI, acute J06.9 [place] [address] [address] May, Lumbago with sciatica, unspe cified side M54.40 [place] [address] [address] May, [address] [address] May, Type 2 diabetes mellitus wit h diabetic neuropathy, without long- term current use of insulin E11.40 and Hammer toe of left foot M20.42 [place] [address] [address] May, [facility] [address] [facility] [id number] [address] [place] [address] May, [facility] [address] [facility] [id number] [address] [place] [address] May, [facility] [address] [facility] [id number] [address] [place] [address] Apr, Lumbago with sciatica, unspe cified side M54.40 [facility] [address] [facility] [id number] [address] [place] [address] Apr, [facility] [address] [facility] [id number] [address] [place] [address] Apr, [address] [id number] [address] Apr, Hammer toe of left foot M20. 42 ; Chest pain R07.9 ; Preoperative examination Z01.818 and Morbid obesity E66.01 [facility] [address] [facility] [id number] [address] [place] [address] Apr, Morbid obesity E66.01 ; Bron chitis J40 and High risk medications (not anticoagulants) long-term use Z79.899 [facility] [address] [facility] [id number] [address] [place] [address] Apr, Lumbago with sciatica, unspe cified side M54.40 [facility] [address] [facility] [id number] [address] [place] [address] Apr, [facility] [address] [facility] [id number] [address] [place] [address] Mar, Lumbar neuritis M54.16 and M orbid obesity E66.01 [facility] [address] [facility] [id number] [address] [place] [address] Mar, [facility] [address] [facility] [id number] [address] [place] [address] Mar, [facility] [address] [id number] [address] [place] [address] Mar, Lumbago with sciatica, unspe cified side M54.40 [facility] [address] [facility] [id number] [address] [place] [address] Mar, Morbid obesity E66.01 ; Coug marco R05 ; 2+ pitting edema R60.9 and Controlled type 2 diabetes mellitus without complication, without long-term current use of insulin E11.9 [facility] [address] [id number] [address] [place] [address] Feb, [facility] [address] [id number] [address] [place] [address] Feb, Lumbago with sciatica, unspe cified side M54.40 [place] [address] [facility] [id number] [address] [place] [address] Feb, [facility] [address] [facility] [id number] [address] [place] [address] Feb, Controlled type 2 diabetes m ellitus without complication, without long-term current use of insulin E11.9 and Morbid obesity E66.01 [facility] [address] [id number] [address] [place] [address] January, Deformity of left foot M21.9 62 [facility] [address] [id number] [address] [place] [address] January, [facility] [address] [id number] [address] [place] [address] January, Lumbago with sciatica, unspe cified side M54.40 [facility] [address] [facility] [id number] [address] [place] [address] January, [facility] [address] [facility] [id number] [address] [place] [address] January, Lumbago with sciatica, unspe cified side M54.40 [place] [address] [facility] [id number] [address] [place] [address] January, [facility] [id number] [place] [address] January, Acute right-sided thoracic b ack pain M54.6 [place] [address] [place] [id number] [place] [address] January, Acute right-sided thoracic b ack pain M54.6 [facility] [id number] [place] [address] January, Chest pain, unspecified type R07.9 ; Morbid obesity E66.01 and Scabies B86 [place] [address] [place] [id number] [place] [address] Dec, Lumbago with sciatica, unspe cified side M54.40 [place] [address] [place] [id number] [address] [place] [address] Dec, Toenail fungus B35.1 [place] [address] [place] [id number] [address] [place] [address] Dec, Toenail fungus B35.1 [place] [address] [place] [id number] [place] [address] Dec, Acute right-sided thoracic b ack pain M54.6 [place] [address] [place] [id number] [place] [address] Dec, Lumbago with sciatica, unspe cified side M54.40 [place] [address] [place] [id number] [place] [address] Nov, Hammer toe of left foot M20. 42 ; Deformity of left foot M21.962 and Type 2 diabetes mellitus with diabetic neuropathy, without long-term current use of insulin E11.40 [facility] [address] [facility] [id number] [address] [place] [address] Nov, Acute right-sided thoracic b ack pain M54.6 ; Morbid obesity E66.01 and Rt flank pain R10.9 [place] [address] [address] Nov, Lumbago with sciatica, unspe cified side M54.40 [place] [address] [address] Oct, Lumbago with sciatica, unspe cified side M54.40 [place] [address] [address] Sep, Lumbago with sciatica, unspe cified side M54.40 [place] [address] [address] Sep, [place] [address] [address] Sep, BMI 40.0-44.9, adult Z68.41 ; Lumbago with sciatica, left side M54.42 ; Lumbago with sciatica, right side M54.41 and Other chronic pain G89.29 [place] [address] [address] Aug, Lumbago with sciatica, unspe cified side M54.40 [place] [address] [address] Aug, Type 2 diabetes mellitus wit h diabetic neuropathy, without long- term current use of insulin E11.40 ; Hammer toe of left foot M20.42 ; Hypertension, benign I10 and Frequent headaches R51 [place] [address] [address] Jul, Lumbago with sciatica, unspe cified side M54.40 [place] [address] [place] [id number] [place] [address] Jul, [place] [address] [place] [id number] [place] [address] Jul, Essential hypertension I10 a nd Controlled type 2 diabetes mellitus without complication, without long-term current use of insulin E11.9 [place] [id number] [facility] [id number] [address] [place] [address] Jul, Essential hypertension I10 ; Controlled type 2 diabetes mellitus without complication, without long-term current use of insulin E11.9 and BMI 40.0-44.9, adult Z68.41 [place] [address] [facility] [id number] [address] [place] [address] Jul, Dysfunction of left eustachi an tube H69.82 [place] [address] [facility] [id number] [address] [place] [address] Jul, Lumbago with sciatica, unspe cified side M54.40 [facility] [id number] [place] [id number] Jun, Dental examination Z01.20 [place] [address] [place] [id number] [place] [address] Jun, Lumbago with sciatica, unspe cified side M54.40 and Encounter for immunization Z23 [place] [address] [place] [id number] [place] [address] Jun, Dysfunction of left eustachi an tube H69.82 [place] [address] [facility] [id number] [place] [address] [id number] Jun, Dental examination Z01.20 [facility] [address] [facility] [id number] [address] [place] [address] Jun, Other chronic pain G89.29 [facility] [address] [id number] [address] [place] [address] [id number] Jun, Dental examination Z01.20 [facility] [address] [facility] [id number] [address] [place] [address] Jun, [place] [address] [place] [id number] [place] [address] Jun, Bronchitis J40 ; Dysfunction of left eustachian tube H69.82 and BMI 45.0-49.9, adult Z68.42 [place] [address] [place] [id number] [place] [address] Jun, Lumbago with sciatica, unspe cified side M54.40 [place] [address] [place] [id number] [place] [address] May, Type 2 diabetes mellitus wit h diabetic neuropathy, without long- term current use of insulin E11.40 and Hypertension, benign I10 [place] [address] [address] May, Lumbago with sciatica, unspe cified side M54.40 [facility] [address] [address] Apr, [place] [address] [address] Apr, Controlled type 2 diabetes m ellitus without complication, without long-term current use of insulin E11.9 ; Insect bite (nonvenomous), right ankle, initial encounter S90.561A ; Local infection of the skin and subcutaneous tissue, unspecified L08.9 ; Acute swimmer''s ear of left side H60.332 and BMI 45.0-49.9, adult Z68.42 [place] [address] [place] [id number] [place] [address] Apr, Lumbago with sciatica, unspe cified side M54.40 [place] [address] [address] Mar, [place] [address] [address] Mar, Lumbago with sciatica, unspe cified side M54.40 [place] [address] [place] [address] 14 Feb, 2018 Lumbago with sciatica, unspe cified side M54.40 [facility] [id number] [place] [address] Feb, BMI 45.0-49.9, adult Z68.42 and Obstructive sleep apnea syndrome G47.33 [facility] [address] [place] [address] January, Lumbar neuritis M54.16 [facility] [address] [place] [id number] [place] [address] January, Lumbago with sciatica, unspe cified side M54.40 [facility] [address] [place] [id number] [place] [address] Dec, Controlled type 2 diabetes m ellitus without complication, without long-term current use of insulin E11.9 ; Erectile dysfunction due to diseases classified elsewhere N52.1 and Mood disorder F39 [facility] [address] [place] [address] Dec, Lumbago with sciatica, unspe cified side M54.40 [facility] [address] [place] [id number] [place] [address] Dec, Obstructive sleep apnea synd luis G47.33 [facility] [address] [id number] [place] [address] Nov, Lumbago with sciatica, unspe cified side M54.40 ; Hypertension, benign I10 and Mood disorder F39 [facility] [address] [facility] [id number] [address] [place] [address] Nov, Other chronic pain G89.29 [facility] [address] [facility] [id number] [address] [place] [address] Nov, Lumbago with sciatica, unspe cified side M54.40 [facility] [address] [facility] [id number] [address] [place] [address] [id number] Nov, Dental examination Z01.20 [facility] [address] [id number] [address] [place] [address] Oct, [facility] [address] [id number] [address] [place] [address] Oct, Lumbago with sciatica, unspe cified side M54.40 [facility] [address] [id number] [address] [place] [address] Oct, Lumbago with sciatica, unspe cified side M54.40 [facility] [address] [id number] [address] [place] [address] Oct, [facility] [address] [facility] [id number] [address] [place] [address] Oct, [facility] [address] [facility] [id number] [address] [place] [id number] Oct, Dental examination Z01.20 [facility] [address] [id number] [address] [place] [address] Oct, [facility] [address] [facility] [id number] [address] [place] [address] Oct, Pain in right knee M25.561 [facility] [address] [id number] [address] [place] [address] Sep, [facility] [address] [facility] [id number] [address] [place] [address] Sep, Other chronic pain G89.29 [facility] [address] [id number] [address] [place] [address] Sep, Lumbago with sciatica, unspe cified side M54.40 [facility] [address] [id number] [address] [place] [address] Sep, [facility] [address] [facility] [id number] [address] [place] [address] Sep, Viral URI J06.9 and BMI 45.0 -49.9, adult Z68.42 [facility] [address] [address] Aug, Foreign body hand S60.559A a nd BMI 45.0-49.9, adult Z68.42 [place] [address] [address] Aug, [place] [address] [address] Aug, Lumbago with sciatica, unspe cified side M54.40 [place] [address] [address] Aug, Vertigo R42 ; Dysfunction of both eustachian tubes H69.83 ; Low back pain M54.5 and Other chronic pain G89.29 [facility] [address] [address] Aug, Dizziness R42 and Acute bila teral otitis media H66.93 [place] [address] [address] Aug, Lumbago with sciatica, unspe cified side M54.40 [facility] [address] [place] [id number] [place] [address] [id number] Jul, Dental examination Z01.20 [place] [address] [place] [id number] [place] [address] Jul, [place] [address] [address] Jul, [place] [address] [address] Jul, Dysfunction of both eustachi an tubes H69.83 [place] [address] [address] Jul, Controlled type 2 diabetes m ellitus without complication, without long-term current use of insulin E11.9 [facility] [address] [facility] [id number] [address] [place] [address] Jul, Controlled type 2 diabetes m ellitus without complication, without long-term current use of insulin E11.9 [facility] [address] [id number] [address] [place] [address] Jul, Dizziness R42 and BMI 40.0-4 4.9, adult Z68.41 [facility] [address] [id number] [address] [place] [address] Jul, Controlled type 2 diabetes m ellitus without complication, without long-term current use of insulin E11.9 [place] [address] [id number] [address] [place] [address] Jul, Lumbago with sciatica, unspe cified side M54.40 [facility] [id number] [place] [address] [id number] Jul, Dental examination Z01.20 [facility] [address] [id number] [address] [place] [address] Jun, [facility] [id number] [place] [address] [id number] Jun, Dental examination Z01.20 [place] [id number] [id number] [address] [place] [address] Jun, Controlled type 2 diabetes m ellitus without complication, without long-term current use of insulin E11.9 [facility] [address] [id number] [address] [place] [address] Jun, Lumbago with sciatica, unspe cified side M54.40 [facility] [address] [id number] [address] [place] [address] [id number] May, Dental examination Z01.20 [facility] [address] [id number] [address] [place] [address] May, Controlled type 2 diabetes m ellitus without complication, without long-term current use of insulin E11.9 [facility] [address] [id number] [address] [place] [address] [id number] 19 May, 2017 Dental examination Z01.20 [facility] [address] [id number] [address] [place] [address] 18 May, 2017 Bronchitis J40 ; Dry mouth R 68.2 ; Non morbid obesity E66.9 and Controlled type 2 diabetes mellitus without complication, without long-term current use of insulin E11.9 [facility] [address] [id number] [address] [place] [address] 16 May, 2017 Encounter for immunization Z 23 [facility] [address] [id number] [address] [place] [address] 07 May, 2017 Lumbago with sciatica, unspe cified side M54.40 [facility] [address] [id number] [address] [place] [id number] 05 May, 2017 [facility] [address] [id number] [address] [place] [address] [id number] Apr, Dental examination Z01.20 [facility] [address] [id number] [address] [place] [address] Apr, Lumbago with sciatica, unspe cified side M54.40 [facility] [address] [id number] [address] [place] [address] Mar, Lumbago with sciatica, left side M54.42 [facility] [address] [id number] [address] [place] [address] Mar, [facility] [address] [id number] [address] [place] [address] Mar, Lumbar neuritis M54.16 [facility] [address] [id number] [address] [place] [address] Mar, [facility] [address] [place] [id number] [address] [place] [address] [id number] Mar, Dental examination Z01.20 [place] [address] [facility] [id number] [address] [place] [address] Mar, MELE (obstructive sleep apnea ) G47.33 ; Neuropathy involving both lower extremities G57.93 and Frequent headaches R51 [place] [address] [id number] [address] [place] [address] Mar, Lumbago with sciatica, unspe cified side M54.40 [place] [address] [id number] [address] [place] [address] Feb, Lumbago with sciatica, unspe cified side M54.40 and Controlled type 2 diabetes mellitus without complication, without long-term current use of insulin E11.9 [place] [address] [facility] [id number] [address] [place] [address] January, Hypertension, benign I10 and Bilateral low back pain with sciatica, sciatica laterality unspecified M54.40 [place] [address] [id number] [address] [place] [phone] January, Hypertension, benign I10 ; L umbago with sciatica, unspecified side M54.40 ; Other chronic pain G89.29 and Controlled type 2 diabetes mellitus without complication, without long-term current use of insulin E11.9 [place] [address] [address] [facility] [id number] [address] [place] [phone] January, Lumbar neuritis M54.16 [place] [address] [id number] [address] [place] [phone] January, [place] [address] [address] [facility] [id number] [address] [place] [phone] Dec, Lumbago with sciatica, right side M54.41 and Lumbar neuritis M54.16 [place] [address] [address] [facility] [id number] [address] [place] [phone] Dec, Lumbar neuritis M54.16 [place] [address] [address] [place] [id number] [address] [place] [phone] Dec, Lumbar neuritis M54.16 [place] [address] [address] [facility] [id number] [address] [place] [phone] 16 Nov, 2016 Lumbar neuritis M54.16 ; Lum bago with sciatica, right side M54.41 ; Controlled type 2 diabetes mellitus without complication, without long-term current use of insulin E11.9 and Rash and nonspecific skin eruption R21 [place] [address] [place] [id number] [address] [place] [phone] Nov, Lumbar neuritis M54.16 and P alexi romany L23.7 [place] [address] [address] [place] [id number] [place] [phone] 16 Oct, 2016 Lumbar neuritis M54.16 ; Cou ghing R05 and Mood disorder F39 [place] [address] [address] [place] [id number] [address] [place] [address] Sep, Lumbago with sciatica, right side M54.41 [place] [address] [place] [id number] [place] [address] Sep, Adjustment disorder with dis turbance of emotion F43.29 and Pain management R52 [place] [address] [place] [id number] [address] [place] [address] Sep, [place] [address] [place] [id number] [address] [place] [address] Sep, [place] [address] [place] [id number] [address] [place] [address] Sep, Controlled type 2 diabetes evens reyna without complication, without long-term current use of insulin E11.9 and Lumbago with sciatica, unspecified side M54.40 [place] [address] [place] [id number] [address] [place] [address] Aug, Controlled type 2 diabetes evens reyna without complication, without long-term current use of insulin E11.9 ; Pain in right knee M25.561 ; Pain in left knee M25.562 ; Other chronic pain G89.29 ; Lumbago with sciatica, right side M54.41 ; Neck pain M54.2 and Encounter for immunization Z23 [facility] [address] [id number] [address] [place] [address] Jul, [facility] [address] [id number] [address] [place] [address] Jul, Controlled type 2 diabetes evens reyna without complication, without long-term current use of insulin E11.9 [facility] [address] [id number] [address] [place] [address] Jul, [facility] [address] [id number] [address] [place] [address] Jul, [facility] [address] [id number] [address] [place] [address] Jul, Lumbago with sciatica, left side M54.42 ; Lumbago with sciatica, right side M54.41 and Other chronic pain G89.29 [facility] [address] [id number] [address] [place] [address] Jul, [facility] [address] [id number] [address] [place] [address] Jul, [facility] [address] [id number] [address] [place] [address] Jun, [facility] [address] [id number] [address] [place] [address] Jun, Lumbago with sciatica, right side M54.41 and Other chronic pain G89.29 [facility] [address] [id number] [address] [place] [address] Jun, Cervicalgia M54.2 ; Lumbago with sciatica, unspecified side M54.40 and Other chronic pain G89.29 [facility] [address] [id number] [address] [place] [address] 15 May, 2016 Pain in right knee M25.561 ; Pain in left knee M25.562 and Other chronic pain G89.29 [facility] [address] [id number] [address] [place] [address] 14 May, 2016 [facility] [address] [id number] [address] [place] [address] Apr, Other chronic pain G89.29 an d Pain in right knee M25.561 [facility] [address] [id number] [address] [place] [address] Apr, Pain in right knee M25.561 [facility] [address] [id number] [address] [place] [address] Mar, [facility] [address] [id number] [address] [place] [id number] Mar, Mood disorder F39 and Contro lled type 2 diabetes mellitus without complication, without long-term current use of insulin E11.9 [facility] [address] [id number] [address] [place] [address] Mar, Pain in right knee M25.561 ; Pain in left knee M25.562 ; Other chronic pain G89.29 ; Obstructive sleep apnea syndrome G47.33 ; Mood disorder F39 and Controlled type 2 diabetes mellitus without complication, without long- term current use of insulin E11.9 [facility] [address] [id number] [address] [place] [address] Mar, [facility] [address] [id number] [address] [place] [id number] Feb, Dental examination Z01.20 [facility] [address] [id number] [address] [place] [address] Feb, [facility] [address] [id number] [address] [place] [address] Feb, Osteoarthritis of right knee , unspecified osteoarthritis type M17.9 [facility] [address] [id number] [address] [place] [phone] January, [facility] [address] [id number] [address] [place] [address] [id number] January, Dental examination Z01.20 [facility] [address] [id number] [address] [place] [address] January, [facility] [address] [id number] [address] [place] [address] [id number] January, Dental examination Z01.20 an d Caries K02.9 [facility] [address] [id number] [address] [place] [id number] Dec, Encounter for other preproce dural examination Z01.818 [facility] [address] [id number] [address] [place] [address] Dec, [facility] [address] [id number] [address] [place] [address] Dec, Knee pain M25.569 [facility] [address] [id number] [address] [place] [address] 15 Dec, 2015 Pain in right knee M25.561 [facility] [address] [id number] [address] [place] [id number] 14 Dec, 2015 [facility] [address] [id number] [address] [place] [address] Dec, [facility] [address] [id number] [address] [place] [address] Dec, Encounter for immunization Z 23 [facility] [address] [id number] [address] [place] [id number] Dec, [facility] [address] [id number] [address] [place] [address] Dec, [facility] [address] [id number] [address] [place] [id number] Nov, [facility] [address] [id number] [address] [place] [address] Nov, Hypertension, benign I10 ; C ervicalgia M54.2 ; Pain in right knee M25.561 and Pain in left knee M25.562 [place] [id number] [facility] [id number] [address] [place] [phone] Oct, [facility] [address] [facility] [id number] [address] [place] [phone] Oct, [facility] [address] [place] [id number] [place] [address] Oct, Osteoarthritis of both knees M17.0 [place] [address] [place] [id number] [place] [phone] Oct, [place] [address] [place] [id number] [place] [address] Oct, Low back pain M54.5 [place] [address] [place] [id number] [place] [phone] Oct, Low back pain M54.5 ; Sciati ca, unspecified side M54.30 ; Pain in right knee M25.561 ; Pain in left knee M25.562 ; Pain in right shoulder M25.511 and Pain in left shoulder M25.512 [place] [address] [place] [id number] [address] [place] [address] Oct, [place] [address] [place] [id number] [address] [place] [address] Sep, Pain in right hip M25.551 [place] [address] [place] [id number] [address] [place] [id number] Sep, Acute upper respiratory infe ction, unspecified J06.9 [place] [address] [place] [id number] [address] [place] [id number] Aug, Acute upper respiratory infe ction, unspecified J06.9 and Other viral agents as the cause of diseases classified elsewhere B97.89 [facility] [address] [id number] [address] [place] [id number] Jul, Arthritis M19.90 [facility] [address] [id number] [address] [place] [address] Jun, Arthritis M19.90 ; Pain in r ight hip M25.551 ; Pain in left hip M25.552 ; Bilateral low back pain with sciatica, sciatica laterality unspecified M54.40 ; Neck pain M54.2 ; Upper back pain M54.9 and Knee pain, unspecified laterality M25.569 [facility] [address] [id number] [address] [place] [address] May, Osteoarthritis of both knees 715.96 [facility] [address] [id number] [address] [place] [address] May, Rash 782.1 [place] [address] [facility] [id number] [address] [place] [address] Apr, Lumbar strain 847.2 [facility] [address] [id number] [address] [place] [address] Apr, Rash 782.1 [facility] [address] [facility] [id number] [address] [place] [address] Mar, Rash 782.1 [facility] [address] [facility] [id number] [address] [place] [phone] Feb, Rash 782.1 ; Hemorrhoids 455 .6 and Constipation 564.00 [facility] [address] [id number] [address] [place] [address] Feb, Osteoarthritis of both knees 715.96 [facility] [address] [id number] [address] [place] [id number] January, [facility] [address] [facility] [id number] [address] [place] [phone] Dec, [facility] [address] [id number] [address] [place] [id number] 14 Dec, 2014 [facility] [address] [id number] [address] [place] [address], [place] [address] 13 Dec, 2014 [facility] [address] [id number] [address] [place] [address], [place] [address] 18 Nov, 2014 [facility] [address] [id number] [address] [place] [address], [place] [address] 18 Nov, 2014 [facility] [address] [id number] [address] [place] [address], [place] [address] 18 Nov, 2014 [facility] [address] [id number] [address] [place] [address], [place] [address] 18 Nov, 2014 [facility] [address] [id number] [address] [place] [address], [place] [address] Nov, [facility] [address] [id number] [address] [place] [address], [place] [address] Nov, [facility] [address] [id number] [address] [place] [address], [place] [address] Oct, [facility] [address] [id number] [address] [place] [address], [place] [address] Oct, [facility] [address] [id number] [address] [place] [address], [place] [address] Oct, [facility] [address] [id number] [address] [place] [address], [place] [address] Oct, 2014 [facility] [address] [id number] [address] [place] [address], [place] [address] Oct, 2014 [facility] [address] [id number] [address] [place] [address], [place] [address] Oct, 2014 [facility] [address] [id number] [address] [place] [id number] Oct, 2014 [facility] [address] [id number] [address] [place] [phone] Oct, [facility] [address] [id number] [address] [place] [address], [place] [address] Oct, 2014 [facility] [address] [id number] [address] [place] [address], [place] [address] Oct, [facility] [address] [id number] [address] [place] [address], [place] [address] Oct, [facility] [address] [id number] [address] [place] [address], [place] [address] Sep, [facility] [address] [id number] [address] [place] [address], [place] [address] Sep, [facility] [address] [id number] [address] [place] [address], [place] [address] Sep, [facility] [address] [id number] [address] [place] [address], [place] [address] Sep, [facility] [address] [id number] [address] [place] [address], [place] [address] Sep, [facility] [address] [id number] [address] [place] [address], [place] [address] Sep, [facility] [address] [id number] [address] [place] [address], [place] [address] Aug, [facility] [address] [id number] [address] [place] [address], [place] [address] Aug, [facility] [address] [id number] [address] [place] [address], [place] [address] Aug, [facility] [address] [id number] [address] [place] [address], [place] [address] Aug, [facility] [address] [id number] [address] [place] [address], [place] [address] Aug, [facility] [address] [id number] [address] [place] [address], [place] [address] Aug, [facility] [address] [id number] [address] [place] [address], [place] [address] 05 Aug, 2014 [facility] [address] [id number] [address] [place] [address], [place] [address] Aug, [facility] [address] [id number] [address] [place] [address], [place] [address] Aug, [facility] [address] [id number] [address] [place] [address], [place] [address] Aug, [facility] [address] [id number] [address] [place] [address], [place] [address] Jul, [facility] [address] [id number] [address] [place] [address], [place] [address] Jul, [facility] [address] [id number] [address] [place] [address], [place] [address] Jul, [facility] [address] [id number] [address] [place] [address], [place] [address] Jul, [facility] [address] [id number] [address] [place] [address], [place] [address] Jun, [facility] [address] [id number] [address] [place] [address], [place] [address] Jun, [facility] [address] [id number] [address] [place] [address], [place] [address] Jun, [facility] [address] [id number] [address] [place] [address], [place] [address] Jun, [facility] [address] [id number] [address] [place] [address], [place] [address] Jun, [facility] [address] [id number] [address] [place] [address], [place] [address] Jun, [facility] [address] [id number] [address] [place] [address], [place] [address] Jun, [facility] [address] [id number] [address] [place] [phone] Jun, [facility] [address] [id number] [facility] [place] [address] 24 May, 2013 [facility] [address] [id number] [address] [place] [address], [place] [address] 24 May, 2014 [facility] [address] [id number] [address] [place] [address], [place] [address] 19 May, 2014 [facility] [address] [id number] [address] [place] [address], [place] [address] 19 May, 2014 [facility] [address] [id number] [address] [place] [address], [place] [address] 15 May, 2014 [facility] [address] [id number] [address] [place] [address], [place] [address] 15 May, 2014 [facility] [address] [id number] [address] [place] [address], [place] [address] 15 May, 2014 [facility] [address] [id number] [address] [place] [address], [place] [address] May, [facility] [address] [id number] [address] [place] [address], [place] [address] Apr, [facility] [address] [id number] [address] [place] [address], [place] [address] Apr, [facility] [address] [id number] [address] [place] [address], [place] [address] Apr, [facility] [address] [id number] [address] [place] [address], [place] [address] Apr, [facility] [address] [id number] [address] [place] [address], [place] [address] Apr, [facility] [address] [id number] [address] [place] [address], [place] [address] Apr, [facility] [address] [id number] [address] [place] [address], [place] [address] Apr, [facility] [address] [id number] [address] [place] [address], [place] [address] Apr, [facility] [address] [id number] [address] [place] [address], [place] [address] Apr, [facility] [address] [id number] [address] [place] [address], [place] [address] Apr, [facility] [address] [id number] [address] [place] [address], [place] [address] Apr, [facility] [address] [id number] [address] [place] [address], [place] [address] Apr, [facility] [address] [id number] [address] [place] [address], [place] [address] Mar, [facility] [address] [id number] [address] [place] [address], [place] [address] Mar, [facility] [address] [id number] [address] [place] [address], [place] [address] Mar, [facility] [address] [id number] [address] [place] [address], [place] [address] Mar, [facility] [address] [id number] [address] [place] [address], [place] [address] Mar, [facility] [address] [id number] [address] [place] [address], [place] [address] Mar, [facility] [address] [id number] [address] [place] [address], [place] [address] Feb, [facility] [address] [id number] [address] [place] [address], [place] [address] Feb, [facility] [address] [id number] [address] [place] [address], [place] [address] Feb, [facility] [address] [id number] [address] [place] [address], [place] [address] Feb, [facility] [address] [id number] [address] [place] [address], [place] [address] Feb, [facility] [address] [id number] [facility] [place] [address] 16 Feb, 2014 [facility] [address] [id number] [address] [place] [address], [place] [address] Feb, [facility] [address] [id number] [address] [place] [address], [place] [address] Feb, [facility] [address] [id number] [address] [place] [address], [place] [address] Feb, [facility] [address] [id number] [address] [place] [address], [place] [address] Feb, [facility] [address] [id number] [address] [place] [address], [place] [address] Feb, [facility] [address] [id number] [address] [place] [address], [place] [address] Feb, [facility] [address] [id number] [address] [place] [address], [place] [id number] Feb, [facility] [address] [id number] [address] [place] [address], [place] [id number] Feb, [facility] [address] [id number] [address] [place] [address], [place] [address] January, [facility] [address] [id number] [address] [place] [address], [place] [id number] January, [facility] [address] [id number] [address] [place] [address], [place] [id number] January, [facility] [address] [id number] [address] [place] [address], [place] [address] January, [facility] [address] [id number] [address] [place] [address], [place] [address] January, [facility] [address] [id number] [address] [place] [address], [place] [address] January, [facility] [address] [id number] [address] [place] [address], [place] [address] Dec, [facility] [address] [id number] [facility] [place] [address] Dec, [facility] [address] [id number] [address] [place] [address], [place] [address] Dec, [facility] [address] [id number] [address] [place] [address], [place] [address] Dec, [facility] [address] [id number] [address] [place] [address], [place] [id number] Dec, [facility] [address] [id number] [address] [place] [address], [place] [address] Dec, [facility] [address] [id number] [address] [place] [address], [place] [address] Dec, [facility] [address] [id number] [address] [place] [address], [place] [address] Dec, [facility] [address] [id number] [address] [place] [address], [place] [address] Nov, [facility] [address] [id number] [address] [place] [address], [place] [id number] Nov, [facility] [address] [id number] [address] [place] [address], [place] [address] Nov, [facility] [address] [id number] [address] [place] [address], [place] [address] Nov, [facility] [address] [id number] [address] [place] [address], [place] [address] Nov, [facility] [address] [id number] [address] [place] [address], [place] [address] Nov, [facility] [address] [id number] [address] [place] [address], [place] [address] Nov, [facility] [address] [id number] [address] [place] [address], [place] [address] Nov, [facility] [address] [id number] [address] [place] [address], [place] [address] Oct, [facility] [address] [id number] [address] [place] [address], [place] [address] Oct, [facility] [address] [id number] [address] [place] [address], [place] [address] Oct, [facility] [address] [id number] [address] [place] [address], [place] [id number] Oct, [facility] [address] [id number] [address] [place] [address], [place] [address] Oct, [facility] [address] [id number] [address] [place] [address], [place] [id number] Oct, [facility] [address] [id number] [address] [place] [address], [place] [address] Oct, [facility] [address] [id number] [address] [place] [address], [place] [id number] Oct, [facility] [address] [id number] [address] [place] [address], [place] [address] Oct, [facility] [address] [id number] [address] [place] [address], [place] [address] Oct, [facility] [address] [id number] [address] [place] [address], [place] [address] Sep, [facility] [address] [id number] [address] [place] [address], [place] [address] Sep, [facility] [address] [id number] [address] [place] [address], [place] [address] Sep, [facility] [address] [id number] [address] [place] [address], [place] [address] Sep, [facility] [address] [id number] [address] [place] [address], [place] [address] Sep, [facility] [address] [id number] [address] [place] [address], [place] [id number] Sep, [facility] [address] [address] [id number] [address] [place] [address], [place] [address] Aug, [facility] [address] [id number] [address] [place] [address], [place] [address] Aug, [facility] [address] [id number] [address] [place] [address], [place] [address] Aug, [facility] [address] [id number] [address] [place] [address], [place] [address] Aug, [facility] [address] [id number] [address] [place] [address], [place] [address] Aug, [facility] [address] [id number] [address] [place] [address], [place] [address] Aug, [facility] [address] [id number] [address] [place] [address], [place] [address] Aug, [facility] [address] [id number] [address] [place] [address], [place] [address] Aug, [facility] [address] [id number] [address] [place] [address], [place] [address] Jul, [facility] [address] [id number] [address] [place] [address], [place] [address] Jul, [facility] [address] [id number] [address] [place] [address], [place] [address] Jul, [facility] [address] [id number] [address] [place] [address], [place] [address] Jul, [facility] [address] [id number] [address] [place] [address], [place] [address] Jul, [facility] [address] [id number] [address] [place] [address], [place] [address] Jul, [facility] [address] [id number] [address] [place] [address], [place] [address] Jun, [facility] [address] [id number] [address] [place] [address] [place] [address] Jun, [facility] [address] [id number] [address] [place] [address], [place] [address] Jun, [facility] [address] [id number] [address] [place] [address], [place] [address] May, [facility] [address] [id number] [address] [place] [address], [place] [address] May, [facility] [address] [id number] [address] [place] [address], [place] [address] May, [facility] [address] [id number] [address] [place] [address], [place] [address] Apr, [facility] [address] [id number] [address] [place] [address], [place] [address] Apr, [facility] [address] [id number] [address] [place] [address], [place] [address] Apr, [facility] [address] [id number] [address] [place] [address], [place] [address] Apr, [facility] [address] [id number] [address] [place] [address], [place] [address] Mar, [facility] [address] [id number] [address] [place] [address], [place] [address] Mar, [facility] [address] [id number] [address] [place] [address], [place] [address] Mar, [facility] [address] [id number] [address] [place] [address], [place] [address] Mar, [facility] [address] [id number] [address] [place] [address], [place] [address] Feb, [facility] [address] [id number] [address] [place] [address], [place] [address] Feb, [facility] [address] [id number] [address] [place] [address], [place] [address] Feb, [facility] [address] [id number] [address] [place] [address], [place] [address] Feb, [facility] [address] [id number] [address] [place] [address], [place] [address] January, [facility] [address] [id number] [address] [place] [address], [place] [address] January, [facility] [address] [id number] [address] [place] [address], [place] [address] January, [facility] [address] [id number] [address] [place] [address], [place] [address] Nov, [facility] [address] [id number] [address] [place] [address], [place] [address] Nov, [facility] [address] [id number] [address] [place] [address], [place] [address] Oct, [facility] [address] [id number] [address] [place] [address], [place] [address] Oct, [facility] [address] [id number] [address] [place] [address], [place] [address] Oct, [facility] [address] [id number] [address] [place] [address], [place] [address] Oct, [facility] [address] [id number] [address] [place] [address], [place] [address] Sep, [facility] [address] [id number] [address] [place] [address], [place] [address] Sep, [facility] [address] [id number] [address] [place] [address], [place] [address] Sep, [facility] [address] [id number] [address] [place] [address], [place] [address] Aug, [facility] [address] [id number] [address] [place] [address], [place] [address] Aug, [facility] [address] [id number] [address] [place] [address], [place] [address] Aug, [facility] [address] [id number] [address] [place] [address], [place] [address] Aug, [facility] [address] [id number] [address] [place] [address], [place] [address] Aug, [facility] [address] [id number] [address] [place] [address], [place] [address] Aug, [facility] [address] [id number] [address] [place] [address], [place] [address] Jul, [facility] [address] [id number] [address] [place] [address], [place] [address] Jul, [facility] [address] [id number] [address] [place] [address], [place] [address] Jun, [facility] [address] [id number] [address] [place] [address], [place] [address] Jun, [facility] [address] [id number] [address] [place] [address], [place] [address] Jun, [facility] [address] [id number] [address] [place] [address], [place] [address] Apr, [facility] [address] [id number] [address] [place] [address], [place] [address] Apr, [facility] [address] [id number] [address] [place] [address], [place] [address] Mar, [facility] [address] [id number] [address] [place] [address] Mar, [facility] [address] [id number] [address] [place] [address], [place] [address] Mar, [facility] [address] [id number] [address] [place] [address], [place] [address] Mar, [facility] [address] [id number] [address] [place] [address], [place] [address] Feb, [facility] [address] [id number] [address] [place] [address], [place] [address] Feb, [facility] [address] [id number] [address] [place] [address], [place] [address] Feb, [facility] [address] [id number] [address] [place] [address], [place] [address] January, [facility] [address] [id number] [address] [place] [address], [place] [address] January, [facility] [address] [id number] [address] [place] [address], [place] [address] January, [facility] [address] [id number] [address] [place] [address], [place] [address] January, [facility] [address] [id number] [address] [place] [address], [place] [address] Dec, [facility] [address] [id number] [address] [place] [address], [place] [address] Dec, [facility] [address] [id number] [address] [place] [address], [place] [address] Nov, [facility] [address] [id number] [address] [place] [address], [place] [address] Nov, [facility] [address] [id number] [address] [place] [address], [place] [address] 16 Oct, 2011 [facility] [address] [id number] [address] [place] [address], [place] [address] Oct, [facility] [address] [id number] [address] [place] [address], [place] [address] Sep, [facility] [address] [id number] [address] [place] [address], [place] [address] Sep, [facility] [address] [id number] [address] [place] [address], [place] [address] Sep, [facility] [address] [id number] [address] [place] [address], [place] [address] Sep, [facility] [address] [id number] [address] [place] [address], [place] [address] 16 Aug, 2011 [facility] [address] [id number] [address] [place] [address], [place] [address] 16 Aug, 2011 [facility] [address] [id number] [address] [place] [address], [place] [address] Aug, [facility] [address] [id number] [address] [place] [address], [place] [address] Jul, [facility] [address] [id number] [address] [place] [address], [place] [address] Aug, [facility] [address] [id number] [address] [place] [address], [place] [address] Aug, [facility] [address] [id number] [address] [place] [address], [place] [address] Aug, [facility] [address] [id number] [address] [place] [address], [place] [address] Aug, [facility] [address] [id number] [address] [place] [address], [place] [address] Jul, [facility] [address] [id number] [address] [place] [address], [place] [address] Jul, [facility] [address] [id number] [address] [place] [address], [place] [address] Jul, [facility] [address] [id number] [address] [place] [id number] Jun, [facility] [address] [id number] [address] [place] [address], [place] [address] Jun, [facility] [address] [id number] [address] [place] [address], [place] [address] Jun, [facility] [address] [id number] [address] [place] [address], [place] [address] Apr, [facility] [address] [id number] [address] [place] [address] Mar, IMMUNIZATIONS No Known Immunizations SOCIAL HISTORY [...]
--- OUTSIDE RECORDS SUMMARY | 2020-03-18 14:57 | XMS REPORT ---
Author Author George WAYNE Organization [facility] Address [address] [place] [address] Care Team Providers Care Casing Fluid Tender Name Role Phone REYNA WAYNE Unavailable PROBLEMS Type Condition ICD9-CM Code CZB88-GS Code Onset Dates Condition S tatus SNOMED Code Problem Hypertension, benign I10 Active 28225702 Problem Other chronic pain G89.29 Active 8 4158565 Problem Lumbago with sciatica, unspecified side M54.40 Active 706972808 Problem Controlled type 2 diabetes m ellitus without complication, without long- term current use of insulin E11.9 Active 138074518 Problem Lumbago with sciatica, right side M54.41 Active 730739466 Problem Adjustment disorder with disturbance of emotion F4 3.29 Active 56846288 Problem MELE (obstructive sleep apnea) G47.33 Active 35341655 Problem Non morbid obesity E66.9 Active 4 01476289 Problem Hammer toe of left foot M20.42 Active 596957186 Problem Mood disorder F39 Active 036450 05 Problem Deformity of left foot M21.962 Active 629377167 Problem Lumbago with sciatica, left side M54.42 Active 299061209 Problem Erectile dysfunction due to diseases classified elsewhere N52.1 Active 189027571 Problem Obstructive sleep apnea syndrome G47.33 Active 27661004 Problem Type 2 diabetes mellitus wit h diabetic neuropathy, without long-term current use of insulin E11.40 Active 27004 006 Problem Essential hypertension I10 Active 64608056 ALLERGIES No Information ENCOUNTERS Encounter Location Date Diagnosis [facility] [address] [facility] [id number] [address] [place] [address] 13 Dec, 2019 Acute diffuse otitis externa of left ear H60.312 [facility] [address] [facility] [id number] [address] [place] [id number] 18 Nov, 2019 Viral URI J06.9 and Flu-like symptoms R68.89 [place] [address] [facility] [id number] [address] [place] [address] 09 Nov, 2019 Type 2 diabetes mellitus wit h diabetic neuropathy, without long- term current use of insulin E11.40 ; Family history of prostate cancer Z80.42 and Prostate cancer screening Z12.5 [place] [address] [place] [id number] [address] [place] [address] Nov, [place] [address] [place] [id number] [address] [place] [address] Sep, [place] [address] [place] [id number] [address] [place] [address] Aug, [place] [address] [place] [id number] [place] [address] Jul, Lumbago with sciatica, unspe cified side M54.40 [place] [address] [place] [id number] [address] [place] [address] Jun, Lumbago with sciatica, unspe cified side M54.40 [place] [address] [place] [id number] [address] [place] [address] Jun, URI, acute J06.9 [place] [address] [place] [id number] [address] [place] [address] May, Lumbago with sciatica, unspe cified side M54.40 [place] [address] [facility] [id number] [address] [place] [address] May, [place] [address] [place] [id number] [address] [place] [address] 12 May, 2019 Type 2 diabetes mellitus wit h diabetic neuropathy, without long- term current use of insulin E11.40 and Hammer toe of left foot M20.42 [place] [address] [facility] [id number] [address] [place] [address] May, [place] [address] [place] [id number] [address] [place] [address] May, [facility] [address] [place] [id number] [address] [place] [address] May, [facility] [address] [place] [id number] [address] [place] [address] Apr, Lumbago with sciatica, unspe cified side M54.40 [facility] [address] [place] [id number] [address] [place] [address] Apr, [facility] [address] [place] [id number] [address] [place] [address] Apr, [address] [place] [address] Apr, Hammer toe of left foot M20. 42 ; Chest pain R07.9 ; Preoperative examination Z01.818 and Morbid obesity E66.01 [place] [address] [place] [id number] [address] [place] [address] Apr, Morbid obesity E66.01 ; Bron chitis J40 and High risk medications (not anticoagulants) long-term use Z79.899 [place] [address] [place] [id number] [address] [place] [address] Apr, Lumbago with sciatica, unspe cified side M54.40 [facility] [address] [place] [id number] [address] [place] [address] Apr, [facility] [address] [place] [id number] [address] [place] [address] Mar, Lumbar neuritis M54.16 and M orbid obesity E66.01 [facility] [address] [place] [id number] [address] [place] [address] Mar, [facility] [address] [place] [id number] [address] [place] [address] Mar, [facility] [address] [place] [id number] [address] [place] [address] Mar, Lumbago with sciatica, unspe cified side M54.40 [facility] [address] [id number] [address] [place] [address] Mar, Morbid obesity E66.01 ; Gabe lara R05 ; 2+ pitting edema R60.9 and Controlled type 2 diabetes mellitus without complication, without long-term current use of insulin E11.9 [facility] [address] [id number] [address] [place] [address] Feb, [facility] [address] [id number] [address] [place] [address] Feb, Lumbago with sciatica, unspe cified side M54.40 [facility] [address] [id number] [address] [place] [address] Feb, [facility] [address] [id number] [address] [place] [address] Feb, Controlled type 2 diabetes m ellitus without complication, without long-term current use of insulin E11.9 and Morbid obesity E66.01 [facility] [address] [id number] [address] [place] [address] January, Deformity of left foot M21.9 62 [facility] [address] [id number] [address] [place] [address] January, [facility] [address] [id number] [address] [place] [address] January, Lumbago with sciatica, unspe cified side M54.40 [facility] [address] [id number] [address] [place] [address] January, [facility] [address] [id number] [address] [place] [address] January, Lumbago with sciatica, unspe cified side M54.40 [facility] [address] [id number] [address] [place] [address] January, [facility] [address] [facility] [id number] [address] [place] [address] January, Acute right-sided thoracic b ack pain M54.6 [facility] [address] [place] [id number] [address] [place] [address] January, Acute right-sided thoracic b ack pain M54.6 [facility] [address] [address] January, Chest pain, unspecified type R07.9 ; Morbid obesity E66.01 and Scabies B86 [facility] [address] [place] [id number] [address] [place] [address] Dec, Lumbago with sciatica, unspe cified side M54.40 [place] [address] [address] Dec, Toenail fungus B35.1 [facility] [address] [place] [id number] [address] [place] [address] Dec, Toenail fungus B35.1 [facility] [address] [address] Dec, Acute right-sided thoracic b ack pain M54.6 [place] [address] [place] [id number] [address] [place] [address] Dec, Lumbago with sciatica, unspe cified side M54.40 [facility] [address] [place] [id number] [address] [place] [address] Nov, Hammer toe of left foot M20. 42 ; Deformity of left foot M21.962 and Type 2 diabetes mellitus with diabetic neuropathy, without long-term current use of insulin E11.40 [facility] [address] [facility] [id number] [address] [place] [address] Nov, Acute right-sided thoracic b ack pain M54.6 ; Morbid obesity E66.01 and Rt flank pain R10.9 [place] [address] [facility] [id number] [address] [place] [address] Nov, Lumbago with sciatica, unspe cified side M54.40 [place] [address] [place] [id number] [address] [place] [address] Oct, Lumbago with sciatica, unspe cified side M54.40 [place] [address] [place] [id number] [place] [address] Sep, Lumbago with sciatica, unspe cified side M54.40 [place] [address] [place] [id number] [address] [place] [address] Sep, [place] [address] [place] [id number] [place] [address] Sep, BMI 40.0-44.9, adult Z68.41 ; Lumbago with sciatica, left side M54.42 ; Lumbago with sciatica, right side M54.41 and Other chronic pain G89.29 [place] [address] [place] [id number] [address] [place] [address] Aug, Lumbago with sciatica, unspe cified side M54.40 [place] [address] [place] [id number] [address] [place] [address] Aug, Type 2 diabetes mellitus wit h diabetic neuropathy, without long- term current use of insulin E11.40 ; Hammer toe of left foot M20.42 ; Hypertension, benign I10 and Frequent headaches R51 [place] [address] [place] [id number] [address] [place] [address] Jul, Lumbago with sciatica, unspe cified side M54.40 [place] [address] [place] [id number] [address] [place] [address] Jul, [place] [address] [place] [id number] [address] [place] [address] Jul, Essential hypertension I10 a nd Controlled type 2 diabetes mellitus without complication, without long-term current use of insulin E11.9 [facility] [address] [facility] [id number] [address] [place] [address] Jul, Essential hypertension I10 ; Controlled type 2 diabetes mellitus without complication, without long-term current use of insulin E11.9 and BMI 40.0-44.9, adult Z68.41 [facility] [address] [facility] [id number] [address] [place] [address] Jul, Dysfunction of left eustachi an tube H69.82 [facility] [address] [id number] [address] [place] [address] Jul, Lumbago with sciatica, unspe cified side M54.40 [facility] [address] [id number] [address] [place] [address] [id number] Jun, Dental examination Z01.20 [facility] [address] [facility] [id number] [address] [place] [address] Jun, Lumbago with sciatica, unspe cified side M54.40 and Encounter for immunization Z23 [facility] [address] [facility] [id number] [address] [place] [address] Jun, Dysfunction of left eustachi an tube H69.82 [place] [id number] [facility] [id number] [place] [address] [id number] Jun, Dental examination Z01.20 [facility] [address] [id number] [address] [place] [address] Jun, Other chronic pain G89.29 [facility] [address] [id number] [address] [place] [address] [id number] Jun, Dental examination Z01.20 [facility] [address] [id number] [address] [place] [address] Jun, [facility] [address] [id number] [address] [place] [address] Jun, Bronchitis J40 ; Dysfunction of left eustachian tube H69.82 and BMI 45.0-49.9, adult Z68.42 [facility] [address] [place] [id number] [address] [place] [address] Jun, Lumbago with sciatica, unspe cified side M54.40 [facility] [address] [place] [id number] [address] [place] [address] May, Type 2 diabetes mellitus wit h diabetic neuropathy, without long- term current use of insulin E11.40 and Hypertension, benign I10 [facility] [address] [place] [id number] [address] [place] [address] May, Lumbago with sciatica, unspe cified side M54.40 [facility] [address] [place] [id number] [address] [place] [address] Apr, [facility] [address] [address] Apr, Controlled type 2 diabetes m ellitus without complication, without long-term current use of insulin E11.9 ; Insect bite (nonvenomous), right ankle, initial encounter S90.561A ; Local infection of the skin and subcutaneous tissue, unspecified L08.9 ; Acute swimmer''s ear of left side H60.332 and BMI 45.0-49.9, adult Z68.42 [place] [address] [place] [id number] [address] [place] [address] Apr, Lumbago with sciatica, unspe cified side M54.40 [facility] [address] [place] [id number] [address] [place] [address] Mar, [place] [address] [place] [id number] [place] [address] Mar, Lumbago with sciatica, unspe cified side M54.40 [facility] [address] [place] [id number] [address] [place] [address] Feb, Lumbago with sciatica, unspe cified side M54.40 [facility] [address] [facility] [id number] [address] [place] [address] Feb, BMI 45.0-49.9, adult Z68.42 and Obstructive sleep apnea syndrome G47.33 [place] [address] [place] [id number] [address] [place] [address] January, Lumbar neuritis M54.16 [place] [address] [facility] [id number] [address] [place] [address] January, Lumbago with sciatica, unspe cified side M54.40 [place] [address] [place] [id number] [place] [address] Dec, Controlled type 2 diabetes m maribell without complication, without long-term current use of insulin E11.9 ; Erectile dysfunction due to diseases classified elsewhere N52.1 and Mood disorder F39 [place] [address] [place] [id number] [address] [place] [address] Dec, Lumbago with sciatica, unspe cified side M54.40 [place] [address] [place] [id number] [address] [place] [address] Dec, Obstructive sleep apnea synd luis G47.33 [place] [address] [place] [id number] [address] [place] [address] Nov, Lumbago with sciatica, unspe cified side M54.40 ; Hypertension, benign I10 and Mood disorder F39 [facility] [address] [place] [id number] [address] [place] [address] Nov, Other chronic pain G89.29 [facility] [address] [facility] [id number] [address] [place] [address] Nov, Lumbago with sciatica, unspe cified side M54.40 [facility] [address] [id number] [address] [place] [address] [id number] Nov, Dental examination Z01.20 [facility] [address] [facility] [id number] [address] [place] [address] Oct, [facility] [address] [facility] [id number] [address] [place] [address] Oct, Lumbago with sciatica, unspe cified side M54.40 [facility] [address] [facility] [id number] [address] [place] [address] Oct, Lumbago with sciatica, unspe cified side M54.40 [facility] [address] [facility] [id number] [address] [place] [address] Oct, [facility] [address] [facility] [id number] [address] [place] [address] Oct, [facility] [address] [facility] [id number] [address] [place] [address] [id number] Oct, Dental examination Z01.20 [facility] [address] [facility] [id number] [address] [place] [address] Oct, [facility] [address] [facility] [id number] [address] [place] [address] Oct, Pain in right knee M25.561 [facility] [address] [facility] [id number] [address] [place] [address] Sep, [facility] [address] [facility] [id number] [address] [place] [address] Sep, Other chronic pain G89.29 [facility] [address] [facility] [id number] [address] [place] [address] Sep, Lumbago with sciatica, unspe cified side M54.40 [facility] [address] [facility] [id number] [address] [place] [address] Sep, [facility] [address] [facility] [id number] [address] [place] [address] Sep, Viral URI J06.9 and BMI 45.0 -49.9, adult Z68.42 [facility] [address] [facility] [id number] [address] [place] [address] Aug, Foreign body hand S60.559A a nd BMI 45.0-49.9, adult Z68.42 [facility] [address] [facility] [id number] [address] [place] [address] Aug, [facility] [address] [place] [id number] [address] [place] [address] Aug, Lumbago with sciatica, unspe cified side M54.40 [facility] [address] [facility] [id number] [address] [place] [address] Aug, Vertigo R42 ; Dysfunction of both eustachian tubes H69.83 ; Low back pain M54.5 and Other chronic pain G89.29 [facility] [address] [facility] [id number] [address] [place] [address] Aug, Dizziness R42 and Acute bila teral otitis media H66.93 [facility] [address] [facility] [id number] [address] [place] [address] Aug, Lumbago with sciatica, unspe cified side M54.40 [facility] [address] [facility] [id number] [address] [place] [address] [id number] Jul, Dental examination Z01.20 [facility] [address] [place] [id number] [address] [place] [address] Jul, [facility] [address] [facility] [id number] [address] [place] [address] Jul, [facility] [address] [facility] [id number] [address] [place] [address] Jul, Dysfunction of both eustachi an tubes H69.83 [facility] [address] [facility] [id number] [address] [place] [phone] 07 Jul, 2017 Controlled type 2 diabetes m taraitus without complication, without long-term current use of insulin E11.9 [facility] [address] [id number] [address] [place] [address] Jul, Controlled type 2 diabetes m ellitus without complication, without long-term current use of insulin E11.9 [facility] [address] [id number] [address] [place] [address] Jul, Dizziness R42 and BMI 40.0-4 4.9, adult Z68.41 [facility] [address] [facility] [id number] [address] [place] [address] Jul, Controlled type 2 diabetes m ellitus without complication, without long-term current use of insulin E11.9 [facility] [address] [facility] [id number] [address] [place] [phone] Jul, Lumbago with sciatica, unspe cified side M54.40 [facility] [address] [id number] [place] [address] [id number] Jul, Dental examination Z01.20 [facility] [address] [id number] [address] [place] [phone] Jun, [facility] [id number] [place] [address] [id number] Jun, Dental examination Z01.20 [facility] [address] [facility] [id number] [address] [place] [address] Jun, Controlled type 2 diabetes m ellitus without complication, without long-term current use of insulin E11.9 [facility] [address] [id number] [address] [place] [address] Jun, Lumbago with sciatica, unspe cified side M54.40 [facility] [address] [place] [id number] [place] [address] [id number] May, Dental examination Z01.20 [facility] [address] [id number] [address] [place] [id number] May, Controlled type 2 diabetes m ellitus without complication, without long-term current use of insulin E11.9 [facility] [address] [id number] [address] [place] [address] [id number] 19 May, 2017 Dental examination Z01.20 [facility] [address] [facility] [id number] [address] [place] [phone] 18 May, 2017 Bronchitis J40 ; Dry mouth R 68.2 ; Non morbid obesity E66.9 and Controlled type 2 diabetes mellitus without complication, without long-term current use of insulin E11.9 [facility] [address] [facility] [id number] [address] [place] [id number] 16 May, 2017 Encounter for immunization Z 23 [place] [address] [facility] [id number] [place] [phone] 07 May, 2017 Lumbago with sciatica, unspe cified side M54.40 [facility] [address] [facility] [id number] [address] [place] [id number] 05 May, 2017 [facility] [id number] [place] [id number] Apr, Dental examination Z01.20 [facility] [address] [id number] [address] [place] [phone] Apr, Lumbago with sciatica, unspe cified side M54.40 [facility] [address] [facility] [id number] [address] [place] [id number] Mar, Lumbago with sciatica, left side M54.42 [facility] [address] [facility] [id number] [address] [place] [phone] Mar, [facility] [address] [facility] [id number] [address] [place] [id number] Mar, Lumbar neuritis M54.16 [facility] [address] [facility] [id number] [address] [place] [phone] Mar, [facility] [address] [id number] [address] [place] [id number] Mar, Dental examination Z01.20 [place] [address] [facility] [id number] [address] [place] [phone] Mar, MELE (obstructive sleep apnea ) G47.33 ; Neuropathy involving both lower extremities G57.93 and Frequent headaches R51 [place] [address] [facility] [id number] [address] [place] [phone] Mar, Lumbago with sciatica, unspe cified side M54.40 [place] [address] [place] [id number] [address] [place] [phone] Feb, Lumbago with sciatica, unspe cified side M54.40 and Controlled type 2 diabetes mellitus without complication, without long-term current use of insulin E11.9 [place] [address] [place] [id number] [place] [phone] January, Hypertension, benign I10 and Bilateral low back pain with sciatica, sciatica laterality unspecified M54.40 [place] [address] [address] [place] [id number] [place] [address] January, Hypertension, benign I10 ; L umbago with sciatica, unspecified side M54.40 ; Other chronic pain G89.29 and Controlled type 2 diabetes mellitus without complication, without long-term current use of insulin E11.9 [place] [address] [place] [id number] [address] [place] [address] January, Lumbar neuritis M54.16 [place] [address] [place] [id number] [address] [place] [address] January, [place] [address] [place] [id number] [address] [place] [address] Dec, Lumbago with sciatica, right side M54.41 and Lumbar neuritis M54.16 [place] [address] [place] [id number] [address] [place] [address] Dec, Lumbar neuritis M54.16 [place] [address] [place] [id number] [address] [place] [address] Dec, Lumbar neuritis M54.16 [place] [address] [place] [id number] [place] [address] Nov, Lumbar neuritis M54.16 ; Lum bago with sciatica, right side M54.41 ; Controlled type 2 diabetes mellitus without complication, without long-term current use of insulin E11.9 and Rash and nonspecific skin eruption R21 [place] [address] [place] [id number] [address] [place] [address] Nov, Lumbar neuritis M54.16 and P derickpeter miroslava L23.7 [place] [address] [place] [id number] [place] [address] Oct, Lumbar neuritis M54.16 ; Cou ghing R05 and Mood disorder F39 [place] [address] [place] [id number] [place] [address] Sep, Lumbago with sciatica, right side M54.41 [place] [address] [place] [id number] [place] [address] Sep, Adjustment disorder with dis turbance of emotion F43.29 and Pain management R52 [place] [address] [place] [id number] [place] [address] Sep, [place] [address] [place] [id number] [address] [place] [address] Sep, [place] [address] [place] [id number] [place] [address] Sep, Controlled type 2 diabetes evens reyna without complication, without long-term current use of insulin E11.9 and Lumbago with sciatica, unspecified side M54.40 [place] [address] [place] [id number] [address] [place] [address] Aug, Controlled type 2 diabetes evens reyna without complication, without long-term current use of insulin E11.9 ; Pain in right knee M25.561 ; Pain in left knee M25.562 ; Other chronic pain G89.29 ; Lumbago with sciatica, right side M54.41 ; Neck pain M54.2 and Encounter for immunization Z23 [facility] [address] [id number] [address] [place] [address] Jul, [facility] [address] [id number] [address] [place] [address] Jul, Controlled type 2 diabetes m maribell without complication, without long-term current use of insulin E11.9 [facility] [address] [id number] [address] [place] [address] Jul, [facility] [address] [id number] [address] [place] [address] Jul, [facility] [address] [id number] [address] [place] [address] Jul, Lumbago with sciatica, left side M54.42 ; Lumbago with sciatica, right side M54.41 and Other chronic pain G89.29 [facility] [address] [id number] [address] [place] [address] Jul, [facility] [address] [id number] [address] [place] [address] Jul, [facility] [address] [id number] [address] [place] [address] Jun, [facility] [address] [id number] [address] [place] [address] Jun, Lumbago with sciatica, right side M54.41 and Other chronic pain G89.29 [facility] [address] [id number] [address] [place] [address] Jun, Cervicalgia M54.2 ; Lumbago with sciatica, unspecified side M54.40 and Other chronic pain G89.29 [facility] [address] [id number] [address] [place] [address] 15 May, 2016 Pain in right knee M25.561 ; Pain in left knee M25.562 and Other chronic pain G89.29 [facility] [address] [id number] [address] [place] [address] May, [facility] [address] [id number] [address] [place] [address] Apr, Other chronic pain G89.29 an d Pain in right knee M25.561 [facility] [address] [id number] [address] [place] [address] Apr, Pain in right knee M25.561 [facility] [address] [id number] [address] [place] [address] Mar, [facility] [address] [id number] [address] [place] [address] Mar, Mood disorder F39 and Contro lled type 2 diabetes mellitus without complication, without long-term current use of insulin E11.9 [facility] [address] [id number] [address] [place] [address] Mar, Pain in right knee M25.561 ; Pain in left knee M25.562 ; Other chronic pain G89.29 ; Obstructive sleep apnea syndrome G47.33 ; Mood disorder F39 and Controlled type 2 diabetes mellitus without complication, without long- term current use of insulin E11.9 [facility] [address] [id number] [address] [place] [address] Mar, [facility] [address] [id number] [address] [place] [address] [id number] Feb, Dental examination Z01.20 [facility] [address] [id number] [address] [place] [address] Feb, [facility] [address] [id number] [address] [place] [address] Feb, Osteoarthritis of right knee , unspecified osteoarthritis type M17.9 [facility] [address] [id number] [address] [place] [address] January, [facility] [address] [id number] [address] [place] [address] [id number] January, Dental examination Z01.20 [facility] [address] [id number] [address] [place] [address] January, [facility] [address] [id number] [address] [place] [address] [id number] January, Dental examination Z01.20 an d Caries K02.9 [facility] [address] [id number] [address] [place] [address] Dec, Encounter for other preproce dural examination Z01.818 [facility] [address] [id number] [address] [place] [address] Dec, [facility] [address] [id number] [address] [place] [address] Dec, Knee pain M25.569 [facility] [address] [id number] [address] [place] [address] Dec, Pain in right knee M25.561 [facility] [address] [id number] [address] [place] [address] Dec, [facility] [address] [id number] [address] [place] [address] Dec, [facility] [address] [id number] [address] [place] [address] Dec, Encounter for immunization Z 23 [facility] [address] [id number] [address] [place] [address] Dec, [facility] [address] [id number] [address] [place] [address] Dec, [facility] [address] [id number] [address] [place] [address] Nov, [facility] [address] [id number] [address] [place] [address] Nov, Hypertension, benign I10 ; C ervicalgia M54.2 ; Pain in right knee M25.561 and Pain in left knee M25.562 [place] [address] [facility] [id number] [address] [place] [address] Oct, [facility] [address] [facility] [id number] [address] [place] [address] Oct, [facility] [address] [facility] [id number] [address] [place] [address] Oct, Osteoarthritis of both knees M17.0 [place] [address] [facility] [id number] [address] [place] [address] Oct, [place] [address] [facility] [id number] [address] [place] [address] Oct, Low back pain M54.5 [place] [address] [facility] [id number] [address] [place] [address] Oct, Low back pain M54.5 ; Sciati ca, unspecified side M54.30 ; Pain in right knee M25.561 ; Pain in left knee M25.562 ; Pain in right shoulder M25.511 and Pain in left shoulder M25.512 [place] [address] [facility] [id number] [address] [place] [address] Oct, [place] [address] [facility] [id number] [address] [place] [address] Sep, Pain in right hip M25.551 [place] [address] [facility] [id number] [address] [place] [address] Sep, Acute upper respiratory infe ction, unspecified J06.9 [place] [address] [facility] [id number] [address] [place] [address] Aug, Acute upper respiratory infe ction, unspecified J06.9 and Other viral agents as the cause of diseases classified elsewhere B97.89 [place] [address] [facility] [id number] [address] [place] [address] Jul, Arthritis M19.90 [facility] [address] [id number] [address] [place] [address] Jun, Arthritis M19.90 ; Pain in r ight hip M25.551 ; Pain in left hip M25.552 ; Bilateral low back pain with sciatica, sciatica laterality unspecified M54.40 ; Neck pain M54.2 ; Upper back pain M54.9 and Knee pain, unspecified laterality M25.569 [facility] [address] [id number] [address] [place] [address] May, Osteoarthritis of both knees 715.96 [facility] [address] [id number] [address] [place] [address] May, Rash 782.1 [facility] [address] [id number] [address] [place] [address] Apr, Lumbar strain 847.2 [facility] [address] [id number] [address] [place] [address] Apr, Rash 782.1 [facility] [address] [id number] [address] [place] [address] Mar, Rash 782.1 [facility] [address] [facility] [id number] [address] [place] [address] Feb, Rash 782.1 ; Hemorrhoids 455 .6 and Constipation 564.00 [facility] [address] [id number] [address] [place] [address] Feb, Osteoarthritis of both knees 715.96 [facility] [address] [id number] [address] [place] [address] January, [facility] [address] [id number] [address] [place] [address] Dec, [facility] [address] [facility] [id number] [address] [place] [address] Dec, [facility] [address] [id number] [address] [place] [id number] 13 Dec, 2014 [facility] [address] [id number] [address] [place] [address], [place] [address] 18 Nov, 2014 [facility] [address] [id number] [address] [place] [address], [place] [address] 18 Nov, 2014 [facility] [address] [id number] [address] [place] [address], [place] [address] 18 Nov, 2014 [facility] [address] [id number] [address] [place] [address], [place] [address] 18 Nov, 2014 [facility] [address] [id number] [address] [place] [address], [place] [address] Nov, [facility] [address] [id number] [address] [place] [address], [place] [address] Nov, [facility] [address] [id number] [address] [place] [address], [place] [address] Oct, [facility] [address] [id number] [address] [place] [address], [place] [address] Oct, [facility] [address] [id number] [address] [place] [address], [place] [address] Oct, 2014 [facility] [address] [id number] [address] [place] [address], [place] [address] Oct, [facility] [address] [id number] [address] [place] [address], [place] [address] Oct, 2014 [facility] [address] [id number] [address] [place] [address], [place] [address] Oct, 2014 [facility] [address] [id number] [address] [place] [address], [place] [address] Oct, 2014 [facility] [address] [id number] [address] [place] [address], [place] [address] Oct, 2014 [facility] [address] [id number] [address] [place] [address], [place] [address] Oct, [facility] [address] [id number] [address] [place] [address], [place] [address] Oct, [facility] [address] [id number] [address] [place] [address], [place] [address] Oct, [facility] [address] [id number] [address] [place] [address], [place] [address] Sep, [facility] [address] [id number] [address] [place] [address], [place] [address] Sep, [facility] [address] [id number] [address] [place] [address], [place] [address] Sep, [facility] [address] [id number] [address] [place] [address], [place] [address] Sep, [facility] [address] [id number] [address] [place] [address], [place] [address] Sep, [facility] [address] [id number] [address] [place] [address], [place] [address] Sep, [facility] [address] [id number] [address] [place] [address], [place] [address] Aug, [facility] [address] [id number] [address] [place] [address], [place] [address] Aug, [facility] [address] [id number] [address] [place] [address], [place] [address] Aug, [facility] [address] [id number] [address] [place] [address], [place] [address] Aug, [facility] [address] [id number] [address] [place] [address], [place] [address] Aug, [facility] [address] [id number] [address] [place] [address], [place] [address] Aug, [facility] [address] [id number] [address] [place] [address], [place] [address] Aug, [facility] [address] [id number] [address] [place] [address], [place] [address] Aug, [facility] [address] [id number] [address] [place] [address], [place] [address] Aug, [facility] [address] [id number] [address] [place] [address], [place] [address] Aug, [facility] [address] [id number] [address] [place] [address], [place] [address] Jul, [facility] [address] [id number] [address] [place] [address], [place] [address] Jul, [facility] [address] [id number] [address] [place] [address], [place] [address] Jul, [facility] [address] [id number] [address] [place] [address], [place] [address] Jul, [facility] [address] [id number] [address] [place] [address], [place] [address] Jun, [facility] [address] [id number] [address] [place] [address], [place] [address] Jun, [facility] [address] [id number] [address] [place] [address], [place] [address] Jun, [facility] [address] [id number] [address] [place] [address], [place] [address] Jun, [facility] [address] [id number] [address] [place] [address], [place] [address] Jun, [facility] [address] [id number] [address] [place] [address], [place] [address] Jun, [facility] [address] [id number] [address] [place] [address], [place] [address] Jun, [facility] [address] [id number] [address] [place] [address], [place] [address] Jun, [facility] [address] [id number] [address] [place] [address], [place] [address] May, [facility] [address] [id number] [facility] [place] [address] 24 May, 2013 [facility] [address] [id number] [facility] [place] [address] 19 May, 2014 [facility] [address] [id number] [facility] [place] [address] 19 May, 2013 [facility] [address] [id number] [address] [place] [address], [place] [address] 15 May, 2014 [facility] [address] [id number] [address] [place] [address], [place] [address] 15 May, 2014 [facility] [address] [id number] [address] [place] [address], [place] [address] 15 May, 2014 [facility] [address] [id number] [address] [place] [address], [place] [address] May, [facility] [address] [id number] [address] [place] [address], [place] [address] Apr, [facility] [address] [id number] [address] [place] [address], [place] [address] Apr, [facility] [address] [id number] [address] [place] [address], [place] [address] Apr, [facility] [address] [id number] [address] [place] [address], [place] [address] Apr, [facility] [address] [id number] [address] [place] [address], [place] [address] Apr, [facility] [address] [id number] [address] [place] [address], [place] [address] Apr, [facility] [address] [id number] [address] [place] [address], [place] [address] Apr, [facility] [address] [id number] [address] [place] [address], [place] [address] Apr, [facility] [address] [id number] [address] [place] [address], [place] [address] Apr, [facility] [address] [id number] [address] [place] [address], [place] [address] Apr, [facility] [address] [id number] [address] [place] [address], [place] [address] Apr, [facility] [address] [id number] [address] [place] [address], [place] [address] Apr, [facility] [address] [id number] [address] [place] [address], [place] [address] Mar, [facility] [address] [id number] [address] [place] [address], [place] [address] Mar, [facility] [address] [id number] [address] [place] [address], [place] [address] Mar, [facility] [address] [id number] [address] [place] [address], [place] [address] Mar, [facility] [address] [id number] [address] [place] [address], [place] [address] Mar, [facility] [address] [id number] [address] [place] [address], [place] [address] Mar, [facility] [address] [id number] [address] [place] [address], [place] [address] Feb, [facility] [address] [id number] [address] [place] [address], [place] [address] Feb, [facility] [address] [id number] [address] [place] [address], [place] [address] Feb, [facility] [address] [id number] [address] [place] [address], [place] [address] Feb, [facility] [address] [id number] [address] [place] [address], [place] [address] Feb, [facility] [address] [id number] [address] [place] [address], [place] [address] Feb, [facility] [address] [id number] [facility] [address] Feb, [facility] [address] [id number] [address] [place] [address], [place] [address] Feb, [facility] [address] [id number] [address] [place] [address], [place] [address] Feb, [facility] [address] [id number] [address] [place] [address], [place] [address] Feb, [facility] [address] [id number] [address] [place] [address], [place] [address] Feb, [facility] [address] [id number] [address] [place] [address], [place] [address] Feb, [facility] [address] [id number] [address] [place] [address], [place] [address] Feb, [facility] [address] [id number] [address] [place] [address], [place] [address] Feb, [facility] [address] [id number] [address] [place] [address], [place] [address] January, [facility] [address] [id number] [address] [place] [address], [place] [address] January, [facility] [address] [id number] [address] [place] [address], [place] [address] January, [facility] [address] [id number] [address] [place] [address], [place] [address] January, [facility] [address] [id number] [address] [place] [address], [place] [address] January, [facility] [address] [id number] [address] [place] [address], [place] [address] January, [facility] [address] [id number] [address] [place] [address], [place] [address] Dec, [facility] [address] [id number] [address] [place] [address], [place] [address] Dec, [facility] [address] [id number] [address] [place] [address], [place] [address] Dec, [facility] [address] [id number] [address] [place] [address], [place] [address] Dec, [facility] [address] [id number] [address] [place] [address], [place] [address] Dec, [facility] [address] [id number] [address] [place] [address], [place] [address] Dec, [facility] [address] [id number] [address] [place] [address], [place] [address] Dec, [facility] [address] [id number] [address] [place] [address], [place] [address] Dec, [facility] [address] [id number] [address] [place] [address], [place] [address] Nov, [facility] [address] [id number] [address] [place] [address], [place] [address] Nov, [facility] [address] [id number] [address] [place] [address], [place] [address] Nov, [facility] [address] [id number] [address] [place] [address], [place] [address] Nov, [facility] [address] [id number] [address] [place] [address], [place] [address] Nov, [facility] [address] [id number] [address] [place] [address], [place] [address] Nov, [facility] [address] [id number] [address] [place] [address], [place] [address] Nov, [facility] [address] [id number] [address] [place] [address], [place] [address] Nov, [facility] [address] [id number] [address] [place] [address], [place] [address] Oct, [facility] [address] [id number] [address] [place] [address], [place] [address] Oct, [facility] [address] [id number] [address] [place] [address], [place] [address] Oct, [facility] [address] [id number] [address] [place] [address], [place] [address] Oct, [facility] [address] [id number] [address] [place] [address], [place] [address] Oct, [facility] [address] [id number] [address] [place] [address], [place] [address] Oct, [facility] [address] [id number] [address] [place] [address], [place] [address] Oct, [facility] [address] [id number] [address] [place] [address], [place] [address] Oct, [facility] [address] [id number] [address] [place] [address], [place] [address] Oct, [facility] [address] [id number] [address] [place] [address], [place] [address] Oct, [facility] [address] [id number] [address] [place] [address], [place] [address] Sep, [facility] [address] [id number] [address] [place] [address], [place] [address] Sep, [facility] [address] [id number] [address] [place] [address], [place] [address] Sep, [facility] [address] [id number] [address] [place] [address], [place] [address] Sep, [facility] [address] [id number] [address] [place] [address], [place] [address] Sep, [facility] [address] [id number] [address] [place] [address], [place] [address] Sep, [facility] [address] [id number] [address] [place] [address], [place] [address] Aug, [facility] [address] [id number] [address] [place] [address], [place] [address] Aug, [facility] [address] [id number] [address] [place] [address], [place] [address] Aug, [facility] [address] [id number] [address] [place] [address], [place] [address] Aug, [facility] [address] [id number] [address] [place] [address], [place] [address] Aug, [facility] [address] [id number] [address] [place] [address], [place] [address] Aug, [facility] [address] [id number] [address] [place] [address], [place] [address] Aug, [facility] [address] [id number] [address] [place] [address], [place] [address] Aug, [facility] [address] [id number] [address] [place] [address], [place] [address] Jul, [facility] [address] [id number] [address] [place] [address], [place] [address] Jul, [facility] [address] [id number] [address] [place] [address], [place] [address] Jul, [facility] [address] [id number] [address] [place] [address], [place] [address] Jul, [facility] [address] [id number] [address] [place] [address] Jul, [facility] [address] [id number] [address] [place] [address], [place] [address] Jul, [facility] [address] [id number] [address] [place] [address], [place] [address] Jun, [facility] [address] [id number] [address] [place] [address], [place] [address] Jun, [facility] [address] [id number] [address] [place] [address] [place] [address] Jun, [facility] [address] [id number] [address] [place] [address], [place] [address] 24 May, 2013 [facility] [address] [id number] [address] [place] [address], [place] [address] May, [facility] [address] [id number] [address] [place] [address], [place] [address] May, [facility] [address] [id number] [address] [place] [address], [place] [address] Apr, [facility] [address] [id number] [address] [place] [address], [place] [address] Apr, [facility] [address] [id number] [address] [place] [address], [place] [address] Apr, [facility] [address] [id number] [address] [place] [address], [place] [address] Apr, [facility] [address] [id number] [address] [place] [address], [place] [address] Mar, [facility] [address] [id number] [address] [place] [address], [place] [address] Mar, [facility] [address] [id number] [address] [place] [address], [place] [address] Mar, [facility] [address] [id number] [address] [place] [address], [place] [address] Mar, [facility] [address] [id number] [address] [place] [address], [place] [address] Feb, [facility] [address] [id number] [address] [place] [address], [place] [address] Feb, [facility] [address] [id number] [address] [place] [address], [place] [address] Feb, [facility] [address] [id number] [address] [place] [address], [place] [address] Feb, [facility] [address] [id number] [address] [place] [address], [place] [address] January, [facility] [address] [id number] [address] [place] [address], [place] [address] January, [facility] [address] [id number] [address] [place] [address], [place] [address] January, [facility] [address] [id number] [address] [place] [address], [place] [address] Nov, [facility] [address] [id number] [address] [place] [address], [place] [address] Nov, [facility] [address] [id number] [address] [place] [address], [place] [address] Oct, [facility] [address] [id number] [address] [place] [address], [place] [address] Oct, [facility] [address] [id number] [address] [place] [address], [place] [address] Oct, [facility] [address] [id number] [address] [place] [address], [place] [address] Oct, [facility] [address] [id number] [address] [place] [address], [place] [address] Sep, [facility] [address] [id number] [address] [place] [address], [place] [address] Sep, [facility] [address] [id number] [address] [place] [address], [place] [address] Sep, [facility] [address] [id number] [address] [place] [address], [place] [address] Aug, [facility] [address] [id number] [address] [place] [address], [place] [address] Aug, [facility] [address] [id number] [address] [place] [address], [place] [address] Aug, [facility] [address] [id number] [address] [place] [address], [place] [address] Aug, [facility] [address] [id number] [address] [place] [address], [place] [address] Aug, [facility] [address] [id number] [address] [place] [address], [place] [address] Aug, [facility] [address] [id number] [address] [place] [address], [place] [address] Jul, [facility] [address] [id number] [address] [place] [address], [place] [address] Jul, [facility] [address] [id number] [address] [place] [address], [place] [address] Jun, [facility] [address] [id number] [address] [place] [address], [place] [address] Jun, [facility] [address] [id number] [address] [place] [address], [place] [address] Jun, [facility] [address] [id number] [address] [place] [address], [place] [address] Apr, [facility] [address] [id number] [address] [place] [address], [place] [address] Apr, [facility] [address] [id number] [address] [place] [address], [place] [address] Mar, [facility] [address] [id number] [address] [place] [address], [place] [address] Mar, [facility] [address] [id number] [address] [place] [address] Mar, [facility] [address] [id number] [address] [place] [address], [place] [address] Mar, [facility] [address] [id number] [address] [place] [address], [place] [address] Feb, [facility] [address] [id number] [address] [place] [address], [place] [address] Feb, [facility] [address] [id number] [address] [place] [address], [place] [address] Feb, [facility] [address] [id number] [address] [place] [address], [place] [address] January, [facility] [address] [id number] [address] [place] [address], [place] [address] January, [facility] [address] [id number] [address] [place] [address], [place] [address] January, [facility] [address] [id number] [address] [place] [address], [place] [address] January, [facility] [address] [id number] [address] [place] [address], [place] [address] Dec, [facility] [address] [id number] [address] [place] [address], [place] [address] Dec, [facility] [address] [id number] [address] [place] [address], [place] [address] Nov, [facility] [address] [id number] [address] [place] [address], [place] [address] Nov, [facility] [address] [id number] [address] [place] [address], [place] [address] 16 Oct, 2011 [facility] [address] [id number] [address] [place] [address], [place] [address] Oct, [facility] [address] [id number] [address] [place] [address], [place] [address] Sep, [facility] [address] [id number] [address] [place] [address], [place] [address] Sep, [facility] [address] [id number] [address] [place] [address], [place] [address] Sep, [facility] [address] [id number] [address] [place] [address], [place] [address] Sep, [facility] [address] [id number] [address] [place] [address], [place] [address] Aug, [facility] [address] [id number] [address] [place] [address] 16 Aug, 2011 [facility] [address] [id number] [address] [place] [address] Aug, [facility] [address] [id number] [address] [place] [address] Jul, [facility] [address] [id number] [address] [place] [address] Aug, [facility] [address] [id number] [address] [place] [address] Aug, [facility] [address] [id number] [address] [place] [address] Aug, [facility] [address] [id number] [address] [place] [address] Aug, [facility] [address] [id number] [address] [place] [address] Jul, [facility] [address] [id number] [address] [place] [address] Jul, [facility] [address] [id number] [address] [place] [address] Jul, [facility] [address] [id number] [address] [place] [address] Jun, [facility] [address] [id number] [address] [place] [address] Jun, [facility] [address] [id number] [address] [place] [address] Jun, [facility] [address] [id number] [address] [place] [address] Apr, [facility] [address] [id number] [address] [place] [address] Mar, IMMUNIZATIONS No Known Immunizations SOCIAL HISTORY Never Assessed REASON FOR VISIT PLAN OF CARE VITAL SIGNS MEDICATIONS No Known Medications RESULTS No Results PROCEDURES No Known [...]
--- OUTSIDE RECORDS SUMMARY | 2020-03-18 14:58 | XMS REPORT ---
Author Author George Ramos Organization [facility] Address [address] [place] [address] Care Team Providers Care Security Systems Specialist Name Role Phone Richard ALKA Unavailable PROBLEMS Type Condition ICD9-CM Code WPF99-QL Code Onset Dates Condition S tatus SNOMED Code Problem Hypertension, benign I10 Active 81308019 Problem Other chronic pain G89.29 Active 8 3124888 Problem Lumbago with sciatica, unspecified side M54.40 Active 488283859 Problem Controlled type 2 diabetes m ellitus without complication, without long- term current use of insulin E11.9 Active 299695198 Problem Lumbago with sciatica, right side M54.41 Active 355622565 Problem Adjustment disorder with disturbance of emotion F4 3.29 Active 61145863 Problem MELE (obstructive sleep apnea) G47.33 Active 14685712 Problem Non morbid obesity E66.9 Active 4 32382120 Problem Hammer toe of left foot M20.42 Active 414644612 Problem Mood disorder F39 Active 307366 05 Problem Deformity of left foot M21.962 Active 957068345 Problem Lumbago with sciatica, left side M54.42 Active 854926741 Problem Erectile dysfunction due to diseases classified elsewhere N52.1 Active 086567950 Problem Obstructive sleep apnea syndrome G47.33 Active 10808844 Problem Type 2 diabetes mellitus wit h diabetic neuropathy, without long-term current use of insulin E11.40 Active 50590 006 Problem Essential hypertension I10 Active 21436179 ALLERGIES No Information ENCOUNTERS Encounter Location Date Diagnosis [facility] [address] [facility] [id number] [address] [place] [address] Dec, Acute diffuse otitis externa of left ear H60.312 [facility] [address] [facility] [id number] [address] [place] [address] 18 Nov, 2019 Viral URI J06.9 and Flu-like symptoms R68.89 [place] [address] [place] [id number] [address] [place] [address] Nov, Type 2 diabetes mellitus wit h diabetic neuropathy, without long- term current use of insulin E11.40 ; Family history of prostate cancer Z80.42 and Prostate cancer screening Z12.5 [place] [address] [place] [id number] [address] [place] [address] Nov, [place] [address] [place] [id number] [address] [place] [address] Sep, [place] [address] [place] [id number] [address] [place] [address] Aug, [place] [address] [place] [id number] [place] [address] Jul, Lumbago with sciatica, unspe cified side M54.40 [place] [address] [place] [id number] [address] [place] [address] Jun, Lumbago with sciatica, unspe cified side M54.40 [place] [address] [address] Jun, URI, acute J06.9 [place] [address] [address] May, Lumbago with sciatica, unspe cified side M54.40 [place] [address] [place] [id number] [address] [place] [address] May, [place] [address] [place] [id number] [address] [place] [address] 12 May, 2019 Type 2 diabetes mellitus wit h diabetic neuropathy, without long- term current use of insulin E11.40 and Hammer toe of left foot M20.42 [place] [address] [place] [id number] [address] [place] [address] May, [place] [address] [place] [id number] [place] [address] May, [facility] [address] [facility] [id number] [address] [place] [address] May, [facility] [address] [facility] [id number] [address] [place] [address] Apr, Lumbago with sciatica, unspe cified side M54.40 [facility] [address] [facility] [id number] [address] [place] [address] Apr, [facility] [address] [facility] [id number] [address] [place] [address] Apr, [id number] [place] [phone] Apr, Hammer toe of left foot M20. 42 ; Chest pain R07.9 ; Preoperative examination Z01.818 and Morbid obesity E66.01 [facility] [address] [place] [id number] [address] [place] [address] Apr, Morbid obesity E66.01 ; Bron chitis J40 and High risk medications (not anticoagulants) long-term use Z79.899 [facility] [address] [place] [id number] [address] [place] [address] Apr, Lumbago with sciatica, unspe cified side M54.40 [facility] [address] [place] [id number] [address] [place] [address] Apr, [facility] [address] [facility] [id number] [address] [place] [address] Mar, Lumbar neuritis M54.16 and M orbid obesity E66.01 [facility] [address] [facility] [id number] [address] [place] [address] Mar, [facility] [address] [facility] [id number] [address] [place] [address] Mar, [facility] [address] [place] [id number] [address] [place] [address] Mar, Lumbago with sciatica, unspe cified side M54.40 [facility] [address] [id number] [address] [place] [address] Mar, Morbid obesity E66.01 ; Gabe lara R05 ; 2+ pitting edema R60.9 and Controlled type 2 diabetes mellitus without complication, without long-term current use of insulin E11.9 [facility] [address] [id number] [address] [place] [address] Feb, [facility] [address] [id number] [address] [place] [address] Feb, Lumbago with sciatica, unspe cified side M54.40 [facility] [address] [id number] [address] [place] [address] Feb, [facility] [address] [facility] [id number] [address] [place] [address] Feb, Controlled type 2 diabetes m ellitus without complication, without long-term current use of insulin E11.9 and Morbid obesity E66.01 [facility] [address] [id number] [address] [place] [address] January, Deformity of left foot M21.9 62 [facility] [address] [id number] [address] [place] [address] January, [facility] [address] [id number] [address] [place] [address] January, Lumbago with sciatica, unspe cified side M54.40 [facility] [address] [id number] [address] [place] [address] January, [facility] [address] [facility] [id number] [address] [place] [address] January, Lumbago with sciatica, unspe cified side M54.40 [facility] [address] [id number] [address] [place] [address] January, [facility] [address] [facility] [id number] [address] [place] [address] January, Acute right-sided thoracic b ack pain M54.6 [facility] [address] [facility] [id number] [address] [place] [address] January, Acute right-sided thoracic b ack pain M54.6 [facility] [address] [facility] [id number] [address] [place] [address] January, Chest pain, unspecified type R07.9 ; Morbid obesity E66.01 and Scabies B86 [place] [address] [facility] [id number] [address] [place] [address] Dec, Lumbago with sciatica, unspe cified side M54.40 [facility] [address] [place] [id number] [address] [place] [address] Dec, Toenail fungus B35.1 [facility] [address] [facility] [id number] [address] [place] [address] Dec, Toenail fungus B35.1 [facility] [address] [facility] [id number] [address] [place] [address] Dec, Acute right-sided thoracic b ack pain M54.6 [facility] [address] [facility] [id number] [address] [place] [address] Dec, Lumbago with sciatica, unspe cified side M54.40 [facility] [address] [facility] [id number] [address] [place] [address] Nov, Hammer toe of left foot M20. 42 ; Deformity of left foot M21.962 and Type 2 diabetes mellitus with diabetic neuropathy, without long-term current use of insulin E11.40 [facility] [address] [facility] [id number] [address] [place] [address] Nov, Acute right-sided thoracic b ack pain M54.6 ; Morbid obesity E66.01 and Rt flank pain R10.9 [facility] [address] [place] [id number] [address] [place] [address] Nov, Lumbago with sciatica, unspe cified side M54.40 [facility] [address] [place] [id number] [address] [place] [address] Oct, Lumbago with sciatica, unspe cified side M54.40 [place] [address] [place] [id number] [place] [address] Sep, Lumbago with sciatica, unspe cified side M54.40 [place] [address] [place] [id number] [place] [address] Sep, [place] [address] [place] [id number] [place] [address] Sep, BMI 40.0-44.9, adult Z68.41 ; Lumbago with sciatica, left side M54.42 ; Lumbago with sciatica, right side M54.41 and Other chronic pain G89.29 [place] [address] [address] Aug, Lumbago with sciatica, unspe cified side M54.40 [place] [address] [place] [id number] [place] [address] Aug, Type 2 diabetes mellitus wit h diabetic neuropathy, without long- term current use of insulin E11.40 ; Hammer toe of left foot M20.42 ; Hypertension, benign I10 and Frequent headaches R51 [place] [address] [place] [id number] [address] [place] [address] Jul, Lumbago with sciatica, unspe cified side M54.40 [place] [address] [place] [id number] [address] [place] [address] Jul, [place] [address] [place] [id number] [place] [address] Jul, Essential hypertension I10 a nd Controlled type 2 diabetes mellitus without complication, without long-term current use of insulin E11.9 [place] [id number] [place] [id number] [address] [place] [address] Jul, Essential hypertension I10 ; Controlled type 2 diabetes mellitus without complication, without long-term current use of insulin E11.9 and BMI 40.0-44.9, adult Z68.41 [place] [address] [facility] [id number] [place] [address] Jul, Dysfunction of left eustachi an tube H69.82 [place] [address] [place] [id number] [address] [place] [address] Jul, Lumbago with sciatica, unspe cified side M54.40 [facility] [address] [place] [id number] [place] [id number] Jun, Dental examination Z01.20 [place] [address] [place] [id number] [address] [place] [address] Jun, Lumbago with sciatica, unspe cified side M54.40 and Encounter for immunization Z23 [place] [address] [address] Jun, Dysfunction of left eustachi an tube H69.[address] [place] [id number] [place] [address] [id number] Jun, Dental examination Z01.20 [facility] [address] [place] [id number] [address] [place] [address] Jun, Other chronic pain G89.29 [facility] [id number] [place] [id number] Jun, Dental examination Z01.20 [facility] [address] [facility] [id number] [address] [place] [address] Jun, [place] [address] [place] [id number] [address] [place] [address] Jun, Bronchitis J40 ; Dysfunction of left eustachian tube H69.82 and BMI 45.0-49.9, adult Z68.42 [facility] [address] [address] Jun, Lumbago with sciatica, unspe cified side M54.40 [facility] [address] [place] [address] May, Type 2 diabetes mellitus wit h diabetic neuropathy, without long- term current use of insulin E11.40 and Hypertension, benign I10 [facility] [address] [address] May, Lumbago with sciatica, unspe cified side M54.40 [facility] [address] [address] Apr, [facility] [address] [address] Apr, Controlled type 2 diabetes m ellitus without complication, without long-term current use of insulin E11.9 ; Insect bite (nonvenomous), right ankle, initial encounter S90.561A ; Local infection of the skin and subcutaneous tissue, unspecified L08.9 ; Acute swimmer''s ear of left side H60.332 and BMI 45.0-49.9, adult Z68.42 [place] [address] [place] [id number] [address] [place] [address] Apr, Lumbago with sciatica, unspe cified side M54.40 [facility] [address] [place] [address] Mar, [place] [address] [place] [address] Mar, Lumbago with sciatica, unspe cified side M54.40 [place] [address] [place] [id number] [address] [place] [address] Feb, Lumbago with sciatica, unspe cified side M54.40 [place] [address] [place] [id number] [address] [place] [address] Feb, BMI 45.0-49.9, adult Z68.42 and Obstructive sleep apnea syndrome G47.33 [place] [address] [place] [id number] [place] [address] January, Lumbar neuritis M54.16 [place] [address] [place] [id number] [place] [address] January, Lumbago with sciatica, unspe cified side M54.40 [place] [address] [place] [id number] [place] [address] Dec, Controlled type 2 diabetes m ellitus without complication, without long-term current use of insulin E11.9 ; Erectile dysfunction due to diseases classified elsewhere N52.1 and Mood disorder F39 [place] [address] [address] Dec, Lumbago with sciatica, unspe cified side M54.40 [place] [address] [place] [id number] [address] [place] [address] Dec, Obstructive sleep apnea synd luis G47.33 [place] [address] [place] [id number] [address] [place] [address] Nov, Lumbago with sciatica, unspe cified side M54.40 ; Hypertension, benign I10 and Mood disorder F39 [place] [address] [place] [id number] [address] [place] [address] Nov, Other chronic pain G89.29 [place] [address] [place] [id number] [address] [place] [address] Nov, Lumbago with sciatica, unspe cified side M54.40 [facility] [address] [id number] [address] [place] [address] [id number] Nov, Dental examination Z01.20 [facility] [address] [id number] [address] [place] [address] Oct, [facility] [address] [id number] [address] [place] [address] Oct, Lumbago with sciatica, unspe cified side M54.40 [facility] [address] [id number] [address] [place] [address] Oct, Lumbago with sciatica, unspe cified side M54.40 [facility] [address] [id number] [address] [place] [address] Oct, [facility] [address] [id number] [address] [place] [address] Oct, [facility] [address] [facility] [id number] [address] [place] [address] [id number] Oct, Dental examination Z01.20 [facility] [address] [facility] [id number] [address] [place] [address] Oct, [facility] [address] [facility] [id number] [address] [place] [address] Oct, Pain in right knee M25.561 [facility] [address] [facility] [id number] [address] [place] [address] Sep, [facility] [address] [facility] [id number] [address] [place] [address] Sep, Other chronic pain G89.29 [facility] [address] [id number] [address] [place] [address] Sep, Lumbago with sciatica, unspe cified side M54.40 [facility] [address] [facility] [id number] [address] [place] [address] Sep, [facility] [address] [facility] [id number] [address] [place] [address] Sep, Viral URI J06.9 and BMI 45.0 -49.9, adult Z68.42 [facility] [address] [facility] [id number] [address] [place] [address] Aug, Foreign body hand S60.559A a nd BMI 45.0-49.9, adult Z68.42 [facility] [address] [place] [id number] [address] [place] [address] Aug, [facility] [address] [place] [id number] [address] [place] [address] Aug, Lumbago with sciatica, unspe cified side M54.40 [place] [address] [place] [id number] [place] [address] Aug, Vertigo R42 ; Dysfunction of both eustachian tubes H69.83 ; Low back pain M54.5 and Other chronic pain G89.29 [facility] [address] [place] [id number] [address] [place] [address] Aug, Dizziness R42 and Acute bila teral otitis media H66.93 [place] [address] [place] [id number] [address] [place] [address] Aug, Lumbago with sciatica, unspe cified side M54.40 [facility] [address] [place] [id number] [address] [place] [address] [id number] Jul, Dental examination Z01.20 [facility] [address] [facility] [id number] [address] [place] [address] Jul, [place] [address] [place] [id number] [address] [place] [address] Jul, [place] [address] [place] [id number] [address] [place] [phone] Jul, Dysfunction of both eustachi an tubes H69.83 [facility] [address] [place] [id number] [address] [place] [address] Jul, Controlled type 2 diabetes m taraitus without complication, without long-term current use of insulin E11.9 [facility] [address] [id number] [address] [place] [address] Jul, Controlled type 2 diabetes m ellitus without complication, without long-term current use of insulin E11.9 [facility] [address] [id number] [address] [place] [address] Jul, Dizziness R42 and BMI 40.0-4 4.9, adult Z68.41 [facility] [address] [id number] [address] [place] [address] Jul, Controlled type 2 diabetes m ellitus without complication, without long-term current use of insulin E11.9 [facility] [address] [id number] [address] [place] [id number] Jul, Lumbago with sciatica, unspe cified side M54.40 [facility] [id number] [place] [id number] Jul, Dental examination Z01.20 [facility] [address] [id number] [address] [place] [address] Jun, [facility] [id number] [place] [address] [id number] Jun, Dental examination Z01.20 [facility] [address] [id number] [address] [place] [address] Jun, Controlled type 2 diabetes m ellitus without complication, without long-term current use of insulin E11.9 [facility] [address] [id number] [address] [place] [address] Jun, Lumbago with sciatica, unspe cified side M54.40 [facility] [address] [id number] [address] [place] [address] [id number] May, Dental examination Z01.20 [facility] [address] [id number] [address] [place] [address] May, Controlled type 2 diabetes m ellitus without complication, without long-term current use of insulin E11.9 [facility] [address] [id number] [address] [place] [address] [phone] 19 May, 2017 Dental examination Z01.20 [facility] [address] [facility] [id number] [address] [place] [phone] 18 May, 2017 Bronchitis J40 ; Dry mouth R 68.2 ; Non morbid obesity E66.9 and Controlled type 2 diabetes mellitus without complication, without long-term current use of insulin E11.9 [facility] [address] [id number] [address] [place] [phone] 16 May, 2017 Encounter for immunization Z 23 [facility] [address] [facility] [id number] [place] [phone] 07 May, 2017 Lumbago with sciatica, unspe cified side M54.40 [facility] [address] [facility] [id number] [address] [place] [phone] 05 May, 2017 [facility] [address] [facility] [id number] [place] [phone] Apr, Dental examination Z01.20 [facility] [address] [facility] [id number] [address] [place] [phone] Apr, Lumbago with sciatica, unspe cified side M54.40 [facility] [address] [id number] [address] [place] [phone] Mar, Lumbago with sciatica, left side M54.42 [facility] [address] [id number] [address] [place] [phone] Mar, [facility] [address] [id number] [address] [place] [phone] Mar, Lumbar neuritis M54.16 [facility] [address] [facility] [id number] [address] [place] [phone] Mar, [facility] [address] [place] [id number] [place] [phone] Mar, Dental examination Z01.20 [place] [address] [id number] [address] [place] [phone] Mar, MELE (obstructive sleep apnea ) G47.33 ; Neuropathy involving both lower extremities G57.93 and Frequent headaches R51 [place] [address] [id number] [address] [place] [address] Mar, Lumbago with sciatica, unspe cified side M54.40 [place] [address] [id number] [address] [place] [address] Feb, Lumbago with sciatica, unspe cified side M54.40 and Controlled type 2 diabetes mellitus without complication, without long-term current use of insulin E11.9 [place] [address] [id number] [address] [place] [address] January, Hypertension, benign I10 and Bilateral low back pain with sciatica, sciatica laterality unspecified M54.40 [place] [address] [id number] [address] [place] [address] January, Hypertension, benign I10 ; L umbago with sciatica, unspecified side M54.40 ; Other chronic pain G89.29 and Controlled type 2 diabetes mellitus without complication, without long-term current use of insulin E11.9 [place] [address] [id number] [address] [place] [address] January, Lumbar neuritis M54.16 [place] [address] [id number] [address] [place] [address] January, [place] [address] [id number] [address] [place] [address] Dec, Lumbago with sciatica, right side M54.41 and Lumbar neuritis M54.16 [place] [address] [id number] [address] [place] [address] Dec, Lumbar neuritis M54.16 [place] [address] [id number] [address] [place] [address] Dec, Lumbar neuritis M54.16 [place] [address] [facility] [id number] [address] [place] [address] Nov, Lumbar neuritis M54.16 ; Lum bago with sciatica, right side M54.41 ; Controlled type 2 diabetes mellitus without complication, without long-term current use of insulin E11.9 and Rash and nonspecific skin eruption R21 [place] [address] [place] [id number] [address] [place] [address] Nov, Lumbar neuritis M54.16 and P oison miroslava L23.7 [place] [address] [place] [id number] [place] [id number] Oct, Lumbar neuritis M54.16 ; Cou ghing R05 and Mood disorder F39 [place] [address] [place] [id number] [address] [place] [address] Sep, Lumbago with sciatica, right side M54.41 [place] [address] [place] [id number] [address] [place] [address] Sep, Adjustment disorder with dis turbance of emotion F43.29 and Pain management R52 [place] [address] [place] [id number] [address] [place] [address] Sep, [place] [address] [place] [id number] [address] [place] [address] Sep, [place] [address] [place] [id number] [address] [place] [address] Sep, Controlled type 2 diabetes evens reyna without complication, without long-term current use of insulin E11.9 and Lumbago with sciatica, unspecified side M54.40 [place] [address] [place] [id number] [address] [place] [address] Aug, Controlled type 2 diabetes evens reyna without complication, without long-term current use of insulin E11.9 ; Pain in right knee M25.561 ; Pain in left knee M25.562 ; Other chronic pain G89.29 ; Lumbago with sciatica, right side M54.41 ; Neck pain M54.2 and Encounter for immunization Z23 [facility] [address] [id number] [address] [place] [address] Jul, [facility] [address] [id number] [address] [place] [address] Jul, Controlled type 2 diabetes m maribell without complication, without long-term current use of insulin E11.9 [facility] [address] [id number] [address] [place] [id number] 17 Jul, 2016 [facility] [address] [id number] [address] [place] [address] Jul, [facility] [address] [id number] [address] [place] [address] Jul, Lumbago with sciatica, left side M54.42 ; Lumbago with sciatica, right side M54.41 and Other chronic pain G89.29 [facility] [address] [id number] [address] [place] [address] Jul, [facility] [address] [id number] [address] [place] [address] Jul, [facility] [address] [id number] [address] [place] [address] Jun, [facility] [address] [id number] [address] [place] [address] Jun, Lumbago with sciatica, right side M54.41 and Other chronic pain G89.29 [facility] [address] [id number] [address] [place] [address] Jun, Cervicalgia M54.2 ; Lumbago with sciatica, unspecified side M54.40 and Other chronic pain G89.29 [facility] [address] [id number] [address] [place] [address] 15 May, 2016 Pain in right knee M25.561 ; Pain in left knee M25.562 and Other chronic pain G89.29 [facility] [address] [id number] [address] [place] [address] May, [facility] [address] [id number] [address] [place] [address] Apr, Other chronic pain G89.29 an d Pain in right knee M25.561 [facility] [address] [id number] [address] [place] [address] Apr, Pain in right knee M25.561 [facility] [address] [id number] [address] [place] [address] Mar, [place] [address] [id number] [address] [place] [address] Mar, Mood disorder F39 and Contro lled type 2 diabetes mellitus without complication, without long-term current use of insulin E11.9 [facility] [address] [id number] [address] [place] [address] Mar, Pain in right knee M25.561 ; Pain in left knee M25.562 ; Other chronic pain G89.29 ; Obstructive sleep apnea syndrome G47.33 ; Mood disorder F39 and Controlled type 2 diabetes mellitus without complication, without long- term current use of insulin E11.9 [facility] [address] [id number] [address] [place] [address] Mar, [facility] [address] [id number] [address] [place] [id number] Feb, Dental examination Z01.20 [facility] [address] [id number] [address] [place] [address] Feb, [facility] [address] [id number] [address] [place] [address] Feb, Osteoarthritis of right knee , unspecified osteoarthritis type M17.9 [facility] [address] [id number] [address] [place] [address] January, [facility] [address] [id number] [address] [place] [id number] January, Dental examination Z01.20 [facility] [address] [id number] [address] [place] [address] January, [facility] [address] [id number] [address] [place] [address] [id number] January, Dental examination Z01.20 an d Caries K02.9 [facility] [address] [id number] [address] [place] [address] Dec, Encounter for other preproce dural examination Z01.818 [facility] [address] [id number] [address] [place] [address] Dec, [facility] [address] [id number] [address] [place] [address] Dec, Knee pain M25.569 [facility] [address] [id number] [address] [place] [address] Dec, Pain in right knee M25.561 [facility] [address] [id number] [address] [place] [address] Dec, [facility] [address] [id number] [address] [place] [address] Dec, [facility] [address] [id number] [address] [place] [address] Dec, Encounter for immunization Z 23 [facility] [address] [id number] [address] [place] [address] Dec, [facility] [address] [id number] [address] [place] [address] Dec, [facility] [address] [id number] [address] [place] [address] Nov, [facility] [address] [id number] [address] [place] [address] 02 Mar, 2016 Hypertension, benign I10 ; C ervicalgia M54.2 ; Pain in right knee M25.561 and Pain in left knee M25.562 [place] [id number] N [facility] [id number] [address] [place] [address] Oct, [place] [address] [facility] [id number] [address] [place] [address] Oct, [place] [address] [place] [id number] [place] [address] Oct, Osteoarthritis of both knees M17.0 [place] [address] [facility] [id number] [address] [place] [address] Oct, [place] [address] [place] [id number] [place] [address] Oct, Low back pain M54.5 [place] [address] [place] [id number] [place] [address] Oct, Low back pain M54.5 ; Sciati ca, unspecified side M54.30 ; Pain in right knee M25.561 ; Pain in left knee M25.562 ; Pain in right shoulder M25.511 and Pain in left shoulder M25.512 [place] [address] [place] [id number] [address] [place] [address] Oct, [place] [address] [place] [id number] [address] [place] [address] Sep, Pain in right hip M25.551 [place] [address] [place] [id number] [address] [place] [address] Sep, Acute upper respiratory infe ction, unspecified J06.9 [place] [address] [place] [id number] [address] [place] [address] Aug, Acute upper respiratory infe ction, unspecified J06.9 and Other viral agents as the cause of diseases classified elsewhere B97.89 [place] [address] [place] [id number] [address] [place] [address] Jul, Arthritis M19.90 [facility] [address] [id number] [address] [place] [address] Jun, Arthritis M19.90 ; Pain in r ight hip M25.551 ; Pain in left hip M25.552 ; Bilateral low back pain with sciatica, sciatica laterality unspecified M54.40 ; Neck pain M54.2 ; Upper back pain M54.9 and Knee pain, unspecified laterality M25.569 [facility] [address] [id number] [address] [place] [address] May, Osteoarthritis of both knees 715.96 [place] [address] [id number] [address] [place] [address] May, Rash 782.1 [place] [address] [facility] [id number] [address] [place] [address] Apr, Lumbar strain 847.2 [place] [address] [facility] [id number] [address] [place] [address] Apr, Rash 782.1 [facility] [address] [facility] [id number] [address] [place] [address] Mar, Rash 782.1 [facility] [address] [facility] [id number] [address] [place] [address] Feb, Rash 782.1 ; Hemorrhoids 455 .6 and Constipation 564.00 [place] [address] [id number] [address] [place] [address] Feb, Osteoarthritis of both knees 715.96 [facility] [address] [id number] [address] [place] [address] January, [facility] [address] [facility] [id number] [address] [place] [address] Dec, [place] [address] [facility] [id number] [address] [place] [address] Dec, [facility] [address] [id number] [address] [place] [address], [place] [address] 13 Dec, 2014 [facility] [address] [id number] [address] [place] [address], [place] [address] 18 Nov, 2014 [facility] [address] [id number] [address] [place] [address], [place] [address] 18 Nov, 2014 [facility] [address] [id number] [address] [place] [address], [place] [address] Nov, [facility] [address] [id number] [address] [place] [address], [place] [address] Nov, [facility] [address] [id number] [address] [place] [address], [place] [address] Nov, [facility] [address] [id number] [address] [place] [address], [place] [address] Nov, [facility] [address] [id number] [address] [place] [address], [place] [address] Oct, [facility] [address] [id number] [address] [place] [address], [place] [address] Oct, [facility] [address] [id number] [address] [place] [address], [place] [address] Oct, [facility] [address] [id number] [address] [place] [address], [place] [address] Oct, [facility] [address] [id number] [address] [place] [address] Oct, [facility] [address] [id number] [address] [place] [address], [place] [address] Oct, [facility] [address] [id number] [address] [place] [address], [place] [address] Oct, [facility] [address] [id number] [address] [place] [address] Oct, [facility] [address] [id number] [address] [place] [phone] 12 Oct, 2014 [facility] [address] [id number] [address] [place] [address], [place] [address] Oct, [facility] [address] [id number] [address] [place] [address], [place] [address] Oct, [facility] [address] [id number] [address] [place] [address], [place] [address] Sep, [facility] [address] [id number] [address] [place] [address], [place] [address] Sep, [facility] [address] [id number] [address] [place] [address], [place] [address] Sep, [facility] [address] [id number] [address] [place] [address], [place] [address] Sep, [facility] [address] [id number] [address] [place] [address], [place] [address] Sep, [facility] [address] [id number] [address] [place] [address], [place] [address] Sep, [facility] [address] [id number] [address] [place] [address], [place] [address] Aug, [facility] [address] [id number] [address] [place] [address], [place] [address] Aug, [facility] [address] [id number] [address] [place] [address], [place] [address] Aug, [facility] [address] [id number] [address] [place] [address], [place] [address] Aug, [facility] [address] [id number] [address] [place] [address], [place] [address] Aug, [facility] [address] [id number] [address] [place] [address], [place] [address] Aug, [facility] [address] [id number] [address] [place] [address], [place] [address] Aug, [facility] [address] [id number] [address] [place] [address], [place] [address] Aug, [facility] [address] [id number] [address] [place] [address], [place] [address] Aug, [facility] [address] [id number] [address] [place] [address], [place] [address] Aug, [facility] [address] [id number] [address] [place] [address], [place] [address] Jul, [facility] [address] [id number] [address] [place] [address], [place] [address] Jul, [facility] [address] [id number] [address] [place] [address], [place] [address] Jul, [facility] [address] [id number] [address] [place] [address], [place] [address] Jul, [facility] [address] [id number] [address] [place] [address], [place] [address] Jun, [facility] [address] [id number] [address] [place] [address], [place] [address] Jun, [facility] [address] [id number] [address] [place] [address], [place] [address] Jun, [facility] [address] [id number] [address] [place] [address], [place] [address] Jun, [facility] [address] [id number] [address] [place] [address], [place] [address] Jun, [facility] [address] [id number] [address] [place] [address], [place] [address] Jun, [facility] [address] [id number] [address] [place] [address], [place] [address] Jun, [facility] [address] [id number] [address] [place] [address], [place] [address] Jun, [facility] [address] [id number] [address] [place] [address], [place] [address] 24 May, 2013 [facility] [address] [id number] [address] [place] [address], [place] [address] 24 May, 2014 [facility] [address] [id number] [address] [place] [address], [place] [address] May, [facility] [address] [id number] [address] [place] [address], [place] [address] 19 May, 2014 [facility] [address] [id number] [address] [place] [address], [place] [address] 15 May, 2014 [facility] [address] [id number] [address] [place] [address], [place] [address] 15 May, 2014 [facility] [address] [id number] [address] [place] [address], [place] [address] 15 May, 2014 [facility] [address] [id number] [address] [place] [address], [place] [address] 15 May, 2014 [facility] [address] [id number] [address] [place] [address], [place] [address] Apr, [facility] [address] [id number] [address] [place] [address], [place] [address] Apr, [facility] [address] [id number] [address] [place] [address], [place] [address] Apr, [facility] [address] [id number] [address] [place] [address], [place] [address] Apr, [facility] [address] [id number] [address] [place] [address], [place] [address] Apr, [facility] [address] [id number] [address] [place] [address], [place] [address] Apr, [facility] [address] [id number] [address] [place] [address], [place] [address] Apr, [facility] [address] [id number] [address] [place] [address], [place] [address] Apr, [facility] [address] [id number] [facility] [place] [address] Apr, [facility] [address] [id number] [address] [place] [address], [place] [address] Apr, [facility] [address] [id number] [address] [place] [address], [place] [address] Apr, [facility] [address] [id number] [address] [place] [address], [place] [address] Apr, [facility] [address] [id number] [address] [place] [address], [place] [address] Mar, [facility] [address] [id number] [address] [place] [address], [place] [address] Mar, [facility] [address] [id number] [address] [place] [address], [place] [address] Mar, [facility] [address] [id number] [address] [place] [address], [place] [address] Mar, [facility] [address] [id number] [address] [place] [address], [place] [address] Mar, [facility] [address] [id number] [address] [place] [address], [place] [address] Mar, [facility] [address] [id number] [address] [place] [address], [place] [address] Feb, [facility] [address] [id number] [address] [place] [address], [place] [address] Feb, [facility] [address] [id number] [address] [place] [address], [place] [address] Feb, [facility] [address] [id number] [address] [place] [address], [place] [address] Feb, [facility] [address] [id number] [address] [place] [address], [place] [address] Feb, [facility] [address] [id number] [address] [place] [address], [place] [address] Feb, [facility] [address] [id number] [address] [place] [address], [place] [address] Feb, [facility] [address] [id number] [address] [place] [address], [place] [address] Feb, [facility] [address] [id number] [address] [place] [address], [place] [address] Feb, [facility] [address] [id number] [address] [place] [address], [place] [address] Feb, [facility] [address] [id number] [address] [place] [address], [place] [address] Feb, [facility] [address] [id number] [address] [place] [address], [place] [address] Feb, [facility] [address] [id number] [address] [place] [address], [place] [address] Feb, [facility] [address] [id number] [address] [place] [address], [place] [address] Feb, [facility] [address] [id number] [address] [place] [address], [place] [address] January, [facility] [address] [id number] [address] [place] [address], [place] [address] January, [facility] [address] [id number] [address] [place] [address], [place] [address] January, [facility] [address] [id number] [address] [place] [address], [place] [address] January, [facility] [address] [id number] [address] [place] [address], [place] [address] January, [facility] [address] [id number] [address] [place] [address], [place] [address] January, [facility] [address] [id number] [address] [place] [address], [place] [address] Dec, [facility] [address] [id number] [address] [place] [address], [place] [address] Dec, [facility] [address] [id number] [facility] [place] [address] Dec, [facility] [address] [id number] [address] [place] [address], [place] [address] Dec, [facility] [address] [id number] [address] [place] [address], [place] [address] Dec, [facility] [address] [id number] [address] [place] [address], [place] [address] Dec, [facility] [address] [id number] [address] [place] [address], [place] [address] Dec, [facility] [address] [id number] [address] [place] [address], [place] [address] Dec, [facility] [address] [id number] [address] [place] [address], [place] [address] Nov, [facility] [address] [id number] [address] [place] [address], [place] [address] Nov, [facility] [address] [address] [id number] [address] [place] [address], [place] [address] Nov, [facility] [address] [id number] [address] [place] [address], [place] [address] Nov, [facility] [address] [id number] [address] [place] [address], [place] [address] Nov, [facility] [address] [id number] [address] [place] [address], [place] [address] Nov, [facility] [address] [id number] [address] [place] [address], [place] [address] Nov, [facility] [address] [id number] [address] [place] [address], [place] [address] Nov, [facility] [address] [id number] [address] [place] [address], [place] [address] Oct, [facility] [address] [id number] [address] [place] [address], [place] [address] Oct, [facility] [address] [id number] [address] [place] [address], [place] [address] Oct, [facility] [address] [id number] [address] [place] [address], [place] [address] Oct, [facility] [address] [id number] [address] [place] [address], [place] [address] Oct, [facility] [address] [id number] [address] [place] [address], [place] [address] Oct, [facility] [address] [id number] [address] [place] [address], [place] [address] Oct, [facility] [address] [id number] [address] [place] [address], [place] [address] Oct, [facility] [address] [id number] [address] [place] [address], [place] [address] Oct, [facility] [address] [id number] [address] [place] [address], [place] [address] Oct, [facility] [address] [id number] [address] [place] [address], [place] [address] Sep, [facility] [address] [id number] [address] [place] [address], [place] [address] Sep, [facility] [address] [id number] [address] [place] [address], [place] [address] Sep, [facility] [address] [id number] [address] [place] [address], [place] [address] Sep, [facility] [address] [id number] [address] [place] [address], [place] [address] Sep, [facility] [address] [id number] [address] [place] [address], [place] [address] Sep, [facility] [address] [id number] [address] [place] [address], [place] [address] Aug, [facility] [address] [id number] [address] [place] [address], [place] [address] Aug, [facility] [address] [id number] [address] [place] [address], [place] [address] Aug, [facility] [address] [id number] [address] [place] [address], [place] [address] Aug, [facility] [address] [id number] [address] [place] [address], [place] [address] Aug, [facility] [address] [id number] [address] [place] [address], [place] [address] Aug, [facility] [address] [id number] [address] [place] [address], [place] [address] Aug, [facility] [address] [id number] [address] [place] [address], [place] [address] Aug, [facility] [address] [id number] [address] [place] [address], [place] [address] Jul, [facility] [address] [id number] [address] [place] [address], [place] [address] Jul, [facility] [address] [id number] [address] [place] [address], [place] [address] Jul, [facility] [address] [id number] [address] [place] [address], [place] [address] Jul, [facility] [address] [id number] [address] [place] [address] Jul, [facility] [address] [id number] [address] [place] [address], [place] [address] Jul, [facility] [address] [id number] [address] [place] [address], [place] [address] Jun, [facility] [address] [id number] [address] [place] [address] Jun, [facility] [address] [id number] [address] [place] [address], [place] [address] Jun, [facility] [address] [id number] [address] [place] [address], [place] [address] 24 May, 2013 [facility] [address] [id number] [address] [place] [address], [place] [address] May, [facility] [address] [id number] [address] [place] [address], [place] [address] May, [facility] [address] [id number] [address] [place] [address], [place] [address] Apr, [facility] [address] [id number] [address] [place] [address], [place] [address] Apr, [facility] [address] [id number] [address] [place] [address], [place] [address] Apr, [facility] [address] [id number] [address] [place] [address], [place] [address] Apr, [facility] [address] [id number] [address] [place] [address], [place] [address] Mar, [facility] [address] [id number] [address] [place] [address], [place] [address] Mar, [facility] [address] [id number] [address] [place] [address], [place] [address] Mar, [facility] [address] [id number] [address] [place] [address], [place] [address] Mar, [facility] [address] [id number] [address] [place] [address], [place] [address] Feb, [facility] [address] [id number] [address] [place] [address], [place] [address] Feb, [facility] [address] [id number] [address] [place] [address], [place] [address] Feb, [facility] [address] [id number] [address] [place] [address], [place] [address] Feb, [facility] [address] [id number] [address] [place] [address], [place] [address] January, [facility] [address] [id number] [address] [place] [address], [place] [address] January, [facility] [address] [id number] [address] [place] [address], [place] [address] January, [facility] [address] [id number] [address] [place] [address], [place] [address] Nov, [facility] [address] [id number] [address] [place] [address], [place] [address] Nov, [facility] [address] [id number] [address] [place] [address], [place] [address] Oct, [facility] [address] [id number] [address] [place] [address], [place] [address] Oct, [facility] [address] [id number] [address] [place] [address], [place] [address] Oct, [facility] [address] [id number] [address] [place] [address], [place] [address] Oct, [facility] [address] [id number] [address] [place] [address], [place] [address] Sep, [facility] [address] [id number] [address] [place] [address], [place] [address] Sep, [facility] [address] [id number] [address] [place] [address], [place] [address] Sep, [facility] [address] [id number] [address] [place] [address], [place] [address] Aug, [facility] [address] [id number] [address] [place] [address], [place] [address] Aug, [facility] [address] [id number] [address] [place] [address], [place] [address] Aug, [facility] [address] [id number] [address] [place] [address], [place] [address] Aug, [facility] [address] [id number] [address] [place] [address], [place] [address] Aug, [facility] [address] [id number] [address] [place] [address], [place] [address] Aug, [facility] [address] [id number] [address] [place] [address], [place] [address] Jul, [facility] [address] [id number] [address] [place] [address], [place] [address] Jul, [facility] [address] [id number] [address] [place] [address], [place] [address] Jun, [facility] [address] [id number] [address] [place] [address], [place] [address] Jun, [facility] [address] [id number] [address] [place] [address], [place] [address] Jun, [facility] [address] [id number] [address] [place] [address], [place] [address] Apr, [facility] [address] [id number] [address] [place] [address], [place] [address] Apr, [facility] [address] [id number] [address] [place] [address], [place] [address] Mar, [facility] [address] [id number] [address] [place] [address], [place] [address] Mar, [facility] [address] [id number] [address] [place] [address], [place] [address] Mar, [facility] [address] [id number] [address] [place] [address], [place] [address] Mar, [facility] [address] [id number] [address] [place] [address], [place] [address] Feb, [facility] [address] [id number] [address] [place] [address], [place] [address] Feb, [facility] [address] [id number] [address] [place] [address], [place] [address] Feb, [facility] [address] [id number] [address] [place] [address], [place] [address] January, [facility] [address] [id number] [address] [place] [address], [place] [address] January, [facility] [address] [id number] [address] [place] [address], [place] [address] January, [facility] [address] [id number] [address] [place] [address], [place] [address] January, [facility] [address] [id number] [address] [place] [address], [place] [address] Dec, [facility] [address] [id number] [address] [place] [address], [place] [address] Dec, [facility] [address] [id number] [address] [place] [address], [place] [address] Nov, [facility] [address] [id number] [address] [place] [address], [place] [address] Nov, [facility] [address] [id number] [address] [place] [address], [place] [address] Oct, [facility] [address] [id number] [address] [place] [address], [place] [address] Oct, [facility] [address] [id number] [address] [place] [address], [place] [address] Sep, [facility] [address] [id number] [address] [place] [address], [place] [address] Sep, [facility] [address] [id number] [address] [place] [address], [place] [address] Sep, [facility] [address] [id number] [address] [place] [address], [place] [address] Sep, [facility] [address] [id number] [address] [place] [address], [place] [address] 16 Aug, 2011 [facility] [address] [id number] [address] [place] [address], [place] [address] 16 Aug, 2011 [facility] [address] [id number] [address] [place] [address], [place] [address] 09 Aug, 2011 [facility] [address] [id number] [address] [place] [address], [place] [address] 04 Jul, 2011 [facility] [address] [id number] [address] [place] [address], [place] [address] 22 Aug, 2010 [facility] [address] [id number] [address] [place] [address], [place] [address] Aug, [facility] [address] [id number] [address] [place] [address], [place] [address] Aug, [facility] [address] [id number] [address] [place] [address], [place] [address] Aug, [facility] [address] [id number] [address] [place] [address], [place] [address] Jul, [facility] [address] [id number] [address] [place] [address], [place] [address] Jul, [facility] [address] [id number] [address] [place] [address], [place] [address] Jul, [facility] [address] [id number] [address] [place] [address], [place] [address] Jun, [facility] [address] [id number] [address] [place] [address] Jun, [facility] [address] [id number] [address] [place] [address] Jun, [facility] [address] [id number] [address] [place] [address] Apr, [facility] [address] [id number] [address] [place] [address] Mar, IMMUNIZATIONS No Known Immunizations SOCIAL HISTORY Never Assessed REASON FOR VISIT PLAN OF CARE VITAL SIGNS Height 66 in 2012-03-20 Temperature 98.3 degrees Fahrenheit 2012-03-20 Heart Rate 80 bpm 2012-03-20 Respiratory Rate 20 2012-03-20 Blood pressure systolic 140 mmHg 2012-03-20 Blood pressure diastolic 102 mmHg 2012-03-20 MEDICATIONS No Known Medications RESULTS No Results [...]
--- OUTSIDE RECORDS SUMMARY | 2020-03-18 14:58 | XMS REPORT ---
Author Author George WAYNE Organization [facility] Address [address] [place] [address] Care Team Providers Care Digital Computer Systems Analyst Name Role Phone REYNA WAYNE Unavailable PROBLEMS Type Condition ICD9-CM Code AFG54-WO Code Onset Dates Condition S tatus SNOMED Code Problem Hypertension, benign I10 Active 54983194 Problem Other chronic pain G89.29 Active 8 5086475 Problem Lumbago with sciatica, unspecified side M54.40 Active 182920976 Problem Controlled type 2 diabetes m ellitus without complication, without long- term current use of insulin E11.9 Active 998684442 Problem Lumbago with sciatica, right side M54.41 Active 184637510 Problem Adjustment disorder with disturbance of emotion F4 3.29 Active 90706101 Problem MELE (obstructive sleep apnea) G47.33 Active 36265044 Problem Non morbid obesity E66.9 Active 4 78476157 Problem Hammer toe of left foot M20.42 Active 766162353 Problem Mood disorder F39 Active 507500 05 Problem Deformity of left foot M21.962 Active 174652246 Problem Lumbago with sciatica, left side M54.42 Active 353063345 Problem Erectile dysfunction due to diseases classified elsewhere N52.1 Active 854638195 Problem Obstructive sleep apnea syndrome G47.33 Active 33742021 Problem Type 2 diabetes mellitus wit h diabetic neuropathy, without long-term current use of insulin E11.40 Active 28147 006 Problem Essential hypertension I10 Active 84320785 ALLERGIES No Information ENCOUNTERS Encounter Location Date Diagnosis [facility] [address] [facility] [id number] [address] [place] [id number] 13 Dec, 2019 Acute diffuse otitis externa of left ear H60.312 [facility] [address] [facility] [id number] [address] [place] [id number] 18 Nov, 2019 Viral URI J06.9 and Flu-like symptoms R68.89 [place] [address] [address] [facility] [id number] [address] [place] [phone] 09 Nov, 2019 Type 2 diabetes mellitus wit h diabetic neuropathy, without long- term current use of insulin E11.40 ; Family history of prostate cancer Z80.42 and Prostate cancer screening Z12.5 [place] [address] [address] [place] [id number] [address] [place] [id number] Nov, [place] [address] [place] [id number] [address] [phone] Sep, [place] [address] [place] [id number] [address] [phone] Aug, [place] [address] [place] [id number] [place] [phone] Jul, Lumbago with sciatica, unspe cified side M54.40 [place] [address] [place] [id number] [address] [phone] Jun, Lumbago with sciatica, unspe cified side M54.40 [place] [address] [place] [id number] [address] [phone] Jun, URI, acute J06.9 [place] [address] [place] [id number] [address] [place] [phone] May, Lumbago with sciatica, unspe cified side M54.40 [place] [address] [facility] [id number] [address] [place] [phone] May, [place] [address] [place] [id number] [address] [place] [id number] 12 May, 2019 Type 2 diabetes mellitus wit h diabetic neuropathy, without long- term current use of insulin E11.40 and Hammer toe of left foot M20.42 [place] [address] [address] [facility] [id number] [address] [place] [phone] May, [place] [address] [place] [id number] [address] [phone] May, [facility] [address] [place] [id number] [address] [phone] May, [facility] [address] [place] [id number] [address] [id number] Apr, Lumbago with sciatica, unspe cified side M54.40 [facility] [address] [place] [id number] [address] [phone] Apr, [facility] [address] [place] [id number] [address] [place] [phone] Apr, [address] [id number] [address] Apr, Hammer toe of left foot M20. 42 ; Chest pain R07.9 ; Preoperative examination Z01.818 and Morbid obesity E66.01 [place] [address] [place] [id number] [address] [phone] Apr, Morbid obesity E66.01 ; Bron chitis J40 and High risk medications (not anticoagulants) long-term use Z79.899 [place] [address] [place] [id number] [address] [phone] Apr, Lumbago with sciatica, unspe cified side M54.40 [facility] [address] [place] [id number] [address] [phone] Apr, [facility] [address] [place] [id number] [address] [place] [phone] Mar, Lumbar neuritis M54.16 and M orbid obesity E66.01 [facility] [address] [place] [id number] [address] [phone] Mar, [facility] [address] [place] [id number] [address] [phone] Mar, [facility] [address] [place] [id number] [address] [phone] Mar, Lumbago with sciatica, unspe cified side M54.40 [facility] [address] [id number] [address] [place] [id number] Mar, Morbid obesity E66.01 ; Gabe lara R05 ; 2+ pitting edema R60.9 and Controlled type 2 diabetes mellitus without complication, without long-term current use of insulin E11.9 [facility] [address] [id number] [address] [phone] Feb, [facility] [address] [id number] [address] [phone] Feb, Lumbago with sciatica, unspe cified side M54.40 [facility] [address] [id number] [address] [phone] Feb, [facility] [address] [id number] [address] [phone] Feb, Controlled type 2 diabetes m ellitus without complication, without long-term current use of insulin E11.9 and Morbid obesity E66.01 [facility] [address] [id number] [address] [phone] January, Deformity of left foot M21.9 62 [facility] [address] [id number] [address] [phone] January, [facility] [address] [id number] [address] [phone] January, Lumbago with sciatica, unspe cified side M54.40 [facility] [address] [id number] [address] [phone] January, [facility] [address] [id number] [address] [phone] January, Lumbago with sciatica, unspe cified side M54.40 [facility] [address] [id number] [address] [phone] January, [facility] [address] [facility] [id number] [address] [place] [phone] January, Acute right-sided thoracic b ack pain M54.6 [facility] [address] [place] [id number] [address] [phone] January, Acute right-sided thoracic b ack pain M54.6 [facility] [address] [address] January, Chest pain, unspecified type R07.9 ; Morbid obesity E66.01 and Scabies B86 [facility] [address] [place] [id number] [address] [place] [phone] Dec, Lumbago with sciatica, unspe cified side M54.40 [place] [address] [address] Dec, Toenail fungus B35.1 [facility] [address] [place] [id number] [address] [phone] Dec, Toenail fungus B35.1 [facility] [address] [address] Dec, Acute right-sided thoracic b ack pain M54.6 [place] [place] [id number] [address] [id number] Dec, Lumbago with sciatica, unspe cified side M54.40 [facility] [address] [place] [id number] [address] [place] [phone] Nov, Hammer toe of left foot M20. 42 ; Deformity of left foot M21.962 and Type 2 diabetes mellitus with diabetic neuropathy, without long-term current use of insulin E11.40 [facility] [address] [facility] [id number] [address] [phone] Nov, Acute right-sided thoracic b ack pain M54.6 ; Morbid obesity E66.01 and Rt flank pain R10.9 [place] [address] [address] [facility] [id number] [address] [phone] Nov, Lumbago with sciatica, unspe cified side M54.40 [place] [address] [place] [id number] [address] [phone] Oct, Lumbago with sciatica, unspe cified side M54.40 [place] [address] [place] [id number] [place] [address] Sep, Lumbago with sciatica, unspe cified side M54.40 [place] [address] [place] [id number] [address] [phone] Sep, [place] [address] [place] [id number] [place] [phone] Sep, BMI 40.0-44.9, adult Z68.41 ; Lumbago with sciatica, left side M54.42 ; Lumbago with sciatica, right side M54.41 and Other chronic pain G89.29 [place] [address] [place] [id number] [address] [place] [phone] Aug, Lumbago with sciatica, unspe cified side M54.40 [place] [address] [place] [id number] [address] [phone] Aug, Type 2 diabetes mellitus wit h diabetic neuropathy, without long- term current use of insulin E11.40 ; Hammer toe of left foot M20.42 ; Hypertension, benign I10 and Frequent headaches R51 [place] [address] [place] [id number] [address] [phone] Jul, Lumbago with sciatica, unspe cified side M54.40 [place] [address] [place] [id number] [address] [phone] Jul, [place] [address] [place] [id number] [address] [phone] Jul, Essential hypertension I10 a nd Controlled type 2 diabetes mellitus without complication, without long-term current use of insulin E11.9 [facility] [address] [facility] [id number] [address] [place] [phone] Jul, Essential hypertension I10 ; Controlled type 2 diabetes mellitus without complication, without long-term current use of insulin E11.9 and BMI 40.0-44.9, adult Z68.41 [facility] [address] [facility] [id number] [address] [place] [id number] Jul, Dysfunction of left eustachi an tube H69.82 [facility] [address] [id number] [address] [place] [phone] Jul, Lumbago with sciatica, unspe cified side M54.40 [facility] [address] [id number] [address] [place] [id number] Jun, Dental examination Z01.20 [facility] [address] [facility] [id number] [address] [place] [phone] Jun, Lumbago with sciatica, unspe cified side M54.40 and Encounter for immunization Z23 [facility] [address] [facility] [id number] [address] [id number] Jun, Dysfunction of left eustachi an tube H69.82 [place] [address] [facility] [id number] [place] [id number] Jun, Dental examination Z01.20 [facility] [address] [id number] [address] [phone] Jun, Other chronic pain G89.29 [facility] [address] [id number] [address] [place] [address] [id number] Jun, Dental examination Z01.20 [facility] [address] [id number] [address] [phone] Jun, [facility] [address] [id number] [address] [phone] Jun, Bronchitis J40 ; Dysfunction of left eustachian tube H69.82 and BMI 45.0-49.9, adult Z68.42 [facility] [address] [place] [id number] [address] [id number] Jun, Lumbago with sciatica, unspe cified side M54.40 [facility] [address] [place] [id number] [address] [id number] May, Type 2 diabetes mellitus wit h diabetic neuropathy, without long- term current use of insulin E11.40 and Hypertension, benign I10 [facility] [address] [place] [id number] [address] [phone] May, Lumbago with sciatica, unspe cified side M54.40 [facility] [address] [place] [id number] [address] [id number] Apr, [facility] [address] [phone] Apr, Controlled type 2 diabetes m ellitus without complication, without long-term current use of insulin E11.9 ; Insect bite (nonvenomous), right ankle, initial encounter S90.561A ; Local infection of the skin and subcutaneous tissue, unspecified L08.9 ; Acute swimmer''s ear of left side H60.332 and BMI 45.0-49.9, adult Z68.42 [place] [place] [id number] [address] [id number] Apr, Lumbago with sciatica, unspe cified side M54.40 [facility] [address] [place] [id number] [address] [id number] Mar, [place] [address] [place] [id number] [place] [address] Mar, Lumbago with sciatica, unspe cified side M54.40 [facility] [address] [place] [id number] [address] [id number] Feb, Lumbago with sciatica, unspe cified side M54.40 [facility] [address] [facility] [id number] [address] [id number] Feb, BMI 45.0-49.9, adult Z68.42 and Obstructive sleep apnea syndrome G47.33 [place] [address] [place] [id number] [address] [phone] January, Lumbar neuritis M54.16 [place] [address] [facility] [id number] [address] [phone] January, Lumbago with sciatica, unspe cified side M54.40 [place] [address] [place] [id number] [place] [phone] Dec, Controlled type 2 diabetes m maribell without complication, without long-term current use of insulin E11.9 ; Erectile dysfunction due to diseases classified elsewhere N52.1 and Mood disorder F39 [place] [address] [place] [id number] [address] [phone] Dec, Lumbago with sciatica, unspe cified side M54.40 [place] [address] [place] [id number] [address] [id number] Dec, Obstructive sleep apnea synd luis G47.33 [place] [address] [place] [id number] [address] [phone] Nov, Lumbago with sciatica, unspe cified side M54.40 ; Hypertension, benign I10 and Mood disorder F39 [facility] [address] [place] [id number] [address] [phone] Nov, Other chronic pain G89.29 [facility] [address] [facility] [id number] [address] [phone] Nov, Lumbago with sciatica, unspe cified side M54.40 [facility] [address] [id number] [address] [place] [address] [id number] Nov, Dental examination Z01.20 [facility] [address] [facility] [id number] [address] [phone] Oct, [facility] [address] [facility] [id number] [address] [phone] Oct, Lumbago with sciatica, unspe cified side M54.40 [facility] [address] [facility] [id number] [address] [phone] Oct, Lumbago with sciatica, unspe cified side M54.40 [facility] [address] [facility] [id number] [address] [phone] Oct, [facility] [address] [facility] [id number] [address] [phone] Oct, [facility] [address] [facility] [id number] [address] [place] [address] [id number] Oct, Dental examination Z01.20 [facility] [address] [facility] [id number] [address] [phone] Oct, [facility] [address] [facility] [id number] [address] [phone] Oct, Pain in right knee M25.561 [facility] [address] [facility] [id number] [address] [phone] Sep, [facility] [address] [facility] [id number] [address] [phone] Sep, Other chronic pain G89.29 [facility] [address] [facility] [id number] [address] [phone] Sep, Lumbago with sciatica, unspe cified side M54.40 [facility] [address] [facility] [id number] [address] [phone] Sep, [facility] [address] [facility] [id number] [address] [place] [phone] Sep, Viral URI J06.9 and BMI 45.0 -49.9, adult Z68.42 [facility] [address] [facility] [id number] [address] [place] [id number] Aug, Foreign body hand S60.559A a nd BMI 45.0-49.9, adult Z68.42 [facility] [address] [facility] [id number] [address] [phone] Aug, [facility] [address] [place] [id number] [address] [phone] Aug, Lumbago with sciatica, unspe cified side M54.40 [facility] [address] [facility] [id number] [address] [place] [id number] Aug, Vertigo R42 ; Dysfunction of both eustachian tubes H69.83 ; Low back pain M54.5 and Other chronic pain G89.29 [facility] [address] [facility] [id number] [address] [phone] Aug, Dizziness R42 and Acute bila teral otitis media H66.93 [facility] [address] [facility] [id number] [address] [phone] Aug, Lumbago with sciatica, unspe cified side M54.40 [facility] [address] [facility] [id number] [address] [place] [address] [id number] Jul, Dental examination Z01.20 [facility] [address] [place] [id number] [address] [phone] Jul, [facility] [address] [facility] [id number] [address] [phone] Jul, [facility] [address] [facility] [id number] [address] [phone] Jul, Dysfunction of both eustachi an tubes H69.83 [facility] [address] [facility] [id number] [address] [id number] 07 Jul, 2017 Controlled type 2 diabetes m taraitus without complication, without long-term current use of insulin E11.9 [facility] [address] [id number] [address] [phone] Jul, Controlled type 2 diabetes m ellitus without complication, without long-term current use of insulin E11.9 [facility] [address] [id number] [address] [phone] Jul, Dizziness R42 and BMI 40.0-4 4.9, adult Z68.41 [facility] [address] [facility] [id number] [address] [place] [phone] Jul, Controlled type 2 diabetes m ellitus without complication, without long-term current use of insulin E11.9 [facility] [address] [facility] [id number] [address] [phone] Jul, Lumbago with sciatica, unspe cified side M54.40 [facility] [id number] [place] [id number] Jul, Dental examination Z01.20 [facility] [address] [id number] [address] [phone] Jun, [facility] [address] [id number] [place] [id number] Jun, Dental examination Z01.20 [facility] [address] [facility] [id number] [address] [place] [phone] Jun, Controlled type 2 diabetes m ellitus without complication, without long-term current use of insulin E11.9 [facility] [address] [id number] [address] [id number] Jun, Lumbago with sciatica, unspe cified side M54.40 [facility] [id number] [place] [address] [id number] May, Dental examination Z01.20 [facility] [address] [id number] [address] [phone] May, Controlled type 2 diabetes m ellitus without complication, without long-term current use of insulin E11.9 [facility] [address] [id number] [address] [place] [id number] May, 2017 Dental examination Z01.20 [facility] [address] [facility] [id number] [address] [place] [phone] 18 May, 2017 Bronchitis J40 ; Dry mouth R 68.2 ; Non morbid obesity E66.9 and Controlled type 2 diabetes mellitus without complication, without long-term current use of insulin E11.9 [facility] [address] [facility] [id number] [address] [place] [phone] 16 May, 2017 Encounter for immunization Z 23 [place] [address] [facility] [id number] [place] [phone] 07 May, 2017 Lumbago with sciatica, unspe cified side M54.40 [facility] [address] [facility] [id number] [address] [phone] 05 May, 2017 [facility] [address] [id number] [place] [address] [id number] Apr, Dental examination Z01.20 [facility] [address] [id number] [address] [phone] Apr, Lumbago with sciatica, unspe cified side M54.40 [facility] [address] [facility] [id number] [address] [place] [phone] Mar, Lumbago with sciatica, left side M54.42 [facility] [address] [facility] [id number] [address] [place] [phone] Mar, [facility] [address] [facility] [id number] [address] [phone] Mar, Lumbar neuritis M54.16 [facility] [address] [facility] [id number] [address] [phone] Mar, [facility] [address] [id number] [address] [place] [address] [id number] Mar, Dental examination Z01.20 [place] [address] [facility] [id number] [address] [phone] Mar, MELE (obstructive sleep apnea ) G47.33 ; Neuropathy involving both lower extremities G57.93 and Frequent headaches R51 [place] [address] [facility] [id number] [address] [phone] Mar, Lumbago with sciatica, unspe cified side M54.40 [place] [address] [place] [id number] [address] [phone] Feb, Lumbago with sciatica, unspe cified side M54.40 and Controlled type 2 diabetes mellitus without complication, without long-term current use of insulin E11.9 [place] [address] [place] [id number] [place] [phone] January, Hypertension, benign I10 and Bilateral low back pain with sciatica, sciatica laterality unspecified M54.40 [place] [address] [place] [id number] [place] [phone] January, Hypertension, benign I10 ; L umbago with sciatica, unspecified side M54.40 ; Other chronic pain G89.29 and Controlled type 2 diabetes mellitus without complication, without long-term current use of insulin E11.9 [place] [address] [place] [id number] [address] [id number] January, Lumbar neuritis M54.16 [place] [address] [place] [id number] [address] [phone] January, [place] [address] [place] [id number] [address] [phone] Dec, Lumbago with sciatica, right side M54.41 and Lumbar neuritis M54.16 [place] [address] [place] [id number] [address] [phone] Dec, Lumbar neuritis M54.16 [place] [address] [place] [id number] [address] [phone] Dec, Lumbar neuritis M54.16 [place] [place] [id number] [address] [phone] Nov, Lumbar neuritis M54.16 ; Lum bago with sciatica, right side M54.41 ; Controlled type 2 diabetes mellitus without complication, without long-term current use of insulin E11.9 and Rash and nonspecific skin eruption R21 [place] [address] [place] [id number] [address] [place] [phone] Nov, Lumbar neuritis M54.16 and P derickpeter miroslava L23.7 [place] [address] [place] [id number] [address] [phone] Oct, Lumbar neuritis M54.16 ; Cou ghing R05 and Mood disorder F39 [place] [address] [place] [id number] [address] [phone] Sep, Lumbago with sciatica, right side M54.41 [place] [address] [place] [id number] [address] [phone] Sep, Adjustment disorder with dis turbance of emotion F43.29 and Pain management R52 [place] [address] [place] [id number] [address] [phone] Sep, [place] [address] [place] [id number] [address] [phone] Sep, [place] [address] [place] [id number] [address] [id number] Sep, Controlled type 2 diabetes evens reyna without complication, without long-term current use of insulin E11.9 and Lumbago with sciatica, unspecified side M54.40 [place] [address] [place] [id number] [address] [place] [id number] Aug, Controlled type 2 diabetes evens reyna without complication, without long-term current use of insulin E11.9 ; Pain in right knee M25.561 ; Pain in left knee M25.562 ; Other chronic pain G89.29 ; Lumbago with sciatica, right side M54.41 ; Neck pain M54.2 and Encounter for immunization Z23 [facility] [address] [id number] [address] [id number] Jul, [facility] [address] [id number] [address] [phone] Jul, Controlled type 2 diabetes m maribell without complication, without long-term current use of insulin E11.9 [facility] [address] [id number] [address] [phone] Jul, [facility] [address] [id number] [address] [phone] Jul, [facility] [address] [id number] [address] [id number] Jul, Lumbago with sciatica, left side M54.42 ; Lumbago with sciatica, right side M54.41 and Other chronic pain G89.29 [facility] [address] [id number] [address] [phone] Jul, [facility] [address] [id number] [address] [phone] Jul, [facility] [address] [id number] [address] [phone] Jun, [facility] [address] [id number] [address] [phone] Jun, Lumbago with sciatica, right side M54.41 and Other chronic pain G89.29 [facility] [address] [id number] [address] [place] [id number] Jun, Cervicalgia M54.2 ; Lumbago with sciatica, unspecified side M54.40 and Other chronic pain G89.29 [facility] [address] [id number] [address] [id number] 15 May, 2016 Pain in right knee M25.561 ; Pain in left knee M25.562 and Other chronic pain G89.29 [facility] [address] [id number] [address] [phone] May, [facility] [address] [id number] [address] [phone] Apr, Other chronic pain G89.29 an d Pain in right knee M25.561 [facility] [address] [id number] [address] [phone] Apr, Pain in right knee M25.561 [facility] [address] [id number] [address] [phone] Mar, [facility] [address] [id number] [address] [phone] Mar, Mood disorder F39 and Contro lled type 2 diabetes mellitus without complication, without long-term current use of insulin E11.9 [facility] [address] [id number] [address] [id number] Mar, Pain in right knee M25.561 ; Pain in left knee M25.562 ; Other chronic pain G89.29 ; Obstructive sleep apnea syndrome G47.33 ; Mood disorder F39 and Controlled type 2 diabetes mellitus without complication, without long- term current use of insulin E11.9 [facility] [address] [id number] [address] [phone] Mar, [facility] [address] [id number] [address] [place] [address] [id number] Feb, Dental examination Z01.20 [facility] [address] [id number] [address] [phone] Feb, [facility] [address] [id number] [address] [phone] Feb, Osteoarthritis of right knee , unspecified osteoarthritis type M17.9 [facility] [address] [id number] [address] [phone] January, [facility] [address] [id number] [address] [place] [address] [id number] January, Dental examination Z01.20 [facility] [address] [id number] [address] [phone] January, [facility] [address] [id number] [address] [place] [address] [id number] January, Dental examination Z01.20 an d Caries K02.9 [facility] [address] [id number] [address] [phone] Dec, Encounter for other preproce dural examination Z01.818 [facility] [address] [id number] [address] [phone] Dec, [facility] [address] [id number] [address] [phone] Dec, Knee pain M25.569 [facility] [address] [id number] [address] [phone] Dec, Pain in right knee M25.561 [facility] [address] [id number] [address] [phone] Dec, [facility] [address] [id number] [address] [phone] Dec, [facility] [address] [id number] [address] [phone] Dec, Encounter for immunization Z 23 [facility] [address] [id number] [address] [phone] Dec, [facility] [address] [id number] [address] [phone] Dec, [facility] [address] [id number] [address] [phone] Nov, [facility] [address] [id number] [address] [phone] Nov, Hypertension, benign I10 ; C ervicalgia M54.2 ; Pain in right knee M25.561 and Pain in left knee M25.562 [place] [address] [facility] [id number] [address] [phone] Oct, [facility] [address] [facility] [id number] [address] [phone] Oct, [facility] [address] [facility] [id number] [address] [phone] Oct, Osteoarthritis of both knees M17.0 [place] [address] [facility] [id number] [address] [phone] Oct, [place] [address] [facility] [id number] [address] [phone] Oct, Low back pain M54.5 [place] [address] [facility] [id number] [address] [id number] Oct, Low back pain M54.5 ; Sciati ca, unspecified side M54.30 ; Pain in right knee M25.561 ; Pain in left knee M25.562 ; Pain in right shoulder M25.511 and Pain in left shoulder M25.512 [place] [address] [facility] [id number] [address] [phone] Oct, [place] [address] [facility] [id number] [address] [phone] Sep, Pain in right hip M25.551 [place] [address] [facility] [id number] [address] [phone] Sep, Acute upper respiratory infe ction, unspecified J06.9 [place] [address] [facility] [id number] [address] [phone] Aug, Acute upper respiratory infe ction, unspecified J06.9 and Other viral agents as the cause of diseases classified elsewhere B97.89 [place] [address] [facility] [id number] [address] [phone] Jul, Arthritis M19.90 [facility] [address] [id number] [address] [phone] Jun, Arthritis M19.90 ; Pain in r ight hip M25.551 ; Pain in left hip M25.552 ; Bilateral low back pain with sciatica, sciatica laterality unspecified M54.40 ; Neck pain M54.2 ; Upper back pain M54.9 and Knee pain, unspecified laterality M25.569 [facility] [address] [id number] [address] [phone] May, Osteoarthritis of both knees 715.96 [facility] [address] [id number] [address] [phone] May, Rash 782.1 [facility] [address] [id number] [address] [phone] Apr, Lumbar strain 847.2 [facility] [address] [id number] [address] [phone] Apr, Rash 782.1 [facility] [address] [id number] [address] [phone] Mar, Rash 782.1 [facility] [address] [facility] [id number] [address] [phone] Feb, Rash 782.1 ; Hemorrhoids 455 .6 and Constipation 564.00 [facility] [address] [id number] [address] [phone] Feb, Osteoarthritis of both knees 715.96 [facility] [address] [id number] [address] [phone] January, [facility] [address] [id number] [address] [phone] Dec, [facility] [address] [facility] [id number] [address] [phone] Dec, [facility] [address] [id number] [address] [phone] 13 Dec, 2014 [facility] [address] [id number] [address] [place] [address], [place] [address] 18 Nov, 2014 [facility] [address] [id number] [address] [place] [address], [place] [address] 18 Nov, 2014 [facility] [address] [id number] [address] [place] [address], [place] [address] 18 Nov, 2014 [facility] [address] [id number] [address] [place] [address], [place] [phone] 18 Nov, 2014 [facility] [address] [id number] [address] [place] [address], [place] [address] Nov, [facility] [address] [id number] [address] [place] [address], [place] [address] Nov, [facility] [address] [id number] [address] [place] [address], [place] [phone] Oct, [facility] [address] [id number] [address] [place] [address], [place] [address] Oct, [facility] [address] [id number] [address] [place] [address], [place] [address] Oct, 2014 [facility] [address] [id number] [address] [place] [address], [place] [address] Oct, [facility] [address] [id number] [address] [place] [address], [place] [address] Oct, 2014 [facility] [address] [id number] [address] [place] [address], [place] [address] Oct, 2014 [facility] [address] [id number] [address] [place] [address], [place] [address] Oct, 2014 [facility] [address] [id number] [address] [place] [address], [place] [address] Oct, 2014 [facility] [address] [id number] [address] [place] [address], [place] [address] Oct, [facility] [address] [id number] [address] [place] [address], [place] [address] Oct, [facility] [address] [id number] [address] [place] [address], [place] [address] Oct, [facility] [address] [id number] [address] [place] [address], [place] [address] Sep, [facility] [address] [id number] [address] [place] [address], [place] [address] Sep, [facility] [address] [id number] [address] [place] [address], [place] [address] Sep, [facility] [address] [id number] [address] [place] [address], [place] [address] Sep, [facility] [address] [id number] [address] [place] [address], [place] [address] Sep, [facility] [address] [id number] [address] [place] [address], [place] [address] Sep, [facility] [address] [id number] [address] [place] [address], [place] [address] Aug, [facility] [address] [id number] [address] [place] [address], [place] [address] Aug, [facility] [address] [id number] [address] [place] [address], [place] [address] Aug, [facility] [address] [id number] [address] [place] [address], [place] [address] Aug, [facility] [address] [id number] [address] [place] [address], [place] [address] Aug, [facility] [address] [id number] [address] [place] [address], [place] [address] Aug, [facility] [address] [id number] [address] [place] [address], [place] [address] Aug, [facility] [address] [id number] [address] [place] [address], [place] [address] Aug, [facility] [address] [id number] [address] [place] [address], [place] [address] Aug, [facility] [address] [id number] [address] [place] [address], [place] [address] Aug, [facility] [address] [id number] [address] [place] [address], [place] [address] Jul, [facility] [address] [id number] [address] [place] [address], [place] [address] Jul, [facility] [address] [id number] [address] [place] [address], [place] [address] Jul, [facility] [address] [id number] [address] [place] [address], [place] [address] Jul, [facility] [address] [id number] [address] [place] [address], [place] [address] Jun, [facility] [address] [id number] [address] [place] [address], [place] [address] Jun, [facility] [address] [id number] [address] [place] [address], [place] [address] Jun, [facility] [address] [id number] [address] [place] [address], [place] [address] Jun, [facility] [address] [id number] [address] [place] [address], [place] [address] Jun, [facility] [address] [id number] [address] [place] [address], [place] [address] Jun, [facility] [address] [id number] [address] [place] [address], [place] [address] Jun, [facility] [address] [id number] [address] [place] [address], [place] [address] Jun, [facility] [address] [id number] [address] [place] [address], [place] [address] May, [facility] [address] [id number] [facility] [place] [address] 24 May, 2013 [facility] [address] [id number] [facility] [place] [address] 19 May, 2014 [facility] [address] [id number] [facility] [place] [address] 19 May, 2013 [facility] [address] [id number] [address] [place] [address], [place] [address] 15 May, 2014 [facility] [address] [id number] [address] [place] [address], [place] [address] 15 May, 2014 [facility] [address] [id number] [address] [place] [address], [place] [address] 15 May, 2014 [facility] [address] [id number] [address] [place] [address], [place] [address] May, [facility] [address] [id number] [address] [place] [address], [place] [address] Apr, [facility] [address] [id number] [address] [place] [address], [place] [address] Apr, [facility] [address] [id number] [address] [place] [address], [place] [address] Apr, [facility] [address] [id number] [address] [place] [address], [place] [address] Apr, [facility] [address] [id number] [address] [place] [address], [place] [address] Apr, [facility] [address] [id number] [address] [place] [address], [place] [address] Apr, [facility] [address] [id number] [address] [place] [address], [place] [address] Apr, [facility] [address] [id number] [address] [place] [address], [place] [address] Apr, [facility] [address] [id number] [address] [place] [address], [place] [address] Apr, [facility] [address] [id number] [address] [place] [address], [place] [address] Apr, [facility] [address] [id number] [address] [place] [address], [place] [address] Apr, [facility] [address] [id number] [address] [place] [address], [place] [address] Apr, [facility] [address] [id number] [address] [place] [address], [place] [address] Mar, [facility] [address] [id number] [address] [place] [address], [place] [address] Mar, [facility] [address] [id number] [address] [place] [address], [place] [address] Mar, [facility] [address] [id number] [address] [place] [address], [place] [address] Mar, [facility] [address] [id number] [address] [place] [address], [place] [address] Mar, [facility] [address] [id number] [address] [place] [address], [place] [address] Mar, [facility] [address] [id number] [address] [place] [address], [place] [address] Feb, [facility] [address] [id number] [address] [place] [address], [place] [address] Feb, [facility] [address] [id number] [address] [place] [address] [address] Feb, [facility] [address] [id number] [address] [place] [address], [place] [address] Feb, [facility] [address] [id number] [address] [place] [address], [place] [address] Feb, [facility] [address] [id number] [address] [place] [address], [place] [address] Feb, [facility] [address] [id number] [facility] [place] [address] Feb, [facility] [address] [id number] [address] [place] [address], [place] [address] Feb, [facility] [address] [id number] [address] [place] [address], [place] [address] Feb, [facility] [address] [id number] [address] [place] [address], [place] [address] Feb, [facility] [address] [id number] [address] [place] [address], [place] [address] Feb, [facility] [address] [id number] [address] [place] [address], [place] [address] Feb, [facility] [address] [id number] [address] [place] [address], [place] [address] Feb, [facility] [address] [id number] [address] [place] [address], [place] [address] Feb, [facility] [address] [id number] [address] [place] [address], [place] [address] January, [facility] [address] [id number] [address] [place] [address], [place] [address] January, [facility] [address] [id number] [address] [place] [address], [place] [address] January, [facility] [address] [id number] [address] [place] [address], [place] [address] January, [facility] [address] [id number] [address] [place] [address], [place] [address] January, [facility] [address] [id number] [address] [place] [address], [place] [address] January, [facility] [address] [id number] [address] [place] [address], [place] [address] Dec, [facility] [address] [id number] [address] [place] [address], [place] [address] Dec, [facility] [address] [id number] [address] [place] [address], [place] [address] Dec, [facility] [address] [id number] [address] [place] [address], [place] [address] Dec, [facility] [address] [id number] [address] [place] [address], [place] [address] Dec, [facility] [address] [id number] [address] [place] [address], [place] [address] Dec, [facility] [address] [id number] [address] [place] [address], [place] [address] Dec, [facility] [address] [id number] [address] [place] [address], [place] [address] Dec, [facility] [address] [id number] [address] [place] [address], [place] [address] Nov, [facility] [address] [id number] [address] [place] [address], [place] [address] Nov, [facility] [address] [id number] [address] [place] [address], [place] [address] Nov, [facility] [address] [id number] [address] [place] [address], [place] [address] Nov, [facility] [address] [id number] [address] [place] [address], [place] [address] Nov, [facility] [address] [id number] [address] [place] [address], [place] [address] Nov, [facility] [address] [id number] [address] [place] [address], [place] [address] Nov, [facility] [address] [id number] [address] [place] [address], [place] [address] Nov, [facility] [address] [id number] [address] [place] [address], [place] [address] Oct, [facility] [address] [id number] [address] [place] [address], [place] [address] Oct, [facility] [address] [id number] [address] [place] [address], [place] [address] Oct, [facility] [address] [id number] [address] [place] [address], [place] [address] Oct, [facility] [address] [id number] [address] [place] [address], [place] [address] Oct, [facility] [address] [id number] [address] [place] [address], [place] [address] Oct, [facility] [address] [id number] [address] [place] [address], [place] [address] Oct, [facility] [address] [id number] [address] [place] [address], [place] [address] Oct, [facility] [address] [id number] [address] [place] [address], [place] [address] Oct, [facility] [address] [id number] [address] [place] [address], [place] [address] Oct, [facility] [address] [id number] [address] [place] [address], [place] [address] Sep, [facility] [address] [id number] [address] [place] [address], [place] [address] Sep, [facility] [address] [id number] [address] [place] [address], [place] [address] Sep, [facility] [address] [id number] [address] [place] [address], [place] [address] Sep, [facility] [address] [id number] [address] [place] [address], [place] [address] Sep, [facility] [address] [id number] [address] [place] [address], [place] [address] Sep, [facility] [address] [id number] [address] [place] [address], [place] [address] Aug, [facility] [address] [id number] [address] [place] [address], [place] [address] Aug, [facility] [address] [id number] [address] [place] [address], [place] [address] Aug, [facility] [address] [id number] [address] [place] [address], [place] [address] Aug, [facility] [address] [id number] [address] [place] [address], [place] [address] Aug, [facility] [address] [id number] [address] [place] [address], [place] [address] Aug, [facility] [address] [id number] [address] [place] [address], [place] [address] Aug, [facility] [address] [id number] [address] [place] [address], [place] [address] Aug, [facility] [address] [id number] [address] [place] [address], [place] [address] Jul, [facility] [address] [id number] [address] [place] [address], [place] [address] Jul, [facility] [address] [id number] [address] [place] [address], [place] [address] Jul, [facility] [address] [id number] [address] [place] [address], [place] [address] Jul, [facility] [address] [id number] [address] [address] Jul, [facility] [address] [id number] [address] [place] [address], [place] [address] Jul, [facility] [address] [id number] [address] [place] [address], [place] [address] Jun, [facility] [address] [id number] [address] [place] [address], [place] [address] Jun, [facility] [address] [id number] [address] [place] [address] [place] [address] Jun, [facility] [address] [id number] [address] [place] [address], [place] [address] 24 May, 2013 [facility] [address] [id number] [address] [place] [address], [place] [address] May, [facility] [address] [id number] [address] [place] [address], [place] [address] May, [facility] [address] [id number] [address] [place] [address], [place] [address] Apr, [facility] [address] [id number] [address] [place] [address], [place] [address] Apr, [facility] [address] [id number] [address] [place] [address], [place] [address] Apr, [facility] [address] [id number] [address] [place] [address], [place] [address] Apr, [facility] [address] [id number] [address] [place] [address], [place] [address] Mar, [facility] [address] [id number] [address] [place] [address], [place] [address] Mar, [facility] [address] [id number] [address] [place] [address], [place] [address] Mar, [facility] [address] [id number] [address] [place] [address], [place] [address] Mar, [facility] [address] [id number] [address] [place] [address], [place] [address] Feb, [facility] [address] [id number] [address] [place] [address], [place] [address] Feb, [facility] [address] [id number] [address] [place] [address], [place] [address] Feb, [facility] [address] [id number] [address] [place] [address], [place] [address] Feb, [facility] [address] [id number] [address] [place] [address], [place] [address] January, [facility] [address] [id number] [address] [place] [address], [place] [address] January, [facility] [address] [id number] [address] [place] [address], [place] [address] January, [facility] [address] [id number] [address] [place] [address], [place] [address] Nov, [facility] [address] [id number] [address] [place] [address], [place] [address] Nov, [facility] [address] [id number] [address] [place] [address], [place] [address] Oct, [facility] [address] [id number] [address] [place] [address], [place] [address] Oct, [facility] [address] [id number] [address] [place] [address], [place] [address] Oct, [facility] [address] [id number] [address] [place] [address], [place] [address] Oct, [facility] [address] [id number] [address] [place] [address], [place] [address] Sep, [facility] [address] [id number] [address] [place] [address], [place] [address] Sep, [facility] [address] [id number] [address] [place] [address], [place] [address] Sep, [facility] [address] [id number] [address] [place] [address], [place] [address] Aug, [facility] [address] [id number] [address] [place] [address], [place] [address] Aug, [facility] [address] [id number] [address] [place] [address], [place] [address] Aug, [facility] [address] [id number] [address] [place] [address], [place] [address] Aug, [facility] [address] [id number] [address] [place] [address], [place] [address] Aug, [facility] [address] [id number] [address] [place] [address], [place] [address] Aug, [facility] [address] [id number] [address] [place] [address], [place] [address] Jul, [facility] [address] [id number] [address] [place] [address], [place] [address] Jul, [facility] [address] [id number] [address] [place] [address], [place] [address] Jun, [facility] [address] [id number] [address] [place] [address], [place] [address] Jun, [facility] [address] [id number] [address] [place] [address], [place] [address] Jun, [facility] [address] [id number] [address] [place] [address], [place] [address] Apr, [facility] [address] [id number] [address] [place] [address], [place] [address] Apr, [facility] [address] [id number] [address] [place] [address], [place] [address] Mar, [facility] [address] [id number] [address] [place] [address], [place] [address] Mar, [facility] [address] [id number] [address] [address] Mar, [facility] [address] [id number] [address] [place] [address], [place] [address] Mar, [facility] [address] [id number] [address] [place] [address], [place] [address] Feb, [facility] [address] [id number] [address] [place] [address], [place] [address] Feb, [facility] [address] [id number] [address] [place] [address], [place] [address] Feb, [facility] [address] [id number] [address] [place] [address], [place] [address] January, [facility] [address] [id number] [address] [place] [address], [place] [address] January, [facility] [address] [id number] [address] [place] [address], [place] [address] January, [facility] [address] [id number] [address] [place] [address], [place] [address] January, [facility] [address] [id number] [address] [place] [address], [place] [address] Dec, [facility] [address] [id number] [address] [place] [address], [place] [address] Dec, [facility] [address] [id number] [address] [place] [address], [place] [address] Nov, [facility] [address] [id number] [address] [place] [address], [place] [address] Nov, [facility] [address] [id number] [address] [place] [address], [place] [address] 16 Oct, 2011 [facility] [address] [id number] [address] [place] [address], [place] [address] Oct, [facility] [address] [id number] [address] [place] [address], [place] [address] Sep, [facility] [address] [id number] [address] [place] [address], [place] [address] Sep, [facility] [address] [id number] [address] [place] [address], [place] [address] Sep, [facility] [address] [id number] [address] [place] [address], [place] [address] Sep, [facility] [address] [id number] [address] [place] [address], [place] [address] Aug, [facility] [address] [id number] [address] [place] [id number] 16 Aug, 2011 [facility] [address] [id number] [address] [address] Aug, [facility] [address] [id number] [address] [address] Jul, [facility] [address] [id number] [address] [address] Aug, [facility] [address] [id number] [address] [id number] Aug, [facility] [address] [id number] [address] [phone] Aug, [facility] [address] [id number] [address] [address] Aug, [facility] [address] [id number] [address] [id number] Jul, [facility] [address] [id number] [address] [address] Jul, [facility] [address] [id number] [address] [address] Jul, [facility] [address] [id number] [address] [id number] Jun, [facility] [address] [id number] [address] [id number] Jun, [facility] [address] [id number] [address] [phone] Jun, [facility] [address] [id number] [address] [id number] Apr, [facility] [address] [id number] [address] [id number] Mar, IMMUNIZATIONS No Known Immunizations SOCIAL HISTORY [...]
--- OUTSIDE RECORDS SUMMARY | 2020-03-18 14:58 | XMS REPORT ---
Author Author George Ramos Organization [facility] Address [address] [place] [address] Care Team Providers Care Knockout Worker Name Role Phone Richard ALKA Unavailable PROBLEMS Type Condition ICD9-CM Code ADW69-TQ Code Onset Dates Condition S tatus SNOMED Code Problem Hypertension, benign I10 Active 13426361 Problem Other chronic pain G89.29 Active 8 2556016 Problem Lumbago with sciatica, unspecified side M54.40 Active 093403285 Problem Controlled type 2 diabetes m ellitus without complication, without long- term current use of insulin E11.9 Active 646664689 Problem Lumbago with sciatica, right side M54.41 Active 057047534 Problem Adjustment disorder with disturbance of emotion F4 3.29 Active 10371766 Problem MELE (obstructive sleep apnea) G47.33 Active 59143452 Problem Non morbid obesity E66.9 Active 4 75886641 Problem Hammer toe of left foot M20.42 Active 620530341 Problem Mood disorder F39 Active 827430 05 Problem Deformity of left foot M21.962 Active 616670147 Problem Lumbago with sciatica, left side M54.42 Active 153098560 Problem Erectile dysfunction due to diseases classified elsewhere N52.1 Active 318438302 Problem Obstructive sleep apnea syndrome G47.33 Active 84492810 Problem Type 2 diabetes mellitus wit h diabetic neuropathy, without long-term current use of insulin E11.40 Active 20763 006 Problem Essential hypertension I10 Active 48914435 ALLERGIES No Information ENCOUNTERS Encounter Location Date Diagnosis [facility] [address] [facility] [id number] [address] [place] [id number] Dec, Acute diffuse otitis externa of left ear H60.312 [facility] [address] [facility] [id number] [address] [place] [id number] 18 Nov, 2019 Viral URI J06.9 and Flu-like symptoms R68.89 [place] [address] [place] [id number] [address] [place] [phone] Nov, Type 2 diabetes mellitus wit h diabetic neuropathy, without long- term current use of insulin E11.40 ; Family history of prostate cancer Z80.42 and Prostate cancer screening Z12.5 [place] [address] [place] [id number] [address] [place] [phone] Nov, [place] [address] [place] [id number] [address] [place] [id number] Sep, [place] [address] [place] [id number] [address] [place] [phone] Aug, [place] [address] [place] [id number] [place] [id number] Jul, Lumbago with sciatica, unspe cified side M54.40 [place] [address] [place] [id number] [address] [place] [id number] Jun, Lumbago with sciatica, unspe cified side M54.40 [place] [address] [address] Jun, URI, acute J06.9 [place] [address] [address] May, Lumbago with sciatica, unspe cified side M54.40 [place] [address] [place] [id number] [address] [place] [phone] May, [place] [address] [place] [id number] [address] [place] [id number] 12 May, 2019 Type 2 diabetes mellitus wit h diabetic neuropathy, without long- term current use of insulin E11.40 and Hammer toe of left foot M20.42 [place] [address] [place] [id number] [address] [place] [phone] May, [place] [address] [place] [id number] [place] [phone] May, [facility] [address] [facility] [id number] [address] [place] [id number] May, [facility] [address] [facility] [id number] [address] [place] [id number] Apr, Lumbago with sciatica, unspe cified side M54.40 [facility] [address] [facility] [id number] [address] [place] [phone] Apr, [facility] [address] [facility] [id number] [address] [place] [id number] Apr, [id number] [place] [phone] Apr, Hammer toe of left foot M20. 42 ; Chest pain R07.9 ; Preoperative examination Z01.818 and Morbid obesity E66.01 [facility] [address] [place] [id number] [address] [place] [id number] Apr, Morbid obesity E66.01 ; Bron chitis J40 and High risk medications (not anticoagulants) long-term use Z79.899 [facility] [address] [place] [id number] [address] [place] [id number] Apr, Lumbago with sciatica, unspe cified side M54.40 [facility] [address] [place] [id number] [address] [place] [id number] Apr, [facility] [address] [facility] [id number] [address] [place] [phone] Mar, Lumbar neuritis M54.16 and M orbid obesity E66.01 [facility] [address] [facility] [id number] [address] [place] [phone] Mar, [facility] [address] [facility] [id number] [address] [place] [phone] Mar, [facility] [address] [place] [id number] [address] [place] [id number] Mar, Lumbago with sciatica, unspe cified side M54.40 [facility] [address] [id number] [address] [place] [phone] Mar, Morbid obesity E66.01 ; Gabe lara R05 ; 2+ pitting edema R60.9 and Controlled type 2 diabetes mellitus without complication, without long-term current use of insulin E11.9 [facility] [address] [id number] [address] [place] [phone] Feb, [facility] [address] [id number] [address] [place] [phone] Feb, Lumbago with sciatica, unspe cified side M54.40 [facility] [address] [id number] [address] [place] [phone] Feb, [facility] [address] [facility] [id number] [address] [place] [phone] Feb, Controlled type 2 diabetes m ellitus without complication, without long-term current use of insulin E11.9 and Morbid obesity E66.01 [facility] [address] [id number] [address] [place] [id number] January, Deformity of left foot M21.9 62 [facility] [address] [id number] [address] [place] [id number] January, [facility] [address] [id number] [address] [place] [id number] January, Lumbago with sciatica, unspe cified side M54.40 [facility] [address] [id number] [address] [place] [phone] January, [facility] [address] [facility] [id number] [address] [place] [id number] January, Lumbago with sciatica, unspe cified side M54.40 [facility] [address] [id number] [address] [place] [id number] January, [facility] [address] [facility] [id number] [address] [place] [phone] January, Acute right-sided thoracic b ack pain M54.6 [facility] [address] [facility] [id number] [address] [place] [phone] January, Acute right-sided thoracic b ack pain M54.6 [facility] [address] [facility] [id number] [address] [place] [phone] January, Chest pain, unspecified type R07.9 ; Morbid obesity E66.01 and Scabies B86 [place] [address] [facility] [id number] [address] [place] [id number] Dec, Lumbago with sciatica, unspe cified side M54.40 [facility] [address] [place] [id number] [address] [place] [phone] Dec, Toenail fungus B35.1 [facility] [address] [facility] [id number] [address] [place] [id number] Dec, Toenail fungus B35.1 [facility] [address] [facility] [id number] [address] [place] [id number] Dec, Acute right-sided thoracic b ack pain M54.6 [facility] [address] [facility] [id number] [address] [place] [id number] Dec, Lumbago with sciatica, unspe cified side M54.40 [facility] [address] [facility] [id number] [address] [place] [id number] Nov, Hammer toe of left foot M20. 42 ; Deformity of left foot M21.962 and Type 2 diabetes mellitus with diabetic neuropathy, without long-term current use of insulin E11.40 [facility] [address] [facility] [id number] [address] [place] [phone] Nov, Acute right-sided thoracic b ack pain M54.6 ; Morbid obesity E66.01 and Rt flank pain R10.9 [facility] [address] [place] [id number] [address] [place] [phone] Nov, Lumbago with sciatica, unspe cified side M54.40 [facility] [address] [place] [id number] [address] [place] [id number] Oct, Lumbago with sciatica, unspe cified side M54.40 [place] [address] [place] [id number] [place] [phone] Sep, Lumbago with sciatica, unspe cified side M54.40 [place] [address] [place] [id number] [place] [phone] Sep, [place] [address] [place] [id number] [place] [id number] Sep, BMI 40.0-44.9, adult Z68.41 ; Lumbago with sciatica, left side M54.42 ; Lumbago with sciatica, right side M54.41 and Other chronic pain G89.29 [place] [address] [phone] Aug, Lumbago with sciatica, unspe cified side M54.40 [place] [address] [place] [id number] [place] [phone] Aug, Type 2 diabetes mellitus wit h diabetic neuropathy, without long- term current use of insulin E11.40 ; Hammer toe of left foot M20.42 ; Hypertension, benign I10 and Frequent headaches R51 [place] [address] [place] [id number] [address] [place] [id number] Jul, Lumbago with sciatica, unspe cified side M54.40 [place] [address] [place] [id number] [address] [place] [id number] Jul, [place] [address] [place] [id number] [place] [phone] Jul, Essential hypertension I10 a nd Controlled type 2 diabetes mellitus without complication, without long-term current use of insulin E11.9 [place] [id number] [place] [id number] [address] [place] [phone] Jul, Essential hypertension I10 ; Controlled type 2 diabetes mellitus without complication, without long-term current use of insulin E11.9 and BMI 40.0-44.9, adult Z68.41 [place] [address] [facility] [id number] [place] [phone] Jul, Dysfunction of left eustachi an tube H69.82 [place] [address] [place] [id number] [address] [place] [phone] Jul, Lumbago with sciatica, unspe cified side M54.40 [facility] [address] [place] [id number] [place] [address] [id number] Jun, Dental examination Z01.20 [place] [address] [place] [id number] [address] [place] [phone] Jun, Lumbago with sciatica, unspe cified side M54.40 and Encounter for immunization Z23 [place] [address] [address] Jun, Dysfunction of left eustachi an tube H69.[address] [place] [id number] [place] [address] [id number] Jun, Dental examination Z01.20 [facility] [address] [place] [id number] [address] [place] [phone] Jun, Other chronic pain G89.29 [facility] [id number] [place] [id number] Jun, Dental examination Z01.20 [facility] [address] [facility] [id number] [address] [place] [phone] Jun, [place] [address] [place] [id number] [address] [place] [id number] Jun, Bronchitis J40 ; Dysfunction of left eustachian tube H69.82 and BMI 45.0-49.9, adult Z68.42 [facility] [address] [address] Jun, Lumbago with sciatica, unspe cified side M54.40 [facility] [address] [place] [id number] May, Type 2 diabetes mellitus wit h diabetic neuropathy, without long- term current use of insulin E11.40 and Hypertension, benign I10 [facility] [address] [address] May, Lumbago with sciatica, unspe cified side M54.40 [facility] [address] [phone] Apr, [facility] [address] [address] Apr, Controlled type 2 diabetes m ellitus without complication, without long-term current use of insulin E11.9 ; Insect bite (nonvenomous), right ankle, initial encounter S90.561A ; Local infection of the skin and subcutaneous tissue, unspecified L08.9 ; Acute swimmer''s ear of left side H60.332 and BMI 45.0-49.9, adult Z68.42 [place] [address] [place] [id number] [address] [place] [phone] Apr, Lumbago with sciatica, unspe cified side M54.40 [facility] [address] [place] [id number] Mar, [place] [address] [place] [id number] Mar, Lumbago with sciatica, unspe cified side M54.40 [place] [address] [place] [id number] [address] [place] [phone] Feb, Lumbago with sciatica, unspe cified side M54.40 [place] [address] [place] [id number] [address] [place] [id number] Feb, BMI 45.0-49.9, adult Z68.42 and Obstructive sleep apnea syndrome G47.33 [place] [address] [place] [id number] [place] [address] January, Lumbar neuritis M54.16 [place] [address] [place] [id number] [place] [phone] January, Lumbago with sciatica, unspe cified side M54.40 [place] [address] [place] [id number] [place] [phone] Dec, Controlled type 2 diabetes m ellitus without complication, without long-term current use of insulin E11.9 ; Erectile dysfunction due to diseases classified elsewhere N52.1 and Mood disorder F39 [place] [address] [address] Dec, Lumbago with sciatica, unspe cified side M54.40 [place] [address] [place] [id number] [address] [place] [id number] Dec, Obstructive sleep apnea synd luis G47.33 [place] [address] [place] [id number] [address] [place] [phone] Nov, Lumbago with sciatica, unspe cified side M54.40 ; Hypertension, benign I10 and Mood disorder F39 [place] [address] [place] [id number] [address] [place] [phone] Nov, Other chronic pain G89.29 [place] [address] [place] [id number] [address] [place] [id number] Nov, Lumbago with sciatica, unspe cified side M54.40 [facility] [address] [id number] [address] [place] [address] [id number] Nov, Dental examination Z01.20 [facility] [address] [id number] [address] [place] [phone] Oct, [facility] [address] [id number] [address] [place] [id number] Oct, Lumbago with sciatica, unspe cified side M54.40 [facility] [address] [id number] [address] [place] [phone] Oct, Lumbago with sciatica, unspe cified side M54.40 [facility] [address] [id number] [address] [place] [id number] Oct, [facility] [address] [id number] [address] [place] [phone] Oct, [facility] [address] [facility] [id number] [address] [place] [address] [id number] Oct, Dental examination Z01.20 [facility] [address] [facility] [id number] [address] [place] [id number] Oct, [facility] [address] [facility] [id number] [address] [place] [phone] Oct, Pain in right knee M25.561 [facility] [address] [facility] [id number] [address] [place] [id number] Sep, [facility] [address] [facility] [id number] [address] [place] [id number] Sep, Other chronic pain G89.29 [facility] [address] [id number] [address] [place] [phone] Sep, Lumbago with sciatica, unspe cified side M54.40 [facility] [address] [facility] [id number] [address] [place] [phone] Sep, [facility] [address] [facility] [id number] [address] [place] [id number] Sep, Viral URI J06.9 and BMI 45.0 -49.9, adult Z68.42 [facility] [address] [facility] [id number] [address] [place] [id number] Aug, Foreign body hand S60.559A a nd BMI 45.0-49.9, adult Z68.42 [facility] [address] [place] [id number] [address] [place] [id number] Aug, [facility] [address] [place] [id number] [address] [place] [id number] Aug, Lumbago with sciatica, unspe cified side M54.40 [place] [address] [place] [id number] [place] [phone] Aug, Vertigo R42 ; Dysfunction of both eustachian tubes H69.83 ; Low back pain M54.5 and Other chronic pain G89.29 [facility] [address] [place] [id number] [address] [place] [id number] Aug, Dizziness R42 and Acute bila teral otitis media H66.93 [place] [address] [place] [id number] [address] [place] [id number] Aug, Lumbago with sciatica, unspe cified side M54.40 [facility] [address] [place] [id number] [address] [place] [address] [id number] Jul, Dental examination Z01.20 [facility] [address] [facility] [id number] [address] [place] [phone] Jul, [place] [address] [place] [id number] [address] [place] [id number] Jul, [place] [address] [place] [id number] [address] [place] [id number] Jul, Dysfunction of both eustachi an tubes H69.83 [facility] [address] [place] [id number] [address] [place] [id number] Jul, Controlled type 2 diabetes m taraitus without complication, without long-term current use of insulin E11.9 [facility] [address] [id number] [address] [place] [id number] Jul, Controlled type 2 diabetes m ellitus without complication, without long-term current use of insulin E11.9 [facility] [address] [id number] [address] [place] [phone] Jul, Dizziness R42 and BMI 40.0-4 4.9, adult Z68.41 [facility] [address] [id number] [address] [place] [id number] Jul, Controlled type 2 diabetes m ellitus without complication, without long-term current use of insulin E11.9 [facility] [address] [id number] [address] [place] [id number] Jul, Lumbago with sciatica, unspe cified side M54.40 [facility] [id number] [place] [address] [id number] Jul, Dental examination Z01.20 [facility] [address] [id number] [address] [place] [phone] Jun, [facility] [address] [id number] [place] [id number] Jun, Dental examination Z01.20 [facility] [address] [id number] [address] [place] [phone] Jun, Controlled type 2 diabetes m ellitus without complication, without long-term current use of insulin E11.9 [facility] [address] [id number] [address] [place] [phone] Jun, Lumbago with sciatica, unspe cified side M54.40 [facility] [address] [id number] [address] [place] [address] [id number] May, Dental examination Z01.20 [facility] [address] [id number] [address] [place] [phone] May, Controlled type 2 diabetes m ellitus without complication, without long-term current use of insulin E11.9 [facility] [address] [id number] [address] [place] [id number] 19 May, 2017 Dental examination Z01.20 [facility] [address] [facility] [id number] [address] [place] [phone] 18 May, 2017 Bronchitis J40 ; Dry mouth R 68.2 ; Non morbid obesity E66.9 and Controlled type 2 diabetes mellitus without complication, without long-term current use of insulin E11.9 [facility] [address] [id number] [address] [place] [phone] 16 May, 2017 Encounter for immunization Z 23 [facility] [address] [facility] [id number] [place] [phone] 07 May, 2017 Lumbago with sciatica, unspe cified side M54.40 [facility] [facility] [address] [facility] [id number] [address] [place] [id number] 05 May, 2017 [facility] [address] [facility] [id number] [place] [address] [id number] Apr, Dental examination Z01.20 [facility] [address] [facility] [id number] [address] [place] [phone] Apr, Lumbago with sciatica, unspe cified side M54.40 [facility] [address] [id number] [address] [place] [id number] Mar, Lumbago with sciatica, left side M54.42 [facility] [address] [id number] [address] [place] [phone] Mar, [facility] [address] [id number] [address] [place] [id number] Mar, Lumbar neuritis M54.16 [facility] [address] [facility] [id number] [address] [place] [phone] Mar, [facility] [address] [place] [id number] [place] [address] [id number] Mar, Dental examination Z01.20 [place] [address] [id number] [address] [place] [phone] Mar, MELE (obstructive sleep apnea ) G47.33 ; Neuropathy involving both lower extremities G57.93 and Frequent headaches R51 [place] [address] [id number] [address] [place] [phone] Mar, Lumbago with sciatica, unspe cified side M54.40 [place] [address] [id number] [address] [place] [phone] Feb, Lumbago with sciatica, unspe cified side M54.40 and Controlled type 2 diabetes mellitus without complication, without long-term current use of insulin E11.9 [place] [address] [id number] [address] [place] [phone] January, Hypertension, benign I10 and Bilateral low back pain with sciatica, sciatica laterality unspecified M54.40 [place] [address] [id number] [address] [place] [phone] January, Hypertension, benign I10 ; L umbago with sciatica, unspecified side M54.40 ; Other chronic pain G89.29 and Controlled type 2 diabetes mellitus without complication, without long-term current use of insulin E11.9 [place] [address] [id number] [address] [place] [phone] January, Lumbar neuritis M54.16 [place] [address] [id number] [address] [place] [phone] January, [place] [address] [id number] [address] [place] [id number] Dec, Lumbago with sciatica, right side M54.41 and Lumbar neuritis M54.16 [place] [address] [id number] [address] [place] [phone] Dec, Lumbar neuritis M54.16 [place] [address] [id number] [address] [place] [id number] Dec, Lumbar neuritis M54.16 [place] [address] [facility] [id number] [address] [place] [phone] Nov, Lumbar neuritis M54.16 ; Lum bago with sciatica, right side M54.41 ; Controlled type 2 diabetes mellitus without complication, without long-term current use of insulin E11.9 and Rash and nonspecific skin eruption R21 [place] [address] [place] [id number] [address] [place] [phone] Nov, Lumbar neuritis M54.16 and P oison miroslava L23.7 [place] [address] [place] [id number] [place] [phone] Oct, Lumbar neuritis M54.16 ; Cou ghing R05 and Mood disorder F39 [place] [address] [place] [id number] [address] [place] [phone] Sep, Lumbago with sciatica, right side M54.41 [place] [address] [place] [id number] [address] [place] [id number] Sep, Adjustment disorder with dis turbance of emotion F43.29 and Pain management R52 [place] [address] [place] [id number] [address] [place] [phone] Sep, [place] [address] [place] [id number] [address] [place] [phone] Sep, [place] [address] [place] [id number] [address] [place] [phone] Sep, Controlled type 2 diabetes evens reyna without complication, without long-term current use of insulin E11.9 and Lumbago with sciatica, unspecified side M54.40 [place] [address] [place] [id number] [address] [place] [id number] Aug, Controlled type 2 diabetes evens reyna without complication, without long-term current use of insulin E11.9 ; Pain in right knee M25.561 ; Pain in left knee M25.562 ; Other chronic pain G89.29 ; Lumbago with sciatica, right side M54.41 ; Neck pain M54.2 and Encounter for immunization Z23 [facility] [address] [id number] [address] [place] [id number] Jul, [facility] [address] [id number] [address] [place] [id number] Jul, Controlled type 2 diabetes m maribell without complication, without long-term current use of insulin E11.9 [facility] [address] [id number] [address] [place] [phone] 17 Jul, 2016 [facility] [address] [id number] [address] [place] [id number] Jul, [facility] [address] [id number] [address] [place] [phone] Jul, Lumbago with sciatica, left side M54.42 ; Lumbago with sciatica, right side M54.41 and Other chronic pain G89.29 [facility] [address] [id number] [address] [place] [id number] Jul, [facility] [address] [id number] [address] [place] [phone] Jul, [facility] [address] [id number] [address] [place] [phone] Jun, [facility] [address] [id number] [address] [place] [phone] Jun, Lumbago with sciatica, right side M54.41 and Other chronic pain G89.29 [facility] [address] [id number] [address] [place] [id number] Jun, Cervicalgia M54.2 ; Lumbago with sciatica, unspecified side M54.40 and Other chronic pain G89.29 [facility] [address] [id number] [address] [place] [id number] 15 May, 2016 Pain in right knee M25.561 ; Pain in left knee M25.562 and Other chronic pain G89.29 [facility] [address] [id number] [address] [place] [id number] May, [facility] [address] [id number] [address] [place] [id number] Apr, Other chronic pain G89.29 an d Pain in right knee M25.561 [facility] [address] [id number] [address] [place] [id number] Apr, Pain in right knee M25.561 [facility] [address] [id number] [address] [place] [id number] Mar, [place] [address] [id number] [address] [place] [phone] Mar, Mood disorder F39 and Contro lled type 2 diabetes mellitus without complication, without long-term current use of insulin E11.9 [facility] [address] [id number] [address] [place] [id number] Mar, Pain in right knee M25.561 ; Pain in left knee M25.562 ; Other chronic pain G89.29 ; Obstructive sleep apnea syndrome G47.33 ; Mood disorder F39 and Controlled type 2 diabetes mellitus without complication, without long- term current use of insulin E11.9 [facility] [address] [id number] [address] [place] [phone] Mar, [facility] [address] [id number] [address] [place] [address] [id number] Feb, Dental examination Z01.20 [facility] [address] [id number] [address] [place] [phone] Feb, [facility] [address] [id number] [address] [place] [id number] Feb, Osteoarthritis of right knee , unspecified osteoarthritis type M17.9 [facility] [address] [id number] [address] [place] [id number] January, [facility] [address] [id number] [address] [place] [address] [id number] January, Dental examination Z01.20 [facility] [address] [id number] [address] [place] [phone] January, [facility] [address] [id number] [address] [place] [address] [id number] January, Dental examination Z01.20 an d Caries K02.9 [facility] [address] [id number] [address] [place] [id number] Dec, Encounter for other preproce dural examination Z01.818 [facility] [address] [id number] [address] [place] [id number] Dec, [facility] [address] [id number] [address] [place] [id number] Dec, Knee pain M25.569 [facility] [address] [id number] [address] [place] [id number] Dec, Pain in right knee M25.561 [facility] [address] [id number] [address] [place] [id number] Dec, [facility] [address] [id number] [address] [place] [id number] Dec, [facility] [address] [id number] [address] [place] [phone] Dec, Encounter for immunization Z 23 [facility] [address] [id number] [address] [place] [phone] Dec, [facility] [address] [id number] [address] [place] [id number] Dec, [facility] [address] [id number] [address] [place] [phone] Nov, [facility] [address] [id number] [address] [place] [phone] 02 Mar, 2016 Hypertension, benign I10 ; C ervicalgia M54.2 ; Pain in right knee M25.561 and Pain in left knee M25.562 [place] [id number] [facility] [id number] [address] [place] [phone] Oct, [place] [address] [facility] [id number] [address] [place] [phone] Oct, [place] [address] [place] [id number] [place] [phone] Oct, Osteoarthritis of both knees M17.0 [place] [address] [facility] [id number] [address] [place] [phone] Oct, [place] [address] [place] [id number] [place] [id number] Oct, Low back pain M54.5 [place] [address] [place] [id number] [place] [phone] Oct, Low back pain M54.5 ; Sciati ca, unspecified side M54.30 ; Pain in right knee M25.561 ; Pain in left knee M25.562 ; Pain in right shoulder M25.511 and Pain in left shoulder M25.512 [place] [address] [place] [id number] [address] [place] [phone] Oct, [place] [address] [place] [id number] [address] [place] [phone] Sep, Pain in right hip M25.551 [place] [address] [place] [id number] [address] [place] [phone] Sep, Acute upper respiratory infe ction, unspecified J06.9 [place] [address] [place] [id number] [address] [place] [id number] Aug, Acute upper respiratory infe ction, unspecified J06.9 and Other viral agents as the cause of diseases classified elsewhere B97.89 [place] [address] [place] [id number] [address] [place] [phone] Jul, Arthritis M19.90 [facility] [address] [id number] [address] [place] [id number] Jun, Arthritis M19.90 ; Pain in r ight hip M25.551 ; Pain in left hip M25.552 ; Bilateral low back pain with sciatica, sciatica laterality unspecified M54.40 ; Neck pain M54.2 ; Upper back pain M54.9 and Knee pain, unspecified laterality M25.569 [facility] [address] [id number] [address] [place] [id number] May, Osteoarthritis of both knees 715.96 [place] [address] [id number] [address] [place] [id number] May, Rash 782.1 [place] [address] [facility] [id number] [address] [place] [phone] Apr, Lumbar strain 847.2 [place] [address] [facility] [id number] [address] [place] [phone] Apr, Rash 782.1 [facility] [address] [facility] [id number] [address] [place] [phone] Mar, Rash 782.1 [facility] [address] [facility] [id number] [address] [place] [id number] Feb, Rash 782.1 ; Hemorrhoids 455 .6 and Constipation 564.00 [place] [address] [id number] [address] [place] [id number] Feb, Osteoarthritis of both knees 715.96 [facility] [address] [id number] [address] [place] [phone] January, [facility] [address] [facility] [id number] [address] [place] [phone] Dec, [place] [address] [facility] [id number] [address] [place] [id number] Dec, [facility] [address] [id number] [address] [place] [address], [place] [address] 13 Dec, 2014 [facility] [address] [id number] [address] [place] [address], [place] [phone] 18 Nov, 2014 [facility] [address] [id number] [address] [place] [address], [place] [address] 18 Nov, 2014 [facility] [address] [id number] [address] [place] [address], [place] [address] Nov, [facility] [address] [id number] [address] [place] [address], [place] [address] Nov, [facility] [address] [id number] [address] [place] [address], [place] [address] Nov, [facility] [address] [id number] [address] [place] [address], [place] [address] Nov, [facility] [address] [id number] [address] [place] [address], [place] [address] Oct, [facility] [address] [id number] [address] [place] [address], [place] [address] Oct, [facility] [address] [id number] [address] [place] [address], [place] [address] Oct, [facility] [address] [id number] [address] [place] [address], [place] [address] Oct, [facility] [address] [id number] [address] [place] [phone] Oct, [facility] [address] [id number] [address] [place] [address], [place] [address] Oct, [facility] [address] [id number] [address] [place] [address], [place] [address] Oct, [facility] [address] [id number] [address] [place] [id number] Oct, [facility] [address] [id number] [address] [place] [id number] 12 Oct, 2014 [facility] [address] [id number] [address] [place] [address], [place] [address] Oct, [facility] [address] [id number] [address] [place] [address], [place] [address] Oct, [facility] [address] [id number] [address] [place] [address], [place] [address] Sep, [facility] [address] [id number] [address] [place] [address], [place] [address] Sep, [facility] [address] [id number] [address] [place] [address], [place] [address] Sep, [facility] [address] [id number] [address] [place] [address], [place] [address] Sep, [facility] [address] [id number] [address] [place] [address], [place] [address] Sep, [facility] [address] [id number] [address] [place] [address], [place] [address] Sep, [facility] [address] [id number] [address] [place] [address], [place] [address] Aug, [facility] [address] [id number] [address] [place] [address], [place] [address] Aug, [facility] [address] [id number] [address] [place] [address], [place] [address] Aug, [facility] [address] [id number] [address] [place] [address], [place] [address] Aug, [facility] [address] [id number] [address] [place] [address], [place] [address] Aug, [facility] [address] [id number] [address] [place] [address], [place] [address] Aug, [facility] [address] [id number] [address] [place] [address], [place] [address] Aug, [facility] [address] [id number] [address] [place] [address], [place] [address] Aug, [facility] [address] [id number] [address] [place] [address], [place] [address] Aug, [facility] [address] [id number] [address] [place] [address], [place] [address] Aug, [facility] [address] [id number] [address] [place] [address], [place] [address] Jul, [facility] [address] [id number] [address] [place] [address], [place] [address] Jul, [facility] [address] [id number] [address] [place] [address], [place] [address] Jul, [facility] [address] [id number] [address] [place] [address], [place] [address] Jul, [facility] [address] [id number] [address] [place] [address], [place] [address] Jun, [facility] [address] [id number] [address] [place] [address], [place] [address] Jun, [facility] [address] [id number] [address] [place] [address], [place] [address] Jun, [facility] [address] [id number] [address] [place] [address], [place] [address] Jun, [facility] [address] [id number] [address] [place] [address], [place] [address] Jun, [facility] [address] [id number] [address] [place] [address], [place] [address] Jun, [facility] [address] [id number] [address] [place] [address], [place] [address] Jun, [facility] [address] [id number] [address] [place] [address], [place] [address] Jun, [facility] [address] [id number] [address] [place] [address], [place] [address] 24 May, 2013 [facility] [address] [id number] [address] [place] [address], [place] [address] 24 May, 2014 [facility] [address] [id number] [address] [place] [address], [place] [address] May, [facility] [address] [id number] [address] [place] [address], [place] [address] 19 May, 2014 [facility] [address] [id number] [address] [place] [address], [place] [address] 15 May, 2014 [facility] [address] [id number] [address] [place] [address], [place] [address] 15 May, 2014 [facility] [address] [id number] [address] [place] [address], [place] [address] 15 May, 2014 [facility] [address] [id number] [address] [place] [address], [place] [address] 15 May, 2014 [facility] [address] [id number] [address] [place] [address], [place] [address] Apr, [facility] [address] [id number] [address] [place] [address], [place] [address] Apr, [facility] [address] [id number] [address] [place] [address], [place] [address] Apr, [facility] [address] [id number] [address] [place] [address], [place] [address] Apr, [facility] [address] [id number] [address] [place] [address], [place] [address] Apr, [facility] [address] [id number] [address] [place] [address], [place] [address] Apr, [facility] [address] [id number] [address] [place] [address], [place] [address] Apr, [facility] [address] [id number] [address] [place] [address], [place] [address] Apr, [facility] [address] [id number] [facility] [place] [address] Apr, [facility] [address] [id number] [address] [place] [address], [place] [address] Apr, [facility] [address] [id number] [address] [place] [address], [place] [address] Apr, [facility] [address] [id number] [address] [place] [address], [place] [address] Apr, [facility] [address] [id number] [address] [place] [address], [place] [address] Mar, [facility] [address] [id number] [address] [place] [address], [place] [address] Mar, [facility] [address] [id number] [address] [place] [address], [place] [address] Mar, [facility] [address] [id number] [address] [place] [address], [place] [address] Mar, [facility] [address] [id number] [address] [place] [address], [place] [address] Mar, [facility] [address] [id number] [address] [place] [address], [place] [address] Mar, [facility] [address] [id number] [address] [place] [address], [place] [address] Feb, [facility] [address] [id number] [address] [place] [address], [place] [address] Feb, [facility] [address] [id number] [address] [place] [address], [place] [address] Feb, [facility] [address] [id number] [address] [place] [address], [place] [address] Feb, [facility] [address] [id number] [address] [place] [address], [place] [address] Feb, [facility] [address] [id number] [address] [place] [address], [place] [address] Feb, [facility] [address] [id number] [address] [place] [address], [place] [address] Feb, [facility] [address] [id number] [address] [place] [address], [place] [address] Feb, [facility] [address] [id number] [address] [place] [address], [place] [address] Feb, [facility] [address] [id number] [address] [place] [address], [place] [address] Feb, [facility] [address] [id number] [address] [place] [address], [place] [address] Feb, [facility] [address] [id number] [address] [place] [address], [place] [address] Feb, [facility] [address] [id number] [address] [place] [address], [place] [address] Feb, [facility] [address] [id number] [address] [place] [address], [place] [address] Feb, [facility] [address] [id number] [address] [place] [address], [place] [address] January, [facility] [address] [id number] [address] [place] [address], [place] [address] January, [facility] [address] [id number] [address] [place] [address], [place] [address] January, [facility] [address] [id number] [address] [place] [address], [place] [address] January, [facility] [address] [id number] [address] [place] [address], [place] [address] January, [facility] [address] [id number] [address] [place] [address], [place] [address] January, [facility] [address] [id number] [address] [place] [address], [place] [address] Dec, [facility] [address] [id number] [address] [place] [address], [place] [address] Dec, [facility] [address] [id number] [facility] [place] [address] Dec, [facility] [address] [id number] [address] [place] [address], [place] [address] Dec, [facility] [address] [id number] [address] [place] [address], [place] [address] Dec, [facility] [address] [id number] [address] [place] [address], [place] [address] Dec, [facility] [address] [id number] [address] [place] [address], [place] [address] Dec, [facility] [address] [id number] [address] [place] [address], [place] [address] Dec, [facility] [address] [id number] [address] [place] [address], [place] [address] Nov, [facility] [address] [id number] [address] [place] [address], [place] [address] Nov, [facility] [address] [id number] [address] [place] [address], [place] [address] Nov, [facility] [address] [id number] [address] [place] [address], [place] [address] Nov, [facility] [address] [id number] [address] [place] [address], [place] [address] Nov, [facility] [address] [id number] [address] [place] [address], [place] [address] Nov, [facility] [address] [id number] [address] [place] [address], [place] [address] Nov, [facility] [address] [id number] [address] [place] [address], [place] [address] Nov, [facility] [address] [id number] [address] [place] [address], [place] [address] Oct, [facility] [address] [id number] [address] [place] [address], [place] [address] Oct, [facility] [address] [id number] [address] [place] [address], [place] [address] Oct, [facility] [address] [id number] [address] [place] [address], [place] [address] Oct, [facility] [address] [id number] [address] [place] [address], [place] [address] Oct, [facility] [address] [id number] [address] [place] [address], [place] [address] Oct, [facility] [address] [id number] [address] [place] [address], [place] [address] Oct, [facility] [address] [id number] [address] [place] [address], [place] [address] Oct, [facility] [address] [id number] [address] [place] [address], [place] [address] Oct, [facility] [address] [id number] [address] [place] [address], [place] [address] Oct, [facility] [address] [id number] [address] [place] [address], [place] [address] Sep, [facility] [address] [id number] [address] [place] [address], [place] [address] Sep, [facility] [address] [id number] [address] [place] [address], [place] [address] Sep, [facility] [address] [id number] [address] [place] [address], [place] [address] Sep, [facility] [address] [id number] [address] [place] [address], [place] [address] Sep, [facility] [address] [id number] [address] [place] [address], [place] [address] Sep, [facility] [address] [id number] [address] [place] [address], [place] [address] Aug, [facility] [address] [id number] [address] [place] [address], [place] [address] Aug, [facility] [address] [id number] [address] [place] [address], [place] [address] Aug, [facility] [address] [id number] [address] [place] [address], [place] [address] Aug, [facility] [address] [id number] [address] [place] [address], [place] [address] Aug, [facility] [address] [id number] [address] [place] [address], [place] [address] Aug, [facility] [address] [id number] [address] [place] [address], [place] [address] Aug, [facility] [address] [id number] [address] [place] [address], [place] [address] Aug, [facility] [address] [id number] [address] [place] [address], [place] [address] Jul, [facility] [address] [id number] [address] [place] [address], [place] [address] Jul, [facility] [address] [id number] [address] [place] [address], [place] [address] Jul, [facility] [address] [id number] [address] [place] [address], [place] [address] Jul, [facility] [address] [id number] [address] [place] [address] Jul, [facility] [address] [id number] [address] [place] [address], [place] [address] Jul, [facility] [address] [id number] [address] [place] [address], [place] [address] Jun, [facility] [address] [id number] [address] [place] [address] Jun, [facility] [address] [id number] [address] [place] [address], [place] [address] Jun, [facility] [address] [id number] [address] [place] [address], [place] [address] 24 May, 2013 [facility] [address] [id number] [address] [place] [address], [place] [address] May, [facility] [address] [id number] [address] [place] [address], [place] [address] May, [facility] [address] [id number] [address] [place] [address], [place] [address] Apr, [facility] [address] [id number] [address] [place] [address], [place] [address] Apr, [facility] [address] [id number] [address] [place] [address], [place] [address] Apr, [facility] [address] [id number] [address] [place] [address], [place] [address] Apr, [facility] [address] [id number] [address] [place] [address], [place] [address] Mar, [facility] [address] [id number] [address] [place] [address], [place] [address] Mar, [facility] [address] [id number] [address] [place] [address], [place] [address] Mar, [facility] [address] [id number] [address] [place] [address], [place] [address] Mar, [facility] [address] [id number] [address] [place] [address], [place] [address] Feb, [facility] [address] [id number] [address] [place] [address], [place] [address] Feb, [facility] [address] [id number] [address] [place] [address], [place] [address] Feb, [facility] [address] [id number] [address] [place] [address], [place] [address] Feb, [facility] [address] [id number] [address] [place] [address], [place] [address] January, [facility] [address] [id number] [address] [place] [address], [place] [address] January, [facility] [address] [id number] [address] [place] [address], [place] [address] January, [facility] [address] [id number] [address] [place] [address], [place] [address] Nov, [facility] [address] [id number] [address] [place] [address], [place] [address] Nov, [facility] [address] [id number] [address] [place] [address], [place] [address] Oct, [facility] [address] [id number] [address] [place] [address], [place] [address] Oct, [facility] [address] [id number] [address] [place] [address], [place] [address] Oct, [facility] [address] [id number] [address] [place] [address], [place] [address] Oct, [facility] [address] [id number] [address] [place] [address], [place] [address] Sep, [facility] [address] [id number] [address] [place] [address], [place] [address] Sep, [facility] [address] [id number] [address] [place] [address], [place] [address] Sep, [facility] [address] [id number] [address] [place] [address], [place] [address] Aug, [facility] [address] [id number] [address] [place] [address], [place] [address] Aug, [facility] [address] [id number] [address] [place] [address], [place] [address] Aug, [facility] [address] [id number] [address] [place] [address], [place] [address] Aug, [facility] [address] [id number] [address] [place] [address], [place] [address] Aug, [facility] [address] [id number] [address] [place] [address], [place] [address] Aug, [facility] [address] [id number] [address] [place] [address], [place] [address] Jul, [facility] [address] [id number] [address] [place] [address], [place] [address] Jul, [facility] [address] [id number] [address] [place] [address], [place] [address] Jun, [facility] [address] [id number] [address] [place] [address], [place] [address] Jun, [facility] [address] [id number] [address] [place] [address], [place] [address] Jun, [facility] [address] [id number] [address] [place] [address], [place] [address] Apr, [facility] [address] [id number] [address] [place] [address], [place] [address] Apr, [facility] [address] [id number] [address] [place] [address], [place] [address] Mar, [facility] [address] [id number] [address] [place] [address], [place] [address] Mar, [facility] [address] [id number] [address] [place] [address], [place] [address] Mar, [facility] [address] [id number] [address] [place] [address], [place] [address] Mar, [facility] [address] [id number] [address] [place] [address], [place] [address] Feb, [facility] [address] [id number] [address] [place] [address], [place] [address] Feb, [facility] [address] [id number] [address] [place] [address], [place] [address] Feb, [facility] [address] [id number] [address] [place] [address], [place] [address] January, [facility] [address] [id number] [address] [place] [address], [place] [address] January, [facility] [address] [id number] [address] [place] [address], [place] [address] January, [facility] [address] [id number] [address] [place] [address], [place] [address] January, [facility] [address] [id number] [address] [place] [address], [place] [address] Dec, [facility] [address] [id number] [address] [place] [address], [place] [address] Dec, [facility] [address] [id number] [address] [place] [address], [place] [address] Nov, [facility] [address] [id number] [address] [place] [address], [place] [address] Nov, [facility] [address] [id number] [address] [place] [address], [place] [address] Oct, [facility] [address] [id number] [address] [place] [address], [place] [address] Oct, [facility] [address] [id number] [address] [place] [address], [place] [address] Sep, [facility] [address] [id number] [address] [place] [address], [place] [address] Sep, [facility] [address] [id number] [address] [place] [address], [place] [address] Sep, [facility] [address] [id number] [address] [place] [address], [place] [address] Sep, [facility] [address] [id number] [address] [place] [address], [place] [address] 16 Aug, 2011 [facility] [address] [id number] [address] [place] [address], [place] [address] 16 Aug, 2011 [facility] [address] [id number] [address] [place] [address], [place] [address] 09 Aug, 2011 [facility] [address] [id number] [address] [place] [address], [place] [address] 04 Jul, 2011 [facility] [address] [id number] [address] [place] [address], [place] [address] 22 Aug, 2010 [facility] [address] [id number] [address] [place] [address], [place] [address] Aug, [facility] [address] [id number] [address] [place] [address], [place] [address] Aug, [facility] [address] [id number] [address] [place] [address], [place] [address] Aug, [facility] [address] [id number] [address] [place] [address], [place] [address] Jul, [facility] [address] [id number] [address] [place] [address], [place] [address] Jul, [facility] [address] [id number] [address] [place] [address], [place] [address] Jul, [facility] [address] [id number] [address] [place] [address], [place] [address] Jun, [facility] [address] [id number] [address] [place] [address] Jun, [facility] [address] [id number] [address] [place] [address] Jun, [facility] [address] [id number] [address] [place] [address] Apr, [facility] [address] [id number] [address] [place] [address] Mar, IMMUNIZATIONS No Known Immunizations SOCIAL HISTORY Never Assessed REASON FOR VISIT PLAN OF CARE VITAL SIGNS Height 66 in 2012-03-18 Weight 244.5 lbs 2012-03-18 Temperature 97.1 degrees Fahrenheit 2012-03-18 Heart Rate 72 bpm 2012-03-18 Respiratory Rate 18 2012-03-18 Blood pressure systolic 172 mmHg 2012-03-18 Blood pressure diastolic 92 mmHg 2012-03-18 MEDICATIONS No Known Medications RESULTS No Results PROCEDURES Procedure Date Ordered Result Body Site THER/PROPH/DIAG INJ, SC/IM March 18, 2012 INJ METHYLPRDNISOLONE ACTAT 40 MG March 18, 2012 INSTRUCTIONS MEDICATIONS ADMINISTERED No Known Medications MEDICAL [...]
--- OUTSIDE RECORDS SUMMARY | 2020-03-18 14:59 | XMS REPORT ---
Author Author George BENNETT Organization [facility] Address [address] [place] [address] Care Team Providers Care Seo Strategist Name Role Phone NI BENNETT Unavailable PROBLEMS Type Condition ICD9-CM Code INH96-OR Code Onset Dates Condition S tatus SNOMED Code Problem Hypertension, benign I10 Active 42175885 Problem Other chronic pain G89.29 Active 8 9969800 Problem Lumbago with sciatica, unspecified side M54.40 Active 634641217 Problem Controlled type 2 diabetes m ellitus without complication, without long- term current use of insulin E11.9 Active 295820014 Problem Lumbago with sciatica, right side M54.41 Active 108359949 Problem Adjustment disorder with disturbance of emotion F4 3.29 Active 56321794 Problem MELE (obstructive sleep apnea) G47.33 Active 98468873 Problem Non morbid obesity E66.9 Active 4 40277897 Problem Hammer toe of left foot M20.42 Active 520313899 Problem Mood disorder F39 Active 415832 05 Problem Deformity of left foot M21.962 Active 484162100 Problem Lumbago with sciatica, left side M54.42 Active 922776980 Problem Erectile dysfunction due to diseases classified elsewhere N52.1 Active 077900841 Problem Obstructive sleep apnea syndrome G47.33 Active 57366850 Problem Type 2 diabetes mellitus wit h diabetic neuropathy, without long-term current use of insulin E11.40 Active 54322 006 Problem Essential hypertension I10 Active 05137051 ALLERGIES No Information ENCOUNTERS Encounter Location Date Diagnosis [facility] [address] [facility] [id number] [address] [place] [id number] 13 Dec, 2019 Acute diffuse otitis externa of left ear H60.312 [facility] [address] [facility] [id number] [address] [place] [id number] 18 Nov, 2019 Viral URI J06.9 and Flu-like symptoms R68.89 [place] [address] [place] [id number] [address] [place] [phone] 09 Nov, 2019 Type 2 diabetes mellitus wit h diabetic neuropathy, without long- term current use of insulin E11.40 ; Family history of prostate cancer Z80.42 and Prostate cancer screening Z12.5 [place] [address] [place] [id number] [address] [place] [address] Nov, [place] [address] [place] [id number] [address] [place] [phone] Sep, [facility] [address] [place] [id number] [address] [place] [address] Aug, [place] [address] [place] [id number] [address] [place] [address] Jul, Lumbago with sciatica, unspe cified side M54.40 [place] [address] [place] [id number] [address] [place] [address] Jun, Lumbago with sciatica, unspe cified side M54.40 [place] [address] [place] [id number] [address] [place] [phone] Jun, URI, acute J06.9 [place] [address] [place] [id number] [address] [place] [phone] May, Lumbago with sciatica, unspe cified side M54.40 [place] [address] [place] [id number] [address] [place] [phone] May, [place] [address] [place] [id number] [address] [place] [phone] May, Type 2 diabetes mellitus wit h diabetic neuropathy, without long- term current use of insulin E11.40 and Hammer toe of left foot M20.42 [place] [address] [place] [id number] [address] [place] [phone] May, [place] [address] [place] [id number] [address] [place] [phone] May, [facility] [address] [facility] [id number] [address] [place] [address] May, [facility] [address] [facility] [id number] [address] [place] [address] Apr, Lumbago with sciatica, unspe cified side M54.40 [facility] [address] [place] [id number] [address] [place] [address] Apr, [facility] [address] [facility] [id number] [address] [place] [address] Apr, [id number] [place] [address] Apr, Hammer toe of left foot M20. 42 ; Chest pain R07.9 ; Preoperative examination Z01.818 and Morbid obesity E66.01 [place] [address] [place] [id number] [address] [place] [address] Apr, Morbid obesity E66.01 ; Bron chitis J40 and High risk medications (not anticoagulants) long-term use Z79.899 [place] [address] [place] [id number] [address] [place] [address] Apr, Lumbago with sciatica, unspe cified side M54.40 [facility] [id number] [place] [address] Apr, [facility] [address] [place] [id number] [address] [place] [address] Mar, Lumbar neuritis M54.16 and M orbid obesity E66.01 [facility] [address] [place] [id number] [address] [place] [phone] Mar, [facility] [address] [place] [id number] [address] [place] [address] Mar, [facility] [address] [place] [id number] [address] [place] [address] Mar, Lumbago with sciatica, unspe cified side M54.40 [facility] [address] [id number] [address] [place] [address] Mar, Morbid obesity E66.01 ; Gabe lara R05 ; 2+ pitting edema R60.9 and Controlled type 2 diabetes mellitus without complication, without long-term current use of insulin E11.9 [facility] [address] [id number] [address] [place] [phone] Feb, [facility] [address] [id number] [address] [place] [phone] Feb, Lumbago with sciatica, unspe cified side M54.40 [facility] [address] [id number] [address] [place] [phone] Feb, [facility] [address] [id number] [address] [place] [address] Feb, Controlled type 2 diabetes m ellitus without complication, without long-term current use of insulin E11.9 and Morbid obesity E66.01 [facility] [address] [id number] [address] [place] [address] January, Deformity of left foot M21.9 62 [facility] [address] [id number] [address] [place] [address] January, [facility] [address] [id number] [address] [place] [address] January, Lumbago with sciatica, unspe cified side M54.40 [facility] [address] [id number] [address] [place] [address] January, [facility] [address] [id number] [address] [place] [address] January, Lumbago with sciatica, unspe cified side M54.40 [facility] [address] [id number] [address] [place] [phone] January, [facility] [id number] [place] [address] January, Acute right-sided thoracic b ack pain M54.6 [facility] [address] [place] [id number] [address] [place] [phone] January, Acute right-sided thoracic b ack pain M54.6 [facility] [address] [place] [id number] [address] [place] [address] January, Chest pain, unspecified type R07.9 ; Morbid obesity E66.01 and Scabies B86 [place] [address] [place] [id number] [address] [place] [address] Dec, Lumbago with sciatica, unspe cified side M54.40 [place] [address] [place] [id number] [address] [place] [address] Dec, Toenail fungus B35.1 [facility] [address] [place] [address] Dec, Toenail fungus B35.1 [place] [address] [place] [id number] [address] [place] [address] Dec, Acute right-sided thoracic b ack pain M54.6 [facility] [address] [place] [id number] [address] [place] [address] Dec, Lumbago with sciatica, unspe cified side M54.40 [facility] [address] [place] [id number] [address] [place] [address] Nov, Hammer toe of left foot M20. 42 ; Deformity of left foot M21.962 and Type 2 diabetes mellitus with diabetic neuropathy, without long-term current use of insulin E11.40 [facility] [address] [facility] [id number] [address] [place] [address] Nov, Acute right-sided thoracic b ack pain M54.6 ; Morbid obesity E66.01 and Rt flank pain R10.9 [facility] [address] [facility] [id number] [address] [place] [address] Nov, Lumbago with sciatica, unspe cified side M54.40 [facility] [address] [facility] [id number] [address] [place] [address] Oct, Lumbago with sciatica, unspe cified side M54.40 [place] [address] [place] [id number] [address] [place] [address] Sep, Lumbago with sciatica, unspe cified side M54.40 [place] [address] [place] [id number] [address] [place] [address] Sep, [place] [address] [place] [id number] [address] [place] [address] Sep, BMI 40.0-44.9, adult Z68.41 ; Lumbago with sciatica, left side M54.42 ; Lumbago with sciatica, right side M54.41 and Other chronic pain G89.29 [place] [address] [place] [id number] [address] [place] [address] Aug, Lumbago with sciatica, unspe cified side M54.40 [place] [address] [place] [id number] [address] [place] [address] Aug, Type 2 diabetes mellitus wit h diabetic neuropathy, without long- term current use of insulin E11.40 ; Hammer toe of left foot M20.42 ; Hypertension, benign I10 and Frequent headaches R51 [facility] [address] [place] [id number] [address] [place] [address] Jul, Lumbago with sciatica, unspe cified side M54.40 [place] [address] [place] [id number] [address] [place] [address] Jul, [facility] [address] [place] [id number] [address] [place] [address] Jul, Essential hypertension I10 a nd Controlled type 2 diabetes mellitus without complication, without long-term current use of insulin E11.9 [facility] [address] [facility] [id number] [address] [place] [address] Jul, Essential hypertension I10 ; Controlled type 2 diabetes mellitus without complication, without long-term current use of insulin E11.9 and BMI 40.0-44.9, adult Z68.41 [facility] [address] [facility] [id number] [address] [place] [phone] Jul, Dysfunction of left eustachi an tube H69.82 [facility] [address] [facility] [id number] [address] [place] [address] Jul, Lumbago with sciatica, unspe cified side M54.40 [facility] [address] [id number] [address] [place] [address] [id number] Jun, Dental examination Z01.20 [facility] [address] [facility] [id number] [address] [place] [address] Jun, Lumbago with sciatica, unspe cified side M54.40 and Encounter for immunization Z23 [facility] [address] [facility] [id number] [address] [place] [address] Jun, Dysfunction of left eustachi an tube H69.[address] [place] [address] [id number] [id number] Jun, Dental examination Z01.20 [facility] [address] [id number] [address] [place] [address] Jun, Other chronic pain G89.29 [facility] [address] [id number] [address] [place] [address] [id number] Jun, Dental examination Z01.20 [facility] [address] [facility] [id number] [address] [place] [address] Jun, [facility] [address] [facility] [id number] [address] [place] [address] Jun, Bronchitis J40 ; Dysfunction of left eustachian tube H69.82 and BMI 45.0-49.9, adult Z68.42 [facility] [address] [place] [id number] [address] [place] [address] Jun, Lumbago with sciatica, unspe cified side M54.40 [facility] [address] [place] [id number] [address] [place] [address] May, Type 2 diabetes mellitus wit h diabetic neuropathy, without long- term current use of insulin E11.40 and Hypertension, benign I10 [facility] [address] [place] [id number] [address] [place] [address] May, Lumbago with sciatica, unspe cified side M54.40 [facility] [address] [place] [id number] [address] [place] [address] Apr, [facility] [address] [address] Apr, Controlled type 2 diabetes m ellitus without complication, without long-term current use of insulin E11.9 ; Insect bite (nonvenomous), right ankle, initial encounter S90.561A ; Local infection of the skin and subcutaneous tissue, unspecified L08.9 ; Acute swimmer''s ear of left side H60.332 and BMI 45.0-49.9, adult Z68.42 [place] [address] [place] [id number] [address] [place] [address] Apr, Lumbago with sciatica, unspe cified side M54.40 [facility] [address] [place] [id number] [address] [place] [address] Mar, [facility] [address] [place] [id number] [address] [place] [address] Mar, Lumbago with sciatica, unspe cified side M54.40 [facility] [address] [place] [id number] [address] [place] [address] Feb, Lumbago with sciatica, unspe cified side M54.40 [place] [address] [place] [id number] [address] [place] [address] Feb, BMI 45.0-49.9, adult Z68.42 and Obstructive sleep apnea syndrome G47.33 [place] [address] [address] January, Lumbar neuritis M54.16 [place] [address] [address] January, Lumbago with sciatica, unspe cified side M54.40 [place] [address] [address] Dec, Controlled type 2 diabetes m taraitus without complication, without long-term current use of insulin E11.9 ; Erectile dysfunction due to diseases classified elsewhere N52.1 and Mood disorder F39 [place] [address] [address] Dec, Lumbago with sciatica, unspe cified side M54.40 [place] [address] [address] Dec, Obstructive sleep apnea synd luis G47.33 [place] [address] [address] Nov, Lumbago with sciatica, unspe cified side M54.40 ; Hypertension, benign I10 and Mood disorder F39 [place] [address] [place] [id number] [address] [place] [address] Nov, Other chronic pain G89.29 [place] [address] [address] Nov, Lumbago with sciatica, unspe cified side M54.40 [facility] [address] [id number] [address] [place] [address] [id number] 13 Nov, 2017 Dental examination Z01.20 [place] [address] [place] [id number] [address] [place] [address] Oct, [facility] [address] [id number] [address] [place] [address] Oct, Lumbago with sciatica, unspe cified side M54.40 [facility] [address] [facility] [id number] [address] [place] [address] Oct, Lumbago with sciatica, unspe cified side M54.40 [facility] [address] [id number] [address] [place] [address] Oct, [facility] [address] [facility] [id number] [address] [place] [address] Oct, [facility] [address] [id number] [address] [place] [address] [id number] Oct, Dental examination Z01.20 [facility] [address] [facility] [id number] [address] [place] [address] Oct, [facility] [address] [facility] [id number] [address] [place] [address] Oct, Pain in right knee M25.561 [facility] [address] [facility] [id number] [address] [place] [address] Sep, [facility] [address] [facility] [id number] [address] [place] [address] Sep, Other chronic pain G89.29 [facility] [address] [id number] [address] [place] [address] Sep, Lumbago with sciatica, unspe cified side M54.40 [facility] [address] [facility] [id number] [address] [place] [address] Sep, [facility] [address] [facility] [id number] [address] [place] [address] Sep, Viral URI J06.9 and BMI 45.0 -49.9, adult Z68.42 [facility] [address] [facility] [id number] [address] [place] [address] Aug, Foreign body hand S60.559A a nd BMI 45.0-49.9, adult Z68.42 [facility] [address] [facility] [id number] [address] [place] [address] Aug, [facility] [address] [place] [id number] [address] [place] [address] Aug, Lumbago with sciatica, unspe cified side M54.40 [place] [address] [place] [id number] [address] [place] [address] Aug, Vertigo R42 ; Dysfunction of both eustachian tubes H69.83 ; Low back pain M54.5 and Other chronic pain G89.29 [facility] [address] [facility] [id number] [address] [place] [id number] 02 Aug, 2017 Dizziness R42 and Acute bila teral otitis media H66.93 [facility] [address] [facility] [id number] [address] [place] [address] Aug, Lumbago with sciatica, unspe cified side M54.40 [facility] [address] [facility] [id number] [address] [place] [address] [id number] Jul, 2017 Dental examination Z01.20 [facility] [address] [place] [id number] [address] [place] [address] Jul, [place] [address] [facility] [id number] [address] [place] [address] Jul, [place] [address] [facility] [id number] [address] [place] [id number] 16 Jul, 2017 Dysfunction of both eustachi an tubes H69.83 [facility] [address] [facility] [id number] [address] [place] [address] 07 Jul, 2017 Controlled type 2 diabetes m ellitus without complication, without long-term current use of insulin E11.9 [facility] [address] [id number] [address] [place] [address] Jul, Controlled type 2 diabetes m ellitus without complication, without long-term current use of insulin E11.9 [facility] [address] [id number] [address] [place] [address] Jul, Dizziness R42 and BMI 40.0-4 4.9, adult Z68.41 [facility] [address] [facility] [id number] [address] [place] [address] Jul, Controlled type 2 diabetes m ellitus without complication, without long-term current use of insulin E11.9 [facility] [address] [facility] [id number] [address] [place] [address] Jul, Lumbago with sciatica, unspe cified side M54.40 [facility] [id number] [place] [address] [id number] Jul, Dental examination Z01.20 [facility] [address] [id number] [address] [place] [address] Jun, [facility] [address] [place] [id number] [place] [address] [id number] Jun, Dental examination Z01.20 [facility] [address] [facility] [id number] [address] [place] [phone] Jun, Controlled type 2 diabetes m ellitus without complication, without long-term current use of insulin E11.9 [facility] [address] [id number] [address] [place] [address] Jun, Lumbago with sciatica, unspe cified side M54.40 [facility] [address] [id number] [address] [place] [address] [id number] May, Dental examination Z01.20 [facility] [address] [id number] [address] [place] [address] May, Controlled type 2 diabetes m ellitus without complication, without long-term current use of insulin E11.9 [facility] [address] [id number] [address] [place] [address] [id number] May, Dental examination Z01.20 [facility] [address] [id number] [address] [place] [phone] 18 May, 2017 Bronchitis J40 ; Dry mouth R 68.2 ; Non morbid obesity E66.9 and Controlled type 2 diabetes mellitus without complication, without long-term current use of insulin E11.9 [facility] [address] [id number] [address] [place] [phone] 16 May, 2017 Encounter for immunization Z 23 [facility] [address] [facility] [id number] [address] [place] [phone] 07 May, 2017 Lumbago with sciatica, unspe cified side M54.40 [facility] [address] [id number] [address] [place] [phone] 05 May, 2017 [facility] [id number] [place] [id number] Apr, Dental examination Z01.20 [facility] [address] [id number] [address] [place] [id number] Apr, Lumbago with sciatica, unspe cified side M54.40 [facility] [address] [id number] [address] [place] [phone] Mar, Lumbago with sciatica, left side M54.42 [facility] [address] [id number] [address] [place] [id number] Mar, [facility] [address] [id number] [address] [place] [phone] Mar, Lumbar neuritis M54.16 [facility] [address] [id number] [address] [place] [phone] Mar, [facility] [address] [id number] [address] [place] [id number] Mar, Dental examination Z01.20 [place] [address] [facility] [id number] [address] [place] [phone] Mar, MELE (obstructive sleep apnea ) G47.33 ; Neuropathy involving both lower extremities G57.93 and Frequent headaches R51 [place] [address] [facility] [id number] [address] [place] [id number] Mar, Lumbago with sciatica, unspe cified side M54.40 [place] [address] [place] [id number] [place] [phone] Feb, Lumbago with sciatica, unspe cified side M54.40 and Controlled type 2 diabetes mellitus without complication, without long-term current use of insulin E11.9 [place] [address] [place] [id number] [place] [phone] January, Hypertension, benign I10 and Bilateral low back pain with sciatica, sciatica laterality unspecified M54.40 [place] [address] [id number] January, Hypertension, benign I10 ; L umbago with sciatica, unspecified side M54.40 ; Other chronic pain G89.29 and Controlled type 2 diabetes mellitus without complication, without long-term current use of insulin E11.9 [place] [address] [place] [id number] [address] [place] [address] [address] January, Lumbar neuritis M54.16 [place] [address] [place] [id number] [address] [place] [address] January, [place] [address] [place] [id number] [place] [address] Dec, Lumbago with sciatica, right side M54.41 and Lumbar neuritis M54.16 [place] [address] [place] [id number] [address] [place] [address] Dec, Lumbar neuritis M54.16 [place] [address] [place] [id number] [address] [place] [address] Dec, Lumbar neuritis M54.16 [place] [id number] [facility] [id number] [address] [place] [address] Nov, Lumbar neuritis M54.16 ; Lum bago with sciatica, right side M54.41 ; Controlled type 2 diabetes mellitus without complication, without long-term current use of insulin E11.9 and Rash and nonspecific skin eruption R21 [place] [address] [facility] [id number] [address] [place] [address] Nov, Lumbar neuritis M54.16 and P derickpeter miroslava L23.7 [place] [address] [id number] [address] [place] [address] Oct, Lumbar neuritis M54.16 ; Cou ghing R05 and Mood disorder F39 [place] [id number] [place] [address] Sep, Lumbago with sciatica, right side M54.41 [place] [address] [place] [id number] [address] [place] [address] Sep, Adjustment disorder with dis turbance of emotion F43.29 and Pain management R52 [place] [address] [place] [id number] [address] [place] [address] Sep, [place] [address] [place] [id number] [address] [place] [address] Sep, [place] [address] [facility] [id number] [address] [place] [address] Sep, Controlled type 2 diabetes evens reyna without complication, without long-term current use of insulin E11.9 and Lumbago with sciatica, unspecified side M54.40 [place] [address] [facility] [id number] [address] [place] [address] Aug, Controlled type 2 diabetes evens reyna without complication, without long-term current use of insulin E11.9 ; Pain in right knee M25.561 ; Pain in left knee M25.562 ; Other chronic pain G89.29 ; Lumbago with sciatica, right side M54.41 ; Neck pain M54.2 and Encounter for immunization Z23 [facility] [address] [id number] [address] [place] [address] Jul, [facility] [address] [id number] [address] [place] [address] Jul, Controlled type 2 diabetes m ellitus without complication, without long-term current use of insulin E11.9 [facility] [address] [id number] [address] [place] [address] 17 Jul, 2016 [facility] [address] [id number] [address] [place] [address] Jul, [facility] [address] [id number] [address] [place] [address] Jul, Lumbago with sciatica, left side M54.42 ; Lumbago with sciatica, right side M54.41 and Other chronic pain G89.29 [facility] [address] [id number] [address] [place] [address] Jul, [facility] [address] [id number] [address] [place] [address] Jul, [facility] [address] [id number] [address] [place] [address] Jun, [facility] [address] [id number] [address] [place] [address] Jun, Lumbago with sciatica, right side M54.41 and Other chronic pain G89.29 [facility] [address] [id number] [address] [place] [address] 13 Jun, 2016 Cervicalgia M54.2 ; Lumbago with sciatica, unspecified side M54.40 and Other chronic pain G89.29 [facility] [address] [id number] [address] [place] [address] 15 May, 2016 Pain in right knee M25.561 ; Pain in left knee M25.562 and Other chronic pain G89.29 [facility] [address] [id number] [address] [place] [address] May, [facility] [address] [id number] [address] [place] [address] Apr, Other chronic pain G89.29 an d Pain in right knee M25.561 [facility] [address] [id number] [address] [place] [address] Apr, Pain in right knee M25.561 [facility] [address] [id number] [address] [place] [address] Mar, [facility] [address] [id number] [address] [place] [address] Mar, Mood disorder F39 and Contro lled type 2 diabetes mellitus without complication, without long-term current use of insulin E11.9 [facility] [address] [id number] [address] [place] [address] Mar, Pain in right knee M25.561 ; Pain in left knee M25.562 ; Other chronic pain G89.29 ; Obstructive sleep apnea syndrome G47.33 ; Mood disorder F39 and Controlled type 2 diabetes mellitus without complication, without long- term current use of insulin E11.9 [facility] [address] [id number] [address] [place] [address] Mar, [facility] [address] [id number] [address] [place] [id number] Feb, Dental examination Z01.20 [facility] [address] [id number] [address] [place] [address] Feb, [facility] [address] [id number] [address] [place] [address] Feb, Osteoarthritis of right knee , unspecified osteoarthritis type M17.9 [facility] [address] [id number] [address] [place] [address] January, [facility] [address] [id number] [address] [place] [address] [id number] January, Dental examination Z01.20 [facility] [address] [id number] [address] [place] [address] January, [facility] [address] [id number] [address] [place] [address] [id number] January, Dental examination Z01.20 an d Caries K02.9 [facility] [address] [id number] [address] [place] [address] Dec, Encounter for other preproce dural examination Z01.818 [facility] [address] [id number] [address] [place] [address] Dec, [facility] [address] [id number] [address] [place] [address] Dec, Knee pain M25.569 [facility] [address] [id number] [address] [place] [address] Dec, Pain in right knee M25.561 [facility] [address] [id number] [address] [place] [address] Dec, [facility] [address] [id number] [address] [place] [address] Dec, [facility] [address] [id number] [address] [place] [address] Dec, Encounter for immunization Z 23 [facility] [address] [id number] [address] [place] [address] Dec, [facility] [address] [id number] [address] [place] [id number] Dec, [facility] [address] [id number] [address] [place] [address] Nov, [facility] [address] [id number] [address] [place] [address] Nov, Hypertension, benign I10 ; C ervicalgia M54.2 ; Pain in right knee M25.561 and Pain in left knee M25.562 [place] [id number] [facility] [id number] [address] [place] [address] Oct, [facility] [address] [facility] [id number] [address] [place] [address] Oct, [place] [address] [facility] [id number] [address] [place] [address] Oct, Osteoarthritis of both knees M17.0 [place] [address] [facility] [id number] [address] [place] [address] Oct, [place] [address] [facility] [id number] [address] [place] [address] Oct, Low back pain M54.5 [place] [address] [facility] [id number] [address] [place] [address] Oct, Low back pain M54.5 ; Sciati ca, unspecified side M54.30 ; Pain in right knee M25.561 ; Pain in left knee M25.562 ; Pain in right shoulder M25.511 and Pain in left shoulder M25.512 [place] [address] [facility] [id number] [address] [place] [address] Oct, [place] [address] [place] [id number] [address] [place] [address] Sep, Pain in right hip M25.551 [place] [address] [place] [id number] [address] [place] [address] Sep, Acute upper respiratory infe ction, unspecified J06.9 [place] [address] [place] [id number] [address] [place] [address] Aug, Acute upper respiratory infe ction, unspecified J06.9 and Other viral agents as the cause of diseases classified elsewhere B97.89 [place] [address] [place] [id number] [address] [place] [address] Jul, Arthritis M19.90 [facility] [address] [id number] [address] [place] [address] Jun, Arthritis M19.90 ; Pain in r ight hip M25.551 ; Pain in left hip M25.552 ; Bilateral low back pain with sciatica, sciatica laterality unspecified M54.40 ; Neck pain M54.2 ; Upper back pain M54.9 and Knee pain, unspecified laterality M25.569 [facility] [address] [id number] [address] [place] [address] May, Osteoarthritis of both knees 715.96 [facility] [address] [id number] [address] [place] [address] May, Rash 782.1 [facility] [address] [facility] [id number] [address] [place] [address] Apr, Lumbar strain 847.2 [facility] [address] [id number] [address] [place] [address] Apr, Rash 782.1 [facility] [address] [id number] [address] [place] [address] Mar, Rash 782.1 [facility] [address] [facility] [id number] [address] [place] [address] Feb, Rash 782.1 ; Hemorrhoids 455 .6 and Constipation 564.00 [facility] [address] [id number] [address] [place] [address] Feb, Osteoarthritis of both knees 715.96 [facility] [address] [id number] [address] [place] [phone] January, [facility] [address] [facility] [id number] [address] [place] [address] Dec, [facility] [address] [facility] [id number] [address] [place] [phone] Dec, [facility] [address] [id number] [address] [place] [address], [place] [address] 13 Dec, 2014 [facility] [address] [id number] [address] [place] [address], [place] [address] 18 Nov, 2014 [facility] [address] [id number] [address] [place] [address], [place] [address] 18 Nov, 2014 [facility] [address] [id number] [address] [place] [address], [place] [address] 18 Nov, 2014 [facility] [address] [id number] [address] [place] [address], [place] [address] 18 Nov, 2014 [facility] [address] [id number] [address] [place] [address], [place] [address] Nov, [facility] [address] [id number] [address] [place] [address], [place] [address] Nov, [facility] [address] [id number] [address] [place] [address], [place] [address] Oct, [facility] [address] [id number] [address] [place] [address], [place] [address] Oct, [facility] [address] [id number] [address] [place] [address], [place] [address] Oct, [facility] [address] [id number] [address] [place] [address], [place] [address] Oct, [facility] [address] [id number] [address] [place] [address], [place] [address] Oct, [facility] [address] [id number] [address] [place] [address], [place] [address] Oct, [facility] [address] [id number] [address] [place] [address], [place] [address] Oct, [facility] [address] [id number] [address] [place] [address], [place] [address] Oct, [facility] [address] [id number] [address] [place] [address] [address] Oct, [facility] [address] [id number] [address] [place] [address], [place] [address] Oct, [facility] [address] [id number] [address] [place] [address], [place] [address] Oct, [facility] [address] [id number] [address] [place] [address], [place] [address] Sep, [facility] [address] [id number] [address] [place] [address], [place] [address] Sep, [facility] [address] [id number] [address] [place] [address], [place] [address] Sep, [facility] [address] [id number] [address] [place] [address], [place] [address] Sep, [facility] [address] [id number] [address] [place] [address], [place] [address] Sep, [facility] [address] [id number] [address] [place] [address], [place] [address] Sep, [facility] [address] [id number] [address] [place] [address], [place] [address] Aug, [facility] [address] [id number] [address] [place] [address], [place] [address] Aug, [facility] [address] [id number] [address] [place] [address], [place] [address] Aug, [facility] [address] [id number] [address] [place] [address], [place] [address] Aug, [facility] [address] [id number] [address] [place] [address], [place] [address] Aug, [facility] [address] [id number] [address] [place] [address], [place] [address] Aug, [facility] [address] [id number] [address] [place] [address], [place] [address] Aug, [facility] [address] [id number] [address] [place] [address], [place] [address] Aug, [facility] [address] [id number] [address] [place] [address], [place] [address] Aug, [facility] [address] [id number] [address] [place] [address], [place] [address] Aug, [facility] [address] [id number] [address] [place] [address], [place] [address] Jul, [facility] [address] [id number] [address] [place] [address], [place] [address] Jul, [facility] [address] [id number] [address] [place] [address], [place] [address] Jul, [facility] [address] [id number] [address] [place] [address], [place] [address] Jul, [facility] [address] [id number] [address] [place] [address], [place] [address] Jun, [facility] [address] [id number] [address] [place] [address], [place] [address] Jun, [facility] [address] [id number] [address] [place] [address], [place] [address] Jun, [facility] [address] [id number] [address] [place] [address], [place] [address] Jun, [facility] [address] [id number] [address] [place] [address], [place] [address] Jun, [facility] [address] [id number] [address] [place] [address], [place] [address] Jun, [facility] [address] [id number] [address] [place] [address], [place] [address] Jun, [facility] [address] [id number] [address] [place] [address], [place] [address] Jun, [facility] [address] [id number] [address] [place] [address], [place] [address] May, [facility] [address] [id number] [address] [place] [address], [place] [address] 24 May, 2013 [facility] [address] [id number] [address] [place] [address], [place] [address] May, [facility] [address] [id number] [address] [place] [address], [place] [address] 19 May, 2013 [facility] [address] [id number] [address] [place] [address], [place] [address] 15 May, 2014 [facility] [address] [id number] [address] [place] [address], [place] [address] 15 May, 2014 [facility] [address] [id number] [address] [place] [address], [place] [address] 15 May, 2014 [facility] [address] [id number] [address] [place] [address], [place] [address] May, [facility] [address] [id number] [address] [place] [address], [place] [address] Apr, [facility] [address] [id number] [address] [place] [address], [place] [address] Apr, [facility] [address] [id number] [address] [place] [address], [place] [address] Apr, [facility] [address] [id number] [address] [place] [address], [place] [address] Apr, [facility] [address] [id number] [address] [place] [address], [place] [address] Apr, [facility] [address] [id number] [address] [place] [address], [place] [address] Apr, [facility] [address] [id number] [address] [place] [address], [place] [address] Apr, [facility] [address] [id number] [address] [place] [address], [place] [address] Apr, [facility] [address] [id number] [address] [place] [address], [place] [address] Apr, [facility] [address] [id number] [address] [place] [address], [place] [address] Apr, [facility] [address] [id number] [address] [place] [address], [place] [address] Apr, [facility] [address] [id number] [address] [place] [address], [place] [address] Apr, [facility] [address] [id number] [address] [place] [address], [place] [address] Mar, [facility] [address] [id number] [address] [place] [address], [place] [address] Mar, [facility] [address] [id number] [address] [place] [address], [place] [address] Mar, [facility] [address] [id number] [address] [place] [address], [place] [address] Mar, [facility] [address] [id number] [address] [place] [address], [place] [address] Mar, [facility] [address] [id number] [address] [place] [address], [place] [address] Mar, [facility] [address] [id number] [address] [place] [address], [place] [address] Feb, [facility] [address] [id number] [address] [place] [address], [place] [address] Feb, [facility] [address] [id number] [address] [place] [address], [place] [address] Feb, [facility] [address] [id number] [address] [place] [address], [place] [address] Feb, [facility] [address] [id number] [address] [place] [address], [place] [address] Feb, [facility] [address] [id number] [address] [place] [address], [place] [address] Feb, [facility] [address] [id number] [facility] [place] [address] Feb, [facility] [address] [id number] [facility] [place] [address] Feb, [facility] [address] [id number] [facility] [place] [address] Feb, [facility] [address] [id number] [facility] [place] [address] Feb, [facility] [address] [id number] [facility] [place] [address] Feb, [facility] [address] [id number] [address] [place] [address], [place] [address] Feb, [facility] [address] [id number] [address] [place] [address], [place] [address] Feb, [facility] [address] [id number] [address] [place] [address], [place] [id number] Feb, [facility] [address] [id number] [address] [place] [address], [place] [address] January, [facility] [address] [id number] [address] [place] [address], [place] [id number] January, [facility] [address] [id number] [address] [place] [address], [place] [address] January, [facility] [address] [id number] [address] [place] [address], [place] [address] January, [facility] [address] [id number] [address] [place] [address], [place] [address] January, [facility] [address] [id number] [address] [place] [address], [place] [address] January, [facility] [address] [id number] [address] [place] [address], [place] [address] Dec, [facility] [address] [id number] [address] [place] [address], [place] [address] Dec, [facility] [address] [id number] [facility] [place] [id number] Dec, [facility] [address] [id number] [facility] [place] [address] Dec, [facility] [address] [id number] [facility] [place] [address] Dec, [facility] [address] [id number] [address] [place] [address], [place] [address] Dec, [facility] [address] [id number] [facility] [place] [address] Dec, [facility] [address] [id number] [address] [place] [address], [place] [address] Dec, [facility] [address] [id number] [address] [place] [address], [place] [address] Nov, [facility] [address] [id number] [address] [place] [address], [place] [address] Nov, [facility] [address] [id number] [address] [place] [address], [place] [address] Nov, [facility] [address] [id number] [address] [place] [address], [place] [address] Nov, [facility] [address] [id number] [address] [place] [address], [place] [address] Nov, [facility] [address] [id number] [address] [place] [address], [place] [address] Nov, [facility] [address] [id number] [address] [place] [address], [place] [address] Nov, [facility] [address] [id number] [address] [place] [address], [place] [address] Nov, [facility] [address] [id number] [address] [place] [address], [place] [address] Oct, [facility] [address] [id number] [address] [place] [address], [place] [address] Oct, [facility] [address] [id number] [address] [place] [address], [place] [address] Oct, [facility] [address] [id number] [address] [place] [address], [place] [address] Oct, [facility] [address] [id number] [address] [place] [address], [place] [address] Oct, [facility] [address] [id number] [address] [place] [address], [place] [address] Oct, [facility] [address] [id number] [address] [place] [address], [place] [id number] Oct, [facility] [address] [id number] [address] [place] [address], [place] [address] Oct, [facility] [address] [id number] [address] [place] [address], [place] [address] Oct, [facility] [address] [id number] [address] [place] [address], [place] [address] Oct, [facility] [address] [id number] [address] [place] [address], [place] [address] Sep, [facility] [address] [id number] [address] [place] [address], [place] [address] Sep, [facility] [address] [id number] [address] [place] [address], [place] [address] Sep, [facility] [address] [id number] [address] [place] [address], [place] [id number] Sep, [facility] [address] [id number] [address] [place] [address], [place] [address] Sep, [facility] [address] [id number] [address] [place] [address], [place] [address] Sep, [facility] [address] [id number] [address] [place] [address], [place] [address] Aug, [facility] [address] [id number] [address] [place] [address], [place] [address] Aug, [facility] [address] [id number] [address] [place] [address], [place] [address] Aug, [facility] [address] [id number] [address] [place] [address], [place] [address] Aug, [facility] [address] [id number] [address] [place] [id number] Aug, [facility] [address] [id number] [address] [place] [address], [place] [address] Aug, [facility] [address] [id number] [address] [place] [id number] Aug, [facility] [address] [id number] [address] [place] [address], [place] [address] Aug, [facility] [address] [id number] [address] [place] [id number] Jul, [facility] [address] [id number] [address] [place] [id number] Jul, [facility] [address] [id number] [address] [place] [id number] Jul, [facility] [address] [id number] [address] [place] [id number] Jul, [facility] [address] [id number] [address] [place] [id number] Jul, [facility] [address] [id number] [address] [place] [address], [place] [address] Jul, [facility] [address] [id number] [address] [place] [id number] Jun, [facility] [address] [id number] [address] [place] [id number] Jun, [facility] [address] [id number] [address] [place] [address], [place] [address] Jun, [facility] [address] [id number] [address] [place] [address], [place] [id number] 24 May, 2013 [facility] [address] [id number] [address] [place] [address], [place] [address] May, [facility] [address] [id number] [address] [place] [address], [place] [address] May, [facility] [address] [id number] [address] [place] [address], [place] [address] Apr, [facility] [address] [id number] [address] [place] [address], [place] [address] Apr, [facility] [address] [id number] [address] [place] [address], [place] [address] Apr, [facility] [address] [id number] [address] [place] [address], [place] [address] Apr, [facility] [address] [id number] [address] [place] [address], [place] [address] Mar, [facility] [address] [id number] [address] [place] [address], [place] [address] Mar, [facility] [address] [id number] [address] [place] [address], [place] [address] Mar, [facility] [address] [id number] [address] [place] [address], [place] [address] Mar, [facility] [address] [id number] [address] [place] [address], [place] [address] Feb, [facility] [address] [id number] [address] [place] [address], [place] [address] Feb, [facility] [address] [id number] [address] [place] [address], [place] [address] Feb, [facility] [address] [id number] [address] [place] [address], [place] [address] Feb, [facility] [address] [id number] [address] [place] [address], [place] [id number] January, [facility] [address] [id number] [address] [place] [address], [place] [address] January, [facility] [address] [id number] [address] [place] [address], [place] [address] January, [facility] [address] [id number] [address] [place] [address], [place] [address] Nov, [facility] [address] [id number] [address] [place] [address], [place] [address] Nov, [facility] [address] [id number] [address] [place] [address], [place] [address] Oct, [facility] [address] [id number] [address] [place] [address], [place] [address] Oct, [facility] [address] [id number] [address] [place] [address], [place] [address] Oct, [facility] [address] [id number] [address] [place] [address], [place] [address] Oct, [facility] [address] [id number] [address] [place] [address], [place] [address] Sep, [facility] [address] [id number] [address] [place] [address], [place] [address] Sep, [facility] [address] [id number] [address] [place] [address], [place] [address] Sep, [facility] [address] [id number] [address] [place] [address], [place] [address] Aug, [facility] [address] [id number] [address] [place] [address], [place] [address] Aug, [facility] [address] [id number] [address] [place] [address], [place] [address] Aug, [facility] [address] [id number] [address] [place] [address], [place] [address] Aug, [facility] [address] [id number] [address] [place] [address], [place] [address] Aug, [facility] [address] [id number] [address] [place] [address], [place] [address] Aug, [facility] [address] [id number] [address] [place] [address], [place] [address] Jul, [facility] [address] [id number] [address] [place] [address], [place] [address] Jul, [facility] [address] [id number] [address] [place] [address], [place] [address] Jun, [facility] [address] [id number] [address] [place] [address], [place] [address] Jun, [facility] [address] [id number] [address] [place] [address], [place] [address] Jun, [facility] [address] [id number] [address] [place] [address], [place] [address] Apr, [facility] [address] [id number] [address] [place] [address], [place] [address] Apr, [facility] [address] [id number] [address] [place] [address], [place] [address] Mar, [facility] [address] [id number] [address] [place] [address], [place] [address] Mar, [facility] [address] [id number] [address] [place] [address], [place] [address] Mar, [facility] [address] [id number] [address] [place] [address], [place] [address] Mar, [facility] [address] [id number] [address] [place] [address], [place] [address] Feb, [facility] [address] [id number] [address] [place] [address], [place] [address] Feb, [facility] [address] [id number] [address] [place] [address], [place] [address] Feb, [facility] [address] [id number] [address] [place] [address], [place] [address] January, [facility] [address] [id number] [address] [place] [address], [place] [address] January, [facility] [address] [id number] [address] [place] [address], [place] [address] January, [facility] [address] [id number] [address] [place] [address], [place] [address] January, [facility] [address] [id number] [address] [place] [address], [place] [address] Dec, [facility] [address] [id number] [address] [place] [address], [place] [address] Dec, [facility] [address] [id number] [address] [place] [address], [place] [address] Nov, [facility] [address] [id number] [address] [place] [address], [place] [address] Nov, [facility] [address] [id number] [address] [place] [address], [place] [address] Oct, [facility] [address] [id number] [address] [place] [address], [place] [address] Oct, [facility] [address] [id number] [address] [place] [address], [place] [address] Sep, [facility] [address] [id number] [address] [place] [address], [place] [address] Sep, [facility] [address] [id number] [address] [place] [address], [place] [address] Sep, [facility] [address] [id number] [address] [place] [address], [place] [address] Sep, [facility] [address] [id number] [address] [address] 16 Aug, 2011 [facility] [address] [id number] [address] [place] [id number] 16 Aug, 2011 [facility] [address] [id number] [address] [place] [id number] 09 Aug, 2011 [facility] [address] [id number] [address] [place] [id number] Jul, [facility] [address] [id number] [address] [place] [id number] Aug, [facility] [address] [id number] [address] [place] [id number] Aug, [facility] [address] [id number] [address] [place] [id number] Aug, [facility] [address] [id number] [address] [place] [id number] Aug, [facility] [address] [id number] [address] [place] [id number] Jul, [facility] [address] [id number] [address] [place] [id number] Jul, [facility] [address] [id number] [address] [place] [id number] Jul, [facility] [address] [id number] [address] [place] [id number] Jun, [facility] [address] [id number] [address] [place] [id number] Jun, [facility] [address] [id number] [address] [place] [id number] Jun, [facility] [address] [id number] [address] [place] [id number] Apr, [facility] [address] [id number] [address] [place] [id number] Mar, IMMUNIZATIONS No Known Immunizations SOCIAL HISTORY [...]
--- OUTSIDE RECORDS SUMMARY | 2020-03-18 14:59 | XMS REPORT ---
Author Author George WAYNE Organization [facility] Address [address] [place] [address] Care Team Providers Care Retort Forker Name Role Phone REYNA WAYNE Unavailable PROBLEMS Type Condition ICD9-CM Code HXU34-TZ Code Onset Dates Condition S tatus SNOMED Code Problem Hypertension, benign I10 Active 98565265 Problem Other chronic pain G89.29 Active 8 9937696 Problem Lumbago with sciatica, unspecified side M54.40 Active 162462680 Problem Controlled type 2 diabetes m ellitus without complication, without long- term current use of insulin E11.9 Active 117052616 Problem Lumbago with sciatica, right side M54.41 Active 236527164 Problem Adjustment disorder with disturbance of emotion F4 3.29 Active 80193719 Problem MELE (obstructive sleep apnea) G47.33 Active 18859084 Problem Non morbid obesity E66.9 Active 4 87926141 Problem Hammer toe of left foot M20.42 Active 810172061 Problem Mood disorder F39 Active 858738 05 Problem Deformity of left foot M21.962 Active 250945633 Problem Lumbago with sciatica, left side M54.42 Active 085197771 Problem Erectile dysfunction due to diseases classified elsewhere N52.1 Active 076621405 Problem Obstructive sleep apnea syndrome G47.33 Active 66531677 Problem Type 2 diabetes mellitus wit h diabetic neuropathy, without long-term current use of insulin E11.40 Active 11399 006 Problem Essential hypertension I10 Active 58557574 ALLERGIES No Information ENCOUNTERS Encounter Location Date Diagnosis [facility] [address] [facility] [id number] [address] [place] [id number] 13 Dec, 2019 Acute diffuse otitis externa of left ear H60.312 [facility] [address] [facility] [id number] [address] [place] [id number] 18 Nov, 2019 Viral URI J06.9 and Flu-like symptoms R68.89 [place] [address] [facility] [id number] [address] [place] [address] 09 Nov, 2019 Type 2 diabetes mellitus wit h diabetic neuropathy, without long- term current use of insulin E11.40 ; Family history of prostate cancer Z80.42 and Prostate cancer screening Z12.5 [place] [address] [place] [id number] [address] [place] [phone] Nov, [place] [address] [place] [id number] [address] [place] [phone] Sep, [place] [address] [place] [id number] [address] [place] [phone] Aug, [place] [address] [place] [id number] [place] [address] Jul, Lumbago with sciatica, unspe cified side M54.40 [place] [address] [place] [id number] [address] [place] [address] Jun, Lumbago with sciatica, unspe cified side M54.40 [place] [address] [place] [id number] [address] [place] [phone] Jun, URI, acute J06.9 [place] [address] [place] [id number] [address] [place] [phone] May, Lumbago with sciatica, unspe cified side M54.40 [place] [address] [facility] [id number] [address] [place] [phone] May, [place] [address] [place] [id number] [address] [place] [address] 12 May, 2019 Type 2 diabetes mellitus wit h diabetic neuropathy, without long- term current use of insulin E11.40 and Hammer toe of left foot M20.42 [place] [address] [facility] [id number] [address] [place] [phone] May, [place] [address] [place] [id number] [address] [place] [phone] May, [facility] [address] [place] [id number] [address] [place] [phone] May, [facility] [address] [place] [id number] [address] [place] [id number] Apr, Lumbago with sciatica, unspe cified side M54.40 [facility] [address] [place] [id number] [address] [place] [id number] Apr, [facility] [address] [place] [id number] [address] [place] [address] Apr, [address] [id number] [address] Apr, Hammer toe of left foot M20. 42 ; Chest pain R07.9 ; Preoperative examination Z01.818 and Morbid obesity E66.01 [place] [address] [place] [id number] [address] [place] [address] Apr, Morbid obesity E66.01 ; Bron chitis J40 and High risk medications (not anticoagulants) long-term use Z79.899 [place] [address] [place] [id number] [address] [place] [address] Apr, Lumbago with sciatica, unspe cified side M54.40 [facility] [address] [place] [id number] [address] [place] [phone] Apr, [facility] [address] [place] [id number] [address] [place] [address] Mar, Lumbar neuritis M54.16 and M orbid obesity E66.01 [facility] [address] [place] [id number] [address] [place] [phone] Mar, [facility] [address] [place] [id number] [address] [place] [id number] Mar, [facility] [address] [place] [id number] [address] [place] [address] Mar, Lumbago with sciatica, unspe cified side M54.40 [facility] [address] [id number] [address] [place] [phone] Mar, Morbid obesity E66.01 ; Gabe lara R05 ; 2+ pitting edema R60.9 and Controlled type 2 diabetes mellitus without complication, without long-term current use of insulin E11.9 [facility] [address] [id number] [address] [place] [phone] Feb, [facility] [address] [id number] [address] [place] [phone] Feb, Lumbago with sciatica, unspe cified side M54.40 [facility] [address] [id number] [address] [place] [phone] Feb, [facility] [address] [id number] [address] [place] [phone] Feb, Controlled type 2 diabetes m ellitus without complication, without long-term current use of insulin E11.9 and Morbid obesity E66.01 [facility] [address] [id number] [address] [place] [address] January, Deformity of left foot M21.9 62 [facility] [address] [id number] [address] [place] [phone] January, [facility] [address] [id number] [address] [place] [address] January, Lumbago with sciatica, unspe cified side M54.40 [facility] [address] [id number] [address] [place] [phone] January, [facility] [address] [id number] [address] [place] [address] January, Lumbago with sciatica, unspe cified side M54.40 [facility] [address] [id number] [address] [place] [phone] January, [facility] [address] [facility] [id number] [address] [place] [phone] January, Acute right-sided thoracic b ack pain M54.6 [facility] [address] [place] [id number] [address] [place] [address] January, Acute right-sided thoracic b ack pain M54.6 [facility] [address] [address] January, Chest pain, unspecified type R07.9 ; Morbid obesity E66.01 and Scabies B86 [facility] [address] [place] [id number] [address] [place] [address] Dec, Lumbago with sciatica, unspe cified side M54.40 [place] [address] [address] Dec, Toenail fungus B35.1 [facility] [address] [place] [id number] [address] [place] [address] Dec, Toenail fungus B35.1 [facility] [address] [address] Dec, Acute right-sided thoracic b ack pain M54.6 [place] [address] [place] [id number] [address] [place] [address] Dec, Lumbago with sciatica, unspe cified side M54.40 [facility] [address] [place] [id number] [address] [place] [address] Nov, Hammer toe of left foot M20. 42 ; Deformity of left foot M21.962 and Type 2 diabetes mellitus with diabetic neuropathy, without long-term current use of insulin E11.40 [facility] [address] [facility] [id number] [address] [place] [address] Nov, Acute right-sided thoracic b ack pain M54.6 ; Morbid obesity E66.01 and Rt flank pain R10.9 [place] [address] [facility] [id number] [address] [place] [address] Nov, Lumbago with sciatica, unspe cified side M54.40 [place] [address] [place] [id number] [address] [place] [phone] Oct, Lumbago with sciatica, unspe cified side M54.40 [place] [address] [place] [id number] [place] [phone] Sep, Lumbago with sciatica, unspe cified side M54.40 [place] [address] [place] [id number] [address] [place] [address] Sep, [place] [address] [place] [id number] [place] [address] Sep, BMI 40.0-44.9, adult Z68.41 ; Lumbago with sciatica, left side M54.42 ; Lumbago with sciatica, right side M54.41 and Other chronic pain G89.29 [place] [address] [place] [id number] [address] [place] [address] Aug, Lumbago with sciatica, unspe cified side M54.40 [place] [address] [place] [id number] [address] [place] [address] Aug, Type 2 diabetes mellitus wit h diabetic neuropathy, without long- term current use of insulin E11.40 ; Hammer toe of left foot M20.42 ; Hypertension, benign I10 and Frequent headaches R51 [place] [address] [place] [id number] [address] [place] [address] Jul, Lumbago with sciatica, unspe cified side M54.40 [place] [address] [place] [id number] [address] [place] [address] Jul, [place] [address] [place] [id number] [address] [place] [address] Jul, Essential hypertension I10 a nd Controlled type 2 diabetes mellitus without complication, without long-term current use of insulin E11.9 [facility] [address] [facility] [id number] [address] [place] [address] Jul, Essential hypertension I10 ; Controlled type 2 diabetes mellitus without complication, without long-term current use of insulin E11.9 and BMI 40.0-44.9, adult Z68.41 [facility] [address] [facility] [id number] [address] [place] [address] Jul, Dysfunction of left eustachi an tube H69.82 [facility] [address] [id number] [address] [place] [address] Jul, Lumbago with sciatica, unspe cified side M54.40 [facility] [address] [id number] [address] [place] [id number] Jun, Dental examination Z01.20 [facility] [address] [facility] [id number] [address] [place] [address] Jun, Lumbago with sciatica, unspe cified side M54.40 and Encounter for immunization Z23 [facility] [address] [facility] [id number] [address] [place] [address] Jun, Dysfunction of left eustachi an tube H69.82 [place] [id number] [facility] [id number] [place] [id number] Jun, Dental examination Z01.20 [facility] [address] [id number] [address] [place] [address] Jun, Other chronic pain G89.29 [facility] [address] [id number] [address] [place] [address] [id number] Jun, Dental examination Z01.20 [facility] [address] [id number] [address] [place] [id number] Jun, [facility] [address] [id number] [address] [place] [address] Jun, Bronchitis J40 ; Dysfunction of left eustachian tube H69.82 and BMI 45.0-49.9, adult Z68.42 [facility] [address] [place] [id number] [address] [place] [address] Jun, Lumbago with sciatica, unspe cified side M54.40 [facility] [address] [place] [id number] [address] [place] [address] May, Type 2 diabetes mellitus wit h diabetic neuropathy, without long- term current use of insulin E11.40 and Hypertension, benign I10 [facility] [address] [place] [id number] [address] [place] [address] May, Lumbago with sciatica, unspe cified side M54.40 [facility] [address] [place] [id number] [address] [place] [address] Apr, [facility] [address] [address] Apr, Controlled type 2 diabetes m ellitus without complication, without long-term current use of insulin E11.9 ; Insect bite (nonvenomous), right ankle, initial encounter S90.561A ; Local infection of the skin and subcutaneous tissue, unspecified L08.9 ; Acute swimmer''s ear of left side H60.332 and BMI 45.0-49.9, adult Z68.42 [place] [address] [place] [id number] [address] [place] [address] Apr, Lumbago with sciatica, unspe cified side M54.40 [facility] [address] [place] [id number] [address] [place] [address] Mar, [place] [address] [place] [id number] [place] [address] Mar, Lumbago with sciatica, unspe cified side M54.40 [facility] [address] [place] [id number] [address] [place] [address] Feb, Lumbago with sciatica, unspe cified side M54.40 [facility] [address] [facility] [id number] [address] [place] [address] Feb, BMI 45.0-49.9, adult Z68.42 and Obstructive sleep apnea syndrome G47.33 [place] [address] [place] [id number] [address] [place] [address] January, Lumbar neuritis M54.16 [place] [address] [facility] [id number] [address] [place] [address] January, Lumbago with sciatica, unspe cified side M54.40 [place] [address] [place] [id number] [place] [address] Dec, Controlled type 2 diabetes m maribell without complication, without long-term current use of insulin E11.9 ; Erectile dysfunction due to diseases classified elsewhere N52.1 and Mood disorder F39 [place] [address] [place] [id number] [address] [place] [address] Dec, Lumbago with sciatica, unspe cified side M54.40 [place] [address] [place] [id number] [address] [place] [address] Dec, Obstructive sleep apnea synd luis G47.33 [place] [address] [place] [id number] [address] [place] [address] Nov, Lumbago with sciatica, unspe cified side M54.40 ; Hypertension, benign I10 and Mood disorder F39 [facility] [address] [place] [id number] [address] [place] [address] Nov, Other chronic pain G89.29 [facility] [address] [facility] [id number] [address] [place] [address] Nov, Lumbago with sciatica, unspe cified side M54.40 [facility] [address] [id number] [address] [place] [address] [id number] Nov, Dental examination Z01.20 [facility] [address] [facility] [id number] [address] [place] [phone] Oct, [facility] [address] [facility] [id number] [address] [place] [address] Oct, Lumbago with sciatica, unspe cified side M54.40 [facility] [address] [facility] [id number] [address] [place] [address] Oct, Lumbago with sciatica, unspe cified side M54.40 [facility] [address] [facility] [id number] [address] [place] [address] Oct, [facility] [address] [facility] [id number] [address] [place] [address] Oct, [facility] [address] [facility] [id number] [address] [place] [address] [id number] Oct, Dental examination Z01.20 [facility] [address] [facility] [id number] [address] [place] [phone] Oct, [facility] [address] [facility] [id number] [address] [place] [address] Oct, Pain in right knee M25.561 [facility] [address] [facility] [id number] [address] [place] [phone] Sep, [facility] [address] [facility] [id number] [address] [place] [id number] Sep, Other chronic pain G89.29 [facility] [address] [facility] [id number] [address] [place] [address] Sep, Lumbago with sciatica, unspe cified side M54.40 [facility] [address] [facility] [id number] [address] [place] [phone] Sep, [facility] [address] [facility] [id number] [address] [place] [address] Sep, Viral URI J06.9 and BMI 45.0 -49.9, adult Z68.42 [facility] [address] [facility] [id number] [address] [place] [address] Aug, Foreign body hand S60.559A a nd BMI 45.0-49.9, adult Z68.42 [facility] [address] [facility] [id number] [address] [place] [phone] Aug, [facility] [address] [place] [id number] [address] [place] [address] Aug, Lumbago with sciatica, unspe cified side M54.40 [facility] [address] [facility] [id number] [address] [place] [address] Aug, Vertigo R42 ; Dysfunction of both eustachian tubes H69.83 ; Low back pain M54.5 and Other chronic pain G89.29 [facility] [address] [facility] [id number] [address] [place] [address] Aug, Dizziness R42 and Acute bila teral otitis media H66.93 [facility] [address] [facility] [id number] [address] [place] [phone] Aug, Lumbago with sciatica, unspe cified side M54.40 [facility] [address] [facility] [id number] [address] [place] [address] [id number] Jul, Dental examination Z01.20 [facility] [address] [place] [id number] [address] [place] [phone] Jul, [facility] [address] [facility] [id number] [address] [place] [phone] Jul, [facility] [address] [facility] [id number] [address] [place] [address] Jul, Dysfunction of both eustachi an tubes H69.83 [facility] [address] [facility] [id number] [address] [place] [phone] 07 Jul, 2017 Controlled type 2 diabetes m taraitus without complication, without long-term current use of insulin E11.9 [facility] [address] [id number] [address] [place] [phone] Jul, Controlled type 2 diabetes m ellitus without complication, without long-term current use of insulin E11.9 [facility] [address] [id number] [address] [place] [address] Jul, Dizziness R42 and BMI 40.0-4 4.9, adult Z68.41 [facility] [address] [facility] [id number] [address] [place] [phone] Jul, Controlled type 2 diabetes m ellitus without complication, without long-term current use of insulin E11.9 [facility] [address] [facility] [id number] [address] [place] [phone] Jul, Lumbago with sciatica, unspe cified side M54.40 [facility] [id number] [place] [address] [id number] Jul, Dental examination Z01.20 [facility] [address] [id number] [address] [place] [phone] Jun, [facility] [id number] [place] [address] [id number] Jun, Dental examination Z01.20 [facility] [address] [facility] [id number] [address] [place] [phone] Jun, Controlled type 2 diabetes m ellitus without complication, without long-term current use of insulin E11.9 [facility] [address] [id number] [address] [place] [phone] Jun, Lumbago with sciatica, unspe cified side M54.40 [facility] [id number] [place] [phone] May, Dental examination Z01.20 [facility] [address] [id number] [address] [place] [phone] May, Controlled type 2 diabetes m ellitus without complication, without long-term current use of insulin E11.9 [facility] [address] [id number] [address] [place] [phone] 19 May, 2017 Dental examination Z01.20 [facility] [address] [facility] [id number] [address] [place] [phone] 18 May, 2017 Bronchitis J40 ; Dry mouth R 68.2 ; Non morbid obesity E66.9 and Controlled type 2 diabetes mellitus without complication, without long-term current use of insulin E11.9 [facility] [address] [facility] [id number] [address] [place] [phone] 16 May, 2017 Encounter for immunization Z [address] [place] [id number] [address] [facility] [id number] [place] [phone] 07 May, 2017 Lumbago with sciatica, unspe cified side M54.40 [facility] [address] [facility] [id number] [address] [place] [phone] 05 May, 2017 [facility] [id number] [place] [address] [phone] Apr, Dental examination Z01.20 [facility] [address] [id number] [address] [place] [phone] Apr, Lumbago with sciatica, unspe cified side M54.40 [facility] [address] [facility] [id number] [address] [place] [phone] Mar, Lumbago with sciatica, left side M54.42 [facility] [address] [facility] [id number] [address] [place] [phone] Mar, [facility] [address] [facility] [id number] [address] [place] [phone] Mar, Lumbar neuritis M54.16 [facility] [address] [facility] [id number] [address] [place] [phone] Mar, [facility] [address] [id number] [address] [place] [phone] Mar, Dental examination Z01.20 [place] [address] [address] [facility] [id number] [address] [place] [id number] Mar, MELE (obstructive sleep apnea ) G47.33 ; Neuropathy involving both lower extremities G57.93 and Frequent headaches R51 [place] [address] [address] [facility] [id number] [address] [place] [address] Mar, Lumbago with sciatica, unspe cified side M54.40 [place] [address] [address] [place] [id number] [address] [place] [address] Feb, Lumbago with sciatica, unspe cified side M54.40 and Controlled type 2 diabetes mellitus without complication, without long-term current use of insulin E11.9 [place] [address] [address] [place] [id number] [place] [phone] January, Hypertension, benign I10 and Bilateral low back pain with sciatica, sciatica laterality unspecified M54.40 [place] [address] [address] [place] [id number] [place] [phone] January, Hypertension, benign I10 ; L umbago with sciatica, unspecified side M54.40 ; Other chronic pain G89.29 and Controlled type 2 diabetes mellitus without complication, without long-term current use of insulin E11.9 [place] [address] [address] [place] [id number] [address] [place] [address] January, Lumbar neuritis M54.16 [place] [address] [address] [place] [id number] [address] [place] [address] January, [place] [address] [address] [place] [id number] [address] [place] [address] Dec, Lumbago with sciatica, right side M54.41 and Lumbar neuritis M54.16 [place] [address] [address] [place] [id number] [address] [place] [address] Dec, Lumbar neuritis M54.16 [place] [address] [address] [place] [id number] [address] [place] [id number] Dec, Lumbar neuritis M54.16 [place] [address] [place] [id number] [address] [place] [address] Nov, Lumbar neuritis M54.16 ; Lum bago with sciatica, right side M54.41 ; Controlled type 2 diabetes mellitus without complication, without long-term current use of insulin E11.9 and Rash and nonspecific skin eruption R21 [place] [address] [address] [place] [id number] [address] [place] [phone] Nov, Lumbar neuritis M54.16 and P derickpeter miroslava L23.7 [place] [address] [address] [place] [id number] [address] [place] [address] Oct, Lumbar neuritis M54.16 ; Cou ghing R05 and Mood disorder F39 [place] [address] [address] [place] [id number] [address] [place] [address] Sep, Lumbago with sciatica, right side M54.41 [place] [address] [address] [place] [id number] [address] [place] [phone] Sep, Adjustment disorder with dis turbance of emotion F43.29 and Pain management R52 [place] [address] [address] [place] [id number] [address] [place] [address] Sep, [place] [address] [address] [place] [id number] [address] [place] [id number] Sep, [place] [address] [address] [place] [id number] [address] [place] [address] Sep, Controlled type 2 diabetes evens reyna without complication, without long-term current use of insulin E11.9 and Lumbago with sciatica, unspecified side M54.40 [place] [address] [address] [place] [id number] [address] [place] [id number] Aug, Controlled type 2 diabetes evens reyna without complication, without long-term current use of insulin E11.9 ; Pain in right knee M25.561 ; Pain in left knee M25.562 ; Other chronic pain G89.29 ; Lumbago with sciatica, right side M54.41 ; Neck pain M54.2 and Encounter for immunization Z23 [facility] [address] [id number] [address] [place] [id number] Jul, [facility] [address] [id number] [address] [place] [id number] Jul, Controlled type 2 diabetes m maribell without complication, without long-term current use of insulin E11.9 [facility] [address] [id number] [address] [place] [id number] Jul, [facility] [address] [id number] [address] [place] [address] Jul, [facility] [address] [id number] [address] [place] [id number] Jul, Lumbago with sciatica, left side M54.42 ; Lumbago with sciatica, right side M54.41 and Other chronic pain G89.29 [facility] [address] [id number] [address] [place] [address] Jul, [facility] [address] [id number] [address] [place] [address] Jul, [facility] [address] [id number] [address] [place] [address] Jun, [facility] [address] [id number] [address] [place] [id number] Jun, Lumbago with sciatica, right side M54.41 and Other chronic pain G89.29 [facility] [address] [id number] [address] [place] [address] Jun, Cervicalgia M54.2 ; Lumbago with sciatica, unspecified side M54.40 and Other chronic pain G89.29 [facility] [address] [id number] [address] [place] [id number] 15 May, 2016 Pain in right knee M25.561 ; Pain in left knee M25.562 and Other chronic pain G89.29 [facility] [address] [id number] [address] [place] [address] May, [facility] [address] [id number] [address] [place] [address] Apr, Other chronic pain G89.29 an d Pain in right knee M25.561 [facility] [address] [id number] [address] [place] [address] Apr, Pain in right knee M25.561 [facility] [address] [id number] [address] [place] [id number] Mar, [facility] [address] [id number] [address] [place] [id number] Mar, Mood disorder F39 and Contro lled type 2 diabetes mellitus without complication, without long-term current use of insulin E11.9 [facility] [address] [id number] [address] [place] [address] Mar, Pain in right knee M25.561 ; Pain in left knee M25.562 ; Other chronic pain G89.29 ; Obstructive sleep apnea syndrome G47.33 ; Mood disorder F39 and Controlled type 2 diabetes mellitus without complication, without long- term current use of insulin E11.9 [facility] [address] [id number] [address] [place] [phone] Mar, [facility] [address] [id number] [address] [place] [id number] Feb, Dental examination Z01.20 [facility] [address] [id number] [address] [place] [id number] Feb, [facility] [address] [id number] [address] [place] [id number] Feb, Osteoarthritis of right knee , unspecified osteoarthritis type M17.9 [facility] [address] [id number] [address] [place] [id number] January, [facility] [address] [id number] [address] [place] [address] [id number] January, Dental examination Z01.20 [facility] [address] [id number] [address] [place] [id number] January, [facility] [address] [id number] [address] [place] [address] [id number] January, Dental examination Z01.20 an d Caries K02.9 [facility] [address] [id number] [address] [place] [address] Dec, Encounter for other preproce dural examination Z01.818 [facility] [address] [id number] [address] [place] [address] Dec, [facility] [address] [id number] [address] [place] [address] Dec, Knee pain M25.569 [facility] [address] [id number] [address] [place] [address] Dec, Pain in right knee M25.561 [facility] [address] [id number] [address] [place] [id number] Dec, [facility] [address] [id number] [address] [place] [phone] Dec, [facility] [address] [id number] [address] [place] [id number] Dec, Encounter for immunization Z 23 [facility] [address] [id number] [address] [place] [phone] Dec, [facility] [address] [id number] [address] [place] [id number] Dec, [facility] [address] [id number] [address] [place] [id number] Nov, [facility] [address] [id number] [address] [place] [id number] Nov, Hypertension, benign I10 ; C ervicalgia M54.2 ; Pain in right knee M25.561 and Pain in left knee M25.562 [place] [address] [facility] [id number] [address] [place] [address] Oct, [facility] [address] [facility] [id number] [address] [place] [id number] Oct, [facility] [address] [facility] [id number] [address] [place] [address] Oct, Osteoarthritis of both knees M17.0 [place] [address] [address] [facility] [id number] [address] [place] [id number] Oct, [place] [address] [address] [facility] [id number] [address] [place] [id number] Oct, Low back pain M54.5 [place] [address] [address] [facility] [id number] [address] [place] [address] Oct, Low back pain M54.5 ; Sciati ca, unspecified side M54.30 ; Pain in right knee M25.561 ; Pain in left knee M25.562 ; Pain in right shoulder M25.511 and Pain in left shoulder M25.512 [place] [address] [address] [facility] [id number] [address] [place] [address] Oct, [place] [address] [address] [facility] [id number] [address] [place] [address] Sep, Pain in right hip M25.551 [place] [address] [address] [facility] [id number] [address] [place] [id number] Sep, Acute upper respiratory infe ction, unspecified J06.9 [place] [address] [address] [facility] [id number] [address] [place] [phone] Aug, Acute upper respiratory infe ction, unspecified J06.9 and Other viral agents as the cause of diseases classified elsewhere B97.89 [place] [address] [address] [facility] [id number] [address] [place] [address] Jul, Arthritis M19.90 [facility] [address] [id number] [address] [place] [address] Jun, Arthritis M19.90 ; Pain in r ight hip M25.551 ; Pain in left hip M25.552 ; Bilateral low back pain with sciatica, sciatica laterality unspecified M54.40 ; Neck pain M54.2 ; Upper back pain M54.9 and Knee pain, unspecified laterality M25.569 [facility] [address] [id number] [address] [place] [address] May, Osteoarthritis of both knees 715.96 [facility] [address] [id number] [address] [place] [address] May, Rash 782.1 [facility] [address] [id number] [address] [place] [address] Apr, Lumbar strain 847.2 [facility] [address] [id number] [address] [place] [address] Apr, Rash 782.1 [facility] [address] [id number] [address] [place] [id number] Mar, Rash 782.1 [facility] [address] [facility] [id number] [address] [place] [phone] Feb, Rash 782.1 ; Hemorrhoids 455 .6 and Constipation 564.00 [facility] [address] [id number] [address] [place] [address] Feb, Osteoarthritis of both knees 715.96 [facility] [address] [id number] [address] [place] [address] January, [facility] [address] [id number] [address] [place] [id number] Dec, [facility] [address] [facility] [id number] [address] [place] [id number] Dec, [facility] [address] [id number] [address] [place] [phone] 13 Dec, 2014 [facility] [address] [id number] [address] [place] [address], [place] [address] 18 Nov, 2014 [facility] [address] [id number] [address] [place] [address], [place] [address] 18 Nov, 2014 [facility] [address] [id number] [address] [place] [address], [place] [address] 18 Nov, 2014 [facility] [address] [id number] [address] [place] [address], [place] [address] 18 Nov, 2014 [facility] [address] [id number] [address] [place] [address], [place] [address] Nov, [facility] [address] [id number] [address] [place] [address], [place] [address] Nov, [facility] [address] [id number] [address] [place] [address], [place] [address] Oct, [facility] [address] [id number] [address] [place] [address], [place] [address] Oct, [facility] [address] [id number] [address] [place] [address], [place] [address] Oct, 2014 [facility] [address] [id number] [address] [place] [address], [place] [address] Oct, [facility] [address] [id number] [address] [place] [address], [place] [address] Oct, 2014 [facility] [address] [id number] [address] [place] [address], [place] [address] Oct, 2014 [facility] [address] [id number] [address] [place] [address], [place] [address] Oct, 2014 [facility] [address] [id number] [address] [place] [address], [place] [address] Oct, 2014 [facility] [address] [id number] [address] [place] [address], [place] [address] Oct, [facility] [address] [id number] [address] [place] [address], [place] [address] Oct, [facility] [address] [id number] [address] [place] [address], [place] [address] Oct, [facility] [address] [id number] [address] [place] [address], [place] [address] Sep, [facility] [address] [id number] [address] [place] [address], [place] [address] Sep, [facility] [address] [id number] [address] [place] [address], [place] [address] Sep, [facility] [address] [id number] [address] [place] [address], [place] [address] Sep, [facility] [address] [id number] [address] [place] [address], [place] [address] Sep, [facility] [address] [id number] [address] [place] [address], [place] [address] Sep, [facility] [address] [id number] [address] [place] [address], [place] [address] Aug, [facility] [address] [id number] [address] [place] [address], [place] [address] Aug, [facility] [address] [id number] [address] [place] [address], [place] [address] Aug, [facility] [address] [id number] [address] [place] [address], [place] [address] Aug, [facility] [address] [id number] [address] [place] [address], [place] [address] Aug, [facility] [address] [id number] [address] [place] [address], [place] [address] Aug, [facility] [address] [id number] [address] [place] [address], [place] [address] Aug, [facility] [address] [id number] [address] [place] [address], [place] [address] Aug, [facility] [address] [id number] [address] [place] [address], [place] [address] Aug, [facility] [address] [id number] [address] [place] [address], [place] [address] Aug, [facility] [address] [id number] [address] [place] [address], [place] [address] Jul, [facility] [address] [id number] [address] [place] [address], [place] [address] Jul, [facility] [address] [id number] [address] [place] [address], [place] [address] Jul, [facility] [address] [id number] [address] [place] [address], [place] [address] Jul, [facility] [address] [id number] [address] [place] [address], [place] [address] Jun, [facility] [address] [id number] [address] [place] [address], [place] [address] Jun, [facility] [address] [id number] [address] [place] [address], [place] [address] Jun, [facility] [address] [id number] [address] [place] [address], [place] [address] Jun, [facility] [address] [id number] [address] [place] [address], [place] [address] Jun, [facility] [address] [id number] [address] [place] [address], [place] [address] Jun, [facility] [address] [id number] [address] [place] [address], [place] [address] Jun, [facility] [address] [id number] [address] [place] [address], [place] [address] Jun, [facility] [address] [id number] [address] [place] [address], [place] [address] May, [facility] [address] [id number] [facility] [place] [address] 24 May, 2013 [facility] [address] [id number] [facility] [place] [address] 19 May, 2014 [facility] [address] [id number] [facility] [place] [address] 19 May, 2013 [facility] [address] [id number] [address] [place] [address], [place] [address] 15 May, 2014 [facility] [address] [id number] [address] [place] [address], [place] [address] 15 May, 2014 [facility] [address] [id number] [address] [place] [address], [place] [address] 15 May, 2014 [facility] [address] [id number] [address] [place] [address], [place] [address] May, [facility] [address] [id number] [address] [place] [address], [place] [address] Apr, [facility] [address] [id number] [address] [place] [address], [place] [address] Apr, [facility] [address] [id number] [address] [place] [address], [place] [address] Apr, [facility] [address] [id number] [address] [place] [address], [place] [address] Apr, [facility] [address] [id number] [address] [place] [address], [place] [address] Apr, [facility] [address] [id number] [address] [place] [address], [place] [address] Apr, [facility] [address] [id number] [address] [place] [address], [place] [address] Apr, [facility] [address] [id number] [address] [place] [address], [place] [address] Apr, [facility] [address] [id number] [address] [place] [address], [place] [address] Apr, [facility] [address] [id number] [address] [place] [address], [place] [address] Apr, [facility] [address] [id number] [address] [place] [address], [place] [id number] Apr, [facility] [address] [id number] [address] [place] [address], [place] [id number] Apr, [facility] [address] [id number] [address] [place] [address], [place] [id number] Mar, [facility] [address] [id number] [address] [place] [address], [place] [id number] Mar, [facility] [address] [id number] [address] [place] [address], [place] [id number] Mar, [facility] [address] [id number] [address] [place] [address], [place] [id number] Mar, [facility] [address] [id number] [address] [place] [address], [place] [id number] Mar, [facility] [address] [id number] [address] [place] [address], [place] [id number] Mar, [facility] [address] [id number] [address] [place] [address], [place] [id number] Feb, [facility] [address] [id number] [address] [place] [address], [place] [id number] Feb, [facility] [address] [id number] [address] [place] [address], [place] [id number] Feb, [facility] [address] [id number] [address] [place] [address], [place] [id number] Feb, [facility] [address] [id number] [address] [place] [address], [place] [id number] Feb, [facility] [address] [id number] [address] [place] [address], [place] [id number] Feb, [facility] [address] [id number] [facility] [place] [id number] Feb, [facility] [address] [id number] [address] [place] [address], [place] [id number] Feb, [facility] [address] [id number] [address] [place] [address], [place] [id number] Feb, [facility] [address] [id number] [address] [place] [address], [place] [id number] Feb, [facility] [address] [id number] [address] [place] [address], [place] [id number] Feb, [facility] [address] [id number] [address] [place] [address], [place] [id number] Feb, [facility] [address] [id number] [address] [place] [address], [place] [id number] Feb, [facility] [address] [id number] [address] [place] [address], [place] [id number] Feb, [facility] [address] [id number] [address] [place] [address], [place] [id number] January, [facility] [address] [id number] [address] [place] [address], [place] [id number] January, [facility] [address] [id number] [address] [place] [address], [place] [id number] January, [facility] [address] [id number] [address] [place] [address], [place] [id number] January, [facility] [address] [id number] [address] [place] [address], [place] [id number] January, [facility] [address] [id number] [address] [place] [address], [place] [id number] January, [facility] [address] [id number] [address] [place] [address], [place] [id number] Dec, [facility] [address] [id number] [address] [place] [address], [place] [id number] Dec, [facility] [address] [id number] [address] [place] [address], [place] [id number] Dec, [facility] [address] [id number] [address] [place] [address], [place] [id number] Dec, [facility] [address] [id number] [address] [place] [address], [place] [id number] Dec, [facility] [address] [id number] [address] [place] [address], [place] [id number] Dec, [facility] [address] [address] [id number] [address] [place] [address], [place] [id number] Dec, [facility] [address] [id number] [address] [place] [address], [place] [address] Dec, [facility] [address] [id number] [address] [place] [address], [place] [address] Nov, [facility] [address] [id number] [address] [place] [address], [place] [address] Nov, [facility] [address] [id number] [address] [place] [address], [place] [address] Nov, [facility] [address] [id number] [address] [place] [address], [place] [address] Nov, [facility] [address] [id number] [address] [place] [address], [place] [address] Nov, [facility] [address] [id number] [address] [place] [address], [place] [address] Nov, [facility] [address] [id number] [address] [place] [address], [place] [address] Nov, [facility] [address] [id number] [address] [place] [address], [place] [address] Nov, [facility] [address] [id number] [address] [place] [address], [place] [address] Oct, [facility] [address] [id number] [address] [place] [address], [place] [address] Oct, [facility] [address] [id number] [address] [place] [address], [place] [address] Oct, [facility] [address] [id number] [address] [place] [address], [place] [address] Oct, [facility] [address] [id number] [address] [place] [address], [place] [id number] Oct, [facility] [address] [id number] [address] [place] [address], [place] [address] Oct, [facility] [address] [id number] [address] [place] [address], [place] [address] Oct, [facility] [address] [id number] [address] [place] [address], [place] [address] Oct, [facility] [address] [id number] [address] [place] [address], [place] [address] Oct, [facility] [address] [id number] [address] [place] [address], [place] [address] Oct, [facility] [address] [id number] [address] [place] [address], [place] [address] Sep, [facility] [address] [id number] [address] [place] [address], [place] [address] Sep, [facility] [address] [id number] [address] [place] [address], [place] [address] Sep, [facility] [address] [id number] [address] [place] [address], [place] [address] Sep, [facility] [address] [id number] [address] [place] [address], [place] [id number] Sep, [facility] [address] [id number] [address] [place] [address], [place] [address] Sep, [facility] [address] [id number] [address] [place] [address], [place] [address] Aug, [facility] [address] [id number] [address] [place] [address], [place] [address] Aug, [facility] [address] [id number] [address] [place] [address], [place] [address] Aug, [facility] [address] [id number] [address] [place] [address], [place] [address] Aug, [facility] [address] [id number] [address] [place] [address], [place] [address] Aug, [facility] [address] [id number] [address] [place] [address], [place] [address] Aug, [facility] [address] [id number] [address] [place] [address], [place] [address] Aug, [facility] [address] [id number] [address] [place] [address], [place] [address] Aug, [facility] [address] [id number] [address] [place] [address], [place] [address] Jul, [facility] [address] [id number] [address] [place] [address], [place] [address] Jul, [facility] [address] [id number] [address] [place] [address], [place] [address] Jul, [facility] [address] [id number] [address] [place] [address], [place] [address] Jul, [facility] [address] [id number] [address] [place] [id number] Jul, [facility] [address] [id number] [address] [place] [address], [place] [address] Jul, [facility] [address] [id number] [address] [place] [address], [place] [address] Jun, [facility] [address] [id number] [address] [place] [address], [place] [address] Jun, [facility] [address] [id number] [address] [place] [address] [place] [address] Jun, [facility] [address] [id number] [address] [place] [address], [place] [address] 24 May, 2013 [facility] [address] [id number] [address] [place] [address], [place] [address] May, [facility] [address] [id number] [address] [place] [address], [place] [address] May, [facility] [address] [id number] [address] [place] [address], [place] [address] Apr, [facility] [address] [id number] [address] [place] [address], [place] [address] Apr, [facility] [address] [id number] [address] [place] [address], [place] [address] Apr, [facility] [address] [id number] [address] [place] [address], [place] [address] Apr, [facility] [address] [id number] [address] [place] [address], [place] [address] Mar, [facility] [address] [id number] [address] [place] [address], [place] [address] Mar, [facility] [address] [id number] [address] [place] [address], [place] [address] Mar, [facility] [address] [id number] [address] [place] [address], [place] [address] Mar, [facility] [address] [id number] [address] [place] [address], [place] [address] Feb, [facility] [address] [id number] [address] [place] [address], [place] [address] Feb, [facility] [address] [id number] [address] [place] [address], [place] [address] Feb, [facility] [address] [id number] [address] [place] [address], [place] [address] Feb, [facility] [address] [id number] [address] [place] [address], [place] [address] January, [facility] [address] [id number] [address] [place] [address], [place] [address] January, [facility] [address] [id number] [address] [place] [address], [place] [address] January, [facility] [address] [id number] [address] [place] [address], [place] [address] Nov, [facility] [address] [id number] [address] [place] [address], [place] [address] Nov, [facility] [address] [id number] [address] [place] [address], [place] [address] Oct, [facility] [address] [id number] [address] [place] [address], [place] [address] Oct, [facility] [address] [id number] [address] [place] [address], [place] [address] Oct, [facility] [address] [id number] [address] [place] [address], [place] [address] Oct, [facility] [address] [id number] [address] [place] [address], [place] [address] Sep, [facility] [address] [id number] [address] [place] [address], [place] [address] Sep, [facility] [address] [id number] [address] [place] [address], [place] [address] Sep, [facility] [address] [id number] [address] [place] [address], [place] [address] Aug, [facility] [address] [id number] [address] [place] [address], [place] [address] Aug, [facility] [address] [id number] [address] [place] [address], [place] [address] Aug, [facility] [address] [id number] [address] [place] [address], [place] [address] Aug, [facility] [address] [id number] [address] [place] [address], [place] [address] Aug, [facility] [address] [id number] [address] [place] [address], [place] [address] Aug, [facility] [address] [id number] [address] [place] [address], [place] [address] Jul, [facility] [address] [id number] [address] [place] [address], [place] [address] Jul, [facility] [address] [id number] [address] [place] [address], [place] [address] Jun, [facility] [address] [id number] [address] [place] [address], [place] [address] Jun, [facility] [address] [id number] [address] [place] [address], [place] [address] Jun, [facility] [address] [id number] [address] [place] [address], [place] [address] Apr, [facility] [address] [id number] [address] [place] [address], [place] [address] Apr, [facility] [address] [id number] [address] [place] [address], [place] [address] Mar, [facility] [address] [id number] [address] [place] [address], [place] [address] Mar, [facility] [address] [id number] [address] [place] [id number] Mar, [facility] [address] [id number] [address] [place] [address], [place] [address] Mar, [facility] [address] [id number] [address] [place] [address], [place] [address] Feb, [facility] [address] [id number] [address] [place] [address], [place] [address] Feb, [facility] [address] [id number] [address] [place] [address], [place] [address] Feb, [facility] [address] [id number] [address] [place] [address], [place] [address] January, [facility] [address] [id number] [address] [place] [address], [place] [address] January, [facility] [address] [id number] [address] [place] [address], [place] [address] January, [facility] [address] [id number] [address] [place] [address], [place] [address] January, [facility] [address] [id number] [address] [place] [address], [place] [address] Dec, [facility] [address] [id number] [address] [place] [address], [place] [address] Dec, [facility] [address] [id number] [address] [place] [address], [place] [address] Nov, [facility] [address] [id number] [address] [place] [address], [place] [address] Nov, [facility] [address] [id number] [address] [place] [address], [place] [address] 16 Oct, 2011 [facility] [address] [id number] [address] [place] [address], [place] [address] Oct, [facility] [address] [id number] [address] [place] [address], [place] [address] Sep, [facility] [address] [id number] [address] [place] [address], [place] [address] Sep, [facility] [address] [id number] [address] [place] [address], [place] [address] Sep, [facility] [address] [id number] [address] [place] [address], [place] [address] Sep, [facility] [address] [id number] [address] [place] [address], [place] [address] Aug, [facility] [address] [id number] [address] [place] [id number] 16 Aug, 2011 [facility] [address] [id number] [address] [place] [address] Aug, [facility] [address] [id number] [address] [place] [id number] Jul, [facility] [address] [id number] [address] [place] [id number] Aug, [facility] [address] [id number] [address] [place] [address], [place] [address] Aug, [facility] [address] [id number] [address] [place] [id number] Aug, [facility] [address] [id number] [address] [place] [id number] Aug, [facility] [address] [id number] [address] [place] [id number] Jul, [facility] [address] [id number] [address] [place] [id number] Jul, [facility] [address] [id number] [address] [place] [id number] Jul, [facility] [address] [id number] [address] [place] [id number] Jun, [facility] [address] [id number] [address] [place] [id number] Jun, [facility] [address] [id number] [address] [place] [id number] Jun, [facility] [address] [id number] [address] [place] [id number] Apr, [facility] [address] [id number] [address] [place] [id number] Mar, IMMUNIZATIONS No Known Immunizations SOCIAL HISTORY Never Assessed REASON FOR VISIT PLAN OF CARE VITAL SIGNS Height 66 in 2012-02-28 Weight 243 lbs 2012-02-28 Temperature 97.7 degrees Fahrenheit 2012-02-28 Heart Rate 74 bpm 2012-02-28 Respiratory Rate 18 2012-02-28 Blood pressure systolic 164 mmHg 2012-02-28 Blood pressure diastolic 80 mmHg 2012-02-28 MEDICATIONS No Known Medications RESULTS No Results [...]
--- OUTSIDE RECORDS SUMMARY | 2020-03-18 15:00 | XMS REPORT ---
Author Author George WAYNE Organization [facility] Address [address] [place] [address] Care Team Providers Care Stair Builder Name Role Phone REYNA WAYNE Unavailable PROBLEMS Type Condition ICD9-CM Code PRA76-VR Code Onset Dates Condition S tatus SNOMED Code Problem Hypertension, benign I10 Active 98738440 Problem Other chronic pain G89.29 Active 8 3324618 Problem Lumbago with sciatica, unspecified side M54.40 Active 684802576 Problem Controlled type 2 diabetes m ellitus without complication, without long- term current use of insulin E11.9 Active 533827854 Problem Lumbago with sciatica, right side M54.41 Active 343324850 Problem Adjustment disorder with disturbance of emotion F4 3.29 Active 37465358 Problem MELE (obstructive sleep apnea) G47.33 Active 75776276 Problem Non morbid obesity E66.9 Active 4 58285902 Problem Hammer toe of left foot M20.42 Active 485714543 Problem Mood disorder F39 Active 551205 05 Problem Deformity of left foot M21.962 Active 765849334 Problem Lumbago with sciatica, left side M54.42 Active 735571550 Problem Erectile dysfunction due to diseases classified elsewhere N52.1 Active 290735195 Problem Obstructive sleep apnea syndrome G47.33 Active 57003862 Problem Type 2 diabetes mellitus wit h diabetic neuropathy, without long-term current use of insulin E11.40 Active 62491 006 Problem Essential hypertension I10 Active 15246055 ALLERGIES No Information ENCOUNTERS Encounter Location Date Diagnosis [facility] [address] [facility] [id number] [address] [place] [id number] 13 Dec, 2019 Acute diffuse otitis externa of left ear H60.312 [facility] [address] [facility] [id number] [address] [place] [id number] 18 Nov, 2019 Viral URI J06.9 and Flu-like symptoms R68.89 [place] [address] [facility] [id number] [address] [place] [phone] 09 Nov, 2019 Type 2 diabetes mellitus wit h diabetic neuropathy, without long- term current use of insulin E11.40 ; Family history of prostate cancer Z80.42 and Prostate cancer screening Z12.5 [place] [address] [address] [place] [id number] [address] [place] [phone] Nov, [place] [address] [place] [id number] [address] [place] [phone] Sep, [place] [address] [place] [id number] [address] [place] [phone] Aug, [place] [address] [place] [id number] [place] [phone] Jul, Lumbago with sciatica, unspe cified side M54.40 [place] [address] [place] [id number] [address] [place] [phone] Jun, Lumbago with sciatica, unspe cified side M54.40 [place] [address] [place] [id number] [address] [place] [phone] Jun, URI, acute J06.9 [place] [address] [place] [id number] [address] [place] [phone] May, Lumbago with sciatica, unspe cified side M54.40 [place] [address] [facility] [id number] [address] [place] [phone] May, [place] [address] [place] [id number] [address] [place] [id number] 12 May, 2019 Type 2 diabetes mellitus wit h diabetic neuropathy, without long- term current use of insulin E11.40 and Hammer toe of left foot M20.42 [place] [address] [facility] [id number] [address] [place] [phone] May, [place] [address] [place] [id number] [address] [place] [phone] May, [facility] [address] [place] [id number] [address] [place] [phone] May, [facility] [address] [place] [id number] [address] [place] [phone] Apr, Lumbago with sciatica, unspe cified side M54.40 [facility] [address] [place] [id number] [address] [place] [phone] Apr, [facility] [address] [place] [id number] [address] [place] [phone] Apr, [address] [place] [address] Apr, Hammer toe of left foot M20. 42 ; Chest pain R07.9 ; Preoperative examination Z01.818 and Morbid obesity E66.01 [place] [address] [address] [place] [id number] [address] [place] [phone] Apr, Morbid obesity E66.01 ; Bron chitis J40 and High risk medications (not anticoagulants) long-term use Z79.899 [place] [address] [address] [place] [id number] [address] [place] [phone] Apr, Lumbago with sciatica, unspe cified side M54.40 [facility] [address] [place] [id number] [address] [place] [id number] Apr, [facility] [address] [place] [id number] [address] [place] [address] Mar, Lumbar neuritis M54.16 and M orbid obesity E66.01 [facility] [address] [place] [id number] [address] [place] [phone] Mar, [facility] [address] [place] [id number] [address] [place] [phone] Mar, [facility] [address] [place] [id number] [address] [place] [address] Mar, Lumbago with sciatica, unspe cified side M54.40 [facility] [address] [id number] [address] [place] [phone] Mar, Morbid obesity E66.01 ; Gabe lara R05 ; 2+ pitting edema R60.9 and Controlled type 2 diabetes mellitus without complication, without long-term current use of insulin E11.9 [facility] [address] [id number] [address] [place] [phone] Feb, [facility] [address] [id number] [address] [place] [phone] Feb, Lumbago with sciatica, unspe cified side M54.40 [facility] [address] [id number] [address] [place] [phone] Feb, [facility] [address] [id number] [address] [place] [phone] Feb, Controlled type 2 diabetes m ellitus without complication, without long-term current use of insulin E11.9 and Morbid obesity E66.01 [facility] [address] [id number] [address] [place] [address] January, Deformity of left foot M21.9 62 [facility] [address] [id number] [address] [place] [phone] January, [facility] [address] [id number] [address] [place] [phone] January, Lumbago with sciatica, unspe cified side M54.40 [facility] [address] [id number] [address] [place] [address] January, [facility] [address] [id number] [address] [place] [address] January, Lumbago with sciatica, unspe cified side M54.40 [facility] [address] [id number] [address] [place] [phone] January, [facility] [address] [facility] [id number] [address] [place] [address] January, Acute right-sided thoracic b ack pain M54.6 [facility] [address] [place] [id number] [address] [place] [address] January, Acute right-sided thoracic b ack pain M54.6 [facility] [address] [phone] January, Chest pain, unspecified type R07.9 ; Morbid obesity E66.01 and Scabies B86 [facility] [address] [place] [id number] [address] [place] [address] Dec, Lumbago with sciatica, unspe cified side M54.40 [place] [id number] [id number] Dec, Toenail fungus B35.1 [facility] [address] [place] [id number] [address] [place] [phone] Dec, Toenail fungus B35.1 [facility] [address] [address] Dec, Acute right-sided thoracic b ack pain M54.6 [place] [address] [place] [id number] [address] [place] [phone] Dec, Lumbago with sciatica, unspe cified side M54.40 [facility] [address] [place] [id number] [address] [place] [id number] Nov, Hammer toe of left foot M20. 42 ; Deformity of left foot M21.962 and Type 2 diabetes mellitus with diabetic neuropathy, without long-term current use of insulin E11.40 [facility] [address] [facility] [id number] [address] [place] [id number] Nov, Acute right-sided thoracic b ack pain M54.6 ; Morbid obesity E66.01 and Rt flank pain R10.9 [place] [address] [facility] [id number] [address] [place] [address] Nov, Lumbago with sciatica, unspe cified side M54.40 [place] [address] [place] [id number] [address] [place] [phone] Oct, Lumbago with sciatica, unspe cified side M54.40 [place] [address] [place] [id number] [place] [address] Sep, Lumbago with sciatica, unspe cified side M54.40 [place] [address] [place] [id number] [address] [place] [phone] Sep, [place] [address] [place] [id number] [place] [phone] Sep, BMI 40.0-44.9, adult Z68.41 ; Lumbago with sciatica, left side M54.42 ; Lumbago with sciatica, right side M54.41 and Other chronic pain G89.29 [place] [address] [place] [id number] [address] [place] [phone] Aug, Lumbago with sciatica, unspe cified side M54.40 [place] [address] [place] [id number] [address] [place] [phone] Aug, Type 2 diabetes mellitus wit h diabetic neuropathy, without long- term current use of insulin E11.40 ; Hammer toe of left foot M20.42 ; Hypertension, benign I10 and Frequent headaches R51 [place] [address] [place] [id number] [address] [place] [address] Jul, Lumbago with sciatica, unspe cified side M54.40 [place] [address] [place] [id number] [address] [place] [phone] Jul, [place] [address] [place] [id number] [address] [place] [id number] Jul, Essential hypertension I10 a nd Controlled type 2 diabetes mellitus without complication, without long-term current use of insulin E11.9 [facility] [address] [facility] [id number] [address] [place] [address] Jul, Essential hypertension I10 ; Controlled type 2 diabetes mellitus without complication, without long-term current use of insulin E11.9 and BMI 40.0-44.9, adult Z68.41 [facility] [address] [facility] [id number] [address] [place] [phone] Jul, Dysfunction of left eustachi an tube H69.82 [facility] [address] [id number] [address] [place] [address] Jul, Lumbago with sciatica, unspe cified side M54.40 [facility] [address] [id number] [address] [place] [address] [id number] Jun, Dental examination Z01.20 [facility] [address] [facility] [id number] [address] [place] [phone] Jun, Lumbago with sciatica, unspe cified side M54.40 and Encounter for immunization Z23 [facility] [address] [facility] [id number] [address] [place] [phone] Jun, Dysfunction of left eustachi an tube H69.82 [place] [id number] [facility] [id number] [place] [address] [id number] Jun, Dental examination Z01.20 [facility] [address] [id number] [address] [place] [phone] Jun, Other chronic pain G89.29 [facility] [address] [id number] [address] [place] [address] [id number] Jun, Dental examination Z01.20 [facility] [address] [id number] [address] [place] [phone] Jun, [facility] [address] [id number] [address] [place] [address] Jun, Bronchitis J40 ; Dysfunction of left eustachian tube H69.82 and BMI 45.0-49.9, adult Z68.42 [facility] [address] [place] [id number] [address] [place] [id number] Jun, Lumbago with sciatica, unspe cified side M54.40 [facility] [address] [place] [id number] [address] [place] [address] May, Type 2 diabetes mellitus wit h diabetic neuropathy, without long- term current use of insulin E11.40 and Hypertension, benign I10 [facility] [address] [place] [id number] [address] [place] [phone] May, Lumbago with sciatica, unspe cified side M54.40 [facility] [address] [place] [id number] [address] [place] [phone] Apr, [facility] [address] [id number] Apr, Controlled type 2 diabetes m ellitus without complication, without long-term current use of insulin E11.9 ; Insect bite (nonvenomous), right ankle, initial encounter S90.561A ; Local infection of the skin and subcutaneous tissue, unspecified L08.9 ; Acute swimmer''s ear of left side H60.332 and BMI 45.0-49.9, adult Z68.42 [place] [address] [place] [id number] [address] [place] [id number] Apr, Lumbago with sciatica, unspe cified side M54.40 [facility] [address] [place] [id number] [address] [place] [phone] Mar, [place] [address] [place] [id number] [place] [phone] Mar, Lumbago with sciatica, unspe cified side M54.40 [facility] [address] [place] [id number] [address] [place] [phone] Feb, Lumbago with sciatica, unspe cified side M54.40 [facility] [address] [facility] [id number] [address] [place] [phone] Feb, BMI 45.0-49.9, adult Z68.42 and Obstructive sleep apnea syndrome G47.33 [place] [address] [place] [id number] [address] [place] [phone] January, Lumbar neuritis M54.16 [place] [address] [facility] [id number] [address] [place] [phone] January, Lumbago with sciatica, unspe cified side M54.40 [place] [address] [place] [id number] [place] [phone] Dec, Controlled type 2 diabetes m maribell without complication, without long-term current use of insulin E11.9 ; Erectile dysfunction due to diseases classified elsewhere N52.1 and Mood disorder F39 [place] [address] [place] [id number] [address] [place] [address] Dec, Lumbago with sciatica, unspe cified side M54.40 [place] [address] [place] [id number] [address] [place] [phone] Dec, Obstructive sleep apnea synd luis G47.33 [place] [address] [place] [id number] [address] [place] [phone] Nov, Lumbago with sciatica, unspe cified side M54.40 ; Hypertension, benign I10 and Mood disorder F39 [facility] [address] [place] [id number] [address] [place] [phone] Nov, Other chronic pain G89.29 [facility] [address] [facility] [id number] [address] [place] [id number] Nov, Lumbago with sciatica, unspe cified side M54.40 [facility] [address] [id number] [address] [place] [address] [id number] Nov, Dental examination Z01.20 [facility] [address] [facility] [id number] [address] [place] [phone] Oct, [facility] [address] [facility] [id number] [address] [place] [phone] Oct, Lumbago with sciatica, unspe cified side M54.40 [facility] [address] [facility] [id number] [address] [place] [phone] Oct, Lumbago with sciatica, unspe cified side M54.40 [facility] [address] [facility] [id number] [address] [place] [phone] Oct, [facility] [address] [facility] [id number] [address] [place] [id number] Oct, [facility] [address] [facility] [id number] [address] [place] [id number] Oct, Dental examination Z01.20 [facility] [address] [facility] [id number] [address] [place] [phone] Oct, [facility] [address] [facility] [id number] [address] [place] [address] Oct, Pain in right knee M25.561 [facility] [address] [facility] [id number] [address] [place] [phone] Sep, [facility] [address] [facility] [id number] [address] [place] [phone] Sep, Other chronic pain G89.29 [facility] [address] [facility] [id number] [address] [place] [phone] Sep, Lumbago with sciatica, unspe cified side M54.40 [facility] [address] [facility] [id number] [address] [place] [address] Sep, [facility] [address] [facility] [id number] [address] [place] [id number] Sep, Viral URI J06.9 and BMI 45.0 -49.9, adult Z68.42 [facility] [address] [facility] [id number] [address] [place] [address] Aug, Foreign body hand S60.559A a nd BMI 45.0-49.9, adult Z68.42 [facility] [address] [facility] [id number] [address] [place] [phone] Aug, [facility] [address] [place] [id number] [address] [place] [phone] Aug, Lumbago with sciatica, unspe cified side M54.40 [facility] [address] [facility] [id number] [address] [place] [phone] Aug, Vertigo R42 ; Dysfunction of both eustachian tubes H69.83 ; Low back pain M54.5 and Other chronic pain G89.29 [facility] [address] [facility] [id number] [address] [place] [phone] Aug, Dizziness R42 and Acute bila teral otitis media H66.93 [facility] [address] [facility] [id number] [address] [place] [phone] Aug, Lumbago with sciatica, unspe cified side M54.40 [facility] [address] [facility] [id number] [address] [place] [address] [id number] Jul, Dental examination Z01.20 [facility] [address] [place] [id number] [address] [place] [phone] Jul, [facility] [address] [facility] [id number] [address] [place] [id number] Jul, [facility] [address] [facility] [id number] [address] [place] [phone] Jul, Dysfunction of both eustachi an tubes H69.83 [facility] [address] [facility] [id number] [address] [place] [phone] 07 Jul, 2017 Controlled type 2 diabetes m taraitus without complication, without long-term current use of insulin E11.9 [facility] [address] [id number] [address] [place] [id number] Jul, Controlled type 2 diabetes m ellitus without complication, without long-term current use of insulin E11.9 [facility] [address] [id number] [address] [place] [phone] Jul, Dizziness R42 and BMI 40.0-4 4.9, adult Z68.41 [facility] [address] [facility] [id number] [address] [place] [id number] Jul, Controlled type 2 diabetes m ellitus without complication, without long-term current use of insulin E11.9 [facility] [address] [facility] [id number] [address] [place] [phone] Jul, Lumbago with sciatica, unspe cified side M54.40 [facility] [address] [id number] [place] [address] [id number] Jul, Dental examination Z01.20 [facility] [address] [id number] [address] [place] [id number] Jun, [facility] [address] [id number] [place] [address] [id number] Jun, Dental examination Z01.20 [facility] [address] [facility] [id number] [address] [place] [phone] Jun, Controlled type 2 diabetes m ellitus without complication, without long-term current use of insulin E11.9 [facility] [address] [id number] [address] [place] [phone] Jun, Lumbago with sciatica, unspe cified side M54.40 [facility] [address] [place] [id number] [place] [address] [id number] May, Dental examination Z01.20 [facility] [address] [id number] [address] [place] [phone] May, Controlled type 2 diabetes m ellitus without complication, without long-term current use of insulin E11.9 [facility] [address] [id number] [address] [place] [address] [id number] 19 May, 2017 Dental examination Z01.20 [facility] [address] [facility] [id number] [address] [place] [id number] 18 May, 2017 Bronchitis J40 ; Dry mouth R 68.2 ; Non morbid obesity E66.9 and Controlled type 2 diabetes mellitus without complication, without long-term current use of insulin E11.9 [facility] [address] [facility] [id number] [address] [place] [phone] 16 May, 2017 Encounter for immunization Z 23 [place] [address] [facility] [id number] [place] [phone] 07 May, 2017 Lumbago with sciatica, unspe cified side M54.40 [facility] [address] [facility] [id number] [address] [place] [phone] 05 May, 2017 [facility] [address] [id number] [place] [id number] Apr, Dental examination Z01.20 [facility] [address] [id number] [address] [place] [id number] Apr, Lumbago with sciatica, unspe cified side M54.40 [facility] [address] [facility] [place] [id number] [address] [place] [phone] Mar, Lumbago with sciatica, left side M54.42 [facility] [address] [facility] [place] [id number] [address] [place] [phone] Mar, [facility] [address] [facility] [place] [id number] [address] [place] [phone] Mar, Lumbar neuritis M54.16 [facility] [address] [facility] [id number] [address] [place] [id number] Mar, [facility] [address] [id number] [address] [place] [id number] Mar, Dental examination Z01.20 [place] [address] [facility] [id number] [address] [place] [phone] Mar, MELE (obstructive sleep apnea ) G47.33 ; Neuropathy involving both lower extremities G57.93 and Frequent headaches R51 [place] [address] [address] [facility] [place] [id number] [address] [place] [phone] Mar, Lumbago with sciatica, unspe cified side M54.40 [place] [address] [place] [id number] [address] [place] [phone] Feb, Lumbago with sciatica, unspe cified side M54.40 and Controlled type 2 diabetes mellitus without complication, without long-term current use of insulin E11.9 [place] [address] [place] [id number] [place] [phone] January, Hypertension, benign I10 and Bilateral low back pain with sciatica, sciatica laterality unspecified M54.40 [place] [address] [place] [id number] [place] [id number] January, Hypertension, benign I10 ; L umbago with sciatica, unspecified side M54.40 ; Other chronic pain G89.29 and Controlled type 2 diabetes mellitus without complication, without long-term current use of insulin E11.9 [place] [address] [place] [id number] [address] [place] [phone] January, Lumbar neuritis M54.16 [place] [address] [place] [id number] [address] [place] [phone] January, [place] [address] [place] [id number] [address] [place] [phone] Dec, Lumbago with sciatica, right side M54.41 and Lumbar neuritis M54.16 [place] [address] [place] [id number] [address] [place] [phone] Dec, Lumbar neuritis M54.16 [place] [address] [place] [id number] [address] [place] [id number] Dec, Lumbar neuritis M54.16 [place] [address] [place] [id number] [address] [place] [phone] Nov, Lumbar neuritis M54.16 ; Lum bago with sciatica, right side M54.41 ; Controlled type 2 diabetes mellitus without complication, without long-term current use of insulin E11.9 and Rash and nonspecific skin eruption R21 [place] [address] [place] [id number] [address] [place] [phone] Nov, Lumbar neuritis M54.16 and P derickpeter miroslava L23.7 [place] [address] [place] [id number] [address] [place] [phone] Oct, Lumbar neuritis M54.16 ; Cou ghing R05 and Mood disorder F39 [place] [address] [place] [id number] [address] [place] [id number] Sep, Lumbago with sciatica, right side M54.41 [place] [address] [place] [id number] [address] [place] [id number] Sep, Adjustment disorder with dis turbance of emotion F43.29 and Pain management R52 [place] [address] [place] [id number] [address] [place] [phone] Sep, [place] [address] [place] [id number] [address] [place] [phone] Sep, [place] [address] [place] [id number] [address] [place] [phone] Sep, Controlled type 2 diabetes evens reyna without complication, without long-term current use of insulin E11.9 and Lumbago with sciatica, unspecified side M54.40 [place] [address] [place] [id number] [address] [place] [id number] Aug, Controlled type 2 diabetes evens reyna without complication, without long-term current use of insulin E11.9 ; Pain in right knee M25.561 ; Pain in left knee M25.562 ; Other chronic pain G89.29 ; Lumbago with sciatica, right side M54.41 ; Neck pain M54.2 and Encounter for immunization Z23 [facility] [address] [id number] [address] [place] [phone] Jul, [facility] [address] [id number] [address] [place] [phone] Jul, Controlled type 2 diabetes m maribell without complication, without long-term current use of insulin E11.9 [facility] [address] [id number] [address] [place] [id number] Jul, [facility] [address] [id number] [address] [place] [phone] Jul, [facility] [address] [id number] [address] [place] [phone] Jul, Lumbago with sciatica, left side M54.42 ; Lumbago with sciatica, right side M54.41 and Other chronic pain G89.29 [facility] [address] [id number] [address] [place] [phone] Jul, [facility] [address] [id number] [address] [place] [phone] Jul, [facility] [address] [id number] [address] [place] [address] Jun, [facility] [address] [id number] [address] [place] [phone] Jun, Lumbago with sciatica, right side M54.41 and Other chronic pain G89.29 [facility] [address] [id number] [address] [place] [address] Jun, Cervicalgia M54.2 ; Lumbago with sciatica, unspecified side M54.40 and Other chronic pain G89.29 [facility] [address] [id number] [address] [place] [id number] 15 May, 2016 Pain in right knee M25.561 ; Pain in left knee M25.562 and Other chronic pain G89.29 [facility] [address] [id number] [address] [place] [phone] May, [facility] [address] [id number] [address] [place] [phone] Apr, Other chronic pain G89.29 an d Pain in right knee M25.561 [facility] [address] [id number] [address] [place] [phone] Apr, Pain in right knee M25.561 [facility] [address] [id number] [address] [place] [id number] Mar, [facility] [address] [id number] [address] [place] [phone] Mar, Mood disorder F39 and Contro lled type 2 diabetes mellitus without complication, without long-term current use of insulin E11.9 [facility] [address] [id number] [address] [place] [address] Mar, Pain in right knee M25.561 ; Pain in left knee M25.562 ; Other chronic pain G89.29 ; Obstructive sleep apnea syndrome G47.33 ; Mood disorder F39 and Controlled type 2 diabetes mellitus without complication, without long- term current use of insulin E11.9 [facility] [address] [id number] [address] [place] [phone] Mar, [facility] [address] [id number] [address] [place] [id number] Feb, Dental examination Z01.20 [facility] [address] [id number] [address] [place] [phone] Feb, [facility] [address] [id number] [address] [place] [phone] Feb, Osteoarthritis of right knee , unspecified osteoarthritis type M17.9 [facility] [address] [id number] [address] [place] [address] January, [facility] [address] [id number] [address] [place] [address] [id number] January, Dental examination Z01.20 [facility] [address] [id number] [address] [place] [id number] January, [facility] [address] [id number] [address] [place] [id number] January, Dental examination Z01.20 an d Caries K02.9 [facility] [address] [id number] [address] [place] [phone] Dec, Encounter for other preproce dural examination Z01.818 [facility] [address] [id number] [address] [place] [phone] Dec, [facility] [address] [id number] [address] [place] [phone] Dec, Knee pain M25.569 [facility] [address] [id number] [address] [place] [phone] Dec, Pain in right knee M25.561 [facility] [address] [id number] [address] [place] [phone] Dec, [facility] [address] [id number] [address] [place] [phone] Dec, [facility] [address] [id number] [address] [place] [phone] Dec, Encounter for immunization Z 23 [facility] [address] [id number] [address] [place] [phone] Dec, [facility] [address] [id number] [address] [place] [phone] Dec, [facility] [address] [id number] [address] [place] [phone] Nov, [facility] [address] [id number] [address] [place] [id number] Nov, Hypertension, benign I10 ; C ervicalgia M54.2 ; Pain in right knee M25.561 and Pain in left knee M25.562 [place] [id number] [facility] [place] [id number] [address] [place] [id number] Oct, [facility] [address] [facility] [place] [id number] [address] [place] [phone] Oct, [facility] [address] [facility] [place] [id number] [address] [place] [phone] Oct, Osteoarthritis of both knees M17.0 [place] [address] [address] [facility] [place] [id number] [address] [place] [phone] Oct, [place] [address] [facility] [place] [id number] [address] [place] [phone] Oct, Low back pain M54.5 [place] [address] [facility] [place] [id number] [address] [place] [phone] Oct, Low back pain M54.5 ; Sciati ca, unspecified side M54.30 ; Pain in right knee M25.561 ; Pain in left knee M25.562 ; Pain in right shoulder M25.511 and Pain in left shoulder M25.512 [place] [address] [facility] [place] [id number] [address] [place] [id number] Oct, [place] [address] [facility] [place] [id number] [address] [place] [phone] Sep, Pain in right hip M25.551 [place] [address] [facility] [place] [id number] [address] [place] [phone] Sep, Acute upper respiratory infe ction, unspecified J06.9 [place] [address] [facility] [place] [id number] [address] [place] [phone] Aug, Acute upper respiratory infe ction, unspecified J06.9 and Other viral agents as the cause of diseases classified elsewhere B97.89 [place] [address] [address] [facility] [place] [id number] [address] [place] [phone] Jul, Arthritis M19.90 [facility] [address] [id number] [address] [place] [phone] Jun, Arthritis M19.90 ; Pain in r ight hip M25.551 ; Pain in left hip M25.552 ; Bilateral low back pain with sciatica, sciatica laterality unspecified M54.40 ; Neck pain M54.2 ; Upper back pain M54.9 and Knee pain, unspecified laterality M25.569 [facility] [address] [id number] [address] [place] [phone] May, Osteoarthritis of both knees 715.96 [facility] [address] [id number] [address] [place] [phone] May, Rash 782.1 [facility] [address] [id number] [address] [place] [id number] Apr, Lumbar strain 847.2 [facility] [address] [id number] [address] [place] [phone] Apr, Rash 782.1 [facility] [address] [id number] [address] [place] [id number] Mar, Rash 782.1 [facility] [address] [facility] [place] [id number] [address] [place] [phone] Feb, Rash 782.1 ; Hemorrhoids 455 .6 and Constipation 564.00 [facility] [address] [id number] [address] [place] [address] Feb, Osteoarthritis of both knees 715.96 [facility] [address] [id number] [address] [place] [phone] January, [facility] [address] [id number] [address] [place] [phone] Dec, [facility] [address] [facility] [place] [id number] [address] [place] [phone] Dec, [facility] [address] [id number] [address] [place] [phone] 13 Dec, 2014 [facility] [address] [id number] [address] [place] [address], [place] [id number] 18 Nov, 2014 [facility] [address] [id number] [address] [place] [address], [place] [id number] 18 Nov, 2014 [facility] [address] [id number] [address] [place] [address], [place] [id number] 18 Nov, 2014 [facility] [address] [id number] [address] [place] [address], [place] [id number] 18 Nov, 2014 [facility] [address] [id number] [address] [place] [address], [place] [id number] Nov, [facility] [address] [id number] [address] [place] [address], [place] [id number] Nov, [facility] [address] [id number] [address] [place] [address], [place] [id number] Oct, [facility] [address] [id number] [address] [place] [address], [place] [id number] Oct, [facility] [address] [id number] [address] [place] [address], [place] [id number] Oct, 2014 [facility] [address] [id number] [address] [place] [address], [place] [id number] Oct, [facility] [address] [id number] [address] [place] [address], [place] [id number] Oct, 2014 [facility] [address] [id number] [address] [place] [address], [place] [id number] Oct, 2014 [facility] [address] [id number] [address] [place] [address], [place] [id number] Oct, 2014 [facility] [address] [id number] [address] [place] [address], [place] [id number] Oct, 2014 [facility] [address] [id number] [address] [place] [address], [place] [id number] Oct, [facility] [address] [id number] [address] [place] [address], [place] [id number] Oct, [facility] [address] [id number] [address] [place] [address], [place] [id number] Oct, [facility] [address] [id number] [address] [place] [address], [place] [id number] Sep, [facility] [address] [id number] [address] [place] [address], [place] [id number] Sep, [facility] [address] [id number] [address] [place] [address], [place] [id number] Sep, [facility] [address] [id number] [address] [place] [address], [place] [id number] Sep, [facility] [address] [id number] [address] [place] [address], [place] [id number] Sep, [facility] [address] [id number] [address] [place] [address], [place] [id number] Sep, [facility] [address] [id number] [address] [place] [address], [place] [id number] Aug, [facility] [address] [id number] [address] [place] [address], [place] [id number] Aug, [facility] [address] [id number] [address] [place] [address], [place] [id number] Aug, [facility] [address] [id number] [address] [place] [address], [place] [id number] Aug, [facility] [address] [id number] [address] [place] [address], [place] [id number] Aug, [facility] [address] [id number] [address] [place] [address], [place] [id number] Aug, [facility] [address] [id number] [address] [place] [address], [place] [id number] Aug, [facility] [address] [id number] [address] [place] [address], [place] [id number] Aug, [facility] [address] [id number] [address] [place] [address], [place] [id number] Aug, [facility] [address] [id number] [address] [place] [address], [place] [id number] Aug, [facility] [address] [id number] [address] [place] [address], [place] [id number] Jul, [facility] [address] [id number] [address] [place] [address], [place] [id number] Jul, [facility] [address] [id number] [address] [place] [address], [place] [id number] Jul, [facility] [address] [id number] [address] [place] [address], [place] [id number] Jul, [facility] [address] [id number] [address] [place] [address], [place] [id number] Jun, [facility] [address] [id number] [address] [place] [address], [place] [id number] Jun, [facility] [address] [id number] [address] [place] [address], [place] [id number] Jun, [facility] [address] [id number] [address] [place] [address], [place] [id number] Jun, [facility] [address] [id number] [address] [place] [address], [place] [id number] Jun, [facility] [address] [id number] [address] [place] [address], [place] [id number] Jun, [facility] [address] [id number] [address] [place] [address], [place] [id number] Jun, [facility] [address] [id number] [address] [place] [address], [place] [id number] Jun, [facility] [address] [id number] [address] [place] [address], [place] [id number] May, [facility] [address] [id number] [address] [id number] 24 May, 2013 [facility] [address] [id number] [facility] [id number] 19 May, 2014 [facility] [address] [id number] [facility] [id number] 19 May, 2013 [facility] [address] [id number] [address] [place] [address], [place] [id number] 15 May, 2014 [facility] [address] [id number] [address] [place] [address], [place] [id number] 15 May, 2014 [facility] [address] [id number] [address] [place] [address], [place] [id number] 15 May, 2014 [facility] [address] [id number] [address] [place] [address], [place] [id number] May, [facility] [address] [id number] [address] [place] [address], [place] [id number] Apr, [facility] [address] [id number] [address] [place] [address], [place] [id number] Apr, [facility] [address] [id number] [address] [place] [address], [place] [id number] Apr, [facility] [address] [id number] [address] [place] [address], [place] [id number] Apr, [facility] [address] [id number] [address] [place] [address], [place] [id number] Apr, [facility] [address] [id number] [address] [place] [address], [place] [id number] Apr, [facility] [address] [id number] [address] [place] [address], [place] [id number] Apr, [facility] [address] [id number] [address] [place] [address], [place] [id number] Apr, [facility] [address] [id number] [address] [place] [address], [place] [id number] Apr, [facility] [address] [id number] [address] [place] [address], [place] [id number] Apr, [facility] [address] [id number] [address] [place] [address], [place] [id number] Apr, [facility] [address] [id number] [address] [place] [address], [place] [id number] Apr, [facility] [address] [id number] [address] [place] [address], [place] [id number] Mar, [facility] [address] [id number] [address] [place] [address], [place] [id number] Mar, [facility] [address] [id number] [address] [place] [address], [place] [id number] Mar, [facility] [address] [id number] [address] [place] [address], [place] [id number] Mar, [facility] [address] [id number] [address] [place] [address], [place] [id number] Mar, [facility] [address] [id number] [address] [place] [address], [place] [id number] Mar, [facility] [address] [id number] [address] [place] [address], [place] [id number] Feb, [facility] [address] [id number] [address] [place] [address], [place] [id number] Feb, [facility] [address] [id number] [address] [place] [address], [place] [id number] Feb, [facility] [address] [id number] [address] [place] [address], [place] [id number] Feb, [facility] [address] [id number] [address] [place] [address], [place] [id number] Feb, [facility] [address] [id number] [address] [place] [address], [place] [id number] Feb, [facility] [address] [id number] [facility] [place] [id number] Feb, [facility] [address] [id number] [address] [place] [address], [place] [id number] Feb, [facility] [address] [id number] [address] [place] [address], [place] [id number] Feb, [facility] [address] [id number] [address] [place] [address], [place] [id number] Feb, [facility] [address] [id number] [address] [place] [address], [place] [id number] Feb, [facility] [address] [id number] [address] [place] [address], [place] [id number] Feb, [facility] [address] [id number] [address] [place] [address], [place] [id number] Feb, [facility] [address] [id number] [address] [place] [address], [place] [id number] Feb, [facility] [address] [id number] [address] [place] [address], [place] [id number] January, [facility] [address] [id number] [address] [place] [address], [place] [id number] January, [facility] [address] [id number] [address] [place] [address], [place] [id number] January, [facility] [address] [id number] [address] [place] [address], [place] [id number] January, [facility] [address] [id number] [address] [place] [address], [place] [id number] January, [facility] [address] [id number] [address] [place] [address], [place] [id number] January, [facility] [address] [id number] [address] [place] [address], [place] [id number] Dec, [facility] [address] [id number] [address] [place] [address], [place] [id number] Dec, [facility] [address] [id number] [address] [place] [address], [place] [id number] Dec, [facility] [address] [id number] [address] [place] [address], [place] [id number] Dec, [facility] [address] [id number] [address] [place] [address], [place] [id number] Dec, [facility] [address] [id number] [address] [place] [address], [place] [id number] Dec, [facility] [address] [id number] [address] [place] [address], [place] [id number] Dec, [facility] [address] [id number] [address] [place] [address], [place] [id number] Dec, [facility] [address] [id number] [address] [place] [address], [place] [id number] Nov, [facility] [address] [id number] [address] [place] [address], [place] [id number] Nov, [facility] [address] [id number] [address] [place] [address], [place] [id number] Nov, [facility] [address] [id number] [address] [place] [address], [place] [id number] Nov, [facility] [address] [id number] [address] [place] [address], [place] [id number] Nov, [facility] [address] [id number] [address] [place] [address], [place] [id number] Nov, [facility] [address] [id number] [address] [place] [address], [place] [id number] Nov, [facility] [address] [id number] [address] [place] [address], [place] [id number] Nov, [facility] [address] [id number] [address] [place] [address], [place] [id number] Oct, [facility] [address] [id number] [address] [place] [address], [place] [id number] Oct, [facility] [address] [id number] [address] [place] [address], [place] [id number] Oct, [facility] [address] [id number] [address] [place] [address], [place] [id number] Oct, [facility] [address] [id number] [address] [place] [address], [place] [id number] Oct, [facility] [address] [id number] [address] [place] [address], [place] [id number] Oct, [facility] [address] [id number] [address] [place] [address], [place] [id number] Oct, [facility] [address] [id number] [address] [place] [address], [place] [id number] Oct, [facility] [address] [id number] [address] [place] [address], [place] [id number] Oct, [facility] [address] [id number] [address] [place] [address], [place] [id number] Oct, [facility] [address] [id number] [address] [place] [address], [place] [id number] Sep, [facility] [address] [id number] [address] [place] [address], [place] [id number] Sep, [facility] [address] [id number] [address] [place] [address], [place] [id number] Sep, [facility] [address] [id number] [address] [place] [address], [place] [id number] Sep, [facility] [address] [id number] [address] [place] [address], [place] [id number] Sep, [facility] [address] [id number] [address] [place] [address], [place] [id number] Sep, [facility] [address] [id number] [address] [place] [address], [place] [id number] Aug, [facility] [address] [id number] [address] [place] [address], [place] [id number] Aug, [facility] [address] [id number] [address] [place] [address], [place] [id number] Aug, [facility] [address] [id number] [address] [place] [address], [place] [id number] Aug, [facility] [address] [id number] [address] [place] [address], [place] [id number] Aug, [facility] [address] [id number] [address] [place] [address], [place] [id number] Aug, [facility] [address] [id number] [address] [place] [address], [place] [id number] Aug, [facility] [address] [id number] [address] [place] [address], [place] [id number] Aug, [facility] [address] [id number] [address] [place] [address], [place] [id number] Jul, [facility] [address] [id number] [address] [place] [address], [place] [id number] Jul, [facility] [address] [id number] [address] [place] [address], [place] [id number] Jul, [facility] [address] [id number] [address] [place] [address], [place] [id number] Jul, [facility] [address] [id number] [address] [place] [id number] Jul, [facility] [address] [id number] [address] [place] [address], [place] [id number] Jul, [facility] [address] [id number] [address] [place] [address], [place] [id number] Jun, [facility] [address] [id number] [address] [place] [address], [place] [id number] Jun, [facility] [address] [id number] [address] [place] [address] [place] [id number] Jun, [facility] [address] [id number] [address] [place] [address], [place] [id number] 24 May, 2013 [facility] [address] [id number] [address] [place] [address], [place] [id number] May, [facility] [address] [id number] [address] [place] [address], [place] [id number] May, [facility] [address] [id number] [address] [place] [address], [place] [id number] Apr, [facility] [address] [id number] [address] [place] [address], [place] [id number] Apr, [facility] [address] [id number] [address] [place] [address], [place] [id number] Apr, [facility] [address] [id number] [address] [place] [address], [place] [id number] Apr, [facility] [address] [id number] [address] [place] [address], [place] [id number] Mar, [facility] [address] [id number] [address] [place] [address], [place] [id number] Mar, [facility] [address] [id number] [address] [place] [address], [place] [id number] Mar, [facility] [address] [id number] [address] [place] [address], [place] [id number] Mar, [facility] [address] [id number] [address] [place] [address], [place] [id number] Feb, [facility] [address] [id number] [address] [place] [address], [place] [id number] Feb, [facility] [address] [id number] [address] [place] [address], [place] [id number] Feb, [facility] [address] [id number] [address] [place] [address], [place] [id number] Feb, [facility] [address] [id number] [address] [place] [address], [place] [id number] January, [facility] [address] [id number] [address] [place] [address], [place] [id number] January, [facility] [address] [id number] [address] [place] [address], [place] [id number] January, [facility] [address] [id number] [address] [place] [address], [place] [id number] Nov, [facility] [address] [id number] [address] [place] [address], [place] [id number] Nov, [facility] [address] [id number] [address] [place] [address], [place] [id number] Oct, [facility] [address] [id number] [address] [place] [address], [place] [id number] Oct, [facility] [address] [id number] [address] [place] [address], [place] [id number] Oct, [facility] [address] [id number] [address] [place] [address], [place] [id number] Oct, [facility] [address] [id number] [address] [place] [address], [place] [id number] Sep, [facility] [address] [id number] [address] [place] [address], [place] [id number] Sep, [facility] [address] [id number] [address] [place] [address], [place] [id number] Sep, [facility] [address] [id number] [address] [place] [address], [place] [id number] Aug, [facility] [address] [id number] [address] [place] [address], [place] [id number] Aug, [facility] [address] [id number] [address] [place] [address], [place] [id number] Aug, [facility] [address] [id number] [address] [place] [address], [place] [id number] Aug, [facility] [address] [id number] [address] [place] [address], [place] [id number] Aug, [facility] [address] [id number] [address] [place] [address], [place] [id number] Aug, [facility] [address] [id number] [address] [place] [address], [place] [id number] Jul, [facility] [address] [id number] [address] [place] [address], [place] [id number] Jul, [facility] [address] [id number] [address] [place] [address], [place] [id number] Jun, [facility] [address] [id number] [address] [place] [address], [place] [id number] Jun, [facility] [address] [id number] [address] [place] [address], [place] [id number] Jun, [facility] [address] [id number] [address] [place] [address], [place] [id number] Apr, [facility] [address] [id number] [address] [place] [address], [place] [id number] Apr, [facility] [address] [id number] [address] [place] [address], [place] [id number] Mar, [facility] [address] [id number] [address] [place] [address], [place] [id number] Mar, [facility] [address] [id number] [address] [place] [id number] Mar, [facility] [address] [id number] [address] [place] [address], [place] [id number] Mar, [facility] [address] [id number] [address] [place] [address], [place] [id number] Feb, [facility] [address] [id number] [address] [place] [address], [place] [id number] Feb, [facility] [address] [id number] [address] [place] [address], [place] [id number] Feb, [facility] [address] [id number] [address] [place] [address], [place] [id number] January, [facility] [address] [id number] [address] [place] [address], [place] [id number] January, [facility] [address] [id number] [address] [place] [address], [place] [id number] January, [facility] [address] [id number] [address] [place] [address], [place] [id number] January, [facility] [address] [id number] [address] [place] [address], [place] [id number] Dec, [facility] [address] [id number] [address] [place] [address], [place] [id number] Dec, [facility] [address] [id number] [address] [place] [address], [place] [id number] Nov, [facility] [address] [id number] [address] [place] [address], [place] [id number] Nov, [facility] [address] [id number] [address] [place] [address], [place] [id number] 16 Oct, 2011 [facility] [address] [id number] [address] [place] [address], [place] [id number] Oct, [facility] [address] [id number] [address] [place] [address], [place] [id number] Sep, [facility] [address] [id number] [address] [place] [address], [place] [id number] Sep, [facility] [address] [id number] [address] [place] [address], [place] [id number] Sep, [facility] [address] [id number] [address] [place] [address], [place] [id number] Sep, [facility] [address] [id number] [address] [place] [address], [place] [id number] Aug, [facility] [address] [id number] [address] [place] [id number] 16 Aug, 2011 [facility] [address] [id number] [address] [place] [id number] Aug, [facility] [address] [id number] [address] [place] [id number] Jul, [facility] [address] [id number] [address] [place] [id number] Aug, [facility] [address] [id number] [address] [place] [id number] Aug, [facility] [address] [id number] [address] [place] [id number] Aug, [facility] [address] [id number] [address] [place] [id number] Aug, [facility] [address] [id number] [address] [place] [id number] Jul, [facility] [address] [id number] [address] [place] [id number] Jul, [facility] [address] [id number] [address] [place] [id number] Jul, [facility] [address] [id number] [address] [place] [id number] Jun, [facility] [address] [id number] [address] [place] [id number] Jun, [facility] [address] [id number] [address] [place] [id number] Jun, [facility] [address] [id number] [address] [place] [id number] Apr, [facility] [address] [id number] [address] [place] [id number] Mar, IMMUNIZATIONS No Known Immunizations SOCIAL HISTORY [...]
--- OUTSIDE RECORDS SUMMARY | 2020-03-18 15:00 | XMS REPORT ---
Author Author George WAYNE Organization [facility] Address [address] [place] [address] Care Team Providers Care Tobacco Blender Name Role Phone REYNA WAYNE Unavailable PROBLEMS Type Condition ICD9-CM Code BIM60-JR Code Onset Dates Condition S tatus SNOMED Code Problem Hypertension, benign I10 Active 14392196 Problem Other chronic pain G89.29 Active 8 2336545 Problem Lumbago with sciatica, unspecified side M54.40 Active 692876887 Problem Controlled type 2 diabetes m ellitus without complication, without long- term current use of insulin E11.9 Active 104171538 Problem Lumbago with sciatica, right side M54.41 Active 096085912 Problem Adjustment disorder with disturbance of emotion F4 3.29 Active 81615742 Problem MELE (obstructive sleep apnea) G47.33 Active 82952764 Problem Non morbid obesity E66.9 Active 4 79380500 Problem Hammer toe of left foot M20.42 Active 581453710 Problem Mood disorder F39 Active 695305 05 Problem Deformity of left foot M21.962 Active 018301884 Problem Lumbago with sciatica, left side M54.42 Active 064366889 Problem Erectile dysfunction due to diseases classified elsewhere N52.1 Active 094827099 Problem Obstructive sleep apnea syndrome G47.33 Active 20162135 Problem Type 2 diabetes mellitus wit h diabetic neuropathy, without long-term current use of insulin E11.40 Active 98987 006 Problem Essential hypertension I10 Active 67053217 ALLERGIES No Information ENCOUNTERS Encounter Location Date Diagnosis [facility] [address] [facility] [id number] [address] [place] [id number] 13 Dec, 2019 Acute diffuse otitis externa of left ear H60.312 [facility] [address] [facility] [id number] [address] [place] [address] 18 Nov, 2019 Viral URI J06.9 and Flu-like symptoms R68.89 [place] [address] [facility] [id number] [address] [place] [address] 09 Nov, 2019 Type 2 diabetes mellitus wit h diabetic neuropathy, without long- term current use of insulin E11.40 ; Family history of prostate cancer Z80.42 and Prostate cancer screening Z12.5 [place] [address] [place] [id number] [address] [place] [address] Nov, [place] [address] [place] [id number] [address] [place] [address] Sep, [place] [address] [place] [id number] [address] [place] [address] Aug, [place] [address] [place] [id number] [place] [address] Jul, Lumbago with sciatica, unspe cified side M54.40 [place] [address] [place] [id number] [address] [place] [address] Jun, Lumbago with sciatica, unspe cified side M54.40 [place] [address] [place] [id number] [address] [place] [address] Jun, URI, acute J06.9 [place] [address] [place] [id number] [address] [place] [address] May, Lumbago with sciatica, unspe cified side M54.40 [place] [address] [facility] [id number] [address] [place] [address] May, [place] [address] [place] [id number] [address] [place] [id number] 12 May, 2019 Type 2 diabetes mellitus wit h diabetic neuropathy, without long- term current use of insulin E11.40 and Hammer toe of left foot M20.42 [place] [address] [facility] [id number] [address] [place] [address] May, [place] [address] [place] [id number] [address] [place] [address] May, [facility] [address] [place] [id number] [address] [place] [address] May, [facility] [address] [place] [id number] [address] [place] [address] Apr, Lumbago with sciatica, unspe cified side M54.40 [facility] [address] [place] [id number] [address] [place] [address] Apr, [facility] [address] [place] [id number] [address] [place] [address] Apr, [address] [id number] [address] Apr, Hammer toe of left foot M20. 42 ; Chest pain R07.9 ; Preoperative examination Z01.818 and Morbid obesity E66.01 [place] [address] [place] [id number] [address] [place] [address] Apr, Morbid obesity E66.01 ; Bron chitis J40 and High risk medications (not anticoagulants) long-term use Z79.899 [place] [address] [place] [id number] [address] [place] [address] Apr, Lumbago with sciatica, unspe cified side M54.40 [facility] [address] [place] [id number] [address] [place] [address] Apr, [facility] [address] [place] [id number] [address] [place] [address] Mar, Lumbar neuritis M54.16 and M orbid obesity E66.01 [facility] [address] [place] [id number] [address] [place] [address] Mar, [facility] [address] [place] [id number] [address] [place] [address] Mar, [facility] [address] [place] [id number] [address] [place] [address] Mar, Lumbago with sciatica, unspe cified side M54.40 [facility] [address] [id number] [address] [place] [address] Mar, Morbid obesity E66.01 ; Gabe lara R05 ; 2+ pitting edema R60.9 and Controlled type 2 diabetes mellitus without complication, without long-term current use of insulin E11.9 [facility] [address] [id number] [address] [place] [address] Feb, [facility] [address] [id number] [address] [place] [id number] Feb, Lumbago with sciatica, unspe cified side M54.40 [facility] [address] [id number] [address] [place] [address] Feb, [facility] [address] [id number] [address] [place] [address] Feb, Controlled type 2 diabetes m ellitus without complication, without long-term current use of insulin E11.9 and Morbid obesity E66.01 [facility] [address] [id number] [address] [place] [address] January, Deformity of left foot M21.9 62 [facility] [address] [id number] [address] [place] [address] January, [facility] [address] [id number] [address] [place] [address] January, Lumbago with sciatica, unspe cified side M54.40 [facility] [address] [id number] [address] [place] [address] January, [facility] [address] [id number] [address] [place] [address] January, Lumbago with sciatica, unspe cified side M54.40 [facility] [address] [id number] [address] [place] [address] January, [facility] [address] [facility] [id number] [address] [place] [address] January, Acute right-sided thoracic b ack pain M54.6 [facility] [address] [place] [id number] [address] [place] [address] January, Acute right-sided thoracic b ack pain M54.6 [facility] [address] [address] January, Chest pain, unspecified type R07.9 ; Morbid obesity E66.01 and Scabies B86 [facility] [address] [place] [id number] [address] [place] [address] Dec, Lumbago with sciatica, unspe cified side M54.40 [place] [id number] [address] Dec, Toenail fungus B35.1 [facility] [address] [place] [id number] [address] [place] [address] Dec, Toenail fungus B35.1 [facility] [address] [address] Dec, Acute right-sided thoracic b ack pain M54.6 [place] [id number] [place] [id number] [address] [place] [address] Dec, Lumbago with sciatica, unspe cified side M54.40 [facility] [address] [place] [id number] [address] [place] [address] Nov, Hammer toe of left foot M20. 42 ; Deformity of left foot M21.962 and Type 2 diabetes mellitus with diabetic neuropathy, without long-term current use of insulin E11.40 [facility] [address] [facility] [id number] [address] [place] [address] Nov, Acute right-sided thoracic b ack pain M54.6 ; Morbid obesity E66.01 and Rt flank pain R10.9 [place] [address] [facility] [id number] [address] [place] [address] Nov, Lumbago with sciatica, unspe cified side M54.40 [place] [address] [place] [id number] [address] [place] [address] Oct, Lumbago with sciatica, unspe cified side M54.40 [place] [address] [place] [id number] [place] [address] Sep, Lumbago with sciatica, unspe cified side M54.40 [place] [address] [place] [id number] [address] [place] [address] Sep, [place] [address] [place] [id number] [place] [address] Sep, BMI 40.0-44.9, adult Z68.41 ; Lumbago with sciatica, left side M54.42 ; Lumbago with sciatica, right side M54.41 and Other chronic pain G89.29 [place] [address] [place] [id number] [address] [place] [address] Aug, Lumbago with sciatica, unspe cified side M54.40 [place] [address] [place] [id number] [address] [place] [address] Aug, Type 2 diabetes mellitus wit h diabetic neuropathy, without long- term current use of insulin E11.40 ; Hammer toe of left foot M20.42 ; Hypertension, benign I10 and Frequent headaches R51 [place] [address] [place] [id number] [address] [place] [address] Jul, Lumbago with sciatica, unspe cified side M54.40 [place] [address] [place] [id number] [address] [place] [address] Jul, [place] [address] [place] [id number] [address] [place] [address] Jul, Essential hypertension I10 a nd Controlled type 2 diabetes mellitus without complication, without long-term current use of insulin E11.9 [facility] [address] [facility] [id number] [address] [place] [address] Jul, Essential hypertension I10 ; Controlled type 2 diabetes mellitus without complication, without long-term current use of insulin E11.9 and BMI 40.0-44.9, adult Z68.41 [facility] [address] [facility] [id number] [address] [place] [address] Jul, Dysfunction of left eustachi an tube H69.82 [facility] [address] [id number] [address] [place] [address] Jul, Lumbago with sciatica, unspe cified side M54.40 [facility] [address] [id number] [address] [place] [address] [id number] Jun, Dental examination Z01.20 [facility] [address] [facility] [id number] [address] [place] [address] Jun, Lumbago with sciatica, unspe cified side M54.40 and Encounter for immunization Z23 [facility] [address] [facility] [id number] [address] [place] [address] Jun, Dysfunction of left eustachi an tube H69.82 [place] [address] [facility] [id number] [place] [address] [id number] Jun, Dental examination Z01.20 [facility] [address] [id number] [address] [place] [address] Jun, Other chronic pain G89.29 [facility] [address] [id number] [address] [place] [address] [id number] Jun, Dental examination Z01.20 [facility] [address] [id number] [address] [place] [address] Jun, [facility] [address] [id number] [address] [place] [address] Jun, Bronchitis J40 ; Dysfunction of left eustachian tube H69.82 and BMI 45.0-49.9, adult Z68.42 [facility] [address] [place] [id number] [address] [place] [address] Jun, Lumbago with sciatica, unspe cified side M54.40 [facility] [address] [place] [id number] [address] [place] [address] May, Type 2 diabetes mellitus wit h diabetic neuropathy, without long- term current use of insulin E11.40 and Hypertension, benign I10 [facility] [address] [place] [id number] [address] [place] [address] May, Lumbago with sciatica, unspe cified side M54.40 [facility] [address] [place] [id number] [address] [place] [address] Apr, [facility] [address] [address] Apr, Controlled type 2 diabetes m ellitus without complication, without long-term current use of insulin E11.9 ; Insect bite (nonvenomous), right ankle, initial encounter S90.561A ; Local infection of the skin and subcutaneous tissue, unspecified L08.9 ; Acute swimmer''s ear of left side H60.332 and BMI 45.0-49.9, adult Z68.42 [place] [address] [place] [id number] [address] [place] [address] Apr, Lumbago with sciatica, unspe cified side M54.40 [facility] [address] [place] [id number] [address] [place] [address] Mar, [place] [address] [place] [id number] [place] [address] Mar, Lumbago with sciatica, unspe cified side M54.40 [facility] [address] [place] [id number] [address] [place] [address] Feb, Lumbago with sciatica, unspe cified side M54.40 [facility] [address] [facility] [id number] [address] [place] [address] Feb, BMI 45.0-49.9, adult Z68.42 and Obstructive sleep apnea syndrome G47.33 [place] [address] [place] [id number] [address] [place] [address] January, Lumbar neuritis M54.16 [place] [address] [facility] [id number] [address] [place] [address] January, Lumbago with sciatica, unspe cified side M54.40 [place] [address] [place] [id number] [place] [address] Dec, Controlled type 2 diabetes m maribell without complication, without long-term current use of insulin E11.9 ; Erectile dysfunction due to diseases classified elsewhere N52.1 and Mood disorder F39 [place] [address] [place] [id number] [address] [place] [address] Dec, Lumbago with sciatica, unspe cified side M54.40 [place] [address] [place] [id number] [address] [place] [address] Dec, Obstructive sleep apnea synd luis G47.33 [place] [address] [place] [id number] [address] [place] [address] Nov, Lumbago with sciatica, unspe cified side M54.40 ; Hypertension, benign I10 and Mood disorder F39 [facility] [address] [place] [id number] [address] [place] [address] Nov, Other chronic pain G89.29 [facility] [address] [facility] [id number] [address] [place] [address] Nov, Lumbago with sciatica, unspe cified side M54.40 [facility] [address] [id number] [address] [place] [address] [id number] Nov, Dental examination Z01.20 [facility] [address] [facility] [id number] [address] [place] [address] Oct, [facility] [address] [facility] [id number] [address] [place] [address] Oct, Lumbago with sciatica, unspe cified side M54.40 [facility] [address] [facility] [id number] [address] [place] [address] Oct, Lumbago with sciatica, unspe cified side M54.40 [facility] [address] [facility] [id number] [address] [place] [address] Oct, [facility] [address] [facility] [id number] [address] [place] [address] Oct, [facility] [address] [facility] [id number] [address] [place] [address] [id number] Oct, Dental examination Z01.20 [facility] [address] [facility] [id number] [address] [place] [address] Oct, [facility] [address] [facility] [id number] [address] [place] [address] Oct, Pain in right knee M25.561 [facility] [address] [facility] [id number] [address] [place] [address] Sep, [facility] [address] [facility] [id number] [address] [place] [address] Sep, Other chronic pain G89.29 [facility] [address] [facility] [id number] [address] [place] [address] Sep, Lumbago with sciatica, unspe cified side M54.40 [facility] [address] [facility] [id number] [address] [place] [address] Sep, [facility] [address] [facility] [id number] [address] [place] [address] Sep, Viral URI J06.9 and BMI 45.0 -49.9, adult Z68.42 [facility] [address] [facility] [id number] [address] [place] [address] Aug, Foreign body hand S60.559A a nd BMI 45.0-49.9, adult Z68.42 [facility] [address] [facility] [id number] [address] [place] [address] Aug, [facility] [address] [place] [id number] [address] [place] [address] Aug, Lumbago with sciatica, unspe cified side M54.40 [facility] [address] [facility] [id number] [address] [place] [address] Aug, Vertigo R42 ; Dysfunction of both eustachian tubes H69.83 ; Low back pain M54.5 and Other chronic pain G89.29 [facility] [address] [facility] [id number] [address] [place] [address] Aug, Dizziness R42 and Acute bila teral otitis media H66.93 [facility] [address] [facility] [id number] [address] [place] [id number] Aug, Lumbago with sciatica, unspe cified side M54.40 [facility] [address] [facility] [id number] [address] [place] [address] [id number] Jul, Dental examination Z01.20 [facility] [address] [place] [id number] [address] [place] [address] Jul, [facility] [address] [facility] [id number] [address] [place] [address] Jul, [facility] [address] [facility] [id number] [address] [place] [address] Jul, Dysfunction of both eustachi an tubes H69.83 [facility] [address] [facility] [id number] [address] [place] [phone] 07 Jul, 2017 Controlled type 2 diabetes m taraitus without complication, without long-term current use of insulin E11.9 [facility] [address] [id number] [address] [place] [address] Jul, Controlled type 2 diabetes m ellitus without complication, without long-term current use of insulin E11.9 [facility] [address] [id number] [address] [place] [address] Jul, Dizziness R42 and BMI 40.0-4 4.9, adult Z68.41 [facility] [address] [facility] [id number] [address] [place] [id number] Jul, Controlled type 2 diabetes m ellitus without complication, without long-term current use of insulin E11.9 [facility] [address] [facility] [id number] [address] [place] [address] Jul, Lumbago with sciatica, unspe cified side M54.40 [facility] [address] [id number] [place] [address] [id number] Jul, Dental examination Z01.20 [facility] [address] [id number] [address] [place] [address] Jun, [facility] [id number] [place] [address] [id number] Jun, Dental examination Z01.20 [facility] [address] [facility] [id number] [address] [place] [phone] Jun, Controlled type 2 diabetes m ellitus without complication, without long-term current use of insulin E11.9 [facility] [address] [id number] [address] [place] [address] Jun, Lumbago with sciatica, unspe cified side M54.40 [facility] [id number] [place] [phone] May, Dental examination Z01.20 [facility] [address] [id number] [address] [place] [id number] May, Controlled type 2 diabetes m ellitus without complication, without long-term current use of insulin E11.9 [facility] [address] [id number] [address] [place] [address] [id number] 19 May, 2017 Dental examination Z01.20 [facility] [address] [facility] [id number] [address] [place] [phone] 18 May, 2017 Bronchitis J40 ; Dry mouth R 68.2 ; Non morbid obesity E66.9 and Controlled type 2 diabetes mellitus without complication, without long-term current use of insulin E11.9 [facility] [address] [facility] [id number] [address] [place] [phone] 16 May, 2017 Encounter for immunization Z [address] [address] [facility] [id number] [place] [phone] 07 May, 2017 Lumbago with sciatica, unspe cified side M54.40 [facility] [address] [facility] [id number] [address] [place] [phone] 05 May, 2017 [facility] [id number] [place] [phone] Apr, Dental examination Z01.20 [facility] [address] [id number] [address] [place] [id number] Apr, Lumbago with sciatica, unspe cified side M54.40 [facility] [address] [facility] [id number] [address] [place] [phone] Mar, Lumbago with sciatica, left side M54.42 [facility] [address] [facility] [id number] [address] [place] [place] [address] Mar, [facility] [address] [facility] [id number] [address] [place] [address] Mar, Lumbar neuritis M54.16 [facility] [address] [facility] [id number] [address] [place] [address] Mar, [facility] [address] [id number] [address] [place] [address] [id number] Mar, Dental examination Z01.20 [place] [address] [facility] [id number] [address] [place] [address] Mar, MELE (obstructive sleep apnea ) G47.33 ; Neuropathy involving both lower extremities G57.93 and Frequent headaches R51 [place] [address] [facility] [id number] [address] [place] [address] Mar, Lumbago with sciatica, unspe cified side M54.40 [place] [address] [place] [id number] [address] [place] [address] Feb, Lumbago with sciatica, unspe cified side M54.40 and Controlled type 2 diabetes mellitus without complication, without long-term current use of insulin E11.9 [place] [address] [place] [id number] [place] [address] January, Hypertension, benign I10 and Bilateral low back pain with sciatica, sciatica laterality unspecified M54.40 [place] [address] [place] [id number] [place] [address] January, Hypertension, benign I10 ; L umbago with sciatica, unspecified side M54.40 ; Other chronic pain G89.29 and Controlled type 2 diabetes mellitus without complication, without long-term current use of insulin E11.9 [place] [address] [place] [id number] [address] [place] [address] January, Lumbar neuritis M54.16 [place] [address] [place] [id number] [address] [place] [address] January, [place] [address] [place] [id number] [address] [place] [address] Dec, Lumbago with sciatica, right side M54.41 and Lumbar neuritis M54.16 [place] [address] [place] [id number] [address] [place] [address] Dec, Lumbar neuritis M54.16 [place] [address] [place] [id number] [address] [place] [address] Dec, Lumbar neuritis M54.16 [place] [id number] [place] [id number] [address] [place] [address] Nov, Lumbar neuritis M54.16 ; Lum bago with sciatica, right side M54.41 ; Controlled type 2 diabetes mellitus without complication, without long-term current use of insulin E11.9 and Rash and nonspecific skin eruption R21 [place] [address] [place] [id number] [address] [place] [address] Nov, Lumbar neuritis M54.16 and P derickpeter miroslava L23.7 [place] [address] [place] [id number] [address] [place] [address] Oct, Lumbar neuritis M54.16 ; Cou ghing R05 and Mood disorder F39 [place] [address] [place] [id number] [address] [place] [address] Sep, Lumbago with sciatica, right side M54.41 [place] [address] [place] [id number] [address] [place] [address] Sep, Adjustment disorder with dis turbance of emotion F43.29 and Pain management R52 [place] [address] [place] [id number] [address] [place] [address] Sep, [place] [address] [place] [id number] [address] [place] [address] Sep, [place] [address] [place] [id number] [address] [place] [address] Sep, Controlled type 2 diabetes evens reyna without complication, without long-term current use of insulin E11.9 and Lumbago with sciatica, unspecified side M54.40 [place] [address] [place] [id number] [address] [place] [address] Aug, Controlled type 2 diabetes evens reyna without complication, without long-term current use of insulin E11.9 ; Pain in right knee M25.561 ; Pain in left knee M25.562 ; Other chronic pain G89.29 ; Lumbago with sciatica, right side M54.41 ; Neck pain M54.2 and Encounter for immunization Z23 [facility] [address] [id number] [address] [place] [address] Jul, [facility] [address] [id number] [address] [place] [id number] Jul, Controlled type 2 diabetes m maribell without complication, without long-term current use of insulin E11.9 [facility] [address] [id number] [address] [place] [address] Jul, [facility] [address] [id number] [address] [place] [address] Jul, [facility] [address] [id number] [address] [place] [address] Jul, Lumbago with sciatica, left side M54.42 ; Lumbago with sciatica, right side M54.41 and Other chronic pain G89.29 [facility] [address] [id number] [address] [place] [address] Jul, [facility] [address] [id number] [address] [place] [address] Jul, [facility] [address] [id number] [address] [place] [address] Jun, [facility] [address] [id number] [address] [place] [address] Jun, Lumbago with sciatica, right side M54.41 and Other chronic pain G89.29 [facility] [address] [id number] [address] [place] [address] Jun, Cervicalgia M54.2 ; Lumbago with sciatica, unspecified side M54.40 and Other chronic pain G89.29 [facility] [address] [id number] [address] [place] [address] 15 May, 2016 Pain in right knee M25.561 ; Pain in left knee M25.562 and Other chronic pain G89.29 [facility] [address] [id number] [address] [place] [address] May, [facility] [address] [id number] [address] [place] [address] Apr, Other chronic pain G89.29 an d Pain in right knee M25.561 [facility] [address] [id number] [address] [place] [address] Apr, Pain in right knee M25.561 [facility] [address] [id number] [address] [place] [address] Mar, [facility] [address] [id number] [address] [place] [address] Mar, Mood disorder F39 and Contro lled type 2 diabetes mellitus without complication, without long-term current use of insulin E11.9 [facility] [address] [id number] [address] [place] [address] Mar, Pain in right knee M25.561 ; Pain in left knee M25.562 ; Other chronic pain G89.29 ; Obstructive sleep apnea syndrome G47.33 ; Mood disorder F39 and Controlled type 2 diabetes mellitus without complication, without long- term current use of insulin E11.9 [facility] [address] [id number] [address] [place] [address] Mar, [facility] [address] [id number] [address] [place] [address] [id number] Feb, Dental examination Z01.20 [facility] [address] [id number] [address] [place] [address] Feb, [facility] [address] [id number] [address] [place] [address] Feb, Osteoarthritis of right knee , unspecified osteoarthritis type M17.9 [facility] [address] [id number] [address] [place] [address] January, [facility] [address] [id number] [address] [place] [address] [id number] January, Dental examination Z01.20 [facility] [address] [id number] [address] [place] [address] January, [facility] [address] [id number] [address] [place] [address] [id number] January, Dental examination Z01.20 an d Caries K02.9 [facility] [address] [id number] [address] [place] [address] Dec, Encounter for other preproce dural examination Z01.818 [facility] [address] [id number] [address] [place] [address] Dec, [facility] [address] [id number] [address] [place] [address] Dec, Knee pain M25.569 [facility] [address] [id number] [address] [place] [address] Dec, Pain in right knee M25.561 [facility] [address] [id number] [address] [place] [address] Dec, [facility] [address] [id number] [address] [place] [id number] Dec, [facility] [address] [id number] [address] [place] [address] Dec, Encounter for immunization Z 23 [facility] [address] [id number] [address] [place] [address] Dec, [facility] [address] [id number] [address] [place] [address] Dec, [facility] [address] [id number] [address] [place] [address] Nov, [facility] [address] [id number] [address] [place] [address] Nov, Hypertension, benign I10 ; C ervicalgia M54.2 ; Pain in right knee M25.561 and Pain in left knee M25.562 [place] [id number] [facility] [id number] [address] [place] [address] Oct, [facility] [address] [facility] [id number] [address] [place] [address] Oct, [facility] [address] [facility] [id number] [address] [place] [address] Oct, Osteoarthritis of both knees M17.0 [place] [address] [facility] [id number] [address] [place] [id number] Oct, [place] [address] [facility] [id number] [address] [place] [address] Oct, Low back pain M54.5 [place] [address] [facility] [id number] [address] [place] [id number] Oct, Low back pain M54.5 ; Sciati ca, unspecified side M54.30 ; Pain in right knee M25.561 ; Pain in left knee M25.562 ; Pain in right shoulder M25.511 and Pain in left shoulder M25.512 [place] [address] [facility] [id number] [address] [place] [address] Oct, [place] [address] [facility] [id number] [address] [place] [address] Sep, Pain in right hip M25.551 [place] [address] [facility] [id number] [address] [place] [id number] Sep, Acute upper respiratory infe ction, unspecified J06.9 [place] [address] [facility] [id number] [address] [place] [address] Aug, Acute upper respiratory infe ction, unspecified J06.9 and Other viral agents as the cause of diseases classified elsewhere B97.89 [place] [address] [facility] [id number] [address] [place] [address] Jul, Arthritis M19.90 [facility] [address] [id number] [address] [place] [address] Jun, Arthritis M19.90 ; Pain in r ight hip M25.551 ; Pain in left hip M25.552 ; Bilateral low back pain with sciatica, sciatica laterality unspecified M54.40 ; Neck pain M54.2 ; Upper back pain M54.9 and Knee pain, unspecified laterality M25.569 [facility] [address] [id number] [address] [place] [address] May, Osteoarthritis of both knees 715.96 [facility] [address] [id number] [address] [place] [address] May, Rash 782.1 [facility] [address] [id number] [address] [place] [address] Apr, Lumbar strain 847.2 [facility] [address] [id number] [address] [place] [address] Apr, Rash 782.1 [facility] [address] [id number] [address] [place] [address] Mar, Rash 782.1 [facility] [address] [facility] [id number] [address] [place] [address] Feb, Rash 782.1 ; Hemorrhoids 455 .6 and Constipation 564.00 [facility] [address] [id number] [address] [place] [address] Feb, Osteoarthritis of both knees 715.96 [facility] [address] [id number] [address] [place] [id number] January, [facility] [address] [id number] [address] [place] [address] Dec, [facility] [address] [facility] [id number] [address] [place] [address] Dec, [facility] [address] [id number] [address] [place] [id number] 13 Dec, 2014 [facility] [address] [id number] [address] [place] [address], [place] [address] 18 Nov, 2014 [facility] [address] [id number] [address] [place] [address], [place] [address] 18 Nov, 2014 [facility] [address] [id number] [address] [place] [address], [place] [address] 18 Nov, 2014 [facility] [address] [id number] [address] [place] [address], [place] [address] 18 Nov, 2014 [facility] [address] [id number] [address] [place] [address], [place] [address] Nov, [facility] [address] [id number] [address] [place] [address], [place] [address] Nov, [facility] [address] [id number] [address] [place] [address], [place] [address] Oct, [facility] [address] [id number] [address] [place] [address], [place] [address] Oct, [facility] [address] [id number] [address] [place] [address], [place] [address] Oct, 2014 [facility] [address] [id number] [address] [place] [address], [place] [address] Oct, [facility] [address] [id number] [address] [place] [address], [place] [address] Oct, 2014 [facility] [address] [id number] [address] [place] [address], [place] [address] Oct, 2014 [facility] [address] [id number] [address] [place] [address], [place] [address] Oct, 2014 [facility] [address] [id number] [address] [place] [address], [place] [address] Oct, 2014 [facility] [address] [id number] [address] [place] [address], [place] [address] Oct, [facility] [address] [id number] [address] [place] [address], [place] [address] Oct, [facility] [address] [id number] [address] [place] [address], [place] [address] Oct, [facility] [address] [id number] [address] [place] [address], [place] [address] Sep, [facility] [address] [id number] [address] [place] [address], [place] [address] Sep, [facility] [address] [id number] [address] [place] [address], [place] [address] Sep, [facility] [address] [id number] [address] [place] [address], [place] [address] Sep, [facility] [address] [id number] [address] [place] [address], [place] [address] Sep, [facility] [address] [id number] [address] [place] [address], [place] [address] Sep, [facility] [address] [id number] [address] [place] [address], [place] [address] Aug, [facility] [address] [id number] [address] [place] [address], [place] [address] Aug, [facility] [address] [id number] [address] [place] [address], [place] [address] Aug, [facility] [address] [id number] [address] [place] [address], [place] [address] Aug, [facility] [address] [id number] [address] [place] [address], [place] [address] Aug, [facility] [address] [id number] [address] [place] [address], [place] [address] Aug, [facility] [address] [id number] [address] [place] [address], [place] [address] Aug, [facility] [address] [id number] [address] [place] [address], [place] [address] Aug, [facility] [address] [id number] [address] [place] [address], [place] [address] Aug, [facility] [address] [id number] [address] [place] [address], [place] [address] Aug, [facility] [address] [id number] [address] [place] [address], [place] [address] Jul, [facility] [address] [id number] [address] [place] [address], [place] [address] Jul, [facility] [address] [id number] [address] [place] [address], [place] [address] Jul, [facility] [address] [id number] [address] [place] [address], [place] [address] Jul, [facility] [address] [id number] [address] [place] [address], [place] [address] Jun, [facility] [address] [id number] [address] [place] [address], [place] [address] Jun, [facility] [address] [id number] [address] [place] [address], [place] [address] Jun, [facility] [address] [id number] [address] [place] [address], [place] [address] Jun, [facility] [address] [id number] [address] [place] [address], [place] [address] Jun, [facility] [address] [id number] [address] [place] [address], [place] [address] Jun, [facility] [address] [id number] [address] [place] [address], [place] [address] Jun, [facility] [address] [id number] [address] [place] [address], [place] [address] Jun, [facility] [address] [id number] [address] [place] [address], [place] [address] May, [facility] [address] [id number] [facility] [place] [address] 24 May, 2013 [facility] [address] [id number] [facility] [place] [address] 19 May, 2014 [facility] [address] [id number] [facility] [place] [address] 19 May, 2013 [facility] [address] [id number] [address] [place] [address], [place] [address] 15 May, 2014 [facility] [address] [id number] [address] [place] [address], [place] [address] 15 May, 2014 [facility] [address] [id number] [address] [place] [address], [place] [address] 15 May, 2014 [facility] [address] [id number] [address] [place] [address], [place] [address] May, [facility] [address] [id number] [address] [place] [address], [place] [address] Apr, [facility] [address] [id number] [address] [place] [address], [place] [address] Apr, [facility] [address] [id number] [address] [place] [address], [place] [address] Apr, [facility] [address] [id number] [address] [place] [address], [place] [address] Apr, [facility] [address] [id number] [address] [place] [address], [place] [address] Apr, [facility] [address] [id number] [address] [place] [address], [place] [address] Apr, [facility] [address] [id number] [address] [place] [address], [place] [address] Apr, [facility] [address] [id number] [address] [place] [address], [place] [address] Apr, [facility] [address] [id number] [address] [place] [id number], [place] [address] Apr, [facility] [address] [id number] [address] [place] [address], [place] [address] Apr, [facility] [address] [id number] [address] [place] [address], [place] [address] Apr, [facility] [address] [id number] [address] [place] [address], [place] [address] Apr, [facility] [address] [id number] [address] [place] [address], [place] [address] Mar, [facility] [address] [id number] [address] [place] [address], [place] [address] Mar, [facility] [address] [id number] [address] [place] [address], [place] [address] Mar, [facility] [address] [id number] [address] [place] [address], [place] [address] Mar, [facility] [address] [id number] [address] [place] [address], [place] [address] Mar, [facility] [address] [id number] [address] [place] [address], [place] [address] Mar, [facility] [address] [id number] [address] [place] [address], [place] [address] Feb, [facility] [address] [id number] [address] [place] [address], [place] [address] Feb, [facility] [address] [id number] [address] [place] [address], [place] [address] Feb, [facility] [address] [id number] [address] [place] [address], [place] [address] Feb, [facility] [address] [id number] [address] [place] [address], [place] [address] Feb, [facility] [address] [id number] [address] [place] [address], [place] [address] Feb, [facility] [address] [id number] [facility] [place] [address] Feb, [facility] [address] [id number] [address] [place] [address], [place] [address] Feb, [facility] [address] [id number] [address] [place] [address], [place] [address] Feb, [facility] [address] [id number] [address] [place] [address], [place] [address] Feb, [facility] [address] [id number] [address] [place] [address], [place] [address] Feb, [facility] [address] [id number] [address] [place] [address], [place] [address] Feb, [facility] [address] [id number] [address] [place] [address], [place] [address] Feb, [facility] [address] [id number] [address] [place] [address], [place] [address] Feb, [facility] [address] [id number] [address] [place] [address], [place] [address] January, [facility] [address] [id number] [address] [place] [address], [place] [address] January, [facility] [address] [id number] [address] [place] [address], [place] [address] January, [facility] [address] [id number] [address] [place] [address], [place] [address] January, [facility] [address] [id number] [address] [place] [address], [place] [address] January, [facility] [address] [id number] [address] [place] [address], [place] [address] January, [facility] [address] [id number] [address] [place] [address], [place] [address] Dec, [facility] [address] [address] [id number] [address] [place] [address], [place] [address] Dec, [facility] [address] [id number] [address] [place] [address], [place] [address] Dec, [facility] [address] [id number] [address] [place] [address], [place] [address] Dec, [facility] [address] [id number] [address] [place] [address], [place] [address] Dec, [facility] [address] [id number] [address] [place] [address], [place] [address] Dec, [facility] [address] [id number] [address] [place] [address], [place] [address] Dec, [facility] [address] [id number] [address] [place] [address], [place] [address] Dec, [facility] [address] [id number] [address] [place] [address], [place] [address] Nov, [facility] [address] [id number] [address] [place] [address], [place] [address] Nov, [facility] [address] [id number] [address] [place] [address], [place] [address] Nov, [facility] [address] [id number] [address] [place] [address], [place] [address] Nov, [facility] [address] [id number] [address] [place] [address], [place] [address] Nov, [facility] [address] [id number] [address] [place] [address], [place] [address] Nov, [facility] [address] [id number] [address] [place] [address], [place] [address] Nov, [facility] [address] [id number] [address] [place] [address], [place] [address] Nov, [facility] [address] [id number] [address] [place] [address], [place] [address] Oct, [facility] [address] [id number] [address] [place] [address], [place] [address] Oct, [facility] [address] [id number] [address] [place] [address], [place] [address] Oct, [facility] [address] [id number] [address] [place] [address], [place] [address] Oct, [facility] [address] [id number] [address] [place] [address], [place] [address] Oct, [facility] [address] [id number] [address] [place] [address], [place] [address] Oct, [facility] [address] [id number] [address] [place] [address], [place] [address] Oct, [facility] [address] [id number] [address] [place] [address], [place] [address] Oct, [facility] [address] [id number] [address] [place] [address], [place] [address] Oct, [facility] [address] [id number] [address] [place] [address], [place] [address] Oct, [facility] [address] [id number] [address] [place] [address], [place] [address] Sep, [facility] [address] [id number] [address] [place] [address], [place] [address] Sep, [facility] [address] [id number] [address] [place] [address], [place] [address] Sep, [facility] [address] [id number] [address] [place] [address], [place] [address] Sep, [facility] [address] [id number] [address] [place] [address], [place] [address] Sep, [facility] [address] [id number] [address] [place] [address], [place] [address] Sep, [facility] [address] [id number] [address] [place] [address], [place] [address] Aug, [facility] [address] [id number] [address] [place] [address], [place] [address] Aug, [facility] [address] [id number] [address] [place] [address], [place] [address] Aug, [facility] [address] [id number] [address] [place] [address], [place] [address] Aug, [facility] [address] [id number] [address] [place] [address], [place] [address] Aug, [facility] [address] [id number] [address] [place] [address], [place] [address] Aug, [facility] [address] [id number] [address] [place] [address], [place] [address] Aug, [facility] [address] [id number] [address] [place] [address], [place] [address] Aug, [facility] [address] [id number] [address] [place] [address], [place] [address] Jul, [facility] [address] [id number] [address] [place] [address], [place] [address] Jul, [facility] [address] [id number] [address] [place] [address], [place] [address] Jul, [facility] [address] [id number] [address] [place] [address], [place] [address] Jul, [facility] [address] [id number] [address] [place] [address] Jul, [facility] [address] [id number] [address] [place] [address], [place] [address] Jul, [facility] [address] [id number] [address] [place] [address], [place] [address] Jun, [facility] [address] [id number] [address] [place] [address], [place] [address] Jun, [facility] [address] [id number] [address] [place] [address] [place] [address] Jun, [facility] [address] [id number] [address] [place] [address], [place] [address] 24 May, 2013 [facility] [address] [id number] [address] [place] [address], [place] [address] May, [facility] [address] [id number] [address] [place] [address], [place] [address] May, [facility] [address] [id number] [address] [place] [address], [place] [address] Apr, [facility] [address] [id number] [address] [place] [address], [place] [address] Apr, [facility] [address] [id number] [address] [place] [address], [place] [address] Apr, [facility] [address] [id number] [address] [place] [address], [place] [address] Apr, [facility] [address] [id number] [address] [place] [address], [place] [address] Mar, [facility] [address] [id number] [address] [place] [address], [place] [address] Mar, [facility] [address] [id number] [address] [place] [address], [place] [address] Mar, [facility] [address] [id number] [address] [place] [address], [place] [address] Mar, [facility] [address] [id number] [address] [place] [address], [place] [address] Feb, [facility] [address] [id number] [address] [place] [address], [place] [address] Feb, [facility] [address] [id number] [address] [place] [address], [place] [address] Feb, [facility] [address] [id number] [address] [place] [address], [place] [address] Feb, [facility] [address] [id number] [address] [place] [address], [place] [address] January, [facility] [address] [id number] [address] [place] [address], [place] [address] January, [facility] [address] [id number] [address] [place] [address], [place] [address] January, [facility] [address] [id number] [address] [place] [address], [place] [address] Nov, [facility] [address] [id number] [address] [place] [address], [place] [address] Nov, [facility] [address] [id number] [address] [place] [address], [place] [address] Oct, [facility] [address] [id number] [address] [place] [address], [place] [address] Oct, [facility] [address] [id number] [address] [place] [address], [place] [address] Oct, [facility] [address] [id number] [address] [place] [address], [place] [address] Oct, [facility] [address] [id number] [address] [place] [address], [place] [address] Sep, [facility] [address] [id number] [address] [place] [address], [place] [address] Sep, [facility] [address] [id number] [address] [place] [address], [place] [address] Sep, [facility] [address] [id number] [address] [place] [address], [place] [address] Aug, [facility] [address] [id number] [address] [place] [address], [place] [address] Aug, [facility] [address] [id number] [address] [place] [address], [place] [address] Aug, [facility] [address] [id number] [address] [place] [address], [place] [address] Aug, [facility] [address] [id number] [address] [place] [address], [place] [address] Aug, [facility] [address] [id number] [address] [place] [address], [place] [address] Aug, [facility] [address] [id number] [address] [place] [address], [place] [address] Jul, [facility] [address] [id number] [address] [place] [address], [place] [address] Jul, [facility] [address] [id number] [address] [place] [address], [place] [address] Jun, [facility] [address] [id number] [address] [place] [address], [place] [address] Jun, [facility] [address] [id number] [address] [place] [address], [place] [address] Jun, [facility] [address] [id number] [address] [place] [address], [place] [address] Apr, [facility] [address] [id number] [address] [place] [address], [place] [address] Apr, [facility] [address] [id number] [address] [place] [address], [place] [address] Mar, [facility] [address] [id number] [address] [place] [address], [place] [address] Mar, [facility] [address] [id number] [address] [place] [address] Mar, [facility] [address] [id number] [address] [place] [address], [place] [address] Mar, [facility] [address] [id number] [address] [place] [address], [place] [address] Feb, [facility] [address] [id number] [address] [place] [address], [place] [address] Feb, [facility] [address] [id number] [address] [place] [address], [place] [address] Feb, [facility] [address] [id number] [address] [place] [address], [place] [address] January, [facility] [address] [id number] [address] [place] [address], [place] [address] January, [facility] [address] [id number] [address] [place] [address], [place] [address] January, [facility] [address] [id number] [address] [place] [address], [place] [address] January, [facility] [address] [id number] [address] [place] [address], [place] [address] Dec, [facility] [address] [id number] [address] [place] [address], [place] [address] Dec, [facility] [address] [id number] [address] [place] [address], [place] [address] Nov, [facility] [address] [id number] [address] [place] [address], [place] [address] Nov, [facility] [address] [id number] [address] [place] [address], [place] [address] 16 Oct, 2011 [facility] [address] [id number] [address] [place] [address], [place] [address] Oct, [facility] [address] [id number] [address] [place] [address], [place] [address] Sep, [facility] [address] [id number] [address] [place] [address], [place] [address] Sep, [facility] [address] [id number] [address] [place] [address], [place] [address] Sep, [facility] [address] [id number] [address] [place] [address], [place] [address] Sep, [facility] [address] [id number] [address] [place] [address], [place] [address] Aug, [facility] [address] [id number] [address] [place] [address] 16 Aug, 2011 [facility] [address] [id number] [address] [place] [address] Aug, [facility] [address] [id number] [address] [place] [address] Jul, [facility] [address] [id number] [address] [place] [address] Aug, [facility] [address] [id number] [address] [place] [address] Aug, [facility] [address] [id number] [address] [place] [address] Aug, [facility] [address] [id number] [address] [place] [address] Aug, [facility] [address] [id number] [address] [place] [address] Jul, [facility] [address] [id number] [address] [place] [address] Jul, [facility] [address] [id number] [address] [place] [address] Jul, [facility] [address] [id number] [address] [place] [address] Jun, [facility] [address] [id number] [address] [place] [id number] Jun, [facility] [address] [id number] [address] [place] [address] Jun, [facility] [address] [id number] [address] [place] [id number] Apr, [facility] [address] [id number] [address] [place] [address] Mar, IMMUNIZATIONS No Known Immunizations SOCIAL HISTORY [...]
--- OUTSIDE RECORDS SUMMARY | 2020-03-18 15:01 | XMS REPORT ---
Author Author George WAYNE Organization [facility] Address [address] [place] [address] Care Team Providers Care Construction Operations Manager Name Role Phone REYNA WAYNE Unavailable PROBLEMS Type Condition ICD9-CM Code [id number] Code Onset Dates Condition S tatus SNOMED Code Problem Hypertension, benign I10 Active 08171509 Problem Other chronic pain G89.29 Active 8 0856667 Problem Lumbago with sciatica, unspecified side M54.40 Active 900802767 Problem Controlled type 2 diabetes m ellitus without complication, without long- term current use of insulin E11.9 Active 270123802 Problem Lumbago with sciatica, right side M54.41 Active 414596238 Problem Adjustment disorder with disturbance of emotion F4 3.29 Active 10678565 Problem MELE (obstructive sleep apnea) G47.33 Active 28066207 Problem Non morbid obesity E66.9 Active 4 59039223 Problem Hammer toe of left foot M20.42 Active 196208304 Problem Mood disorder F39 Active 145072 05 Problem Deformity of left foot M21.962 Active 058106622 Problem Lumbago with sciatica, left side M54.42 Active 183109356 Problem Erectile dysfunction due to diseases classified elsewhere N52.1 Active 984619597 Problem Obstructive sleep apnea syndrome G47.33 Active 56076970 Problem Type 2 diabetes mellitus wit h diabetic neuropathy, without long-term current use of insulin E11.40 Active 44949 006 Problem Essential hypertension I10 Active 86645771 ALLERGIES No Information ENCOUNTERS Encounter Location Date Diagnosis [facility] [address] [facility] [id number] [address] [place] [address] 13 Dec, 2019 Acute diffuse otitis externa of left ear H60.312 [facility] [address] [facility] [id number] [address] [place] [address] 18 Nov, 2019 Viral URI J06.9 and Flu-like symptoms R68.89 [place] [address] [facility] [id number] [address] [place] [address] 09 Nov, 2019 Type 2 diabetes mellitus wit h diabetic neuropathy, without long- term current use of insulin E11.40 ; Family history of prostate cancer Z80.42 and Prostate cancer screening Z12.5 [place] [address] [place] [id number] [address] [place] [address] Nov, [place] [address] [place] [id number] [address] [place] [address] Sep, [place] [address] [place] [id number] [address] [place] [address] Aug, [place] [address] [place] [id number] [place] [address] Jul, Lumbago with sciatica, unspe cified side M54.40 [place] [address] [place] [id number] [address] [place] [address] Jun, Lumbago with sciatica, unspe cified side M54.40 [place] [address] [place] [id number] [address] [place] [address] Jun, URI, acute J06.9 [place] [address] [address] [place] [id number] [address] [place] [address] May, Lumbago with sciatica, unspe cified side M54.40 [place] [address] [facility] [id number] [address] [place] [address] May, [place] [address] [place] [id number] [address] [place] [address] 12 May, 2019 Type 2 diabetes mellitus wit h diabetic neuropathy, without long- term current use of insulin E11.40 and Hammer toe of left foot M20.42 [place] [address] [facility] [id number] [address] [place] [address] May, [place] [address] [place] [id number] [address] [place] [address] May, [facility] [address] [place] [id number] [address] [place] [address] May, [facility] [address] [place] [id number] [address] [place] [address] Apr, Lumbago with sciatica, unspe cified side M54.40 [facility] [address] [place] [id number] [address] [place] [address] Apr, [facility] [address] [place] [id number] [address] [place] [address] Apr, [address] [place] [address] Apr, Hammer toe of left foot M20. 42 ; Chest pain R07.9 ; Preoperative examination Z01.818 and Morbid obesity E66.01 [place] [address] [place] [id number] [address] [place] [address] Apr, Morbid obesity E66.01 ; Bron chitis J40 and High risk medications (not anticoagulants) long-term use Z79.899 [place] [address] [place] [id number] [address] [place] [address] Apr, Lumbago with sciatica, unspe cified side M54.40 [facility] [address] [place] [id number] [address] [place] [address] Apr, [facility] [address] [place] [id number] [address] [place] [address] Mar, Lumbar neuritis M54.16 and M orbid obesity E66.01 [facility] [address] [place] [id number] [address] [place] [address] Mar, [facility] [address] [place] [id number] [address] [place] [address] Mar, [facility] [address] [place] [id number] [address] [place] [address] Mar, Lumbago with sciatica, unspe cified side M54.40 [facility] [address] [id number] [address] [place] [address] Mar, Morbid obesity E66.01 ; Gabe alra R05 ; 2+ pitting edema R60.9 and Controlled type 2 diabetes mellitus without complication, without long-term current use of insulin E11.9 [facility] [address] [id number] [address] [place] [address] Feb, [facility] [address] [id number] [address] [place] [address] Feb, Lumbago with sciatica, unspe cified side M54.40 [facility] [address] [id number] [address] [place] [address] Feb, [facility] [address] [id number] [address] [place] [address] Feb, Controlled type 2 diabetes m ellitus without complication, without long-term current use of insulin E11.9 and Morbid obesity E66.01 [facility] [address] [id number] [address] [place] [address] January, Deformity of left foot M21.9 62 [facility] [address] [id number] [address] [place] [address] January, [facility] [address] [id number] [address] [place] [address] January, Lumbago with sciatica, unspe cified side M54.40 [facility] [address] [id number] [address] [place] [address] January, [facility] [address] [id number] [address] [place] [address] January, Lumbago with sciatica, unspe cified side M54.40 [facility] [address] [id number] [address] [place] [address] January, [facility] [address] [facility] [id number] [address] [place] [address] January, Acute right-sided thoracic b ack pain M54.6 [facility] [address] [place] [id number] [address] [place] [address] January, Acute right-sided thoracic b ack pain M54.6 [facility] [address] [address] January, Chest pain, unspecified type R07.9 ; Morbid obesity E66.01 and Scabies B86 [facility] [address] [place] [id number] [address] [place] [address] Dec, Lumbago with sciatica, unspe cified side M54.40 [place] [address] [address] Dec, Toenail fungus B35.1 [facility] [address] [place] [id number] [address] [place] [address] Dec, Toenail fungus B35.1 [facility] [address] [address] Dec, Acute right-sided thoracic b ack pain M54.6 [place] [address] [place] [id number] [address] [place] [address] Dec, Lumbago with sciatica, unspe cified side M54.40 [facility] [address] [place] [id number] [address] [place] [address] Nov, Hammer toe of left foot M20. 42 ; Deformity of left foot M21.962 and Type 2 diabetes mellitus with diabetic neuropathy, without long-term current use of insulin E11.40 [facility] [address] [facility] [id number] [address] [place] [address] Nov, Acute right-sided thoracic b ack pain M54.6 ; Morbid obesity E66.01 and Rt flank pain R10.9 [place] [address] [facility] [id number] [address] [place] [address] Nov, Lumbago with sciatica, unspe cified side M54.40 [place] [address] [place] [id number] [address] [place] [address] Oct, Lumbago with sciatica, unspe cified side M54.40 [place] [address] [place] [id number] [place] [address] Sep, Lumbago with sciatica, unspe cified side M54.40 [place] [address] [place] [id number] [address] [place] [address] Sep, [place] [address] [place] [id number] [place] [address] Sep, BMI 40.0-44.9, adult Z68.41 ; Lumbago with sciatica, left side M54.42 ; Lumbago with sciatica, right side M54.41 and Other chronic pain G89.29 [place] [address] [address] [place] [id number] [address] [place] [address] Aug, Lumbago with sciatica, unspe cified side M54.40 [place] [address] [place] [id number] [address] [place] [address] Aug, Type 2 diabetes mellitus wit h diabetic neuropathy, without long- term current use of insulin E11.40 ; Hammer toe of left foot M20.42 ; Hypertension, benign I10 and Frequent headaches R51 [place] [address] [place] [id number] [address] [place] [address] Jul, Lumbago with sciatica, unspe cified side M54.40 [place] [address] [place] [id number] [address] [place] [address] Jul, [place] [address] [place] [id number] [address] [place] [address] Jul, Essential hypertension I10 a nd Controlled type 2 diabetes mellitus without complication, without long-term current use of insulin E11.9 [facility] [address] [facility] [id number] [address] [place] [address] Jul, Essential hypertension I10 ; Controlled type 2 diabetes mellitus without complication, without long-term current use of insulin E11.9 and BMI 40.0-44.9, adult Z68.41 [facility] [address] [facility] [id number] [address] [place] [address] Jul, Dysfunction of left eustachi an tube H69.82 [facility] [address] [id number] [address] [place] [address] Jul, Lumbago with sciatica, unspe cified side M54.40 [facility] [address] [id number] [address] [place] [address] [id number] Jun, Dental examination Z01.20 [facility] [address] [facility] [id number] [address] [place] [address] Jun, Lumbago with sciatica, unspe cified side M54.40 and Encounter for immunization Z23 [facility] [address] [facility] [id number] [address] [place] [address] Jun, Dysfunction of left eustachi an tube H69.82 [place] [id number] [facility] [id number] [place] [address] [id number] Jun, Dental examination Z01.20 [facility] [address] [id number] [address] [place] [address] Jun, Other chronic pain G89.29 [facility] [address] [id number] [address] [place] [address] [id number] Jun, Dental examination Z01.20 [facility] [address] [id number] [address] [place] [address] Jun, [facility] [address] [id number] [address] [place] [address] Jun, Bronchitis J40 ; Dysfunction of left eustachian tube H69.82 and BMI 45.0-49.9, adult Z68.42 [facility] [address] [place] [id number] [address] [place] [address] Jun, Lumbago with sciatica, unspe cified side M54.40 [facility] [address] [place] [id number] [address] [place] [address] May, Type 2 diabetes mellitus wit h diabetic neuropathy, without long- term current use of insulin E11.40 and Hypertension, benign I10 [facility] [address] [place] [id number] [address] [place] [address] May, Lumbago with sciatica, unspe cified side M54.40 [facility] [address] [place] [id number] [address] [place] [address] Apr, [facility] [address] [address] Apr, Controlled type 2 diabetes m ellitus without complication, without long-term current use of insulin E11.9 ; Insect bite (nonvenomous), right ankle, initial encounter S90.561A ; Local infection of the skin and subcutaneous tissue, unspecified L08.9 ; Acute swimmer''s ear of left side H60.332 and BMI 45.0-49.9, adult Z68.42 [place] [address] [place] [id number] [address] [place] [address] Apr, Lumbago with sciatica, unspe cified side M54.40 [facility] [address] [place] [id number] [address] [place] [address] Mar, [place] [address] [place] [id number] [place] [address] Mar, Lumbago with sciatica, unspe cified side M54.40 [facility] [address] [place] [id number] [address] [place] [address] Feb, Lumbago with sciatica, unspe cified side M54.40 [facility] [address] [facility] [id number] [address] [place] [address] Feb, BMI 45.0-49.9, adult Z68.42 and Obstructive sleep apnea syndrome G47.33 [place] [address] [place] [id number] [address] [place] [address] January, Lumbar neuritis M54.16 [place] [address] [facility] [id number] [address] [place] [address] January, Lumbago with sciatica, unspe cified side M54.40 [place] [address] [place] [id number] [place] [address] Dec, Controlled type 2 diabetes m maribell without complication, without long-term current use of insulin E11.9 ; Erectile dysfunction due to diseases classified elsewhere N52.1 and Mood disorder F39 [place] [address] [place] [id number] [address] [place] [address] Dec, Lumbago with sciatica, unspe cified side M54.40 [place] [address] [place] [id number] [address] [place] [address] Dec, Obstructive sleep apnea synd luis G47.33 [place] [address] [place] [id number] [address] [place] [address] Nov, Lumbago with sciatica, unspe cified side M54.40 ; Hypertension, benign I10 and Mood disorder F39 [facility] [address] [place] [id number] [address] [place] [address] Nov, Other chronic pain G89.29 [facility] [address] [facility] [id number] [address] [place] [address] Nov, Lumbago with sciatica, unspe cified side M54.40 [facility] [address] [id number] [address] [place] [address] [id number] Nov, Dental examination Z01.20 [facility] [address] [facility] [id number] [address] [place] [address] Oct, [facility] [address] [facility] [id number] [address] [place] [address] Oct, Lumbago with sciatica, unspe cified side M54.40 [facility] [address] [facility] [id number] [address] [place] [address] Oct, Lumbago with sciatica, unspe cified side M54.40 [facility] [address] [facility] [id number] [address] [place] [address] Oct, [facility] [address] [facility] [id number] [address] [place] [address] Oct, [facility] [address] [facility] [id number] [address] [place] [id number] Oct, Dental examination Z01.20 [facility] [address] [facility] [id number] [address] [place] [address] Oct, [facility] [address] [facility] [id number] [address] [place] [address] Oct, Pain in right knee M25.561 [facility] [address] [facility] [id number] [address] [place] [address] Sep, [facility] [address] [facility] [id number] [address] [place] [address] Sep, Other chronic pain G89.29 [facility] [address] [facility] [id number] [address] [place] [address] Sep, Lumbago with sciatica, unspe cified side M54.40 [facility] [address] [facility] [id number] [address] [place] [address] Sep, [facility] [address] [facility] [id number] [address] [place] [address] Sep, Viral URI J06.9 and BMI 45.0 -49.9, adult Z68.42 [facility] [address] [facility] [id number] [address] [place] [address] Aug, Foreign body hand S60.559A a nd BMI 45.0-49.9, adult Z68.42 [facility] [address] [facility] [id number] [address] [place] [address] Aug, [facility] [address] [place] [id number] [address] [place] [address] Aug, Lumbago with sciatica, unspe cified side M54.40 [facility] [address] [facility] [id number] [address] [place] [address] Aug, Vertigo R42 ; Dysfunction of both eustachian tubes H69.83 ; Low back pain M54.5 and Other chronic pain G89.29 [facility] [address] [facility] [id number] [address] [place] [address] Aug, Dizziness R42 and Acute bila teral otitis media H66.93 [facility] [address] [facility] [id number] [address] [place] [address] Aug, Lumbago with sciatica, unspe cified side M54.40 [facility] [address] [facility] [id number] [address] [place] [address] [id number] Jul, Dental examination Z01.20 [facility] [address] [place] [id number] [address] [place] [address] Jul, [facility] [address] [facility] [id number] [address] [place] [address] Jul, [facility] [address] [facility] [id number] [address] [place] [address] Jul, Dysfunction of both eustachi an tubes H69.83 [facility] [address] [facility] [id number] [address] [place] [address] 07 Jul, 2017 Controlled type 2 diabetes m taraitus without complication, without long-term current use of insulin E11.9 [facility] [address] [id number] [address] [place] [address] Jul, Controlled type 2 diabetes m ellitus without complication, without long-term current use of insulin E11.9 [facility] [address] [id number] [address] [place] [address] Jul, Dizziness R42 and BMI 40.0-4 4.9, adult Z68.41 [facility] [address] [facility] [id number] [address] [place] [address] Jul, Controlled type 2 diabetes m ellitus without complication, without long-term current use of insulin E11.9 [facility] [address] [facility] [id number] [address] [place] [address] Jul, Lumbago with sciatica, unspe cified side M54.40 [facility] [address] [id number] [place] [address] [id number] Jul, Dental examination Z01.20 [facility] [address] [id number] [address] [place] [address] Jun, [facility] [address] [id number] [place] [id number] Jun, Dental examination Z01.20 [facility] [address] [facility] [id number] [address] [place] [address] Jun, Controlled type 2 diabetes m ellitus without complication, without long-term current use of insulin E11.9 [facility] [address] [id number] [address] [place] [address] Jun, Lumbago with sciatica, unspe cified side M54.40 [facility] [address] [place] [id number] [place] [address] [id number] May, Dental examination Z01.20 [facility] [address] [id number] [address] [place] [address] May, Controlled type 2 diabetes m ellitus without complication, without long-term current use of insulin E11.9 [facility] [address] [id number] [address] [place] [address] [id number] 19 May, 2017 Dental examination Z01.20 [facility] [address] [facility] [id number] [address] [place] [phone] 18 May, 2017 Bronchitis J40 ; Dry mouth R 68.2 ; Non morbid obesity E66.9 and Controlled type 2 diabetes mellitus without complication, without long-term current use of insulin E11.9 [facility] [address] [facility] [id number] [address] [place] [phone] 16 May, 2017 Encounter for immunization Z [address] [facility] [id number] [place] [phone] 07 May, 2017 Lumbago with sciatica, unspe cified side M54.40 [facility] [address] [facility] [id number] [address] [place] [phone] 05 May, 2017 [facility] [address] [id number] [place] [address] [id number] Apr, Dental examination Z01.20 [facility] [address] [id number] [address] [place] [phone] Apr, Lumbago with sciatica, unspe cified side M54.40 [facility] [address] [facility] [id number] [address] [place] [id number] Mar, Lumbago with sciatica, left side M54.42 [facility] [address] [facility] [id number] [address] [place] [phone] Mar, [facility] [address] [facility] [id number] [address] [place] [phone] Mar, Lumbar neuritis M54.16 [facility] [address] [facility] [id number] [address] [place] [address] Mar, [facility] [address] [id number] [address] [place] [address] [id number] Mar, Dental examination Z01.20 [place] [address] [address] [facility] [id number] [address] [place] [id number] Mar, MELE (obstructive sleep apnea ) G47.33 ; Neuropathy involving both lower extremities G57.93 and Frequent headaches R51 [place] [address] [address] [facility] [id number] [address] [place] [address] Mar, Lumbago with sciatica, unspe cified side M54.40 [place] [address] [address] [place] [id number] [address] [place] [address] Feb, Lumbago with sciatica, unspe cified side M54.40 and Controlled type 2 diabetes mellitus without complication, without long-term current use of insulin E11.9 [place] [address] [address] [place] [id number] [place] [address] January, Hypertension, benign I10 and Bilateral low back pain with sciatica, sciatica laterality unspecified M54.40 [place] [address] [address] [place] [id number] [place] [address] January, Hypertension, benign I10 ; L umbago with sciatica, unspecified side M54.40 ; Other chronic pain G89.29 and Controlled type 2 diabetes mellitus without complication, without long-term current use of insulin E11.9 [place] [address] [address] [place] [id number] [address] [place] [address] January, Lumbar neuritis M54.16 [place] [address] [address] [place] [id number] [address] [place] [address] January, [place] [address] [address] [place] [id number] [address] [place] [address] Dec, Lumbago with sciatica, right side M54.41 and Lumbar neuritis M54.16 [place] [address] [address] [place] [id number] [address] [place] [address] Dec, Lumbar neuritis M54.16 [place] [address] [address] [place] [id number] [address] [place] [address] Dec, Lumbar neuritis M54.16 [place] [place] [id number] [address] [place] [address] Nov, Lumbar neuritis M54.16 ; Lum bago with sciatica, right side M54.41 ; Controlled type 2 diabetes mellitus without complication, without long-term current use of insulin E11.9 and Rash and nonspecific skin eruption R21 [place] [address] [address] [place] [id number] [address] [place] [address] Nov, Lumbar neuritis M54.16 and P derickpeter miroslava L23.7 [place] [address] [address] [place] [id number] [address] [place] [address] Oct, Lumbar neuritis M54.16 ; Cou ghing R05 and Mood disorder F39 [place] [address] [address] [place] [id number] [address] [place] [address] Sep, Lumbago with sciatica, right side M54.41 [place] [address] [address] [place] [id number] [address] [place] [address] Sep, Adjustment disorder with dis turbance of emotion F43.29 and Pain management R52 [place] [address] [address] [place] [id number] [address] [place] [address] Sep, [place] [address] [address] [place] [id number] [address] [place] [address] Sep, [place] [address] [address] [place] [id number] [address] [place] [address] Sep, Controlled type 2 diabetes evens reyna without complication, without long-term current use of insulin E11.9 and Lumbago with sciatica, unspecified side M54.40 [place] [address] [address] [place] [id number] [address] [place] [address] Aug, Controlled type 2 diabetes evens reyna without complication, without long-term current use of insulin E11.9 ; Pain in right knee M25.561 ; Pain in left knee M25.562 ; Other chronic pain G89.29 ; Lumbago with sciatica, right side M54.41 ; Neck pain M54.2 and Encounter for immunization Z23 [facility] [address] [id number] [address] [place] [address] Jul, [facility] [address] [id number] [address] [place] [address] Jul, Controlled type 2 diabetes m maribell without complication, without long-term current use of insulin E11.9 [facility] [address] [id number] [address] [place] [address] Jul, [facility] [address] [id number] [address] [place] [address] Jul, [facility] [address] [id number] [address] [place] [address] Jul, Lumbago with sciatica, left side M54.42 ; Lumbago with sciatica, right side M54.41 and Other chronic pain G89.29 [facility] [address] [id number] [address] [place] [address] Jul, [facility] [address] [id number] [address] [place] [address] Jul, [facility] [address] [id number] [address] [place] [address] Jun, [facility] [address] [id number] [address] [place] [address] Jun, Lumbago with sciatica, right side M54.41 and Other chronic pain G89.29 [facility] [address] [id number] [address] [place] [address] Jun, Cervicalgia M54.2 ; Lumbago with sciatica, unspecified side M54.40 and Other chronic pain G89.29 [facility] [address] [id number] [address] [place] [address] 15 May, 2016 Pain in right knee M25.561 ; Pain in left knee M25.562 and Other chronic pain G89.29 [facility] [address] [id number] [address] [place] [address] May, [facility] [address] [id number] [address] [place] [address] Apr, Other chronic pain G89.29 an d Pain in right knee M25.561 [facility] [address] [id number] [address] [place] [address] Apr, Pain in right knee M25.561 [facility] [address] [id number] [address] [place] [id number] Mar, [facility] [address] [id number] [address] [place] [address] Mar, Mood disorder F39 and Contro lled type 2 diabetes mellitus without complication, without long-term current use of insulin E11.9 [facility] [address] [id number] [address] [place] [address] Mar, Pain in right knee M25.561 ; Pain in left knee M25.562 ; Other chronic pain G89.29 ; Obstructive sleep apnea syndrome G47.33 ; Mood disorder F39 and Controlled type 2 diabetes mellitus without complication, without long- term current use of insulin E11.9 [facility] [address] [id number] [address] [place] [address] Mar, [facility] [address] [id number] [address] [place] [address] [id number] Feb, Dental examination Z01.20 [facility] [address] [id number] [address] [place] [address] Feb, [facility] [address] [id number] [address] [place] [address] Feb, Osteoarthritis of right knee , unspecified osteoarthritis type M17.9 [facility] [address] [id number] [address] [place] [address] January, [facility] [address] [id number] [address] [place] [address] [id number] January, Dental examination Z01.20 [facility] [address] [id number] [address] [place] [address] January, [facility] [address] [id number] [address] [place] [address] [id number] January, Dental examination Z01.20 an d Caries K02.9 [facility] [address] [id number] [address] [place] [address] Dec, Encounter for other preproce dural examination Z01.818 [facility] [address] [id number] [address] [place] [address] Dec, [facility] [address] [id number] [address] [place] [address] Dec, Knee pain M25.569 [facility] [address] [id number] [address] [place] [address] Dec, Pain in right knee M25.561 [facility] [address] [id number] [address] [place] [address] Dec, [facility] [address] [id number] [address] [place] [address] Dec, [facility] [address] [id number] [address] [place] [address] Dec, Encounter for immunization Z 23 [facility] [address] [id number] [address] [place] [address] Dec, [facility] [address] [id number] [address] [place] [address] Dec, [facility] [address] [id number] [address] [place] [id number] Nov, [facility] [address] [id number] [address] [place] [address] Nov, Hypertension, benign I10 ; C ervicalgia M54.2 ; Pain in right knee M25.561 and Pain in left knee M25.562 [place] [address] [facility] [id number] [address] [place] [address] Oct, [facility] [address] [facility] [id number] [address] [place] [address] Oct, [facility] [address] [facility] [id number] [address] [place] [address] Oct, Osteoarthritis of both knees M17.0 [place] [address] [address] [facility] [id number] [address] [place] [address] Oct, [place] [address] [address] [facility] [id number] [address] [place] [address] Oct, Low back pain M54.5 [place] [address] [address] [facility] [id number] [address] [place] [address] Oct, Low back pain M54.5 ; Sciati ca, unspecified side M54.30 ; Pain in right knee M25.561 ; Pain in left knee M25.562 ; Pain in right shoulder M25.511 and Pain in left shoulder M25.512 [place] [address] [address] [facility] [id number] [address] [place] [address] Oct, [place] [address] [address] [facility] [id number] [address] [place] [address] Sep, Pain in right hip M25.551 [place] [address] [address] [facility] [id number] [address] [place] [id number] Sep, Acute upper respiratory infe ction, unspecified J06.9 [place] [address] [address] [facility] [id number] [address] [place] [address] Aug, Acute upper respiratory infe ction, unspecified J06.9 and Other viral agents as the cause of diseases classified elsewhere B97.89 [place] [address] [address] [facility] [id number] [address] [place] [address] Jul, Arthritis M19.90 [facility] [address] [id number] [address] [place] [address] Jun, Arthritis M19.90 ; Pain in r ight hip M25.551 ; Pain in left hip M25.552 ; Bilateral low back pain with sciatica, sciatica laterality unspecified M54.40 ; Neck pain M54.2 ; Upper back pain M54.9 and Knee pain, unspecified laterality M25.569 [facility] [address] [id number] [address] [place] [address] May, Osteoarthritis of both knees 715.96 [facility] [address] [id number] [address] [place] [address] May, Rash 782.1 [facility] [address] [id number] [address] [place] [address] Apr, Lumbar strain 847.2 [facility] [address] [id number] [address] [place] [address] Apr, Rash 782.1 [facility] [address] [id number] [address] [place] [address] Mar, Rash 782.1 [facility] [address] [facility] [id number] [address] [place] [address] Feb, Rash 782.1 ; Hemorrhoids 455 .6 and Constipation 564.00 [facility] [address] [id number] [address] [place] [address] Feb, Osteoarthritis of both knees 715.96 [facility] [address] [id number] [address] [place] [address] January, [facility] [address] [id number] [address] [place] [address] Dec, [facility] [address] [facility] [id number] [address] [place] [phone] Dec, [facility] [address] [id number] [address] [place] [id number] 13 Dec, 2014 [facility] [address] [id number] [address] [place] [address], [place] [address] 18 Nov, 2014 [facility] [address] [id number] [address] [place] [address], [place] [address] 18 Nov, 2014 [facility] [address] [id number] [address] [place] [address], [place] [address] 18 Nov, 2014 [facility] [address] [id number] [address] [place] [address], [place] [address] 18 Nov, 2014 [facility] [address] [id number] [address] [place] [address], [place] [address] Nov, [facility] [address] [id number] [address] [place] [address], [place] [address] Nov, [facility] [address] [id number] [address] [place] [address], [place] [address] Oct, [facility] [address] [id number] [address] [place] [address], [place] [address] Oct, [facility] [address] [id number] [address] [place] [address], [place] [address] Oct, 2014 [facility] [address] [id number] [address] [place] [address], [place] [address] Oct, [facility] [address] [id number] [address] [place] [address], [place] [address] Oct, 2014 [facility] [address] [id number] [address] [place] [address], [place] [address] Oct, 2014 [facility] [address] [id number] [address] [place] [address], [place] [address] Oct, 2014 [facility] [address] [id number] [address] [place] [address], [place] [address] Oct, 2014 [facility] [address] [id number] [address] [place] [address], [place] [address] Oct, [facility] [address] [id number] [address] [place] [address], [place] [address] Oct, [facility] [address] [id number] [address] [place] [address], [place] [address] Oct, [facility] [address] [id number] [address] [place] [address], [place] [address] Sep, [facility] [address] [id number] [address] [place] [address], [place] [address] Sep, [facility] [address] [id number] [address] [place] [address], [place] [address] Sep, [facility] [address] [id number] [address] [place] [address], [place] [address] Sep, [facility] [address] [id number] [address] [place] [address], [place] [address] Sep, [facility] [address] [id number] [address] [place] [address], [place] [address] Sep, [facility] [address] [id number] [address] [place] [address], [place] [address] Aug, [facility] [address] [id number] [address] [place] [address], [place] [address] Aug, [facility] [address] [id number] [address] [place] [address], [place] [address] Aug, [facility] [address] [id number] [address] [place] [address], [place] [address] Aug, [facility] [address] [id number] [address] [place] [address], [place] [address] Aug, [facility] [address] [id number] [address] [place] [address], [place] [address] Aug, [facility] [address] [id number] [address] [place] [address], [place] [address] Aug, [facility] [address] [id number] [address] [place] [address], [place] [address] Aug, [facility] [address] [id number] [address] [place] [address], [place] [address] Aug, [facility] [address] [id number] [address] [place] [address], [place] [address] Aug, [facility] [address] [id number] [address] [place] [address], [place] [address] Jul, [facility] [address] [id number] [address] [place] [address], [place] [address] Jul, [facility] [address] [id number] [address] [place] [address], [place] [address] Jul, [facility] [address] [id number] [address] [place] [address], [place] [address] Jul, [facility] [address] [id number] [address] [place] [address], [place] [address] Jun, [facility] [address] [id number] [address] [place] [address], [place] [address] Jun, [facility] [address] [id number] [address] [place] [address], [place] [address] Jun, [facility] [address] [id number] [address] [place] [address], [place] [address] Jun, [facility] [address] [id number] [address] [place] [address], [place] [address] Jun, [facility] [address] [id number] [address] [place] [address], [place] [address] Jun, [facility] [address] [id number] [address] [place] [address], [place] [address] Jun, [facility] [address] [id number] [address] [place] [address], [place] [address] Jun, [facility] [address] [id number] [address] [place] [address], [place] [address] May, [facility] [address] [id number] [facility] [place] [address] 24 May, 2013 [facility] [address] [id number] [facility] [place] [address] 19 May, 2014 [facility] [address] [id number] [facility] [place] [address] 19 May, 2013 [facility] [address] [id number] [address] [place] [address], [place] [address] 15 May, 2014 [facility] [address] [id number] [address] [place] [address], [place] [address] 15 May, 2014 [facility] [address] [id number] [address] [place] [address], [place] [address] 15 May, 2014 [facility] [address] [id number] [address] [place] [address], [place] [address] May, [facility] [address] [id number] [address] [place] [address], [place] [address] Apr, [facility] [address] [id number] [address] [place] [address], [place] [address] Apr, [facility] [address] [id number] [address] [place] [address], [place] [address] Apr, [facility] [address] [id number] [address] [place] [address], [place] [address] Apr, [facility] [address] [id number] [address] [place] [address], [place] [address] Apr, [facility] [address] [id number] [address] [place] [address], [place] [address] Apr, [facility] [address] [id number] [address] [place] [address], [place] [address] Apr, [facility] [address] [id number] [address] [place] [address], [place] [address] Apr, [facility] [address] [id number] [address] [place] [address], [place] [address] Apr, [facility] [address] [id number] [address] [place] [address], [place] [address] Apr, [facility] [address] [id number] [address] [place] [address], [place] [address] Apr, [facility] [address] [id number] [address] [place] [address], [place] [address] Apr, [facility] [address] [id number] [address] [place] [address], [place] [address] Mar, [facility] [address] [id number] [address] [place] [address], [place] [address] Mar, [facility] [address] [id number] [address] [place] [address], [place] [address] Mar, [facility] [address] [id number] [address] [place] [address], [place] [address] Mar, [facility] [address] [id number] [address] [place] [address], [place] [address] Mar, [facility] [address] [id number] [address] [place] [address], [place] [address] Mar, [facility] [address] [id number] [address] [place] [address], [place] [address] Feb, [facility] [address] [id number] [address] [place] [address], [place] [address] Feb, [facility] [address] [id number] [address] [place] [address], [place] [address] Feb, [facility] [address] [id number] [address] [place] [address], [place] [address] Feb, [facility] [address] [id number] [address] [place] [address], [place] [address] Feb, [facility] [address] [id number] [address] [place] [address], [place] [address] Feb, [facility] [address] [id number] [facility] [place] [address] Feb, [facility] [address] [id number] [address] [place] [address], [place] [address] Feb, [facility] [address] [id number] [address] [place] [address], [place] [address] Feb, [facility] [address] [id number] [address] [place] [address], [place] [address] Feb, [facility] [address] [id number] [address] [place] [address], [place] [address] Feb, [facility] [address] [id number] [address] [place] [address], [place] [address] Feb, [facility] [address] [id number] [address] [place] [address], [place] [address] Feb, [facility] [address] [id number] [address] [place] [address], [place] [address] Feb, [facility] [address] [id number] [address] [place] [address], [place] [address] January, [facility] [address] [id number] [address] [place] [address], [place] [address] January, [facility] [address] [id number] [address] [place] [address], [place] [address] January, [facility] [address] [id number] [address] [place] [address], [place] [address] January, [facility] [address] [id number] [address] [place] [address], [place] [address] January, [facility] [address] [id number] [address] [place] [address], [place] [address] January, [facility] [address] [id number] [address] [place] [address], [place] [address] Dec, [facility] [address] [id number] [address] [place] [address], [place] [address] Dec, [facility] [address] [id number] [address] [place] [address], [place] [address] Dec, [facility] [address] [id number] [address] [place] [address], [place] [address] Dec, [facility] [address] [id number] [address] [place] [address], [place] [address] Dec, [facility] [address] [id number] [address] [place] [address], [place] [address] Dec, [facility] [address] [id number] [address] [place] [address], [place] [address] Dec, [facility] [address] [id number] [address] [place] [address], [place] [address] Dec, [facility] [address] [id number] [address] [place] [address], [place] [address] Nov, [facility] [address] [id number] [address] [place] [address], [place] [address] Nov, [facility] [address] [id number] [address] [place] [address], [place] [address] Nov, [facility] [address] [id number] [address] [place] [address], [place] [address] Nov, [facility] [address] [id number] [address] [place] [address], [place] [address] Nov, [facility] [address] [id number] [address] [place] [address], [place] [address] Nov, [facility] [address] [id number] [address] [place] [address], [place] [address] Nov, [facility] [address] [id number] [address] [place] [address], [place] [address] Nov, [facility] [address] [id number] [address] [place] [address], [place] [address] Oct, [facility] [address] [id number] [address] [place] [address], [place] [address] Oct, [facility] [address] [id number] [address] [place] [address], [place] [address] Oct, [facility] [address] [id number] [address] [place] [address], [place] [address] Oct, [facility] [address] [id number] [address] [place] [address], [place] [address] Oct, [facility] [address] [id number] [address] [place] [address], [place] [address] Oct, [facility] [address] [id number] [address] [place] [address], [place] [address] Oct, [facility] [address] [id number] [address] [place] [address], [place] [address] Oct, [facility] [address] [id number] [address] [place] [address], [place] [address] Oct, [facility] [address] [id number] [address] [place] [address], [place] [address] Oct, [facility] [address] [id number] [address] [place] [address], [place] [address] Sep, [facility] [address] [id number] [address] [place] [address], [place] [address] Sep, [facility] [address] [id number] [address] [place] [address], [place] [address] Sep, [facility] [address] [id number] [address] [place] [address], [place] [address] Sep, [facility] [address] [id number] [address] [place] [address], [place] [address] Sep, [facility] [address] [id number] [address] [place] [address], [place] [address] Sep, [facility] [address] [id number] [address] [place] [address], [place] [address] Aug, [facility] [address] [id number] [address] [place] [address], [place] [address] Aug, [facility] [address] [id number] [address] [place] [address], [place] [address] Aug, [facility] [address] [id number] [address] [place] [address], [place] [address] Aug, [facility] [address] [id number] [address] [place] [address], [place] [address] Aug, [facility] [address] [id number] [address] [place] [address], [place] [address] Aug, [facility] [address] [id number] [address] [place] [address], [place] [address] Aug, [facility] [address] [id number] [address] [place] [address], [place] [address] Aug, [facility] [address] [id number] [address] [place] [address], [place] [address] Jul, [facility] [address] [id number] [address] [place] [address], [place] [address] Jul, [facility] [address] [id number] [address] [place] [address], [place] [address] Jul, [facility] [address] [id number] [address] [place] [address], [place] [address] Jul, [facility] [address] [id number] [address] [place] [address] Jul, [facility] [address] [id number] [address] [place] [address], [place] [address] Jul, [facility] [address] [id number] [address] [place] [address], [place] [address] Jun, [facility] [address] [id number] [address] [place] [address], [place] [address] Jun, [facility] [address] [id number] [address] [place] [address] [place] [address] Jun, [facility] [address] [id number] [address] [place] [address], [place] [address] 24 May, 2013 [facility] [address] [id number] [address] [place] [address], [place] [address] May, [facility] [address] [id number] [address] [place] [address], [place] [address] May, [facility] [address] [id number] [address] [place] [address], [place] [address] Apr, [facility] [address] [id number] [address] [place] [address], [place] [address] Apr, [facility] [address] [id number] [address] [place] [address], [place] [address] Apr, [facility] [address] [id number] [address] [place] [address], [place] [address] Apr, [facility] [address] [id number] [address] [place] [address], [place] [address] Mar, [facility] [address] [id number] [address] [place] [address], [place] [address] Mar, [facility] [address] [id number] [address] [place] [address], [place] [address] Mar, [facility] [address] [id number] [address] [place] [address], [place] [address] Mar, [facility] [address] [id number] [address] [place] [address], [place] [address] Feb, [facility] [address] [id number] [address] [place] [address], [place] [address] Feb, [facility] [address] [id number] [address] [place] [address], [place] [address] Feb, [facility] [address] [id number] [address] [place] [address], [place] [address] Feb, [facility] [address] [id number] [address] [place] [address], [place] [address] January, [facility] [address] [id number] [address] [place] [address], [place] [address] January, [facility] [address] [id number] [address] [place] [address], [place] [address] January, [facility] [address] [id number] [address] [place] [address], [place] [address] Nov, [facility] [address] [id number] [address] [place] [address], [place] [address] Nov, [facility] [address] [id number] [address] [place] [address], [place] [address] Oct, [facility] [address] [id number] [address] [place] [address], [place] [address] Oct, [facility] [address] [id number] [address] [address], [place] [address] Oct, [facility] [address] [id number] [address] [place] [address], [place] [address] Oct, [facility] [address] [id number] [address] [place] [address], [place] [address] Sep, [facility] [address] [id number] [address] [place] [address], [place] [address] Sep, [facility] [address] [id number] [address] [place] [address], [place] [address] Sep, [facility] [address] [id number] [address] [address], [place] [address] Aug, [facility] [address] [id number] [address] [address], [place] [address] Aug, [facility] [address] [id number] [address] [place] [address], [place] [address] Aug, [facility] [address] [id number] [address] [place] [address], [place] [address] Aug, [facility] [address] [id number] [address] [place] [address], [place] [address] Aug, [facility] [address] [id number] [address] [place] [address], [place] [address] Aug, [facility] [address] [id number] [address] [place] [address], [place] [address] Jul, [facility] [address] [id number] [address] [place] [address], [place] [address] Jul, [facility] [address] [id number] [address] [place] [address], [place] [address] Jun, [facility] [address] [id number] [address] [place] [address], [place] [address] Jun, [facility] [address] [id number] [address] [place] [address], [place] [address] Jun, [facility] [address] [id number] [address] [place] [address], [place] [address] Apr, [facility] [address] [id number] [address] [address], [place] [address] Apr, [facility] [address] [id number] [address] [place] [address], [place] [address] Mar, [facility] [address] [id number] [address] [address], [place] [address] Mar, [facility] [address] [id number] [address] [place] [address] Mar, [facility] [address] [id number] [address] [address], [place] [address] Mar, [facility] [address] [id number] [address] [address], [place] [address] Feb, [facility] [address] [id number] [address] [address], [place] [address] Feb, [facility] [address] [id number] [address] [address], [place] [address] Feb, [facility] [address] [id number] [address] [place] [address], [place] [address] January, [facility] [address] [id number] [address] [address], [place] [address] January, [facility] [address] [id number] [address] [place] [address], [place] [address] January, [facility] [address] [id number] [address] [place] [address], [place] [address] January, [facility] [address] [id number] [address] [address], [place] [address] Dec, [facility] [address] [id number] [address] [place] [address], [place] [address] Dec, [facility] [address] [id number] [address] [place] [address], [place] [address] Nov, [facility] [address] [id number] [address] [place] [address], [place] [address] Nov, [facility] [address] [id number] [address] [address], [place] [address] 16 Oct, 2011 [facility] [address] [id number] [address] [address], [place] [address] Oct, [facility] [address] [id number] [address] [address], [place] [address] Sep, [facility] [address] [id number] [address] [address], [place] [address] Sep, [facility] [address] [id number] [address] [address], [place] [address] Sep, [facility] [address] [id number] [address] [address], [place] [address] Sep, [facility] [address] [id number] [address] [address], [place] [address] Aug, [facility] [address] [id number] [address] [place] [address] 16 Aug, 2011 [facility] [address] [id number] [address] [place] [address] Aug, [facility] [address] [id number] [address] [place] [address] Jul, [facility] [address] [id number] [address] [place] [address] Aug, [facility] [address] [id number] [address] [address], [place] [address] Aug, [facility] [address] [id number] [address] [place] [address] Aug, [facility] [address] [id number] [address] [place] [address] Aug, [facility] [address] [id number] [address] [place] [address] Jul, [facility] [address] [id number] [address] [place] [address] Jul, [facility] [address] [id number] [address] [place] [address] Jul, [facility] [address] [id number] [address] [place] [address] Jun, [facility] [address] [id number] [address] [place] [address] Jun, [facility] [address] [id number] [address] [place] [address] Jun, [facility] [address] [id number] [address] [place] [id number] Apr, [facility] [address] [id number] [address] [place] [id number] Mar, IMMUNIZATIONS No Known Immunizations SOCIAL HISTORY Never Assessed REASON FOR VISIT PLAN OF CARE VITAL SIGNS Height 66 in 2014-08-14 Weight 261.38 lbs 2014-08-14 Temperature 97.3 degrees Fahrenheit 2014-08-14 Heart Rate 80 bpm 2014-08-14 Respiratory Rate 20 2014-08-14 Blood pressure systolic 140 mmHg 2014-08-14 Blood pressure diastolic 92 mmHg 2014-08-14 MEDICATIONS No Known Medications RESULTS No Results [...]
--- OUTSIDE RECORDS SUMMARY | 2020-03-18 15:01 | XMS REPORT ---
Author Author George Marx Doctor Organization [facility] Address Unknown Phone Unavailable Care Team Providers Care Soap Worker Name Role Phone Migration, Doctor Unavailable Unavailable PROBLEMS Type Condition ICD9-CM Code QNX88-OK Code Onset Dates Condition S tatus SNOMED Code Problem Hypertension, benign I10 Active 67190673 Problem Other chronic pain G89.29 Active 8 2127156 Problem Lumbago with sciatica, unspecified side M54.40 Active 622922001 Problem Controlled type 2 diabetes m ellitus without complication, without long- term current use of insulin E11.9 Active 624925673 Problem Lumbago with sciatica, right side M54.41 Active 359169130 Problem Adjustment disorder with disturbance of emotion F4 3.29 Active 00354926 Problem MELE (obstructive sleep apnea) G47.33 Active 63222720 Problem Non morbid obesity E66.9 Active 4 81360257 Problem Hammer toe of left foot M20.42 Active 034575406 Problem Mood disorder F39 Active 942799 05 Problem Deformity of left foot M21.962 Active 282696176 Problem Lumbago with sciatica, left side M54.42 Active 458517975 Problem Erectile dysfunction due to diseases classified elsewhere N52.1 Active 723940447 Problem Obstructive sleep apnea syndrome G47.33 Active 61942835 Problem Type 2 diabetes mellitus wit h diabetic neuropathy, without long-term current use of insulin E11.40 Active 57659 006 Problem Essential hypertension I10 Active [id number] ALLERGIES No Information ENCOUNTERS Encounter Location Date Diagnosis [facility] [address] [facility] [id number] [address] [place] [address] Dec, Acute diffuse otitis externa of left ear H60.312 [facility] [address] [facility] [id number] [address] [place] [address] 18 Nov, 2019 Viral URI J06.9 and Flu-like symptoms R68.89 [facility] [address] [facility] [id number] [address] [place] [address] Nov, Type 2 diabetes mellitus wit h diabetic neuropathy, without long- term current use of insulin E11.40 ; Family history of prostate cancer Z80.42 and Prostate cancer screening Z12.5 [facility] [address] [place] [id number] [address] [place] [address] Nov, [facility] [address] [place] [id number] [address] [place] [address] Sep, [facility] [address] [place] [id number] [address] [place] [address] Aug, [facility] [address] [place] [id number] [place] [address] Jul, Lumbago with sciatica, unspe cified side M54.40 [facility] [address] [place] [id number] [place] [address] Jun, Lumbago with sciatica, unspe cified side M54.40 [facility] [address] [place] [id number] [place] [address] Jun, URI, acute J06.9 [place] [address] [place] [id number] [place] [address] May, Lumbago with sciatica, unspe cified side M54.40 [facility] [address] [place] [id number] [address] [place] [address] May, [facility] [address] [place] [id number] [place] [address] May, Type 2 diabetes mellitus wit h diabetic neuropathy, without long- term current use of insulin E11.40 and Hammer toe of left foot M20.42 [facility] [address] [place] [id number] [place] [address] May, [facility] [address] [place] [id number] [place] [address] May, [facility] [address] [place] [id number] [place] [address] May, [facility] [address] [facility] [id number] [address] [place] [address] Apr, Lumbago with sciatica, unspe cified side M54.40 [facility] [address] [facility] [id number] [address] [place] [address] Apr, [facility] [address] [facility] [id number] [address] [place] [address] Apr, [id number] [place] [address] Apr, Hammer toe of left foot M20. 42 ; Chest pain R07.9 ; Preoperative examination Z01.818 and Morbid obesity E66.01 [facility] [address] [place] [id number] [address] [place] [address] Apr, Morbid obesity E66.01 ; Bron chitis J40 and High risk medications (not anticoagulants) long-term use Z79.899 [facility] [address] [place] [id number] [address] [place] [address] Apr, Lumbago with sciatica, unspe cified side M54.40 [facility] [address] [facility] [id number] [address] [place] [address] Apr, [facility] [address] [place] [id number] [address] [place] [address] Mar, Lumbar neuritis M54.16 and M orbid obesity E66.01 [facility] [address] [facility] [id number] [address] [place] [address] Mar, [facility] [address] [facility] [id number] [address] [place] [address] Mar, [facility] [address] [facility] [id number] [address] [place] [address] Mar, Lumbago with sciatica, unspe cified side M54.40 [place] [address] [id number] [address] [place] [address] Mar, Morbid obesity E66.01 ; Kassidyg marco R05 ; 2+ pitting edema R60.9 and Controlled type 2 diabetes mellitus without complication, without long-term current use of insulin E11.9 [facility] [address] [id number] [address] [place] [address] Feb, [facility] [address] [id number] [address] [place] [address] Feb, Lumbago with sciatica, unspe cified side M54.40 [facility] [address] [id number] [address] [place] [address] Feb, [facility] [address] [id number] [address] [place] [address] Feb, Controlled type 2 diabetes m ellitus without complication, without long-term current use of insulin E11.9 and Morbid obesity E66.01 [facility] [address] [id number] [address] [place] [address] January, Deformity of left foot M21.9 62 [facility] [address] [id number] [address] [place] [address] January, [facility] [address] [id number] [address] [place] [address] January, Lumbago with sciatica, unspe cified side M54.40 [facility] [address] [id number] [address] [place] [address] January, [facility] [address] [id number] [address] [place] [address] January, Lumbago with sciatica, unspe cified side M54.40 [facility] [address] [id number] [address] [place] [address] January, [facility] [address] [id number] [address] [place] [address] January, Acute right-sided thoracic b ack pain M54.6 [facility] [address] [address] January, Acute right-sided thoracic b ack pain M54.6 [facility] [address] [address] January, Chest pain, unspecified type R07.9 ; Morbid obesity E66.01 and Scabies B86 [facility] [address] [address] Dec, Lumbago with sciatica, unspe cified side M54.40 [place] [address] [address] Dec, Toenail fungus B35.1 [place] [address] [address] Dec, Toenail fungus B35.1 [place] [address] [address] Dec, Acute right-sided thoracic b ack pain M54.6 [place] [address] [place] [id number] [address] [place] [address] Dec, Lumbago with sciatica, unspe cified side M54.40 [place] [address] [address] Nov, Hammer toe of left foot M20. 42 ; Deformity of left foot M21.962 and Type 2 diabetes mellitus with diabetic neuropathy, without long-term current use of insulin E11.40 [facility] [address] [address] Nov, Acute right-sided thoracic b ack pain M54.6 ; Morbid obesity E66.01 and Rt flank pain R10.9 [facility] [address] [place] [id number] [address] [place] [address] Nov, Lumbago with sciatica, unspe cified side M54.40 [place] [address] [place] [id number] [address] [place] [address] Oct, Lumbago with sciatica, unspe cified side M54.40 [place] [address] [address] Sep, Lumbago with sciatica, unspe cified side M54.40 [place] [address] [place] [id number] [address] [place] [address] Sep, [place] [address] [address] Sep, BMI 40.0-44.9, adult Z68.41 ; Lumbago with sciatica, left side M54.42 ; Lumbago with sciatica, right side M54.41 and Other chronic pain G89.29 [place] [address] [place] [id number] [address] [place] [address] Aug, Lumbago with sciatica, unspe cified side M54.40 [place] [address] [address] Aug, Type 2 diabetes mellitus wit h diabetic neuropathy, without long- term current use of insulin E11.40 ; Hammer toe of left foot M20.42 ; Hypertension, benign I10 and Frequent headaches R51 [place] [id number] [place] [address] Jul, Lumbago with sciatica, unspe cified side M54.40 [place] [address] [place] [id number] [address] [place] [address] Jul, [place] [address] [address] Jul, Essential hypertension I10 a nd Controlled type 2 diabetes mellitus without complication, without long-term current use of insulin E11.9 [place] [address] [facility] [id number] [address] [place] [address] Jul, Essential hypertension I10 ; Controlled type 2 diabetes mellitus without complication, without long-term current use of insulin E11.9 and BMI 40.0-44.9, adult Z68.41 [facility] [address] [facility] [id number] [address] [place] [address] Jul, Dysfunction of left eustachi an tube H69.82 [facility] [address] [facility] [id number] [address] [place] [address] Jul, Lumbago with sciatica, unspe cified side M54.40 [facility] [address] [place] [id number] [place] [address] [id number] Jun, Dental examination Z01.20 [facility] [address] [facility] [id number] [address] [place] [address] Jun, Lumbago with sciatica, unspe cified side M54.40 and Encounter for immunization Z23 [facility] [address] [facility] [id number] [address] [place] [address] Jun, Dysfunction of left eustachi an tube H69.82 [place] [id number] [facility] [id number] [place] [id number] Jun, Dental examination Z01.20 [facility] [address] [facility] [id number] [address] [place] [address] Jun, Other chronic pain G89.29 [facility] [address] [facility] [id number] [address] [place] [address] [id number] Jun, Dental examination Z01.20 [facility] [address] [facility] [id number] [address] [place] [address] Jun, [facility] [address] [facility] [id number] [address] [place] [address] Jun, Bronchitis J40 ; Dysfunction of left eustachian tube H69.82 and BMI 45.0-49.9, adult Z68.42 [place] [address] [facility] [id number] [address] [place] [address] Jun, Lumbago with sciatica, unspe cified side M54.40 [place] [address] [facility] [id number] [address] [place] [address] May, Type 2 diabetes mellitus wit h diabetic neuropathy, without long- term current use of insulin E11.40 and Hypertension, benign I10 [place] [address] [place] [address] May, Lumbago with sciatica, unspe cified side M54.40 [facility] [address] [place] [id number] [place] [address] Apr, [place] [address] [place] [id number] [place] [address] Apr, Controlled type 2 diabetes m ellitus without complication, without long-term current use of insulin E11.9 ; Insect bite (nonvenomous), right ankle, initial encounter S90.561A ; Local infection of the skin and subcutaneous tissue, unspecified L08.9 ; Acute swimmer''s ear of left side H60.332 and BMI 45.0-49.9, adult Z68.42 [place] [address] [place] [id number] [place] [address] Apr, Lumbago with sciatica, unspe cified side M54.40 [place] [address] [place] [id number] [place] [address] Mar, [place] [address] [place] [id number] [place] [address] Mar, Lumbago with sciatica, unspe cified side M54.40 [place] [address] [place] [id number] [place] [address] Feb, Lumbago with sciatica, unspe cified side M54.40 [place] [address] [place] [id number] [place] [address] Feb, BMI 45.0-49.9, adult Z68.42 and Obstructive sleep apnea syndrome G47.33 [facility] [address] [place] [address] January, Lumbar neuritis M54.16 [facility] [address] [place] [id number] [place] [address] January, Lumbago with sciatica, unspe cified side M54.40 [facility] [address] [place] [id number] [place] [address] Dec, Controlled type 2 diabetes m ellitus without complication, without long-term current use of insulin E11.9 ; Erectile dysfunction due to diseases classified elsewhere N52.1 and Mood disorder F39 [facility] [address] [place] [id number] [place] [address] Dec, Lumbago with sciatica, unspe cified side M54.40 [facility] [address] [place] [id number] [place] [address] Dec, Obstructive sleep apnea synd luis G47.33 [facility] [address] [place] [id number] [place] [address] Nov, Lumbago with sciatica, unspe cified side M54.40 ; Hypertension, benign I10 and Mood disorder F39 [facility] [address] [place] [id number] [place] [address] Nov, Other chronic pain G89.29 [facility] [address] [place] [id number] [place] [address] Nov, Lumbago with sciatica, unspe cified side M54.40 [facility] [address] [place] [id number] [address] [place] [address] [phone] Nov, Dental examination Z01.20 [facility] [address] [place] [id number] [place] [address] Oct, [facility] [address] [facility] [id number] [address] [place] [address] Oct, Lumbago with sciatica, unspe cified side M54.40 [facility] [address] [facility] [id number] [address] [place] [address] Oct, Lumbago with sciatica, unspe cified side M54.40 [facility] [address] [facility] [id number] [address] [place] [address] Oct, [facility] [address] [facility] [id number] [address] [place] [address] Oct, [facility] [address] [place] [id number] [address] [place] [address] [id number] Oct, Dental examination Z01.20 [facility] [address] [place] [id number] [place] [address] Oct, [facility] [address] [place] [id number] [place] [address] Oct, Pain in right knee M25.561 [facility] [address] [place] [id number] [place] [address] Sep, [facility] [address] [facility] [id number] [address] [place] [address] Sep, Other chronic pain G89.29 [facility] [address] [facility] [id number] [address] [place] [address] Sep, Lumbago with sciatica, unspe cified side M54.40 [facility] [address] [facility] [id number] [address] [place] [address] Sep, [facility] [address] [place] [id number] [place] [address] Sep, Viral URI J06.9 and BMI 45.0 -49.9, adult Z68.42 [facility] [address] [facility] [id number] [place] [address] Aug, Foreign body hand S60.559A a nd BMI 45.0-49.9, adult Z68.42 [place] [id number] [address] Aug, [place] [address] [address] Aug, Lumbago with sciatica, unspe cified side M54.40 [facility] [address] [address] Aug, Vertigo R42 ; Dysfunction of both eustachian tubes H69.83 ; Low back pain M54.5 and Other chronic pain G89.29 [facility] [address] [address] Aug, Dizziness R42 and Acute bila teral otitis media H66.93 [place] [address] [place] [id number] [place] [address] Aug, Lumbago with sciatica, unspe cified side M54.40 [facility] [address] [place] [id number] [place] [id number] Jul, Dental examination Z01.20 [place] [address] [place] [id number] [place] [address] Jul, [place] [address] [place] [id number] [place] [address] Jul, [place] [address] [place] [id number] [place] [address] Jul, Dysfunction of both eustachi an tubes H69.83 [place] [address] [place] [id number] [place] [address] 07 Jul, 2017 Controlled type 2 diabetes m taraitus without complication, without long-term current use of insulin E11.9 [place] [address] [place] [id number] [place] [address] Jul, Controlled type 2 diabetes m ellitus without complication, without long-term current use of insulin E11.9 [facility] [address] [facility] [id number] [address] [place] [address] Jul, Dizziness R42 and BMI 40.0-4 4.9, adult Z68.41 [facility] [address] [facility] [id number] [address] [place] [address] Jul, Controlled type 2 diabetes m ellitus without complication, without long-term current use of insulin E11.9 [facility] [address] [id number] [address] [place] [address] Jul, Lumbago with sciatica, unspe cified side M54.40 [facility] [address] [id number] [place] [address] [id number] Jul, Dental examination Z01.20 [facility] [address] [id number] [address] [place] [address] Jun, [facility] [address] [id number] [place] [address] [phone] Jun, Dental examination Z01.20 [facility] [address] [id number] [address] [place] [address] Jun, Controlled type 2 diabetes m ellitus without complication, without long-term current use of insulin E11.9 [facility] [address] [id number] [address] [place] [address] Jun, Lumbago with sciatica, unspe cified side M54.40 [facility] [address] [id number] [address] [place] [address] [id number] May, Dental examination Z01.20 [facility] [address] [id number] [address] [place] [address] May, Controlled type 2 diabetes m ellitus without complication, without long-term current use of insulin E11.9 [facility] [address] [id number] [address] [place] [address] [id number] May, Dental examination Z01.20 [facility] [address] [facility] [id number] [address] [place] [address] 18 May, 2017 Bronchitis J40 ; Dry mouth R 68.2 ; Non morbid obesity E66.9 and Controlled type 2 diabetes mellitus without complication, without long-term current use of insulin E11.9 [facility] [address] [facility] [id number] [address] [place] [phone] 16 May, 2017 Encounter for immunization Z 23 [facility] [address] [facility] [id number] [address] [place] [phone] 07 May, 2017 Lumbago with sciatica, unspe cified side M54.40 [facility] [address] [facility] [id number] [address] [place] [address] 05 May, 2017 [facility] [address] [place] [address] [phone] Apr, Dental examination Z01.20 [facility] [address] [id number] [address] [place] [phone] Apr, Lumbago with sciatica, unspe cified side M54.40 [facility] [address] [facility] [id number] [address] [place] [address] Mar, Lumbago with sciatica, left side M54.42 [facility] [address] [facility] [id number] [address] [place] [address] Mar, [facility] [address] [id number] [address] [place] [phone] Mar, Lumbar neuritis M54.16 [facility] [address] [facility] [id number] [address] [place] [id number] Mar, [facility] [address] [id number] [place] [id number] Mar, Dental examination Z01.20 [facility] [address] [facility] [id number] [address] [place] [id number] Mar, MELE (obstructive sleep apnea ) G47.33 ; Neuropathy involving both lower extremities G57.93 and Frequent headaches R51 [place] [address] [facility] [id number] [address] [place] [phone] Mar, Lumbago with sciatica, unspe cified side M54.40 [place] [address] [id number] [address] [place] [phone] Feb, Lumbago with sciatica, unspe cified side M54.40 and Controlled type 2 diabetes mellitus without complication, without long-term current use of insulin E11.9 [place] [address] [id number] [address] [place] [phone] January, Hypertension, benign I10 and Bilateral low back pain with sciatica, sciatica laterality unspecified M54.40 [place] [address] [facility] [id number] [address] [place] [phone] January, Hypertension, benign I10 ; L umbago with sciatica, unspecified side M54.40 ; Other chronic pain G89.29 and Controlled type 2 diabetes mellitus without complication, without long-term current use of insulin E11.9 [place] [address] [id number] [address] [place] [address] January, Lumbar neuritis M54.16 [place] [address] [id number] [address] [place] [address] January, [place] [address] [facility] [id number] [address] [place] [address] Dec, Lumbago with sciatica, right side M54.41 and Lumbar neuritis M54.16 [place] [address] [id number] [address] [place] [address] Dec, Lumbar neuritis M54.16 [place] [address] [id number] [address] [place] [address] Dec, Lumbar neuritis M54.16 [place] [address] [id number] 16 Nov, 2016 Lumbar neuritis M54.16 ; Lum bago with sciatica, right side M54.41 ; Controlled type 2 diabetes mellitus without complication, without long-term current use of insulin E11.9 and Rash and nonspecific skin eruption R21 [place] [address] [address] 09 Nov, 2016 Lumbar neuritis M54.16 and P derickpeter miroslava L23.7 [place] [address] [address] Oct, Lumbar neuritis M54.16 ; Cou ghing R05 and Mood disorder F39 [place] [address] [address] Sep, Lumbago with sciatica, right side M54.41 [place] [address] [address] Sep, Adjustment disorder with dis turbance of emotion F43.29 and Pain management R52 [place] [address] [address] Sep, [place] [address] [address] Sep, [place] [address] [address] Sep, Controlled type 2 diabetes evens reyna without complication, without long-term current use of insulin E11.9 and Lumbago with sciatica, unspecified side M54.40 [place] [address] [address] Aug, Controlled type 2 diabetes evens reyna without complication, without long-term current use of insulin E11.9 ; Pain in right knee M25.561 ; Pain in left knee M25.562 ; Other chronic pain G89.29 ; Lumbago with sciatica, right side M54.41 ; Neck pain M54.2 and Encounter for immunization Z23 [facility] [address] [id number] [address] [place] [address] Jul, [facility] [address] [id number] [address] [place] [address] Jul, Controlled type 2 diabetes evens reyna without complication, without long-term current use of insulin E11.9 [facility] [address] [id number] [address] [place] [address] Jul, [facility] [address] [id number] [address] [place] [address] Jul, [place] [address] [id number] [address] [place] [address] Jul, Lumbago with sciatica, left side M54.42 ; Lumbago with sciatica, right side M54.41 and Other chronic pain G89.29 [place] [address] [id number] [address] [place] [address] Jul, [place] [address] [id number] [address] [place] [address] Jul, [place] [address] [id number] [address] [place] [address] Jun, [place] [address] [facility] [id number] [address] [place] [address] Jun, Lumbago with sciatica, right side M54.41 and Other chronic pain G89.29 [place] [address] [id number] [address] [place] [address] 13 Jun, 2016 Cervicalgia M54.2 ; Lumbago with sciatica, unspecified side M54.40 and Other chronic pain G89.29 [place] [address] [id number] [address] [place] [address] 15 May, 2016 Pain in right knee M25.561 ; Pain in left knee M25.562 and Other chronic pain G89.29 [place] [address] [id number] [address] [place] [address] May, [facility] [address] [id number] [address] [place] [address] Apr, Other chronic pain G89.29 an d Pain in right knee M25.561 [facility] [address] [id number] [address] [place] [address] Apr, Pain in right knee M25.561 [facility] [address] [id number] [address] [place] [address] Mar, [facility] [address] [id number] [address] [place] [address] Mar, Mood disorder F39 and Contro lled type 2 diabetes mellitus without complication, without long-term current use of insulin E11.9 [facility] [address] [id number] [address] [place] [address] Mar, Pain in right knee M25.561 ; Pain in left knee M25.562 ; Other chronic pain G89.29 ; Obstructive sleep apnea syndrome G47.33 ; Mood disorder F39 and Controlled type 2 diabetes mellitus without complication, without long- term current use of insulin E11.9 [facility] [address] [id number] [address] [place] [address] Mar, [facility] [address] [id number] [address] [place] [id number] Feb, Dental examination Z01.20 [facility] [address] [id number] [address] [place] [address] Feb, [facility] [address] [id number] [address] [place] [address] Feb, Osteoarthritis of right knee , unspecified osteoarthritis type M17.9 [facility] [address] [id number] [address] [place] [address] January, [facility] [address] [id number] [address] [place] [id number] January, Dental examination Z01.20 [facility] [address] [id number] [address] [place] [address] January, [facility] [address] [id number] [address] [place] [id number] January, Dental examination Z01.20 an d Caries K02.9 [facility] [address] [id number] [address] [place] [address] Dec, Encounter for other preproce dural examination Z01.818 [facility] [address] [id number] [address] [place] [address] Dec, [facility] [address] [id number] [address] [place] [address] Dec, Knee pain M25.569 [facility] [address] [id number] [address] [place] [address] Dec, Pain in right knee M25.561 [facility] [address] [id number] [address] [place] [address] Dec, [facility] [address] [id number] [address] [place] [address] Dec, [facility] [address] [id number] [address] [place] [address] Dec, Encounter for immunization Z 23 [facility] [address] [id number] [address] [place] [address] Dec, [facility] [address] [id number] [address] [place] [address] Dec, [facility] [address] [id number] [address] [place] [address] Nov, [facility] [address] [id number] [address] [place] [address] Nov, Hypertension, benign I10 ; C ervicalgia M54.2 ; Pain in right knee M25.561 and Pain in left knee M25.562 [facility] [address] [id number] [address] [place] [address] Oct, [facility] [address] [facility] [id number] [address] [place] [address] Oct, [facility] [address] [facility] [id number] [address] [place] [address] Oct, Osteoarthritis of both knees M17.0 [facility] [address] [facility] [id number] [address] [place] [address] Oct, [facility] [address] [facility] [id number] [address] [place] [address] Oct, Low back pain M54.5 [place] [address] [facility] [id number] [address] [place] [address] Oct, Low back pain M54.5 ; Sciati ca, unspecified side M54.30 ; Pain in right knee M25.561 ; Pain in left knee M25.562 ; Pain in right shoulder M25.511 and Pain in left shoulder M25.512 [place] [address] [facility] [id number] [address] [place] [address] Oct, [place] [address] [facility] [id number] [address] [place] [address] Sep, Pain in right hip M25.551 [place] [address] [facility] [id number] [address] [place] [address] Sep, Acute upper respiratory infe ction, unspecified J06.9 [place] [address] [facility] [id number] [address] [place] [address] Aug, Acute upper respiratory infe ction, unspecified J06.9 and Other viral agents as the cause of diseases classified elsewhere B97.89 [place] [address] [facility] [id number] [address] [place] [address] Jul, Arthritis M19.90 [place] [address] [facility] [id number] [address] [place] [address] Jun, Arthritis M19.90 ; Pain in r ight hip M25.551 ; Pain in left hip M25.552 ; Bilateral low back pain with sciatica, sciatica laterality unspecified M54.40 ; Neck pain M54.2 ; Upper back pain M54.9 and Knee pain, unspecified laterality M25.569 [facility] [address] [facility] [id number] [address] [place] [address] May, Osteoarthritis of both knees 715.96 [facility] [address] [id number] [address] [place] [address] May, Rash 782.1 [place] [address] [place] [id number] [address] [place] [address] Apr, Lumbar strain 847.2 [place] [address] [place] [id number] [address] [place] [address] Apr, Rash 782.1 [place] [address] [facility] [id number] [address] [place] [address] Mar, Rash 782.1 [facility] [address] [facility] [id number] [address] [place] [address] Feb, Rash 782.1 ; Hemorrhoids 455 .6 and Constipation 564.00 [place] [address] [facility] [id number] [address] [place] [address] Feb, Osteoarthritis of both knees 715.96 [facility] [address] [facility] [id number] [address] [place] [address] January, [facility] [address] [facility] [id number] [address] [place] [address] Dec, [facility] [address] [facility] [id number] [address] [place] [address] Dec, [facility] [address] [facility] [id number] [address] [place] [address] Dec, [facility] [address] [id number] [address] [place] [address], [place] [address] 18 Nov, 2014 [facility] [address] [id number] [address] [place] [address], [place] [address] 18 Nov, 2014 [facility] [address] [id number] [address] [place] [address], [place] [address] 18 Nov, 2014 [facility] [address] [id number] [address] [place] [address], [place] [address] 18 Nov, 2014 [facility] [address] [id number] [address] [place] [address], [place] [address] Nov, [facility] [address] [id number] [address] [place] [address], [place] [address] Nov, [facility] [address] [id number] [address] [place] [address], [place] [address] Oct, [facility] [address] [id number] [address] [place] [address], [place] [address] Oct, 2014 [facility] [address] [id number] [address] [place] [address], [place] [address] Oct, [facility] [address] [id number] [address] [place] [address], [place] [address] Oct, [facility] [address] [id number] [address] [place] [address] Oct, [facility] [address] [id number] [address] [place] [address] Oct, 2014 [facility] [address] [id number] [address] [place] [address], [place] [address] Oct, [facility] [address] [id number] [address] [place] [address], [place] [address] Oct, 2014 [facility] [address] [id number] [address] [place] [address] Oct, 2014 [facility] [address] [id number] [address] [place] [address] 05 Oct, 2014 [facility] [address] [id number] [address] [place] [address], [place] [address] Oct, [facility] [address] [id number] [address] [place] [address], [place] [address] Sep, [facility] [address] [id number] [address] [place] [address], [place] [address] Sep, [facility] [address] [id number] [address] [place] [address], [place] [address] Sep, [facility] [address] [id number] [address] [place] [address], [place] [address] Sep, [facility] [address] [id number] [address] [place] [address], [place] [address] Sep, [facility] [address] [id number] [address] [place] [address], [place] [address] Sep, [facility] [address] [id number] [address] [place] [address], [place] [address] Aug, [facility] [address] [id number] [address] [place] [address], [place] [address] Aug, [facility] [address] [id number] [address] [place] [address], [place] [address] Aug, [facility] [address] [id number] [address] [place] [address], [place] [address] Aug, [facility] [address] [id number] [address] [place] [address], [place] [address] Aug, [facility] [address] [id number] [address] [place] [address], [place] [address] Aug, [facility] [address] [id number] [address] [place] [address], [place] [address] Aug, [facility] [address] [id number] [address] [place] [address], [place] [address] Aug, [facility] [address] [id number] [address] [place] [address], [place] [address] Aug, [facility] [address] [id number] [address] [place] [address], [place] [address] Aug, [facility] [address] [id number] [address] [place] [address], [place] [address] Jul, [facility] [address] [id number] [address] [place] [address], [place] [address] Jul, [facility] [address] [id number] [address] [place] [address], [place] [address] Jul, [facility] [address] [id number] [address] [place] [address], [place] [address] Jul, [facility] [address] [id number] [address] [place] [address], [place] [address] Jun, [facility] [address] [id number] [address] [place] [address], [place] [address] Jun, [facility] [address] [id number] [address] [place] [address], [place] [address] Jun, [facility] [address] [id number] [address] [place] [address], [place] [address] Jun, [facility] [address] [id number] [address] [place] [address], [place] [address] Jun, [facility] [address] [id number] [address] [place] [address], [place] [address] Jun, [facility] [address] [id number] [address] [place] [address], [place] [address] Jun, [facility] [address] [id number] [address] [place] [address], [place] [address] Jun, [facility] [address] [id number] [address] [place] [address], [place] [address] May, [facility] [address] [id number] [address] [place] [address], [place] [address] May, 2014 [facility] [address] [id number] [facility] [place] [address] 19 May, 2014 [facility] [address] [id number] [address] [place] [address], [place] [address] 19 May, 2014 [facility] [address] [id number] [address] [place] [address], [place] [address] 15 May, 2014 [facility] [address] [id number] [address] [place] [address], [place] [address] 15 May, 2014 [facility] [address] [id number] [address] [place] [address], [place] [address] 15 May, 2014 [facility] [address] [id number] [address] [place] [address], [place] [address] May, [facility] [address] [id number] [address] [place] [address], [place] [address] Apr, [facility] [address] [id number] [address] [place] [address], [place] [address] Apr, [facility] [address] [id number] [address] [place] [address], [place] [address] Apr, [facility] [address] [id number] [address] [place] [address], [place] [address] Apr, [facility] [address] [id number] [address] [place] [address], [place] [address] Apr, [facility] [address] [id number] [address] [place] [address], [place] [address] Apr, [facility] [address] [id number] [address] [place] [address], [place] [address] Apr, [facility] [address] [id number] [address] [place] [address], [place] [address] Apr, [facility] [address] [id number] [address] [place] [address], [place] [address] Apr, [facility] [address] [id number] [address] [place] [address], [place] [address] Apr, [facility] [address] [id number] [address] [place] [address], [place] [address] Apr, [facility] [address] [id number] [address] [place] [address], [place] [address] Apr, [facility] [address] [id number] [address] [place] [address], [place] [address] Mar, [facility] [address] [id number] [address] [place] [address], [place] [address] Mar, [facility] [address] [id number] [address] [place] [address], [place] [address] Mar, [facility] [address] [id number] [address] [place] [address], [place] [address] Mar, [facility] [address] [id number] [address] [place] [address], [place] [address] Mar, [facility] [address] [id number] [address] [place] [address], [place] [address] Mar, [facility] [address] [id number] [address] [place] [address], [place] [address] Feb, [facility] [address] [id number] [address] [place] [address], [place] [address] Feb, [facility] [address] [id number] [address] [place] [address], [place] [address] Feb, [facility] [address] [id number] [address] [place] [address], [place] [address] Feb, [facility] [address] [id number] [address] [place] [address], [place] [address] Feb, [facility] [address] [id number] [address] [place] [address], [place] [address] Feb, [facility] [address] [id number] [address] [place] [address], [place] [address] Feb, [facility] [address] [id number] [address] [place] [address], [place] [address] Feb, [facility] [address] [id number] [address] [place] [address], [place] [address] Feb, [facility] [address] [id number] [address] [place] [address], [place] [address] Feb, [facility] [address] [id number] [address] [place] [address], [place] [address] Feb, [facility] [address] [id number] [address] [place] [address], [place] [address] Feb, [facility] [address] [id number] [address] [place] [address], [place] [address] Feb, [facility] [address] [id number] [address] [place] [address], [place] [address] Feb, [facility] [address] [id number] [address] [place] [address], [place] [address] January, [facility] [address] [id number] [address] [place] [address], [place] [address] January, [facility] [address] [id number] [address] [place] [address], [place] [address] January, [facility] [address] [id number] [address] [place] [address], [place] [address] January, [facility] [address] [id number] [address] [place] [address], [place] [address] January, [facility] [address] [id number] [address] [place] [address], [place] [address] January, [facility] [address] [id number] [address] [place] [address], [place] [address] Dec, [facility] [address] [id number] [address] [place] [address], [place] [address] Dec, [facility] [address] [id number] [address] [place] [address], [place] [address] Dec, [facility] [address] [id number] [facility] [place] [address] Dec, [facility] [address] [id number] [address] [place] [address], [place] [address] Dec, [facility] [address] [id number] [address] [place] [address], [place] [address] Dec, [facility] [address] [id number] [address] [place] [address], [place] [address] Dec, [facility] [address] [id number] [address] [place] [address], [place] [address] Dec, [facility] [address] [id number] [address] [place] [address], [place] [address] Nov, [facility] [address] [id number] [address] [place] [address], [place] [address] Nov, [facility] [address] [id number] [address] [place] [address], [place] [address] Nov, [facility] [address] [id number] [address] [place] [address], [place] [address] Nov, [facility] [address] [id number] [address] [place] [address], [place] [address] Nov, [facility] [address] [id number] [address] [place] [address], [place] [address] Nov, [facility] [address] [id number] [address] [place] [address], [place] [address] Nov, [facility] [address] [id number] [address] [place] [address], [place] [address] Nov, [facility] [address] [id number] [address] [place] [address], [place] [address] Oct, [facility] [address] [id number] [address] [place] [address], [place] [address] Oct, [facility] [address] [id number] [address] [place] [address], [place] [address] Oct, [facility] [address] [id number] [address] [place] [address], [place] [address] Oct, [facility] [address] [id number] [address] [place] [address], [place] [address] Oct, [facility] [address] [id number] [address] [place] [address], [place] [address] Oct, [facility] [address] [id number] [address] [place] [address], [place] [address] Oct, [facility] [address] [id number] [address] [place] [address], [place] [address] Oct, [facility] [address] [id number] [address] [place] [address], [place] [address] Oct, [facility] [address] [id number] [address] [place] [address], [place] [address] Oct, [facility] [address] [id number] [address] [place] [address], [place] [address] Sep, [facility] [address] [id number] [address] [place] [address], [place] [address] Sep, [facility] [address] [id number] [address] [place] [address], [place] [address] Sep, [facility] [address] [id number] [address] [place] [address] Sep, [facility] [address] [id number] [address] [place] [address], [place] [address] Sep, [facility] [address] [id number] [address] [place] [address], [place] [address] Sep, [facility] [address] [id number] [address] [place] [address], [place] [address] Aug, [facility] [address] [id number] [address] [place] [address] Aug, [facility] [address] [id number] [address] [place] [address], [place] [address] Aug, [facility] [address] [id number] [address] [place] [address] Aug, [facility] [address] [id number] [address] [place] [address], [place] [address] Aug, [facility] [address] [id number] [address] [place] [address] Aug, [facility] [address] [id number] [address] [place] [address], [place] [address] Aug, [facility] [address] [id number] [address] [place] [address], [place] [address] Aug, [facility] [address] [id number] [address] [place] [address] Jul, [facility] [address] [id number] [address] [place] [address], [place] [address] Jul, [facility] [address] [id number] [address] [place] [address] Jul, [facility] [address] [id number] [address] [place] [address] Jul, [facility] [address] [id number] [address] [place] [address] Jul, [facility] [address] [id number] [address] [place] [address] Jul, [facility] [address] [id number] [address] [place] [address] Jun, [facility] [address] [id number] [address] [place] [address] Jun, [facility] [address] [id number] [address] [place] [address] Jun, [facility] [address] [id number] [facility] [place] [address] May, [facility] [address] [id number] [address] [place] [address], [place] [address] May, [facility] [address] [id number] [address] [place] [address], [place] [address] May, [facility] [address] [id number] [address] [place] [address], [place] [address] Apr, [facility] [address] [id number] [address] [place] [address], [place] [address] Apr, [facility] [address] [id number] [address] [place] [address], [place] [address] Apr, [facility] [address] [id number] [address] [place] [address], [place] [address] Apr, [facility] [address] [id number] [address] [place] [address], [place] [address] Mar, [facility] [address] [id number] [address] [place] [address], [place] [address] Mar, [facility] [address] [id number] [address] [place] [address], [place] [address] Mar, [facility] [address] [id number] [address] [place] [address], [place] [address] Mar, [facility] [address] [id number] [address] [place] [address], [place] [address] Feb, [facility] [address] [id number] [address] [place] [address], [place] [address] Feb, [facility] [address] [id number] [address] [place] [address], [place] [address] Feb, [facility] [address] [id number] [address] [place] [address], [place] [address] Feb, [facility] [address] [id number] [address] [place] [address], [place] [address] January, [facility] [address] [id number] [address] [place] [address], [place] [address] January, [facility] [address] [id number] [address] [place] [address], [place] [address] January, [facility] [address] [id number] [address] [place] [address], [place] [address] Nov, [facility] [address] [id number] [address] [place] [address], [place] [address] Nov, [facility] [address] [id number] [address] [place] [address], [place] [address] Oct, [facility] [address] [id number] [address] [place] [address], [place] [address] Oct, [facility] [address] [id number] [address] [place] [address], [place] [address] Oct, [facility] [address] [id number] [address] [place] [address], [place] [address] Oct, [facility] [address] [id number] [address] [place] [address], [place] [address] Sep, [facility] [address] [id number] [address] [place] [address], [place] [address] Sep, [facility] [address] [id number] [address] [place] [address], [place] [address] Sep, [facility] [address] [id number] [address] [place] [address], [place] [address] Aug, [facility] [address] [id number] [address] [place] [address], [place] [address] Aug, [facility] [address] [id number] [address] [place] [address], [place] [address] Aug, [facility] [address] [id number] [address] [place] [address], [place] [address] Aug, [facility] [address] [id number] [address] [place] [address], [place] [address] Aug, [facility] [address] [id number] [address] [place] [address], [place] [address] Aug, [facility] [address] [id number] [address] [place] [address], [place] [address] Jul, [facility] [address] [id number] [address] [place] [address], [place] [address] Jul, [facility] [address] [id number] [address] [place] [address], [place] [address] Jun, [facility] [address] [id number] [address] [place] [address], [place] [address] Jun, [facility] [address] [id number] [address] [place] [address], [place] [address] Jun, [facility] [address] [id number] [address] [place] [address], [place] [address] Apr, [facility] [address] [id number] [address] [place] [address], [place] [address] Apr, [facility] [address] [id number] [address] [place] [address], [place] [address] Mar, [facility] [address] [id number] [address] [place] [address], [place] [address] Mar, [facility] [address] [id number] [address] [place] [address], [place] [address] Mar, [facility] [address] [id number] [address] [place] [address], [place] [address] Mar, [facility] [address] [id number] [address] [place] [address], [place] [address] Feb, [facility] [address] [id number] [address] [place] [address], [place] [address] Feb, [facility] [address] [id number] [address] [place] [address], [place] [address] Feb, [facility] [address] [id number] [address] [place] [address], [place] [address] January, [facility] [address] [id number] [address] [place] [address], [place] [address] January, [facility] [address] [id number] [address] [place] [address], [place] [address] January, [facility] [address] [id number] [address] [place] [address], [place] [address] January, [facility] [address] [id number] [address] [place] [address], [place] [address] Dec, [facility] [address] [id number] [address] [place] [address], [place] [address] Dec, [facility] [address] [id number] [address] [place] [address], [place] [address] Nov, [facility] [address] [id number] [address] [place] [address], [place] [address] Nov, [facility] [address] [id number] [address] [place] [address], [place] [address] Oct, [facility] [address] [id number] [address] [place] [address], [place] [address] Oct, [facility] [address] [id number] [address] [place] [address], [place] [address] Sep, [facility] [address] [id number] [address] [place] [address], [place] [address] Sep, [facility] [address] [id number] [address] [place] [address], [place] [address] Sep, [facility] [address] [id number] [address] [place] [address], [place] [address] Sep, [facility] [address] [id number] [address] [place] [address], [place] [address] Aug, [facility] [address] [id number] [address] [place] [address] 16 Aug, 2011 [facility] [address] [id number] [address] [place] [address] Aug, [facility] [address] [id number] [address] [place] [address] Jul, [facility] [address] [id number] [address] [place] [address] Aug, [facility] [address] [id number] [address] [place] [address] Aug, [facility] [address] [id number] [address] [place] [address] Aug, [facility] [address] [id number] [address] [place] [address] Aug, [facility] [address] [id number] [address] [place] [address] Jul, [facility] [address] [id number] [address] [place] [address] Jul, [facility] [address] [id number] [address] [place] [address] Jul, [facility] [address] [id number] [address] [place] [address] Jun, [facility] [address] [id number] [address] [place] [address] Jun, [facility] [address] [id number] [address] [place] [address] Jun, [facility] [address] [id number] [address] [place] [address] Apr, [facility] [address] [id number] [address] [place] [address] Mar, IMMUNIZATIONS No Known Immunizations SOCIAL HISTORY [...]
--- OUTSIDE RECORDS SUMMARY | 2020-03-18 15:01 | XMS REPORT ---
Author Author George WAYNE Organization [facility] Address [address] [place] [address] Care Team Providers Care Acct Exec Name Role Phone REYNA WAYNE Unavailable PROBLEMS Type Condition ICD9-CM Code NQI66-DJ Code Onset Dates Condition S tatus SNOMED Code Problem Hypertension, benign I10 Active 71952595 Problem Other chronic pain G89.29 Active 8 3038645 Problem Lumbago with sciatica, unspecified side M54.40 Active 482244114 Problem Controlled type 2 diabetes m ellitus without complication, without long- term current use of insulin E11.9 Active 716815468 Problem Lumbago with sciatica, right side M54.41 Active 899600288 Problem Adjustment disorder with disturbance of emotion F4 3.29 Active 40254415 Problem MELE (obstructive sleep apnea) G47.33 Active 79778868 Problem Non morbid obesity E66.9 Active 4 67522633 Problem Hammer toe of left foot M20.42 Active 012510016 Problem Mood disorder F39 Active 470435 05 Problem Deformity of left foot M21.962 Active 888238103 Problem Lumbago with sciatica, left side M54.42 Active 774291768 Problem Erectile dysfunction due to diseases classified elsewhere N52.1 Active 884124549 Problem Obstructive sleep apnea syndrome G47.33 Active 97832996 Problem Type 2 diabetes mellitus wit h diabetic neuropathy, without long-term current use of insulin E11.40 Active 50764 006 Problem Essential hypertension I10 Active 76502185 ALLERGIES No Information ENCOUNTERS Encounter Location Date Diagnosis [facility] [address] [facility] [id number] [address] [place] [id number] 13 Dec, 2019 Acute diffuse otitis externa of left ear H60.312 [facility] [address] [facility] [id number] [address] [place] [id number] 18 Nov, 2019 Viral URI J06.9 and Flu-like symptoms R68.89 [place] [address] [facility] [id number] [address] [place] [id number] 09 Nov, 2019 Type 2 diabetes mellitus wit h diabetic neuropathy, without long- term current use of insulin E11.40 ; Family history of prostate cancer Z80.42 and Prostate cancer screening Z12.5 [place] [address] [address] [place] [id number] [address] [place] [phone] Nov, [place] [address] [place] [id number] [address] [place] [phone] Sep, [place] [address] [place] [id number] [address] [place] [phone] Aug, [place] [address] [place] [id number] [place] [phone] Jul, Lumbago with sciatica, unspe cified side M54.40 [place] [address] [place] [id number] [address] [place] [phone] Jun, Lumbago with sciatica, unspe cified side M54.40 [place] [address] [place] [id number] [address] [place] [id number] Jun, URI, acute J06.9 [place] [address] [place] [id number] [address] [place] [phone] May, Lumbago with sciatica, unspe cified side M54.40 [place] [address] [facility] [id number] [address] [place] [phone] May, [place] [address] [place] [id number] [address] [place] [id number] 12 May, 2019 Type 2 diabetes mellitus wit h diabetic neuropathy, without long- term current use of insulin E11.40 and Hammer toe of left foot M20.42 [place] [address] [facility] [id number] [address] [place] [phone] May, [place] [address] [place] [id number] [address] [place] [phone] May, [facility] [address] [place] [id number] [address] [place] [phone] May, [facility] [address] [place] [id number] [address] [place] [id number] Apr, Lumbago with sciatica, unspe cified side M54.40 [facility] [address] [place] [id number] [address] [place] [phone] Apr, [facility] [address] [place] [id number] [address] [place] [id number] Apr, [address] [id number] [address] Apr, Hammer toe of left foot M20. 42 ; Chest pain R07.9 ; Preoperative examination Z01.818 and Morbid obesity E66.01 [place] [address] [place] [id number] [address] [place] [phone] Apr, Morbid obesity E66.01 ; Bron chitis J40 and High risk medications (not anticoagulants) long-term use Z79.899 [place] [address] [address] [place] [id number] [address] [place] [phone] Apr, Lumbago with sciatica, unspe cified side M54.40 [facility] [address] [place] [id number] [address] [place] [phone] Apr, [facility] [address] [place] [id number] [address] [place] [phone] Mar, Lumbar neuritis M54.16 and M orbid obesity E66.01 [facility] [address] [place] [id number] [address] [place] [phone] Mar, [facility] [address] [place] [id number] [address] [place] [phone] Mar, [facility] [address] [place] [id number] [address] [place] [phone] Mar, Lumbago with sciatica, unspe cified side M54.40 [facility] [address] [id number] [address] [place] [phone] Mar, Morbid obesity E66.01 ; Gabe lara R05 ; 2+ pitting edema R60.9 and Controlled type 2 diabetes mellitus without complication, without long-term current use of insulin E11.9 [facility] [address] [id number] [address] [place] [phone] Feb, [facility] [address] [id number] [address] [place] [id number] Feb, Lumbago with sciatica, unspe cified side M54.40 [facility] [address] [id number] [address] [place] [phone] Feb, [facility] [address] [id number] [address] [place] [id number] Feb, Controlled type 2 diabetes m ellitus without complication, without long-term current use of insulin E11.9 and Morbid obesity E66.01 [facility] [address] [id number] [address] [place] [phone] January, Deformity of left foot M21.9 62 [facility] [address] [id number] [address] [place] [phone] January, [facility] [address] [id number] [address] [place] [phone] January, Lumbago with sciatica, unspe cified side M54.40 [facility] [address] [id number] [address] [place] [phone] January, [facility] [address] [id number] [address] [place] [id number] January, Lumbago with sciatica, unspe cified side M54.40 [facility] [address] [id number] [address] [place] [phone] January, [facility] [address] [facility] [id number] [address] [place] [phone] January, Acute right-sided thoracic b ack pain M54.6 [facility] [address] [place] [id number] [address] [place] [phone] January, Acute right-sided thoracic b ack pain M54.6 [facility] [address] [address] January, Chest pain, unspecified type R07.9 ; Morbid obesity E66.01 and Scabies B86 [facility] [address] [place] [id number] [address] [place] [id number] Dec, Lumbago with sciatica, unspe cified side M54.40 [place] [id number] [address] Dec, Toenail fungus B35.1 [facility] [address] [place] [id number] [address] [place] [address] Dec, Toenail fungus B35.1 [facility] [address] [address] Dec, Acute right-sided thoracic b ack pain M54.6 [place] [id number] [place] [id number] [address] [place] [phone] Dec, Lumbago with sciatica, unspe cified side M54.40 [facility] [address] [place] [id number] [address] [place] [phone] Nov, Hammer toe of left foot M20. 42 ; Deformity of left foot M21.962 and Type 2 diabetes mellitus with diabetic neuropathy, without long-term current use of insulin E11.40 [facility] [address] [facility] [id number] [address] [place] [id number] Nov, Acute right-sided thoracic b ack pain M54.6 ; Morbid obesity E66.01 and Rt flank pain R10.9 [place] [address] [facility] [id number] [address] [place] [phone] Nov, Lumbago with sciatica, unspe cified side M54.40 [place] [address] [place] [id number] [address] [place] [address] Oct, Lumbago with sciatica, unspe cified side M54.40 [place] [address] [place] [id number] [place] [address] Sep, Lumbago with sciatica, unspe cified side M54.40 [place] [address] [place] [id number] [address] [place] [phone] Sep, [place] [address] [place] [id number] [place] [address] Sep, BMI 40.0-44.9, adult Z68.41 ; Lumbago with sciatica, left side M54.42 ; Lumbago with sciatica, right side M54.41 and Other chronic pain G89.29 [place] [address] [place] [id number] [address] [place] [phone] Aug, Lumbago with sciatica, unspe cified side M54.40 [place] [address] [place] [id number] [address] [place] [id number] Aug, Type 2 diabetes mellitus wit h diabetic neuropathy, without long- term current use of insulin E11.40 ; Hammer toe of left foot M20.42 ; Hypertension, benign I10 and Frequent headaches R51 [place] [address] [place] [id number] [address] [place] [id number] Jul, Lumbago with sciatica, unspe cified side M54.40 [place] [address] [place] [id number] [address] [place] [id number] Jul, [place] [address] [place] [id number] [address] [place] [phone] Jul, Essential hypertension I10 a nd Controlled type 2 diabetes mellitus without complication, without long-term current use of insulin E11.9 [facility] [address] [facility] [id number] [address] [place] [phone] Jul, Essential hypertension I10 ; Controlled type 2 diabetes mellitus without complication, without long-term current use of insulin E11.9 and BMI 40.0-44.9, adult Z68.41 [facility] [address] [facility] [id number] [address] [place] [phone] Jul, Dysfunction of left eustachi an tube H69.82 [facility] [address] [id number] [address] [place] [phone] Jul, Lumbago with sciatica, unspe cified side M54.40 [facility] [address] [id number] [address] [place] [address] [phone] Jun, Dental examination Z01.20 [facility] [address] [facility] [id number] [address] [place] [phone] Jun, Lumbago with sciatica, unspe cified side M54.40 and Encounter for immunization Z23 [facility] [address] [facility] [id number] [address] [place] [id number] Jun, Dysfunction of left eustachi an tube H69.82 [place] [id number] [facility] [id number] [place] [id number] Jun, Dental examination Z01.20 [facility] [address] [id number] [address] [place] [phone] Jun, Other chronic pain G89.29 [facility] [address] [id number] [address] [place] [address] [id number] Jun, Dental examination Z01.20 [facility] [address] [id number] [address] [place] [phone] Jun, [facility] [address] [id number] [address] [place] [address] Jun, Bronchitis J40 ; Dysfunction of left eustachian tube H69.82 and BMI 45.0-49.9, adult Z68.42 [facility] [address] [place] [id number] [address] [place] [address] Jun, Lumbago with sciatica, unspe cified side M54.40 [facility] [address] [place] [id number] [address] [place] [id number] May, Type 2 diabetes mellitus wit h diabetic neuropathy, without long- term current use of insulin E11.40 and Hypertension, benign I10 [facility] [address] [place] [id number] [address] [place] [phone] May, Lumbago with sciatica, unspe cified side M54.40 [facility] [address] [place] [id number] [address] [place] [phone] Apr, [facility] [address] [address] Apr, Controlled type 2 diabetes m ellitus without complication, without long-term current use of insulin E11.9 ; Insect bite (nonvenomous), right ankle, initial encounter S90.561A ; Local infection of the skin and subcutaneous tissue, unspecified L08.9 ; Acute swimmer''s ear of left side H60.332 and BMI 45.0-49.9, adult Z68.42 [place] [address] [place] [id number] [address] [place] [phone] Apr, Lumbago with sciatica, unspe cified side M54.40 [facility] [address] [place] [id number] [address] [place] [id number] Mar, [place] [address] [place] [id number] [place] [phone] Mar, Lumbago with sciatica, unspe cified side M54.40 [facility] [address] [place] [id number] [address] [place] [id number] Feb, Lumbago with sciatica, unspe cified side M54.40 [facility] [address] [facility] [id number] [address] [place] [id number] Feb, BMI 45.0-49.9, adult Z68.42 and Obstructive sleep apnea syndrome G47.33 [place] [address] [place] [id number] [address] [place] [id number] January, Lumbar neuritis M54.16 [place] [address] [facility] [id number] [address] [place] [phone] January, Lumbago with sciatica, unspe cified side M54.40 [place] [address] [place] [id number] [place] [address] Dec, Controlled type 2 diabetes m maribell without complication, without long-term current use of insulin E11.9 ; Erectile dysfunction due to diseases classified elsewhere N52.1 and Mood disorder F39 [place] [address] [place] [id number] [address] [place] [address] Dec, Lumbago with sciatica, unspe cified side M54.40 [place] [address] [place] [id number] [address] [place] [address] Dec, Obstructive sleep apnea synd luis G47.33 [place] [address] [place] [id number] [address] [place] [address] Nov, Lumbago with sciatica, unspe cified side M54.40 ; Hypertension, benign I10 and Mood disorder F39 [facility] [address] [place] [id number] [address] [place] [phone] Nov, Other chronic pain G89.29 [facility] [address] [facility] [id number] [address] [place] [phone] Nov, Lumbago with sciatica, unspe cified side M54.40 [facility] [address] [id number] [address] [place] [address] [id number] Nov, Dental examination Z01.20 [facility] [address] [facility] [id number] [address] [place] [phone] Oct, [facility] [address] [facility] [id number] [address] [place] [id number] Oct, Lumbago with sciatica, unspe cified side M54.40 [facility] [address] [facility] [id number] [address] [place] [phone] Oct, Lumbago with sciatica, unspe cified side M54.40 [facility] [address] [facility] [id number] [address] [place] [phone] Oct, [facility] [address] [facility] [id number] [address] [place] [phone] Oct, [facility] [address] [facility] [id number] [address] [place] [address] [id number] Oct, Dental examination Z01.20 [facility] [address] [facility] [id number] [address] [place] [phone] Oct, [facility] [address] [facility] [id number] [address] [place] [address] Oct, Pain in right knee M25.561 [facility] [address] [facility] [id number] [address] [place] [phone] Sep, [facility] [address] [facility] [id number] [address] [place] [phone] Sep, Other chronic pain G89.29 [facility] [address] [facility] [id number] [address] [place] [id number] Sep, Lumbago with sciatica, unspe cified side M54.40 [facility] [address] [facility] [id number] [address] [place] [phone] Sep, [facility] [address] [facility] [id number] [address] [place] [phone] Sep, Viral URI J06.9 and BMI 45.0 -49.9, adult Z68.42 [facility] [address] [facility] [id number] [address] [place] [id number] Aug, Foreign body hand S60.559A a nd BMI 45.0-49.9, adult Z68.42 [facility] [address] [facility] [id number] [address] [place] [id number] Aug, [facility] [address] [place] [id number] [address] [place] [phone] Aug, Lumbago with sciatica, unspe cified side M54.40 [facility] [address] [facility] [id number] [address] [place] [address] Aug, Vertigo R42 ; Dysfunction of both eustachian tubes H69.83 ; Low back pain M54.5 and Other chronic pain G89.29 [facility] [address] [facility] [id number] [address] [place] [phone] Aug, Dizziness R42 and Acute bila teral otitis media H66.93 [facility] [address] [facility] [id number] [address] [place] [phone] Aug, Lumbago with sciatica, unspe cified side M54.40 [facility] [address] [facility] [id number] [address] [place] [address] [id number] Jul, Dental examination Z01.20 [facility] [address] [place] [id number] [address] [place] [phone] Jul, [facility] [address] [facility] [id number] [address] [place] [id number] Jul, [facility] [address] [facility] [id number] [address] [place] [phone] Jul, Dysfunction of both eustachi an tubes H69.83 [facility] [address] [facility] [id number] [address] [place] [phone] 07 Jul, 2017 Controlled type 2 diabetes m taraitus without complication, without long-term current use of insulin E11.9 [facility] [address] [id number] [address] [place] [phone] Jul, Controlled type 2 diabetes m ellitus without complication, without long-term current use of insulin E11.9 [facility] [address] [id number] [address] [place] [phone] Jul, Dizziness R42 and BMI 40.0-4 4.9, adult Z68.41 [facility] [address] [facility] [id number] [address] [place] [phone] Jul, Controlled type 2 diabetes m ellitus without complication, without long-term current use of insulin E11.9 [facility] [address] [facility] [id number] [address] [place] [phone] Jul, Lumbago with sciatica, unspe cified side M54.40 [facility] [id number] [place] [address] [id number] Jul, Dental examination Z01.20 [facility] [address] [id number] [address] [place] [phone] Jun, [facility] [address] [id number] [place] [address] [id number] Jun, Dental examination Z01.20 [facility] [address] [facility] [id number] [address] [place] [phone] Jun, Controlled type 2 diabetes m ellitus without complication, without long-term current use of insulin E11.9 [facility] [address] [id number] [address] [place] [phone] Jun, Lumbago with sciatica, unspe cified side M54.40 [facility] [address] [place] [id number] [place] [address] [id number] May, Dental examination Z01.20 [facility] [address] [id number] [address] [place] [phone] May, Controlled type 2 diabetes m ellitus without complication, without long-term current use of insulin E11.9 [facility] [address] [id number] [address] [place] [address] [id number] 19 May, 2017 Dental examination Z01.20 [facility] [address] [facility] [id number] [address] [place] [id number] 18 May, 2017 Bronchitis J40 ; Dry mouth R 68.2 ; Non morbid obesity E66.9 and Controlled type 2 diabetes mellitus without complication, without long-term current use of insulin E11.9 [facility] [address] [facility] [id number] [address] [place] [phone] 16 May, 2017 Encounter for immunization Z 23 [place] [address] [facility] [id number] [place] [phone] 07 May, 2017 Lumbago with sciatica, unspe cified side M54.40 [facility] [address] [facility] [id number] [address] [place] [phone] 05 May, 2017 [facility] [id number] [place] [id number] Apr, Dental examination Z01.20 [facility] [address] [id number] [address] [place] [phone] Apr, Lumbago with sciatica, unspe cified side M54.40 [facility] [address] [facility] [id number] [address] [place] [phone] Mar, Lumbago with sciatica, left side M54.42 [facility] [address] [facility] [id number] [address] [place] [phone] Mar, [facility] [address] [facility] [id number] [address] [place] [phone] Mar, Lumbar neuritis M54.16 [facility] [address] [facility] [id number] [address] [place] [phone] Mar, [facility] [address] [id number] [address] [place] [phone] Mar, Dental examination Z01.20 [place] [address] [address] [facility] [id number] [address] [place] [phone] Mar, MELE (obstructive sleep apnea ) G47.33 ; Neuropathy involving both lower extremities G57.93 and Frequent headaches R51 [place] [address] [address] [facility] [id number] [address] [place] [phone] Mar, Lumbago with sciatica, unspe cified side M54.40 [place] [address] [address] [place] [id number] [address] [place] [phone] Feb, Lumbago with sciatica, unspe cified side M54.40 and Controlled type 2 diabetes mellitus without complication, without long-term current use of insulin E11.9 [place] [address] [place] [id number] [place] [id number] January, Hypertension, benign I10 and Bilateral low back pain with sciatica, sciatica laterality unspecified M54.40 [place] [address] [place] [id number] [place] [phone] January, Hypertension, benign I10 ; L umbago with sciatica, unspecified side M54.40 ; Other chronic pain G89.29 and Controlled type 2 diabetes mellitus without complication, without long-term current use of insulin E11.9 [place] [address] [place] [id number] [address] [place] [id number] January, Lumbar neuritis M54.16 [place] [address] [place] [id number] [address] [place] [id number] January, [place] [address] [place] [id number] [address] [place] [id number] Dec, Lumbago with sciatica, right side M54.41 and Lumbar neuritis M54.16 [place] [address] [place] [id number] [address] [place] [address] Dec, Lumbar neuritis M54.16 [place] [address] [place] [id number] [address] [place] [id number] Dec, Lumbar neuritis M54.16 [place] [id number] [place] [id number] [address] [place] [address] Nov, Lumbar neuritis M54.16 ; Lum bago with sciatica, right side M54.41 ; Controlled type 2 diabetes mellitus without complication, without long-term current use of insulin E11.9 and Rash and nonspecific skin eruption R21 [place] [address] [place] [id number] [address] [place] [address] Nov, Lumbar neuritis M54.16 and P derickpeter miroslava L23.7 [place] [address] [place] [id number] [address] [place] [address] Oct, Lumbar neuritis M54.16 ; Cou ghing R05 and Mood disorder F39 [place] [address] [place] [id number] [address] [place] [address] Sep, Lumbago with sciatica, right side M54.41 [place] [address] [place] [id number] [address] [place] [id number] Sep, Adjustment disorder with dis turbance of emotion F43.29 and Pain management R52 [place] [address] [place] [id number] [address] [place] [id number] Sep, [place] [address] [place] [id number] [address] [place] [phone] Sep, [place] [address] [place] [id number] [address] [place] [address] Sep, Controlled type 2 diabetes evens reyna without complication, without long-term current use of insulin E11.9 and Lumbago with sciatica, unspecified side M54.40 [place] [address] [place] [id number] [address] [place] [address] Aug, Controlled type 2 diabetes evens reyna without complication, without long-term current use of insulin E11.9 ; Pain in right knee M25.561 ; Pain in left knee M25.562 ; Other chronic pain G89.29 ; Lumbago with sciatica, right side M54.41 ; Neck pain M54.2 and Encounter for immunization Z23 [facility] [address] [id number] [address] [place] [id number] Jul, [facility] [address] [id number] [address] [place] [address] Jul, Controlled type 2 diabetes m maribell without complication, without long-term current use of insulin E11.9 [facility] [address] [id number] [address] [place] [address] Jul, [facility] [address] [id number] [address] [place] [address] Jul, [facility] [address] [id number] [address] [place] [address] Jul, Lumbago with sciatica, left side M54.42 ; Lumbago with sciatica, right side M54.41 and Other chronic pain G89.29 [facility] [address] [id number] [address] [place] [id number] Jul, [facility] [address] [id number] [address] [place] [id number] Jul, [facility] [address] [id number] [address] [place] [id number] Jun, [facility] [address] [id number] [address] [place] [address] Jun, Lumbago with sciatica, right side M54.41 and Other chronic pain G89.29 [facility] [address] [id number] [address] [place] [address] Jun, Cervicalgia M54.2 ; Lumbago with sciatica, unspecified side M54.40 and Other chronic pain G89.29 [facility] [address] [id number] [address] [place] [id number] 15 May, 2016 Pain in right knee M25.561 ; Pain in left knee M25.562 and Other chronic pain G89.29 [facility] [address] [id number] [address] [place] [address] May, [facility] [address] [id number] [address] [place] [address] Apr, Other chronic pain G89.29 an d Pain in right knee M25.561 [facility] [address] [id number] [address] [place] [address] Apr, Pain in right knee M25.561 [facility] [address] [id number] [address] [place] [id number] Mar, [facility] [address] [id number] [address] [place] [id number] Mar, Mood disorder F39 and Contro lled type 2 diabetes mellitus without complication, without long-term current use of insulin E11.9 [facility] [address] [id number] [address] [place] [address] Mar, Pain in right knee M25.561 ; Pain in left knee M25.562 ; Other chronic pain G89.29 ; Obstructive sleep apnea syndrome G47.33 ; Mood disorder F39 and Controlled type 2 diabetes mellitus without complication, without long- term current use of insulin E11.9 [facility] [address] [id number] [address] [place] [phone] Mar, [facility] [address] [id number] [address] [place] [id number] Feb, Dental examination Z01.20 [facility] [address] [id number] [address] [place] [id number] Feb, [facility] [address] [id number] [address] [place] [id number] Feb, Osteoarthritis of right knee , unspecified osteoarthritis type M17.9 [facility] [address] [id number] [address] [place] [id number] January, [facility] [address] [id number] [address] [place] [id number] January, Dental examination Z01.20 [facility] [address] [id number] [address] [place] [id number] January, [facility] [address] [id number] [address] [place] [address] [id number] January, Dental examination Z01.20 an d Caries K02.9 [facility] [address] [id number] [address] [place] [address] Dec, Encounter for other preproce dural examination Z01.818 [facility] [address] [id number] [address] [place] [id number] Dec, [facility] [address] [id number] [address] [place] [address] Dec, Knee pain M25.569 [facility] [address] [id number] [address] [place] [address] Dec, Pain in right knee M25.561 [facility] [address] [id number] [address] [place] [id number] Dec, [facility] [address] [id number] [address] [place] [id number] Dec, [facility] [address] [id number] [address] [place] [id number] Dec, Encounter for immunization Z 23 [facility] [address] [id number] [address] [place] [phone] Dec, [facility] [address] [id number] [address] [place] [id number] Dec, [facility] [address] [id number] [address] [place] [id number] Nov, [facility] [address] [id number] [address] [place] [id number] Nov, Hypertension, benign I10 ; C ervicalgia M54.2 ; Pain in right knee M25.561 and Pain in left knee M25.562 [place] [id number] [facility] [id number] [address] [place] [phone] Oct, [facility] [address] [facility] [id number] [address] [place] [id number] Oct, [facility] [address] [facility] [id number] [address] [place] [id number] Oct, Osteoarthritis of both knees M17.0 [place] [address] [facility] [id number] [address] [place] [id number] Oct, [place] [address] [facility] [id number] [address] [place] [phone] Oct, Low back pain M54.5 [place] [address] [facility] [id number] [address] [place] [id number] Oct, Low back pain M54.5 ; Sciati ca, unspecified side M54.30 ; Pain in right knee M25.561 ; Pain in left knee M25.562 ; Pain in right shoulder M25.511 and Pain in left shoulder M25.512 [place] [address] [facility] [id number] [address] [place] [phone] Oct, [place] [address] [facility] [id number] [address] [place] [address] Sep, Pain in right hip M25.551 [place] [address] [facility] [id number] [address] [place] [phone] Sep, Acute upper respiratory infe ction, unspecified J06.9 [place] [address] [facility] [id number] [address] [place] [address] Aug, Acute upper respiratory infe ction, unspecified J06.9 and Other viral agents as the cause of diseases classified elsewhere B97.89 [place] [address] [facility] [id number] [address] [place] [phone] Jul, Arthritis M19.90 [facility] [address] [id number] [address] [place] [address] Jun, Arthritis M19.90 ; Pain in r ight hip M25.551 ; Pain in left hip M25.552 ; Bilateral low back pain with sciatica, sciatica laterality unspecified M54.40 ; Neck pain M54.2 ; Upper back pain M54.9 and Knee pain, unspecified laterality M25.569 [facility] [address] [id number] [address] [place] [id number] May, Osteoarthritis of both knees 715.96 [facility] [address] [id number] [address] [place] [address] May, Rash 782.1 [facility] [address] [id number] [address] [place] [phone] Apr, Lumbar strain 847.2 [facility] [address] [id number] [address] [place] [id number] Apr, Rash 782.1 [facility] [address] [id number] [address] [place] [id number] Mar, Rash 782.1 [facility] [address] [facility] [id number] [address] [place] [id number] Feb, Rash 782.1 ; Hemorrhoids 455 .6 and Constipation 564.00 [facility] [address] [id number] [address] [place] [id number] Feb, Osteoarthritis of both knees 715.96 [facility] [address] [id number] [address] [place] [phone] January, [facility] [address] [id number] [address] [place] [id number] Dec, [facility] [address] [facility] [id number] [address] [place] [phone] Dec, [facility] [address] [id number] [address] [place] [id number] 13 Dec, 2014 [facility] [address] [id number] [address] [place] [address], [place] [address] 18 Nov, 2014 [facility] [address] [id number] [address] [place] [address], [place] [id number] 18 Nov, 2014 [facility] [address] [id number] [address] [place] [address], [place] [id number] 18 Nov, 2014 [facility] [address] [id number] [address] [place] [address], [place] [id number] 18 Nov, 2014 [facility] [address] [id number] [address] [place] [address], [place] [id number] Nov, [facility] [address] [id number] [address] [place] [address], [place] [address] Nov, [facility] [address] [id number] [address] [place] [address], [place] [address] Oct, [facility] [address] [id number] [address] [place] [address], [place] [address] Oct, [facility] [address] [id number] [address] [place] [address], [place] [address] Oct, 2014 [facility] [address] [id number] [address] [place] [address], [place] [address] Oct, [facility] [address] [id number] [address] [place] [address], [place] [address] Oct, 2014 [facility] [address] [id number] [address] [place] [address], [place] [address] Oct, 2014 [facility] [address] [id number] [address] [place] [address], [place] [address] Oct, 2014 [facility] [address] [id number] [address] [place] [address], [place] [address] Oct, 2014 [facility] [address] [id number] [address] [place] [address], [place] [address] Oct, [facility] [address] [id number] [address] [place] [address], [place] [address] Oct, [facility] [address] [id number] [address] [place] [address], [place] [address] Oct, [facility] [address] [id number] [address] [place] [address], [place] [address] Sep, [facility] [address] [id number] [address] [place] [address], [place] [address] Sep, [facility] [address] [id number] [address] [place] [address], [place] [address] Sep, [facility] [address] [id number] [address] [place] [address], [place] [id number] Sep, [facility] [address] [id number] [address] [place] [address], [place] [address] Sep, [facility] [address] [id number] [address] [place] [address], [place] [address] Sep, [facility] [address] [id number] [address] [place] [address], [place] [id number] Aug, [facility] [address] [id number] [address] [place] [address], [place] [address] Aug, [facility] [address] [id number] [address] [place] [address], [place] [address] Aug, [facility] [address] [id number] [address] [place] [address], [place] [address] Aug, [facility] [address] [id number] [address] [place] [address], [place] [address] Aug, [facility] [address] [id number] [address] [place] [address], [place] [address] Aug, [facility] [address] [id number] [address] [place] [address], [place] [address] Aug, [facility] [address] [id number] [address] [place] [address], [place] [address] Aug, [facility] [address] [id number] [address] [place] [address], [place] [address] Aug, [facility] [address] [id number] [address] [place] [address], [place] [address] Aug, [facility] [address] [id number] [address] [place] [address], [place] [address] Jul, [facility] [address] [id number] [address] [place] [address], [place] [address] Jul, [facility] [address] [id number] [address] [place] [address], [place] [address] Jul, [facility] [address] [id number] [address] [place] [address], [place] [address] Jul, [facility] [address] [id number] [address] [place] [address], [place] [address] Jun, [facility] [address] [id number] [address] [place] [address], [place] [address] Jun, [facility] [address] [id number] [address] [place] [address], [place] [address] Jun, [facility] [address] [id number] [address] [place] [address], [place] [address] Jun, [facility] [address] [id number] [address] [place] [address], [place] [address] Jun, [facility] [address] [id number] [address] [place] [address], [place] [address] Jun, [facility] [address] [id number] [address] [place] [address], [place] [address] Jun, [facility] [address] [id number] [address] [place] [address], [place] [address] Jun, [facility] [address] [id number] [address] [place] [address], [place] [address] May, [facility] [address] [id number] [facility] [place] [address] 24 May, 2013 [facility] [address] [id number] [facility] [place] [address] 19 May, 2014 [facility] [address] [id number] [facility] [place] [address] 19 May, 2013 [facility] [address] [id number] [address] [place] [address], [place] [address] 15 May, 2014 [facility] [address] [id number] [address] [place] [address], [place] [address] 15 May, 2014 [facility] [address] [id number] [address] [place] [address], [place] [address] 15 May, 2014 [facility] [address] [id number] [address] [place] [address], [place] [address] May, [facility] [address] [id number] [address] [place] [address], [place] [address] Apr, [facility] [address] [id number] [address] [place] [address], [place] [address] Apr, [facility] [address] [id number] [address] [place] [address], [place] [address] Apr, [facility] [address] [id number] [address] [place] [address], [place] [address] Apr, [facility] [address] [id number] [address] [place] [address], [place] [address] Apr, [facility] [address] [id number] [address] [place] [address], [place] [address] Apr, [facility] [address] [id number] [address] [place] [address], [place] [address] Apr, [facility] [address] [id number] [address] [place] [address], [place] [address] Apr, [facility] [address] [id number] [address] [place] [address], [place] [address] Apr, [facility] [address] [id number] [address] [place] [address], [place] [address] Apr, [facility] [address] [id number] [address] [place] [address], [place] [address] Apr, [facility] [address] [id number] [address] [place] [address], [place] [address] Apr, [facility] [address] [id number] [address] [place] [address], [place] [id number] Mar, [facility] [address] [id number] [address] [place] [address], [place] [address] Mar, [facility] [address] [id number] [address] [place] [address], [place] [address] Mar, [facility] [address] [id number] [address] [place] [address], [place] [address] Mar, [facility] [address] [id number] [address] [place] [address], [place] [address] Mar, [facility] [address] [id number] [address] [place] [address], [place] [address] Mar, [facility] [address] [id number] [address] [place] [address], [place] [address] Feb, [facility] [address] [id number] [address] [place] [address], [place] [address] Feb, [facility] [address] [id number] [address] [place] [address], [place] [address] Feb, [facility] [address] [id number] [address] [place] [address], [place] [address] Feb, [facility] [address] [id number] [address] [place] [address], [place] [address] Feb, [facility] [address] [id number] [address] [place] [address], [place] [address] Feb, [facility] [address] [id number] [facility] [place] [id number] Feb, [facility] [address] [id number] [address] [place] [address], [place] [id number] Feb, [facility] [address] [id number] [address] [place] [address], [place] [id number] Feb, [facility] [address] [id number] [address] [place] [address], [place] [id number] Feb, [facility] [address] [id number] [address] [place] [address], [place] [id number] Feb, [facility] [address] [id number] [address] [place] [address], [place] [id number] Feb, [facility] [address] [id number] [address] [place] [address], [place] [id number] Feb, [facility] [address] [id number] [address] [place] [address], [place] [id number] Feb, [facility] [address] [id number] [address] [place] [address], [place] [id number] January, [facility] [address] [id number] [address] [place] [address], [place] [id number] January, [facility] [address] [id number] [address] [place] [address], [place] [id number] January, [facility] [address] [id number] [address] [place] [address], [place] [id number] January, [facility] [address] [id number] [address] [place] [address], [place] [id number] January, [facility] [address] [id number] [address] [place] [address], [place] [id number] January, [facility] [address] [id number] [address] [place] [address], [place] [id number] Dec, [facility] [address] [id number] [address] [place] [address], [place] [id number] Dec, [facility] [address] [id number] [address] [place] [address], [place] [id number] Dec, [facility] [address] [id number] [address] [place] [address], [place] [id number] Dec, [facility] [address] [id number] [address] [place] [address], [place] [id number] Dec, [facility] [address] [id number] [address] [place] [address], [place] [id number] Dec, [facility] [address] [id number] [address] [place] [address], [place] [id number] Dec, [facility] [address] [id number] [address] [place] [address], [place] [id number] Dec, [facility] [address] [id number] [address] [place] [address], [place] [id number] Nov, [facility] [address] [id number] [address] [place] [address], [place] [id number] Nov, [facility] [address] [id number] [address] [place] [address], [place] [id number] Nov, [facility] [address] [id number] [address] [place] [address], [place] [id number] Nov, [facility] [address] [id number] [address] [place] [address], [place] [id number] Nov, [facility] [address] [id number] [address] [place] [address], [place] [id number] Nov, [facility] [address] [id number] [address] [place] [address], [place] [id number] Nov, [facility] [address] [id number] [address] [place] [address], [place] [id number] Nov, [facility] [address] [id number] [address] [place] [address], [place] [id number] Oct, [facility] [address] [id number] [address] [place] [address], [place] [id number] Oct, [facility] [address] [id number] [address] [place] [address], [place] [id number] Oct, [facility] [address] [id number] [address] [place] [address], [place] [id number] Oct, [facility] [address] [id number] [address] [place] [address], [place] [id number] Oct, [facility] [address] [id number] [address] [place] [address], [place] [id number] Oct, [facility] [address] [id number] [address] [place] [address], [place] [id number] Oct, [facility] [address] [id number] [address] [place] [address], [place] [id number] Oct, [facility] [address] [id number] [address] [place] [address], [place] [id number] Oct, [facility] [address] [id number] [address] [place] [address], [place] [id number] Oct, [facility] [address] [id number] [address] [place] [address], [place] [address] Sep, [facility] [address] [id number] [address] [place] [address], [place] [address] Sep, [facility] [address] [id number] [address] [place] [address], [place] [id number] Sep, [facility] [address] [id number] [address] [place] [address], [place] [address] Sep, [facility] [address] [id number] [address] [place] [address], [place] [address] Sep, [facility] [address] [id number] [address] [place] [address], [place] [id number] Sep, [facility] [address] [id number] [address] [place] [address], [place] [id number] Aug, [facility] [address] [id number] [address] [place] [address], [place] [address] Aug, [facility] [address] [id number] [address] [place] [address], [place] [id number] Aug, [facility] [address] [id number] [address] [place] [address], [place] [id number] Aug, [facility] [address] [id number] [address] [place] [address], [place] [address] Aug, [facility] [address] [id number] [address] [place] [address], [place] [id number] Aug, [facility] [address] [id number] [address] [place] [address], [place] [id number] Aug, [facility] [address] [id number] [address] [place] [address], [place] [id number] Aug, [facility] [address] [id number] [address] [place] [address], [place] [id number] Jul, [facility] [address] [id number] [address] [place] [address], [place] [address] Jul, [facility] [address] [id number] [address] [place] [address], [place] [id number] Jul, [facility] [address] [id number] [address] [place] [address], [place] [id number] Jul, [facility] [address] [id number] [address] [place] [id number] Jul, [facility] [address] [id number] [address] [place] [address], [place] [id number] Jul, [facility] [address] [id number] [address] [place] [address], [place] [id number] Jun, [facility] [address] [id number] [address] [place] [address], [place] [id number] Jun, [facility] [address] [id number] [address] [place] [address] [place] [id number] Jun, [facility] [address] [id number] [address] [place] [address], [place] [id number] 24 May, 2013 [facility] [address] [id number] [address] [place] [address], [place] [id number] May, [facility] [address] [id number] [address] [place] [address], [place] [id number] May, [facility] [address] [id number] [address] [place] [address], [place] [id number] Apr, [facility] [address] [id number] [address] [place] [address], [place] [address] Apr, [facility] [address] [id number] [address] [place] [address], [place] [address] Apr, [facility] [address] [id number] [address] [place] [address], [place] [id number] Apr, [facility] [address] [id number] [address] [place] [address], [place] [address] Mar, [facility] [address] [id number] [address] [place] [address], [place] [id number] Mar, [facility] [address] [id number] [address] [place] [address], [place] [address] Mar, [facility] [address] [id number] [address] [place] [address], [place] [address] Mar, [facility] [address] [id number] [address] [place] [address], [place] [address] Feb, [facility] [address] [id number] [address] [place] [address], [place] [address] Feb, [facility] [address] [id number] [address] [place] [address], [place] [address] Feb, [facility] [address] [id number] [address] [place] [address], [place] [address] Feb, [facility] [address] [id number] [address] [place] [address], [place] [address] January, [facility] [address] [id number] [address] [place] [address], [place] [address] January, [facility] [address] [id number] [address] [place] [address], [place] [id number] January, [facility] [address] [id number] [address] [place] [address], [place] [address] Nov, [facility] [address] [id number] [address] [place] [address], [place] [id number] Nov, [facility] [address] [id number] [address] [place] [address], [place] [address] Oct, [facility] [address] [id number] [address] [place] [address], [place] [address] Oct, [facility] [address] [id number] [address] [place] [address], [place] [address] Oct, [facility] [address] [id number] [address] [place] [address], [place] [id number] Oct, [facility] [address] [id number] [address] [place] [address], [place] [id number] Sep, [facility] [address] [id number] [address] [place] [address], [place] [address] Sep, [facility] [address] [id number] [address] [place] [address], [place] [address] Sep, [facility] [address] [id number] [address] [place] [address], [place] [address] Aug, [facility] [address] [id number] [address] [place] [address], [place] [address] Aug, [facility] [address] [id number] [address] [place] [address], [place] [address] Aug, [facility] [address] [id number] [address] [place] [address], [place] [address] Aug, [facility] [address] [id number] [address] [place] [address], [place] [address] Aug, [facility] [address] [id number] [address] [place] [address], [place] [address] Aug, [facility] [address] [id number] [address] [place] [address], [place] [address] Jul, [facility] [address] [id number] [address] [place] [address], [place] [address] Jul, [facility] [address] [id number] [address] [place] [address], [place] [address] Jun, [facility] [address] [id number] [address] [place] [address], [place] [address] Jun, [facility] [address] [id number] [address] [place] [address], [place] [address] Jun, [facility] [address] [id number] [address] [place] [address], [place] [address] Apr, [facility] [address] [id number] [address] [place] [address], [place] [address] Apr, [facility] [address] [id number] [address] [place] [address], [place] [address] Mar, [facility] [address] [id number] [address] [place] [address], [place] [id number] Mar, [facility] [address] [id number] [address] [place] [id number] Mar, [facility] [address] [id number] [address] [place] [address], [place] [address] Mar, [facility] [address] [id number] [address] [place] [address], [place] [address] Feb, [facility] [address] [id number] [address] [place] [address], [place] [id number] Feb, [facility] [address] [id number] [address] [place] [address], [place] [address] Feb, [facility] [address] [id number] [address] [place] [address], [place] [id number] January, [facility] [address] [id number] [address] [place] [address], [place] [address] January, [facility] [address] [id number] [address] [place] [address], [place] [id number] January, [facility] [address] [id number] [address] [place] [address], [place] [id number] January, [facility] [address] [id number] [address] [place] [address], [place] [address] Dec, [facility] [address] [id number] [address] [place] [address], [place] [address] Dec, [facility] [address] [id number] [address] [place] [address], [place] [address] Nov, [facility] [address] [id number] [address] [place] [address], [place] [address] Nov, [facility] [address] [id number] [address] [place] [address], [place] [address] 16 Oct, 2011 [facility] [address] [id number] [address] [place] [address], [place] [address] Oct, [facility] [address] [id number] [address] [place] [address], [place] [address] Sep, [facility] [address] [id number] [address] [place] [address], [place] [id number] Sep, [facility] [address] [id number] [address] [place] [address], [place] [id number] Sep, [facility] [address] [id number] [address] [place] [address], [place] [id number] Sep, [facility] [address] [id number] [address] [place] [address], [place] [address] Aug, [facility] [address] [id number] [address] [place] [id number] 16 Aug, 2011 [facility] [address] [id number] [address] [place] [id number] Aug, [facility] [address] [id number] [address] [place] [id number] Jul, [facility] [address] [id number] [address] [place] [id number] Aug, [facility] [address] [id number] [address] [place] [address], [place] [address] Aug, [facility] [address] [id number] [address] [place] [id number] Aug, [facility] [address] [id number] [address] [place] [id number] Aug, [facility] [address] [id number] [address] [place] [id number] Jul, [facility] [address] [id number] [address] [place] [id number] Jul, [facility] [address] [id number] [address] [place] [id number] Jul, [facility] [address] [id number] [address] [place] [id number] Jun, [facility] [address] [id number] [address] [place] [id number] Jun, [facility] [address] [id number] [address] [place] [id number] Jun, [facility] [address] [id number] [address] [place] [id number] Apr, [facility] [address] [id number] [address] [place] [id number] Mar, IMMUNIZATIONS No Known Immunizations SOCIAL HISTORY Never Assessed REASON FOR VISIT PLAN OF CARE VITAL SIGNS Height 66 in 2014-09-18 Weight 264 lbs 2014-09-18 Temperature 98.8 degrees Fahrenheit 2014-09-18 Heart Rate 74 bpm 2014-09-18 Respiratory Rate 24 2014-09-18 Blood pressure systolic 138 mmHg 2014-09-18 Blood pressure diastolic 78 mmHg 2014-09-18 MEDICATIONS No Known Medications RESULTS No Results [...]
--- OUTSIDE RECORDS SUMMARY | 2020-03-18 15:02 | XMS REPORT ---
Author Author George WAYNE Organization [facility] Address [address] [place] [address] Care Team Providers Care Broke Man Name Role Phone REYNA WAYNE Unavailable PROBLEMS Type Condition ICD9-CM Code THF72-OL Code Onset Dates Condition S tatus SNOMED Code Problem Hypertension, benign I10 Active 68435794 Problem Other chronic pain G89.29 Active 8 4717808 Problem Lumbago with sciatica, unspecified side M54.40 Active 918874955 Problem Controlled type 2 diabetes m ellitus without complication, without long- term current use of insulin E11.9 Active 461967338 Problem Lumbago with sciatica, right side M54.41 Active 928600219 Problem Adjustment disorder with disturbance of emotion F4 3.29 Active 40059040 Problem MELE (obstructive sleep apnea) G47.33 Active 98553953 Problem Non morbid obesity E66.9 Active 4 88152774 Problem Hammer toe of left foot M20.42 Active 671437331 Problem Mood disorder F39 Active 816055 05 Problem Deformity of left foot M21.962 Active 917004950 Problem Lumbago with sciatica, left side M54.42 Active 354146100 Problem Erectile dysfunction due to diseases classified elsewhere N52.1 Active 068184851 Problem Obstructive sleep apnea syndrome G47.33 Active 42576086 Problem Type 2 diabetes mellitus wit h diabetic neuropathy, without long-term current use of insulin E11.40 Active 74401 006 Problem Essential hypertension I10 Active 46910783 ALLERGIES No Information ENCOUNTERS Encounter Location Date Diagnosis [facility] [address] [facility] [place] [id number] [address] [place] [phone] 13 Dec, 2019 Acute diffuse otitis externa of left ear H60.312 [facility] [address] [facility] [place] [id number] [address] [place] [phone] 18 Nov, 2019 Viral URI J06.9 and Flu-like symptoms R68.89 [place] [address] [facility] [place] [id number] [address] [place] [phone] 09 Nov, 2019 Type 2 diabetes mellitus wit h diabetic neuropathy, without long- term current use of insulin E11.40 ; Family history of prostate cancer Z80.42 and Prostate cancer screening Z12.5 [place] [address] [place] [id number] [address] [place] [phone] Nov, [place] [address] [place] [id number] [address] [place] [phone] Sep, [place] [address] [place] [id number] [address] [place] [phone] Aug, [place] [address] [place] [id number] [place] [phone] Jul, Lumbago with sciatica, unspe cified side M54.40 [place] [address] [place] [id number] [address] [place] [phone] Jun, Lumbago with sciatica, unspe cified side M54.40 [place] [address] [place] [id number] [address] [place] [phone] Jun, URI, acute J06.9 [place] [address] [place] [id number] [address] [place] [phone] May, Lumbago with sciatica, unspe cified side M54.40 [place] [address] [facility] [place] [id number] [address] [place] [phone] May, [place] [address] [place] [id number] [address] [place] [phone] 12 May, 2019 Type 2 diabetes mellitus wit h diabetic neuropathy, without long- term current use of insulin E11.40 and Hammer toe of left foot M20.42 [place] [address] [facility] [place] [id number] [address] [place] [phone] May, [place] [address] [place] [id number] [address] [place] [phone] May, [facility] [address] [place] [id number] [address] [place] [phone] May, [facility] [address] [place] [id number] [address] [place] [phone] Apr, Lumbago with sciatica, unspe cified side M54.40 [facility] [address] [place] [id number] [address] [place] [phone] Apr, [facility] [address] [place] [id number] [address] [place] [phone] Apr, [address] [id number] [address] Apr, Hammer toe of left foot M20. 42 ; Chest pain R07.9 ; Preoperative examination Z01.818 and Morbid obesity E66.01 [place] [address] [place] [id number] [address] [place] [phone] Apr, Morbid obesity E66.01 ; Bron chitis J40 and High risk medications (not anticoagulants) long-term use Z79.899 [place] [address] [place] [id number] [address] [place] [phone] Apr, Lumbago with sciatica, unspe cified side M54.40 [facility] [address] [place] [id number] [address] [place] [phone] Apr, [facility] [address] [place] [id number] [address] [place] [phone] Mar, Lumbar neuritis M54.16 and M orbid obesity E66.01 [facility] [address] [place] [id number] [address] [place] [phone] Mar, [facility] [address] [place] [id number] [address] [place] [phone] Mar, [facility] [address] [place] [id number] [address] [place] [phone] Mar, Lumbago with sciatica, unspe cified side M54.40 [facility] [address] [id number] [address] [place] [phone] Mar, Morbid obesity E66.01 ; Gabe lara R05 ; 2+ pitting edema R60.9 and Controlled type 2 diabetes mellitus without complication, without long-term current use of insulin E11.9 [facility] [address] [id number] [address] [place] [phone] Feb, [facility] [address] [id number] [address] [place] [phone] Feb, Lumbago with sciatica, unspe cified side M54.40 [facility] [address] [id number] [address] [place] [phone] Feb, [facility] [address] [id number] [address] [place] [phone] Feb, Controlled type 2 diabetes m ellitus without complication, without long-term current use of insulin E11.9 and Morbid obesity E66.01 [facility] [address] [id number] [address] [place] [phone] January, Deformity of left foot M21.9 62 [facility] [address] [id number] [address] [place] [phone] January, [facility] [address] [id number] [address] [place] [phone] January, Lumbago with sciatica, unspe cified side M54.40 [facility] [address] [id number] [address] [place] [phone] January, [facility] [address] [id number] [address] [place] [phone] January, Lumbago with sciatica, unspe cified side M54.40 [facility] [address] [id number] [address] [place] [phone] January, [facility] [address] [facility] [place] [id number] [address] [place] [phone] January, Acute right-sided thoracic b ack pain M54.6 [facility] [address] [place] [id number] [address] [place] [phone] January, Acute right-sided thoracic b ack pain M54.6 [facility] [address] [phone] January, Chest pain, unspecified type R07.9 ; Morbid obesity E66.01 and Scabies B86 [facility] [address] [place] [id number] [address] [place] [phone] Dec, Lumbago with sciatica, unspe cified side M54.40 [place] [address] [address] Dec, Toenail fungus B35.1 [facility] [address] [place] [id number] [address] [place] [address] Dec, Toenail fungus B35.1 [facility] [address] [address] Dec, Acute right-sided thoracic b ack pain M54.6 [place] [address] [place] [id number] [address] [place] [phone] Dec, Lumbago with sciatica, unspe cified side M54.40 [facility] [address] [place] [id number] [address] [place] [phone] Nov, Hammer toe of left foot M20. 42 ; Deformity of left foot M21.962 and Type 2 diabetes mellitus with diabetic neuropathy, without long-term current use of insulin E11.[address] [facility] [address] [facility] [place] [id number] [address] [place] [phone] Nov, Acute right-sided thoracic b ack pain M54.6 ; Morbid obesity E66.01 and Rt flank pain R10.9 [place] [address] [facility] [place] [id number] [address] [place] [address] Nov, Lumbago with sciatica, unspe cified side M54.40 [place] [address] [place] [id number] [address] [place] [phone] Oct, Lumbago with sciatica, unspe cified side M54.40 [place] [address] [place] [id number] [place] [phone] Sep, Lumbago with sciatica, unspe cified side M54.40 [place] [address] [place] [id number] [address] [place] [phone] Sep, [place] [address] [place] [id number] [place] [phone] Sep, BMI 40.0-44.9, adult Z68.41 ; Lumbago with sciatica, left side M54.42 ; Lumbago with sciatica, right side M54.41 and Other chronic pain G89.29 [place] [address] [place] [id number] [address] [place] [phone] Aug, Lumbago with sciatica, unspe cified side M54.40 [place] [address] [place] [id number] [address] [place] [phone] Aug, Type 2 diabetes mellitus wit h diabetic neuropathy, without long- term current use of insulin E11.40 ; Hammer toe of left foot M20.42 ; Hypertension, benign I10 and Frequent headaches R51 [place] [address] [place] [id number] [address] [place] [phone] Jul, Lumbago with sciatica, unspe cified side M54.40 [place] [address] [place] [id number] [address] [place] [phone] Jul, [place] [address] [place] [id number] [address] [place] [phone] Jul, Essential hypertension I10 a nd Controlled type 2 diabetes mellitus without complication, without long-term current use of insulin E11.9 [facility] [address] [facility] [place] [id number] [address] [place] [phone] Jul, Essential hypertension I10 ; Controlled type 2 diabetes mellitus without complication, without long-term current use of insulin E11.9 and BMI 40.0-44.9, adult Z68.41 [facility] [address] [facility] [place] [id number] [address] [place] [phone] Jul, Dysfunction of left eustachi an tube H69.82 [facility] [address] [id number] [address] [place] [phone] Jul, Lumbago with sciatica, unspe cified side M54.40 [facility] [address] [id number] [address] [place] [address] [phone] Jun, Dental examination Z01.20 [facility] [address] [facility] [place] [id number] [address] [place] [phone] Jun, Lumbago with sciatica, unspe cified side M54.40 and Encounter for immunization Z23 [facility] [address] [facility] [place] [id number] [address] [place] [phone] Jun, Dysfunction of left eustachi an tube H69.82 [place] [address] [id number] [place] [address] [id number] Jun, Dental examination Z01.20 [facility] [address] [id number] [address] [place] [address] Jun, Other chronic pain G89.29 [facility] [address] [id number] [address] [place] [address] [id number] Jun, Dental examination Z01.20 [facility] [address] [id number] [address] [place] [phone] Jun, [facility] [address] [id number] [address] [place] [phone] Jun, Bronchitis J40 ; Dysfunction of left eustachian tube H69.82 and BMI 45.0-49.9, adult Z68.42 [facility] [address] [place] [id number] [address] [place] [phone] Jun, Lumbago with sciatica, unspe cified side M54.40 [facility] [address] [place] [id number] [address] [place] [phone] May, Type 2 diabetes mellitus wit h diabetic neuropathy, without long- term current use of insulin E11.40 and Hypertension, benign I10 [facility] [address] [place] [id number] [address] [place] [phone] May, Lumbago with sciatica, unspe cified side M54.40 [facility] [address] [place] [id number] [address] [place] [phone] Apr, [facility] [address] [address] Apr, Controlled type 2 diabetes m ellitus without complication, without long-term current use of insulin E11.9 ; Insect bite (nonvenomous), right ankle, initial encounter S90.561A ; Local infection of the skin and subcutaneous tissue, unspecified L08.9 ; Acute swimmer''s ear of left side H60.332 and BMI 45.0-49.9, adult Z68.42 [place] [address] [place] [id number] [address] [place] [phone] Apr, Lumbago with sciatica, unspe cified side M54.40 [facility] [address] [place] [id number] [address] [place] [phone] Mar, [place] [address] [place] [id number] [place] [phone] Mar, Lumbago with sciatica, unspe cified side M54.40 [facility] [address] [place] [id number] [address] [place] [phone] Feb, Lumbago with sciatica, unspe cified side M54.40 [facility] [address] [facility] [place] [id number] [address] [place] [phone] Feb, BMI 45.0-49.9, adult Z68.42 and Obstructive sleep apnea syndrome G47.33 [place] [address] [place] [id number] [address] [place] [phone] January, Lumbar neuritis M54.16 [place] [address] [facility] [place] [id number] [address] [place] [phone] January, Lumbago with sciatica, unspe cified side M54.40 [place] [address] [place] [id number] [place] [phone] Dec, Controlled type 2 diabetes m maribell without complication, without long-term current use of insulin E11.9 ; Erectile dysfunction due to diseases classified elsewhere N52.1 and Mood disorder F39 [place] [address] [place] [id number] [address] [place] [address] Dec, Lumbago with sciatica, unspe cified side M54.40 [place] [address] [place] [id number] [address] [place] [phone] Dec, Obstructive sleep apnea synd luis G47.33 [place] [address] [place] [id number] [address] [place] [phone] Nov, Lumbago with sciatica, unspe cified side M54.40 ; Hypertension, benign I10 and Mood disorder F39 [facility] [address] [place] [id number] [address] [place] [phone] Nov, Other chronic pain G89.29 [facility] [address] [facility] [place] [id number] [address] [place] [address] Nov, Lumbago with sciatica, unspe cified side M54.40 [facility] [address] [id number] [address] [place] [address] [id number] Nov, Dental examination Z01.20 [facility] [address] [facility] [place] [id number] [address] [place] [phone] Oct, [facility] [address] [facility] [place] [id number] [address] [place] [address] Oct, Lumbago with sciatica, unspe cified side M54.40 [facility] [address] [facility] [place] [id number] [address] [place] [phone] Oct, Lumbago with sciatica, unspe cified side M54.40 [facility] [address] [facility] [place] [id number] [address] [place] [phone] Oct, [facility] [address] [facility] [place] [id number] [address] [place] [phone] Oct, [facility] [address] [facility] [id number] [address] [place] [address] [id number] Oct, Dental examination Z01.20 [facility] [address] [facility] [place] [id number] [address] [place] [phone] Oct, [facility] [address] [facility] [place] [id number] [address] [place] [phone] Oct, Pain in right knee M25.561 [facility] [address] [facility] [place] [id number] [address] [place] [id number] Sep, [facility] [address] [facility] [place] [id number] [address] [place] [phone] Sep, Other chronic pain G89.29 [facility] [address] [facility] [place] [id number] [address] [place] [phone] Sep, Lumbago with sciatica, unspe cified side M54.40 [facility] [address] [facility] [place] [id number] [address] [place] [phone] Sep, [facility] [address] [facility] [place] [id number] [address] [place] [phone] Sep, Viral URI J06.9 and BMI 45.0 -49.9, adult Z68.42 [facility] [address] [facility] [place] [id number] [address] [place] [address] Aug, Foreign body hand S60.559A a nd BMI 45.0-49.9, adult Z68.42 [facility] [address] [facility] [place] [id number] [address] [place] [phone] Aug, [facility] [address] [place] [id number] [address] [place] [phone] Aug, Lumbago with sciatica, unspe cified side M54.40 [facility] [address] [facility] [place] [id number] [address] [place] [phone] Aug, Vertigo R42 ; Dysfunction of both eustachian tubes H69.83 ; Low back pain M54.5 and Other chronic pain G89.29 [facility] [address] [facility] [place] [id number] [address] [place] [phone] Aug, Dizziness R42 and Acute bila teral otitis media H66.93 [facility] [address] [facility] [place] [id number] [address] [place] [phone] Aug, Lumbago with sciatica, unspe cified side M54.40 [facility] [address] [facility] [id number] [address] [place] [address] [phone] Jul, Dental examination Z01.20 [facility] [address] [place] [id number] [address] [place] [phone] Jul, [facility] [address] [facility] [place] [id number] [address] [place] [phone] Jul, [facility] [address] [facility] [place] [id number] [address] [place] [phone] Jul, Dysfunction of both eustachi an tubes H69.83 [facility] [address] [facility] [id number] [address] [place] [phone] 07 Jul, 2017 Controlled type 2 diabetes m taraitus without complication, without long-term current use of insulin E11.9 [facility] [address] [id number] [address] [place] [phone] Jul, Controlled type 2 diabetes m ellitus without complication, without long-term current use of insulin E11.[address] [facility] [address] [id number] [address] [place] [phone] Jul, Dizziness R42 and BMI 40.0-4 4.9, adult Z68.41 [facility] [address] [facility] [id number] [address] [place] [phone] Jul, Controlled type 2 diabetes m ellitus without complication, without long-term current use of insulin E11.9 [facility] [address] [facility] [id number] [address] [place] [phone] Jul, Lumbago with sciatica, unspe cified side M54.40 [facility] [id number] [place] [address] [id number] Jul, Dental examination Z01.20 [facility] [address] [id number] [address] [place] [phone] Jun, [facility] [id number] [place] [address] [id number] Jun, Dental examination Z01.20 [facility] [address] [facility] [id number] [address] [place] [phone] Jun, Controlled type 2 diabetes m ellitus without complication, without long-term current use of insulin E11.9 [facility] [address] [id number] [address] [place] [phone] Jun, Lumbago with sciatica, unspe cified side M54.40 [facility] [id number] [place] [address] [id number] May, Dental examination Z01.20 [facility] [address] [id number] [address] [place] [phone] May, Controlled type 2 diabetes m ellitus without complication, without long-term current use of insulin E11.9 [facility] [address] [id number] [address] [place] [id number] 19 May, 2017 Dental examination Z01.20 [facility] [address] [facility] [place] [id number] [address] [place] [phone] 18 May, 2017 Bronchitis J40 ; Dry mouth R 68.2 ; Non morbid obesity E66.9 and Controlled type 2 diabetes mellitus without complication, without long-term current use of insulin E11.9 [facility] [address] [facility] [place] [id number] [address] [place] [phone] 16 May, 2017 Encounter for immunization Z [address] [place] [place] [address] [facility] [place] [id number] [place] [phone] 07 May, 2017 Lumbago with sciatica, unspe cified side M54.40 [facility] [address] [facility] [place] [id number] [address] [place] [phone] 05 May, 2017 [facility] [id number] [place] [address] [id number] Apr, Dental examination Z01.20 [facility] [address] [id number] [address] [place] [phone] Apr, Lumbago with sciatica, unspe cified side M54.40 [facility] [address] [facility] [place] [facility] [id number] [address] [place] [phone] Mar, Lumbago with sciatica, left side M54.42 [facility] [address] [facility] [place] [id number] [address] [place] [phone] Mar, [facility] [address] [facility] [place] [id number] [address] [place] [phone] Mar, Lumbar neuritis M54.16 [facility] [address] [facility] [place] [id number] [address] [place] [phone] Mar, [facility] [address] [id number] [address] [place] [address] [id number] Mar, Dental examination Z01.20 [place] [address] [facility] [place] [id number] [address] [place] [phone] Mar, MELE (obstructive sleep apnea ) G47.33 ; Neuropathy involving both lower extremities G57.93 and Frequent headaches R51 [place] [address] [facility] [place] [id number] [address] [place] [phone] Mar, Lumbago with sciatica, unspe cified side M54.40 [place] [address] [place] [id number] [address] [place] [phone] Feb, Lumbago with sciatica, unspe cified side M54.40 and Controlled type 2 diabetes mellitus without complication, without long-term current use of insulin E11.9 [place] [address] [place] [id number] [place] [phone] January, Hypertension, benign I10 and Bilateral low back pain with sciatica, sciatica laterality unspecified M54.40 [place] [address] [place] [id number] [place] [phone] January, Hypertension, benign I10 ; L umbago with sciatica, unspecified side M54.40 ; Other chronic pain G89.29 and Controlled type 2 diabetes mellitus without complication, without long-term current use of insulin E11.9 [place] [address] [place] [id number] [address] [place] [phone] January, Lumbar neuritis M54.16 [place] [address] [place] [id number] [address] [place] [phone] January, [place] [address] [place] [id number] [address] [place] [phone] Dec, Lumbago with sciatica, right side M54.41 and Lumbar neuritis M54.16 [place] [address] [place] [id number] [address] [place] [phone] Dec, Lumbar neuritis M54.16 [place] [address] [place] [id number] [address] [place] [phone] Dec, Lumbar neuritis M54.16 [place] [address] [place] [id number] [address] [place] [phone] Nov, Lumbar neuritis M54.16 ; Lum bago with sciatica, right side M54.41 ; Controlled type 2 diabetes mellitus without complication, without long-term current use of insulin E11.9 and Rash and nonspecific skin eruption R21 [place] [address] [place] [id number] [address] [place] [phone] Nov, Lumbar neuritis M54.16 and P derickpeter miroslava L23.7 [place] [address] [place] [id number] [address] [place] [phone] Oct, Lumbar neuritis M54.16 ; Cou ghing R05 and Mood disorder F39 [place] [address] [place] [id number] [address] [place] [address] Sep, Lumbago with sciatica, right side M54.41 [place] [address] [place] [id number] [address] [place] [phone] Sep, Adjustment disorder with dis turbance of emotion F43.29 and Pain management R52 [place] [address] [place] [id number] [address] [place] [phone] Sep, [place] [address] [place] [id number] [address] [place] [phone] Sep, [place] [address] [place] [id number] [address] [place] [phone] Sep, Controlled type 2 diabetes evens reyna without complication, without long-term current use of insulin E11.9 and Lumbago with sciatica, unspecified side M54.40 [place] [address] [place] [id number] [address] [place] [phone] Aug, Controlled type 2 diabetes evens reyna without complication, without long-term current use of insulin E11.9 ; Pain in right knee M25.561 ; Pain in left knee M25.562 ; Other chronic pain G89.29 ; Lumbago with sciatica, right side M54.41 ; Neck pain M54.2 and Encounter for immunization Z23 [facility] [address] [id number] [address] [place] [phone] Jul, [facility] [address] [id number] [address] [place] [phone] Jul, Controlled type 2 diabetes m maribell without complication, without long-term current use of insulin E11.9 [facility] [address] [id number] [address] [place] [phone] Jul, [facility] [address] [id number] [address] [place] [phone] Jul, [facility] [address] [id number] [address] [place] [phone] Jul, Lumbago with sciatica, left side M54.42 ; Lumbago with sciatica, right side M54.41 and Other chronic pain G89.29 [facility] [address] [id number] [address] [place] [phone] Jul, [facility] [address] [id number] [address] [place] [phone] Jul, [facility] [address] [id number] [address] [place] [phone] Jun, [facility] [address] [id number] [address] [place] [phone] Jun, Lumbago with sciatica, right side M54.41 and Other chronic pain G89.29 [facility] [address] [id number] [address] [place] [phone] Jun, Cervicalgia M54.2 ; Lumbago with sciatica, unspecified side M54.40 and Other chronic pain G89.29 [facility] [address] [id number] [address] [place] [phone] 15 May, 2016 Pain in right knee M25.561 ; Pain in left knee M25.562 and Other chronic pain G89.29 [facility] [address] [id number] [address] [place] [phone] May, [facility] [address] [id number] [address] [place] [phone] Apr, Other chronic pain G89.29 an d Pain in right knee M25.561 [facility] [address] [id number] [address] [place] [address] Apr, Pain in right knee M25.561 [facility] [address] [id number] [address] [place] [phone] Mar, [facility] [address] [id number] [address] [place] [phone] Mar, Mood disorder F39 and Contro lled type 2 diabetes mellitus without complication, without long-term current use of insulin E11.9 [facility] [address] [id number] [address] [place] [address] Mar, Pain in right knee M25.561 ; Pain in left knee M25.562 ; Other chronic pain G89.29 ; Obstructive sleep apnea syndrome G47.33 ; Mood disorder F39 and Controlled type 2 diabetes mellitus without complication, without long- term current use of insulin E11.9 [facility] [address] [id number] [address] [place] [phone] Mar, [facility] [address] [id number] [address] [place] [address] [id number] Feb, Dental examination Z01.20 [facility] [address] [id number] [address] [place] [phone] Feb, [facility] [address] [id number] [address] [place] [phone] Feb, Osteoarthritis of right knee , unspecified osteoarthritis type M17.9 [facility] [address] [id number] [address] [place] [phone] January, [facility] [address] [id number] [address] [place] [id number] January, Dental examination Z01.20 [facility] [address] [id number] [address] [place] [phone] January, [facility] [address] [id number] [address] [place] [address] [id number] January, Dental examination Z01.20 an d Caries K02.9 [facility] [address] [id number] [address] [place] [phone] Dec, Encounter for other preproce dural examination Z01.818 [facility] [address] [id number] [address] [place] [phone] Dec, [facility] [address] [id number] [address] [place] [phone] Dec, Knee pain M25.569 [facility] [address] [id number] [address] [place] [phone] Dec, Pain in right knee M25.561 [facility] [address] [id number] [address] [place] [phone] Dec, [facility] [address] [id number] [address] [place] [phone] Dec, [facility] [address] [id number] [address] [place] [phone] Dec, Encounter for immunization Z 23 [facility] [address] [id number] [address] [place] [phone] Dec, [facility] [address] [id number] [address] [place] [phone] Dec, [facility] [address] [id number] [address] [place] [phone] Nov, [facility] [address] [id number] [address] [place] [phone] Nov, Hypertension, benign I10 ; C ervicalgia M54.2 ; Pain in right knee M25.561 and Pain in left knee M25.562 [place] [address] [facility] [place] [id number] [address] [place] [phone] Oct, [facility] [address] [facility] [place] [id number] [address] [place] [phone] Oct, [facility] [address] [facility] [place] [id number] [address] [place] [phone] Oct, Osteoarthritis of both knees M17.0 [place] [address] [facility] [place] [id number] [address] [place] [phone] Oct, [place] [address] [facility] [place] [id number] [address] [place] [phone] Oct, Low back pain M54.5 [place] [address] [facility] [place] [id number] [address] [place] [phone] Oct, Low back pain M54.5 ; Sciati ca, unspecified side M54.30 ; Pain in right knee M25.561 ; Pain in left knee M25.562 ; Pain in right shoulder M25.511 and Pain in left shoulder M25.512 [place] [address] [facility] [place] [id number] [address] [place] [phone] Oct, [place] [address] [facility] [place] [id number] [address] [place] [phone] Sep, Pain in right hip M25.551 [place] [address] [facility] [place] [id number] [address] [place] [id number] Sep, Acute upper respiratory infe ction, unspecified J06.9 [place] [address] [facility] [place] [id number] [address] [place] [phone] Aug, Acute upper respiratory infe ction, unspecified J06.9 and Other viral agents as the cause of diseases classified elsewhere B97.89 [place] [address] [facility] [place] [id number] [address] [place] [address] Jul, Arthritis M19.90 [facility] [address] [id number] [address] [place] [phone] Jun, Arthritis M19.90 ; Pain in r ight hip M25.551 ; Pain in left hip M25.552 ; Bilateral low back pain with sciatica, sciatica laterality unspecified M54.40 ; Neck pain M54.2 ; Upper back pain M54.9 and Knee pain, unspecified laterality M25.569 [facility] [address] [id number] [address] [place] [phone] May, Osteoarthritis of both knees 715.96 [facility] [address] [id number] [address] [place] [phone] May, Rash 782.1 [facility] [address] [id number] [address] [place] [phone] Apr, Lumbar strain 847.2 [facility] [address] [id number] [address] [place] [phone] Apr, Rash 782.1 [facility] [address] [id number] [address] [place] [phone] Mar, Rash 782.1 [facility] [address] [facility] [place] [id number] [address] [place] [phone] Feb, Rash 782.1 ; Hemorrhoids 455 .6 and Constipation 564.00 [facility] [address] [id number] [address] [place] [phone] Feb, Osteoarthritis of both knees 715.96 [facility] [address] [id number] [address] [place] [phone] January, [facility] [address] [id number] [address] [place] [phone] Dec, [facility] [address] [facility] [place] [id number] [address] [place] [phone] Dec, [facility] [address] [id number] [address] [place] [phone] 13 Dec, 2014 [facility] [address] [id number] [address] [place] [address], [place] [id number] 18 Nov, 2014 [facility] [address] [id number] [address] [place] [address], [place] [id number] 18 Nov, 2014 [facility] [address] [id number] [address] [place] [address], [place] [id number] 18 Nov, 2014 [facility] [address] [id number] [address] [place] [address], [place] [id number] 18 Nov, 2014 [facility] [address] [id number] [address] [place] [address], [place] [id number] Nov, [facility] [address] [id number] [address] [place] [address], [place] [id number] Nov, [facility] [address] [id number] [address] [place] [address], [place] [id number] Oct, [facility] [address] [id number] [address] [place] [address], [place] [id number] Oct, [facility] [address] [id number] [address] [place] [address], [place] [id number] Oct, 2014 [facility] [address] [id number] [address] [place] [address], [place] [address] Oct, [facility] [address] [id number] [address] [place] [address], [place] [address] Oct, 2014 [facility] [address] [id number] [address] [place] [address], [place] [address] Oct, 2014 [facility] [address] [id number] [address] [place] [address], [place] [id number] Oct, 2014 [facility] [address] [id number] [address] [place] [address], [place] [id number] Oct, 2014 [facility] [address] [id number] [address] [place] [address], [place] [id number] Oct, [facility] [address] [id number] [address] [place] [address], [place] [address] Oct, [facility] [address] [id number] [address] [place] [address], [place] [address] Oct, [facility] [address] [id number] [address] [place] [address], [place] [address] Sep, [facility] [address] [id number] [address] [place] [address], [place] [address] Sep, [facility] [address] [id number] [address] [place] [address], [place] [address] Sep, [facility] [address] [id number] [address] [place] [address], [place] [address] Sep, [facility] [address] [id number] [address] [place] [address], [place] [address] Sep, [facility] [address] [id number] [address] [place] [address], [place] [address] Sep, [facility] [address] [id number] [address] [place] [address], [place] [address] Aug, [facility] [address] [id number] [address] [place] [address], [place] [id number] Aug, [facility] [address] [id number] [address] [place] [address], [place] [address] Aug, [facility] [address] [id number] [address] [place] [address], [place] [address] Aug, [facility] [address] [id number] [address] [place] [address], [place] [address] Aug, [facility] [address] [id number] [address] [place] [address], [place] [address] Aug, [facility] [address] [id number] [address] [place] [address], [place] [address] Aug, [facility] [address] [id number] [address] [place] [address], [place] [address] Aug, [facility] [address] [id number] [address] [place] [address], [place] [address] Aug, [facility] [address] [id number] [address] [place] [address], [place] [address] Aug, [facility] [address] [id number] [address] [place] [address], [place] [address] Jul, [facility] [address] [id number] [address] [place] [address], [place] [address] Jul, [facility] [address] [id number] [address] [place] [address], [place] [id number] Jul, [facility] [address] [id number] [address] [place] [address], [place] [address] Jul, [facility] [address] [id number] [address] [place] [address], [place] [address] Jun, [facility] [address] [id number] [address] [place] [address], [place] [address] Jun, [facility] [address] [id number] [address] [place] [address], [place] [address] Jun, [facility] [address] [id number] [address] [place] [address], [place] [address] Jun, [facility] [address] [id number] [address] [place] [address], [place] [address] Jun, [facility] [address] [id number] [address] [place] [address], [place] [address] Jun, [facility] [address] [id number] [address] [place] [address], [place] [address] Jun, [facility] [address] [id number] [address] [place] [address], [place] [address] Jun, [facility] [address] [id number] [address] [place] [address], [place] [address] May, [facility] [address] [id number] [facility] [place] [address] 24 May, 2013 [facility] [address] [id number] [facility] [place] [address] 19 May, 2014 [facility] [address] [id number] [facility] [place] [address] 19 May, 2013 [facility] [address] [id number] [address] [place] [address], [place] [address] 15 May, 2014 [facility] [address] [id number] [address] [place] [address], [place] [id number] 15 May, 2014 [facility] [address] [id number] [address] [place] [address], [place] [address] 15 May, 2014 [facility] [address] [id number] [address] [place] [address], [place] [address] May, [facility] [address] [id number] [address] [place] [address], [place] [address] Apr, [facility] [address] [id number] [address] [place] [address], [place] [address] Apr, [facility] [address] [id number] [address] [place] [address], [place] [address] Apr, [facility] [address] [id number] [address] [place] [address], [place] [address] Apr, [facility] [address] [id number] [address] [place] [address], [place] [id number] Apr, [facility] [address] [id number] [address] [place] [address], [place] [id number] Apr, [facility] [address] [id number] [address] [place] [address], [place] [id number] Apr, [facility] [address] [id number] [address] [place] [address], [place] [id number] Apr, [facility] [address] [id number] [address] [place] [address], [place] [id number] Apr, [facility] [address] [id number] [address] [place] [address], [place] [id number] Apr, [facility] [address] [id number] [address] [place] [address], [place] [id number] Apr, [facility] [address] [id number] [address] [place] [address], [place] [id number] Apr, [facility] [address] [id number] [address] [place] [address], [place] [id number] Mar, [facility] [address] [id number] [address] [place] [address], [place] [id number] Mar, [facility] [address] [id number] [address] [place] [address], [place] [address] Mar, [facility] [address] [id number] [address] [place] [address], [place] [id number] Mar, [facility] [address] [id number] [address] [place] [address], [place] [id number] Mar, [facility] [address] [id number] [address] [place] [address], [place] [id number] Mar, [facility] [address] [id number] [address] [place] [address], [place] [id number] Feb, [facility] [address] [id number] [address] [place] [address], [place] [id number] Feb, [facility] [address] [id number] [address] [place] [address], [place] [id number] Feb, [facility] [address] [id number] [address] [place] [address], [place] [id number] Feb, [facility] [address] [id number] [address] [place] [address], [place] [id number] Feb, [facility] [address] [id number] [address] [place] [address], [place] [address] Feb, [facility] [address] [id number] [facility] [place] [id number] Feb, [facility] [address] [id number] [address] [place] [address], [place] [id number] Feb, [facility] [address] [id number] [address] [place] [address], [place] [id number] Feb, [facility] [address] [id number] [address] [place] [address], [place] [id number] Feb, [facility] [address] [id number] [address] [place] [address], [place] [id number] Feb, [facility] [address] [id number] [address] [place] [address], [place] [id number] Feb, [facility] [address] [id number] [address] [place] [address], [place] [id number] Feb, [facility] [address] [id number] [address] [place] [address], [place] [id number] Feb, [facility] [address] [id number] [address] [place] [address], [place] [id number] January, [facility] [address] [id number] [address] [place] [address], [place] [id number] January, [facility] [address] [id number] [address] [place] [address], [place] [id number] January, [facility] [address] [id number] [address] [place] [address], [place] [id number] January, [facility] [address] [address] [id number] [address] [place] [address], [place] [address] January, [facility] [address] [id number] [address] [place] [address], [place] [address] January, [facility] [address] [id number] [address] [place] [address], [place] [address] Dec, [facility] [address] [id number] [address] [place] [address], [place] [address] Dec, [facility] [address] [id number] [address] [place] [address], [place] [address] Dec, [facility] [address] [id number] [address] [place] [address], [place] [address] Dec, [facility] [address] [id number] [address] [place] [address], [place] [address] Dec, [facility] [address] [id number] [address] [place] [address], [place] [address] Dec, [facility] [address] [id number] [address] [place] [address], [place] [address] Dec, [facility] [address] [id number] [address] [place] [address], [place] [address] Dec, [facility] [address] [id number] [address] [place] [address], [place] [address] Nov, [facility] [address] [id number] [address] [place] [address], [place] [address] Nov, [facility] [address] [id number] [address] [place] [address], [place] [address] Nov, [facility] [address] [id number] [address] [place] [address], [place] [address] Nov, [facility] [address] [id number] [address] [place] [address], [place] [address] Nov, [facility] [address] [id number] [address] [place] [address], [place] [address] Nov, [facility] [address] [id number] [address] [place] [address], [place] [address] Nov, [facility] [address] [id number] [address] [place] [address], [place] [address] Nov, [facility] [address] [id number] [address] [place] [address], [place] [address] Oct, [facility] [address] [id number] [address] [place] [address], [place] [address] Oct, [facility] [address] [id number] [address] [place] [address], [place] [address] Oct, [facility] [address] [id number] [address] [place] [address], [place] [address] Oct, [facility] [address] [id number] [address] [place] [address], [place] [address] Oct, [facility] [address] [id number] [address] [place] [address], [place] [address] Oct, [facility] [address] [id number] [address] [place] [address], [place] [address] Oct, [facility] [address] [id number] [address] [place] [address], [place] [address] Oct, [facility] [address] [id number] [address] [place] [address], [place] [address] Oct, [facility] [address] [id number] [address] [place] [address], [place] [address] Oct, [facility] [address] [id number] [address] [place] [address], [place] [address] Sep, [facility] [address] [id number] [address] [place] [address], [place] [address] Sep, [facility] [address] [id number] [address] [place] [address], [place] [address] Sep, [facility] [address] [id number] [address] [place] [address], [place] [address] Sep, [facility] [address] [id number] [address] [place] [address], [place] [address] Sep, [facility] [address] [id number] [address] [place] [address], [place] [address] Sep, [facility] [address] [id number] [address] [place] [address], [place] [address] Aug, [facility] [address] [id number] [address] [place] [address], [place] [address] Aug, [facility] [address] [id number] [address] [place] [address], [place] [address] Aug, [facility] [address] [id number] [address] [place] [address], [place] [address] Aug, [facility] [address] [id number] [address] [place] [address], [place] [address] Aug, [facility] [address] [id number] [address] [place] [address], [place] [address] Aug, [facility] [address] [id number] [address] [place] [address], [place] [address] Aug, [facility] [address] [id number] [address] [place] [address], [place] [address] Aug, [facility] [address] [id number] [address] [place] [address], [place] [address] Jul, [facility] [address] [id number] [address] [place] [address], [place] [address] Jul, [facility] [address] [id number] [address] [place] [address], [place] [address] Jul, [facility] [address] [id number] [address] [place] [address], [place] [address] Jul, [facility] [address] [id number] [address] [place] [id number] Jul, [facility] [address] [id number] [address] [place] [address], [place] [address] Jul, [facility] [address] [id number] [address] [place] [address], [place] [address] Jun, [facility] [address] [id number] [address] [place] [address], [place] [address] Jun, [facility] [address] [id number] [address] [place] [address] [place] [address] Jun, [facility] [address] [id number] [address] [place] [address], [place] [address] 24 May, 2013 [facility] [address] [id number] [address] [place] [address], [place] [address] May, [facility] [address] [id number] [address] [place] [address], [place] [address] May, [facility] [address] [id number] [address] [place] [address], [place] [address] Apr, [facility] [address] [id number] [address] [place] [address], [place] [address] Apr, [facility] [address] [id number] [address] [place] [address], [place] [address] Apr, [facility] [address] [id number] [address] [place] [address], [place] [address] Apr, [facility] [address] [id number] [address] [place] [address], [place] [address] Mar, [facility] [address] [id number] [address] [place] [address], [place] [address] Mar, [facility] [address] [id number] [address] [place] [address], [place] [address] Mar, [facility] [address] [id number] [address] [place] [address], [place] [address] Mar, [facility] [address] [id number] [address] [place] [address], [place] [address] Feb, [facility] [address] [id number] [address] [place] [address], [place] [address] Feb, [facility] [address] [id number] [address] [place] [address], [place] [address] Feb, [facility] [address] [id number] [address] [place] [address], [place] [address] Feb, [facility] [address] [id number] [address] [place] [address], [place] [address] January, [facility] [address] [id number] [address] [place] [address], [place] [address] January, [facility] [address] [id number] [address] [place] [address], [place] [address] January, [facility] [address] [id number] [address] [place] [address], [place] [address] Nov, [facility] [address] [id number] [address] [place] [address], [place] [address] Nov, [facility] [address] [id number] [address] [place] [address], [place] [address] Oct, [facility] [address] [id number] [address] [place] [address], [place] [address] Oct, [facility] [address] [id number] [address] [place] [address], [place] [address] Oct, [facility] [address] [id number] [address] [place] [address], [place] [address] Oct, [facility] [address] [id number] [address] [place] [address], [place] [address] Sep, [facility] [address] [id number] [address] [place] [address], [place] [address] Sep, [facility] [address] [id number] [address] [place] [address], [place] [address] Sep, [facility] [address] [id number] [address] [place] [address], [place] [address] Aug, [facility] [address] [id number] [address] [place] [address], [place] [address] Aug, [facility] [address] [id number] [address] [place] [address], [place] [address] Aug, [facility] [address] [id number] [address] [place] [address], [place] [address] Aug, [facility] [address] [id number] [address] [place] [address], [place] [address] Aug, [facility] [address] [id number] [address] [place] [address], [place] [address] Aug, [facility] [address] [id number] [address] [place] [address], [place] [address] Jul, [facility] [address] [id number] [address] [place] [address], [place] [address] Jul, [facility] [address] [id number] [address] [place] [address], [place] [address] Jun, [facility] [address] [id number] [address] [place] [address], [place] [address] Jun, [facility] [address] [id number] [address] [place] [address], [place] [address] Jun, [facility] [address] [id number] [address] [place] [address], [place] [address] Apr, [facility] [address] [id number] [address] [place] [address], [place] [address] Apr, [facility] [address] [id number] [address] [place] [address], [place] [address] Mar, [facility] [address] [id number] [address] [place] [address], [place] [address] Mar, [facility] [address] [id number] [address] [place] [id number] Mar, [facility] [address] [id number] [address] [place] [address], [place] [address] Mar, [facility] [address] [id number] [address] [place] [address], [place] [address] Feb, [facility] [address] [id number] [address] [place] [address], [place] [address] Feb, [facility] [address] [id number] [address] [place] [address], [place] [address] Feb, [facility] [address] [id number] [address] [place] [address], [place] [address] January, [facility] [address] [id number] [address] [place] [address], [place] [address] January, [facility] [address] [id number] [address] [place] [address], [place] [address] January, [facility] [address] [id number] [address] [place] [address], [place] [address] January, [facility] [address] [id number] [address] [place] [address], [place] [address] Dec, [facility] [address] [id number] [address] [place] [address], [place] [address] Dec, [facility] [address] [id number] [address] [place] [address], [place] [address] Nov, [facility] [address] [id number] [address] [place] [address], [place] [address] Nov, [facility] [address] [id number] [address] [place] [address], [place] [address] 16 Oct, 2011 [facility] [address] [id number] [address] [place] [address], [place] [address] Oct, [facility] [address] [id number] [address] [place] [address], [place] [address] Sep, [facility] [address] [id number] [address] [place] [address], [place] [address] Sep, [facility] [address] [id number] [address] [place] [address], [place] [address] Sep, [facility] [address] [id number] [address] [place] [address], [place] [address] Sep, [facility] [address] [id number] [address] [place] [address], [place] [address] Aug, [facility] [address] [id number] [address] [place] [id number] 16 Aug, 2011 [facility] [address] [id number] [address] [place] [id number] Aug, [facility] [address] [id number] [address] [place] [id number] Jul, [facility] [address] [id number] [address] [place] [id number] Aug, [facility] [address] [id number] [address] [place] [id number] Aug, [facility] [address] [id number] [address] [place] [id number] Aug, [facility] [address] [id number] [address] [place] [id number] Aug, [facility] [address] [id number] [address] [place] [id number] Jul, [facility] [address] [id number] [address] [place] [id number] Jul, [facility] [address] [id number] [address] [place] [id number] Jul, [facility] [address] [id number] [address] [place] [id number] Jun, [facility] [address] [id number] [address] [place] [id number] Jun, [facility] [address] [id number] [address] [place] [id number] Jun, [facility] [address] [id number] [address] [place] [id number] Apr, [facility] [address] [id number] [address] [place] [id number] Mar, IMMUNIZATIONS No Known Immunizations SOCIAL HISTORY [...]
--- OUTSIDE RECORDS SUMMARY | 2020-03-18 15:02 | XMS REPORT ---
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 Name Role Phone NUHA Benavides Unavailable PROBLEMS Type Condition ICD9-CM Code BII90-QU Code Onset Dates Condition S tatus SNOMED Code Problem Hypertension, benign I10 Active 49755734 Problem Other chronic pain G89.29 Active 8 0521639 Problem Lumbago with sciatica, unspecified side M54.40 Active 522601672 Problem Controlled type 2 diabetes m ellitus without complication, without long- term current use of insulin E11.9 Active 545683737 Problem Lumbago with sciatica, right side M54.41 Active 265858325 Problem Adjustment disorder with disturbance of emotion F4 3.29 Active 13799929 Problem MELE (obstructive sleep apnea) G47.33 Active 09824733 Problem Non morbid obesity E66.9 Active 4 82961844 Problem Hammer toe of left foot M20.42 Active 181944668 Problem Mood disorder F39 Active 980997 05 Problem Deformity of left foot M21.962 Active 048435398 Problem Lumbago with sciatica, left side M54.42 Active 201207268 Problem Erectile dysfunction due to diseases classified elsewhere N52.1 Active 060026474 Problem Obstructive sleep apnea syndrome G47.33 Active 66727102 Problem Type 2 diabetes mellitus wit h diabetic neuropathy, without long-term current use of insulin E11.40 Active 98647 006 Problem Essential hypertension I10 Active 11685757 ALLERGIES No Information ENCOUNTERS Encounter Location Date Diagnosis [facility] [address] [facility] [id number] [address] [place] [id number] Dec, Acute diffuse otitis externa of left ear H60.312 [facility] [address] [facility] [id number] [address] [place] [id number] 18 Nov, 2019 Viral URI J06.9 and Flu-like symptoms R68.89 [place] [address] [place] [id number] [address] [place] [id number] Nov, Type 2 diabetes mellitus wit h diabetic neuropathy, without long- term current use of insulin E11.40 ; Family history of prostate cancer Z80.42 and Prostate cancer screening Z12.5 [place] [address] [place] [id number] [address] [place] [id number] Nov, [place] [address] [place] [id number] [address] [place] [id number] Sep, [place] [address] [place] [id number] [address] [place] [id number] Aug, [place] [address] [place] [id number] [place] [id number] Jul, Lumbago with sciatica, unspe cified side M54.40 [place] [address] [place] [id number] [address] [place] [id number] Jun, Lumbago with sciatica, unspe cified side M54.40 [place] [address] [address] Jun, URI, acute J06.9 [place] [address] [address] May, Lumbago with sciatica, unspe cified side M54.40 [place] [address] [place] [id number] [address] [place] [id number] May, [place] [address] [place] [id number] [address] [place] [id number] 12 May, 2019 Type 2 diabetes mellitus wit h diabetic neuropathy, without long- term current use of insulin E11.40 and Hammer toe of left foot M20.42 [place] [address] [place] [id number] [address] [place] [id number] May, [place] [address] [place] [id number] [place] [id number] May, [facility] [address] [facility] [id number] [address] [place] [id number] May, [facility] [address] [facility] [id number] [address] [place] [id number] Apr, Lumbago with sciatica, unspe cified side M54.40 [facility] [address] [facility] [id number] [address] [place] [id number] Apr, [facility] [address] [facility] [id number] [address] [place] [id number] Apr, [id number] [place] [address] Apr, Hammer toe of left foot M20. 42 ; Chest pain R07.9 ; Preoperative examination Z01.818 and Morbid obesity E66.01 [facility] [address] [place] [id number] [address] [place] [id number] Apr, Morbid obesity E66.01 ; Bron chitis J40 and High risk medications (not anticoagulants) long-term use Z79.899 [facility] [address] [place] [id number] [address] [place] [id number] Apr, Lumbago with sciatica, unspe cified side M54.40 [facility] [address] [place] [id number] [address] [place] [id number] Apr, [facility] [address] [facility] [id number] [address] [place] [id number] Mar, Lumbar neuritis M54.16 and M orbid obesity E66.01 [facility] [address] [facility] [id number] [address] [place] [id number] Mar, [facility] [address] [facility] [id number] [address] [place] [id number] Mar, [facility] [address] [place] [id number] [address] [place] [id number] Mar, Lumbago with sciatica, unspe cified side M54.40 [facility] [address] [id number] [address] [place] [id number] Mar, Morbid obesity E66.01 ; Gabe lara R05 ; 2+ pitting edema R60.9 and Controlled type 2 diabetes mellitus without complication, without long-term current use of insulin E11.9 [facility] [address] [id number] [address] [place] [id number] Feb, [facility] [address] [id number] [address] [place] [id number] Feb, Lumbago with sciatica, unspe cified side M54.40 [facility] [address] [id number] [address] [place] [id number] Feb, [facility] [address] [facility] [id number] [address] [place] [id number] Feb, Controlled type 2 diabetes m ellitus without complication, without long-term current use of insulin E11.9 and Morbid obesity E66.01 [facility] [address] [id number] [address] [place] [id number] January, Deformity of left foot M21.9 62 [facility] [address] [id number] [address] [place] [address] January, [facility] [address] [id number] [address] [place] [id number] January, Lumbago with sciatica, unspe cified side M54.40 [facility] [address] [id number] [address] [place] [id number] January, [facility] [address] [facility] [id number] [address] [place] [id number] January, Lumbago with sciatica, unspe cified side M54.40 [facility] [address] [id number] [address] [place] [id number] January, [facility] [address] [facility] [id number] [address] [place] [id number] January, Acute right-sided thoracic b ack pain M54.6 [facility] [address] [facility] [id number] [address] [place] [id number] January, Acute right-sided thoracic b ack pain M54.6 [facility] [address] [facility] [id number] [address] [place] [id number] January, Chest pain, unspecified type R07.9 ; Morbid obesity E66.01 and Scabies B86 [place] [address] [facility] [id number] [address] [place] [id number] Dec, Lumbago with sciatica, unspe cified side M54.40 [facility] [address] [place] [id number] [address] [place] [id number] Dec, Toenail fungus B35.1 [facility] [address] [facility] [id number] [address] [place] [id number] Dec, Toenail fungus B35.1 [facility] [address] [facility] [id number] [address] [place] [id number] Dec, Acute right-sided thoracic b ack pain M54.6 [facility] [address] [facility] [id number] [address] [place] [id number] Dec, Lumbago with sciatica, unspe cified side M54.40 [facility] [address] [facility] [id number] [address] [place] [id number] Nov, Hammer toe of left foot M20. 42 ; Deformity of left foot M21.962 and Type 2 diabetes mellitus with diabetic neuropathy, without long-term current use of insulin E11.40 [facility] [address] [facility] [id number] [address] [place] [id number] Nov, Acute right-sided thoracic b ack pain M54.6 ; Morbid obesity E66.01 and Rt flank pain R10.9 [facility] [address] [place] [id number] [address] [place] [id number] Nov, Lumbago with sciatica, unspe cified side M54.40 [facility] [address] [place] [id number] [address] [place] [id number] Oct, Lumbago with sciatica, unspe cified side M54.40 [place] [address] [place] [id number] [place] [id number] Sep, Lumbago with sciatica, unspe cified side M54.40 [place] [address] [place] [id number] [place] [id number] Sep, [place] [address] [place] [id number] [place] [address] Sep, BMI 40.0-44.9, adult Z68.41 ; Lumbago with sciatica, left side M54.42 ; Lumbago with sciatica, right side M54.41 and Other chronic pain G89.29 [place] [address] [address] Aug, Lumbago with sciatica, unspe cified side M54.40 [place] [address] [place] [id number] [place] [address] Aug, Type 2 diabetes mellitus wit h diabetic neuropathy, without long- term current use of insulin E11.40 ; Hammer toe of left foot M20.42 ; Hypertension, benign I10 and Frequent headaches R51 [place] [address] [place] [id number] [address] [place] [id number] Jul, Lumbago with sciatica, unspe cified side M54.40 [place] [address] [place] [id number] [address] [place] [id number] Jul, [place] [address] [place] [id number] [place] [id number] Jul, Essential hypertension I10 a nd Controlled type 2 diabetes mellitus without complication, without long-term current use of insulin E11.9 [place] [id number] [place] [id number] [address] [place] [id number] Jul, Essential hypertension I10 ; Controlled type 2 diabetes mellitus without complication, without long-term current use of insulin E11.9 and BMI 40.0-44.9, adult Z68.41 [place] [address] [facility] [id number] [place] [address] Jul, Dysfunction of left eustachi an tube H69.82 [place] [address] [place] [id number] [address] [place] [id number] Jul, Lumbago with sciatica, unspe cified side M54.40 [facility] [address] [place] [id number] [place] [id number] Jun, Dental examination Z01.20 [place] [address] [place] [id number] [address] [place] [address] Jun, Lumbago with sciatica, unspe cified side M54.40 and Encounter for immunization Z23 [place] [address] [address] Jun, Dysfunction of left eustachi an tube H69.[address] [place] [id number] [place] [id number] Jun, Dental examination Z01.20 [facility] [address] [place] [id number] [address] [place] [address] Jun, Other chronic pain G89.29 [facility] [id number] [place] [id number] Jun, Dental examination Z01.20 [facility] [address] [facility] [id number] [address] [place] [id number] Jun, [place] [address] [place] [id number] [address] [place] [address] Jun, Bronchitis J40 ; Dysfunction of left eustachian tube H69.82 and BMI 45.0-49.9, adult Z68.42 [facility] [address] [address] Jun, Lumbago with sciatica, unspe cified side M54.40 [facility] [address] [place] [address] May, Type 2 diabetes mellitus wit h diabetic neuropathy, without long- term current use of insulin E11.40 and Hypertension, benign I10 [facility] [address] [address] May, Lumbago with sciatica, unspe cified side M54.40 [facility] [address] [address] Apr, [facility] [address] [address] Apr, Controlled type 2 diabetes m ellitus without complication, without long-term current use of insulin E11.9 ; Insect bite (nonvenomous), right ankle, initial encounter S90.561A ; Local infection of the skin and subcutaneous tissue, unspecified L08.9 ; Acute swimmer''s ear of left side H60.332 and BMI 45.0-49.9, adult Z68.42 [place] [address] [place] [id number] [address] [place] [address] Apr, Lumbago with sciatica, unspe cified side M54.40 [facility] [address] [place] [address] Mar, [place] [address] [place] [address] Mar, Lumbago with sciatica, unspe cified side M54.40 [place] [address] [place] [id number] [address] [place] [id number] Feb, Lumbago with sciatica, unspe cified side M54.40 [place] [address] [place] [id number] [address] [place] [id number] Feb, BMI 45.0-49.9, adult Z68.42 and Obstructive sleep apnea syndrome G47.33 [place] [address] [place] [id number] [place] [address] January, Lumbar neuritis M54.16 [place] [address] [place] [id number] [place] [address] January, Lumbago with sciatica, unspe cified side M54.40 [place] [address] [place] [id number] [place] [address] Dec, Controlled type 2 diabetes m ellitus without complication, without long-term current use of insulin E11.9 ; Erectile dysfunction due to diseases classified elsewhere N52.1 and Mood disorder F39 [place] [address] [address] Dec, Lumbago with sciatica, unspe cified side M54.40 [place] [address] [place] [id number] [address] [place] [id number] Dec, Obstructive sleep apnea synd luis G47.33 [place] [address] [place] [id number] [address] [place] [id number] Nov, Lumbago with sciatica, unspe cified side M54.40 ; Hypertension, benign I10 and Mood disorder F39 [place] [address] [place] [id number] [address] [place] [address] Nov, Other chronic pain G89.29 [place] [address] [place] [id number] [address] [place] [id number] Nov, Lumbago with sciatica, unspe cified side M54.40 [facility] [address] [id number] [address] [place] [address] [id number] Nov, Dental examination Z01.20 [facility] [address] [id number] [address] [place] [id number] Oct, [facility] [address] [id number] [address] [place] [id number] Oct, Lumbago with sciatica, unspe cified side M54.40 [facility] [address] [id number] [address] [place] [id number] Oct, Lumbago with sciatica, unspe cified side M54.40 [facility] [address] [id number] [address] [place] [id number] Oct, [facility] [address] [id number] [address] [place] [id number] Oct, [facility] [address] [facility] [id number] [address] [place] [id number] Oct, Dental examination Z01.20 [facility] [address] [facility] [id number] [address] [place] [id number] Oct, [facility] [address] [facility] [id number] [address] [place] [id number] Oct, Pain in right knee M25.561 [facility] [address] [facility] [id number] [address] [place] [id number] Sep, [facility] [address] [facility] [id number] [address] [place] [address] Sep, Other chronic pain G89.29 [facility] [address] [id number] [address] [place] [id number] Sep, Lumbago with sciatica, unspe cified side M54.40 [facility] [address] [facility] [id number] [address] [place] [id number] Sep, [facility] [address] [facility] [id number] [address] [place] [id number] Sep, Viral URI J06.9 and BMI 45.0 -49.9, adult Z68.42 [facility] [address] [facility] [id number] [address] [place] [address] Aug, Foreign body hand S60.559A a nd BMI 45.0-49.9, adult Z68.42 [facility] [address] [place] [id number] [address] [place] [address] Aug, [facility] [address] [place] [id number] [address] [place] [id number] Aug, Lumbago with sciatica, unspe cified side M54.40 [place] [address] [place] [id number] [place] [address] Aug, Vertigo R42 ; Dysfunction of both eustachian tubes H69.83 ; Low back pain M54.5 and Other chronic pain G89.29 [facility] [address] [place] [id number] [address] [place] [id number] Aug, Dizziness R42 and Acute bila teral otitis media H66.93 [place] [address] [place] [id number] [address] [place] [id number] Aug, Lumbago with sciatica, unspe cified side M54.40 [facility] [address] [place] [id number] [address] [place] [address] [id number] Jul, Dental examination Z01.20 [facility] [address] [facility] [id number] [address] [place] [id number] Jul, [place] [address] [place] [id number] [address] [place] [id number] Jul, [place] [address] [place] [id number] [address] [place] [id number] Jul, Dysfunction of both eustachi an tubes H69.83 [facility] [address] [place] [id number] [address] [place] [address] Jul, Controlled type 2 diabetes m taraitus without complication, without long-term current use of insulin E11.9 [facility] [address] [id number] [address] [place] [id number] Jul, Controlled type 2 diabetes m ellitus without complication, without long-term current use of insulin E11.9 [facility] [address] [id number] [address] [place] [id number] Jul, Dizziness R42 and BMI 40.0-4 4.9, adult Z68.41 [facility] [address] [id number] [address] [place] [id number] Jul, Controlled type 2 diabetes m ellitus without complication, without long-term current use of insulin E11.9 [facility] [address] [id number] [address] [place] [id number] Jul, Lumbago with sciatica, unspe cified side M54.40 [facility] [id number] [place] [address] [id number] Jul, Dental examination Z01.20 [facility] [address] [id number] [address] [place] [id number] Jun, [facility] [address] [id number] [place] [address] [id number] Jun, Dental examination Z01.20 [facility] [address] [id number] [address] [place] [address] Jun, Controlled type 2 diabetes m ellitus without complication, without long-term current use of insulin E11.9 [facility] [address] [id number] [address] [place] [id number] Jun, Lumbago with sciatica, unspe cified side M54.40 [facility] [address] [id number] [address] [place] [address] [id number] May, Dental examination Z01.20 [facility] [address] [id number] [address] [place] [id number] May, Controlled type 2 diabetes m ellitus without complication, without long-term current use of insulin E11.9 [facility] [address] [id number] [address] [place] [address] [id number] 19 May, 2017 Dental examination Z01.20 [facility] [address] [facility] [id number] [address] [place] [id number] 18 May, 2017 Bronchitis J40 ; Dry mouth R 68.2 ; Non morbid obesity E66.9 and Controlled type 2 diabetes mellitus without complication, without long-term current use of insulin E11.9 [facility] [address] [id number] [address] [place] [id number] 16 May, 2017 Encounter for immunization Z 23 [facility] [address] [facility] [id number] [place] [id number] 07 May, 2017 Lumbago with sciatica, unspe cified side M54.40 [facility] [address] [facility] [id number] [address] [place] [id number] 05 May, 2017 [facility] [address] [facility] [id number] [place] [address] [id number] Apr, Dental examination Z01.20 [facility] [address] [facility] [id number] [address] [place] [id number] Apr, Lumbago with sciatica, unspe cified side M54.40 [facility] [address] [id number] [address] [place] [id number] Mar, Lumbago with sciatica, left side M54.42 [facility] [address] [id number] [address] [place] [id number] Mar, [facility] [address] [id number] [address] [place] [id number] Mar, Lumbar neuritis M54.16 [facility] [address] [facility] [id number] [address] [place] [id number] Mar, [facility] [address] [id number] [place] [id number] Mar, Dental examination Z01.20 [place] [address] [id number] [address] [place] [id number] Mar, MELE (obstructive sleep apnea ) G47.33 ; Neuropathy involving both lower extremities G57.93 and Frequent headaches R51 [place] [address] [id number] [address] [place] [id number] Mar, Lumbago with sciatica, unspe cified side M54.40 [place] [address] [id number] [address] [place] [id number] Feb, Lumbago with sciatica, unspe cified side M54.40 and Controlled type 2 diabetes mellitus without complication, without long-term current use of insulin E11.9 [place] [address] [id number] [address] [place] [id number] January, Hypertension, benign I10 and Bilateral low back pain with sciatica, sciatica laterality unspecified M54.40 [place] [address] [id number] [address] [place] [id number] January, Hypertension, benign I10 ; L umbago with sciatica, unspecified side M54.40 ; Other chronic pain G89.29 and Controlled type 2 diabetes mellitus without complication, without long-term current use of insulin E11.9 [place] [address] [id number] [address] [place] [id number] January, Lumbar neuritis M54.16 [place] [address] [id number] [address] [place] [id number] January, [place] [address] [id number] [address] [place] [id number] Dec, Lumbago with sciatica, right side M54.41 and Lumbar neuritis M54.16 [place] [address] [id number] [address] [place] [id number] Dec, Lumbar neuritis M54.16 [place] [address] [id number] [address] [place] [id number] Dec, Lumbar neuritis M54.16 [place] [address] [facility] [id number] [address] [place] [id number] Nov, Lumbar neuritis M54.16 ; Lum bago with sciatica, right side M54.41 ; Controlled type 2 diabetes mellitus without complication, without long-term current use of insulin E11.9 and Rash and nonspecific skin eruption R21 [place] [address] [place] [id number] [address] [place] [id number] Nov, Lumbar neuritis M54.16 and P oison miroslava L23.7 [place] [address] [place] [id number] [place] [address] Oct, Lumbar neuritis M54.16 ; Cou ghing R05 and Mood disorder F39 [place] [address] [place] [id number] [address] [place] [id number] Sep, Lumbago with sciatica, right side M54.41 [place] [address] [place] [id number] [address] [place] [id number] Sep, Adjustment disorder with dis turbance of emotion F43.29 and Pain management R52 [place] [address] [place] [id number] [address] [place] [id number] Sep, [place] [address] [place] [id number] [address] [place] [id number] Sep, [place] [address] [place] [id number] [address] [place] [id number] Sep, Controlled type 2 diabetes evens reyna without complication, without long-term current use of insulin E11.9 and Lumbago with sciatica, unspecified side M54.40 [place] [address] [place] [id number] [address] [place] [id number] Aug, Controlled type 2 diabetes evens reyna without complication, without long-term current use of insulin E11.9 ; Pain in right knee M25.561 ; Pain in left knee M25.562 ; Other chronic pain G89.29 ; Lumbago with sciatica, right side M54.41 ; Neck pain M54.2 and Encounter for immunization Z23 [facility] [address] [id number] [address] [place] [id number] Jul, [facility] [address] [id number] [address] [place] [id number] Jul, Controlled type 2 diabetes m maribell without complication, without long-term current use of insulin E11.9 [facility] [address] [id number] [address] [place] [id number] 17 Jul, 2016 [facility] [address] [id number] [address] [place] [id number] Jul, [facility] [address] [id number] [address] [place] [id number] Jul, Lumbago with sciatica, left side M54.42 ; Lumbago with sciatica, right side M54.41 and Other chronic pain G89.29 [facility] [address] [id number] [address] [place] [id number] Jul, [facility] [address] [id number] [address] [place] [id number] Jul, [facility] [address] [id number] [address] [place] [id number] Jun, [facility] [address] [id number] [address] [place] [id number] Jun, Lumbago with sciatica, right side M54.41 and Other chronic pain G89.29 [facility] [address] [id number] [address] [place] [id number] Jun, Cervicalgia M54.2 ; Lumbago with sciatica, unspecified side M54.40 and Other chronic pain G89.29 [facility] [address] [id number] [address] [place] [id number] 15 May, 2016 Pain in right knee M25.561 ; Pain in left knee M25.562 and Other chronic pain G89.29 [facility] [address] [id number] [address] [place] [id number] May, [facility] [address] [id number] [address] [place] [id number] Apr, Other chronic pain G89.29 an d Pain in right knee M25.561 [facility] [address] [id number] [address] [place] [id number] Apr, Pain in right knee M25.561 [facility] [address] [id number] [address] [place] [id number] Mar, [place] [id number] [id number] [address] [place] [id number] Mar, Mood disorder F39 and Contro lled type 2 diabetes mellitus without complication, without long-term current use of insulin E11.9 [facility] [address] [id number] [address] [place] [id number] Mar, Pain in right knee M25.561 ; Pain in left knee M25.562 ; Other chronic pain G89.29 ; Obstructive sleep apnea syndrome G47.33 ; Mood disorder F39 and Controlled type 2 diabetes mellitus without complication, without long- term current use of insulin E11.9 [facility] [address] [id number] [address] [place] [id number] Mar, [facility] [address] [id number] [address] [place] [id number] Feb, Dental examination Z01.20 [facility] [address] [id number] [address] [place] [id number] Feb, [facility] [address] [id number] [address] [place] [id number] Feb, Osteoarthritis of right knee , unspecified osteoarthritis type M17.9 [facility] [address] [id number] [address] [place] [id number] January, [facility] [address] [id number] [address] [place] [address] [id number] January, Dental examination Z01.20 [facility] [address] [id number] [address] [place] [id number] January, [facility] [address] [id number] [address] [place] [address] [id number] January, Dental examination Z01.20 an d Caries K02.9 [facility] [address] [id number] [address] [place] [id number] Dec, Encounter for other preproce dural examination Z01.818 [facility] [address] [id number] [address] [place] [id number] Dec, [facility] [address] [id number] [address] [place] [id number] Dec, Knee pain M25.569 [facility] [address] [id number] [address] [place] [id number] Dec, Pain in right knee M25.561 [facility] [address] [id number] [address] [place] [id number] Dec, [facility] [address] [id number] [address] [place] [id number] Dec, [facility] [address] [id number] [address] [place] [id number] Dec, Encounter for immunization Z 23 [facility] [address] [id number] [address] [place] [id number] Dec, [facility] [address] [id number] [address] [place] [id number] Dec, [facility] [address] [id number] [address] [place] [id number] Nov, [facility] [address] [id number] [address] [place] [id number] 02 Mar, 2016 Hypertension, benign I10 ; C ervicalgia M54.2 ; Pain in right knee M25.561 and Pain in left knee M25.562 [place] [id number] [facility] [id number] [address] [place] [id number] Oct, [place] [address] [facility] [id number] [address] [place] [id number] Oct, [place] [address] [place] [id number] [place] [address] Oct, Osteoarthritis of both knees M17.0 [place] [address] [facility] [id number] [address] [place] [id number] Oct, [place] [address] [place] [id number] [place] [address] Oct, Low back pain M54.5 [place] [address] [place] [id number] [place] [address] Oct, Low back pain M54.5 ; Sciati ca, unspecified side M54.30 ; Pain in right knee M25.561 ; Pain in left knee M25.562 ; Pain in right shoulder M25.511 and Pain in left shoulder M25.512 [place] [address] [place] [id number] [address] [place] [id number] Oct, [place] [address] [place] [id number] [address] [place] [id number] Sep, Pain in right hip M25.551 [place] [address] [place] [id number] [address] [place] [id number] Sep, Acute upper respiratory infe ction, unspecified J06.9 [place] [address] [place] [id number] [address] [place] [id number] Aug, Acute upper respiratory infe ction, unspecified J06.9 and Other viral agents as the cause of diseases classified elsewhere B97.89 [place] [address] [place] [id number] [address] [place] [id number] Jul, Arthritis M19.90 [facility] [address] [id number] [address] [place] [id number] Jun, Arthritis M19.90 ; Pain in r ight hip M25.551 ; Pain in left hip M25.552 ; Bilateral low back pain with sciatica, sciatica laterality unspecified M54.40 ; Neck pain M54.2 ; Upper back pain M54.9 and Knee pain, unspecified laterality M25.569 [facility] [address] [id number] [address] [place] [id number] May, Osteoarthritis of both knees 715.96 [place] [address] [id number] [address] [place] [id number] May, Rash 782.1 [place] [address] [facility] [id number] [address] [place] [id number] Apr, Lumbar strain 847.2 [place] [address] [facility] [id number] [address] [place] [id number] Apr, Rash 782.1 [facility] [address] [facility] [id number] [address] [place] [id number] Mar, Rash 782.1 [facility] [address] [facility] [id number] [address] [place] [id number] Feb, Rash 782.1 ; Hemorrhoids 455 .6 and Constipation 564.00 [place] [address] [id number] [address] [place] [id number] Feb, Osteoarthritis of both knees 715.96 [facility] [address] [id number] [address] [place] [id number] January, [facility] [address] [facility] [id number] [address] [place] [id number] Dec, [place] [address] [facility] [id number] [address] [place] [id number] Dec, [facility] [address] [id number] [address] [place] [address], [place] [address] 13 Dec, 2014 [facility] [address] [id number] [address] [place] [address], [place] [address] 18 Nov, 2014 [facility] [address] [id number] [address] [place] [address], [place] [address] 18 Nov, 2014 [facility] [address] [id number] [address] [place] [address], [place] [address] Nov, [facility] [address] [id number] [address] [place] [address], [place] [address] Nov, [facility] [address] [id number] [address] [place] [address], [place] [address] Nov, [facility] [address] [id number] [address] [place] [address], [place] [address] Nov, [facility] [address] [id number] [address] [place] [address], [place] [address] Oct, [facility] [address] [id number] [address] [place] [address], [place] [address] Oct, [facility] [address] [id number] [address] [place] [address], [place] [address] Oct, [facility] [address] [id number] [address] [place] [address], [place] [address] Oct, [facility] [address] [id number] [address] [place] [id number] Oct, [facility] [address] [id number] [address] [place] [address], [place] [address] Oct, [facility] [address] [id number] [address] [place] [address], [place] [address] Oct, [facility] [address] [id number] [address] [place] [id number] Oct, [facility] [address] [id number] [address] [place] [id number] 12 Oct, 2014 [facility] [address] [id number] [address] [place] [address], [place] [address] Oct, [facility] [address] [id number] [address] [place] [address], [place] [address] Oct, [facility] [address] [id number] [address] [place] [address], [place] [address] Sep, [facility] [address] [id number] [address] [place] [address], [place] [address] Sep, [facility] [address] [id number] [address] [place] [address], [place] [address] Sep, [facility] [address] [id number] [address] [place] [address], [place] [address] Sep, [facility] [address] [id number] [address] [place] [address], [place] [address] Sep, [facility] [address] [id number] [address] [place] [address], [place] [address] Sep, [facility] [address] [id number] [address] [place] [address], [place] [address] Aug, [facility] [address] [id number] [address] [place] [address], [place] [address] Aug, [facility] [address] [id number] [address] [place] [address], [place] [address] Aug, [facility] [address] [id number] [address] [place] [address], [place] [address] Aug, [facility] [address] [id number] [address] [place] [address], [place] [address] Aug, [facility] [address] [id number] [address] [place] [address], [place] [address] Aug, [facility] [address] [id number] [address] [place] [address], [place] [address] Aug, [facility] [address] [id number] [address] [place] [address], [place] [address] Aug, [facility] [address] [id number] [address] [place] [address], [place] [address] Aug, [facility] [address] [id number] [address] [place] [address], [place] [address] Aug, [facility] [address] [id number] [address] [place] [address], [place] [address] Jul, [facility] [address] [id number] [address] [place] [address], [place] [address] Jul, [facility] [address] [id number] [address] [place] [address], [place] [address] Jul, [facility] [address] [id number] [address] [place] [address], [place] [address] Jul, [facility] [address] [id number] [address] [place] [address], [place] [address] Jun, [facility] [address] [id number] [address] [place] [address], [place] [address] Jun, [facility] [address] [id number] [address] [place] [address], [place] [address] Jun, [facility] [address] [id number] [address] [place] [address], [place] [address] Jun, [facility] [address] [id number] [address] [place] [address], [place] [address] Jun, [facility] [address] [id number] [address] [place] [address], [place] [address] Jun, [facility] [address] [id number] [address] [place] [address], [place] [address] Jun, [facility] [address] [id number] [address] [place] [address], [place] [address] Jun, [facility] [address] [id number] [address] [place] [address], [place] [address] 24 May, 2013 [facility] [address] [id number] [address] [place] [address], [place] [address] 24 May, 2014 [facility] [address] [id number] [address] [place] [address], [place] [address] May, [facility] [address] [id number] [address] [place] [address], [place] [address] 19 May, 2014 [facility] [address] [id number] [address] [place] [address], [place] [address] 15 May, 2014 [facility] [address] [id number] [address] [place] [address], [place] [address] 15 May, 2014 [facility] [address] [id number] [address] [place] [address], [place] [address] 15 May, 2014 [facility] [address] [id number] [address] [place] [address], [place] [address] 15 May, 2014 [facility] [address] [id number] [address] [place] [address], [place] [address] Apr, [facility] [address] [id number] [address] [place] [address], [place] [address] Apr, [facility] [address] [id number] [address] [place] [address], [place] [address] Apr, [facility] [address] [id number] [address] [place] [address], [place] [address] Apr, [facility] [address] [id number] [address] [place] [address], [place] [address] Apr, [facility] [address] [id number] [address] [place] [address], [place] [address] Apr, [facility] [address] [id number] [address] [place] [address], [place] [address] Apr, [facility] [address] [id number] [address] [place] [address], [place] [address] Apr, [facility] [address] [id number] [facility] [place] [address] Apr, [facility] [address] [id number] [address] [place] [address], [place] [address] Apr, [facility] [address] [id number] [address] [place] [address], [place] [address] Apr, [facility] [address] [id number] [address] [place] [address], [place] [address] Apr, [facility] [address] [id number] [address] [place] [address], [place] [address] Mar, [facility] [address] [id number] [address] [place] [address], [place] [address] Mar, [facility] [address] [id number] [address] [place] [address], [place] [address] Mar, [facility] [address] [id number] [address] [place] [address], [place] [address] Mar, [facility] [address] [id number] [address] [place] [address], [place] [address] Mar, [facility] [address] [id number] [address] [place] [address], [place] [address] Mar, [facility] [address] [id number] [address] [place] [address], [place] [address] Feb, [facility] [address] [id number] [address] [place] [address], [place] [address] Feb, [facility] [address] [id number] [address] [place] [address], [place] [address] Feb, [facility] [address] [id number] [address] [place] [address], [place] [address] Feb, [facility] [address] [id number] [address] [place] [address], [place] [address] Feb, [facility] [address] [id number] [address] [place] [address], [place] [address] Feb, [facility] [address] [id number] [address] [place] [address], [place] [address] Feb, [facility] [address] [id number] [address] [place] [address], [place] [address] Feb, [facility] [address] [id number] [address] [place] [address], [place] [address] Feb, [facility] [address] [id number] [address] [place] [address], [place] [address] Feb, [facility] [address] [id number] [address] [place] [address], [place] [address] Feb, [facility] [address] [id number] [address] [place] [address], [place] [address] Feb, [facility] [address] [id number] [address] [place] [address], [place] [address] Feb, [facility] [address] [id number] [address] [place] [address], [place] [address] Feb, [facility] [address] [id number] [address] [place] [address], [place] [address] January, [facility] [address] [id number] [address] [place] [address], [place] [address] January, [facility] [address] [id number] [address] [place] [address], [place] [address] January, [facility] [address] [id number] [address] [place] [address], [place] [address] January, [facility] [address] [id number] [address] [place] [address], [place] [address] January, [facility] [address] [id number] [address] [place] [address], [place] [address] January, [facility] [address] [id number] [address] [place] [address], [place] [address] Dec, [facility] [address] [id number] [address] [place] [address], [place] [address] Dec, [facility] [address] [id number] [facility] [place] [address] Dec, [facility] [address] [id number] [address] [place] [address], [place] [address] Dec, [facility] [address] [id number] [address] [place] [address], [place] [address] Dec, [facility] [address] [id number] [address] [place] [address], [place] [address] Dec, [facility] [address] [id number] [address] [place] [address], [place] [address] Dec, [facility] [address] [id number] [address] [place] [address], [place] [address] Dec, [facility] [address] [id number] [address] [place] [address], [place] [address] Nov, [facility] [address] [id number] [address] [place] [address], [place] [address] Nov, [facility] [address] [id number] [address] [place] [address], [place] [address] Nov, [facility] [address] [id number] [address] [place] [address], [place] [address] Nov, [facility] [address] [id number] [address] [place] [address], [place] [address] Nov, [facility] [address] [id number] [address] [place] [address], [place] [address] Nov, [facility] [address] [id number] [address] [place] [address], [place] [address] Nov, [facility] [address] [id number] [address] [place] [address], [place] [address] Nov, [facility] [address] [id number] [address] [place] [address], [place] [address] Oct, [facility] [address] [id number] [address] [place] [address], [place] [address] Oct, [facility] [address] [id number] [address] [place] [address], [place] [address] Oct, [facility] [address] [id number] [address] [place] [address], [place] [address] Oct, [facility] [address] [id number] [address] [place] [address], [place] [address] Oct, [facility] [address] [id number] [address] [place] [address], [place] [address] Oct, [facility] [address] [id number] [address] [place] [address], [place] [address] Oct, [facility] [address] [id number] [address] [place] [address], [place] [address] Oct, [facility] [address] [id number] [address] [place] [address], [place] [address] Oct, [facility] [address] [id number] [address] [place] [address], [place] [address] Oct, [facility] [address] [id number] [address] [place] [address], [place] [address] Sep[place] [facility] [facility] [address] [id number] [address] [place] [address], [place] [address] Sep, [facility] [address] [id number] [address] [place] [address], [place] [address] Sep, [facility] [address] [id number] [address] [place] [address], [place] [address] Sep, [facility] [address] [id number] [address] [place] [address], [place] [address] Sep, [facility] [address] [id number] [address] [place] [address], [place] [address] Sep, [facility] [address] [id number] [address] [place] [address], [place] [address] Aug, [facility] [address] [id number] [address] [place] [address], [place] [address] Aug, [facility] [address] [id number] [address] [place] [address], [place] [address] Aug, [facility] [address] [id number] [address] [place] [address], [place] [address] Aug, [facility] [address] [id number] [address] [place] [address], [place] [address] Aug, [facility] [address] [id number] [address] [place] [address], [place] [address] Aug, [facility] [address] [id number] [address] [place] [address], [place] [address] Aug, [facility] [address] [id number] [address] [place] [address], [place] [address] Aug, [facility] [address] [id number] [address] [place] [address], [place] [address] Jul, [facility] [address] [id number] [address] [place] [address], [place] [address] Jul, [facility] [address] [id number] [address] [place] [address], [place] [address] Jul, [facility] [address] [id number] [address] [place] [address], [place] [address] Jul, [facility] [address] [id number] [address] [place] [address] Jul, [facility] [address] [id number] [address] [place] [address], [place] [address] Jul, [facility] [address] [id number] [address] [place] [address], [place] [address] Jun, [facility] [address] [id number] [address] [place] [address] Jun, [facility] [address] [id number] [address] [place] [address], [place] [address] Jun, [facility] [address] [id number] [address] [place] [address], [place] [address] 24 May, 2013 [facility] [address] [id number] [address] [place] [address], [place] [address] May, [facility] [address] [id number] [address] [place] [address], [place] [address] May, [facility] [address] [id number] [address] [place] [address], [place] [address] Apr, [facility] [address] [id number] [address] [place] [address], [place] [address] Apr, [facility] [address] [id number] [address] [place] [address], [place] [address] Apr, [facility] [address] [id number] [address] [place] [address], [place] [address] Apr, [facility] [address] [id number] [address] [place] [address], [place] [address] Mar, [facility] [address] [id number] [address] [place] [address], [place] [address] Mar, [facility] [address] [id number] [address] [place] [address], [place] [address] Mar, [facility] [address] [id number] [address] [place] [address], [place] [address] Mar, [facility] [address] [id number] [address] [place] [address], [place] [address] Feb, [facility] [address] [id number] [address] [place] [address], [place] [address] Feb, [facility] [address] [id number] [address] [place] [address], [place] [address] Feb, [facility] [address] [id number] [address] [place] [address], [place] [address] Feb, [facility] [address] [id number] [address] [place] [address], [place] [address] January, [facility] [address] [id number] [address] [place] [address], [place] [address] January, [facility] [address] [id number] [address] [place] [address], [place] [address] January, [facility] [address] [id number] [address] [place] [address], [place] [address] Nov, [facility] [address] [id number] [address] [place] [address], [place] [address] Nov, [facility] [address] [id number] [address] [place] [address], [place] [address] Oct, [facility] [address] [id number] [address] [place] [address], [place] [address] Oct, [facility] [address] [id number] [address] [place] [address], [place] [address] Oct, [facility] [address] [id number] [address] [place] [address], [place] [address] Oct, [facility] [address] [id number] [address] [place] [address], [place] [address] Sep, [facility] [address] [id number] [address] [place] [address], [place] [address] Sep, [facility] [address] [id number] [address] [place] [address], [place] [address] Sep, [facility] [address] [id number] [address] [place] [address], [place] [address] Aug, [facility] [address] [id number] [address] [place] [address], [place] [address] Aug, [facility] [address] [id number] [address] [place] [address], [place] [address] Aug, [facility] [address] [id number] [address] [place] [address], [place] [address] Aug, [facility] [address] [id number] [address] [place] [address], [place] [address] Aug, [facility] [address] [id number] [address] [place] [address], [place] [address] Aug, [facility] [address] [id number] [address] [place] [address], [place] [address] Jul, [facility] [address] [id number] [address] [place] [address], [place] [address] Jul, [facility] [address] [id number] [address] [place] [address], [place] [address] Jun, [facility] [address] [id number] [address] [place] [address], [place] [address] Jun, [facility] [address] [id number] [address] [place] [address], [place] [address] Jun, [facility] [address] [id number] [address] [place] [address], [place] [address] Apr, [facility] [address] [id number] [address] [place] [address], [place] [address] Apr, [facility] [address] [id number] [address] [place] [address], [place] [address] Mar, [facility] [address] [id number] [address] [place] [address], [place] [address] Mar, [facility] [address] [id number] [address] [place] [address], [place] [address] Mar, [facility] [address] [id number] [address] [place] [address], [place] [address] Mar, [facility] [address] [id number] [address] [place] [address], [place] [address] Feb, [facility] [address] [id number] [address] [place] [address], [place] [address] Feb, [facility] [address] [id number] [address] [place] [address], [place] [address] Feb, [facility] [address] [id number] [address] [place] [address], [place] [address] January, [facility] [address] [id number] [address] [place] [address], [place] [address] January, [facility] [address] [id number] [address] [place] [address], [place] [address] January, [facility] [address] [id number] [address] [place] [address], [place] [address] January, [facility] [address] [id number] [address] [place] [address], [place] [address] Dec, [facility] [address] [id number] [address] [place] [address], [place] [address] Dec, [facility] [address] [id number] [address] [place] [address], [place] [address] Nov, [facility] [address] [id number] [address] [place] [address], [place] [address] Nov, [facility] [address] [id number] [address] [place] [address], [place] [address] Oct, [facility] [address] [id number] [address] [place] [address], [place] [address] Oct, [facility] [address] [id number] [address] [place] [address], [place] [address] Sep, [facility] [address] [id number] [address] [place] [address], [place] [address] Sep, [facility] [address] [id number] [address] [place] [address], [place] [address] Sep, [facility] [address] [id number] [address] [place] [address], [place] [address] Sep, [facility] [address] [id number] [address] [place] [address], [place] [address] 16 Aug, 2011 [facility] [address] [id number] [address] [place] [address], [place] [address] 16 Aug, 2011 [facility] [address] [id number] [address] [place] [address], [place] [address] 09 Aug, 2011 [facility] [address] [id number] [address] [place] [address], [place] [address] 04 Jul, 2011 [facility] [address] [id number] [address] [place] [address], [place] [address] 22 Aug, 2010 [facility] [address] [id number] [address] [place] [address], [place] [address] Aug, [facility] [address] [id number] [address] [place] [address], [place] [address] Aug, [facility] [address] [id number] [address] [place] [address], [place] [address] Aug, [facility] [address] [id number] [address] [place] [address], [place] [address] Jul, [facility] [address] [id number] [address] [place] [address], [place] [address] Jul, [facility] [address] [id number] [address] [place] [address], [place] [address] Jul, [facility] [address] [id number] [address] [place] [address], [place] [address] Jun, [facility] [address] [id number] [address] [place] [address] Jun, [facility] [address] [id number] [address] [place] [address] Jun, [facility] [address] [id number] [address] [place] [address] Apr, [facility] [address] [id number] [address] [place] [address] Mar, IMMUNIZATIONS No Known Immunizations SOCIAL HISTORY Never Assessed REASON FOR VISIT PLAN OF CARE VITAL SIGNS Height 66 in 2014-10-17 Weight 262 lbs 2014-10-17 Temperature 97.3 degrees Fahrenheit 2014-10-17 Heart Rate 76 bpm 2014-10-17 Respiratory Rate 20 2014-10-17 Blood pressure systolic 136 mmHg 2014-10-17 Blood pressure diastolic 80 mmHg 2014-10-17 MEDICATIONS No Known Medications RESULTS No Results [...]
--- OUTSIDE RECORDS SUMMARY | 2020-03-18 15:03 | XMS REPORT ---
Author Author George WAYNE Organization [facility] Address [address] [place] [address] Care Team Providers Care Caterer'S Aide Name Role Phone REYNA WAYNE Unavailable PROBLEMS Type Condition ICD9-CM Code UJG50-MN Code Onset Dates Condition S tatus SNOMED Code Problem Hypertension, benign I10 Active 60657295 Problem Other chronic pain G89.29 Active 8 6139915 Problem Lumbago with sciatica, unspecified side M54.40 Active 110715515 Problem Controlled type 2 diabetes m ellitus without complication, without long- term current use of insulin E11.9 Active 695168761 Problem Lumbago with sciatica, right side M54.41 Active 289246496 Problem Adjustment disorder with disturbance of emotion F4 3.29 Active 91704717 Problem MELE (obstructive sleep apnea) G47.33 Active 67852661 Problem Non morbid obesity E66.9 Active 4 63676742 Problem Hammer toe of left foot M20.42 Active 633947259 Problem Mood disorder F39 Active 716987 05 Problem Deformity of left foot M21.962 Active 944274341 Problem Lumbago with sciatica, left side M54.42 Active 075335118 Problem Erectile dysfunction due to diseases classified elsewhere N52.1 Active 511121019 Problem Obstructive sleep apnea syndrome G47.33 Active 30640619 Problem Type 2 diabetes mellitus wit h diabetic neuropathy, without long-term current use of insulin E11.40 Active 13885 006 Problem Essential hypertension I10 Active 43495806 ALLERGIES No Information ENCOUNTERS Encounter Location Date Diagnosis [facility] [address] [facility] [place] [id number] [address] [place] [id number] 13 Dec, 2019 Acute diffuse otitis externa of left ear H60.312 [facility] [address] [facility] [place] [id number] [address] [place] [address] 18 Nov, 2019 Viral URI J06.9 and Flu-like symptoms R68.89 [place] [address] [facility] [place] [id number] [address] [place] [address] 09 Nov, 2019 Type 2 diabetes mellitus wit h diabetic neuropathy, without long- term current use of insulin E11.40 ; Family history of prostate cancer Z80.42 and Prostate cancer screening Z12.5 [place] [address] [place] [id number] [address] [place] [address] Nov, [place] [address] [place] [id number] [address] [place] [address] Sep, [place] [address] [place] [id number] [address] [place] [address] Aug, [place] [address] [place] [id number] [place] [address] Jul, Lumbago with sciatica, unspe cified side M54.40 [place] [address] [place] [id number] [address] [place] [address] Jun, Lumbago with sciatica, unspe cified side M54.40 [place] [address] [place] [id number] [address] [place] [address] Jun, URI, acute J06.9 [place] [address] [place] [id number] [address] [place] [address] May, Lumbago with sciatica, unspe cified side M54.40 [place] [address] [facility] [place] [id number] [address] [place] [address] May, [place] [address] [place] [id number] [address] [place] [address] 12 May, 2019 Type 2 diabetes mellitus wit h diabetic neuropathy, without long- term current use of insulin E11.40 and Hammer toe of left foot M20.42 [place] [address] [facility] [place] [id number] [address] [place] [address] May, [place] [address] [place] [id number] [address] [place] [address] May, [facility] [address] [place] [id number] [address] [place] [address] May, [facility] [address] [place] [id number] [address] [place] [address] Apr, Lumbago with sciatica, unspe cified side M54.40 [facility] [address] [place] [id number] [address] [place] [address] Apr, [facility] [address] [place] [id number] [address] [place] [address] Apr, [address] [id number] [address] Apr, Hammer toe of left foot M20. 42 ; Chest pain R07.9 ; Preoperative examination Z01.818 and Morbid obesity E66.01 [place] [address] [place] [id number] [address] [place] [address] Apr, Morbid obesity E66.01 ; Bron chitis J40 and High risk medications (not anticoagulants) long-term use Z79.899 [place] [address] [place] [id number] [address] [place] [address] Apr, Lumbago with sciatica, unspe cified side M54.40 [facility] [address] [place] [id number] [address] [place] [address] Apr, [facility] [address] [place] [id number] [address] [place] [address] Mar, Lumbar neuritis M54.16 and M orbid obesity E66.01 [facility] [address] [place] [id number] [address] [place] [address] Mar, [facility] [address] [place] [id number] [address] [place] [address] Mar, [facility] [address] [place] [id number] [address] [place] [address] Mar, Lumbago with sciatica, unspe cified side M54.40 [facility] [address] [id number] [address] [place] [address] Mar, Morbid obesity E66.01 ; Gabe lara R05 ; 2+ pitting edema R60.9 and Controlled type 2 diabetes mellitus without complication, without long-term current use of insulin E11.9 [facility] [address] [id number] [address] [place] [address] Feb, [facility] [address] [id number] [address] [place] [address] Feb, Lumbago with sciatica, unspe cified side M54.40 [facility] [address] [id number] [address] [place] [address] Feb, [facility] [address] [id number] [address] [place] [address] Feb, Controlled type 2 diabetes m ellitus without complication, without long-term current use of insulin E11.9 and Morbid obesity E66.01 [facility] [address] [id number] [address] [place] [address] January, Deformity of left foot M21.9 62 [facility] [address] [id number] [address] [place] [address] January, [facility] [address] [id number] [address] [place] [address] January, Lumbago with sciatica, unspe cified side M54.40 [facility] [address] [id number] [address] [place] [address] January, [facility] [address] [id number] [address] [place] [address] January, Lumbago with sciatica, unspe cified side M54.40 [facility] [address] [id number] [address] [place] [address] January, [facility] [address] [facility] [place] [id number] [address] [place] [address] January, Acute right-sided thoracic b ack pain M54.6 [facility] [address] [place] [id number] [address] [place] [address] January, Acute right-sided thoracic b ack pain M54.6 [facility] [address] [address] January, Chest pain, unspecified type R07.9 ; Morbid obesity E66.01 and Scabies B86 [facility] [address] [place] [id number] [address] [place] [address] Dec, Lumbago with sciatica, unspe cified side M54.40 [place] [id number] [address] Dec, Toenail fungus B35.1 [facility] [address] [place] [id number] [address] [place] [address] Dec, Toenail fungus B35.1 [facility] [address] [address] Dec, Acute right-sided thoracic b ack pain M54.6 [place] [id number] [place] [id number] [address] [place] [address] Dec, Lumbago with sciatica, unspe cified side M54.40 [facility] [address] [place] [id number] [address] [place] [address] Nov, Hammer toe of left foot M20. 42 ; Deformity of left foot M21.962 and Type 2 diabetes mellitus with diabetic neuropathy, without long-term current use of insulin E11.40 [facility] [address] [facility] [place] [id number] [address] [place] [address] Nov, Acute right-sided thoracic b ack pain M54.6 ; Morbid obesity E66.01 and Rt flank pain R10.9 [place] [address] [facility] [place] [id number] [address] [place] [address] Nov, Lumbago with sciatica, unspe cified side M54.40 [place] [address] [place] [id number] [address] [place] [address] Oct, Lumbago with sciatica, unspe cified side M54.40 [place] [address] [place] [id number] [place] [address] Sep, Lumbago with sciatica, unspe cified side M54.40 [place] [address] [place] [id number] [address] [place] [address] Sep, [place] [address] [place] [id number] [place] [address] Sep, BMI 40.0-44.9, adult Z68.41 ; Lumbago with sciatica, left side M54.42 ; Lumbago with sciatica, right side M54.41 and Other chronic pain G89.29 [place] [address] [place] [id number] [address] [place] [address] Aug, Lumbago with sciatica, unspe cified side M54.40 [place] [address] [place] [id number] [address] [place] [address] Aug, Type 2 diabetes mellitus wit h diabetic neuropathy, without long- term current use of insulin E11.40 ; Hammer toe of left foot M20.42 ; Hypertension, benign I10 and Frequent headaches R51 [place] [address] [place] [id number] [address] [place] [address] Jul, Lumbago with sciatica, unspe cified side M54.40 [place] [address] [place] [id number] [address] [place] [address] Jul, [place] [address] [place] [id number] [address] [place] [address] Jul, Essential hypertension I10 a nd Controlled type 2 diabetes mellitus without complication, without long-term current use of insulin E11.9 [facility] [address] [facility] [place] [id number] [address] [place] [address] Jul, Essential hypertension I10 ; Controlled type 2 diabetes mellitus without complication, without long-term current use of insulin E11.9 and BMI 40.0-44.9, adult Z68.41 [facility] [address] [facility] [place] [id number] [address] [place] [address] Jul, Dysfunction of left eustachi an tube H69.82 [facility] [address] [id number] [address] [place] [address] Jul, Lumbago with sciatica, unspe cified side M54.40 [facility] [address] [id number] [address] [place] [address] [id number] Jun, Dental examination Z01.20 [facility] [address] [facility] [place] [id number] [address] [place] [address] Jun, Lumbago with sciatica, unspe cified side M54.40 and Encounter for immunization Z23 [facility] [address] [facility] [place] [id number] [address] [place] [address] Jun, Dysfunction of left eustachi an tube H69.82 [place] [id number] [facility] [address] [id number] [place] [address] [id number] Jun, Dental examination Z01.20 [facility] [address] [id number] [address] [place] [address] Jun, Other chronic pain G89.29 [facility] [address] [id number] [address] [place] [address] [id number] Jun, Dental examination Z01.20 [facility] [address] [id number] [address] [place] [address] Jun, [facility] [address] [id number] [address] [place] [address] Jun, Bronchitis J40 ; Dysfunction of left eustachian tube H69.82 and BMI 45.0-49.9, adult Z68.42 [facility] [address] [place] [id number] [address] [place] [address] Jun, Lumbago with sciatica, unspe cified side M54.40 [facility] [address] [place] [id number] [address] [place] [address] May, Type 2 diabetes mellitus wit h diabetic neuropathy, without long- term current use of insulin E11.40 and Hypertension, benign I10 [facility] [address] [place] [id number] [address] [place] [address] May, Lumbago with sciatica, unspe cified side M54.40 [facility] [address] [place] [id number] [address] [place] [address] Apr, [facility] [address] [address] Apr, Controlled type 2 diabetes m ellitus without complication, without long-term current use of insulin E11.9 ; Insect bite (nonvenomous), right ankle, initial encounter S90.561A ; Local infection of the skin and subcutaneous tissue, unspecified L08.9 ; Acute swimmer''s ear of left side H60.332 and BMI 45.0-49.9, adult Z68.42 [place] [address] [place] [id number] [address] [place] [address] Apr, Lumbago with sciatica, unspe cified side M54.40 [facility] [address] [place] [id number] [address] [place] [address] Mar, [place] [address] [place] [id number] [place] [address] Mar, Lumbago with sciatica, unspe cified side M54.40 [facility] [address] [place] [id number] [address] [place] [address] Feb, Lumbago with sciatica, unspe cified side M54.40 [facility] [address] [facility] [place] [id number] [address] [place] [address] Feb, BMI 45.0-49.9, adult Z68.42 and Obstructive sleep apnea syndrome G47.33 [place] [address] [place] [id number] [address] [place] [address] January, Lumbar neuritis M54.16 [place] [address] [facility] [place] [id number] [address] [place] [address] January, Lumbago with sciatica, unspe cified side M54.40 [place] [address] [place] [id number] [place] [address] Dec, Controlled type 2 diabetes m maribell without complication, without long-term current use of insulin E11.9 ; Erectile dysfunction due to diseases classified elsewhere N52.1 and Mood disorder F39 [place] [address] [place] [id number] [address] [place] [address] Dec, Lumbago with sciatica, unspe cified side M54.40 [place] [address] [place] [id number] [address] [place] [address] Dec, Obstructive sleep apnea synd luis G47.33 [place] [address] [place] [id number] [address] [place] [address] Nov, Lumbago with sciatica, unspe cified side M54.40 ; Hypertension, benign I10 and Mood disorder F39 [facility] [address] [place] [id number] [address] [place] [address] Nov, Other chronic pain G89.29 [facility] [address] [facility] [place] [id number] [address] [place] [address] Nov, Lumbago with sciatica, unspe cified side M54.40 [facility] [address] [id number] [address] [place] [address] [id number] Nov, Dental examination Z01.20 [facility] [address] [facility] [place] [id number] [address] [place] [address] Oct, [facility] [address] [facility] [place] [id number] [address] [place] [address] Oct, Lumbago with sciatica, unspe cified side M54.40 [facility] [address] [facility] [place] [id number] [address] [place] [address] Oct, Lumbago with sciatica, unspe cified side M54.40 [facility] [address] [facility] [place] [id number] [address] [place] [address] Oct, [facility] [address] [facility] [place] [id number] [address] [place] [address] Oct, [facility] [address] [facility] [id number] [address] [place] [address] [id number] Oct, Dental examination Z01.20 [facility] [address] [facility] [place] [id number] [address] [place] [address] Oct, [facility] [address] [facility] [place] [id number] [address] [place] [address] Oct, Pain in right knee M25.561 [facility] [address] [facility] [place] [id number] [address] [place] [address] Sep, [facility] [address] [facility] [place] [id number] [address] [place] [address] Sep, Other chronic pain G89.29 [facility] [address] [facility] [place] [id number] [address] [place] [address] Sep, Lumbago with sciatica, unspe cified side M54.40 [facility] [address] [facility] [place] [id number] [address] [place] [address] Sep, [facility] [address] [facility] [place] [id number] [address] [place] [address] Sep, Viral URI J06.9 and BMI 45.0 -49.9, adult Z68.42 [facility] [address] [facility] [place] [id number] [address] [place] [address] Aug, Foreign body hand S60.559A a nd BMI 45.0-49.9, adult Z68.42 [facility] [address] [facility] [place] [id number] [address] [place] [address] Aug, [facility] [address] [place] [id number] [address] [place] [address] Aug, Lumbago with sciatica, unspe cified side M54.40 [facility] [address] [facility] [place] [id number] [address] [place] [address] Aug, Vertigo R42 ; Dysfunction of both eustachian tubes H69.83 ; Low back pain M54.5 and Other chronic pain G89.29 [facility] [address] [facility] [place] [id number] [address] [place] [address] Aug, Dizziness R42 and Acute bila teral otitis media H66.93 [facility] [address] [facility] [place] [id number] [address] [place] [address] Aug, Lumbago with sciatica, unspe cified side M54.40 [facility] [address] [facility] [id number] [address] [place] [address] [id number] Jul, Dental examination Z01.20 [facility] [address] [place] [id number] [address] [place] [address] Jul, [facility] [address] [facility] [place] [id number] [address] [place] [address] Jul, [facility] [address] [facility] [place] [id number] [address] [place] [address] Jul, Dysfunction of both eustachi an tubes H69.83 [facility] [address] [facility] [place] [id number] [address] [place] [address] 07 Jul, 2017 Controlled type 2 diabetes m taraitus without complication, without long-term current use of insulin E11.9 [facility] [address] [id number] [address] [place] [address] Jul, Controlled type 2 diabetes m ellitus without complication, without long-term current use of insulin E11.9 [facility] [address] [id number] [address] [place] [address] Jul, Dizziness R42 and BMI 40.0-4 4.9, adult Z68.41 [facility] [address] [facility] [id number] [address] [place] [address] Jul, Controlled type 2 diabetes m ellitus without complication, without long-term current use of insulin E11.9 [facility] [address] [facility] [id number] [address] [place] [address] Jul, Lumbago with sciatica, unspe cified side M54.40 [facility] [address] [id number] [place] [address] [id number] Jul, Dental examination Z01.20 [facility] [address] [id number] [address] [place] [address] Jun, [facility] [id number] [place] [address] [id number] Jun, Dental examination Z01.20 [facility] [address] [facility] [id number] [address] [place] [address] Jun, Controlled type 2 diabetes m ellitus without complication, without long-term current use of insulin E11.9 [facility] [address] [id number] [address] [place] [address] Jun, Lumbago with sciatica, unspe cified side M54.40 [facility] [address] [place] [id number] [place] [address] [id number] May, Dental examination Z01.20 [facility] [address] [id number] [address] [place] [address] May, Controlled type 2 diabetes m ellitus without complication, without long-term current use of insulin E11.9 [facility] [address] [id number] [address] [place] [address] [id number] 19 May, 2017 Dental examination Z01.20 [facility] [address] [facility] [id number] [address] [place] [phone] 18 May, 2017 Bronchitis J40 ; Dry mouth R 68.2 ; Non morbid obesity E66.9 and Controlled type 2 diabetes mellitus without complication, without long-term current use of insulin E11.9 [facility] [address] [facility] [place] [id number] [address] [place] [phone] 16 May, 2017 Encounter for immunization Z 23 [place] [address] [facility] [place] [id number] [place] [phone] 07 May, 2017 Lumbago with sciatica, unspe cified side M54.40 [facility] [address] [facility] [place] [id number] [address] [place] [phone] 05 May, 2017 [facility] [address] [id number] [place] [address] [id number] Apr, Dental examination Z01.20 [facility] [address] [id number] [address] [place] [phone] Apr, Lumbago with sciatica, unspe cified side M54.40 [facility] [address] [facility] [place] [id number] [address] [place] [phone] Mar, Lumbago with sciatica, left side M54.42 [facility] [address] [facility] [place] [id number] [address] [place] [phone] Mar, [facility] [address] [facility] [place] [id number] [address] [place] [phone] Mar, Lumbar neuritis M54.16 [facility] [address] [facility] [place] [id number] [address] [place] [phone] Mar, [facility] [address] [id number] [address] [place] [address] [phone] Mar, Dental examination Z01.20 [place] [address] [facility] [place] [id number] [address] [place] [phone] Mar, [facility] (obstructive sleep apnea ) G47.33 ; Neuropathy involving both lower extremities G57.93 and Frequent headaches R51 [place] [address] [address] [facility] [place] [id number] [address] [place] [address] Mar, Lumbago with sciatica, unspe cified side M54.40 [place] [address] [address] [place] [id number] [address] [place] [address] Feb, Lumbago with sciatica, unspe cified side M54.40 and Controlled type 2 diabetes mellitus without complication, without long-term current use of insulin E11.9 [place] [address] [address] [place] [id number] [place] [address] January, Hypertension, benign I10 and Bilateral low back pain with sciatica, sciatica laterality unspecified M54.40 [place] [address] [address] [place] [id number] [place] [address] January, Hypertension, benign I10 ; L umbago with sciatica, unspecified side M54.40 ; Other chronic pain G89.29 and Controlled type 2 diabetes mellitus without complication, without long-term current use of insulin E11.9 [place] [address] [address] [place] [id number] [address] [place] [address] January, Lumbar neuritis M54.16 [place] [address] [address] [place] [id number] [address] [place] [address] January, [place] [address] [address] [place] [id number] [address] [place] [address] Dec, Lumbago with sciatica, right side M54.41 and Lumbar neuritis M54.16 [place] [address] [address] [place] [id number] [address] [place] [address] Dec, Lumbar neuritis M54.16 [place] [address] [address] [place] [id number] [address] [place] [address] Dec, Lumbar neuritis M54.16 [place] [address] [place] [id number] [address] [place] [address] Nov, Lumbar neuritis M54.16 ; Lum bago with sciatica, right side M54.41 ; Controlled type 2 diabetes mellitus without complication, without long-term current use of insulin E11.9 and Rash and nonspecific skin eruption R21 [place] [address] [address] [place] [id number] [address] [place] [address] Nov, Lumbar neuritis M54.16 and P derickpeter miroslava L23.7 [place] [address] [address] [place] [id number] [address] [place] [address] Oct, Lumbar neuritis M54.16 ; Cou ghing R05 and Mood disorder F39 [place] [address] [address] [place] [id number] [address] [place] [address] Sep, Lumbago with sciatica, right side M54.41 [place] [address] [address] [place] [id number] [address] [place] [address] Sep, Adjustment disorder with dis turbance of emotion F43.29 and Pain management R52 [place] [address] [address] [place] [id number] [address] [place] [address] Sep, [place] [address] [address] [place] [id number] [address] [place] [address] Sep, [place] [address] [place] [id number] [address] [place] [address] Sep, Controlled type 2 diabetes evens reyna without complication, without long-term current use of insulin E11.9 and Lumbago with sciatica, unspecified side M54.40 [place] [address] [address] [place] [id number] [address] [place] [address] Aug, Controlled type 2 diabetes evens reyna without complication, without long-term current use of insulin E11.9 ; Pain in right knee M25.561 ; Pain in left knee M25.562 ; Other chronic pain G89.29 ; Lumbago with sciatica, right side M54.41 ; Neck pain M54.2 and Encounter for immunization Z23 [facility] [address] [id number] [address] [place] [address] Jul, [facility] [address] [id number] [address] [place] [address] Jul, Controlled type 2 diabetes m maribell without complication, without long-term current use of insulin E11.9 [facility] [address] [id number] [address] [place] [address] Jul, [facility] [address] [id number] [address] [place] [address] Jul, [facility] [address] [id number] [address] [place] [address] Jul, Lumbago with sciatica, left side M54.42 ; Lumbago with sciatica, right side M54.41 and Other chronic pain G89.29 [facility] [address] [id number] [address] [place] [address] Jul, [facility] [address] [id number] [address] [place] [address] Jul, [facility] [address] [id number] [address] [place] [address] Jun, [facility] [address] [id number] [address] [place] [address] Jun, Lumbago with sciatica, right side M54.41 and Other chronic pain G89.29 [facility] [address] [id number] [address] [place] [address] Jun, Cervicalgia M54.2 ; Lumbago with sciatica, unspecified side M54.40 and Other chronic pain G89.29 [facility] [address] [id number] [address] [place] [address] 15 May, 2016 Pain in right knee M25.561 ; Pain in left knee M25.562 and Other chronic pain G89.29 [facility] [address] [id number] [address] [place] [address] May, [facility] [address] [id number] [address] [place] [address] Apr, Other chronic pain G89.29 an d Pain in right knee M25.561 [facility] [address] [id number] [address] [place] [address] Apr, Pain in right knee M25.561 [facility] [address] [id number] [address] [place] [address] Mar, [facility] [address] [id number] [address] [place] [address] Mar, Mood disorder F39 and Contro lled type 2 diabetes mellitus without complication, without long-term current use of insulin E11.9 [facility] [address] [id number] [address] [place] [address] Mar, Pain in right knee M25.561 ; Pain in left knee M25.562 ; Other chronic pain G89.29 ; Obstructive sleep apnea syndrome G47.33 ; Mood disorder F39 and Controlled type 2 diabetes mellitus without complication, without long- term current use of insulin E11.9 [facility] [address] [id number] [address] [place] [address] Mar, [facility] [address] [id number] [address] [place] [id number] Feb, Dental examination Z01.20 [facility] [address] [id number] [address] [place] [address] Feb, [facility] [address] [id number] [address] [place] [address] Feb, Osteoarthritis of right knee , unspecified osteoarthritis type M17.9 [facility] [address] [id number] [address] [place] [address] January, [facility] [address] [id number] [address] [place] [id number] January, Dental examination Z01.20 [facility] [address] [id number] [address] [place] [address] January, [facility] [address] [id number] [address] [place] [address] [id number] January, Dental examination Z01.20 an d Caries K02.9 [facility] [address] [id number] [address] [place] [address] Dec, Encounter for other preproce dural examination Z01.818 [facility] [address] [id number] [address] [place] [address] Dec, [facility] [address] [id number] [address] [place] [address] Dec, Knee pain M25.569 [facility] [address] [id number] [address] [place] [address] Dec, Pain in right knee M25.561 [facility] [address] [id number] [address] [place] [address] Dec, [facility] [address] [id number] [address] [place] [address] Dec, [facility] [address] [id number] [address] [place] [address] Dec, Encounter for immunization Z 23 [facility] [address] [id number] [address] [place] [address] Dec, [facility] [address] [id number] [address] [place] [address] Dec, [facility] [address] [id number] [address] [place] [address] Nov, [facility] [address] [id number] [address] [place] [address] Nov, Hypertension, benign I10 ; C ervicalgia M54.2 ; Pain in right knee M25.561 and Pain in left knee M25.562 [place] [id number] [facility] [place] [id number] [address] [place] [address] Oct, [facility] [address] [facility] [place] [id number] [address] [place] [address] Oct, [facility] [address] [facility] [place] [id number] [address] [place] [address] Oct, Osteoarthritis of both knees M17.0 [place] [address] [address] [facility] [place] [id number] [address] [place] [address] Oct, [place] [address] [address] [facility] [place] [id number] [address] [place] [address] Oct, Low back pain M54.5 [place] [address] [address] [facility] [place] [id number] [address] [place] [address] Oct, Low back pain M54.5 ; Sciati ca, unspecified side M54.30 ; Pain in right knee M25.561 ; Pain in left knee M25.562 ; Pain in right shoulder M25.511 and Pain in left shoulder M25.512 [place] [address] [address] [facility] [place] [id number] [address] [place] [address] Oct, [place] [address] [address] [facility] [place] [id number] [address] [place] [address] Sep, Pain in right hip M25.551 [place] [address] [address] [facility] [place] [id number] [address] [place] [address] Sep, Acute upper respiratory infe ction, unspecified J06.9 [place] [address] [address] [facility] [place] [id number] [address] [place] [address] Aug, Acute upper respiratory infe ction, unspecified J06.9 and Other viral agents as the cause of diseases classified elsewhere B97.89 [place] [address] [address] [facility] [place] [id number] [address] [place] [address] Jul, Arthritis M19.90 [facility] [address] [id number] [address] [place] [address] Jun, Arthritis M19.90 ; Pain in r ight hip M25.551 ; Pain in left hip M25.552 ; Bilateral low back pain with sciatica, sciatica laterality unspecified M54.40 ; Neck pain M54.2 ; Upper back pain M54.9 and Knee pain, unspecified laterality M25.569 [facility] [address] [id number] [address] [place] [address] May, Osteoarthritis of both knees 715.96 [facility] [address] [id number] [address] [place] [address] May, Rash 782.1 [facility] [address] [id number] [address] [place] [address] Apr, Lumbar strain 847.2 [facility] [address] [id number] [address] [place] [address] Apr, Rash 782.1 [facility] [address] [id number] [address] [place] [address] Mar, Rash 782.1 [facility] [address] [facility] [place] [id number] [address] [place] [address] Feb, Rash 782.1 ; Hemorrhoids 455 .6 and Constipation 564.00 [facility] [address] [id number] [address] [place] [address] Feb, Osteoarthritis of both knees 715.96 [facility] [address] [id number] [address] [place] [address] January, [facility] [address] [id number] [address] [place] [address] Dec, [facility] [address] [facility] [place] [id number] [address] [place] [address] Dec, [facility] [address] [id number] [address] [place] [address] 13 Dec, 2014 [facility] [address] [id number] [address] [place] [address], [place] [address] 18 Nov, 2014 [facility] [address] [id number] [address] [place] [address], [place] [address] 18 Nov, 2014 [facility] [address] [id number] [address] [place] [address], [place] [address] 18 Nov, 2014 [facility] [address] [id number] [address] [place] [address], [place] [address] 18 Nov, 2014 [facility] [address] [id number] [address] [place] [address], [place] [address] Nov, [facility] [address] [id number] [address] [place] [address], [place] [address] Nov, [facility] [address] [id number] [address] [place] [address], [place] [address] Oct, [facility] [address] [id number] [address] [place] [address], [place] [address] Oct, [facility] [address] [id number] [address] [place] [address], [place] [address] Oct, 2014 [facility] [address] [id number] [address] [place] [address], [place] [address] Oct, [facility] [address] [id number] [address] [place] [address], [place] [address] Oct, 2014 [facility] [address] [id number] [address] [place] [address], [place] [address] Oct, 2014 [facility] [address] [id number] [address] [place] [address], [place] [address] Oct, 2014 [facility] [address] [id number] [address] [place] [address], [place] [address] Oct, 2014 [facility] [address] [id number] [address] [place] [address], [place] [address] Oct, [facility] [address] [id number] [address] [place] [address], [place] [address] Oct, [facility] [address] [id number] [address] [place] [address], [place] [address] Oct, [facility] [address] [id number] [address] [place] [address], [place] [address] Sep, [facility] [address] [id number] [address] [place] [address], [place] [address] Sep, [facility] [address] [id number] [address] [place] [address], [place] [address] Sep, [facility] [address] [id number] [address] [place] [address], [place] [address] Sep, [facility] [address] [id number] [address] [place] [address], [place] [address] Sep, [facility] [address] [id number] [address] [place] [address], [place] [address] Sep, [facility] [address] [id number] [address] [place] [address], [place] [address] Aug, [facility] [address] [id number] [address] [place] [address], [place] [address] Aug, [facility] [address] [id number] [address] [place] [address], [place] [address] Aug, [facility] [address] [id number] [address] [place] [address], [place] [address] Aug, [facility] [address] [id number] [address] [place] [address], [place] [address] Aug, [facility] [address] [id number] [address] [place] [address], [place] [address] Aug, [facility] [address] [id number] [address] [place] [address], [place] [address] Aug, [facility] [address] [id number] [address] [place] [address], [place] [address] Aug, [facility] [address] [id number] [address] [place] [address], [place] [address] Aug, [facility] [address] [id number] [address] [place] [address], [place] [address] Aug, [facility] [address] [id number] [address] [place] [address], [place] [address] Jul, [facility] [address] [id number] [address] [place] [address], [place] [address] Jul, [facility] [address] [id number] [address] [place] [address], [place] [address] Jul, [facility] [address] [id number] [address] [place] [address], [place] [address] Jul, [facility] [address] [id number] [address] [place] [address], [place] [address] Jun, [facility] [address] [id number] [address] [place] [address], [place] [address] Jun, [facility] [address] [id number] [address] [place] [address], [place] [address] Jun, [facility] [address] [id number] [address] [place] [address], [place] [address] Jun, [facility] [address] [id number] [address] [place] [address], [place] [address] Jun, [facility] [address] [id number] [address] [place] [address], [place] [address] Jun, [facility] [address] [id number] [address] [place] [address], [place] [address] Jun, [facility] [address] [id number] [address] [place] [address], [place] [address] Jun, [facility] [address] [id number] [address] [place] [address], [place] [address] May, [facility] [address] [id number] [facility] [place] [address] 24 May, 2013 [facility] [address] [id number] [facility] [place] [address] 19 May, 2014 [facility] [address] [id number] [facility] [place] [address] 19 May, 2013 [facility] [address] [id number] [address] [place] [address], [place] [address] 15 May, 2014 [facility] [address] [id number] [address] [place] [address], [place] [address] 15 May, 2014 [facility] [address] [id number] [address] [place] [address], [place] [address] 15 May, 2014 [facility] [address] [id number] [address] [place] [address], [place] [address] May, [facility] [address] [id number] [address] [place] [address], [place] [address] Apr, [facility] [address] [id number] [address] [place] [address], [place] [address] Apr, [facility] [address] [id number] [address] [place] [address], [place] [address] Apr, [facility] [address] [id number] [address] [place] [address], [place] [address] Apr, [facility] [address] [id number] [address] [place] [address], [place] [address] Apr, [facility] [address] [id number] [address] [place] [address], [place] [address] Apr, [facility] [address] [id number] [address] [place] [address], [place] [address] Apr, [facility] [address] [id number] [address] [place] [address], [place] [address] Apr, [facility] [address] [id number] [address] [place] [address], [place] [address] Apr, [facility] [address] [id number] [address] [place] [address], [place] [address] Apr, [facility] [address] [id number] [address] [place] [address], [place] [address] Apr, [facility] [address] [id number] [address] [place] [address], [place] [address] Apr, [facility] [address] [id number] [address] [place] [address], [place] [address] Mar, [facility] [address] [id number] [address] [place] [address], [place] [address] Mar, [facility] [address] [id number] [address] [place] [address], [place] [address] Mar, [facility] [address] [id number] [address] [place] [address], [place] [address] Mar, [facility] [address] [id number] [address] [place] [address], [place] [address] Mar, [facility] [address] [id number] [address] [place] [address], [place] [address] Mar, [facility] [address] [id number] [address] [place] [address], [place] [address] Feb, [facility] [address] [id number] [address] [place] [address], [place] [address] Feb, [facility] [address] [id number] [address] [place] [address], [place] [address] Feb, [facility] [address] [id number] [address] [place] [address], [place] [address] Feb, [facility] [address] [id number] [address] [place] [address], [place] [address] Feb, [facility] [address] [id number] [address] [place] [address], [place] [address] Feb, [facility] [address] [id number] [facility] [place] [address] Feb, [facility] [address] [id number] [address] [place] [address], [place] [address] Feb, [facility] [address] [id number] [address] [place] [address], [place] [address] Feb, [facility] [address] [id number] [address] [place] [address], [place] [address] Feb, [facility] [address] [id number] [address] [place] [address], [place] [address] Feb, [facility] [address] [id number] [address] [place] [address], [place] [address] Feb, [facility] [address] [id number] [address] [place] [address], [place] [address] Feb, [facility] [address] [id number] [address] [place] [address], [place] [address] Feb, [facility] [address] [id number] [address] [place] [address], [place] [address] January, [facility] [address] [id number] [address] [place] [address], [place] [address] January, [facility] [address] [id number] [address] [place] [address], [place] [address] January, [facility] [address] [id number] [address] [place] [address], [place] [address] January, [facility] [address] [id number] [address] [place] [address], [place] [address] January, [facility] [address] [id number] [address] [place] [address], [place] [address] January, [facility] [address] [id number] [address] [place] [address], [place] [address] Dec, [facility] [address] [id number] [address] [place] [address], [place] [address] Dec, [facility] [address] [id number] [address] [place] [address], [place] [address] Dec, [facility] [address] [id number] [address] [place] [address], [place] [address] Dec, [facility] [address] [id number] [address] [place] [address], [place] [address] Dec, [facility] [address] [id number] [address] [place] [address], [place] [address] Dec, [facility] [address] [id number] [address] [place] [address], [place] [address] Dec, [facility] [address] [id number] [address] [place] [address], [place] [address] Dec, [facility] [address] [id number] [address] [place] [address], [place] [address] Nov, [facility] [address] [id number] [address] [place] [address], [place] [address] Nov, [facility] [address] [id number] [address] [place] [address], [place] [address] Nov, [facility] [address] [id number] [address] [place] [address], [place] [address] Nov, [facility] [address] [id number] [address] [place] [address], [place] [address] Nov, [facility] [address] [id number] [address] [place] [address], [place] [address] Nov, [facility] [address] [id number] [address] [place] [address], [place] [address] Nov, [facility] [address] [id number] [address] [place] [address], [place] [address] Nov, [facility] [address] [id number] [address] [place] [address], [place] [address] Oct, [facility] [address] [id number] [address] [place] [address], [place] [address] Oct, [facility] [address] [id number] [address] [place] [address], [place] [address] Oct, [facility] [address] [id number] [address] [place] [address], [place] [address] Oct, [facility] [address] [id number] [address] [place] [address], [place] [address] Oct, [facility] [address] [id number] [address] [place] [address], [place] [address] Oct, [facility] [address] [id number] [address] [place] [address], [place] [address] Oct, [facility] [address] [id number] [address] [place] [address], [place] [address] Oct, [facility] [address] [id number] [address] [place] [address], [place] [address] Oct, [facility] [address] [id number] [address] [place] [address], [place] [address] Oct, [facility] [address] [id number] [address] [place] [address], [place] [address] Sep, [facility] [address] [id number] [address] [place] [address], [place] [address] Sep, [facility] [address] [id number] [address] [place] [address], [place] [address] Sep, [facility] [address] [id number] [address] [place] [address], [place] [address] Sep, [facility] [address] [id number] [address] [place] [address], [place] [address] Sep, [facility] [address] [id number] [address] [place] [address], [place] [address] Sep, [facility] [address] [id number] [address] [place] [address], [place] [address] Aug, [facility] [address] [id number] [address] [place] [address], [place] [address] Aug, [facility] [address] [id number] [address] [place] [address], [place] [address] Aug, [facility] [address] [id number] [address] [place] [address], [place] [address] Aug, [facility] [address] [id number] [address] [place] [address], [place] [address] Aug, [facility] [address] [id number] [address] [place] [address], [place] [address] Aug, [facility] [address] [id number] [address] [place] [address], [place] [address] Aug, [facility] [address] [id number] [address] [place] [address], [place] [address] Aug, [facility] [address] [id number] [address] [place] [address], [place] [address] Jul, [facility] [address] [id number] [address] [place] [address], [place] [address] Jul, [facility] [address] [id number] [address] [place] [address], [place] [address] Jul, [facility] [address] [id number] [address] [place] [address], [place] [address] Jul, [facility] [address] [id number] [address] [place] [address] Jul, [facility] [address] [id number] [address] [place] [address], [place] [address] Jul, [facility] [address] [id number] [address] [place] [address], [place] [address] Jun, [facility] [address] [id number] [address] [place] [address], [place] [address] Jun, [facility] [address] [id number] [address] [place] [address] [place] [address] Jun, [facility] [address] [id number] [address] [place] [address], [place] [address] 24 May, 2013 [facility] [address] [id number] [address] [place] [address], [place] [address] May, [facility] [address] [id number] [address] [place] [address], [place] [address] May, [facility] [address] [id number] [address] [place] [address], [place] [address] Apr, [facility] [address] [id number] [address] [place] [address], [place] [address] Apr, [facility] [address] [id number] [address] [place] [address], [place] [address] Apr, [facility] [address] [id number] [address] [place] [address], [place] [address] Apr, [facility] [address] [id number] [address] [place] [address], [place] [address] Mar, [facility] [address] [id number] [address] [place] [address], [place] [address] Mar, [facility] [address] [id number] [address] [place] [address], [place] [address] Mar, [facility] [address] [id number] [address] [place] [address], [place] [address] Mar, [facility] [address] [id number] [address] [place] [address], [place] [address] Feb, [facility] [address] [id number] [address] [place] [address], [place] [address] Feb, [facility] [address] [id number] [address] [place] [address], [place] [address] Feb, [facility] [address] [id number] [address] [place] [address], [place] [address] Feb, [facility] [address] [id number] [address] [place] [address], [place] [address] January, [facility] [address] [id number] [address] [place] [address], [place] [address] January, [facility] [address] [id number] [address] [place] [address], [place] [address] January, [facility] [address] [id number] [address] [place] [address], [place] [address] Nov, [facility] [address] [id number] [address] [place] [address], [place] [address] Nov, [facility] [address] [id number] [address] [place] [address], [place] [address] Oct, [facility] [address] [id number] [address] [place] [address], [place] [address] Oct, [facility] [address] [id number] [address] [place] [address], [place] [address] Oct, [facility] [address] [id number] [address] [place] [address], [place] [address] Oct, [facility] [address] [id number] [address] [place] [address], [place] [address] Sep, [facility] [address] [id number] [address] [place] [address], [place] [address] Sep, [facility] [address] [id number] [address] [place] [address], [place] [address] Sep, [facility] [address] [id number] [address] [place] [address], [place] [address] Aug, [facility] [address] [id number] [address] [place] [address], [place] [address] Aug, [facility] [address] [id number] [address] [place] [address], [place] [address] Aug, [facility] [address] [id number] [address] [place] [address], [place] [address] Aug, [facility] [address] [id number] [address] [place] [address], [place] [address] Aug, [facility] [address] [id number] [address] [place] [address], [place] [address] Aug, [facility] [address] [id number] [address] [place] [address], [place] [address] Jul, [facility] [address] [id number] [address] [place] [address], [place] [address] Jul, [facility] [address] [id number] [address] [place] [address], [place] [address] Jun, [facility] [address] [id number] [address] [place] [address], [place] [address] Jun, [facility] [address] [id number] [address] [place] [address], [place] [address] Jun, [facility] [address] [id number] [address] [place] [address], [place] [address] Apr, [facility] [address] [id number] [address] [place] [address], [place] [address] Apr, [facility] [address] [id number] [address] [place] [address], [place] [address] Mar, [facility] [address] [id number] [address] [place] [address], [place] [address] Mar, [facility] [address] [id number] [address] [place] [address] Mar, [facility] [address] [id number] [address] [place] [address], [place] [address] Mar, [facility] [address] [id number] [address] [place] [address], [place] [address] Feb, [facility] [address] [id number] [address] [place] [address], [place] [address] Feb, [facility] [address] [id number] [address] [place] [address], [place] [address] Feb, [facility] [address] [id number] [address] [place] [address], [place] [address] January, [facility] [address] [id number] [address] [place] [address], [place] [address] January, [facility] [address] [id number] [address] [place] [address], [place] [address] January, [facility] [address] [id number] [address] [place] [address], [place] [address] January, [facility] [address] [id number] [address] [place] [address], [place] [address] Dec, [facility] [address] [id number] [address] [place] [address], [place] [address] Dec, [facility] [address] [id number] [address] [place] [address], [place] [address] Nov, [facility] [address] [id number] [address] [place] [address], [place] [address] Nov, [facility] [address] [id number] [address] [place] [address], [place] [address] 16 Oct, 2011 [facility] [address] [id number] [address] [place] [address], [place] [address] Oct, [facility] [address] [id number] [address] [place] [address], [place] [address] Sep, [facility] [address] [id number] [address] [place] [address], [place] [address] Sep, [facility] [address] [id number] [address] [place] [address], [place] [address] Sep, [facility] [address] [id number] [address] [place] [address], [place] [address] Sep, [facility] [address] [id number] [address] [place] [address], [place] [address] Aug, [facility] [address] [id number] [address] [place] [address] 16 Aug, 2011 [facility] [address] [id number] [address] [place] [address] Aug, [facility] [address] [id number] [address] [place] [address] Jul, [facility] [address] [id number] [address] [place] [address] Aug, [facility] [address] [id number] [address] [place] [address] Aug, [facility] [address] [id number] [address] [place] [address] Aug, [facility] [address] [id number] [address] [place] [address] Aug, [facility] [address] [id number] [address] [place] [address] Jul, [facility] [address] [id number] [address] [place] [address] Jul, [facility] [address] [id number] [address] [place] [address] Jul, [facility] [address] [id number] [address] [place] [address] Jun, [facility] [address] [id number] [address] [place] [address] Jun, [facility] [address] [id number] [address] [place] [address] Jun, [facility] [address] [id number] [address] [place] [address] Apr, [facility] [address] [id number] [address] [place] [address] Mar, IMMUNIZATIONS No Known Immunizations SOCIAL HISTORY [...]
--- OUTSIDE RECORDS SUMMARY | 2020-03-18 15:03 | XMS REPORT ---
Author Author George Benavides Organization [facility] Address [address] [place] [address] Care Team Providers Care Bulk Filler Name Role Phone NUHA Benavides Unavailable PROBLEMS Type Condition ICD9-CM Code EOP12-FW Code Onset Dates Condition S tatus SNOMED Code Problem Hypertension, benign I10 Active 06493688 Problem Other chronic pain G89.29 Active 8 3315385 Problem Lumbago with sciatica, unspecified side M54.40 Active 985933678 Problem Controlled type 2 diabetes m ellitus without complication, without long- term current use of insulin E11.9 Active 936180423 Problem Lumbago with sciatica, right side M54.41 Active 776131333 Problem Adjustment disorder with disturbance of emotion F4 3.29 Active 87630961 Problem MELE (obstructive sleep apnea) G47.33 Active 02681339 Problem Non morbid obesity E66.9 Active 4 54252313 Problem Hammer toe of left foot M20.42 Active 138548775 Problem Mood disorder F39 Active 626847 05 Problem Deformity of left foot M21.962 Active 044491948 Problem Lumbago with sciatica, left side M54.42 Active 075559146 Problem Erectile dysfunction due to diseases classified elsewhere N52.1 Active 391610821 Problem Obstructive sleep apnea syndrome G47.33 Active 99144510 Problem Type 2 diabetes mellitus wit h diabetic neuropathy, without long-term current use of insulin E11.40 Active 38633 006 Problem Essential hypertension I10 Active 46324411 ALLERGIES No Information ENCOUNTERS Encounter Location Date Diagnosis [facility] [address] [facility] [id number] [address] [place] [address] Dec, Acute diffuse otitis externa of left ear H60.312 [facility] [address] [facility] [id number] [address] [place] [id number] 18 Nov, 2019 Viral URI J06.9 and Flu-like symptoms R68.89 [place] [address] [place] [id number] [address] [place] [address] Nov, Type 2 diabetes mellitus wit h diabetic neuropathy, without long- term current use of insulin E11.40 ; Family history of prostate cancer Z80.42 and Prostate cancer screening Z12.5 [place] [address] [place] [id number] [address] [place] [address] Nov, [place] [address] [place] [id number] [address] [place] [address] Sep, [place] [address] [place] [id number] [address] [place] [address] Aug, [place] [address] [place] [id number] [place] [id number] Jul, Lumbago with sciatica, unspe cified side M54.40 [place] [address] [place] [id number] [address] [place] [address] Jun, Lumbago with sciatica, unspe cified side M54.40 [place] [address] [address] Jun, URI, acute J06.9 [place] [address] [id number] May, Lumbago with sciatica, unspe cified side M54.40 [place] [address] [place] [id number] [address] [place] [address] May, [place] [address] [place] [id number] [address] [place] [id number] 12 May, 2019 Type 2 diabetes mellitus wit h diabetic neuropathy, without long- term current use of insulin E11.40 and Hammer toe of left foot M20.42 [place] [address] [place] [id number] [address] [place] [address] May, [place] [address] [place] [id number] [place] [address] May, [facility] [address] [facility] [id number] [address] [place] [address] May, [facility] [address] [facility] [id number] [address] [place] [address] Apr, Lumbago with sciatica, unspe cified side M54.40 [facility] [address] [facility] [id number] [address] [place] [address] Apr, [facility] [address] [facility] [id number] [address] [place] [address] Apr, [id number] [place] [phone] Apr, Hammer toe of left foot M20. 42 ; Chest pain R07.9 ; Preoperative examination Z01.818 and Morbid obesity E66.01 [facility] [address] [place] [id number] [address] [place] [address] Apr, Morbid obesity E66.01 ; Bron chitis J40 and High risk medications (not anticoagulants) long-term use Z79.899 [facility] [address] [place] [id number] [address] [place] [address] Apr, Lumbago with sciatica, unspe cified side M54.40 [facility] [address] [place] [id number] [address] [place] [id number] Apr, [facility] [address] [facility] [id number] [address] [place] [address] Mar, Lumbar neuritis M54.16 and M orbid obesity E66.01 [facility] [address] [facility] [id number] [address] [place] [id number] Mar, [facility] [address] [facility] [id number] [address] [place] [id number] Mar, [facility] [address] [place] [id number] [address] [place] [id number] Mar, Lumbago with sciatica, unspe cified side M54.40 [facility] [address] [id number] [address] [place] [address] Mar, Morbid obesity E66.01 ; Gabe lara R05 ; 2+ pitting edema R60.9 and Controlled type 2 diabetes mellitus without complication, without long-term current use of insulin E11.9 [facility] [address] [id number] [address] [place] [address] Feb, [facility] [address] [id number] [address] [place] [id number] Feb, Lumbago with sciatica, unspe cified side M54.40 [facility] [address] [id number] [address] [place] [address] Feb, [facility] [address] [facility] [id number] [address] [place] [id number] Feb, Controlled type 2 diabetes m ellitus without complication, without long-term current use of insulin E11.9 and Morbid obesity E66.01 [facility] [address] [id number] [address] [place] [address] January, Deformity of left foot M21.9 62 [facility] [address] [id number] [address] [place] [address] January, [facility] [address] [id number] [address] [place] [address] January, Lumbago with sciatica, unspe cified side M54.40 [facility] [address] [id number] [address] [place] [address] January, [facility] [address] [facility] [id number] [address] [place] [address] January, Lumbago with sciatica, unspe cified side M54.40 [facility] [address] [id number] [address] [place] [address] January, [facility] [address] [facility] [id number] [address] [place] [address] January, Acute right-sided thoracic b ack pain M54.6 [facility] [address] [facility] [id number] [address] [place] [address] January, Acute right-sided thoracic b ack pain M54.6 [facility] [address] [facility] [id number] [address] [place] [address] January, Chest pain, unspecified type R07.9 ; Morbid obesity E66.01 and Scabies B86 [place] [address] [facility] [id number] [address] [place] [address] Dec, Lumbago with sciatica, unspe cified side M54.40 [facility] [address] [place] [id number] [address] [place] [address] Dec, Toenail fungus B35.1 [facility] [address] [facility] [id number] [address] [place] [address] Dec, Toenail fungus B35.1 [facility] [address] [facility] [id number] [address] [place] [address] Dec, Acute right-sided thoracic b ack pain M54.6 [facility] [address] [facility] [id number] [address] [place] [address] Dec, Lumbago with sciatica, unspe cified side M54.40 [facility] [address] [facility] [id number] [address] [place] [address] Nov, Hammer toe of left foot M20. 42 ; Deformity of left foot M21.962 and Type 2 diabetes mellitus with diabetic neuropathy, without long-term current use of insulin E11.40 [facility] [address] [facility] [id number] [address] [place] [address] Nov, Acute right-sided thoracic b ack pain M54.6 ; Morbid obesity E66.01 and Rt flank pain R10.9 [facility] [address] [place] [id number] [address] [place] [address] Nov, Lumbago with sciatica, unspe cified side M54.40 [facility] [address] [place] [id number] [address] [place] [address] Oct, Lumbago with sciatica, unspe cified side M54.40 [place] [address] [place] [id number] [place] [address] Sep, Lumbago with sciatica, unspe cified side M54.40 [place] [address] [place] [id number] [place] [address] Sep, [place] [address] [place] [id number] [place] [address] Sep, BMI 40.0-44.9, adult Z68.41 ; Lumbago with sciatica, left side M54.42 ; Lumbago with sciatica, right side M54.41 and Other chronic pain G89.29 [place] [address] [address] Aug, Lumbago with sciatica, unspe cified side M54.40 [place] [address] [place] [id number] [place] [address] Aug, Type 2 diabetes mellitus wit h diabetic neuropathy, without long- term current use of insulin E11.40 ; Hammer toe of left foot M20.42 ; Hypertension, benign I10 and Frequent headaches R51 [place] [address] [place] [id number] [address] [place] [address] Jul, Lumbago with sciatica, unspe cified side M54.40 [place] [address] [place] [id number] [address] [place] [address] Jul, [place] [address] [place] [id number] [place] [address] Jul, Essential hypertension I10 a nd Controlled type 2 diabetes mellitus without complication, without long-term current use of insulin E11.9 [place] [id number] [place] [id number] [address] [place] [address] Jul, Essential hypertension I10 ; Controlled type 2 diabetes mellitus without complication, without long-term current use of insulin E11.9 and BMI 40.0-44.9, adult Z68.41 [place] [address] [facility] [id number] [place] [id number] Jul, Dysfunction of left eustachi an tube H69.82 [place] [address] [place] [id number] [address] [place] [address] Jul, Lumbago with sciatica, unspe cified side M54.40 [facility] [address] [place] [id number] [place] [address] [id number] Jun, Dental examination Z01.20 [place] [address] [place] [id number] [address] [place] [address] Jun, Lumbago with sciatica, unspe cified side M54.40 and Encounter for immunization Z23 [place] [address] [address] Jun, Dysfunction of left eustachi an tube H69.[address] [place] [id number] [place] [address] [id number] Jun, Dental examination Z01.20 [facility] [address] [place] [id number] [address] [place] [address] Jun, Other chronic pain G89.29 [facility] [id number] [place] [id number] Jun, Dental examination Z01.20 [facility] [address] [facility] [id number] [address] [place] [address] Jun, [place] [address] [place] [id number] [address] [place] [address] Jun, Bronchitis J40 ; Dysfunction of left eustachian tube H69.82 and BMI 45.0-49.9, adult Z68.42 [facility] [address] [address] Jun, Lumbago with sciatica, unspe cified side M54.40 [facility] [address] [place] [address] May, Type 2 diabetes mellitus wit h diabetic neuropathy, without long- term current use of insulin E11.40 and Hypertension, benign I10 [facility] [address] [address] May, Lumbago with sciatica, unspe cified side M54.40 [facility] [address] [address] Apr, [facility] [address] [address] Apr, Controlled type 2 diabetes m ellitus without complication, without long-term current use of insulin E11.9 ; Insect bite (nonvenomous), right ankle, initial encounter S90.561A ; Local infection of the skin and subcutaneous tissue, unspecified L08.9 ; Acute swimmer''s ear of left side H60.332 and BMI 45.0-49.9, adult Z68.42 [place] [address] [place] [id number] [address] [place] [address] Apr, Lumbago with sciatica, unspe cified side M54.40 [facility] [address] [place] [address] Mar, [place] [address] [place] [address] Mar, Lumbago with sciatica, unspe cified side M54.40 [place] [address] [place] [id number] [address] [place] [address] Feb, Lumbago with sciatica, unspe cified side M54.40 [place] [address] [place] [id number] [address] [place] [address] Feb, BMI 45.0-49.9, adult Z68.42 and Obstructive sleep apnea syndrome G47.33 [place] [address] [place] [id number] [place] [address] January, Lumbar neuritis M54.16 [place] [address] [place] [id number] [place] [address] January, Lumbago with sciatica, unspe cified side M54.40 [place] [address] [place] [id number] [place] [address] Dec, Controlled type 2 diabetes m ellitus without complication, without long-term current use of insulin E11.9 ; Erectile dysfunction due to diseases classified elsewhere N52.1 and Mood disorder F39 [place] [address] [address] Dec, Lumbago with sciatica, unspe cified side M54.40 [place] [address] [place] [id number] [address] [place] [address] Dec, Obstructive sleep apnea synd luis G47.33 [place] [address] [place] [id number] [address] [place] [address] Nov, Lumbago with sciatica, unspe cified side M54.40 ; Hypertension, benign I10 and Mood disorder F39 [place] [address] [place] [id number] [address] [place] [address] Nov, Other chronic pain G89.29 [place] [address] [place] [id number] [address] [place] [address] Nov, Lumbago with sciatica, unspe cified side M54.40 [facility] [address] [id number] [address] [place] [address] [id number] Nov, Dental examination Z01.20 [facility] [address] [id number] [address] [place] [address] Oct, [facility] [address] [id number] [address] [place] [address] Oct, Lumbago with sciatica, unspe cified side M54.40 [facility] [address] [id number] [address] [place] [address] Oct, Lumbago with sciatica, unspe cified side M54.40 [facility] [address] [id number] [address] [place] [address] Oct, [facility] [address] [id number] [address] [place] [address] Oct, [facility] [address] [facility] [id number] [address] [place] [address] [id number] Oct, Dental examination Z01.20 [facility] [address] [facility] [id number] [address] [place] [address] Oct, [facility] [address] [facility] [id number] [address] [place] [address] Oct, Pain in right knee M25.561 [facility] [address] [facility] [id number] [address] [place] [address] Sep, [facility] [address] [facility] [id number] [address] [place] [address] Sep, Other chronic pain G89.29 [facility] [address] [id number] [address] [place] [address] Sep, Lumbago with sciatica, unspe cified side M54.40 [facility] [address] [facility] [id number] [address] [place] [address] Sep, [facility] [address] [facility] [id number] [address] [place] [id number] Sep, Viral URI J06.9 and BMI 45.0 -49.9, adult Z68.42 [facility] [address] [facility] [id number] [address] [place] [address] Aug, Foreign body hand S60.559A a nd BMI 45.0-49.9, adult Z68.42 [facility] [address] [place] [id number] [address] [place] [address] Aug, [facility] [address] [place] [id number] [address] [place] [address] Aug, Lumbago with sciatica, unspe cified side M54.40 [place] [address] [place] [id number] [place] [address] Aug, Vertigo R42 ; Dysfunction of both eustachian tubes H69.83 ; Low back pain M54.5 and Other chronic pain G89.29 [facility] [address] [place] [id number] [address] [place] [address] Aug, Dizziness R42 and Acute bila teral otitis media H66.93 [place] [address] [place] [id number] [address] [place] [address] Aug, Lumbago with sciatica, unspe cified side M54.40 [facility] [address] [place] [id number] [address] [place] [address] [id number] Jul, Dental examination Z01.20 [facility] [address] [facility] [id number] [address] [place] [address] Jul, [place] [address] [place] [id number] [address] [place] [address] Jul, [place] [address] [place] [id number] [address] [place] [address] Jul, Dysfunction of both eustachi an tubes H69.83 [facility] [address] [place] [id number] [address] [place] [address] Jul, Controlled type 2 diabetes m taraitus without complication, without long-term current use of insulin E11.9 [facility] [address] [id number] [address] [place] [address] Jul, Controlled type 2 diabetes m ellitus without complication, without long-term current use of insulin E11.9 [facility] [address] [id number] [address] [place] [address] Jul, Dizziness R42 and BMI 40.0-4 4.9, adult Z68.41 [facility] [address] [id number] [address] [place] [address] Jul, Controlled type 2 diabetes m ellitus without complication, without long-term current use of insulin E11.9 [facility] [address] [id number] [address] [place] [address] Jul, Lumbago with sciatica, unspe cified side M54.40 [facility] [id number] [place] [address] [id number] Jul, Dental examination Z01.20 [facility] [address] [id number] [address] [place] [address] Jun, [facility] [address] [id number] [place] [address] [id number] Jun, Dental examination Z01.20 [facility] [address] [id number] [address] [place] [id number] Jun, Controlled type 2 diabetes m ellitus without complication, without long-term current use of insulin E11.9 [facility] [address] [id number] [address] [place] [id number] Jun, Lumbago with sciatica, unspe cified side M54.40 [facility] [address] [id number] [address] [place] [address] [id number] May, Dental examination Z01.20 [facility] [address] [id number] [address] [place] [id number] May, Controlled type 2 diabetes m ellitus without complication, without long-term current use of insulin E11.9 [facility] [address] [id number] [address] [place] [address] [id number] 19 May, 2017 Dental examination Z01.20 [facility] [address] [facility] [id number] [address] [place] [id number] 18 May, 2017 Bronchitis J40 ; Dry mouth R 68.2 ; Non morbid obesity E66.9 and Controlled type 2 diabetes mellitus without complication, without long-term current use of insulin E11.9 [facility] [address] [id number] [address] [place] [id number] 16 May, 2017 Encounter for immunization Z 23 [facility] [address] [facility] [id number] [place] [phone] 07 May, 2017 Lumbago with sciatica, unspe cified side M54.40 [facility] [address] [facility] [id number] [address] [place] [id number] 05 May, 2017 [facility] [address] [facility] [id number] [place] [address] [id number] Apr, Dental examination Z01.20 [facility] [address] [facility] [id number] [address] [place] [id number] Apr, Lumbago with sciatica, unspe cified side M54.40 [facility] [address] [id number] [address] [place] [address] Mar, Lumbago with sciatica, left side M54.42 [facility] [address] [id number] [address] [place] [id number] Mar, [facility] [address] [id number] [address] [place] [id number] Mar, Lumbar neuritis M54.16 [facility] [address] [facility] [id number] [address] [place] [id number] Mar, [facility] [address] [place] [id number] [place] [address] [id number] Mar, Dental examination Z01.20 [place] [address] [id number] [address] [place] [phone] Mar, MELE (obstructive sleep apnea ) G47.33 ; Neuropathy involving both lower extremities G57.93 and Frequent headaches R51 [place] [address] [id number] [place] [phone] Mar, Lumbago with sciatica, unspe cified side M54.40 [place] [address] [id number] [address] [place] [phone] Feb, Lumbago with sciatica, unspe cified side M54.40 and Controlled type 2 diabetes mellitus without complication, without long-term current use of insulin E11.9 [place] [address] [id number] [address] [place] [phone] January, Hypertension, benign I10 and Bilateral low back pain with sciatica, sciatica laterality unspecified M54.40 [place] [address] [id number] [address] [place] [phone] January, Hypertension, benign I10 ; L umbago with sciatica, unspecified side M54.40 ; Other chronic pain G89.29 and Controlled type 2 diabetes mellitus without complication, without long-term current use of insulin E11.9 [place] [address] [id number] [address] [place] [phone] January, Lumbar neuritis M54.16 [place] [address] [id number] [address] [place] [id number] January, [place] [address] [id number] [address] [place] [phone] Dec, Lumbago with sciatica, right side M54.41 and Lumbar neuritis M54.16 [place] [address] [id number] [address] [place] [address] Dec, Lumbar neuritis M54.16 [place] [address] [id number] [address] [place] [address] Dec, Lumbar neuritis M54.16 [place] [address] [facility] [id number] [address] [place] [address] Nov, Lumbar neuritis M54.16 ; Lum bago with sciatica, right side M54.41 ; Controlled type 2 diabetes mellitus without complication, without long-term current use of insulin E11.9 and Rash and nonspecific skin eruption R21 [place] [address] [place] [id number] [address] [place] [address] Nov, Lumbar neuritis M54.16 and P oison miroslava L23.7 [place] [address] [place] [id number] [place] [address] Oct, Lumbar neuritis M54.16 ; Cou ghing R05 and Mood disorder F39 [place] [address] [place] [id number] [address] [place] [address] Sep, Lumbago with sciatica, right side M54.41 [place] [address] [place] [id number] [address] [place] [address] Sep, Adjustment disorder with dis turbance of emotion F43.29 and Pain management R52 [place] [address] [place] [id number] [address] [place] [address] Sep, [place] [address] [place] [id number] [address] [place] [address] Sep, [place] [address] [place] [id number] [address] [place] [address] Sep, Controlled type 2 diabetes evens reyna without complication, without long-term current use of insulin E11.9 and Lumbago with sciatica, unspecified side M54.40 [place] [address] [place] [id number] [address] [place] [address] Aug, Controlled type 2 diabetes evens reyna without complication, without long-term current use of insulin E11.9 ; Pain in right knee M25.561 ; Pain in left knee M25.562 ; Other chronic pain G89.29 ; Lumbago with sciatica, right side M54.41 ; Neck pain M54.2 and Encounter for immunization Z23 [facility] [address] [id number] [address] [place] [address] Jul, [facility] [address] [id number] [address] [place] [address] Jul, Controlled type 2 diabetes m maribell without complication, without long-term current use of insulin E11.9 [facility] [address] [id number] [address] [place] [id number] 17 Jul, 2016 [facility] [address] [id number] [address] [place] [address] Jul, [facility] [address] [id number] [address] [place] [address] Jul, Lumbago with sciatica, left side M54.42 ; Lumbago with sciatica, right side M54.41 and Other chronic pain G89.29 [facility] [address] [id number] [address] [place] [address] Jul, [facility] [address] [id number] [address] [place] [address] Jul, [facility] [address] [id number] [address] [place] [address] Jun, [facility] [address] [id number] [address] [place] [address] Jun, Lumbago with sciatica, right side M54.41 and Other chronic pain G89.29 [facility] [address] [id number] [address] [place] [address] Jun, Cervicalgia M54.2 ; Lumbago with sciatica, unspecified side M54.40 and Other chronic pain G89.29 [facility] [address] [id number] [address] [place] [id number] 15 May, 2016 Pain in right knee M25.561 ; Pain in left knee M25.562 and Other chronic pain G89.29 [facility] [address] [id number] [address] [place] [address] May, [facility] [address] [id number] [address] [place] [address] Apr, Other chronic pain G89.29 an d Pain in right knee M25.561 [facility] [address] [id number] [address] [place] [address] Apr, Pain in right knee M25.561 [facility] [address] [id number] [address] [place] [address] Mar, [place] [id number] [id number] [address] [place] [address] Mar, Mood disorder F39 and Contro lled type 2 diabetes mellitus without complication, without long-term current use of insulin E11.9 [facility] [address] [id number] [address] [place] [address] Mar, Pain in right knee M25.561 ; Pain in left knee M25.562 ; Other chronic pain G89.29 ; Obstructive sleep apnea syndrome G47.33 ; Mood disorder F39 and Controlled type 2 diabetes mellitus without complication, without long- term current use of insulin E11.9 [facility] [address] [id number] [address] [place] [address] Mar, [facility] [address] [id number] [address] [place] [id number] Feb, Dental examination Z01.20 [facility] [address] [id number] [address] [place] [address] Feb, [facility] [address] [id number] [address] [place] [address] Feb, Osteoarthritis of right knee , unspecified osteoarthritis type M17.9 [facility] [address] [id number] [address] [place] [id number] January, [facility] [address] [id number] [address] [place] [id number] January, Dental examination Z01.20 [facility] [address] [id number] [address] [place] [address] January, [facility] [address] [id number] [address] [place] [address] [id number] January, Dental examination Z01.20 an d Caries K02.9 [facility] [address] [id number] [address] [place] [address] Dec, Encounter for other preproce dural examination Z01.818 [facility] [address] [id number] [address] [place] [address] Dec, [facility] [address] [id number] [address] [place] [address] Dec, Knee pain M25.569 [facility] [address] [id number] [address] [place] [address] Dec, Pain in right knee M25.561 [facility] [address] [id number] [address] [place] [id number] Dec, [facility] [address] [id number] [address] [place] [id number] Dec, [facility] [address] [id number] [address] [place] [address] Dec, Encounter for immunization Z 23 [facility] [address] [id number] [address] [place] [id number] Dec, [facility] [address] [id number] [address] [place] [id number] Dec, [facility] [address] [id number] [address] [place] [address] Nov, [facility] [address] [id number] [address] [place] [id number] 02 Mar, 2016 Hypertension, benign I10 ; C ervicalgia M54.2 ; Pain in right knee M25.561 and Pain in left knee M25.562 [place] [id number] [facility] [id number] [address] [place] [address] Oct, [place] [address] [facility] [id number] [address] [place] [id number] Oct, [place] [address] [place] [id number] [place] [address] Oct, Osteoarthritis of both knees M17.0 [place] [address] [facility] [id number] [address] [place] [address] Oct, [place] [address] [place] [id number] [place] [address] Oct, Low back pain M54.5 [place] [address] [place] [id number] [place] [address] Oct, Low back pain M54.5 ; Sciati ca, unspecified side M54.30 ; Pain in right knee M25.561 ; Pain in left knee M25.562 ; Pain in right shoulder M25.511 and Pain in left shoulder M25.512 [place] [address] [place] [id number] [address] [place] [address] Oct, [place] [address] [place] [id number] [address] [place] [address] Sep, Pain in right hip M25.551 [place] [address] [place] [id number] [address] [place] [address] Sep, Acute upper respiratory infe ction, unspecified J06.9 [place] [address] [place] [id number] [address] [place] [address] Aug, Acute upper respiratory infe ction, unspecified J06.9 and Other viral agents as the cause of diseases classified elsewhere B97.89 [place] [address] [place] [id number] [address] [place] [address] Jul, Arthritis M19.90 [facility] [address] [id number] [address] [place] [address] Jun, Arthritis M19.90 ; Pain in r ight hip M25.551 ; Pain in left hip M25.552 ; Bilateral low back pain with sciatica, sciatica laterality unspecified M54.40 ; Neck pain M54.2 ; Upper back pain M54.9 and Knee pain, unspecified laterality M25.569 [facility] [address] [id number] [address] [place] [address] May, Osteoarthritis of both knees 715.96 [place] [address] [id number] [address] [place] [address] May, Rash 782.1 [place] [address] [facility] [id number] [address] [place] [address] Apr, Lumbar strain 847.2 [place] [address] [facility] [id number] [address] [place] [address] Apr, Rash 782.1 [facility] [address] [facility] [id number] [address] [place] [address] Mar, Rash 782.1 [facility] [address] [facility] [id number] [address] [place] [address] Feb, Rash 782.1 ; Hemorrhoids 455 .6 and Constipation 564.00 [place] [address] [id number] [address] [place] [address] Feb, Osteoarthritis of both knees 715.96 [facility] [address] [id number] [address] [place] [address] January, [facility] [address] [facility] [id number] [address] [place] [address] Dec, [place] [address] [facility] [id number] [address] [place] [address] Dec, [facility] [address] [id number] [address] [place] [address], [place] [address] 13 Dec, 2014 [facility] [address] [id number] [address] [place] [address], [place] [address] 18 Nov, 2014 [facility] [address] [id number] [address] [place] [address], [place] [address] 18 Nov, 2014 [facility] [address] [id number] [address] [place] [address], [place] [address] Nov, [facility] [address] [id number] [address] [place] [address], [place] [address] Nov, [facility] [address] [id number] [address] [place] [address], [place] [address] Nov, [facility] [address] [id number] [address] [place] [address], [place] [address] Nov, [facility] [address] [id number] [address] [place] [address], [place] [address] Oct, [facility] [address] [id number] [address] [place] [address], [place] [address] Oct, [facility] [address] [id number] [address] [place] [address], [place] [address] Oct, [facility] [address] [id number] [address] [place] [address], [place] [address] Oct, [facility] [address] [id number] [address] [place] [id number] Oct, [facility] [address] [id number] [address] [place] [address], [place] [address] Oct, [facility] [address] [id number] [address] [place] [address], [place] [address] Oct, [facility] [address] [id number] [address] [place] [id number] Oct, [facility] [address] [id number] [address] [place] [id number] 12 Oct, 2014 [facility] [address] [id number] [address] [place] [address], [place] [address] Oct, [facility] [address] [id number] [address] [place] [address], [place] [address] Oct, [facility] [address] [id number] [address] [place] [address], [place] [address] Sep, [facility] [address] [id number] [address] [place] [address], [place] [address] Sep, [facility] [address] [id number] [address] [place] [address], [place] [address] Sep, [facility] [address] [id number] [address] [place] [address], [place] [address] Sep, [facility] [address] [id number] [address] [place] [address], [place] [address] Sep, [facility] [address] [id number] [address] [place] [address], [place] [address] Sep, [facility] [address] [id number] [address] [place] [address], [place] [address] Aug, [facility] [address] [id number] [address] [place] [address], [place] [address] Aug, [facility] [address] [id number] [address] [place] [address], [place] [address] Aug, [facility] [address] [id number] [address] [place] [address], [place] [address] Aug, [facility] [address] [id number] [address] [place] [address], [place] [address] Aug, [facility] [address] [id number] [address] [place] [address], [place] [address] Aug, [facility] [address] [id number] [address] [place] [address], [place] [address] Aug, [facility] [address] [id number] [address] [place] [address], [place] [address] Aug, [facility] [address] [id number] [address] [place] [address], [place] [address] Aug, [facility] [address] [id number] [address] [place] [address], [place] [address] Aug, [facility] [address] [id number] [address] [place] [address], [place] [address] Jul, [facility] [address] [id number] [address] [place] [address], [place] [address] Jul, [facility] [address] [id number] [address] [place] [address], [place] [address] Jul, [facility] [address] [id number] [address] [place] [address], [place] [address] Jul, [facility] [address] [id number] [address] [place] [address], [place] [address] Jun, [facility] [address] [id number] [address] [place] [address], [place] [address] Jun, [facility] [address] [id number] [address] [place] [address], [place] [address] Jun, [facility] [address] [id number] [address] [place] [address], [place] [address] Jun, [facility] [address] [id number] [address] [place] [address], [place] [address] Jun, [facility] [address] [id number] [address] [place] [address], [place] [address] Jun, [facility] [address] [id number] [address] [place] [address], [place] [address] Jun, [facility] [address] [id number] [address] [place] [address], [place] [address] Jun, [facility] [address] [id number] [address] [place] [address], [place] [address] 24 May, 2013 [facility] [address] [id number] [address] [place] [address], [place] [address] 24 May, 2014 [facility] [address] [id number] [address] [place] [address], [place] [address] May, [facility] [address] [id number] [address] [place] [address], [place] [address] 19 May, 2014 [facility] [address] [id number] [address] [place] [address], [place] [address] 15 May, 2014 [facility] [address] [id number] [address] [place] [address], [place] [address] 15 May, 2014 [facility] [address] [id number] [address] [place] [address], [place] [address] 15 May, 2014 [facility] [address] [id number] [address] [place] [address], [place] [address] 15 May, 2014 [facility] [address] [id number] [address] [place] [address], [place] [address] Apr, [facility] [address] [id number] [address] [place] [address], [place] [address] Apr, [facility] [address] [id number] [address] [place] [address], [place] [address] Apr, [facility] [address] [id number] [address] [place] [address], [place] [address] Apr, [facility] [address] [id number] [address] [place] [address], [place] [address] Apr, [facility] [address] [id number] [address] [place] [address], [place] [address] Apr, [facility] [address] [id number] [address] [place] [address], [place] [address] Apr, [facility] [address] [id number] [address] [place] [address], [place] [address] Apr, [facility] [address] [id number] [facility] [place] [address] Apr, [facility] [address] [id number] [address] [place] [address], [place] [address] Apr, [facility] [address] [id number] [address] [place] [address], [place] [address] Apr, [facility] [address] [id number] [address] [place] [address], [place] [address] Apr, [facility] [address] [id number] [address] [place] [address], [place] [address] Mar, [facility] [address] [id number] [address] [place] [address], [place] [address] Mar, [facility] [address] [id number] [address] [place] [address], [place] [address] Mar, [facility] [address] [id number] [address] [place] [address], [place] [address] Mar, [facility] [address] [id number] [address] [place] [address], [place] [address] Mar, [facility] [address] [id number] [address] [place] [address], [place] [address] Mar, [facility] [address] [id number] [address] [place] [address], [place] [address] Feb, [facility] [address] [id number] [address] [place] [address], [place] [address] Feb, [facility] [address] [id number] [address] [place] [address], [place] [address] Feb, [facility] [address] [id number] [address] [place] [address], [place] [address] Feb, [facility] [address] [id number] [address] [place] [address], [place] [address] Feb, [facility] [address] [id number] [address] [place] [address], [place] [address] Feb, [facility] [address] [id number] [address] [place] [address], [place] [address] Feb, [facility] [address] [id number] [address] [place] [address], [place] [address] Feb, [facility] [address] [id number] [address] [place] [address], [place] [address] Feb, [facility] [address] [id number] [address] [place] [address], [place] [address] Feb, [facility] [address] [id number] [address] [place] [address], [place] [address] Feb, [facility] [address] [id number] [address] [place] [address], [place] [address] Feb, [facility] [address] [id number] [address] [place] [address], [place] [address] Feb, [facility] [address] [id number] [address] [place] [address], [place] [address] Feb, [facility] [address] [id number] [address] [place] [address], [place] [address] January, [facility] [address] [id number] [address] [place] [address], [place] [address] January, [facility] [address] [id number] [address] [place] [address], [place] [address] January, [facility] [address] [id number] [address] [place] [address], [place] [address] January, [facility] [address] [id number] [address] [place] [address], [place] [address] January, [facility] [address] [id number] [address] [place] [address], [place] [address] January, [facility] [address] [id number] [address] [place] [address], [place] [address] Dec, [facility] [address] [id number] [address] [place] [address], [place] [address] Dec, [facility] [address] [id number] [facility] [place] [address] Dec, [facility] [address] [id number] [address] [place] [address], [place] [address] Dec, [facility] [address] [id number] [address] [place] [address], [place] [address] Dec, [facility] [address] [id number] [address] [place] [address], [place] [id number] Dec, [facility] [address] [id number] [address] [place] [address], [place] [address] Dec, [facility] [address] [id number] [address] [place] [address], [place] [id number] Dec, [facility] [address] [id number] [address] [place] [address], [place] [address] Nov, [facility] [address] [id number] [address] [place] [address], [place] [address] Nov, [facility] [address] [id number] [address] [place] [address], [place] [address] Nov, [facility] [address] [id number] [address] [place] [address], [place] [address] Nov, [facility] [address] [id number] [address] [place] [address], [place] [address] Nov, [facility] [address] [id number] [address] [place] [address], [place] [address] Nov, [facility] [address] [id number] [address] [place] [address], [place] [address] Nov, [facility] [address] [id number] [address] [place] [address], [place] [address] Nov, [facility] [address] [id number] [address] [place] [address], [place] [address] Oct, [facility] [address] [id number] [address] [place] [address], [place] [address] Oct, [facility] [address] [id number] [address] [place] [address], [place] [address] Oct, [facility] [address] [id number] [address] [place] [address], [place] [address] Oct, [facility] [address] [id number] [address] [place] [address], [place] [address] Oct, [facility] [address] [id number] [address] [place] [address], [place] [address] Oct, [facility] [address] [id number] [address] [place] [address], [place] [address] Oct, [facility] [address] [id number] [address] [place] [address], [place] [address] Oct, [facility] [address] [id number] [address] [place] [address], [place] [address] Oct, [facility] [address] [id number] [address] [place] [address], [place] [address] Oct, [facility] [address] [id number] [address] [place] [address], [place] [address] Sep, [facility] [address] [id number] [address] [place] [address], [place] [address] Sep, [facility] [address] [id number] [address] [place] [address], [place] [id number] Sep, [facility] [address] [id number] [address] [place] [address], [place] [address] Sep, [facility] [facility] [address] [id number] [address] [place] [address], [place] [address] Sep, [facility] [address] [id number] [address] [place] [address], [place] [address] Sep, [facility] [address] [id number] [address] [place] [address], [place] [address] Aug, [facility] [address] [id number] [address] [place] [address], [place] [address] Aug, [facility] [address] [id number] [address] [place] [address], [place] [address] Aug, [facility] [address] [id number] [address] [place] [address], [place] [address] Aug, [facility] [address] [id number] [address] [place] [address], [place] [address] Aug, [facility] [address] [id number] [address] [place] [address], [place] [address] Aug, [facility] [address] [id number] [address] [place] [address], [place] [address] Aug, [facility] [address] [id number] [address] [place] [address], [place] [address] Aug, [facility] [address] [id number] [address] [place] [address], [place] [address] Jul, [facility] [address] [id number] [address] [place] [address], [place] [address] Jul, [facility] [address] [id number] [address] [place] [address], [place] [address] Jul, [facility] [address] [id number] [address] [place] [address], [place] [address] Jul, [facility] [address] [id number] [address] [place] [id number] Jul, [facility] [address] [id number] [address] [place] [address], [place] [address] Jul, [facility] [address] [id number] [address] [place] [address], [place] [address] Jun, [facility] [address] [id number] [address] [place] [address] Jun, [facility] [address] [id number] [address] [place] [address], [place] [address] Jun, [facility] [address] [id number] [address] [place] [address], [place] [address] 24 May, 2013 [facility] [address] [id number] [address] [place] [address], [place] [address] May, [facility] [address] [id number] [address] [place] [address], [place] [address] May, [facility] [address] [id number] [address] [place] [address], [place] [address] Apr, [facility] [address] [id number] [address] [place] [address], [place] [address] Apr, [facility] [address] [id number] [address] [place] [address], [place] [address] Apr, [facility] [address] [id number] [address] [place] [address], [place] [address] Apr, [facility] [address] [id number] [address] [place] [address], [place] [address] Mar, [facility] [address] [id number] [address] [place] [address], [place] [address] Mar, [facility] [address] [id number] [address] [place] [address], [place] [address] Mar, [facility] [address] [id number] [address] [place] [address], [place] [address] Mar, [facility] [address] [id number] [address] [place] [address], [place] [address] Feb, [facility] [address] [id number] [address] [place] [address], [place] [address] Feb, [facility] [address] [id number] [address] [place] [address], [place] [address] Feb, [facility] [address] [id number] [address] [place] [address], [place] [address] Feb, [facility] [address] [id number] [address] [place] [address], [place] [address] January, [facility] [address] [id number] [address] [place] [address], [place] [address] January, [facility] [address] [id number] [address] [place] [address], [place] [address] January, [facility] [address] [id number] [address] [place] [address], [place] [address] Nov, [facility] [address] [id number] [address] [place] [address], [place] [address] Nov, [facility] [address] [id number] [address] [place] [address], [place] [address] Oct, [facility] [address] [id number] [address] [place] [address], [place] [address] Oct, [facility] [address] [id number] [address] [place] [address], [place] [address] Oct, [facility] [address] [id number] [address] [place] [address], [place] [address] Oct, [facility] [address] [id number] [address] [place] [address], [place] [address] Sep, [facility] [address] [id number] [address] [place] [address], [place] [address] Sep, [facility] [address] [id number] [address] [place] [address], [place] [address] Sep, [facility] [address] [id number] [address] [place] [address], [place] [address] Aug, [facility] [address] [id number] [address] [place] [address], [place] [address] Aug, [facility] [address] [id number] [address] [place] [address], [place] [address] Aug, [facility] [address] [id number] [address] [place] [address], [place] [address] Aug, [facility] [address] [id number] [address] [place] [address], [place] [address] Aug, [facility] [address] [id number] [address] [place] [address], [place] [address] Aug, [facility] [address] [id number] [address] [place] [address], [place] [address] Jul, [facility] [address] [id number] [address] [place] [address], [place] [address] Jul, [facility] [address] [id number] [address] [place] [address], [place] [address] Jun, [facility] [address] [id number] [address] [place] [address], [place] [address] Jun, [facility] [address] [id number] [address] [place] [address], [place] [address] Jun, [facility] [address] [id number] [address] [place] [address], [place] [address] Apr, [facility] [address] [id number] [address] [place] [address], [place] [address] Apr, [facility] [address] [id number] [address] [place] [address], [place] [address] Mar, [facility] [address] [id number] [address] [place] [address], [place] [address] Mar, [facility] [address] [id number] [address] [place] [address], [place] [address] Mar, [facility] [address] [id number] [address] [place] [address], [place] [address] Mar, [facility] [address] [id number] [address] [place] [address], [place] [address] Feb, [facility] [address] [id number] [address] [place] [address], [place] [address] Feb, [facility] [address] [id number] [address] [place] [address], [place] [address] Feb, [facility] [address] [id number] [address] [place] [address], [place] [address] January, [facility] [address] [id number] [address] [place] [address], [place] [address] January, [facility] [address] [id number] [address] [place] [address], [place] [address] January, [facility] [address] [id number] [address] [place] [address], [place] [address] January, [facility] [address] [id number] [address] [place] [address], [place] [address] Dec, [facility] [address] [id number] [address] [place] [address], [place] [address] Dec, [facility] [address] [id number] [address] [place] [address], [place] [address] Nov, [facility] [address] [id number] [address] [place] [address], [place] [address] Nov, [facility] [address] [id number] [address] [place] [address], [place] [address] Oct, [facility] [address] [id number] [address] [place] [address], [place] [address] Oct, [facility] [address] [id number] [address] [place] [address], [place] [address] Sep, [facility] [address] [id number] [address] [place] [address], [place] [address] Sep, [facility] [address] [id number] [address] [place] [address], [place] [address] Sep, [facility] [address] [id number] [address] [place] [address], [place] [address] Sep, [facility] [address] [id number] [address] [place] [address], [place] [address] 16 Aug, 2011 [facility] [address] [id number] [address] [place] [address], [place] [address] 16 Aug, 2011 [facility] [address] [id number] [address] [place] [address], [place] [address] 09 Aug, 2011 [facility] [address] [id number] [address] [place] [address], [place] [address] 04 Jul, 2011 [facility] [address] [id number] [address] [place] [address], [place] [address] 22 Aug, 2010 [facility] [address] [id number] [address] [place] [address], [place] [address] Aug, [facility] [address] [id number] [address] [place] [address], [place] [address] Aug, [facility] [address] [id number] [address] [place] [address], [place] [address] Aug, [facility] [address] [id number] [address] [place] [address], [place] [address] Jul, [facility] [address] [id number] [address] [place] [address], [place] [address] Jul, [facility] [address] [id number] [address] [place] [address], [place] [address] Jul, [facility] [address] [id number] [address] [place] [address], [place] [address] Jun, [facility] [address] [id number] [address] [place] [address] Jun, [facility] [address] [id number] [address] [place] [id number] Jun, [facility] [address] [id number] [address] [place] [address] Apr, [facility] [address] [id number] [address] [place] [id number] Mar, IMMUNIZATIONS No Known Immunizations SOCIAL HISTORY [...]
--- OUTSIDE RECORDS SUMMARY | 2020-03-18 15:04 | XMS REPORT ---
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 Name Role Phone REYNA WAYNE Unavailable PROBLEMS Type Condition ICD9-CM Code CWY89-FB Code Onset Dates Condition S tatus SNOMED Code Problem Hypertension, benign I10 Active 60966079 Problem Other chronic pain G89.29 Active 8 3159760 Problem Lumbago with sciatica, unspecified side M54.40 Active 407143377 Problem Controlled type 2 diabetes m ellitus without complication, without long- term current use of insulin E11.9 Active 951878812 Problem Lumbago with sciatica, right side M54.41 Active 567754782 Problem Adjustment disorder with disturbance of emotion F4 3.29 Active 90519016 Problem MELE (obstructive sleep apnea) G47.33 Active 09263181 Problem Non morbid obesity E66.9 Active 4 05681476 Problem Hammer toe of left foot M20.42 Active 930957579 Problem Mood disorder F39 Active 052310 05 Problem Deformity of left foot M21.962 Active 256902312 Problem Lumbago with sciatica, left side M54.42 Active 811248869 Problem Erectile dysfunction due to diseases classified elsewhere N52.1 Active 259778890 Problem Obstructive sleep apnea syndrome G47.33 Active 13793195 Problem Type 2 diabetes mellitus wit h diabetic neuropathy, without long-term current use of insulin E11.40 Active 41918 006 Problem Essential hypertension I10 Active 44649519 ALLERGIES No Information ENCOUNTERS Encounter Location Date Diagnosis [facility] [address] [facility] [id number] [address] [place] [id number] 13 Dec, 2019 Acute diffuse otitis externa of left ear H60.312 [facility] [address] [facility] [id number] [address] [place] [id number] 18 Nov, 2019 Viral URI J06.9 and Flu-like symptoms R68.89 [place] [address] [facility] [id number] [address] [place] [id number] 09 Nov, 2019 Type 2 diabetes mellitus wit h diabetic neuropathy, without long- term current use of insulin E11.40 ; Family history of prostate cancer Z80.42 and Prostate cancer screening Z12.5 [place] [address] [place] [id number] [address] [place] [phone] Nov, [place] [address] [place] [id number] [address] [place] [phone] Sep, [place] [address] [place] [id number] [address] [place] [phone] Aug, [place] [address] [place] [id number] [place] [phone] Jul, Lumbago with sciatica, unspe cified side M54.40 [place] [address] [place] [id number] [address] [place] [id number] Jun, Lumbago with sciatica, unspe cified side M54.40 [place] [address] [place] [id number] [address] [place] [phone] Jun, URI, acute J06.9 [place] [address] [place] [id number] [address] [place] [id number] May, Lumbago with sciatica, unspe cified side M54.40 [place] [address] [facility] [id number] [address] [place] [phone] May, [place] [address] [place] [id number] [address] [place] [id number] 12 May, 2019 Type 2 diabetes mellitus wit h diabetic neuropathy, without long- term current use of insulin E11.40 and Hammer toe of left foot M20.42 [place] [address] [facility] [id number] [address] [place] [phone] May, [place] [address] [place] [id number] [address] [place] [id number] May, [facility] [address] [place] [id number] [address] [place] [phone] May, [facility] [address] [place] [id number] [address] [place] [id number] Apr, Lumbago with sciatica, unspe cified side M54.40 [facility] [address] [place] [id number] [address] [place] [phone] Apr, [facility] [address] [place] [id number] [address] [place] [id number] Apr, [address] [id number] [address] Apr, Hammer toe of left foot M20. 42 ; Chest pain R07.9 ; Preoperative examination Z01.818 and Morbid obesity E66.01 [place] [address] [place] [id number] [address] [place] [id number] Apr, Morbid obesity E66.01 ; Bron chitis J40 and High risk medications (not anticoagulants) long-term use Z79.899 [place] [address] [place] [id number] [address] [place] [phone] Apr, Lumbago with sciatica, unspe cified side M54.40 [facility] [address] [place] [id number] [address] [place] [phone] Apr, [facility] [address] [place] [id number] [address] [place] [phone] Mar, Lumbar neuritis M54.16 and M orbid obesity E66.01 [facility] [address] [place] [id number] [address] [place] [phone] Mar, [facility] [address] [place] [id number] [address] [place] [phone] Mar, [facility] [address] [place] [id number] [address] [place] [phone] Mar, Lumbago with sciatica, unspe cified side M54.40 [facility] [address] [id number] [address] [place] [id number] Mar, Morbid obesity E66.01 ; Gabe lara R05 ; 2+ pitting edema R60.9 and Controlled type 2 diabetes mellitus without complication, without long-term current use of insulin E11.9 [facility] [address] [id number] [address] [place] [phone] Feb, [facility] [address] [id number] [address] [place] [phone] Feb, Lumbago with sciatica, unspe cified side M54.40 [facility] [address] [id number] [address] [place] [phone] Feb, [facility] [address] [id number] [address] [place] [phone] Feb, Controlled type 2 diabetes m ellitus without complication, without long-term current use of insulin E11.9 and Morbid obesity E66.01 [facility] [address] [id number] [address] [place] [id number] January, Deformity of left foot M21.9 62 [facility] [address] [id number] [address] [place] [id number] January, [facility] [address] [id number] [address] [place] [phone] January, Lumbago with sciatica, unspe cified side M54.40 [facility] [address] [id number] [address] [place] [phone] January, [facility] [address] [id number] [address] [place] [id number] January, Lumbago with sciatica, unspe cified side M54.40 [facility] [address] [id number] [address] [place] [phone] January, [facility] [address] [facility] [id number] [address] [place] [phone] January, Acute right-sided thoracic b ack pain M54.6 [facility] [address] [place] [id number] [address] [place] [id number] January, Acute right-sided thoracic b ack pain M54.6 [facility] [address] [id number] January, Chest pain, unspecified type R07.9 ; Morbid obesity E66.01 and Scabies B86 [facility] [address] [place] [id number] [address] [place] [phone] Dec, Lumbago with sciatica, unspe cified side M54.40 [place] [address] [id number] Dec, Toenail fungus B35.1 [facility] [address] [place] [id number] [address] [place] [phone] Dec, Toenail fungus B35.1 [facility] [address] [id number] Dec, Acute right-sided thoracic b ack pain M54.6 [place] [address] [place] [id number] [address] [place] [id number] Dec, Lumbago with sciatica, unspe cified side M54.40 [facility] [address] [place] [id number] [address] [place] [id number] Nov, Hammer toe of left foot M20. 42 ; Deformity of left foot M21.962 and Type 2 diabetes mellitus with diabetic neuropathy, without long-term current use of insulin E11.40 [facility] [address] [facility] [id number] [address] [place] [phone] Nov, Acute right-sided thoracic b ack pain M54.6 ; Morbid obesity E66.01 and Rt flank pain R10.9 [place] [address] [facility] [id number] [address] [place] [phone] Nov, Lumbago with sciatica, unspe cified side M54.40 [place] [address] [place] [id number] [address] [place] [phone] Oct, Lumbago with sciatica, unspe cified side M54.40 [place] [address] [place] [id number] [place] [id number] Sep, Lumbago with sciatica, unspe cified side M54.40 [place] [address] [place] [id number] [address] [place] [id number] Sep, [place] [address] [place] [id number] [place] [phone] Sep, BMI 40.0-44.9, adult Z68.41 ; Lumbago with sciatica, left side M54.42 ; Lumbago with sciatica, right side M54.41 and Other chronic pain G89.29 [place] [address] [place] [id number] [address] [place] [phone] Aug, Lumbago with sciatica, unspe cified side M54.40 [place] [address] [place] [id number] [address] [place] [id number] Aug, Type 2 diabetes mellitus wit h diabetic neuropathy, without long- term current use of insulin E11.40 ; Hammer toe of left foot M20.42 ; Hypertension, benign I10 and Frequent headaches R51 [place] [address] [place] [id number] [address] [place] [id number] Jul, Lumbago with sciatica, unspe cified side M54.40 [place] [address] [place] [id number] [address] [place] [phone] Jul, [place] [address] [place] [id number] [address] [place] [phone] Jul, Essential hypertension I10 a nd Controlled type 2 diabetes mellitus without complication, without long-term current use of insulin E11.9 [facility] [address] [facility] [id number] [address] [place] [phone] Jul, Essential hypertension I10 ; Controlled type 2 diabetes mellitus without complication, without long-term current use of insulin E11.9 and BMI 40.0-44.9, adult Z68.41 [facility] [address] [facility] [id number] [address] [place] [phone] Jul, Dysfunction of left eustachi an tube H69.82 [facility] [address] [id number] [address] [place] [phone] Jul, Lumbago with sciatica, unspe cified side M54.40 [facility] [address] [id number] [address] [place] [id number] Jun, Dental examination Z01.20 [facility] [address] [facility] [id number] [address] [place] [id number] Jun, Lumbago with sciatica, unspe cified side M54.40 and Encounter for immunization Z23 [facility] [address] [facility] [id number] [address] [place] [phone] Jun, Dysfunction of left eustachi an tube H69.82 [place] [id number] [facility] [id number] [place] [id number] Jun, Dental examination Z01.20 [facility] [address] [id number] [address] [place] [phone] Jun, Other chronic pain G89.29 [facility] [address] [id number] [address] [place] [id number] Jun, Dental examination Z01.20 [facility] [address] [id number] [address] [place] [phone] Jun, [facility] [address] [id number] [address] [place] [phone] Jun, Bronchitis J40 ; Dysfunction of left eustachian tube H69.82 and BMI 45.0-49.9, adult Z68.42 [facility] [address] [place] [id number] [address] [place] [id number] Jun, Lumbago with sciatica, unspe cified side M54.40 [facility] [address] [place] [id number] [address] [place] [phone] May, Type 2 diabetes mellitus wit h diabetic neuropathy, without long- term current use of insulin E11.40 and Hypertension, benign I10 [facility] [address] [place] [id number] [address] [place] [phone] May, Lumbago with sciatica, unspe cified side M54.40 [facility] [address] [place] [id number] [address] [place] [phone] Apr, [facility] [address] [id number] Apr, Controlled type 2 diabetes m ellitus without complication, without long-term current use of insulin E11.9 ; Insect bite (nonvenomous), right ankle, initial encounter S90.561A ; Local infection of the skin and subcutaneous tissue, unspecified L08.9 ; Acute swimmer''s ear of left side H60.332 and BMI 45.0-49.9, adult Z68.42 [place] [address] [place] [id number] [address] [place] [id number] Apr, Lumbago with sciatica, unspe cified side M54.40 [facility] [address] [place] [id number] [address] [place] [phone] Mar, [place] [address] [place] [id number] [place] [phone] Mar, Lumbago with sciatica, unspe cified side M54.40 [facility] [address] [place] [id number] [address] [place] [id number] Feb, Lumbago with sciatica, unspe cified side M54.40 [facility] [address] [facility] [id number] [address] [place] [id number] Feb, BMI 45.0-49.9, adult Z68.42 and Obstructive sleep apnea syndrome G47.33 [place] [address] [place] [id number] [address] [place] [id number] January, Lumbar neuritis M54.16 [place] [address] [facility] [id number] [address] [place] [phone] January, Lumbago with sciatica, unspe cified side M54.40 [place] [address] [place] [id number] [place] [phone] Dec, Controlled type 2 diabetes m maribell without complication, without long-term current use of insulin E11.9 ; Erectile dysfunction due to diseases classified elsewhere N52.1 and Mood disorder F39 [place] [address] [place] [id number] [address] [place] [id number] Dec, Lumbago with sciatica, unspe cified side M54.40 [place] [address] [place] [id number] [address] [place] [id number] Dec, Obstructive sleep apnea synd luis G47.33 [place] [address] [place] [id number] [address] [place] [phone] Nov, Lumbago with sciatica, unspe cified side M54.40 ; Hypertension, benign I10 and Mood disorder F39 [facility] [address] [place] [id number] [address] [place] [phone] Nov, Other chronic pain G89.29 [facility] [address] [facility] [id number] [address] [place] [id number] Nov, Lumbago with sciatica, unspe cified side M54.40 [facility] [address] [id number] [address] [place] [address] [id number] Nov, Dental examination Z01.20 [facility] [address] [facility] [id number] [address] [place] [id number] Oct, [facility] [address] [facility] [id number] [address] [place] [phone] Oct, Lumbago with sciatica, unspe cified side M54.40 [facility] [address] [facility] [id number] [address] [place] [id number] Oct, Lumbago with sciatica, unspe cified side M54.40 [facility] [address] [facility] [id number] [address] [place] [phone] Oct, [facility] [address] [facility] [id number] [address] [place] [id number] Oct, [facility] [address] [facility] [id number] [address] [place] [address] [id number] Oct, Dental examination Z01.20 [facility] [address] [facility] [id number] [address] [place] [phone] Oct, [facility] [address] [facility] [id number] [address] [place] [id number] Oct, Pain in right knee M25.561 [facility] [address] [facility] [id number] [address] [place] [phone] Sep, [facility] [address] [facility] [id number] [address] [place] [phone] Sep, Other chronic pain G89.29 [facility] [address] [facility] [id number] [address] [place] [id number] Sep, Lumbago with sciatica, unspe cified side M54.40 [facility] [address] [facility] [id number] [address] [place] [phone] Sep, [facility] [address] [facility] [id number] [address] [place] [phone] Sep, Viral URI J06.9 and BMI 45.0 -49.9, adult Z68.42 [facility] [address] [facility] [id number] [address] [place] [id number] Aug, Foreign body hand S60.559A a nd BMI 45.0-49.9, adult Z68.42 [facility] [address] [facility] [id number] [address] [place] [id number] Aug, [facility] [address] [place] [id number] [address] [place] [id number] Aug, Lumbago with sciatica, unspe cified side M54.40 [facility] [address] [facility] [id number] [address] [place] [phone] Aug, Vertigo R42 ; Dysfunction of both eustachian tubes H69.83 ; Low back pain M54.5 and Other chronic pain G89.29 [facility] [address] [facility] [id number] [address] [place] [id number] Aug, Dizziness R42 and Acute bila teral otitis media H66.93 [facility] [address] [facility] [id number] [address] [place] [phone] Aug, Lumbago with sciatica, unspe cified side M54.40 [facility] [address] [facility] [id number] [address] [place] [address] [id number] Jul, Dental examination Z01.20 [facility] [address] [place] [id number] [address] [place] [id number] Jul, [facility] [address] [facility] [id number] [address] [place] [phone] Jul, [facility] [address] [facility] [id number] [address] [place] [phone] Jul, Dysfunction of both eustachi an tubes H69.83 [facility] [address] [facility] [id number] [address] [place] [phone] 07 Jul, 2017 Controlled type 2 diabetes m taraitus without complication, without long-term current use of insulin E11.9 [facility] [address] [id number] [address] [place] [phone] Jul, Controlled type 2 diabetes m ellitus without complication, without long-term current use of insulin E11.9 [facility] [address] [id number] [address] [place] [phone] Jul, Dizziness R42 and BMI 40.0-4 4.9, adult Z68.41 [facility] [address] [facility] [id number] [address] [place] [id number] Jul, Controlled type 2 diabetes m ellitus without complication, without long-term current use of insulin E11.9 [facility] [address] [facility] [id number] [address] [place] [phone] Jul, Lumbago with sciatica, unspe cified side M54.40 [facility] [address] [id number] [place] [address] [id number] Jul, Dental examination Z01.20 [facility] [address] [id number] [address] [place] [phone] Jun, [facility] [address] [id number] [place] [address] [id number] Jun, Dental examination Z01.20 [facility] [address] [facility] [id number] [address] [place] [phone] Jun, Controlled type 2 diabetes m ellitus without complication, without long-term current use of insulin E11.9 [facility] [address] [id number] [address] [place] [phone] Jun, Lumbago with sciatica, unspe cified side M54.40 [facility] [address] [place] [id number] [place] [address] [id number] May, Dental examination Z01.20 [facility] [address] [id number] [address] [place] [phone] May, Controlled type 2 diabetes m ellitus without complication, without long-term current use of insulin E11.9 [facility] [address] [id number] [address] [place] [address] [id number] 19 May, 2017 Dental examination Z01.20 [facility] [address] [facility] [id number] [address] [place] [phone] 18 May, 2017 Bronchitis J40 ; Dry mouth R 68.2 ; Non morbid obesity E66.9 and Controlled type 2 diabetes mellitus without complication, without long-term current use of insulin E11.9 [facility] [address] [facility] [id number] [address] [place] [phone] 16 May, 2017 Encounter for immunization Z 23 [place] [address] [facility] [id number] [place] [phone] 07 May, 2017 Lumbago with sciatica, unspe cified side M54.40 [facility] [address] [facility] [id number] [address] [place] [phone] 05 May, 2017 [facility] [address] [id number] [place] [address] [id number] Apr, Dental examination Z01.20 [facility] [address] [id number] [address] [place] [phone] Apr, Lumbago with sciatica, unspe cified side M54.40 [facility] [address] [facility] [id number] [address] [place] [phone] Mar, Lumbago with sciatica, left side M54.42 [facility] [address] [facility] [id number] [address] [place] [phone] Mar, [facility] [address] [facility] [id number] [address] [place] [phone] Mar, Lumbar neuritis M54.16 [facility] [address] [facility] [id number] [address] [place] [phone] Mar, [facility] [address] [id number] [address] [place] [address] [id number] Mar, Dental examination Z01.20 [place] [address] [facility] [id number] [address] [place] [phone] Mar, MELE (obstructive sleep apnea ) G47.33 ; Neuropathy involving both lower extremities G57.93 and Frequent headaches R51 [place] [address] [facility] [id number] [address] [place] [phone] Mar, Lumbago with sciatica, unspe cified side M54.40 [facility] [address] [place] [id number] [address] [place] [id number] Feb, Lumbago with sciatica, unspe cified side M54.40 and Controlled type 2 diabetes mellitus without complication, without long-term current use of insulin E11.9 [facility] [address] [place] [id number] [place] [address] January, Hypertension, benign I10 and Bilateral low back pain with sciatica, sciatica laterality unspecified M54.40 [facility] [address] [place] [id number] [place] [address] January, Hypertension, benign I10 ; L umbago with sciatica, unspecified side M54.40 ; Other chronic pain G89.29 and Controlled type 2 diabetes mellitus without complication, without long-term current use of insulin E11.9 [facility] [address] [place] [id number] [address] [place] [phone] January, Lumbar neuritis M54.16 [facility] [address] [place] [id number] [address] [place] [phone] January, [facility] [address] [place] [id number] [address] [place] [address] Dec, Lumbago with sciatica, right side M54.41 and Lumbar neuritis M54.16 [facility] [address] [place] [id number] [address] [place] [id number] Dec, Lumbar neuritis M54.16 [facility] [address] [place] [id number] [address] [place] [phone] Dec, Lumbar neuritis M54.16 [place] [address] [place] [id number] [address] [place] [id number] Nov, Lumbar neuritis M54.16 ; Lum bago with sciatica, right side M54.41 ; Controlled type 2 diabetes mellitus without complication, without long-term current use of insulin E11.9 and Rash and nonspecific skin eruption R21 [facility] [address] [place] [id number] [address] [place] [phone] Nov, Lumbar neuritis M54.16 and P derickpeter miroslava L23.7 [facility] [place] [address] [place] [id number] [address] [place] [phone] Oct, Lumbar neuritis M54.16 ; Cou ghing R05 and Mood disorder F39 [facility] [place] [address] [place] [id number] [address] [place] [phone] Sep, Lumbago with sciatica, right side M54.41 [facility] [place] [address] [place] [id number] [address] [place] [phone] Sep, Adjustment disorder with dis turbance of emotion F43.29 and Pain management R52 [facility] [address] [place] [id number] [address] [place] [phone] Sep, [facility] [address] [place] [id number] [address] [place] [phone] Sep, [facility] [place] [address] [place] [id number] [address] [place] [id number] Sep, Controlled type 2 diabetes evens reyna without complication, without long-term current use of insulin E11.9 and Lumbago with sciatica, unspecified side M54.40 [facility] [place] [address] [place] [id number] [address] [place] [address] Aug, Controlled type 2 diabetes evens reyna without complication, without long-term current use of insulin E11.9 ; Pain in right knee M25.561 ; Pain in left knee M25.562 ; Other chronic pain G89.29 ; Lumbago with sciatica, right side M54.41 ; Neck pain M54.2 and Encounter for immunization Z23 [facility] [address] [id number] [address] [place] [phone] Jul, [facility] [address] [id number] [address] [place] [phone] Jul, Controlled type 2 diabetes m maribell without complication, without long-term current use of insulin E11.9 [facility] [address] [id number] [address] [place] [phone] Jul, [facility] [address] [id number] [address] [place] [phone] Jul, [facility] [address] [id number] [address] [place] [phone] Jul, Lumbago with sciatica, left side M54.42 ; Lumbago with sciatica, right side M54.41 and Other chronic pain G89.29 [facility] [address] [id number] [address] [place] [id number] Jul, [facility] [address] [id number] [address] [place] [phone] Jul, [facility] [address] [id number] [address] [place] [phone] Jun, [facility] [address] [id number] [address] [place] [id number] Jun, Lumbago with sciatica, right side M54.41 and Other chronic pain G89.29 [facility] [address] [id number] [address] [place] [phone] Jun, Cervicalgia M54.2 ; Lumbago with sciatica, unspecified side M54.40 and Other chronic pain G89.29 [facility] [address] [id number] [address] [place] [id number] 15 May, 2016 Pain in right knee M25.561 ; Pain in left knee M25.562 and Other chronic pain G89.29 [facility] [address] [id number] [address] [place] [id number] May, [facility] [address] [id number] [address] [place] [phone] Apr, Other chronic pain G89.29 an d Pain in right knee M25.561 [facility] [address] [id number] [address] [place] [phone] Apr, Pain in right knee M25.561 [facility] [address] [id number] [address] [place] [phone] Mar, [facility] [address] [id number] [address] [place] [id number] Mar, Mood disorder F39 and Contro lled type 2 diabetes mellitus without complication, without long-term current use of insulin E11.9 [facility] [address] [id number] [address] [place] [id number] Mar, Pain in right knee M25.561 ; Pain in left knee M25.562 ; Other chronic pain G89.29 ; Obstructive sleep apnea syndrome G47.33 ; Mood disorder F39 and Controlled type 2 diabetes mellitus without complication, without long- term current use of insulin E11.9 [facility] [address] [id number] [address] [place] [id number] Mar, [facility] [address] [id number] [address] [place] [id number] Feb, Dental examination Z01.20 [facility] [address] [id number] [address] [place] [phone] Feb, [facility] [address] [id number] [address] [place] [phone] Feb, Osteoarthritis of right knee , unspecified osteoarthritis type M17.9 [facility] [address] [id number] [address] [place] [phone] January, [facility] [address] [id number] [address] [place] [id number] January, Dental examination Z01.20 [facility] [address] [id number] [address] [place] [phone] January, [facility] [address] [id number] [address] [place] [address] [id number] January, Dental examination Z01.20 an d Caries K02.9 [facility] [address] [id number] [address] [place] [phone] Dec, Encounter for other preproce dural examination Z01.818 [facility] [address] [id number] [address] [place] [phone] Dec, [facility] [address] [id number] [address] [place] [phone] Dec, Knee pain M25.569 [facility] [address] [id number] [address] [place] [id number] Dec, Pain in right knee M25.561 [facility] [address] [id number] [address] [place] [phone] Dec, [facility] [address] [id number] [address] [place] [phone] Dec, [facility] [address] [id number] [address] [place] [phone] Dec, Encounter for immunization Z 23 [facility] [address] [id number] [address] [place] [id number] Dec, [facility] [address] [id number] [address] [place] [phone] Dec, [facility] [address] [id number] [address] [place] [phone] Nov, [facility] [address] [id number] [address] [place] [id number] Nov, Hypertension, benign I10 ; C ervicalgia M54.2 ; Pain in right knee M25.561 and Pain in left knee M25.562 [place] [address] [facility] [id number] [address] [place] [phone] Oct, [facility] [address] [facility] [id number] [address] [place] [phone] Oct, [facility] [address] [facility] [id number] [address] [place] [phone] Oct, Osteoarthritis of both knees M17.0 [facility] [address] [facility] [id number] [address] [place] [phone] Oct, [facility] [address] [facility] [id number] [address] [place] [id number] Oct, Low back pain M54.5 [facility] [address] [facility] [id number] [address] [place] [id number] Oct, Low back pain M54.5 ; Sciati ca, unspecified side M54.30 ; Pain in right knee M25.561 ; Pain in left knee M25.562 ; Pain in right shoulder M25.511 and Pain in left shoulder M25.512 [facility] [address] [facility] [id number] [address] [place] [phone] Oct, [facility] [place] [address] [facility] [id number] [address] [place] [phone] Sep, Pain in right hip M25.551 [facility] [place] [address] [facility] [id number] [address] [place] [phone] Sep, Acute upper respiratory infe ction, unspecified J06.9 [facility] [place] [address] [facility] [id number] [address] [place] [phone] Aug, Acute upper respiratory infe ction, unspecified J06.9 and Other viral agents as the cause of diseases classified elsewhere B97.89 [facility] [address] [facility] [id number] [address] [place] [phone] Jul, Arthritis M19.90 [facility] [address] [id number] [address] [place] [phone] Jun, Arthritis M19.90 ; Pain in r ight hip M25.551 ; Pain in left hip M25.552 ; Bilateral low back pain with sciatica, sciatica laterality unspecified M54.40 ; Neck pain M54.2 ; Upper back pain M54.9 and Knee pain, unspecified laterality M25.569 [facility] [address] [id number] [address] [place] [id number] May, Osteoarthritis of both knees 715.96 [facility] [address] [id number] [address] [place] [phone] May, Rash 782.1 [facility] [address] [id number] [address] [place] [phone] Apr, Lumbar strain 847.2 [facility] [address] [id number] [address] [place] [phone] Apr, Rash 782.1 [facility] [address] [id number] [address] [place] [id number] Mar, Rash 782.1 [facility] [address] [facility] [id number] [address] [place] [id number] Feb, Rash 782.1 ; Hemorrhoids 455 .6 and Constipation 564.00 [facility] [address] [id number] [address] [place] [phone] Feb, Osteoarthritis of both knees 715.96 [facility] [address] [id number] [address] [place] [phone] January, [facility] [address] [id number] [address] [place] [id number] Dec, [facility] [address] [facility] [id number] [address] [place] [phone] Dec, [facility] [address] [id number] [address] [place] [phone] 13 Dec, 2014 [facility] [address] [id number] [address] [place] [address], [place] [address] 18 Nov, 2014 [facility] [address] [id number] [address] [place] [address], [place] [address] 18 Nov, 2014 [facility] [address] [id number] [address] [place] [address], [place] [address] 18 Nov, 2014 [facility] [address] [id number] [address] [place] [address], [place] [address] 18 Nov, 2014 [facility] [address] [id number] [address] [place] [address], [place] [address] Nov, [facility] [address] [id number] [address] [place] [address], [place] [address] Nov, [facility] [address] [id number] [address] [place] [address], [place] [address] Oct, [facility] [address] [id number] [address] [place] [address], [place] [address] Oct, [facility] [address] [id number] [address] [place] [address], [place] [address] Oct, 2014 [facility] [address] [id number] [address] [place] [address], [place] [address] Oct, [facility] [address] [id number] [address] [place] [address], [place] [address] Oct, 2014 [facility] [address] [id number] [address] [place] [address], [place] [address] Oct, 2014 [facility] [address] [id number] [address] [place] [address], [place] [address] Oct, 2014 [facility] [address] [id number] [address] [place] [address], [place] [address] Oct, 2014 [facility] [address] [id number] [address] [place] [address], [place] [address] Oct, [facility] [address] [id number] [address] [place] [address], [place] [address] Oct, [facility] [address] [id number] [address] [place] [address], [place] [address] Oct, [facility] [address] [id number] [address] [place] [address], [place] [address] Sep, [facility] [address] [id number] [address] [place] [address], [place] [address] Sep, [facility] [address] [id number] [address] [place] [address], [place] [address] Sep, [facility] [address] [id number] [address] [place] [address], [place] [address] Sep, [facility] [address] [id number] [address] [place] [address], [place] [address] Sep, [facility] [address] [id number] [address] [place] [address], [place] [address] Sep, [facility] [address] [id number] [address] [place] [address], [place] [address] Aug, [facility] [address] [id number] [address] [place] [address], [place] [address] Aug, [facility] [address] [id number] [address] [place] [address], [place] [address] Aug, [facility] [address] [id number] [address] [place] [address], [place] [address] Aug, [facility] [address] [id number] [address] [place] [address], [place] [address] Aug, [facility] [address] [id number] [address] [place] [address], [place] [address] Aug, [facility] [address] [id number] [address] [place] [address], [place] [address] Aug, [facility] [address] [id number] [address] [place] [address], [place] [address] Aug, [facility] [address] [id number] [address] [place] [address], [place] [address] Aug, [facility] [address] [id number] [address] [place] [address], [place] [address] Aug, [facility] [address] [id number] [address] [place] [address], [place] [address] Jul, [facility] [address] [id number] [address] [place] [address], [place] [address] Jul, [facility] [address] [id number] [address] [place] [address], [place] [address] Jul, [facility] [address] [id number] [address] [place] [address], [place] [address] Jul, [facility] [address] [id number] [address] [place] [address], [place] [address] Jun, [facility] [address] [id number] [address] [place] [address], [place] [address] Jun, [facility] [address] [id number] [address] [place] [address], [place] [address] Jun, [facility] [address] [id number] [address] [place] [address], [place] [address] Jun, [facility] [address] [id number] [address] [place] [address], [place] [address] Jun, [facility] [address] [id number] [address] [place] [address], [place] [address] Jun, [facility] [address] [id number] [address] [place] [address], [place] [address] Jun, [facility] [address] [id number] [address] [place] [address], [place] [address] Jun, [facility] [address] [id number] [address] [place] [address], [place] [address] May, [facility] [address] [id number] [facility] [place] [address] 24 May, 2013 [facility] [address] [id number] [facility] [place] [address] 19 May, 2014 [facility] [address] [id number] [facility] [place] [address] 19 May, 2013 [facility] [address] [id number] [address] [place] [address], [place] [address] 15 May, 2014 [facility] [address] [id number] [address] [place] [address], [place] [address] 15 May, 2014 [facility] [address] [id number] [address] [place] [address], [place] [address] 15 May, 2014 [facility] [address] [id number] [address] [place] [address], [place] [address] May, [facility] [address] [id number] [address] [place] [address], [place] [address] Apr, [facility] [address] [id number] [address] [place] [address], [place] [address] Apr, [facility] [address] [id number] [address] [place] [address], [place] [address] Apr, [facility] [address] [id number] [address] [place] [address], [place] [address] Apr, [facility] [address] [id number] [address] [place] [address], [place] [address] Apr, [facility] [address] [id number] [address] [place] [address], [place] [address] Apr, [facility] [address] [id number] [address] [place] [address], [place] [address] Apr, [facility] [address] [id number] [address] [place] [address], [place] [address] Apr, [facility] [address] [id number] [address] [place] [address], [place] [address] Apr, [facility] [address] [id number] [address] [place] [address], [place] [address] Apr, [facility] [address] [id number] [address] [place] [address], [place] [address] Apr, [facility] [address] [id number] [address] [place] [address], [place] [address] Apr, [facility] [address] [id number] [address] [place] [address], [place] [address] Mar, [facility] [address] [id number] [address] [place] [address], [place] [address] Mar, [facility] [address] [id number] [address] [place] [address], [place] [address] Mar, [facility] [address] [id number] [address] [place] [address], [place] [address] Mar, [facility] [address] [id number] [address] [place] [address], [place] [address] Mar, [facility] [address] [id number] [address] [place] [address], [place] [address] Mar, [facility] [address] [id number] [address] [place] [address], [place] [address] Feb, [facility] [address] [id number] [address] [place] [address], [place] [address] Feb, [facility] [address] [id number] [address] [place] [address], [place] [address] Feb, [facility] [address] [id number] [address] [place] [address], [place] [address] Feb, [facility] [address] [id number] [address] [place] [address], [place] [address] Feb, [facility] [address] [id number] [address] [place] [address], [place] [address] Feb, [facility] [address] [id number] [facility] [place] [address] Feb, [facility] [address] [id number] [address] [place] [address], [place] [address] Feb, [facility] [address] [id number] [address] [place] [address], [place] [address] Feb, [facility] [address] [id number] [address] [place] [address], [place] [address] Feb, [facility] [address] [id number] [address] [place] [address], [place] [address] Feb, [facility] [address] [id number] [address] [place] [address], [place] [address] Feb, [facility] [address] [id number] [address] [place] [address], [place] [address] Feb, [facility] [address] [id number] [address] [place] [address], [place] [address] Feb, [facility] [address] [id number] [address] [place] [address], [place] [address] January, [facility] [address] [id number] [address] [place] [address], [place] [address] January, [facility] [address] [id number] [address] [place] [address], [place] [address] January, [facility] [address] [id number] [address] [place] [address], [place] [address] January, [facility] [address] [id number] [address] [place] [address], [place] [address] January, [facility] [address] [id number] [address] [place] [address], [place] [address] January, [facility] [address] [id number] [address] [place] [address], [place] [address] Dec, [facility] [address] [id number] [address] [place] [address], [place] [address] Dec, [facility] [address] [id number] [address] [place] [address], [place] [address] Dec, [facility] [address] [id number] [address] [place] [address], [place] [address] Dec, [facility] [address] [id number] [address] [place] [address], [place] [address] Dec, [facility] [address] [id number] [address] [place] [address], [place] [address] Dec, [facility] [address] [id number] [address] [place] [address], [place] [address] Dec, [facility] [address] [id number] [address] [place] [address], [place] [address] Dec, [facility] [address] [id number] [address] [place] [address], [place] [address] Nov, [facility] [address] [id number] [address] [place] [address], [place] [address] Nov, [facility] [address] [id number] [address] [place] [address], [place] [address] Nov, [facility] [address] [id number] [address] [place] [address], [place] [address] Nov, [facility] [address] [id number] [address] [place] [address], [place] [address] Nov, [facility] [address] [id number] [address] [place] [address], [place] [address] Nov, [facility] [address] [id number] [address] [place] [address], [place] [address] Nov, [facility] [address] [id number] [address] [place] [address], [place] [address] Nov, [facility] [address] [id number] [address] [place] [address], [place] [address] Oct, [facility] [address] [id number] [address] [place] [address], [place] [address] Oct, [facility] [address] [id number] [address] [place] [address], [place] [address] Oct, [facility] [address] [id number] [address] [place] [address], [place] [address] Oct, [facility] [address] [id number] [address] [place] [address], [place] [address] Oct, [facility] [address] [id number] [address] [place] [address], [place] [address] Oct, [facility] [address] [id number] [address] [place] [address], [place] [address] Oct, [facility] [address] [id number] [address] [place] [address], [place] [address] Oct, [facility] [address] [id number] [address] [place] [address], [place] [address] Oct, [facility] [address] [id number] [address] [place] [address], [place] [address] Oct, [facility] [address] [id number] [address] [place] [address], [place] [address] Sep, [facility] [address] [id number] [address] [place] [address], [place] [address] Sep, [facility] [address] [id number] [address] [place] [address], [place] [address] Sep, [facility] [address] [id number] [address] [place] [address], [place] [address] Sep, [facility] [address] [id number] [address] [place] [address], [place] [address] Sep, [facility] [address] [id number] [address] [place] [address], [place] [address] Sep, [facility] [address] [id number] [address] [place] [address], [place] [address] Aug, [facility] [address] [id number] [address] [place] [address], [place] [address] Aug, [facility] [address] [id number] [address] [place] [address], [place] [address] Aug, [facility] [address] [id number] [address] [place] [address], [place] [address] Aug, [facility] [address] [id number] [address] [place] [address], [place] [address] Aug, [facility] [address] [id number] [address] [place] [address], [place] [address] Aug, [facility] [address] [id number] [address] [place] [address], [place] [address] Aug, [facility] [address] [id number] [address] [place] [address], [place] [address] Aug, [facility] [address] [id number] [address] [place] [address], [place] [address] Jul, [facility] [address] [id number] [address] [place] [address], [place] [address] Jul, [facility] [address] [id number] [address] [place] [address], [place] [address] Jul, [facility] [address] [id number] [address] [place] [address], [place] [address] Jul, [facility] [address] [id number] [address] [place] [address] Jul, [facility] [address] [id number] [address] [place] [address], [place] [address] Jul, [facility] [address] [id number] [address] [place] [address], [place] [address] Jun, [facility] [address] [id number] [address] [place] [address], [place] [address] Jun, [facility] [address] [id number] [address] [place] [address] [place] [address] Jun, [facility] [address] [id number] [address] [place] [address], [place] [address] 24 May, 2013 [facility] [address] [id number] [address] [place] [address], [place] [address] May, [facility] [address] [id number] [address] [place] [address], [place] [address] May, [facility] [address] [id number] [address] [place] [address], [place] [address] Apr, [facility] [address] [id number] [address] [place] [address], [place] [address] Apr, [facility] [address] [id number] [address] [place] [address], [place] [address] Apr, [facility] [address] [id number] [address] [place] [address], [place] [address] Apr, [facility] [address] [id number] [address] [place] [address], [place] [address] Mar, [facility] [address] [id number] [address] [place] [address], [place] [address] Mar, [facility] [address] [id number] [address] [place] [address], [place] [address] Mar, [facility] [address] [id number] [address] [place] [address], [place] [address] Mar, [facility] [address] [id number] [address] [place] [address], [place] [address] Feb, [facility] [address] [id number] [address] [place] [address], [place] [address] Feb, [facility] [address] [id number] [address] [place] [address], [place] [address] Feb, [facility] [address] [id number] [address] [place] [address], [place] [address] Feb, [facility] [address] [id number] [address] [place] [address], [place] [address] January, [facility] [address] [id number] [address] [place] [address], [place] [address] January, [facility] [address] [id number] [address] [place] [address], [place] [address] January, [facility] [address] [id number] [address] [place] [address], [place] [address] Nov, [facility] [address] [id number] [address] [place] [address], [place] [address] Nov, [facility] [address] [id number] [address] [place] [address], [place] [address] Oct, [facility] [address] [id number] [address] [place] [address], [place] [address] Oct, [facility] [address] [id number] [address] [place] [address], [place] [address] Oct, [facility] [address] [id number] [address] [place] [address], [place] [address] Oct, [facility] [address] [id number] [address] [place] [address], [place] [address] Sep, [facility] [address] [id number] [address] [place] [address], [place] [address] Sep, [facility] [address] [id number] [address] [place] [address], [place] [address] Sep, [facility] [address] [id number] [address] [place] [address], [place] [address] Aug, [facility] [address] [id number] [address] [place] [address], [place] [address] Aug, [facility] [address] [id number] [address] [place] [address], [place] [address] Aug, [facility] [address] [id number] [address] [place] [address], [place] [address] Aug, [facility] [address] [id number] [address] [place] [address], [place] [address] Aug, [facility] [address] [id number] [address] [place] [address], [place] [address] Aug, [facility] [address] [id number] [address] [place] [address], [place] [address] Jul, [facility] [address] [id number] [address] [place] [address], [place] [address] Jul, [facility] [address] [id number] [address] [place] [address], [place] [address] Jun, [facility] [address] [id number] [address] [place] [address], [place] [address] Jun, [facility] [address] [id number] [address] [place] [address], [place] [address] Jun, [facility] [address] [id number] [address] [place] [address], [place] [address] Apr, [facility] [address] [id number] [address] [place] [address], [place] [address] Apr, [facility] [address] [id number] [address] [place] [address], [place] [address] Mar, [facility] [address] [id number] [address] [place] [address], [place] [address] Mar, [facility] [address] [id number] [address] [place] [id number] Mar, [facility] [address] [id number] [address] [place] [address], [place] [address] Mar, [facility] [address] [id number] [address] [place] [address], [place] [address] Feb, [facility] [address] [id number] [address] [place] [address], [place] [address] Feb, [facility] [address] [id number] [address] [place] [address], [place] [address] Feb, [facility] [address] [id number] [address] [place] [address], [place] [address] January, [facility] [address] [id number] [address] [place] [address], [place] [address] January, [facility] [address] [id number] [address] [place] [address], [place] [address] January, [facility] [address] [id number] [address] [place] [address], [place] [address] January, [facility] [address] [id number] [address] [place] [address], [place] [address] Dec, [facility] [address] [id number] [address] [place] [address], [place] [address] Dec, [facility] [address] [id number] [address] [place] [address], [place] [address] Nov, [facility] [address] [id number] [address] [place] [address], [place] [address] Nov, [facility] [address] [id number] [address] [place] [address], [place] [address] 16 Oct, 2011 [facility] [address] [id number] [address] [place] [address], [place] [address] Oct, [facility] [address] [id number] [address] [place] [address], [place] [address] Sep, [facility] [address] [id number] [address] [place] [address], [place] [address] Sep, [facility] [address] [id number] [address] [place] [address], [place] [address] Sep, [facility] [address] [id number] [address] [place] [address], [place] [address] Sep, [facility] [address] [id number] [address] [place] [address], [place] [address] Aug, [facility] [address] [id number] [address] [place] [id number] 16 Aug, 2011 [facility] [address] [id number] [address] [place] [address] Aug, [facility] [address] [id number] [address] [place] [id number] Jul, [facility] [address] [id number] [address] [place] [address] Aug, [facility] [address] [id number] [address] [place] [id number] Aug, [facility] [address] [id number] [address] [place] [id number] Aug, [facility] [address] [id number] [address] [place] [id number] Aug, [facility] [address] [id number] [address] [place] [id number] Jul, [facility] [address] [id number] [address] [place] [id number] Jul, [facility] [address] [id number] [address] [place] [id number] Jul, [facility] [address] [id number] [address] [place] [id number] Jun, [facility] [address] [id number] [address] [place] [id number] Jun, [facility] [address] [id number] [address] [place] [id number] Jun, [facility] [address] [id number] [address] [place] [phone] Apr, [facility] [address] [id number] [address] [place] [id number] Mar, IMMUNIZATIONS No Known Immunizations SOCIAL HISTORY [...]
--- OUTSIDE RECORDS SUMMARY | 2020-03-18 15:04 | XMS REPORT ---
Author Author George WAYNE Organization [facility] Address [address] [place] [address] Care Team Providers Care Entry Specialists Name Role Phone REYNA WAYNE Unavailable PROBLEMS Type Condition ICD9-CM Code MJM56-CE Code Onset Dates Condition S tatus SNOMED Code Problem Hypertension, benign I10 Active 31317960 Problem Other chronic pain G89.29 Active 8 9779929 Problem Lumbago with sciatica, unspecified side M54.40 Active 378197466 Problem Controlled type 2 diabetes m ellitus without complication, without long- term current use of insulin E11.9 Active 608768147 Problem Lumbago with sciatica, right side M54.41 Active 245387193 Problem Adjustment disorder with disturbance of emotion F4 3.29 Active 68972229 Problem MELE (obstructive sleep apnea) G47.33 Active 59125393 Problem Non morbid obesity E66.9 Active 4 43105243 Problem Hammer toe of left foot M20.42 Active 107651342 Problem Mood disorder F39 Active 841792 05 Problem Deformity of left foot M21.962 Active 098258774 Problem Lumbago with sciatica, left side M54.42 Active 308612328 Problem Erectile dysfunction due to diseases classified elsewhere N52.1 Active 356280529 Problem Obstructive sleep apnea syndrome G47.33 Active 53342898 Problem Type 2 diabetes mellitus wit h diabetic neuropathy, without long-term current use of insulin E11.40 Active 69331 006 Problem Essential hypertension I10 Active 88476329 ALLERGIES No Information ENCOUNTERS Encounter Location Date Diagnosis [facility] [address] [facility] [id number] [address] [place] [phone] 13 Dec, 2019 Acute diffuse otitis externa of left ear H60.312 [facility] [address] [facility] [id number] [address] [place] [phone] 18 Nov, 2019 Viral URI J06.9 and Flu-like symptoms R68.89 [place] [address] [facility] [id number] [address] [place] [id number] 09 Nov, 2019 Type 2 diabetes mellitus wit h diabetic neuropathy, without long- term current use of insulin E11.40 ; Family history of prostate cancer Z80.42 and Prostate cancer screening Z12.5 [place] [address] [place] [id number] [address] [place] [phone] Nov, [place] [address] [place] [id number] [address] [place] [phone] Sep, [place] [address] [place] [id number] [address] [place] [address] Aug, [place] [address] [place] [id number] [place] [id number] Jul, Lumbago with sciatica, unspe cified side M54.40 [place] [address] [place] [id number] [address] [place] [phone] Jun, Lumbago with sciatica, unspe cified side M54.40 [place] [address] [place] [id number] [address] [place] [address] Jun, URI, acute J06.9 [place] [address] [place] [id number] [address] [place] [phone] May, Lumbago with sciatica, unspe cified side M54.40 [place] [address] [facility] [id number] [address] [place] [id number] May, [place] [address] [place] [id number] [address] [place] [phone] 12 May, 2019 Type 2 diabetes mellitus wit h diabetic neuropathy, without long- term current use of insulin E11.40 and Hammer toe of left foot M20.42 [place] [address] [facility] [id number] [address] [place] [phone] May, [place] [address] [place] [id number] [address] [place] [phone] May, [facility] [address] [place] [id number] [address] [place] [address] May, [facility] [address] [place] [id number] [address] [place] [phone] Apr, Lumbago with sciatica, unspe cified side M54.40 [facility] [address] [place] [id number] [address] [place] [id number] Apr, [facility] [address] [place] [id number] [address] [place] [phone] Apr, [address] [id number] [address] Apr, Hammer toe of left foot M20. 42 ; Chest pain R07.9 ; Preoperative examination Z01.818 and Morbid obesity E66.01 [place] [address] [place] [id number] [address] [place] [address] Apr, Morbid obesity E66.01 ; Bron chitis J40 and High risk medications (not anticoagulants) long-term use Z79.899 [place] [address] [place] [id number] [address] [place] [phone] Apr, Lumbago with sciatica, unspe cified side M54.40 [facility] [address] [place] [id number] [address] [place] [address] Apr, [facility] [address] [place] [id number] [address] [place] [phone] Mar, Lumbar neuritis M54.16 and M orbid obesity E66.01 [facility] [address] [place] [id number] [address] [place] [phone] Mar, [facility] [address] [place] [id number] [address] [place] [address] Mar, [facility] [address] [place] [id number] [address] [place] [phone] Mar, Lumbago with sciatica, unspe cified side M54.40 [facility] [address] [id number] [address] [place] [phone] Mar, Morbid obesity E66.01 ; Gabe lara R05 ; 2+ pitting edema R60.9 and Controlled type 2 diabetes mellitus without complication, without long-term current use of insulin E11.9 [facility] [address] [id number] [address] [place] [phone] Feb, [facility] [address] [id number] [address] [place] [phone] Feb, Lumbago with sciatica, unspe cified side M54.40 [facility] [address] [id number] [address] [place] [phone] Feb, [facility] [address] [id number] [address] [place] [phone] Feb, Controlled type 2 diabetes m ellitus without complication, without long-term current use of insulin E11.9 and Morbid obesity E66.01 [facility] [address] [id number] [address] [place] [address] January, Deformity of left foot M21.9 62 [facility] [address] [id number] [address] [place] [phone] January, [facility] [address] [id number] [address] [place] [id number] January, Lumbago with sciatica, unspe cified side M54.40 [facility] [address] [id number] [address] [place] [phone] January, [facility] [address] [id number] [address] [place] [phone] January, Lumbago with sciatica, unspe cified side M54.40 [facility] [address] [id number] [address] [place] [id number] January, [facility] [address] [facility] [id number] [address] [place] [id number] January, Acute right-sided thoracic b ack pain M54.6 [facility] [address] [place] [id number] [address] [place] [address] January, Acute right-sided thoracic b ack pain M54.6 [facility] [address] [address] January, Chest pain, unspecified type R07.9 ; Morbid obesity E66.01 and Scabies B86 [facility] [address] [place] [id number] [address] [place] [address] Dec, Lumbago with sciatica, unspe cified side M54.40 [place] [id number] [address] Dec, Toenail fungus B35.1 [facility] [address] [place] [id number] [address] [place] [address] Dec, Toenail fungus B35.1 [facility] [address] [address] Dec, Acute right-sided thoracic b ack pain M54.6 [place] [id number] [place] [id number] [address] [place] [address] Dec, Lumbago with sciatica, unspe cified side M54.40 [facility] [address] [place] [id number] [address] [place] [address] Nov, Hammer toe of left foot M20. 42 ; Deformity of left foot M21.962 and Type 2 diabetes mellitus with diabetic neuropathy, without long-term current use of insulin E11.40 [facility] [address] [facility] [id number] [address] [place] [address] Nov, Acute right-sided thoracic b ack pain M54.6 ; Morbid obesity E66.01 and Rt flank pain R10.9 [place] [address] [facility] [id number] [address] [place] [phone] Nov, Lumbago with sciatica, unspe cified side M54.40 [place] [address] [place] [id number] [address] [place] [address] Oct, Lumbago with sciatica, unspe cified side M54.40 [place] [address] [place] [id number] [place] [address] Sep, Lumbago with sciatica, unspe cified side M54.40 [place] [address] [place] [id number] [address] [place] [address] Sep, [place] [address] [place] [id number] [place] [address] Sep, BMI 40.0-44.9, adult Z68.41 ; Lumbago with sciatica, left side M54.42 ; Lumbago with sciatica, right side M54.41 and Other chronic pain G89.29 [place] [address] [place] [id number] [address] [place] [address] Aug, Lumbago with sciatica, unspe cified side M54.40 [place] [address] [place] [id number] [address] [place] [phone] Aug, Type 2 diabetes mellitus wit h diabetic neuropathy, without long- term current use of insulin E11.40 ; Hammer toe of left foot M20.42 ; Hypertension, benign I10 and Frequent headaches R51 [place] [address] [place] [id number] [address] [place] [id number] Jul, Lumbago with sciatica, unspe cified side M54.40 [place] [address] [place] [id number] [address] [place] [address] Jul, [place] [address] [place] [id number] [address] [place] [phone] Jul, Essential hypertension I10 a nd Controlled type 2 diabetes mellitus without complication, without long-term current use of insulin E11.9 [facility] [address] [facility] [id number] [address] [place] [phone] Jul, Essential hypertension I10 ; Controlled type 2 diabetes mellitus without complication, without long-term current use of insulin E11.9 and BMI 40.0-44.9, adult Z68.41 [facility] [address] [facility] [id number] [address] [place] [address] Jul, Dysfunction of left eustachi an tube H69.82 [facility] [address] [id number] [address] [place] [id number] Jul, Lumbago with sciatica, unspe cified side M54.40 [facility] [address] [id number] [address] [place] [address] [id number] Jun, Dental examination Z01.20 [facility] [address] [facility] [id number] [address] [place] [phone] Jun, Lumbago with sciatica, unspe cified side M54.40 and Encounter for immunization Z23 [facility] [address] [facility] [id number] [address] [place] [phone] Jun, Dysfunction of left eustachi an tube H69.82 [place] [id number] [facility] [id number] [place] [address] [id number] Jun, Dental examination Z01.20 [facility] [address] [id number] [address] [place] [address] Jun, Other chronic pain G89.29 [facility] [address] [id number] [address] [place] [address] [id number] Jun, Dental examination Z01.20 [facility] [address] [id number] [address] [place] [address] Jun, [facility] [address] [id number] [address] [place] [address] Jun, Bronchitis J40 ; Dysfunction of left eustachian tube H69.82 and BMI 45.0-49.9, adult Z68.42 [facility] [address] [place] [id number] [address] [place] [address] Jun, Lumbago with sciatica, unspe cified side M54.40 [facility] [address] [place] [id number] [address] [place] [id number] May, Type 2 diabetes mellitus wit h diabetic neuropathy, without long- term current use of insulin E11.40 and Hypertension, benign I10 [facility] [address] [place] [id number] [address] [place] [phone] May, Lumbago with sciatica, unspe cified side M54.40 [facility] [address] [place] [id number] [address] [place] [phone] Apr, [facility] [address] [address] Apr, Controlled type 2 diabetes m ellitus without complication, without long-term current use of insulin E11.9 ; Insect bite (nonvenomous), right ankle, initial encounter S90.561A ; Local infection of the skin and subcutaneous tissue, unspecified L08.9 ; Acute swimmer''s ear of left side H60.332 and BMI 45.0-49.9, adult Z68.42 [place] [id number] [place] [id number] [address] [place] [address] Apr, Lumbago with sciatica, unspe cified side M54.40 [facility] [address] [place] [id number] [address] [place] [address] Mar, [place] [address] [place] [id number] [place] [phone] Mar, Lumbago with sciatica, unspe cified side M54.40 [facility] [address] [place] [id number] [address] [place] [address] Feb, Lumbago with sciatica, unspe cified side M54.40 [facility] [address] [facility] [id number] [address] [place] [phone] Feb, BMI 45.0-49.9, adult Z68.42 and Obstructive sleep apnea syndrome G47.33 [place] [address] [place] [id number] [address] [place] [address] January, Lumbar neuritis M54.16 [place] [address] [facility] [id number] [address] [place] [phone] January, Lumbago with sciatica, unspe cified side M54.40 [place] [address] [place] [id number] [place] [phone] Dec, Controlled type 2 diabetes m maribell without complication, without long-term current use of insulin E11.9 ; Erectile dysfunction due to diseases classified elsewhere N52.1 and Mood disorder F39 [place] [address] [place] [id number] [address] [place] [address] Dec, Lumbago with sciatica, unspe cified side M54.40 [place] [address] [place] [id number] [address] [place] [address] Dec, Obstructive sleep apnea synd luis G47.33 [place] [address] [place] [id number] [address] [place] [address] Nov, Lumbago with sciatica, unspe cified side M54.40 ; Hypertension, benign I10 and Mood disorder F39 [facility] [address] [place] [id number] [address] [place] [address] Nov, Other chronic pain G89.29 [facility] [address] [facility] [id number] [address] [place] [address] Nov, Lumbago with sciatica, unspe cified side M54.40 [facility] [address] [id number] [address] [place] [address] [id number] Nov, Dental examination Z01.20 [facility] [address] [facility] [id number] [address] [place] [phone] Oct, [facility] [address] [facility] [id number] [address] [place] [address] Oct, Lumbago with sciatica, unspe cified side M54.40 [facility] [address] [facility] [id number] [address] [place] [phone] Oct, Lumbago with sciatica, unspe cified side M54.40 [facility] [address] [facility] [id number] [address] [place] [address] Oct, [facility] [address] [facility] [id number] [address] [place] [address] Oct, [facility] [address] [facility] [id number] [address] [place] [address] [id number] Oct, Dental examination Z01.20 [facility] [address] [facility] [id number] [address] [place] [phone] Oct, [facility] [address] [facility] [id number] [address] [place] [phone] Oct, Pain in right knee M25.561 [facility] [address] [facility] [id number] [address] [place] [address] Sep, [facility] [address] [facility] [id number] [address] [place] [phone] Sep, Other chronic pain G89.29 [facility] [address] [facility] [id number] [address] [place] [address] Sep, Lumbago with sciatica, unspe cified side M54.40 [facility] [address] [facility] [id number] [address] [place] [id number] Sep, [facility] [address] [facility] [id number] [address] [place] [phone] Sep, Viral URI J06.9 and BMI 45.0 -49.9, adult Z68.42 [facility] [address] [facility] [id number] [address] [place] [address] Aug, Foreign body hand S60.559A a nd BMI 45.0-49.9, adult Z68.42 [facility] [address] [facility] [id number] [address] [place] [phone] Aug, [facility] [address] [place] [id number] [address] [place] [address] Aug, Lumbago with sciatica, unspe cified side M54.40 [facility] [address] [facility] [id number] [address] [place] [address] Aug, Vertigo R42 ; Dysfunction of both eustachian tubes H69.83 ; Low back pain M54.5 and Other chronic pain G89.29 [facility] [address] [facility] [id number] [address] [place] [address] Aug, Dizziness R42 and Acute bila teral otitis media H66.93 [facility] [address] [facility] [id number] [address] [place] [phone] Aug, Lumbago with sciatica, unspe cified side M54.40 [facility] [address] [facility] [id number] [address] [place] [address] [id number] Jul, Dental examination Z01.20 [facility] [address] [place] [id number] [address] [place] [phone] Jul, [facility] [address] [facility] [id number] [address] [place] [phone] Jul, [facility] [address] [facility] [id number] [address] [place] [phone] Jul, Dysfunction of both eustachi an tubes H69.83 [facility] [address] [facility] [id number] [address] [place] [phone] 07 Jul, 2017 Controlled type 2 diabetes m taraitus without complication, without long-term current use of insulin E11.9 [facility] [address] [id number] [address] [place] [phone] Jul, Controlled type 2 diabetes m ellitus without complication, without long-term current use of insulin E11.9 [facility] [address] [id number] [address] [place] [phone] Jul, Dizziness R42 and BMI 40.0-4 4.9, adult Z68.41 [facility] [address] [facility] [id number] [address] [place] [phone] Jul, Controlled type 2 diabetes m ellitus without complication, without long-term current use of insulin E11.9 [facility] [address] [facility] [id number] [address] [place] [phone] Jul, Lumbago with sciatica, unspe cified side M54.40 [facility] [address] [id number] [place] [address] [id number] Jul, Dental examination Z01.20 [facility] [address] [id number] [address] [place] [phone] Jun, [facility] [address] [id number] [place] [address] [id number] Jun, Dental examination Z01.20 [facility] [address] [facility] [id number] [address] [place] [phone] Jun, Controlled type 2 diabetes m ellitus without complication, without long-term current use of insulin E11.9 [facility] [address] [id number] [address] [place] [phone] Jun, Lumbago with sciatica, unspe cified side M54.40 [facility] [address] [place] [id number] [place] [phone] May, Dental examination Z01.20 [facility] [address] [id number] [address] [place] [phone] May, Controlled type 2 diabetes m ellitus without complication, without long-term current use of insulin E11.9 [facility] [address] [id number] [address] [place] [phone] 19 May, 2017 Dental examination Z01.20 [facility] [address] [facility] [id number] [address] [place] [phone] 18 May, 2017 Bronchitis J40 ; Dry mouth R 68.2 ; Non morbid obesity E66.9 and Controlled type 2 diabetes mellitus without complication, without long-term current use of insulin E11.9 [facility] [address] [facility] [id number] [address] [place] [phone] 16 May, 2017 Encounter for immunization Z [address] [facility] [id number] [place] [phone] 07 May, 2017 Lumbago with sciatica, unspe cified side M54.40 [facility] [address] [facility] [id number] [address] [place] [phone] 05 May, 2017 [facility] [address] [id number] [place] [phone] Apr, Dental examination Z01.20 [facility] [address] [id number] [address] [place] [phone] Apr, Lumbago with sciatica, unspe cified side M54.40 [facility] [address] [facility] [id number] [address] [place] [phone] Mar, Lumbago with sciatica, left side M54.42 [facility] [address] [facility] [id number] [address] [place] [phone] Mar, [facility] [address] [facility] [id number] [address] [place] [phone] Mar, Lumbar neuritis M54.16 [facility] [address] [facility] [id number] [address] [place] [phone] Mar, [facility] [facility] [address] [id number] [address] [place] [address] [id number] Mar, Dental examination Z01.20 [place] [address] [address] [facility] [id number] [address] [place] [phone] Mar, MELE (obstructive sleep apnea ) G47.33 ; Neuropathy involving both lower extremities G57.93 and Frequent headaches R51 [place] [address] [address] [facility] [id number] [address] [place] [phone] Mar, Lumbago with sciatica, unspe cified side M54.40 [place] [address] [address] [place] [id number] [address] [place] [id number] Feb, Lumbago with sciatica, unspe cified side M54.40 and Controlled type 2 diabetes mellitus without complication, without long-term current use of insulin E11.9 [place] [address] [address] [place] [id number] [place] [phone] January, Hypertension, benign I10 and Bilateral low back pain with sciatica, sciatica laterality unspecified M54.40 [place] [address] [address] [place] [id number] [place] [address] January, Hypertension, benign I10 ; L umbago with sciatica, unspecified side M54.40 ; Other chronic pain G89.29 and Controlled type 2 diabetes mellitus without complication, without long-term current use of insulin E11.9 [place] [address] [address] [place] [id number] [address] [place] [phone] January, Lumbar neuritis M54.16 [place] [address] [address] [place] [id number] [address] [place] [id number] January, [place] [address] [address] [place] [id number] [address] [place] [id number] Dec, Lumbago with sciatica, right side M54.41 and Lumbar neuritis M54.16 [place] [address] [address] [place] [id number] [address] [place] [phone] Dec, Lumbar neuritis M54.16 [place] [address] [address] [place] [id number] [address] [place] [id number] Dec, Lumbar neuritis M54.16 [id number] [place] [id number] [address] [place] [phone] Nov, Lumbar neuritis M54.16 ; Lum bago with sciatica, right side M54.41 ; Controlled type 2 diabetes mellitus without complication, without long-term current use of insulin E11.9 and Rash and nonspecific skin eruption R21 [place] [address] [address] [place] [id number] [address] [place] [phone] Nov, Lumbar neuritis M54.16 and P derickpeter miroslava L23.7 [place] [address] [address] [place] [id number] [address] [place] [phone] Oct, Lumbar neuritis M54.16 ; Cou ghing R05 and Mood disorder F39 [place] [address] [address] [place] [id number] [address] [place] [id number] Sep, Lumbago with sciatica, right side M54.41 [place] [address] [address] [place] [id number] [address] [place] [id number] Sep, Adjustment disorder with dis turbance of emotion F43.29 and Pain management R52 [place] [address] [address] [place] [id number] [address] [place] [phone] Sep, [place] [address] [address] [place] [id number] [address] [place] [phone] Sep, [place] [address] [address] [place] [id number] [address] [place] [id number] Sep, Controlled type 2 diabetes evens reyna without complication, without long-term current use of insulin E11.9 and Lumbago with sciatica, unspecified side M54.40 [place] [address] [address] [place] [id number] [address] [place] [id number] Aug, Controlled type 2 diabetes evens reyna without complication, without long-term current use of insulin E11.9 ; Pain in right knee M25.561 ; Pain in left knee M25.562 ; Other chronic pain G89.29 ; Lumbago with sciatica, right side M54.41 ; Neck pain M54.2 and Encounter for immunization Z23 [facility] [address] [id number] [address] [place] [id number] Jul, [facility] [address] [id number] [address] [place] [id number] Jul, Controlled type 2 diabetes m marbiell without complication, without long-term current use of insulin E11.9 [facility] [address] [id number] [address] [place] [phone] Jul, [facility] [address] [id number] [address] [place] [phone] Jul, [facility] [address] [id number] [address] [place] [id number] Jul, Lumbago with sciatica, left side M54.42 ; Lumbago with sciatica, right side M54.41 and Other chronic pain G89.29 [facility] [address] [id number] [address] [place] [id number] Jul, [facility] [address] [id number] [address] [place] [id number] Jul, [facility] [address] [id number] [address] [place] [id number] Jun, [facility] [address] [id number] [address] [place] [id number] Jun, Lumbago with sciatica, right side M54.41 and Other chronic pain G89.29 [facility] [address] [id number] [address] [place] [phone] Jun, Cervicalgia M54.2 ; Lumbago with sciatica, unspecified side M54.40 and Other chronic pain G89.29 [facility] [address] [id number] [address] [place] [id number] 15 May, 2016 Pain in right knee M25.561 ; Pain in left knee M25.562 and Other chronic pain G89.29 [facility] [address] [id number] [address] [place] [id number] May, [facility] [address] [id number] [address] [place] [id number] Apr, Other chronic pain G89.29 an d Pain in right knee M25.561 [facility] [address] [id number] [address] [place] [id number] Apr, Pain in right knee M25.561 [facility] [address] [id number] [address] [place] [id number] Mar, [facility] [address] [id number] [address] [place] [id number] Mar, Mood disorder F39 and Contro lled type 2 diabetes mellitus without complication, without long-term current use of insulin E11.9 [facility] [address] [id number] [address] [place] [address] Mar, Pain in right knee M25.561 ; Pain in left knee M25.562 ; Other chronic pain G89.29 ; Obstructive sleep apnea syndrome G47.33 ; Mood disorder F39 and Controlled type 2 diabetes mellitus without complication, without long- term current use of insulin E11.9 [facility] [address] [id number] [address] [place] [id number] Mar, [facility] [address] [id number] [address] [place] [address] [id number] Feb, Dental examination Z01.20 [facility] [address] [id number] [address] [place] [id number] Feb, [facility] [address] [id number] [address] [place] [id number] Feb, Osteoarthritis of right knee , unspecified osteoarthritis type M17.9 [facility] [address] [id number] [address] [place] [id number] January, [facility] [address] [id number] [address] [place] [address] [id number] January, Dental examination Z01.20 [facility] [address] [id number] [address] [place] [id number] January, [facility] [address] [id number] [address] [place] [address] [id number] January, Dental examination Z01.20 an d Caries K02.9 [facility] [address] [id number] [address] [place] [id number] Dec, Encounter for other preproce dural examination Z01.818 [facility] [address] [id number] [address] [place] [id number] Dec, [facility] [address] [id number] [address] [place] [phone] Dec, Knee pain M25.569 [facility] [address] [id number] [address] [place] [id number] Dec, Pain in right knee M25.561 [facility] [address] [id number] [address] [place] [id number] Dec, [facility] [address] [id number] [address] [place] [id number] Dec, [facility] [address] [id number] [address] [place] [id number] Dec, Encounter for immunization Z 23 [facility] [address] [id number] [address] [place] [id number] Dec, [facility] [address] [id number] [address] [place] [id number] Dec, [facility] [address] [id number] [address] [place] [phone] Nov, [facility] [address] [id number] [address] [place] [phone] Nov, Hypertension, benign I10 ; C ervicalgia M54.2 ; Pain in right knee M25.561 and Pain in left knee M25.562 [id number] [facility] [id number] [address] [place] [id number] Oct, [facility] [address] [facility] [id number] [address] [place] [id number] Oct, [facility] [address] [facility] [id number] [address] [place] [id number] Oct, Osteoarthritis of both knees M17.0 [place] [address] [address] [facility] [id number] [address] [place] [id number] Oct, [place] [address] [address] [facility] [id number] [address] [place] [id number] Oct, Low back pain M54.5 [place] [address] [address] [facility] [id number] [address] [place] [id number] Oct, Low back pain M54.5 ; Sciati ca, unspecified side M54.30 ; Pain in right knee M25.561 ; Pain in left knee M25.562 ; Pain in right shoulder M25.511 and Pain in left shoulder M25.512 [place] [address] [address] [facility] [id number] [address] [place] [id number] Oct, [place] [address] [address] [facility] [id number] [address] [place] [id number] Sep, Pain in right hip M25.551 [place] [address] [address] [facility] [id number] [address] [place] [id number] Sep, Acute upper respiratory infe ction, unspecified J06.9 [place] [address] [address] [facility] [id number] [address] [place] [id number] Aug, Acute upper respiratory infe ction, unspecified J06.9 and Other viral agents as the cause of diseases classified elsewhere B97.89 [place] [address] [address] [facility] [id number] [address] [place] [id number] Jul, Arthritis M19.90 [facility] [address] [id number] [address] [place] [id number] Jun, Arthritis M19.90 ; Pain in r ight hip M25.551 ; Pain in left hip M25.552 ; Bilateral low back pain with sciatica, sciatica laterality unspecified M54.40 ; Neck pain M54.2 ; Upper back pain M54.9 and Knee pain, unspecified laterality M25.569 [facility] [address] [id number] [address] [place] [id number] May, Osteoarthritis of both knees 715.96 [facility] [address] [id number] [address] [place] [id number] May, Rash 782.1 [facility] [address] [id number] [address] [place] [id number] Apr, Lumbar strain 847.2 [facility] [address] [id number] [address] [place] [phone] Apr, Rash 782.1 [facility] [address] [id number] [address] [place] [id number] Mar, Rash 782.1 [facility] [address] [facility] [id number] [address] [place] [id number] Feb, Rash 782.1 ; Hemorrhoids 455 .6 and Constipation 564.00 [facility] [address] [id number] [address] [place] [id number] Feb, Osteoarthritis of both knees 715.96 [facility] [address] [id number] [address] [place] [id number] January, [facility] [address] [id number] [address] [place] [id number] Dec, [facility] [address] [facility] [id number] [address] [place] [phone] Dec, [facility] [address] [id number] [address] [place] [id number] 13 Dec, 2014 [facility] [address] [id number] [address] [place] [address], [place] [id number] 18 Nov, 2014 [facility] [address] [id number] [address] [place] [address], [place] [id number] 18 Nov, 2014 [facility] [address] [id number] [address] [place] [address], [place] [id number] 18 Nov, 2014 [facility] [address] [id number] [address] [place] [address], [place] [id number] 18 Nov, 2014 [facility] [address] [id number] [address] [place] [address], [place] [id number] Nov, [facility] [address] [id number] [address] [place] [address], [place] [address] Nov, [facility] [address] [id number] [address] [place] [address], [place] [id number] Oct, [facility] [address] [id number] [address] [place] [address], [place] [address] Oct, [facility] [address] [id number] [address] [place] [address], [place] [id number] Oct, 2014 [facility] [address] [id number] [address] [place] [address], [place] [address] Oct, [facility] [address] [id number] [address] [place] [address], [place] [address] Oct, 2014 [facility] [address] [id number] [address] [place] [address], [place] [id number] Oct, 2014 [facility] [address] [id number] [address] [place] [address], [place] [address] Oct, 2014 [facility] [address] [id number] [address] [place] [address], [place] [id number] Oct, 2014 [facility] [address] [id number] [address] [place] [address], [place] [id number] Oct, [facility] [address] [id number] [address] [place] [address], [place] [address] Oct, [facility] [address] [id number] [address] [place] [address], [place] [id number] Oct, [facility] [address] [id number] [address] [place] [address], [place] [address] Sep, [facility] [address] [id number] [address] [place] [address], [place] [address] Sep, [facility] [address] [id number] [address] [place] [address], [place] [id number] Sep, [facility] [address] [id number] [address] [place] [address], [place] [address] Sep, [facility] [address] [id number] [address] [place] [address], [place] [id number] Sep, [facility] [address] [id number] [address] [place] [address], [place] [address] Sep, [facility] [address] [id number] [address] [place] [address], [place] [address] Aug, [facility] [address] [id number] [address] [place] [address], [place] [address] Aug, [facility] [address] [id number] [address] [place] [address], [place] [address] Aug, [facility] [address] [id number] [address] [place] [address], [place] [address] Aug, [facility] [address] [id number] [address] [place] [address], [place] [address] Aug, [facility] [address] [id number] [address] [place] [address], [place] [address] Aug, [facility] [address] [id number] [address] [place] [address], [place] [address] Aug, [facility] [address] [id number] [address] [place] [address], [place] [address] Aug, [facility] [address] [id number] [address] [place] [address], [place] [address] Aug, [facility] [address] [id number] [address] [place] [address], [place] [address] Aug, [facility] [address] [id number] [address] [place] [address], [place] [address] Jul, [facility] [address] [id number] [address] [place] [address], [place] [address] Jul, [facility] [address] [id number] [address] [place] [address], [place] [address] Jul, [facility] [address] [id number] [address] [place] [address], [place] [address] Jul, [facility] [address] [id number] [address] [place] [address], [place] [address] Jun, [facility] [address] [id number] [address] [place] [address], [place] [address] Jun, [facility] [address] [id number] [address] [place] [address], [place] [address] Jun, [facility] [address] [id number] [address] [place] [address], [place] [address] Jun, [facility] [address] [id number] [address] [place] [address], [place] [address] Jun, [facility] [address] [id number] [address] [place] [address], [place] [address] Jun, [facility] [address] [id number] [address] [place] [address], [place] [address] Jun, [facility] [address] [id number] [address] [place] [address], [place] [address] Jun, [facility] [address] [id number] [address] [place] [address], [place] [address] May, [facility] [address] [id number] [facility] [place] [address] 24 May, 2013 [facility] [address] [id number] [facility] [place] [address] 19 May, 2014 [facility] [address] [id number] [facility] [place] [address] 19 May, 2013 [facility] [address] [id number] [address] [place] [address], [place] [address] 15 May, 2014 [facility] [address] [id number] [address] [place] [address], [place] [address] 15 May, 2014 [facility] [address] [id number] [address] [place] [address], [place] [address] 15 May, 2014 [facility] [address] [id number] [address] [place] [address], [place] [address] May, [facility] [address] [id number] [address] [place] [address], [place] [address] Apr, [facility] [address] [id number] [address] [place] [address], [place] [address] Apr, [facility] [address] [id number] [address] [place] [address], [place] [address] Apr, [facility] [address] [id number] [address] [place] [address], [place] [address] Apr, [facility] [address] [id number] [address] [place] [address], [place] [address] Apr, [facility] [address] [id number] [address] [place] [address], [place] [address] Apr, [facility] [address] [id number] [address] [place] [address], [place] [address] Apr, [facility] [address] [id number] [address] [place] [address], [place] [address] Apr, [facility] [address] [id number] [address] [place] [address], [place] [address] Apr, [facility] [address] [id number] [address] [place] [address], [place] [address] Apr, [facility] [address] [id number] [address] [place] [address], [place] [address] Apr, [facility] [address] [id number] [address] [place] [address], [place] [address] Apr, [facility] [address] [id number] [address] [place] [address], [place] [address] Mar, [facility] [address] [id number] [address] [place] [address], [place] [address] Mar, [facility] [address] [id number] [address] [place] [address], [place] [address] Mar, [facility] [address] [id number] [address] [place] [address], [place] [address] Mar, [facility] [address] [id number] [address] [place] [address], [place] [address] Mar, [facility] [address] [id number] [address] [place] [address], [place] [address] Mar, [facility] [address] [id number] [address] [place] [address], [place] [address] Feb, [facility] [address] [id number] [address] [place] [address], [place] [address] Feb, [facility] [address] [id number] [address] [place] [address], [place] [id number] Feb, [facility] [address] [id number] [address] [place] [address], [place] [id number] Feb, [facility] [address] [id number] [address] [place] [address], [place] [id number] Feb, [facility] [address] [id number] [address] [place] [address], [place] [id number] Feb, [facility] [address] [id number] [facility] [place] [id number] Feb, [facility] [address] [id number] [address] [place] [address], [place] [id number] Feb, [facility] [address] [id number] [address] [place] [address], [place] [address] Feb, [facility] [address] [id number] [address] [place] [address], [place] [id number] Feb, [facility] [address] [id number] [address] [place] [address], [place] [id number] Feb, [facility] [address] [id number] [address] [place] [address], [place] [id number] Feb, [facility] [address] [id number] [address] [place] [address], [place] [id number] Feb, [facility] [address] [id number] [address] [place] [address], [place] [id number] Feb, [facility] [address] [id number] [address] [place] [address], [place] [id number] January, [facility] [address] [id number] [address] [place] [address], [place] [address] January, [facility] [address] [id number] [address] [place] [address], [place] [id number] January, [facility] [address] [id number] [address] [place] [address], [place] [id number] January, [facility] [address] [id number] [address] [place] [address], [place] [address] January, [facility] [address] [id number] [address] [place] [address], [place] [address] January, [facility] [address] [id number] [address] [place] [address], [place] [id number] Dec, [facility] [address] [id number] [address] [place] [address], [place] [id number] Dec, [facility] [address] [id number] [address] [place] [address], [place] [address] Dec, [facility] [address] [id number] [address] [place] [address], [place] [id number] Dec, [facility] [address] [id number] [address] [place] [address], [place] [address] Dec, [facility] [address] [id number] [address] [place] [address], [place] [id number] Dec, [facility] [address] [id number] [address] [place] [address], [place] [id number] Dec, [facility] [address] [id number] [address] [place] [address], [place] [id number] Dec, [facility] [address] [id number] [address] [place] [address], [place] [id number] Nov, [facility] [address] [id number] [address] [place] [address], [place] [id number] Nov, [facility] [address] [id number] [address] [place] [address], [place] [id number] Nov, [facility] [address] [id number] [address] [place] [address], [place] [id number] Nov, [facility] [address] [id number] [address] [place] [address], [place] [address] Nov, [facility] [address] [id number] [address] [place] [address], [place] [address] Nov, [facility] [address] [id number] [address] [place] [address], [place] [address] Nov, [facility] [address] [id number] [address] [place] [address], [place] [address] Nov, [facility] [address] [id number] [address] [place] [address], [place] [address] Oct, [facility] [address] [id number] [address] [place] [address], [place] [address] Oct, [facility] [address] [id number] [address] [place] [address], [place] [address] Oct, [facility] [address] [id number] [address] [place] [address], [place] [address] Oct, [facility] [address] [id number] [address] [place] [address], [place] [address] Oct, [facility] [address] [id number] [address] [place] [address], [place] [address] Oct, [facility] [address] [id number] [address] [place] [address], [place] [address] Oct, [facility] [address] [id number] [address] [place] [address], [place] [address] Oct, [facility] [address] [id number] [address] [place] [address], [place] [address] Oct, [facility] [address] [id number] [address] [place] [address], [place] [address] Oct, [facility] [address] [id number] [address] [place] [address], [place] [address] Sep, [facility] [address] [id number] [address] [place] [address], [place] [address] Sep, [facility] [address] [id number] [address] [place] [address], [place] [address] Sep, [facility] [address] [id number] [address] [place] [address], [place] [address] Sep, [facility] [address] [id number] [address] [place] [address], [place] [address] Sep, [facility] [address] [id number] [address] [place] [address], [place] [address] Sep, [facility] [address] [id number] [address] [place] [address], [place] [address] Aug, [facility] [address] [id number] [address] [place] [address], [place] [address] Aug, [facility] [address] [id number] [address] [place] [address], [place] [address] Aug, [facility] [address] [id number] [address] [place] [address], [place] [address] Aug, [facility] [address] [id number] [address] [place] [address], [place] [address] Aug, [facility] [address] [id number] [address] [place] [address], [place] [address] Aug, [facility] [address] [id number] [address] [place] [address], [place] [address] Aug, [facility] [address] [id number] [address] [place] [address], [place] [address] Aug, [facility] [address] [id number] [address] [place] [address], [place] [id number] Jul, [facility] [address] [id number] [address] [place] [address], [place] [address] Jul, [facility] [address] [id number] [address] [place] [address], [place] [address] Jul, [facility] [address] [id number] [address] [place] [address], [place] [address] Jul, [facility] [address] [id number] [address] [place] [id number] Jul, [facility] [address] [id number] [address] [place] [address], [place] [address] Jul, [facility] [address] [id number] [address] [place] [address], [place] [address] Jun, [facility] [address] [id number] [address] [place] [address], [place] [address] Jun, [facility] [address] [id number] [address] [place] [address] [place] [address] Jun, [facility] [address] [id number] [address] [place] [address], [place] [id number] 24 May, 2013 [facility] [address] [id number] [address] [place] [address], [place] [address] May, [facility] [address] [id number] [address] [place] [address], [place] [address] May, [facility] [address] [id number] [address] [place] [address], [place] [address] Apr, [facility] [address] [id number] [address] [place] [address], [place] [address] Apr, [facility] [address] [id number] [address] [place] [address], [place] [address] Apr, [facility] [address] [id number] [address] [place] [address], [place] [address] Apr, [facility] [address] [id number] [address] [place] [address], [place] [address] Mar, [facility] [address] [id number] [address] [place] [address], [place] [address] Mar, [facility] [address] [id number] [address] [place] [address], [place] [address] Mar, [facility] [address] [id number] [address] [place] [address], [place] [address] Mar, [facility] [address] [id number] [address] [place] [address], [place] [address] Feb, [facility] [address] [id number] [address] [place] [address], [place] [address] Feb, [facility] [address] [id number] [address] [place] [address], [place] [address] Feb, [facility] [address] [id number] [address] [place] [address], [place] [address] Feb, [facility] [address] [id number] [address] [place] [address], [place] [address] January, [facility] [address] [id number] [address] [place] [address], [place] [address] January, [facility] [address] [id number] [address] [place] [address], [place] [address] January, [facility] [address] [id number] [address] [place] [address], [place] [address] Nov, [facility] [address] [id number] [address] [place] [address], [place] [address] Nov, [facility] [address] [id number] [address] [place] [address], [place] [address] Oct, [facility] [address] [id number] [address] [place] [address], [place] [address] Oct, [facility] [address] [id number] [address] [place] [address], [place] [address] Oct, [facility] [address] [id number] [address] [place] [address], [place] [address] Oct, [facility] [address] [id number] [address] [place] [address], [place] [address] Sep, [facility] [address] [id number] [address] [place] [address], [place] [address] Sep, [facility] [address] [id number] [address] [place] [address], [place] [address] Sep, [facility] [address] [id number] [address] [place] [address], [place] [address] Aug, [facility] [address] [id number] [address] [place] [address], [place] [address] Aug, [facility] [address] [id number] [address] [place] [address], [place] [address] Aug, [facility] [address] [id number] [address] [place] [address], [place] [address] Aug, [facility] [address] [id number] [address] [place] [address], [place] [address] Aug, [facility] [address] [id number] [address] [place] [address], [place] [address] Aug, [facility] [address] [id number] [address] [place] [address], [place] [address] Jul, [facility] [address] [id number] [address] [place] [address], [place] [address] Jul, [facility] [address] [id number] [address] [place] [address], [place] [address] Jun, [facility] [address] [id number] [address] [place] [address], [place] [address] Jun, [facility] [address] [id number] [address] [place] [address], [place] [address] Jun, [facility] [address] [id number] [address] [place] [address], [place] [address] Apr, [facility] [address] [id number] [address] [place] [address], [place] [address] Apr, [facility] [address] [id number] [address] [place] [address], [place] [address] Mar, [facility] [address] [id number] [address] [place] [address], [place] [address] Mar, [facility] [address] [id number] [address] [place] [id number] Mar, [facility] [address] [id number] [address] [place] [address], [place] [address] Mar, [facility] [address] [id number] [address] [place] [address], [place] [address] Feb, [facility] [address] [id number] [address] [place] [address], [place] [address] Feb, [facility] [address] [id number] [address] [place] [address], [place] [address] Feb, [facility] [address] [id number] [address] [place] [address], [place] [address] January, [facility] [address] [id number] [address] [place] [address], [place] [address] January, [facility] [address] [id number] [address] [place] [address], [place] [address] January, [facility] [address] [id number] [address] [place] [address], [place] [address] January, [facility] [address] [id number] [address] [place] [address], [place] [address] Dec, [facility] [address] [id number] [address] [place] [address], [place] [address] Dec, [facility] [address] [id number] [address] [place] [address], [place] [address] Nov, [facility] [address] [id number] [address] [place] [address], [place] [address] Nov, [facility] [address] [id number] [address] [place] [address], [place] [address] 16 Oct, 2011 [facility] [address] [id number] [address] [place] [address], [place] [address] Oct, [facility] [address] [id number] [address] [place] [address], [place] [address] Sep, [facility] [address] [id number] [address] [place] [address], [place] [address] Sep, [facility] [address] [id number] [address] [place] [address], [place] [address] Sep, [facility] [address] [id number] [address] [place] [address], [place] [address] Sep, [facility] [address] [id number] [address] [place] [address], [place] [address] Aug, [facility] [address] [id number] [address] [place] [id number] 16 Aug, 2011 [facility] [address] [id number] [address] [place] [id number] Aug, [facility] [address] [id number] [address] [place] [id number] Jul, [facility] [address] [id number] [address] [place] [id number] Aug, [facility] [address] [id number] [address] [place] [id number] Aug, [facility] [address] [id number] [address] [place] [id number] Aug, [facility] [address] [id number] [address] [place] [id number] Aug, [facility] [address] [id number] [address] [place] [id number] Jul, [facility] [address] [id number] [address] [place] [id number] Jul, [facility] [address] [id number] [address] [place] [id number] Jul, [facility] [address] [id number] [address] [place] [id number] Jun, [facility] [address] [id number] [address] [place] [id number] Jun, [facility] [address] [id number] [address] [place] [id number] Jun, [facility] [address] [id number] [address] [place] [phone] Apr, [facility] [address] [id number] [address] [place] [id number] Mar, IMMUNIZATIONS No Known Immunizations SOCIAL HISTORY [...]
--- OUTSIDE RECORDS SUMMARY | 2020-03-18 15:05 | XMS REPORT ---
Author Author George BETANCOURT Organization [facility] Address [address] [place] [address] Care Team Providers Care Cab Starter Name Role Phone PHU BETANCOURT Unavailable PROBLEMS Type Condition ICD9-CM Code [id number] Code Onset Dates Condition S tatus SNOMED Code Problem Hypertension, benign I10 Active 84481100 Problem Other chronic pain G89.29 Active 8 8325486 Problem Lumbago with sciatica, unspecified side M54.40 Active 698250058 Problem Controlled type 2 diabetes m ellitus without complication, without long- term current use of insulin E11.9 Active 598804721 Problem Lumbago with sciatica, right side M54.41 Active 049041049 Problem Adjustment disorder with disturbance of emotion F4 3.29 Active 69160374 Problem MELE (obstructive sleep apnea) G47.33 Active 57368900 Problem Non morbid obesity E66.9 Active 4 86415133 Problem Hammer toe of left foot M20.42 Active 778125047 Problem Mood disorder F39 Active 233182 05 Problem Deformity of left foot M21.962 Active 525616748 Problem Lumbago with sciatica, left side M54.42 Active 746375340 Problem Erectile dysfunction due to diseases classified elsewhere N52.1 Active 473066324 Problem Obstructive sleep apnea syndrome G47.33 Active 18959572 Problem Type 2 diabetes mellitus wit h diabetic neuropathy, without long-term current use of insulin E11.40 Active 89228 006 Problem Essential hypertension I10 Active 08631645 ALLERGIES No Information ENCOUNTERS Encounter Location Date Diagnosis [facility] [id number] [place] [phone] Dec, Acute diffuse otitis externa of left ear H60.312 [facility] [address] [facility] [id number] [address] [place] [phone] Nov, Viral URI J06.9 and Flu-like symptoms R68.89 [place] [id number] [id number] [place] [id number] 09 Nov, 2019 Type 2 diabetes mellitus wit h diabetic neuropathy, without long- term current use of insulin E11.40 ; Family history of prostate cancer Z80.42 and Prostate cancer screening Z12.5 [place] [address] [id number] [place] [phone] Nov, [place] [address] [address] [id number] [place] [phone] Sep, [place] [address] [id number] [place] [id number] Aug, [place] [address] [id number] [place] [phone] Jul, Lumbago with sciatica, unspe cified side M54.40 [place] [address] [id number] [place] [id number] Jun, Lumbago with sciatica, unspe cified side M54.40 [place] [address] [address] [id number] [place] [phone] Jun, URI, acute J06.9 [place] [address] [address] [id number] [place] [phone] 26 May, 2019 Lumbago with sciatica, unspe cified side M54.40 [place] [address] [address] [id number] [place] [address] May, [place] [address] [address] [id number] [place] [id number] 12 May, 2019 Type 2 diabetes mellitus wit h diabetic neuropathy, without long- term current use of insulin E11.40 and Hammer toe of left foot M20.42 [place] [address] [id number] [place] [id number] 11 May, 2019 [place] [address] [address] [id number] [place] [phone] May, [facility] [id number] [place] [phone] May, [facility] [address] [address] Apr, Lumbago with sciatica, unspe cified side M54.40 [facility] [address] [address] Apr, [facility] [address] [address] Apr, [address] [place] [id number] [address] Apr, Hammer toe of left foot M20. 42 ; Chest pain R07.9 ; Preoperative examination Z01.818 and Morbid obesity E66.01 [place] [address] [address] Apr, Morbid obesity E66.01 ; Bron chitis J40 and High risk medications (not anticoagulants) long-term use Z79.899 [place] [address] [address] Apr, Lumbago with sciatica, unspe cified side M54.40 [facility] [address] [address] Apr, [facility] [address] [address] Mar, Lumbar neuritis M54.16 and M orbid obesity E66.01 [facility] [address] [address] Mar, [facility] [id number] [place] [address] Mar, [facility] [address] [address] Mar, Lumbago with sciatica, unspe cified side M54.40 [facility] [address] [id number] [address] [place] [phone] Mar, Morbid obesity E66.01 ; Gabe lara R05 ; 2+ pitting edema R60.9 and Controlled type 2 diabetes mellitus without complication, without long-term current use of insulin E11.9 [facility] [address] [id number] [address] [place] [id number] Feb, [facility] [address] [id number] [address] [place] [id number] Feb, Lumbago with sciatica, unspe cified side M54.40 [facility] [address] [id number] [address] [place] [address] Feb, [facility] [address] [facility] [id number] [address] [place] [id number] Feb, Controlled type 2 diabetes m ellitus without complication, without long-term current use of insulin E11.9 and Morbid obesity E66.01 [facility] [address] [id number] [address] [place] [id number] January, Deformity of left foot M21.9 62 [facility] [address] [id number] [address] [place] [id number] January, [facility] [address] [id number] [address] [place] [id number] January, Lumbago with sciatica, unspe cified side M54.40 [facility] [address] [id number] [address] [place] [address] January, [facility] [address] [facility] [id number] [address] [place] [id number] January, Lumbago with sciatica, unspe cified side M54.40 [facility] [address] [id number] [address] [place] [address] January, [facility] [address] [facility] [id number] [address] [place] [id number] January, Acute right-sided thoracic b ack pain M54.6 [facility] [address] [facility] [id number] [address] [place] [id number] January, Acute right-sided thoracic b ack pain M54.6 [facility] [id number] [place] [address] January, Chest pain, unspecified type R07.9 ; Morbid obesity E66.01 and Scabies B86 [place] [address] [facility] [id number] [address] [place] [phone] Dec, Lumbago with sciatica, unspe cified side M54.40 [facility] [id number] [place] [id number] Dec, Toenail fungus B35.1 [facility] [address] [facility] [id number] [address] [place] [id number] Dec, Toenail fungus B35.1 [facility] [id number] [place] [id number] Dec, Acute right-sided thoracic b ack pain M54.6 [facility] [address] [facility] [id number] [address] [place] [address] Dec, Lumbago with sciatica, unspe cified side M54.40 [facility] [address] [facility] [id number] [address] [place] [id number] Nov, Hammer toe of left foot M20. 42 ; Deformity of left foot M21.962 and Type 2 diabetes mellitus with diabetic neuropathy, without long-term current use of insulin E11.40 [facility] [address] [facility] [id number] [address] [place] [address] Nov, Acute right-sided thoracic b ack pain M54.6 ; Morbid obesity E66.01 and Rt flank pain R10.9 [facility] [address] [facility] [id number] [address] [place] [address] Nov, Lumbago with sciatica, unspe cified side M54.40 [facility] [address] [facility] [id number] [address] [place] [id number] Oct, Lumbago with sciatica, unspe cified side M54.40 [place] [address] [id number] [place] [id number] Sep, Lumbago with sciatica, unspe cified side M54.40 [place] [address] [place] [address] [id number] [place] [id number] Sep, [place] [address] [place] [address] [id number] [place] [address] Sep, BMI 40.0-44.9, adult Z68.41 ; Lumbago with sciatica, left side M54.42 ; Lumbago with sciatica, right side M54.41 and Other chronic pain G89.29 [place] [address] [address] [id number] [place] [address] Aug, Lumbago with sciatica, unspe cified side M54.40 [place] [address] [address] [id number] [place] [address] Aug, Type 2 diabetes mellitus wit h diabetic neuropathy, without long- term current use of insulin E11.40 ; Hammer toe of left foot M20.42 ; Hypertension, benign I10 and Frequent headaches R51 [facility] [address] [facility] [id number] [address] [place] [id number] Jul, Lumbago with sciatica, unspe cified side M54.40 [facility] [id number] [place] [id number] Jul, [facility] [id number] [place] [phone] Jul, Essential hypertension I10 a nd Controlled type 2 diabetes mellitus without complication, without long-term current use of insulin E11.9 [facility] [address] [facility] [id number] [address] [place] [id number] Jul, Essential hypertension I10 ; Controlled type 2 diabetes mellitus without complication, without long-term current use of insulin E11.9 and BMI 40.0-44.9, adult Z68.41 [facility] [address] [facility] [id number] [address] [place] [address] Jul, Dysfunction of left eustachi an tube H69.82 [facility] [address] [facility] [id number] [address] [place] [id number] Jul, Lumbago with sciatica, unspe cified side M54.40 [facility] [id number] [address] [id number] Jun, Dental examination Z01.20 [facility] [address] [facility] [id number] [address] [place] [id number] Jun, Lumbago with sciatica, unspe cified side M54.40 and Encounter for immunization Z23 [facility] [address] [facility] [id number] [address] [place] [id number] Jun, Dysfunction of left eustachi an tube H69.[address] [place] [id number] [place] [id number] Jun, Dental examination Z01.20 [facility] [address] [facility] [id number] [address] [place] [id number] Jun, Other chronic pain G89.29 [facility] [address] [id number] [address] [place] [address] [id number] Jun, Dental examination Z01.20 [facility] [address] [facility] [id number] [address] [place] [phone] Jun, [facility] [address] [facility] [id number] [address] [place] [address] Jun, Bronchitis J40 ; Dysfunction of left eustachian tube H69.82 and BMI 45.0-49.9, adult Z68.42 [facility] [address] [address] Jun, Lumbago with sciatica, unspe cified side M54.40 [facility] [id number] [place] [address] May, Type 2 diabetes mellitus wit h diabetic neuropathy, without long- term current use of insulin E11.40 and Hypertension, benign I10 [facility] [address] [address] May, Lumbago with sciatica, unspe cified side M54.40 [facility] [id number] [place] [id number] Apr, [facility] [address] [address] Apr, Controlled type 2 diabetes m ellitus without complication, without long-term current use of insulin E11.9 ; Insect bite (nonvenomous), right ankle, initial encounter S90.561A ; Local infection of the skin and subcutaneous tissue, unspecified L08.9 ; Acute swimmer''s ear of left side H60.332 and BMI 45.0-49.9, adult Z68.42 [place] [address] [place] [id number] [place] [phone] Apr, Lumbago with sciatica, unspe cified side M54.40 [facility] [id number] [place] [address] Mar, [place] [address] [address] [id number] [place] [phone] Mar, Lumbago with sciatica, unspe cified side M54.40 [place] [address] [place] [id number] [place] [id number] Feb, Lumbago with sciatica, unspe cified side M54.40 [place] [address] [place] [id number] [place] [address] Feb, BMI 45.0-49.9, adult Z68.42 and Obstructive sleep apnea syndrome G47.33 [place] [address] [place] [address] [id number] [place] [id number] January, Lumbar neuritis M54.16 [place] [address] [place] [address] [id number] [place] [address] January, Lumbago with sciatica, unspe cified side M54.40 [place] [address] [place] [id number] [place] [address] Dec, Controlled type 2 diabetes m ellitus without complication, without long-term current use of insulin E11.9 ; Erectile dysfunction due to diseases classified elsewhere N52.1 and Mood disorder F39 [place] [id number] [place] [address] Dec, Lumbago with sciatica, unspe cified side M54.40 [place] [address] [place] [address] [id number] [place] [address] Dec, Obstructive sleep apnea synd luis G47.33 [place] [address] [place] [address] [id number] [place] [address] Nov, Lumbago with sciatica, unspe cified side M54.40 ; Hypertension, benign I10 and Mood disorder F39 [place] [address] [facility] [id number] [address] [place] [address] Nov, Other chronic pain G89.29 [place] [address] [place] [id number] [place] [address] Nov, Lumbago with sciatica, unspe cified side M54.40 [facility] [address] [id number] [address] [place] [id number] Nov, Dental examination Z01.20 [place] [address] [id number] [address] [place] [address] Oct, [facility] [address] [facility] [id number] [address] [place] [address] Oct, Lumbago with sciatica, unspe cified side M54.40 [facility] [address] [facility] [id number] [address] [place] [address] Oct, Lumbago with sciatica, unspe cified side M54.40 [facility] [address] [facility] [id number] [address] [place] [id number] Oct, [facility] [address] [facility] [id number] [address] [place] [id number] Oct, [facility] [address] [facility] [id number] [address] [place] [address] [id number] Oct, Dental examination Z01.20 [facility] [address] [facility] [id number] [address] [place] [id number] Oct, [facility] [address] [facility] [id number] [address] [place] [address] Oct, Pain in right knee M25.561 [facility] [address] [facility] [id number] [address] [place] [id number] Sep, [facility] [address] [facility] [id number] [address] [place] [address] Sep, Other chronic pain G89.29 [facility] [address] [facility] [id number] [address] [place] [address] Sep, Lumbago with sciatica, unspe cified side M54.40 [facility] [address] [facility] [id number] [address] [place] [address] Sep, [facility] [address] [facility] [id number] [address] [place] [address] Sep, Viral URI J06.9 and BMI 45.0 -49.9, adult Z68.42 [facility] [address] [facility] [id number] [address] [place] [address] Aug, Foreign body hand S60.559A a nd BMI 45.0-49.9, adult Z68.42 [facility] [address] [facility] [id number] [address] [place] [phone] Aug, [facility] [address] [place] [address] [id number] [place] [id number] Aug, Lumbago with sciatica, unspe cified side M54.40 [place] [address] [place] [id number] [place] [address] Aug, Vertigo R42 ; Dysfunction of both eustachian tubes H69.83 ; Low back pain M54.5 and Other chronic pain G89.29 [facility] [id number] [place] [address] Aug, Dizziness R42 and Acute bila teral otitis media H66.93 [place] [address] [place] [id number] [place] [address] Aug, Lumbago with sciatica, unspe cified side M54.40 [facility] [address] [facility] [id number] [address] [place] [address] [id number] Jul, Dental examination Z01.20 [place] [address] [place] [id number] [place] [address] Jul, [place] [address] [facility] [id number] [address] [place] [address] Jul, [place] [address] [place] [id number] [place] [address] Jul, Dysfunction of both eustachi an tubes H69.83 [place] [address] [facility] [id number] [address] [place] [id number] 07 Jul, 2017 Controlled type 2 diabetes m maribell without complication, without long-term current use of insulin E11.9 [facility] [address] [id number] [address] [place] [id number] Jul, Controlled type 2 diabetes m ellitus without complication, without long-term current use of insulin E11.9 [facility] [address] [id number] [address] [place] [phone] Jul, Dizziness R42 and BMI 40.0-4 4.9, adult Z68.41 [facility] [address] [facility] [id number] [address] [place] [id number] Jul, Controlled type 2 diabetes m ellitus without complication, without long-term current use of insulin E11.9 [facility] [address] [id number] [address] [place] [id number] Jul, Lumbago with sciatica, unspe cified side M54.40 [facility] [address] [id number] [address] [place] [address] [id number] Jul, Dental examination Z01.20 [facility] [address] [id number] [address] [place] [id number] Jun, [facility] [id number] [place] [address] [id number] Jun, Dental examination Z01.20 [facility] [address] [id number] [address] [place] [phone] Jun, Controlled type 2 diabetes m ellitus without complication, without long-term current use of insulin E11.9 [facility] [address] [id number] [address] [place] [address] Jun, Lumbago with sciatica, unspe cified side M54.40 [facility] [address] [id number] [address] [place] [address] [id number] May, Dental examination Z01.20 [facility] [address] [id number] [address] [place] [id number] May, Controlled type 2 diabetes m ellitus without complication, without long-term current use of insulin E11.9 [facility] [address] [id number] [address] [place] [address] [id number] May, Dental examination Z01.20 [facility] [address] [facility] [id number] [address] [place] [id number] 18 May, 2017 Bronchitis J40 ; Dry mouth R 68.2 ; Non morbid obesity E66.9 and Controlled type 2 diabetes mellitus without complication, without long-term current use of insulin E11.9 [facility] [address] [id number] [address] [place] [phone] 16 May, 2017 Encounter for immunization Z 23 [facility] [address] [facility] [id number] [address] [place] [phone] 07 May, 2017 Lumbago with sciatica, unspe cified side M54.40 [facility] [address] [facility] [id number] [address] [place] [phone] 05 May, 2017 [facility] [address] [id number] [place] [address] [id number] Apr, Dental examination Z01.20 [facility] [address] [id number] [address] [place] [phone] Apr, Lumbago with sciatica, unspe cified side M54.40 [facility] [address] [id number] [address] [place] [phone] Mar, Lumbago with sciatica, left side M54.42 [facility] [address] [id number] [address] [place] [phone] Mar, [facility] [address] [id number] [address] [place] [phone] Mar, Lumbar neuritis M54.16 [facility] [address] [id number] [address] [place] [phone] Mar, [facility] [id number] [place] [id number] Mar, Dental examination Z01.20 [place] [address] [facility] [id number] [address] [place] [phone] Mar, MELE (obstructive sleep apnea ) G47.33 ; Neuropathy involving both lower extremities G57.93 and Frequent headaches R51 [place] [address] [id number] [address] [place] [phone] Mar, Lumbago with sciatica, unspe cified side M54.40 [place] [address] [place] [id number] [address] [place] [phone] Feb, Lumbago with sciatica, unspe cified side M54.40 and Controlled type 2 diabetes mellitus without complication, without long-term current use of insulin E11.9 [place] [address] [place] [id number] [address] [place] [phone] January, Hypertension, benign I10 and Bilateral low back pain with sciatica, sciatica laterality unspecified M54.40 [place] [address] [place] [id number] [address] [place] [id number] January, Hypertension, benign I10 ; L umbago with sciatica, unspecified side M54.40 ; Other chronic pain G89.29 and Controlled type 2 diabetes mellitus without complication, without long-term current use of insulin E11.9 [place] [address] [place] [id number] [address] [place] [phone] January, Lumbar neuritis M54.16 [place] [address] [facility] [id number] [address] [place] [phone] January, [place] [address] [facility] [id number] [address] [place] [address] Dec, Lumbago with sciatica, right side M54.41 and Lumbar neuritis M54.16 [place] [address] [facility] [id number] [address] [place] [address] Dec, Lumbar neuritis M54.16 [place] [address] [place] [id number] [address] [place] [address] Dec, Lumbar neuritis M54.16 [place] [address] [facility] [id number] [address] [place] [address] Nov, Lumbar neuritis M54.16 ; Lum bago with sciatica, right side M54.41 ; Controlled type 2 diabetes mellitus without complication, without long-term current use of insulin E11.9 and Rash and nonspecific skin eruption R21 [place] [address] [facility] [id number] [address] [place] [address] Nov, Lumbar neuritis M54.16 and P oison miroslava L23.7 [place] [address] [id number] [address] [place] [address] Oct, Lumbar neuritis M54.16 ; Cou ghing R05 and Mood disorder F39 [place] [address] [place] [id number] [address] [place] [address] Sep, Lumbago with sciatica, right side M54.41 [place] [address] [place] [id number] [address] [place] [id number] Sep, Adjustment disorder with dis turbance of emotion F43.29 and Pain management R52 [place] [address] [place] [id number] [address] [place] [address] Sep, [place] [address] [place] [id number] [address] [place] [id number] Sep, [place] [address] [place] [id number] [address] [place] [id number] Sep, Controlled type 2 diabetes evens reyna without complication, without long-term current use of insulin E11.9 and Lumbago with sciatica, unspecified side M54.40 [place] [address] [facility] [id number] [address] [place] [phone] Aug, Controlled type 2 diabetes evens reyna without complication, without long-term current use of insulin E11.9 ; Pain in right knee M25.561 ; Pain in left knee M25.562 ; Other chronic pain G89.29 ; Lumbago with sciatica, right side M54.41 ; Neck pain M54.2 and Encounter for immunization Z23 [facility] [address] [id number] [address] [place] [id number] Jul, [facility] [address] [id number] [address] [place] [id number] Jul, Controlled type 2 diabetes m ellitus without complication, without long-term current use of insulin E11.9 [facility] [address] [id number] [address] [place] [id number] 17 Jul, 2016 [facility] [address] [id number] [address] [place] [id number] Jul, [facility] [address] [id number] [address] [place] [phone] Jul, Lumbago with sciatica, left side M54.42 ; Lumbago with sciatica, right side M54.41 and Other chronic pain G89.29 [facility] [address] [id number] [address] [place] [address] Jul, [facility] [address] [id number] [address] [place] [id number] Jul, [facility] [address] [id number] [address] [place] [phone] Jun, [facility] [address] [id number] [address] [place] [address] Jun, Lumbago with sciatica, right side M54.41 and Other chronic pain G89.29 [facility] [address] [id number] [address] [place] [id number] Jun, Cervicalgia M54.2 ; Lumbago with sciatica, unspecified side M54.40 and Other chronic pain G89.29 [facility] [address] [id number] [address] [place] [address] 15 May, 2016 Pain in right knee M25.561 ; Pain in left knee M25.562 and Other chronic pain G89.29 [facility] [address] [id number] [address] [place] [id number] May, [facility] [address] [id number] [address] [place] [id number] Apr, Other chronic pain G89.29 an d Pain in right knee M25.561 [facility] [address] [id number] [address] [place] [address] Apr, Pain in right knee M25.561 [facility] [address] [id number] [address] [place] [phone] Mar, [facility] [address] [id number] [address] [place] [id number] Mar, Mood disorder F39 and Contro lled type 2 diabetes mellitus without complication, without long-term current use of insulin E11.9 [facility] [address] [id number] [address] [place] [id number] Mar, Pain in right knee M25.561 ; Pain in left knee M25.562 ; Other chronic pain G89.29 ; Obstructive sleep apnea syndrome G47.33 ; Mood disorder F39 and Controlled type 2 diabetes mellitus without complication, without long- term current use of insulin E11.9 [facility] [address] [id number] [address] [place] [id number] Mar, [facility] [address] [id number] [address] [place] [id number] Feb, Dental examination Z01.20 [facility] [address] [id number] [address] [place] [phone] Feb, [facility] [address] [id number] [address] [place] [id number] Feb, Osteoarthritis of right knee , unspecified osteoarthritis type M17.9 [facility] [address] [id number] [address] [place] [address] January, [facility] [address] [id number] [address] [place] [address] [id number] January, Dental examination Z01.20 [facility] [address] [id number] [address] [place] [address] January, [facility] [address] [id number] [address] [place] [address] [id number] January, Dental examination Z01.20 an d Caries K02.9 [facility] [address] [id number] [address] [place] [id number] Dec, Encounter for other preproce dural examination Z01.818 [facility] [address] [id number] [address] [place] [address] Dec, [facility] [address] [id number] [address] [place] [id number] Dec, Knee pain M25.569 [facility] [address] [id number] [address] [place] [address] Dec, Pain in right knee M25.561 [facility] [address] [id number] [address] [place] [id number] Dec, [facility] [address] [id number] [address] [place] [id number] Dec, [facility] [address] [id number] [address] [place] [id number] Dec, Encounter for immunization Z 23 [facility] [address] [id number] [address] [place] [address] Dec, [facility] [address] [id number] [address] [place] [id number] Dec, [facility] [address] [id number] [address] [place] [id number] Nov, [facility] [address] [id number] [address] [place] [address] Nov, Hypertension, benign I10 ; C ervicalgia M54.2 ; Pain in right knee M25.561 and Pain in left knee M25.562 [place] [place] [id number] [address] [place] [id number] Oct, [place] [address] [facility] [id number] [address] [place] [phone] Oct, [place] [address] [place] [id number] [address] [place] [id number] Oct, Osteoarthritis of both knees M17.0 [place] [address] [place] [id number] [address] [place] [id number] Oct, [place] [address] [place] [id number] [place] [address] Oct, Low back pain M54.5 [place] [address] [place] [id number] [place] [phone] Oct, Low back pain M54.5 ; Sciati ca, unspecified side M54.30 ; Pain in right knee M25.561 ; Pain in left knee M25.562 ; Pain in right shoulder M25.511 and Pain in left shoulder M25.512 [place] [address] [place] [id number] [address] [place] [id number] Oct, [place] [address] [place] [id number] [address] [place] [id number] Sep, Pain in right hip M25.551 [place] [address] [place] [id number] [address] [place] [phone] Sep, Acute upper respiratory infe ction, unspecified J06.9 [place] [address] [place] [id number] [address] [place] [id number] Aug, Acute upper respiratory infe ction, unspecified J06.9 and Other viral agents as the cause of diseases classified elsewhere B97.89 [place] [address] [place] [id number] [address] [place] [id number] Jul, Arthritis M19.90 [facility] [address] [id number] [address] [place] [address] Jun, Arthritis M19.90 ; Pain in r ight hip M25.551 ; Pain in left hip M25.552 ; Bilateral low back pain with sciatica, sciatica laterality unspecified M54.40 ; Neck pain M54.2 ; Upper back pain M54.9 and Knee pain, unspecified laterality M25.569 [facility] [address] [id number] [address] [place] [phone] May, Osteoarthritis of both knees 715.96 [facility] [address] [id number] [address] [place] [phone] May, Rash 782.1 [place] [address] [id number] [address] [place] [phone] Apr, Lumbar strain 847.2 [facility] [address] [id number] [address] [place] [address] Apr, Rash 782.1 [facility] [address] [id number] [address] [place] [id number] Mar, Rash 782.1 [facility] [address] [id number] [address] [place] [id number] Feb, Rash 782.1 ; Hemorrhoids 455 .6 and Constipation 564.00 [facility] [address] [id number] [address] [place] [phone] Feb, Osteoarthritis of both knees 715.96 [facility] [address] [id number] [address] [place] [phone] January, [facility] [address] [id number] [address] [place] [phone] Dec, [facility] [address] [id number] [address] [place] [id number] Dec, [facility] [address] [id number] [address] [place] [address], [place] [address] 13 Dec, 2014 [facility] [address] [id number] [address] [place] [address], [place] [address] 18 Nov, 2014 [facility] [address] [id number] [address] [place] [address], [place] [address] 18 Nov, 2014 [facility] [address] [id number] [address] [place] [address], [place] [address] 18 Nov, 2014 [facility] [address] [id number] [address] [place] [address], [place] [address] 18 Nov, 2014 [facility] [address] [id number] [address] [place] [address], [place] [address] Nov, [facility] [address] [id number] [address] [place] [address], [place] [address] Nov, [facility] [address] [id number] [address] [place] [address], [place] [address] Oct, [facility] [address] [id number] [address] [place] [address], [place] [address] Oct, [facility] [address] [id number] [address] [place] [address], [place] [address] Oct, [facility] [address] [id number] [address] [place] [address], [place] [address] Oct, [facility] [address] [id number] [address] [place] [address], [place] [address] Oct, [facility] [address] [id number] [address] [place] [address], [place] [address] Oct, [facility] [address] [id number] [address] [place] [address], [place] [address] Oct, [facility] [address] [id number] [address] [place] [id number] 12 Oct, 2014 [facility] [address] [id number] [address] [place] [id number] Oct, [facility] [address] [id number] [address] [place] [address], [place] [address] Oct, [facility] [address] [id number] [address] [place] [address], [place] [address] Oct, [facility] [address] [id number] [address] [place] [address], [place] [address] Sep, [facility] [address] [id number] [address] [place] [address], [place] [address] Sep, [facility] [address] [id number] [address] [place] [address], [place] [address] Sep, [facility] [address] [id number] [address] [place] [address], [place] [address] Sep, [facility] [address] [id number] [address] [place] [address], [place] [address] Sep, [facility] [address] [id number] [address] [place] [address], [place] [address] Sep, [facility] [address] [id number] [address] [place] [address], [place] [address] Aug, [facility] [address] [id number] [address] [place] [address], [place] [address] Aug, [facility] [address] [id number] [address] [place] [address], [place] [address] Aug, [facility] [address] [id number] [address] [place] [address], [place] [address] Aug, [facility] [address] [id number] [address] [place] [address], [place] [address] Aug, [facility] [address] [id number] [address] [place] [address], [place] [address] Aug, [facility] [address] [id number] [address] [place] [address], [place] [address] Aug, [facility] [address] [id number] [address] [place] [address], [place] [address] Aug, [facility] [address] [id number] [address] [place] [address], [place] [address] Aug, [facility] [address] [id number] [address] [place] [address], [place] [address] Aug, [facility] [address] [id number] [address] [place] [address], [place] [address] Jul, [facility] [address] [id number] [address] [place] [address], [place] [address] Jul, [facility] [address] [id number] [address] [place] [address], [place] [address] Jul, [facility] [address] [id number] [address] [place] [address], [place] [address] Jul, [facility] [address] [id number] [address] [place] [address], [place] [address] Jun, [facility] [address] [id number] [address] [place] [address], [place] [address] Jun, [facility] [address] [id number] [address] [place] [address], [place] [address] Jun, [facility] [address] [id number] [address] [place] [address], [place] [address] Jun, [facility] [address] [id number] [address] [place] [address], [place] [address] Jun, [facility] [address] [id number] [address] [place] [address], [place] [address] Jun, [facility] [address] [id number] [address] [place] [address], [place] [address] Jun, [facility] [address] [id number] [address] [place] [address], [place] [address] Jun, [facility] [address] [id number] [address] [place] [address], [place] [address] 24 May, 2014 [facility] [address] [id number] [facility] [address] 24 May, 2014 [facility] [address] [id number] [facility] [place] [address] 19 May, 2014 [facility] [address] [id number] [facility] [place] [address] 19 May, 2014 [facility] [address] [id number] [address] [place] [address], [place] [address] 15 May, 2014 [facility] [address] [id number] [address] [place] [address], [place] [address] 15 May, 2014 [facility] [address] [id number] [address] [place] [address], [place] [address] 15 May, 2014 [facility] [address] [id number] [address] [place] [address], [place] [address] May, [facility] [address] [id number] [address] [place] [address], [place] [address] Apr, [facility] [address] [id number] [address] [place] [address], [place] [address] Apr, [facility] [address] [id number] [address] [place] [address], [place] [address] Apr, [facility] [address] [id number] [address] [place] [address], [place] [address] Apr, [facility] [address] [id number] [address] [place] [address], [place] [address] Apr, [facility] [address] [id number] [address] [place] [address], [place] [address] Apr, [facility] [address] [id number] [address] [place] [address], [place] [address] Apr, [facility] [address] [id number] [address] [place] [address], [place] [address] Apr, [facility] [address] [id number] [address] [place] [address], [place] [address] Apr, [facility] [address] [id number] [address] [place] [address], [place] [address] Apr, [facility] [address] [id number] [address] [place] [address], [place] [address] Apr, [facility] [address] [id number] [address] [place] [address], [place] [address] Apr, [facility] [address] [id number] [address] [place] [address], [place] [address] Mar, [facility] [address] [id number] [address] [place] [address], [place] [address] Mar, [facility] [address] [id number] [address] [place] [address], [place] [address] Mar, [facility] [address] [id number] [address] [place] [address], [place] [address] Mar, [facility] [address] [id number] [address] [place] [address], [place] [address] Mar, [facility] [address] [id number] [address] [place] [address], [place] [address] Mar, [facility] [address] [id number] [address] [place] [address], [place] [address] Feb, [facility] [address] [id number] [address] [place] [address], [place] [address] Feb, [facility] [address] [id number] [address] [place] [address], [place] [address] Feb, [facility] [address] [id number] [address] [place] [address], [place] [address] Feb, [facility] [address] [id number] [address] [place] [address], [place] [address] Feb, [facility] [address] [id number] [address] [place] [address], [place] [address] Feb, [facility] [address] [id number] [facility] [place] [address] Feb, [facility] [address] [id number] [address] [place] [address], [place] [address] Feb, [facility] [address] [id number] [address] [place] [address], [place] [address] Feb, [facility] [address] [id number] [address] [place] [address], [place] [address] Feb, [facility] [address] [id number] [address] [place] [address], [place] [address] Feb, [facility] [address] [id number] [address] [place] [address], [place] [address] Feb, [facility] [address] [id number] [address] [place] [address], [place] [address] Feb, [facility] [address] [id number] [address] [place] [address], [place] [address] Feb, [facility] [address] [id number] [address] [place] [address], [place] [address] January, [facility] [address] [id number] [address] [place] [address], [place] [address] January, [facility] [address] [id number] [address] [place] [address], [place] [address] January, [facility] [address] [id number] [address] [place] [address], [place] [address] January, [facility] [address] [id number] [address] [place] [address], [place] [address] January, [facility] [address] [id number] [address] [place] [address], [place] [address] January, [facility] [address] [id number] [address] [place] [address], [place] [address] Dec, [facility] [address] [id number] [address] [place] [address], [place] [address] Dec, [facility] [address] [id number] [facility] [place] [address] Dec, [facility] [address] [id number] [address] [place] [address], [place] [address] Dec, [facility] [address] [id number] [address] [place] [address], [place] [address] Dec, [facility] [address] [id number] [address] [place] [address], [place] [address] Dec, [facility] [address] [id number] [address] [place] [address], [place] [address] Dec, [facility] [address] [id number] [address] [place] [address], [place] [address] Dec, [facility] [address] [id number] [address] [place] [address], [place] [address] Nov, [facility] [address] [id number] [address] [place] [address], [place] [address] Nov, [facility] [address] [id number] [address] [place] [address], [place] [address] Nov, [facility] [address] [id number] [address] [place] [address], [place] [address] Nov, [facility] [address] [id number] [address] [place] [address], [place] [address] Nov, [facility] [address] [id number] [address] [place] [address], [place] [address] Nov, [facility] [address] [id number] [address] [place] [address], [place] [address] Nov, [facility] [address] [id number] [address] [place] [address], [place] [address] Nov, [facility] [address] [id number] [address] [place] [address], [place] [address] Oct, [facility] [address] [id number] [address] [place] [address], [place] [address] Oct, [facility] [address] [id number] [address] [place] [address], [place] [address] Oct, [facility] [address] [id number] [address] [place] [address], [place] [address] Oct, [facility] [address] [id number] [address] [place] [address], [place] [address] Oct, [facility] [address] [id number] [address] [place] [address], [place] [address] Oct, [facility] [address] [id number] [address] [place] [address], [place] [address] Oct, [facility] [address] [id number] [address] [place] [address], [place] [address] Oct, [facility] [address] [id number] [address] [place] [address], [place] [address] Oct, [facility] [address] [id number] [address] [place] [address], [place] [address] Oct, [facility] [address] [id number] [address] [place] [address], [place] [address] Sep, [facility] [address] [id number] [address] [place] [address], [place] [address] Sep, [facility] [address] [id number] [address] [place] [address], [place] [address] Sep, [facility] [address] [id number] [address] [place] [address], [place] [address] Sep, [facility] [address] [id number] [address] [place] [address], [place] [address] Sep, [facility] [address] [id number] [address] [place] [address], [place] [address] Sep, [facility] [address] [id number] [address] [place] [address] Aug, [facility] [address] [id number] [address] [place] [address], [place] [address] Aug, [facility] [address] [id number] [address] [place] [address] Aug, [facility] [address] [id number] [address] [place] [address], [place] [address] Aug, [facility] [address] [id number] [address] [place] [phone] Aug, [facility] [address] [id number] [address] [place] [address], [place] [address] Aug, [facility] [address] [id number] [address] [place] [address], [place] [address] Aug, [facility] [address] [id number] [address] [place] [phone] Aug, [facility] [address] [id number] [address] [place] [address], [place] [address] Jul, [facility] [address] [id number] [address] [place] [phone] Jul, [facility] [address] [id number] [address] [place] [address] Jul, [facility] [address] [id number] [address] [place] [id number] Jul, [facility] [address] [id number] [address] [place] [phone] Jul, [facility] [address] [id number] [address] [place] [id number] Jul, [facility] [address] [id number] [address] [place] [phone] Jun, [facility] [address] [id number] [address] [place] [address], [place] [address] Jun, [facility] [address] [id number] [address] [place] [address], [place] [address] Jun, [facility] [address] [id number] [address] [place] [address], [place] [address] 24 May, 2013 [facility] [address] [id number] [address] [place] [address], [place] [address] May, [facility] [address] [id number] [address] [place] [address], [place] [address] May, [facility] [address] [id number] [address] [place] [address], [place] [address] Apr, [facility] [address] [id number] [address] [place] [address], [place] [address] Apr, [facility] [address] [id number] [address] [place] [address], [place] [address] Apr, [facility] [address] [id number] [address] [place] [address], [place] [address] Apr, [facility] [address] [id number] [address] [place] [address], [place] [address] Mar, [facility] [address] [id number] [address] [place] [address], [place] [address] Mar, [facility] [address] [id number] [address] [place] [address], [place] [address] Mar, [facility] [address] [id number] [address] [place] [address], [place] [address] Mar, [facility] [address] [id number] [address] [place] [address], [place] [address] Feb, [facility] [address] [id number] [address] [place] [address], [place] [address] Feb, [facility] [address] [id number] [address] [place] [address], [place] [address] Feb, [facility] [address] [id number] [address] [place] [address], [place] [address] Feb, [facility] [address] [id number] [address] [place] [address], [place] [address] January, [facility] [address] [id number] [address] [place] [address], [place] [address] January, [facility] [address] [id number] [address] [place] [address], [place] [address] January, [facility] [address] [id number] [address] [place] [address], [place] [address] Nov, [facility] [address] [id number] [address] [place] [address], [place] [address] Nov, [facility] [address] [id number] [address] [place] [address], [place] [address] Oct, [facility] [address] [id number] [address] [place] [address], [place] [address] Oct, [facility] [address] [id number] [address] [place] [address], [place] [address] Oct, [facility] [address] [id number] [address] [place] [address], [place] [address] Oct, [facility] [address] [id number] [address] [place] [address], [place] [address] Sep, [facility] [address] [id number] [address] [place] [address], [place] [address] Sep, [facility] [address] [id number] [address] [place] [address], [place] [address] Sep, [facility] [address] [id number] [address] [place] [address], [place] [address] Aug, [facility] [address] [id number] [address] [place] [address], [place] [address] Aug, [facility] [address] [id number] [address] [place] [address], [place] [address] Aug, [facility] [address] [id number] [address] [place] [address], [place] [address] Aug, [facility] [address] [id number] [address] [place] [address], [place] [address] Aug, [facility] [address] [id number] [address] [place] [address], [place] [address] Aug, [facility] [address] [id number] [address] [place] [address], [place] [address] Jul, [facility] [address] [id number] [address] [place] [address], [place] [address] Jul, [facility] [address] [id number] [address] [place] [address], [place] [address] Jun, [facility] [address] [id number] [address] [place] [address], [place] [address] Jun, [facility] [address] [id number] [address] [place] [address], [place] [address] Jun, [facility] [address] [id number] [address] [place] [address], [place] [address] Apr, [facility] [address] [id number] [address] [place] [address], [place] [address] Apr, [facility] [address] [id number] [address] [place] [address], [place] [address] Mar, [facility] [address] [id number] [address] [place] [address], [place] [address] Mar, [facility] [address] [id number] [address] [place] [address], [place] [address] Mar, [facility] [address] [id number] [address] [place] [address], [place] [address] Mar, [facility] [address] [id number] [address] [place] [address], [place] [address] Feb, [facility] [address] [id number] [address] [place] [address], [place] [address] Feb, [facility] [address] [id number] [address] [place] [address], [place] [address] Feb, [facility] [address] [id number] [address] [place] [address], [place] [address] January, [facility] [address] [id number] [address] [place] [address], [place] [address] January, [facility] [address] [id number] [address] [place] [address], [place] [address] January, [facility] [address] [id number] [address] [place] [address], [place] [address] January, [facility] [address] [id number] [address] [place] [address], [place] [address] Dec, [facility] [address] [id number] [address] [place] [address], [place] [address] Dec, [facility] [address] [id number] [address] [place] [address], [place] [address] Nov, [facility] [address] [id number] [address] [place] [address], [place] [address] Nov, [facility] [address] [id number] [address] [place] [address], [place] [address] Oct, [facility] [address] [id number] [address] [place] [address], [place] [address] Oct, [facility] [address] [id number] [address] [place] [address], [place] [address] Sep, [facility] [address] [id number] [address] [place] [address], [place] [address] Sep, [facility] [address] [id number] [address] [place] [address], [place] [address] Sep, [facility] [address] [id number] [address] [place] [address], [place] [address] Sep, [facility] [address] [id number] [address] [place] [address] 16 Aug, 2011 [facility] [address] [id number] [address] [place] [address], [place] [address] 16 Aug, 2011 [facility] [address] [id number] [address] [place] [phone] 09 Aug, 2011 [facility] [address] [id number] [address] [place] [address] Jul, [facility] [address] [id number] [address] [place] [address] Aug, [facility] [address] [id number] [address] [place] [address], [place] [address] Aug, [facility] [address] [id number] [address] [place] [address] Aug, [facility] [address] [id number] [address] [place] [address] Aug, [facility] [address] [id number] [address] [place] [address] Jul, [facility] [address] [id number] [address] [place] [address] Jul, [facility] [address] [id number] [address] [place] [id number] Jul, [facility] [address] [id number] [address] [place] [phone] Jun, [facility] [address] [id number] [address] [place] [phone] Jun, [facility] [address] [id number] [address] [place] [id number] Jun, [facility] [address] [id number] [address] [place] [address] Apr, [facility] [address] [id number] [address] [place] [address] Mar, IMMUNIZATIONS No Known Immunizations SOCIAL HISTORY [...]
--- OUTSIDE RECORDS SUMMARY | 2020-03-18 15:05 | XMS REPORT ---
Author Author George WAYNE Organization [facility] Address [address] [place] [address] Care Team Providers Care Traveling Sales Executive Name Role Phone REYNA WAYNE Unavailable PROBLEMS Type Condition ICD9-CM Code KZY78-RX Code Onset Dates Condition S tatus SNOMED Code Problem Hypertension, benign I10 Active 27910467 Problem Other chronic pain G89.29 Active 8 0085453 Problem Lumbago with sciatica, unspecified side M54.40 Active 888986306 Problem Controlled type 2 diabetes m ellitus without complication, without long- term current use of insulin E11.9 Active 092783100 Problem Lumbago with sciatica, right side M54.41 Active 775908067 Problem Adjustment disorder with disturbance of emotion F4 3.29 Active 69446897 Problem MELE (obstructive sleep apnea) G47.33 Active 52746077 Problem Non morbid obesity E66.9 Active 4 88218194 Problem Hammer toe of left foot M20.42 Active 295702100 Problem Mood disorder F39 Active 115354 05 Problem Deformity of left foot M21.962 Active 444493093 Problem Lumbago with sciatica, left side M54.42 Active 627983620 Problem Erectile dysfunction due to diseases classified elsewhere N52.1 Active 445581308 Problem Obstructive sleep apnea syndrome G47.33 Active 97774953 Problem Type 2 diabetes mellitus wit h diabetic neuropathy, without long-term current use of insulin E11.40 Active 12737 006 Problem Essential hypertension I10 Active 57536461 ALLERGIES No Information ENCOUNTERS Encounter Location Date Diagnosis [facility] [address] [facility] [id number] [address] [place] [id number] 13 Dec, 2019 Acute diffuse otitis externa of left ear H60.312 [facility] [address] [facility] [id number] [address] [place] [id number] 18 Nov, 2019 Viral URI J06.9 and Flu-like symptoms R68.89 [place] [address] [facility] [id number] [address] [place] [id number] 09 Nov, 2019 Type 2 diabetes mellitus wit h diabetic neuropathy, without long- term current use of insulin E11.40 ; Family history of prostate cancer Z80.42 and Prostate cancer screening Z12.5 [place] [address] [place] [id number] [address] [place] [id number] Nov, [place] [address] [place] [id number] [address] [place] [id number] Sep, [place] [address] [place] [id number] [address] [place] [id number] Aug, [place] [address] [place] [id number] [place] [address] Jul, Lumbago with sciatica, unspe cified side M54.40 [place] [address] [place] [id number] [address] [place] [id number] Jun, Lumbago with sciatica, unspe cified side M54.40 [place] [address] [place] [id number] [address] [place] [address] Jun, URI, acute J06.9 [place] [address] [place] [id number] [address] [place] [id number] May, Lumbago with sciatica, unspe cified side M54.40 [place] [address] [facility] [id number] [address] [place] [id number] May, [place] [address] [place] [id number] [address] [place] [id number] 12 May, 2019 Type 2 diabetes mellitus wit h diabetic neuropathy, without long- term current use of insulin E11.40 and Hammer toe of left foot M20.42 [place] [address] [facility] [id number] [address] [place] [id number] May, [place] [address] [place] [id number] [address] [place] [id number] May, [facility] [address] [place] [id number] [address] [place] [id number] May, [facility] [address] [place] [id number] [address] [place] [id number] Apr, Lumbago with sciatica, unspe cified side M54.40 [facility] [address] [place] [id number] [address] [place] [id number] Apr, [facility] [address] [place] [id number] [address] [place] [id number] Apr, [address] [id number] [address] Apr, Hammer toe of left foot M20. 42 ; Chest pain R07.9 ; Preoperative examination Z01.818 and Morbid obesity E66.01 [place] [address] [place] [id number] [address] [place] [id number] Apr, Morbid obesity E66.01 ; Bron chitis J40 and High risk medications (not anticoagulants) long-term use Z79.899 [place] [address] [address] [place] [id number] [address] [place] [address] Apr, Lumbago with sciatica, unspe cified side M54.40 [facility] [address] [place] [id number] [address] [place] [id number] Apr, [facility] [address] [place] [id number] [address] [place] [address] Mar, Lumbar neuritis M54.16 and M orbid obesity E66.01 [facility] [address] [place] [id number] [address] [place] [id number] Mar, [facility] [address] [place] [id number] [address] [place] [id number] Mar, [facility] [address] [place] [id number] [address] [place] [id number] Mar, Lumbago with sciatica, unspe cified side M54.40 [facility] [address] [id number] [address] [place] [address] Mar, Morbid obesity E66.01 ; Gabe lara R05 ; 2+ pitting edema R60.9 and Controlled type 2 diabetes mellitus without complication, without long-term current use of insulin E11.9 [facility] [address] [id number] [address] [place] [address] Feb, [facility] [address] [id number] [address] [place] [id number] Feb, Lumbago with sciatica, unspe cified side M54.40 [facility] [address] [id number] [address] [place] [id number] Feb, [facility] [address] [id number] [address] [place] [address] Feb, Controlled type 2 diabetes m ellitus without complication, without long-term current use of insulin E11.9 and Morbid obesity E66.01 [facility] [address] [id number] [address] [place] [address] January, Deformity of left foot M21.9 62 [facility] [address] [id number] [address] [place] [address] January, [facility] [address] [id number] [address] [place] [id number] January, Lumbago with sciatica, unspe cified side M54.40 [facility] [address] [id number] [address] [place] [id number] January, [facility] [address] [id number] [address] [place] [id number] January, Lumbago with sciatica, unspe cified side M54.40 [facility] [address] [id number] [address] [place] [id number] January, [facility] [address] [facility] [id number] [address] [place] [id number] January, Acute right-sided thoracic b ack pain M54.6 [facility] [address] [place] [id number] [address] [place] [address] January, Acute right-sided thoracic b ack pain M54.6 [facility] [address] [address] January, Chest pain, unspecified type R07.9 ; Morbid obesity E66.01 and Scabies B86 [facility] [address] [place] [id number] [address] [place] [address] Dec, Lumbago with sciatica, unspe cified side M54.40 [place] [id number] [address] Dec, Toenail fungus B35.1 [facility] [address] [place] [id number] [address] [place] [address] Dec, Toenail fungus B35.1 [facility] [address] [address] Dec, Acute right-sided thoracic b ack pain M54.6 [place] [id number] [place] [id number] [address] [place] [id number] Dec, Lumbago with sciatica, unspe cified side M54.40 [facility] [address] [place] [id number] [address] [place] [address] Nov, Hammer toe of left foot M20. 42 ; Deformity of left foot M21.962 and Type 2 diabetes mellitus with diabetic neuropathy, without long-term current use of insulin E11.40 [facility] [address] [facility] [id number] [address] [place] [id number] Nov, Acute right-sided thoracic b ack pain M54.6 ; Morbid obesity E66.01 and Rt flank pain R10.9 [place] [address] [facility] [id number] [address] [place] [id number] Nov, Lumbago with sciatica, unspe cified side M54.40 [place] [address] [place] [id number] [address] [place] [id number] Oct, Lumbago with sciatica, unspe cified side M54.40 [place] [address] [place] [id number] [place] [address] Sep, Lumbago with sciatica, unspe cified side M54.40 [place] [address] [place] [id number] [address] [place] [address] Sep, [place] [address] [place] [id number] [place] [address] Sep, BMI 40.0-44.9, adult Z68.41 ; Lumbago with sciatica, left side M54.42 ; Lumbago with sciatica, right side M54.41 and Other chronic pain G89.29 [place] [address] [place] [id number] [address] [place] [address] Aug, Lumbago with sciatica, unspe cified side M54.40 [place] [address] [place] [id number] [address] [place] [address] Aug, Type 2 diabetes mellitus wit h diabetic neuropathy, without long- term current use of insulin E11.40 ; Hammer toe of left foot M20.42 ; Hypertension, benign I10 and Frequent headaches R51 [place] [address] [place] [id number] [address] [place] [address] Jul, Lumbago with sciatica, unspe cified side M54.40 [place] [address] [place] [id number] [address] [place] [id number] Jul, [place] [address] [place] [id number] [address] [place] [address] Jul, Essential hypertension I10 a nd Controlled type 2 diabetes mellitus without complication, without long-term current use of insulin E11.9 [facility] [address] [facility] [id number] [address] [place] [id number] Jul, Essential hypertension I10 ; Controlled type 2 diabetes mellitus without complication, without long-term current use of insulin E11.9 and BMI 40.0-44.9, adult Z68.41 [facility] [address] [facility] [id number] [address] [place] [address] Jul, Dysfunction of left eustachi an tube H69.82 [facility] [address] [id number] [address] [place] [address] Jul, Lumbago with sciatica, unspe cified side M54.40 [facility] [address] [id number] [address] [place] [address] [id number] Jun, Dental examination Z01.20 [facility] [address] [facility] [id number] [address] [place] [id number] Jun, Lumbago with sciatica, unspe cified side M54.40 and Encounter for immunization Z23 [facility] [address] [facility] [id number] [address] [place] [address] Jun, Dysfunction of left eustachi an tube H69.82 [place] [id number] [facility] [id number] [place] [id number] Jun, Dental examination Z01.20 [facility] [address] [id number] [address] [place] [address] Jun, Other chronic pain G89.29 [facility] [address] [id number] [address] [place] [address] [id number] Jun, Dental examination Z01.20 [facility] [address] [id number] [address] [place] [id number] Jun, [facility] [address] [id number] [address] [place] [address] Jun, Bronchitis J40 ; Dysfunction of left eustachian tube H69.82 and BMI 45.0-49.9, adult Z68.42 [facility] [address] [place] [id number] [address] [place] [id number] Jun, Lumbago with sciatica, unspe cified side M54.40 [facility] [address] [place] [id number] [address] [place] [id number] May, Type 2 diabetes mellitus wit h diabetic neuropathy, without long- term current use of insulin E11.40 and Hypertension, benign I10 [facility] [address] [place] [id number] [address] [place] [address] May, Lumbago with sciatica, unspe cified side M54.40 [facility] [address] [place] [id number] [address] [place] [address] Apr, [facility] [address] [address] Apr, Controlled type 2 diabetes m ellitus without complication, without long-term current use of insulin E11.9 ; Insect bite (nonvenomous), right ankle, initial encounter S90.561A ; Local infection of the skin and subcutaneous tissue, unspecified L08.9 ; Acute swimmer''s ear of left side H60.332 and BMI 45.0-49.9, adult Z68.42 [place] [address] [place] [id number] [address] [place] [address] Apr, Lumbago with sciatica, unspe cified side M54.40 [facility] [address] [place] [id number] [address] [place] [address] Mar, [place] [address] [place] [id number] [place] [address] Mar, Lumbago with sciatica, unspe cified side M54.40 [facility] [address] [place] [id number] [address] [place] [address] Feb, Lumbago with sciatica, unspe cified side M54.40 [facility] [address] [facility] [id number] [address] [place] [address] Feb, BMI 45.0-49.9, adult Z68.42 and Obstructive sleep apnea syndrome G47.33 [place] [address] [place] [id number] [address] [place] [address] January, Lumbar neuritis M54.16 [place] [address] [facility] [id number] [address] [place] [address] January, Lumbago with sciatica, unspe cified side M54.40 [place] [address] [place] [id number] [place] [address] Dec, Controlled type 2 diabetes m maribell without complication, without long-term current use of insulin E11.9 ; Erectile dysfunction due to diseases classified elsewhere N52.1 and Mood disorder F39 [place] [address] [place] [id number] [address] [place] [address] Dec, Lumbago with sciatica, unspe cified side M54.40 [place] [address] [place] [id number] [address] [place] [address] Dec, Obstructive sleep apnea synd luis G47.33 [place] [address] [place] [id number] [address] [place] [address] Nov, Lumbago with sciatica, unspe cified side M54.40 ; Hypertension, benign I10 and Mood disorder F39 [facility] [address] [place] [id number] [address] [place] [address] Nov, Other chronic pain G89.29 [facility] [address] [facility] [id number] [address] [place] [address] Nov, Lumbago with sciatica, unspe cified side M54.40 [facility] [address] [id number] [address] [place] [address] [id number] Nov, Dental examination Z01.20 [facility] [address] [facility] [id number] [address] [place] [address] Oct, [facility] [address] [facility] [id number] [address] [place] [address] Oct, Lumbago with sciatica, unspe cified side M54.40 [facility] [address] [facility] [id number] [address] [place] [address] Oct, Lumbago with sciatica, unspe cified side M54.40 [facility] [address] [facility] [id number] [address] [place] [address] Oct, [facility] [address] [facility] [id number] [address] [place] [id number] Oct, [facility] [address] [facility] [id number] [address] [place] [address] [phone] Oct, Dental examination Z01.20 [facility] [address] [facility] [id number] [address] [place] [id number] Oct, [facility] [address] [facility] [id number] [address] [place] [address] Oct, Pain in right knee M25.561 [facility] [address] [facility] [id number] [address] [place] [address] Sep, [facility] [address] [facility] [id number] [address] [place] [address] Sep, Other chronic pain G89.29 [facility] [address] [facility] [id number] [address] [place] [address] Sep, Lumbago with sciatica, unspe cified side M54.40 [facility] [address] [facility] [id number] [address] [place] [id number] Sep, [facility] [address] [facility] [id number] [address] [place] [id number] Sep, Viral URI J06.9 and BMI 45.0 -49.9, adult Z68.42 [facility] [address] [facility] [id number] [address] [place] [address] Aug, Foreign body hand S60.559A a nd BMI 45.0-49.9, adult Z68.42 [facility] [address] [facility] [id number] [address] [place] [id number] Aug, [facility] [address] [place] [id number] [address] [place] [id number] Aug, Lumbago with sciatica, unspe cified side M54.40 [facility] [address] [facility] [id number] [address] [place] [address] Aug, Vertigo R42 ; Dysfunction of both eustachian tubes H69.83 ; Low back pain M54.5 and Other chronic pain G89.29 [facility] [address] [facility] [id number] [address] [place] [address] Aug, Dizziness R42 and Acute bila teral otitis media H66.93 [facility] [address] [facility] [id number] [address] [place] [address] Aug, Lumbago with sciatica, unspe cified side M54.40 [facility] [address] [facility] [id number] [address] [place] [address] [id number] Jul, Dental examination Z01.20 [facility] [address] [place] [id number] [address] [place] [address] Jul, [facility] [address] [facility] [id number] [address] [place] [address] Jul, [facility] [address] [facility] [id number] [address] [place] [id number] Jul, Dysfunction of both eustachi an tubes H69.83 [facility] [address] [facility] [id number] [address] [place] [id number] 07 Jul, 2017 Controlled type 2 diabetes m taraitus without complication, without long-term current use of insulin E11.9 [facility] [address] [id number] [address] [place] [id number] Jul, Controlled type 2 diabetes m ellitus without complication, without long-term current use of insulin E11.9 [facility] [address] [id number] [address] [place] [id number] Jul, Dizziness R42 and BMI 40.0-4 4.9, adult Z68.41 [facility] [address] [facility] [id number] [address] [place] [address] Jul, Controlled type 2 diabetes m ellitus without complication, without long-term current use of insulin E11.9 [facility] [address] [facility] [id number] [address] [place] [phone] Jul, Lumbago with sciatica, unspe cified side M54.40 [facility] [address] [id number] [place] [address] [id number] Jul, Dental examination Z01.20 [facility] [address] [id number] [address] [place] [id number] Jun, [facility] [address] [id number] [place] [address] [id number] Jun, Dental examination Z01.20 [facility] [address] [facility] [id number] [address] [place] [id number] Jun, Controlled type 2 diabetes m ellitus without complication, without long-term current use of insulin E11.9 [facility] [address] [id number] [address] [place] [id number] Jun, Lumbago with sciatica, unspe cified side M54.40 [facility] [address] [place] [id number] [place] [address] [id number] May, Dental examination Z01.20 [facility] [address] [id number] [address] [place] [id number] May, Controlled type 2 diabetes m ellitus without complication, without long-term current use of insulin E11.9 [facility] [address] [id number] [address] [place] [address] [id number] 19 May, 2017 Dental examination Z01.20 [facility] [address] [facility] [id number] [address] [place] [phone] 18 May, 2017 Bronchitis J40 ; Dry mouth R 68.2 ; Non morbid obesity E66.9 and Controlled type 2 diabetes mellitus without complication, without long-term current use of insulin E11.9 [facility] [address] [facility] [id number] [address] [place] [phone] 16 May, 2017 Encounter for immunization Z 23 [place] [address] [address] [facility] [id number] [place] [phone] 07 May, 2017 Lumbago with sciatica, unspe cified side M54.40 [facility] [address] [facility] [id number] [address] [place] [phone] 05 May, 2017 [facility] [id number] [place] [phone] Apr, Dental examination Z01.20 [facility] [address] [id number] [address] [place] [phone] Apr, Lumbago with sciatica, unspe cified side M54.40 [facility] [address] [facility] [id number] [address] [place] [phone] Mar, Lumbago with sciatica, left side M54.42 [facility] [address] [facility] [id number] [address] [place] [phone] Mar, [facility] [address] [facility] [id number] [address] [place] [phone] Mar, Lumbar neuritis M54.16 [facility] [address] [facility] [id number] [address] [place] [phone] Mar, [facility] [address] [id number] [address] [place] [id number] Mar, Dental examination Z01.20 [place] [address] [address] [facility] [id number] [address] [place] [phone] Mar, MELE (obstructive sleep apnea ) G47.33 ; Neuropathy involving both lower extremities G57.93 and Frequent headaches R51 [place] [address] [address] [facility] [id number] [address] [place] [phone] Mar, Lumbago with sciatica, unspe cified side M54.40 [place] [address] [address] [place] [id number] [address] [place] [phone] Feb, Lumbago with sciatica, unspe cified side M54.40 and Controlled type 2 diabetes mellitus without complication, without long-term current use of insulin E11.9 [place] [address] [place] [id number] [place] [address] January, Hypertension, benign I10 and Bilateral low back pain with sciatica, sciatica laterality unspecified M54.40 [place] [address] [place] [id number] [place] [address] January, Hypertension, benign I10 ; L umbago with sciatica, unspecified side M54.40 ; Other chronic pain G89.29 and Controlled type 2 diabetes mellitus without complication, without long-term current use of insulin E11.9 [place] [address] [place] [id number] [address] [place] [address] January, Lumbar neuritis M54.16 [place] [address] [place] [id number] [address] [place] [address] January, [place] [address] [place] [id number] [address] [place] [address] Dec, Lumbago with sciatica, right side M54.41 and Lumbar neuritis M54.16 [place] [address] [place] [id number] [address] [place] [address] Dec, Lumbar neuritis M54.16 [place] [address] [place] [id number] [address] [place] [address] Dec, Lumbar neuritis M54.16 [place] [id number] [place] [id number] [address] [place] [address] Nov, Lumbar neuritis M54.16 ; Lum bago with sciatica, right side M54.41 ; Controlled type 2 diabetes mellitus without complication, without long-term current use of insulin E11.9 and Rash and nonspecific skin eruption R21 [place] [address] [place] [id number] [address] [place] [address] Nov, Lumbar neuritis M54.16 and P derickpeter miroslava L23.7 [place] [address] [place] [id number] [address] [place] [address] Oct, Lumbar neuritis M54.16 ; Cou ghing R05 and Mood disorder F39 [place] [address] [place] [id number] [address] [place] [address] Sep, Lumbago with sciatica, right side M54.41 [place] [address] [place] [id number] [address] [place] [address] Sep, Adjustment disorder with dis turbance of emotion F43.29 and Pain management R52 [place] [address] [place] [id number] [address] [place] [address] Sep, [place] [address] [place] [id number] [address] [place] [address] Sep, [place] [address] [place] [id number] [address] [place] [address] Sep, Controlled type 2 diabetes evens reyna without complication, without long-term current use of insulin E11.9 and Lumbago with sciatica, unspecified side M54.40 [place] [address] [place] [id number] [address] [place] [address] Aug, Controlled type 2 diabetes evens reyna without complication, without long-term current use of insulin E11.9 ; Pain in right knee M25.561 ; Pain in left knee M25.562 ; Other chronic pain G89.29 ; Lumbago with sciatica, right side M54.41 ; Neck pain M54.2 and Encounter for immunization Z23 [facility] [address] [id number] [address] [place] [address] Jul, [facility] [address] [id number] [address] [place] [address] Jul, Controlled type 2 diabetes m maribell without complication, without long-term current use of insulin E11.9 [facility] [address] [id number] [address] [place] [address] Jul, [facility] [address] [id number] [address] [place] [address] Jul, [facility] [address] [id number] [address] [place] [address] Jul, Lumbago with sciatica, left side M54.42 ; Lumbago with sciatica, right side M54.41 and Other chronic pain G89.29 [facility] [address] [id number] [address] [place] [address] Jul, [facility] [address] [id number] [address] [place] [address] Jul, [facility] [address] [id number] [address] [place] [address] Jun, [facility] [address] [id number] [address] [place] [address] Jun, Lumbago with sciatica, right side M54.41 and Other chronic pain G89.29 [facility] [address] [id number] [address] [place] [address] Jun, Cervicalgia M54.2 ; Lumbago with sciatica, unspecified side M54.40 and Other chronic pain G89.29 [facility] [address] [id number] [address] [place] [address] 15 May, 2016 Pain in right knee M25.561 ; Pain in left knee M25.562 and Other chronic pain G89.29 [facility] [address] [id number] [address] [place] [address] May, [facility] [address] [id number] [address] [place] [address] Apr, Other chronic pain G89.29 an d Pain in right knee M25.561 [facility] [address] [id number] [address] [place] [address] Apr, Pain in right knee M25.561 [facility] [address] [id number] [address] [place] [address] Mar, [facility] [address] [id number] [address] [place] [address] Mar, Mood disorder F39 and Contro lled type 2 diabetes mellitus without complication, without long-term current use of insulin E11.9 [facility] [address] [id number] [address] [place] [address] Mar, Pain in right knee M25.561 ; Pain in left knee M25.562 ; Other chronic pain G89.29 ; Obstructive sleep apnea syndrome G47.33 ; Mood disorder F39 and Controlled type 2 diabetes mellitus without complication, without long- term current use of insulin E11.9 [facility] [address] [id number] [address] [place] [address] Mar, [facility] [address] [id number] [address] [place] [id number] Feb, Dental examination Z01.20 [facility] [address] [id number] [address] [place] [address] Feb, [facility] [address] [id number] [address] [place] [address] Feb, Osteoarthritis of right knee , unspecified osteoarthritis type M17.9 [facility] [address] [id number] [address] [place] [address] January, [facility] [address] [id number] [address] [place] [address] [id number] January, Dental examination Z01.20 [facility] [address] [id number] [address] [place] [address] January, [facility] [address] [id number] [address] [place] [address] [id number] January, Dental examination Z01.20 an d Caries K02.9 [facility] [address] [id number] [address] [place] [address] Dec, Encounter for other preproce dural examination Z01.818 [facility] [address] [id number] [address] [place] [address] Dec, [facility] [address] [id number] [address] [place] [address] Dec, Knee pain M25.569 [facility] [address] [id number] [address] [place] [address] Dec, Pain in right knee M25.561 [facility] [address] [id number] [address] [place] [address] Dec, [facility] [address] [id number] [address] [place] [address] Dec, [facility] [address] [id number] [address] [place] [address] Dec, Encounter for immunization Z 23 [facility] [address] [id number] [address] [place] [id number] Dec, [facility] [address] [id number] [address] [place] [address] Dec, [facility] [address] [id number] [address] [place] [address] Nov, [facility] [address] [id number] [address] [place] [address] Nov, Hypertension, benign I10 ; C ervicalgia M54.2 ; Pain in right knee M25.561 and Pain in left knee M25.562 [place] [id number] [facility] [id number] [address] [place] [address] Oct, [facility] [address] [facility] [id number] [address] [place] [address] Oct, [facility] [address] [facility] [id number] [address] [place] [address] Oct, Osteoarthritis of both knees M17.0 [place] [address] [facility] [id number] [address] [place] [address] Oct, [place] [address] [facility] [id number] [address] [place] [address] Oct, Low back pain M54.5 [place] [address] [facility] [id number] [address] [place] [address] Oct, Low back pain M54.5 ; Sciati ca, unspecified side M54.30 ; Pain in right knee M25.561 ; Pain in left knee M25.562 ; Pain in right shoulder M25.511 and Pain in left shoulder M25.512 [place] [address] [facility] [id number] [address] [place] [address] Oct, [place] [address] [facility] [id number] [address] [place] [address] Sep, Pain in right hip M25.551 [place] [address] [facility] [id number] [address] [place] [id number] Sep, Acute upper respiratory infe ction, unspecified J06.9 [place] [address] [facility] [id number] [address] [place] [address] Aug, Acute upper respiratory infe ction, unspecified J06.9 and Other viral agents as the cause of diseases classified elsewhere B97.89 [place] [address] [facility] [id number] [address] [place] [address] Jul, Arthritis M19.90 [facility] [address] [id number] [address] [place] [address] Jun, Arthritis M19.90 ; Pain in r ight hip M25.551 ; Pain in left hip M25.552 ; Bilateral low back pain with sciatica, sciatica laterality unspecified M54.40 ; Neck pain M54.2 ; Upper back pain M54.9 and Knee pain, unspecified laterality M25.569 [facility] [address] [id number] [address] [place] [address] May, Osteoarthritis of both knees 715.96 [facility] [address] [id number] [address] [place] [address] May, Rash 782.1 [facility] [address] [id number] [address] [place] [address] Apr, Lumbar strain 847.2 [facility] [address] [id number] [address] [place] [address] Apr, Rash 782.1 [facility] [address] [id number] [address] [place] [address] Mar, Rash 782.1 [facility] [address] [facility] [id number] [address] [place] [id number] Feb, Rash 782.1 ; Hemorrhoids 455 .6 and Constipation 564.00 [facility] [address] [id number] [address] [place] [address] Feb, Osteoarthritis of both knees 715.96 [facility] [address] [id number] [address] [place] [address] January, [facility] [address] [id number] [address] [place] [id number] Dec, [facility] [address] [facility] [id number] [address] [place] [address] Dec, [facility] [address] [id number] [address] [place] [id number] 13 Dec, 2014 [facility] [address] [id number] [address] [place] [address], [place] [address] 18 Nov, 2014 [facility] [address] [id number] [address] [place] [address], [place] [address] 18 Nov, 2014 [facility] [address] [id number] [address] [place] [address], [place] [address] 18 Nov, 2014 [facility] [address] [id number] [address] [place] [address], [place] [address] 18 Nov, 2014 [facility] [address] [id number] [address] [place] [address], [place] [address] Nov, [facility] [address] [id number] [address] [place] [address], [place] [address] Nov, [facility] [address] [id number] [address] [place] [address], [place] [address] Oct, [facility] [address] [id number] [address] [place] [address], [place] [address] Oct, [facility] [address] [id number] [address] [place] [address], [place] [address] Oct, 2014 [facility] [address] [id number] [address] [place] [address], [place] [address] Oct, [facility] [address] [id number] [address] [place] [address], [place] [address] Oct, 2014 [facility] [address] [id number] [address] [place] [address], [place] [address] Oct, 2014 [facility] [address] [id number] [address] [place] [address], [place] [address] Oct, 2014 [facility] [address] [id number] [address] [place] [address], [place] [address] Oct, 2014 [facility] [address] [id number] [address] [place] [address], [place] [address] Oct, [facility] [address] [id number] [address] [place] [address], [place] [address] Oct, [facility] [address] [id number] [address] [place] [address], [place] [address] Oct, [facility] [address] [id number] [address] [place] [address], [place] [address] Sep, [facility] [address] [id number] [address] [place] [address], [place] [address] Sep, [facility] [address] [id number] [address] [place] [address], [place] [address] Sep, [facility] [address] [id number] [address] [place] [address], [place] [address] Sep, [facility] [address] [id number] [address] [place] [address], [place] [address] Sep, [facility] [address] [id number] [address] [place] [address], [place] [address] Sep, [facility] [address] [id number] [address] [place] [address], [place] [address] Aug, [facility] [address] [id number] [address] [place] [address], [place] [address] Aug, [facility] [address] [id number] [address] [place] [address], [place] [address] Aug, [facility] [address] [id number] [address] [place] [address], [place] [address] Aug, [facility] [address] [id number] [address] [place] [address], [place] [address] Aug, [facility] [address] [id number] [address] [place] [address], [place] [address] Aug, [facility] [address] [id number] [address] [place] [address], [place] [address] Aug, [facility] [address] [id number] [address] [place] [address], [place] [address] Aug, [facility] [address] [id number] [address] [place] [address], [place] [address] Aug, [facility] [address] [id number] [address] [place] [address], [place] [address] Aug, [facility] [address] [id number] [address] [place] [address], [place] [address] Jul, [facility] [address] [id number] [address] [place] [address], [place] [address] Jul, [facility] [address] [id number] [address] [place] [address], [place] [address] Jul, [facility] [address] [id number] [address] [place] [address], [place] [address] Jul, [facility] [address] [id number] [address] [place] [address], [place] [address] Jun, [facility] [address] [id number] [address] [place] [address], [place] [address] Jun, [facility] [address] [id number] [address] [place] [address], [place] [address] Jun, [facility] [address] [id number] [address] [place] [address], [place] [address] Jun, [facility] [address] [id number] [address] [place] [address], [place] [address] Jun, [facility] [address] [id number] [address] [place] [address], [place] [address] Jun, [facility] [address] [id number] [address] [place] [address], [place] [address] Jun, [facility] [address] [id number] [address] [place] [address], [place] [address] Jun, [facility] [address] [id number] [address] [place] [address], [place] [address] May, [facility] [address] [id number] [facility] [address] 24 May, 2013 [facility] [address] [id number] [facility] [address] 19 May, 2014 [facility] [address] [id number] [facility] [address] 19 May, 2013 [facility] [address] [id number] [address] [place] [address], [place] [address] 15 May, 2014 [facility] [address] [id number] [address] [place] [address], [place] [address] 15 May, 2014 [facility] [address] [id number] [address] [place] [address], [place] [address] 15 May, 2014 [facility] [address] [id number] [address] [place] [address], [place] [address] May, [facility] [address] [id number] [address] [place] [address], [place] [address] Apr, [facility] [address] [id number] [address] [place] [address], [place] [address] Apr, [facility] [address] [id number] [address] [place] [address], [place] [address] Apr, [facility] [address] [id number] [address] [place] [address], [place] [address] Apr, [facility] [address] [id number] [address] [place] [address], [place] [address] Apr, [facility] [address] [id number] [address] [place] [address], [place] [address] Apr, [facility] [address] [id number] [address] [place] [address], [place] [address] Apr, [facility] [address] [id number] [address] [place] [address], [place] [address] Apr, [facility] [address] [id number] [address] [place] [address], [place] [address] Apr, [facility] [address] [id number] [address] [place] [address], [place] [address] Apr, [facility] [address] [id number] [address] [place] [address], [place] [address] Apr, [facility] [address] [id number] [address] [place] [address], [place] [address] Apr, [facility] [address] [id number] [address] [place] [address], [place] [address] Mar, [facility] [address] [id number] [address] [place] [address], [place] [address] Mar, [facility] [address] [id number] [address] [place] [address], [place] [address] Mar, [facility] [address] [id number] [address] [place] [address], [place] [address] Mar, [facility] [address] [id number] [address] [place] [address], [place] [address] Mar, [facility] [address] [id number] [address] [place] [address], [place] [address] Mar, [facility] [address] [id number] [address] [place] [address], [place] [address] Feb, [facility] [address] [id number] [address] [place] [address], [place] [address] Feb, [facility] [address] [id number] [address] [place] [address], [place] [address] Feb, [facility] [address] [id number] [address] [place] [address], [place] [address] Feb, [facility] [address] [id number] [address] [place] [address], [place] [address] Feb, [facility] [address] [id number] [address] [place] [address], [place] [address] Feb, [facility] [address] [id number] [facility] [address] Feb, [facility] [address] [id number] [address] [place] [address], [place] [address] Feb, [facility] [address] [id number] [address] [place] [address], [place] [address] Feb, [facility] [address] [id number] [address] [place] [address], [place] [address] Feb, [facility] [address] [id number] [address] [place] [address], [place] [address] Feb, [facility] [address] [id number] [address] [place] [address], [place] [address] Feb, [facility] [address] [id number] [address] [place] [address], [place] [address] Feb, [facility] [address] [id number] [address] [place] [address], [place] [address] Feb, [facility] [address] [id number] [address] [place] [address], [place] [address] January, [facility] [address] [id number] [address] [place] [address], [place] [address] January, [facility] [address] [id number] [address] [place] [address], [place] [address] January, [facility] [address] [id number] [address] [place] [address], [place] [address] January, [facility] [address] [id number] [address] [place] [address], [place] [address] January, [facility] [address] [id number] [address] [place] [address], [place] [address] January, [facility] [address] [id number] [address] [place] [address], [place] [address] Dec, [facility] [address] [id number] [address] [place] [address], [place] [address] Dec, [facility] [address] [id number] [address] [place] [address], [place] [address] Dec, [facility] [address] [id number] [address] [place] [address], [place] [address] Dec, [facility] [address] [id number] [address] [place] [address], [place] [address] Dec, [facility] [address] [id number] [address] [place] [address], [place] [address] Dec, [facility] [address] [id number] [address] [place] [address], [place] [address] Dec, [facility] [address] [id number] [address] [place] [address], [place] [address] Dec, [facility] [address] [id number] [address] [place] [address], [place] [address] Nov, [facility] [address] [id number] [address] [place] [address], [place] [address] Nov, [facility] [address] [id number] [address] [place] [address], [place] [address] Nov, [facility] [address] [id number] [address] [place] [address], [place] [address] Nov, [facility] [address] [id number] [address] [place] [address], [place] [address] Nov, [facility] [address] [id number] [address] [place] [address], [place] [address] Nov, [facility] [address] [id number] [address] [place] [address], [place] [address] Nov, [facility] [address] [id number] [address] [place] [address], [place] [address] Nov, [facility] [address] [id number] [address] [place] [address], [place] [address] Oct, [facility] [address] [id number] [address] [place] [address], [place] [address] Oct, [facility] [address] [id number] [address] [place] [address], [place] [address] Oct, [facility] [address] [id number] [address] [place] [address], [place] [address] Oct, [facility] [address] [id number] [address] [place] [address], [place] [address] Oct, [facility] [address] [id number] [address] [place] [address], [place] [address] Oct, [facility] [address] [id number] [address] [place] [address], [place] [address] Oct, [facility] [address] [id number] [address] [place] [address], [place] [address] Oct, [facility] [address] [id number] [address] [place] [address], [place] [address] Oct, [facility] [address] [id number] [address] [place] [address], [place] [address] Oct, [facility] [address] [id number] [address] [place] [address], [place] [address] Sep, [facility] [address] [id number] [address] [place] [address], [place] [address] Sep, [facility] [address] [id number] [address] [place] [address], [place] [address] Sep, [facility] [address] [id number] [address] [place] [address], [place] [address] Sep, [facility] [address] [id number] [address] [place] [address], [place] [address] Sep, [facility] [address] [id number] [address] [place] [address], [place] [address] Sep, [facility] [address] [id number] [address] [place] [address], [place] [address] Aug, [facility] [address] [id number] [address] [place] [address], [place] [address] Aug, [facility] [address] [id number] [address] [place] [address], [place] [address] Aug, [facility] [address] [id number] [address] [place] [address], [place] [address] Aug, [facility] [address] [id number] [address] [place] [address], [place] [address] Aug, [facility] [address] [id number] [address] [place] [address], [place] [address] Aug, [facility] [address] [id number] [address] [place] [address], [place] [address] Aug, [facility] [address] [id number] [address] [place] [address], [place] [address] Aug, [facility] [address] [id number] [address] [place] [address], [place] [address] Jul, [facility] [address] [id number] [address] [place] [address], [place] [address] Jul, [facility] [address] [id number] [address] [place] [address], [place] [address] Jul, [facility] [address] [id number] [address] [place] [address], [place] [address] Jul, [facility] [address] [id number] [address] [place] [address] Jul, [facility] [address] [id number] [address] [place] [address], [place] [address] Jul, [facility] [address] [id number] [address] [place] [address], [place] [address] Jun, [facility] [address] [id number] [address] [place] [address], [place] [address] Jun, [facility] [address] [id number] [address] [place] [address] [place] [address] Jun, [facility] [address] [id number] [address] [place] [address], [place] [address] 24 May, 2013 [facility] [address] [id number] [address] [place] [address], [place] [address] May, [facility] [address] [id number] [address] [place] [address], [place] [address] May, [facility] [address] [id number] [address] [place] [address], [place] [address] Apr, [facility] [address] [id number] [address] [place] [address], [place] [address] Apr, [facility] [address] [id number] [address] [place] [address], [place] [address] Apr, [facility] [address] [id number] [address] [place] [address], [place] [address] Apr, [facility] [address] [id number] [address] [place] [address], [place] [address] Mar, [facility] [address] [id number] [address] [place] [address], [place] [address] Mar, [facility] [address] [id number] [address] [place] [address], [place] [address] Mar, [facility] [address] [id number] [address] [place] [address], [place] [address] Mar, [facility] [address] [id number] [address] [place] [address], [place] [address] Feb, [facility] [address] [id number] [address] [place] [address], [place] [address] Feb, [facility] [address] [id number] [address] [place] [address], [place] [address] Feb, [facility] [address] [id number] [address] [place] [address], [place] [address] Feb, [facility] [address] [id number] [address] [place] [address], [place] [address] January, [facility] [address] [id number] [address] [place] [address], [place] [address] January, [facility] [address] [id number] [address] [place] [address], [place] [address] January, [facility] [address] [id number] [address] [place] [address], [place] [address] Nov, [facility] [address] [id number] [address] [place] [address], [place] [address] Nov, [facility] [address] [id number] [address] [place] [address], [place] [address] Oct, [facility] [address] [id number] [address] [place] [address], [place] [address] Oct, [facility] [address] [id number] [address] [place] [address], [place] [address] Oct, [facility] [address] [id number] [address] [place] [address], [place] [address] Oct, [facility] [address] [id number] [address] [place] [address], [place] [address] Sep, [facility] [address] [id number] [address] [place] [address], [place] [address] Sep, [facility] [address] [id number] [address] [place] [address], [place] [address] Sep, [facility] [address] [id number] [address] [place] [address], [place] [address] Aug, [facility] [address] [id number] [address] [place] [address], [place] [address] Aug, [facility] [address] [id number] [address] [place] [address], [place] [address] Aug, [facility] [address] [id number] [address] [place] [address], [place] [address] Aug, [facility] [address] [id number] [address] [place] [address], [place] [address] Aug, [facility] [address] [id number] [address] [place] [address], [place] [address] Aug, [facility] [address] [id number] [address] [place] [address], [place] [address] Jul, [facility] [address] [id number] [address] [place] [address], [place] [address] Jul, [facility] [address] [id number] [address] [place] [address], [place] [address] Jun, [facility] [address] [id number] [address] [place] [address], [place] [address] Jun, [facility] [address] [id number] [address] [place] [address], [place] [address] Jun, [facility] [address] [id number] [address] [place] [address], [place] [address] Apr, [facility] [address] [id number] [address] [place] [address], [place] [address] Apr, [facility] [address] [id number] [address] [place] [address], [place] [address] Mar, [facility] [address] [id number] [address] [place] [address], [place] [address] Mar, [facility] [address] [id number] [address] [place] [address] Mar, [facility] [address] [id number] [address] [place] [address], [place] [address] Mar, [facility] [address] [id number] [address] [place] [address], [place] [address] Feb, [facility] [address] [id number] [address] [place] [address], [place] [address] Feb, [facility] [address] [id number] [address] [place] [address], [place] [address] Feb, [facility] [address] [id number] [address] [place] [address], [place] [address] January, [facility] [address] [id number] [address] [place] [address], [place] [address] January, [facility] [address] [id number] [address] [place] [address], [place] [address] January, [facility] [address] [id number] [address] [place] [address], [place] [address] January, [facility] [address] [id number] [address] [place] [address], [place] [address] Dec, [facility] [address] [id number] [address] [place] [address], [place] [address] Dec, [facility] [address] [id number] [address] [place] [address], [place] [address] Nov, [facility] [address] [id number] [address] [place] [address], [place] [address] Nov, [facility] [address] [id number] [address] [place] [address], [place] [address] 16 Oct, 2011 [facility] [address] [id number] [address] [place] [address], [place] [address] Oct, [facility] [address] [id number] [address] [place] [address], [place] [address] Sep, [facility] [address] [id number] [address] [place] [address], [place] [address] Sep, [facility] [address] [id number] [address] [place] [address], [place] [address] Sep, [facility] [address] [id number] [address] [address], [place] [address] Sep, [facility] [address] [id number] [address] [place] [address], [place] [address] Aug, [facility] [address] [id number] [address] [place] [id number] 16 Aug, 2011 [facility] [address] [id number] [address] [place] [address] Aug, [facility] [address] [id number] [address] [place] [address] Jul, [facility] [address] [id number] [address] [place] [address] Aug, [facility] [address] [id number] [address] [place] [address] Aug, [facility] [address] [id number] [address] [place] [address] Aug, [facility] [address] [id number] [address] [place] [address] Aug, [facility] [address] [id number] [address] [place] [address] Jul, [facility] [address] [id number] [address] [place] [address] Jul, [facility] [address] [id number] [address] [place] [address] Jul, [facility] [address] [id number] [address] [place] [address] Jun, [facility] [address] [id number] [address] [place] [address] Jun, [facility] [address] [id number] [address] [place] [id number] Jun, [facility] [address] [id number] [address] [place] [address] Apr, [facility] [address] [id number] [address] [place] [address] Mar, IMMUNIZATIONS No Known Immunizations SOCIAL HISTORY [...]
--- OUTSIDE RECORDS SUMMARY | 2020-03-18 15:06 | XMS REPORT ---
Author Author Araseli George Doctor Organization [facility] Address Unknown Phone Unavailable Care Team Providers Care Credit Processor Name Role Phone Migration, Doctor Unavailable Unavailable PROBLEMS Type Condition ICD9-CM Code CQZ03-CN Code Onset Dates Condition S tatus SNOMED Code Problem Hypertension, benign I10 Active 25542959 Problem Other chronic pain G89.29 Active 8 4183101 Problem Lumbago with sciatica, unspecified side M54.40 Active 640990933 Problem Controlled type 2 diabetes m ellitus without complication, without long- term current use of insulin E11.9 Active 293066124 Problem Lumbago with sciatica, right side M54.41 Active 471020691 Problem Adjustment disorder with disturbance of emotion F4 3.29 Active 24290895 Problem MELE (obstructive sleep apnea) G47.33 Active 89718885 Problem Non morbid obesity E66.9 Active 4 61727037 Problem Hammer toe of left foot M20.42 Active 812850531 Problem Mood disorder F39 Active 607554 05 Problem Deformity of left foot M21.962 Active 974529798 Problem Lumbago with sciatica, left side M54.42 Active 513074156 Problem Erectile dysfunction due to diseases classified elsewhere N52.1 Active 101619123 Problem Obstructive sleep apnea syndrome G47.33 Active 84731590 Problem Type 2 diabetes mellitus wit h diabetic neuropathy, without long-term current use of insulin E11.40 Active 70700 006 Problem Essential hypertension I10 Active 71374392 ALLERGIES No Information ENCOUNTERS Encounter Location Date Diagnosis [facility] [address] [facility] [id number] [address] [place] [phone] 18 Nov, 2019 Viral URI J06.9 and Flu-like symptoms R68.89 [facility] [address] [facility] [id number] [address] [place] [phone] 09 Nov, 2019 Type 2 diabetes mellitus wit h diabetic neuropathy, without long- term current use of insulin E11.40 ; Family history of prostate cancer Z80.42 and Prostate cancer screening Z12.5 [facility] [address] [facility] [id number] [address] [place] [phone] Nov, [facility] [address] [facility] [id number] [address] [place] [phone] Sep, [facility] [address] [facility] [id number] [address] [place] [phone] Aug, [facility] [address] [facility] [id number] [address] [place] [phone] Jul, Lumbago with sciatica, unspe cified side M54.40 [facility] [address] [facility] [id number] [address] [place] [phone] Jun, Lumbago with sciatica, unspe cified side M54.40 [facility] [address] [place] [id number] [address] [place] [phone] Jun, URI, acute J06.9 [facility] [address] [facility] [id number] [address] [place] [phone] May, Lumbago with sciatica, unspe cified side M54.40 [facility] [address] [facility] [id number] [address] [place] [phone] May, [facility] [address] [place] [id number] [address] [place] [phone] May, Type 2 diabetes mellitus wit h diabetic neuropathy, without long- term current use of insulin E11.40 and Hammer toe of left foot M20.42 [facility] [address] [facility] [id number] [address] [place] [phone] May, [facility] [address] [facility] [id number] [address] [place] [phone] May, [facility] [address] [facility] [id number] [address] [place] [phone] May, [facility] [address] [place] [id number] [address] [place] [phone] Apr, Lumbago with sciatica, unspe cified side M54.40 [facility] [address] [facility] [id number] [address] [place] [phone] Apr, [facility] [address] [facility] [id number] [address] [place] [phone] Apr, [id number] [place] [phone] Apr, Hammer toe of left foot M20. 42 ; Chest pain R07.9 ; Preoperative examination Z01.818 and Morbid obesity E66.01 [facility] [address] [facility] [id number] [address] [place] [id number] Apr, Morbid obesity E66.01 ; Bron chitis J40 and High risk medications (not anticoagulants) long-term use Z79.899 [facility] [address] [facility] [id number] [address] [place] [phone] Apr, Lumbago with sciatica, unspe cified side M54.40 [facility] [address] [facility] [id number] [address] [place] [phone] Apr, [facility] [address] [facility] [id number] [address] [place] [phone] Mar, Lumbar neuritis M54.16 and M orbid obesity E66.01 [facility] [address] [facility] [id number] [address] [place] [phone] Mar, [facility] [address] [facility] [id number] [address] [place] [phone] Mar, [facility] [address] [facility] [id number] [address] [place] [phone] Mar, Lumbago with sciatica, unspe cified side M54.40 [facility] [address] [facility] [id number] [address] [place] [phone] Mar, Morbid obesity E66.01 ; Coug marco R05 ; 2+ pitting edema R60.9 and Controlled type 2 diabetes mellitus without complication, without long-term current use of insulin E11.9 [place] [address] [facility] [id number] [address] [place] [phone] Feb, [facility] [address] [facility] [id number] [address] [place] [id number] Feb, Lumbago with sciatica, unspe cified side M54.40 [place] [address] [id number] [address] [place] [phone] Feb, [place] [address] [id number] [address] [place] [phone] Feb, Controlled type 2 diabetes m ellitus without complication, without long-term current use of insulin E11.9 and Morbid obesity E66.01 [place] [address] [place] [id number] [address] [place] [phone] January, Deformity of left foot M21.9 [address] [place] [address] [id number] [address] [place] [phone] January, [place] [address] [facility] [id number] [address] [place] [phone] January, Lumbago with sciatica, unspe cified side M54.40 [place] [address] [facility] [id number] [address] [place] [phone] January, [facility] [address] [id number] [address] [place] [phone] January, Lumbago with sciatica, unspe cified side M54.40 [place] [address] [facility] [id number] [address] [place] [phone] January, [place] [address] [facility] [id number] [address] [place] [phone] January, Acute right-sided thoracic b ack pain M54.6 [place] [address] [facility] [id number] [address] [place] [phone] January, Acute right-sided thoracic b ack pain M54.6 [facility] [address] [facility] [id number] [address] [place] [phone] January, Chest pain, unspecified type R07.9 ; Morbid obesity E66.01 and Scabies B86 [facility] [address] [facility] [id number] [address] [place] [address] Dec, Lumbago with sciatica, unspe cified side M54.40 [facility] [address] [facility] [id number] [address] [place] [phone] Dec, Toenail fungus B35.1 [facility] [address] [facility] [id number] [address] [place] [phone] Dec, Toenail fungus B35.1 [place] [address] [facility] [id number] [address] [place] [phone] Dec, Acute right-sided thoracic b ack pain M54.6 [place] [address] [facility] [id number] [address] [place] [phone] Dec, Lumbago with sciatica, unspe cified side M54.40 [facility] [address] [facility] [id number] [address] [place] [phone] Nov, Hammer toe of left foot M20. 42 ; Deformity of left foot M21.962 and Type 2 diabetes mellitus with diabetic neuropathy, without long-term current use of insulin E11.40 [facility] [address] [facility] [id number] [address] [place] [phone] Nov, Acute right-sided thoracic b ack pain M54.6 ; Morbid obesity E66.01 and Rt flank pain R10.9 [facility] [address] [facility] [id number] [address] [place] [phone] Nov, Lumbago with sciatica, unspe cified side M54.40 [facility] [address] [facility] [id number] [address] [place] [id number] Oct, Lumbago with sciatica, unspe cified side M54.40 [place] [address] [facility] [id number] [address] [place] [phone] Sep, Lumbago with sciatica, unspe cified side M54.40 [place] [address] [facility] [id number] [address] [place] [phone] Sep, [place] [address] [facility] [id number] [address] [place] [phone] Sep, BMI 40.0-44.9, adult Z68.41 ; Lumbago with sciatica, left side M54.42 ; Lumbago with sciatica, right side M54.41 and Other chronic pain G89.29 [place] [address] [place] [id number] [address] [place] [phone] Aug, Lumbago with sciatica, unspe cified side M54.40 [place] [address] [facility] [id number] [address] [place] [phone] Aug, Type 2 diabetes mellitus wit h diabetic neuropathy, without long- term current use of insulin E11.40 ; Hammer toe of left foot M20.42 ; Hypertension, benign I10 and Frequent headaches R51 [place] [address] [facility] [id number] [address] [place] [phone] Jul, Lumbago with sciatica, unspe cified side M54.40 [place] [address] [facility] [id number] [address] [place] [phone] Jul, [place] [address] [facility] [id number] [address] [place] [phone] Jul, Essential hypertension I10 a nd Controlled type 2 diabetes mellitus without complication, without long-term current use of insulin E11.9 [place] [address] [facility] [id number] [address] [place] [phone] Jul, Essential hypertension I10 ; Controlled type 2 diabetes mellitus without complication, without long-term current use of insulin E11.9 and BMI 40.0-44.9, adult Z68.41 [facility] [address] [id number] [address] [place] [phone] Jul, Dysfunction of left eustachi an tube H69.82 [facility] [address] [id number] [address] [place] [phone] Jul, Lumbago with sciatica, unspe cified side M54.40 [facility] [address] [id number] [address] [place] [address] [id number] Jun, Dental examination Z01.20 [facility] [address] [id number] [address] [place] [phone] Jun, Lumbago with sciatica, unspe cified side M54.40 and Encounter for immunization Z23 [facility] [address] [facility] [id number] [address] [place] [phone] Jun, Dysfunction of left eustachi an tube H69.[address] [place] [id number] [place] [address] [id number] Jun, Dental examination Z01.20 [facility] [address] [facility] [id number] [address] [place] [phone] Jun, Other chronic pain G89.29 [facility] [address] [facility] [id number] [address] [place] [address] [id number] Jun, Dental examination Z01.20 [facility] [address] [facility] [id number] [address] [place] [phone] Jun, [facility] [address] [facility] [id number] [address] [place] [phone] Jun, Bronchitis J40 ; Dysfunction of left eustachian tube H69.82 and BMI 45.0-49.9, adult Z68.42 [facility] [address] [facility] [id number] [address] [place] [phone] Jun, Lumbago with sciatica, unspe cified side M54.40 [facility] [address] [facility] [id number] [address] [place] [phone] May, Type 2 diabetes mellitus wit h diabetic neuropathy, without long- term current use of insulin E11.40 and Hypertension, benign I10 [facility] [id number] [place] [phone] May, Lumbago with sciatica, unspe cified side M54.40 [facility] [address] [facility] [id number] [address] [place] [phone] Apr, [facility] [address] [address] Apr, Controlled type 2 diabetes m ellitus without complication, without long-term current use of insulin E11.9 ; Insect bite (nonvenomous), right ankle, initial encounter S90.561A ; Local infection of the skin and subcutaneous tissue, unspecified L08.9 ; Acute swimmer''s ear of left side H60.332 and BMI 45.0-49.9, adult Z68.42 [place] [address] [address] Apr, Lumbago with sciatica, unspe cified side M54.40 [place] [address] [place] [id number] [address] [place] [phone] Mar, [place] [address] [place] [id number] [address] [place] [phone] Mar, Lumbago with sciatica, unspe cified side M54.40 [place] [address] [place] [id number] [address] [place] [id number] Feb, Lumbago with sciatica, unspe cified side M54.40 [facility] [address] [place] [id number] [address] [place] [phone] Feb, BMI 45.0-49.9, adult Z68.42 and Obstructive sleep apnea syndrome G47.33 [place] [address] [place] [id number] [address] [place] [phone] January, Lumbar neuritis M54.16 [place] [address] [place] [id number] [address] [place] [phone] January, Lumbago with sciatica, unspe cified side M54.40 [place] [address] [place] [id number] [address] [place] [phone] Dec, Controlled type 2 diabetes m ellitus without complication, without long-term current use of insulin E11.9 ; Erectile dysfunction due to diseases classified elsewhere N52.1 and Mood disorder F39 [place] [address] [place] [id number] [place] [address] Dec, Lumbago with sciatica, unspe cified side M54.40 [place] [address] [place] [id number] [address] [place] [id number] Dec, Obstructive sleep apnea synd luis G47.33 [place] [address] [place] [id number] [address] [place] [phone] Nov, Lumbago with sciatica, unspe cified side M54.40 ; Hypertension, benign I10 and Mood disorder F39 [place] [address] [place] [id number] [address] [place] [phone] Nov, Other chronic pain G89.29 [place] [address] [place] [id number] [address] [place] [address] Nov, Lumbago with sciatica, unspe cified side M54.40 [facility] [address] [facility] [id number] [address] [place] [phone] Nov, Dental examination Z01.20 [place] [address] [facility] [id number] [address] [place] [phone] Oct, [facility] [address] [facility] [id number] [address] [place] [phone] Oct, Lumbago with sciatica, unspe cified side M54.40 [facility] [address] [id number] [address] [place] [phone] Oct, Lumbago with sciatica, unspe cified side M54.40 [facility] [address] [id number] [address] [place] [phone] Oct, [facility] [address] [facility] [id number] [address] [place] [id number] Oct, [facility] [address] [id number] [address] [place] [address] [id number] Oct, 2017 Dental examination Z01.20 [facility] [address] [facility] [id number] [address] [place] [phone] 08 Oct, 2017 [facility] [address] [facility] [id number] [address] [place] [phone] Oct, Pain in right knee M25.561 [facility] [address] [facility] [id number] [address] [place] [address] Sep, [facility] [address] [facility] [id number] [address] [place] [phone] Sep, Other chronic pain G89.29 [facility] [address] [facility] [id number] [address] [place] [id number] Sep, Lumbago with sciatica, unspe cified side M54.40 [facility] [address] [facility] [id number] [address] [place] [phone] Sep, [facility] [address] [facility] [id number] [address] [place] [phone] Sep, Viral URI J06.9 and BMI 45.0 -49.9, adult Z68.42 [facility] [address] [facility] [id number] [address] [place] [address] Aug, Foreign body hand S60.559A a nd BMI 45.0-49.9, adult Z68.42 [facility] [address] [facility] [id number] [address] [place] [phone] Aug, [facility] [address] [facility] [id number] [address] [place] [phone] Aug, Lumbago with sciatica, unspe cified side M54.40 [facility] [address] [facility] [id number] [address] [place] [phone] Aug, Vertigo R42 ; Dysfunction of both eustachian tubes H69.83 ; Low back pain M54.5 and Other chronic pain G89.29 [facility] [address] [facility] [id number] [address] [place] [phone] Aug, Dizziness R42 and Acute bila teral otitis media H66.93 [place] [address] [facility] [id number] [address] [place] [address] Aug, Lumbago with sciatica, unspe cified side M54.40 [facility] [address] [facility] [id number] [place] [address] [id number] Jul, Dental examination Z01.20 [place] [address] [facility] [id number] [address] [place] [phone] Jul, [facility] [address] [facility] [id number] [address] [place] [phone] Jul, [place] [address] [facility] [id number] [address] [place] [phone] Jul, Dysfunction of both eustachi an tubes H69.83 [facility] [address] [facility] [id number] [address] [place] [phone] Jul, Controlled type 2 diabetes m ellitus without complication, without long-term current use of insulin E11.9 [facility] [address] [facility] [id number] [address] [place] [phone] Jul, Controlled type 2 diabetes m ellitus without complication, without long-term current use of insulin E11.9 [facility] [address] [id number] [address] [place] [phone] Jul, Dizziness R42 and BMI 40.0-4 4.9, adult Z68.41 [facility] [address] [id number] [address] [place] [phone] Jul, Controlled type 2 diabetes m ellitus without complication, without long-term current use of insulin E11.9 [facility] [address] [id number] [address] [place] [phone] Jul, Lumbago with sciatica, unspe cified side M54.40 [facility] [address] [id number] [place] [address] [id number] Jul, Dental examination Z01.20 [facility] [address] [id number] [address] [place] [phone] Jun, [facility] [address] [id number] [place] [address] [id number] Jun, Dental examination Z01.20 [facility] [address] [id number] [address] [place] [phone] Jun, Controlled type 2 diabetes m ellitus without complication, without long-term current use of insulin E11.9 [facility] [address] [id number] [address] [place] [phone] Jun, Lumbago with sciatica, unspe cified side M54.40 [facility] [address] [id number] [place] [phone] May, Dental examination Z01.20 [facility] [address] [id number] [address] [place] [phone] May, Controlled type 2 diabetes m ellitus without complication, without long-term current use of insulin E11.9 [facility] [address] [id number] [place] [address] [id number] May, Dental examination Z01.20 [facility] [address] [id number] [address] [place] [phone] May, Bronchitis J40 ; Dry mouth R 68.2 ; Non morbid obesity E66.9 and Controlled type 2 diabetes mellitus without complication, without long-term current use of insulin E11.9 [facility] [address] [facility] [id number] [address] [place] [phone] 16 May, 2017 Encounter for immunization Z 23 [facility] [address] [facility] [id number] [address] [place] [phone] 07 May, 2017 Lumbago with sciatica, unspe cified side M54.40 [facility] [address] [id number] [address] [place] [phone] 05 May, 2017 [facility] [address] [id number] Apr, Dental examination Z01.20 [place] [address] [address] [place] [id number] [address] [place] [phone] Apr, Lumbago with sciatica, unspe cified side M54.40 [facility] [address] [id number] [address] [place] [phone] Mar, Lumbago with sciatica, left side M54.42 [place] [address] [facility] [id number] [address] [place] [phone] Mar, [facility] [address] [facility] [id number] [address] [place] [phone] Mar, Lumbar neuritis M54.16 [facility] [address] [facility] [id number] [address] [place] [phone] Mar, [facility] [address] [id number] [place] [id number] Mar, Dental examination Z01.20 [facility] [address] [facility] [id number] [address] [place] [phone] Mar, MELE (obstructive sleep apnea ) G47.33 ; Neuropathy involving both lower extremities G57.93 and Frequent headaches R51 [place] [address] [address] [place] [id number] [address] [place] [phone] Mar, Lumbago with sciatica, unspe cified side M54.40 [place] [address] [facility] [id number] [address] [place] [id number] Feb, Lumbago with sciatica, unspe cified side M54.40 and Controlled type 2 diabetes mellitus without complication, without long-term current use of insulin E11.9 [place] [address] [place] [id number] [place] [phone] January, Hypertension, benign I10 and Bilateral low back pain with sciatica, sciatica laterality unspecified M54.40 [place] [address] [place] [id number] [place] [address] January, Hypertension, benign I10 ; L umbago with sciatica, unspecified side M54.40 ; Other chronic pain G89.29 and Controlled type 2 diabetes mellitus without complication, without long-term current use of insulin E11.9 [place] [address] [place] [id number] [address] [place] [address] January, Lumbar neuritis M54.16 [place] [address] [place] [id number] [address] [place] [id number] January, [place] [address] [place] [id number] [address] [place] [phone] Dec, Lumbago with sciatica, right side M54.41 and Lumbar neuritis M54.16 [place] [address] [place] [id number] [address] [place] [phone] Dec, Lumbar neuritis M54.16 [place] [address] [place] [id number] [address] [place] [phone] Dec, Lumbar neuritis M54.16 [place] [address] [place] [id number] [address] [place] [phone] Nov, Lumbar neuritis M54.16 ; Lum bago with sciatica, right side M54.41 ; Controlled type 2 diabetes mellitus without complication, without long-term current use of insulin E11.9 and Rash and nonspecific skin eruption R21 [place] [address] [facility] [id number] [address] [place] [phone] Nov, Lumbar neuritis M54.16 and P alexi [place] L23.7 [place] [address] [place] [id number] [address] [place] [phone] 16 Oct, 2016 Lumbar neuritis M54.16 ; Cou ghing R05 and Mood disorder F39 [place] [address] [address] [place] [id number] [address] [place] [address] Sep, Lumbago with sciatica, right side M54.41 [place] [address] [place] [id number] [place] [address] Sep, Adjustment disorder with dis turbance of emotion F43.29 and Pain management R52 [place] [id number] [place] [phone] Sep, [place] [address] [place] [id number] [place] [phone] Sep, [place] [address] [phone] Sep, Controlled type 2 diabetes evens reyna without complication, without long-term current use of insulin E11.9 and Lumbago with sciatica, unspecified side M54.40 [place] [address] [address] [place] [id number] [address] [place] [address] Aug, Controlled type 2 diabetes evens reyna without complication, without long-term current use of insulin E11.9 ; Pain in right knee M25.561 ; Pain in left knee M25.562 ; Other chronic pain G89.29 ; Lumbago with sciatica, right side M54.41 ; Neck pain M54.2 and Encounter for immunization Z23 [place] [address] [address] [place] [id number] [place] [phone] Jul, [place] [address] [place] [id number] [place] [phone] Jul, Controlled type 2 diabetes evens reyna without complication, without long-term current use of insulin E11.9 [facility] [address] [id number] [address] [place] [phone] Jul, [facility] [address] [id number] [address] [place] [phone] Jul, [facility] [address] [id number] [address] [place] [id number] Jul, Lumbago with sciatica, left side M54.42 ; Lumbago with sciatica, right side M54.41 and Other chronic pain G89.29 [facility] [address] [id number] [address] [place] [phone] Jul, [facility] [address] [id number] [address] [place] [phone] Jul, [facility] [address] [id number] [address] [place] [phone] Jun, [facility] [address] [id number] [address] [place] [address] Jun, Lumbago with sciatica, right side M54.41 and Other chronic pain G89.29 [facility] [address] [id number] [address] [place] [phone] Jun, Cervicalgia M54.2 ; Lumbago with sciatica, unspecified side M54.40 and Other chronic pain G89.29 [facility] [address] [id number] [address] [place] [address] 15 May, 2016 Pain in right knee M25.561 ; Pain in left knee M25.562 and Other chronic pain G89.29 [facility] [address] [id number] [address] [place] [phone] 14 May, 2016 [facility] [address] [facility] [id number] [address] [place] [phone] Apr, Other chronic pain G89.29 an d Pain in right knee M25.561 [facility] [address] [id number] [address] [place] [address] Apr, Pain in right knee M25.561 [facility] [address] [id number] [address] [place] [id number] Mar, [facility] [address] [id number] [address] [place] [phone] Mar, Mood disorder F39 and Contro lled type 2 diabetes mellitus without complication, without long-term current use of insulin E11.9 [facility] [address] [id number] [address] [place] [phone] Mar, Pain in right knee M25.561 ; Pain in left knee M25.562 ; Other chronic pain G89.29 ; Obstructive sleep apnea syndrome G47.33 ; Mood disorder F39 and Controlled type 2 diabetes mellitus without complication, without long- term current use of insulin E11.9 [facility] [address] [id number] [address] [place] [phone] Mar, [facility] [address] [id number] [address] [place] [id number] Feb, Dental examination Z01.20 [facility] [address] [id number] [address] [place] [phone] Feb, [facility] [address] [id number] [address] [place] [phone] Feb, Osteoarthritis of right knee , unspecified osteoarthritis type M17.9 [facility] [address] [id number] [address] [place] [phone] January, [facility] [address] [id number] [address] [place] [address] [id number] January, Dental examination Z01.20 [facility] [address] [id number] [address] [place] [id number] January, [facility] [address] [id number] [address] [place] [address] [id number] January, Dental examination Z01.20 an d Caries K02.9 [facility] [address] [facility] [id number] [address] [place] [phone] Dec, Encounter for other preproce dural examination Z01.818 [facility] [address] [id number] [address] [place] [phone] Dec, [facility] [address] [id number] [address] [place] [phone] Dec, Knee pain M25.569 [facility] [address] [id number] [address] [place] [phone] Dec, Pain in right knee M25.561 [facility] [address] [id number] [address] [place] [phone] Dec, [facility] [address] [id number] [address] [place] [phone] Dec, [facility] [address] [id number] [address] [place] [phone] Dec, Encounter for immunization Z 23 [facility] [address] [id number] [address] [place] [id number] Dec, [facility] [address] [id number] [address] [place] [phone] Dec, [facility] [address] [id number] [address] [place] [phone] Nov, [facility] [address] [facility] [id number] [address] [place] [phone] Nov, Hypertension, benign I10 ; C ervicalgia M54.2 ; Pain in right knee M25.561 and Pain in left knee M25.562 [facility] [address] [id number] [address] [place] [phone] Oct, [facility] [address] [id number] [address] [place] [phone] Oct, [place] [address] [facility] [id number] [address] [place] [phone] Oct, Osteoarthritis of both knees M17.0 [place] [address] [facility] [id number] [address] [place] [phone] Oct, [place] [address] [place] [id number] [place] [phone] Oct, Low back pain M54.5 [place] [address] [facility] [id number] [address] [place] [phone] Oct, Low back pain M54.5 ; Sciati ca, unspecified side M54.30 ; Pain in right knee M25.561 ; Pain in left knee M25.562 ; Pain in right shoulder M25.511 and Pain in left shoulder M25.512 [place] [address] [address] [place] [id number] [place] [phone] Oct, [place] [address] [place] [id number] [place] [phone] Sep, Pain in right hip M25.551 [place] [address] [address] [place] [id number] [place] [phone] Sep, Acute upper respiratory infe ction, unspecified J06.9 [place] [address] [address] [place] [id number] [place] [phone] Aug, Acute upper respiratory infe ction, unspecified J06.9 and Other viral agents as the cause of diseases classified elsewhere B97.89 [place] [address] [address] [place] [id number] [place] [phone] Jul, Arthritis M19.90 [place] [address] [place] [id number] [place] [phone] Jun, Arthritis M19.90 ; Pain in r ight hip M25.551 ; Pain in left hip M25.552 ; Bilateral low back pain with sciatica, sciatica laterality unspecified M54.40 ; Neck pain M54.2 ; Upper back pain M54.9 and Knee pain, unspecified laterality M25.569 [facility] [address] [id number] [address] [place] [phone] May, Osteoarthritis of both knees 715.96 [facility] [address] [id number] [address] [place] [phone] May, Rash 782.1 [facility] [address] [id number] [address] [place] [phone] Apr, Lumbar strain 847.2 [facility] [address] [id number] [address] [place] [phone] Apr, Rash 782.1 [facility] [address] [facility] [id number] [address] [place] [phone] Mar, Rash 782.1 [facility] [address] [id number] [address] [place] [phone] Feb, Rash 782.1 ; Hemorrhoids 455 .6 and Constipation 564.00 [facility] [address] [id number] [address] [place] [phone] Feb, Osteoarthritis of both knees 715.96 [facility] [address] [id number] [address] [place] [phone] January, [facility] [address] [id number] [address] [place] [phone] Dec, [facility] [address] [id number] [address] [place] [phone] Dec, [facility] [address] [id number] [address] [place] [phone] Dec, [facility] [address] [id number] [address] [place] [phone] Nov, [facility] [address] [id number] [address] [place] [phone] Nov, [facility] [address] [id number] [address] [place] [address], [place] [address] Nov, [facility] [address] [id number] [address] [place] [address], [place] [address] Nov, [facility] [address] [id number] [address] [place] [address], [place] [address] Nov, [facility] [address] [id number] [address] [place] [address], [place] [address] Nov, [facility] [address] [id number] [address] [place] [address], [place] [address] Oct, 2014 [facility] [address] [id number] [address] [place] [address], [place] [address] Oct, 2014 [facility] [address] [id number] [address] [place] [address], [place] [address] Oct, 2014 [facility] [address] [id number] [address] [place] [address], [place] [address] Oct, 2014 [facility] [address] [id number] [address] [place] [address], [place] [address] Oct, 2014 [facility] [address] [id number] [address] [place] [address], [place] [address] Oct, 2014 [facility] [address] [id number] [address] [place] [address], [place] [address] Oct, 2014 [facility] [address] [id number] [address] [place] [address], [place] [address] Oct, 2014 [facility] [address] [id number] [address] [place] [address], [place] [address] Oct, 2014 [facility] [address] [id number] [address] [place] [phone] Oct, 2014 [facility] [address] [id number] [address] [place] [address], [place] [address] 05 Oct, 2014 [facility] [address] [id number] [address] [place] [address], [place] [address] Sep, [facility] [address] [id number] [address] [place] [address], [place] [address] Sep, [facility] [address] [id number] [address] [place] [address], [place] [address] Sep, [facility] [address] [id number] [address] [place] [address], [place] [address] Sep, [facility] [address] [id number] [address] [place] [address], [place] [address] Sep, [facility] [address] [id number] [address] [place] [address], [place] [address] Sep, [facility] [address] [id number] [address] [place] [address], [place] [address] Aug, [facility] [address] [id number] [address] [place] [address], [place] [address] Aug, [facility] [address] [id number] [address] [place] [address], [place] [address] Aug, [facility] [address] [id number] [address] [place] [address], [place] [address] Aug, [facility] [address] [id number] [address] [place] [address], [place] [address] Aug, [facility] [address] [id number] [address] [place] [address], [place] [address] Aug, [facility] [address] [id number] [address] [place] [address], [place] [address] Aug, [facility] [address] [id number] [address] [place] [address], [place] [address] Aug, [facility] [address] [id number] [address] [place] [address], [place] [address] Aug, [facility] [address] [id number] [address] [place] [phone] Aug, [facility] [address] [id number] [address] [place] [address], [place] [address] Jul, [facility] [address] [id number] [address] [place] [phone] Jul, [facility] [address] [id number] [address] [place] [address], [place] [address] Jul, [facility] [address] [id number] [address] [place] [address], [place] [address] Jul, [facility] [address] [id number] [address] [place] [address], [place] [address] Jun, [facility] [address] [id number] [address] [place] [address], [place] [address] Jun, [facility] [address] [id number] [address] [place] [phone] Jun, [facility] [address] [id number] [address] [place] [address], [place] [address] Jun, [facility] [address] [id number] [address] [place] [phone] Jun, [facility] [address] [id number] [address] [place] [phone] Jun, [facility] [address] [id number] [address] [place] [phone] Jun, [facility] [address] [id number] [address] [place] [phone] Jun, [facility] [address] [id number] [address] [place] [phone] May, [facility] [address] [id number] [address] [place] [phone] May, [facility] [address] [id number] [address] [place] [phone] May, [facility] [address] [id number] [facility] [place] [address] 19 May, 2013 [facility] [address] [id number] [facility] [address] 15 May, 2014 [facility] [address] [id number] [facility] [address] 15 May, 2014 [facility] [address] [id number] [address] [place] [address], [place] [address] 15 May, 2014 [facility] [address] [id number] [address] [place] [address], [place] [address] May, [facility] [address] [id number] [address] [place] [address], [place] [address] Apr, [facility] [address] [id number] [address] [place] [address], [place] [address] Apr, [facility] [address] [id number] [address] [place] [address], [place] [address] Apr, [facility] [address] [id number] [address] [place] [address], [place] [address] Apr, [facility] [address] [id number] [address] [place] [address], [place] [address] Apr, [facility] [address] [id number] [address] [place] [address], [place] [address] Apr, [facility] [address] [id number] [address] [place] [address], [place] [address] Apr, [facility] [address] [id number] [address] [place] [address], [place] [address] Apr, [facility] [address] [id number] [address] [place] [address], [place] [address] Apr, [facility] [address] [id number] [address] [place] [address], [place] [address] Apr, [facility] [address] [id number] [address] [place] [address], [place] [address] Apr, [facility] [address] [id number] [address] [place] [address], [place] [address] Apr, [facility] [address] [id number] [address] [place] [address], [place] [address] Mar, [facility] [address] [id number] [address] [place] [address], [place] [address] Mar, [facility] [address] [id number] [address] [place] [address], [place] [address] Mar, [facility] [address] [id number] [address] [place] [address], [place] [address] Mar, [facility] [address] [id number] [address] [place] [address], [place] [address] Mar, [facility] [address] [id number] [address] [place] [address], [place] [address] Mar, [facility] [address] [id number] [address] [place] [address], [place] [address] Feb, [facility] [address] [id number] [address] [place] [address], [place] [address] Feb, [facility] [address] [id number] [address] [place] [address], [place] [address] Feb, [facility] [address] [id number] [address] [place] [address], [place] [address] Feb, [facility] [address] [id number] [address] [place] [address], [place] [address] Feb, [facility] [address] [id number] [address] [place] [address], [place] [address] Feb, [facility] [address] [id number] [address] [place] [address], [place] [address] Feb, [facility] [address] [id number] [address] [place] [address], [place] [address] Feb, [facility] [address] [id number] [address] [place] [address], [place] [address] Feb, [facility] [address] [id number] [address] [place] [address], [place] [address] Feb, [facility] [address] [id number] [address] [place] [address], [place] [address] Feb, [facility] [address] [id number] [address] [place] [address], [place] [address] Feb, [facility] [address] [id number] [address] [place] [address], [place] [address] Feb, [facility] [address] [id number] [address] [place] [address], [place] [address] Feb, [facility] [address] [id number] [address] [place] [address], [place] [address] January, [facility] [address] [id number] [address] [place] [address], [place] [address] January, [facility] [address] [id number] [address] [place] [address], [place] [address] January, [facility] [address] [id number] [address] [place] [address], [place] [address] January, [facility] [address] [id number] [address] [place] [address], [place] [address] January, [facility] [address] [id number] [address] [place] [address], [place] [address] January, [facility] [address] [id number] [address] [place] [address], [place] [address] Dec, [facility] [address] [id number] [address] [place] [address], [place] [address] Dec, [facility] [address] [id number] [address] [place] [address], [place] [address] Dec, [facility] [address] [id number] [address] [place] [address], [place] [address] Dec, [facility] [address] [id number] [address] [place] [address], [place] [address] Dec, [facility] [address] [id number] [address] [place] [address], [place] [address] Dec, [facility] [address] [id number] [address] [place] [address], [place] [address] Dec, [facility] [address] [id number] [address] [place] [address], [place] [address] Dec, [facility] [address] [id number] [address] [place] [address], [place] [address] Nov, [facility] [address] [id number] [address] [place] [address], [place] [address] Nov, [facility] [address] [id number] [address] [place] [address], [place] [address] Nov, [facility] [address] [id number] [address] [place] [address], [place] [address] Nov, [facility] [address] [id number] [address] [place] [address], [place] [address] Nov, [facility] [address] [id number] [address] [place] [address], [place] [address] Nov, [facility] [address] [id number] [address] [place] [address], [place] [address] Nov, [facility] [address] [id number] [address] [place] [address], [place] [address] Nov, [facility] [address] [id number] [address] [place] [address], [place] [address] Oct, [facility] [address] [id number] [address] [place] [address], [place] [address] Oct, [facility] [address] [id number] [address] [place] [address], [place] [address] Oct, [facility] [address] [id number] [address] [place] [address], [place] [address] Oct, [facility] [address] [id number] [address] [place] [address], [place] [address] Oct, [facility] [address] [id number] [address] [place] [address], [place] [address] Oct, [facility] [address] [id number] [address] [place] [address], [place] [address] Oct, [facility] [address] [id number] [address] [place] [address], [place] [address] Oct, [facility] [address] [id number] [address] [place] [address], [place] [address] Oct, [facility] [address] [id number] [address] [place] [address], [place] [address] Oct, [facility] [address] [id number] [address] [place] [address], [place] [address] Sep, [facility] [address] [id number] [address] [place] [address], [place] [address] Sep, [facility] [address] [id number] [address] [place] [address], [place] [address] Sep, [facility] [address] [id number] [address] [place] [address], [place] [address] Sep, [facility] [address] [id number] [address] [place] [address], [place] [address] Sep, [facility] [address] [id number] [address] [place] [address], [place] [address] Sep, [facility] [address] [id number] [address] [place] [address], [place] [address] Aug, [facility] [address] [id number] [address] [place] [address], [place] [address] Aug, [facility] [address] [id number] [address] [place] [address], [place] [address] Aug, [facility] [address] [id number] [address] [place] [address], [place] [address] Aug, [facility] [address] [id number] [address] [place] [address], [place] [address] Aug, [facility] [address] [id number] [address] [place] [address], [place] [address] Aug, [facility] [address] [id number] [address] [place] [address], [place] [address] Aug, [facility] [address] [id number] [address] [place] [address], [place] [address] Aug, [facility] [address] [id number] [address] [place] [address], [place] [address] Jul, [facility] [address] [id number] [address] [place] [address], [place] [address] Jul, [facility] [address] [id number] [address] [place] [id number] Jul, [facility] [address] [id number] [address] [place] [address], [place] [address] Jul, [facility] [address] [id number] [address] [place] [id number] Jul, [facility] [address] [id number] [address] [place] [id number] Jul, [facility] [address] [id number] [address] [place] [id number] Jun, [facility] [address] [id number] [address] [place] [id number] Jun, [facility] [address] [id number] [address] [place] [id number] Jun, [facility] [address] [id number] [address] [place] [id number] May, [facility] [address] [id number] [address] [place] [id number] May, [facility] [address] [id number] [address] [place] [address], [place] [address] May, [facility] [address] [id number] [address] [place] [address], [place] [address] Apr, [facility] [address] [id number] [address] [place] [address], [place] [address] Apr, [facility] [address] [id number] [address] [place] [address], [place] [address] Apr, [facility] [address] [id number] [address] [place] [address], [place] [address] Apr, [facility] [address] [id number] [address] [place] [address], [place] [address] Mar, [facility] [address] [id number] [address] [place] [address], [place] [address] Mar, [facility] [address] [id number] [address] [place] [address], [place] [address] Mar, [facility] [address] [id number] [address] [place] [address], [place] [address] Mar, [facility] [address] [id number] [address] [place] [address], [place] [address] Feb, [facility] [address] [id number] [address] [place] [address], [place] [address] Feb, [facility] [address] [id number] [address] [place] [address], [place] [address] Feb, [facility] [address] [id number] [address] [place] [address], [place] [address] Feb, [facility] [address] [id number] [address] [place] [address], [place] [address] January, [facility] [address] [id number] [address] [place] [address], [place] [address] January, [facility] [address] [id number] [address] [place] [address], [place] [address] January, [facility] [address] [id number] [address] [place] [address], [place] [address] Nov, [facility] [address] [id number] [address] [place] [address], [place] [address] Nov, [facility] [address] [id number] [address] [place] [address], [place] [address] Oct, [facility] [address] [id number] [address] [place] [address], [place] [address] Oct, [facility] [address] [id number] [address] [place] [address], [place] [address] Oct, [facility] [address] [id number] [address] [place] [address], [place] [address] Oct, [facility] [address] [id number] [address] [place] [address], [place] [address] Sep, [facility] [address] [id number] [address] [place] [address], [place] [address] Sep, [facility] [address] [id number] [address] [place] [address], [place] [address] Sep, [facility] [address] [id number] [address] [place] [address], [place] [address] Aug, [facility] [address] [id number] [address] [place] [address], [place] [address] Aug, [facility] [address] [id number] [address] [place] [address], [place] [address] Aug, [facility] [address] [id number] [address] [place] [address], [place] [address] Aug, [facility] [address] [id number] [address] [place] [address], [place] [address] Aug, [facility] [address] [id number] [address] [place] [address], [place] [address] Aug, [facility] [address] [id number] [address] [place] [address], [place] [address] Jul, [facility] [address] [id number] [address] [place] [address], [place] [address] Jul, [facility] [address] [id number] [address] [place] [address], [place] [address] Jun, [facility] [address] [id number] [address] [place] [address], [place] [address] Jun, [facility] [address] [id number] [address] [place] [address], [place] [address] Jun, [facility] [address] [id number] [address] [place] [address], [place] [address] Apr, [facility] [address] [id number] [address] [place] [address], [place] [address] Apr, [facility] [address] [id number] [address] [place] [address], [place] [address] Mar, [facility] [address] [id number] [address] [place] [address], [place] [address] Mar, [facility] [address] [id number] [address] [place] [address], [place] [address] Mar, [facility] [address] [id number] [address] [place] [address], [place] [address] Mar, [facility] [address] [id number] [address] [place] [id number] Feb, [facility] [address] [id number] [address] [place] [address], [place] [address] Feb, [facility] [address] [id number] [address] [place] [address], [place] [address] Feb, [facility] [address] [id number] [address] [place] [address], [place] [address] January, [facility] [address] [id number] [address] [place] [address], [place] [address] January, [facility] [address] [id number] [address] [place] [address], [place] [address] January, [facility] [address] [id number] [address] [place] [address], [place] [address] January, [facility] [address] [id number] [address] [place] [address], [place] [address] Dec, [facility] [address] [id number] [address] [place] [address], [place] [address] Dec, [facility] [address] [id number] [address] [place] [address], [place] [address] Nov, [facility] [address] [id number] [address] [place] [address], [place] [address] Nov, [facility] [address] [id number] [address] [place] [address], [place] [address] 16 Oct, 2011 [facility] [address] [id number] [address] [place] [address], [place] [address] Oct, [facility] [address] [id number] [address] [place] [address], [place] [address] Sep, [facility] [address] [id number] [address] [place] [address], [place] [address] Sep, [facility] [address] [id number] [address] [place] [address], [place] [address] Sep, [facility] [address] [id number] [address] [place] [address], [place] [address] Sep, [facility] [address] [id number] [address] [place] [address], [place] [address] Aug, [facility] [address] [id number] [address] [place] [address], [place] [address] Aug, [facility] [address] [id number] [address] [place] [address], [place] [address] Aug, [facility] [address] [id number] [address] [place] [id number] Jul, [facility] [address] [id number] [address] [place] [id number] Aug, [facility] [address] [id number] [address] [place] [id number] Aug, [facility] [address] [id number] [address] [place] [id number] Aug, [facility] [address] [id number] [address] [place] [id number] Aug, [facility] [address] [id number] [address] [place] [id number] Jul, [facility] [address] [id number] [address] [place] [id number] Jul, [facility] [address] [id number] [address] [place] [id number] Jul, [facility] [address] [id number] [address] [place] [id number] Jun, [facility] [address] [id number] [address] [place] [id number] Jun, [facility] [address] [id number] [address] [place] [id number] Jun, [facility] [address] [id number] [address] [place] [id number] Apr, [facility] [address] [id number] [address] [place] [id number] Mar, IMMUNIZATIONS No Known Immunizations SOCIAL HISTORY [...]
--- OUTSIDE RECORDS SUMMARY | 2020-03-18 15:06 | XMS REPORT ---
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 Name Role Phone REYNA WAYNE Unavailable PROBLEMS Type Condition ICD9-CM Code DGL00-TP Code Onset Dates Condition S tatus SNOMED Code Problem Hypertension, benign I10 Active 91155892 Problem Other chronic pain G89.29 Active 8 0204821 Problem Lumbago with sciatica, unspecified side M54.40 Active 375984238 Problem Controlled type 2 diabetes m ellitus without complication, without long- term current use of insulin E11.9 Active 864445978 Problem Lumbago with sciatica, right side M54.41 Active 977988116 Problem Adjustment disorder with disturbance of emotion F4 3.29 Active 16683656 Problem MELE (obstructive sleep apnea) G47.33 Active 38069124 Problem Non morbid obesity E66.9 Active 4 58393813 Problem Hammer toe of left foot M20.42 Active 057029980 Problem Mood disorder F39 Active 905781 05 Problem Deformity of left foot M21.962 Active 661534255 Problem Lumbago with sciatica, left side M54.42 Active 383227493 Problem Erectile dysfunction due to diseases classified elsewhere N52.1 Active 023456775 Problem Obstructive sleep apnea syndrome G47.33 Active 35009290 Problem Type 2 diabetes mellitus wit h diabetic neuropathy, without long-term current use of insulin E11.40 Active 71067 006 Problem Essential hypertension I10 Active [id number] ALLERGIES No Information ENCOUNTERS Encounter Location Date Diagnosis [facility] [address] [facility] [id number] [address] [place] [phone] 18 Nov, 2019 Viral URI J06.9 and Flu-like symptoms R68.89 [facility] [address] [facility] [id number] [address] [place] [phone] 09 Nov, 2019 Type 2 diabetes mellitus wit h diabetic neuropathy, without long- term current use of insulin E11.40 ; Family history of prostate cancer Z80.42 and Prostate cancer screening Z12.5 [facility] [address] [facility] [id number] [address] [place] [phone] Nov, [facility] [address] [facility] [id number] [address] [place] [phone] Sep, [facility] [address] [facility] [id number] [address] [place] [phone] Aug, [facility] [address] [facility] [id number] [address] [place] [phone] Jul, Lumbago with sciatica, unspe cified side M54.40 [place] [address] [facility] [id number] [address] [place] [phone] Jun, Lumbago with sciatica, unspe cified side M54.40 [place] [address] [place] [id number] [address] [place] [phone] Jun, URI, acute J06.9 [facility] [address] [facility] [id number] [address] [place] [phone] May, Lumbago with sciatica, unspe cified side M54.40 [facility] [address] [facility] [id number] [address] [place] [phone] May, [facility] [address] [place] [id number] [address] [place] [phone] May, Type 2 diabetes mellitus wit h diabetic neuropathy, without long- term current use of insulin E11.40 and Hammer toe of left foot M20.42 [facility] [address] [facility] [id number] [address] [place] [phone] May, [facility] [address] [place] [id number] [address] [place] [phone] May, [facility] [address] [place] [id number] [address] [place] [phone] May, [place] [address] [facility] [id number] [address] [place] [phone] Apr, Lumbago with sciatica, unspe cified side M54.40 [facility] [address] [facility] [id number] [address] [place] [phone] Apr, [facility] [address] [place] [id number] [address] [place] [phone] Apr, [id number] [place] [phone] Apr, Hammer toe of left foot M20. 42 ; Chest pain R07.9 ; Preoperative examination Z01.818 and Morbid obesity E66.01 [place] [address] [place] [id number] [address] [place] [phone] Apr, Morbid obesity E66.01 ; Bron chitis J40 and High risk medications (not anticoagulants) long-term use Z79.899 [place] [address] [place] [id number] [address] [place] [phone] Apr, Lumbago with sciatica, unspe cified side M54.40 [place] [address] [place] [id number] [address] [place] [phone] Apr, [place] [address] [place] [id number] [address] [place] [phone] Mar, Lumbar neuritis M54.16 and M orbid obesity E66.01 [facility] [address] [place] [id number] [address] [place] [phone] Mar, [facility] [address] [place] [id number] [address] [place] [phone] Mar, [facility] [address] [place] [id number] [address] [place] [phone] Mar, Lumbago with sciatica, unspe cified side M54.40 [place] [address] [place] [id number] [address] [place] [phone] Mar, Morbid obesity E66.01 ; Gabe lara R05 ; 2+ pitting edema R60.9 and Controlled type 2 diabetes mellitus without complication, without long-term current use of insulin E11.9 [facility] [address] [id number] [address] [place] [phone] Feb, [facility] [address] [id number] [address] [place] [phone] Feb, Lumbago with sciatica, unspe cified side M54.40 [facility] [address] [id number] [address] [place] [phone] Feb, [facility] [address] [id number] [address] [place] [phone] Feb, Controlled type 2 diabetes m ellitus without complication, without long-term current use of insulin E11.9 and Morbid obesity E66.01 [facility] [address] [id number] [address] [place] [phone] January, Deformity of left foot M21.9 62 [facility] [address] [id number] [address] [place] [phone] January, [facility] [address] [id number] [address] [place] [phone] January, Lumbago with sciatica, unspe cified side M54.40 [facility] [address] [id number] [address] [place] [phone] January, [facility] [address] [id number] [address] [place] [phone] January, Lumbago with sciatica, unspe cified side M54.40 [facility] [address] [id number] [address] [place] [phone] January, [facility] [address] [id number] [address] [place] [phone] January, Acute right-sided thoracic b ack pain M54.6 [place] [id number] [facility] [id number] [address] [place] [phone] January, Acute right-sided thoracic b ack pain M54.6 [facility] [address] [facility] [id number] [address] [place] [phone] January, Chest pain, unspecified type R07.9 ; Morbid obesity E66.01 and Scabies B86 [facility] [address] [facility] [id number] [address] [place] [phone] Dec, Lumbago with sciatica, unspe cified side M54.40 [place] [address] [facility] [id number] [address] [place] [phone] Dec, Toenail fungus B35.1 [place] [address] [place] [id number] [address] [place] [phone] Dec, Toenail fungus B35.1 [place] [address] [place] [id number] [address] [place] [id number] Dec, Acute right-sided thoracic b ack pain M54.6 [place] [address] [place] [id number] [address] [place] [phone] Dec, Lumbago with sciatica, unspe cified side M54.40 [facility] [address] [place] [id number] [address] [place] [phone] Nov, Hammer toe of left foot M20. 42 ; Deformity of left foot M21.962 and Type 2 diabetes mellitus with diabetic neuropathy, without long-term current use of insulin E11.40 [facility] [address] [facility] [id number] [address] [place] [phone] Nov, Acute right-sided thoracic b ack pain M54.6 ; Morbid obesity E66.01 and Rt flank pain R10.9 [facility] [address] [facility] [id number] [address] [place] [phone] Nov, Lumbago with sciatica, unspe cified side M54.40 [place] [address] [facility] [id number] [address] [place] [phone] Oct, Lumbago with sciatica, unspe cified side M54.40 [facility] [address] [facility] [id number] [address] [place] [phone] Sep, Lumbago with sciatica, unspe cified side M54.40 [place] [address] [place] [id number] [address] [place] [phone] Sep, [place] [address] [place] [id number] [address] [place] [phone] Sep, BMI 40.0-44.9, adult Z68.41 ; Lumbago with sciatica, left side M54.42 ; Lumbago with sciatica, right side M54.41 and Other chronic pain G89.29 [place] [address] [place] [id number] [address] [place] [phone] Aug, Lumbago with sciatica, unspe cified side M54.40 [place] [address] [place] [id number] [address] [place] [phone] Aug, Type 2 diabetes mellitus wit h diabetic neuropathy, without long- term current use of insulin E11.40 ; Hammer toe of left foot M20.42 ; Hypertension, benign I10 and Frequent headaches R51 [place] [address] [place] [id number] [address] [place] [phone] Jul, Lumbago with sciatica, unspe cified side M54.40 [place] [address] [place] [id number] [address] [place] [phone] Jul, [place] [address] [place] [id number] [address] [place] [phone] Jul, Essential hypertension I10 a nd Controlled type 2 diabetes mellitus without complication, without long-term current use of insulin E11.9 [place] [address] [place] [id number] [address] [place] [phone] Jul, Essential hypertension I10 ; Controlled type 2 diabetes mellitus without complication, without long-term current use of insulin E11.9 and BMI 40.0-44.9, adult Z68.41 [facility] [address] [facility] [id number] [address] [place] [phone] Jul, Dysfunction of left eustachi an tube H69.82 [facility] [address] [facility] [id number] [address] [place] [phone] Jul, Lumbago with sciatica, unspe cified side M54.40 [facility] [address] [place] [id number] [address] [place] [id number] Jun, Dental examination Z01.20 [facility] [address] [place] [id number] [address] [place] [phone] Jun, Lumbago with sciatica, unspe cified side M54.40 and Encounter for immunization Z23 [place] [address] [place] [id number] [address] [place] [phone] Jun, Dysfunction of left eustachi an tube H69.[address] [place] [id number] [place] [address] [id number] Jun, Dental examination Z01.20 [facility] [address] [place] [id number] [address] [place] [phone] Jun, Other chronic pain G89.29 [facility] [id number] [place] [id number] Jun, Dental examination Z01.20 [facility] [address] [place] [id number] [address] [place] [phone] Jun, [facility] [address] [facility] [id number] [address] [place] [phone] Jun, Bronchitis J40 ; Dysfunction of left eustachian tube H69.82 and BMI 45.0-49.9, adult Z68.42 [facility] [address] [facility] [id number] [address] [place] [phone] Jun, Lumbago with sciatica, unspe cified side M54.40 [facility] [address] [place] [id number] [address] [place] [phone] May, Type 2 diabetes mellitus wit h diabetic neuropathy, without long- term current use of insulin E11.40 and Hypertension, benign I10 [facility] [address] [phone] May, Lumbago with sciatica, unspe cified side M54.40 [facility] [address] [place] [id number] [address] [place] [phone] Apr, [facility] [address] [address] Apr, Controlled type 2 diabetes m ellitus without complication, without long-term current use of insulin E11.9 ; Insect bite (nonvenomous), right ankle, initial encounter S90.561A ; Local infection of the skin and subcutaneous tissue, unspecified L08.9 ; Acute swimmer''s ear of left side H60.332 and BMI 45.0-49.9, adult Z68.42 [place] [address] [place] [id number] [address] [place] [phone] Apr, Lumbago with sciatica, unspe cified side M54.40 [place] [address] [place] [id number] [address] [place] [phone] Mar, [place] [address] [phone] Mar, Lumbago with sciatica, unspe cified side M54.40 [place] [address] [place] [id number] [address] [place] [phone] Feb, Lumbago with sciatica, unspe cified side M54.40 [facility] [address] [place] [id number] [address] [place] [phone] Feb, BMI 45.0-49.9, adult Z68.42 and Obstructive sleep apnea syndrome G47.33 [place] [address] [place] [address] January, Lumbar neuritis M54.16 [facility] [address] [place] [id number] [address] [place] [phone] January, Lumbago with sciatica, unspe cified side M54.40 [place] [address] [place] [id number] [address] [place] [phone] Dec, Controlled type 2 diabetes m maribell without complication, without long-term current use of insulin E11.9 ; Erectile dysfunction due to diseases classified elsewhere N52.1 and Mood disorder F39 [place] [address] [place] [id number] [place] [phone] Dec, Lumbago with sciatica, unspe cified side M54.40 [place] [address] [address] Dec, Obstructive sleep apnea synd luis G47.33 [place] [address] [place] [id number] [address] [place] [phone] Nov, Lumbago with sciatica, unspe cified side M54.40 ; Hypertension, benign I10 and Mood disorder F39 [place] [address] [place] [id number] [address] [place] [phone] Nov, Other chronic pain G89.29 [place] [address] [place] [id number] [address] [place] [phone] Nov, Lumbago with sciatica, unspe cified side M54.40 [facility] [address] [place] [id number] [address] [place] [address] [id number] Nov, Dental examination Z01.20 [facility] [address] [facility] [id number] [address] [place] [phone] Oct, [facility] [address] [place] [id number] [address] [place] [phone] Oct, Lumbago with sciatica, unspe cified side M54.40 [facility] [address] [facility] [id number] [address] [place] [phone] Oct, Lumbago with sciatica, unspe cified side M54.40 [facility] [address] [facility] [id number] [address] [place] [phone] Oct, [facility] [address] [facility] [id number] [address] [place] [phone] Oct, [facility] [address] [facility] [id number] [address] [place] [address] [id number] Oct, Dental examination Z01.20 [facility] [address] [facility] [id number] [address] [place] [phone] 08 Oct, 2017 [facility] [address] [place] [id number] [address] [place] [phone] Oct, Pain in right knee M25.561 [facility] [address] [facility] [id number] [address] [place] [phone] Sep, [facility] [address] [facility] [id number] [address] [place] [phone] Sep, Other chronic pain G89.29 [facility] [address] [facility] [id number] [address] [place] [phone] Sep, Lumbago with sciatica, unspe cified side M54.40 [facility] [address] [facility] [id number] [address] [place] [phone] Sep, [facility] [address] [place] [id number] [address] [place] [phone] Sep, Viral URI J06.9 and BMI 45.0 -49.9, adult Z68.42 [facility] [address] [facility] [id number] [address] [place] [phone] Aug, Foreign body hand S60.559A a nd BMI 45.0-49.9, adult Z68.42 [facility] [address] [place] [phone] Aug, [facility] [address] [place] [id number] Aug, Lumbago with sciatica, unspe cified side M54.40 [facility] [address] [address] Aug, Vertigo R42 ; Dysfunction of both eustachian tubes H69.83 ; Low back pain M54.5 and Other chronic pain G89.29 [facility] [address] [phone] Aug, Dizziness R42 and Acute bila teral otitis media H66.93 [place] [address] [address] Aug, Lumbago with sciatica, unspe cified side M54.40 [facility] [address] [place] [id number] Jul, Dental examination Z01.20 [place] [address] [place] [id number] [address] [place] [phone] Jul, [facility] [address] [place] [id number] [address] [place] [phone] Jul, [place] [address] [address] Jul, Dysfunction of both eustachi an tubes H69.83 [place] [address] [place] [id number] [address] [place] [phone] Jul, Controlled type 2 diabetes m taraitus without complication, without long-term current use of insulin E11.9 [facility] [address] [place] [id number] [address] [place] [phone] Jul, Controlled type 2 diabetes m ellitus without complication, without long-term current use of insulin E11.9 [facility] [address] [facility] [id number] [address] [place] [phone] Jul, Dizziness R42 and BMI 40.0-4 4.9, adult Z68.41 [facility] [address] [id number] [address] [place] [phone] Jul, Controlled type 2 diabetes m ellitus without complication, without long-term current use of insulin E11.9 [facility] [address] [id number] [address] [place] [id number] Jul, Lumbago with sciatica, unspe cified side M54.40 [facility] [address] [id number] [place] [id number] Jul, Dental examination Z01.20 [facility] [address] [id number] [address] [place] [phone] Jun, [facility] [address] [id number] [place] [id number] Jun, Dental examination Z01.20 [facility] [address] [id number] [address] [place] [id number] Jun, Controlled type 2 diabetes m ellitus without complication, without long-term current use of insulin E11.9 [facility] [address] [id number] [address] [place] [phone] Jun, Lumbago with sciatica, unspe cified side M54.40 [facility] [address] [id number] [place] [address] [id number] May, Dental examination Z01.20 [facility] [address] [id number] [address] [place] [phone] May, Controlled type 2 diabetes m ellitus without complication, without long-term current use of insulin E11.9 [facility] [address] [id number] [address] [place] [id number] May, Dental examination Z01.20 [facility] [address] [facility] [id number] [address] [place] [phone] 18 May, 2017 Bronchitis J40 ; Dry mouth R 68.2 ; Non morbid obesity E66.9 and Controlled type 2 diabetes mellitus without complication, without long-term current use of insulin E11.9 [facility] [address] [id number] [address] [place] [phone] 16 May, 2017 Encounter for immunization Z 23 [place] [address] [facility] [id number] [address] [place] [id number] 07 May, 2017 Lumbago with sciatica, unspe cified side M54.40 [place] [address] [facility] [id number] [address] [place] [phone] 05 May, 2017 [facility] [address] [place] [id number] [place] [place] [address] [id number] Apr, Dental examination Z01.20 [place] [address] [place] [id number] [address] [place] [phone] Apr, Lumbago with sciatica, unspe cified side M54.40 [facility] [address] [id number] [address] [place] [phone] Mar, Lumbago with sciatica, left side M54.42 [place] [address] [place] [id number] [address] [place] [phone] Mar, [facility] [address] [facility] [id number] [address] [place] [phone] Mar, Lumbar neuritis M54.16 [facility] [address] [id number] [address] [place] [phone] Mar, [facility] [address] [id number] [place] [place] [address] [id number] Mar, Dental examination Z01.20 [facility] [address] [facility] [id number] [address] [place] [phone] Mar, MELE (obstructive sleep apnea ) G47.33 ; Neuropathy involving both lower extremities G57.93 and Frequent headaches R51 [place] [address] [id number] [address] [place] [phone] Mar, Lumbago with sciatica, unspe cified side M54.40 [facility] [address] [id number] [address] [place] [phone] Feb, Lumbago with sciatica, unspe cified side M54.40 and Controlled type 2 diabetes mellitus without complication, without long-term current use of insulin E11.9 [place] [address] [id number] [address] [place] [phone] January, Hypertension, benign I10 and Bilateral low back pain with sciatica, sciatica laterality unspecified M54.40 [place] [address] [id number] [address] [place] [phone] January, Hypertension, benign I10 ; L umbago with sciatica, unspecified side M54.40 ; Other chronic pain G89.29 and Controlled type 2 diabetes mellitus without complication, without long-term current use of insulin E11.9 [place] [address] [id number] [address] [place] [phone] January, Lumbar neuritis M54.16 [place] [address] [id number] [address] [place] [phone] January, [place] [address] [id number] [address] [place] [id number] Dec, Lumbago with sciatica, right side M54.41 and Lumbar neuritis M54.16 [place] [address] [id number] [address] [place] [phone] Dec, Lumbar neuritis M54.16 [place] [address] [id number] [address] [place] [phone] Dec, Lumbar neuritis M54.16 [place] [address] [id number] [address] [place] [phone] Nov, Lumbar neuritis M54.16 ; Lum bago with sciatica, right side M54.41 ; Controlled type 2 diabetes mellitus without complication, without long-term current use of insulin E11.9 and Rash and nonspecific skin eruption R21 [place] [id number] [place] [phone] Nov, Lumbar neuritis M54.16 and P alexi miroslava L23.7 [place] [address] [place] [id number] [place] [phone] Oct, Lumbar neuritis M54.16 ; Cou ghing R05 and Mood disorder F39 [place] [address] [phone] Sep, Lumbago with sciatica, right side M54.41 [place] [address] [address] Sep, Adjustment disorder with dis turbance of emotion F43.29 and Pain management R52 [place] [address] [place] [id number] [address] [place] [phone] Sep, [place] [address] [phone] Sep, [place] [address] [phone] Sep, Controlled type 2 diabetes evens reyna without complication, without long-term current use of insulin E11.9 and Lumbago with sciatica, unspecified side M54.40 [place] [address] [place] [id number] [place] [phone] Aug, Controlled type 2 diabetes evens reyna without complication, without long-term current use of insulin E11.9 ; Pain in right knee M25.561 ; Pain in left knee M25.562 ; Other chronic pain G89.29 ; Lumbago with sciatica, right side M54.41 ; Neck pain M54.2 and Encounter for immunization Z23 [place] [address] [place] [id number] [place] [id number] Jul, [facility] [address] [id number] [address] [place] [phone] Jul, Controlled type 2 diabetes evens reyna without complication, without long-term current use of insulin E11.9 [facility] [address] [id number] [address] [place] [id number] 17 Jul, 2016 [facility] [address] [id number] [address] [place] [phone] Jul, [facility] [address] [id number] [address] [place] [phone] Jul, Lumbago with sciatica, left side M54.42 ; Lumbago with sciatica, right side M54.41 and Other chronic pain G89.29 [facility] [address] [id number] [address] [place] [phone] Jul, [facility] [address] [id number] [address] [place] [phone] Jul, [facility] [address] [id number] [address] [place] [phone] Jun, [facility] [address] [id number] [address] [place] [phone] Jun, Lumbago with sciatica, right side M54.41 and Other chronic pain G89.29 [facility] [address] [id number] [address] [place] [phone] 13 Jun, 2016 Cervicalgia M54.2 ; Lumbago with sciatica, unspecified side M54.40 and Other chronic pain G89.29 [facility] [address] [id number] [address] [place] [id number] 15 May, 2016 Pain in right knee M25.561 ; Pain in left knee M25.562 and Other chronic pain G89.29 [facility] [address] [id number] [address] [place] [phone] 14 May, 2016 [facility] [address] [id number] [address] [place] [phone] Apr, Other chronic pain G89.29 an d Pain in right knee M25.561 [facility] [address] [id number] [address] [place] [phone] Apr, Pain in right knee M25.561 [facility] [address] [id number] [address] [place] [phone] Mar, [facility] [address] [id number] [address] [place] [phone] Mar, Mood disorder F39 and Contro lled type 2 diabetes mellitus without complication, without long-term current use of insulin E11.9 [facility] [address] [id number] [address] [place] [id number] Mar, Pain in right knee M25.561 ; Pain in left knee M25.562 ; Other chronic pain G89.29 ; Obstructive sleep apnea syndrome G47.33 ; Mood disorder F39 and Controlled type 2 diabetes mellitus without complication, without long- term current use of insulin E11.9 [facility] [address] [id number] [address] [place] [phone] Mar, [facility] [address] [id number] [address] [place] [address] [id number] Feb, Dental examination Z01.20 [facility] [address] [id number] [address] [place] [phone] Feb, [facility] [address] [id number] [address] [place] [phone] Feb, Osteoarthritis of right knee , unspecified osteoarthritis type M17.9 [facility] [address] [id number] [address] [place] [phone] January, [facility] [address] [id number] [address] [place] [address] [id number] January, Dental examination Z01.20 [facility] [address] [id number] [address] [place] [phone] January, [facility] [address] [id number] [address] [place] [address] [id number] January, Dental examination Z01.20 an d Caries K02.9 [facility] [address] [id number] [address] [place] [phone] Dec, Encounter for other preproce dural examination Z01.818 [facility] [address] [id number] [address] [place] [phone] Dec, [facility] [address] [id number] [address] [place] [phone] Dec, Knee pain M25.569 [facility] [address] [id number] [address] [place] [id number] Dec, Pain in right knee M25.561 [facility] [address] [id number] [address] [place] [phone] Dec, [facility] [address] [id number] [address] [place] [phone] Dec, [facility] [address] [id number] [address] [place] [phone] Dec, Encounter for immunization Z 23 [facility] [address] [id number] [address] [place] [phone] Dec, [facility] [address] [id number] [address] [place] [phone] Dec, [facility] [address] [id number] [address] [place] [phone] Nov, [facility] [address] [id number] [address] [place] [phone] Nov, Hypertension, benign I10 ; C ervicalgia M54.2 ; Pain in right knee M25.561 and Pain in left knee M25.562 [facility] [address] [id number] [address] [place] [phone] Oct, [place] [address] [facility] [id number] [address] [place] [phone] Oct, [place] [address] [facility] [id number] [address] [place] [phone] Oct, Osteoarthritis of both knees M17.0 [place] [address] [facility] [id number] [address] [place] [phone] Oct, [place] [address] [facility] [id number] [address] [place] [phone] Oct, Low back pain M54.5 [place] [address] [facility] [id number] [address] [place] [phone] Oct, Low back pain M54.5 ; Sciati ca, unspecified side M54.30 ; Pain in right knee M25.561 ; Pain in left knee M25.562 ; Pain in right shoulder M25.511 and Pain in left shoulder M25.512 [place] [address] [facility] [id number] [address] [place] [phone] Oct, [place] [address] [facility] [id number] [address] [place] [phone] Sep, Pain in right hip M25.551 [place] [address] [place] [id number] [address] [place] [phone] Sep, Acute upper respiratory infe ction, unspecified J06.9 [place] [address] [place] [id number] [address] [place] [phone] Aug, Acute upper respiratory infe ction, unspecified J06.9 and Other viral agents as the cause of diseases classified elsewhere B97.89 [place] [address] [place] [id number] [address] [place] [phone] Jul, Arthritis M19.90 [place] [address] [place] [id number] [address] [place] [phone] Jun, Arthritis M19.90 ; Pain in r ight hip M25.551 ; Pain in left hip M25.552 ; Bilateral low back pain with sciatica, sciatica laterality unspecified M54.40 ; Neck pain M54.2 ; Upper back pain M54.9 and Knee pain, unspecified laterality M25.569 [facility] [address] [id number] [address] [place] [phone] 10 May, 2015 Osteoarthritis of both knees 715.96 [facility] [address] [id number] [address] [place] [phone] May, Rash 782.1 [facility] [address] [id number] [address] [place] [phone] Apr, Lumbar strain 847.2 [facility] [address] [id number] [address] [place] [phone] Apr, Rash 782.1 [facility] [address] [id number] [address] [place] [phone] Mar, Rash 782.1 [facility] [address] [id number] [address] [place] [phone] Feb, Rash 782.1 ; Hemorrhoids 455 .6 and Constipation 564.00 [facility] [address] [id number] [address] [place] [phone] Feb, Osteoarthritis of both knees 715.96 [facility] [address] [id number] [address] [place] [phone] January, [facility] [address] [id number] [address] [place] [phone] Dec, [facility] [address] [id number] [address] [place] [phone] 14 Dec, 2014 [facility] [address] [id number] [address] [place] [phone] Dec, [facility] [address] [id number] [address] [place] [phone] Nov, [facility] [address] [id number] [address] [place] [address], [place] [phone] 18 Nov, 2014 [facility] [address] [id number] [address] [place] [address], [place] [phone] 18 Nov, 2014 [facility] [address] [id number] [address] [place] [address], [place] [phone] Nov, [facility] [address] [id number] [address] [place] [address], [place] [phone] Nov, [facility] [address] [id number] [address] [place] [address], [place] [phone] Nov, [facility] [address] [id number] [address] [place] [address], [place] [phone] Oct, [facility] [address] [id number] [address] [place] [address], [place] [phone] Oct, [facility] [address] [id number] [address] [place] [address], [place] [phone] Oct, [facility] [address] [id number] [address] [place] [address], [place] [phone] Oct, [facility] [address] [id number] [address] [place] [address], [place] [phone] Oct, [facility] [address] [id number] [address] [place] [address], [place] [phone] Oct, [facility] [address] [id number] [address] [place] [address], [place] [phone] Oct, 2014 [facility] [address] [id number] [address] [place] [address], [place] [phone] Oct, [facility] [address] [id number] [address] [place] [address], [place] [phone] Oct, [facility] [address] [id number] [address] [place] [address], [place] [phone] 05 Oct, 2014 [facility] [address] [id number] [address] [place] [address], [place] [id number] 05 Oct, 2014 [facility] [address] [id number] [address] [place] [address], [place] [phone] Sep, [facility] [address] [id number] [address] [place] [address], [place] [id number] Sep, [facility] [address] [id number] [address] [place] [address], [place] [id number] Sep, [facility] [address] [id number] [address] [place] [address], [place] [phone] Sep, [facility] [address] [id number] [address] [place] [address], [place] [phone] Sep, [facility] [address] [id number] [address] [place] [address], [place] [phone] Sep, [facility] [address] [id number] [address] [place] [address], [place] [id number] Aug, [facility] [address] [id number] [address] [place] [address], [place] [address] Aug, [facility] [address] [id number] [address] [place] [address], [place] [address] Aug, [facility] [address] [id number] [address] [place] [address], [place] [address] Aug, [facility] [address] [id number] [address] [place] [address], [place] [id number] Aug, [facility] [address] [id number] [address] [place] [address], [place] [phone] Aug, [facility] [address] [id number] [address] [place] [address], [place] [address] Aug, [facility] [address] [id number] [address] [place] [address], [place] [address] Aug, [facility] [address] [id number] [address] [place] [address], [place] [id number] Aug, [facility] [address] [id number] [address] [place] [address], [place] [address] Aug, [facility] [address] [id number] [address] [place] [address], [place] [address] Jul, [facility] [address] [id number] [address] [place] [address], [place] [address] Jul, [facility] [address] [id number] [address] [place] [address], [place] [address] Jul, [facility] [address] [id number] [address] [place] [address], [place] [address] Jul, [facility] [address] [id number] [address] [place] [address], [place] [address] Jun, [facility] [address] [id number] [address] [place] [address], [place] [address] Jun, [facility] [address] [id number] [address] [place] [address], [place] [address] Jun, [facility] [address] [id number] [address] [place] [address], [place] [address] Jun, [facility] [address] [id number] [address] [place] [id number] Jun, [facility] [address] [id number] [address] [place] [address], [place] [id number] Jun, [facility] [address] [id number] [address] [place] [id number] Jun, [facility] [address] [id number] [address] [place] [address], [place] [address] Jun, [facility] [address] [id number] [address] [place] [address], [place] [address] May, [facility] [address] [id number] [address] [place] [address], [place] [id number] May, [facility] [address] [id number] [address] [place] [address], [place] [id number] 19 May, 2013 [facility] [address] [id number] [address] [place] [address], [place] [id number] 19 May, 2013 [facility] [address] [id number] [address] [place] [address], [place] [id number] 15 May, 2014 [facility] [address] [id number] [address] [place] [address], [place] [id number] 15 May, 2014 [facility] [address] [id number] [address] [place] [address], [place] [address] 15 May, 2014 [facility] [address] [id number] [address] [place] [address], [place] [address] 15 May, 2014 [facility] [address] [id number] [address] [place] [address], [place] [id number] Apr, [facility] [address] [id number] [address] [place] [address], [place] [address] Apr, [facility] [address] [id number] [address] [place] [address], [place] [address] Apr, [facility] [address] [id number] [address] [place] [address], [place] [id number] Apr, [facility] [address] [id number] [address] [place] [address], [place] [address] Apr, [facility] [address] [id number] [address] [place] [address], [place] [address] Apr, [facility] [address] [id number] [address] [place] [address], [place] [address] Apr, [facility] [address] [id number] [address] [place] [address], [place] [address] Apr, [facility] [address] [id number] [address] [place] [address], [place] [id number] Apr, [facility] [address] [id number] [address] [place] [address], [place] [address] Apr, [facility] [address] [id number] [facility] [place] [address] Apr, [facility] [address] [id number] [address] [place] [address], [place] [address] Apr, [facility] [address] [id number] [address] [place] [address], [place] [address] Mar, [facility] [address] [id number] [address] [place] [address], [place] [address] Mar, [facility] [address] [id number] [address] [place] [address], [place] [address] Mar, [facility] [address] [id number] [address] [place] [address], [place] [address] Mar, [facility] [address] [id number] [address] [place] [address], [place] [address] Mar, [facility] [address] [id number] [address] [place] [address], [place] [address] Mar, [facility] [address] [id number] [address] [place] [address], [place] [address] Feb, [facility] [address] [id number] [address] [place] [address], [place] [address] Feb, [facility] [address] [id number] [address] [place] [address], [place] [address] Feb, [facility] [address] [id number] [address] [place] [address], [place] [address] Feb, [facility] [address] [id number] [address] [place] [address], [place] [address] Feb, [facility] [address] [id number] [address] [place] [address], [place] [address] Feb, [facility] [address] [id number] [address] [place] [address], [place] [address] Feb, [facility] [address] [id number] [address] [place] [address], [place] [address] Feb, [facility] [address] [id number] [address] [place] [address], [place] [address] Feb, [facility] [address] [id number] [address] [place] [address], [place] [address] Feb, [facility] [address] [id number] [address] [place] [address], [place] [address] Feb, [facility] [address] [id number] [address] [place] [address], [place] [address] Feb, [facility] [address] [id number] [address] [place] [address], [place] [address] Feb, [facility] [address] [id number] [address] [place] [address], [place] [address] Feb, [facility] [address] [id number] [address] [place] [address], [place] [address] January, [facility] [address] [id number] [address] [place] [address], [place] [address] January, [facility] [address] [id number] [address] [place] [address], [place] [address] January, [facility] [address] [id number] [address] [place] [address], [place] [address] January, [facility] [address] [id number] [address] [place] [address], [place] [address] January, [facility] [address] [id number] [address] [place] [address], [place] [address] January, [facility] [address] [id number] [address] [place] [address], [place] [address] Dec, [facility] [address] [id number] [address] [place] [address], [place] [address] Dec, [facility] [address] [id number] [address] [place] [address], [place] [address] Dec, [facility] [address] [id number] [facility] [place] [address] 29 Dec, 2013 [facility] [address] [id number] [address] [place] [address], [place] [address] Dec, [facility] [address] [id number] [address] [place] [address], [place] [address] Dec, [facility] [address] [id number] [address] [place] [address], [place] [address] Dec, [facility] [address] [id number] [address] [place] [address], [place] [address] Dec, [facility] [address] [id number] [address] [place] [address], [place] [address] Nov, [facility] [address] [id number] [address] [place] [address], [place] [address] Nov, [facility] [address] [id number] [address] [place] [address], [place] [address] Nov, [facility] [address] [id number] [address] [place] [address], [place] [address] Nov, [facility] [address] [id number] [address] [place] [address], [place] [address] Nov, [facility] [address] [id number] [address] [place] [address], [place] [address] Nov, [facility] [address] [id number] [address] [place] [address], [place] [address] Nov, [facility] [address] [id number] [address] [place] [address], [place] [address] Nov, [facility] [address] [id number] [address] [place] [address], [place] [address] Oct, [facility] [address] [id number] [address] [place] [address], [place] [address] Oct, [facility] [address] [id number] [address] [place] [address], [place] [address] Oct, [facility] [address] [id number] [facility] [place] [address] Oct, [facility] [address] [id number] [address] [place] [address], [place] [address] Oct, [facility] [address] [id number] [address] [place] [address], [place] [address] Oct, [facility] [address] [id number] [address] [place] [address], [place] [address] Oct, [facility] [address] [id number] [address] [place] [address], [place] [address] Oct, [facility] [address] [id number] [address] [place] [address], [place] [address] Oct, [facility] [address] [id number] [address] [place] [address], [place] [address] Oct, [facility] [address] [id number] [address] [place] [address], [place] [address] Sep, [facility] [address] [id number] [address] [place] [address], [place] [address] Sep, [facility] [address] [id number] [address] [place] [address], [place] [address] Sep, [facility] [address] [id number] [address] [place] [address], [place] [address] Sep, [facility] [address] [id number] [address] [place] [address], [place] [address] Sep, [facility] [address] [id number] [address] [place] [address], [place] [address] Sep, [facility] [address] [id number] [address] [place] [address], [place] [address] Aug, [facility] [address] [id number] [address] [place] [address], [place] [address] Aug, [facility] [address] [id number] [address] [place] [address], [place] [address] Aug, [facility] [address] [id number] [address] [place] [address], [place] [address] Aug, [facility] [address] [id number] [address] [place] [address], [place] [address] Aug, [facility] [address] [id number] [address] [place] [address], [place] [address] Aug, [facility] [address] [id number] [address] [place] [address], [place] [address] Aug, [facility] [address] [id number] [address] [place] [address], [place] [address] Aug, [facility] [address] [id number] [address] [place] [address], [place] [address] Jul, [facility] [address] [id number] [address] [place] [address], [place] [address] Jul, [facility] [address] [id number] [address] [place] [address], [place] [address] Jul, [facility] [address] [id number] [address] [place] [address], [place] [address] Jul, [facility] [address] [id number] [address] [place] [address], [place] [address] Jul, [facility] [address] [id number] [address] [place] [address], [place] [address] Jul, [facility] [address] [id number] [address] [place] [address], [place] [address] Jun, [facility] [address] [id number] [address] [place] [address], [place] [address] Jun, [facility] [address] [id number] [address] [place] [address], [place] [address] Jun, [facility] [address] [id number] [address] [place] [address], [place] [address] May, [facility] [address] [id number] [address] [place] [address], [place] [address] May, [facility] [address] [id number] [address] [place] [address], [place] [address] May, [facility] [address] [id number] [address] [place] [address], [place] [address] Apr, [facility] [address] [id number] [address] [place] [address], [place] [address] Apr, [facility] [address] [id number] [address] [place] [address], [place] [address] Apr, [facility] [address] [id number] [address] [place] [address], [place] [address] Apr, [facility] [address] [id number] [address] [place] [address], [place] [address] Mar, [facility] [address] [id number] [address] [place] [address], [place] [address] Mar, [facility] [address] [id number] [address] [place] [address], [place] [address] Mar, [facility] [address] [id number] [address] [place] [address], [place] [address] Mar, [facility] [address] [id number] [address] [place] [address], [place] [address] Feb, [facility] [address] [id number] [address] [place] [address], [place] [address] Feb, [facility] [address] [id number] [address] [place] [address], [place] [address] Feb, [facility] [address] [id number] [address] [place] [address], [place] [address] Feb, [facility] [address] [id number] [address] [place] [address], [place] [address] January, [facility] [address] [id number] [address] [place] [address] January, [facility] [address] [id number] [address] [place] [address], [place] [address] January, [facility] [address] [id number] [address] [place] [address], [place] [address] Nov, [facility] [address] [id number] [address] [place] [address], [place] [address] Nov, [facility] [address] [id number] [address] [place] [address], [place] [address] Oct, [facility] [address] [id number] [address] [place] [address], [place] [address] Oct, [facility] [address] [id number] [address] [place] [address], [place] [address] Oct, [facility] [address] [id number] [address] [place] [address], [place] [address] Oct, [facility] [address] [id number] [address] [place] [address], [place] [address] Sep, [facility] [address] [id number] [address] [place] [address], [place] [address] Sep, [facility] [address] [id number] [address] [place] [address], [place] [address] Sep, [facility] [address] [id number] [address] [place] [address], [place] [address] Aug, [facility] [address] [id number] [address] [place] [address], [place] [address] Aug, [facility] [address] [id number] [address] [place] [address], [place] [address] Aug, [facility] [address] [id number] [address] [place] [address], [place] [address] Aug, [facility] [address] [id number] [address] [place] [address], [place] [address] Aug, [facility] [address] [id number] [address] [place] [address], [place] [address] Aug, [facility] [address] [id number] [address] [place] [address], [place] [address] Jul, [facility] [address] [id number] [address] [place] [address], [place] [address] Jul, [facility] [address] [id number] [address] [place] [address], [place] [address] Jun, [facility] [address] [id number] [address] [place] [address], [place] [address] Jun, [facility] [address] [id number] [address] [place] [address], [place] [address] Jun, [facility] [address] [id number] [address] [place] [address], [place] [address] Apr, [facility] [address] [id number] [address] [place] [address], [place] [address] Apr, [facility] [address] [id number] [address] [place] [address], [place] [address] Mar, [facility] [address] [id number] [address] [place] [address], [place] [address] Mar, [facility] [address] [id number] [address] [place] [address], [place] [address] Mar, [facility] [address] [id number] [address] [place] [address], [place] [address] Mar, [facility] [address] [id number] [address] [place] [address], [place] [address] Feb, [facility] [address] [id number] [address] [place] [address], [place] [address] Feb, [facility] [address] [id number] [address] [place] [address], [place] [address] Feb, [facility] [address] [id number] [address] [place] [address], [place] [address] January, [facility] [address] [id number] [address] [place] [address], [place] [address] January, [facility] [address] [id number] [address] [place] [address], [place] [address] January, [facility] [address] [id number] [address] [place] [address], [place] [address] January, [facility] [address] [id number] [address] [place] [address], [place] [address] Dec, [facility] [address] [id number] [address] [place] [address], [place] [address] Dec, [facility] [address] [id number] [address] [place] [address], [place] [address] Nov, [facility] [address] [id number] [address] [place] [address], [place] [address] Nov, [facility] [address] [id number] [address] [place] [address], [place] [address] Oct, [facility] [address] [id number] [address] [place] [address], [place] [address] Oct, [facility] [address] [id number] [address] [place] [address], [place] [address] Sep, [facility] [address] [id number] [address] [place] [address], [place] [address] Sep, [facility] [address] [id number] [address] [place] [address], [place] [address] Sep, [facility] [address] [id number] [address] [place] [address], [place] [address] Sep, [facility] [address] [id number] [address] [place] [address], [place] [address] Aug, [facility] [address] [id number] [address] [place] [address], [place] [address] Aug, [facility] [address] [id number] [address] [place] [id number] Aug, [facility] [address] [id number] [address] [place] [id number] Jul, [facility] [address] [id number] [address] [place] [id number] Aug, [facility] [address] [id number] [address] [place] [id number] Aug, [facility] [address] [id number] [address] [place] [id number] Aug, [facility] [address] [id number] [address] [place] [id number] Aug, [facility] [address] [id number] [address] [place] [id number] Jul, [facility] [address] [id number] [address] [place] [id number] Jul, [facility] [address] [id number] [address] [place] [id number] Jul, [facility] [address] [id number] [address] [place] [id number] Jun, [facility] [address] [id number] [address] [place] [id number] Jun, [facility] [address] [id number] [address] [place] [id number] Jun, [facility] [address] [id number] [address] [place] [id number] Apr, [facility] [address] [id number] [address] [place] [id number] Mar, IMMUNIZATIONS No Known Immunizations SOCIAL HISTORY [...]
--- OUTSIDE RECORDS SUMMARY | 2020-03-18 15:07 | XMS REPORT ---
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 Name Role Phone REYNA WAYNE Unavailable PROBLEMS Type Condition ICD9-CM Code GIK84-JI Code Onset Dates Condition S tatus SNOMED Code Problem Hypertension, benign I10 Active 90169132 Problem Other chronic pain G89.29 Active 8 2785111 Problem Lumbago with sciatica, unspecified side M54.40 Active 902440565 Problem Controlled type 2 diabetes m ellitus without complication, without long- term current use of insulin E11.9 Active 542018678 Problem Lumbago with sciatica, right side M54.41 Active 876076783 Problem Adjustment disorder with disturbance of emotion F4 3.29 Active 00367885 Problem MELE (obstructive sleep apnea) G47.33 Active 73631747 Problem Non morbid obesity E66.9 Active 4 80987700 Problem Hammer toe of left foot M20.42 Active 245723238 Problem Mood disorder F39 Active 058706 05 Problem Deformity of left foot M21.962 Active 601128999 Problem Lumbago with sciatica, left side M54.42 Active 352314694 Problem Erectile dysfunction due to diseases classified elsewhere N52.1 Active 853076114 Problem Obstructive sleep apnea syndrome G47.33 Active 09841179 Problem Type 2 diabetes mellitus wit h diabetic neuropathy, without long-term current use of insulin E11.40 Active 64819 006 Problem Essential hypertension I10 Active 00918325 ALLERGIES No Information ENCOUNTERS Encounter Location Date Diagnosis [facility] [address] [facility] [id number] [address] [place] [phone] 18 Nov, 2019 Viral URI J06.9 and Flu-like symptoms R68.89 [facility] [address] [facility] [id number] [address] [place] [phone] 09 Nov, 2019 Type 2 diabetes mellitus wit h diabetic neuropathy, without long- term current use of insulin E11.40 ; Family history of prostate cancer Z80.42 and Prostate cancer screening Z12.5 [facility] [address] [facility] [id number] [address] [place] [phone] Nov, [facility] [address] [facility] [id number] [address] [place] [phone] Sep, [facility] [address] [facility] [id number] [address] [place] [phone] Aug, [facility] [address] [facility] [id number] [address] [place] [phone] Jul, Lumbago with sciatica, unspe cified side M54.40 [place] [address] [address] [facility] [id number] [address] [place] [address] Jun, Lumbago with sciatica, unspe cified side M54.40 [place] [address] [place] [id number] [address] [place] [address] Jun, URI, acute J06.9 [facility] [address] [facility] [id number] [address] [place] [phone] May, Lumbago with sciatica, unspe cified side M54.40 [facility] [address] [facility] [id number] [address] [place] [address] May, [facility] [address] [place] [id number] [address] [place] [address] May, Type 2 diabetes mellitus wit h diabetic neuropathy, without long- term current use of insulin E11.40 and Hammer toe of left foot M20.42 [facility] [address] [facility] [id number] [address] [place] [address] May, [facility] [address] [place] [id number] [address] [place] [phone] May, [facility] [address] [place] [id number] [address] [place] [phone] May, [place] [address] [facility] [id number] [address] [place] [phone] Apr, Lumbago with sciatica, unspe cified side M54.40 [facility] [address] [facility] [id number] [address] [place] [address] Apr, [facility] [address] [place] [id number] [address] [place] [address] Apr, [id number] [place] [address] Apr, Hammer toe of left foot M20. 42 ; Chest pain R07.9 ; Preoperative examination Z01.818 and Morbid obesity E66.01 [place] [address] [place] [id number] [address] [place] [address] Apr, Morbid obesity E66.01 ; Bron chitis J40 and High risk medications (not anticoagulants) long-term use Z79.899 [place] [address] [place] [id number] [address] [place] [address] Apr, Lumbago with sciatica, unspe cified side M54.40 [place] [address] [place] [id number] [address] [place] [address] Apr, [place] [address] [place] [id number] [address] [place] [address] Mar, Lumbar neuritis M54.16 and M orbid obesity E66.01 [facility] [address] [place] [id number] [address] [place] [phone] Mar, [facility] [address] [place] [id number] [address] [place] [address] Mar, [facility] [address] [place] [id number] [address] [place] [phone] Mar, Lumbago with sciatica, unspe cified side M54.40 [place] [address] [place] [id number] [address] [place] [address] Mar, Morbid obesity E66.01 ; Gabe lara R05 ; 2+ pitting edema R60.9 and Controlled type 2 diabetes mellitus without complication, without long-term current use of insulin E11.9 [facility] [address] [id number] [address] [place] [address] Feb, [facility] [address] [id number] [address] [place] [address] Feb, Lumbago with sciatica, unspe cified side M54.40 [facility] [address] [id number] [address] [place] [phone] Feb, [facility] [address] [id number] [address] [place] [address] Feb, Controlled type 2 diabetes m ellitus without complication, without long-term current use of insulin E11.9 and Morbid obesity E66.01 [facility] [address] [id number] [address] [place] [address] January, Deformity of left foot M21.9 62 [facility] [address] [id number] [address] [place] [address] January, [facility] [address] [id number] [address] [place] [address] January, Lumbago with sciatica, unspe cified side M54.40 [facility] [address] [id number] [address] [place] [address] January, [facility] [address] [id number] [address] [place] [address] January, Lumbago with sciatica, unspe cified side M54.40 [facility] [address] [id number] [address] [place] [address] January, [facility] [address] [id number] [address] [place] [address] January, Acute right-sided thoracic b ack pain M54.6 [place] [address] [facility] [id number] [address] [place] [address] January, Acute right-sided thoracic b ack pain M54.6 [facility] [address] [facility] [id number] [address] [place] [address] January, Chest pain, unspecified type R07.9 ; Morbid obesity E66.01 and Scabies B86 [facility] [address] [facility] [id number] [address] [place] [address] Dec, Lumbago with sciatica, unspe cified side M54.40 [place] [address] [facility] [id number] [address] [place] [phone] Dec, Toenail fungus B35.1 [place] [address] [place] [id number] [address] [place] [address] Dec, Toenail fungus B35.1 [place] [address] [place] [id number] [address] [place] [address] Dec, Acute right-sided thoracic b ack pain M54.6 [place] [address] [place] [id number] [address] [place] [address] Dec, Lumbago with sciatica, unspe cified side M54.40 [facility] [address] [place] [id number] [address] [place] [address] Nov, Hammer toe of left foot M20. 42 ; Deformity of left foot M21.962 and Type 2 diabetes mellitus with diabetic neuropathy, without long-term current use of insulin E11.40 [facility] [address] [facility] [id number] [address] [place] [phone] Nov, Acute right-sided thoracic b ack pain M54.6 ; Morbid obesity E66.01 and Rt flank pain R10.9 [facility] [address] [facility] [id number] [address] [place] [address] Nov, Lumbago with sciatica, unspe cified side M54.40 [place] [address] [facility] [id number] [address] [place] [address] Oct, Lumbago with sciatica, unspe cified side M54.40 [facility] [address] [facility] [id number] [address] [place] [address] Sep, Lumbago with sciatica, unspe cified side M54.40 [place] [address] [place] [id number] [address] [place] [address] Sep, [place] [address] [place] [id number] [address] [place] [address] Sep, BMI 40.0-44.9, adult Z68.41 ; Lumbago with sciatica, left side M54.42 ; Lumbago with sciatica, right side M54.41 and Other chronic pain G89.29 [place] [address] [place] [id number] [address] [place] [address] Aug, Lumbago with sciatica, unspe cified side M54.40 [place] [address] [place] [id number] [address] [place] [address] Aug, Type 2 diabetes mellitus wit h diabetic neuropathy, without long- term current use of insulin E11.40 ; Hammer toe of left foot M20.42 ; Hypertension, benign I10 and Frequent headaches R51 [place] [address] [place] [id number] [address] [place] [address] Jul, Lumbago with sciatica, unspe cified side M54.40 [place] [address] [place] [id number] [address] [place] [address] Jul, [place] [address] [place] [id number] [address] [place] [address] Jul, Essential hypertension I10 a nd Controlled type 2 diabetes mellitus without complication, without long-term current use of insulin E11.9 [place] [address] [place] [id number] [address] [place] [address] Jul, Essential hypertension I10 ; Controlled type 2 diabetes mellitus without complication, without long-term current use of insulin E11.9 and BMI 40.0-44.9, adult Z68.41 [facility] [address] [facility] [id number] [address] [place] [address] Jul, Dysfunction of left eustachi an tube H69.82 [facility] [address] [facility] [id number] [address] [place] [address] Jul, Lumbago with sciatica, unspe cified side M54.40 [facility] [address] [place] [id number] [address] [place] [id number] Jun, Dental examination Z01.20 [facility] [address] [place] [id number] [address] [place] [phone] Jun, Lumbago with sciatica, unspe cified side M54.40 and Encounter for immunization Z23 [place] [address] [place] [id number] [address] [place] [address] Jun, Dysfunction of left eustachi an tube H69.[address] [place] [id number] [place] [id number] Jun, Dental examination Z01.20 [facility] [address] [place] [id number] [address] [place] [address] Jun, Other chronic pain G89.29 [facility] [id number] [place] [id number] Jun, Dental examination Z01.20 [facility] [address] [place] [id number] [address] [place] [address] Jun, [facility] [address] [facility] [id number] [address] [place] [address] Jun, Bronchitis J40 ; Dysfunction of left eustachian tube H69.82 and BMI 45.0-49.9, adult Z68.42 [facility] [address] [facility] [id number] [address] [place] [address] Jun, Lumbago with sciatica, unspe cified side M54.40 [facility] [address] [place] [id number] [address] [place] [address] May, Type 2 diabetes mellitus wit h diabetic neuropathy, without long- term current use of insulin E11.40 and Hypertension, benign I10 [facility] [address] [address] May, Lumbago with sciatica, unspe cified side M54.40 [facility] [address] [place] [id number] [address] [place] [address] Apr, [facility] [address] [address] Apr, Controlled type 2 diabetes m ellitus without complication, without long-term current use of insulin E11.9 ; Insect bite (nonvenomous), right ankle, initial encounter S90.561A ; Local infection of the skin and subcutaneous tissue, unspecified L08.9 ; Acute swimmer''s ear of left side H60.332 and BMI 45.0-49.9, adult Z68.42 [place] [address] [place] [id number] [address] [place] [address] Apr, Lumbago with sciatica, unspe cified side M54.40 [place] [address] [place] [id number] [address] [place] [address] Mar, [place] [address] [address] Mar, Lumbago with sciatica, unspe cified side M54.40 [place] [address] [place] [id number] [address] [place] [address] Feb, Lumbago with sciatica, unspe cified side M54.40 [facility] [address] [place] [id number] [address] [place] [address] Feb, BMI 45.0-49.9, adult Z68.42 and Obstructive sleep apnea syndrome G47.33 [place] [id number] [place] [address] January, Lumbar neuritis M54.16 [facility] [address] [place] [id number] [address] [place] [address] January, Lumbago with sciatica, unspe cified side M54.40 [place] [address] [place] [id number] [address] [place] [address] Dec, Controlled type 2 diabetes m maribell without complication, without long-term current use of insulin E11.9 ; Erectile dysfunction due to diseases classified elsewhere N52.1 and Mood disorder F39 [place] [address] [place] [id number] [place] [address] Dec, Lumbago with sciatica, unspe cified side M54.40 [place] [address] [address] Dec, Obstructive sleep apnea synd luis G47.33 [place] [address] [place] [id number] [address] [place] [address] Nov, Lumbago with sciatica, unspe cified side M54.40 ; Hypertension, benign I10 and Mood disorder F39 [place] [address] [place] [id number] [address] [place] [address] Nov, Other chronic pain G89.29 [place] [address] [place] [id number] [address] [place] [address] Nov, Lumbago with sciatica, unspe cified side M54.40 [facility] [address] [place] [id number] [address] [place] [id number] Nov, Dental examination Z01.20 [facility] [address] [facility] [id number] [address] [place] [address] Oct, [facility] [address] [place] [id number] [address] [place] [address] Oct, Lumbago with sciatica, unspe cified side M54.40 [facility] [address] [facility] [id number] [address] [place] [address] Oct, Lumbago with sciatica, unspe cified side M54.40 [facility] [address] [facility] [id number] [address] [place] [address] Oct, [facility] [address] [facility] [id number] [address] [place] [phone] Oct, [facility] [address] [facility] [id number] [address] [place] [address] [id number] Oct, Dental examination Z01.20 [facility] [address] [facility] [id number] [address] [place] [address] 08 Oct, 2017 [facility] [address] [place] [id number] [address] [place] [address] Oct, Pain in right knee M25.561 [facility] [address] [facility] [id number] [address] [place] [address] Sep, [facility] [address] [facility] [id number] [address] [place] [address] Sep, Other chronic pain G89.29 [facility] [address] [facility] [id number] [address] [place] [address] Sep, Lumbago with sciatica, unspe cified side M54.40 [facility] [address] [facility] [id number] [address] [place] [phone] Sep, [facility] [address] [place] [id number] [address] [place] [address] Sep, Viral URI J06.9 and BMI 45.0 -49.9, adult Z68.42 [facility] [address] [facility] [id number] [address] [place] [address] Aug, Foreign body hand S60.559A a nd BMI 45.0-49.9, adult Z68.42 [facility] [id number] [place] [address] Aug, [facility] [address] [place] [address] Aug, Lumbago with sciatica, unspe cified side M54.40 [facility] [address] [address] Aug, Vertigo R42 ; Dysfunction of both eustachian tubes H69.83 ; Low back pain M54.5 and Other chronic pain G89.29 [facility] [address] [address] Aug, Dizziness R42 and Acute bila teral otitis media H66.93 [place] [address] [address] Aug, Lumbago with sciatica, unspe cified side M54.40 [facility] [id number] [place] [id number] Jul, Dental examination Z01.20 [place] [address] [place] [id number] [address] [place] [address] Jul, [facility] [address] [place] [id number] [address] [place] [address] Jul, [place] [address] [address] Jul, Dysfunction of both eustachi an tubes H69.83 [place] [address] [place] [id number] [address] [place] [address] Jul, Controlled type 2 diabetes m taraitus without complication, without long-term current use of insulin E11.9 [facility] [address] [place] [id number] [address] [place] [address] Jul, Controlled type 2 diabetes m ellitus without complication, without long-term current use of insulin E11.9 [facility] [address] [facility] [id number] [address] [place] [address] Jul, Dizziness R42 and BMI 40.0-4 4.9, adult Z68.41 [facility] [address] [id number] [address] [place] [address] Jul, Controlled type 2 diabetes m ellitus without complication, without long-term current use of insulin E11.9 [facility] [address] [id number] [address] [place] [address] Jul, Lumbago with sciatica, unspe cified side M54.40 [facility] [id number] [place] [address] [id number] Jul, Dental examination Z01.20 [facility] [address] [id number] [address] [place] [address] Jun, [facility] [address] [id number] [place] [address] [id number] Jun, Dental examination Z01.20 [facility] [address] [id number] [address] [place] [address] Jun, Controlled type 2 diabetes m ellitus without complication, without long-term current use of insulin E11.9 [facility] [address] [id number] [address] [place] [address] Jun, Lumbago with sciatica, unspe cified side M54.40 [facility] [id number] [place] [address] [id number] May, Dental examination Z01.20 [facility] [address] [id number] [address] [place] [address] May, Controlled type 2 diabetes m ellitus without complication, without long-term current use of insulin E11.9 [facility] [address] [id number] [address] [place] [address] [id number] May, Dental examination Z01.20 [facility] [address] [facility] [id number] [address] [place] [id number] 18 May, 2017 Bronchitis J40 ; Dry mouth R 68.2 ; Non morbid obesity E66.9 and Controlled type 2 diabetes mellitus without complication, without long-term current use of insulin E11.9 [facility] [address] [id number] [address] [place] [phone] 16 May, 2017 Encounter for immunization Z 23 [place] [address] [facility] [id number] [address] [place] [phone] 07 May, 2017 Lumbago with sciatica, unspe cified side M54.40 [place] [address] [facility] [id number] [address] [place] [id number] 05 May, 2017 [facility] [address] [place] [id number] [place] [id number] Apr, Dental examination Z01.20 [place] [address] [place] [id number] [address] [place] [phone] Apr, Lumbago with sciatica, unspe cified side M54.40 [facility] [address] [id number] [address] [place] [phone] Mar, Lumbago with sciatica, left side M54.42 [place] [address] [place] [id number] [address] [place] [id number] Mar, [facility] [address] [facility] [id number] [address] [place] [phone] Mar, Lumbar neuritis M54.16 [facility] [address] [id number] [address] [place] [phone] Mar, [facility] [address] [id number] [place] [address] [id number] Mar, Dental examination Z01.20 [facility] [address] [facility] [id number] [address] [place] [id number] Mar, MELE (obstructive sleep apnea ) G47.33 ; Neuropathy involving both lower extremities G57.93 and Frequent headaches R51 [place] [id number] [id number] [address] [place] [phone] Mar, Lumbago with sciatica, unspe cified side M54.40 [facility] [address] [id number] [address] [place] [id number] Feb, Lumbago with sciatica, unspe cified side M54.40 and Controlled type 2 diabetes mellitus without complication, without long-term current use of insulin E11.9 [place] [address] [id number] [address] [place] [phone] January, Hypertension, benign I10 and Bilateral low back pain with sciatica, sciatica laterality unspecified M54.40 [place] [address] [id number] [address] [place] [phone] January, Hypertension, benign I10 ; L umbago with sciatica, unspecified side M54.40 ; Other chronic pain G89.29 and Controlled type 2 diabetes mellitus without complication, without long-term current use of insulin E11.9 [place] [address] [id number] [address] [place] [phone] January, Lumbar neuritis M54.16 [place] [address] [id number] [address] [place] [phone] January, [place] [address] [id number] [address] [place] [address] Dec, Lumbago with sciatica, right side M54.41 and Lumbar neuritis M54.16 [place] [address] [id number] [address] [place] [address] Dec, Lumbar neuritis M54.16 [place] [address] [id number] [address] [place] [address] Dec, Lumbar neuritis M54.16 [place] [address] [id number] [address] [place] [address] Nov, Lumbar neuritis M54.16 ; Lum bago with sciatica, right side M54.41 ; Controlled type 2 diabetes mellitus without complication, without long-term current use of insulin E11.9 and Rash and nonspecific skin eruption R21 [place] [id number] [place] [address] Nov, Lumbar neuritis M54.16 and P alexi miroslava L23.7 [place] [address] [place] [id number] [place] [address] Oct, Lumbar neuritis M54.16 ; Cou ghing R05 and Mood disorder F39 [place] [address] [address] Sep, Lumbago with sciatica, right side M54.41 [place] [address] [address] Sep, Adjustment disorder with dis turbance of emotion F43.29 and Pain management R52 [place] [address] [place] [id number] [address] [place] [address] Sep, [place] [address] [address] Sep, [place] [address] [address] Sep, Controlled type 2 diabetes evens reyna without complication, without long-term current use of insulin E11.9 and Lumbago with sciatica, unspecified side M54.40 [place] [address] [place] [id number] [place] [address] Aug, Controlled type 2 diabetes evens reyna without complication, without long-term current use of insulin E11.9 ; Pain in right knee M25.561 ; Pain in left knee M25.562 ; Other chronic pain G89.29 ; Lumbago with sciatica, right side M54.41 ; Neck pain M54.2 and Encounter for immunization Z23 [place] [address] [place] [id number] [place] [address] Jul, [facility] [address] [id number] [address] [place] [address] Jul, Controlled type 2 diabetes evens reyna without complication, without long-term current use of insulin E11.9 [facility] [address] [id number] [address] [place] [id number] 17 Jul, 2016 [facility] [address] [id number] [address] [place] [address] Jul, [facility] [address] [id number] [address] [place] [address] Jul, Lumbago with sciatica, left side M54.42 ; Lumbago with sciatica, right side M54.41 and Other chronic pain G89.29 [facility] [address] [id number] [address] [place] [address] Jul, [facility] [address] [id number] [address] [place] [address] Jul, [facility] [address] [id number] [address] [place] [address] Jun, [facility] [address] [id number] [address] [place] [address] Jun, Lumbago with sciatica, right side M54.41 and Other chronic pain G89.29 [facility] [address] [id number] [address] [place] [address] 13 Jun, 2016 Cervicalgia M54.2 ; Lumbago with sciatica, unspecified side M54.40 and Other chronic pain G89.29 [facility] [address] [id number] [address] [place] [address] 15 May, 2016 Pain in right knee M25.561 ; Pain in left knee M25.562 and Other chronic pain G89.29 [facility] [address] [id number] [address] [place] [address] 14 May, 2016 [facility] [address] [id number] [address] [place] [address] Apr, Other chronic pain G89.29 an d Pain in right knee M25.561 [facility] [address] [id number] [address] [place] [address] Apr, Pain in right knee M25.561 [facility] [address] [id number] [address] [place] [phone] Mar, [facility] [address] [id number] [address] [place] [address] Mar, Mood disorder F39 and Contro lled type 2 diabetes mellitus without complication, without long-term current use of insulin E11.9 [facility] [address] [id number] [address] [place] [address] Mar, Pain in right knee M25.561 ; Pain in left knee M25.562 ; Other chronic pain G89.29 ; Obstructive sleep apnea syndrome G47.33 ; Mood disorder F39 and Controlled type 2 diabetes mellitus without complication, without long- term current use of insulin E11.9 [facility] [address] [id number] [address] [place] [address] Mar, [facility] [address] [id number] [address] [place] [id number] Feb, Dental examination Z01.20 [facility] [address] [id number] [address] [place] [address] Feb, [facility] [address] [id number] [address] [place] [address] Feb, Osteoarthritis of right knee , unspecified osteoarthritis type M17.9 [facility] [address] [id number] [address] [place] [address] January, [facility] [address] [id number] [address] [place] [id number] January, Dental examination Z01.20 [facility] [address] [id number] [address] [place] [address] January, [facility] [address] [id number] [address] [place] [id number] January, Dental examination Z01.20 an d Caries K02.9 [facility] [address] [id number] [address] [place] [address] Dec, Encounter for other preproce dural examination Z01.818 [facility] [address] [id number] [address] [place] [address] Dec, [facility] [address] [id number] [address] [place] [address] Dec, Knee pain M25.569 [facility] [address] [id number] [address] [place] [address] Dec, Pain in right knee M25.561 [facility] [address] [id number] [address] [place] [address] Dec, [facility] [address] [id number] [address] [place] [phone] Dec, [facility] [address] [id number] [address] [place] [phone] Dec, Encounter for immunization Z 23 [facility] [address] [id number] [address] [place] [phone] Dec, [facility] [address] [id number] [address] [place] [phone] Dec, [facility] [address] [id number] [address] [place] [address] Nov, [facility] [address] [id number] [address] [place] [address] Nov, Hypertension, benign I10 ; C ervicalgia M54.2 ; Pain in right knee M25.561 and Pain in left knee M25.562 [facility] [address] [id number] [address] [place] [phone] Oct, [place] [address] [facility] [id number] [address] [place] [address] Oct, [place] [address] [facility] [id number] [address] [place] [address] Oct, Osteoarthritis of both knees M17.0 [place] [address] [facility] [id number] [address] [place] [phone] Oct, [place] [address] [facility] [id number] [address] [place] [phone] Oct, Low back pain M54.5 [place] [address] [facility] [id number] [address] [place] [address] Oct, Low back pain M54.5 ; Sciati ca, unspecified side M54.30 ; Pain in right knee M25.561 ; Pain in left knee M25.562 ; Pain in right shoulder M25.511 and Pain in left shoulder M25.512 [place] [address] [facility] [id number] [address] [place] [address] Oct, [place] [address] [facility] [id number] [address] [place] [address] Sep, Pain in right hip M25.551 [place] [address] [place] [id number] [address] [place] [phone] Sep, Acute upper respiratory infe ction, unspecified J06.9 [place] [address] [place] [id number] [address] [place] [phone] Aug, Acute upper respiratory infe ction, unspecified J06.9 and Other viral agents as the cause of diseases classified elsewhere B97.89 [place] [address] [place] [id number] [address] [place] [phone] Jul, Arthritis M19.90 [place] [address] [place] [id number] [address] [place] [address] Jun, Arthritis M19.90 ; Pain in r ight hip M25.551 ; Pain in left hip M25.552 ; Bilateral low back pain with sciatica, sciatica laterality unspecified M54.40 ; Neck pain M54.2 ; Upper back pain M54.9 and Knee pain, unspecified laterality M25.569 [facility] [address] [id number] [address] [place] [address] 10 May, 2015 Osteoarthritis of both knees 715.96 [facility] [address] [id number] [address] [place] [address] May, Rash 782.1 [facility] [address] [id number] [address] [place] [address] Apr, Lumbar strain 847.2 [facility] [address] [id number] [address] [place] [address] Apr, Rash 782.1 [facility] [address] [id number] [address] [place] [address] Mar, Rash 782.1 [facility] [address] [id number] [address] [place] [phone] Feb, Rash 782.1 ; Hemorrhoids 455 .6 and Constipation 564.00 [facility] [address] [id number] [address] [place] [address] Feb, Osteoarthritis of both knees 715.96 [facility] [address] [id number] [address] [place] [id number] January, [facility] [address] [id number] [address] [place] [phone] Dec, [facility] [address] [id number] [address] [place] [phone] 14 Dec, 2014 [facility] [address] [id number] [address] [place] [phone] Dec, [facility] [address] [id number] [address] [place] [phone] Nov, [facility] [address] [id number] [address] [place] [address], [place] [address] 18 Nov, 2014 [facility] [address] [id number] [address] [place] [address], [place] [address] 18 Nov, 2014 [facility] [address] [id number] [address] [place] [address], [place] [address] Nov, [facility] [address] [id number] [address] [place] [address], [place] [address] Nov, [facility] [address] [id number] [address] [place] [address], [place] [address] Nov, [facility] [address] [id number] [address] [place] [address], [place] [address] Oct, [facility] [address] [id number] [address] [place] [address], [place] [address] Oct, [facility] [address] [id number] [address] [place] [address], [place] [address] Oct, [facility] [address] [id number] [address] [place] [address], [place] [address] Oct, [facility] [address] [id number] [address] [place] [address], [place] [address] Oct, [facility] [address] [id number] [address] [place] [address], [place] [address] Oct, [facility] [address] [id number] [address] [place] [address], [place] [address] Oct, 2014 [facility] [address] [id number] [address] [place] [address], [place] [address] Oct, [facility] [address] [id number] [address] [place] [address], [place] [address] Oct, [facility] [address] [id number] [address] [place] [address], [place] [address] 05 Oct, 2014 [facility] [address] [id number] [address] [place] [address], [place] [address] 05 Oct, 2014 [facility] [address] [id number] [address] [place] [address], [place] [address] Sep, [facility] [address] [id number] [address] [place] [address], [place] [address] Sep, [facility] [address] [id number] [address] [place] [address], [place] [address] Sep, [facility] [address] [id number] [address] [place] [address], [place] [address] Sep, [facility] [address] [id number] [address] [place] [address], [place] [address] Sep, [facility] [address] [id number] [address] [place] [address], [place] [address] Sep, [facility] [address] [id number] [address] [place] [address], [place] [address] Aug, [facility] [address] [id number] [address] [place] [address], [place] [address] Aug, [facility] [address] [id number] [address] [place] [address], [place] [address] Aug, [facility] [address] [id number] [address] [place] [address], [place] [address] Aug, [facility] [address] [id number] [address] [place] [address], [place] [address] Aug, [facility] [address] [id number] [address] [place] [address], [place] [address] Aug, [facility] [address] [id number] [address] [place] [address], [place] [address] Aug, [facility] [address] [id number] [address] [place] [address], [place] [address] Aug, [facility] [address] [id number] [address] [place] [address], [place] [address] Aug, [facility] [address] [id number] [address] [place] [address], [place] [address] Aug, [facility] [address] [id number] [address] [place] [address], [place] [address] Jul, [facility] [address] [id number] [address] [place] [address], [place] [address] Jul, [facility] [address] [id number] [address] [place] [address], [place] [address] Jul, [facility] [address] [id number] [address] [place] [address], [place] [address] Jul, [facility] [address] [id number] [address] [place] [address], [place] [address] Jun, [facility] [address] [id number] [address] [place] [address], [place] [address] Jun, [facility] [address] [id number] [address] [place] [address], [place] [address] Jun, [facility] [address] [id number] [address] [place] [address], [place] [address] Jun, [facility] [address] [id number] [address] [place] [address] Jun, [facility] [address] [id number] [address] [place] [address], [place] [address] Jun, [facility] [address] [id number] [address] [place] [address] Jun, [facility] [address] [id number] [address] [place] [address], [place] [address] Jun, [facility] [address] [id number] [address] [place] [address], [place] [address] May, [facility] [address] [id number] [address] [place] [address], [place] [address] May, [facility] [address] [id number] [address] [place] [address], [place] [address] 19 May, 2013 [facility] [address] [id number] [address] [place] [address], [place] [address] 19 May, 2013 [facility] [address] [id number] [address] [place] [address], [place] [address] 15 May, 2014 [facility] [address] [id number] [address] [place] [address], [place] [address] 15 May, 2014 [facility] [address] [id number] [address] [place] [address], [place] [address] 15 May, 2014 [facility] [address] [id number] [address] [place] [address], [place] [address] 15 May, 2014 [facility] [address] [id number] [address] [place] [address], [place] [address] Apr, [facility] [address] [id number] [address] [place] [address], [place] [address] Apr, [facility] [address] [id number] [address] [place] [address], [place] [address] Apr, [facility] [address] [id number] [address] [place] [address], [place] [address] Apr, [facility] [address] [id number] [address] [place] [address], [place] [address] Apr, [facility] [address] [id number] [address] [place] [address], [place] [address] Apr, [facility] [address] [id number] [address] [place] [address], [place] [address] Apr, [facility] [address] [id number] [address] [place] [address], [place] [address] Apr, [facility] [address] [id number] [address] [place] [address], [place] [address] Apr, [facility] [address] [id number] [address] [place] [address], [place] [address] Apr, [facility] [address] [id number] [facility] [place] [address] Apr, [facility] [address] [id number] [address] [place] [address], [place] [address] Apr, [facility] [address] [id number] [address] [place] [address], [place] [address] Mar, [facility] [address] [id number] [address] [place] [address], [place] [address] Mar, [facility] [address] [id number] [address] [place] [address], [place] [address] Mar, [facility] [address] [id number] [address] [place] [address], [place] [address] Mar, [facility] [address] [id number] [address] [place] [address], [place] [address] Mar, [facility] [address] [id number] [address] [place] [address], [place] [address] Mar, [facility] [address] [id number] [address] [place] [address], [place] [address] Feb, [facility] [address] [id number] [address] [place] [address], [place] [address] Feb, [facility] [address] [id number] [address] [place] [address], [place] [address] Feb, [facility] [address] [id number] [address] [place] [address], [place] [address] Feb, [facility] [address] [id number] [address] [place] [address], [place] [address] Feb, [facility] [address] [id number] [address] [place] [address], [place] [address] Feb, [facility] [address] [id number] [address] [place] [address], [place] [address] Feb, [facility] [address] [id number] [address] [place] [address], [place] [address] Feb, [facility] [address] [id number] [address] [place] [address], [place] [address] Feb, [facility] [address] [id number] [address] [place] [address], [place] [address] Feb, [facility] [address] [id number] [address] [place] [address], [place] [address] Feb, [facility] [address] [id number] [address] [place] [address], [place] [address] Feb, [facility] [address] [id number] [address] [place] [address], [place] [address] Feb, [facility] [address] [id number] [address] [place] [address], [place] [address] Feb, [facility] [address] [id number] [address] [place] [address], [place] [address] January, [facility] [address] [id number] [address] [place] [address], [place] [address] January, [facility] [address] [id number] [address] [place] [address], [place] [address] January, [facility] [address] [id number] [address] [place] [address], [place] [address] January, [facility] [address] [id number] [address] [place] [address], [place] [address] January, [facility] [address] [id number] [address] [place] [address], [place] [address] January, [facility] [address] [id number] [address] [place] [address], [place] [address] Dec, [facility] [address] [id number] [address] [place] [address], [place] [address] Dec, [facility] [address] [id number] [address] [place] [address], [place] [address] Dec, [facility] [address] [id number] [facility] [place] [address] 29 Dec, 2013 [facility] [address] [id number] [address] [place] [address], [place] [address] Dec, [facility] [address] [id number] [address] [place] [address], [place] [address] Dec, [facility] [address] [id number] [address] [place] [address], [place] [address] Dec, [facility] [address] [id number] [address] [place] [address], [place] [address] Dec, [facility] [address] [id number] [address] [place] [address], [place] [address] Nov, [facility] [address] [id number] [address] [place] [address], [place] [address] Nov, [facility] [address] [id number] [address] [place] [address], [place] [address] Nov, [facility] [address] [id number] [address] [place] [address], [place] [address] Nov, [facility] [address] [id number] [address] [place] [address], [place] [address] Nov, [facility] [address] [id number] [address] [place] [address], [place] [address] Nov, [facility] [address] [id number] [address] [place] [address], [place] [address] Nov, [facility] [address] [id number] [address] [place] [address], [place] [address] Nov, [facility] [address] [id number] [address] [place] [address], [place] [address] Oct, [facility] [address] [id number] [address] [place] [address], [place] [address] Oct, [facility] [address] [id number] [address] [place] [address], [place] [address] Oct, [facility] [address] [id number] [facility] [place] [address] Oct, [facility] [address] [id number] [address] [place] [address], [place] [address] Oct, [facility] [address] [id number] [address] [place] [address], [place] [address] Oct, [facility] [address] [id number] [address] [place] [address], [place] [address] Oct, [facility] [address] [id number] [address] [place] [address], [place] [address] Oct, [facility] [address] [id number] [address] [place] [address], [place] [address] Oct, [facility] [facility] [address] [id number] [address] [place] [address], [place] [address] Oct, [facility] [address] [id number] [address] [place] [address], [place] [address] Sep, [facility] [address] [id number] [address] [place] [address], [place] [address] Sep, [facility] [address] [id number] [address] [place] [address], [place] [address] Sep, [facility] [address] [id number] [address] [place] [address], [place] [address] Sep, [facility] [address] [id number] [address] [place] [address], [place] [address] Sep, [facility] [address] [id number] [address] [place] [address], [place] [address] Sep, [facility] [address] [id number] [address] [place] [address], [place] [address] Aug, [facility] [address] [id number] [address] [place] [address], [place] [address] Aug, [facility] [address] [id number] [address] [place] [address], [place] [address] Aug, [facility] [address] [id number] [address] [place] [address], [place] [address] Aug, [facility] [address] [id number] [address] [place] [address], [place] [address] Aug, [facility] [address] [id number] [address] [place] [address], [place] [address] Aug, [facility] [address] [id number] [address] [place] [address], [place] [address] Aug, [facility] [address] [id number] [address] [place] [address], [place] [address] Aug, [facility] [address] [id number] [address] [place] [address], [place] [address] Jul, [facility] [address] [id number] [address] [place] [address], [place] [address] Jul, [facility] [address] [id number] [address] [place] [address], [place] [address] Jul, [facility] [address] [id number] [address] [place] [address], [place] [address] Jul, [facility] [address] [id number] [address] [place] [address], [place] [address] Jul, [facility] [address] [id number] [address] [place] [address], [place] [address] Jul, [facility] [address] [id number] [address] [place] [address], [place] [address] Jun, [facility] [address] [id number] [address] [place] [address], [place] [address] Jun, [facility] [address] [id number] [address] [place] [address], [place] [address] Jun, [facility] [address] [id number] [address] [place] [address], [place] [address] May, [facility] [address] [id number] [address] [place] [address], [place] [address] May, [facility] [address] [id number] [address] [place] [address], [place] [address] May, [facility] [address] [id number] [address] [place] [address], [place] [address] Apr, [facility] [address] [id number] [address] [place] [address], [place] [address] Apr, [facility] [address] [id number] [address] [place] [address], [place] [address] Apr, [facility] [address] [id number] [address] [place] [address], [place] [address] Apr, [facility] [address] [id number] [address] [place] [address], [place] [address] Mar, [facility] [address] [id number] [address] [place] [address], [place] [address] Mar, [facility] [address] [id number] [address] [place] [address], [place] [address] Mar, [facility] [address] [id number] [address] [place] [address], [place] [address] Mar, [facility] [address] [id number] [address] [place] [address], [place] [address] Feb, [facility] [address] [id number] [address] [place] [address], [place] [address] Feb, [facility] [address] [id number] [address] [place] [address], [place] [address] Feb, [facility] [address] [id number] [address] [place] [address], [place] [address] Feb, [facility] [address] [id number] [address] [place] [address], [place] [address] January, [facility] [address] [id number] [address] [place] [address] January, [facility] [address] [id number] [address] [place] [address], [place] [address] January, [facility] [address] [id number] [address] [place] [address], [place] [address] Nov, [facility] [address] [id number] [address] [place] [address], [place] [address] Nov, [facility] [address] [id number] [address] [place] [address], [place] [address] Oct, [facility] [address] [id number] [address] [place] [address], [place] [address] Oct, [facility] [address] [id number] [address] [place] [address], [place] [address] Oct, [facility] [address] [id number] [address] [place] [address], [place] [address] Oct, [facility] [address] [id number] [address] [place] [address], [place] [address] Sep, [facility] [address] [id number] [address] [place] [address], [place] [address] Sep, [facility] [address] [id number] [address] [place] [address], [place] [address] Sep, [facility] [address] [id number] [address] [place] [address], [place] [address] Aug, [facility] [address] [id number] [address] [place] [address], [place] [address] Aug, [facility] [address] [id number] [address] [place] [address], [place] [address] Aug, [facility] [address] [id number] [address] [place] [address], [place] [address] Aug, [facility] [address] [id number] [address] [place] [address], [place] [address] Aug, [facility] [address] [id number] [address] [place] [address], [place] [address] Aug, [facility] [address] [id number] [address] [place] [address], [place] [address] Jul, [facility] [address] [id number] [address] [place] [address], [place] [address] Jul, [facility] [address] [id number] [address] [place] [address], [place] [address] Jun, [facility] [address] [id number] [address] [place] [address], [place] [address] Jun, [facility] [address] [id number] [address] [place] [address], [place] [address] Jun, [facility] [address] [id number] [address] [place] [address], [place] [address] Apr, [facility] [address] [id number] [address] [place] [address], [place] [address] Apr, [facility] [address] [id number] [address] [place] [address], [place] [address] Mar, [facility] [address] [id number] [address] [place] [address], [place] [address] Mar, [facility] [address] [id number] [address] [place] [address], [place] [address] Mar, [facility] [address] [id number] [address] [place] [address], [place] [address] Mar, [facility] [address] [id number] [address] [place] [address], [place] [address] Feb, [facility] [address] [id number] [address] [place] [address], [place] [address] Feb, [facility] [address] [id number] [address] [place] [address], [place] [address] Feb, [facility] [address] [id number] [address] [place] [address], [place] [address] January, [facility] [address] [id number] [address] [place] [address], [place] [address] January, [facility] [address] [id number] [address] [place] [address], [place] [address] January, [facility] [address] [id number] [address] [place] [address], [place] [address] January, [facility] [address] [id number] [address] [place] [address], [place] [address] Dec, [facility] [address] [id number] [address] [place] [address], [place] [address] Dec, [facility] [address] [id number] [address] [place] [address], [place] [address] Nov, [facility] [address] [id number] [address] [place] [address], [place] [address] Nov, [facility] [address] [id number] [address] [place] [address], [place] [address] Oct, [facility] [address] [id number] [address] [place] [address], [place] [address] Oct, [facility] [address] [id number] [address] [place] [address], [place] [address] Sep, [facility] [address] [id number] [address] [place] [address], [place] [address] Sep, [facility] [address] [id number] [address] [place] [address], [place] [address] Sep, [facility] [address] [id number] [address] [place] [address], [place] [address] Sep, [facility] [address] [id number] [address] [place] [address], [place] [address] Aug, [facility] [address] [id number] [address] [place] [address], [place] [address] Aug, [facility] [address] [id number] [address] [place] [address] Aug, [facility] [address] [id number] [address] [place] [address] Jul, [facility] [address] [id number] [address] [place] [address] Aug, [facility] [address] [id number] [address] [place] [address] Aug, [facility] [address] [id number] [address] [place] [address] Aug, [facility] [address] [id number] [address] [place] [address] Aug, [facility] [address] [id number] [address] [place] [address] Jul, [facility] [address] [id number] [address] [place] [address] Jul, [facility] [address] [id number] [address] [place] [id number] Jul, [facility] [address] [id number] [address] [place] [id number] Jun, [facility] [address] [id number] [address] [place] [id number] Jun, [facility] [address] [id number] [address] [place] [id number] Jun, [facility] [address] [id number] [address] [place] [address] Apr, [facility] [address] [id number] [address] [place] [id number] Mar, IMMUNIZATIONS No Known Immunizations SOCIAL HISTORY [...]
--- OUTSIDE RECORDS SUMMARY | 2020-03-18 15:07 | XMS REPORT ---
Author Author Araseli George Doctor Organization [facility] Address Unknown Phone Unavailable Care Team Providers Care Signal Operator Name Role Phone Migration, Doctor Unavailable Unavailable PROBLEMS Type Condition ICD9-CM Code FHW75-ZE Code Onset Dates Condition S tatus SNOMED Code Problem Hypertension, benign I10 Active 83421884 Problem Other chronic pain G89.29 Active 8 4697005 Problem Lumbago with sciatica, unspecified side M54.40 Active 130096966 Problem Controlled type 2 diabetes m ellitus without complication, without long- term current use of insulin E11.9 Active 801378274 Problem Lumbago with sciatica, right side M54.41 Active 758981429 Problem Adjustment disorder with disturbance of emotion F4 3.29 Active 97030609 Problem MELE (obstructive sleep apnea) G47.33 Active 11319228 Problem Non morbid obesity E66.9 Active 4 86543714 Problem Hammer toe of left foot M20.42 Active 110326749 Problem Mood disorder F39 Active 493466 05 Problem Deformity of left foot M21.962 Active 227921240 Problem Lumbago with sciatica, left side M54.42 Active 391127995 Problem Erectile dysfunction due to diseases classified elsewhere N52.1 Active 718288431 Problem Obstructive sleep apnea syndrome G47.33 Active 30875959 Problem Type 2 diabetes mellitus wit h diabetic neuropathy, without long-term current use of insulin E11.40 Active 48558 006 Problem Essential hypertension I10 Active 58242265 ALLERGIES No Information ENCOUNTERS Encounter Location Date Diagnosis [facility] [address] [facility] [id number] [address] [place] [id number] 18 Nov, 2019 Viral URI J06.9 and Flu-like symptoms R68.89 [facility], [place] [address] [facility] [id number] [address] [place] [address] 09 Nov, 2019 Type 2 diabetes mellitus wit h diabetic neuropathy, without long- term current use of insulin E11.40 ; Family history of prostate cancer Z80.42 and Prostate cancer screening Z12.5 [facility] [place] [address] [facility] [id number] [address] [place] [address] Nov, [facility] [place] [address] [facility] [id number] [address] [place] [phone] Sep, [facility] [place] [address] [facility] [id number] [address] [place] [phone] Aug, [facility] [place] [address] [facility] [id number] [address] [place] [phone] Jul, Lumbago with sciatica, unspe cified side M54.40 [facility] [place] [address] [facility] [id number] [address] [place] [address] Jun, Lumbago with sciatica, unspe cified side M54.40 [facility] [place] [address] [place] [id number] [address] [place] [phone] Jun, URI, acute J06.9 [facility] [place] [address] [facility] [id number] [address] [place] [address] May, Lumbago with sciatica, unspe cified side M54.40 [facility] [place] [address] [facility] [id number] [address] [place] [id number] May, [facility] [place] [address] [place] [id number] [address] [place] [address] May, Type 2 diabetes mellitus wit h diabetic neuropathy, without long- term current use of insulin E11.40 and Hammer toe of left foot M20.42 [facility] [place] [address] [facility] [id number] [address] [place] [phone] May, [facility] [place] [address] [facility] [id number] [address] [place] [phone] May, [facility] [place] [address] [facility] [id number] [address] [place] [address] May, [facility] [place] [address] [place] [id number] [address] [place] [address] Apr, Lumbago with sciatica, unspe cified side M54.40 [facility] [place] [address] [facility] [id number] [address] [place] [phone] Apr, [facility] [place] [address] [facility] [id number] [address] [place] [id number] Apr, [id number] [place] [address] Apr, Hammer toe of left foot M20. 42 ; Chest pain R07.9 ; Preoperative examination Z01.818 and Morbid obesity E66.01 [facility] [place] [address] [facility] [id number] [address] [place] [address] Apr, Morbid obesity E66.01 ; Bron chitis J40 and High risk medications (not anticoagulants) long-term use Z79.899 [facility] [place] [address] [facility] [id number] [address] [place] [address] Apr, Lumbago with sciatica, unspe cified side M54.40 [facility] [place] [address] [facility] [id number] [address] [place] [address] Apr, [facility] [place] [address] [facility] [id number] [address] [place] [address] Mar, Lumbar neuritis M54.16 and M orbid obesity E66.01 [facility] [place] [address] [facility] [id number] [address] [place] [phone] Mar, [facility] [place] [address] [facility] [id number] [address] [place] [phone] Mar, [facility] [place] [address] [facility] [id number] [address] [place] [address] Mar, Lumbago with sciatica, unspe cified side M54.40 [facility] [place] [address] [facility] [id number] [address] [place] [address] Mar, Morbid obesity E66.01 ; Coug marco R05 ; 2+ pitting edema R60.9 and Controlled type 2 diabetes mellitus without complication, without long-term current use of insulin E11.9 [place] [address] [facility] [id number] [address] [place] [phone] Feb, [facility] [place] [address] [facility] [id number] [address] [place] [address] Feb, Lumbago with sciatica, unspe cified side M54.40 [place] [address] [id number] [address] [place] [address] Feb, [place] [address] [id number] [address] [place] [address] Feb, Controlled type 2 diabetes m ellitus without complication, without long-term current use of insulin E11.9 and Morbid obesity E66.01 [place] [address] [place] [id number] [address] [place] [address] January, Deformity of left foot M21.9 [address] [place] [address] [id number] [address] [place] [address] January, [place] [address] [facility] [id number] [address] [place] [address] January, Lumbago with sciatica, unspe cified side M54.40 [place] [address] [facility] [id number] [address] [place] [phone] January, [facility] [place] [address] [id number] [address] [place] [address] January, Lumbago with sciatica, unspe cified side M54.40 [place] [address] [facility] [id number] [address] [place] [address] January, [place] [address] [facility] [id number] [address] [place] [phone] January, Acute right-sided thoracic b ack pain M54.6 [place] [address] [facility] [id number] [address] [place] [address] January, Acute right-sided thoracic b ack pain M54.6 [facility] [place] [address] [facility] [id number] [address] [place] [address] January, Chest pain, unspecified type R07.9 ; Morbid obesity E66.01 and Scabies B86 [facility] [place] [address] [facility] [id number] [address] [place] [address] Dec, Lumbago with sciatica, unspe cified side M54.40 [facility] [place] [address] [facility] [id number] [address] [place] [phone] Dec, Toenail fungus B35.1 [facility] [place] [address] [facility] [id number] [address] [place] [address] Dec, Toenail fungus B35.1 [place] [address] [facility] [id number] [address] [place] [phone] Dec, Acute right-sided thoracic b ack pain M54.6 [place] [id number] [facility] [id number] [address] [place] [address] Dec, Lumbago with sciatica, unspe cified side M54.40 [facility] [place] [address] [facility] [id number] [address] [place] [address] Nov, Hammer toe of left foot M20. 42 ; Deformity of left foot M21.962 and Type 2 diabetes mellitus with diabetic neuropathy, without long-term current use of insulin E11.40 [facility] [address] [facility] [id number] [address] [place] [phone] Nov, Acute right-sided thoracic b ack pain M54.6 ; Morbid obesity E66.01 and Rt flank pain R10.9 [facility] [place] [address] [facility] [id number] [address] [place] [address] Nov, Lumbago with sciatica, unspe cified side M54.40 [facility] [place] [address] [facility] [id number] [address] [place] [phone] Oct, Lumbago with sciatica, unspe cified side M54.40 [place] [address] [facility] [id number] [address] [place] [address] Sep, Lumbago with sciatica, unspe cified side M54.40 [place] [address] [facility] [id number] [address] [place] [address] Sep, [place] [address] [facility] [id number] [address] [place] [address] Sep, BMI 40.0-44.9, adult Z68.41 ; Lumbago with sciatica, left side M54.42 ; Lumbago with sciatica, right side M54.41 and Other chronic pain G89.29 [place] [address] [place] [id number] [address] [place] [address] Aug, Lumbago with sciatica, unspe cified side M54.40 [place] [address] [facility] [id number] [address] [place] [address] Aug, Type 2 diabetes mellitus wit h diabetic neuropathy, without long- term current use of insulin E11.40 ; Hammer toe of left foot M20.42 ; Hypertension, benign I10 and Frequent headaches R51 [place] [address] [facility] [id number] [address] [place] [address] Jul, Lumbago with sciatica, unspe cified side M54.40 [place] [address] [facility] [id number] [address] [place] [phone] Jul, [place] [address] [facility] [id number] [address] [place] [address] Jul, Essential hypertension I10 a nd Controlled type 2 diabetes mellitus without complication, without long-term current use of insulin E11.9 [place] [address] [facility] [id number] [address] [place] [phone] Jul, Essential hypertension I10 ; Controlled type 2 diabetes mellitus without complication, without long-term current use of insulin E11.9 and BMI 40.0-44.9, adult Z68.41 [facility], [place] [address] [id number] [address] [place] [address] Jul, Dysfunction of left eustachi an tube H69.82 [facility], [place] [address] [id number] [address] [place] [phone] Jul, Lumbago with sciatica, unspe cified side M54.40 [facility] [address] [id number] [address] [place] [id number] Jun, Dental examination Z01.20 [facility] [place] [address] [id number] [address] [place] [address] Jun, Lumbago with sciatica, unspe cified side M54.40 and Encounter for immunization Z23 [facility] [place] [address] [facility] [id number] [address] [place] [address] Jun, Dysfunction of left eustachi an tube H69.[address] [place] [id number] [place] [address] [id number] Jun, Dental examination Z01.20 [facility] [place] [address] [facility] [id number] [address] [place] [phone] Jun, Other chronic pain G89.29 [facility] [address] [facility] [id number] [address] [place] [address] [id number] Jun, Dental examination Z01.20 [facility] [place] [address] [facility] [id number] [address] [place] [phone] Jun, [facility] [place] [address] [facility] [id number] [address] [place] [address] Jun, Bronchitis J40 ; Dysfunction of left eustachian tube H69.82 and BMI 45.0-49.9, adult Z68.42 [facility] [place] [address] [facility] [id number] [address] [place] [phone] Jun, Lumbago with sciatica, unspe cified side M54.40 [facility] [place] [address] [facility] [id number] [address] [place] [phone] May, Type 2 diabetes mellitus wit h diabetic neuropathy, without long- term current use of insulin E11.40 and Hypertension, benign I10 [facility], [place] [id number] [place] [address] May, Lumbago with sciatica, unspe cified side M54.40 [facility] [address] [facility] [id number] [address] [place] [phone] Apr, [facility] [place] [address] [address] Apr, Controlled type 2 diabetes m ellitus without complication, without long-term current use of insulin E11.9 ; Insect bite (nonvenomous), right ankle, initial encounter S90.561A ; Local infection of the skin and subcutaneous tissue, unspecified L08.9 ; Acute swimmer''s ear of left side H60.332 and BMI 45.0-49.9, adult Z68.42 [place] [address] [address] Apr, Lumbago with sciatica, unspe cified side M54.40 [place] [address] [place] [id number] [address] [place] [address] Mar, [place] [address] [place] [id number] [address] [place] [address] Mar, Lumbago with sciatica, unspe cified side M54.40 [place] [address] [place] [id number] [address] [place] [address] Feb, Lumbago with sciatica, unspe cified side M54.40 [facility] [place] [address] [place] [id number] [address] [place] [address] Feb, BMI 45.0-49.9, adult Z68.42 and Obstructive sleep apnea syndrome G47.33 [place] [address] [place] [id number] [address] [place] [address] January, Lumbar neuritis M54.16 [place] [address] [place] [id number] [address] [place] [address] January, Lumbago with sciatica, unspe cified side M54.40 [place] [address] [place] [id number] [address] [place] [address] Dec, Controlled type 2 diabetes m ellitus without complication, without long-term current use of insulin E11.9 ; Erectile dysfunction due to diseases classified elsewhere N52.1 and Mood disorder F39 [place] [address] [place] [id number] [place] [address] Dec, Lumbago with sciatica, unspe cified side M54.40 [place] [address] [place] [id number] [address] [place] [address] Dec, Obstructive sleep apnea synd luis G47.33 [place] [address] [place] [id number] [address] [place] [address] Nov, Lumbago with sciatica, unspe cified side M54.40 ; Hypertension, benign I10 and Mood disorder F39 [place] [address] [place] [id number] [address] [place] [address] Nov, Other chronic pain G89.29 [place] [address] [place] [id number] [address] [place] [address] Nov, Lumbago with sciatica, unspe cified side M54.40 [facility] [address] [facility] [id number] [address] [place] [address] [id number] Nov, Dental examination Z01.20 [place] [address] [facility] [id number] [address] [place] [phone] Oct, [facility] [place] [address] [facility] [id number] [address] [place] [address] Oct, Lumbago with sciatica, unspe cified side M54.40 [facility] [place] [address] [id number] [address] [place] [address] Oct, Lumbago with sciatica, unspe cified side M54.40 [facility] [place] [address] [id number] [address] [place] [phone] Oct, [facility] [place] [address] [facility] [id number] [address] [place] [address] Oct, [facility] [address] [id number] [address] [place] [address] [id number] Oct, 2017 Dental examination Z01.20 [facility] [place] [address] [facility] [id number] [address] [place] [phone] 08 Oct, 2017 [facility] [place] [address] [facility] [id number] [address] [place] [address] Oct, Pain in right knee M25.561 [facility] [place] [address] [facility] [id number] [address] [place] [phone] Sep, [facility] [place] [address] [facility] [id number] [address] [place] [address] Sep, Other chronic pain G89.29 [facility] [place] [address] [facility] [id number] [address] [place] [address] Sep, Lumbago with sciatica, unspe cified side M54.40 [facility] [place] [address] [facility] [id number] [address] [place] [address] Sep, [facility] [address] [facility] [id number] [address] [place] [address] Sep, Viral URI J06.9 and BMI 45.0 -49.9, adult Z68.42 [facility] [address] [facility] [id number] [address] [place] [address] Aug, Foreign body hand S60.559A a nd BMI 45.0-49.9, adult Z68.42 [facility] [place] [address] [facility] [id number] [address] [place] [address] Aug, [facility] [place] [address] [facility] [id number] [address] [place] [address] Aug, Lumbago with sciatica, unspe cified side M54.40 [facility] [place] [address] [facility] [id number] [address] [place] [address] Aug, Vertigo R42 ; Dysfunction of both eustachian tubes H69.83 ; Low back pain M54.5 and Other chronic pain G89.29 [facility] [address] [facility] [id number] [address] [place] [id number] Aug, Dizziness R42 and Acute bila teral otitis media H66.93 [place] [address] [facility] [id number] [address] [place] [phone] Aug, Lumbago with sciatica, unspe cified side M54.40 [facility] [address] [facility] [id number] [place] [address] [id number] Jul, Dental examination Z01.20 [place] [address] [facility] [id number] [address] [place] [phone] Jul, [facility] [place] [address] [facility] [id number] [address] [place] [id number] Jul, [place] [address] [facility] [id number] [address] [place] [address] Jul, Dysfunction of both eustachi an tubes H69.83 [facility] [place] [address] [facility] [id number] [address] [place] [address] Jul, Controlled type 2 diabetes m ellitus without complication, without long-term current use of insulin E11.9 [facility] [place] [address] [facility] [id number] [address] [place] [address] Jul, Controlled type 2 diabetes m ellitus without complication, without long-term current use of insulin E11.9 [facility] [address] [id number] [address] [place] [phone] Jul, Dizziness R42 and BMI 40.0-4 4.9, adult Z68.41 [facility] [place] [address] [id number] [address] [place] [address] Jul, Controlled type 2 diabetes m ellitus without complication, without long-term current use of insulin E11.9 [facility] [place] [address] [id number] [address] [place] [id number] Jul, Lumbago with sciatica, unspe cified side M54.40 [facility] [address] [id number] [place] [id number] Jul, Dental examination Z01.20 [facility] [place] [address] [id number] [address] [place] [phone] Jun, [facility] [address] [id number] [place] [id number] Jun, Dental examination Z01.20 [facility], [place] [address] [id number] [address] [place] [id number] Jun, Controlled type 2 diabetes m ellitus without complication, without long-term current use of insulin E11.9 [facility], [place] [address] [id number] [address] [place] [phone] Jun, Lumbago with sciatica, unspe cified side M54.40 [facility] [address] [id number] [place] [id number] May, Dental examination Z01.20 [facility] [place] [address] [id number] [address] [place] [phone] May, Controlled type 2 diabetes m ellitus without complication, without long-term current use of insulin E11.9 [facility] [address] [id number] [place] [address] [id number] May, Dental examination Z01.20 [facility], [place] [address] [id number] [address] [place] [id number] May, Bronchitis J40 ; Dry mouth R 68.2 ; Non morbid obesity E66.9 and Controlled type 2 diabetes mellitus without complication, without long-term current use of insulin E11.9 [facility] [address] [facility] [id number] [address] [place] [id number] 16 May, 2017 Encounter for immunization Z 23 [facility] [place] [address] [facility] [id number] [address] [place] [phone] 07 May, 2017 Lumbago with sciatica, unspe cified side M54.40 [facility] [place] [address] [id number] [address] [place] [id number] 05 May, 2017 [facility] [address] [id number] Apr, Dental examination Z01.20 [place] [address] [address] [place] [id number] [address] [place] [id number] Apr, Lumbago with sciatica, unspe cified side M54.40 [facility] [address] [id number] [address] [place] [id number] Mar, Lumbago with sciatica, left side M54.42 [place] [address] [address] [facility] [id number] [address] [place] [address] Mar, [facility], [place] [address] [facility] [id number] [address] [place] [id number] Mar, Lumbar neuritis M54.16 [facility], [place] [address] [facility] [id number] [address] [place] [address] Mar, [facility] [address] [id number] [place] [address] [id number] Mar, Dental examination Z01.20 [facility], [place] [address] [facility] [id number] [address] [place] [phone] Mar, MELE (obstructive sleep apnea ) G47.33 ; Neuropathy involving both lower extremities G57.93 and Frequent headaches R51 [place] [address] [address] [place] [id number] [address] [place] [id number] Mar, Lumbago with sciatica, unspe cified side M54.40 [place] [address] [address] [facility] [id number] [address] [place] [id number] Feb, Lumbago with sciatica, unspe cified side M54.40 and Controlled type 2 diabetes mellitus without complication, without long-term current use of insulin E11.9 [place] [address] [address] [place] [id number] [place] [address] January, Hypertension, benign I10 and Bilateral low back pain with sciatica, sciatica laterality unspecified M54.40 [place] [address] [address] [place] [id number] [place] [phone] January, Hypertension, benign I10 ; L umbago with sciatica, unspecified side M54.40 ; Other chronic pain G89.29 and Controlled type 2 diabetes mellitus without complication, without long-term current use of insulin E11.9 [place] [address] [address] [place] [id number] [address] [place] [address] January, Lumbar neuritis M54.16 [place] [address] [address] [place] [id number] [address] [place] [address] January, [place] [address] [address] [place] [id number] [address] [place] [address] Dec, Lumbago with sciatica, right side M54.41 and Lumbar neuritis M54.16 [place] [address] [address] [place] [id number] [address] [place] [address] Dec, Lumbar neuritis M54.16 [place] [address] [address] [place] [id number] [address] [place] [address] Dec, Lumbar neuritis M54.16 [place] [address] [address] [place] [id number] [address] [place] [address] Nov, Lumbar neuritis M54.16 ; Lum bago with sciatica, right side M54.41 ; Controlled type 2 diabetes mellitus without complication, without long-term current use of insulin E11.9 and Rash and nonspecific skin eruption R21 [place] [address] [address] [facility] [id number] [address] [place] [address] Nov, Lumbar neuritis M54.16 and P alexi colorado L23.7 [place] [address] [address] [place] [id number] [address] [place] [id number] 16 Oct, 2016 Lumbar neuritis M54.16 ; Cou ghing R05 and Mood disorder F39 [place] [address] [address] [place] [id number] [address] [place] [phone] Sep, Lumbago with sciatica, right side M54.41 [place] [address] [address] [place] [id number] [place] [address] Sep, Adjustment disorder with dis turbance of emotion F43.29 and Pain management R52 [place] [id number] [place] [phone] Sep, [place] [address] [place] [id number] [address] [place] [phone] Sep, [place] [address] [address] Sep, Controlled type 2 diabetes evens reyna without complication, without long-term current use of insulin E11.9 and Lumbago with sciatica, unspecified side M54.40 [place] [address] [address] [place] [id number] [address] [place] [address] Aug, Controlled type 2 diabetes evens reyna without complication, without long-term current use of insulin E11.9 ; Pain in right knee M25.561 ; Pain in left knee M25.562 ; Other chronic pain G89.29 ; Lumbago with sciatica, right side M54.41 ; Neck pain M54.2 and Encounter for immunization Z23 [place] [address] [address] [place] [id number] [address] [place] [id number] Jul, [place] [address] [address] [place] [id number] [address] [place] [phone] Jul, Controlled type 2 diabetes evens reyna without complication, without long-term current use of insulin E11.9 [facility], [place] [address] [id number] [address] [place] [id number] Jul, [facility], [place] [address] [id number] [address] [place] [address] Jul, [facility], [place] [address] [id number] [address] [place] [address] Jul, Lumbago with sciatica, left side M54.42 ; Lumbago with sciatica, right side M54.41 and Other chronic pain G89.29 [facility], [place] [address] [id number] [address] [place] [address] Jul, [facility], [place] [address] [id number] [address] [place] [address] Jul, [facility], [place] [address] [id number] [address] [place] [phone] Jun, [facility], [place] [address] [id number] [address] [place] [address] Jun, Lumbago with sciatica, right side M54.41 and Other chronic pain G89.29 [facility], [place] [address] [id number] [address] [place] [phone] Jun, Cervicalgia M54.2 ; Lumbago with sciatica, unspecified side M54.40 and Other chronic pain G89.29 [facility], [place] [address] [id number] [address] [place] [address] 15 May, 2016 Pain in right knee M25.561 ; Pain in left knee M25.562 and Other chronic pain G89.29 [facility], [place] [address] [id number] [address] [place] [id number] 14 May, 2016 [facility], [place] [address] [facility] [id number] [address] [place] [address] Apr, Other chronic pain G89.29 an d Pain in right knee M25.561 [facility], [place] [address] [id number] [address] [place] [id number] Apr, Pain in right knee M25.561 [facility], [place] [address] [id number] [address] [place] [id number] Mar, [facility], [place] [address] [id number] [address] [place] [address] Mar, Mood disorder F39 and Contro lled type 2 diabetes mellitus without complication, without long-term current use of insulin E11.9 [facility], [place] [address] [id number] [address] [place] [id number] Mar, Pain in right knee M25.561 ; Pain in left knee M25.562 ; Other chronic pain G89.29 ; Obstructive sleep apnea syndrome G47.33 ; Mood disorder F39 and Controlled type 2 diabetes mellitus without complication, without long- term current use of insulin E11.9 [facility], [place] [address] [id number] [address] [place] [id number] Mar, [facility] [address] [id number] [address] [place] [address] [id number] Feb, Dental examination Z01.20 [facility], [place] [address] [id number] [address] [place] [phone] Feb, [facility], [place] [address] [id number] [address] [place] [id number] Feb, Osteoarthritis of right knee , unspecified osteoarthritis type M17.9 [facility], [place] [address] [id number] [address] [place] [address] January, [facility] [address] [id number] [address] [place] [address] [id number] January, Dental examination Z01.20 [facility], [place] [address] [id number] [address] [place] [phone] January, [facility] [address] [id number] [address] [place] [address] [id number] January, Dental examination Z01.20 an d Caries K02.9 [facility], [place] [address] [facility] [id number] [address] [place] [phone] Dec, Encounter for other preproce dural examination Z01.818 [facility], [place] [address] [id number] [address] [place] [id number] Dec, [facility], [place] [address] [id number] [address] [place] [id number] Dec, Knee pain M25.569 [facility], [place] [address] [id number] [address] [place] [id number] Dec, Pain in right knee M25.561 [facility], [place] [address] [id number] [address] [place] [phone] Dec, [facility], [place] [address] [id number] [address] [place] [id number] Dec, [facility], [place] [address] [id number] [address] [place] [phone] Dec, Encounter for immunization Z 23 [facility], [place] [address] [id number] [address] [place] [phone] Dec, [facility], [place] [address] [id number] [address] [place] [phone] Dec, [facility], [place] [address] [id number] [address] [place] [phone] Nov, [facility], [place] [address] [facility] [id number] [address] [place] [id number] Nov, Hypertension, benign I10 ; C ervicalgia M54.2 ; Pain in right knee M25.561 and Pain in left knee M25.562 [facility], [place] [address] [id number] [address] [place] [id number] Oct, [facility], [place] [address] [id number] [address] [place] [phone] Oct, [place] [address] [address] [facility] [id number] [address] [place] [id number] Oct, Osteoarthritis of both knees M17.0 [place] [address] [address] [facility] [id number] [address] [place] [id number] Oct, [place] [address] [place] [id number] [address] [place] [phone] Oct, Low back pain M54.5 [place] [address] [facility] [id number] [address] [place] [id number] Oct, Low back pain M54.5 ; Sciati ca, unspecified side M54.30 ; Pain in right knee M25.561 ; Pain in left knee M25.562 ; Pain in right shoulder M25.511 and Pain in left shoulder M25.512 [place] [address] [place] [id number] [address] [place] [address] Oct, [place] [address] [place] [id number] [address] [place] [address] Sep, Pain in right hip M25.551 [place] [address] [place] [id number] [address] [place] [phone] Sep, Acute upper respiratory infe ction, unspecified J06.9 [place] [address] [address] [place] [id number] [address] [place] [phone] Aug, Acute upper respiratory infe ction, unspecified J06.9 and Other viral agents as the cause of diseases classified elsewhere B97.89 [place] [address] [place] [id number] [address] [place] [id number] Jul, Arthritis M19.90 [place] [address] [place] [id number] [address] [place] [phone] Jun, Arthritis M19.90 ; Pain in r ight hip M25.551 ; Pain in left hip M25.552 ; Bilateral low back pain with sciatica, sciatica laterality unspecified M54.40 ; Neck pain M54.2 ; Upper back pain M54.9 and Knee pain, unspecified laterality M25.569 [facility], [place] [address] [id number] [address] [place] [phone] May, Osteoarthritis of both knees 715.96 [facility], [place] [address] [id number] [address] [place] [address] May, Rash 782.1 [facility], [place] [address] [id number] [address] [place] [id number] Apr, Lumbar strain 847.2 [facility], [place] [address] [id number] [address] [place] [id number] Apr, Rash 782.1 [facility], [place] [address] [facility] [id number] [address] [place] [address] Mar, Rash 782.1 [facility], [place] [address] [id number] [address] [place] [address] Feb, Rash 782.1 ; Hemorrhoids 455 .6 and Constipation 564.00 [facility], [place] [address] [id number] [address] [place] [phone] Feb, Osteoarthritis of both knees 715.96 [facility], [place] [address] [id number] [address] [place] [phone] January, [facility], [place] [address] [id number] [address] [place] [phone] Dec, [facility], [place] [address] [id number] [address] [place] [phone] Dec, [facility], [place] [address] [id number] [address] [place] [phone] Dec, [facility], [place] [address] [id number] [address] [place] [id number] Nov, [facility], [place] [address] [id number] [address] [place] [phone] Nov, [facility] [address] [id number] [address] [place] [address], [place] [address] Nov, [facility] [address] [id number] [address] [place] [address], [place] [address] Nov, [facility] [address] [id number] [address] [place] [address], [place] [address] Nov, [facility] [address] [id number] [address] [place] [address], [place] [address] Nov, [facility] [address] [id number] [address] [place] [address], [place] [address] Oct, 2014 [facility] [address] [id number] [address] [place] [address], [place] [address] Oct, 2014 [facility] [address] [id number] [address] [place] [address], [place] [address] Oct, 2014 [facility] [address] [id number] [address] [place] [address], [place] [address] Oct, 2014 [facility] [address] [id number] [address] [place] [address], [place] [address] Oct, 2014 [facility] [address] [id number] [address] [place] [address], [place] [address] Oct, 2014 [facility] [address] [id number] [address] [place] [address], [place] [address] Oct, 2014 [facility] [address] [id number] [address] [place] [address], [place] [address] Oct, 2014 [facility] [address] [id number] [address] [place] [address], [place] [address] Oct, 2014 [facility] [address] [id number] [address] [place] [phone] Oct, 2014 [facility] [address] [id number] [address] [place] [address], [place] [address] 05 Oct, 2014 [facility] [address] [id number] [address] [place] [address], [place] [address] Sep, [facility] [address] [id number] [address] [place] [address], [place] [address] Sep, [facility] [address] [id number] [address] [place] [address], [place] [address] Sep, [facility] [address] [id number] [address] [place] [address], [place] [address] Sep, [facility] [address] [id number] [address] [place] [address], [place] [address] Sep, [facility] [address] [id number] [address] [place] [address], [place] [address] Sep, [facility] [address] [id number] [address] [place] [address], [place] [address] Aug, [facility] [address] [id number] [address] [place] [address], [place] [address] Aug, [facility] [address] [id number] [address] [place] [address], [place] [address] Aug, [facility] [address] [id number] [address] [place] [address], [place] [address] Aug, [facility] [address] [id number] [address] [place] [address], [place] [address] Aug, [facility] [address] [id number] [address] [place] [address], [place] [address] Aug, [facility] [address] [id number] [address] [place] [address], [place] [address] Aug, [facility] [address] [id number] [address] [place] [address], [place] [address] Aug, [facility] [address] [id number] [address] [place] [address], [place] [address] Aug, [facility] [address] [id number] [address] [place] [phone] Aug, [facility] [address] [id number] [address] [place] [address], [place] [address] Jul, [facility] [address] [id number] [address] [place] [id number] Jul, [facility] [address] [id number] [address] [place] [address], [place] [address] Jul, [facility] [address] [id number] [address] [place] [address], [place] [address] Jul, [facility] [address] [id number] [address] [place] [address], [place] [address] Jun, [facility] [address] [id number] [address] [place] [address], [place] [address] Jun, [facility] [address] [id number] [address] [place] [id number] Jun, [facility] [address] [id number] [address] [place] [address], [place] [address] Jun, [facility] [address] [id number] [address] [place] [address] Jun, [facility] [address] [id number] [address] [place] [id number] Jun, [facility] [address] [id number] [address] [place] [id number] Jun, [facility] [address] [id number] [address] [place] [address] Jun, [facility] [address] [id number] [address] [place] [address] May, [facility] [address] [id number] [address] [place] [id number] May, [facility] [address] [id number] [address] [place] [address] May, [facility] [address] [id number] [facility] [place] [address] 19 May, 2013 [facility] [address] [id number] [facility] [place] [address] 15 May, 2014 [facility] [address] [id number] [facility] [place] [place] [address] 15 May, 2014 [facility] [address] [id number] [address] [place] [address], [place] [address] 15 May, 2014 [facility] [address] [id number] [address] [place] [address], [place] [address] May, [facility] [address] [id number] [address] [place] [address], [place] [address] Apr, [facility] [address] [id number] [address] [place] [address], [place] [address] Apr, [facility] [address] [id number] [address] [place] [address], [place] [address] Apr, [facility] [address] [id number] [address] [place] [address], [place] [address] Apr, [facility] [address] [id number] [address] [place] [address], [place] [address] Apr, [facility] [address] [id number] [address] [place] [address], [place] [address] Apr, [facility] [address] [id number] [address] [place] [address], [place] [address] Apr, [facility] [address] [id number] [address] [place] [address], [place] [address] Apr, [facility] [address] [id number] [address] [place] [address], [place] [address] Apr, [facility] [address] [id number] [address] [place] [address], [place] [address] Apr, [facility] [address] [id number] [address] [place] [address], [place] [address] Apr, [facility] [address] [id number] [address] [place] [address], [place] [address] Apr, [facility] [address] [id number] [address] [place] [address], [place] [address] Mar, [facility] [address] [id number] [address] [place] [address], [place] [address] Mar, [facility] [address] [id number] [address] [place] [address], [place] [address] Mar, [facility] [address] [id number] [address] [place] [address], [place] [address] Mar, [facility] [address] [id number] [address] [place] [address], [place] [address] Mar, [facility] [address] [id number] [address] [place] [address], [place] [address] Mar, [facility] [address] [id number] [address] [place] [address], [place] [address] Feb, [facility] [address] [id number] [address] [place] [address], [place] [address] Feb, [facility] [address] [id number] [address] [place] [address], [place] [address] Feb, [facility] [address] [id number] [address] [place] [address], [place] [address] Feb, [facility] [address] [id number] [address] [place] [address], [place] [address] Feb, [facility] [address] [id number] [address] [place] [address], [place] [address] Feb, [facility] [address] [id number] [address] [place] [address], [place] [address] Feb, [facility] [address] [id number] [address] [place] [address], [place] [address] Feb, [facility] [address] [id number] [address] [place] [address], [place] [address] Feb, [facility] [address] [id number] [address] [place] [address], [place] [address] Feb, [facility] [address] [id number] [address] [place] [address], [place] [address] Feb, [facility] [address] [id number] [address] [place] [address], [place] [address] Feb, [facility] [address] [id number] [address] [place] [address], [place] [address] Feb, [facility] [address] [id number] [address] [place] [address], [place] [address] Feb, [facility] [address] [id number] [address] [place] [address], [place] [address] January, [facility] [address] [id number] [address] [place] [address], [place] [address] January, [facility] [address] [id number] [address] [place] [address], [place] [address] January, [facility] [address] [id number] [address] [place] [address], [place] [address] January, [facility] [address] [id number] [address] [place] [address], [place] [address] January, [facility] [address] [id number] [address] [place] [address], [place] [address] January, [facility] [address] [id number] [address] [place] [address], [place] [address] Dec, [facility] [address] [id number] [address] [place] [address], [place] [address] Dec, [facility] [address] [id number] [address] [place] [address], [place] [address] Dec, [facility] [address] [id number] [address] [place] [address], [place] [address] Dec, [facility] [address] [id number] [address] [place] [address], [place] [address] Dec, [facility] [address] [id number] [address] [place] [address], [place] [address] Dec, [facility] [address] [id number] [address] [place] [address], [place] [address] Dec, [facility] [address] [id number] [address] [place] [address], [place] [address] Dec, [facility] [address] [id number] [address] [place] [address], [place] [address] Nov, [facility] [address] [id number] [address] [place] [address], [place] [address] Nov, [facility] [address] [id number] [address] [place] [address], [place] [address] Nov, [facility] [address] [id number] [address] [place] [address], [place] [address] Nov, [facility] [address] [id number] [address] [place] [address], [place] [address] Nov, [facility] [address] [id number] [address] [place] [address], [place] [address] Nov, [facility] [address] [id number] [address] [place] [address], [place] [address] Nov, [facility] [address] [id number] [address] [place] [address], [place] [address] Nov, [facility] [address] [id number] [address] [place] [address], [place] [address] Oct, [facility] [address] [id number] [address] [place] [address], [place] [address] Oct, [facility] [address] [id number] [address] [place] [address], [place] [address] Oct, [facility] [address] [id number] [address] [place] [address], [place] [address] Oct, [facility] [address] [id number] [address] [place] [address], [place] [address] Oct, [facility] [address] [id number] [address] [place] [address], [place] [address] Oct, [facility] [address] [id number] [address] [place] [address], [place] [address] Oct, [facility] [address] [id number] [address] [place] [address], [place] [address] Oct, [facility] [address] [id number] [address] [place] [address], [place] [address] Oct, [facility] [address] [id number] [address] [place] [address], [place] [address] Oct, [facility] [address] [id number] [address] [place] [address], [place] [address] Sep, [facility] [address] [id number] [address] [place] [address], [place] [address] Sep, [facility] [address] [id number] [address] [place] [address], [place] [address] Sep, [facility] [address] [id number] [address] [place] [address], [place] [address] Sep, [facility] [address] [id number] [address] [place] [address], [place] [address] Sep, [facility] [address] [id number] [address] [place] [address], [place] [address] Sep, [facility] [address] [id number] [address] [place] [address], [place] [address] Aug, [facility] [address] [id number] [address] [place] [address], [place] [address] Aug, [facility] [address] [id number] [address] [place] [address], [place] [address] Aug, [facility] [address] [id number] [address] [place] [address], [place] [address] Aug, [facility] [address] [id number] [address] [place] [address], [place] [address] Aug, [facility] [address] [id number] [address] [place] [address], [place] [address] Aug, [facility] [address] [id number] [address] [place] [address], [place] [address] Aug, [facility] [address] [id number] [address] [place] [address], [place] [address] Aug, [facility] [address] [id number] [address] [place] [address], [place] [address] Jul, [facility] [address] [id number] [address] [place] [address], [place] [address] Jul, [facility] [address] [id number] [address] [place] [address] Jul, [facility] [address] [id number] [address] [place] [address], [place] [address] Jul, [facility] [address] [id number] [address] [place] [address] Jul, [facility] [address] [id number] [address] [place] [address] Jul, [facility] [address] [id number] [address] [place] [id number] Jun, [facility] [address] [id number] [address] [place] [id number] Jun, [facility] [address] [id number] [address] [place] [id number] Jun, [facility] [address] [id number] [address] [place] [id number] May, [facility] [address] [id number] [address] [place] [id number] May, [facility] [address] [id number] [address] [place] [address], [place] [address] May, [facility] [address] [id number] [address] [place] [address], [place] [address] Apr, [facility] [address] [id number] [address] [place] [address], [place] [address] Apr, [facility] [address] [id number] [address] [place] [address], [place] [address] Apr, [facility] [address] [id number] [address] [place] [address], [place] [address] Apr, [facility] [address] [id number] [address] [place] [address], [place] [address] Mar, [facility] [address] [id number] [address] [place] [address], [place] [address] Mar, [facility] [address] [id number] [address] [place] [address], [place] [address] Mar, [facility] [address] [id number] [address] [place] [address], [place] [address] Mar, [facility] [address] [id number] [address] [place] [address], [place] [address] Feb, [facility] [address] [id number] [address] [place] [address], [place] [address] Feb, [facility] [address] [id number] [address] [place] [address], [place] [address] Feb, [facility] [address] [id number] [address] [place] [address], [place] [address] Feb, [facility] [address] [id number] [address] [place] [address], [place] [address] January, [facility] [address] [id number] [address] [place] [address], [place] [address] January, [facility] [address] [id number] [address] [place] [address], [place] [address] January, [facility] [address] [id number] [address] [place] [address], [place] [address] Nov, [facility] [address] [id number] [address] [place] [address], [place] [address] Nov, [facility] [address] [id number] [address] [place] [address], [place] [address] Oct, [facility] [address] [id number] [address] [place] [address], [place] [address] Oct, [facility] [address] [id number] [address] [place] [address], [place] [address] Oct, [facility] [address] [id number] [address] [place] [address], [place] [address] Oct, [facility] [address] [id number] [address] [place] [address], [place] [address] Sep, [facility] [address] [id number] [address] [place] [address], [place] [address] Sep, [facility] [address] [id number] [address] [place] [address], [place] [address] Sep, [facility] [address] [id number] [address] [place] [address], [place] [address] Aug, [facility] [address] [id number] [address] [place] [address], [place] [address] Aug, [facility] [address] [id number] [address] [place] [address], [place] [address] Aug, [facility] [address] [id number] [address] [place] [address], [place] [address] Aug, [facility] [address] [id number] [address] [place] [address], [place] [address] Aug, [facility] [address] [id number] [address] [place] [address], [place] [address] Aug, [facility] [address] [id number] [address] [place] [address], [place] [address] Jul, [facility] [address] [id number] [address] [place] [address], [place] [address] Jul, [facility] [address] [id number] [address] [place] [address], [place] [address] Jun, [facility] [address] [id number] [address] [place] [address], [place] [address] Jun, [facility] [address] [id number] [address] [place] [address], [place] [address] Jun, [facility] [address] [id number] [address] [place] [address], [place] [address] Apr, [facility] [address] [id number] [address] [place] [address], [place] [address] Apr, [facility] [address] [id number] [address] [place] [address], [place] [address] Mar, [facility] [address] [id number] [address] [place] [address], [place] [address] Mar, [facility] [address] [id number] [address] [place] [address], [place] [address] Mar, [facility] [address] [id number] [address] [place] [address], [place] [address] Mar, [facility] [address] [id number] [address] [place] [address] Feb, [facility] [address] [id number] [address] [place] [address], [place] [address] Feb, [facility] [address] [id number] [address] [place] [address], [place] [address] Feb, [facility] [address] [id number] [address] [place] [address], [place] [address] January, [facility] [address] [id number] [address] [place] [address], [place] [address] January, [facility] [address] [id number] [address] [place] [address], [place] [address] January, [facility] [address] [id number] [address] [place] [address], [place] [address] January, [facility] [address] [id number] [address] [place] [address], [place] [address] Dec, [facility] [address] [id number] [address] [place] [address], [place] [address] Dec, [facility] [address] [id number] [address] [place] [address], [place] [address] Nov, [facility] [address] [id number] [address] [place] [address], [place] [address] Nov, [facility] [address] [id number] [address] [place] [address], [place] [address] 16 Oct, 2011 [facility] [address] [id number] [address] [place] [address], [place] [address] Oct, [facility] [address] [id number] [address] [place] [address], [place] [address] Sep, [facility] [address] [id number] [address] [place] [address], [place] [address] Sep, [facility] [address] [id number] [address] [place] [address], [place] [address] Sep, [facility] [address] [id number] [address] [place] [address], [place] [address] Sep, [facility] [address] [id number] [address] [place] [address], [place] [address] Aug, [facility] [address] [id number] [address] [place] [address], [place] [address] Aug, [facility] [address] [id number] [address] [place] [address], [place] [address] Aug, [facility] [place] [address] [id number] [address] [place] [id number] Jul, [facility] [place] [address] [id number] [address] [place] [address] Aug, [facility] [place] [address] [id number] [address] [place] [address] Aug, [facility] [place] [address] [id number] [address] [place] [address] Aug, [facility] [place] [address] [id number] [address] [place] [address] Aug, [facility] [place] [address] [id number] [address] [place] [address] Jul, [facility] [place] [address] [id number] [address] [place] [id number] Jul, [facility] [place] [address] [id number] [address] [place] [id number] Jul, [facility] [place] [address] [id number] [address] [place] [address] Jun, [facility] [place] [address] [id number] [address] [place] [id number] Jun, [facility] [place] [address] [id number] [address] [place] [id number] Jun, [facility] [place] [address] [id number] [address] [place] [id number] Apr, [facility] [place] [address] [id number] [address] [place] [id number] Mar, IMMUNIZATIONS No Known Immunizations SOCIAL HISTORY Never Assessed REASON FOR VISIT PLAN OF CARE VITAL SIGNS Height 66 in 2012-09-04 Weight 237 lbs 2012-09-04 Temperature 98 degrees Fahrenheit 2012-09-04 Heart Rate 92 bpm 2012-09-04 Respiratory Rate 22 2012-09-04 Blood pressure systolic 150 mmHg 2012-09-04 Blood pressure diastolic 96 mmHg 2012-09-04 MEDICATIONS No Known Medications RESULTS No Results PROCEDURES Procedure Date Ordered Result Body Site COMPLETE CBC W/AUTO DIFF WBC Sep 04, 2012 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
--- OUTSIDE RECORDS SUMMARY | 2020-03-18 15:08 | XMS REPORT ---
Author Author George WAYNE Organization [facility] Address [address] [place] [address] Care Team Providers Care Game Technician Name Role Phone REYNA WAYNE Unavailable PROBLEMS Type Condition ICD9-CM Code TXR70-VT Code Onset Dates Condition S tatus SNOMED Code Problem Hypertension, benign I10 Active 74746267 Problem Other chronic pain G89.29 Active 8 1432693 Problem Lumbago with sciatica, unspecified side M54.40 Active 019031733 Problem Controlled type 2 diabetes m ellitus without complication, without long- term current use of insulin E11.9 Active 193751733 Problem Lumbago with sciatica, right side M54.41 Active 450699594 Problem Adjustment disorder with disturbance of emotion F4 3.29 Active 44546090 Problem MELE (obstructive sleep apnea) G47.33 Active 47035483 Problem Non morbid obesity E66.9 Active 4 67476520 Problem Hammer toe of left foot M20.42 Active 183787810 Problem Mood disorder F39 Active 409542 05 Problem Deformity of left foot M21.962 Active 084346696 Problem Lumbago with sciatica, left side M54.42 Active 346493858 Problem Erectile dysfunction due to diseases classified elsewhere N52.1 Active 440847443 Problem Obstructive sleep apnea syndrome G47.33 Active 98201562 Problem Type 2 diabetes mellitus wit h diabetic neuropathy, without long-term current use of insulin E11.40 Active 08257 006 Problem Essential hypertension I10 Active 10929043 ALLERGIES No Information ENCOUNTERS Encounter Location Date Diagnosis [facility] [address] [facility] [id number] [address] [place] [address] 18 Nov, 2019 Viral URI J06.9 and Flu-like symptoms R68.89 [facility] [address] [facility] [id number] [place] [address] 09 Nov, 2019 Type 2 diabetes mellitus with diabetic n europathy, without long-term current use of insulin E11.40 ; Family history of prostate cancer Z80.42 and Prostate cancer screening Z12.5 [place] [address] [address] Nov, [place] [address] [address] Sep, [place] [address] [address] Aug, [place] [address] [address] Jul, Lumbago with sciatica, unspecified side M54.40 [place] [address] [address] Jun, Lumbago with sciatica, unspecified side M54.40 [place] [address] [address] Jun, URI, acute J06.9 [place] [address] [address] May, Lumbago with sciatica, unspecified side M54.40 [place] [address] [address] May, [place] [address] [address] May, Type 2 diabetes mellitus with diabetic n europathy, without long-term current use of insulin E11.40 and Hammer toe of left foot M20.42 [place] [address] [address] May, [place] [address] [address] May, [place] [address] [address] May, [place] [address] [address] Apr, Lumbago with sciatica, unspecified side M54.40 [place] [address] [address] Apr, [place] [address] [address] Apr, [facility] [address] [place] [address] Apr, Hammer toe of left foot M20. 42 ; Chest pain R07.9 ; Preoperative examination Z01.818 and Morbid obesity E66.01 [place] [address] [address] Apr, Morbid obesity E66.01 ; Bronchitis J40 a nd High risk medications (not anticoagulants) long-term use Z79.899 [place] [address] [address] Apr, Lumbago with sciatica, unspecified side M54.40 [place] [address] [address] Apr, [place] [address] [address] Mar, Lumbar neuritis M54.16 and Morbid obesit y E66.01 [place] [address] [address] Mar, [place] [address] [address] Mar, [place] [address] [address] Mar, Lumbago with sciatica, unspecified side M54.40 [place] [address] [address] Mar, Morbid obesity E66.01 ; Coughing R05 ; 2 + pitting edema R60.9 and Controlled type 2 diabetes mellitus without complication, without long-term current use of insulin E11.9 [place] [address] [address] Feb, [facility] [address] [address] Feb, Lumbago with sciatica, unspecified side M54.40 [facility] [address] [address] Feb, [facility] [address] [address] Feb, Controlled type 2 diabetes mellitus with out complication, without long-term current use of insulin E11.9 and Morbid obesity E66.01 [place] [address] [address] January, Deformity of left foot M21.962 [place] [address] [address] January, [place] [address] [address] January, Lumbago with sciatica, unspecified side M54.40 [place] [address] [address] January, [place] [address] [address] January, Lumbago with sciatica, unspecified side M54.40 [place] [address] [address] January, [facility] [address] [address] January, Acute right-sided thoracic back pain M54 .6 [place] [address] [address] January, Acute right-sided thoracic back pain M54 .6 [facility] [address] [address] January, Chest pain, unspecified type R07.9 ; Mor bid obesity E66.01 and Scabies B86 [place] [address] [address] Dec, Lumbago with sciatica, unspecified side M54.40 [place] [address] [address] Dec, Toenail fungus B35.1 [place] [address] [address] Dec, Toenail fungus B35.1 [place] [address] [address] Dec, Acute right-sided thoracic back pain M54 .6 [place] [address] [address] Dec, Lumbago with sciatica, unspecified side M54.40 [place] [address] [address] Nov, Hammer toe of left foot M20.42 ; Deformi ty of left foot M21.962 and Type 2 diabetes mellitus with diabetic neuropathy, without long-term current use of insulin E11.40 [facility] [address] [facility] [id number] [address] [place] [address] Nov, Acute right-sided thoracic b ack pain M54.6 ; Morbid obesity E66.01 and Rt flank pain R10.9 [place] [address] [address] Nov, Lumbago with sciatica, unspecified side M54.40 [place] [address] [address] Oct, Lumbago with sciatica, unspecified side M54.40 [place] [address] [address] Sep, Lumbago with sciatica, unspecified side M54.40 [place] [address] [address] Sep, [place] [address] [address] Sep, BMI 40.0-44.9, adult Z68.41 ; Lumbago wi th sciatica, left side M54.42 ; Lumbago with sciatica, right side M54.41 and Other chronic pain G89.29 [place] [address] [address] Aug, Lumbago with sciatica, unspecified side M54.40 [place] [address] [address] Aug, Type 2 diabetes mellitus with diabetic n europathy, without long-term current use of insulin E11.40 ; Hammer toe of left foot M20.42 ; Hypertension, benign I10 and Frequent headaches R51 [place] [address] [address] Jul, Lumbago with sciatica, unspecified side M54.40 [place] [address] [address] Jul, [place] [address] [address] Jul, Essential hypertension I10 and Controlle d type 2 diabetes mellitus without complication, without long-term current use of insulin E11.9 [place] [address] [address] Jul, Essential hypertension I10 ; Controlled type 2 diabetes mellitus without complication, without long-term current use of insulin E11.9 and BMI 40.0-44.9, adult Z68.41 [place] [address] [address] Jul, Dysfunction of left eustachian tube H69. 82 [place] [address] [address] Jul, Lumbago with sciatica, unspecified side M54.40 [facility] [address] [id number] Jun, Dental examination Z01.20 [facility] [address] [address] Jun, Lumbago with sciatica, unspecified side M54.40 and Encounter for immunization Z23 [facility] [address] [address] Jun, Dysfunction of left eustachian tube H69. 82 [facility] [address] [place] [id number] Jun, Dental examination Z01.20 [facility] [address] [address] Jun, Other chronic pain G89.29 [facility] [address] [id number] Jun, Dental examination Z01.20 [place] [address] [address] Jun, [facility] [address] [address] Jun, Bronchitis J40 ; Dysfunction of left eus tachian tube H69.82 and BMI 45.0-49.9, adult Z68.42 [place] [address] [address] Jun, Lumbago with sciatica, unspecified side M54.40 [facility] [address] [address] May, Type 2 diabetes mellitus with diabetic n europathy, without long-term current use of insulin E11.40 and Hypertension, benign I10 [place] [address] [address] May, Lumbago with sciatica, unspecified side M54.40 [facility] [address] [facility] [id number] [address] [place] [address] Apr, [facility] [address] [address] Apr, Controlled type 2 diabetes mellitus with out complication, without long-term current use of insulin E11.9 ; Insect bite (nonvenomous), right ankle, initial encounter S90.561A ; Local infection of the skin and subcutaneous tissue, unspecified L08.9 ; Acute swimmer''s ear of left side H60.332 and BMI 45.0-49.9, adult Z68.42 [place] [address] [address] Apr, Lumbago with sciatica, unspecified side M54.40 [place] [address] [address] Mar, [place] [address] [address] Mar, Lumbago with sciatica, unspecified side M54.40 [place] [address] [address] Feb, Lumbago with sciatica, unspecified side M54.40 [place] [address] [address] Feb, BMI 45.0-49.9, adult Z68.42 and Obstruct jaida sleep apnea syndrome G47.33 [place] [address] [address] January, Lumbar neuritis M54.16 [place] [address] [address] January, Lumbago with sciatica, unspecified side M54.40 [place] [address] [address] Dec, Controlled type 2 diabetes mellitus with out complication, without long-term current use of insulin E11.9 ; Erectile dysfunction due to diseases classified elsewhere N52.1 and Mood disorder F39 [place] [address] [address] Dec, Lumbago with sciatica, unspecified side M54.40 [facility] [address] [address] Dec, Obstructive sleep apnea syndrome G47.33 [facility] [address] [address] Nov, Lumbago with sciatica, unspecified side M54.40 ; Hypertension, benign I10 and Mood disorder F39 [facility] [address] [address] Nov, Other chronic pain G89.29 [place] [address] [place] [address] Nov, Lumbago with sciatica, unspecified side M54.40 [facility] [address] [id number] Nov, Dental examination Z01.20 [place] [address] [address] Oct, [facility] [address] [address] Oct, Lumbago with sciatica, unspecified side M54.40 [place] [address] [address] Oct, Lumbago with sciatica, unspecified side M54.40 [facility] [address] [address] Oct, [facility] [address] [address] Oct, [facility] [address] [id number] Oct, Dental examination Z01.20 [facility] [address] [address] Oct, [facility] [address] [address] Oct, Pain in right knee M25.561 [place] [address] [address] Sep, [place] [address] [address] Sep, Other chronic pain G89.29 [place] [address] [address] Sep, Lumbago with sciatica, unspecified side M54.40 [place] [address] [address] Sep, [facility] [place] [address] [address] Sep, Viral URI J06.9 and BMI 45.0 -49.9, adult Z68.42 [facility] [address] [address] Aug, Foreign body hand S60.559A a nd BMI 45.0-49.9, adult Z68.42 [place] [address] [address] Aug, [place] [address] [address] Aug, Lumbago with sciatica, unspecified side M54.40 [place] [address] [address] Aug, Vertigo R42 ; Dysfunction of both eustac hian tubes H69.83 ; Low back pain M54.5 and Other chronic pain G89.29 [facility] [address] [address] Aug, Dizziness R42 and Acute bila teral otitis media H66.93 [place] [address] [address] Aug, Lumbago with sciatica, unspecified side M54.40 [facility] [address] [place] [id number] [place] [id number] Jul, Dental examination Z01.20 [facility] [address] [address] Jul, [facility] [address] [address] Jul, [place] [address] [address] Jul, Dysfunction of both eustachian tubes H69 .83 [place] [address] [address] Jul, Controlled type 2 diabetes mellitus with out complication, without long-term current use of insulin E11.9 [place] [address] [address] Jul, Controlled type 2 diabetes mellitus with out complication, without long-term current use of insulin E11.9 [facility] [address] [facility] [id number] [place] [address] Jul, Dizziness R42 and BMI 40.0-4 4.9, adult Z68.41 [place] [address] [address] Jul, Controlled type 2 diabetes mellitus with out complication, without long-term current use of insulin E11.9 [place] [address] [address] Jul, Lumbago with sciatica, unspecified side M54.40 [facility] [address] [id number] Jul, Dental examination Z01.20 [facility] [address] [address] Jun, [facility] [address] [id number] Jun, Dental examination Z01.20 [place] [address] [address] Jun, Controlled type 2 diabetes mellitus with out complication, without long-term current use of insulin E11.9 [facility] [address] [address] Jun, Lumbago with sciatica, unspecified side M54.40 [facility] [address] [id number] May, Dental examination Z01.20 [facility] [address] [address] May, Controlled type 2 diabetes mellitus with out complication, without long-term current use of insulin E11.9 [facility] [address] [id number] May, Dental examination Z01.20 [facility] [address] [address] May, Bronchitis J40 ; Dry mouth R68.2 ; Non m orbid obesity E66.9 and Controlled type 2 diabetes mellitus without complication, without long-term current use of insulin E11.9 [facility] [address] [address] 16 May, 2017 Encounter for immunization Z 23 [facility] [address] [address] May, Lumbago with sciatica, unspecified side M54.40 [facility] [address] [address] May, [facility] [address] [id number] Apr, Dental examination Z01.20 [facility] [address] [address] Apr, Lumbago with sciatica, unspecified side M54.40 [facility] [address] [facility] [id number] [address] [place] [address] Mar, Lumbago with sciatica, left side M54.42 [facility] [address] [address] Mar, [place] [address] [address] Mar, Lumbar neuritis M54.16 [place] [address] [place] [id number] Mar, [facility] [address] [facility] [place] [id number] Mar, Dental examination Z01.20 [place] [address] [address] Mar, MELE (obstructive sleep apnea) G47.33 ; N europathy involving both lower extremities G57.93 and Frequent headaches R51 [place] [address] [address] Mar, Lumbago with sciatica, unspecified side M54.40 [place] [address] [address] Feb, Lumbago with sciatica, unspecified side M54.40 and Controlled type 2 diabetes mellitus without complication, without long-term current use of insulin E11.9 [place] [address] [address] January, Hypertension, benign I10 and Bilateral l ow back pain with sciatica, sciatica laterality unspecified M54.40 [place] [address] [address] January, Hypertension, benign I10 ; Lumbago with sciatica, unspecified side M54.40 ; Other chronic pain G89.29 and Controlled type 2 diabetes mellitus without complication, without long-term current use of insulin E11.9 [place] [address] [address] January, Lumbar neuritis M54.16 [place] [address] [address] January, [place] [address] [place] [id number] Dec, Lumbago with sciatica, right side M54.41 and Lumbar neuritis M54.16 [place] [address] [address] Dec, Lumbar neuritis M54.16 [place] [address] [address] Dec, Lumbar neuritis M54.16 [place] [address] [address] Nov, Lumbar neuritis M54.16 ; Lumbago with sc iatica, right side M54.41 ; Controlled type 2 diabetes mellitus without complication, without long-term current use of insulin E11.9 and Rash and nonspecific skin eruption R21 [place] [address] [address] Nov, Lumbar neuritis M54.16 and Poison miroslava L2 3.7 [place] [address] [address] Oct, Lumbar neuritis M54.16 ; Coughing R05 an d Mood disorder F39 [place] [address] [address] Sep, Lumbago with sciatica, right side M54.41 [place] [address] [address] Sep, Adjustment disorder with disturbance of emotion F43.29 and Pain management R52 [place] [address] [address] Sep, [place] [address] [address] Sep, [place] [address] [address] Sep, Controlled type 2 diabetes mellitus with out complication, without long-term current use of insulin E11.9 and Lumbago with sciatica, unspecified side M54.40 [place] [address] [address] Aug, Controlled type 2 diabetes mellitus with out complication, without long-term current use of insulin E11.9 ; Pain in right knee M25.561 ; Pain in left knee M25.562 ; Other chronic pain G89.29 ; Lumbago with sciatica, right side M54.41 ; Neck pain M54.2 and Encounter for immunization Z23 [place] [address] [address] Jul, [place] [address] [address] Jul, Controlled type 2 diabetes mellitus with out complication, without long-term current use of insulin E11.9 [place] [address] [address] 17 Jul, 2016 [place] [address] [address] Jul, [place] [address] [address] Jul, Lumbago with sciatica, left side M54.42 ; Lumbago with sciatica, right side M54.41 and Other chronic pain G89.29 [place] [address] [address] Jul, [place] [address] [address] Jul, [place] [address] [address] Jun, [place] [address] [address] Jun, Lumbago with sciatica, right side M54.41 and Other chronic pain G89.29 [place] [address] [address] Jun, Cervicalgia M54.2 ; Lumbago with sciatic a, unspecified side M54.40 and Other chronic pain G89.29 [facility] [address] [place] [id number] [place] [address] 15 May, 2016 Pain in right knee M25.561 ; Pain in lef t knee M25.562 and Other chronic pain G89.29 [facility] [address] [place] [id number] [place] [address] 14 May, 2016 [facility] [address] [address] Apr, Other chronic pain G89.29 and Pain in ri ght knee M25.561 [facility] [address] [address] Apr, Pain in right knee M25.561 [facility] [address] [place] [id number] [place] [address] Mar, [facility] [address] [address] Mar, Mood disorder F39 and Controlled type 2 diabetes mellitus without complication, without long-term current use of insulin E11.9 [facility] [address] [place] [address] [place] [address] Mar, Pain in right knee M25.561 ; Pain in lef t knee M25.562 ; Other chronic pain G89.29 ; Obstructive sleep apnea syndrome G47.33 ; Mood disorder F39 and Controlled type 2 diabetes mellitus without complication, without long-term current use of insulin E11.9 [facility] [address] [place] [id number] [place] [address] Mar, [facility] [address] [facility] [place] [id number] Feb, Dental examination Z01.20 [facility] [address] [place] [id number] [place] [address] Feb, [facility] [address] [place] [id number] [place] [address] Feb, Osteoarthritis of right knee, unspecifie d osteoarthritis type M17.9 [facility] [address] [address] January, [facility] [address] [id number] January, Dental examination Z01.20 [facility] [address] [address] January, [facility] [address] [id number] January, Dental examination Z01.20 and Caries K02 .9 [facility] [address] [address] Dec, Encounter for other preprocedural examin ation Z01.818 [place] [address] [address] Dec, [facility] [address] [address] Dec, Knee pain M25.569 [facility] [address] [address] 15 Dec, 2015 Pain in right knee M25.561 [place] [address] [address] Dec, [facility] [address] [address] Dec, [facility] [address] [address] Dec, Encounter for immunization Z23 [facility] [address] [address] Dec, [facility] [address] [address] Dec, [facility] [address] [address] Nov, [facility] [address] [address] Nov, Hypertension, benign I10 ; Cervicalgia M 54.2 ; Pain in right knee M25.561 and Pain in left knee M25.562 [place] [address] [address] Oct, [place] [address] [address] Oct, [place] [address] [address] Oct, Osteoarthritis of both knees M17.0 [place] [address] [address] Oct, [place] [address] [address] Oct, Low back pain M54.5 [place] [address] [address] Oct, Low back pain M54.5 ; Sciatica, unspecif ied side M54.30 ; Pain in right knee M25.561 ; Pain in left knee M25.562 ; Pain in right shoulder M25.511 and Pain in left shoulder M25.512 [place] [address] [address] Oct, [place] [address] [address] Sep, Pain in right hip M25.551 [place] [address] [address] Sep, Acute upper respiratory infection, unspe cified J06.9 [place] [address] [address] Aug, Acute upper respiratory infection, unspe cified J06.9 and Other viral agents as the cause of diseases classified elsewhere B97.89 [place] [address] [address] Jul, Arthritis M19.90 [place] [address] [address] Jun, Arthritis M19.90 ; Pain in right hip M25 .551 ; Pain in left hip M25.552 ; Bilateral low back pain with sciatica, sciatica laterality unspecified M54.40 ; Neck pain M54.2 ; Upper back pain M54.9 and Knee pain, unspecified laterality M25.569 [place] [address] [address] May, Osteoarthritis of both knees 715.96 [facility] [address] [address] May, Rash 782.1 [place] [address] [address] Apr, Lumbar strain 847.2 [place] [address] [address] Apr, Rash 782.1 [place] [address] [address] Mar, Rash 782.1 [facility] [address] [address] Feb, Rash 782.1 ; Hemorrhoids 455.6 and Const ipation 564.00 [place] [address] [address] Feb, Osteoarthritis of both knees 715.96 [place] [address] [address] January, [facility] [address] [address] Dec, [facility] [address] [address] 14 Dec, 2014 [facility] [address] [address] Dec, [facility] [address] [address] Nov, [facility] [address] [id number] [place] [address] Nov, 2014 [facility] [address] [id number] [place] [address] Nov, 2014 [facility] [address] [id number] [place] [address] Nov, 2014 [facility] [address] [id number] [place] [address] Nov, [facility] [address] [id number] [place] [address] Nov, [facility] [address] [id number] [place] [address] Oct, 2014 [facility] [address] [id number] [place] [address] Oct, 2014 [facility] [address] [id number] [place] [address] Oct, 2014 [facility] [address] [id number] [place] [address] Oct, 2014 [facility] [address] [id number] [place] [address] Oct, 2014 [facility] [address] [id number] [place] [address] Oct, 2014 [facility] [address] [id number] [place] [address] Oct, 2014 [facility] [address] [id number] [place] [address] Oct, 2014 [facility] [address] [id number] [place] [address] Oct, 2014 [facility] [address] [id number] [place] [address] Oct, 2014 [facility] [address] [id number] [place] [address] Oct, 2014 [facility] [address] [id number] [place] [address] 14 Sep, 2014 [facility] [address] [id number] [place] [address] 14 Sep, 2014 [facility] [address] [id number] [place] [address] Sep, [facility] [address] [id number] [place] [address] Sep, [facility] [address] [id number] [place] [address] Sep, [facility] [address] [id number] [place] [address] Sep, [facility] [address] [id number] [place] [address] Aug, [facility] [address] [id number] [place] [address] 15 Aug, 2014 [facility] [address] [id number] [place] [address] Aug, [facility] [address] [id number] [place] [address] Aug, [facility] [address] [id number] [place] [address] Aug, [facility] [address] [id number] [place] [address] Aug, [facility] [address] [id number] [place] [address] Aug, [facility] [address] [id number] [place] [address] 05 Aug, 2014 [facility] [address] [id number] [place] [address] Aug, [facility] [address] [id number] [place] [address] Aug, [facility] [address] [id number] [place] [address] Jul, [facility] [address] [id number] [place] [address] Jul, [facility] [address] [id number] [place] [address] Jul, [facility] [address] [id number] [place] [address] Jul, [facility] [address] [id number] [place] [address] Jun, [facility] [address] [id number] [place] [address] Jun, [facility] [address] [id number] [place] [address] Jun, [facility] [address] [id number] [place] [address] Jun, [facility] [address] [id number] [place] [address] Jun, [facility] [address] [id number] [place] [address] Jun, [facility] [address] [id number] [place] [address] Jun, [facility] [address] [id number] [place] [address] Jun, [facility] [address] [id number] [place] [address] May, [facility] [address] [id number] [place] [address] 24 May, 2013 [facility] [address] [id number] [place] [address] 19 May, 2013 [facility] [address] [id number] [place] [address] 19 May, 2013 [facility] [address] [id number] [place] [address] 15 Sep, 2013 [facility] [address] [id number] [place] [address] May, [facility] [address] [facility] [id number] [facility] [place] [address] May, [facility] [address] [facility] [id number] [facility] [address] May, [facility] [address] [id number] [facility] [place] [address] Apr, [facility] [address] [facility] [id number] [facility] [place] [address] Apr, [facility] [address] [facility] [id number] [facility] [place] [address] Apr, [facility] [address] [id number] [place] [address] Apr, [facility] [address] [id number] [place] [address] Apr, [facility] [address] [id number] [place] [address] Apr, [facility] [address] [facility] [id number] [place] [address] Apr, [facility] [address] [id number] [place] [address] Apr, [facility] [address] [id number] [place] [address] Apr, [facility] [address] [id number] [place] [address] Apr, [facility] [address] [facility] [id number] [place] [address] Apr, [facility] [address] [id number] [place] [address] Apr, [facility] [address] [facility] [id number] [place] [address] Mar, [facility] [address] [id number] [place] [address] Mar, [facility] [address] [facility] [id number] [place] [address] 05 Mar, 2013 [facility] [address] [facility] [id number] [place] [address] 05 Mar, 2014 [facility] [address] [facility] [id number] [place] [address] Mar, [facility] [address] [id number] [place] [address] 02 Mar, 2014 [facility] [address] [facility] [id number] [place] [address] Feb, [facility] [address] [facility] [id number] [place] [address] Feb, [facility] [address] [id number] [place] [address] Feb, [facility] [address] [id number] [place] [address] Feb, [facility] [address] [id number] [place] [address] Feb, [facility] [address] [facility] [id number] [place] [address] Feb, [facility] [address] [id number] [place] [address] Feb, [facility] [address] [id number] [place] [address] Feb, [facility] [address] [id number] [place] [address] Feb, [facility] [address] [facility] [id number] [place] [address] 05 Feb, 2014 [facility] [address] [id number] [place] [address] Feb, [facility] [address] [id number] [place] [address] 04 Feb, 2014 [facility] [address] [id number] [place] [address] Feb, [facility] [address] [id number] [place] [address] Feb, [facility] [address] [id number] [place] [address] January, [facility] [address] [id number] [place] [address] January, [facility] [address] [id number] [place] [address] January, [facility] [address] [id number] [place] [address] January, [facility] [address] [id number] [place] [address] January, [facility] [address] [id number] [place] [address] January, [facility] [address] [id number] [place] [address] Dec, [facility] [address] [id number] [place] [address] Dec, [facility] [address] [id number] [place] [address] Dec, [facility] [address] [id number] [place] [address] Dec, [facility] [address] [id number] [place] [address] Dec, [facility] [address] [id number] [place] [address] Dec, [facility] [address] [id number] [place] [address] Dec, [facility] [address] [id number] [place] [address] Dec, [facility] [address] [id number] [place] [address] Nov, [facility] [address] [id number] [place] [address] Nov, [facility] [address] [facility] [id number] [facility] [address] Nov, [facility] [address] [facility] [id number] [facility] [address] Nov, [facility] [address] [id number] [facility] [place] [address] Nov, [facility] [address] [id number] [facility] [place] [address] Nov, [facility] [address] [facility] [id number] [facility] [place] [address] Nov, [facility] [address] [id number] [place] [address] Nov, [facility] [address] [id number] [place] [address] Oct, [facility] [address] [id number] [place] [address] Oct, [facility] [address] [id number] [facility] [place] [address] Oct, [facility] [address] [id number] [place] [address] Oct, [facility] [address] [id number] [place] [address] Oct, [facility] [address] [id number] [place] [address] Oct, [facility] [address] [facility] [id number] [place] [address] Oct, [facility] [address] [id number] [place] [address] Oct, [facility] [address] [id number] [place] [address] Oct, [facility] [address] [id number] [place] [address] Oct, [facility] [address] [id number] [place] [address] Sep, [facility] [address] [id number] [place] [address] Sep, [facility] [address] [id number] [place] [address] Sep, [facility] [address] [id number] [place] [address] Sep, [facility] [address] [id number] [place] [address] Sep, [facility] [address] [id number] [place] [address] Sep, [facility] [address] [id number] [place] [address] Aug, [facility] [address] [id number] [place] [address] Aug, [facility] [address] [id number] [place] [address] Aug, [facility] [address] [id number] [place] [address] Aug, [facility] [address] [id number] [place] [address] Aug, [facility] [address] [id number] [place] [address] Aug, [facility] [address] [id number] [place] [address] Aug, [facility] [address] [id number] [place] [address] Aug, [facility] [address] [id number] [place] [address] Jul, [facility] [address] [id number] [place] [address] Jul, [facility] [address] [id number] [place] [address] Jul, [facility] [address] [facility] [id number] [place] [address] Jul, [facility] [address] [facility] [id number] [place] [address] Jul, [facility] [address] [id number] [place] [address] Jul, [facility] [address] [id number] [place] [address] Jun, [facility] [address] [facility] [id number] [facility] [address] Jun, [facility] [address] [id number] [place] [address] Jun, [facility] [address] [id number] [place] [address] May, [facility] [address] [id number] [place] [address] May, [facility] [address] [id number] [place] [address] May, [facility] [address] [id number] [place] [address] Apr, [facility] [address] [id number] [place] [address] Apr, [facility] [address] [id number] [place] [address] Apr, [facility] [address] [facility] [id number] [place] [address] Apr, [facility] [address] [id number] [place] [address] Mar, [facility] [address] [id number] [place] [address] Mar, [facility] [address] [id number] [place] [address] Mar, [facility] [address] [facility] [id number] [place] [address] Mar, [facility] [address] [id number] [place] [address] Feb, [facility] [address] [id number] [place] [address] Feb, [facility] [address] [id number] [place] [address] Feb, [facility] [address] [id number] [place] [address] Feb, [facility] [address] [id number] [place] [address] January, [facility] [address] [id number] [place] [address] January, [facility] [address] [id number] [place] [address] January, [facility] [address] [id number] [place] [address] Nov, [facility] [address] [id number] [place] [address] Nov, [facility] [address] [id number] [place] [address] Oct, [facility] [address] [id number] [place] [address] Oct, [facility] [address] [id number] [place] [address] Oct, [facility] [address] [id number] [place] [address] Oct, [facility] [address] [id number] [place] [address] Sep, [facility] [address] [id number] [place] [address] Sep, [facility] [address] [id number] [place] [address] Sep, [facility] [address] [id number] [place] [address] Aug, [facility] [address] [id number] [place] [address] Aug, [facility] [address] [id number] [place] [address] Aug, [facility] [address] [id number] [place] [address] Aug, [facility] [address] [id number] [place] [address] Aug, [facility] [address] [id number] [place] [address] Aug, [facility] [address] [id number] [place] [address] Jul, [facility] [address] [id number] [place] [address] Jul, [facility] [address] [id number] [place] [address] Jun, [facility] [address] [id number] [place] [address] Jun, [facility] [address] [id number] [place] [address] Jun, [facility] [address] [id number] [place] [address] Apr, [facility] [address] [id number] [place] [address] Apr, [facility] [address] [id number] [place] [address] Mar, [facility] [address] [id number] [place] [address] Mar, [facility] [address] [id number] [place] [address] Mar, [facility] [address] [id number] [place] [address] Mar, [facility] [address] [id number] [place] [address] Feb, [facility] [address] [id number] [place] [address] Feb, [facility] [address] [id number] [place] [address] Feb, [facility] [address] [facility] [id number] [place] [address] January, [facility] [address] [id number] [place] [address] January, [facility] [address] [facility] [id number] [place] [address] January, [facility] [address] [facility] [id number] [place] [address] January, [facility] [address] [facility] [id number] [place] [address] Dec, [facility] [address] [facility] [id number] [place] [address] Dec, [facility] [address] [facility] [id number] [place] [address] Nov, [facility] [address] [id number] [place] [address] Nov, [facility] [address] [id number] [place] [address] Oct, [facility] [address] [facility] [id number] [place] [address] Oct, [facility] [address] [id number] [place] [address] Sep, [facility] [address] [facility] [id number] [place] [address] Sep, [facility] [address] [id number] [place] [address] Sep, [facility] [address] [id number] [place] [address] Sep, [facility] [address] [facility] [id number] [place] [address] Aug, [facility] [address] [id number] [place] [address] 16 Aug, 2011 [facility] [address] [facility] [id number] [place] [address] Aug, [facility] [address] [facility] [id number] [place] [address] Jul, [facility] [address] [facility] [id number] [place] [address] Aug, [facility] [address] [facility] [id number] [place] [address] Aug, [facility] [address] [id number] [place] [address] Aug, [facility] [address] [id number] [place] [address] Aug, [facility] [address] [facility] [id number] [place] [address] Jul, [facility] [address] [id number] [place] [address] Jul, [facility] [address] [id number] [place] [address] Jul, [facility] [address] [id number] [place] [address] Jun, [facility] [address] [id number] [place] [address] Jun, [facility] [address] [facility] [id number] [place] [address] Jun, [facility] [address] [id number] [place] [address] Apr, [facility] [address] [facility] [id number] [place] [address] Mar, IMMUNIZATIONS No Known Immunizations SOCIAL HISTORY [...]
--- OUTSIDE RECORDS SUMMARY | 2020-03-18 15:08 | XMS REPORT ---
Author Author Araseli George Doctor Organization [facility] Address Unknown Phone Unavailable Care Team Providers Care Customer Advisor Name Role Phone Migration, Doctor Unavailable Unavailable PROBLEMS Type Condition ICD9-CM Code GCV73-DL Code Onset Dates Condition S tatus SNOMED Code Problem Hypertension, benign I10 Active 60933429 Problem Other chronic pain G89.29 Active 8 9339489 Problem Lumbago with sciatica, unspecified side M54.40 Active 982182079 Problem Controlled type 2 diabetes m ellitus without complication, without long- term current use of insulin E11.9 Active 190261177 Problem Lumbago with sciatica, right side M54.41 Active 587838212 Problem Adjustment disorder with disturbance of emotion F4 3.29 Active 53317273 Problem MELE (obstructive sleep apnea) G47.33 Active 69981737 Problem Non morbid obesity E66.9 Active 4 66750526 Problem Hammer toe of left foot M20.42 Active 310896057 Problem Mood disorder F39 Active 101075 05 Problem Deformity of left foot M21.962 Active 815321940 Problem Lumbago with sciatica, left side M54.42 Active 282470273 Problem Erectile dysfunction due to diseases classified elsewhere N52.1 Active 889224196 Problem Obstructive sleep apnea syndrome G47.33 Active 14682877 Problem Type 2 diabetes mellitus wit h diabetic neuropathy, without long-term current use of insulin E11.40 Active 20461 006 Problem Essential hypertension I10 Active 27274885 ALLERGIES No Information ENCOUNTERS Encounter Location Date Diagnosis [facility] [address] [facility] [id number] [address] [place] [address] 18 Nov, 2019 Viral URI J06.9 and Flu-like symptoms R68.89 [facility] [address] [facility] [id number] [place] [address] 09 Nov, 2019 Type 2 diabetes mellitus with diabetic n europathy, without long-term current use of insulin E11.40 ; Family history of prostate cancer Z80.42 and Prostate cancer screening Z12.5 [facility] [address] [address] Nov, [facility] [address] [address] Sep, [facility] [address] [address] Aug, [place] [address] [address] Jul, Lumbago with sciatica, unspecified side M54.40 [place] [address] [address] Jun, Lumbago with sciatica, unspecified side M54.40 [place] [address] [address] Jun, URI, acute J06.9 [place] [address] [address] May, Lumbago with sciatica, unspecified side M54.40 [place] [address] [address] May, [place] [address] [address] May, Type 2 diabetes mellitus with diabetic n europathy, without long-term current use of insulin E11.40 and Hammer toe of left foot M20.42 [place] [address] [address] May, [facility] [address] [address] May, [facility] [address] [address] May, [facility] [address] [address] Apr, Lumbago with sciatica, unspecified side M54.40 [place] [address] [address] Apr, [place] [address] [address] Apr, [address] [place] [address] Apr, Hammer toe of left foot M20. 42 ; Chest pain R07.9 ; Preoperative examination Z01.818 and Morbid obesity E66.01 [place] [address] [address] Apr, Morbid obesity E66.01 ; Bronchitis J40 a nd High risk medications (not anticoagulants) long-term use Z79.899 [place] [address] [address] Apr, Lumbago with sciatica, unspecified side M54.40 [place] [address] [address] Apr, [place] [address] [address] Mar, Lumbar neuritis M54.16 and Morbid obesit y E66.01 [place] [address] [address] Mar, [place] [address] [address] Mar, [place] [address] [address] Mar, Lumbago with sciatica, unspecified side M54.40 [place] [address] [address] Mar, Morbid obesity E66.01 ; Coughing R05 ; 2 + pitting edema R60.9 and Controlled type 2 diabetes mellitus without complication, without long-term current use of insulin E11.9 [place] [address] [address] Feb, [place] [address] [address] Feb, Lumbago with sciatica, unspecified side M54.40 [place] [address] [address] Feb, [place] [address] [address] Feb, Controlled type 2 diabetes mellitus with out complication, without long-term current use of insulin E11.9 and Morbid obesity E66.01 [place] [address] [address] January, Deformity of left foot M21.962 [place] [address] [address] January, [place] [address] [address] January, Lumbago with sciatica, unspecified side M54.40 [place] [address] [address] January, [place] [address] [address] January, Lumbago with sciatica, unspecified side M54.40 [place] [address] [address] January, [place] [address] [address] January, Acute right-sided thoracic back pain M54 .6 [place] [address] [address] January, Acute right-sided thoracic back pain M54 .6 [place] [address] [address] January, Chest pain, unspecified type R07.9 ; Mor bid obesity E66.01 and Scabies B86 [place] [address] [address] Dec, Lumbago with sciatica, unspecified side M54.40 [place] [address] [address] Dec, Toenail fungus B35.1 [facility] [address] [address] Dec, Toenail fungus B35.1 [place] [address] [address] Dec, Acute right-sided thoracic back pain M54 .6 [place] [address] [address] Dec, Lumbago with sciatica, unspecified side M54.40 [place] [address] [address] Nov, Hammer toe of left foot M20.42 ; Deformi ty of left foot M21.962 and Type 2 diabetes mellitus with diabetic neuropathy, without long-term current use of insulin E11.40 [facility] [address] [facility] [id number] [address] [place] [address] Nov, Acute right-sided thoracic b ack pain M54.6 ; Morbid obesity E66.01 and Rt flank pain R10.9 [place] [address] [address] Nov, Lumbago with sciatica, unspecified side M54.40 [place] [address] [address] Oct, Lumbago with sciatica, unspecified side M54.40 [place] [address] [address] Sep, Lumbago with sciatica, unspecified side M54.40 [place] [address] [address] Sep, [facility] [address] [address] Sep, BMI 40.0-44.9, adult Z68.41 ; Lumbago wi th sciatica, left side M54.42 ; Lumbago with sciatica, right side M54.41 and Other chronic pain G89.29 [place] [address] [address] Aug, Lumbago with sciatica, unspecified side M54.40 [place] [address] [address] Aug, Type 2 diabetes mellitus with diabetic n europathy, without long-term current use of insulin E11.40 ; Hammer toe of left foot M20.42 ; Hypertension, benign I10 and Frequent headaches R51 [place] [address] [address] Jul, Lumbago with sciatica, unspecified side M54.40 [place] [address] [address] Jul, [place] [address] [address] Jul, Essential hypertension I10 and Controlle d type 2 diabetes mellitus without complication, without long-term current use of insulin E11.9 [place] [address] [address] Jul, Essential hypertension I10 ; Controlled type 2 diabetes mellitus without complication, without long-term current use of insulin E11.9 and BMI 40.0-44.9, adult Z68.41 [place] [address] [address] Jul, Dysfunction of left eustachian tube H69. 82 [place] [address] [address] Jul, Lumbago with sciatica, unspecified side M54.40 [facility] [address] [facility] [place] [id number] Jun, Dental examination Z01.20 [place] [address] [place] [id number] [place] [address] Jun, Lumbago with sciatica, unspecified side M54.40 and Encounter for immunization Z23 [facility] [address] [address] Jun, Dysfunction of left eustachian tube H69. 82 [facility] [address] [place] [id number] Jun, Dental examination Z01.20 [place] [address] [address] Jun, Other chronic pain G89.29 [facility] [address] [facility] [place] [id number] Jun, Dental examination Z01.20 [place] [address] [address] Jun, [place] [address] [address] Jun, Bronchitis J40 ; Dysfunction of left eus tachian tube H69.82 and BMI 45.0-49.9, adult Z68.42 [place] [address] [address] Jun, Lumbago with sciatica, unspecified side M54.40 [facility] [address] [address] May, Type 2 diabetes mellitus with diabetic n europathy, without long-term current use of insulin E11.40 and Hypertension, benign I10 [facility] [address] [address] May, Lumbago with sciatica, unspecified side M54.40 [facility] [address] [facility] [id number] [address] [place] [address] Apr, [facility] [address] [address] Apr, Controlled type 2 diabetes mellitus with out complication, without long-term current use of insulin E11.9 ; Insect bite (nonvenomous), right ankle, initial encounter S90.561A ; Local infection of the skin and subcutaneous tissue, unspecified L08.9 ; Acute swimmer''s ear of left side H60.332 and BMI 45.0-49.9, adult Z68.42 [place] [address] [address] Apr, Lumbago with sciatica, unspecified side M54.40 [place] [address] [address] Mar, [place] [address] [address] Mar, Lumbago with sciatica, unspecified side M54.40 [place] [address] [address] Feb, Lumbago with sciatica, unspecified side M54.40 [place] [address] [address] Feb, BMI 45.0-49.9, adult Z68.42 and Obstruct jaida sleep apnea syndrome G47.33 [place] [address] [address] January, Lumbar neuritis M54.16 [place] [address] [address] January, Lumbago with sciatica, unspecified side M54.40 [place] [address] [address] Dec, Controlled type 2 diabetes mellitus with out complication, without long-term current use of insulin E11.9 ; Erectile dysfunction due to diseases classified elsewhere N52.1 and Mood disorder F39 [place] [address] [address] Dec, Lumbago with sciatica, unspecified side M54.40 [place] [address] [place] [id number] Dec, Obstructive sleep apnea syndrome G47.33 [facility] [address] [address] Nov, Lumbago with sciatica, unspecified side M54.40 ; Hypertension, benign I10 and Mood disorder F39 [facility] [address] [address] Nov, Other chronic pain G89.29 [facility] [address] [place] [id number] Nov, Lumbago with sciatica, unspecified side M54.40 [facility] [address] [id number] Nov, Dental examination Z01.20 [place] [address] [address] Oct, [place] [address] [place] [address] Oct, Lumbago with sciatica, unspecified side M54.40 [place] [address] [address] Oct, Lumbago with sciatica, unspecified side M54.40 [place] [address] [address] Oct, [place] [address] [address] Oct, [facility] [address] [id number] Oct, Dental examination Z01.20 [place] [address] [place] [id number] Oct, [place] [address] [place] [id number] Oct, Pain in right knee M25.561 [place] [address] [address] Sep, [place] [address] [address] Sep, Other chronic pain G89.29 [facility] [address] [address] Sep, Lumbago with sciatica, unspecified side M54.40 [place] [address] [address] Sep, [facility] [address] [address] Sep, Viral URI J06.9 and BMI 45.0 -49.9, adult Z68.42 [facility] [place] [address] [address] Aug, Foreign body hand S60.559A a nd BMI 45.0-49.9, adult Z68.42 [place] [address] [address] Aug, [place] [address] [address] Aug, Lumbago with sciatica, unspecified side M54.40 [place] [address] [address] Aug, Vertigo R42 ; Dysfunction of both eustac hian tubes H69.83 ; Low back pain M54.5 and Other chronic pain G89.29 [facility] [place] [address] [address] Aug, Dizziness R42 and Acute bila teral otitis media H66.93 [place] [address] [address] Aug, Lumbago with sciatica, unspecified side M54.40 [facility] [address] [facility] [place] [id number] Jul, Dental examination Z01.20 [facility] [address] [address] Jul, [facility] [address] [place] [address] Jul, [facility] [address] [address] Jul, Dysfunction of both eustachian tubes H69 .83 [place] [address] [address] Jul, Controlled type 2 diabetes mellitus with out complication, without long-term current use of insulin E11.9 [place] [address] [address] Jul, Controlled type 2 diabetes mellitus with out complication, without long-term current use of insulin E11.9 [facility] [address] [facility] [id number] [address] [place] [address] Jul, Dizziness R42 and BMI 40.0-4 4.9, adult Z68.41 [facility] [address] [address] Jul, Controlled type 2 diabetes mellitus with out complication, without long-term current use of insulin E11.9 [place] [address] [address] Jul, Lumbago with sciatica, unspecified side M54.40 [facility] [address] [id number] Jul, Dental examination Z01.20 [facility] [address] [address] Jun, [facility] [address] [id number] Jun, Dental examination Z01.20 [facility] [address] [address] Jun, Controlled type 2 diabetes mellitus with out complication, without long-term current use of insulin E11.9 [facility] [address] [address] 05 Jun, 2017 Lumbago with sciatica, unspecified side M54.40 [facility] [address] [id number] May, Dental examination Z01.20 [facility] [address] [address] May, Controlled type 2 diabetes mellitus with out complication, without long-term current use of insulin E11.9 [facility] [address] [id number] May, Dental examination Z01.20 [place] [address] [address] 18 May, 2017 Bronchitis J40 ; Dry mouth R68.2 ; Non m orbid obesity E66.9 and Controlled type 2 diabetes mellitus without complication, without long-term current use of insulin E11.9 [facility] [address] [place] [id number] [place] [address] 16 May, 2017 Encounter for immunization Z 23 [place] [address] [address] 07 May, 2017 Lumbago with sciatica, unspecified side M54.40 [place] [address] [address] May, [facility] [address] [id number] Apr, Dental examination Z01.20 [facility] [address] [address] Apr, Lumbago with sciatica, unspecified side M54.40 [facility] [address] [place] [id number] [place] [address] Mar, Lumbago with sciatica, left side M54.42 [facility] [address] [address] Mar, [place] [address] [address] Mar, Lumbar neuritis M54.16 [place] [address] [address] Mar, [facility] [address] [facility] [place] [id number] Mar, Dental examination Z01.20 [place] [address] [address] Mar, MELE (obstructive sleep apnea) G47.33 ; N europathy involving both lower extremities G57.93 and Frequent headaches R51 [place] [address] [address] Mar, Lumbago with sciatica, unspecified side M54.40 [place] [address] [address] Feb, Lumbago with sciatica, unspecified side M54.40 and Controlled type 2 diabetes mellitus without complication, without long-term current use of insulin E11.9 [place] [address] [address] January, Hypertension, benign I10 and Bilateral l ow back pain with sciatica, sciatica laterality unspecified M54.40 [place] [address] [address] January, Hypertension, benign I10 ; Lumbago with sciatica, unspecified side M54.40 ; Other chronic pain G89.29 and Controlled type 2 diabetes mellitus without complication, without long-term current use of insulin E11.9 [place] [address] [address] January, Lumbar neuritis M54.16 [place] [address] [place] [id number] January, [place] [address] [address] Dec, Lumbago with sciatica, right side M54.41 and Lumbar neuritis M54.16 [place] [address] [address] Dec, Lumbar neuritis M54.16 [place] [address] [place] [address] Dec, Lumbar neuritis M54.16 [place] [address] [address] Nov, Lumbar neuritis M54.16 ; Lumbago with sc iatica, right side M54.41 ; Controlled type 2 diabetes mellitus without complication, without long-term current use of insulin E11.9 and Rash and nonspecific skin eruption R21 [place] [address] [address] Nov, Lumbar neuritis M54.16 and Poison miroslava L2 3.[address] [address] Oct, Lumbar neuritis M54.16 ; Coughing R05 an d Mood disorder F39 [address] [address] Sep, Lumbago with sciatica, right side M54.41 [place] [address] [address] Sep, Adjustment disorder with disturbance of emotion F43.29 and Pain management R52 [place] [address] [address] Sep, [place] [address] [address] Sep, [place] [address] [place] [id number] Sep, Controlled type 2 diabetes mellitus with out complication, without long-term current use of insulin E11.9 and Lumbago with sciatica, unspecified side M54.40 [place] [address] [address] Aug, Controlled type 2 diabetes mellitus with out complication, without long-term current use of insulin E11.9 ; Pain in right knee M25.561 ; Pain in left knee M25.562 ; Other chronic pain G89.29 ; Lumbago with sciatica, right side M54.41 ; Neck pain M54.2 and Encounter for immunization Z23 [place] [address] [address] Jul, [place] [address] [address] Jul, Controlled type 2 diabetes mellitus with out complication, without long-term current use of insulin E11.9 [place] [address] [address] Jul, [place] [address] [address] Jul, [place] [address] [address] Jul, Lumbago with sciatica, left side M54.42 ; Lumbago with sciatica, right side M54.41 and Other chronic pain G89.29 [place] [address] [address] Jul, [place] [address] [address] Jul, [place] [address] [address] Jun, [place] [address] [address] Jun, Lumbago with sciatica, right side M54.41 and Other chronic pain G89.29 [place] [address] [address] Jun, Cervicalgia M54.2 ; Lumbago with sciatic a, unspecified side M54.40 and Other chronic pain G89.29 [place] [address] [address] 15 May, 2016 Pain in right knee M25.561 ; Pain in lef t knee M25.562 and Other chronic pain G89.29 [facility] [address] [place] [id number] [place] [address] 14 May, 2016 [facility] [address] [place] [id number] [place] [address] Apr, Other chronic pain G89.29 and Pain in ri ght knee M25.561 [facility] [address] [address] Apr, Pain in right knee M25.561 [facility] [address] [address] Mar, [place] [address] [address] Mar, Mood disorder F39 and Controlled type 2 diabetes mellitus without complication, without long-term current use of insulin E11.9 [place] [address] [place] [id number] [place] [address] Mar, Pain in right knee M25.561 ; Pain in lef t knee M25.562 ; Other chronic pain G89.29 ; Obstructive sleep apnea syndrome G47.33 ; Mood disorder F39 and Controlled type 2 diabetes mellitus without complication, without long-term current use of insulin E11.9 [facility] [address] [place] [id number] [place] [address] Mar, [facility] [address] [facility] [place] [id number] Feb, Dental examination Z01.20 [facility] [address] [place], [place] [id number] [place] [address] Feb, [address] [address] Feb, Osteoarthritis of right knee, unspecifie d osteoarthritis type M17.9 [facility] [address] [place] [id number] [place] [address] January, [facility] [address] [facility] [place] [id number] January, Dental examination Z01.20 [facility] [address] [address] January, [facility] [address] [facility] [place] [id number] January, Dental examination Z01.20 and Caries K02 .9 [facility] [address] [address] Dec, Encounter for other preprocedural examin ation Z01.818 [facility] [address] [address] Dec, [facility] [address] [address] Dec, Knee pain M25.569 [facility] [address] [address] Dec, Pain in right knee M25.561 [facility] [address] [address] Dec, [facility] [address] [address] Dec, [facility] [address] [address] Dec, Encounter for immunization Z23 [facility] [address] [address] Dec, [facility] [address] [address] Dec, [facility] [address] [address] Nov, [facility] [address] [address] Nov, Hypertension, benign I10 ; Cervicalgia M 54.2 ; Pain in right knee M25.561 and Pain in left knee M25.562 [place] [address] [address] Oct, [place] [address] [address] Oct, [place] [address] [address] Oct, Osteoarthritis of both knees M17.0 [place] [address] [address] Oct, [place] [address] [address] Oct, Low back pain M54.5 [place] [address] [address] Oct, Low back pain M54.5 ; Sciatica, unspecif ied side M54.30 ; Pain in right knee M25.561 ; Pain in left knee M25.562 ; Pain in right shoulder M25.511 and Pain in left shoulder M25.512 [place] [address] [address] Oct, [address] [address] Sep, Pain in right hip M25.[address] [address] Sep, Acute upper respiratory infection, unspe cified J06.9 [place] [address] [address] Aug, Acute upper respiratory infection, unspe cified J06.9 and Other viral agents as the cause of diseases classified elsewhere B97.89 [place] [address] [address] Jul, Arthritis M19.[address] [address] Jun, Arthritis M19.90 ; Pain in right hip M25 .551 ; Pain in left hip M25.552 ; Bilateral low back pain with sciatica, sciatica laterality unspecified M54.40 ; Neck pain M54.2 ; Upper back pain M54.9 and Knee pain, unspecified laterality [id number] [facility] [address] [address] 10 May, 2015 Osteoarthritis of both knees 715.96 [facility] [address] [address] May, Rash 782.1 [facility] [address] [address] Apr, Lumbar strain 847.2 [place] [address] [address] Apr, Rash 782.1 [place] [address] [address] Mar, Rash 782.1 [place] [address] [address] Feb, Rash 782.1 ; Hemorrhoids 455.6 and Const ipation 564.00 [place] [address] [address] Feb, Osteoarthritis of both knees 715.96 [place] [address] [address] January, [facility] [address] [address] Dec, [facility] [address] [address] Dec, [facility] [address] [address] Dec, [facility] [address] [address] Nov, [facility] [address] [address] Nov, [facility] [address] [facility] [id number] [facility] [place] [address] Nov, [facility] [address] [id number] [facility] [place] [address] Nov, [facility] [address] [id number] [place] [address] Nov, [facility] [address] [id number] [facility] [place] [address] Nov, [facility] [address] [id number] [facility] [place] [address] Oct, [facility] [address] [id number] [place] [address] Oct, 2014 [facility] [address] [id number] [place] [address] Oct, [facility] [address] [id number] [place] [address] Oct, 2014 [facility] [address] [id number] [place] [address] Oct, [facility] [address] [id number] [place] [address] Oct, [facility] [address] [id number] [place] [address] Oct, [facility] [address] [id number] [place] [address] Oct, 2014 [facility] [address] [id number] [place] [address] Oct, [facility] [address] [id number] [place] [address] Oct, [facility] [address] [id number] [place] [address] Oct, [facility] [address] [id number] [place] [address] Sep, [facility] [address] [id number] [place] [address] 14 Sep, 2014 [facility] [address] [id number] [place] [address] Sep, [facility] [address] [id number] [place] [address] Sep, [facility] [address] [id number] [place] [address] Sep, [facility] [address] [id number] [place] [address] Sep, [facility] [address] [id number] [place] [address] Aug, [facility] [address] [id number] [place] [address] Aug, [facility] [address] [id number] [place] [address] Aug, [facility] [address] [id number] [place] [address] Aug, [facility] [address] [id number] [place] [address] Aug, [facility] [address] [id number] [place] [address] Aug, [facility] [address] [id number] [place] [address] Aug, [facility] [address] [id number] [place] [address] 05 Aug, 2014 [facility] [address] [id number] [place] [address] Aug, [facility] [address] [id number] [place] [address] Aug, [facility] [address] [id number] [place] [address] Jul, [facility] [address] [id number] [place] [address] Jul, [facility] [address] [facility] [id number] [place] [address] Jul, [facility] [address] [id number] [place] [address] Jul, [facility] [address] [id number] [place] [address] Jun, [facility] [address] [id number] [place] [address] Jun, [facility] [address] [id number] [place] [address] Jun, [facility] [address] [id number] [place] [address] Jun, [facility] [address] [id number] [place] [address] Jun, [facility] [address] [id number] [place] [address] Jun, [facility] [address] [id number] [place] [address] Jun, [facility] [address] [id number] [place] [address] Jun, [facility] [address] [id number] [place] [address] 24 May, 2013 [facility] [address] [id number] [place] [address] 24 May, 2013 [facility] [address] [id number] [place] [address] 19 May, 2013 [facility] [address] [id number] [place] [address] 19 Sep, 2013 [facility] [address] [id number] [place] [address] 15 May, 2013 [facility] [address] [id number] [place] [address] 15 May, 2013 [facility] [address] [id number] [place] [address] May, [facility] [address] [facility] [id number] [place] [address] May, [facility] [address] [facility] [id number] [place] [address] Apr, [facility] [address] [id number] [place] [address] Apr, [facility] [address] [id number] [place] [address] Apr, [facility] [address] [facility] [id number] [place] [address] Apr, [facility] [address] [id number] [place] [address] Apr, [facility] [address] [id number] [place] [address] Apr, [facility] [address] [id number] [place] [address] Apr, [facility] [address] [id number] [place] [address] Apr, [facility] [address] [id number] [place] [address] Apr, [facility] [address] [id number] [place] [address] Apr, [facility] [address] [id number] [place] [address] Apr, [facility] [address] [id number] [place] [address] Apr, [facility] [address] [id number] [place] [address] Mar, [facility] [address] [id number] [place] [address] Mar, [facility] [address] [id number] [place] [address] Mar, [facility] [address] [facility] [id number] [place] [address] 05 Mar, 2013 [facility] [address] [facility] [id number] [place] [address] Mar, 2013 [facility] [address] [facility] [id number] [place] [address] 02 Mar, 2013 [facility] [address] [id number] [place] [address] Feb, [facility] [address] [facility] [id number] [place] [address] 18 Feb, 2014 [facility] [address] [id number] [place] [address] Feb, [facility] [address] [id number] [place] [address] Feb, [facility] [address] [id number] [place] [address] Feb, [facility] [address] [id number] [place] [address] Feb, [facility] [address] [id number] [place] [address] Feb, [facility] [address] [id number] [place] [address] Feb, [facility] [address] [id number] [place] [address] 05 Feb, 2014 [facility] [address] [id number] [place] [address] 05 Feb, 2014 [facility] [address] [id number] [place] [address] Feb, [facility] [address] [id number] [place] [address] 04 Feb, 2014 [facility] [address] [id number] [place] [address] 03 Feb, 2014 [facility] [address] [id number] [place] [address] Feb, [facility] [address] [facility] [id number] [place] [address] January, [facility] [address] [id number] [place] [address] January, [facility] [address] [id number] [place] [address] January, [facility] [address] [id number] [place] [address] January, [facility] [address] [id number] [place] [address] January, [facility] [address] [id number] [place] [address] January, [facility] [address] [id number] [place] [address] Dec, [facility] [address] [id number] [place] [address] Dec, [facility] [address] [id number] [place] [address] Dec, [facility] [address] [id number] [place] [address] Dec, [facility] [address] [id number] [place] [address] Dec, [facility] [address] [id number] [place] [address] Dec, [facility] [address] [id number] [place] [address] Dec, [facility] [address] [id number] [place] [address] Dec, [facility] [address] [id number] [place] [address] Nov, [facility] [address] [id number] [place] [address] Nov, [facility] [address] [id number] [facility] [place] [address] Nov, [facility] [address] [facility] [id number] [place] [address] Nov, [facility] [address] [id number] [place] [address] Nov, [facility] [address] [id number] [place] [address] Nov, [facility] [address] [id number] [place] [address] Nov, [facility] [address] [id number] [place] [address] Nov, [facility] [address] [id number] [place] [address] Oct, [facility] [address] [id number] [place] [address] Oct, [facility] [address] [id number] [place] [address] Oct, [facility] [address] [id number] [place] [address] Oct, [facility] [address] [id number] [place] [address] Oct, [facility] [address] [id number] [place] [address] Oct, [facility] [address] [id number] [place] [address] Oct, [facility] [address] [id number] [place] [address] Oct, [facility] [address] [id number] [place] [address] Oct, [facility] [address] [id number] [place] [address] Oct, [facility] [address] [id number] [place] [address] 14 Sep, 2013 [facility] [address] [id number] [place] [address] Sep, [facility] [address] [id number] [place] [address] 14 Sep, 2013 [facility] [address] [id number] [place] [address] Sep, [facility] [address] [id number] [place] [address] Sep, [facility] [address] [id number] [place] [address] Sep, [facility] [address] [id number] [place] [address] Aug, [facility] [address] [id number] [place] [address] Aug, [facility] [address] [id number] [place] [address] Aug, [facility] [address] [id number] [place] [address] Aug, [facility] [address] [id number] [place] [address] Aug, [facility] [address] [id number] [place] [address] Aug, [facility] [address] [id number] [place] [address] Aug, [facility] [address] [id number] [place] [address] Aug, [facility] [address] [id number] [place] [address] Jul, [facility] [address] [id number] [place] [address] Jul, [facility] [address] [id number] [place] [address] Jul, [facility] [address] [id number] [place] [address] Jul, [facility] [address] [facility] [id number] [place] [address] Jul, [facility] [address] [id number] [place] [address] Jul, [facility] [address] [id number] [place] [address] Jun, [facility] [address] [id number] [place] [address] Jun, [facility] [address] [id number] [place] [address] Jun, [facility] [address] [id number] [place] [address] May, [facility] [address] [id number] [place] [address] May, [facility] [address] [id number] [place] [address] May, [facility] [address] [id number] [place] [address] Apr, [facility] [address] [id number] [place] [address] Apr, [facility] [address] [id number] [place] [address] Apr, [facility] [address] [id number] [place] [address] Apr, [facility] [address] [id number] [place] [address] Mar, [facility] [address] [id number] [place] [address] Mar, [facility] [address] [id number] [place] [address] Mar, [facility] [address] [id number] [place] [address] Mar, [facility] [address] [id number] [place] [address] Feb, [facility] [address] [id number] [place] [address] Feb, [facility] [address] [id number] [place] [address] Feb, [facility] [address] [id number] [place] [address] Feb, [facility] [address] [id number] [place] [address] January, [facility] [address] [id number] [place] [address] January, [facility] [address] [id number] [place] [address] January, [facility] [address] [id number] [place] [address] Nov, [facility] [address] [id number] [place] [address] Nov, [facility] [address] [id number] [place] [address] Oct, [facility] [address] [id number] [place] [address] Oct, [facility] [address] [id number] [place] [address] Oct, [facility] [address] [id number] [place] [address] Oct, [facility] [address] [id number] [place] [address] Sep, [facility] [address] [id number] [place] [address] Sep, [facility] [address] [id number] [place] [address] Sep, [facility] [address] [id number] [place] [address] Aug, [facility] [address] [id number] [place] [address] Aug, [facility] [address] [id number] [place] [address] Aug, [facility] [address] [id number] [place] [address] Aug, [facility] [address] [id number] [place] [address] Aug, [facility] [address] [id number] [place] [address] Aug, [facility] [address] [id number] [place] [address] Jul, [facility] [address] [id number] [place] [address] Jul, [facility] [address] [id number] [place] [address] Jun, [facility] [address] [id number] [place] [address] Jun, [facility] [address] [id number] [place] [address] Jun, [facility] [address] [id number] [place] [address] Apr, [facility] [address] [id number] [place] [address] Apr, [facility] [address] [id number] [place] [address] Mar, [facility] [address] [id number] [place] [address] Mar, [facility] [address] [id number] [place] [address] Mar, [facility] [address] [id number] [place] [address] Mar, [facility] [address] [id number] [place] [address] Feb, [facility] [address] [id number] [place] [address] Feb, [facility] [address] [id number] [place] [address] Feb, [facility] [address] [id number] [place] [address] January, [facility] [address] [id number] [place] [address] January, [facility] [address] [id number] [place] [address] January, [facility] [address] [id number] [place] [address] January, [facility] [address] [id number] [place] [address] Dec, [facility] [address] [id number] [place] [address] Dec, [facility] [address] [id number] [place] [address] Nov, [facility] [address] [id number] [place] [address] Nov, [facility] [address] [id number] [place] [address] Oct, [facility] [address] [id number] [place] [address] Oct, [facility] [address] [id number] [place] [address] Sep, [facility] [address] [id number] [place] [address] Sep, [facility] [address] [id number] [place] [address] Sep, [facility] [address] [id number] [place] [address] Sep, [facility] [address] [id number] [place] [address] Aug, [facility] [address] [id number] [place] [address] Aug, [facility] [address] [id number] [place] [address] Aug, [facility] [address] [id number] [place] [address] Jul, [facility] [address] [id number] [place] [address] Aug, [facility] [address] [id number] [place] [address] Aug, [facility] [address] [id number] [place] [address] Aug, [facility] [address] [id number] [place] [address] Aug, [facility] [address] [id number] [place] [address] Jul, [facility] [id number] [place] [address] Jul, [facility] [address] [id number] [place] [address] Jul, [facility] [address] [id number] [place] [address] Jun, [facility] [address] [id number] [place] [address] Jun, [facility] [address] [id number] [place] [address] Jun, [facility] [address] [id number] [place] [address] Apr, [facility] [address] [id number] [place] [address] Mar, IMMUNIZATIONS No Known Immunizations SOCIAL HISTORY [...]
--- OUTSIDE RECORDS SUMMARY | 2020-03-18 15:08 | XMS REPORT ---
Author Author Araseli George Doctor Organization [facility] Address Unknown Phone Unavailable Care Team Providers Care Academic Affairs Dean Name Role Phone Migration, Doctor Unavailable Unavailable PROBLEMS Type Condition ICD9-CM Code [id number] Code Onset Dates Condition S tatus SNOMED Code Problem Hypertension, benign I10 Active 12876410 Problem Other chronic pain G89.29 Active 8 6580822 Problem Lumbago with sciatica, unspecified side M54.40 Active 623684482 Problem Controlled type 2 diabetes m ellitus without complication, without long- term current use of insulin E11.9 Active 407248073 Problem Lumbago with sciatica, right side M54.41 Active 617501402 Problem Adjustment disorder with disturbance of emotion F4 3.29 Active 60334751 Problem MELE (obstructive sleep apnea) G47.33 Active 67786647 Problem Non morbid obesity E66.9 Active 4 00707647 Problem Hammer toe of left foot M20.42 Active 596964199 Problem Mood disorder F39 Active 619605 05 Problem Deformity of left foot M21.962 Active 494722137 Problem Lumbago with sciatica, left side M54.42 Active 607065828 Problem Erectile dysfunction due to diseases classified elsewhere N52.1 Active 913267596 Problem Obstructive sleep apnea syndrome G47.33 Active 79074901 Problem Type 2 diabetes mellitus wit h diabetic neuropathy, without long-term current use of insulin E11.40 Active 78837 006 Problem Essential hypertension I10 Active 65531250 ALLERGIES No Information ENCOUNTERS Encounter Location Date Diagnosis [facility] [address] [facility] [id number] [address] [place] [address] 18 Nov, 2019 Flu-like symptoms R68.89 and Viral URI J06.9 [facility] [address] [facility] [id number] [place] [address] 09 Nov, 2019 Type 2 diabetes mellitus with diabetic n europathy, without long-term current use of insulin E11.40 ; Family history of prostate cancer Z80.42 and Prostate cancer screening Z12.5 [facility] [address] [address] Nov, [facility] [address] [address] Sep, [facility] [address] [address] Aug, [place] [address] [address] Jul, Lumbago with sciatica, unspecified side M54.40 [place] [address] [address] Jun, Lumbago with sciatica, unspecified side M54.40 [place] [address] [address] Jun, URI, acute J06.9 [place] [address] [address] May, Lumbago with sciatica, unspecified side M54.40 [place] [address] [address] May, [place] [address] [address] May, Type 2 diabetes mellitus with diabetic n europathy, without long-term current use of insulin E11.40 and Hammer toe of left foot M20.42 [place] [address] [address] May, [facility] [address] [address] May, [facility] [address] [address] May, [facility] [address] [address] Apr, Lumbago with sciatica, unspecified side M54.40 [place] [address] [address] Apr, [place] [address] [address] Apr, [address] [place] [address] Apr, Hammer toe of left foot M20. 42 ; Chest pain R07.9 ; Preoperative examination Z01.818 and Morbid obesity E66.01 [place] [address] [address] Apr, Morbid obesity E66.01 ; Bronchitis J40 a nd High risk medications (not anticoagulants) long-term use Z79.899 [place] [address] [address] Apr, Lumbago with sciatica, unspecified side M54.40 [place] [address] [address] Apr, [place] [address] [address] Mar, Lumbar neuritis M54.16 and Morbid obesit y E66.01 [place] [address] [address] Mar, [place] [address] [address] Mar, [place] [address] [address] Mar, Lumbago with sciatica, unspecified side M54.40 [place] [address] [address] Mar, Morbid obesity E66.01 ; Coughing R05 ; 2 + pitting edema R60.9 and Controlled type 2 diabetes mellitus without complication, without long-term current use of insulin E11.9 [place] [address] [address] Feb, [place] [address] [address] Feb, Lumbago with sciatica, unspecified side M54.40 [place] [address] [address] Feb, [place] [address] [address] Feb, Controlled type 2 diabetes mellitus with out complication, without long-term current use of insulin E11.9 and Morbid obesity E66.01 [place] [address] [address] January, Deformity of left foot M21.962 [place] [address] [address] January, [place] [address] [address] January, Lumbago with sciatica, unspecified side M54.40 [place] [address] [address] January, [place] [address] [address] January, Lumbago with sciatica, unspecified side M54.40 [place] [address] [address] January, [place] [address] [address] January, Acute right-sided thoracic back pain M54 .6 [place] [address] [address] January, Acute right-sided thoracic back pain M54 .6 [place] [address] [address] January, Chest pain, unspecified type R07.9 ; Mor bid obesity E66.01 and Scabies B86 [place] [address] [address] Dec, Lumbago with sciatica, unspecified side M54.40 [place] [address] [address] Dec, Toenail fungus B35.1 [facility] [address] [address] Dec, Toenail fungus B35.1 [place] [address] [address] Dec, Acute right-sided thoracic back pain M54 .6 [place] [address] [address] Dec, Lumbago with sciatica, unspecified side M54.40 [place] [address] [address] Nov, Hammer toe of left foot M20.42 ; Deformi ty of left foot M21.962 and Type 2 diabetes mellitus with diabetic neuropathy, without long-term current use of insulin E11.40 [facility] [address] [facility] [id number] [address] [place] [address] Nov, Acute right-sided thoracic b ack pain M54.6 ; Morbid obesity E66.01 and Rt flank pain R10.9 [place] [address] [address] Nov, Lumbago with sciatica, unspecified side M54.40 [place] [address] [address] Oct, Lumbago with sciatica, unspecified side M54.40 [place] [address] [address] Sep, Lumbago with sciatica, unspecified side M54.40 [place] [address] [address] Sep, [facility] [address] [address] Sep, BMI 40.0-44.9, adult Z68.41 ; Lumbago wi th sciatica, left side M54.42 ; Lumbago with sciatica, right side M54.41 and Other chronic pain G89.29 [place] [address] [address] Aug, Lumbago with sciatica, unspecified side M54.40 [place] [address] [address] Aug, Type 2 diabetes mellitus with diabetic n europathy, without long-term current use of insulin E11.40 ; Hammer toe of left foot M20.42 ; Hypertension, benign I10 and Frequent headaches R51 [place] [address] [address] Jul, Lumbago with sciatica, unspecified side M54.40 [place] [address] [address] Jul, [place] [address] [address] Jul, Essential hypertension I10 and Controlle d type 2 diabetes mellitus without complication, without long-term current use of insulin E11.9 [place] [address] [address] Jul, Essential hypertension I10 ; Controlled type 2 diabetes mellitus without complication, without long-term current use of insulin E11.9 and BMI 40.0-44.9, adult Z68.41 [place] [address] [address] Jul, Dysfunction of left eustachian tube H69. 82 [place] [address] [address] Jul, Lumbago with sciatica, unspecified side M54.40 [facility] [address] [id number] [place] [id number] Jun, Dental examination Z01.20 [place] [address] [place] [id number] [place] [address] Jun, Lumbago with sciatica, unspecified side M54.40 and Encounter for immunization Z23 [facility] [address] [address] Jun, Dysfunction of left eustachian tube H69. [address] [facility] [address] [id number] [id number] Jun, Dental examination Z01.20 [place] [address] [address] Jun, Other chronic pain G89.29 [facility] [address] [facility] [place] [id number] Jun, Dental examination Z01.20 [place] [address] [address] Jun, [place] [address] [address] Jun, Bronchitis J40 ; Dysfunction of left eus tachian tube H69.82 and BMI 45.0-49.9, adult Z68.42 [place] [address] [address] Jun, Lumbago with sciatica, unspecified side M54.40 [facility] [address] [address] May, Type 2 diabetes mellitus with diabetic n europathy, without long-term current use of insulin E11.40 and Hypertension, benign I10 [facility] [address] [address] May, Lumbago with sciatica, unspecified side M54.40 [facility] [address] [facility] [id number] [address] [place] [address] Apr, [facility] [address] [address] Apr, Controlled type 2 diabetes mellitus with out complication, without long-term current use of insulin E11.9 ; Insect bite (nonvenomous), right ankle, initial encounter S90.561A ; Local infection of the skin and subcutaneous tissue, unspecified L08.9 ; Acute swimmer''s ear of left side H60.332 and BMI 45.0-49.9, adult Z68.42 [place] [address] [address] Apr, Lumbago with sciatica, unspecified side M54.40 [place] [address] [address] Mar, [place] [address] [address] Mar, Lumbago with sciatica, unspecified side M54.40 [place] [address] [address] Feb, Lumbago with sciatica, unspecified side M54.40 [place] [address] [address] Feb, BMI 45.0-49.9, adult Z68.42 and Obstruct jaida sleep apnea syndrome G47.33 [place] [address] [address] January, Lumbar neuritis M54.16 [place] [address] [address] January, Lumbago with sciatica, unspecified side M54.40 [place] [address] [address] Dec, Controlled type 2 diabetes mellitus with out complication, without long-term current use of insulin E11.9 ; Erectile dysfunction due to diseases classified elsewhere N52.1 and Mood disorder F39 [place] [address] [address] Dec, Lumbago with sciatica, unspecified side M54.40 [place] [address] [place] [id number] Dec, Obstructive sleep apnea syndrome G47.33 [facility] [address] [address] Nov, Lumbago with sciatica, unspecified side M54.40 ; Hypertension, benign I10 and Mood disorder F39 [facility] [address] [address] Nov, Other chronic pain G89.29 [facility] [address] [place] [id number] Nov, Lumbago with sciatica, unspecified side M54.40 [facility] [address] [id number] Nov, Dental examination Z01.20 [place] [address] [address] Oct, [place] [address] [place] [address] Oct, Lumbago with sciatica, unspecified side M54.40 [place] [address] [address] Oct, Lumbago with sciatica, unspecified side M54.40 [place] [address] [address] Oct, [place] [address] [address] Oct, [facility] [address] [id number] Oct, Dental examination Z01.20 [place] [address] [place] [id number] Oct, [place] [address] [place] [id number] Oct, Pain in right knee M25.561 [place] [address] [address] Sep, [place] [address] [address] Sep, Other chronic pain G89.29 [facility] [address] [address] Sep, Lumbago with sciatica, unspecified side M54.40 [place] [address] [address] Sep, [facility] [address] [address] Sep, Viral URI J06.9 and BMI 45.0 -49.9, adult Z68.42 [facility] [place] [address] [address] Aug, Foreign body hand S60.559A a nd BMI 45.0-49.9, adult Z68.42 [place] [address] [address] Aug, [place] [address] [address] Aug, Lumbago with sciatica, unspecified side M54.40 [place] [address] [address] Aug, Vertigo R42 ; Dysfunction of both eustac hian tubes H69.83 ; Low back pain M54.5 and Other chronic pain G89.29 [facility] [place] [address] [address] Aug, Dizziness R42 and Acute bila teral otitis media H66.93 [place] [address] [address] Aug, Lumbago with sciatica, unspecified side M54.40 [facility] [address] [facility] [place] [id number] Jul, Dental examination Z01.20 [facility] [address] [address] Jul, [facility] [address] [place] [address] Jul, [facility] [address] [address] Jul, Dysfunction of both eustachian tubes H69 .83 [place] [address] [address] Jul, Controlled type 2 diabetes mellitus with out complication, without long-term current use of insulin E11.9 [place] [address] [address] Jul, Controlled type 2 diabetes mellitus with out complication, without long-term current use of insulin E11.9 [facility] [address] [facility] [id number] [address] [place] [address] Jul, Dizziness R42 and BMI 40.0-4 4.9, adult Z68.41 [facility] [address] [address] Jul, Controlled type 2 diabetes mellitus with out complication, without long-term current use of insulin E11.9 [place] [address] [address] Jul, Lumbago with sciatica, unspecified side M54.40 [facility] [address] [id number] Jul, Dental examination Z01.20 [facility] [address] [address] Jun, [facility] [address] [id number] Jun, Dental examination Z01.20 [facility] [address] [address] Jun, Controlled type 2 diabetes mellitus with out complication, without long-term current use of insulin E11.9 [facility] [address] [address] 05 Jun, 2017 Lumbago with sciatica, unspecified side M54.40 [facility] [address] [id number] May, Dental examination Z01.20 [facility] [address] [address] May, Controlled type 2 diabetes mellitus with out complication, without long-term current use of insulin E11.9 [facility] [address] [id number] May, Dental examination Z01.20 [place] [address] [address] 18 May, 2017 Bronchitis J40 ; Dry mouth R68.2 ; Non m orbid obesity E66.9 and Controlled type 2 diabetes mellitus without complication, without long-term current use of insulin E11.9 [facility] [address] [place] [id number] [place] [address] 16 May, 2017 Encounter for immunization Z 23 [place] [address] [address] 07 May, 2017 Lumbago with sciatica, unspecified side M54.40 [place] [address] [address] May, [facility] [address] [id number] Apr, Dental examination Z01.20 [facility] [address] [address] Apr, Lumbago with sciatica, unspecified side M54.40 [facility] [address] [place] [id number] [address] [place] [address] Mar, Lumbago with sciatica, left side M54.42 [facility] [address] [address] Mar, [place] [address] [address] Mar, Lumbar neuritis M54.16 [place] [address] [address] Mar, [facility] [address] [facility] [place] [id number] Mar, Dental examination Z01.20 [place] [address] [address] Mar, MELE (obstructive sleep apnea) G47.33 ; N europathy involving both lower extremities G57.93 and Frequent headaches R51 [place] [address] [address] Mar, Lumbago with sciatica, unspecified side M54.40 [place] [address] [address] Feb, Lumbago with sciatica, unspecified side M54.40 and Controlled type 2 diabetes mellitus without complication, without long-term current use of insulin E11.9 [place] [address] [address] January, Hypertension, benign I10 and Bilateral l ow back pain with sciatica, sciatica laterality unspecified M54.40 [place] [address] [address] January, Hypertension, benign I10 ; Lumbago with sciatica, unspecified side M54.40 ; Other chronic pain G89.29 and Controlled type 2 diabetes mellitus without complication, without long-term current use of insulin E11.9 [place] [address] [address] January, Lumbar neuritis M54.16 [place] [address] [place] [id number] January, [place] [address] [address] Dec, Lumbago with sciatica, right side M54.41 and Lumbar neuritis M54.16 [place] [address] [address] Dec, Lumbar neuritis M54.16 [place] [address] [place] [address] Dec, Lumbar neuritis M54.16 [place] [address] [address] Nov, Lumbar neuritis M54.16 ; Lumbago with sc iatica, right side M54.41 ; Controlled type 2 diabetes mellitus without complication, without long-term current use of insulin E11.9 and Rash and nonspecific skin eruption R21 [place] [address] [address] Nov, Lumbar neuritis M54.16 and Poison miroslava L2 3.[address] [address] Oct, Lumbar neuritis M54.16 ; Coughing R05 an d Mood disorder F39 [address] [address] Sep, Lumbago with sciatica, right side M54.41 [place] [address] [address] Sep, Adjustment disorder with disturbance of emotion F43.29 and Pain management R52 [place] [address] [address] Sep, [place] [address] [address] Sep, [place] [address] [place] [id number] Sep, Controlled type 2 diabetes mellitus with out complication, without long-term current use of insulin E11.9 and Lumbago with sciatica, unspecified side M54.40 [place] [address] [address] Aug, Controlled type 2 diabetes mellitus with out complication, without long-term current use of insulin E11.9 ; Pain in right knee M25.561 ; Pain in left knee M25.562 ; Other chronic pain G89.29 ; Lumbago with sciatica, right side M54.41 ; Neck pain M54.2 and Encounter for immunization Z23 [place] [address] [address] Jul, [place] [address] [address] Jul, Controlled type 2 diabetes mellitus with out complication, without long-term current use of insulin E11.9 [place] [address] [address] Jul, [place] [address] [address] Jul, [place] [address] [address] Jul, Lumbago with sciatica, left side M54.42 ; Lumbago with sciatica, right side M54.41 and Other chronic pain G89.29 [place] [address] [address] Jul, [place] [address] [address] Jul, [place] [address] [address] Jun, [place] [address] [address] Jun, Lumbago with sciatica, right side M54.41 and Other chronic pain G89.29 [place] [address] [address] Jun, Cervicalgia M54.2 ; Lumbago with sciatic a, unspecified side M54.40 and Other chronic pain G89.29 [place] [address] [address] 15 May, 2016 Pain in right knee M25.561 ; Pain in lef t knee M25.562 and Other chronic pain G89.29 [facility] [address] [place] [id number] [place] [address] 14 May, 2016 [facility] [address] [place] [id number] [place] [address] Apr, Other chronic pain G89.29 and Pain in ri ght knee M25.561 [facility] [address] [address] Apr, Pain in right knee M25.561 [facility] [address] [address] Mar, [place] [address] [address] Mar, Mood disorder F39 and Controlled type 2 diabetes mellitus without complication, without long-term current use of insulin E11.9 [place] [address] [place] [id number] [place] [address] Mar, Pain in right knee M25.561 ; Pain in lef t knee M25.562 ; Other chronic pain G89.29 ; Obstructive sleep apnea syndrome G47.33 ; Mood disorder F39 and Controlled type 2 diabetes mellitus without complication, without long-term current use of insulin E11.9 [facility] [address] [place] [id number] [place] [address] Mar, [facility] [address] [id number] [place] [id number] Feb, Dental examination Z01.20 [facility] [address] [place] [id number] [place] [address] Feb, [address] [address] Feb, Osteoarthritis of right knee, unspecifie d osteoarthritis type M17.9 [facility] [address] [place] [id number] [place] [address] January, [facility] [address] [id number] [place] [id number] January, Dental examination Z01.20 [facility] [address] [address] January, [facility] [address] [id number] [place] [id number] January, Dental examination Z01.20 and Caries K02 .9 [facility] [address] [address] Dec, Encounter for other preprocedural examin ation Z01.818 [facility] [address] [address] Dec, [facility] [address] [address] Dec, Knee pain M25.569 [facility] [address] [address] Dec, Pain in right knee M25.561 [facility] [address] [address] Dec, [facility] [address] [address] Dec, [facility] [address] [address] Dec, Encounter for immunization Z23 [facility] [address] [address] Dec, [facility] [address] [address] Dec, [facility] [address] [address] Nov, [facility] [address] [address] Nov, Hypertension, benign I10 ; Cervicalgia M 54.2 ; Pain in right knee M25.561 and Pain in left knee M25.562 [place] [address] [address] Oct, [place] [address] [address] Oct, [place] [address] [address] Oct, Osteoarthritis of both knees M17.0 [place] [address] [address] Oct, [place] [address] [address] Oct, Low back pain M54.5 [place] [address] [address] Oct, Low back pain M54.5 ; Sciatica, unspecif ied side M54.30 ; Pain in right knee M25.561 ; Pain in left knee M25.562 ; Pain in right shoulder M25.511 and Pain in left shoulder M25.512 [place] [address] [address] Oct, [address] [address] Sep, Pain in right hip M25.[address] [address] Sep, Acute upper respiratory infection, unspe cified J06.9 [place] [address] [address] Aug, Acute upper respiratory infection, unspe cified J06.9 and Other viral agents as the cause of diseases classified elsewhere B97.89 [place] [address] [address] Jul, Arthritis M19.[address] [address] Jun, Arthritis M19.90 ; Pain in right hip M25 .551 ; Pain in left hip M25.552 ; Bilateral low back pain with sciatica, sciatica laterality unspecified M54.40 ; Neck pain M54.2 ; Upper back pain M54.9 and Knee pain, unspecified laterality M25.569 [facility] [address] [address] 10 May, 2015 Osteoarthritis of both knees 715.96 [facility] [address] [address] May, Rash 782.1 [facility] [address] [address] Apr, Lumbar strain 847.2 [place] [address] [address] Apr, Rash 782.1 [place] [address] [address] Mar, Rash 782.1 [place] [address] [address] Feb, Rash 782.1 ; Hemorrhoids 455.6 and Const ipation 564.00 [place] [address] [address] Feb, Osteoarthritis of both knees 715.96 [place] [address] [address] January, [facility] [address] [address] Dec, [facility] [address] [address] Dec, [facility] [address] [address] Dec, [facility] [address] [address] Nov, [facility] [address] [address] Nov, [facility] [address] [facility] [id number] [facility] [place] [address] Nov, [facility] [address] [id number] [facility] [place] [address] Nov, [facility] [address] [id number] [place] [address] Nov, [facility] [address] [id number] [facility] [place] [address] Nov, [facility] [address] [id number] [facility] [place] [address] Oct, [facility] [address] [id number] [place] [address] Oct, 2014 [facility] [address] [id number] [place] [address] Oct, [facility] [address] [id number] [place] [address] Oct, 2014 [facility] [address] [id number] [place] [address] Oct, [facility] [address] [id number] [place] [address] Oct, [facility] [address] [id number] [place] [address] Oct, [facility] [address] [id number] [place] [address] Oct, 2014 [facility] [address] [id number] [place] [address] Oct, [facility] [address] [id number] [place] [address] Oct, [facility] [address] [id number] [place] [address] Oct, [facility] [address] [id number] [place] [address] Sep, [facility] [address] [id number] [place] [address] 14 Sep, 2014 [facility] [address] [id number] [place] [address] Sep, [facility] [address] [id number] [place] [address] Sep, [facility] [address] [id number] [place] [address] Sep, [facility] [address] [id number] [place] [address] Sep, [facility] [address] [id number] [place] [address] Aug, [facility] [address] [id number] [place] [address] Aug, [facility] [address] [id number] [place] [address] Aug, [facility] [address] [id number] [place] [address] Aug, [facility] [address] [id number] [place] [address] Aug, [facility] [address] [id number] [place] [address] Aug, [facility] [address] [id number] [place] [address] Aug, [facility] [address] [id number] [place] [address] 05 Aug, 2014 [facility] [address] [id number] [place] [address] Aug, [facility] [address] [id number] [place] [address] Aug, [facility] [address] [id number] [place] [address] Jul, [facility] [address] [id number] [place] [address] Jul, [facility] [address] [facility] [id number] [place] [address] Jul, [facility] [address] [id number] [place] [address] Jul, [facility] [address] [id number] [place] [address] Jun, [facility] [address] [id number] [place] [address] Jun, [facility] [address] [id number] [place] [address] Jun, [facility] [address] [id number] [place] [address] Jun, [facility] [address] [id number] [place] [address] Jun, [facility] [address] [id number] [place] [address] Jun, [facility] [address] [id number] [place] [address] Jun, [facility] [address] [id number] [place] [address] Jun, [facility] [address] [id number] [place] [address] 24 May, 2013 [facility] [address] [id number] [place] [address] 24 May, 2013 [facility] [address] [id number] [place] [address] 19 May, 2013 [facility] [address] [id number] [place] [address] 19 Sep, 2013 [facility] [address] [id number] [place] [address] 15 May, 2013 [facility] [address] [id number] [place] [address] 15 May, 2013 [facility] [address] [id number] [place] [address] May, [facility] [address] [facility] [id number] [place] [address] May, [facility] [address] [facility] [id number] [place] [address] Apr, [facility] [address] [id number] [place] [address] Apr, [facility] [address] [id number] [place] [address] Apr, [facility] [address] [facility] [id number] [place] [address] Apr, [facility] [address] [id number] [place] [address] Apr, [facility] [address] [id number] [place] [address] Apr, [facility] [address] [id number] [place] [address] Apr, [facility] [address] [id number] [place] [address] Apr, [facility] [address] [id number] [place] [address] Apr, [facility] [address] [id number] [place] [address] Apr, [facility] [address] [id number] [place] [address] Apr, [facility] [address] [id number] [place] [address] Apr, [facility] [address] [id number] [place] [address] Mar, [facility] [address] [id number] [place] [address] Mar, [facility] [address] [id number] [place] [address] Mar, [facility] [address] [facility] [id number] [place] [address] 05 Mar, 2013 [facility] [address] [facility] [id number] [place] [address] Mar, 2013 [facility] [address] [facility] [id number] [place] [address] 02 Mar, 2013 [facility] [address] [id number] [place] [address] Feb, [facility] [address] [facility] [id number] [place] [address] 18 Feb, 2014 [facility] [address] [id number] [place] [address] Feb, [facility] [address] [id number] [place] [address] Feb, [facility] [address] [id number] [place] [address] Feb, [facility] [address] [id number] [place] [address] Feb, [facility] [address] [id number] [place] [address] Feb, [facility] [address] [id number] [place] [address] Feb, [facility] [address] [id number] [place] [address] 05 Feb, 2014 [facility] [address] [id number] [place] [address] 05 Feb, 2014 [facility] [address] [id number] [place] [address] Feb, [facility] [address] [id number] [place] [address] 04 Feb, 2014 [facility] [address] [id number] [place] [address] 03 Feb, 2014 [facility] [address] [id number] [place] [address] Feb, [facility] [address] [facility] [id number] [place] [address] January, [facility] [address] [id number] [place] [address] January, [facility] [address] [id number] [place] [address] January, [facility] [address] [id number] [place] [address] January, [facility] [address] [id number] [place] [address] January, [facility] [address] [id number] [place] [address] January, [facility] [address] [id number] [place] [address] Dec, [facility] [address] [id number] [place] [address] Dec, [facility] [address] [id number] [place] [address] Dec, [facility] [address] [id number] [place] [address] Dec, [facility] [address] [id number] [place] [address] Dec, [facility] [address] [id number] [place] [address] Dec, [facility] [address] [id number] [place] [address] Dec, [facility] [address] [id number] [place] [address] Dec, [facility] [address] [id number] [place] [address] Nov, [facility] [address] [id number] [place] [address] Nov, [facility] [address] [id number] [facility] [place] [address] Nov, [facility] [address] [facility] [id number] [place] [address] Nov, [facility] [address] [id number] [place] [address] Nov, [facility] [address] [id number] [place] [address] Nov, [facility] [address] [id number] [place] [address] Nov, [facility] [address] [id number] [place] [address] Nov, [facility] [address] [id number] [place] [address] Oct, [facility] [address] [id number] [place] [address] Oct, [facility] [address] [id number] [place] [address] Oct, [facility] [address] [id number] [place] [address] Oct, [facility] [address] [id number] [place] [address] Oct, [facility] [address] [id number] [place] [address] Oct, [facility] [address] [id number] [place] [address] Oct, [facility] [address] [id number] [place] [address] Oct, [facility] [address] [id number] [place] [address] Oct, [facility] [address] [id number] [place] [address] Oct, [facility] [address] [id number] [place] [address] 14 Sep, 2013 [facility] [address] [id number] [place] [address] Sep, [facility] [address] [id number] [place] [address] 14 Sep, 2013 [facility] [address] [id number] [place] [address] Sep, [facility] [address] [id number] [place] [address] Sep, [facility] [address] [id number] [place] [address] Sep, [facility] [address] [id number] [place] [address] Aug, [facility] [address] [id number] [place] [address] Aug, [facility] [address] [id number] [place] [address] Aug, [facility] [address] [id number] [place] [address] Aug, [facility] [address] [id number] [place] [address] Aug, [facility] [address] [id number] [place] [address] Aug, [facility] [address] [id number] [place] [address] Aug, [facility] [address] [id number] [place] [address] Aug, [facility] [address] [id number] [place] [address] Jul, [facility] [address] [id number] [place] [address] Jul, [facility] [address] [id number] [place] [address] Jul, [facility] [address] [id number] [place] [address] Jul, [facility] [address] [facility] [id number] [place] [address] Jul, [facility] [address] [id number] [place] [address] Jul, [facility] [address] [id number] [place] [address] Jun, [facility] [address] [id number] [place] [address] Jun, [facility] [address] [id number] [place] [address] Jun, [facility] [address] [id number] [place] [address] May, [facility] [address] [id number] [place] [address] May, [facility] [address] [id number] [place] [address] May, [facility] [address] [id number] [place] [address] Apr, [facility] [address] [id number] [place] [address] Apr, [facility] [address] [id number] [place] [address] Apr, [facility] [address] [id number] [place] [address] Apr, [facility] [address] [id number] [place] [address] Mar, [facility] [address] [id number] [place] [address] Mar, [facility] [address] [id number] [place] [address] Mar, [facility] [address] [id number] [place] [address] Mar, [facility] [address] [id number] [place] [address] Feb, [facility] [address] [id number] [place] [address] Feb, [facility] [address] [id number] [place] [address] Feb, [facility] [address] [id number] [place] [address] Feb, [facility] [address] [id number] [place] [address] January, [facility] [address] [id number] [place] [address] January, [facility] [address] [id number] [place] [address] January, [facility] [address] [id number] [place] [address] Nov, [facility] [address] [id number] [place] [address] Nov, [facility] [address] [id number] [place] [address] Oct, [facility] [address] [id number] [place] [address] Oct, [facility] [address] [id number] [place] [address] Oct, [facility] [address] [id number] [place] [address] Oct, [facility] [address] [id number] [place] [address] Sep, [facility] [address] [id number] [place] [address] Sep, [facility] [address] [id number] [place] [address] Sep, [facility] [address] [id number] [place] [address] Aug, [facility] [address] [id number] [place] [address] Aug, [facility] [address] [id number] [place] [address] Aug, [facility] [address] [id number] [place] [address] Aug, [facility] [address] [id number] [place] [address] Aug, [facility] [address] [id number] [place] [address] Aug, [facility] [address] [id number] [place] [address] Jul, [facility] [address] [id number] [place] [address] Jul, [facility] [address] [id number] [place] [address] Jun, [facility] [address] [id number] [place] [address] Jun, [facility] [address] [id number] [place] [address] Jun, [facility] [address] [id number] [place] [address] Apr, [facility] [address] [id number] [place] [address] Apr, [facility] [address] [id number] [place] [address] Mar, [facility] [address] [id number] [place] [address] Mar, [facility] [address] [id number] [place] [address] Mar, [facility] [address] [id number] [place] [address] Mar, [facility] [address] [id number] [place] [address] Feb, [facility] [address] [id number] [place] [address] Feb, [facility] [address] [id number] [place] [address] Feb, [facility] [address] [id number] [place] [address] January, [facility] [address] [id number] [place] [address] January, [facility] [address] [id number] [place] [address] January, [facility] [address] [id number] [place] [address] January, [facility] [address] [id number] [place] [address] Dec, [facility] [address] [id number] [place] [address] Dec, [facility] [address] [id number] [place] [address] Nov, [facility] [address] [id number] [place] [address] Nov, [facility] [address] [id number] [place] [address] Oct, [facility] [address] [id number] [place] [address] Oct, [facility] [address] [id number] [place] [address] Sep, [facility] [address] [id number] [place] [address] Sep, [facility] [address] [id number] [place] [address] Sep, [facility] [address] [id number] [place] [address] Sep, [facility] [address] [id number] [place] [address] Aug, [facility] [address] [id number] [place] [address] Aug, [facility] [address] [id number] [place] [address] Aug, [facility] [address] [id number] [place] [address] Jul, [facility] [address] [id number] [place] [address] Aug, [facility] [address] [id number] [place] [address] Aug, [facility] [address] [id number] [place] [address] Aug, [facility] [address] [id number] [place] [address] Aug, [facility] [address] [id number] [place] [address] Jul, [facility] [id number] [place] [address] Jul, [facility] [address] [id number] [place] [address] Jul, [facility] [address] [id number] [place] [address] Jun, [facility] [address] [id number] [place] [address] Jun, [facility] [address] [id number] [place] [address] Jun, [facility] [address] [id number] [place] [address] Apr, [facility] [address] [id number] [place] [address] Mar, IMMUNIZATIONS No Known Immunizations SOCIAL HISTORY [...]
--- OUTSIDE RECORDS SUMMARY | 2020-03-18 15:09 | XMS REPORT ---
Author Author George Marx Doctor Organization [facility] Address Unknown Phone Unavailable Care Team Providers Care Farm Consultant Name Role Phone Migration, Doctor Unavailable Unavailable PROBLEMS Type Condition ICD9-CM Code AKD19-DM Code Onset Dates Condition S tatus SNOMED Code Problem Hypertension, benign I10 Active 76610108 Problem Other chronic pain G89.29 Active 8 6158043 Problem Lumbago with sciatica, unspecified side M54.40 Active 613200533 Problem Controlled type 2 diabetes m ellitus without complication, without long- term current use of insulin E11.9 Active 763171469 Problem Lumbago with sciatica, right side M54.41 Active 308879360 Problem Adjustment disorder with disturbance of emotion F4 3.29 Active 81024860 Problem MELE (obstructive sleep apnea) G47.33 Active 27760147 Problem Non morbid obesity E66.9 Active 4 99618146 Problem Hammer toe of left foot M20.42 Active 437940948 Problem Mood disorder F39 Active 218294 05 Problem Deformity of left foot M21.962 Active 020170740 Problem Lumbago with sciatica, left side M54.42 Active 962835168 Problem Erectile dysfunction due to diseases classified elsewhere N52.1 Active 625858973 Problem Obstructive sleep apnea syndrome G47.33 Active 94661756 Problem Type 2 diabetes mellitus wit h diabetic neuropathy, without long-term current use of insulin E11.40 Active 75997 006 Problem Essential hypertension I10 Active 94427914 ALLERGIES No Information ENCOUNTERS Encounter Location Date Diagnosis [facility] [address] [id number] [place] [address] Nov, Type 2 diabetes mellitus with diabetic n europathy, without long-term current use of insulin E11.40 ; Family history of prostate cancer Z80.42 and Prostate cancer screening Z12.5 [facility] [address] [id number] [place] [address] Nov, [facility] [address] [address] Sep, [facility] [address] [address] Aug, [facility] [address] [address] Jul, Lumbago with sciatica, unspecified side M54.40 [facility] [address] [address] Jun, Lumbago with sciatica, unspecified side M54.40 [place] [address] [address] Jun, URI, acute J06.9 [place] [address] [address] May, Lumbago with sciatica, unspecified side M54.40 [place] [address] [address] May, [facility] [address] [address] May, Type 2 diabetes mellitus with diabetic n europathy, without long-term current use of insulin E11.40 and Hammer toe of left foot M20.42 [place] [address] [address] May, [place] [address] [address] May, [facility] [address] [address] May, [facility] [address] [address] Apr, Lumbago with sciatica, unspecified side M54.40 [facility] [address] [address] Apr, [facility] [address] [address] Apr, [address] [place] [address] Apr, Hammer toe of left foot M20. 42 ; Chest pain R07.9 ; Preoperative examination Z01.818 and Morbid obesity E66.01 [place] [address] [address] Apr, Morbid obesity E66.01 ; Bronchitis J40 a nd High risk medications (not anticoagulants) long-term use Z79.899 [place] [address] [address] Apr, Lumbago with sciatica, unspecified side M54.40 [place] [address] [address] Apr, [place] [address] [address] Mar, Lumbar neuritis M54.16 and Morbid obesit y E66.01 [place] [address] [address] Mar, [place] [address] [address] Mar, [place] [address] [address] Mar, Lumbago with sciatica, unspecified side M54.40 [place] [address] [address] Mar, Morbid obesity E66.01 ; Coughing R05 ; 2 + pitting edema R60.9 and Controlled type 2 diabetes mellitus without complication, without long-term current use of insulin E11.9 [place] [address] [address] Feb, [address] [address] Feb, Lumbago with sciatica, unspecified side M54.40 [place] [address] [address] Feb, [place] [address] [address] Feb, Controlled type 2 diabetes mellitus with out complication, without long-term current use of insulin E11.9 and Morbid obesity E66.01 [place] [address] [address] January, Deformity of left foot M21.962 [place] [address] [address] January, [place] [address] [address] January, Lumbago with sciatica, unspecified side M54.40 [place] [address] [address] January, [place] [address] [address] January, Lumbago with sciatica, unspecified side M54.40 [place] [address] [address] January, [place] [address] [address] January, Acute right-sided thoracic back pain M54 .6 [place] [address] [address] January, Acute right-sided thoracic back pain M54 .6 [place] [address] [address] January, Chest pain, unspecified type R07.9 ; Mor bid obesity E66.01 and Scabies B86 [place] [address] [address] Dec, Lumbago with sciatica, unspecified side M54.40 [place] [address] [address] Dec, Toenail fungus B35.1 [place] [address] [address] Dec, Toenail fungus B35.1 [place] [address] [address] Dec, Acute right-sided thoracic back pain M54 .6 [place] [address] [address] Dec, Lumbago with sciatica, unspecified side M54.40 [place] [address] [address] Nov, Hammer toe of left foot M20.42 ; Deformi ty of left foot M21.962 and Type 2 diabetes mellitus with diabetic neuropathy, without long-term current use of insulin E11.40 [facility] [address] [facility] [id number] [address] [place] [address] Nov, Acute right-sided thoracic b ack pain M54.6 ; Morbid obesity E66.01 and Rt flank pain R10.9 [place] [address] [address] Nov, Lumbago with sciatica, unspecified side M54.40 [place] [address] [address] Oct, Lumbago with sciatica, unspecified side M54.40 [place] [address] [address] Sep, Lumbago with sciatica, unspecified side M54.40 [place] [address] [address] Sep, [place] [address] [address] Sep, BMI 40.0-44.9, adult Z68.41 ; Lumbago wi th sciatica, left side M54.42 ; Lumbago with sciatica, right side M54.41 and Other chronic pain G89.29 [place] [address] [address] Aug, Lumbago with sciatica, unspecified side M54.40 [place] [address] [address] Aug, Type 2 diabetes mellitus with diabetic n europathy, without long-term current use of insulin E11.40 ; Hammer toe of left foot M20.42 ; Hypertension, benign I10 and Frequent headaches R51 [place] [address] [address] Jul, Lumbago with sciatica, unspecified side M54.40 [place] [address] [address] Jul, [place] [address] [address] Jul, Essential hypertension I10 and Controlle d type 2 diabetes mellitus without complication, without long-term current use of insulin E11.9 [place] [address] [address] Jul, Essential hypertension I10 ; Controlled type 2 diabetes mellitus without complication, without long-term current use of insulin E11.9 and BMI 40.0-44.9, adult Z68.41 [place] [address] [address] Jul, Dysfunction of left eustachian tube H69. 82 [place] [address] [address] Jul, Lumbago with sciatica, unspecified side M54.40 [facility] [address] [place] [id number] [place] [id number] Jun, Dental examination Z01.20 [place] [address] [address] Jun, Lumbago with sciatica, unspecified side M54.40 and Encounter for immunization Z23 [place] [address] [place] [id number] [place] [address] Jun, Dysfunction of left eustachian tube H69. [address] [facility] [id number] [place] [id number] Jun, Dental examination Z01.20 [facility] [address] [place] [id number] [place] [address] Jun, Other chronic pain G89.29 [facility] [address] [facility] [place] [id number] Jun, Dental examination Z01.20 [place] [address] [address] Jun, [place] [address] [address] Jun, Bronchitis J40 ; Dysfunction of left eus tachian tube H69.82 and BMI 45.0-49.9, adult Z68.42 [place] [address] [address] Jun, Lumbago with sciatica, unspecified side M54.40 [facility] [address] [address] May, Type 2 diabetes mellitus with diabetic n europathy, without long-term current use of insulin E11.40 and Hypertension, benign I10 [place] [address] [address] May, Lumbago with sciatica, unspecified side M54.40 [facility] [address] [facility] [id number] [address] [place] [address] Apr, [facility] [address] [address] Apr, Controlled type 2 diabetes mellitus with out complication, without long-term current use of insulin E11.9 ; Insect bite (nonvenomous), right ankle, initial encounter S90.561A ; Local infection of the skin and subcutaneous tissue, unspecified L08.9 ; Acute swimmer''s ear of left side H60.332 and BMI 45.0-49.9, adult Z68.42 [place] [address] [address] Apr, Lumbago with sciatica, unspecified side M54.40 [place] [address] [address] Mar, [place] [address] [address] Mar, Lumbago with sciatica, unspecified side M54.40 [place] [address] [address] Feb, Lumbago with sciatica, unspecified side M54.40 [place] [address] [address] Feb, BMI 45.0-49.9, adult Z68.42 and Obstruct jaida sleep apnea syndrome G47.33 [place] [address] [address] January, Lumbar neuritis M54.16 [place] [address] [address] January, Lumbago with sciatica, unspecified side M54.40 [place] [address] [address] Dec, Controlled type 2 diabetes mellitus with out complication, without long-term current use of insulin E11.9 ; Erectile dysfunction due to diseases classified elsewhere N52.1 and Mood disorder F39 [place] [address] [address] Dec, Lumbago with sciatica, unspecified side M54.40 [place] [address] [address] Dec, Obstructive sleep apnea syndrome G47.33 [place] [address] [address] Nov, Lumbago with sciatica, unspecified side M54.40 ; Hypertension, benign I10 and Mood disorder F39 [facility] [address] [address] Nov, Other chronic pain G89.29 [facility] [address] [address] Nov, Lumbago with sciatica, unspecified side M54.40 [facility] [address] [id number] Nov, Dental examination Z01.20 [facility] [address] [address] Oct, [facility] [address] [address] Oct, Lumbago with sciatica, unspecified side M54.40 [facility] [address] [address] Oct, Lumbago with sciatica, unspecified side M54.40 [facility] [address] [address] Oct, [facility] [address] [address] Oct, [facility] [address] [id number] Oct, Dental examination Z01.20 [facility] [address] [address] Oct, [facility] [address] [address] Oct, Pain in right knee M25.561 [facility] [address] [address] Sep, [facility] [address] [address] 26 Alexx, 2018 Other chronic pain G89.29 [place] [address] [place] [id number] [place] [address] Sep, Lumbago with sciatica, unspecified side M54.40 [place] [address] [address] Sep, [facility] [address] [place] [id number] [place] [address] Sep, Viral URI J06.9 and BMI 45.0 -49.9, adult Z68.42 [facility] [address] [address] Aug, Foreign body hand S60.559A a nd BMI 45.0-49.9, adult Z68.42 [place] [address] [address] Aug, [place] [address] [address] Aug, Lumbago with sciatica, unspecified side M54.40 [place] [address] [address] Aug, Vertigo R42 ; Dysfunction of both eustac hian tubes H69.83 ; Low back pain M54.5 and Other chronic pain G89.29 [facility] [place] [address] [place] [id number] [place] [address] Aug, Dizziness R42 and Acute bila teral otitis media H66.93 [place] [address] [address] Aug, Lumbago with sciatica, unspecified side M54.40 [facility] [address] [facility] [place] [id number] Jul, Dental examination Z01.20 [place] [address] [address] Jul, [place] [address] [address] Jul, [facility] [address] [address] Jul, Dysfunction of both eustachian tubes H69 .83 [facility] [address] [address] Jul, Controlled type 2 diabetes mellitus with out complication, without long-term current use of insulin E11.9 [facility] [address] [address] Jul, Controlled type 2 diabetes mellitus with out complication, without long-term current use of insulin E11.9 [facility] [address] [facility] [id number] [address] [place] [address] Jul, Dizziness R42 and BMI 40.0-4 4.9, adult Z68.41 [place] [address] [address] Jul, Controlled type 2 diabetes mellitus with out complication, without long-term current use of insulin E11.9 [place] [address] [address] Jul, Lumbago with sciatica, unspecified side M54.40 [facility] [address] [id number] Jul, Dental examination Z01.20 [facility] [address] [address] Jun, [facility] [address] [id number] Jun, Dental examination Z01.20 [place] [address] [address] Jun, Controlled type 2 diabetes mellitus with out complication, without long-term current use of insulin E11.9 [facility] [address] [address] Jun, Lumbago with sciatica, unspecified side M54.40 [facility] [address] [id number] May, Dental examination Z01.20 [facility] [address] [address] 21 May, 2017 Controlled type 2 diabetes mellitus with out complication, without long-term current use of insulin E11.9 [facility] [address] [id number] May, Dental examination Z01.20 [facility] [address] [address] 18 May, 2017 Bronchitis J40 ; Dry mouth R68.2 ; Non m orbid obesity E66.9 and Controlled type 2 diabetes mellitus without complication, without long-term current use of insulin E11.9 [facility] [address] [facility] [id number] [address] [place] [address] 16 May, 2017 Encounter for immunization Z 23 [facility] [address] [address] 07 May, 2017 Lumbago with sciatica, unspecified side M54.40 [facility] [address] [address] 05 May, 2017 [facility] [address] [id number] Apr, Dental examination Z01.20 [facility] [address] [address] Apr, Lumbago with sciatica, unspecified side M54.40 [facility] [address] [facility] [id number] [place] [address] Mar, Lumbago with sciatica, left side M54.42 [facility] [address] [address] Mar, [facility] [address] [address] Mar, Lumbar neuritis M54.16 [facility] [address] [address] Mar, [facility] [address] [facility] [place] [id number] Mar, Dental examination Z01.20 [place] [address] [address] Mar, MELE (obstructive sleep apnea) G47.33 ; N europathy involving both lower extremities G57.93 and Frequent headaches R51 [place] [address] [address] Mar, Lumbago with sciatica, unspecified side M54.40 [place] [address] [address] Feb, Lumbago with sciatica, unspecified side M54.40 and Controlled type 2 diabetes mellitus without complication, without long-term current use of insulin E11.9 [place] [address] [address] January, Hypertension, benign I10 and Bilateral l ow back pain with sciatica, sciatica laterality unspecified M54.40 [place] [address] [address] January, Hypertension, benign I10 ; Lumbago with sciatica, unspecified side M54.40 ; Other chronic pain G89.29 and Controlled type 2 diabetes mellitus without complication, without long-term current use of insulin E11.9 [place] [address] [address] January, Lumbar neuritis M54.16 [place] [address] [address] January, [place] [address] [address] Dec, Lumbago with sciatica, right side M54.41 and Lumbar neuritis M54.16 [place] [address] [address] Dec, Lumbar neuritis M54.16 [place] [address] [address] Dec, Lumbar neuritis M54.16 [place] [address] [address] Nov, Lumbar neuritis M54.16 ; Lumbago with sc iatica, right side M54.41 ; Controlled type 2 diabetes mellitus without complication, without long-term current use of insulin E11.9 and Rash and nonspecific skin eruption R21 [place] [address] [address] Nov, Lumbar neuritis M54.16 and Poison miroslava L2 3.[address] [address] Oct, Lumbar neuritis M54.16 ; Coughing R05 an d Mood disorder F39 [address] [address] Sep, Lumbago with sciatica, right side M54.41 [place] [address] [address] Sep, Adjustment disorder with disturbance of emotion F43.29 and Pain management R52 [address] [address] Sep, [address] [address] Sep, [address] [address] Sep, Controlled type 2 diabetes mellitus with out complication, without long-term current use of insulin E11.9 and Lumbago with sciatica, unspecified side M54.[address] [address] Aug, Controlled type 2 diabetes mellitus with out complication, without long-term current use of insulin E11.9 ; Pain in right knee M25.561 ; Pain in left knee M25.562 ; Other chronic pain G89.29 ; Lumbago with sciatica, right side M54.41 ; Neck pain M54.2 and Encounter for immunization Z23 [place] [address] [address] Jul, [facility] [address] [address] Jul, Controlled type 2 diabetes mellitus with out complication, without long-term current use of insulin E11.9 [place] [address] [address] Jul, [facility] [address] [address] Jul, [place] [address] [address] Jul, Lumbago with sciatica, left side M54.42 ; Lumbago with sciatica, right side M54.41 and Other chronic pain G89.29 [place] [address] [address] Jul, [facility] [address] [address] Jul, [place] [address] [address] Jun, [place] [address] [address] Jun, Lumbago with sciatica, right side M54.41 and Other chronic pain G89.29 [facility] [address] [address] 13 Jun, 2016 Cervicalgia M54.2 ; Lumbago with sciatic a, unspecified side M54.40 and Other chronic pain G89.29 [facility] [address] [address] 15 May, 2016 Pain in right knee M25.561 ; Pain in lef t knee M25.562 and Other chronic pain G89.29 [place] [address] [address] May, [facility] [address] [address] Apr, Other chronic pain G89.29 and Pain in ri ght knee M25.561 [place] [address] [address] Apr, Pain in right knee M25.561 [facility] [address] [address] Mar, [place] [address] [address] Mar, Mood disorder F39 and Controlled type 2 diabetes mellitus without complication, without long-term current use of insulin E11.9 [place] [address] [address] Mar, Pain in right knee M25.561 ; Pain in lef t knee M25.562 ; Other chronic pain G89.29 ; Obstructive sleep apnea syndrome G47.33 ; Mood disorder F39 and Controlled type 2 diabetes mellitus without complication, without long-term current use of insulin E11.9 [place] [address] [address] Mar, [facility] [address] [id number] Feb, Dental examination Z01.20 [place] [address] [address] Feb, [place] [address] [address] Feb, Osteoarthritis of right knee, unspecifie d osteoarthritis type M17.9 [place] [address] [address] January, [facility] [address] [id number] January, Dental examination Z01.20 [place] [address] [address] January, [facility] [address] [facility] [place] [id number] January, Dental examination Z01.20 and Caries K02 .9 [facility] [address] [place] [id number] [place] [address] Dec, Encounter for other preprocedural examin ation Z01.818 [facility] [address] [address] Dec, [facility] [address] [address] Dec, Knee pain M25.569 [facility] [address] [address] Dec, Pain in right knee M25.561 [facility] [address] [address] Dec, [facility] [address] [address] Dec, [facility] [address] [address] Dec, Encounter for immunization Z23 [facility] [address] [address] Dec, [facility] [address] [address] Dec, [facility] [address] [address] Nov, [facility] [address] [address] Nov, Hypertension, benign I10 ; Cervicalgia M 54.2 ; Pain in right knee M25.561 and Pain in left knee M25.562 [facility] [address] [address] Oct, [facility] [address] [address] Oct, [place] [address] [address] Oct, Osteoarthritis of both knees M17.0 [place] [address] [address] Oct, [place] [address] [address] Oct, Low back pain M54.5 [place] [address] [address] Oct, Low back pain M54.5 ; Sciatica, unspecif ied side M54.30 ; Pain in right knee M25.561 ; Pain in left knee M25.562 ; Pain in right shoulder M25.511 and Pain in left shoulder M25.512 [place] [address] [address] Oct, [place] [address] [address] Sep, Pain in right hip M25.[address] [address] Sep, Acute upper respiratory infection, unspe cified J06.[address] [address] Aug, Acute upper respiratory infection, unspe cified J06.9 and Other viral agents as the cause of diseases classified elsewhere B97.89 [place] [address] [address] Jul, Arthritis M19.[address] [address] Jun, Arthritis M19.90 ; Pain in right hip M25 .551 ; Pain in left hip M25.552 ; Bilateral low back pain with sciatica, sciatica laterality unspecified M54.40 ; Neck pain M54.2 ; Upper back pain M54.9 and Knee pain, unspecified laterality M25.569 [facility] [id number] [place] [address] 10 May, 2015 Osteoarthritis of both knees 715.96 [facility] [id number] [place] [address] 10 May, 2015 Rash 782.1 [facility] [address] [address] Apr, Lumbar strain 847.2 [facility] [address] [address] Apr, Rash 782.1 [facility] [address] [address] Mar, Rash 782.1 [facility] [address] [address] Feb, Rash 782.1 ; Hemorrhoids 455.6 and Const ipation 564.00 [facility] [id number] [place] [address] Feb, Osteoarthritis of both knees 715.96 [facility] [address] [address] January, [facility] [address] [address] 28 Dec, 2014 [facility] [id number] [place] [address] Dec, [facility] [id number] [place] [address] Dec, [facility] [id number] [place] [address] Nov, [facility] [id number] [place] [address] Nov, [facility] [id number] [place] [address] Nov, [facility] [id number] [place] [address] Nov, [facility] [address] [facility] [id number] [place] [address] Nov, [facility] [address] [id number] [place] [address] Nov, [facility] [address] [id number] [place] [address] Oct, [facility] [address] [id number] [place] [address] Oct, [facility] [address] [id number] [place] [address] Oct, [facility] [address] [id number] [place] [address] Oct, [facility] [address] [id number] [place] [address] Oct, [facility] [address] [id number] [place] [address] Oct, [facility] [address] [id number] [place] [address] Oct, [facility] [address] [id number] [place] [address] Oct, [facility] [address] [id number] [place] [address] Oct, [facility] [address] [id number] [place] [address] Oct, [facility] [address] [id number] [place] [address] Oct, [facility] [address] [id number] [place] [address] Sep, [facility] [address] [id number] [place] [address] Sep, [facility] [address] [id number] [place] [address] Sep, [facility] [address] [id number] [place] [address] Sep, [facility] [address] [id number] [place] [address] Sep, [facility] [address] [id number] [place] [address] Sep, [facility] [address] [id number] [place] [address] Aug, [facility] [address] [id number] [place] [address] Aug, [facility] [address] [id number] [place] [address] Aug, [facility] [address] [id number] [place] [address] Aug, [facility] [address] [id number] [place] [address] Aug, [facility] [address] [id number] [place] [address] Aug, [facility] [address] [id number] [place] [address] Aug, [facility] [address] [id number] [place] [address] Aug, [facility] [address] [id number] [place] [address] Aug, [facility] [address] [id number] [place] [address] Aug, [facility] [address] [id number] [place] [address] Jul, [facility] [address] [id number] [place] [address] Jul, [facility] [address] [id number] [place] [address] Jul, [facility] [address] [id number] [place] [address] Jul, [facility] [address] [facility] [id number] [place] [address] Jun, [facility] [address] [facility] [id number] [place] [address] Jun, [facility] [address] [id number] [place] [address] Jun, [facility] [address] [id number] [place] [address] Jun, [facility] [address] [id number] [place] [address] Jun, [facility] [address] [id number] [place] [address] Jun, [facility] [address] [id number] [place] [address] Jun, [facility] [address] [id number] [place] [address] Jun, [facility] [address] [id number] [place] [address] 24 May, 2014 [facility] [address] [id number] [place] [address] 24 May, 2014 [facility] [address] [id number] [place] [address] 19 May, 2013 [facility] [address] [id number] [place] [address] 19 May, 2013 [facility] [address] [id number] [place] [address] 15 Sep, 2013 [facility] [address] [id number] [place] [address] 15 May, 2013 [facility] [address] [id number] [place] [address] 15 May, 2013 [facility] [address] [id number] [place] [address] May, [facility] [address] [id number] [place] [address] Apr, [facility] [address] [id number] [place] [address] Apr, [facility] [address] [id number] [place] [address] Apr, [facility] [address] [id number] [place] [address] Apr, [facility] [address] [id number] [place] [address] Apr, [facility] [address] [id number] [place] [address] Apr, [facility] [address] [id number] [place] [address] Apr, [facility] [address] [id number] [place] [address] Apr, [facility] [address] [id number] [place] [address] Apr, [facility] [address] [id number] [place] [address] Apr, [facility] [address] [id number] [place] [address] Apr, [facility] [address] [id number] [place] [address] Apr, [facility] [address] [id number] [place] [address] Mar, [facility] [address] [id number] [place] [address] Mar, [facility] [address] [id number] [place] [address] Mar, [facility] [address] [id number] [place] [address] Mar, [facility] [address] [id number] [place] [address] Mar, [facility] [address] [facility] [id number] [facility] [place] [address] Mar, [facility] [address] [facility] [id number] [facility] [place] [address] Feb, [facility] [address] [id number] [facility] [place] [address] Feb, [facility] [address] [facility] [id number] [facility] [place] [address] Feb, [facility] [address] [facility] [id number] [facility] [place] [address] Feb, [facility] [address] [id number] [place] [address] Feb, [facility] [address] [id number] [place] [address] Feb, [facility] [address] [id number] [place] [address] Feb, [facility] [address] [id number] [place] [address] Feb, [facility] [address] [id number] [place] [address] Feb, [facility] [address] [id number] [place] [address] 05 Feb, 2014 [facility] [address] [id number] [place] [address] Feb, [facility] [address] [facility] [id number] [place] [address] Feb, [facility] [address] [id number] [place] [address] Feb, [facility] [address] [id number] [place] [address] Feb, [facility] [address] [id number] [place] [address] January, [facility] [address] [id number] [place] [address] January, [facility] [address] [facility] [id number] [place] [address] January, [facility] [address] [id number] [place] [address] January, [facility] [address] [id number] [place] [address] January, [facility] [address] [id number] [place] [address] January, [facility] [address] [id number] [place] [address] Dec, [facility] [address] [id number] [place] [address] Dec, [facility] [address] [id number] [place] [address] Dec, [facility] [address] [id number] [place] [address] Dec, [facility] [address] [id number] [place] [address] Dec, [facility] [address] [id number] [place] [address] Dec, [facility] [address] [id number] [place] [address] Dec, [facility] [address] [id number] [place] [address] Dec, [facility] [address] [id number] [place] [address] Nov, [facility] [address] [id number] [place] [address] Nov, [facility] [address] [id number] [place] [address] Nov, [facility] [address] [id number] [place] [address] Nov, [facility] [address] [id number] [place] [address] Nov, [facility] [address] [id number] [place] [address] Nov, [facility] [address] [id number] [place] [address] Nov, [facility] [address] [id number] [place] [address] Nov, [facility] [address] [facility] [id number] [facility] [place] [address] Oct, [facility] [address] [id number] [place] [address] Oct, [facility] [address] [id number] [place] [address] Oct, [facility] [address] [id number] [place] [address] Oct, [facility] [address] [id number] [place] [address] Oct, [facility] [address] [id number] [place] [address] Oct, [facility] [address] [id number] [place] [address] Oct, [facility] [address] [id number] [place] [address] Oct, [facility] [address] [id number] [place] [address] Oct, [facility] [address] [id number] [place] [address] Oct, [facility] [address] [id number] [place] [address] Sep, [facility] [address] [id number] [place] [address] Sep, [facility] [address] [id number] [place] [address] 14 Sep, 2013 [facility] [address] [id number] [place] [address] 14 Sep, 2013 [facility] [address] [id number] [place] [address] 07 Sep, 2013 [facility] [address] [id number] [place] [address] Sep, [facility] [address] [id number] [place] [address] Aug, [facility] [address] [id number] [place] [address] Aug, [facility] [address] [id number] [place] [address] Aug, [facility] [address] [id number] [place] [address] Aug, [facility] [address] [id number] [place] [address] Aug, [facility] [address] [id number] [place] [address] Aug, [facility] [address] [id number] [place] [address] Aug, [facility] [address] [id number] [place] [address] Aug, [facility] [address] [id number] [place] [address] Jul, [facility] [address] [id number] [place] [address] Jul, [facility] [address] [id number] [place] [address] Jul, [facility] [address] [id number] [place] [address] Jul, [facility] [address] [id number] [place] [address] Jul, [facility] [address] [id number] [place] [address] Jul, [facility] [address] [id number] [place] [address] Jun, [facility] [address] [id number] [place] [address] Jun, [facility] [address] [id number] [place] [address] Jun, [facility] [address] [id number] [place] [address] May, [facility] [address] [id number] [place] [address] May, [facility] [address] [id number] [place] [address] May, [facility] [address] [id number] [place] [address] Apr, [facility] [address] [id number] [place] [address] Apr, [facility] [address] [id number] [place] [address] Apr, [facility] [address] [id number] [place] [address] Apr, [facility] [address] [id number] [place] [address] Mar, [facility] [address] [id number] [place] [address] Mar, [facility] [address] [id number] [place] [address] Mar, [facility] [address] [id number] [place] [address] Mar, [facility] [address] [id number] [place] [address] Feb, [facility] [address] [id number] [place] [address] Feb, [facility] [address] [facility] [id number] [facility] [place] [address] Feb, [facility] [address] [id number] [place] [address] Feb, [facility] [address] [id number] [facility] [place] [address] January, [facility] [address] [id number] [place] [address] January, [facility] [address] [id number] [facility] [place] [address] January, [facility] [address] [id number] [place] [address] Nov, [facility] [address] [id number] [place] [address] Nov, [facility] [address] [id number] [place] [address] Oct, [facility] [address] [id number] [place] [address] Oct, [facility] [address] [id number] [place] [address] Oct, [facility] [address] [id number] [place] [address] Oct, [facility] [address] [id number] [place] [address] Sep, [facility] [address] [id number] [place] [address] Sep, [facility] [address] [id number] [place] [address] Sep, [facility] [address] [id number] [place] [address] Aug, [facility] [address] [id number] [place] [address] Aug, [facility] [address] [id number] [place] [address] Aug, [facility] [address] [id number] [place] [address] Aug, [facility] [address] [id number] [place] [address] Aug, [facility] [address] [id number] [place] [address] Aug, [facility] [address] [id number] [place] [address] Jul, [facility] [address] [id number] [place] [address] Jul, [facility] [address] [id number] [place] [address] Jun, [facility] [address] [id number] [place] [address] Jun, [facility] [address] [id number] [place] [address] Jun, [facility] [address] [id number] [place] [address] Apr, [facility] [address] [id number] [place] [address] Apr, [facility] [address] [id number] [place] [address] Mar, [facility] [address] [id number] [place] [address] Mar, [facility] [address] [id number] [place] [address] Mar, [facility] [address] [id number] [place] [address] Mar, [facility] [address] [id number] [place] [address] Feb, [facility] [address] [id number] [place] [address] Feb, [facility] [address] [id number] [place] [address] Feb, [facility] [address] [id number] [place] [address] January, [facility] [address] [id number] [place] [address] January, [facility] [address] [id number] [place] [address] January, [facility] [address] [facility] [id number] [place] [address] January, [facility] [address] [id number] [place] [address] Dec, [facility] [address] [id number] [place] [address] Dec, [facility] [address] [id number] [place] [address] Nov, [facility] [address] [id number] [place] [address] Nov, [facility] [address] [id number] [place] [address] Oct, [facility] [address] [id number] [place] [address] Oct, [facility] [address] [id number] [place] [address] Sep, [facility] [address] [id number] [place] [address] Sep, [facility] [address] [id number] [place] [address] Sep, [facility] [address] [id number] [place] [address] Sep, [facility] [address] [id number] [place] [address] Aug, [facility] [id number] [place] [address] 16 Aug, 2011 [facility] [id number] [place] [address] Aug, [facility] [id number] [place] [address] Jul, [facility] [id number] [place] [address] Aug, [facility] [id number] [place] [address] Aug, [facility] [id number] [place] [address] Aug, [facility] [id number] [place] [address] Aug, [facility] [id number] [place] [address] Jul, [facility] [address] [address] Jul, [facility] [id number] [place] [address] Jul, [facility] [address] [address] Jun, [facility] [id number] [place] [address] Jun, [facility] [id number] [place] [address] Jun, [facility] [id number] [place] [address] Apr, [facility] [address] [address] Mar, IMMUNIZATIONS No Known Immunizations SOCIAL HISTORY Never Assessed REASON FOR VISIT PLAN OF CARE VITAL SIGNS Blood pressure systolic 140 mmHg 2013-11-08 Blood pressure diastolic 90 mmHg 2013-11-08 MEDICATIONS No Known Medications RESULTS No Results [...]
--- OUTSIDE RECORDS SUMMARY | 2020-03-18 15:09 | XMS REPORT ---
Author Author George WAYNE Organization [facility] Address [address] [place] [address] Care Team Providers Care Evp Chief Exploration Officer Name Role Phone REYNA WAYNE Unavailable PROBLEMS Type Condition ICD9-CM Code ORE60-PH Code Onset Dates Condition S tatus SNOMED Code Problem Hypertension, benign I10 Active 20054252 Problem Other chronic pain G89.29 Active 8 6491254 Problem Lumbago with sciatica, unspecified side M54.40 Active 415551709 Problem Controlled type 2 diabetes m ellitus without complication, without long- term current use of insulin E11.9 Active 609067201 Problem Lumbago with sciatica, right side M54.41 Active 941519579 Problem Adjustment disorder with disturbance of emotion F4 3.29 Active 03539727 Problem MELE (obstructive sleep apnea) G47.33 Active 93414724 Problem Non morbid obesity E66.9 Active 4 58477540 Problem Hammer toe of left foot M20.42 Active 398657689 Problem Mood disorder F39 Active 730202 05 Problem Deformity of left foot M21.962 Active 488012616 Problem Lumbago with sciatica, left side M54.42 Active 957996818 Problem Erectile dysfunction due to diseases classified elsewhere N52.1 Active 936980252 Problem Obstructive sleep apnea syndrome G47.33 Active 21151338 Problem Type 2 diabetes mellitus wit h diabetic neuropathy, without long-term current use of insulin E11.40 Active 56648 006 Problem Essential hypertension I10 Active 86189978 ALLERGIES No Information ENCOUNTERS Encounter Location Date Diagnosis [facility] [address] [facility] [id number] [address] [place] [address] 18 Nov, 2019 Flu-like symptoms R68.89 and Viral URI J06.9 [facility] [address] [facility] [id number] [place] [address] 09 Nov, 2019 Type 2 diabetes mellitus with diabetic n europathy, without long-term current use of insulin E11.40 ; Family history of prostate cancer Z80.42 and Prostate cancer screening Z12.5 [place] [address] [address] Nov, [place] [address] [address] Sep, [place] [address] [address] Aug, [place] [address] [address] Jul, Lumbago with sciatica, unspecified side M54.40 [place] [address] [address] Jun, Lumbago with sciatica, unspecified side M54.40 [place] [address] [address] Jun, URI, acute J06.9 [place] [address] [address] May, Lumbago with sciatica, unspecified side M54.40 [place] [address] [address] May, [place] [address] [address] May, Type 2 diabetes mellitus with diabetic n europathy, without long-term current use of insulin E11.40 and Hammer toe of left foot M20.42 [place] [address] [address] May, [place] [address] [address] May, [place] [address] [address] May, [place] [address] [address] Apr, Lumbago with sciatica, unspecified side M54.40 [place] [address] [address] Apr, [place] [address] [address] Apr, [facility] [address] [place] [address] Apr, Hammer toe of left foot M20. 42 ; Chest pain R07.9 ; Preoperative examination Z01.818 and Morbid obesity E66.01 [place] [address] [address] Apr, Morbid obesity E66.01 ; Bronchitis J40 a nd High risk medications (not anticoagulants) long-term use Z79.899 [place] [address] [address] Apr, Lumbago with sciatica, unspecified side M54.40 [place] [address] [address] Apr, [place] [address] [address] Mar, Lumbar neuritis M54.16 and Morbid obesit y E66.01 [place] [address] [address] Mar, [place] [address] [address] Mar, [place] [address] [address] Mar, Lumbago with sciatica, unspecified side M54.40 [place] [address] [address] Mar, Morbid obesity E66.01 ; Coughing R05 ; 2 + pitting edema R60.9 and Controlled type 2 diabetes mellitus without complication, without long-term current use of insulin E11.9 [place] [address] [address] Feb, [facility] [address] [address] Feb, Lumbago with sciatica, unspecified side M54.40 [facility] [address] [address] Feb, [facility] [address] [address] Feb, Controlled type 2 diabetes mellitus with out complication, without long-term current use of insulin E11.9 and Morbid obesity E66.01 [place] [address] [address] January, Deformity of left foot M21.962 [place] [address] [address] January, [place] [address] [address] January, Lumbago with sciatica, unspecified side M54.40 [place] [address] [address] January, [place] [address] [address] January, Lumbago with sciatica, unspecified side M54.40 [place] [address] [address] January, [facility] [address] [address] January, Acute right-sided thoracic back pain M54 .6 [place] [address] [address] January, Acute right-sided thoracic back pain M54 .6 [facility] [address] [address] January, Chest pain, unspecified type R07.9 ; Mor bid obesity E66.01 and Scabies B86 [place] [address] [address] Dec, Lumbago with sciatica, unspecified side M54.40 [place] [address] [address] Dec, Toenail fungus B35.1 [place] [address] [address] Dec, Toenail fungus B35.1 [place] [address] [address] Dec, Acute right-sided thoracic back pain M54 .6 [place] [address] [address] Dec, Lumbago with sciatica, unspecified side M54.40 [place] [address] [address] Nov, Hammer toe of left foot M20.42 ; Deformi ty of left foot M21.962 and Type 2 diabetes mellitus with diabetic neuropathy, without long-term current use of insulin E11.40 [facility] [address] [facility] [id number] [address] [place] [address] Nov, Acute right-sided thoracic b ack pain M54.6 ; Morbid obesity E66.01 and Rt flank pain R10.9 [place] [address] [address] Nov, Lumbago with sciatica, unspecified side M54.40 [place] [address] [address] Oct, Lumbago with sciatica, unspecified side M54.40 [place] [address] [address] Sep, Lumbago with sciatica, unspecified side M54.40 [place] [address] [address] Sep, [place] [address] [address] Sep, BMI 40.0-44.9, adult Z68.41 ; Lumbago wi th sciatica, left side M54.42 ; Lumbago with sciatica, right side M54.41 and Other chronic pain G89.29 [place] [address] [address] Aug, Lumbago with sciatica, unspecified side M54.40 [place] [address] [address] Aug, Type 2 diabetes mellitus with diabetic n europathy, without long-term current use of insulin E11.40 ; Hammer toe of left foot M20.42 ; Hypertension, benign I10 and Frequent headaches R51 [place] [address] [address] Jul, Lumbago with sciatica, unspecified side M54.40 [place] [address] [address] Jul, [place] [address] [address] Jul, Essential hypertension I10 and Controlle d type 2 diabetes mellitus without complication, without long-term current use of insulin E11.9 [place] [address] [address] Jul, Essential hypertension I10 ; Controlled type 2 diabetes mellitus without complication, without long-term current use of insulin E11.9 and BMI 40.0-44.9, adult Z68.41 [place] [address] [address] Jul, Dysfunction of left eustachian tube H69. 82 [place] [address] [address] Jul, Lumbago with sciatica, unspecified side M54.40 [facility] [address] [id number] Jun, Dental examination Z01.20 [facility] [address] [address] Jun, Lumbago with sciatica, unspecified side M54.40 and Encounter for immunization Z23 [facility] [address] [address] Jun, Dysfunction of left eustachian tube H69. [address] [facility] [address] [place] [id number] Jun, Dental examination Z01.20 [facility] [address] [address] Jun, Other chronic pain G89.29 [facility] [address] [id number] Jun, Dental examination Z01.20 [place] [address] [address] Jun, [facility] [address] [address] Jun, Bronchitis J40 ; Dysfunction of left eus tachian tube H69.82 and BMI 45.0-49.9, adult Z68.42 [place] [address] [address] Jun, Lumbago with sciatica, unspecified side M54.40 [facility] [address] [address] May, Type 2 diabetes mellitus with diabetic n europathy, without long-term current use of insulin E11.40 and Hypertension, benign I10 [place] [address] [address] May, Lumbago with sciatica, unspecified side M54.40 [facility] [address] [facility] [id number] [address] [place] [address] Apr, [facility] [address] [address] Apr, Controlled type 2 diabetes mellitus with out complication, without long-term current use of insulin E11.9 ; Insect bite (nonvenomous), right ankle, initial encounter S90.561A ; Local infection of the skin and subcutaneous tissue, unspecified L08.9 ; Acute swimmer''s ear of left side H60.332 and BMI 45.0-49.9, adult Z68.42 [place] [address] [address] Apr, Lumbago with sciatica, unspecified side M54.40 [place] [address] [address] Mar, [place] [address] [address] Mar, Lumbago with sciatica, unspecified side M54.40 [place] [address] [address] Feb, Lumbago with sciatica, unspecified side M54.40 [place] [address] [address] Feb, BMI 45.0-49.9, adult Z68.42 and Obstruct jaida sleep apnea syndrome G47.33 [place] [address] [address] January, Lumbar neuritis M54.16 [place] [address] [address] January, Lumbago with sciatica, unspecified side M54.40 [place] [address] [address] Dec, Controlled type 2 diabetes mellitus with out complication, without long-term current use of insulin E11.9 ; Erectile dysfunction due to diseases classified elsewhere N52.1 and Mood disorder F39 [place] [address] [address] Dec, Lumbago with sciatica, unspecified side M54.40 [facility] [address] [address] Dec, Obstructive sleep apnea syndrome G47.33 [facility] [address] [address] Nov, Lumbago with sciatica, unspecified side M54.40 ; Hypertension, benign I10 and Mood disorder F39 [facility] [address] [address] Nov, Other chronic pain G89.29 [place] [address] [place] [address] Nov, Lumbago with sciatica, unspecified side M54.40 [facility] [address] [id number] Nov, Dental examination Z01.20 [place] [address] [address] Oct, [facility] [address] [address] Oct, Lumbago with sciatica, unspecified side M54.40 [place] [address] [address] Oct, Lumbago with sciatica, unspecified side M54.40 [facility] [address] [address] Oct, [facility] [address] [address] Oct, [facility] [address] [id number] Oct, Dental examination Z01.20 [facility] [address] [address] Oct, [facility] [address] [address] Oct, Pain in right knee M25.561 [place] [address] [address] Sep, [place] [address] [address] Sep, Other chronic pain G89.29 [place] [address] [address] Sep, Lumbago with sciatica, unspecified side M54.40 [place] [address] [address] Sep, [facility] [place] [address] [address] Sep, Viral URI J06.9 and BMI 45.0 -49.9, adult Z68.42 [facility] [address] [address] Aug, Foreign body hand S60.559A a nd BMI 45.0-49.9, adult Z68.42 [place] [address] [address] Aug, [place] [address] [address] Aug, Lumbago with sciatica, unspecified side M54.40 [place] [address] [address] Aug, Vertigo R42 ; Dysfunction of both eustac hian tubes H69.83 ; Low back pain M54.5 and Other chronic pain G89.29 [facility] [address] [address] Aug, Dizziness R42 and Acute bila teral otitis media H66.93 [place] [address] [address] Aug, Lumbago with sciatica, unspecified side M54.40 [facility] [address] [place] [id number] [place] [id number] Jul, Dental examination Z01.20 [facility] [address] [address] Jul, [facility] [address] [address] Jul, [place] [address] [address] Jul, Dysfunction of both eustachian tubes H69 .83 [place] [address] [address] Jul, Controlled type 2 diabetes mellitus with out complication, without long-term current use of insulin E11.9 [place] [address] [address] Jul, Controlled type 2 diabetes mellitus with out complication, without long-term current use of insulin E11.9 [facility] [address] [facility] [id number] [place] [address] Jul, Dizziness R42 and BMI 40.0-4 4.9, adult Z68.41 [place] [address] [address] Jul, Controlled type 2 diabetes mellitus with out complication, without long-term current use of insulin E11.9 [place] [address] [address] Jul, Lumbago with sciatica, unspecified side M54.40 [facility] [address] [id number] Jul, Dental examination Z01.20 [facility] [address] [address] Jun, [facility] [address] [id number] Jun, Dental examination Z01.20 [place] [address] [address] Jun, Controlled type 2 diabetes mellitus with out complication, without long-term current use of insulin E11.9 [facility] [address] [address] Jun, Lumbago with sciatica, unspecified side M54.40 [facility] [address] [id number] May, Dental examination Z01.20 [facility] [address] [address] May, Controlled type 2 diabetes mellitus with out complication, without long-term current use of insulin E11.9 [facility] [address] [id number] May, Dental examination Z01.20 [facility] [address] [address] May, Bronchitis J40 ; Dry mouth R68.2 ; Non m orbid obesity E66.9 and Controlled type 2 diabetes mellitus without complication, without long-term current use of insulin E11.9 [facility] [address] [address] 16 May, 2017 Encounter for immunization Z 23 [facility] [address] [address] May, Lumbago with sciatica, unspecified side M54.40 [facility] [address] [address] May, [facility] [address] [id number] Apr, Dental examination Z01.20 [facility] [address] [address] Apr, Lumbago with sciatica, unspecified side M54.40 [facility] [address] [facility] [id number] [address] [place] [address] Mar, Lumbago with sciatica, left side M54.42 [facility] [address] [address] Mar, [place] [address] [address] Mar, Lumbar neuritis M54.16 [place] [address] [place] [id number] Mar, [facility] [address] [id number] [place] [id number] Mar, Dental examination Z01.20 [place] [address] [address] Mar, MELE (obstructive sleep apnea) G47.33 ; N europathy involving both lower extremities G57.93 and Frequent headaches R51 [place] [address] [address] Mar, Lumbago with sciatica, unspecified side M54.40 [place] [address] [address] Feb, Lumbago with sciatica, unspecified side M54.40 and Controlled type 2 diabetes mellitus without complication, without long-term current use of insulin E11.9 [place] [address] [address] January, Hypertension, benign I10 and Bilateral l ow back pain with sciatica, sciatica laterality unspecified M54.40 [place] [address] [address] January, Hypertension, benign I10 ; Lumbago with sciatica, unspecified side M54.40 ; Other chronic pain G89.29 and Controlled type 2 diabetes mellitus without complication, without long-term current use of insulin E11.9 [place] [address] [address] January, Lumbar neuritis M54.16 [place] [address] [address] January, [place] [address] [place] [id number] Dec, Lumbago with sciatica, right side M54.41 and Lumbar neuritis M54.16 [place] [address] [address] Dec, Lumbar neuritis M54.16 [place] [address] [address] Dec, Lumbar neuritis M54.16 [place] [address] [address] Nov, Lumbar neuritis M54.16 ; Lumbago with sc iatica, right side M54.41 ; Controlled type 2 diabetes mellitus without complication, without long-term current use of insulin E11.9 and Rash and nonspecific skin eruption R21 [place] [address] [address] Nov, Lumbar neuritis M54.16 and Poison miroslava L2 3.7 [place] [address] [address] Oct, Lumbar neuritis M54.16 ; Coughing R05 an d Mood disorder F39 [place] [address] [address] Sep, Lumbago with sciatica, right side M54.41 [place] [address] [address] Sep, Adjustment disorder with disturbance of emotion F43.29 and Pain management R52 [place] [address] [address] Sep, [place] [address] [address] Sep, [place] [address] [address] Sep, Controlled type 2 diabetes mellitus with out complication, without long-term current use of insulin E11.9 and Lumbago with sciatica, unspecified side M54.40 [place] [address] [address] Aug, Controlled type 2 diabetes mellitus with out complication, without long-term current use of insulin E11.9 ; Pain in right knee M25.561 ; Pain in left knee M25.562 ; Other chronic pain G89.29 ; Lumbago with sciatica, right side M54.41 ; Neck pain M54.2 and Encounter for immunization Z23 [place] [address] [address] Jul, [place] [address] [address] Jul, Controlled type 2 diabetes mellitus with out complication, without long-term current use of insulin E11.9 [place] [address] [address] 17 Jul, 2016 [place] [address] [address] Jul, [place] [address] [address] Jul, Lumbago with sciatica, left side M54.42 ; Lumbago with sciatica, right side M54.41 and Other chronic pain G89.29 [place] [address] [address] Jul, [place] [address] [address] Jul, [place] [address] [address] Jun, [place] [address] [address] Jun, Lumbago with sciatica, right side M54.41 and Other chronic pain G89.29 [place] [address] [address] Jun, Cervicalgia M54.2 ; Lumbago with sciatic a, unspecified side M54.40 and Other chronic pain G89.29 [facility] [address] [place] [id number] [place] [address] 15 May, 2016 Pain in right knee M25.561 ; Pain in lef t knee M25.562 and Other chronic pain G89.29 [facility] [address] [place] [id number] [place] [address] 14 May, 2016 [facility] [address] [address] Apr, Other chronic pain G89.29 and Pain in ri ght knee M25.561 [facility] [address] [address] Apr, Pain in right knee M25.561 [facility] [address] [place] [id number] [place] [address] Mar, [facility] [address] [address] Mar, Mood disorder F39 and Controlled type 2 diabetes mellitus without complication, without long-term current use of insulin E11.9 [facility] [address] [place] [id number] [place] [address] Mar, Pain in right knee M25.561 ; Pain in lef t knee M25.562 ; Other chronic pain G89.29 ; Obstructive sleep apnea syndrome G47.33 ; Mood disorder F39 and Controlled type 2 diabetes mellitus without complication, without long-term current use of insulin E11.9 [facility] [address] [place] [id number] [place] [address] Mar, [facility] [address] [id number] [place] [id number] Feb, Dental examination Z01.20 [facility] [address] [place] [id number] [place] [address] Feb, [facility] [address] [place] [id number] [place] [address] Feb, Osteoarthritis of right knee, unspecifie d osteoarthritis type M17.9 [facility] [address] [address] January, [facility] [address] [id number] January, Dental examination Z01.20 [facility] [address] [address] January, [facility] [address] [id number] January, Dental examination Z01.20 and Caries K02 .9 [facility] [address] [address] Dec, Encounter for other preprocedural examin ation Z01.818 [place] [address] [address] Dec, [facility] [address] [address] Dec, Knee pain M25.569 [facility] [address] [address] 15 Dec, 2015 Pain in right knee M25.561 [place] [address] [address] Dec, [facility] [address] [address] Dec, [facility] [address] [address] Dec, Encounter for immunization Z23 [facility] [address] [address] Dec, [facility] [address] [address] Dec, [facility] [address] [address] Nov, [facility] [address] [address] Nov, Hypertension, benign I10 ; Cervicalgia M 54.2 ; Pain in right knee M25.561 and Pain in left knee M25.562 [place] [address] [address] Oct, [place] [address] [address] Oct, [place] [address] [address] Oct, Osteoarthritis of both knees M17.0 [place] [address] [address] Oct, [place] [address] [address] Oct, Low back pain M54.5 [place] [address] [address] Oct, Low back pain M54.5 ; Sciatica, unspecif ied side M54.30 ; Pain in right knee M25.561 ; Pain in left knee M25.562 ; Pain in right shoulder M25.511 and Pain in left shoulder M25.512 [place] [address] [address] Oct, [place] [address] [address] Sep, Pain in right hip M25.551 [place] [address] [address] Sep, Acute upper respiratory infection, unspe cified J06.9 [place] [address] [address] Aug, Acute upper respiratory infection, unspe cified J06.9 and Other viral agents as the cause of diseases classified elsewhere B97.89 [place] [address] [address] Jul, Arthritis M19.90 [place] [address] [address] Jun, Arthritis M19.90 ; Pain in right hip M25 .551 ; Pain in left hip M25.552 ; Bilateral low back pain with sciatica, sciatica laterality unspecified M54.40 ; Neck pain M54.2 ; Upper back pain M54.9 and Knee pain, unspecified laterality M25.569 [place] [address] [address] May, Osteoarthritis of both knees 715.96 [facility] [address] [address] May, Rash 782.1 [place] [address] [address] Apr, Lumbar strain 847.2 [place] [address] [address] Apr, Rash 782.1 [place] [address] [address] Mar, Rash 782.1 [facility] [address] [address] Feb, Rash 782.1 ; Hemorrhoids 455.6 and Const ipation 564.00 [place] [address] [address] Feb, Osteoarthritis of both knees 715.96 [place] [address] [address] January, [facility] [address] [address] Dec, [facility] [address] [address] 14 Dec, 2014 [facility] [address] [address] Dec, [facility] [address] [address] Nov, [facility] [address] [id number] [place] [address] Nov, 2014 [facility] [address] [id number] [place] [address] Nov, 2014 [facility] [address] [id number] [place] [address] Nov, 2014 [facility] [address] [id number] [place] [address] Nov, [facility] [address] [id number] [place] [address] Nov, [facility] [address] [id number] [place] [address] Oct, 2014 [facility] [address] [id number] [place] [address] Oct, 2014 [facility] [address] [id number] [place] [address] Oct, 2014 [facility] [address] [id number] [place] [address] Oct, 2014 [facility] [address] [id number] [place] [address] Oct, 2014 [facility] [address] [id number] [place] [address] Oct, 2014 [facility] [address] [id number] [place] [address] Oct, 2014 [facility] [address] [id number] [place] [address] Oct, 2014 [facility] [address] [id number] [place] [address] Oct, 2014 [facility] [address] [id number] [place] [address] Oct, 2014 [facility] [address] [id number] [place] [address] Oct, 2014 [facility] [address] [id number] [place] [address] 14 Sep, 2014 [facility] [address] [id number] [place] [address] 14 Sep, 2014 [facility] [address] [id number] [place] [address] Sep, [facility] [address] [id number] [place] [address] Sep, [facility] [address] [id number] [place] [address] Sep, [facility] [address] [id number] [place] [address] Sep, [facility] [address] [id number] [place] [address] Aug, [facility] [address] [id number] [place] [address] 15 Aug, 2014 [facility] [address] [id number] [place] [address] Aug, [facility] [address] [id number] [place] [address] Aug, [facility] [address] [id number] [place] [address] Aug, [facility] [address] [id number] [place] [address] Aug, [facility] [address] [id number] [place] [address] Aug, [facility] [address] [id number] [place] [address] 05 Aug, 2014 [facility] [address] [id number] [place] [address] Aug, [facility] [address] [id number] [place] [address] Aug, [facility] [address] [id number] [place] [address] Jul, [facility] [address] [id number] [place] [address] Jul, [facility] [address] [id number] [place] [address] Jul, [facility] [address] [id number] [place] [address] Jul, [facility] [address] [id number] [place] [address] Jun, [facility] [address] [id number] [place] [address] Jun, [facility] [address] [id number] [place] [address] Jun, [facility] [address] [id number] [place] [address] Jun, [facility] [address] [id number] [place] [address] Jun, [facility] [address] [id number] [place] [address] Jun, [facility] [address] [id number] [place] [address] Jun, [facility] [address] [id number] [place] [address] Jun, [facility] [address] [id number] [place] [address] May, [facility] [address] [id number] [place] [address] 24 May, 2013 [facility] [address] [id number] [place] [address] 19 May, 2013 [facility] [address] [id number] [place] [address] 19 May, 2013 [facility] [address] [id number] [place] [address] 15 Sep, 2013 [facility] [address] [id number] [place] [address] May, [facility] [address] [facility] [id number] [facility] [place] [address] May, [facility] [address] [facility] [id number] [facility] [place] [address] May, [facility] [address] [id number] [facility] [place] [address] Apr, [facility] [address] [facility] [id number] [facility] [place] [address] Apr, [facility] [address] [facility] [id number] [facility] [place] [address] Apr, [facility] [address] [id number] [place] [address] Apr, [facility] [address] [id number] [place] [address] Apr, [facility] [address] [id number] [place] [address] Apr, [facility] [address] [facility] [id number] [place] [address] Apr, [facility] [address] [id number] [place] [address] Apr, [facility] [address] [id number] [place] [address] Apr, [facility] [address] [id number] [place] [address] Apr, [facility] [address] [facility] [id number] [place] [address] Apr, [facility] [address] [id number] [place] [address] Apr, [facility] [address] [facility] [id number] [place] [address] Mar, [facility] [address] [id number] [place] [address] Mar, [facility] [address] [facility] [id number] [place] [address] 05 Mar, 2013 [facility] [address] [facility] [id number] [place] [address] 05 Mar, 2014 [facility] [address] [facility] [id number] [place] [address] Mar, [facility] [address] [id number] [place] [address] 02 Mar, 2014 [facility] [address] [facility] [id number] [place] [address] Feb, [facility] [address] [facility] [id number] [place] [address] Feb, [facility] [address] [id number] [place] [address] Feb, [facility] [address] [id number] [place] [address] Feb, [facility] [address] [id number] [place] [address] Feb, [facility] [address] [facility] [id number] [place] [address] Feb, [facility] [address] [id number] [place] [address] Feb, [facility] [address] [id number] [place] [address] Feb, [facility] [address] [id number] [place] [address] Feb, [facility] [address] [facility] [id number] [place] [address] 05 Feb, 2014 [facility] [address] [id number] [place] [address] Feb, [facility] [address] [id number] [place] [address] 04 Feb, 2014 [facility] [address] [id number] [place] [address] Feb, [facility] [address] [id number] [place] [address] Feb, [facility] [address] [id number] [place] [address] January, [facility] [address] [id number] [place] [address] January, [facility] [address] [id number] [place] [address] January, [facility] [address] [id number] [place] [address] January, [facility] [address] [id number] [place] [address] January, [facility] [address] [id number] [place] [address] January, [facility] [address] [id number] [place] [address] Dec, [facility] [address] [id number] [place] [address] Dec, [facility] [address] [id number] [place] [address] Dec, [facility] [address] [id number] [place] [address] Dec, [facility] [address] [id number] [place] [address] Dec, [facility] [address] [id number] [place] [address] Dec, [facility] [address] [id number] [place] [address] Dec, [facility] [address] [id number] [place] [address] Dec, [facility] [address] [id number] [place] [address] Nov, [facility] [address] [id number] [place] [address] Nov, [facility] [address] [facility] [id number] [facility] [place] [address] Nov, [facility] [address] [facility] [id number] [facility] [place] [address] Nov, [facility] [address] [id number] [facility] [place] [address] Nov, [facility] [address] [id number] [facility] [place] [address] Nov, [facility] [address] [facility] [id number] [facility] [place] [address] Nov, [facility] [address] [id number] [place] [address] Nov, [facility] [address] [id number] [place] [address] Oct, [facility] [address] [id number] [place] [address] Oct, [facility] [address] [id number] [facility] [place] [address] Oct, [facility] [address] [id number] [place] [address] Oct, [facility] [address] [id number] [place] [address] Oct, [facility] [address] [id number] [place] [address] Oct, [facility] [address] [facility] [id number] [place] [address] Oct, [facility] [address] [id number] [place] [address] Oct, [facility] [address] [id number] [place] [address] Oct, [facility] [address] [id number] [place] [address] Oct, [facility] [address] [id number] [place] [address] Sep, [facility] [address] [id number] [place] [address] Sep, [facility] [address] [id number] [place] [address] Sep, [facility] [address] [id number] [place] [address] Sep, [facility] [address] [id number] [place] [address] Sep, [facility] [address] [id number] [place] [address] Sep, [facility] [address] [id number] [place] [address] Aug, [facility] [address] [id number] [place] [address] Aug, [facility] [address] [id number] [place] [address] Aug, [facility] [address] [id number] [place] [address] Aug, [facility] [address] [id number] [place] [address] Aug, [facility] [address] [id number] [place] [address] Aug, [facility] [address] [id number] [place] [address] Aug, [facility] [address] [id number] [place] [address] Aug, [facility] [address] [id number] [place] [address] Jul, [facility] [address] [id number] [place] [address] Jul, [facility] [address] [id number] [place] [address] Jul, [facility] [address] [facility] [id number] [place] [address] Jul, [facility] [address] [facility] [id number] [place] [address] Jul, [facility] [address] [id number] [place] [address] Jul, [facility] [address] [id number] [place] [address] Jun, [facility] [address] [facility] [id number] [facility] [place] [address] Jun, [facility] [address] [id number] [place] [address] Jun, [facility] [address] [id number] [place] [address] May, [facility] [address] [id number] [place] [address] May, [facility] [address] [id number] [place] [address] May, [facility] [address] [id number] [place] [address] Apr, [facility] [address] [id number] [place] [address] Apr, [facility] [address] [id number] [place] [address] Apr, [facility] [address] [facility] [id number] [place] [address] Apr, [facility] [address] [id number] [place] [address] Mar, [facility] [address] [id number] [place] [address] Mar, [facility] [address] [id number] [place] [address] Mar, [facility] [address] [facility] [id number] [place] [address] Mar, [facility] [address] [id number] [place] [address] Feb, [facility] [address] [id number] [place] [address] Feb, [facility] [address] [id number] [place] [address] Feb, [facility] [address] [id number] [place] [address] Feb, [facility] [address] [id number] [place] [address] January, [facility] [address] [id number] [place] [address] January, [facility] [address] [id number] [place] [address] January, [facility] [address] [id number] [place] [address] Nov, [facility] [address] [id number] [place] [address] Nov, [facility] [address] [id number] [place] [address] Oct, [facility] [address] [id number] [place] [address] Oct, [facility] [address] [id number] [place] [address] Oct, [facility] [address] [id number] [place] [address] Oct, [facility] [address] [id number] [place] [address] Sep, [facility] [address] [id number] [place] [address] Sep, [facility] [address] [id number] [place] [address] Sep, [facility] [address] [id number] [place] [address] Aug, [facility] [address] [id number] [place] [address] Aug, [facility] [address] [id number] [place] [address] Aug, [facility] [address] [id number] [place] [address] Aug, [facility] [address] [id number] [place] [address] Aug, [facility] [address] [id number] [place] [address] Aug, [facility] [address] [id number] [place] [address] Jul, [facility] [address] [id number] [place] [address] Jul, [facility] [address] [id number] [place] [address] Jun, [facility] [address] [id number] [place] [address] Jun, [facility] [address] [id number] [place] [address] Jun, [facility] [address] [id number] [place] [address] Apr, [facility] [address] [id number] [place] [address] Apr, [facility] [address] [id number] [place] [address] Mar, [facility] [address] [id number] [place] [address] Mar, [facility] [address] [id number] [place] [address] Mar, [facility] [address] [id number] [place] [address] Mar, [facility] [address] [id number] [place] [address] Feb, [facility] [address] [id number] [place] [address] Feb, [facility] [address] [id number] [place] [address] Feb, [facility] [address] [id number] [place] [address] January, [facility] [address] [id number] [place] [address] January, [facility] [address] [id number] [place] [address] January, [facility] [address] [id number] [place] [address] January, [facility] [address] [id number] [place] [address] Dec, [facility] [address] [id number] [place] [address] Dec, [facility] [address] [id number] [place] [address] Nov, [facility] [address] [id number] [place] [address] Nov, [facility] [address] [id number] [place] [address] Oct, [facility] [address] [id number] [place] [address] Oct, [facility] [address] [id number] [place] [address] Sep, [facility] [address] [id number] [place] [address] Sep, [facility] [address] [id number] [place] [address] Sep, [facility] [address] [id number] [place] [address] Sep, [facility] [address] [id number] [place] [address] Aug, [facility] [address] [id number] [place] [address] 16 Aug, 2011 [facility] [address] [id number] [place] [address] Aug, [facility] [address] [id number] [place] [address] Jul, [facility] [address] [id number] [place] [address] Aug, [facility] [address] [id number] [place] [address] Aug, [facility] [address] [id number] [place] [address] Aug, [facility] [address] [id number] [place] [address] Aug, [facility] [address] [id number] [place] [address] Jul, [facility] [address] [id number] [place] [address] Jul, [facility] [address] [id number] [place] [address] Jul, [facility] [address] [id number] [place] [address] Jun, [facility] [address] [id number] [place] [address] Jun, [facility] [address] [id number] [place] [address] Jun, [facility] [address] [id number] [place] [address] Apr, [facility] [address] [id number] [place] [address] Mar, IMMUNIZATIONS No Known Immunizations SOCIAL HISTORY [...]
--- OUTSIDE RECORDS SUMMARY | 2020-03-18 15:10 | XMS REPORT ---
Author Author George WAYNE Organization [facility] Address [address] [place] [address] Care Team Providers Care Criminal Research Specialist Name Role Phone REYNA WAYNE Unavailable PROBLEMS Type Condition ICD9-CM Code FUN50-IU Code Onset Dates Condition S tatus SNOMED Code Problem Hypertension, benign I10 Active 31426231 Problem Other chronic pain G89.29 Active 8 6560275 Problem Lumbago with sciatica, unspecified side M54.40 Active 452484077 Problem Controlled type 2 diabetes m ellitus without complication, without long- term current use of insulin E11.9 Active 989003024 Problem Lumbago with sciatica, right side M54.41 Active 325542398 Problem Adjustment disorder with disturbance of emotion F4 3.29 Active 44544733 Problem MELE (obstructive sleep apnea) G47.33 Active 05988376 Problem Non morbid obesity E66.9 Active 4 40809243 Problem Hammer toe of left foot M20.42 Active 674630860 Problem Mood disorder F39 Active 969188 05 Problem Deformity of left foot M21.962 Active 248012693 Problem Lumbago with sciatica, left side M54.42 Active 319671964 Problem Erectile dysfunction due to diseases classified elsewhere N52.1 Active 215771031 Problem Obstructive sleep apnea syndrome G47.33 Active 12885834 Problem Type 2 diabetes mellitus wit h diabetic neuropathy, without long-term current use of insulin E11.40 Active 75437 006 Problem Essential hypertension I10 Active 35872791 ALLERGIES No Information ENCOUNTERS Encounter Location Date Diagnosis [facility] [address] [facility] [place] [address] Nov, [facility] [address] [facility] [place] [address] Sep, [facility] [address] [facility] [place] [address] Aug, [facility] [address] [address] Jul, Lumbago with sciatica, unspecified side M54.40 [facility] [address] [address] Jun, Lumbago with sciatica, unspecified side M54.40 [facility] [address] [address] Jun, URI, acute J06.9 [facility] [address] [address] May, Lumbago with sciatica, unspecified side M54.40 [facility] [address] [address] May, [place] [address] [address] May, Type 2 diabetes mellitus with diabetic n europathy, without long-term current use of insulin E11.40 and Hammer toe of left foot M20.42 [facility] [address] [address] May, [facility] [address] [address] May, [facility] [address] [address] May, [facility] [address] [address] Apr, Lumbago with sciatica, unspecified side M54.40 [facility] [address] [address] Apr, [facility] [address] [address] Apr, [facility] [facility] [address] [place] [address] Apr, Hammer toe of left foot M20. 42 ; Chest pain R07.9 ; Preoperative examination Z01.818 and Morbid obesity E66.01 [place] [address] [address] Apr, Morbid obesity E66.01 ; Bronchitis J40 a nd High risk medications (not anticoagulants) long-term use Z79.899 [place] [address] [address] Apr, Lumbago with sciatica, unspecified side M54.40 [place] [address] [address] Apr, [place] [address] [address] Mar, Lumbar neuritis M54.16 and Morbid obesit y E66.01 [place] [address] [address] Mar, [place] [address] [address] Mar, [place] [address] [address] Mar, Lumbago with sciatica, unspecified side M54.40 [place] [address] [address] Mar, Morbid obesity E66.01 ; Coughing R05 ; 2 + pitting edema R60.9 and Controlled type 2 diabetes mellitus without complication, without long-term current use of insulin E11.9 [place] [address] [address] Feb, [place] [address] [address] Feb, Lumbago with sciatica, unspecified side M54.40 [place] [address] [address] Feb, [place] [address] [address] Feb, Controlled type 2 diabetes mellitus with out complication, without long-term current use of insulin E11.9 and Morbid obesity E66.01 [place] [address] [address] January, Deformity of left foot M21.962 [place] [address] [address] January, [place] [address] [address] January, Lumbago with sciatica, unspecified side M54.40 [place] [address] [address] January, [place] [address] [address] January, Lumbago with sciatica, unspecified side M54.40 [place] [address] [address] January, [place] [address] [address] January, Acute right-sided thoracic back pain M54 .6 [place] [address] [address] January, Acute right-sided thoracic back pain M54 .6 [place] [address] [address] January, Chest pain, unspecified type R07.9 ; Mor bid obesity E66.01 and Scabies B86 [place] [address] [address] Dec, Lumbago with sciatica, unspecified side M54.40 [place] [address] [address] Dec, Toenail fungus B35.1 [place] [address] [address] Dec, Toenail fungus B35.1 [place] [address] [address] Dec, Acute right-sided thoracic back pain M54 .6 [place] [address] [address] Dec, Lumbago with sciatica, unspecified side M54.40 [place] [address] [address] Nov, Hammer toe of left foot M20.42 ; Deformi ty of left foot M21.962 and Type 2 diabetes mellitus with diabetic neuropathy, without long-term current use of insulin E11.40 [facility] [address] [facility] [id number] [place] [address] Nov, Acute right-sided thoracic b ack pain M54.6 ; Morbid obesity E66.01 and Rt flank pain R10.9 [place] [address] [address] Nov, Lumbago with sciatica, unspecified side M54.40 [place] [address] [address] Oct, Lumbago with sciatica, unspecified side M54.40 [place] [address] [address] Sep, Lumbago with sciatica, unspecified side M54.40 [place] [address] [address] Sep, [place] [address] [address] Sep, BMI 40.0-44.9, adult Z68.41 ; Lumbago wi th sciatica, left side M54.42 ; Lumbago with sciatica, right side M54.41 and Other chronic pain G89.29 [place] [address] [address] Aug, Lumbago with sciatica, unspecified side M54.40 [place] [address] [address] Aug, Type 2 diabetes mellitus with diabetic n europathy, without long-term current use of insulin E11.40 ; Hammer toe of left foot M20.42 ; Hypertension, benign I10 and Frequent headaches R51 [place] [address] [address] Jul, Lumbago with sciatica, unspecified side M54.40 [place] [address] [address] Jul, [place] [address] [place] [address] Jul, Essential hypertension I10 and Controlle d type 2 diabetes mellitus without complication, without long-term current use of insulin E11.9 [place] [address] [address] Jul, Essential hypertension I10 ; Controlled type 2 diabetes mellitus without complication, without long-term current use of insulin E11.9 and BMI 40.0-44.9, adult Z68.41 [place] [address] [address] Jul, Dysfunction of left eustachian tube H69. 82 [place] [address] [address] Jul, Lumbago with sciatica, unspecified side M54.40 [facility] [address] [place] [id number] [place] [id number] Jun, Dental examination Z01.20 [place] [address] [address] Jun, Lumbago with sciatica, unspecified side M54.40 and Encounter for immunization Z23 [place] [address] [address] Jun, Dysfunction of left eustachian tube H69. 82 [facility] [address] [facility] [place] [id number] Jun, Dental examination Z01.20 [facility] [address] [place] [id number] [place] [address] Jun, Other chronic pain G89.29 [facility] [address] [facility] [place] [id number] Jun, Dental examination Z01.20 [facility] [address] [address] Jun, [place] [address] [address] Jun, Bronchitis J40 ; Dysfunction of left eus tachian tube H69.82 and BMI 45.0-49.9, adult Z68.42 [place] [address] [address] Jun, Lumbago with sciatica, unspecified side M54.40 [place] [address] [address] May, Type 2 diabetes mellitus with diabetic n europathy, without long-term current use of insulin E11.40 and Hypertension, benign I10 [place] [address] [address] May, Lumbago with sciatica, unspecified side M54.40 [facility] [address] [facility] [id number] [address] [place] [address] Apr, [facility] [address] [address] Apr, Controlled type 2 diabetes mellitus with out complication, without long-term current use of insulin E11.9 ; Insect bite (nonvenomous), right ankle, initial encounter S90.561A ; Local infection of the skin and subcutaneous tissue, unspecified L08.9 ; Acute swimmer''s ear of left side H60.332 and BMI 45.0-49.9, adult Z68.42 [place] [address] [address] Apr, Lumbago with sciatica, unspecified side M54.40 [place] [address] [address] Mar, [place] [address] [place] [address] Mar, Lumbago with sciatica, unspecified side M54.40 [place] [address] [address] Feb, Lumbago with sciatica, unspecified side M54.40 [place] [address] [address] Feb, BMI 45.0-49.9, adult Z68.42 and Obstruct jaida sleep apnea syndrome G47.[address] [address] January, Lumbar neuritis M54.16 [place] [address] [address] January, Lumbago with sciatica, unspecified side M54.40 [place] [address] [address] Dec, Controlled type 2 diabetes mellitus with out complication, without long-term current use of insulin E11.9 ; Erectile dysfunction due to diseases classified elsewhere N52.1 and Mood disorder F39 [place] [address] [address] Dec, Lumbago with sciatica, unspecified side M54.40 [place] [address] [address] Dec, Obstructive sleep apnea syndrome G47.33 [place] [address] [place] [address] Nov, Lumbago with sciatica, unspecified side M54.40 ; Hypertension, benign I10 and Mood disorder F39 [place] [address] [address] Nov, Other chronic pain G89.29 [facility] [address] [address] Nov, Lumbago with sciatica, unspecified side M54.40 [facility] [address] [id number] Nov, Dental examination Z01.20 [facility] [address] [address] Oct, [facility] [address] [address] Oct, Lumbago with sciatica, unspecified side M54.40 [facility] [address] [address] Oct, Lumbago with sciatica, unspecified side M54.40 [facility] [address] [address] Oct, [facility] [address] [address] Oct, [facility] [address] [id number] Oct, Dental examination Z01.20 [facility] [address] [address] Oct, [facility] [address] [address] Oct, Pain in right knee M25.561 [facility] [address] [address] Sep, [facility] [address] [address] Sep, Other chronic pain G89.29 [facility] [address] [address] Sep, Lumbago with sciatica, unspecified side M54.40 [place] [address] [address] Sep, [facility] [address] [address] Sep, Viral URI J06.9 and BMI 45.0 -49.9, adult Z68.42 [facility] [address] [address] Aug, Foreign body hand S60.559A a nd BMI 45.0-49.9, adult Z68.42 [place] [address] [address] Aug, [place] [address] [address] Aug, Lumbago with sciatica, unspecified side M54.40 [place] [address] [address] Aug, Vertigo R42 ; Dysfunction of both eustac hian tubes H69.83 ; Low back pain M54.5 and Other chronic pain G89.29 [facility] [place] [address] [address] Aug, Dizziness R42 and Acute bila teral otitis media H66.93 [place] [address] [address] Aug, Lumbago with sciatica, unspecified side M54.40 [facility] [address] [facility] [place] [id number] Jul, Dental examination Z01.20 [place] [address] [address] Jul, [place] [address] [address] Jul, [place] [address] [address] 16 Nov, 2017 Dysfunction of both eustachian tubes H69 .83 [facility] [address] [address] Jul, Controlled type 2 diabetes mellitus with out complication, without long-term current use of insulin E11.9 [facility] [address] [address] Jul, Controlled type 2 diabetes mellitus with out complication, without long-term current use of insulin E11.9 [facility] [address] [facility] [id number] [address] [place] [address] Jul, Dizziness R42 and BMI 40.0-4 4.9, adult Z68.41 [place] [address] [address] Jul, Controlled type 2 diabetes mellitus with out complication, without long-term current use of insulin E11.9 [place] [address] [address] Jul, Lumbago with sciatica, unspecified side M54.40 [facility] [address] [id number] Jul, Dental examination Z01.20 [place] [address] [address] Jun, [facility] [address] [id number] Jun, Dental examination Z01.20 [place] [address] [address] Jun, Controlled type 2 diabetes mellitus with out complication, without long-term current use of insulin E11.9 [place] [address] [address] Jun, Lumbago with sciatica, unspecified side M54.40 [facility] [address] [id number] May, Dental examination Z01.20 [place] [address] [address] May, Controlled type 2 diabetes mellitus with out complication, without long-term current use of insulin E11.9 [facility] [address] [id number] May, Dental examination Z01.20 [facility] [address] [address] 18 May, 2017 Bronchitis J40 ; Dry mouth R68.2 ; Non m orbid obesity E66.9 and Controlled type 2 diabetes mellitus without complication, without long-term current use of insulin E11.9 [facility] [address] [address] 16 May, 2017 Encounter for immunization Z 23 [facility] [address] [address] 07 May, 2017 Lumbago with sciatica, unspecified side M54.40 [facility] [address] [address] 05 May, 2017 [facility] [address] [id number] Apr, Dental examination Z01.20 [facility] [address] [address] Apr, Lumbago with sciatica, unspecified side M54.40 [facility] [address] [address] Mar, Lumbago with sciatica, left side M54.42 [facility] [address] [address] Mar, [facility] [address] [address] Mar, Lumbar neuritis M54.16 [facility] [address] [address] Mar, [facility] [address] [id number] Mar, Dental examination Z01.20 [place] [address] [address] Mar, MELE (obstructive sleep apnea) G47.33 ; N europathy involving both lower extremities G57.93 and Frequent headaches R51 [place] [address] [address] Mar, Lumbago with sciatica, unspecified side M54.40 [place] [address] [place] [address] Feb, Lumbago with sciatica, unspecified side M54.40 and Controlled type 2 diabetes mellitus without complication, without long-term current use of insulin E11.9 [place] [address] [place] [address] January, Hypertension, benign I10 and Bilateral l ow back pain with sciatica, sciatica laterality unspecified M54.40 [place] [address] [address] January, Hypertension, benign I10 ; Lumbago with sciatica, unspecified side M54.40 ; Other chronic pain G89.29 and Controlled type 2 diabetes mellitus without complication, without long-term current use of insulin E11.9 [place] [address] [address] January, Lumbar neuritis M54.16 [place] [address] [address] January, [place] [address] [address] Dec, Lumbago with sciatica, right side M54.41 and Lumbar neuritis M54.16 [place] [address] [address] Dec, Lumbar neuritis M54.16 [place] [address] [address] Dec, Lumbar neuritis M54.16 [place] [address] [address] 16 Nov, 2016 Lumbar neuritis M54.16 ; Lumbago with sc iatica, right side M54.41 ; Controlled type 2 diabetes mellitus without complication, without long-term current use of insulin E11.9 and Rash and nonspecific skin eruption R21 [place] [address] [address] 09 Nov, 2016 Lumbar neuritis M54.16 and Poison miroslava L2 3.7 [place] [address] [address] Oct, Lumbar neuritis M54.16 ; Coughing R05 an d Mood disorder F39 [address] [address] Sep, Lumbago with sciatica, right side M54.[address] [address] Sep, Adjustment disorder with disturbance of emotion F43.29 and Pain management R52 [place] [address] [address] Sep, [address] [address] Sep, [address] [address] Sep, Controlled type 2 diabetes mellitus with out complication, without long-term current use of insulin E11.9 and Lumbago with sciatica, unspecified side M54.40 [place] [address] [address] Aug, Controlled type 2 diabetes mellitus with out complication, without long-term current use of insulin E11.9 ; Pain in right knee M25.561 ; Pain in left knee M25.562 ; Other chronic pain G89.29 ; Lumbago with sciatica, right side M54.41 ; Neck pain M54.2 and Encounter for immunization Z23 [place] [address] [address] Jul, [place] [address] [address] Jul, Controlled type 2 diabetes mellitus with out complication, without long-term current use of insulin E11.9 [place] [address] [place] [id number] [place] [address] 17 Jul, 2016 [facility] [address] [address] Jul, [facility] [address] [address] Jul, Lumbago with sciatica, left side M54.42 ; Lumbago with sciatica, right side M54.41 and Other chronic pain G89.29 [place] [address] [address] Jul, [place] [address] [address] Jul, [facility] [address] [address] Jun, [place] [address] [address] Jun, Lumbago with sciatica, right side M54.41 and Other chronic pain G89.29 [place] [address] [address] Jun, Cervicalgia M54.2 ; Lumbago with sciatic a, unspecified side M54.40 and Other chronic pain G89.29 [place] [address] [address] 15 May, 2016 Pain in right knee M25.561 ; Pain in lef t knee M25.562 and Other chronic pain G89.29 [place] [address] [address] 14 May, 2016 [place] [address] [address] Apr, Other chronic pain G89.29 and Pain in ri ght knee M25.561 [facility] [address] [address] Apr, Pain in right knee M25.561 [facility] [address] [address] Mar, [place] [address] [address] Mar, Mood disorder F39 and Controlled type 2 diabetes mellitus without complication, without long-term current use of insulin E11.9 [place] [address] [address] Mar, Pain in right knee M25.561 ; Pain in lef t knee M25.562 ; Other chronic pain G89.29 ; Obstructive sleep apnea syndrome G47.33 ; Mood disorder F39 and Controlled type 2 diabetes mellitus without complication, without long-term current use of insulin E11.9 [place] [address] [address] Mar, [facility] [address] [id number] Feb, Dental examination Z01.20 [place] [address] [address] Feb, [place] [address] [address] Feb, Osteoarthritis of right knee, unspecifie d osteoarthritis type M17.9 [place] [address] [address] January, [facility] [address] [id number] January, Dental examination Z01.20 [facility] [address] [address] January, [facility] [address] [id number] January, Dental examination Z01.20 and Caries K02 .9 [facility] [address] [address] 26 Dec, 2015 Encounter for other preprocedural examin ation Z01.818 [facility] [address] [address] Dec, [facility] [address] [address] Dec, Knee pain M25.569 [facility] [address] [address] 15 Dec, 2015 Pain in right knee M25.561 [facility] [address] [address] Dec, [facility] [address] [address] Dec, [facility] [address] [address] Dec, Encounter for immunization Z23 [facility] [address] [address] Dec, [facility] [address] [address] Dec, [facility] [address] [address] Nov, [facility] [address] [address] Nov, Hypertension, benign I10 ; Cervicalgia M 54.2 ; Pain in right knee M25.561 and Pain in left knee M25.562 [facility] [address] [address] Oct, [facility] [address] [address] Oct, [facility] [address] [address] Oct, Osteoarthritis of both knees M17.0 [place] [address] [address] Oct, [place] [address] [address] Oct, Low back pain M54.5 [place] [address] [address] Oct, Low back pain M54.5 ; Sciatica, unspecif ied side M54.30 ; Pain in right knee M25.561 ; Pain in left knee M25.562 ; Pain in right shoulder M25.511 and Pain in left shoulder M25.512 [place] [address] [address] Oct, [place] [address] [address] Sep, Pain in right hip M25.551 [place] [address] [address] Sep, Acute upper respiratory infection, unspe cified J06.[address] [address] Aug, Acute upper respiratory infection, unspe cified J06.9 and Other viral agents as the cause of diseases classified elsewhere B97.[address] [address] Jul, Arthritis M19.[address] [address] Jun, Arthritis M19.90 ; Pain in right hip M25 .551 ; Pain in left hip M25.552 ; Bilateral low back pain with sciatica, sciatica laterality unspecified M54.40 ; Neck pain M54.2 ; Upper back pain M54.9 and Knee pain, unspecified laterality M25.569 [place] [address] [address] May, Osteoarthritis of both knees 715.96 [facility] [address] [place] [id number] [place] [address] May, Rash 782.1 [facility] [address] [address] Apr, Lumbar strain 847.2 [facility] [address] [address] Apr, Rash 782.1 [facility] [address] [address] Mar, Rash 782.1 [facility] [address] [address] [address] Feb, Rash 782.1 ; Hemorrhoids 455.6 and Const ipation 564.00 [facility] [address] [address] Feb, Osteoarthritis of both knees 715.96 [facility] [address] [address] January, [facility] [address] [address] 28 Dec, 2014 [facility] [address] [address] Dec, [facility] [address] [address] Dec, [facility] [address] [address] 18 Nov, 2014 [facility] [id number] [place] [address] Nov, [facility] [address] [address] Nov, [facility] [id number] [place] [address] Nov, [facility] [address] [address] Nov, [facility] [address] [id number] [place] [address] Nov, [facility] [address] [id number] [place] [address] Oct, [facility] [address] [id number] [place] [address] Oct, [facility] [address] [id number] [place] [address] Oct, [facility] [address] [id number] [place] [address] Oct, [facility] [address] [id number] [place] [address] Oct, [facility] [address] [id number] [place] [address] Oct, [facility] [address] [id number] [place] [address] Oct, [facility] [address] [id number] [place] [address] Oct, [facility] [address] [id number] [place] [address] Oct, [facility] [address] [id number] [place] [address] Oct, [facility] [address] [id number] [place] [address] Oct, [facility] [address] [id number] [place] [address] Sep, [facility] [address] [id number] [place] [address] Sep, [facility] [address] [id number] [place] [address] Sep, [facility] [address] [id number] [place] [address] Sep, [facility] [address] [id number] [place] [address] Sep, [facility] [address] [id number] [place] [address] Sep, [facility] [address] [id number] [place] [address] Aug, [facility] [address] [id number] [place] [address] Aug, [facility] [address] [id number] [place] [address] Aug, [facility] [address] [id number] [place] [address] Aug, [facility] [address] [id number] [place] [address] Aug, [facility] [address] [id number] [place] [address] Aug, [facility] [address] [id number] [place] [address] Aug, [facility] [address] [id number] [place] [address] Aug, [facility] [address] [id number] [place] [address] Aug, [facility] [address] [id number] [place] [address] Aug, [facility] [address] [id number] [place] [address] Jul, [facility] [address] [id number] [place] [address] Jul, [facility] [id number] [place] [address] Jul, [facility] [address] [id number] [place] [address] Jul, [facility] [address] [id number] [place] [address] Jun, [facility] [address] [id number] [place] [address] Jun, [facility] [address] [id number] [place] [address] Jun, [facility] [address] [id number] [place] [address] Jun, [facility] [address] [id number] [place] [address] Jun, [facility] [address] [facility] [id number] [place] [address] Jun, [facility] [address] [id number] [place] [address] Jun, [facility] [address] [id number] [place] [address] Jun, [facility] [address] [id number] [place] [address] 24 May, 2013 [facility] [address] [id number] [place] [address] 24 May, 2013 [facility] [address] [id number] [place] [address] 19 May, 2013 [facility] [address] [id number] [place] [address] 19 May, 2013 [facility] [address] [id number] [place] [address] 15 May, 2013 [facility] [address] [id number] [place] [address] 15 May, 2013 [facility] [address] [id number] [place] [address] 15 May, 2013 [facility] [address] [id number] [place] [address] 15 May, 2013 [facility] [address] [id number] [place] [address] Apr, 2013 [facility] [address] [id number] [place] [address] Apr, [facility] [address] [id number] [place] [address] Apr, [facility] [address] [facility] [id number] [place] [address] Apr, [facility] [address] [id number] [place] [address] Apr, [facility] [address] [id number] [place] [address] Apr, [facility] [address] [facility] [id number] [place] [address] Apr, [facility] [address] [id number] [place] [address] Apr, [facility] [address] [id number] [place] [address] Apr, [facility] [address] [id number] [place] [address] Apr, [facility] [address] [id number] [place] [address] Apr, [facility] [address] [id number] [place] [address] Apr, [facility] [address] [id number] [place] [address] Mar, [facility] [address] [id number] [place] [address] Mar, [facility] [address] [id number] [place] [address] Mar, [facility] [address] [id number] [place] [address] Mar, [facility] [address] [id number] [place] [address] Mar, [facility] [address] [id number] [place] [address] Mar, [facility] [address] [facility] [id number] [place] [address] 18 Feb, 2014 [facility] [address] [facility] [id number] [place] [address] Feb, [facility] [address] [facility] [id number] [place] [address] Feb, [facility] [address] [id number] [place] [address] Feb, [facility] [address] [facility] [id number] [place] [address] Feb, [facility] [address] [facility] [id number] [place] [address] Feb, [facility] [address] [id number] [place] [address] Feb, [facility] [address] [id number] [place] [address] Feb, [facility] [address] [id number] [place] [address] Feb, [facility] [address] [id number] [place] [address] Feb, [facility] [address] [id number] [place] [address] Feb, [facility] [address] [id number] [place] [address] Feb, [facility] [address] [id number] [place] [address] Feb, [facility] [address] [facility] [id number] [place] [address] Feb, [facility] [address] [id number] [place] [address] January, [facility] [address] [id number] [place] [address] January, [facility] [address] [id number] [place] [address] January, [facility] [address] [id number] [place] [address] January, [facility] [address] [id number] [place] [address] January, [facility] [address] [id number] [place] [address] January, [facility] [address] [id number] [place] [address] Dec, [facility] [address] [facility] [id number] [place] [address] Dec, [facility] [address] [id number] [place] [address] Dec, [facility] [address] [id number] [place] [address] Dec, [facility] [address] [id number] [place] [address] Dec, [facility] [address] [id number] [place] [address] Dec, [facility] [address] [id number] [place] [address] Dec, [facility] [address] [id number] [place] [address] Dec, [facility] [address] [id number] [place] [address] Nov, [facility] [address] [id number] [place] [address] Nov, [facility] [address] [id number] [place] [address] Nov, [facility] [address] [id number] [place] [address] Nov, [facility] [address] [id number] [place] [address] Nov, [facility] [address] [id number] [place] [address] Nov, [facility] [address] [facility] [id number] [place] [address] Nov, [facility] [address] [facility] [id number] [place] [address] Nov, [facility] [address] [id number] [place] [address] Oct, [facility] [address] [facility] [id number] [place] [address] Oct, [facility] [address] [id number] [place] [address] Oct, [facility] [address] [id number] [place] [address] Oct, [facility] [address] [id number] [place] [address] Oct, [facility] [address] [id number] [place] [address] Oct, [facility] [address] [id number] [place] [address] Oct, [facility] [address] [id number] [place] [address] Oct, [facility] [address] [id number] [place] [address] Oct, [facility] [address] [id number] [place] [address] Oct, [facility] [address] [id number] [place] [address] Sep, [facility] [address] [id number] [place] [address] Sep, [facility] [address] [id number] [place] [address] Sep, [facility] [address] [id number] [place] [address] Sep, [facility] [address] [id number] [place] [address] Sep, [facility] [address] [id number] [place] [address] Sep, [facility] [address] [id number] [place] [address] Aug, [facility] [address] [id number] [place] [address] Aug, [facility] [address] [id number] [place] [address] Aug, [facility] [address] [id number] [place] [address] Aug, [facility] [address] [id number] [place] [address] Aug, [facility] [address] [id number] [place] [address] Aug, [facility] [address] [id number] [place] [address] Aug, [facility] [address] [id number] [place] [address] Aug, [facility] [address] [id number] [place] [address] Jul, [facility] [address] [id number] [place] [address] Jul, [facility] [address] [id number] [place] [address] Jul, [facility] [address] [id number] [place] [address] Jul, [facility] [address] [id number] [place] [address] Jul, [facility] [address] [id number] [place] [address] Jul, [facility] [address] [id number] [place] [address] Jun, [facility] [address] [facility] [id number] [place] [address] Jun, [facility] [address] [facility] [id number] [place] [address] Jun, [facility] [address] [id number] [place] [address] May, [facility] [address] [id number] [place] [address] May, [facility] [address] [facility] [id number] [place] [address] May, [facility] [address] [id number] [place] [address] Apr, [facility] [address] [id number] [place] [address] Apr, [facility] [address] [id number] [place] [address] Apr, [facility] [address] [id number] [place] [address] Apr, [facility] [address] [id number] [place] [address] Mar, [facility] [address] [id number] [place] [address] Mar, [facility] [address] [id number] [place] [address] Mar, [facility] [address] [id number] [place] [address] Mar, [facility] [address] [id number] [place] [address] Feb, [facility] [address] [id number] [place] [address] Feb, [facility] [address] [id number] [place] [address] Feb, [facility] [address] [id number] [place] [address] Feb, [facility] [address] [id number] [place] [address] January, [facility] [address] [id number] [place] [address] January, [facility] [address] [id number] [place] [address] January, [facility] [address] [id number] [place] [address] Nov, [facility] [address] [id number] [place] [address] Nov, [facility] [address] [id number] [place] [address] Oct, [facility] [address] [id number] [place] [address] Oct, [facility] [address] [id number] [place] [address] Oct, [facility] [address] [id number] [place] [address] Oct, [facility] [address] [id number] [place] [address] Sep, [facility] [address] [id number] [place] [address] Sep, [facility] [address] [id number] [place] [address] Sep, [facility] [address] [id number] [place] [address] Aug, [facility] [address] [id number] [place] [address] Aug, [facility] [address] [id number] [place] [address] Aug, [facility] [address] [id number] [place] [address] Aug, [facility] [address] [id number] [place] [address] Aug, [facility] [address] [id number] [place] [address] Aug, [facility] [address] [id number] [place] [address] Jul, [facility] [address] [id number] [place] [address] Jul, [facility] [address] [id number] [place] [address] Jun, [facility] [address] [id number] [place] [address] Jun, [facility] [address] [id number] [place] [address] Jun, [facility] [address] [id number] [place] [address] Apr, [facility] [address] [id number] [place] [address] Apr, [facility] [address] [id number] [place] [address] Mar, [facility] [address] [id number] [place] [address] Mar, [facility] [address] [id number] [place] [address] Mar, [facility] [address] [id number] [place] [address] Mar, [facility] [address] [id number] [place] [address] Feb, [facility] [address] [id number] [place] [address] Feb, [facility] [address] [id number] [place] [address] Feb, [facility] [address] [id number] [place] [address] January, [facility] [address] [id number] [place] [address] January, [facility] [address] [id number] [place] [address] January, [facility] [address] [id number] [place] [address] January, [facility] [address] [id number] [place] [address] Dec, [facility] [address] [id number] [place] [address] Dec, [facility] [address] [id number] [place] [address] Nov, [facility] [address] [id number] [place] [address] Nov, [facility] [address] [id number] [place] [address] Oct, [facility] [address] [id number] [place] [address] Oct, [facility] [address] [id number] [place] [address] Sep, [facility] [address] [id number] [place] [address] Sep, [facility] [address] [id number] [place] [address] Sep, [facility] [address] [id number] [place] [address] Sep, [facility] [id number] [place] [address] Aug, [facility] [address] [id number] [place] [address] Aug, [facility] [id number] [place] [address] Aug, [facility] [address] [id number] [place] [address] Jul, [facility] [address] [id number] [place] [address] Aug, [facility] [address] [id number] [place] [address] Aug, [facility] [address] [id number] [place] [address] Aug, [facility] [address] [id number] [place] [address] Aug, [facility] [id number] [place] [address] Jul, [facility] [id number] [place] [address] Jul, [facility] [id number] [place] [address] Jul, [facility] [address] [id number] [place] [address] Jun, [facility] [id number] [place] [address] Jun, [facility] [id number] [place] [address] Jun, [facility] [address] [id number] [place] [address] Apr, [facility] [address] [id number] [place] [address] Mar, IMMUNIZATIONS No Known Immunizations SOCIAL HISTORY [...]
--- OUTSIDE RECORDS SUMMARY | 2020-03-18 15:10 | XMS REPORT ---
Author Author George WAYNE Organization [facility] Address [address] [place] [address] Care Team Providers Care Sorting Cows Worker Name Role Phone REYNA WAYNE Unavailable PROBLEMS Type Condition ICD9-CM Code [id number] Code Onset Dates Condition S tatus SNOMED Code Problem Hypertension, benign I10 Active 51390407 Problem Other chronic pain G89.29 Active 8 5878112 Problem Lumbago with sciatica, unspecified side M54.40 Active 452114290 Problem Controlled type 2 diabetes m ellitus without complication, without long- term current use of insulin E11.9 Active 194000120 Problem Lumbago with sciatica, right side M54.41 Active 277548713 Problem Adjustment disorder with disturbance of emotion F4 3.29 Active 08693915 Problem MELE (obstructive sleep apnea) G47.33 Active 15025700 Problem Non morbid obesity E66.9 Active 4 39506245 Problem Hammer toe of left foot M20.42 Active 787509055 Problem Mood disorder F39 Active 425446 05 Problem Deformity of left foot M21.962 Active 671428770 Problem Lumbago with sciatica, left side M54.42 Active 216267339 Problem Erectile dysfunction due to diseases classified elsewhere N52.1 Active 626413814 Problem Obstructive sleep apnea syndrome G47.33 Active 54525351 Problem Type 2 diabetes mellitus wit h diabetic neuropathy, without long-term current use of insulin E11.40 Active 57226 006 Problem Essential hypertension I10 Active 38115132 ALLERGIES No Information ENCOUNTERS Encounter Location Date Diagnosis [facility] [id number] [place] [address] Nov, Type 2 diabetes mellitus with diabetic n europathy, without long-term current use of insulin E11.40 ; Family history of prostate cancer Z80.42 and Prostate cancer screening Z12.5 [facility] [id number] [place] [address] Nov, [facility] [address] [address] Sep, [facility] [address] [address] Aug, [facility] [address] [address] Jul, Lumbago with sciatica, unspecified side M54.40 [facility] [address] [address] Jun, Lumbago with sciatica, unspecified side M54.40 [facility] [address] [address] Jun, URI, acute J06.9 [facility] [address] [address] May, Lumbago with sciatica, unspecified side M54.40 [facility] [address] [address] May, [facility] [address] [address] May, Type 2 diabetes mellitus with diabetic n europathy, without long-term current use of insulin E11.40 and Hammer toe of left foot M20.42 [facility] [address] [address] May, [facility] [address] [address] May, [facility] [address] [address] May, [facility] [address] [address] Apr, Lumbago with sciatica, unspecified side M54.40 [facility] [address] [address] Apr, [facility] [id number] [place] [address] Apr, [address] [place] [address] Apr, Hammer toe of left foot M20. 42 ; Chest pain R07.9 ; Preoperative examination Z01.818 and Morbid obesity E66.01 [place] [address] [address] Apr, Morbid obesity E66.01 ; Bronchitis J40 a nd High risk medications (not anticoagulants) long-term use Z79.899 [place] [address] [address] Apr, Lumbago with sciatica, unspecified side M54.40 [place] [address] [address] Apr, [place] [address] [address] Mar, Lumbar neuritis M54.16 and Morbid obesit y E66.01 [place] [address] [address] Mar, [place] [address] [address] Mar, [place] [address] [address] Mar, Lumbago with sciatica, unspecified side M54.40 [place] [address] [address] Mar, Morbid obesity E66.01 ; Coughing R05 ; 2 + pitting edema R60.9 and Controlled type 2 diabetes mellitus without complication, without long-term current use of insulin E11.9 [place] [address] [address] Feb, [place] [address] [address] Feb, Lumbago with sciatica, unspecified side M54.40 [place] [address] [address] Feb, [place] [address] [address] Feb, Controlled type 2 diabetes mellitus with out complication, without long-term current use of insulin E11.9 and Morbid obesity E66.01 [place] [address] [address] January, Deformity of left foot M21.962 [place] [address] [address] January, [place] [address] [address] January, Lumbago with sciatica, unspecified side M54.40 [place] [address] [address] January, [place] [address] [address] January, Lumbago with sciatica, unspecified side M54.40 [place] [address] [address] January, [place] [address] [address] January, Acute right-sided thoracic back pain M54 .6 [place] [address] [address] January, Acute right-sided thoracic back pain M54 .6 [place] [address] [address] January, Chest pain, unspecified type R07.9 ; Mor bid obesity E66.01 and Scabies B86 [place] [address] [address] Dec, Lumbago with sciatica, unspecified side M54.40 [place] [address] [address] Dec, Toenail fungus B35.1 [place] [address] [address] Dec, Toenail fungus B35.1 [place] [address] [address] Dec, Acute right-sided thoracic back pain M54 .6 [place] [address] [address] Dec, Lumbago with sciatica, unspecified side M54.40 [place] [address] [address] Nov, Hammer toe of left foot M20.42 ; Deformi ty of left foot M21.962 and Type 2 diabetes mellitus with diabetic neuropathy, without long-term current use of insulin E11.40 [facility]ALK IN [facility] [address] [facility] [id number] [place] [address] Nov, Acute right-sided thoracic b ack pain M54.6 ; Morbid obesity E66.01 and Rt flank pain R10.9 [place] [address] [address] Nov, Lumbago with sciatica, unspecified side M54.40 [place] [address] [address] Oct, Lumbago with sciatica, unspecified side M54.40 [place] [address] [address] Sep, Lumbago with sciatica, unspecified side M54.40 [place] [address] [address] Sep, [place] [address] [address] Sep, BMI 40.0-44.9, adult Z68.41 ; Lumbago wi th sciatica, left side M54.42 ; Lumbago with sciatica, right side M54.41 and Other chronic pain G89.29 [place] [address] [id number] Aug, Lumbago with sciatica, unspecified side M54.40 [place] [address] [address] Aug, Type 2 diabetes mellitus with diabetic n europathy, without long-term current use of insulin E11.40 ; Hammer toe of left foot M20.42 ; Hypertension, benign I10 and Frequent headaches R51 [place] [address] [address] [address] Jul, Lumbago with sciatica, unspecified side M54.40 [place] [address] [address] Jul, [place] [address] [address] Jul, Essential hypertension I10 and Controlle d type 2 diabetes mellitus without complication, without long-term current use of insulin E11.9 [place] [address] [address] Jul, Essential hypertension I10 ; Controlled type 2 diabetes mellitus without complication, without long-term current use of insulin E11.9 and BMI 40.0-44.9, adult Z68.41 [place] [address] [address] Jul, Dysfunction of left eustachian tube H69. 82 [place] [address] [address] Jul, Lumbago with sciatica, unspecified side M54.40 [facility] [address] [facility] [place] [id number] Jun, Dental examination Z01.20 [place] [address] [address] Jun, Lumbago with sciatica, unspecified side M54.40 and Encounter for immunization Z23 [place] [id number] [place] [address] Jun, Dysfunction of left eustachian tube H69. 82 [facility] [id number] [place] [id number] Jun, Dental examination Z01.20 [facility] [id number] [place] [address] Jun, Other chronic pain G89.29 [facility] [address] [facility] [place] [id number] Jun, Dental examination Z01.20 [place] [address] [address] Jun, [place] [address] [address] Jun, Bronchitis J40 ; Dysfunction of left eus tachian tube H69.82 and BMI 45.0-49.9, adult Z68.42 [place] [address] [address] Jun, Lumbago with sciatica, unspecified side M54.40 [facility] [address] [address] May, Type 2 diabetes mellitus with diabetic n europathy, without long-term current use of insulin E11.40 and Hypertension, benign I10 [place] [address] [address] May, Lumbago with sciatica, unspecified side M54.40 [facility] [address] [facility] [id number] [address] [place] [address] Apr, [facility] [id number] [place] [address] Apr, Controlled type 2 diabetes mellitus with out complication, without long-term current use of insulin E11.9 ; Insect bite (nonvenomous), right ankle, initial encounter S90.561A ; Local infection of the skin and subcutaneous tissue, unspecified L08.9 ; Acute swimmer''s ear of left side H60.332 and BMI 45.0-49.9, adult Z68.42 [place] [address] [address] Apr, Lumbago with sciatica, unspecified side M54.40 [place] [address] [address] Mar, [place] [address] [address] Mar, Lumbago with sciatica, unspecified side M54.40 [place] [address] [address] Feb, Lumbago with sciatica, unspecified side M54.40 [place] [address] [address] Feb, BMI 45.0-49.9, adult Z68.42 and Obstruct jaida sleep apnea syndrome G47.33 [place] [address] [address] January, Lumbar neuritis M54.16 [place] [address] [address] January, Lumbago with sciatica, unspecified side M54.40 [place] [address] [address] Dec, Controlled type 2 diabetes mellitus with out complication, without long-term current use of insulin E11.9 ; Erectile dysfunction due to diseases classified elsewhere N52.1 and Mood disorder F39 [place] [address] [address] Dec, Lumbago with sciatica, unspecified side M54.40 [place] [address] [address] Dec, Obstructive sleep apnea syndrome G47.33 [facility] [address] [address] Nov, Lumbago with sciatica, unspecified side M54.40 ; Hypertension, benign I10 and Mood disorder F39 [facility] [address] [address] Nov, Other chronic pain G89.29 [facility] [address] [address] Nov, Lumbago with sciatica, unspecified side M54.40 [facility] [address] [id number] Nov, Dental examination Z01.20 [facility] [address] [address] Oct, [facility] [address] [address] Oct, Lumbago with sciatica, unspecified side M54.40 [facility] [address] [address] Oct, Lumbago with sciatica, unspecified side M54.40 [facility] [address] [address] Oct, [facility] [address] [address] Oct, [facility] [address] [id number] Oct, Dental examination Z01.20 [facility] [address] [address] Oct, [facility] [address] [address] Oct, Pain in right knee M25.561 [facility] [address] [address] Sep, [facility] [address] [address] Sep, Other chronic pain G89.29 [place] [address] [address] Sep, Lumbago with sciatica, unspecified side M54.40 [place] [address] [address] Sep, [facility] WALK IN [facility] [address] [address] Sep, Viral URI J06.9 and BMI 45.0 -49.9, adult Z68.42 [facility] WALK IN [address] [address] Aug, Foreign body hand S60.559A a nd BMI 45.0-49.9, adult Z68.42 [place] [address] [address] Aug, [place] [address] [address] Aug, Lumbago with sciatica, unspecified side M54.40 [place] [address] [address] Aug, Vertigo R42 ; Dysfunction of both eustac hian tubes H69.83 ; Low back pain M54.5 and Other chronic pain G89.29 [facility] WALK IN [place] [id number] [place] [address] Aug, Dizziness R42 and Acute bila teral otitis media H66.93 [place] [address] [address] Aug, Lumbago with sciatica, unspecified side M54.40 [facility] [address] [facility] [place] [id number] Jul, Dental examination Z01.20 [place] [address] [address] Jul, [facility] [address] [address] Jul, [facility] [address] [address] Jul, Dysfunction of both eustachian tubes H69 .83 [facility] [address] [address] Jul, Controlled type 2 diabetes mellitus with out complication, without long-term current use of insulin E11.9 [facility] [address] [address] Jul, Controlled type 2 diabetes mellitus with out complication, without long-term current use of insulin E11.9 [facility] [address] [facility] [id number] [place], [place] [address] Jul, Dizziness R42 and BMI 40.0-4 4.9, adult Z68.41 [place] [address] [address] Jul, Controlled type 2 diabetes mellitus with out complication, without long-term current use of insulin E11.9 [place] [address] [address] Jul, Lumbago with sciatica, unspecified side M54.40 [facility] [address] [id number] Jul, Dental examination Z01.20 [facility] [address] [address] Jun, [facility] [address] [id number] Jun, Dental examination Z01.20 [place] [address] [address] Jun, Controlled type 2 diabetes mellitus with out complication, without long-term current use of insulin E11.9 [place] [address] [address] Jun, Lumbago with sciatica, unspecified side M54.40 [facility] [address] [id number] May, Dental examination Z01.20 [facility] [address] [address] May, Controlled type 2 diabetes mellitus with out complication, without long-term current use of insulin E11.9 [facility] [address] [id number] May, Dental examination Z01.20 [facility] [address] [address] 18 May, 2017 Bronchitis J40 ; Dry mouth R68.2 ; Non m orbid obesity E66.9 and Controlled type 2 diabetes mellitus without complication, without long-term current use of insulin E11.9 [facility] [address] [address] 16 May, 2017 Encounter for immunization Z 23 [facility] [address] [address] 07 May, 2017 Lumbago with sciatica, unspecified side M54.40 [facility] [address] [address] May, [facility] [address] [id number] Apr, Dental examination Z01.20 [facility] [address] [address] Apr, Lumbago with sciatica, unspecified side M54.40 [facility] [id number] [place] [address] Mar, Lumbago with sciatica, left side M54.42 [facility] [address] [address] Mar, [facility] [address] [address] Mar, Lumbar neuritis M54.16 [facility] [id number] [place] [address] Mar, [facility] [address] [facility] [place] [id number] Mar, Dental examination Z01.20 [facility] [address] [address] Mar, MELE (obstructive sleep apnea) G47.33 ; N europathy involving both lower extremities G57.93 and Frequent headaches R51 [place] [address] [address] Mar, Lumbago with sciatica, unspecified side M54.40 [place] [address] [address] Feb, Lumbago with sciatica, unspecified side M54.40 and Controlled type 2 diabetes mellitus without complication, without long-term current use of insulin E11.9 [place] [address] [address] January, Hypertension, benign I10 and Bilateral l ow back pain with sciatica, sciatica laterality unspecified M54.40 [place] [address] [address] January, Hypertension, benign I10 ; Lumbago with sciatica, unspecified side M54.40 ; Other chronic pain G89.29 and Controlled type 2 diabetes mellitus without complication, without long-term current use of insulin E11.9 [place] [address] [address] January, Lumbar neuritis M54.16 [place] [address] [address] January, [place] [address] [address] Dec, Lumbago with sciatica, right side M54.41 and Lumbar neuritis M54.16 [place] [address] [address] Dec, Lumbar neuritis M54.16 [place] [address] [address] Dec, Lumbar neuritis M54.16 [place] [address] [address] Nov, Lumbar neuritis M54.16 ; Lumbago with sc iatica, right side M54.41 ; Controlled type 2 diabetes mellitus without complication, without long-term current use of insulin E11.9 and Rash and nonspecific skin eruption R21 [place] [address] [address] 09 Nov, 2016 Lumbar neuritis M54.16 and Poison miroslava L2 3.7 [place] [address] [address] 16 Oct, 2016 Lumbar neuritis M54.16 ; Coughing R05 an d Mood disorder F39 [place] [address] [address] Sep, Lumbago with sciatica, right side M54.41 [place] [address] [address] Sep, Adjustment disorder with disturbance of emotion F43.29 and Pain management R52 [place] [address] [address] Sep, [place] [address] [address] Sep, [place] [address] [address] Sep, Controlled type 2 diabetes mellitus with out complication, without long-term current use of insulin E11.9 and Lumbago with sciatica, unspecified side M54.40 [place] [address] [address] Aug, Controlled type 2 diabetes mellitus with out complication, without long-term current use of insulin E11.9 ; Pain in right knee M25.561 ; Pain in left knee M25.562 ; Other chronic pain G89.29 ; Lumbago with sciatica, right side M54.41 ; Neck pain M54.2 and Encounter for immunization Z23 [facility] [address] [address] Jul, [facility] [address] [address] Jul, Controlled type 2 diabetes mellitus with out complication, without long-term current use of insulin E11.9 [facility] [address] [address] Jul, [facility] [address] [address] Jul, [facility] [address] [address] Jul, Lumbago with sciatica, left side M54.42 ; Lumbago with sciatica, right side M54.41 and Other chronic pain G89.29 [facility] [address] [address] Jul, [facility] [address] [address] Jul, [facility] [address] [address] Jun, [facility] [address] [address] Jun, Lumbago with sciatica, right side M54.41 and Other chronic pain G89.29 [facility] [address] [address] Jun, Cervicalgia M54.2 ; Lumbago with sciatic a, unspecified side M54.40 and Other chronic pain G89.29 [facility] [address] [address] 15 May, 2016 Pain in right knee M25.561 ; Pain in lef t knee M25.562 and Other chronic pain G89.29 [facility] [address] [address] May, [place] [address] [address] Apr, Other chronic pain G89.29 and Pain in ri ght knee M25.561 [place] [address] [address] Apr, Pain in right knee M25.561 [place] [address] [address] Mar, [place] [address] [address] Mar, Mood disorder F39 and Controlled type 2 diabetes mellitus without complication, without long-term current use of insulin E11.[address] [address] Mar, Pain in right knee M25.561 ; Pain in lef t knee M25.562 ; Other chronic pain G89.29 ; Obstructive sleep apnea syndrome G47.33 ; Mood disorder F39 and Controlled type 2 diabetes mellitus without complication, without long-term current use of insulin E11.9 [place] [address] [address] Mar, [facility] [address] [id number] Feb, Dental examination Z01.20 [place] [address] [address] Feb, [address] [address] Feb, Osteoarthritis of right knee, unspecifie d osteoarthritis type M17.9 [place] [address] [address] January, [facility] [address] [id number] January, Dental examination Z01.20 [facility] [address] [id number] [place] [address] January, [facility] [address] [id number] [place], [place] [id number] January, Dental examination Z01.20 and Caries K02 .9 [facility] [address] [place] [id number] [place] [address] Dec, Encounter for other preprocedural examin ation Z01.818 [facility] [address] [place] [id number] [place] [address] Dec, [facility] [address] [address] Dec, Knee pain M25.569 [facility] [address] [place] [address] [id number] [place] [address] Dec, Pain in right knee M25.561 [facility] [address] [address] Dec, [facility] [address] [place] [id number] [place] [address] Dec, [facility] [address] [address] Dec, Encounter for immunization Z23 [facility] [address] [address] [id number] [place] [address] Dec, [facility] [address] [address] Dec, [facility] [address] [place] [id number] [place] [address] Nov, [facility] [address] [address] Nov, Hypertension, benign I10 ; Cervicalgia M 54.2 ; Pain in right knee M25.561 and Pain in left knee M25.562 [facility] [id number] [place] [address] Oct, [place] [address] [address] Oct, [place] [address] [address] Oct, Osteoarthritis of both knees M17.0 [place] [address] [address] Oct, [place] [address] [address] Oct, Low back pain M54.[address] [address] Oct, Low back pain M54.5 ; Sciatica, unspecif ied side M54.30 ; Pain in right knee M25.561 ; Pain in left knee M25.562 ; Pain in right shoulder M25.511 and Pain in left shoulder M25.512 [place] [address] [address] Oct, [address] [address] Sep, Pain in right hip M25.[address] [address] Sep, Acute upper respiratory infection, unspe cified J06.[address] [address] Aug, Acute upper respiratory infection, unspe cified J06.9 and Other viral agents as the cause of diseases classified elsewhere B97.[address] [address] Jul, Arthritis M19.[address] [address] Jun, Arthritis M19.90 ; Pain in right hip M25 .551 ; Pain in left hip M25.552 ; Bilateral low back pain with sciatica, sciatica laterality unspecified M54.40 ; Neck pain M54.2 ; Upper back pain M54.9 and Knee pain, unspecified laterality M25.569 [facility] [address] [address] 10 May, 2015 Osteoarthritis of both knees 715.96 [facility] [address] [address] May, Rash 782.1 [facility] [address] [address] Apr, Lumbar strain 847.2 [facility] [address] [address] Apr, Rash 782.1 [facility] [address] [address] Mar, Rash 782.1 [facility] [address] [address] Feb, Rash 782.1 ; Hemorrhoids 455.6 and Const ipation 564.00 [facility] [address] [address] Feb, Osteoarthritis of both knees 715.96 [facility] [address] [address] January, [facility] [address] [address] Dec, [facility] [address] [address] Dec, [facility] [address] [address] Dec, [facility] [address] [address] Nov, [facility] [address] [address] Nov, [facility] [address] [address] Nov, [facility] [address] [facility] [id number] [place] [address] Nov, [facility] [address] [facility] [id number] [place] [address] Nov, [facility] [address] [id number] [place] [address] Nov, [facility] [address] [facility] [id number] [place] [address] Oct, [facility] [address] [facility] [id number] [place] [address] Oct, [facility] [address] [id number] [place] [address] Oct, [facility] [address] [id number] [place] [address] Oct, [facility] [address] [id number] [place] [address] Oct, [facility] [address] [id number] [place] [address] Oct, [facility] [address] [id number] [place] [address] Oct, [facility] [address] [id number] [place] [address] Oct, [facility] [address] [id number] [place] [address] Oct, [facility] [address] [facility] [id number] [place] [address] Oct, [facility] [address] [id number] [place] [address] Oct, [facility] [address] [facility] [id number] [place] [address] Sep, [facility] [address] [id number] [place] [address] Sep, [facility] [address] [id number] [place] [address] Sep, [facility] [address] [id number] [place] [address] Sep, [facility] [address] [id number] [place] [address] Sep, [facility] [address] [id number] [place] [address] Sep, [facility] [address] [id number] [place] [address] Aug, [facility] [address] [id number] [place] [address] Aug, [facility] [address] [id number] [place] [address] Aug, [facility] [address] [id number] [place] [address] Aug, [facility] [address] [id number] [place] [address] Aug, [facility] [address] [id number] [place] [address] Aug, [facility] [address] [id number] [place] [address] Aug, [facility] [address] [id number] [place] [address] Aug, [facility] [address] [id number] [place] [address] Aug, [facility] [address] [id number] [place] [address] Aug, [facility] [address] [id number] [place] [address] Jul, [facility] [address] [id number] [place] [address] Jul, [facility] [address] [id number] [place] [address] Jul, [facility] [address] [facility] [id number] [place] [address] Jul, [facility] [address] [facility] [id number] [place] [address] Jun, [facility] [address] [id number] [place] [address] Jun, [facility] [address] [id number] [place] [address] Jun, [facility] [address] [id number] [place] [address] Jun, [facility] [address] [id number] [place] [address] Jun, [facility] [address] [id number] [place] [address] Jun, [facility] [address] [id number] [place] [address] Jun, [facility] [address] [id number] [place] [address] Jun, [facility] [address] [id number] [place] [address] 24 May, 2013 [facility] [address] [id number] [place] [address] 24 May, 2013 [facility] [address] [id number] [place] [address] 19 May, 2013 [facility] [address] [facility] [id number] [place] [address] 19 May, 2013 [facility] [address] [id number] [place] [address] 15 Sep, 2013 [facility] [address] [id number] [place] [address] 15 May, 2013 [facility] [address] [id number] [place] [address] 15 May, 2013 [facility] [address] [facility] [id number] [place] [address] May, [facility] [address] [facility] [id number] [place] [address] Apr, [facility] [address] [facility] [id number] [place] [address] Apr, [facility] [address] [id number] [place] [address] Apr, [facility] [address] [facility] [id number] [place] [address] Apr, [facility] [address] [id number] [place] [address] Apr, [facility] [address] [id number] [place] [address] Apr, [facility] [address] [id number] [place] [address] Apr, [facility] [address] [id number] [place] [address] Apr, [facility] [address] [id number] [place] [address] Apr, [facility] [address] [id number] [place] [address] Apr, [facility] [address] [id number] [place] [address] Apr, [facility] [address] [id number] [place] [address] Apr, [facility] [address] [id number] [place] [address] Mar, [facility] [address] [id number] [place] [address] Mar, [facility] [address] [id number] [place] [address] Mar, [facility] [address] [id number] [place] [address] Mar, [facility] [address] [facility] [id number] [place] [address] 02 Mar, 2013 [facility] [address] [facility] [id number] [place] [address] Mar, [facility] [address] [facility] [id number] [place] [address] 18 Feb, 2014 [facility] [address] [facility] [id number] [place] [address] 18 Feb, 2014 [facility] [address] [facility] [id number] [place] [address] Feb, [facility] [address] [id number] [place] [address] Feb, [facility] [address] [id number] [place] [address] 16 Feb, 2014 [facility] [address] [id number] [place] [address] Feb, [facility] [address] [id number] [place] [address] Feb, [facility] [address] [id number] [place] [address] Feb, [facility] [address] [id number] [place] [address] 05 Feb, 2014 [facility] [address] [id number] [place] [address] 05 Feb, 2014 [facility] [address] [facility] [id number] [place] [address] 04 Feb, 2014 [facility] [address] [id number] [place] [address] 04 Feb, 2014 [facility] [address] [id number] [place] [address] 03 Feb, 2014 [facility] [address] [id number] [place] [address] 03 Feb, 2014 [facility] [address] [id number] [place] [address] January, [facility] [address] [facility] [id number] [place] [address] January, [facility] [address] [id number] [place] [address] January, [facility] [address] [id number] [place] [address] January, [facility] [address] [id number] [place] [address] January, [facility] [address] [id number] [place] [address] January, [facility] [address] [id number] [place] [address] Dec, [facility] [address] [id number] [place] [address] Dec, [facility] [address] [id number] [place] [address] Dec, [facility] [address] [id number] [place] [address] Dec, [facility] [address] [id number] [place] [address] Dec, [facility] [address] [id number] [place] [address] Dec, [facility] [address] [id number] [place] [address] Dec, [facility] [address] [id number] [place] [address] Dec, [facility] [address] [id number] [place] [address] Nov, [facility] [address] [id number] [place] [address] Nov, [facility] [address] [id number] [place] [address] Nov, [facility] [address] [id number] [place] [address] Nov, [facility] [address] [id number] [place] [address] Nov, [facility] [address] [id number] [place] [address] Nov, [facility] [address] [id number] [place] [address] Nov, [facility] [address] [id number] [place] [address] Nov, [facility] [address] [id number] [place] [address] Oct, [facility] [address] [id number] [place] [address] Oct, [facility] [address] [id number] [place] [address] Oct, [facility] [address] [id number] [place] [address] Oct, [facility] [address] [id number] [place] [address] Oct, [facility] [address] [id number] [place] [address] Oct, [facility] [address] [id number] [place] [address] Oct, [facility] [address] [id number] [place] [address] Oct, [facility] [address] [id number] [place] [address] Oct, [facility] [address] [id number] [place] [address] Oct, [facility] [address] [id number] [place] [address] Sep, [facility] [address] [id number] [place] [address] 14 Sep, 2013 [facility] [address] [id number] [place] [address] Sep, [facility] [address] [id number] [place] [address] Sep, [facility] [address] [id number] [place] [address] Sep, [facility] [address] [id number] [place] [address] Sep, [facility] [address] [id number] [place] [address] Aug, [facility] [address] [id number] [place] [address] Aug, [facility] [address] [id number] [place] [address] Aug, [facility] [address] [id number] [place] [address] Aug, [facility] [address] [id number] [place] [address] Aug, [facility] [address] [id number] [place] [address] Aug, [facility] [address] [id number] [place] [address] Aug, [facility] [address] [id number] [place] [address] Aug, [facility] [address] [id number] [place] [address] Jul, [facility] [address] [id number] [place] [address] Jul, [facility] [address] [id number] [place] [address] Jul, [facility] [address] [id number] [place] [address] Jul, [facility] [address] [id number] [place] [address] Jul, [facility] [address] [id number] [place] [address] Jul, [facility] [address] [id number] [place] [address] Jun, [facility] [address] [id number] [place] [address] Jun, [facility] [address] [id number] [place] [address] Jun, [facility] [address] [id number] [place] [address] May, [facility] [address] [id number] [place] [address] May, [facility] [address] [id number] [place] [address] May, [facility] [address] [id number] [place] [address] Apr, [facility] [address] [id number] [place] [address] Apr, [facility] [address] [id number] [place] [address] Apr, [facility] [address] [id number] [place] [address] Apr, [facility] [address] [id number] [place] [address] Mar, [facility] [address] [id number] [place] [address] Mar, [facility] [address] [id number] [place] [address] Mar, [facility] [address] [id number] [place] [address] Mar, [facility] [address] [id number] [place] [address] Feb, [facility] [address] [id number] [place] [address] Feb, [facility] [address] [id number] [place] [address] Feb, [facility] [address] [id number] [place] [address] Feb, [facility] [address] [id number] [place] [address] January, [facility] [address] [facility] [id number] [place] [address] January, [facility] [address] [id number] [place] [address] January, [facility] [address] [id number] [place] [address] Nov, [facility] [address] [id number] [place] [address] Nov, [facility] [address] [id number] [place] [address] Oct, [facility] [address] [id number] [place] [address] Oct, [facility] [address] [id number] [place] [address] Oct, [facility] [address] [id number] [place] [address] Oct, [facility] [address] [id number] [place] [address] Sep, [facility] [address] [id number] [place] [address] Sep, [facility] [address] [id number] [place] [address] Sep, [facility] [address] [id number] [place] [address] Aug, [facility] [address] [id number] [place] [address] Aug, [facility] [address] [id number] [place] [address] Aug, [facility] [address] [id number] [place] [address] Aug, [facility] [address] [id number] [place] [address] Aug, [facility] [address] [id number] [place] [address] Aug, [facility] [address] [id number] [place] [address] Jul, [facility] [address] [id number] [place] [address] Jul, [facility] [address] [id number] [place] [address] Jun, [facility] [address] [id number] [place] [address] Jun, [facility] [address] [id number] [place] [address] Jun, [facility] [address] [id number] [place] [address] Apr, [facility] [address] [id number] [place] [address] Apr, [facility] [address] [id number] [place] [address] Mar, [facility] [address] [id number] [place] [address] Mar, [facility] [address] [id number] [place] [address] Mar, [facility] [address] [id number] [place] [address] Mar, [facility] [address] [id number] [place] [address] Feb, [facility] [id number] [place] [address] Feb, [facility] [address] [id number] [place] [address] Feb, [facility] [address] [id number] [place] [address] January, [facility] [address] [id number] [place] [address] January, [facility] [address] [id number] [place] [address] January, [facility] [address] [id number] [place] [address] January, [facility] [address] [id number] [place] [address] Dec, [facility] [address] [id number] [place] [address] Dec, [facility] [address] [id number] [place] [address] Nov, [facility] [address] [id number] [place] [address] Nov, [facility] [address] [id number] [place] [address] Oct, [facility] [address] [id number] [place] [address] Oct, [facility] [address] [id number] [place] [address] Sep, [facility] [address] [id number] [place] [address] Sep, [facility] [address] [id number] [place] [address] Sep, [facility] [address] [id number] [place] [address] Sep, [facility] [address] [id number] [place] [address] Aug, [facility] [id number] [place] [address] Aug, [facility] [id number] [place] [address] Aug, [facility] [id number] [place] [address] Jul, [facility] [id number] [place] [address] Aug, [facility] [id number] [place] [address] Aug, [facility] [id number] [place] [address] Aug, [facility] [id number] [place] [address] Aug, [facility] [id number] [place] [address] Jul, [facility] [id number] [place] [address] Jul, [facility] [id number] [place] [address] Jul, [facility] [id number] [place] [address] Jun, [facility] [id number] [place] [address] Jun, [facility] [id number] [place] [address] Jun, [facility] [id number] [place] [address] Apr, [facility] [id number] [place] [address] Mar, IMMUNIZATIONS No Known Immunizations SOCIAL HISTORY [...]
--- OUTSIDE RECORDS SUMMARY | 2020-03-18 15:11 | XMS REPORT ---
Author Author George GOMEZ Organization [facility] Address [address] [place] [address] Care Team Providers Care Devulcanizer Head Name Role Phone CHENG GOMEZ Unavailable PROBLEMS Type Condition ICD9-CM Code [id number] Code Onset Dates Condition S tatus SNOMED Code Problem Hypertension, benign I10 Active 89822053 Problem Other chronic pain G89.29 Active 8 0523237 Problem Lumbago with sciatica, unspecified side M54.40 Active 014447176 Problem Controlled type 2 diabetes m ellitus without complication, without long- term current use of insulin E11.9 Active 833446023 Problem Lumbago with sciatica, right side M54.41 Active 604301182 Problem Adjustment disorder with disturbance of emotion F4 3.29 Active 26583288 Problem MELE (obstructive sleep apnea) G47.33 Active 42203471 Problem Non morbid obesity E66.9 Active 4 99829624 Problem Hammer toe of left foot M20.42 Active 843813993 Problem Mood disorder F39 Active 901067 05 Problem Deformity of left foot M21.962 Active 754908792 Problem Lumbago with sciatica, left side M54.42 Active 029496800 Problem Erectile dysfunction due to diseases classified elsewhere N52.1 Active 580032114 Problem Obstructive sleep apnea syndrome G47.33 Active 79284930 Problem Type 2 diabetes mellitus wit h diabetic neuropathy, without long-term current use of insulin E11.40 Active 63387 006 Problem Essential hypertension I10 Active 64010098 ALLERGIES No Information ENCOUNTERS Encounter Location Date Diagnosis [facility] [id number] [place] [address] Nov, [facility] [address] [id number] [place] [address] Sep, [facility] [address] [id number] [place] [address] Aug, [place] [address] [address] Jul, Lumbago with sciatica, unspecified side M54.40 [facility] [address] [address] Jun, Lumbago with sciatica, unspecified side M54.40 [place] [address] [address] Jun, URI, acute J06.9 [place] [address] [address] May, Lumbago with sciatica, unspecified side M54.40 [place] [address] [address] May, [place] [address] [address] May, Type 2 diabetes mellitus with diabetic n europathy, without long-term current use of insulin E11.40 and Hammer toe of left foot M20.42 [place] [address] [address] May, [place] [address] [address] May, [place] [address] [address] May, [facility] [address] [address] Apr, Lumbago with sciatica, unspecified side M54.40 [facility] [address] [address] Apr, [facility] [address] [address] Apr, [facility] [place] [address] [place] [address] Apr, Hammer toe of left foot M20. 42 ; Chest pain R07.9 ; Preoperative examination Z01.818 and Morbid obesity E66.01 [place] [address] [address] Apr, Morbid obesity E66.01 ; Bronchitis J40 a nd High risk medications (not anticoagulants) long-term use Z79.899 [place] [address] [address] Apr, Lumbago with sciatica, unspecified side M54.40 [place] [address] [address] Apr, [place] [address] [address] Mar, Lumbar neuritis M54.16 and Morbid obesit y E66.01 [place] [address] [address] Mar, [place] [address] [address] Mar, [place] [address] [address] Mar, Lumbago with sciatica, unspecified side M54.40 [place] [address] [address] Mar, Morbid obesity E66.01 ; Coughing R05 ; 2 + pitting edema R60.9 and Controlled type 2 diabetes mellitus without complication, without long-term current use of insulin E11.9 [place] [address] [address] Feb, [place] [address] [address] Feb, Lumbago with sciatica, unspecified side M54.40 [place] [address] [address] Feb, [place] [address] [address] Feb, Controlled type 2 diabetes mellitus with out complication, without long-term current use of insulin E11.9 and Morbid obesity E66.01 [place] [address] [address] January, Deformity of left foot M21.962 [place] [address] [address] January, [place] [address] [address] January, Lumbago with sciatica, unspecified side M54.40 [place] [address] [address] January, [place] [address] [address] January, Lumbago with sciatica, unspecified side M54.40 [place] [address] [address] January, [place] [address] [address] January, Acute right-sided thoracic back pain M54 .6 [place] [address] [address] January, Acute right-sided thoracic back pain M54 .6 [place] [address] [address] January, Chest pain, unspecified type R07.9 ; Mor bid obesity E66.01 and Scabies B86 [place] [address] [address] Dec, Lumbago with sciatica, unspecified side M54.40 [place] [address] [address] Dec, Toenail fungus B35.1 [place] [address] [address] Dec, Toenail fungus B35.1 [place] [address] [address] Dec, Acute right-sided thoracic back pain M54 .6 [place] [address] [address] Dec, Lumbago with sciatica, unspecified side M54.40 [place] [address] [address] Nov, Hammer toe of left foot M20.42 ; Deformi ty of left foot M21.962 and Type 2 diabetes mellitus with diabetic neuropathy, without long-term current use of insulin E11.40 [facility] [address] [facility] [id number] [address] [place] [address] Nov, Acute right-sided thoracic b ack pain M54.6 ; Morbid obesity E66.01 and Rt flank pain R10.9 [place] [address] [address] Nov, Lumbago with sciatica, unspecified side M54.40 [place] [address] [address] Oct, Lumbago with sciatica, unspecified side M54.40 [place] [address] [address] Sep, Lumbago with sciatica, unspecified side M54.40 [place] [address] [address] Sep, [place] [address] [address] Sep, BMI 40.0-44.9, adult Z68.41 ; Lumbago wi th sciatica, left side M54.42 ; Lumbago with sciatica, right side M54.41 and Other chronic pain G89.29 [place] [address] [address] Aug, Lumbago with sciatica, unspecified side M54.40 [place] [address] [address] Aug, Type 2 diabetes mellitus with diabetic n europathy, without long-term current use of insulin E11.40 ; Hammer toe of left foot M20.42 ; Hypertension, benign I10 and Frequent headaches R51 [place] [address] [address] Jul, Lumbago with sciatica, unspecified side M54.40 [place] [address] [address] Jul, [place] [address] [address] Jul, Essential hypertension I10 and Controlle d type 2 diabetes mellitus without complication, without long-term current use of insulin E11.9 [place] [address] [address] Jul, Essential hypertension I10 ; Controlled type 2 diabetes mellitus without complication, without long-term current use of insulin E11.9 and BMI 40.0-44.9, adult Z68.41 [place] [address] [address] Jul, Dysfunction of left eustachian tube H69. 82 [place] [address] [address] Jul, Lumbago with sciatica, unspecified side M54.40 [facility] [id number] [place] [id number] Jun, Dental examination Z01.20 [place] [address] [address] Jun, Lumbago with sciatica, unspecified side M54.40 and Encounter for immunization Z23 [place] [address] [address] Jun, Dysfunction of left eustachian tube H69. [address] [facility] [id number] [place] [id number] Jun, Dental examination Z01.20 [facility] [address] [address] Jun, Other chronic pain G89.29 [facility] [address] [facility] [place] [id number] Jun, Dental examination Z01.20 [facility] [address] [address] Jun, [place] [address] [address] Jun, Bronchitis J40 ; Dysfunction of left eus tachian tube H69.82 and BMI 45.0-49.9, adult Z68.42 [place] [address] [address] Jun, Lumbago with sciatica, unspecified side M54.40 [facility] [address] [address] May, Type 2 diabetes mellitus with diabetic n europathy, without long-term current use of insulin E11.40 and Hypertension, benign I10 [place] [address] [address] May, Lumbago with sciatica, unspecified side M54.40 [facility] [address] [facility] [id number] [address] [place] [address] Apr, [facility] [address] [address] Apr, Controlled type 2 diabetes mellitus with out complication, without long-term current use of insulin E11.9 ; Insect bite (nonvenomous), right ankle, initial encounter S90.561A ; Local infection of the skin and subcutaneous tissue, unspecified L08.9 ; Acute swimmer''s ear of left side H60.332 and BMI 45.0-49.9, adult Z68.42 [place] [address] [address] Apr, Lumbago with sciatica, unspecified side M54.40 [place] [address] [address] Mar, [place] [address] [address] Mar, Lumbago with sciatica, unspecified side M54.40 [place] [address] [address] Feb, Lumbago with sciatica, unspecified side M54.40 [place] [address] [address] Feb, BMI 45.0-49.9, adult Z68.42 and Obstruct jaida sleep apnea syndrome G47.33 [place] [address] [address] January, Lumbar neuritis M54.16 [place] [address] [address] January, Lumbago with sciatica, unspecified side M54.40 [place] [address] [address] Dec, Controlled type 2 diabetes mellitus with out complication, without long-term current use of insulin E11.9 ; Erectile dysfunction due to diseases classified elsewhere N52.1 and Mood disorder F39 [place] [address] [address] Dec, Lumbago with sciatica, unspecified side M54.40 [place] [address] [address] Dec, Obstructive sleep apnea syndrome G47.33 [place] [address] [address] Nov, Lumbago with sciatica, unspecified side M54.40 ; Hypertension, benign I10 and Mood disorder F39 [place] [address] [address] Nov, Other chronic pain G89.29 [facility] [address] [address] Nov, Lumbago with sciatica, unspecified side M54.40 [facility] [address] [id number] Nov, Dental examination Z01.20 [facility] [address] [address] Oct, [facility] [address] [address] Oct, Lumbago with sciatica, unspecified side M54.40 [facility] [address] [address] Oct, Lumbago with sciatica, unspecified side M54.40 [facility] [address] [address] Oct, [facility] [address] [address] Oct, [facility] [address] [id number] Oct, Dental examination Z01.20 [facility] [address] [address] Oct, [facility] [address] [address] Oct, Pain in right knee M25.561 [facility] [address] [address] Sep, [facility] [address] [address] Sep, Other chronic pain G89.29 [facility] [address] [address] Sep, Lumbago with sciatica, unspecified side M54.40 [facility] [address] [address] Sep, [facility] [id number] [place] [address] Sep, Viral URI J06.9 and BMI 45.0 -49.9, adult Z68.42 [facility] [address] [address] Aug, Foreign body hand S60.559A a nd BMI 45.0-49.9, adult Z68.42 [place] [address] [address] Aug, [place] [address] [address] Aug, Lumbago with sciatica, unspecified side M54.40 [place] [address] [address] Aug, Vertigo R42 ; Dysfunction of both eustac hian tubes H69.83 ; Low back pain M54.5 and Other chronic pain G89.29 [facility] [place] [id number] [place] [address] Aug, Dizziness R42 and Acute bila teral otitis media H66.93 [place] [address] [address] Aug, Lumbago with sciatica, unspecified side M54.40 [facility] [address] [facility] [place] [id number] Jul, Dental examination Z01.20 [place] [address] [address] Jul, [place] [address] [address] Jul, [place] [address] [address] Jul, Dysfunction of both eustachian tubes H69 .83 [facility] [address] [address] Jul, Controlled type 2 diabetes mellitus with out complication, without long-term current use of insulin E11.9 [facility] [address] [address] Jul, Controlled type 2 diabetes mellitus with out complication, without long-term current use of insulin E11.9 [facility] [address] [facility] [id number] [place] [address] Jul, Dizziness R42 and BMI 40.0-4 4.9, adult Z68.41 [place] [address] [address] Jul, Controlled type 2 diabetes mellitus with out complication, without long-term current use of insulin E11.9 [place] [address] [address] Jul, Lumbago with sciatica, unspecified side M54.40 [facility] [address] [id number] Jul, Dental examination Z01.20 [place] [address] [address] Jun, [facility] [address] [id number] Jun, Dental examination Z01.20 [place] [address] [address] Jun, Controlled type 2 diabetes mellitus with out complication, without long-term current use of insulin E11.9 [place] [address] [address] Jun, Lumbago with sciatica, unspecified side M54.40 [facility] [address] [id number] May, Dental examination Z01.20 [place] [address] [id number] May, Controlled type 2 diabetes mellitus with out complication, without long-term current use of insulin E11.9 [facility] [address] [id number] May, Dental examination Z01.20 [facility] [address] [address] 18 May, 2017 Bronchitis J40 ; Dry mouth R68.2 ; Non m orbid obesity E66.9 and Controlled type 2 diabetes mellitus without complication, without long-term current use of insulin E11.9 [facility] [address] [address] 16 May, 2017 Encounter for immunization Z 23 [facility] [address] [address] 07 May, 2017 Lumbago with sciatica, unspecified side M54.40 [facility] [address] [address] 05 May, 2017 [facility] [address] [id number] Apr, Dental examination Z01.20 [facility] [address] [address] Apr, Lumbago with sciatica, unspecified side M54.40 [facility] [address] [address] Mar, Lumbago with sciatica, left side M54.42 [facility] [address] [address] Mar, [facility] [address] [address] Mar, Lumbar neuritis M54.16 [facility] [address] [address] Mar, [facility] [address] [id number] Mar, Dental examination Z01.20 [place] [address] [address] Mar, MELE (obstructive sleep apnea) G47.33 ; N europathy involving both lower extremities G57.93 and Frequent headaches R51 [place] [address] [address] Mar, Lumbago with sciatica, unspecified side M54.40 [place] [address] [address] Feb, Lumbago with sciatica, unspecified side M54.40 and Controlled type 2 diabetes mellitus without complication, without long-term current use of insulin E11.9 [place] [address] [address] January, Hypertension, benign I10 and Bilateral l ow back pain with sciatica, sciatica laterality unspecified M54.40 [place] [address] [address] January, Hypertension, benign I10 ; Lumbago with sciatica, unspecified side M54.40 ; Other chronic pain G89.29 and Controlled type 2 diabetes mellitus without complication, without long-term current use of insulin E11.9 [place] [address] [address] January, Lumbar neuritis M54.16 [place] [address] [address] January, [place] [address] [address] Dec, Lumbago with sciatica, right side M54.41 and Lumbar neuritis M54.16 [place] [address] [address] Dec, Lumbar neuritis M54.16 [place] [address] [address] Dec, Lumbar neuritis M54.16 [place] [address] [address] 16 Nov, 2016 Lumbar neuritis M54.16 ; Lumbago with sc iatica, right side M54.41 ; Controlled type 2 diabetes mellitus without complication, without long-term current use of insulin E11.9 and Rash and nonspecific skin eruption R21 [place] [address] [address] 09 Nov, 2016 Lumbar neuritis M54.16 and Poison miroslava L2 3.7 [place] [address] [address] Oct, Lumbar neuritis M54.16 ; Coughing R05 an d Mood disorder F39 [place] [address] [address] Sep, Lumbago with sciatica, right side M54.41 [place] [address] [address] Sep, Adjustment disorder with disturbance of emotion F43.29 and Pain management R52 [place] [address] [address] Sep, [place] [address] [address] Sep, [place] [address] [address] Sep, Controlled type 2 diabetes mellitus with out complication, without long-term current use of insulin E11.9 and Lumbago with sciatica, unspecified side M54.40 [place] [address] [address] Aug, Controlled type 2 diabetes mellitus with out complication, without long-term current use of insulin E11.9 ; Pain in right knee M25.561 ; Pain in left knee M25.562 ; Other chronic pain G89.29 ; Lumbago with sciatica, right side M54.41 ; Neck pain M54.2 and Encounter for immunization Z23 [place] [address] [address] Jul, [facility] [address] [address] Jul, Controlled type 2 diabetes mellitus with out complication, without long-term current use of insulin E11.9 [place] [address] [address] 17 Jul, 2016 [facility] [address] [address] Jul, [facility] [address] [address] Jul, Lumbago with sciatica, left side M54.42 ; Lumbago with sciatica, right side M54.41 and Other chronic pain G89.29 [place] [address] [address] Jul, [place] [address] [address] Jul, [facility] [address] [address] Jun, [facility] [address] [address] Jun, Lumbago with sciatica, right side M54.41 and Other chronic pain G89.29 [place] [address] [address] Jun, Cervicalgia M54.2 ; Lumbago with sciatic a, unspecified side M54.40 and Other chronic pain G89.29 [facility] [address] [address] 15 May, 2016 Pain in right knee M25.561 ; Pain in lef t knee M25.562 and Other chronic pain G89.29 [place] [address] [address] 14 May, 2016 [facility] [address] [address] Apr, Other chronic pain G89.29 and Pain in ri ght knee M25.561 [place] [address] [address] Apr, Pain in right knee M25.561 [place] [address] [address] Mar, [place] [address] [address] Mar, Mood disorder F39 and Controlled type 2 diabetes mellitus without complication, without long-term current use of insulin E11.9 [place] [address] [address] Mar, Pain in right knee M25.561 ; Pain in lef t knee M25.562 ; Other chronic pain G89.29 ; Obstructive sleep apnea syndrome G47.33 ; Mood disorder F39 and Controlled type 2 diabetes mellitus without complication, without long-term current use of insulin E11.9 [place] [address] [address] Mar, [facility] [address] [id number] Feb, Dental examination Z01.20 [place] [address] [address] Feb, [place] [address] [address] Feb, Osteoarthritis of right knee, unspecifie d osteoarthritis type M17.9 [place] [address] [address] January, [facility] [address] [id number] January, Dental examination Z01.20 [place] [address] [address] January, [facility] [address] [id number] January, Dental examination Z01.20 and Caries K02 .9 [facility] [address] [address] Dec, Encounter for other preprocedural examin ation Z01.818 [facility] [address] [address] Dec, [facility] [address] [address] Dec, Knee pain M25.569 [facility] [address] [address] Dec, Pain in right knee M25.561 [facility] [address] [address] Dec, [facility] [address] [address] Dec, [facility] [address] [address] Dec, Encounter for immunization Z23 [facility] [address] [address] Dec, [facility] [address] [address] Dec, [facility] [address] [address] Nov, [facility] [address] [address] Nov, Hypertension, benign I10 ; Cervicalgia M 54.2 ; Pain in right knee M25.561 and Pain in left knee M25.562 [facility] [address] [address] Oct, [facility] [address] [address] Oct, [facility] [address] [address] Oct, Osteoarthritis of both knees M17.0 [place] [address] [address] Oct, [place] [address] [address] Oct, Low back pain M54.5 [place] [address] [address] Oct, Low back pain M54.5 ; Sciatica, unspecif ied side M54.30 ; Pain in right knee M25.561 ; Pain in left knee M25.562 ; Pain in right shoulder M25.511 and Pain in left shoulder M25.512 [place] [address] [address] Oct, [place] [address] [address] Sep, Pain in right hip M25.551 [place] [address] [address] Sep, Acute upper respiratory infection, unspe cified J06.[address] [address] Aug, Acute upper respiratory infection, unspe cified J06.9 and Other viral agents as the cause of diseases classified elsewhere B97.[address] [address] Jul, Arthritis M19.[address] [address] Jun, Arthritis M19.90 ; Pain in right hip M25 .551 ; Pain in left hip M25.552 ; Bilateral low back pain with sciatica, sciatica laterality unspecified M54.40 ; Neck pain M54.2 ; Upper back pain M54.9 and Knee pain, unspecified laterality M25.[address] [address] May, Osteoarthritis of both knees 715.96 [facility] [address] [address] May, Rash 782.1 [facility] [address] [address] Apr, Lumbar strain 847.2 [facility] [address] [address] Apr, Rash 782.1 [facility] [address] [address] Mar, Rash 782.1 [facility] [address] [address] Feb, Rash 782.1 ; Hemorrhoids 455.6 and Const ipation 564.00 [facility] [address] [address] Feb, Osteoarthritis of both knees 715.96 [facility] [address] [address] January, [facility] [address] [address] 28 Dec, 2014 [facility] [address] [address] Dec, [facility] [address] [address] Dec, [facility] [address] [address] Nov, [facility] [address] [address] Nov, [facility] [address] [address] Nov, [facility] [address] [address] Nov, [facility] [address] [address] Nov, [facility] [place] [facility] [address] [facility] [id number] [facility] [place] [address] Nov, [facility] [place] [facility] [address] [facility] [id number] [facility] [place] [address] Oct, [facility] [place] [facility] [address] [id number] [facility] [place] [address] Oct, [facility] [place] [facility] [address] [id number] [facility] [place] [address] Oct, [facility] [place] [facility] [address] [facility] [id number] [facility] [place] [address] Oct, [facility] [place] [facility] [address] [id number] [place] [address] Oct, [facility] [place] [facility] [address] [id number] [place] [address] Oct, [facility] [place] [facility] [address] [id number] [place] [address] Oct, [facility] [place] [facility] [address] [id number] [place] [address] Oct, [facility] [place] [facility] [address] [id number] [place] [address] Oct, [facility] [place] [facility] [address] [id number] [place] [address] Oct, [facility] [place] [facility] [address] [id number] [place] [address] Oct, [facility] [place] [facility] [address] [id number] [place] [address] Sep, [facility] [place] [facility] [address] [id number] [place] [address] Sep, [facility] [place] [facility] [address] [id number] [place] [address] Sep, [facility] [place] [facility] [address] [id number] [place] [address] Sep, [facility] [place] [facility] [address] [id number] [place] [address] Sep, [facility] [place] [facility] [address] [id number] [place] [address] Sep, [facility] [place] [facility] [address] [id number] [place] [address] Aug, [facility] [place] [facility] [address] [id number] [place] [address] Aug, [facility] [place] [facility] [address] [id number] [place] [address] Aug, [facility] [place] [facility] [address] [id number] [place] [address] Aug, [facility] [place] [facility] [address] [id number] [place] [address] Aug, [facility] [place] [facility] [address] [id number] [place] [address] Aug, [facility] [place] [facility] [address] [id number] [place] [address] Aug, [facility] [place] [facility] [address] [id number] [place] [address] Aug, [facility] [place] [facility] [address] [id number] [place] [address] Aug, [facility] [place] [facility] [address] [id number] [place] [address] Aug, [facility] [place] [facility] [address] [id number] [place] [address] Jul, [facility] [place] [facility] [address] [id number] [place] [address] Jul, [facility] [place] [facility] [address] [id number] [place] [address] Jul, [facility] [place] [facility] [address] [id number] [place] [address] Jul, [facility] [place] [facility] [address] [id number] [place] [address] Jun, [facility] [place] [facility] [address] [facility] [id number] [place] [address] Jun, [facility] [place] [facility] [address] [facility] [id number] [place] [address] Jun, [facility] [place] [facility] [address] [id number] [place] [address] Jun, [facility] [place] [facility] [address] [facility] [id number] [place] [address] Jun, [facility] [place] [facility] [address] [facility] [id number] [place] [address] Jun, [facility] [place] [facility] [address] [id number] [place] [address] Jun, [facility] [place] [facility] [address] [id number] [place] [address] Jun, [facility] [place] [facility] [address] [id number] [place] [address] 24 May, 2013 [facility] [place] [facility] [address] [facility] [id number] [place] [address] 24 May, 2013 [facility] [place] [facility] [address] [id number] [place] [address] 19 May, 2013 [facility] [place] [facility] [address] [id number] [place] [address] 19 May, 2013 [facility] [place] [facility] [address] [id number] [place] [address] 15 May, 2013 [facility] [place] [facility] [address] [id number] [place] [address] 15 May, 2013 [facility] [place] [facility] [address] [id number] [place] [address] 15 May, 2013 [facility] [place] [facility] [address] [id number] [place] [address] 15 May, 2013 [facility] [place] [facility] [address] [id number] [place] [address] Apr, [facility] [place] [facility] [address] [id number] [place] [address] Apr, [facility] [place] [facility] [address] [id number] [place] [address] Apr, [facility] [place] [facility] [address] [id number] [place] [address] Apr, [facility] [place] [facility] [address] [id number] [place] [address] Apr, [facility] [place] [facility] [address] [id number] [place] [address] Apr, [facility] [place] [facility] [address] [id number] [place] [address] Apr, [facility] [place] [facility] [address] [id number] [place] [address] Apr, [facility] [place] [facility] [address] [id number] [place] [address] Apr, [facility] [place] [facility] [address] [id number] [place] [address] Apr, [facility] [place] [facility] [address] [id number] [place] [address] Apr, [facility] [place] [facility] [address] [id number] [place] [address] Apr, [facility] [place] [facility] [address] [id number] [place] [address] Mar, [facility] [place] [facility] [address] [id number] [place] [address] Mar, [facility] [place] [facility] [address] [id number] [place] [address] Mar, [facility] [place] [facility] [address] [id number] [place] [address] Mar, [facility] [place] [facility] [address] [id number] [place] [address] Mar, [facility] [place] [facility] [address] [id number] [place] [address] Mar, [facility] [place] [facility] [address] [facility] [id number] [place] [address] Feb, [facility] [place] [facility] [address] [id number] [place] [address] Feb, [facility] [place] [facility] [address] [id number] [place] [address] Feb, [facility] [place] [facility] [address] [id number] [place] [address] Feb, [facility] [place] [facility] [address] [facility] [id number] [place] [address] Feb, [facility] [place] [facility] [address] [id number] [place] [address] Feb, [facility] [place] [facility] [address] [id number] [place] [address] Feb, [facility] [place] [facility] [address] [id number] [place] [address] Feb, [facility] [place] [facility] [address] [id number] [place] [address] Feb, [facility] [place] [facility] [address] [id number] [place] [address] Feb, [facility] [place] [facility] [address] [id number] [place] [address] Feb, [facility] [place] [facility] [address] [id number] [place] [address] Feb, [facility] [place] [facility] [address] [id number] [place] [address] Feb, [facility] [place] [facility] [address] [id number] [place] [address] Feb, [facility] [place] [facility] [address] [id number] [place] [address] January, [facility] [place] [facility] [address] [id number] [place] [address] January, [facility] [place] [facility] [address] [id number] [place] [address] January, [facility] [place] [facility] [address] [facility] [id number] [place] [address] January, [facility] [place] [facility] [address] [facility] [id number] [facility] [place] [address] January, [facility] [place] [facility] [address] [id number] [place] [address] January, [facility] [place] [facility] [address] [id number] [facility] [place] [address] Dec, [facility] [place] [facility] [address] [facility] [id number] [place] [address] Dec, [facility] [place] [facility] [address] [id number] [place] [address] Dec, [facility] [place] [facility] [address] [id number] [place] [address] Dec, [facility] [place] [facility] [address] [id number] [place] [address] Dec, [facility] [place] [facility] [address] [id number] [place] [address] Dec, [facility] [place] [facility] [address] [id number] [place] [address] Dec, [facility] [place] [facility] [address] [id number] [place] [address] Dec, [facility] [place] [facility] [address] [id number] [place] [address] Nov, [facility] [place] [facility] [address] [id number] [place] [address] Nov, [facility] [place] [facility] [address] [id number] [place] [address] Nov, [facility] [place] [facility] [address] [id number] [place] [address] Nov, [facility] [place] [facility] [address] [id number] [place] [address] Nov, [facility] [place] [facility] [address] [id number] [place] [address] Nov, [facility] [place] [facility] [address] [id number] [place] [address] Nov, [facility] [place] [facility] [address] [id number] [place] [address] Nov, [facility] [place] [facility] [address] [id number] [place] [address] Oct, [facility] [place] [facility] [address] [id number] [place] [address] Oct, [facility] [place] [facility] [address] [id number] [place] [address] Oct, [facility] [place] [facility] [address] [id number] [place] [address] Oct, [facility] [place] [facility] [address] [id number] [place] [address] Oct, [facility] [place] [facility] [address] [id number] [place] [address] Oct, [facility] [place] [facility] [address] [id number] [place] [address] Oct, [facility] [place] [facility] [address] [id number] [place] [address] Oct, [facility] [place] [facility] [address] [id number] [place] [address] Oct, [facility] [place] [facility] [address] [id number] [place] [address] Oct, [facility] [place] [facility] [address] [id number] [place] [address] Sep, [facility] [place] [facility] [address] [id number] [place] [address] Sep, [facility] [place] [facility] [address] [id number] [place] [address] Sep, [facility] [place] [facility] [address] [id number] [place] [address] Sep, [facility] [place] [facility] [address] [id number] [place] [address] Sep, [facility] [place] [facility] [address] [id number] [place] [address] Sep, [facility] [place] [facility] [address] [id number] [place] [address] Aug, [facility] [place] [facility] [address] [id number] [place] [address] Aug, [facility] [place] [facility] [address] [id number] [place] [address] Aug, [facility] [place] [facility] [address] [id number] [place] [address] Aug, [facility] [place] [facility] [address] [id number] [place] [address] Aug, [facility] [place] [facility] [address] [id number] [place] [address] Aug, [facility] [place] [facility] [address] [id number] [place] [address] Aug, [facility] [place] [facility] [address] [id number] [place] [address] Aug, [facility] [place] [facility] [address] [id number] [place] [address] Jul, [facility] [place] [facility] [address] [id number] [place] [address] Jul, [facility] [place] [facility] [address] [id number] [place] [address] Jul, [facility] [place] [facility] [address] [id number] [place] [address] Jul, [facility] [place] [facility] [address] [id number] [place] [address] Jul, [facility] [place] [facility] [address] [id number] [place] [address] Jul, [facility] [place] [facility] [address] [id number] [place] [address] Jun, [facility] [place] [facility] [address] [facility] [id number] [place] [address] Jun, [facility] [place] [facility] [address] [id number] [place] [address] Jun, [facility] [place] [facility] [address] [id number] [place] [address] May, [facility] [place] [facility] [address] [id number] [place] [address] May, [facility] [place] [facility] [address] [id number] [place] [address] May, [facility] [place] [facility] [address] [id number] [place] [address] Apr, [facility] [place] [facility] [address] [id number] [place] [address] Apr, [facility] [place] [facility] [address] [id number] [place] [address] Apr, [facility] [place] [facility] [address] [id number] [place] [address] Apr, [facility] [place] [facility] [address] [id number] [place] [address] Mar, [facility] [place] [facility] [address] [id number] [place] [address] Mar, [facility] [place] [facility] [address] [id number] [place] [address] Mar, [facility] [place] [facility] [address] [id number] [place] [address] Mar, [facility] [place] [facility] [address] [id number] [place] [address] Feb, [facility] [place] [facility] [address] [id number] [place] [address] Feb, [facility] [place] [facility] [address] [id number] [place] [address] Feb, [facility] [place] [facility] [address] [id number] [place] [address] Feb, [facility] [address] [id number] [place] [address] January, [facility] [place] [facility] [address] [id number] [place] [address] January, [facility] [address] [id number] [place] [address] January, [facility] [address] [id number] [place] [address] Nov, [facility] [address] [id number] [place] [address] Nov, [facility] [address] [id number] [place] [address] Oct, [facility] [address] [id number] [place] [address] Oct, [facility] [address] [id number] [place] [address] Oct, [facility] [address] [id number] [place] [address] Oct, [facility] [address] [id number] [place] [address] Sep, [facility] [address] [id number] [place] [address] Sep, [facility] [address] [id number] [place] [address] Sep, [facility] [address] [id number] [place] [address] Aug, [facility] [address] [id number] [place] [address] Aug, [facility] [address] [id number] [place] [address] Aug, [facility] [address] [id number] [place] [address] Aug, [facility] [address] [facility] [id number] [place] [address] Aug, [facility] [address] [id number] [place] [address] Aug, [facility] [address] [id number] [place] [address] Jul, [facility] [address] [id number] [place] [address] Jul, [facility] [address] [id number] [place] [address] Jun, [facility] [address] [id number] [place] [address] Jun, [facility] [address] [id number] [place] [address] Jun, [facility] [address] [id number] [place] [address] Apr, [facility] [address] [id number] [place] [address] Apr, [facility] [address] [id number] [place] [address] Mar, [facility] [address] [id number] [place] [address] Mar, [facility] [address] [id number] [place] [address] Mar, [facility] [address] [id number] [place] [address] Mar, [facility] [address] [id number] [place] [address] Feb, [facility] [address] [id number] [place] [address] Feb, [facility] [address] [id number] [place] [address] Feb, [facility] [address] [id number] [place] [address] January, [facility] [address] [id number] [place] [address] January, [facility] [address] [id number] [place] [address] January, [facility] [address] [id number] [place] [address] January, [facility] [address] [id number] [place] [address] Dec, [facility] [address] [id number] [place] [address] Dec, [facility] [address] [id number] [place] [address] Nov, [facility] [address] [id number] [place] [address] Nov, [facility] [address] [id number] [place] [address] Oct, [facility] [address] [id number] [place] [address] Oct, [facility] [address] [id number] [place] [address] Sep, [facility] [address] [id number] [place] [address] Sep, [facility] [address] [id number] [place] [address] Sep, [facility] [address] [id number] [place] [address] Sep, [facility] [id number] [place] [address] Aug, [facility] [address] [id number] [place] [address] Aug, [facility] [address] [id number] [place] [address] Aug, [facility] [id number] [place] [id number] Jul, [facility] [id number] [place] [address] Aug, [facility] [address] [id number] [place] [address] Aug, [facility] [id number] [place] [address] Aug, [facility] [address] [id number] [place] [address] Aug, [facility] [address] [address] Jul, [facility] [address] [id number] [place] [address] Jul, [facility] [address] [address] Jul, [facility] [id number] [place] [address] Jun, [facility] [id number] [place] [address] Jun, [facility] [id number] [place] [address] Jun, [facility] [id number] [place] [address] Apr, [facility] [id number] [place] [address] Mar, IMMUNIZATIONS No Known Immunizations SOCIAL HISTORY Never Assessed REASON FOR VISIT romy left foot #3 - MPeters, REE PLAN OF CARE VITAL SIGNS Height 66 in 2018-12-08 Blood pressure systolic 160 mmHg 2018-12-08 Blood pressure diastolic 100 mmHg 2018-12-08 MEDICATIONS Unknown Medications RESULTS No Results PROCEDURES [...]
--- OUTSIDE RECORDS SUMMARY | 2020-03-18 15:11 | XMS REPORT ---
Author Author George Marx Doctor Organization [facility] Address Unknown Phone Unavailable Care Team Providers Care Residential Glazier Name Role Phone Migration, Doctor Unavailable Unavailable PROBLEMS Type Condition ICD9-CM Code RUE95-PP Code Onset Dates Condition S tatus SNOMED Code Problem Hypertension, benign I10 Active 56498972 Problem Other chronic pain G89.29 Active 8 4412923 Problem Lumbago with sciatica, unspecified side M54.40 Active 917397942 Problem Controlled type 2 diabetes m ellitus without complication, without long- term current use of insulin E11.9 Active 865426675 Problem Lumbago with sciatica, right side M54.41 Active 161079594 Problem Adjustment disorder with disturbance of emotion F4 3.29 Active 32231692 Problem MELE (obstructive sleep apnea) G47.33 Active 80701542 Problem Non morbid obesity E66.9 Active 4 89198830 Problem Hammer toe of left foot M20.42 Active 157390157 Problem Mood disorder F39 Active 653665 05 Problem Deformity of left foot M21.962 Active 767235933 Problem Lumbago with sciatica, left side M54.42 Active 338228953 Problem Erectile dysfunction due to diseases classified elsewhere N52.1 Active 688006133 Problem Obstructive sleep apnea syndrome G47.33 Active 77797617 Problem Type 2 diabetes mellitus wit h diabetic neuropathy, without long-term current use of insulin E11.40 Active 42562 006 Problem Essential hypertension I10 Active 33838538 ALLERGIES No Information ENCOUNTERS Encounter Location Date Diagnosis [facility] [address] [id number] [place] [address] Nov, [facility] [id number] [place] [address] Sep, [facility] [address] [id number] [place] [address] Aug, [facility] [address] [id number] [place] [address] Jul, Lumbago with sciatica, unspecified side M54.40 [place] [address] [address] Jun, Lumbago with sciatica, unspecified side M54.40 [place] [address] [address] Jun, URI, acute J06.9 [place] [address] [address] May, Lumbago with sciatica, unspecified side M54.40 [place] [address] [address] May, [place] [address] [address] May, Type 2 diabetes mellitus with diabetic n europathy, without long-term current use of insulin E11.40 and Hammer toe of left foot M20.42 [place] [address] [address] May, [place] [address] [address] May, [place] [address] [address] May, [place] [address] [address] Apr, Lumbago with sciatica, unspecified side M54.40 [place] [address] [address] Apr, [place] [address] [address] Apr, [place] [address] [place] [address] Apr, Hammer toe of left foot M20. 42 ; Chest pain R07.9 ; Preoperative examination Z01.818 and Morbid obesity E66.01 [place] [address] [address] Apr, Morbid obesity E66.01 ; Bronchitis J40 a nd High risk medications (not anticoagulants) long-term use Z79.899 [place] [address] [address] Apr, Lumbago with sciatica, unspecified side M54.40 [place] [address] [address] Apr, [place] [address] [address] Mar, Lumbar neuritis M54.16 and Morbid obesit y E66.01 [place] [address] [address] Mar, [place] [address] [address] Mar, [place] [address] [address] Mar, Lumbago with sciatica, unspecified side M54.40 [place] [address] [address] Mar, Morbid obesity E66.01 ; Coughing R05 ; 2 + pitting edema R60.9 and Controlled type 2 diabetes mellitus without complication, without long-term current use of insulin E11.9 [place] [address] [address] Feb, [place] [address] [address] Feb, Lumbago with sciatica, unspecified side M54.40 [place] [address] [address] Feb, [address] [address] Feb, Controlled type 2 diabetes mellitus with out complication, without long-term current use of insulin E11.9 and Morbid obesity E66.01 [place] [address] [address] January, Deformity of left foot M21.962 [place] [address] [address] January, [facility] [address] [address] January, Lumbago with sciatica, unspecified side M54.40 [place] [address] [address] January, [place] [address] [address] January, Lumbago with sciatica, unspecified side M54.40 [place] [address] [address] January, [place] [address] [address] January, Acute right-sided thoracic back pain M54 .6 [place] [address] [address] January, Acute right-sided thoracic back pain M54 .6 [place] [address] [address] January, Chest pain, unspecified type R07.9 ; Mor bid obesity E66.01 and Scabies B86 [place] [address] [address] Dec, Lumbago with sciatica, unspecified side M54.40 [place] [address] [address] Dec, Toenail fungus B35.1 [place] [address] [address] Dec, Toenail fungus B35.1 [place] [address] [address] Dec, Acute right-sided thoracic back pain M54 .6 [place] [address] [address] Dec, Lumbago with sciatica, unspecified side M54.40 [facility] [address] [address] Nov, Hammer toe of left foot M20.42 ; Deformi ty of left foot M21.962 and Type 2 diabetes mellitus with diabetic neuropathy, without long-term current use of insulin E11.40 [facility] [address] [facility] [id number] [place] [address] Nov, Acute right-sided thoracic b ack pain M54.6 ; Morbid obesity E66.01 and Rt flank pain R10.9 [place] [address] [address] Nov, Lumbago with sciatica, unspecified side M54.40 [place] [address] [address] Oct, Lumbago with sciatica, unspecified side M54.40 [place] [address] [address] Sep, Lumbago with sciatica, unspecified side M54.40 [place] [address] [address] Sep, [place] [address] [address] Sep, BMI 40.0-44.9, adult Z68.41 ; Lumbago wi th sciatica, left side M54.42 ; Lumbago with sciatica, right side M54.41 and Other chronic pain G89.29 [place] [address] [address] Aug, Lumbago with sciatica, unspecified side M54.40 [place] [address] [address] Aug, Type 2 diabetes mellitus with diabetic n europathy, without long-term current use of insulin E11.40 ; Hammer toe of left foot M20.42 ; Hypertension, benign I10 and Frequent headaches R51 [place] [address] [address] Jul, Lumbago with sciatica, unspecified side M54.40 [place] [address] [address] Jul, [place] [address] [address] Jul, Essential hypertension I10 and Controlle d type 2 diabetes mellitus without complication, without long-term current use of insulin E11.9 [place] [address] [address] Jul, Essential hypertension I10 ; Controlled type 2 diabetes mellitus without complication, without long-term current use of insulin E11.9 and BMI 40.0-44.9, adult Z68.41 [place] [address] [address] Jul, Dysfunction of left eustachian tube H69. 82 [place] [address] [address] Jul, Lumbago with sciatica, unspecified side M54.40 [facility] [id number] [place] [id number] Jun, Dental examination Z01.20 [place] [address] [address] Jun, Lumbago with sciatica, unspecified side M54.40 and Encounter for immunization Z23 [place] [address] [address] Jun, Dysfunction of left eustachian tube H69. 82 [facility] [address] [address] [id number] [id number] Jun, Dental examination Z01.20 [facility] [id number] [place] [address] Jun, Other chronic pain G89.29 [facility] [address] [facility] [place] [id number] Jun, Dental examination Z01.20 [facility] [address] [address] Jun, [facility] [address] [place] [address] [address] Jun, Bronchitis J40 ; Dysfunction of left eus tachian tube H69.82 and BMI 45.0-49.9, adult Z68.42 [place] [address] [address] Jun, Lumbago with sciatica, unspecified side M54.40 [place] [address] [address] May, Type 2 diabetes mellitus with diabetic n europathy, without long-term current use of insulin E11.40 and Hypertension, benign I10 [place] [address] [address] May, Lumbago with sciatica, unspecified side M54.40 [facility] [address] [facility] [id number] [place] [address] Apr, [facility] [address] [address] Apr, Controlled type 2 diabetes mellitus with out complication, without long-term current use of insulin E11.9 ; Insect bite (nonvenomous), right ankle, initial encounter S90.561A ; Local infection of the skin and subcutaneous tissue, unspecified L08.9 ; Acute swimmer''s ear of left side H60.332 and BMI 45.0-49.9, adult Z68.42 [place] [address] [address] Apr, Lumbago with sciatica, unspecified side M54.40 [place] [address] [address] Mar, [place] [address] [address] Mar, Lumbago with sciatica, unspecified side M54.40 [place] [address] [address] Feb, Lumbago with sciatica, unspecified side M54.40 [place] [address] [address] Feb, BMI 45.0-49.9, adult Z68.42 and Obstruct jaida sleep apnea syndrome G47.33 [place] [address] [address] January, Lumbar neuritis M54.16 [place] [address] [address] January, Lumbago with sciatica, unspecified side M54.40 [place] [address] [address] Dec, Controlled type 2 diabetes mellitus with out complication, without long-term current use of insulin E11.9 ; Erectile dysfunction due to diseases classified elsewhere N52.1 and Mood disorder F39 [place] [address] [address] Dec, Lumbago with sciatica, unspecified side M54.40 [place] [address] [address] Dec, Obstructive sleep apnea syndrome G47.33 [place] [address] [address] Nov, Lumbago with sciatica, unspecified side M54.40 ; Hypertension, benign I10 and Mood disorder F39 [place] [address] [address] Nov, Other chronic pain G89.29 [facility] [address] [address] Nov, Lumbago with sciatica, unspecified side M54.40 [facility] [address] [id number] Nov, Dental examination Z01.20 [facility] [address] [address] Oct, [facility] [address] [address] Oct, Lumbago with sciatica, unspecified side M54.40 [facility] [address] [address] Oct, Lumbago with sciatica, unspecified side M54.40 [facility] [address] [address] Oct, [facility] [address] [address] Oct, [facility] [address] [id number] Oct, Dental examination Z01.20 [facility] [address] [address] Oct, [facility] [address] [address] Oct, Pain in right knee M25.561 [facility] [address] [address] Sep, [facility] [address] [address] Sep, Other chronic pain G89.29 [facility] [address] [address] Sep, Lumbago with sciatica, unspecified side M54.40 [facility] [address] [address] Sep, [facility] [id number] [place] [address] Sep, Viral URI J06.9 and BMI 45.0 -49.9, adult Z68.42 [facility] [id number] [place] [address] Aug, Foreign body hand S60.559A a nd BMI 45.0-49.9, adult Z68.42 [facility] [address] [address] Aug, [place] [address] [address] Aug, Lumbago with sciatica, unspecified side M54.40 [place] [address] [address] Aug, Vertigo R42 ; Dysfunction of both eustac hian tubes H69.83 ; Low back pain M54.5 and Other chronic pain G89.29 [facility] [id number] [place] [address] Aug, Dizziness R42 and Acute bila teral otitis media H66.93 [place] [address] [address] Aug, Lumbago with sciatica, unspecified side M54.40 [facility] [address] [facility] [place] [id number] Jul, Dental examination Z01.20 [place] [address] [address] Jul, [place] [address] [address] Jul, [place] [address] [address] Jul, Dysfunction of both eustachian tubes H69 .83 [place] [address] [address] Jul, Controlled type 2 diabetes mellitus with out complication, without long-term current use of insulin E11.9 [facility] [address] [address] Jul, Controlled type 2 diabetes mellitus with out complication, without long-term current use of insulin E11.9 [facility] [address] [facility] [id number] [address] [place] [address] Jul, Dizziness R42 and BMI 40.0-4 4.9, adult Z68.41 [facility] [address] [address] Jul, Controlled type 2 diabetes mellitus with out complication, without long-term current use of insulin E11.9 [facility] [address] [address] Jul, Lumbago with sciatica, unspecified side M54.40 [facility] [address] [id number] Jul, Dental examination Z01.20 [facility] [address] [address] Jun, [facility] [address] [id number] Jun, Dental examination Z01.20 [facility] [address] [address] Jun, Controlled type 2 diabetes mellitus with out complication, without long-term current use of insulin E11.9 [facility] [address] [address] Jun, Lumbago with sciatica, unspecified side M54.40 [facility] [address] [id number] May, Dental examination Z01.20 [facility] [address] [address] May, Controlled type 2 diabetes mellitus with out complication, without long-term current use of insulin E11.9 [facility] [address] [id number] May, Dental examination Z01.20 [facility] [address] [address] 18 May, 2017 Bronchitis J40 ; Dry mouth R68.2 ; Non m orbid obesity E66.9 and Controlled type 2 diabetes mellitus without complication, without long-term current use of insulin E11.9 [facility] [address] [address] 16 May, 2017 Encounter for immunization Z 23 [place] [address] [address] 07 May, 2017 Lumbago with sciatica, unspecified side M54.40 [place] [address] [address] 05 May, 2017 [facility] [address] [id number] Apr, Dental examination Z01.20 [facility] [address] [address] Apr, Lumbago with sciatica, unspecified side M54.40 [facility] [address] [address] Mar, Lumbago with sciatica, left side M54.42 [place] [address] [address] Mar, [place] [address] [address] Mar, Lumbar neuritis M54.16 [facility] [address] [address] Mar, [facility] [address] [id number] Mar, Dental examination Z01.20 [facility] [address] [address] Mar, MELE (obstructive sleep apnea) G47.33 ; N europathy involving both lower extremities G57.93 and Frequent headaches R51 [place] [address] [address] Mar, Lumbago with sciatica, unspecified side M54.40 [place] [address] [address] Feb, Lumbago with sciatica, unspecified side M54.40 and Controlled type 2 diabetes mellitus without complication, without long-term current use of insulin E11.9 [place] [address] [address] January, Hypertension, benign I10 and Bilateral l ow back pain with sciatica, sciatica laterality unspecified M54.40 [place] [address] [address] January, Hypertension, benign I10 ; Lumbago with sciatica, unspecified side M54.40 ; Other chronic pain G89.29 and Controlled type 2 diabetes mellitus without complication, without long-term current use of insulin E11.9 [place] [address] [address] January, Lumbar neuritis M54.16 [place] [address] [address] January, [place] [address] [address] Dec, Lumbago with sciatica, right side M54.41 and Lumbar neuritis M54.16 [place] [address] [address] Dec, Lumbar neuritis M54.16 [place] [address] [address] Dec, Lumbar neuritis M54.16 [place] [address] [address] Nov, Lumbar neuritis M54.16 ; Lumbago with sc iatica, right side M54.41 ; Controlled type 2 diabetes mellitus without complication, without long-term current use of insulin E11.9 and Rash and nonspecific skin eruption R21 [place] [address] [address] 09 Nov, 2016 Lumbar neuritis M54.16 and Poison miroslava L2 3.7 [place] [address] [address] Oct, Lumbar neuritis M54.16 ; Coughing R05 an d Mood disorder F39 [address] [address] Sep, Lumbago with sciatica, right side M54.[address] [address] Sep, Adjustment disorder with disturbance of emotion F43.29 and Pain management R52 [place] [address] [address] Sep, [place] [address] [address] Sep, [place] [address] [address] Sep, Controlled type 2 diabetes mellitus with out complication, without long-term current use of insulin E11.9 and Lumbago with sciatica, unspecified side M54.[address] [address] Aug, Controlled type 2 diabetes mellitus with out complication, without long-term current use of insulin E11.9 ; Pain in right knee M25.561 ; Pain in left knee M25.562 ; Other chronic pain G89.29 ; Lumbago with sciatica, right side M54.41 ; Neck pain M54.2 and Encounter for immunization Z23 [place] [address] [address] Jul, [place] [address] [address] [place] [address] Jul, Controlled type 2 diabetes mellitus with out complication, without long-term current use of insulin E11.9 [place] [address] [address] 17 Jul, 2016 [facility] [address] [address] Jul, [place] [address] [address] Jul, Lumbago with sciatica, left side M54.42 ; Lumbago with sciatica, right side M54.41 and Other chronic pain G89.29 [place] [address] [address] Jul, [place] [address] [address] Jul, [place] [address] [address] Jun, [place] [address] [address] Jun, Lumbago with sciatica, right side M54.41 and Other chronic pain G89.29 [place] [address] [address] Jun, Cervicalgia M54.2 ; Lumbago with sciatic a, unspecified side M54.40 and Other chronic pain G89.29 [place] [address] [address] 15 May, 2016 Pain in right knee M25.561 ; Pain in lef t knee M25.562 and Other chronic pain G89.29 [place] [address] [address] 14 May, 2016 [place] [address] [address] 05 Apr, 2016 Other chronic pain G89.29 and Pain in ri ght knee M25.561 [place] [address] [address] Apr, Pain in right knee M25.561 [place] [address] [address] Mar, [place] [address] [address] Mar, Mood disorder F39 and Controlled type 2 diabetes mellitus without complication, without long-term current use of insulin E11.9 [place] [address] [address] Mar, Pain in right knee M25.561 ; Pain in lef t knee M25.562 ; Other chronic pain G89.29 ; Obstructive sleep apnea syndrome G47.33 ; Mood disorder F39 and Controlled type 2 diabetes mellitus without complication, without long-term current use of insulin E11.9 [place] [address] [address] Mar, [facility] [address] [id number] Feb, Dental examination Z01.20 [place] [address] [address] Feb, [place] [address] [address] Feb, Osteoarthritis of right knee, unspecifie d osteoarthritis type M17.9 [place] [address] [address] January, [facility] [address] [id number] January, Dental examination Z01.20 [place] [address] [address] January, [facility] [address] [id number] January, Dental examination Z01.20 and Caries K02 .9 [place] [address] [address] Dec, Encounter for other preprocedural examin ation Z01.818 [facility] [address] [address] Dec, [facility] [address] [address] Dec, Knee pain M25.569 [facility] [address] [address] Dec, Pain in right knee M25.561 [facility] [address] [address] Dec, [facility] [address] [address] Dec, [facility] [address] [address] Dec, Encounter for immunization Z23 [facility] [address] [address] Dec, [facility] [address] [address] Dec, [facility] [address] [address] Nov, [facility] [address] [address] Nov, Hypertension, benign I10 ; Cervicalgia M 54.2 ; Pain in right knee M25.561 and Pain in left knee M25.562 [facility] [address] [address] Oct, [facility] [address] [address] Oct, [facility] [address] [address] Oct, Osteoarthritis of both knees M17.0 [facility] [address] [address] Oct, [place] [address] [address] Oct, Low back pain M54.5 [place] [address] [address] Oct, Low back pain M54.5 ; Sciatica, unspecif ied side M54.30 ; Pain in right knee M25.561 ; Pain in left knee M25.562 ; Pain in right shoulder M25.511 and Pain in left shoulder M25.512 [place] [address] [address] Oct, [place] [address] [address] Sep, Pain in right hip M25.[address] [address] Sep, Acute upper respiratory infection, unspe cified J06.[address] [address] Aug, Acute upper respiratory infection, unspe cified J06.9 and Other viral agents as the cause of diseases classified elsewhere B97.[address] [address] Jul, Arthritis M19.[address] [address] Jun, Arthritis M19.90 ; Pain in right hip M25 .551 ; Pain in left hip M25.552 ; Bilateral low back pain with sciatica, sciatica laterality unspecified M54.40 ; Neck pain M54.2 ; Upper back pain M54.9 and Knee pain, unspecified laterality M25.[address] [address] 10 May, 2015 Osteoarthritis of both knees 715.[address] [address] May, Rash 782.1 [facility] [address] [address] Apr, Lumbar strain 847.2 [facility] [address] [address] Apr, Rash 782.1 [facility] [address] [address] Mar, Rash 782.1 [facility] [address] [address] Feb, Rash 782.1 ; Hemorrhoids 455.6 and Const ipation 564.00 [facility] [address] [address] Feb, Osteoarthritis of both knees 715.96 [facility] [address] [address] January, [facility] [address] [address] Dec, [facility] [address] [address] Dec, [facility] [address] [address] Dec, [facility] [address] [address] Nov, [facility] [address] [address] Nov, [facility] [address] [address] Nov, [facility] [address] [address] Nov, [facility] [address] [address] Nov, [facility] [address] [address] Nov, [facility] [place] [facility] [address] [facility] [id number] [place] [address] Oct, [facility] [place] [facility] [address] [id number] [place] [address] Oct, [facility] [place] [facility] [address] [id number] [place] [address] Oct, [facility] [place] [facility] [address] [id number] [place] [address] Oct, [facility] [place] [facility] [address] [id number] [place] [address] Oct, [facility] [place] [facility] [address] [id number] [place] [address] Oct, [facility] [place] [facility] [address] [id number] [place] [address] Oct, [facility] [place] [facility] [address] [id number] [place] [address] Oct, [facility] [place] [facility] [address] [id number] [place] [address] Oct, [facility] [place] [facility] [address] [id number] [place] [address] Oct, [facility] [place] [facility] [address] [id number] [place] [address] Oct, [facility] [place] [facility] [address] [id number] [place] [address] Sep, [facility] [place] [facility] [address] [id number] [place] [address] Sep, [facility] [place] [facility] [address] [id number] [place] [address] Sep, [facility] [place] [facility] [address] [id number] [place] [address] Sep, [facility] [place] [facility] [address] [id number] [place] [address] Sep, [facility] [place] [facility] [address] [id number] [place] [address] Sep, [facility] [place] [facility] [address] [id number] [place] [address] Aug, [facility] [place] [facility] [address] [id number] [place] [address] Aug, [facility] [place] [facility] [address] [id number] [place] [address] Aug, [facility] [place] [facility] [address] [id number] [place] [address] Aug, [facility] [place] [facility] [address] [id number] [place] [address] Aug, [facility] [place] [facility] [address] [id number] [place] [address] Aug, [facility] [place] [facility] [address] [id number] [place] [address] Aug, [facility] [place] [facility] [address] [id number] [place] [address] Aug, [facility] [place] [facility] [address] [id number] [place] [address] Aug, [facility] [place] [facility] [address] [id number] [place] [address] Aug, [facility] [place] [facility] [address] [id number] [place] [address] Jul, [facility] [place] [facility] [address] [id number] [place] [address] Jul, [facility] [place] [facility] [address] [id number] [place] [address] Jul, [facility] [place] [facility] [address] [id number] [place] [address] Jul, [facility] [place] [facility] [address] [id number] [place] [address] Jun, [facility] [place] [facility] [address] [id number] [place] [address] Jun, [facility] [place] [facility] [address] [facility] [id number] [place] [address] Jun, [facility] [place] [facility] [address] [facility] [id number] [place] [address] Jun, [facility] [place] [facility] [address] [id number] [place] [address] Jun, [facility] [place] [facility] [address] [facility] [id number] [place] [address] Jun, [facility] [place] [facility] [address] [facility] [id number] [place] [address] Jun, [facility] [place] [facility] [address] [id number] [place] [address] Jun, [facility] [place] [facility] [address] [id number] [place] [address] May, [facility] [place] [facility] [address] [id number] [place] [address] 24 May, 2014 [facility] [place] [facility] [address] [id number] [place] [address] 19 May, 2014 [facility] [place] [facility] [address] [id number] [place] [address] 19 May, 2014 [facility] [place] [facility] [address] [id number] [place] [address] 15 May, 2014 [facility] [place] [facility] [address] [id number] [place] [address] 15 May, 2013 [facility] [place] [facility] [address] [facility] [id number] [place] [address] 15 May, 2013 [facility] [place] [facility] [address] [id number] [place] [address] 15 May, 2014 [facility] [place] [facility] [address] [id number] [place] [address] Apr, [facility] [place] [facility] [address] [id number] [place] [address] Apr, [facility] [place] [facility] [address] [facility] [id number] [place] [address] Apr, [facility] [place] [facility] [address] [facility] [id number] [place] [address] Apr, [facility] [place] [facility] [address] [facility] [id number] [place] [address] Apr, [facility] [place] [facility] [address] [id number] [place] [address] Apr, [facility] [place] [facility] [address] [id number] [place] [address] Apr, [facility] [place] [facility] [address] [id number] [place] [address] Apr, [facility] [place] [facility] [address] [id number] [place] [address] Apr, [facility] [place] [facility] [address] [id number] [place] [address] Apr, [facility] [place] [facility] [address] [id number] [place] [address] Apr, [facility] [place] [facility] [address] [id number] [place] [address] Apr, [facility] [place] [facility] [address] [id number] [place] [address] Mar, [facility] [place] [facility] [address] [id number] [place] [address] Mar, [facility] [place] [facility] [address] [id number] [place] [address] Mar, [facility] [place] [facility] [address] [id number] [place] [address] Mar, [facility] [place] [facility] [address] [id number] [place] [address] Mar, [facility] [place] [facility] [address] [id number] [place] [address] Mar, [facility] [place] [facility] [address] [id number] [place] [address] Feb, [facility] [place] [facility] [address] [facility] [id number] [place] [address] Feb, [facility] [place] [facility] [address] [facility] [id number] [place] [address] Feb, [facility] [place] [facility] [address] [id number] [place] [address] Feb, [facility] [place] [facility] [address] [id number] [place] [address] Feb, [facility] [place] [facility] [address] [facility] [id number] [place] [address] Feb, [facility] [place] [facility] [address] [id number] [place] [address] Feb, [facility] [place] [facility] [address] [id number] [place] [address] Feb, [facility] [place] [facility] [address] [id number] [place] [address] Feb, [facility] [place] [facility] [address] [id number] [place] [address] Feb, [facility] [place] [facility] [address] [id number] [place] [address] Feb, [facility] [place] [facility] [address] [id number] [place] [address] Feb, [facility] [place] [facility] [address] [id number] [place] [address] Feb, [facility] [place] [facility] [address] [id number] [place] [address] Feb, [facility] [place] [facility] [address] [id number] [place] [address] January, [facility] [place] [facility] [address] [id number] [place] [address] January, [facility] [place] [facility] [address] [id number] [place] [address] January, [facility] [place] [facility] [address] [id number] [place] [address] January, [facility] [place] [facility] [address] [facility] [id number] [facility] [address] January, [facility] [place] [facility] [address] [facility] [id number] [facility] [place] [address] January, [facility] [place] [facility] [address] [id number] [facility] [address] Dec, [facility] [place] [facility] [address] [id number] [place] [address] Dec, [facility] [place] [facility] [address] [facility] [id number] [place] [address] Dec, [facility] [place] [facility] [address] [id number] [place] [address] Dec, [facility] [place] [facility] [address] [id number] [facility] [address] Dec, [facility] [place] [facility] [address] [id number] [facility] [address] Dec, [facility] [place] [facility] [address] [facility] [id number] [facility] [address] Dec, [facility] [place] [facility] [address] [id number] [place] [address] Dec, [facility] [place] [facility] [address] [id number] [place] [address] Nov, [facility] [place] [facility] [address] [id number] [facility] [address] Nov, [facility] [place] [facility] [address] [facility] [id number] [facility] [address] Nov, [facility] [place] [facility] [address] [id number] [place] [address] Nov, [facility] [place] [facility] [address] [id number] [facility] [address] Nov, [facility] [place] [facility] [address] [id number] [facility] [address] Nov, [facility] [place] [facility] [address] [facility] [id number] [place] [address] Nov, [facility] [place] [facility] [address] [facility] [id number] [place] [address] Nov, [facility] [place] [facility] [address] [id number] [place] [address] Oct, [facility] [place] [facility] [address] [id number] [place] [address] Oct, [facility] [place] [facility] [address] [id number] [place] [address] Oct, [facility] [place] [facility] [address] [id number] [place] [address] Oct, [facility] [place] [facility] [address] [id number] [place] [address] Oct, [facility] [place] [facility] [address] [id number] [place] [address] Oct, [facility] [place] [facility] [address] [id number] [place] [address] Oct, [facility] [place] [facility] [address] [id number] [place] [address] Oct, [facility] [place] [facility] [address] [id number] [place] [address] Oct, [facility] [place] [facility] [address] [id number] [place] [address] Oct, [facility] [place] [facility] [address] [id number] [place] [address] Sep, [facility] [place] [facility] [address] [id number] [place] [address] Sep, [facility] [place] [facility] [address] [id number] [place] [address] Sep, [facility] [place] [facility] [address] [id number] [place] [address] Sep, [facility] [place] [facility] [address] [id number] [place] [address] Sep, [facility] [place] [facility] [address] [id number] [place] [address] Sep, [facility] [place] [facility] [address] [id number] [place] [address] Aug, [facility] [place] [facility] [address] [id number] [place] [address] Aug, [facility] [place] [facility] [address] [id number] [place] [address] Aug, [facility] [place] [facility] [address] [id number] [place] [address] Aug, [facility] [place] [facility] [address] [id number] [place] [address] Aug, [facility] [place] [facility] [address] [id number] [place] [address] Aug, [facility] [place] [facility] [address] [id number] [place] [address] Aug, [facility] [place] [facility] [address] [id number] [place] [address] Aug, [facility] [place] [facility] [address] [id number] [place] [address] Jul, [facility] [place] [facility] [address] [id number] [place] [address] Jul, [facility] [place] [facility] [address] [id number] [place] [address] Jul, [facility] [place] [facility] [address] [id number] [place] [address] Jul, [facility] [place] [facility] [address] [id number] [place] [address] Jul, [facility] [place] [facility] [address] [id number] [place] [address] Jul, [facility] [place] [facility] [address] [id number] [place] [address] Jun, [facility] [place] [facility] [address] [facility] [id number] [place] [address] Jun, [facility] [place] [facility] [address] [facility] [id number] [place] [address] Jun, [facility] [place] [facility] [address] [facility] [id number] [place] [address] May, [facility] [place] [facility] [address] [id number] [place] [address] May, [facility] [place] [facility] [address] [id number] [place] [address] May, [facility] [place] [facility] [address] [id number] [place] [address] Apr, [facility] [place] [facility] [address] [id number] [place] [address] Apr, [facility] [place] [facility] [address] [id number] [place] [address] Apr, [facility] [place] [facility] [address] [id number] [place] [address] Apr, [facility] [place] [facility] [address] [id number] [place] [address] Mar, [facility] [place] [facility] [address] [id number] [place] [address] Mar, [facility] [place] [facility] [address] [id number] [place] [address] Mar, [facility] [place] [facility] [address] [id number] [place] [address] Mar, [facility] [place] [facility] [address] [id number] [place] [address] Feb, [facility] [place] [facility] [address] [id number] [place] [address] Feb, [facility] [place] [facility] [address] [id number] [place] [address] Feb, [facility] [place] [facility] [address] [id number] [place] [address] Feb, [facility] [address] [id number] [place] [address] January, [facility] [address] [id number] [place] [address] January, [facility] [place] [facility] [address] [id number] [place] [address] January, [facility] [address] [id number] [place] [address] Nov, [facility] [place] [facility] [address] [id number] [place] [address] Nov, [facility] [address] [id number] [place] [address] Oct, [facility] [place] [facility] [address] [id number] [place] [address] Oct, [facility] [place] [facility] [address] [id number] [place] [address] Oct, [facility] [place] [facility] [address] [id number] [place] [address] Oct, [facility] [place] [facility] [address] [id number] [place] [address] Sep, [facility] [place] [facility] [address] [id number] [place] [address] Sep, [facility] [place] [facility] [address] [id number] [place] [address] Sep, [facility] [place] [facility] [address] [id number] [place] [address] Aug, [facility] [place] [facility] [address] [id number] [place] [address] Aug, [facility] [place] [facility] [address] [id number] [place] [address] Aug, [facility] [place] [facility] [address] [id number] [place] [address] Aug, [facility] [place] [facility] [address] [id number] [place] [address] Aug, [facility] [place] [facility] [address] [id number] [place] [address] Aug, [facility] [place] [facility] [address] [id number] [place] [address] Jul, [facility] [place] [facility] [address] [id number] [place] [address] Jul, [facility] [place] [facility] [address] [id number] [place] [address] Jun, [facility] [place] [facility] [address] [id number] [place] [address] Jun, [facility] [place] [facility] [address] [id number] [place] [address] Jun, [facility] [place] [facility] [address] [id number] [place] [address] Apr, [facility] [place] [facility] [address] [id number] [place] [address] Apr, [facility] [place] [facility] [address] [id number] [place] [address] Mar, [facility] [place] [facility] [address] [id number] [place] [address] Mar, [facility] [place] [facility] [address] [id number] [place] [address] Mar, [facility] [place] [facility] [address] [id number] [place] [address] Mar, [facility] [place] [facility] [address] [id number] [place] [address] Feb, [facility] [place] [facility] [id number] [place] [address] Feb, [facility] [place] [facility] [address] [id number] [place] [address] Feb, [facility] [place] [facility] [address] [id number] [place] [address] January, [facility] [place] [facility] [address] [id number] [place] [address] January, [facility] [place] [facility] [address] [id number] [place] [address] January, [facility] [place] [facility] [address] [id number] [place] [address] January, [facility] [place] [facility] [id number] [place] [address] Dec, [facility] [place] [facility] [address] [id number] [place] [address] Dec, [facility] [place] [facility] [address] [id number] [place] [address] Nov, [facility] [place] [facility] [address] [id number] [place] [address] Nov, [facility] [place] [facility] [address] [id number] [place] [address] Oct, [facility] [place] [facility] [address] [id number] [place] [address] Oct, [facility] [place] [facility] [address] [id number] [place] [address] Sep, [facility] [place] [facility] [address] [id number] [place] [address] Sep, [facility] [place] [facility] [address] [id number] [place] [address] Sep, [facility] [place] [facility] [address] [id number] [place] [address] Sep, [facility] [place] [facility] [address] [id number] [place] [address] Aug, [facility] [place] [facility] [address] [id number] [place] [address] Aug, [facility] [place] [facility] [address] [id number] [place] [address] Aug, [facility] [place] [facility] [address] [id number] [place] [address] Jul, [facility] [id number] [place] [address] Aug, [facility] [id number] [place] [address] Aug, [facility] [id number] [place] [address] Aug, [facility] [id number] [place] [address] Aug, [facility] [id number] [place] [address] Jul, [facility] [address] [address] Jul, [facility] [address] [address] Jul, [facility] [address] [address] Jun, [facility] [id number] [place] [address] Jun, [facility] [address] [address] Jun, [facility] [id number] [place] [address] Apr, [facility] [address] [address] Mar, IMMUNIZATIONS No Known Immunizations SOCIAL HISTORY Never Assessed REASON FOR VISIT PLAN OF CARE VITAL SIGNS Height 66 in 2013-10-24 Weight 252 lbs 2013-10-24 Temperature 100.3 degrees Fahrenheit 2013-10-24 Heart Rate 104 bpm 2013-10-24 Respiratory Rate 20 2013-10-24 Blood pressure systolic 150 mmHg 2013-10-24 Blood pressure diastolic 104 mmHg 2013-10-24 MEDICATIONS Unknown Medications RESULTS No Results PROCEDURES Procedure Date Ordered Result Body Site STREP A ASSAY W/OPTIC Oct 24, 2013 INFLUENZA ASSAY W/OPTIC Oct 24, 2013 INSTRUCTIONS MEDICATIONS ADMINISTERED No Known Medications [...]
--- OUTSIDE RECORDS SUMMARY | 2020-03-18 15:12 | XMS REPORT ---
Author Author George SHERMAN Organization [facility] Address [address] [place] [address] Care Team Providers Care Associate Curator Name Role Phone NICA SHERMAN Unavailable PROBLEMS Type Condition ICD9-CM Code [id number] Code Onset Dates Condition S tatus SNOMED Code Problem Hypertension, benign I10 Active 71921650 Problem Other chronic pain G89.29 Active 8 7736801 Problem Lumbago with sciatica, unspecified side M54.40 Active 808200800 Problem Controlled type 2 diabetes m ellitus without complication, without long- term current use of insulin E11.9 Active 903351398 Problem Lumbago with sciatica, right side M54.41 Active 400240850 Problem Adjustment disorder with disturbance of emotion F4 3.29 Active 12849754 Problem MELE (obstructive sleep apnea) G47.33 Active 68545037 Problem Non morbid obesity E66.9 Active 4 66300708 Problem Hammer toe of left foot M20.42 Active 139704430 Problem Mood disorder F39 Active 167464 05 Problem Deformity of left foot M21.962 Active 394715958 Problem Lumbago with sciatica, left side M54.42 Active 700860985 Problem Erectile dysfunction due to diseases classified elsewhere N52.1 Active 440326765 Problem Obstructive sleep apnea syndrome G47.33 Active 35891837 Problem Type 2 diabetes mellitus wit h diabetic neuropathy, without long-term current use of insulin E11.40 Active 02833 006 Problem Essential hypertension I10 Active 17171880 ALLERGIES No Information ENCOUNTERS Encounter Location Date Diagnosis [facility] [address] [id number] [place] [address] Nov, [facility] [address] [id number] [place] [address] Sep, [facility] [address] [id number] [place] [address] Aug, [facility] [address] [address] Jul, Lumbago with sciatica, unspecified side M54.40 [facility] [id number] [place] [address] Jun, Lumbago with sciatica, unspecified side M54.40 [facility] [address] [address] Jun, URI, acute J06.9 [place] [address] [address] May, Lumbago with sciatica, unspecified side M54.40 [facility] [address] [address] May, [facility] [address] [address] May, Type 2 diabetes mellitus with diabetic n europathy, without long-term current use of insulin E11.40 and Hammer toe of left foot M20.42 [place] [id number] [place] [address] May, [facility] [address] [address] May, [facility] [address] [address] May, [facility] [id number] [place] [address] Apr, Lumbago with sciatica, unspecified side M54.40 [facility] [id number] [place] [address] Apr, [facility] [id number] [place] [address] Apr, [facility] [address] [place] [address] Apr, Hammer toe of left foot M20. 42 ; Chest pain R07.9 ; Preoperative examination Z01.818 and Morbid obesity E66.01 [place] [address] [address] Apr, Morbid obesity E66.01 ; Bronchitis J40 a nd High risk medications (not anticoagulants) long-term use Z79.899 [place] [address] [address] Apr, Lumbago with sciatica, unspecified side M54.40 [place] [address] [address] Apr, [place] [address] [address] Mar, Lumbar neuritis M54.16 and Morbid obesit y E66.01 [place] [address] [address] Mar, [place] [address] [address] Mar, [place] [address] [address] Mar, Lumbago with sciatica, unspecified side M54.40 [place] [address] [address] Mar, Morbid obesity E66.01 ; Coughing R05 ; 2 + pitting edema R60.9 and Controlled type 2 diabetes mellitus without complication, without long-term current use of insulin E11.9 [place] [address] [address] Feb, [place] [address] [address] Feb, Lumbago with sciatica, unspecified side M54.40 [place] [address] [address] Feb, [place] [address] [address] Feb, Controlled type 2 diabetes mellitus with out complication, without long-term current use of insulin E11.9 and Morbid obesity E66.01 [place] [address] [address] January, Deformity of left foot M21.962 [place] [address] [address] January, [place] [address] [address] January, Lumbago with sciatica, unspecified side M54.40 [place] [address] [address] January, [place] [address] [address] January, Lumbago with sciatica, unspecified side M54.40 [place] [address] [address] January, [place] [address] [address] January, Acute right-sided thoracic back pain M54 .6 [place] [address] [address] January, Acute right-sided thoracic back pain M54 .6 [place] [address] [address] January, Chest pain, unspecified type R07.9 ; Mor bid obesity E66.01 and Scabies B86 [place] [address] [address] Dec, Lumbago with sciatica, unspecified side M54.40 [place] [address] [address] Dec, Toenail fungus B35.1 [place] [address] [address] Dec, Toenail fungus B35.1 [place] [address] [address] Dec, Acute right-sided thoracic back pain M54 .6 [place] [address] [address] Dec, Lumbago with sciatica, unspecified side M54.40 [place] [address] [address] Nov, Hammer toe of left foot M20.42 ; Deformi ty of left foot M21.962 and Type 2 diabetes mellitus with diabetic neuropathy, without long-term current use of insulin E11.40 [facility] [address] [facility] [id number] [place] [address] Nov, Acute right-sided thoracic b ack pain M54.6 ; Morbid obesity E66.01 and Rt flank pain R10.9 [place] [address] [address] Nov, Lumbago with sciatica, unspecified side M54.40 [place] [address] [address] Oct, Lumbago with sciatica, unspecified side M54.40 [place] [address] [address] Sep, Lumbago with sciatica, unspecified side M54.40 [place] [address] [address] Sep, [place] [address] [address] Sep, BMI 40.0-44.9, adult Z68.41 ; Lumbago wi th sciatica, left side M54.42 ; Lumbago with sciatica, right side M54.41 and Other chronic pain G89.29 [place] [address] [address] Aug, Lumbago with sciatica, unspecified side M54.40 [place] [address] [place] [address] Aug, Type 2 diabetes mellitus with diabetic n europathy, without long-term current use of insulin E11.40 ; Hammer toe of left foot M20.42 ; Hypertension, benign I10 and Frequent headaches R51 [place] [address] [place] [address] Jul, Lumbago with sciatica, unspecified side M54.40 [place] [address] [place] [address] Jul, [place] [address] [place] [address] Jul, Essential hypertension I10 and Controlle d type 2 diabetes mellitus without complication, without long-term current use of insulin E11.[address] [address] Jul, Essential hypertension I10 ; Controlled type 2 diabetes mellitus without complication, without long-term current use of insulin E11.9 and BMI 40.0-44.9, adult Z68.41 [place] [address] Jul, Dysfunction of left eustachian tube H69. [address] [address] Jul, Lumbago with sciatica, unspecified side M54.40 [facility] [id number] [place] [id number] Jun, Dental examination Z01.20 [place] [address] [address] Jun, Lumbago with sciatica, unspecified side M54.40 and Encounter for immunization Z23 [address] [address] Jun, Dysfunction of left eustachian tube H69. [address] [facility] [id number] [place] [id number] Jun, Dental examination Z01.20 [facility] [id number] [place] [address] Jun, Other chronic pain G89.29 [facility] [address] [facility] [place] [id number] Jun, Dental examination Z01.20 [facility] [address] [address] Jun, [place] [address] [address] Jun, Bronchitis J40 ; Dysfunction of left eus tachian tube H69.82 and BMI 45.0-49.9, adult Z68.42 [place] [address] [address] Jun, Lumbago with sciatica, unspecified side M54.40 [facility] [address] [address] May, Type 2 diabetes mellitus with diabetic n europathy, without long-term current use of insulin E11.40 and Hypertension, benign I10 [place] [address] [address] May, Lumbago with sciatica, unspecified side M54.40 [facility] [address] [facility] [id number] [place] [address] Apr, [facility] [address] [address] Apr, Controlled type 2 diabetes mellitus with out complication, without long-term current use of insulin E11.9 ; Insect bite (nonvenomous), right ankle, initial encounter S90.561A ; Local infection of the skin and subcutaneous tissue, unspecified L08.9 ; Acute swimmer''s ear of left side H60.332 and BMI 45.0-49.9, adult Z68.42 [place] [address] [address] Apr, Lumbago with sciatica, unspecified side M54.40 [place] [address] [address] Mar, [place] [address] [address] Mar, Lumbago with sciatica, unspecified side M54.40 [place] [address] [address] Feb, Lumbago with sciatica, unspecified side M54.40 [place] [address] [address] Feb, BMI 45.0-49.9, adult Z68.42 and Obstruct jaida sleep apnea syndrome G47.33 [place] [address] [address] January, Lumbar neuritis M54.16 [place] [address] [address] January, Lumbago with sciatica, unspecified side M54.40 [place] [address] [address] Dec, Controlled type 2 diabetes mellitus with out complication, without long-term current use of insulin E11.9 ; Erectile dysfunction due to diseases classified elsewhere N52.1 and Mood disorder F39 [place] [address] [address] Dec, Lumbago with sciatica, unspecified side M54.40 [place] [address] [address] Dec, Obstructive sleep apnea syndrome G47.33 [place] [address] [address] Nov, Lumbago with sciatica, unspecified side M54.40 ; Hypertension, benign I10 and Mood disorder F39 [facility] [address] [address] Nov, Other chronic pain G89.29 [facility] [address] [address] Nov, Lumbago with sciatica, unspecified side M54.40 [facility] [address] [id number] Nov, Dental examination Z01.20 [facility] [address] [address] Oct, [facility] [address] [address] Oct, Lumbago with sciatica, unspecified side M54.40 [facility] [address] [address] Oct, Lumbago with sciatica, unspecified side M54.40 [facility] [address] [address] Oct, [facility] [address] [address] Oct, [facility] [address] [id number] Oct, Dental examination Z01.20 [facility] [address] [address] Oct, [facility] [address] [address] Oct, Pain in right knee M25.561 [facility] [address] [address] Sep, [facility] [address] [address] Sep, Other chronic pain G89.29 [facility] [address] [address] Sep, Lumbago with sciatica, unspecified side M54.40 [facility] [address] [address] Sep, [facility] [address] [place] [id number] [place] [address] Sep, Viral URI J06.9 and BMI 45.0 -49.9, adult Z68.42 [facility] [address] [address] Aug, Foreign body hand S60.559A a nd BMI 45.0-49.9, adult Z68.42 [place] [address] [address] Aug, [place] [address] [address] Aug, Lumbago with sciatica, unspecified side M54.40 [place] [address] [address] Aug, Vertigo R42 ; Dysfunction of both eustac hian tubes H69.83 ; Low back pain M54.5 and Other chronic pain G89.29 [facility] [address] [address] Aug, Dizziness R42 and Acute bila teral otitis media H66.93 [place] [address] [address] Aug, Lumbago with sciatica, unspecified side M54.40 [facility] [address] [facility] [place] [id number] Jul, Dental examination Z01.20 [place] [address] [address] Jul, [place] [address] [address] Jul, [facility] [address] [address] Jul, Dysfunction of both eustachian tubes H69 .83 [facility] [address] [address] Jul, Controlled type 2 diabetes mellitus with out complication, without long-term current use of insulin E11.9 [facility] [address] [address] Jul, Controlled type 2 diabetes mellitus with out complication, without long-term current use of insulin E11.9 [facility] [address] [facility] [id number] [address] [place] [address] Jul, Dizziness R42 and BMI 40.0-4 4.9, adult Z68.41 [place] [address] [address] Jul, Controlled type 2 diabetes mellitus with out complication, without long-term current use of insulin E11.9 [place] [address] [address] Jul, Lumbago with sciatica, unspecified side M54.40 [facility] [address] [id number] Jul, Dental examination Z01.20 [place] [address] [address] Jun, [facility] [address] [id number] Jun, Dental examination Z01.20 [place] [address] [address] Jun, Controlled type 2 diabetes mellitus with out complication, without long-term current use of insulin E11.9 [place] [address] [address] Jun, Lumbago with sciatica, unspecified side M54.40 [facility] [address] [id number] May, Dental examination Z01.20 [place] [address] [address] 21 May, 2017 Controlled type 2 diabetes mellitus with out complication, without long-term current use of insulin E11.9 [facility] [address] [id number] 19 May, 2017 Dental examination Z01.20 [facility] [address] [address] 18 May, 2017 Bronchitis J40 ; Dry mouth R68.2 ; Non m orbid obesity E66.9 and Controlled type 2 diabetes mellitus without complication, without long-term current use of insulin E11.9 [facility] [address] [address] 16 May, 2017 Encounter for immunization Z 23 [place] [address] [address] 07 May, 2017 Lumbago with sciatica, unspecified side M54.40 [place] [address] [address] 05 May, 2017 [facility] [address] [id number] Apr, Dental examination Z01.20 [place] [address] [address] 09 Apr, 2017 Lumbago with sciatica, unspecified side M54.40 [facility] [address] [address] Mar, Lumbago with sciatica, left side M54.42 [facility] [address] [address] Mar, [place] [address] [address] Mar, Lumbar neuritis M54.16 [facility] [address] [address] Mar, [facility] [address] [id number] Mar, Dental examination Z01.20 [place] [address] [address] Mar, MELE (obstructive sleep apnea) G47.33 ; N europathy involving both lower extremities G57.93 and Frequent headaches R51 [place] [address] [address] Mar, Lumbago with sciatica, unspecified side M54.40 [place] [address] [address] Feb, Lumbago with sciatica, unspecified side M54.40 and Controlled type 2 diabetes mellitus without complication, without long-term current use of insulin E11.9 [place] [address] [address] January, Hypertension, benign I10 and Bilateral l ow back pain with sciatica, sciatica laterality unspecified M54.40 [place] [address] [address] January, Hypertension, benign I10 ; Lumbago with sciatica, unspecified side M54.40 ; Other chronic pain G89.29 and Controlled type 2 diabetes mellitus without complication, without long-term current use of insulin E11.9 [place] [address] [address] January, Lumbar neuritis M54.16 [place] [address] [address] January, [place] [address] [address] Dec, Lumbago with sciatica, right side M54.41 and Lumbar neuritis M54.16 [place] [address] [address] Dec, Lumbar neuritis M54.16 [place] [address] [address] Dec, Lumbar neuritis M54.16 [place] [address] [address] Nov, Lumbar neuritis M54.16 ; Lumbago with sc iatica, right side M54.41 ; Controlled type 2 diabetes mellitus without complication, without long-term current use of insulin E11.9 and Rash and nonspecific skin eruption R21 [place] [address] [address] 09 Nov, 2016 Lumbar neuritis M54.16 and Poison miroslava L2 3.7 [place] [address] [address] Oct, Lumbar neuritis M54.16 ; Coughing R05 an d Mood disorder F39 [place] [address] [address] Sep, Lumbago with sciatica, right side M54.41 [place] [address] [address] Sep, Adjustment disorder with disturbance of emotion F43.29 and Pain management R52 [place] [address] [address] Sep, [place] [address] [address] Sep, [place] [address] [address] Sep, Controlled type 2 diabetes mellitus with out complication, without long-term current use of insulin E11.9 and Lumbago with sciatica, unspecified side M54.40 [place] [address] [address] 16 Aug, 2016 Controlled type 2 diabetes mellitus with out complication, without long-term current use of insulin E11.9 ; Pain in right knee M25.561 ; Pain in left knee M25.562 ; Other chronic pain G89.29 ; Lumbago with sciatica, right side M54.41 ; Neck pain M54.2 and Encounter for immunization Z23 [place] [address] [address] Jul, [facility] [address] [address] Jul, Controlled type 2 diabetes mellitus with out complication, without long-term current use of insulin E11.9 [facility] [address] [address] Jul, [facility] [address] [address] Jul, [facility] [address] [address] Jul, Lumbago with sciatica, left side M54.42 ; Lumbago with sciatica, right side M54.41 and Other chronic pain G89.29 [place] [address] [address] Jul, [facility] [address] [address] Jul, [facility] [address] [address] Jun, [facility] [address] [address] Jun, Lumbago with sciatica, right side M54.41 and Other chronic pain G89.29 [facility] [address] [address] Jun, Cervicalgia M54.2 ; Lumbago with sciatic a, unspecified side M54.40 and Other chronic pain G89.29 [facility] [address] [address] 15 May, 2016 Pain in right knee M25.561 ; Pain in lef t knee M25.562 and Other chronic pain G89.29 [facility] [address] [address] 14 May, 2016 [facility] [address] [address] Apr, Other chronic pain G89.29 and Pain in ri ght knee M25.561 [facility] [address] [address] Apr, Pain in right knee M25.561 [facility] [address] [address] Mar, [facility] [address] [address] Mar, Mood disorder F39 and Controlled type 2 diabetes mellitus without complication, without long-term current use of insulin E11.9 [place] [address] [address] Mar, Pain in right knee M25.561 ; Pain in lef t knee M25.562 ; Other chronic pain G89.29 ; Obstructive sleep apnea syndrome G47.33 ; Mood disorder F39 and Controlled type 2 diabetes mellitus without complication, without long-term current use of insulin E11.9 [place] [address] [address] Mar, [facility] [address] [id number] Feb, Dental examination Z01.20 [place] [address] [address] Feb, [place] [address] [address] Feb, Osteoarthritis of right knee, unspecifie d osteoarthritis type M17.9 [facility] [address] [address] January, [facility] [address] [id number] January, Dental examination Z01.20 [facility] [address] [address] January, [facility] [address] [id number] January, Dental examination Z01.20 and Caries K02 .9 [facility] [address] [address] Dec, Encounter for other preprocedural examin ation Z01.818 [facility] [address] [address] Dec, [facility] [address] [address] Dec, Knee pain M25.569 [place] [address] [address] Dec, Pain in right knee M25.561 [place] [address] [address] Dec, [facility] [address] [address] Dec, [facility] [address] [address] Dec, Encounter for immunization Z23 [place] [address] [address] Dec, [place] [address] [address] Dec, [facility] [address] [address] Nov, [place] [address] [address] Nov, Hypertension, benign I10 ; Cervicalgia M 54.2 ; Pain in right knee M25.561 and Pain in left knee M25.562 [place] [address] [address] Oct, [facility] [address] [address] Oct, [facility] [address] [address] Oct, Osteoarthritis of both knees M17.0 [place] [address] [address] Oct, [place] [address] [address] Oct, Low back pain M54.5 [place] [address] [address] Oct, Low back pain M54.5 ; Sciatica, unspecif ied side M54.30 ; Pain in right knee M25.561 ; Pain in left knee M25.562 ; Pain in right shoulder M25.511 and Pain in left shoulder M25.512 [place] [address] [address] Oct, [place] [address] [address] Sep, Pain in right hip M25.551 [place] [address] [address] Sep, Acute upper respiratory infection, unspe cified J06.9 [place] [address] [address] Aug, Acute upper respiratory infection, unspe cified J06.9 and Other viral agents as the cause of diseases classified elsewhere B97.89 [place] [address] [address] Jul, Arthritis M19.90 [place] [address] [address] Jun, Arthritis M19.90 ; Pain in right hip M25 .551 ; Pain in left hip M25.552 ; Bilateral low back pain with sciatica, sciatica laterality unspecified M54.40 ; Neck pain M54.2 ; Upper back pain M54.9 and Knee pain, unspecified laterality M25.569 [place] [address] [address] May, Osteoarthritis of both knees 715.96 [facility] [id number] [place] [address] May, Rash 782.1 [facility] [id number] [place] [address] Apr, Lumbar strain 847.2 [facility] [id number] [place] [address] Apr, Rash 782.1 [facility] [id number] [place] [address] Mar, Rash 782.1 [facility] [address] [address] Feb, Rash 782.1 ; Hemorrhoids 455.6 and Const ipation 564.00 [facility] [id number] [place] [address] Feb, Osteoarthritis of both knees 715.96 [facility] [id number] [place] [address] January, [facility] [id number] [place] [address] 28 Dec, 2014 [facility] [id number] [place] [address] Dec, [facility] [id number] [place] [address] Dec, [facility] [id number] [place] [address] Nov, [facility] [id number] [place] [address] Nov, [facility] [id number] [place] [address] Nov, [facility] [id number] [place] [address] Nov, [facility] [id number] [place] [address] Nov, [facility] [address] [id number] [place] [address] Nov, [facility] [address] [id number] [place] [address] Oct, 2014 [facility] [address] [id number] [place] [address] Oct, [facility] [address] [id number] [place] [address] Oct, 2014 [facility] [address] [id number] [place] [address] Oct, [facility] [address] [id number] [place] [address] Oct, 2014 [facility] [address] [id number] [place] [address] Oct, [facility] [address] [id number] [place] [address] Oct, [facility] [address] [id number] [place] [address] Oct, [facility] [address] [id number] [place] [address] Oct, [facility] [address] [id number] [place] [address] Oct, [facility] [address] [id number] [place] [address] Oct, [facility] [address] [id number] [place] [address] Sep, [facility] [address] [id number] [place] [address] Sep, [facility] [address] [id number] [place] [address] Sep, [facility] [address] [id number] [place] [address] Sep, [facility] [address] [id number] [place] [address] Sep, [facility] [address] [id number] [place] [address] Sep, [facility] [address] [id number] [place] [address] Aug, [facility] [address] [id number] [place] [address] Aug, [facility] [address] [facility] [id number] [place] [address] Aug, [facility] [address] [id number] [place] [address] Aug, [facility] [address] [id number] [place] [address] Aug, [facility] [address] [id number] [place] [address] Aug, [facility] [address] [id number] [place] [address] Aug, [facility] [address] [id number] [place] [address] Aug, [facility] [address] [id number] [place] [address] Aug, [facility] [address] [id number] [place] [address] Aug, [facility] [address] [id number] [place] [address] Jul, [facility] [address] [id number] [place] [address] Jul, [facility] [address] [id number] [place] [address] Jul, [facility] [address] [id number] [place] [address] Jul, [facility] [address] [id number] [place] [address] 24 Jun, 2014 [facility] [address] [facility] [id number] [place] [address] Jun, [facility] [address] [id number] [place] [address] Jun, [facility] [address] [id number] [place] [address] Jun, [facility] [address] [id number] [place] [address] Jun, [facility] [address] [id number] [place] [address] Jun, [facility] [address] [id number] [place] [address] Jun, [facility] [address] [id number] [place] [address] Jun, [facility] [address] [id number] [place] [address] 24 May, 2013 [facility] [address] [id number] [place] [address] 24 May, 2014 [facility] [address] [id number] [place] [address] 19 May, 2014 [facility] [address] [id number] [place] [address] 19 May, 2013 [facility] [address] [id number] [place] [address] 15 May, 2013 [facility] [address] [id number] [place] [address] 15 May, 2013 [facility] [address] [id number] [place] [address] 15 May, 2013 [facility] [address] [id number] [place] [address] 15 May, 2013 [facility] [address] [id number] [place] [address] Apr, [facility] [address] [id number] [place] [address] Apr, [facility] [address] [id number] [place] [address] Apr, [facility] [address] [id number] [place] [address] Apr, [facility] [address] [id number] [place] [address] Apr, [facility] [address] [id number] [place] [address] Apr, [facility] [address] [id number] [place] [address] Apr, [facility] [address] [id number] [place] [address] Apr, [facility] [address] [id number] [place] [address] Apr, [facility] [address] [id number] [place] [address] Apr, [facility] [address] [id number] [place] [address] Apr, [facility] [address] [id number] [place] [address] Apr, [facility] [address] [id number] [place] [address] Mar, [facility] [address] [id number] [place] [address] Mar, [facility] [address] [id number] [place] [address] Mar, [facility] [address] [id number] [place] [address] Mar, [facility] [address] [id number] [place] [address] Mar, [facility] [address] [id number] [place] [address] Mar, [facility] [address] [id number] [place] [address] Feb, [facility] [address] [facility] [id number] [place] [address] Feb, [facility] [address] [facility] [id number] [place] [address] Feb, [facility] [address] [id number] [place] [address] Feb, [facility] [address] [facility] [id number] [place] [address] Feb, [facility] [address] [facility] [id number] [place] [address] Feb, [facility] [address] [id number] [place] [address] Feb, [facility] [address] [id number] [place] [address] Feb, [facility] [address] [facility] [id number] [place] [address] Feb, [facility] [address] [id number] [place] [address] Feb, [facility] [address] [id number] [place] [address] Feb, [facility] [address] [id number] [place] [address] Feb, [facility] [address] [facility] [id number] [place] [address] Feb, [facility] [address] [id number] [place] [address] Feb, [facility] [address] [facility] [id number] [place] [address] January, [facility] [address] [id number] [place] [address] January, [facility] [address] [id number] [place] [address] January, [facility] [address] [facility] [id number] [place] [address] January, [facility] [address] [id number] [place] [address] January, [facility] [address] [id number] [place] [address] January, [facility] [address] [id number] [place] [address] Dec, [facility] [address] [id number] [place] [address] Dec, [facility] [address] [id number] [place] [address] Dec, [facility] [address] [id number] [place] [address] Dec, [facility] [address] [id number] [place] [address] Dec, [facility] [address] [id number] [place] [address] Dec, [facility] [address] [id number] [place] [address] Dec, [facility] [address] [id number] [place] [address] Dec, [facility] [address] [id number] [place] [address] Nov, [facility] [address] [id number] [place] [address] Nov, [facility] [address] [id number] [place] [address] Nov, [facility] [address] [id number] [place] [address] Nov, [facility] [address] [id number] [place] [address] Nov, [facility] [address] [facility] [id number] [place] [address] Nov, [facility] [address] [id number] [place] [address] Nov, [facility] [address] [id number] [place] [address] Nov, [facility] [address] [id number] [place] [address] Oct, [facility] [address] [facility] [id number] [place] [address] Oct, [facility] [address] [id number] [place] [address] Oct, [facility] [address] [id number] [place] [address] Oct, [facility] [address] [id number] [place] [address] Oct, [facility] [address] [id number] [place] [address] Oct, [facility] [address] [id number] [place] [address] Oct, [facility] [address] [id number] [place] [address] Oct, [facility] [address] [id number] [place] [address] Oct, [facility] [address] [id number] [place] [address] Oct, [facility] [address] [id number] [place] [address] Sep, [facility] [address] [id number] [place] [address] Sep, [facility] [address] [id number] [place] [address] Sep, [facility] [address] [id number] [place] [address] 14 Sep, 2013 [facility] [address] [id number] [place] [address] Sep, [facility] [address] [id number] [place] [address] Sep, [facility] [address] [id number] [place] [address] Aug, [facility] [address] [id number] [place] [address] Aug, [facility] [address] [id number] [place] [address] Aug, [facility] [address] [id number] [place] [address] Aug, [facility] [address] [id number] [place] [address] Aug, [facility] [address] [id number] [place] [address] Aug, [facility] [address] [id number] [place] [address] Aug, [facility] [address] [id number] [place] [address] Aug, [facility] [address] [id number] [place] [address] Jul, [facility] [address] [id number] [place] [address] Jul, [facility] [address] [id number] [place] [address] Jul, [facility] [id number] [place] [address] Jul, [facility] [address] [id number] [place] [address] Jul, [facility] [address] [id number] [place] [address] Jul, [facility] [address] [facility] [id number] [place] [address] Jun, [facility] [address] [id number] [place] [address] Jun, [facility] [address] [id number] [place] [address] Jun, [facility] [address] [id number] [place] [address] May, [facility] [address] [id number] [place] [address] May, [facility] [address] [id number] [place] [address] May, [facility] [address] [id number] [place] [address] Apr, [facility] [address] [id number] [place] [address] Apr, [facility] [address] [id number] [place] [address] Apr, [facility] [address] [id number] [place] [address] Apr, [facility] [address] [id number] [place] [address] Mar, [facility] [address] [id number] [place] [address] Mar, [facility] [address] [id number] [place] [address] Mar, [facility] [address] [id number] [place] [address] Mar, [facility] [address] [id number] [place] [address] Feb, [facility] [address] [id number] [place] [address] Feb, [facility] [address] [id number] [place] [address] Feb[facility] [address] [id number] [place] [address] Feb, [facility] [address] [id number] [place] [address] January, [facility] [address] [id number] [place] [address] January, [facility] [address] [id number] [place] [address] January, [facility] [address] [facility] [id number] [place] [address] Nov, [facility] [address] [id number] [place] [address] Nov, [facility] [address] [id number] [place] [address] Oct[facility] [address] [id number] [place] [address] Oct, [facility] [address] [id number] [place] [address] Oct, [facility] [address] [id number] [place] [address] Oct, [facility] [address] [id number] [place] [address] Sep, [facility] [address] [id number] [place] [address] Sep, [facility] [address] [id number] [place] [address] Sep, [facility] [address] [id number] [place] [address] Aug, [facility] [address] [id number] [place] [address] Aug, [facility] [address] [id number] [place] [address] Aug, [facility] [address] [id number] [place] [address] Aug, [facility] [address] [id number] [place] [address] Aug, [facility] [address] [id number] [place] [address] Aug, [facility] [address] [id number] [place] [address] Jul, [facility] [address] [id number] [place] [address] Jul, [facility] [address] [id number] [place] [address] Jun, [facility] [address] [id number] [place] [address] Jun, [facility] [address] [id number] [place] [address] Jun, [facility] [address] [id number] [place] [address] Apr, [facility] [address] [id number] [place] [address] Apr, [facility] [address] [id number] [place] [address] Mar, [facility] [address] [id number] [place] [address] Mar, [facility] [address] [id number] [place] [address] Mar, [facility] [address] [id number] [place] [address] Mar, [facility] [address] [id number] [place] [address] Feb, [facility] [address] [id number] [place] [address] Feb, [facility] [address] [id number] [place] [address] Feb, [facility] [address] [id number] [place] [address] January, [facility] [address] [id number] [place] [address] January, [facility] [address] [id number] [place] [address] January, [facility] [address] [id number] [place] [address] January, [facility] [address] [id number] [place] [address] Dec, [facility] [address] [id number] [place] [address] Dec, [facility] [address] [id number] [place] [address] Nov, [facility] [id number] [place] [address] Nov, [facility] [address] [id number] [place] [address] Oct, [facility] [address] [id number] [place] [address] Oct, [facility] [address] [id number] [place] [address] Sep, [facility] [address] [id number] [place] [address] Sep, [facility] [address] [id number] [place] [address] Sep, [facility] [address] [id number] [place] [address] Sep, [facility] [address] [id number] [place] [address] Aug, [facility] [address] [id number] [place] [address] Aug, [facility] [id number] [place] [address] Aug, [facility] [id number] [place] [address] Jul, [facility] [id number] [place] [address] Aug, [facility] [id number] [place] [address] Aug, [facility] [id number] [place] [address] Aug, [facility] [id number] [place] [address] Aug, [facility] [id number] [place] [address] Jul, [facility] [id number] [place] [address] Jul, [facility] [id number] [place] [address] Jul, [facility] [id number] [place] [address] Jun, [facility] [id number] [place] [address] Jun, [facility] [id number] [place] [address] Jun, [facility] [address] [address] Apr, [facility] [id number] [place] [address] Mar, IMMUNIZATIONS No Known Immunizations SOCIAL HISTORY Never Assessed REASON FOR VISIT PLAN OF CARE VITAL SIGNS MEDICATIONS Unknown Medications RESULTS No Results PROCEDURES Procedure Date Ordered Result Body Site THER/PROPH/DIAG INJ, SC/IM Nov 01, 2013 IM 5OOMG [place] Nov 01, 2013 INSTRUCTIONS MEDICATIONS ADMINISTERED No Known Medications [...]
--- OUTSIDE RECORDS SUMMARY | 2020-03-18 15:12 | XMS REPORT ---
Author Author George Marx Doctor Organization [facility] Address Unknown Phone Unavailable Care Team Providers Care Ripsaw Grader Name Role Phone Migration, Doctor Unavailable Unavailable PROBLEMS Type Condition ICD9-CM Code AVE66-IK Code Onset Dates Condition S tatus SNOMED Code Problem Hypertension, benign I10 Active 00120393 Problem Other chronic pain G89.29 Active 8 3724392 Problem Lumbago with sciatica, unspecified side M54.40 Active 985102224 Problem Controlled type 2 diabetes m ellitus without complication, without long- term current use of insulin E11.9 Active 285594381 Problem Lumbago with sciatica, right side M54.41 Active 215707099 Problem Adjustment disorder with disturbance of emotion F4 3.29 Active 21163975 Problem MELE (obstructive sleep apnea) G47.33 Active 84437659 Problem Non morbid obesity E66.9 Active 4 12933806 Problem Hammer toe of left foot M20.42 Active 397592321 Problem Mood disorder F39 Active 047611 05 Problem Deformity of left foot M21.962 Active 241722362 Problem Lumbago with sciatica, left side M54.42 Active 450617724 Problem Erectile dysfunction due to diseases classified elsewhere N52.1 Active 099052978 Problem Obstructive sleep apnea syndrome G47.33 Active 04660098 Problem Type 2 diabetes mellitus wit h diabetic neuropathy, without long-term current use of insulin E11.40 Active 83099 006 Problem Essential hypertension I10 Active 53114814 ALLERGIES No Information ENCOUNTERS Encounter Location Date Diagnosis [facility] [address] [id number] [place] [address] Nov, [facility] [id number] [place] [address] Sep, [facility] [address] [id number] [place] [address] Aug, [facility] [address] [facility] [place] [address] Jul, Lumbago with sciatica, unspecified side M54.40 [place] [address] [address] Jun, Lumbago with sciatica, unspecified side M54.40 [place] [address] [address] Jun, URI, acute J06.9 [place] [address] [address] May, Lumbago with sciatica, unspecified side M54.40 [place] [address] [address] May, [place] [address] [address] May, Type 2 diabetes mellitus with diabetic n europathy, without long-term current use of insulin E11.40 and Hammer toe of left foot M20.42 [place] [address] [address] May, [place] [address] [address] May, [place] [address] [address] May, [place] [address] [address] Apr, Lumbago with sciatica, unspecified side M54.40 [place] [address] [address] Apr, [place] [address] [address] Apr, [place] [address] [place] [address] Apr, Hammer toe of left foot M20. 42 ; Chest pain R07.9 ; Preoperative examination Z01.818 and Morbid obesity E66.01 [place] [address] [address] Apr, Morbid obesity E66.01 ; Bronchitis J40 a nd High risk medications (not anticoagulants) long-term use Z79.899 [place] [address] [address] Apr, Lumbago with sciatica, unspecified side M54.40 [place] [address] [address] Apr, [place] [address] [address] Mar, Lumbar neuritis M54.16 and Morbid obesit y E66.01 [place] [address] [address] Mar, [place] [address] [address] Mar, [place] [address] [address] Mar, Lumbago with sciatica, unspecified side M54.40 [place] [address] [address] Mar, Morbid obesity E66.01 ; Coughing R05 ; 2 + pitting edema R60.9 and Controlled type 2 diabetes mellitus without complication, without long-term current use of insulin E11.9 [place] [address] [address] Feb, [place] [address] [address] Feb, Lumbago with sciatica, unspecified side M54.40 [place] [address] [address] Feb, [address] [address] Feb, Controlled type 2 diabetes mellitus with out complication, without long-term current use of insulin E11.9 and Morbid obesity E66.01 [place] [address] [address] January, Deformity of left foot M21.962 [place] [address] [address] January, [facility] [address] [address] January, Lumbago with sciatica, unspecified side M54.40 [place] [address] [address] January, [place] [address] [address] January, Lumbago with sciatica, unspecified side M54.40 [place] [address] [address] January, [place] [address] [address] January, Acute right-sided thoracic back pain M54 .6 [place] [address] [address] January, Acute right-sided thoracic back pain M54 .6 [place] [address] [address] January, Chest pain, unspecified type R07.9 ; Mor bid obesity E66.01 and Scabies B86 [place] [address] [address] Dec, Lumbago with sciatica, unspecified side M54.40 [place] [address] [address] Dec, Toenail fungus B35.1 [place] [address] [address] Dec, Toenail fungus B35.1 [place] [address] [address] Dec, Acute right-sided thoracic back pain M54 .6 [place] [address] [address] Dec, Lumbago with sciatica, unspecified side M54.40 [facility] [address] [address] Nov, Hammer toe of left foot M20.42 ; Deformi ty of left foot M21.962 and Type 2 diabetes mellitus with diabetic neuropathy, without long-term current use of insulin E11.40 [facility] [address] [facility] [id number] [place] [address] Nov, Acute right-sided thoracic b ack pain M54.6 ; Morbid obesity E66.01 and Rt flank pain R10.9 [place] [address] [address] Nov, Lumbago with sciatica, unspecified side M54.40 [place] [address] [address] Oct, Lumbago with sciatica, unspecified side M54.40 [place] [address] [address] Sep, Lumbago with sciatica, unspecified side M54.40 [place] [address] [address] Sep, [place] [address] [address] Sep, BMI 40.0-44.9, adult Z68.41 ; Lumbago wi th sciatica, left side M54.42 ; Lumbago with sciatica, right side M54.41 and Other chronic pain G89.29 [place] [address] [address] Aug, Lumbago with sciatica, unspecified side M54.40 [place] [address] [address] Aug, Type 2 diabetes mellitus with diabetic n europathy, without long-term current use of insulin E11.40 ; Hammer toe of left foot M20.42 ; Hypertension, benign I10 and Frequent headaches R51 [place] [address] [address] Jul, Lumbago with sciatica, unspecified side M54.40 [place] [address] [address] Jul, [place] [address] [address] Jul, Essential hypertension I10 and Controlle d type 2 diabetes mellitus without complication, without long-term current use of insulin E11.9 [place] [address] [address] Jul, Essential hypertension I10 ; Controlled type 2 diabetes mellitus without complication, without long-term current use of insulin E11.9 and BMI 40.0-44.9, adult Z68.41 [place] [address] [address] Jul, Dysfunction of left eustachian tube H69. 82 [place] [address] [address] Jul, Lumbago with sciatica, unspecified side M54.40 [facility] [id number] [place] [id number] Jun, Dental examination Z01.20 [place] [address] [address] Jun, Lumbago with sciatica, unspecified side M54.40 and Encounter for immunization Z23 [place] [address] [address] Jun, Dysfunction of left eustachian tube H69. 82 [facility] [address] [facility] [address] [id number] [id number] Jun, Dental examination Z01.20 [facility] [id number] [place] [address] Jun, Other chronic pain G89.29 [facility] [address] [facility] [place] [id number] Jun, Dental examination Z01.20 [facility] [address] [address] Jun, [facility] [address] [place] [address] Jun, Bronchitis J40 ; Dysfunction of left eus tachian tube H69.82 and BMI 45.0-49.9, adult Z68.42 [place] [address] [address] Jun, Lumbago with sciatica, unspecified side M54.40 [place] [address] [address] May, Type 2 diabetes mellitus with diabetic n europathy, without long-term current use of insulin E11.40 and Hypertension, benign I10 [place] [address] [address] May, Lumbago with sciatica, unspecified side M54.40 [facility] [address] [facility] [id number] [place] [address] Apr, [facility] [address] [address] Apr, Controlled type 2 diabetes mellitus with out complication, without long-term current use of insulin E11.9 ; Insect bite (nonvenomous), right ankle, initial encounter S90.561A ; Local infection of the skin and subcutaneous tissue, unspecified L08.9 ; Acute swimmer''s ear of left side H60.332 and BMI 45.0-49.9, adult Z68.42 [place] [address] [address] Apr, Lumbago with sciatica, unspecified side M54.40 [place] [address] [address] Mar, [place] [address] [address] Mar, Lumbago with sciatica, unspecified side M54.40 [place] [address] [address] Feb, Lumbago with sciatica, unspecified side M54.40 [place] [address] [address] Feb, BMI 45.0-49.9, adult Z68.42 and Obstruct jiada sleep apnea syndrome G47.33 [place] [address] [address] January, Lumbar neuritis M54.16 [place] [address] [address] January, Lumbago with sciatica, unspecified side M54.40 [place] [address] [address] Dec, Controlled type 2 diabetes mellitus with out complication, without long-term current use of insulin E11.9 ; Erectile dysfunction due to diseases classified elsewhere N52.1 and Mood disorder F39 [place] [address] [address] Dec, Lumbago with sciatica, unspecified side M54.40 [place] [address] [address] Dec, Obstructive sleep apnea syndrome G47.33 [place] [address] [address] Nov, Lumbago with sciatica, unspecified side M54.40 ; Hypertension, benign I10 and Mood disorder F39 [place] [address] [address] Nov, Other chronic pain G89.29 [facility] [address] [address] Nov, Lumbago with sciatica, unspecified side M54.40 [facility] [address] [id number] Nov, Dental examination Z01.20 [facility] [address] [address] Oct, [facility] [address] [address] Oct, Lumbago with sciatica, unspecified side M54.40 [facility] [address] [address] Oct, Lumbago with sciatica, unspecified side M54.40 [facility] [address] [address] Oct, [facility] [address] [address] Oct, [facility] [address] [id number] Oct, Dental examination Z01.20 [facility] [address] [address] Oct, [facility] [address] [address] Oct, Pain in right knee M25.561 [facility] [address] [address] Sep, [facility] [address] [address] Sep, Other chronic pain G89.29 [facility] [address] [address] Sep, Lumbago with sciatica, unspecified side M54.40 [facility] [address] [address] Sep, [facility] [id number] [place] [address] Sep, Viral URI J06.9 and BMI 45.0 -49.9, adult Z68.42 [facility] [id number] [place] [address] Aug, Foreign body hand S60.559A a nd BMI 45.0-49.9, adult Z68.42 [facility] [address] [address] Aug, [place] [address] [address] Aug, Lumbago with sciatica, unspecified side M54.40 [place] [address] [address] Aug, Vertigo R42 ; Dysfunction of both eustac hian tubes H69.83 ; Low back pain M54.5 and Other chronic pain G89.29 [facility] [id number] [place] [address] Aug, Dizziness R42 and Acute bila teral otitis media H66.93 [place] [address] [address] Aug, Lumbago with sciatica, unspecified side M54.40 [facility] [address] [facility] [place] [id number] Jul, Dental examination Z01.20 [place] [address] [address] Jul, [place] [address] [address] Jul, [place] [address] [address] Jul, Dysfunction of both eustachian tubes H69 .83 [place] [address] [address] Jul, Controlled type 2 diabetes mellitus with out complication, without long-term current use of insulin E11.9 [facility] [address] [address] Jul, Controlled type 2 diabetes mellitus with out complication, without long-term current use of insulin E11.9 [facility] [address] [facility] [id number] [address] [place] [address] Jul, Dizziness R42 and BMI 40.0-4 4.9, adult Z68.41 [facility] [address] [address] Jul, Controlled type 2 diabetes mellitus with out complication, without long-term current use of insulin E11.9 [facility] [address] [address] Jul, Lumbago with sciatica, unspecified side M54.40 [facility] [address] [id number] Jul, Dental examination Z01.20 [facility] [address] [address] Jun, [facility] [address] [id number] Jun, Dental examination Z01.20 [facility] [address] [address] Jun, Controlled type 2 diabetes mellitus with out complication, without long-term current use of insulin E11.9 [facility] [address] [address] Jun, Lumbago with sciatica, unspecified side M54.40 [facility] [address] [id number] May, Dental examination Z01.20 [facility] [address] [address] May, Controlled type 2 diabetes mellitus with out complication, without long-term current use of insulin E11.9 [facility] [address] [id number] May, Dental examination Z01.20 [facility] [address] [address] 18 May, 2017 Bronchitis J40 ; Dry mouth R68.2 ; Non m orbid obesity E66.9 and Controlled type 2 diabetes mellitus without complication, without long-term current use of insulin E11.9 [facility] [address] [address] 16 May, 2017 Encounter for immunization Z 23 [place] [address] [address] 07 May, 2017 Lumbago with sciatica, unspecified side M54.40 [place] [address] [address] 05 May, 2017 [facility] [address] [id number] Apr, Dental examination Z01.20 [facility] [address] [address] Apr, Lumbago with sciatica, unspecified side M54.40 [facility] [address] [address] Mar, Lumbago with sciatica, left side M54.42 [place] [address] [address] Mar, [place] [address] [address] Mar, Lumbar neuritis M54.16 [facility] [address] [address] Mar, [facility] [address] [id number] Mar, Dental examination Z01.20 [facility] [address] [address] Mar, MELE (obstructive sleep apnea) G47.33 ; N europathy involving both lower extremities G57.93 and Frequent headaches R51 [place] [address] [address] Mar, Lumbago with sciatica, unspecified side M54.40 [place] [address] [address] Feb, Lumbago with sciatica, unspecified side M54.40 and Controlled type 2 diabetes mellitus without complication, without long-term current use of insulin E11.9 [place] [address] [address] January, Hypertension, benign I10 and Bilateral l ow back pain with sciatica, sciatica laterality unspecified M54.40 [place] [address] [address] January, Hypertension, benign I10 ; Lumbago with sciatica, unspecified side M54.40 ; Other chronic pain G89.29 and Controlled type 2 diabetes mellitus without complication, without long-term current use of insulin E11.9 [place] [address] [address] January, Lumbar neuritis M54.16 [place] [address] [address] January, [place] [address] [address] Dec, Lumbago with sciatica, right side M54.41 and Lumbar neuritis M54.16 [place] [address] [address] Dec, Lumbar neuritis M54.16 [place] [address] [address] Dec, Lumbar neuritis M54.16 [place] [address] [address] Nov, Lumbar neuritis M54.16 ; Lumbago with sc iatica, right side M54.41 ; Controlled type 2 diabetes mellitus without complication, without long-term current use of insulin E11.9 and Rash and nonspecific skin eruption R21 [place] [address] [address] 09 Nov, 2016 Lumbar neuritis M54.16 and Poison miroslava L2 3.7 [place] [address] [address] Oct, Lumbar neuritis M54.16 ; Coughing R05 an d Mood disorder F39 [address] [address] Sep, Lumbago with sciatica, right side M54.[address] [address] Sep, Adjustment disorder with disturbance of emotion F43.29 and Pain management R52 [place] [address] [address] Sep, [place] [address] [address] Sep, [place] [address] [address] Sep, Controlled type 2 diabetes mellitus with out complication, without long-term current use of insulin E11.9 and Lumbago with sciatica, unspecified side M54.[address] [address] Aug, Controlled type 2 diabetes mellitus with out complication, without long-term current use of insulin E11.9 ; Pain in right knee M25.561 ; Pain in left knee M25.562 ; Other chronic pain G89.29 ; Lumbago with sciatica, right side M54.41 ; Neck pain M54.2 and Encounter for immunization Z23 [place] [address] [address] Jul, [place] [address] [place] [address] Jul, Controlled type 2 diabetes mellitus with out complication, without long-term current use of insulin E11.9 [place] [address] [address] 17 Jul, 2016 [facility] [address] [address] Jul, [place] [address] [address] Jul, Lumbago with sciatica, left side M54.42 ; Lumbago with sciatica, right side M54.41 and Other chronic pain G89.29 [place] [address] [address] Jul, [place] [address] [address] Jul, [place] [address] [address] Jun, [place] [address] [address] Jun, Lumbago with sciatica, right side M54.41 and Other chronic pain G89.29 [place] [address] [address] Jun, Cervicalgia M54.2 ; Lumbago with sciatic a, unspecified side M54.40 and Other chronic pain G89.29 [place] [address] [address] 15 May, 2016 Pain in right knee M25.561 ; Pain in lef t knee M25.562 and Other chronic pain G89.29 [place] [address] [address] 14 May, 2016 [place] [address] [address] 05 Apr, 2016 Other chronic pain G89.29 and Pain in ri ght knee M25.561 [place] [address] [address] Apr, Pain in right knee M25.561 [place] [address] [address] Mar, [place] [address] [address] Mar, Mood disorder F39 and Controlled type 2 diabetes mellitus without complication, without long-term current use of insulin E11.9 [place] [address] [address] Mar, Pain in right knee M25.561 ; Pain in lef t knee M25.562 ; Other chronic pain G89.29 ; Obstructive sleep apnea syndrome G47.33 ; Mood disorder F39 and Controlled type 2 diabetes mellitus without complication, without long-term current use of insulin E11.9 [place] [address] [address] Mar, [facility] [address] [id number] Feb, Dental examination Z01.20 [place] [address] [address] Feb, [place] [address] [address] Feb, Osteoarthritis of right knee, unspecifie d osteoarthritis type M17.9 [place] [address] [address] January, [facility] [address] [id number] January, Dental examination Z01.20 [place] [address] [address] January, [facility] [address] [id number] January, Dental examination Z01.20 and Caries K02 .9 [place] [address] [address] Dec, Encounter for other preprocedural examin ation Z01.818 [facility] [address] [address] Dec, [facility] [address] [address] Dec, Knee pain M25.569 [facility] [address] [address] Dec, Pain in right knee M25.561 [facility] [address] [address] Dec, [facility] [address] [address] Dec, [facility] [address] [address] Dec, Encounter for immunization Z23 [facility] [address] [address] Dec, [facility] [address] [address] Dec, [facility] [address] [address] Nov, [facility] [address] [address] Nov, Hypertension, benign I10 ; Cervicalgia M 54.2 ; Pain in right knee M25.561 and Pain in left knee M25.562 [facility] [address] [address] Oct, [facility] [address] [address] Oct, [facility] [address] [address] Oct, Osteoarthritis of both knees M17.0 [facility] [address] [address] Oct, [place] [address] [address] Oct, Low back pain M54.5 [place] [address] [address] Oct, Low back pain M54.5 ; Sciatica, unspecif ied side M54.30 ; Pain in right knee M25.561 ; Pain in left knee M25.562 ; Pain in right shoulder M25.511 and Pain in left shoulder M25.512 [place] [address] [address] Oct, [place] [address] [address] Sep, Pain in right hip M25.[address] [address] Sep, Acute upper respiratory infection, unspe cified J06.[address] [address] Aug, Acute upper respiratory infection, unspe cified J06.9 and Other viral agents as the cause of diseases classified elsewhere B97.[address] [address] Jul, Arthritis M19.[address] [address] Jun, Arthritis M19.90 ; Pain in right hip M25 .551 ; Pain in left hip M25.552 ; Bilateral low back pain with sciatica, sciatica laterality unspecified M54.40 ; Neck pain M54.2 ; Upper back pain M54.9 and Knee pain, unspecified laterality M25.[address] [address] 10 May, 2015 Osteoarthritis of both knees 715.[address] [address] May, Rash 782.1 [facility] [address] [address] Apr, Lumbar strain 847.2 [facility] [facility] [address] [address] Apr, Rash 782.1 [facility] [address] [address] Mar, Rash 782.1 [facility] [address] [address] Feb, Rash 782.1 ; Hemorrhoids 455.6 and Const ipation 564.00 [facility] [address] [address] Feb, Osteoarthritis of both knees 715.96 [facility] [address] [address] January, [facility] [address] [address] Dec, [facility] [address] [address] Dec, [facility] [address] [address] Dec, [facility] [address] [address] Nov, [facility] [address] [address] Nov, [facility] [address] [address] Nov, [facility] [address] [address] Nov, [facility] [address] [address] Nov, [facility] [address] [address] Nov, [facility] [place] [facility] [address] [facility] [id number] [place] [address] Oct, [facility] [place] [facility] [address] [id number] [place] [address] Oct, [facility] [place] [facility] [address] [id number] [place] [address] Oct, [facility] [place] [facility] [address] [id number] [place] [address] Oct, [facility] [place] [facility] [address] [id number] [place] [address] Oct, [facility] [place] [facility] [address] [id number] [place] [address] Oct, [facility] [place] [facility] [address] [id number] [place] [address] Oct, [facility] [place] [facility] [address] [id number] [place] [address] Oct, [facility] [place] [facility] [address] [id number] [place] [address] Oct, [facility] [place] [facility] [address] [id number] [place] [address] Oct, [facility] [place] [facility] [address] [id number] [place] [address] Oct, [facility] [place] [facility] [address] [id number] [place] [address] Sep, [facility] [place] [facility] [address] [id number] [place] [address] Sep, [facility] [place] [facility] [address] [id number] [place] [address] Sep, [facility] [place] [facility] [address] [id number] [place] [address] Sep, [facility] [place] [facility] [address] [id number] [place] [address] Sep, [facility] [place] [facility] [address] [id number] [place] [address] Sep, [facility] [place] [facility] [address] [id number] [place] [address] Aug, [facility] [place] [facility] [address] [id number] [place] [address] Aug, [facility] [place] [facility] [address] [id number] [place] [address] Aug, [facility] [place] [facility] [address] [id number] [place] [address] Aug, [facility] [place] [facility] [address] [id number] [place] [address] Aug, [facility] [place] [facility] [address] [id number] [place] [address] Aug, [facility] [place] [facility] [address] [id number] [place] [address] Aug, [facility] [place] [facility] [address] [id number] [place] [address] Aug, [facility] [place] [facility] [address] [id number] [place] [address] Aug, [facility] [place] [facility] [address] [id number] [place] [address] Aug, [facility] [place] [facility] [address] [id number] [place] [address] Jul, [facility] [place] [facility] [address] [id number] [place] [address] Jul, [facility] [place] [facility] [address] [id number] [place] [address] Jul, [facility] [place] [facility] [address] [id number] [place] [address] Jul, [facility] [place] [facility] [address] [id number] [place] [address] Jun, [facility] [place] [facility] [address] [id number] [place] [address] Jun, [facility] [place] [facility] [address] [facility] [id number] [place] [address] Jun, [facility] [place] [facility] [address] [facility] [id number] [place] [address] Jun, [facility] [place] [facility] [address] [id number] [place] [address] Jun, [facility] [place] [facility] [address] [facility] [id number] [place] [address] Jun, [facility] [place] [facility] [address] [facility] [id number] [place] [address] Jun, [facility] [place] [facility] [address] [id number] [place] [address] Jun, [facility] [place] [facility] [address] [id number] [place] [address] May, [facility] [place] [facility] [address] [id number] [place] [address] 24 May, 2014 [facility] [place] [facility] [address] [id number] [place] [address] 19 May, 2014 [facility] [place] [facility] [address] [id number] [place] [address] 19 May, 2014 [facility] [place] [facility] [address] [id number] [place] [address] 15 May, 2014 [facility] [place] [facility] [address] [id number] [place] [address] 15 May, 2013 [facility] [place] [facility] [address] [facility] [id number] [place] [address] 15 May, 2013 [facility] [place] [facility] [address] [id number] [place] [address] 15 May, 2014 [facility] [place] [facility] [address] [id number] [place] [address] Apr, [facility] [place] [facility] [address] [id number] [place] [address] Apr, [facility] [place] [facility] [address] [facility] [id number] [place] [address] Apr, [facility] [place] [facility] [address] [facility] [id number] [place] [address] Apr, [facility] [place] [facility] [address] [facility] [id number] [place] [address] Apr, [facility] [place] [facility] [address] [id number] [place] [address] Apr, [facility] [place] [facility] [address] [id number] [place] [address] Apr, [facility] [place] [facility] [address] [id number] [place] [address] Apr, [facility] [place] [facility] [address] [id number] [place] [address] Apr, [facility] [place] [facility] [address] [id number] [place] [address] Apr, [facility] [place] [facility] [address] [id number] [place] [address] Apr, [facility] [place] [facility] [address] [id number] [place] [address] Apr, [facility] [place] [facility] [address] [id number] [place] [address] Mar, [facility] [place] [facility] [address] [id number] [place] [address] Mar, [facility] [place] [facility] [address] [id number] [place] [address] Mar, [facility] [place] [facility] [address] [id number] [place] [address] Mar, [facility] [place] [facility] [address] [id number] [place] [address] Mar, [facility] [place] [facility] [address] [id number] [place] [address] Mar, [facility] [place] [facility] [address] [id number] [place] [address] Feb, [facility] [place] [facility] [address] [facility] [id number] [place] [address] Feb, [facility] [place] [facility] [address] [facility] [id number] [place] [address] Feb, [facility] [place] [facility] [address] [id number] [place] [address] Feb, [facility] [place] [facility] [address] [id number] [place] [address] Feb, [facility] [place] [facility] [address] [facility] [id number] [place] [address] Feb, [facility] [place] [facility] [address] [id number] [place] [address] Feb, [facility] [place] [facility] [address] [id number] [place] [address] Feb, [facility] [place] [facility] [address] [id number] [place] [address] Feb, [facility] [place] [facility] [address] [id number] [place] [address] Feb, [facility] [place] [facility] [address] [id number] [place] [address] Feb, [facility] [place] [facility] [address] [id number] [place] [address] Feb, [facility] [place] [facility] [address] [id number] [place] [address] Feb, [facility] [place] [facility] [address] [id number] [place] [address] Feb, [facility] [place] [facility] [address] [id number] [place] [address] January, [facility] [place] [facility] [address] [id number] [place] [address] January, [facility] [place] [facility] [address] [id number] [place] [address] January, [facility] [place] [facility] [address] [id number] [place] [address] January, [facility] [place] [facility] [address] [facility] [id number] [facility] [place] [address] January, [facility] [place] [facility] [address] [facility] [id number] [facility] [place] [address] January, [facility] [place] [facility] [address] [id number] [facility] [place] [address] Dec, [facility] [place] [facility] [address] [id number] [place] [address] Dec, [facility] [place] [facility] [address] [facility] [id number] [place] [address] Dec, [facility] [place] [facility] [address] [id number] [place] [address] Dec, [facility] [place] [facility] [address] [id number] [facility] [place] [address] Dec, [facility] [place] [facility] [address] [id number] [facility] [place] [address] Dec, [facility] [place] [facility] [address] [facility] [id number] [facility] [place] [address] Dec, [facility] [place] [facility] [address] [id number] [place] [address] Dec, [facility] [place] [facility] [address] [id number] [place] [address] Nov, [facility] [place] [facility] [address] [id number] [facility] [place] [address] Nov, [facility] [place] [facility] [address] [facility] [id number] [facility] [place] [address] Nov, [facility] [place] [facility] [address] [id number] [place] [address] Nov, [facility] [place] [facility] [address] [id number] [facility] [place] [address] Nov, [facility] [place] [facility] [address] [id number] [facility] [place] [address] Nov, [facility] [place] [facility] [address] [facility] [id number] [place] [address] Nov, [facility] [place] [facility] [address] [facility] [id number] [place] [address] Nov, [facility] [place] [facility] [address] [id number] [place] [address] Oct, [facility] [place] [facility] [address] [id number] [place] [address] Oct, [facility] [place] [facility] [address] [id number] [place] [address] Oct, [facility] [place] [facility] [address] [id number] [place] [address] Oct, [facility] [place] [facility] [address] [id number] [place] [address] Oct, [facility] [place] [facility] [address] [id number] [place] [address] Oct, [facility] [place] [facility] [address] [id number] [place] [address] Oct, [facility] [place] [facility] [address] [id number] [place] [address] Oct, [facility] [place] [facility] [address] [id number] [place] [address] Oct, [facility] [place] [facility] [address] [id number] [place] [address] Oct, [facility] [place] [facility] [address] [id number] [place] [address] Sep, [facility] [place] [facility] [address] [id number] [place] [address] Sep, [facility] [place] [facility] [address] [id number] [place] [address] Sep, [facility] [place] [facility] [address] [id number] [place] [address] Sep, [facility] [place] [facility] [address] [id number] [place] [address] Sep, [facility] [place] [facility] [address] [id number] [place] [address] Sep, [facility] [place] [facility] [address] [id number] [place] [address] Aug, [facility] [place] [facility] [address] [id number] [place] [address] Aug, [facility] [place] [facility] [address] [id number] [place] [address] Aug, [facility] [place] [facility] [address] [id number] [place] [address] Aug, [facility] [place] [facility] [address] [id number] [place] [address] Aug, [facility] [place] [facility] [address] [id number] [place] [address] Aug, [facility] [place] [facility] [address] [id number] [place] [address] Aug, [facility] [place] [facility] [address] [id number] [place] [address] Aug, [facility] [place] [facility] [address] [id number] [place] [address] Jul, [facility] [place] [facility] [address] [id number] [place] [address] Jul, [facility] [place] [facility] [address] [id number] [place] [address] Jul, [facility] [place] [facility] [address] [id number] [place] [address] Jul, [facility] [place] [facility] [address] [id number] [place] [address] Jul, [facility] [place] [facility] [address] [id number] [place] [address] Jul, [facility] [place] [facility] [address] [id number] [place] [address] Jun, [facility] [place] [facility] [address] [facility] [id number] [place] [address] Jun, [facility] [place] [facility] [address] [facility] [id number] [place] [address] Jun, [facility] [place] [facility] [address] [facility] [id number] [place] [address] May, [facility] [place] [facility] [address] [id number] [place] [address] May, [facility] [place] [facility] [address] [id number] [place] [address] May, [facility] [place] [facility] [address] [id number] [place] [address] Apr, [facility] [place] [facility] [address] [id number] [place] [address] Apr, [facility] [place] [facility] [address] [id number] [place] [address] Apr, [facility] [place] [facility] [address] [id number] [place] [address] Apr, [facility] [place] [facility] [address] [id number] [place] [address] Mar, [facility] [place] [facility] [address] [id number] [place] [address] Mar, [facility] [place] [facility] [address] [id number] [place] [address] Mar, [facility] [place] [facility] [address] [id number] [place] [address] Mar, [facility] [place] [facility] [address] [id number] [place] [address] Feb, [facility] [place] [facility] [address] [id number] [place] [address] Feb, [facility] [place] [facility] [address] [id number] [place] [address] Feb, [facility] [place] [facility] [address] [id number] [place] [address] Feb[facility] [address] [id number] [place] [address] January, [facility] [address] [id number] [place] [address] January, [facility] [place] [facility] [address] [id number] [place] [address] January, [facility] [address] [id number] [place] [address] Nov, [facility] [place] [facility] [address] [id number] [place] [address] Nov, [facility] [address] [id number] [place] [address] Oct, [facility] [place] [facility] [address] [id number] [place] [address] Oct, [facility] [place] [facility] [address] [id number] [place] [address] Oct, [facility] [place] [facility] [address] [id number] [place] [address] Oct, [facility] [place] [facility] [address] [id number] [place] [address] Sep, [facility] [place] [facility] [address] [id number] [place] [address] Sep, [facility] [place] [facility] [address] [id number] [place] [address] Sep, [facility] [place] [facility] [address] [id number] [place] [address] Aug, [facility] [place] [facility] [address] [id number] [place] [address] Aug, [facility] [place] [facility] [address] [id number] [place] [address] Aug, [facility] [place] [facility] [address] [id number] [place] [address] Aug, [facility] [place] [facility] [address] [id number] [place] [address] Aug, [facility] [place] [facility] [address] [id number] [place] [address] Aug, [facility] [place] [facility] [address] [id number] [place] [address] Jul, [facility] [place] [facility] [address] [id number] [place] [address] Jul, [facility] [place] [facility] [address] [id number] [place] [address] Jun, [facility] [place] [facility] [address] [id number] [place] [address] Jun, [facility] [place] [facility] [address] [id number] [place] [address] Jun, [facility] [place] [facility] [address] [id number] [place] [address] Apr, [facility] [place] [facility] [address] [id number] [place] [address] Apr, [facility] [place] [facility] [address] [id number] [place] [address] Mar, [facility] [place] [facility] [address] [id number] [place] [address] Mar, [facility] [place] [facility] [address] [id number] [place] [address] Mar, [facility] [place] [facility] [address] [id number] [place] [address] Mar, [facility] [place] [facility] [address] [id number] [place] [address] Feb, [facility] [place] [facility] [id number] [place] [address] Feb, [facility] [place] [facility] [address] [id number] [place] [address] Feb, [facility] [place] [facility] [address] [id number] [place] [address] January, [facility] [place] [facility] [address] [id number] [place] [address] January, [facility] [place] [facility] [address] [id number] [place] [address] January, [facility] [address] [id number] [place] [address] January, [facility] [id number] [place] [address] Dec, [facility] [address] [id number] [place] [address] Dec, [facility] [address] [id number] [place] [address] Nov, [facility] [address] [id number] [place] [address] Nov, [facility] [id number] [place] [address] Oct, [facility] [address] [id number] [place] [address] Oct, [facility] [address] [id number] [place] [address] Sep, [facility] [address] [id number] [place] [address] Sep, [facility] [address] [id number] [place] [address] Sep, [facility] [address] [id number] [place] [address] Sep, [facility] [address] [id number] [place] [address] Aug, [facility] [address] [id number] [place] [address] Aug, [facility] [address] [id number] [place] [address] Aug, [facility] [address] [id number] [place] [address] Jul, [facility] [id number] [place] [address] Aug, [facility] [id number] [place] [address] Aug, [facility] [id number] [place] [address] Aug, [facility] [id number] [place] [address] Aug, [facility] [id number] [place] [address] Jul, [facility] [address] [address] Jul, [facility] [address] [address] Jul, [facility] [id number] [place] [address] Jun, [facility] [id number] [place] [address] Jun, [facility] [address] [address] Jun, [facility] [id number] [place] [address] Apr, [facility] [address] [address] Mar, IMMUNIZATIONS No Known Immunizations SOCIAL HISTORY Never Assessed REASON FOR VISIT PLAN OF CARE VITAL SIGNS Height 66 in 2013-11-29 Weight 258 lbs 2013-11-29 Temperature 96 degrees Fahrenheit 2013-11-29 Heart Rate 68 bpm 2013-11-29 Respiratory Rate 18 2013-11-29 Blood pressure systolic 143 mmHg 2013-11-29 Blood pressure diastolic 93 mmHg 2013-11-29 MEDICATIONS Unknown Medications RESULTS No Results PROCEDURES Procedure Date Ordered Result Body Site URINALYSIS, AUTO, W/O SCOPE November 29, 2013 INSTRUCTIONS MEDICATIONS ADMINISTERED No Known Medications [...]
--- OUTSIDE RECORDS SUMMARY | 2020-03-18 15:13 | XMS REPORT ---
Author Author George Marx Doctor Organization [facility] Address Unknown Phone Unavailable Care Team Providers Care Legal Service Specialist Name Role Phone Migration, Doctor Unavailable Unavailable PROBLEMS Type Condition ICD9-CM Code LZO00-IV Code Onset Dates Condition S tatus SNOMED Code Problem Hypertension, benign I10 Active 05819629 Problem Other chronic pain G89.29 Active 8 6688852 Problem Lumbago with sciatica, unspecified side M54.40 Active 691873296 Problem Controlled type 2 diabetes m ellitus without complication, without long- term current use of insulin E11.9 Active 030555071 Problem Lumbago with sciatica, right side M54.41 Active 780867795 Problem Adjustment disorder with disturbance of emotion F4 3.29 Active 77265390 Problem MELE (obstructive sleep apnea) G47.33 Active 41252634 Problem Non morbid obesity E66.9 Active 4 95830352 Problem Hammer toe of left foot M20.42 Active 729131510 Problem Mood disorder F39 Active 008741 05 Problem Deformity of left foot M21.962 Active 582075684 Problem Lumbago with sciatica, left side M54.42 Active 655803831 Problem Erectile dysfunction due to diseases classified elsewhere N52.1 Active 799901558 Problem Obstructive sleep apnea syndrome G47.33 Active 63231413 Problem Type 2 diabetes mellitus wit h diabetic neuropathy, without long-term current use of insulin E11.40 Active 71029 006 Problem Essential hypertension I10 Active 95247983 ALLERGIES No Information ENCOUNTERS Encounter Location Date Diagnosis [facility] [id number] [place] [address] Nov, [facility] [id number] [place] [address] Sep, [facility] [id number] [place] [address] Aug, [facility] [id number] [place] [address] Jul, Lumbago with sciatica, unspecified side M54.40 [place] [address] [address] Jun, Lumbago with sciatica, unspecified side M54.40 [place] [address] [address] Jun, URI, acute J06.9 [place] [address] [address] May, Lumbago with sciatica, unspecified side M54.40 [place] [address] [address] May, [place] [address] [address] May, Type 2 diabetes mellitus with diabetic n europathy, without long-term current use of insulin E11.40 and Hammer toe of left foot M20.42 [place] [address] [address] May, [place] [address] [address] May, [place] [address] [address] May, [place] [address] [address] Apr, Lumbago with sciatica, unspecified side M54.40 [place] [address] [address] Apr, [place] [address] [address] Apr, [place] [address] [address] [place] [address] Apr, Hammer toe of left foot M20. 42 ; Chest pain R07.9 ; Preoperative examination Z01.818 and Morbid obesity E66.01 [place] [address] [address] Apr, Morbid obesity E66.01 ; Bronchitis J40 a nd High risk medications (not anticoagulants) long-term use Z79.899 [place] [address] [address] Apr, Lumbago with sciatica, unspecified side M54.40 [place] [address] [address] Apr, [place] [address] [address] Mar, Lumbar neuritis M54.16 and Morbid obesit y E66.01 [place] [address] [address] Mar, [place] [address] [address] Mar, [place] [address] [address] Mar, Lumbago with sciatica, unspecified side M54.40 [place] [address] [address] Mar, Morbid obesity E66.01 ; Coughing R05 ; 2 + pitting edema R60.9 and Controlled type 2 diabetes mellitus without complication, without long-term current use of insulin E11.9 [place] [address] [address] Feb, [place] [address] [address] Feb, Lumbago with sciatica, unspecified side M54.40 [place] [address] [address] Feb, [address] [address] Feb, Controlled type 2 diabetes mellitus with out complication, without long-term current use of insulin E11.9 and Morbid obesity E66.01 [place] [address] [address] January, Deformity of left foot M21.962 [place] [address] [address] January, [facility] [address] [address] January, Lumbago with sciatica, unspecified side M54.40 [place] [address] [address] January, [place] [address] [address] January, Lumbago with sciatica, unspecified side M54.40 [place] [address] [address] January, [place] [address] [address] January, Acute right-sided thoracic back pain M54 .6 [place] [address] [address] January, Acute right-sided thoracic back pain M54 .6 [place] [address] [address] January, Chest pain, unspecified type R07.9 ; Mor bid obesity E66.01 and Scabies B86 [place] [address] [address] Dec, Lumbago with sciatica, unspecified side M54.40 [place] [address] [address] Dec, Toenail fungus B35.1 [place] [address] [address] Dec, Toenail fungus B35.1 [place] [address] [address] Dec, Acute right-sided thoracic back pain M54 .6 [place] [address] [address] Dec, Lumbago with sciatica, unspecified side M54.40 [facility] [address] [address] Nov, Hammer toe of left foot M20.42 ; Deformi ty of left foot M21.962 and Type 2 diabetes mellitus with diabetic neuropathy, without long-term current use of insulin E11.40 [facility] [address] [facility] [id number] [address] [place] [address] Nov, Acute right-sided thoracic b ack pain M54.6 ; Morbid obesity E66.01 and Rt flank pain R10.9 [place] [address] [address] Nov, Lumbago with sciatica, unspecified side M54.40 [place] [address] [address] Oct, Lumbago with sciatica, unspecified side M54.40 [place] [address] [address] Sep, Lumbago with sciatica, unspecified side M54.40 [place] [address] [address] Sep, [place] [address] [address] Sep, BMI 40.0-44.9, adult Z68.41 ; Lumbago wi th sciatica, left side M54.42 ; Lumbago with sciatica, right side M54.41 and Other chronic pain G89.29 [place] [address] [address] Aug, Lumbago with sciatica, unspecified side M54.40 [place] [address] [address] Aug, Type 2 diabetes mellitus with diabetic n europathy, without long-term current use of insulin E11.40 ; Hammer toe of left foot M20.42 ; Hypertension, benign I10 and Frequent headaches R51 [place] [address] [address] Jul, Lumbago with sciatica, unspecified side M54.40 [place] [address] [address] Jul, [place] [address] [address] Jul, Essential hypertension I10 and Controlle d type 2 diabetes mellitus without complication, without long-term current use of insulin E11.9 [place] [address] [address] Jul, Essential hypertension I10 ; Controlled type 2 diabetes mellitus without complication, without long-term current use of insulin E11.9 and BMI 40.0-44.9, adult Z68.41 [place] [address] [address] Jul, Dysfunction of left eustachian tube H69. 82 [place] [address] [address] Jul, Lumbago with sciatica, unspecified side M54.40 [facility] [id number] [place] [id number] Jun, Dental examination Z01.20 [place] [address] [address] Jun, Lumbago with sciatica, unspecified side M54.40 and Encounter for immunization Z23 [place] [address] [address] Jun, Dysfunction of left eustachian tube H69. 82 [facility] [address] [facility] [address] [id number] [id number] Jun, Dental examination Z01.20 [facility] [id number] [place] [address] Jun, Other chronic pain G89.29 [facility] [address] [facility] [place] [id number] Jun, Dental examination Z01.20 [facility] [address] [address] Jun, [facility] [address] [address] Jun, Bronchitis J40 ; Dysfunction of left eus tachian tube H69.82 and BMI 45.0-49.9, adult Z68.42 [place] [address] [address] Jun, Lumbago with sciatica, unspecified side M54.40 [place] [address] [address] May, Type 2 diabetes mellitus with diabetic n europathy, without long-term current use of insulin E11.40 and Hypertension, benign I10 [place] [address] [address] May, Lumbago with sciatica, unspecified side M54.40 [facility] [address] [facility] [id number] [address] [place] [address] Apr, [facility] [address] [address] Apr, Controlled type 2 diabetes mellitus with out complication, without long-term current use of insulin E11.9 ; Insect bite (nonvenomous), right ankle, initial encounter S90.561A ; Local infection of the skin and subcutaneous tissue, unspecified L08.9 ; Acute swimmer''s ear of left side H60.332 and BMI 45.0-49.9, adult Z68.42 [place] [address] [address] Apr, Lumbago with sciatica, unspecified side M54.40 [place] [address] [address] Mar, [place] [address] [address] Mar, Lumbago with sciatica, unspecified side M54.40 [place] [address] [address] Feb, Lumbago with sciatica, unspecified side M54.40 [place] [address] [address] Feb, BMI 45.0-49.9, adult Z68.42 and Obstruct jaida sleep apnea syndrome G47.33 [place] [address] [address] January, Lumbar neuritis M54.16 [place] [address] [address] January, Lumbago with sciatica, unspecified side M54.40 [place] [address] [address] Dec, Controlled type 2 diabetes mellitus with out complication, without long-term current use of insulin E11.9 ; Erectile dysfunction due to diseases classified elsewhere N52.1 and Mood disorder F39 [place] [address] [address] Dec, Lumbago with sciatica, unspecified side M54.40 [place] [address] [address] Dec, Obstructive sleep apnea syndrome G47.33 [place] [address] [address] Nov, Lumbago with sciatica, unspecified side M54.40 ; Hypertension, benign I10 and Mood disorder F39 [place] [address] [address] Nov, Other chronic pain G89.29 [facility] [address] [address] Nov, Lumbago with sciatica, unspecified side M54.40 [facility] [address] [id number] Nov, Dental examination Z01.20 [facility] [address] [address] Oct, [facility] [address] [address] Oct, Lumbago with sciatica, unspecified side M54.40 [facility] [address] [address] Oct, Lumbago with sciatica, unspecified side M54.40 [facility] [address] [address] Oct, [facility] [address] [address] Oct, [facility] [address] [id number] Oct, Dental examination Z01.20 [facility] [address] [address] Oct, [facility] [address] [address] Oct, Pain in right knee M25.561 [facility] [address] [address] Sep, [facility] [address] [address] Sep, Other chronic pain G89.29 [facility] [address] [address] Sep, Lumbago with sciatica, unspecified side M54.40 [facility] [address] [address] Sep, [facility] [id number] [place] [address] Sep, Viral URI J06.9 and BMI 45.0 -49.9, adult Z68.42 [facility] [id number] [place] [address] Aug, Foreign body hand S60.559A a nd BMI 45.0-49.9, adult Z68.42 [facility] [address] [address] Aug, [place] [address] [address] Aug, Lumbago with sciatica, unspecified side M54.40 [place] [address] [address] Aug, Vertigo R42 ; Dysfunction of both eustac hian tubes H69.83 ; Low back pain M54.5 and Other chronic pain G89.29 [facility] [id number] [place] [address] Aug, Dizziness R42 and Acute bila teral otitis media H66.93 [place] [address] [address] Aug, Lumbago with sciatica, unspecified side M54.40 [facility] [address] [facility] [place] [id number] Jul, Dental examination Z01.20 [place] [address] [address] Jul, [place] [address] [address] Jul, [place] [address] [address] Jul, Dysfunction of both eustachian tubes H69 .83 [place] [address] [address] Jul, Controlled type 2 diabetes mellitus with out complication, without long-term current use of insulin E11.9 [facility] [address] [address] Jul, Controlled type 2 diabetes mellitus with out complication, without long-term current use of insulin E11.9 [facility] [address] [facility] [id number] [address] [place] [address] Jul, Dizziness R42 and BMI 40.0-4 4.9, adult Z68.41 [facility] [address] [address] Jul, Controlled type 2 diabetes mellitus with out complication, without long-term current use of insulin E11.9 [facility] [address] [address] Jul, Lumbago with sciatica, unspecified side M54.40 [facility] [address] [id number] Jul, Dental examination Z01.20 [facility] [address] [address] Jun, [facility] [address] [id number] Jun, Dental examination Z01.20 [facility] [address] [address] Jun, Controlled type 2 diabetes mellitus with out complication, without long-term current use of insulin E11.9 [facility] [address] [address] Jun, Lumbago with sciatica, unspecified side M54.40 [facility] [address] [id number] May, Dental examination Z01.20 [facility] [address] [address] May, Controlled type 2 diabetes mellitus with out complication, without long-term current use of insulin E11.9 [facility] [address] [id number] May, Dental examination Z01.20 [facility] [address] [address] 18 May, 2017 Bronchitis J40 ; Dry mouth R68.2 ; Non m orbid obesity E66.9 and Controlled type 2 diabetes mellitus without complication, without long-term current use of insulin E11.9 [facility] [address] [address] 16 May, 2017 Encounter for immunization Z 23 [place] [address] [address] 07 May, 2017 Lumbago with sciatica, unspecified side M54.40 [place] [address] [address] 05 May, 2017 [facility] [address] [id number] Apr, Dental examination Z01.20 [facility] [address] [address] Apr, Lumbago with sciatica, unspecified side M54.40 [facility] [address] [address] Mar, Lumbago with sciatica, left side M54.42 [place] [address] [address] Mar, [place] [address] [address] Mar, Lumbar neuritis M54.16 [facility] [address] [address] Mar, [facility] [address] [id number] Mar, Dental examination Z01.20 [facility] [address] [address] Mar, MELE (obstructive sleep apnea) G47.33 ; N europathy involving both lower extremities G57.93 and Frequent headaches R51 [place] [address] [address] Mar, Lumbago with sciatica, unspecified side M54.40 [place] [address] [address] Feb, Lumbago with sciatica, unspecified side M54.40 and Controlled type 2 diabetes mellitus without complication, without long-term current use of insulin E11.9 [place] [address] [address] January, Hypertension, benign I10 and Bilateral l ow back pain with sciatica, sciatica laterality unspecified M54.40 [place] [address] [address] January, Hypertension, benign I10 ; Lumbago with sciatica, unspecified side M54.40 ; Other chronic pain G89.29 and Controlled type 2 diabetes mellitus without complication, without long-term current use of insulin E11.9 [place] [address] [address] January, Lumbar neuritis M54.16 [place] [address] [address] January, [place] [address] [address] Dec, Lumbago with sciatica, right side M54.41 and Lumbar neuritis M54.16 [place] [address] [address] Dec, Lumbar neuritis M54.16 [place] [address] [address] Dec, Lumbar neuritis M54.16 [place] [address] [address] Nov, Lumbar neuritis M54.16 ; Lumbago with sc iatica, right side M54.41 ; Controlled type 2 diabetes mellitus without complication, without long-term current use of insulin E11.9 and Rash and nonspecific skin eruption R21 [place] [address] [address] 09 Nov, 2016 Lumbar neuritis M54.16 and Poison miroslava L2 3.7 [place] [address] [address] Oct, Lumbar neuritis M54.16 ; Coughing R05 an d Mood disorder F39 [address] [address] Sep, Lumbago with sciatica, right side M54.[address] [address] Sep, Adjustment disorder with disturbance of emotion F43.29 and Pain management R52 [place] [address] [address] Sep, [place] [address] [address] Sep, [place] [address] [address] Sep, Controlled type 2 diabetes mellitus with out complication, without long-term current use of insulin E11.9 and Lumbago with sciatica, unspecified side M54.[address] [address] Aug, Controlled type 2 diabetes mellitus with out complication, without long-term current use of insulin E11.9 ; Pain in right knee M25.561 ; Pain in left knee M25.562 ; Other chronic pain G89.29 ; Lumbago with sciatica, right side M54.41 ; Neck pain M54.2 and Encounter for immunization Z23 [place] [address] [address] Jul, [address] [address] [address] [place] [address] Jul, Controlled type 2 diabetes mellitus with out complication, without long-term current use of insulin E11.9 [place] [address] [address] 17 Jul, 2016 [facility] [address] [address] Jul, [place] [address] [address] Jul, Lumbago with sciatica, left side M54.42 ; Lumbago with sciatica, right side M54.41 and Other chronic pain G89.29 [place] [address] [address] Jul, [place] [address] [address] Jul, [place] [address] [address] Jun, [place] [address] [address] Jun, Lumbago with sciatica, right side M54.41 and Other chronic pain G89.29 [place] [address] [address] Jun, Cervicalgia M54.2 ; Lumbago with sciatic a, unspecified side M54.40 and Other chronic pain G89.29 [place] [address] [address] 15 May, 2016 Pain in right knee M25.561 ; Pain in lef t knee M25.562 and Other chronic pain G89.29 [place] [address] [address] 14 May, 2016 [place] [address] [address] 05 Apr, 2016 Other chronic pain G89.29 and Pain in ri ght knee M25.561 [place] [address] [address] Apr, Pain in right knee M25.561 [place] [address] [address] Mar, [place] [address] [address] Mar, Mood disorder F39 and Controlled type 2 diabetes mellitus without complication, without long-term current use of insulin E11.9 [place] [address] [address] Mar, Pain in right knee M25.561 ; Pain in lef t knee M25.562 ; Other chronic pain G89.29 ; Obstructive sleep apnea syndrome G47.33 ; Mood disorder F39 and Controlled type 2 diabetes mellitus without complication, without long-term current use of insulin E11.9 [place] [address] [address] Mar, [facility] [address] [id number] Feb, Dental examination Z01.20 [place] [address] [address] Feb, [place] [address] [address] Feb, Osteoarthritis of right knee, unspecifie d osteoarthritis type M17.9 [place] [address] [address] January, [facility] [address] [id number] January, Dental examination Z01.20 [place] [address] [address] January, [facility] [address] [id number] January, Dental examination Z01.20 and Caries K02 .9 [place] [address] [address] Dec, Encounter for other preprocedural examin ation Z01.818 [facility] [address] [address] Dec, [facility] [address] [address] Dec, Knee pain M25.569 [facility] [address] [address] Dec, Pain in right knee M25.561 [facility] [address] [address] Dec, [facility] [address] [address] Dec, [facility] [address] [address] Dec, Encounter for immunization Z23 [facility] [address] [address] Dec, [facility] [address] [address] Dec, [facility] [address] [address] Nov, [facility] [address] [address] Nov, Hypertension, benign I10 ; Cervicalgia M 54.2 ; Pain in right knee M25.561 and Pain in left knee M25.562 [facility] [address] [address] Oct, [facility] [address] [address] Oct, [facility] [address] [address] Oct, Osteoarthritis of both knees M17.0 [facility] [address] [address] Oct, [place] [address] [address] Oct, Low back pain M54.5 [place] [address] [address] Oct, Low back pain M54.5 ; Sciatica, unspecif ied side M54.30 ; Pain in right knee M25.561 ; Pain in left knee M25.562 ; Pain in right shoulder M25.511 and Pain in left shoulder M25.512 [place] [address] [address] Oct, [place] [address] [address] Sep, Pain in right hip M25.[address] [address] Sep, Acute upper respiratory infection, unspe cified J06.[address] [address] Aug, Acute upper respiratory infection, unspe cified J06.9 and Other viral agents as the cause of diseases classified elsewhere B97.[address] [address] Jul, Arthritis M19.[address] [address] Jun, Arthritis M19.90 ; Pain in right hip M25 .551 ; Pain in left hip M25.552 ; Bilateral low back pain with sciatica, sciatica laterality unspecified M54.40 ; Neck pain M54.2 ; Upper back pain M54.9 and Knee pain, unspecified laterality M25.[address] [address] 10 May, 2015 Osteoarthritis of both knees 715.[address] [address] May, Rash 782.1 [facility] [address] [address] Apr, Lumbar strain 847.2 [facility] [address] [address] Apr, Rash 782.1 [facility] [address] [address] Mar, Rash 782.1 [facility] [address] [address] Feb, Rash 782.1 ; Hemorrhoids 455.6 and Const ipation 564.00 [facility] [address] [address] Feb, Osteoarthritis of both knees 715.96 [facility] [address] [address] January, [facility] [address] [address] Dec, [facility] [address] [address] Dec, [facility] [address] [address] Dec, [facility] [address] [address] Nov, [facility] [address] [address] Nov, [facility] [address] [address] Nov, [facility] [address] [address] Nov, [facility] [address] [address] Nov, [facility] [address] [address] Nov, [facility] [place] [facility] [address] [facility] [id number] [place] [address] Oct, [facility] [place] [facility] [address] [id number] [place] [address] Oct, [facility] [place] [facility] [address] [id number] [place] [address] Oct, [facility] [place] [facility] [address] [id number] [place] [address] Oct, [facility] [place] [facility] [address] [id number] [place] [address] Oct, [facility] [place] [facility] [address] [id number] [place] [address] Oct, [facility] [place] [facility] [address] [id number] [place] [address] Oct, [facility] [place] [facility] [address] [id number] [place] [address] Oct, [facility] [place] [facility] [address] [id number] [place] [address] Oct, [facility] [place] [facility] [address] [id number] [place] [address] Oct, [facility] [place] [facility] [address] [id number] [place] [address] Oct, [facility] [place] [facility] [address] [id number] [place] [address] Sep, [facility] [place] [facility] [address] [id number] [place] [address] Sep, [facility] [place] [facility] [address] [id number] [place] [address] Sep, [facility] [place] [facility] [address] [id number] [place] [address] Sep, [facility] [place] [facility] [address] [id number] [place] [address] Sep, [facility] [place] [facility] [address] [id number] [place] [address] Sep, [facility] [place] [facility] [address] [id number] [place] [address] Aug, [facility] [place] [facility] [address] [id number] [place] [address] Aug, [facility] [place] [facility] [address] [id number] [place] [address] Aug, [facility] [place] [facility] [address] [id number] [place] [address] Aug, [facility] [place] [facility] [address] [id number] [place] [address] Aug, [facility] [place] [facility] [address] [id number] [place] [address] Aug, [facility] [place] [facility] [address] [id number] [place] [address] Aug, [facility] [place] [facility] [address] [id number] [place] [address] Aug, [facility] [place] [facility] [address] [id number] [place] [address] Aug, [facility] [place] [facility] [address] [id number] [place] [address] Aug, [facility] [place] [facility] [address] [id number] [place] [address] Jul, [facility] [place] [facility] [address] [id number] [place] [address] Jul, [facility] [place] [facility] [address] [id number] [place] [address] Jul, [facility] [place] [facility] [address] [id number] [place] [address] Jul, [facility] [place] [facility] [address] [id number] [place] [address] Jun, [facility] [place] [facility] [address] [id number] [place] [address] Jun, [facility] [place] [facility] [address] [facility] [id number] [place] [address] Jun, [facility] [place] [facility] [address] [facility] [id number] [place] [address] Jun, [facility] [place] [facility] [address] [id number] [place] [address] Jun, [facility] [place] [facility] [address] [facility] [id number] [place] [address] Jun, [facility] [place] [facility] [address] [facility] [id number] [place] [address] Jun, [facility] [place] [facility] [address] [id number] [place] [address] Jun, [facility] [place] [facility] [address] [id number] [place] [address] May, [facility] [place] [facility] [address] [id number] [place] [address] 24 May, 2014 [facility] [place] [facility] [address] [id number] [place] [address] 19 May, 2014 [facility] [place] [facility] [address] [id number] [place] [address] 19 May, 2014 [facility] [place] [facility] [address] [id number] [place] [address] 15 May, 2014 [facility] [place] [facility] [address] [id number] [place] [address] 15 May, 2013 [facility] [place] [facility] [address] [facility] [id number] [place] [address] 15 May, 2013 [facility] [place] [facility] [address] [id number] [place] [address] 15 May, 2014 [facility] [place] [facility] [address] [id number] [place] [address] Apr, [facility] [place] [facility] [address] [id number] [place] [address] Apr, [facility] [place] [facility] [address] [facility] [id number] [place] [address] Apr, [facility] [place] [facility] [address] [facility] [id number] [place] [address] Apr, [facility] [place] [facility] [address] [facility] [id number] [place] [address] Apr, [facility] [place] [facility] [address] [id number] [place] [address] Apr, [facility] [place] [facility] [address] [id number] [place] [address] Apr, [facility] [place] [facility] [address] [id number] [place] [address] Apr, [facility] [place] [facility] [address] [id number] [place] [address] Apr, [facility] [place] [facility] [address] [id number] [place] [address] Apr, [facility] [place] [facility] [address] [id number] [place] [address] Apr, [facility] [place] [facility] [address] [id number] [place] [address] Apr, [facility] [place] [facility] [address] [id number] [place] [address] Mar, [facility] [place] [facility] [address] [id number] [place] [address] Mar, [facility] [place] [facility] [address] [id number] [place] [address] Mar, [facility] [place] [facility] [address] [id number] [place] [address] Mar, [facility] [place] [facility] [address] [id number] [place] [address] Mar, [facility] [place] [facility] [address] [id number] [place] [address] Mar, [facility] [place] [facility] [address] [id number] [place] [address] Feb, [facility] [place] [facility] [address] [facility] [id number] [place] [address] Feb, [facility] [place] [facility] [address] [facility] [id number] [place] [address] Feb, [facility] [place] [facility] [address] [id number] [place] [address] Feb, [facility] [place] [facility] [address] [id number] [place] [address] Feb, [facility] [place] [facility] [address] [facility] [id number] [place] [address] Feb, [facility] [place] [facility] [address] [id number] [place] [address] Feb, [facility] [place] [facility] [address] [id number] [place] [address] Feb, [facility] [place] [facility] [address] [id number] [place] [address] Feb, [facility] [place] [facility] [address] [id number] [place] [address] Feb, [facility] [place] [facility] [address] [id number] [place] [address] Feb, [facility] [place] [facility] [address] [id number] [place] [address] Feb, [facility] [place] [facility] [address] [id number] [place] [address] Feb, [facility] [place] [facility] [address] [id number] [place] [address] Feb, [facility] [place] [facility] [address] [id number] [place] [address] January, [facility] [place] [facility] [address] [id number] [place] [address] January, [facility] [place] [facility] [address] [id number] [place] [address] January, [facility] [place] [facility] [address] [id number] [place] [address] January, [facility] [place] [facility] [address] [facility] [id number] [facility] [place] [address] January, [facility] [place] [facility] [address] [facility] [id number] [facility] [place] [address] January, [facility] [place] [facility] [address] [id number] [facility] [place] [address] Dec, [facility] [place] [facility] [address] [id number] [place] [address] Dec, [facility] [place] [facility] [address] [facility] [id number] [place] [address] Dec, [facility] [place] [facility] [address] [id number] [place] [address] Dec, [facility] [place] [facility] [address] [id number] [facility] [place] [address] Dec, [facility] [place] [facility] [address] [id number] [facility] [place] [address] Dec, [facility] [place] [facility] [address] [facility] [id number] [facility] [place] [address] Dec, [facility] [place] [facility] [address] [id number] [place] [address] Dec, [facility] [place] [facility] [address] [id number] [place] [address] Nov, [facility] [place] [facility] [address] [id number] [facility] [place] [address] Nov, [facility] [place] [facility] [address] [facility] [id number] [facility] [place] [address] Nov, [facility] [place] [facility] [address] [id number] [place] [address] Nov, [facility] [place] [facility] [address] [id number] [facility] [place] [address] Nov, [facility] [place] [facility] [address] [id number] [facility] [place] [address] Nov, [facility] [place] [facility] [address] [facility] [id number] [place] [address] Nov, [facility] [place] [facility] [address] [facility] [id number] [place] [address] Nov, [facility] [place] [facility] [address] [id number] [place] [address] Oct, [facility] [place] [facility] [address] [id number] [place] [address] Oct, [facility] [place] [facility] [address] [id number] [place] [address] Oct, [facility] [place] [facility] [address] [id number] [place] [address] Oct, [facility] [place] [facility] [address] [id number] [place] [address] Oct, [facility] [place] [facility] [address] [id number] [place] [address] Oct, [facility] [place] [facility] [address] [id number] [place] [address] Oct, [facility] [place] [facility] [address] [id number] [place] [address] Oct, [facility] [place] [facility] [address] [id number] [place] [address] Oct, [facility] [place] [facility] [address] [id number] [place] [address] Oct, [facility] [place] [facility] [address] [id number] [place] [address] Sep, [facility] [place] [facility] [address] [id number] [place] [address] Sep, [facility] [place] [facility] [address] [id number] [place] [address] Sep, [facility] [place] [facility] [address] [id number] [place] [address] Sep, [facility] [place] [facility] [address] [id number] [place] [address] Sep, [facility] [place] [facility] [address] [id number] [place] [address] Sep, [facility] [place] [facility] [address] [id number] [place] [address] Aug, [facility] [place] [facility] [address] [id number] [place] [address] Aug, [facility] [place] [facility] [address] [id number] [place] [address] Aug, [facility] [place] [facility] [address] [id number] [place] [address] Aug, [facility] [place] [facility] [address] [id number] [place] [address] Aug, [facility] [place] [facility] [address] [id number] [place] [address] Aug, [facility] [place] [facility] [address] [id number] [place] [address] Aug, [facility] [place] [facility] [address] [id number] [place] [address] Aug, [facility] [place] [facility] [address] [id number] [place] [address] Jul, [facility] [place] [facility] [address] [id number] [place] [address] Jul, [facility] [place] [facility] [address] [id number] [place] [address] Jul, [facility] [place] [facility] [address] [id number] [place] [address] Jul, [facility] [place] [facility] [address] [id number] [place] [address] Jul, [facility] [place] [facility] [address] [id number] [place] [address] Jul, [facility] [place] [facility] [address] [id number] [place] [address] Jun, [facility] [place] [facility] [address] [facility] [id number] [place] [address] Jun, [facility] [place] [facility] [address] [facility] [id number] [place] [address] Jun, [facility] [place] [facility] [address] [facility] [id number] [place] [address] May, [facility] [place] [facility] [address] [id number] [place] [address] May, [facility] [place] [facility] [address] [id number] [place] [address] May, [facility] [place] [facility] [address] [id number] [place] [address] Apr, [facility] [place] [facility] [address] [id number] [place] [address] Apr, [facility] [place] [facility] [address] [id number] [place] [address] Apr, [facility] [place] [facility] [address] [id number] [place] [address] Apr, [facility] [place] [facility] [address] [id number] [place] [address] Mar, [facility] [place] [facility] [address] [id number] [place] [address] Mar, [facility] [place] [facility] [address] [id number] [place] [address] Mar, [facility] [place] [facility] [address] [id number] [place] [address] Mar, [facility] [place] [facility] [address] [id number] [place] [address] Feb, [facility] [place] [facility] [address] [id number] [place] [address] Feb, [facility] [place] [facility] [address] [id number] [place] [address] Feb, [facility] [place] [facility] [address] [id number] [place] [address] Feb, [facility] [address] [id number] [place] [address] January, [facility] [address] [id number] [place] [address] January, [facility] [place] [facility] [address] [id number] [place] [address] January, [facility] [address] [id number] [place] [address] Nov, [facility] [place] [facility] [address] [id number] [place] [address] Nov, [facility] [address] [id number] [place] [address] Oct, [facility] [place] [facility] [address] [id number] [place] [address] Oct, [facility] [place] [facility] [address] [id number] [place] [address] Oct, [facility] [place] [facility] [address] [id number] [place] [address] Oct, [facility] [place] [facility] [address] [id number] [place] [address] Sep, [facility] [place] [place] [facility] [address] [id number] [place] [address] Sep, [facility] [place] [facility] [address] [id number] [place] [address] Sep, [facility] [place] [facility] [address] [id number] [place] [address] Aug, [facility] [place] [facility] [address] [id number] [place] [address] Aug, [facility] [place] [facility] [address] [id number] [place] [address] Aug, [facility] [place] [facility] [address] [id number] [place] [address] Aug, [facility] [place] [facility] [address] [id number] [place] [address] Aug, [facility] [place] [facility] [address] [id number] [place] [address] Aug, [facility] [place] [facility] [address] [id number] [place] [address] Jul, [facility] [place] [facility] [address] [id number] [place] [address] Jul, [facility] [place] [facility] [address] [id number] [place] [address] Jun, [facility] [place] [facility] [address] [id number] [place] [address] Jun, [facility] [place] [facility] [address] [id number] [place] [address] Jun, [facility] [place] [facility] [address] [id number] [place] [address] Apr, [facility] [place] [facility] [address] [id number] [place] [address] Apr, [facility] [address] [facility] [id number] [place] [address] Mar, [facility] [address] [facility] [id number] [place] [address] Mar, [facility] [address] [facility] [id number] [place] [address] Mar, [facility] [address] [facility] [id number] [place] [address] Mar, [facility] [address] [facility] [id number] [place] [address] Feb, [facility] [id number] [place] [address] Feb, [facility] [address] [facility] [id number] [place] [address] Feb, [facility] [address] [facility] [id number] [place] [address] January, [facility] [address] [facility] [id number] [place] [address] January, [facility] [address] [facility] [id number] [place] [address] January, [facility] [address] [facility] [id number] [place] [address] January, [facility] [id number] [place] [address] Dec, [facility] [address] [facility] [id number] [place] [address] Dec, [facility] [address] [facility] [id number] [place] [address] Nov, [facility] [address] [facility] [id number] [place] [address] Nov, [facility] [address] [id number] [place] [address] Oct, [facility] [address] [facility] [id number] [place] [address] Oct, [facility] [address] [facility] [id number] [place] [address] Sep, [facility] [address] [facility] [id number] [place] [address] Sep, [facility] [address] [id number] [place] [address] Sep, [facility] [address] [id number] [place] [address] Sep, [facility] [address] [id number] [place] [address] Aug, [facility] [address] [id number] [place] [address] Aug, [facility] [address] [id number] [place] [address] Aug, [facility] [address] [id number] [place] [address] Jul, [facility] [id number] [place] [address] Aug, [facility] [id number] [place] [address] Aug, [facility] [id number] [place] [address] Aug, [facility] [id number] [place] [address] Aug, [facility] [id number] [place] [address] Jul, [facility] [id number] [place] [address] Jul, [facility] [id number] [place] [address] Jul, [facility] [id number] [place] [address] Jun, [facility] [id number] [place] [address] Jun, [facility] [address] [id number] [place] [address] Jun, [facility] [id number] [place] [address] Apr, [facility] [id number] [place] [address] Mar, IMMUNIZATIONS No Known Immunizations SOCIAL HISTORY [...]
--- OUTSIDE RECORDS SUMMARY | 2020-03-18 15:13 | XMS REPORT ---
Author Author George Marx Doctor Organization [facility] Address Unknown Phone Unavailable Care Team Providers Care Percussion Instructor Name Role Phone Migration, Doctor Unavailable Unavailable PROBLEMS Type Condition ICD9-CM Code ZCG05-GL Code Onset Dates Condition S tatus SNOMED Code Problem Hypertension, benign I10 Active 56699062 Problem Other chronic pain G89.29 Active 8 6438610 Problem Lumbago with sciatica, unspecified side M54.40 Active 898072284 Problem Controlled type 2 diabetes m ellitus without complication, without long- term current use of insulin E11.9 Active 687013845 Problem Lumbago with sciatica, right side M54.41 Active 730648025 Problem Adjustment disorder with disturbance of emotion F4 3.29 Active 36475522 Problem MELE (obstructive sleep apnea) G47.33 Active 02326710 Problem Non morbid obesity E66.9 Active 4 68990562 Problem Hammer toe of left foot M20.42 Active 645567147 Problem Mood disorder F39 Active 513867 05 Problem Deformity of left foot M21.962 Active 127751647 Problem Lumbago with sciatica, left side M54.42 Active 373546709 Problem Erectile dysfunction due to diseases classified elsewhere N52.1 Active 161999679 Problem Obstructive sleep apnea syndrome G47.33 Active 27129337 Problem Type 2 diabetes mellitus wit h diabetic neuropathy, without long-term current use of insulin E11.40 Active 52043 006 Problem Essential hypertension I10 Active 71806925 ALLERGIES No Information ENCOUNTERS Encounter Location Date Diagnosis [facility] [address] [id number] [place] [address] Sep, [facility] [id number] [place] [address] Aug, [facility] [id number] [place] [address] Jul, Lumbago with sciatica, unspecified side M54.40 [facility] [address] [address] Jun, Lumbago with sciatica, unspecified side M54.40 [place] [address] [address] Jun, URI, acute J06.9 [facility] [address] [address] May, Lumbago with sciatica, unspecified side M54.40 [place] [address] [address] May, [place] [address] [address] May, Type 2 diabetes mellitus with diabetic n europathy, without long-term current use of insulin E11.40 and Hammer toe of left foot M20.42 [place] [address] [address] May, [place] [address] [address] May, [facility] [address] [address] May, [facility] [address] [address] Apr, Lumbago with sciatica, unspecified side M54.40 [place] [address] [address] Apr, [facility] [address] [address] Apr, [address] [place] [address] Apr, Hammer toe of left foot M20. 42 ; Chest pain R07.9 ; Preoperative examination Z01.818 and Morbid obesity E66.01 [facility] [address] [address] Apr, Morbid obesity E66.01 ; Bronchitis J40 a nd High risk medications (not anticoagulants) long-term use Z79.899 [place] [address] [address] Apr, Lumbago with sciatica, unspecified side M54.40 [place] [address] [address] Apr, [place] [address] [address] Mar, Lumbar neuritis M54.16 and Morbid obesit y E66.01 [place] [address] [address] Mar, [place] [address] [address] Mar, [place] [address] [address] Mar, Lumbago with sciatica, unspecified side M54.40 [place] [address] [address] Mar, Morbid obesity E66.01 ; Coughing R05 ; 2 + pitting edema R60.9 and Controlled type 2 diabetes mellitus without complication, without long-term current use of insulin E11.9 [place] [address] [address] Feb, [place] [address] [address] Feb, Lumbago with sciatica, unspecified side M54.40 [place] [address] [address] Feb, [place] [address] [address] Feb, Controlled type 2 diabetes mellitus with out complication, without long-term current use of insulin E11.9 and Morbid obesity E66.01 [place] [address] [address] January, Deformity of left foot M21.962 [facility] [address] [address] January, [facility] [address] [address] January, Lumbago with sciatica, unspecified side M54.40 [place] [address] [address] January, [facility] [address] [address] January, Lumbago with sciatica, unspecified side M54.40 [place] [address] [address] January, [place] [address] [address] January, Acute right-sided thoracic back pain M54 .6 [place] [address] [address] January, Acute right-sided thoracic back pain M54 .6 [place] [address] [address] January, Chest pain, unspecified type R07.9 ; Mor bid obesity E66.01 and Scabies B86 [place] [address] [address] Dec, Lumbago with sciatica, unspecified side M54.40 [place] [address] [address] Dec, Toenail fungus B35.1 [place] [address] [address] Dec, Toenail fungus B35.1 [place] [address] [address] Dec, Acute right-sided thoracic back pain M54 .6 [place] [address] [address] Dec, Lumbago with sciatica, unspecified side M54.40 [place] [address] [address] Nov, Hammer toe of left foot M20.42 ; Deformi ty of left foot M21.962 and Type 2 diabetes mellitus with diabetic neuropathy, without long-term current use of insulin E11.40 [facility] [address] [facility] [id number] [address] [address] Nov, Acute right-sided thoracic b ack pain M54.6 ; Morbid obesity E66.01 and Rt flank pain R10.9 [place] [address] [address] Nov, Lumbago with sciatica, unspecified side M54.40 [place] [address] [address] Oct, Lumbago with sciatica, unspecified side M54.40 [place] [address] [address] Sep, Lumbago with sciatica, unspecified side M54.40 [place] [address] [address] Sep, [place] [address] [address] Sep, BMI 40.0-44.9, adult Z68.41 ; Lumbago wi th sciatica, left side M54.42 ; Lumbago with sciatica, right side M54.41 and Other chronic pain G89.29 [place] [address] [address] Aug, Lumbago with sciatica, unspecified side M54.40 [place] [address] [address] Aug, Type 2 diabetes mellitus with diabetic n europathy, without long-term current use of insulin E11.40 ; Hammer toe of left foot M20.42 ; Hypertension, benign I10 and Frequent headaches R51 [place] [address] [place] [address] Jul, Lumbago with sciatica, unspecified side M54.40 [place] [address] [address] Jul, [place] [address] Jul, Essential hypertension I10 and Controlle d type 2 diabetes mellitus without complication, without long-term current use of insulin E11.9 [place] [address] [place] [address] Jul, Essential hypertension I10 ; Controlled type 2 diabetes mellitus without complication, without long-term current use of insulin E11.9 and BMI 40.0-44.9, adult Z68.41 [place] [address] [address] Jul, Dysfunction of left eustachian tube H69. 82 [place] [address] [address] Jul, Lumbago with sciatica, unspecified side M54.40 [facility] [id number] [place] [id number] Jun, Dental examination Z01.20 [place] [address] [address] Jun, Lumbago with sciatica, unspecified side M54.40 and Encounter for immunization Z23 [place] [address] [address] Jun, Dysfunction of left eustachian tube H69. 82 [facility] [address] [id number] [id number] Jun, Dental examination Z01.20 [place] [address] [address] Jun, Other chronic pain G89.29 [facility] [address] [facility] [id number] [place] [id number] Jun, Dental examination Z01.20 [place] [address] [address] Jun, [facility] [address] [address] Jun, Bronchitis J40 ; Dysfunction of left eus tachian tube H69.82 and BMI 45.0-49.9, adult Z68.42 [place] [address] [address] Jun, Lumbago with sciatica, unspecified side M54.40 [place] [address] [address] May, Type 2 diabetes mellitus with diabetic n europathy, without long-term current use of insulin E11.40 and Hypertension, benign I10 [place] [address] [address] May, Lumbago with sciatica, unspecified side M54.40 [facility] [address] [facility] [id number] [address] [place] [address] Apr, [place] [address] [address] Apr, Controlled type 2 diabetes mellitus with out complication, without long-term current use of insulin E11.9 ; Insect bite (nonvenomous), right ankle, initial encounter S90.561A ; Local infection of the skin and subcutaneous tissue, unspecified L08.9 ; Acute swimmer''s ear of left side H60.332 and BMI 45.0-49.9, adult Z68.42 [place] [address] [address] Apr, Lumbago with sciatica, unspecified side M54.40 [place] [address] [address] Mar, [place] [address] [address] Mar, Lumbago with sciatica, unspecified side M54.40 [place] [address] [address] Feb, Lumbago with sciatica, unspecified side M54.40 [place] [address] [address] Feb, BMI 45.0-49.9, adult Z68.42 and Obstruct jaida sleep apnea syndrome G47.33 [place] [address] [address] January, Lumbar neuritis M54.16 [place] [address] [address] January, Lumbago with sciatica, unspecified side M54.40 [place] [address] [address] Dec, Controlled type 2 diabetes mellitus with out complication, without long-term current use of insulin E11.9 ; Erectile dysfunction due to diseases classified elsewhere N52.1 and Mood disorder F39 [place] [address] [address] Dec, Lumbago with sciatica, unspecified side M54.40 [place] [address] [address] Dec, Obstructive sleep apnea syndrome G47.33 [place] [address] [address] Nov, Lumbago with sciatica, unspecified side M54.40 ; Hypertension, benign I10 and Mood disorder F39 [place] [address] [address] Nov, Other chronic pain G89.29 [place] [address] [address] Nov, Lumbago with sciatica, unspecified side M54.40 [facility] [address] [id number] Nov, Dental examination Z01.20 [facility] [address] [address] Oct, [facility] [address] [address] Oct, Lumbago with sciatica, unspecified side M54.40 [facility] [address] [address] Oct, Lumbago with sciatica, unspecified side M54.40 [facility] [address] [address] Oct, [facility] [address] [address] Oct, [facility] [address] [id number] Oct, Dental examination Z01.20 [facility] [address] [address] Oct, [facility] [address] [address] Oct, Pain in right knee M25.561 [facility] [address] [address] Sep, [facility] [address] [address] Sep, Other chronic pain G89.29 [facility] [address] [address] Sep, Lumbago with sciatica, unspecified side M54.40 [facility] [address] [facility] [place] [address] Sep, [facility] [address] [facility] [id number] [address] [place] [address] Sep, Viral URI J06.9 and BMI 45.0 -49.9, adult Z68.42 [facility] WALK IN [facility] [address] [address] Aug, Foreign body hand S60.559A a nd BMI 45.0-49.9, adult Z68.42 [place] [address] [address] Aug, [place] [address] [address] Aug, Lumbago with sciatica, unspecified side M54.[address] [address] Aug, Vertigo R42 ; Dysfunction of both eustac hian tubes H69.83 ; Low back pain M54.5 and Other chronic pain G89.29 [facility] WALK IN [facility] [id number] [place] [address] Aug, Dizziness R42 and Acute bila teral otitis media H66.[address] [address] Aug, Lumbago with sciatica, unspecified side M54.40 [facility] [id number] [place] [id number] Jul, Dental examination Z01.20 [place] [address] [address] Jul, [place] [address] [address] Jul, [address] [address] Jul, Dysfunction of both eustachian tubes H69 .83 [place] [address] [address] 07 Jul, 2017 Controlled type 2 diabetes mellitus with out complication, without long-term current use of insulin E11.9 [facility] [address] [address] Jul, Controlled type 2 diabetes mellitus with out complication, without long-term current use of insulin E11.9 [facility] [address] [facility] [id number] [address] [place] [address] Jul, Dizziness R42 and BMI 40.0-4 4.9, adult Z68.41 [facility] [address] [address] Jul, Controlled type 2 diabetes mellitus with out complication, without long-term current use of insulin E11.9 [facility] [address] [address] Jul, Lumbago with sciatica, unspecified side M54.40 [facility] [address] [id number] Jul, Dental examination Z01.20 [facility] [address] [address] Jun, [facility] [address] [id number] Jun, Dental examination Z01.20 [facility] [address] [address] Jun, Controlled type 2 diabetes mellitus with out complication, without long-term current use of insulin E11.9 [facility] [address] [address] Jun, Lumbago with sciatica, unspecified side M54.40 [facility] [address] [id number] May, Dental examination Z01.20 [facility] [address] [address] May, Controlled type 2 diabetes mellitus with out complication, without long-term current use of insulin E11.9 [facility] [address] [id number] May, Dental examination Z01.20 [facility] [address] [address] 18 May, 2017 Bronchitis J40 ; Dry mouth R68.2 ; Non m orbid obesity E66.9 and Controlled type 2 diabetes mellitus without complication, without long-term current use of insulin E11.9 [facility] WALK IN [facility] [address] [address] 16 May, 2017 Encounter for immunization Z 23 [facility] [address] [address] 07 May, 2017 Lumbago with sciatica, unspecified side M54.40 [place] [address] [address] 05 May, 2017 [facility] [address] [id number] Apr, Dental examination Z01.20 [place] [address] [address] Apr, Lumbago with sciatica, unspecified side M54.40 [facility] WALK IN [facility] [address] [address] Mar, Lumbago with sciatica, left side M54.42 [place] [address] [address] Mar, [place] [address] [address] Mar, Lumbar neuritis M54.16 [facility] [address] [address] Mar, [facility] [address] [id number] Mar, Dental examination Z01.20 [facility] [address] [address] Mar, MELE (obstructive sleep apnea) G47.33 ; N europathy involving both lower extremities G57.93 and Frequent headaches R51 [place] [address] [address] Mar, Lumbago with sciatica, unspecified side M54.40 [place] [address] [address] Feb, Lumbago with sciatica, unspecified side M54.40 and Controlled type 2 diabetes mellitus without complication, without long-term current use of insulin E11.9 [place] [address] [address] January, Hypertension, benign I10 and Bilateral l ow back pain with sciatica, sciatica laterality unspecified M54.40 [place] [address] [address] January, Hypertension, benign I10 ; Lumbago with sciatica, unspecified side M54.40 ; Other chronic pain G89.29 and Controlled type 2 diabetes mellitus without complication, without long-term current use of insulin E11.9 [place] [address] [address] January, Lumbar neuritis M54.16 [place] [address] [address] January, [place] [address] [address] Dec, Lumbago with sciatica, right side M54.41 and Lumbar neuritis M54.16 [place] [address] [address] Dec, Lumbar neuritis M54.16 [place] [address] [address] Dec, Lumbar neuritis M54.16 [place] [address] [address] Nov, Lumbar neuritis M54.16 ; Lumbago with sc iatica, right side M54.41 ; Controlled type 2 diabetes mellitus without complication, without long-term current use of insulin E11.9 and Rash and nonspecific skin eruption R21 [place] [address] [address] Nov, Lumbar neuritis M54.16 and Poison miroslava L2 3.7 [place] [address] [address] 16 Oct, 2016 Lumbar neuritis M54.16 ; Coughing R05 an d Mood disorder F39 [place] [address] [address] Sep, Lumbago with sciatica, right side M54.[address] [address] Sep, Adjustment disorder with disturbance of emotion F43.29 and Pain management R52 [address] [address] Sep, [place] [address] [address] Sep, [place] [address] [address] Sep, Controlled type 2 diabetes mellitus with out complication, without long-term current use of insulin E11.9 and Lumbago with sciatica, unspecified side M54.[address] [address] Aug, Controlled type 2 diabetes mellitus with out complication, without long-term current use of insulin E11.9 ; Pain in right knee M25.561 ; Pain in left knee M25.562 ; Other chronic pain G89.29 ; Lumbago with sciatica, right side M54.41 ; Neck pain M54.2 and Encounter for immunization Z23 [place] [address] [address] Jul, [address] [address] Jul, Controlled type 2 diabetes mellitus with out complication, without long-term current use of insulin E11.9 [facility] [address] [address] 17 Jul, 2016 [facility] [address] [address] Jul, [facility] [address] [address] Jul, Lumbago with sciatica, left side M54.42 ; Lumbago with sciatica, right side M54.41 and Other chronic pain G89.29 [place] [address] [address] Jul, [place] [address] [address] Jul, [place] [address] [address] Jun, [facility] [address] [address] Jun, Lumbago with sciatica, right side M54.41 and Other chronic pain G89.29 [facility] [address] [address] Jun, Cervicalgia M54.2 ; Lumbago with sciatic a, unspecified side M54.40 and Other chronic pain G89.29 [place] [address] [address] 15 May, 2016 Pain in right knee M25.561 ; Pain in lef t knee M25.562 and Other chronic pain G89.29 [facility] [address] [address] 14 May, 2016 [place] [address] [address] Apr, Other chronic pain G89.29 and Pain in ri ght knee M25.561 [facility] [address] [address] Apr, Pain in right knee M25.561 [place] [address] [address] Mar, [place] [address] [address] Mar, Mood disorder F39 and Controlled type 2 diabetes mellitus without complication, without long-term current use of insulin E11.9 [place] [address] [address] Mar, Pain in right knee M25.561 ; Pain in lef t knee M25.562 ; Other chronic pain G89.29 ; Obstructive sleep apnea syndrome G47.33 ; Mood disorder F39 and Controlled type 2 diabetes mellitus without complication, without long-term current use of insulin E11.9 [place] [address] [address] Mar, [facility] [address] [id number] Feb, Dental examination Z01.20 [place] [address] [address] Feb, [address] [address] Feb, Osteoarthritis of right knee, unspecifie d osteoarthritis type M17.9 [place] [address] [address] January, [facility] [address] [id number] January, Dental examination Z01.20 [place] [address] [address] January, [facility] [address] [id number] January, Dental examination Z01.20 and Caries K02 .[address] [address] Dec, Encounter for other preprocedural examin ation Z01.818 [facility] [id number] [place] [address] Dec, [facility] [address] [address] Dec, Knee pain M25.569 [facility] [address] [address] Dec, Pain in right knee M25.561 [facility] [address] [address] Dec, [facility] [address] [address] Dec, [facility] [address] [address] Dec, Encounter for immunization Z23 [facility] [address] [address] Dec, [facility] [address] [address] Dec, [facility] [address] [address] Nov, [facility] [address] [address] Nov, Hypertension, benign I10 ; Cervicalgia M 54.2 ; Pain in right knee M25.561 and Pain in left knee M25.562 [facility] [address] [address] Oct, [facility] [address] [address] Oct, [facility] [address] [address] Oct, Osteoarthritis of both knees M17.0 [facility] [address] [address] 08 Oct, 2015 [facility] [address] [address] 08 Oct, 2015 Low back pain M54.5 [place] [address] [address] Oct, Low back pain M54.5 ; Sciatica, unspecif ied side M54.30 ; Pain in right knee M25.561 ; Pain in left knee M25.562 ; Pain in right shoulder M25.511 and Pain in left shoulder M25.512 [place] [address] [address] Oct, [address] [address] Sep, Pain in right hip M25.[address] [address] Sep, Acute upper respiratory infection, unspe cified J06.[address] [address] Aug, Acute upper respiratory infection, unspe cified J06.9 and Other viral agents as the cause of diseases classified elsewhere B97.[address] [address] Jul, Arthritis M19.[address] [address] Jun, Arthritis M19.90 ; Pain in right hip M25 .551 ; Pain in left hip M25.552 ; Bilateral low back pain with sciatica, sciatica laterality unspecified M54.40 ; Neck pain M54.2 ; Upper back pain M54.9 and Knee pain, unspecified laterality M25.[address] [address] May, Osteoarthritis of both knees 715.[address] [address] May, Rash 782.1 [address] [address] [place] [address] Apr, Lumbar strain 847.2 [facility] [address] [address] Apr, Rash 782.1 [facility] [address] [address] Mar, Rash 782.1 [facility] [address] [address] Feb, Rash 782.1 ; Hemorrhoids 455.6 and Const ipation 564.00 [facility] [address] [address] Feb, Osteoarthritis of both knees 715.96 [facility] [address] [address] January, [facility] [address] [address] Dec, [facility] [address] [address] Dec, [facility] [address] [address] Dec, [facility] [address] [address] Nov, [facility] [address] [address] Nov, [facility] [address] [address] Nov, [facility] [address] [address] Nov, [facility] [address] [address] Nov, [facility] [address] [address] Nov, [facility] [address] [address] Oct, [facility] [place] [facility] [address] [id number] [place] [address] Oct, [facility] [place] [facility] [address] [id number] [place] [address] Oct, [facility] [place] [facility] [address] [id number] [place] [address] Oct, [facility] [place] [facility] [address] [id number] [place] [address] Oct, [facility] [place] [facility] [address] [id number] [place] [address] Oct, [facility] [place] [facility] [address] [id number] [place] [address] Oct, [facility] [place] [facility] [address] [id number] [place] [address] Oct, [facility] [place] [facility] [address] [id number] [place] [address] Oct, [facility] [place] [facility] [address] [id number] [place] [address] Oct, [facility] [place] [facility] [address] [id number] [place] [address] Oct, [facility] [place] [facility] [address] [id number] [place] [address] Sep, [facility] [place] [facility] [address] [id number] [place] [address] Sep, [facility] [place] [facility] [address] [id number] [place] [address] Sep, [facility] [place] [facility] [address] [id number] [place] [address] Sep, [facility] [place] [facility] [address] [id number] [place] [address] Sep, [facility] [place] [facility] [address] [id number] [place] [address] Sep, [facility] [place] [facility] [address] [id number] [place] [address] Aug, [facility] [place] [facility] [address] [id number] [place] [address] Aug, [facility] [place] [facility] [address] [id number] [place] [address] Aug, [facility] [place] [facility] [address] [id number] [place] [address] Aug, [facility] [place] [facility] [address] [id number] [place] [address] Aug, [facility] [place] [facility] [address] [id number] [place] [address] Aug, [facility] [place] [facility] [address] [id number] [place] [address] Aug, [facility] [place] [facility] [address] [id number] [place] [address] Aug, [facility] [place] [facility] [address] [id number] [place] [address] Aug, [facility] [place] [facility] [address] [id number] [place] [address] Aug, [facility] [place] [facility] [address] [id number] [place] [address] Jul, [facility] [place] [facility] [address] [id number] [place] [address] Jul, [facility] [place] [facility] [address] [id number] [place] [address] Jul, [facility] [place] [facility] [address] [id number] [place] [address] Jul, [facility] [place] [facility] [address] [id number] [place] [address] Jun, [facility] [place] [facility] [address] [id number] [place] [address] Jun, [facility] [place] [facility] [address] [id number] [place] [address] Jun, [facility] [place] [facility] [address] [facility] [id number] [place] [address] Jun, [facility] [place] [facility] [address] [facility] [id number] [place] [address] Jun, [facility] [place] [facility] [address] [id number] [place] [address] Jun, [facility] [place] [facility] [address] [facility] [id number] [place] [address] Jun, [facility] [place] [facility] [address] [facility] [id number] [place] [address] Jun, [facility] [place] [facility] [address] [id number] [place] [address] May, [facility] [place] [facility] [address] [id number] [place] [address] 24 May, 2014 [facility] [place] [facility] [address] [id number] [place] [address] 19 May, 2013 [facility] [place] [facility] [address] [facility] [id number] [place] [address] 19 May, 2014 [facility] [place] [facility] [address] [id number] [place] [address] 15 May, 2014 [facility] [place] [facility] [address] [id number] [place] [address] 15 May, 2014 [facility] [place] [facility] [address] [id number] [place] [address] 15 May, 2013 [facility] [place] [facility] [address] [facility] [id number] [place] [address] 15 May, 2013 [facility] [place] [facility] [address] [id number] [place] [address] Apr, [facility] [place] [facility] [address] [facility] [id number] [place] [address] Apr, [facility] [place] [facility] [address] [id number] [place] [address] Apr, [facility] [place] [facility] [address] [facility] [id number] [place] [address] Apr, [facility] [place] [facility] [address] [facility] [id number] [place] [address] Apr, [facility] [place] [facility] [address] [facility] [id number] [place] [address] Apr, [facility] [place] [facility] [address] [id number] [place] [address] Apr, [facility] [place] [facility] [address] [id number] [place] [address] Apr, [facility] [place] [facility] [address] [id number] [place] [address] Apr, [facility] [place] [facility] [address] [id number] [place] [address] Apr, [facility] [place] [facility] [address] [id number] [place] [address] Apr, [facility] [place] [facility] [address] [id number] [place] [address] Apr, [facility] [place] [facility] [address] [id number] [place] [address] Mar, [facility] [place] [facility] [address] [id number] [place] [address] Mar, [facility] [place] [facility] [address] [id number] [place] [address] Mar, [facility] [place] [facility] [address] [id number] [place] [address] Mar, [facility] [place] [facility] [address] [id number] [place] [address] Mar, [facility] [place] [facility] [address] [id number] [place] [address] Mar, [facility] [place] [facility] [address] [id number] [place] [address] Feb, [facility] [place] [facility] [address] [id number] [place] [address] Feb, [facility] [place] [facility] [address] [facility] [id number] [place] [address] Feb, [facility] [place] [facility] [address] [id number] [place] [address] Feb, [facility] [place] [facility] [address] [id number] [place] [address] Feb, [facility] [place] [facility] [address] [id number] [place] [address] Feb, [facility] [place] [facility] [address] [facility] [id number] [place] [address] Feb, [facility] [place] [facility] [address] [id number] [place] [address] Feb, [facility] [place] [facility] [address] [id number] [place] [address] Feb, [facility] [place] [facility] [address] [id number] [place] [address] Feb, [facility] [place] [facility] [address] [id number] [place] [address] Feb, [facility] [place] [facility] [address] [id number] [place] [address] Feb, [facility] [place] [facility] [address] [id number] [place] [address] Feb, [facility] [place] [facility] [address] [id number] [place] [address] Feb, [facility] [place] [facility] [address] [id number] [place] [address] January, [facility] [place] [facility] [address] [id number] [place] [address] January, [facility] [place] [facility] [address] [id number] [place] [address] January, [facility] [place] [facility] [address] [id number] [place] [address] January, [facility] [place] [facility] [address] [id number] [place] [address] January, [facility] [place] [facility] [address] [facility] [id number] [facility] [address] January, [facility] [place] [facility] [address] [facility] [id number] [facility] [address] Dec, [facility] [place] [facility] [address] [id number] [place] [address] Dec, [facility] [place] [facility] [address] [id number] [place] [address] Dec, [facility] [place] [facility] [address] [facility] [id number] [place] [address] Dec, [facility] [place] [facility] [address] [id number] [place] [address] Dec, [facility] [place] [facility] [address] [id number] [facility] [address] Dec, [facility] [place] [facility] [address] [id number] [facility] [address] Dec, [facility] [place] [facility] [address] [facility] [id number] [facility] [address] Dec, [facility] [place] [facility] [address] [id number] [facility] [address] Nov, [facility] [place] [facility] [address] [id number] [place] [address] Nov, [facility] [place] [facility] [address] [id number] [facility] [place] [address] Nov, [facility] [place] [facility] [address] [facility] [id number] [facility] [address] Nov, [facility] [place] [facility] [address] [id number] [place] [address] Nov, [facility] [place] [facility] [address] [id number] [place] [address] Nov, [facility] [place] [facility] [address] [id number] [facility] [address] Nov, [facility] [place] [facility] [address] [id number] [place] [address] Nov, [facility] [place] [facility] [address] [facility] [id number] [place] [address] Oct, [facility] [place] [facility] [address] [id number] [place] [address] Oct, [facility] [place] [facility] [address] [id number] [place] [address] Oct, [facility] [place] [facility] [address] [id number] [place] [address] Oct, [facility] [place] [facility] [address] [id number] [place] [address] Oct, [facility] [place] [facility] [address] [id number] [place] [address] Oct, [facility] [place] [facility] [address] [id number] [place] [address] Oct, [facility] [place] [facility] [address] [id number] [place] [address] Oct, [facility] [place] [facility] [address] [id number] [place] [address] Oct, [facility] [place] [facility] [address] [id number] [place] [address] Oct, [facility] [place] [facility] [address] [id number] [place] [address] Sep, [facility] [place] [facility] [address] [id number] [place] [address] Sep, [facility] [place] [facility] [address] [id number] [place] [address] Sep, [facility] [place] [facility] [address] [id number] [place] [address] Sep, [facility] [place] [facility] [address] [id number] [place] [address] Sep, [facility] [place] [facility] [address] [id number] [place] [address] Sep, [facility] [place] [facility] [address] [id number] [place] [address] Aug, [facility] [place] [facility] [address] [id number] [place] [address] Aug, [facility] [place] [facility] [address] [id number] [place] [address] Aug, [facility] [place] [facility] [address] [id number] [place] [address] Aug, [facility] [place] [facility] [address] [id number] [place] [address] Aug, [facility] [place] [facility] [address] [id number] [place] [address] Aug, [facility] [place] [facility] [address] [id number] [place] [address] Aug, [facility] [place] [facility] [address] [id number] [place] [address] Aug, [facility] [place] [facility] [address] [id number] [place] [address] Jul, [facility] [place] [facility] [address] [id number] [place] [address] Jul, [facility] [place] [facility] [address] [id number] [place] [address] Jul, [facility] [place] [facility] [address] [id number] [place] [address] Jul, [facility] [place] [facility] [address] [id number] [place] [address] Jul, [facility] [place] [facility] [address] [id number] [place] [address] Jul, [facility] [place] [facility] [address] [id number] [place] [address] Jun, [facility] [place] [facility] [address] [id number] [place] [address] Jun, [facility] [place] [facility] [address] [facility] [id number] [place] [address] Jun, [facility] [place] [facility] [address] [facility] [id number] [place] [address] May, [facility] [place] [facility] [address] [facility] [id number] [place] [address] May, [facility] [place] [facility] [address] [id number] [place] [address] May, [facility] [place] [facility] [address] [id number] [place] [address] Apr, [facility] [place] [facility] [address] [id number] [place] [address] Apr, [facility] [place] [facility] [address] [id number] [place] [address] Apr, [facility] [place] [facility] [address] [id number] [place] [address] Apr, [facility] [place] [facility] [address] [id number] [place] [address] Mar, [facility] [place] [facility] [address] [id number] [place] [address] Mar, [facility] [place] [facility] [address] [id number] [place] [address] Mar, [facility] [place] [facility] [address] [id number] [place] [address] Mar, [facility] [place] [facility] [address] [id number] [place] [address] Feb, [facility] [place] [facility] [address] [id number] [place] [address] Feb, [facility] [place] [facility] [address] [id number] [place] [address] Feb, [facility] [place] [facility] [address] [id number] [place] [address] Feb, [facility] [place] [facility] [address] [id number] [place] [address] January, [facility] [address] [facility] [id number] [place] [address] January, [facility] [address] [id number] [place] [address] January, [facility] [place] [facility] [address] [id number] [place] [address] Nov, [facility] [place] [facility] [address] [id number] [place] [address] Nov, [facility] [place] [facility] [address] [facility] [id number] [place] [address] Oct, [facility] [place] [facility] [address] [id number] [place] [address] Oct, [facility] [place] [facility] [address] [id number] [place] [address] Oct, [facility] [place] [facility] [address] [id number] [place] [address] Oct, [facility] [address] [id number] [place] [address] Sep, [facility] [place] [facility] [address] [id number] [place] [address] Sep, [facility] [place] [facility] [address] [id number] [place] [address] Sep, [facility] [place] [facility] [address] [id number] [place] [address] Aug, [facility] [place] [facility] [address] [id number] [place] [address] Aug, [facility] [place] [facility] [address] [id number] [place] [address] Aug, [facility] [place] [facility] [address] [id number] [place] [address] Aug, [facility] [place] [facility] [address] [id number] [place] [address] Aug, [facility] [place] [facility] [address] [id number] [place] [address] Aug, [facility] [place] [facility] [address] [id number] [place] [address] Jul, [facility] [place] [facility] [address] [id number] [place] [address] Jul, [facility] [place] [facility] [address] [id number] [place] [address] Jun, [facility] [place] [facility] [address] [id number] [place] [address] Jun, [facility] [place] [facility] [address] [id number] [place] [address] Jun, [facility] [place] [facility] [address] [id number] [place] [address] Apr, [facility] [place] [facility] [address] [id number] [place] [address] Apr, [facility] [place] [facility] [address] [id number] [place] [address] Mar, [facility] [address] [id number] [place] [address] Mar, [facility] [address] [id number] [place] [address] Mar, [facility] [address] [id number] [place] [address] Mar, [facility] [address] [id number] [place] [address] Feb, [facility] [address] [id number] [place] [address] Feb, [facility] [address] [id number] [place] [address] Feb, [facility] [address] [id number] [place] [address] January, [facility] [address] [id number] [place] [address] January, [facility] [address] [id number] [place] [address] January, [facility] [address] [id number] [place] [address] January, [facility] [address] [id number] [place] [address] Dec, [facility] [id number] [place] [address] Dec, [facility] [address] [id number] [place] [address] Nov, [facility] [address] [id number] [place] [address] Nov, [facility] [address] [id number] [place] [address] Oct, [facility] [id number] [place] [address] Oct, [facility] [address] [id number] [place] [address] Sep, [facility] [address] [id number] [place] [address] Sep, [facility] [address] [id number] [place] [address] Sep, [facility] [address] [id number] [place] [address] Sep, [facility] [address] [id number] [place] [address] Aug, [facility] [address] [id number] [place] [address] Aug, [facility] [address] [id number] [place] [address] Aug, [facility] [address] [id number] [place] [address] Jul, [facility] [id number] [place] [address] Aug, [facility] [address] [id number] [place] [address] Aug, [facility] [address] [id number] [place] [address] Aug, [facility] [address] [id number] [place] [address] Aug, [facility] [address] [id number] [place] [address] Jul, [facility] [address] [id number] [place] [address] Jul, [facility] [address] [id number] [place] [address] Jul, [facility] [address] [id number] [place] [address] Jun, [facility] [id number] [place] [address] Jun, [facility] [address] [id number] [place] [address] Jun, [facility] [address] [id number] [place] [address] Apr, [facility] [address] [id number] [place] [address] Mar, IMMUNIZATIONS No Known Immunizations SOCIAL HISTORY [...]
--- OUTSIDE RECORDS SUMMARY | 2020-03-18 15:13 | XMS REPORT ---
Author Author George WAYNE Organization [facility] Address [address] [place] [address] Care Team Providers Care Cutter Helper Name Role Phone REYNA WAYNE Unavailable PROBLEMS Type Condition ICD9-CM Code ZSC84-KH Code Onset Dates Condition S tatus SNOMED Code Problem Hypertension, benign I10 Active 23739022 Problem Other chronic pain G89.29 Active 8 9649685 Problem Lumbago with sciatica, unspecified side M54.40 Active 992142489 Problem Controlled type 2 diabetes m ellitus without complication, without long- term current use of insulin E11.9 Active 410976436 Problem Lumbago with sciatica, right side M54.41 Active 093374381 Problem Adjustment disorder with disturbance of emotion F4 3.29 Active 60897858 Problem MELE (obstructive sleep apnea) G47.33 Active 09778827 Problem Non morbid obesity E66.9 Active 4 25289052 Problem Hammer toe of left foot M20.42 Active 606729971 Problem Mood disorder F39 Active 348068 05 Problem Deformity of left foot M21.962 Active 332391479 Problem Lumbago with sciatica, left side M54.42 Active 137956437 Problem Erectile dysfunction due to diseases classified elsewhere N52.1 Active 370036096 Problem Obstructive sleep apnea syndrome G47.33 Active 03589037 Problem Type 2 diabetes mellitus wit h diabetic neuropathy, without long-term current use of insulin E11.40 Active 58457 006 Problem Essential hypertension I10 Active 42424909 ALLERGIES No Information ENCOUNTERS Encounter Location Date Diagnosis [facility] [address] [id number] [place] [address] Nov, [facility] [address] [facility] [place] [address] Sep, [facility] [address] [id number] [place] [address] Aug, [facility] [address] [address] Jul, Lumbago with sciatica, unspecified side M54.40 [facility] [address] [address] Jun, Lumbago with sciatica, unspecified side M54.40 [facility] [address] [address] Jun, URI, acute J06.9 [facility] [address] [address] May, Lumbago with sciatica, unspecified side M54.40 [facility] [address] [address] May, [place] [address] [address] May, Type 2 diabetes mellitus with diabetic n europathy, without long-term current use of insulin E11.40 and Hammer toe of left foot M20.42 [facility] [address] [address] May, [facility] [address] [address] May, [facility] [address] [address] May, [facility] [address] [address] Apr, Lumbago with sciatica, unspecified side M54.40 [facility] [address] [address] Apr, [facility] [address] [address] Apr, [facility] [address] [place] [address] Apr, Hammer toe of left foot M20. 42 ; Chest pain R07.9 ; Preoperative examination Z01.818 and Morbid obesity E66.01 [place] [address] [address] Apr, Morbid obesity E66.01 ; Bronchitis J40 a nd High risk medications (not anticoagulants) long-term use Z79.899 [place] [address] [address] Apr, Lumbago with sciatica, unspecified side M54.40 [place] [address] [address] Apr, [place] [address] [address] Mar, Lumbar neuritis M54.16 and Morbid obesit y E66.01 [place] [address] [address] Mar, [place] [address] [address] Mar, [place] [address] [address] Mar, Lumbago with sciatica, unspecified side M54.40 [place] [address] [address] Mar, Morbid obesity E66.01 ; Coughing R05 ; 2 + pitting edema R60.9 and Controlled type 2 diabetes mellitus without complication, without long-term current use of insulin E11.9 [place] [address] [address] Feb, [place] [address] [address] Feb, Lumbago with sciatica, unspecified side M54.40 [place] [address] [address] Feb, [place] [address] [address] Feb, Controlled type 2 diabetes mellitus with out complication, without long-term current use of insulin E11.9 and Morbid obesity E66.01 [place] [address] [address] January, Deformity of left foot M21.962 [place] [address] [address] January, [place] [address] [address] January, Lumbago with sciatica, unspecified side M54.40 [place] [address] [address] January, [place] [address] [address] January, Lumbago with sciatica, unspecified side M54.40 [place] [address] [address] January, [place] [address] [address] January, Acute right-sided thoracic back pain M54 .6 [place] [address] [address] January, Acute right-sided thoracic back pain M54 .6 [place] [address] [address] January, Chest pain, unspecified type R07.9 ; Mor bid obesity E66.01 and Scabies B86 [place] [address] [address] Dec, Lumbago with sciatica, unspecified side M54.40 [place] [address] [address] Dec, Toenail fungus B35.1 [place] [address] [address] Dec, Toenail fungus B35.1 [place] [address] [address] Dec, Acute right-sided thoracic back pain M54 .6 [place] [address] [address] Dec, Lumbago with sciatica, unspecified side M54.40 [place] [address] [address] Nov, Hammer toe of left foot M20.42 ; Deformi ty of left foot M21.962 and Type 2 diabetes mellitus with diabetic neuropathy, without long-term current use of insulin E11.40 [facility] [address] [facility] [id number] [place] [address] Nov, Acute right-sided thoracic b ack pain M54.6 ; Morbid obesity E66.01 and Rt flank pain R10.9 [place] [address] [address] Nov, Lumbago with sciatica, unspecified side M54.40 [place] [address] [address] Oct, Lumbago with sciatica, unspecified side M54.40 [place] [address] [address] Sep, Lumbago with sciatica, unspecified side M54.40 [place] [address] [address] Sep, [place] [address] [address] Sep, BMI 40.0-44.9, adult Z68.41 ; Lumbago wi th sciatica, left side M54.42 ; Lumbago with sciatica, right side M54.41 and Other chronic pain G89.29 [place] [address] [address] Aug, Lumbago with sciatica, unspecified side M54.40 [place] [address] [address] Aug, Type 2 diabetes mellitus with diabetic n europathy, without long-term current use of insulin E11.40 ; Hammer toe of left foot M20.42 ; Hypertension, benign I10 and Frequent headaches R51 [place] [address] [address] Jul, Lumbago with sciatica, unspecified side M54.40 [place] [address] [address] Jul, [place] [address] [place] [address] Jul, Essential hypertension I10 and Controlle d type 2 diabetes mellitus without complication, without long-term current use of insulin E11.9 [place] [address] [address] Jul, Essential hypertension I10 ; Controlled type 2 diabetes mellitus without complication, without long-term current use of insulin E11.9 and BMI 40.0-44.9, adult Z68.41 [place] [address] [address] Jul, Dysfunction of left eustachian tube H69. 82 [place] [address] [address] Jul, Lumbago with sciatica, unspecified side M54.40 [facility] [address] [place] [id number] [place] [id number] Jun, Dental examination Z01.20 [place] [address] [address] Jun, Lumbago with sciatica, unspecified side M54.40 and Encounter for immunization Z23 [place] [address] [address] Jun, Dysfunction of left eustachian tube H69. 82 [facility] [address] [facility] [place] [id number] Jun, Dental examination Z01.20 [facility] [address] [place] [id number] [place] [address] Jun, Other chronic pain G89.29 [facility] [address] [facility] [place] [id number] Jun, Dental examination Z01.20 [facility] [address] [address] Jun, [place] [address] [address] Jun, Bronchitis J40 ; Dysfunction of left eus tachian tube H69.82 and BMI 45.0-49.9, adult Z68.42 [place] [address] [address] Jun, Lumbago with sciatica, unspecified side M54.40 [place] [address] [address] May, Type 2 diabetes mellitus with diabetic n europathy, without long-term current use of insulin E11.40 and Hypertension, benign I10 [place] [address] [address] May, Lumbago with sciatica, unspecified side M54.40 [facility] [address] [facility] [id number] [place] [address] Apr, [facility] [address] [address] Apr, Controlled type 2 diabetes mellitus with out complication, without long-term current use of insulin E11.9 ; Insect bite (nonvenomous), right ankle, initial encounter S90.561A ; Local infection of the skin and subcutaneous tissue, unspecified L08.9 ; Acute swimmer''s ear of left side H60.332 and BMI 45.0-49.9, adult Z68.42 [place] [address] [address] Apr, Lumbago with sciatica, unspecified side M54.40 [place] [address] [address] Mar, [place] [address] [place] [address] Mar, Lumbago with sciatica, unspecified side M54.40 [place] [address] [address] Feb, Lumbago with sciatica, unspecified side M54.40 [place] [address] [address] Feb, BMI 45.0-49.9, adult Z68.42 and Obstruct jaida sleep apnea syndrome G47.[address] [address] January, Lumbar neuritis M54.16 [place] [address] [address] January, Lumbago with sciatica, unspecified side M54.40 [place] [address] [address] Dec, Controlled type 2 diabetes mellitus with out complication, without long-term current use of insulin E11.9 ; Erectile dysfunction due to diseases classified elsewhere N52.1 and Mood disorder F39 [place] [address] [address] Dec, Lumbago with sciatica, unspecified side M54.40 [place] [address] [address] Dec, Obstructive sleep apnea syndrome G47.33 [place] [address] [place] [id number] Nov, Lumbago with sciatica, unspecified side M54.40 ; Hypertension, benign I10 and Mood disorder F39 [place] [address] [address] Nov, Other chronic pain G89.29 [facility] [address] [address] Nov, Lumbago with sciatica, unspecified side M54.40 [facility] [address] [id number] Nov, Dental examination Z01.20 [facility] [address] [address] Oct, [facility] [address] [address] Oct, Lumbago with sciatica, unspecified side M54.40 [facility] [address] [address] Oct, Lumbago with sciatica, unspecified side M54.40 [facility] [address] [address] Oct, [facility] [address] [address] Oct, [facility] [address] [id number] Oct, Dental examination Z01.20 [facility] [address] [address] Oct, [facility] [address] [address] Oct, Pain in right knee M25.561 [facility] [address] [address] Sep, [facility] [address] [address] Sep, Other chronic pain G89.29 [facility] [address] [address] Sep, Lumbago with sciatica, unspecified side M54.40 [place] [address] [address] Sep, [facility] [address] [address] Sep, Viral URI J06.9 and BMI 45.0 -49.9, adult Z68.42 [facility] [address] [address] Aug, Foreign body hand S60.559A a nd BMI 45.0-49.9, adult Z68.42 [place] [address] [address] Aug, [place] [address] [address] Aug, Lumbago with sciatica, unspecified side M54.40 [place] [address] [address] Aug, Vertigo R42 ; Dysfunction of both eustac hian tubes H69.83 ; Low back pain M54.5 and Other chronic pain G89.29 [facility] [place] [address] [address] Aug, Dizziness R42 and Acute bila teral otitis media H66.93 [place] [address] [address] Aug, Lumbago with sciatica, unspecified side M54.40 [facility] [address] [facility] [place] [id number] Jul, Dental examination Z01.20 [place] [address] [address] Jul, [place] [address] [address] Jul, [place] [address] [address] 16 Nov, 2017 Dysfunction of both eustachian tubes H69 .83 [facility] [address] [address] Jul, Controlled type 2 diabetes mellitus with out complication, without long-term current use of insulin E11.9 [facility] [address] [address] Jul, Controlled type 2 diabetes mellitus with out complication, without long-term current use of insulin E11.9 [facility] [address] [facility] [id number] [address] Jul, Dizziness R42 and BMI 40.0-4 4.9, adult Z68.41 [place] [address] [address] Jul, Controlled type 2 diabetes mellitus with out complication, without long-term current use of insulin E11.9 [place] [address] [address] Jul, Lumbago with sciatica, unspecified side M54.40 [facility] [address] [id number] Jul, Dental examination Z01.20 [place] [address] [address] Jun, [facility] [address] [id number] Jun, Dental examination Z01.20 [place] [address] [address] Jun, Controlled type 2 diabetes mellitus with out complication, without long-term current use of insulin E11.9 [place] [address] [address] Jun, Lumbago with sciatica, unspecified side M54.40 [facility] [address] [id number] May, Dental examination Z01.20 [place] [address] [address] May, Controlled type 2 diabetes mellitus with out complication, without long-term current use of insulin E11.9 [facility] [address] [id number] May, Dental examination Z01.20 [facility] [address] [address] 18 May, 2017 Bronchitis J40 ; Dry mouth R68.2 ; Non m orbid obesity E66.9 and Controlled type 2 diabetes mellitus without complication, without long-term current use of insulin E11.9 [facility] [address] [address] 16 May, 2017 Encounter for immunization Z 23 [facility] [address] [address] 07 May, 2017 Lumbago with sciatica, unspecified side M54.40 [facility] [address] [address] 05 May, 2017 [facility] [address] [id number] Apr, Dental examination Z01.20 [facility] [address] [address] Apr, Lumbago with sciatica, unspecified side M54.40 [facility] [address] [address] Mar, Lumbago with sciatica, left side M54.42 [facility] [address] [address] Mar, [facility] [address] [address] Mar, Lumbar neuritis M54.16 [facility] [address] [address] Mar, [facility] [address] [id number] Mar, Dental examination Z01.20 [place] [address] [address] Mar, MELE (obstructive sleep apnea) G47.33 ; N europathy involving both lower extremities G57.93 and Frequent headaches R51 [place] [address] [address] Mar, Lumbago with sciatica, unspecified side M54.40 [place] [address] [place] [address] Feb, Lumbago with sciatica, unspecified side M54.40 and Controlled type 2 diabetes mellitus without complication, without long-term current use of insulin E11.9 [place] [address] [place] [address] January, Hypertension, benign I10 and Bilateral l ow back pain with sciatica, sciatica laterality unspecified M54.40 [place] [address] [address] January, Hypertension, benign I10 ; Lumbago with sciatica, unspecified side M54.40 ; Other chronic pain G89.29 and Controlled type 2 diabetes mellitus without complication, without long-term current use of insulin E11.9 [place] [address] [address] January, Lumbar neuritis M54.16 [place] [address] [address] January, [place] [address] [address] Dec, Lumbago with sciatica, right side M54.41 and Lumbar neuritis M54.16 [place] [address] [address] Dec, Lumbar neuritis M54.16 [place] [address] [address] Dec, Lumbar neuritis M54.16 [place] [address] [address] 16 Nov, 2016 Lumbar neuritis M54.16 ; Lumbago with sc iatica, right side M54.41 ; Controlled type 2 diabetes mellitus without complication, without long-term current use of insulin E11.9 and Rash and nonspecific skin eruption R21 [place] [address] [address] 09 Nov, 2016 Lumbar neuritis M54.16 and Poison miroslava L2 3.7 [place] [address] [address] Oct, Lumbar neuritis M54.16 ; Coughing R05 an d Mood disorder F39 [address] [address] Sep, Lumbago with sciatica, right side M54.[address] [address] Sep, Adjustment disorder with disturbance of emotion F43.29 and Pain management R52 [place] [address] [address] Sep, [address] [address] Sep, [address] [address] Sep, Controlled type 2 diabetes mellitus with out complication, without long-term current use of insulin E11.9 and Lumbago with sciatica, unspecified side M54.40 [place] [address] [address] Aug, Controlled type 2 diabetes mellitus with out complication, without long-term current use of insulin E11.9 ; Pain in right knee M25.561 ; Pain in left knee M25.562 ; Other chronic pain G89.29 ; Lumbago with sciatica, right side M54.41 ; Neck pain M54.2 and Encounter for immunization Z23 [place] [address] [address] Jul, [place] [address] [address] Jul, Controlled type 2 diabetes mellitus with out complication, without long-term current use of insulin E11.9 [place] [address] [place] [id number] [place] [address] 17 Jul, 2016 [facility] [address] [address] Jul, [facility] [address] [address] Jul, Lumbago with sciatica, left side M54.42 ; Lumbago with sciatica, right side M54.41 and Other chronic pain G89.29 [place] [address] [address] Jul, [place] [address] [address] Jul, [facility] [address] [address] Jun, [place] [address] [address] Jun, Lumbago with sciatica, right side M54.41 and Other chronic pain G89.29 [place] [address] [address] Jun, Cervicalgia M54.2 ; Lumbago with sciatic a, unspecified side M54.40 and Other chronic pain G89.29 [place] [address] [address] 15 May, 2016 Pain in right knee M25.561 ; Pain in lef t knee M25.562 and Other chronic pain G89.29 [place] [address] [address] 14 May, 2016 [place] [address] [address] Apr, Other chronic pain G89.29 and Pain in ri ght knee M25.561 [facility] [address] [address] Apr, Pain in right knee M25.561 [facility] [address] [address] Mar, [place] [address] [address] Mar, Mood disorder F39 and Controlled type 2 diabetes mellitus without complication, without long-term current use of insulin E11.9 [place] [address] [address] Mar, Pain in right knee M25.561 ; Pain in lef t knee M25.562 ; Other chronic pain G89.29 ; Obstructive sleep apnea syndrome G47.33 ; Mood disorder F39 and Controlled type 2 diabetes mellitus without complication, without long-term current use of insulin E11.9 [place] [address] [address] Mar, [facility] [address] [id number] Feb, Dental examination Z01.20 [place] [address] [address] Feb, [place] [address] [address] Feb, Osteoarthritis of right knee, unspecifie d osteoarthritis type M17.9 [place] [address] [address] January, [facility] [address] [id number] January, Dental examination Z01.20 [facility] [address] [address] January, [facility] [address] [id number] January, Dental examination Z01.20 and Caries K02 .9 [facility] [address] [address] 26 Dec, 2015 Encounter for other preprocedural examin ation Z01.818 [facility] [address] [address] Dec, [facility] [address] [address] Dec, Knee pain M25.569 [facility] [address] [address] 15 Dec, 2015 Pain in right knee M25.561 [facility] [address] [address] Dec, [facility] [address] [address] Dec, [facility] [address] [address] Dec, Encounter for immunization Z23 [facility] [address] [address] Dec, [facility] [address] [address] Dec, [facility] [address] [address] Nov, [facility] [address] [address] Nov, Hypertension, benign I10 ; Cervicalgia M 54.2 ; Pain in right knee M25.561 and Pain in left knee M25.562 [facility] [address] [address] Oct, [facility] [address] [address] Oct, [facility] [address] [address] Oct, Osteoarthritis of both knees M17.0 [place] [address] [address] Oct, [place] [address] [address] Oct, Low back pain M54.5 [place] [address] [address] Oct, Low back pain M54.5 ; Sciatica, unspecif ied side M54.30 ; Pain in right knee M25.561 ; Pain in left knee M25.562 ; Pain in right shoulder M25.511 and Pain in left shoulder M25.512 [place] [address] [address] Oct, [place] [address] [address] Sep, Pain in right hip M25.551 [place] [address] [address] Sep, Acute upper respiratory infection, unspe cified J06.[address] [address] Aug, Acute upper respiratory infection, unspe cified J06.9 and Other viral agents as the cause of diseases classified elsewhere B97.[address] [address] Jul, Arthritis M19.[address] [address] Jun, Arthritis M19.90 ; Pain in right hip M25 .551 ; Pain in left hip M25.552 ; Bilateral low back pain with sciatica, sciatica laterality unspecified M54.40 ; Neck pain M54.2 ; Upper back pain M54.9 and Knee pain, unspecified laterality M25.5[address] [place] [address] [address] May, Osteoarthritis of both knees 715.96 [facility] [id number] [place] [address] May, Rash 782.1 [facility] [address] [address] Apr, Lumbar strain 847.2 [facility] [address] [address] Apr, Rash 782.1 [facility] [address] [address] Mar, Rash 782.1 [facility] [address] [address] [address] Feb, Rash 782.1 ; Hemorrhoids 455.6 and Const ipation 564.00 [facility] [address] [address] Feb, Osteoarthritis of both knees 715.96 [facility] [address] [address] January, [facility] [address] [address] 28 Dec, 2014 [facility] [address] [address] Dec, [facility] [address] [address] Dec, [facility] [address] [address] 18 Nov, 2014 [facility] [id number] [place] [address] Nov, [facility] [address] [address] Nov, [facility] [id number] [place] [address] Nov, [facility] [address] [address] Nov, [facility] [address] [id number] [place] [address] Nov, [facility] [address] [id number] [place] [address] Oct, [facility] [address] [id number] [place] [address] Oct, [facility] [address] [id number] [place] [address] Oct, [facility] [address] [id number] [place] [address] Oct, [facility] [address] [id number] [place] [address] Oct, [facility] [address] [id number] [place] [address] Oct, [facility] [address] [id number] [place] [address] Oct, [facility] [address] [id number] [place] [address] Oct, [facility] [address] [id number] [place] [address] Oct, [facility] [address] [id number] [place] [address] Oct, [facility] [address] [id number] [place] [address] Oct, [facility] [address] [id number] [place] [address] Sep, [facility] [address] [id number] [place] [address] Sep, [facility] [address] [id number] [place] [address] Sep, [facility] [address] [id number] [place] [address] Sep, [facility] [address] [id number] [place] [address] Sep, [facility] [address] [id number] [place] [address] Sep, [facility] [address] [id number] [place] [address] Aug, [facility] [address] [id number] [place] [address] Aug, [facility] [address] [id number] [place] [address] Aug, [facility] [address] [id number] [place] [address] Aug, [facility] [address] [id number] [place] [address] Aug, [facility] [address] [id number] [place] [address] Aug, [facility] [address] [id number] [place] [address] Aug, [facility] [address] [id number] [place] [address] Aug, [facility] [address] [id number] [place] [address] Aug, [facility] [address] [id number] [place] [address] Aug, [facility] [address] [id number] [place] [address] Jul, [facility] [address] [id number] [place] [address] Jul, [facility] [id number] [place] [address] Jul, [facility] [address] [id number] [place] [address] Jul, [facility] [address] [id number] [place] [address] Jun, [facility] [address] [id number] [place] [address] Jun, [facility] [address] [id number] [place] [address] Jun, [facility] [address] [id number] [place] [address] Jun, [facility] [address] [id number] [place] [address] Jun, [facility] [address] [facility] [id number] [place] [address] Jun, [facility] [address] [id number] [place] [address] Jun, [facility] [address] [id number] [place] [address] Jun, [facility] [address] [id number] [place] [address] 24 May, 2013 [facility] [address] [id number] [place] [address] 24 May, 2013 [facility] [address] [id number] [place] [address] 19 May, 2013 [facility] [address] [id number] [place] [address] 19 May, 2013 [facility] [address] [id number] [place] [address] 15 May, 2013 [facility] [address] [id number] [place] [address] 15 May, 2013 [facility] [address] [id number] [place] [address] 15 May, 2013 [facility] [address] [id number] [place] [address] 15 May, 2013 [facility] [address] [id number] [place] [address] Apr, 2013 [facility] [address] [id number] [place] [address] Apr, [facility] [address] [id number] [place] [address] Apr, [facility] [address] [facility] [id number] [place] [address] Apr, [facility] [address] [id number] [place] [address] Apr, [facility] [address] [id number] [place] [address] Apr, [facility] [address] [facility] [id number] [place] [address] Apr, [facility] [address] [id number] [place] [address] Apr, [facility] [address] [id number] [place] [address] Apr, [facility] [address] [id number] [place] [address] Apr, [facility] [address] [id number] [place] [address] Apr, [facility] [address] [id number] [place] [address] Apr, [facility] [address] [id number] [place] [address] Mar, [facility] [address] [id number] [place] [address] Mar, [facility] [address] [id number] [place] [address] Mar, [facility] [address] [id number] [place] [address] Mar, [facility] [address] [id number] [place] [address] Mar, [facility] [address] [id number] [place] [address] Mar, [facility] [address] [facility] [id number] [place] [address] 18 Feb, 2014 [facility] [address] [facility] [id number] [place] [address] Feb, [facility] [address] [facility] [id number] [place] [address] Feb, [facility] [address] [id number] [place] [address] Feb, [facility] [address] [facility] [id number] [place] [address] Feb, [facility] [address] [facility] [id number] [place] [address] Feb, [facility] [address] [id number] [place] [address] Feb, [facility] [address] [id number] [place] [address] Feb, [facility] [address] [id number] [place] [address] Feb, [facility] [address] [id number] [place] [address] Feb, [facility] [address] [id number] [place] [address] Feb, [facility] [address] [id number] [place] [address] Feb, [facility] [address] [id number] [place] [address] Feb, [facility] [address] [facility] [id number] [place] [address] Feb, [facility] [address] [id number] [place] [address] January, [facility] [address] [id number] [place] [address] January, [facility] [address] [id number] [place] [address] January, [facility] [address] [id number] [place] [address] January, [facility] [address] [id number] [place] [address] January, [facility] [address] [id number] [place] [address] January, [facility] [address] [id number] [place] [address] Dec, [facility] [address] [facility] [id number] [place] [address] Dec, [facility] [address] [id number] [place] [address] Dec, [facility] [address] [id number] [place] [address] Dec, [facility] [address] [id number] [place] [address] Dec, [facility] [address] [id number] [place] [address] Dec, [facility] [address] [id number] [place] [address] Dec, [facility] [address] [id number] [place] [address] Dec, [facility] [address] [id number] [place] [address] Nov, [facility] [address] [id number] [place] [address] Nov, [facility] [address] [id number] [place] [address] Nov, [facility] [address] [id number] [place] [address] Nov, [facility] [address] [id number] [place] [address] Nov, [facility] [address] [id number] [place] [address] Nov, [facility] [address] [facility] [id number] [place] [address] Nov, [facility] [address] [facility] [id number] [place] [address] Nov, [facility] [address] [id number] [place] [address] Oct, [facility] [address] [facility] [id number] [place] [address] Oct, [facility] [address] [id number] [place] [address] Oct, [facility] [address] [id number] [place] [address] Oct, [facility] [address] [id number] [place] [address] Oct, [facility] [address] [id number] [place] [address] Oct, [facility] [address] [id number] [place] [address] Oct, [facility] [address] [id number] [place] [address] Oct, [facility] [address] [id number] [place] [address] Oct, [facility] [address] [id number] [place] [address] Oct, [facility] [address] [id number] [place] [address] Sep, [facility] [address] [id number] [place] [address] Sep, [facility] [address] [id number] [place] [address] Sep, [facility] [address] [id number] [place] [address] Sep, [facility] [address] [id number] [place] [address] Sep, [facility] [address] [id number] [place] [address] Sep, [facility] [address] [id number] [place] [address] Aug, [facility] [address] [id number] [place] [address] Aug, [facility] [address] [id number] [place] [address] Aug, [facility] [address] [id number] [place] [address] Aug, [facility] [address] [id number] [place] [address] Aug, [facility] [address] [id number] [place] [address] Aug, [facility] [address] [id number] [place] [address] Aug, [facility] [address] [id number] [place] [address] Aug, [facility] [address] [id number] [place] [address] Jul, [facility] [address] [id number] [place] [address] Jul, [facility] [address] [id number] [place] [address] Jul, [facility] [address] [id number] [place] [address] Jul, [facility] [address] [id number] [place] [address] Jul, [facility] [address] [id number] [place] [address] Jul, [facility] [address] [id number] [place] [address] Jun, [facility] [address] [facility] [id number] [place] [address] Jun, [facility] [address] [facility] [id number] [place] [address] Jun, [facility] [address] [id number] [place] [address] May, [facility] [address] [id number] [place] [address] May, [facility] [address] [facility] [id number] [place] [address] May, [facility] [address] [id number] [place] [address] Apr, [facility] [address] [id number] [place] [address] Apr, [facility] [address] [id number] [place] [address] Apr, [facility] [address] [id number] [place] [address] Apr, [facility] [address] [id number] [place] [address] Mar, [facility] [address] [id number] [place] [address] Mar, [facility] [address] [id number] [place] [address] Mar, [facility] [address] [id number] [place] [address] Mar, [facility] [address] [id number] [place] [address] Feb, [facility] [address] [id number] [place] [address] Feb, [facility] [address] [id number] [place] [address] Feb, [facility] [address] [id number] [place] [address] Feb, [facility] [address] [id number] [place] [address] January, [facility] [address] [id number] [place] [address] January, [facility] [address] [id number] [place] [address] January, [facility] [address] [id number] [place] [address] Nov, [facility] [address] [id number] [place] [address] Nov, [facility] [address] [id number] [place] [address] Oct, [facility] [address] [id number] [place] [address] Oct, [facility] [address] [id number] [place] [address] Oct, [facility] [address] [id number] [place] [address] Oct, [facility] [address] [id number] [place] [address] Sep, [facility] [address] [id number] [place] [address] Sep, [facility] [address] [id number] [place] [address] Sep, [facility] [address] [id number] [place] [address] Aug, [facility] [address] [id number] [place] [address] Aug, [facility] [address] [id number] [place] [address] Aug, [facility] [address] [id number] [place] [address] Aug, [facility] [address] [id number] [place] [address] Aug, [facility] [address] [id number] [place] [address] Aug, [facility] [address] [id number] [place] [address] Jul, [facility] [address] [id number] [place] [address] Jul, [facility] [address] [id number] [place] [address] Jun, [facility] [address] [id number] [place] [address] Jun, [facility] [address] [id number] [place] [address] Jun, [facility] [address] [id number] [place] [address] Apr, [facility] [address] [id number] [place] [address] Apr, [facility] [address] [id number] [place] [address] Mar, [facility] [address] [id number] [place] [address] Mar, [facility] [address] [id number] [place] [address] Mar, [facility] [address] [id number] [place] [address] Mar, [facility] [address] [id number] [place] [address] Feb, [facility] [address] [id number] [place] [address] Feb, [facility] [address] [id number] [place] [address] Feb, [facility] [address] [id number] [place] [address] January, [facility] [address] [id number] [place] [address] January, [facility] [address] [id number] [place] [address] January, [facility] [address] [id number] [place] [address] January, [facility] [address] [id number] [place] [address] Dec, [facility] [address] [id number] [place] [address] Dec, [facility] [address] [id number] [place] [address] Nov, [facility] [address] [id number] [place] [address] Nov, [facility] [address] [id number] [place] [address] Oct, [facility] [address] [id number] [place] [address] Oct, [facility] [address] [id number] [place] [address] Sep, [facility] [address] [id number] [place] [address] Sep, [facility] [address] [id number] [place] [address] Sep, [facility] [address] [id number] [place] [address] Sep, [facility] [id number] [place] [address] Aug, [facility] [address] [id number] [place] [address] Aug, [facility] [id number] [place] [address] Aug, [facility] [address] [id number] [place] [address] Jul, [facility] [address] [id number] [place] [address] Aug, [facility] [address] [id number] [place] [address] Aug, [facility] [address] [id number] [place] [address] Aug, [facility] [address] [id number] [place] [address] Aug, [facility] [id number] [place] [address] Jul, [facility] [id number] [place] [address] Jul, [facility] [id number] [place] [address] Jul, [facility] [address] [id number] [place] [address] Jun, [facility] [id number] [place] [address] Jun, [facility] [id number] [place] [address] Jun, [facility] [address] [id number] [place] [address] Apr, [facility] [address] [id number] [place] [address] Mar, IMMUNIZATIONS No Known Immunizations SOCIAL HISTORY [...]
--- OUTSIDE RECORDS SUMMARY | 2020-03-18 15:14 | XMS REPORT ---
Author Author George WAYNE Organization [facility] Address [address] [place] [address] Care Team Providers Care Normalizer Name Role Phone REYNA WAYNE Unavailable PROBLEMS Type Condition ICD9-CM Code OVM60-CJ Code Onset Dates Condition S tatus SNOMED Code Problem Hypertension, benign I10 Active 51337814 Problem Other chronic pain G89.29 Active 8 4718090 Problem Lumbago with sciatica, unspecified side M54.40 Active 003569328 Problem Controlled type 2 diabetes m ellitus without complication, without long- term current use of insulin E11.9 Active 806845932 Problem Lumbago with sciatica, right side M54.41 Active 793155269 Problem Adjustment disorder with disturbance of emotion F4 3.29 Active 90113125 Problem MELE (obstructive sleep apnea) G47.33 Active 72014203 Problem Non morbid obesity E66.9 Active 4 19167515 Problem Hammer toe of left foot M20.42 Active 900452152 Problem Mood disorder F39 Active 537712 05 Problem Deformity of left foot M21.962 Active 410212454 Problem Lumbago with sciatica, left side M54.42 Active 328370727 Problem Erectile dysfunction due to diseases classified elsewhere N52.1 Active 162333618 Problem Obstructive sleep apnea syndrome G47.33 Active 02520749 Problem Type 2 diabetes mellitus wit h diabetic neuropathy, without long-term current use of insulin E11.40 Active 99272 006 Problem Essential hypertension I10 Active 65029603 ALLERGIES No Information ENCOUNTERS Encounter Location Date Diagnosis [facility] [address] [id number] [place] [address] Sep, [facility] [address] [id number] [place] [address] Aug, [facility] [address] [id number] [place] [address] Jul, Lumbago with sciatica, unspecified side M54.40 [facility] [address] [address] Jun, Lumbago with sciatica, unspecified side M54.40 [facility] [address] [address] Jun, URI, acute J06.9 [facility] [address] [address] May, Lumbago with sciatica, unspecified side M54.40 [place] [address] [address] May, [place] [address] [address] May, Type 2 diabetes mellitus with diabetic n europathy, without long-term current use of insulin E11.40 and Hammer toe of left foot M20.42 [place] [address] [address] May, [place] [address] [address] May, [place] [address] [address] May, [place] [address] [address] Apr, Lumbago with sciatica, unspecified side M54.40 [place] [address] [address] Apr, [facility] [address] [address] Apr, [address] [place] [address] Apr, Hammer toe of left foot M20. 42 ; Chest pain R07.9 ; Preoperative examination Z01.818 and Morbid obesity E66.01 [place] [address] [address] Apr, Morbid obesity E66.01 ; Bronchitis J40 a nd High risk medications (not anticoagulants) long-term use Z79.899 [place] [address] [address] Apr, Lumbago with sciatica, unspecified side M54.40 [place] [address] [address] Apr, [place] [address] [address] Mar, Lumbar neuritis M54.16 and Morbid obesit y E66.01 [place] [address] [address] Mar, [place] [address] [address] Mar, [place] [address] [address] Mar, Lumbago with sciatica, unspecified side M54.40 [place] [address] [address] Mar, Morbid obesity E66.01 ; Coughing R05 ; 2 + pitting edema R60.9 and Controlled type 2 diabetes mellitus without complication, without long-term current use of insulin E11.9 [place] [address] [address] Feb, [place] [address] [address] Feb, Lumbago with sciatica, unspecified side M54.40 [place] [address] [address] Feb, [place] [address] [address] Feb, Controlled type 2 diabetes mellitus with out complication, without long-term current use of insulin E11.9 and Morbid obesity E66.01 [place] [address] [address] January, Deformity of left foot M21.962 [facility] [address] [address] January, [facility] [address] [address] January, Lumbago with sciatica, unspecified side M54.40 [place] [address] [address] January, [place] [address] [address] January, Lumbago with sciatica, unspecified side M54.40 [place] [address] [address] January, [place] [address] [address] January, Acute right-sided thoracic back pain M54 .6 [place] [address] [address] January, Acute right-sided thoracic back pain M54 .6 [place] [address] [address] January, Chest pain, unspecified type R07.9 ; Mor bid obesity E66.01 and Scabies B86 [place] [address] [address] Dec, Lumbago with sciatica, unspecified side M54.40 [place] [address] [address] Dec, Toenail fungus B35.1 [place] [address] [address] Dec, Toenail fungus B35.1 [place] [address] [address] Dec, Acute right-sided thoracic back pain M54 .6 [place] [address] [address] Dec, Lumbago with sciatica, unspecified side M54.40 [facility] [address] [address] Nov, Hammer toe of left foot M20.42 ; Deformi ty of left foot M21.962 and Type 2 diabetes mellitus with diabetic neuropathy, without long-term current use of insulin E11.40 [facility] [address] [facility] [id number] [address] [place] [address] Nov, Acute right-sided thoracic b ack pain M54.6 ; Morbid obesity E66.01 and Rt flank pain R10.9 [place] [address] [address] Nov, Lumbago with sciatica, unspecified side M54.40 [place] [address] [address] Oct, Lumbago with sciatica, unspecified side M54.40 [place] [address] [address] Sep, Lumbago with sciatica, unspecified side M54.40 [place] [address] [address] Sep, [place] [address] [address] Sep, BMI 40.0-44.9, adult Z68.41 ; Lumbago wi th sciatica, left side M54.42 ; Lumbago with sciatica, right side M54.41 and Other chronic pain G89.29 [place] [address] [address] Aug, Lumbago with sciatica, unspecified side M54.40 [place] [address] [address] Aug, Type 2 diabetes mellitus with diabetic n europathy, without long-term current use of insulin E11.40 ; Hammer toe of left foot M20.42 ; Hypertension, benign I10 and Frequent headaches R51 [place] [address] [address] Jul, Lumbago with sciatica, unspecified side M54.40 [place] [address] [place] [address] Jul, [place] [address] [place] [address] Jul, Essential hypertension I10 and Controlle d type 2 diabetes mellitus without complication, without long-term current use of insulin E11.9 [place] [address] [address] Jul, Essential hypertension I10 ; Controlled type 2 diabetes mellitus without complication, without long-term current use of insulin E11.9 and BMI 40.0-44.9, adult Z68.41 [place] [address] [address] Jul, Dysfunction of left eustachian tube H69. 82 [place] [address] [address] Jul, Lumbago with sciatica, unspecified side M54.40 [facility] [address] [place] [id number] [place] [id number] Jun, Dental examination Z01.20 [place] [address] [address] Jun, Lumbago with sciatica, unspecified side M54.40 and Encounter for immunization Z23 [place] [address] [address] Jun, Dysfunction of left eustachian tube H69. 82 [facility] [id number] [place] [id number] Jun, Dental examination Z01.20 [facility] [address] [place] [id number] [place] [address] Jun, Other chronic pain G89.29 [facility] [address] [facility] [place] [id number] Jun, Dental examination Z01.20 [facility] [address] [address] Jun, [facility] [address] [address] Jun, Bronchitis J40 ; Dysfunction of left eus tachian tube H69.82 and BMI 45.0-49.9, adult Z68.42 [place] [address] [address] Jun, Lumbago with sciatica, unspecified side M54.40 [place] [address] [address] May, Type 2 diabetes mellitus with diabetic n europathy, without long-term current use of insulin E11.40 and Hypertension, benign I10 [place] [address] [address] May, Lumbago with sciatica, unspecified side M54.40 [facility] [address] [facility] [id number] [address] [place] [address] Apr, [facility] [address] [address] Apr, Controlled type 2 diabetes mellitus with out complication, without long-term current use of insulin E11.9 ; Insect bite (nonvenomous), right ankle, initial encounter S90.561A ; Local infection of the skin and subcutaneous tissue, unspecified L08.9 ; Acute swimmer''s ear of left side H60.332 and BMI 45.0-49.9, adult Z68.42 [place] [address] [address] Apr, Lumbago with sciatica, unspecified side M54.40 [place] [address] [address] Mar, [place] [address] [address] Mar, Lumbago with sciatica, unspecified side M54.40 [place] [address] [address] Feb, Lumbago with sciatica, unspecified side M54.40 [place] [address] [address] Feb, BMI 45.0-49.9, adult Z68.42 and Obstruct jaida sleep apnea syndrome G47.33 [place] [address] [address] January, Lumbar neuritis M54.[address] [address] January, Lumbago with sciatica, unspecified side M54.40 [place] [address] [address] Dec, Controlled type 2 diabetes mellitus with out complication, without long-term current use of insulin E11.9 ; Erectile dysfunction due to diseases classified elsewhere N52.1 and Mood disorder F39 [place] [address] [address] Dec, Lumbago with sciatica, unspecified side M54.40 [place] [address] [address] Dec, Obstructive sleep apnea syndrome G47.[address] [address] Nov, Lumbago with sciatica, unspecified side M54.40 ; Hypertension, benign I10 and Mood disorder F39 [place] [address] [address] Nov, Other chronic pain G89.29 [place] [address] [address] Nov, Lumbago with sciatica, unspecified side M54.40 [facility] [address] [id number] Nov, Dental examination Z01.20 [facility] [address] [address] Oct, [facility] [address] [place] [id number] Oct, Lumbago with sciatica, unspecified side M54.40 [facility] [address] [address] Oct, Lumbago with sciatica, unspecified side M54.40 [facility] [address] [address] Oct, [facility] [address] [address] Oct, [facility] [address] [id number] Oct, Dental examination Z01.20 [facility] [address] [address] Oct, [facility] [address] [address] Oct, Pain in right knee M25.561 [facility] [address] [address] Sep, [facility] [address] [address] Sep, Other chronic pain G89.29 [facility] [address] [address] Sep, Lumbago with sciatica, unspecified side M54.40 [facility] [address] [address] Sep, [facility] [address] [place] [id number] [place] [address] Sep, Viral URI J06.9 and BMI 45.0 -49.9, adult Z68.42 [facility] [address] [place] [id number] [place] [address] Aug, Foreign body hand S60.559A a nd BMI 45.0-49.9, adult Z68.42 [place] [address] [address] Aug, [place] [address] [address] Aug, Lumbago with sciatica, unspecified side M54.40 [place] [address] [address] Aug, Vertigo R42 ; Dysfunction of both eustac hian tubes H69.83 ; Low back pain M54.5 and Other chronic pain G89.29 [facility] [address] [place] [id number] [place] [address] Aug, Dizziness R42 and Acute bila teral otitis media H66.93 [place] [address] [address] Aug, Lumbago with sciatica, unspecified side M54.40 [facility] [address] [facility] [place] [id number] Jul, Dental examination Z01.20 [place] [address] [address] Jul, [place] [address] [address] Jul, [place] [address] [address] Jul, Dysfunction of both eustachian tubes H69 .83 [place] [address] [address] Jul, Controlled type 2 diabetes mellitus with out complication, without long-term current use of insulin E11.9 [facility] [address] [address] Jul, Controlled type 2 diabetes mellitus with out complication, without long-term current use of insulin E11.9 [facility] [address] [facility] [id number] [address] [place] [address] Jul, Dizziness R42 and BMI 40.0-4 4.9, adult Z68.41 [facility] [address] [address] Jul, Controlled type 2 diabetes mellitus with out complication, without long-term current use of insulin E11.9 [place] [address] [address] Jul, Lumbago with sciatica, unspecified side M54.40 [facility] [address] [id number] Jul, Dental examination Z01.20 [facility] [address] [address] Jun, [facility] [address] [id number] Jun, Dental examination Z01.20 [place] [address] [address] Jun, Controlled type 2 diabetes mellitus with out complication, without long-term current use of insulin E11.9 [facility] [address] [address] Jun, Lumbago with sciatica, unspecified side M54.40 [facility] [address] [id number] May, Dental examination Z01.20 [facility] [address] [address] May, Controlled type 2 diabetes mellitus with out complication, without long-term current use of insulin E11.9 [facility] [address] [id number] May, Dental examination Z01.20 [facility] [address] [address] 18 May, 2017 Bronchitis J40 ; Dry mouth R68.2 ; Non m orbid obesity E66.9 and Controlled type 2 diabetes mellitus without complication, without long-term current use of insulin E11.9 [facility] [address] [address] 16 May, 2017 Encounter for immunization Z 23 [place] [address] [address] 07 May, 2017 Lumbago with sciatica, unspecified side M54.40 [place] [address] [address] 05 May, 2017 [facility] [address] [id number] Apr, Dental examination Z01.20 [place] [address] [address] Apr, Lumbago with sciatica, unspecified side M54.40 [facility] [address] [address] Mar, Lumbago with sciatica, left side M54.42 [place] [address] [address] Mar, [place] [address] [address] Mar, Lumbar neuritis M54.16 [facility] [address] [address] Mar, [facility] [address] [id number] Mar, Dental examination Z01.20 [place] [address] [address] Mar, MELE (obstructive sleep apnea) G47.33 ; N europathy involving both lower extremities G57.93 and Frequent headaches R51 [place] [address] [address] Mar, Lumbago with sciatica, unspecified side M54.40 [place] [address] [address] Feb, Lumbago with sciatica, unspecified side M54.40 and Controlled type 2 diabetes mellitus without complication, without long-term current use of insulin E11.9 [place] [address] [address] 16 Jan, 2017 Hypertension, benign I10 and Bilateral l ow back pain with sciatica, sciatica laterality unspecified M54.40 [place] [address] [address] January, Hypertension, benign I10 ; Lumbago with sciatica, unspecified side M54.40 ; Other chronic pain G89.29 and Controlled type 2 diabetes mellitus without complication, without long-term current use of insulin E11.9 [place] [address] [address] January, Lumbar neuritis M54.16 [place] [address] [address] January, [place] [address] [address] Dec, Lumbago with sciatica, right side M54.41 and Lumbar neuritis M54.16 [place] [address] [address] Dec, Lumbar neuritis M54.16 [place] [address] [address] Dec, Lumbar neuritis M54.16 [place] [address] [address] Nov, Lumbar neuritis M54.16 ; Lumbago with sc iatica, right side M54.41 ; Controlled type 2 diabetes mellitus without complication, without long-term current use of insulin E11.9 and Rash and nonspecific skin eruption R21 [place] [address] [address] 09 Nov, 2016 Lumbar neuritis M54.16 and Poison miroslava L2 3.[address] [address] Oct, Lumbar neuritis M54.16 ; Coughing R05 an d Mood disorder F39 [address] [address] Sep, Lumbago with sciatica, right side M54.[address] [address] Sep, Adjustment disorder with disturbance of emotion F43.29 and Pain management R52 [address] [address] Sep, [place] [address] [address] Sep, [address] [address] Sep, Controlled type 2 diabetes mellitus with out complication, without long-term current use of insulin E11.9 and Lumbago with sciatica, unspecified side M54.[address] [address] Aug, Controlled type 2 diabetes mellitus with out complication, without long-term current use of insulin E11.9 ; Pain in right knee M25.561 ; Pain in left knee M25.562 ; Other chronic pain G89.29 ; Lumbago with sciatica, right side M54.41 ; Neck pain M54.2 and Encounter for immunization Z23 [place] [address] [address] Jul, [address] [address] Jul, Controlled type 2 diabetes mellitus with out complication, without long-term current use of insulin E11.9 [place] [address] [address] Jul, [place] [address] [address] Jul, [place] [address] [address] Jul, Lumbago with sciatica, left side M54.42 ; Lumbago with sciatica, right side M54.41 and Other chronic pain G89.29 [place] [address] [address] Jul, [place] [address] [address] Jul, [place] [address] [address] Jun, [place] [address] [address] Jun, Lumbago with sciatica, right side M54.41 and Other chronic pain G89.29 [place] [address] [address] Jun, Cervicalgia M54.2 ; Lumbago with sciatic a, unspecified side M54.40 and Other chronic pain G89.29 [place] [address] [address] 15 May, 2016 Pain in right knee M25.561 ; Pain in lef t knee M25.562 and Other chronic pain G89.29 [place] [address] [address] 14 May, 2016 [place] [address] [address] 05 Apr, 2016 Other chronic pain G89.29 and Pain in ri ght knee M25.561 [place] [address] [address] Apr, Pain in right knee M25.561 [place] [address] [address] Mar, [place] [address] [address] Mar, Mood disorder F39 and Controlled type 2 diabetes mellitus without complication, without long-term current use of insulin E11.9 [place] [address] [address] Mar, Pain in right knee M25.561 ; Pain in lef t knee M25.562 ; Other chronic pain G89.29 ; Obstructive sleep apnea syndrome G47.33 ; Mood disorder F39 and Controlled type 2 diabetes mellitus without complication, without long-term current use of insulin E11.9 [place] [address] [address] Mar, [facility] [address] [id number] Feb, Dental examination Z01.20 [place] [address] [address] Feb, [place] [address] [address] Feb, Osteoarthritis of right knee, unspecifie d osteoarthritis type M17.9 [place] [address] [address] January, [facility] [address] [id number] January, Dental examination Z01.20 [place] [address] [address] January, [facility] [address] [id number] January, Dental examination Z01.20 and Caries K02 .9 [place] [address] [address] Dec, Encounter for other preprocedural examin ation Z01.818 [facility] [address] [address] Dec, [facility] [address] [address] Dec, Knee pain M25.569 [facility] [address] [address] Dec, Pain in right knee M25.561 [facility] [address] [address] Dec, [facility] [address] [address] Dec, [facility] [address] [address] Dec, Encounter for immunization Z23 [facility] [address] [address] Dec, [facility] [address] [address] Dec, [facility] [address] [address] Nov, [facility] [address] [address] Nov, Hypertension, benign I10 ; Cervicalgia M 54.2 ; Pain in right knee M25.561 and Pain in left knee M25.562 [facility] [address] [address] Oct, [facility] [address] [address] Oct, [facility] [address] [address] 11 Oct, 2015 Osteoarthritis of both knees M17.0 [facility] [address] [address] Oct, [place] [address] [address] Oct, Low back pain M54.5 [place] [address] [address] Oct, Low back pain M54.5 ; Sciatica, unspecif ied side M54.30 ; Pain in right knee M25.561 ; Pain in left knee M25.562 ; Pain in right shoulder M25.511 and Pain in left shoulder M25.[address] [address] Oct, [address] [address] Sep, Pain in right hip M25.[address] [address] Sep, Acute upper respiratory infection, unspe cified J06.[address] [address] Aug, Acute upper respiratory infection, unspe cified J06.9 and Other viral agents as the cause of diseases classified elsewhere B97.[address] [address] Jul, Arthritis M19.[address] [address] Jun, Arthritis M19.90 ; Pain in right hip M25 .551 ; Pain in left hip M25.552 ; Bilateral low back pain with sciatica, sciatica laterality unspecified M54.40 ; Neck pain M54.2 ; Upper back pain M54.9 and Knee pain, unspecified laterality M25.[address] [address] May, Osteoarthritis of both knees 715.[address] [address] May, Rash 782.1 [facility] [address] [address] Apr, Lumbar strain 847.2 [facility] [address] [address] Apr, Rash 782.1 [facility] [address] [address] Mar, Rash 782.1 [facility] [address] [address] Feb, Rash 782.1 ; Hemorrhoids 455.6 and Const ipation 564.00 [facility] [address] [address] Feb, Osteoarthritis of both knees 715.96 [facility] [address] [address] January, [facility] [address] [address] Dec, [facility] [address] [address] Dec, [facility] [address] [address] Dec, [facility] [address] [address] Nov, [facility] [address] [address] Nov, [facility] [address] [address] Nov, [facility] [address] [address] Nov, [facility] [address] [address] Nov, [facility] [address] [address] Nov, [facility] [address] [id number] [place] [address] Oct, [facility] [address] [id number] [place] [address] Oct, [facility] [address] [id number] [place] [address] Oct, [facility] [address] [id number] [place] [address] Oct, [facility] [address] [id number] [place] [address] Oct, [facility] [address] [id number] [place] [address] Oct, [facility] [address] [id number] [place] [address] Oct, [facility] [address] [id number] [place] [address] Oct, [facility] [address] [id number] [place] [address] Oct, [facility] [address] [id number] [place] [address] Oct, [facility] [address] [id number] [place] [address] Oct, [facility] [address] [id number] [place] [address] Sep, [facility] [address] [id number] [place] [address] Sep, [facility] [address] [id number] [place] [address] Sep, [facility] [address] [id number] [place] [address] Sep, [facility] [address] [id number] [place] [address] Sep, [facility] [address] [id number] [place] [address] Sep, [facility] [address] [id number] [place] [address] Aug, [facility] [address] [id number] [place] [address] Aug, [facility] [address] [id number] [place] [address] Aug, [facility] [address] [id number] [place] [address] Aug, [facility] [address] [id number] [place] [address] Aug, [facility] [address] [id number] [place] [address] Aug, [facility] [address] [id number] [place] [address] Aug, [facility] [address] [id number] [place] [address] Aug, [facility] [address] [id number] [place] [address] Aug, [facility] [address] [id number] [place] [address] Aug, [facility] [address] [id number] [place] [address] Jul, [facility] [address] [id number] [place] [address] Jul, [facility] [address] [id number] [place] [address] Jul, [facility] [id number] [place] [address] Jul, [facility] [address] [id number] [place] [address] Jun, [facility] [address] [id number] [place] [address] Jun, [facility] [address] [facility] [id number] [place] [address] Jun, [facility] [address] [facility] [id number] [place] [address] Jun, [facility] [address] [id number] [place] [address] Jun, [facility] [address] [id number] [place] [address] Jun, [facility] [address] [facility] [id number] [place] [address] Jun, [facility] [address] [id number] [place] [address] Jun, [facility] [address] [id number] [place] [address] 24 May, 2014 [facility] [address] [id number] [place] [address] 24 May, 2013 [facility] [address] [id number] [place] [address] 19 May, 2013 [facility] [address] [id number] [place] [address] 19 May, 2014 [facility] [address] [id number] [place] [address] 15 May, 2013 [facility] [address] [id number] [place] [address] 15 May, 2013 [facility] [address] [id number] [place] [address] 15 May, 2013 [facility] [address] [id number] [place] [address] 15 May, 2014 [facility] [address] [id number] [place] [address] Apr, [facility] [address] [id number] [place] [address] Apr, [facility] [address] [id number] [place] [address] Apr, [facility] [address] [facility] [id number] [place] [address] Apr, [facility] [address] [facility] [id number] [place] [address] Apr, [facility] [address] [id number] [place] [address] Apr, [facility] [address] [id number] [place] [address] Apr, [facility] [address] [facility] [id number] [place] [address] Apr, [facility] [address] [id number] [place] [address] Apr, [facility] [address] [id number] [place] [address] Apr, [facility] [address] [id number] [place] [address] Apr, [facility] [address] [id number] [place] [address] Apr, [facility] [address] [id number] [place] [address] Mar, [facility] [address] [id number] [place] [address] Mar, [facility] [address] [id number] [place] [address] Mar, [facility] [address] [id number] [place] [address] Mar, [facility] [address] [id number] [place] [address] Mar, [facility] [address] [id number] [place] [address] Mar, [facility] [address] [id number] [place] [address] Feb, [facility] [address] [facility] [id number] [place] [address] 18 Feb, 2014 [facility] [address] [facility] [id number] [place] [address] Feb, [facility] [address] [facility] [id number] [place] [address] Feb, [facility] [address] [id number] [place] [address] Feb, [facility] [address] [facility] [id number] [place] [address] Feb, [facility] [address] [id number] [place] [address] Feb, [facility] [address] [id number] [place] [address] Feb, [facility] [address] [id number] [place] [address] Feb, [facility] [address] [id number] [place] [address] Feb, [facility] [address] [id number] [place] [address] Feb, [facility] [address] [id number] [place] [address] Feb, [facility] [address] [id number] [place] [address] Feb, [facility] [address] [id number] [place] [address] Feb, [facility] [address] [id number] [place] [address] January, [facility] [address] [id number] [place] [address] January, [facility] [address] [id number] [place] [address] January, [facility] [address] [id number] [place] [address] January, [facility] [address] [id number] [place] [address] January, [facility] [address] [id number] [place] [address] January, [facility] [address] [id number] [place] [address] Dec, [facility] [address] [id number] [place] [address] Dec, [facility] [address] [facility] [id number] [place] [address] Dec, [facility] [address] [id number] [place] [address] Dec, [facility] [address] [id number] [place] [address] Dec, [facility] [address] [id number] [place] [address] Dec, [facility] [address] [id number] [place] [address] Dec, [facility] [address] [id number] [place] [address] Dec, [facility] [address] [id number] [place] [address] Nov, [facility] [address] [id number] [place] [address] Nov, [facility] [address] [id number] [place] [address] Nov, [facility] [address] [id number] [place] [address] Nov, [facility] [address] [id number] [place] [address] Nov, [facility] [address] [id number] [place] [address] Nov, [facility] [address] [id number] [place] [address] Nov, [facility] [address] [facility] [id number] [place] [address] Nov, [facility] [address] [facility] [id number] [place] [address] Oct, [facility] [address] [id number] [place] [address] Oct, [facility] [address] [facility] [id number] [place] [address] Oct, [facility] [address] [facility] [id number] [place] [address] Oct, [facility] [address] [id number] [place] [address] Oct, [facility] [address] [id number] [place] [address] Oct, [facility] [address] [id number] [place] [address] Oct, [facility] [address] [id number] [place] [address] Oct, [facility] [address] [id number] [place] [address] Oct, [facility] [address] [id number] [place] [address] Oct, [facility] [address] [id number] [place] [address] Sep, [facility] [address] [facility] [id number] [place] [address] Sep, [facility] [address] [id number] [place] [address] Sep, [facility] [address] [id number] [place] [address] Sep, [facility] [address] [id number] [place] [address] Sep, [facility] [address] [id number] [place] [address] Sep, [facility] [address] [id number] [place] [address] Aug, [facility] [address] [id number] [place] [address] Aug, [facility] [address] [id number] [place] [address] Aug, [facility] [address] [id number] [place] [address] Aug, [facility] [address] [id number] [place] [address] Aug, [facility] [address] [id number] [place] [address] Aug, [facility] [id number] [place] [address] Aug, [facility] [address] [id number] [place] [address] Aug, [facility] [address] [id number] [place] [address] Jul, [facility] [address] [id number] [place] [address] Jul, [facility] [id number] [place] [address] Jul, [facility] [address] [id number] [place] [address] Jul, [facility] [address] [id number] [place] [address] Jul, [facility] [address] [id number] [place] [address] Jul, [facility] [address] [id number] [place] [address] Jun, [facility] [address] [id number] [place] [address] Jun, [facility] [address] [facility] [id number] [place] [address] Jun, [facility] [address] [facility] [id number] [place] [address] May, [facility] [address] [id number] [place] [address] May, [facility] [address] [id number] [place] [address] May, [facility] [address] [id number] [place] [address] Apr, [facility] [address] [id number] [place] [address] Apr, [facility] [address] [id number] [place] [address] Apr, [facility] [address] [id number] [place] [address] Apr, [facility] [address] [id number] [place] [address] Mar, [facility] [address] [id number] [place] [address] Mar, [facility] [address] [id number] [place] [address] Mar, [facility] [address] [id number] [place] [address] Mar, [facility] [address] [id number] [place] [address] Feb, [facility] [address] [id number] [place] [address] Feb, [facility] [address] [id number] [place] [address] Feb, [facility] [address] [id number] [place] [address] Feb, [facility] [address] [id number] [place] [address] January, [facility] [address] [id number] [place] [address] January, [facility] [address] [id number] [place] [address] January, [facility] [address] [id number] [place] [address] Nov, [facility] [address] [id number] [place] [address] Nov, [facility] [address] [id number] [place] [address] Oct, [facility] [address] [id number] [place] [address] Oct, [facility] [address] [id number] [place] [address] Oct, [facility] [address] [id number] [place] [address] Oct, [facility] [address] [id number] [place] [address] Sep, [facility] [address] [id number] [place] [address] Sep, [facility] [address] [id number] [place] [address] Sep, [facility] [address] [id number] [place] [address] Aug, [facility] [address] [id number] [place] [address] Aug, [facility] [address] [id number] [place] [address] Aug, [facility] [address] [id number] [place] [address] Aug, [facility] [address] [id number] [place] [address] Aug, [facility] [address] [id number] [place] [address] Aug, [facility] [address] [id number] [place] [address] Jul, [facility] [address] [id number] [place] [address] Jul, [facility] [address] [id number] [place] [address] Jun, [facility] [address] [facility] [id number] [place] [address] Jun, [facility] [address] [id number] [place] [address] Jun, [facility] [address] [id number] [place] [address] Apr, [facility] [address] [id number] [place] [address] Apr, [facility] [address] [id number] [place] [address] Mar, [facility] [address] [id number] [place] [address] Mar, [facility] [address] [id number] [place] [address] Mar, [facility] [address] [id number] [place] [address] Mar, [facility] [address] [id number] [place] [address] Feb, [facility] [address] [id number] [place] [address] Feb, [facility] [address] [id number] [place] [address] Feb, [facility] [address] [id number] [place] [address] January, [facility] [address] [id number] [place] [address] January, [facility] [address] [id number] [place] [address] January, [facility] [address] [id number] [place] [address] January, [facility] [address] [id number] [place] [address] Dec, [facility] [address] [id number] [place] [address] Dec, [facility] [address] [id number] [place] [address] Nov, [facility] [address] [id number] [place] [address] Nov, [facility] [id number] [place] [address] Oct, [facility] [id number] [place] [address] Oct, [facility] [address] [id number] [place] [address] Sep, [facility] [address] [id number] [place] [address] Sep, [facility] [address] [id number] [place] [address] Sep, [facility] [address] [id number] [place] [address] Sep, [facility] [address] [id number] [place] [address] Aug, [facility] [id number] [place] [address] Aug, [facility] [address] [id number] [place] [address] Aug, [facility] [id number] [place] [address] Jul, [facility] [address] [id number] [place] [address] Aug, [facility] [address] [id number] [place] [address] Aug, [facility] [address] [id number] [place] [address] Aug, [facility] [address] [id number] [place] [address] Aug, [facility] [address] [id number] [place] [address] Jul, [facility] [id number] [place] [address] Jul, [facility] [address] [id number] [place] [address] Jul, [facility] [id number] [place] [address] Jun, [facility] [address] [id number] [place] [address] Jun, [facility] [address] [id number] [place] [address] Jun, [facility] [address] [id number] [place] [address] Apr, [facility] [address] [id number] [place] [address] Mar, IMMUNIZATIONS No Known Immunizations SOCIAL HISTORY [...]
--- OUTSIDE RECORDS SUMMARY | 2020-03-18 15:14 | XMS REPORT ---
Author Author George WAYNE Organization [facility] Address [address] [place] [address] Care Team Providers Care Resistor Tester Name Role Phone REYNA WAYNE Unavailable PROBLEMS Type Condition ICD9-CM Code VKO47-UA Code Onset Dates Condition S tatus SNOMED Code Problem Hypertension, benign I10 Active 75916203 Problem Other chronic pain G89.29 Active 8 3273583 Problem Lumbago with sciatica, unspecified side M54.40 Active 220376773 Problem Controlled type 2 diabetes m ellitus without complication, without long- term current use of insulin E11.9 Active 160319535 Problem Lumbago with sciatica, right side M54.41 Active 529992405 Problem Adjustment disorder with disturbance of emotion F4 3.29 Active 44772582 Problem MELE (obstructive sleep apnea) G47.33 Active 91346425 Problem Non morbid obesity E66.9 Active 4 97640365 Problem Hammer toe of left foot M20.42 Active 856693254 Problem Mood disorder F39 Active 409619 05 Problem Deformity of left foot M21.962 Active 454048775 Problem Lumbago with sciatica, left side M54.42 Active 527415450 Problem Erectile dysfunction due to diseases classified elsewhere N52.1 Active 652273827 Problem Obstructive sleep apnea syndrome G47.33 Active 36850696 Problem Type 2 diabetes mellitus wit h diabetic neuropathy, without long-term current use of insulin E11.40 Active 79355 006 Problem Essential hypertension I10 Active 35297770 ALLERGIES No Information ENCOUNTERS Encounter Location Date Diagnosis [facility] [id number] [place] [address] Sep, [facility] [id number] [place] [address] Aug, [facility] [id number] [place] [address] Jul, Lumbago with sciatica, unspecified side M54.40 [facility] [address] [address] Jun, Lumbago with sciatica, unspecified side M54.40 [facility] [address] [address] Jun, URI, acute J06.9 [facility] [address] [address] May, Lumbago with sciatica, unspecified side M54.40 [place] [address] [address] May, [place] [address] [address] May, Type 2 diabetes mellitus with diabetic n europathy, without long-term current use of insulin E11.40 and Hammer toe of left foot M20.42 [place] [address] [address] May, [place] [address] [address] May, [place] [address] [address] May, [place] [address] [address] Apr, Lumbago with sciatica, unspecified side M54.40 [place] [address] [address] Apr, [facility] [address] [address] Apr, [address] [place] [address] Apr, Hammer toe of left foot M20. 42 ; Chest pain R07.9 ; Preoperative examination Z01.818 and Morbid obesity E66.01 [place] [address] [address] Apr, Morbid obesity E66.01 ; Bronchitis J40 a nd High risk medications (not anticoagulants) long-term use Z79.899 [place] [address] [address] Apr, Lumbago with sciatica, unspecified side M54.40 [place] [address] [address] Apr, [place] [address] [address] Mar, Lumbar neuritis M54.16 and Morbid obesit y E66.01 [place] [address] [address] Mar, [place] [address] [address] Mar, [place] [address] [address] Mar, Lumbago with sciatica, unspecified side M54.40 [place] [address] [address] Mar, Morbid obesity E66.01 ; Coughing R05 ; 2 + pitting edema R60.9 and Controlled type 2 diabetes mellitus without complication, without long-term current use of insulin E11.9 [place] [address] [address] Feb, [place] [address] [address] Feb, Lumbago with sciatica, unspecified side M54.40 [place] [address] [address] Feb, [place] [address] [address] Feb, Controlled type 2 diabetes mellitus with out complication, without long-term current use of insulin E11.9 and Morbid obesity E66.01 [place] [address] [address] January, Deformity of left foot M21.962 [facility] [address] [address] January, [facility] [address] [address] January, Lumbago with sciatica, unspecified side M54.40 [place] [address] [address] January, [place] [address] [address] January, Lumbago with sciatica, unspecified side M54.40 [place] [address] [address] January, [place] [address] [address] January, Acute right-sided thoracic back pain M54 .6 [place] [address] [address] January, Acute right-sided thoracic back pain M54 .6 [place] [address] [address] January, Chest pain, unspecified type R07.9 ; Mor bid obesity E66.01 and Scabies B86 [place] [address] [address] Dec, Lumbago with sciatica, unspecified side M54.40 [place] [address] [address] Dec, Toenail fungus B35.1 [place] [address] [address] Dec, Toenail fungus B35.1 [place] [address] [address] Dec, Acute right-sided thoracic back pain M54 .6 [place] [address] [address] Dec, Lumbago with sciatica, unspecified side M54.40 [facility] [address] [address] Nov, Hammer toe of left foot M20.42 ; Deformi ty of left foot M21.962 and Type 2 diabetes mellitus with diabetic neuropathy, without long-term current use of insulin E11.40 [facility] [address] [facility] [id number] [place] [address] Nov, Acute right-sided thoracic b ack pain M54.6 ; Morbid obesity E66.01 and Rt flank pain R10.9 [place] [address] [address] Nov, Lumbago with sciatica, unspecified side M54.40 [place] [address] [address] Oct, Lumbago with sciatica, unspecified side M54.40 [place] [address] [address] Sep, Lumbago with sciatica, unspecified side M54.40 [place] [address] [address] Sep, [place] [address] [address] Sep, BMI 40.0-44.9, adult Z68.41 ; Lumbago wi th sciatica, left side M54.42 ; Lumbago with sciatica, right side M54.41 and Other chronic pain G89.29 [place] [address] [address] Aug, Lumbago with sciatica, unspecified side M54.40 [place] [address] [address] Aug, Type 2 diabetes mellitus with diabetic n europathy, without long-term current use of insulin E11.40 ; Hammer toe of left foot M20.42 ; Hypertension, benign I10 and Frequent headaches R51 [place] [address] [address] Jul, Lumbago with sciatica, unspecified side M54.40 [place] [address] [place] [address] Jul, [place] [address] [place] [address] Jul, Essential hypertension I10 and Controlle d type 2 diabetes mellitus without complication, without long-term current use of insulin E11.9 [place] [address] [address] Jul, Essential hypertension I10 ; Controlled type 2 diabetes mellitus without complication, without long-term current use of insulin E11.9 and BMI 40.0-44.9, adult Z68.41 [place] [address] [address] Jul, Dysfunction of left eustachian tube H69. 82 [place] [address] [address] Jul, Lumbago with sciatica, unspecified side M54.40 [facility] [address] [place] [id number] [place] [id number] Jun, Dental examination Z01.20 [place] [address] [address] Jun, Lumbago with sciatica, unspecified side M54.40 and Encounter for immunization Z23 [place] [address] [address] Jun, Dysfunction of left eustachian tube H69. [address] [facility] [address] [id number] [id number] Jun, Dental examination Z01.20 [facility] [address] [place] [address] [place] [address] Jun, Other chronic pain G89.29 [facility] [address] [facility] [place] [id number] Jun, Dental examination Z01.20 [facility] [address] [address] Jun, [facility] [address] [address] Jun, Bronchitis J40 ; Dysfunction of left eus tachian tube H69.82 and BMI 45.0-49.9, adult Z68.42 [place] [address] [address] Jun, Lumbago with sciatica, unspecified side M54.40 [place] [address] [address] May, Type 2 diabetes mellitus with diabetic n europathy, without long-term current use of insulin E11.40 and Hypertension, benign I10 [place] [address] [address] May, Lumbago with sciatica, unspecified side M54.40 [facility] [address] [facility] [id number] [place] [address] Apr, [facility] [address] [address] Apr, Controlled type 2 diabetes mellitus with out complication, without long-term current use of insulin E11.9 ; Insect bite (nonvenomous), right ankle, initial encounter S90.561A ; Local infection of the skin and subcutaneous tissue, unspecified L08.9 ; Acute swimmer''s ear of left side H60.332 and BMI 45.0-49.9, adult Z68.42 [place] [address] [address] Apr, Lumbago with sciatica, unspecified side M54.40 [place] [address] [address] Mar, [place] [address] [address] Mar, Lumbago with sciatica, unspecified side M54.40 [place] [address] [address] Feb, Lumbago with sciatica, unspecified side M54.40 [place] [address] [address] Feb, BMI 45.0-49.9, adult Z68.42 and Obstruct jaida sleep apnea syndrome G47.33 [place] [address] [address] January, Lumbar neuritis M54.[address] [address] January, Lumbago with sciatica, unspecified side M54.40 [place] [address] [address] Dec, Controlled type 2 diabetes mellitus with out complication, without long-term current use of insulin E11.9 ; Erectile dysfunction due to diseases classified elsewhere N52.1 and Mood disorder F39 [place] [address] [address] Dec, Lumbago with sciatica, unspecified side M54.40 [place] [address] [address] Dec, Obstructive sleep apnea syndrome G47.[address] [address] Nov, Lumbago with sciatica, unspecified side M54.40 ; Hypertension, benign I10 and Mood disorder F39 [place] [address] [address] Nov, Other chronic pain G89.29 [place] [address] [address] Nov, Lumbago with sciatica, unspecified side M54.40 [facility] [address] [id number] Nov, Dental examination Z01.20 [facility] [address] [address] Oct, [facility] [address] [place] [address] Oct, Lumbago with sciatica, unspecified side M54.40 [facility] [address] [address] Oct, Lumbago with sciatica, unspecified side M54.40 [facility] [address] [address] Oct, [facility] [address] [address] Oct, [facility] [address] [id number] Oct, Dental examination Z01.20 [facility] [address] [address] Oct, [facility] [address] [address] Oct, Pain in right knee M25.561 [facility] [address] [address] Sep, [facility] [address] [address] Sep, Other chronic pain G89.29 [facility] [address] [address] Sep, Lumbago with sciatica, unspecified side M54.40 [facility] [address] [address] Sep, [facility] [address] [place] [id number] [place] [address] Sep, Viral URI J06.9 and BMI 45.0 -49.9, adult Z68.42 [facility] [address] [place] [id number] [place] [address] Aug, Foreign body hand S60.559A a nd BMI 45.0-49.9, adult Z68.42 [place] [address] [address] Aug, [place] [address] [address] Aug, Lumbago with sciatica, unspecified side M54.40 [place] [address] [address] Aug, Vertigo R42 ; Dysfunction of both eustac hian tubes H69.83 ; Low back pain M54.5 and Other chronic pain G89.29 [facility] [address] [place] [id number] [place] [address] Aug, Dizziness R42 and Acute bila teral otitis media H66.93 [place] [address] [address] Aug, Lumbago with sciatica, unspecified side M54.40 [facility] [address] [facility] [place] [address] Jul, Dental examination Z01.20 [place] [address] [address] Jul, [place] [address] [address] Jul, [place] [address] [address] Jul, Dysfunction of both eustachian tubes H69 .83 [place] [address] [address] Jul, Controlled type 2 diabetes mellitus with out complication, without long-term current use of insulin E11.9 [facility] [address] [address] Jul, Controlled type 2 diabetes mellitus with out complication, without long-term current use of insulin E11.9 [facility] [address] [facility] [id number] [address] [place] [address] Jul, Dizziness R42 and BMI 40.0-4 4.9, adult Z68.41 [facility] [address] [address] Jul, Controlled type 2 diabetes mellitus with out complication, without long-term current use of insulin E11.9 [place] [address] [address] Jul, Lumbago with sciatica, unspecified side M54.40 [facility] [address] [id number] Jul, Dental examination Z01.20 [facility] [address] [address] Jun, [facility] [address] [id number] Jun, Dental examination Z01.20 [place] [address] [address] Jun, Controlled type 2 diabetes mellitus with out complication, without long-term current use of insulin E11.9 [facility] [address] [address] Jun, Lumbago with sciatica, unspecified side M54.40 [facility] [address] [id number] May, Dental examination Z01.20 [facility] [address] [address] May, Controlled type 2 diabetes mellitus with out complication, without long-term current use of insulin E11.9 [facility] [address] [id number] May, Dental examination Z01.20 [facility] [address] [address] 18 May, 2017 Bronchitis J40 ; Dry mouth R68.2 ; Non m orbid obesity E66.9 and Controlled type 2 diabetes mellitus without complication, without long-term current use of insulin E11.9 [facility] [address] [address] 16 May, 2017 Encounter for immunization Z 23 [place] [address] [address] 07 May, 2017 Lumbago with sciatica, unspecified side M54.40 [place] [address] [address] 05 May, 2017 [facility] [address] [id number] Apr, Dental examination Z01.20 [place] [address] [address] Apr, Lumbago with sciatica, unspecified side M54.40 [facility] [address] [address] Mar, Lumbago with sciatica, left side M54.42 [place] [address] [address] Mar, [place] [address] [address] Mar, Lumbar neuritis M54.16 [facility] [address] [address] Mar, [facility] [address] [id number] Mar, Dental examination Z01.20 [place] [address] [address] Mar, MELE (obstructive sleep apnea) G47.33 ; N europathy involving both lower extremities G57.93 and Frequent headaches R51 [place] [address] [address] Mar, Lumbago with sciatica, unspecified side M54.40 [place] [address] [address] Feb, Lumbago with sciatica, unspecified side M54.40 and Controlled type 2 diabetes mellitus without complication, without long-term current use of insulin E11.9 [place] [address] [address] 16 Jan, 2017 Hypertension, benign I10 and Bilateral l ow back pain with sciatica, sciatica laterality unspecified M54.40 [place] [address] [address] January, Hypertension, benign I10 ; Lumbago with sciatica, unspecified side M54.40 ; Other chronic pain G89.29 and Controlled type 2 diabetes mellitus without complication, without long-term current use of insulin E11.9 [place] [address] [address] January, Lumbar neuritis M54.16 [place] [address] [address] January, [place] [address] [address] Dec, Lumbago with sciatica, right side M54.41 and Lumbar neuritis M54.16 [place] [address] [address] Dec, Lumbar neuritis M54.16 [place] [address] [address] Dec, Lumbar neuritis M54.16 [place] [address] [address] Nov, Lumbar neuritis M54.16 ; Lumbago with sc iatica, right side M54.41 ; Controlled type 2 diabetes mellitus without complication, without long-term current use of insulin E11.9 and Rash and nonspecific skin eruption R21 [place] [address] [address] 09 Nov, 2016 Lumbar neuritis M54.16 and Poison miroslava L2 3.[address] [address] Oct, Lumbar neuritis M54.16 ; Coughing R05 an d Mood disorder F39 [address] [address] Sep, Lumbago with sciatica, right side M54.[address] [address] Sep, Adjustment disorder with disturbance of emotion F43.29 and Pain management R52 [address] [address] Sep, [place] [address] [address] Sep, [address] [address] Sep, Controlled type 2 diabetes mellitus with out complication, without long-term current use of insulin E11.9 and Lumbago with sciatica, unspecified side M54.[address] [address] Aug, Controlled type 2 diabetes mellitus with out complication, without long-term current use of insulin E11.9 ; Pain in right knee M25.561 ; Pain in left knee M25.562 ; Other chronic pain G89.29 ; Lumbago with sciatica, right side M54.41 ; Neck pain M54.2 and Encounter for immunization Z23 [place] [address] [address] Jul, [address] [address] Jul, Controlled type 2 diabetes mellitus with out complication, without long-term current use of insulin E11.9 [place] [address] [address] Jul, [place] [address] [address] Jul, [place] [address] [address] Jul, Lumbago with sciatica, left side M54.42 ; Lumbago with sciatica, right side M54.41 and Other chronic pain G89.29 [place] [address] [address] Jul, [place] [address] [address] Jul, [place] [address] [address] Jun, [place] [address] [address] Jun, Lumbago with sciatica, right side M54.41 and Other chronic pain G89.29 [place] [address] [address] Jun, Cervicalgia M54.2 ; Lumbago with sciatic a, unspecified side M54.40 and Other chronic pain G89.29 [place] [address] [address] 15 May, 2016 Pain in right knee M25.561 ; Pain in lef t knee M25.562 and Other chronic pain G89.29 [place] [address] [address] 14 May, 2016 [place] [address] [address] 05 Apr, 2016 Other chronic pain G89.29 and Pain in ri ght knee M25.561 [place] [address] [address] Apr, Pain in right knee M25.561 [place] [address] [address] Mar, [place] [address] [address] Mar, Mood disorder F39 and Controlled type 2 diabetes mellitus without complication, without long-term current use of insulin E11.9 [place] [address] [address] Mar, Pain in right knee M25.561 ; Pain in lef t knee M25.562 ; Other chronic pain G89.29 ; Obstructive sleep apnea syndrome G47.33 ; Mood disorder F39 and Controlled type 2 diabetes mellitus without complication, without long-term current use of insulin E11.9 [place] [address] [address] Mar, [facility] [address] [id number] Feb, Dental examination Z01.20 [place] [address] [address] Feb, [place] [address] [address] Feb, Osteoarthritis of right knee, unspecifie d osteoarthritis type M17.9 [place] [address] [address] January, [facility] [address] [id number] January, Dental examination Z01.20 [place] [address] [address] January, [facility] [address] [id number] January, Dental examination Z01.20 and Caries K02 .9 [place] [address] [address] Dec, Encounter for other preprocedural examin ation Z01.818 [facility] [address] [address] Dec, [facility] [address] [address] Dec, Knee pain M25.569 [facility] [address] [address] Dec, Pain in right knee M25.561 [facility] [address] [address] Dec, [facility] [address] [address] Dec, [facility] [address] [address] Dec, Encounter for immunization Z23 [facility] [address] [address] Dec, [facility] [address] [address] Dec, [facility] [address] [address] Nov, [facility] [address] [address] Nov, Hypertension, benign I10 ; Cervicalgia M 54.2 ; Pain in right knee M25.561 and Pain in left knee M25.562 [facility] [address] [address] Oct, [facility] [address] [address] Oct, [facility] [address] [address] 11 Oct, 2015 Osteoarthritis of both knees M17.0 [facility] [address] [address] Oct, [place] [address] [address] Oct, Low back pain M54.5 [place] [address] [address] Oct, Low back pain M54.5 ; Sciatica, unspecif ied side M54.30 ; Pain in right knee M25.561 ; Pain in left knee M25.562 ; Pain in right shoulder M25.511 and Pain in left shoulder M25.[address] [address] Oct, [address] [address] Sep, Pain in right hip M25.[address] [address] Sep, Acute upper respiratory infection, unspe cified J06.[address] [address] Aug, Acute upper respiratory infection, unspe cified J06.9 and Other viral agents as the cause of diseases classified elsewhere B97.[address] [address] Jul, Arthritis M19.[address] [address] Jun, Arthritis M19.90 ; Pain in right hip M25 .551 ; Pain in left hip M25.552 ; Bilateral low back pain with sciatica, sciatica laterality unspecified M54.40 ; Neck pain M54.2 ; Upper back pain M54.9 and Knee pain, unspecified laterality M25.[address] [address] May, Osteoarthritis of both knees 715.[address] [address] May, Rash 782.1 [facility] [address] [address] Apr, Lumbar strain 847.2 [facility] [address] [address] Apr, Rash 782.1 [facility] [address] [address] Mar, Rash 782.1 [facility] [address] [address] Feb, Rash 782.1 ; Hemorrhoids 455.6 and Const ipation 564.00 [facility] [address] [address] Feb, Osteoarthritis of both knees 715.96 [facility] [address] [address] January, [facility] [address] [address] Dec, [facility] [address] [address] Dec, [facility] [address] [address] Dec, [facility] [address] [address] Nov, [facility] [address] [address] Nov, [facility] [address] [address] Nov, [facility] [address] [address] Nov, [facility] [address] [address] Nov, [facility] [address] [address] Nov, [facility] [address] [facility] [id number] [place] [address] Oct, [facility] [address] [id number] [place] [address] Oct, [facility] [address] [facility] [id number] [place] [address] Oct, [facility] [address] [id number] [place] [address] Oct, [facility] [address] [id number] [place] [address] Oct, [facility] [address] [facility] [id number] [place] [address] Oct, [facility] [address] [facility] [id number] [place] [address] Oct, [facility] [address] [facility] [id number] [place] [address] Oct, [facility] [address] [facility] [id number] [place] [address] Oct, [facility] [address] [facility] [id number] [place] [address] Oct, [facility] [address] [facility] [id number] [place] [address] Oct, [facility] [address] [facility] [id number] [place] [address] Sep, [facility] [address] [facility] [id number] [place] [address] Sep, [facility] [address] [facility] [id number] [place] [address] Sep, [facility] [address] [facility] [id number] [place] [address] Sep, [facility] [address] [facility] [id number] [place] [address] Sep, [facility] [address] [facility] [id number] [place] [address] Sep, [facility] [address] [facility] [id number] [place] [address] Aug, [facility] [address] [facility] [id number] [place] [address] Aug, [facility] [address] [facility] [id number] [place] [address] Aug, [facility] [address] [facility] [id number] [place] [address] Aug, [facility] [address] [id number] [place] [address] Aug, [facility] [address] [facility] [id number] [place] [address] Aug, [facility] [address] [facility] [id number] [place] [address] Aug, [facility] [address] [id number] [place] [address] Aug, [facility] [address] [id number] [place] [address] Aug, [facility] [address] [id number] [place] [address] Aug, [facility] [address] [facility] [id number] [place] [address] Jul, [facility] [address] [facility] [id number] [place] [address] Jul, [facility] [address] [facility] [id number] [place] [address] Jul, [facility] [id number] [place] [address] Jul, [facility] [address] [facility] [id number] [place] [address] Jun, [facility] [address] [id number] [place] [address] Jun, [facility] [address] [facility] [id number] [place] [address] Jun, [facility] [address] [facility] [id number] [place] [address] Jun, [facility] [address] [facility] [id number] [place] [address] Jun, [facility] [address] [facility] [id number] [place] [address] Jun, [facility] [address] [facility] [id number] [place] [address] Jun, [facility] [address] [facility] [id number] [place] [address] Jun, [facility] [address] [id number] [place] [address] 24 May, 2014 [facility] [address] [id number] [place] [address] 24 May, 2013 [facility] [address] [id number] [place] [address] 19 May, 2013 [facility] [address] [facility] [id number] [place] [address] 19 May, 2014 [facility] [address] [facility] [id number] [place] [address] 15 May, 2013 [facility] [address] [id number] [place] [address] 15 May, 2013 [facility] [address] [id number] [place] [address] 15 May, 2013 [facility] [address] [facility] [id number] [place] [address] 15 May, 2014 [facility] [address] [facility] [id number] [place] [address] Apr, [facility] [address] [id number] [place] [address] Apr, [facility] [address] [id number] [facility] [place] [address] Apr, [facility] [address] [facility] [id number] [facility] [place] [address] Apr, [facility] [address] [facility] [id number] [place] [address] Apr, [facility] [address] [facility] [id number] [place] [address] Apr, [facility] [address] [facility] [id number] [place] [address] Apr, [facility] [address] [facility] [id number] [place] [address] Apr, [facility] [address] [facility] [id number] [place] [address] Apr, [facility] [address] [facility] [id number] [place] [address] Apr, [facility] [address] [facility] [id number] [place] [address] Apr, [facility] [address] [id number] [place] [address] Apr, [facility] [address] [facility] [id number] [place] [address] Mar, [facility] [address] [facility] [id number] [place] [address] Mar, [facility] [address] [facility] [id number] [place] [address] Mar, [facility] [address] [facility] [id number] [place] [address] Mar, [facility] [address] [facility] [id number] [place] [address] Mar, [facility] [address] [id number] [place] [address] Mar, [facility] [address] [facility] [id number] [place] [address] Feb, [facility] [address] [facility] [id number] [place] [address] 18 Feb, 2014 [facility] [address] [facility] [id number] [place] [address] Feb, [facility] [address] [facility] [id number] [place] [address] Feb, [facility] [address] [facility] [id number] [place] [address] Feb, [facility] [address] [facility] [id number] [place] [address] Feb, [facility] [address] [facility] [id number] [place] [address] Feb, [facility] [address] [id number] [place] [address] Feb, [facility] [address] [id number] [place] [address] Feb, [facility] [address] [id number] [place] [address] Feb, [facility] [address] [facility] [id number] [place] [address] Feb, [facility] [address] [facility] [id number] [place] [address] Feb, [facility] [address] [facility] [id number] [place] [address] Feb, [facility] [address] [facility] [id number] [place] [address] Feb, [facility] [address] [facility] [id number] [place] [address] January, [facility] [address] [facility] [id number] [place] [address] January, [facility] [address] [id number] [place] [address] January, [facility] [address] [facility] [id number] [place] [address] January, [facility] [address] [facility] [id number] [place] [address] January, [facility] [address] [facility] [id number] [facility] [place] [address] January, [facility] [address] [facility] [id number] [place] [address] Dec, [facility] [address] [facility] [id number] [facility] [place] [address] Dec, [facility] [address] [facility] [id number] [facility] [place] [address] Dec, [facility] [address] [facility] [id number] [place] [address] Dec, [facility] [address] [facility] [id number] [place] [address] Dec, [facility] [address] [id number] [place] [address] Dec, [facility] [address] [id number] [place] [address] Dec, [facility] [address] [id number] [place] [address] Dec, [facility] [address] [id number] [place] [address] Nov, [facility] [address] [id number] [place] [address] Nov, [facility] [address] [id number] [place] [address] Nov, [facility] [address] [id number] [place] [address] Nov, [facility] [address] [id number] [place] [address] Nov, [facility] [address] [id number] [place] [address] Nov, [facility] [address] [facility] [id number] [facility] [place] [address] Nov, [facility] [address] [facility] [id number] [facility] [place] [address] Nov, [facility] [address] [facility] [id number] [place] [address] Oct, [facility] [address] [facility] [id number] [place] [address] Oct, [facility] [address] [facility] [id number] [place] [address] Oct, [facility] [address] [facility] [id number] [place] [address] Oct, [facility] [address] [facility] [id number] [place] [address] Oct, [facility] [address] [facility] [id number] [place] [address] Oct, [facility] [address] [facility] [id number] [place] [address] Oct, [facility] [address] [facility] [id number] [place] [address] Oct, [facility] [address] [facility] [id number] [place] [address] Oct, [facility] [address] [facility] [id number] [place] [address] Oct, [facility] [address] [facility] [id number] [place] [address] Sep, [facility] [address] [facility] [id number] [place] [address] Sep, [facility] [address] [facility] [id number] [place] [address] Sep, [facility] [address] [facility] [id number] [place] [address] Sep, [facility] [address] [facility] [id number] [place] [address] Sep, [facility] [address] [facility] [id number] [place] [address] Sep, [facility] [address] [facility] [id number] [place] [address] Aug, [facility] [address] [facility] [id number] [place] [address] Aug, [facility] [address] [id number] [place] [address] Aug, [facility] [address] [facility] [id number] [place] [address] Aug, [facility] [address] [facility] [id number] [place] [address] Aug, [facility] [address] [facility] [id number] [place] [address] Aug, [facility] [id number] [place] [address] Aug, [facility] [address] [facility] [id number] [place] [address] Aug, [facility] [address] [facility] [id number] [place] [address] Jul, [facility] [address] [facility] [id number] [place] [address] Jul, [facility] [id number] [place] [address] Jul, [facility] [address] [facility] [id number] [place] [address] Jul, [facility] [address] [facility] [id number] [place] [address] Jul, [facility] [address] [facility] [id number] [place] [address] Jul, [facility] [address] [facility] [id number] [place] [address] Jun, [facility] [address] [facility] [id number] [place] [address] Jun, [facility] [address] [facility] [id number] [facility] [place] [address] Jun, [facility] [address] [facility] [id number] [place] [address] May, [facility] [address] [facility] [id number] [place] [address] May, [facility] [address] [facility] [id number] [place] [address] May, [facility] [address] [facility] [id number] [place] [address] Apr, [facility] [address] [facility] [id number] [place] [address] Apr, [facility] [address] [facility] [id number] [place] [address] Apr, [facility] [address] [facility] [id number] [place] [address] Apr, [facility] [address] [facility] [id number] [place] [address] Mar, [facility] [address] [facility] [id number] [place] [address] Mar, [facility] [address] [facility] [id number] [place] [address] Mar, [facility] [address] [facility] [id number] [place] [address] Mar, [facility] [address] [facility] [id number] [place] [address] Feb, [facility] [address] [facility] [id number] [place] [address] Feb, [facility] [address] [facility] [id number] [place] [address] Feb, [facility] [address] [facility] [id number] [place] [address] Feb, [facility] [address] [facility] [id number] [place] [address] January, [facility] [address] [facility] [id number] [place] [address] January, [facility] [address] [facility] [id number] [place] [address] January, [facility] [address] [facility] [id number] [place] [address] Nov, [facility] [address] [facility] [id number] [place] [address] Nov, [facility] [address] [facility] [id number] [place] [address] Oct, [facility] [address] [facility] [id number] [place] [address] Oct, [facility] [address] [facility] [id number] [place] [address] Oct, [facility] [address] [facility] [id number] [place] [address] Oct, [facility] [address] [facility] [id number] [place] [address] Sep, [facility] [address] [facility] [id number] [place] [address] Sep, [facility] [address] [facility] [id number] [place] [address] Sep, [facility] [address] [facility] [id number] [place] [address] Aug, [facility] [address] [facility] [id number] [place] [address] Aug, [facility] [address] [facility] [id number] [place] [address] Aug, [facility] [address] [id number] [place] [address] Aug, [facility] [address] [id number] [place] [address] Aug, [facility] [address] [id number] [place] [address] Aug, [facility] [address] [id number] [place] [address] Jul, [facility] [address] [id number] [place] [address] Jul, [facility] [address] [id number] [place] [address] Jun, [facility] [address] [facility] [id number] [place] [address] Jun, [facility] [address] [id number] [place] [address] Jun, [facility] [address] [id number] [place] [address] Apr, [facility] [address] [id number] [place] [address] Apr, [facility] [address] [id number] [place] [address] Mar, [facility] [address] [id number] [place] [address] Mar, [facility] [address] [id number] [place] [address] Mar, [facility] [address] [id number] [place] [address] Mar, [facility] [address] [id number] [place] [address] Feb, [facility] [address] [id number] [place] [address] Feb, [facility] [address] [id number] [place] [address] Feb, [facility] [address] [id number] [place] [address] January, [facility] [address] [id number] [place] [address] January, [facility] [address] [id number] [place] [address] January, [facility] [address] [id number] [place] [address] January, [facility] [address] [id number] [place] [address] Dec, [facility] [address] [id number] [place] [address] Dec, [facility] [address] [id number] [place] [address] Nov, [facility] [address] [id number] [place] [address] Nov, [facility] [id number] [place] [address] Oct, [facility] [id number] [place] [address] Oct, [facility] [address] [id number] [place] [address] Sep, [facility] [address] [id number] [place] [address] Sep, [facility] [address] [id number] [place] [address] Sep, [facility] [address] [id number] [place] [address] Sep, [facility] [address] [id number] [place] [address] Aug, [facility] [id number] [place] [address] Aug, [facility] [address] [id number] [place] [address] Aug, [facility] [id number] [place] [address] Jul, [facility] [address] [id number] [place] [address] Aug, [facility] [address] [id number] [place] [address] Aug, [facility] [address] [id number] [place] [address] Aug, [facility] [address] [id number] [place] [address] Aug, [facility] [address] [id number] [place] [address] Jul, [facility] [id number] [place] [address] Jul, [facility] [address] [id number] [place] [address] Jul, [facility] [id number] [place] [address] Jun, [facility] [id number] [place] [address] Jun, [facility] [id number] [place] [address] Jun, [facility] [id number] [place] [address] Apr, [facility] [id number] [place] [address] Mar, IMMUNIZATIONS No Known Immunizations SOCIAL HISTORY [...]
--- OUTSIDE RECORDS SUMMARY | 2020-03-18 15:15 | XMS REPORT ---
Author Author George Marx Doctor Organization [facility] Address Unknown Phone Unavailable Care Team Providers Care [employer] Supervisor Name Role Phone Migration, Doctor Unavailable Unavailable PROBLEMS Type Condition ICD9-CM Code AQN85-LY Code Onset Dates Condition S tatus SNOMED Code Problem Hypertension, benign I10 Active 12448577 Problem Other chronic pain G89.29 Active 8 0108759 Problem Lumbago with sciatica, unspecified side M54.40 Active 949717306 Problem Controlled type 2 diabetes m ellitus without complication, without long- term current use of insulin E11.9 Active 655311568 Problem Lumbago with sciatica, right side M54.41 Active 605513585 Problem Adjustment disorder with disturbance of emotion F4 3.29 Active 57890339 Problem MELE (obstructive sleep apnea) G47.33 Active 04064455 Problem Non morbid obesity E66.9 Active 4 21284936 Problem Hammer toe of left foot M20.42 Active 644842705 Problem Mood disorder F39 Active 946534 05 Problem Deformity of left foot M21.962 Active 778121715 Problem Lumbago with sciatica, left side M54.42 Active 835171886 Problem Erectile dysfunction due to diseases classified elsewhere N52.1 Active 479591624 Problem Obstructive sleep apnea syndrome G47.33 Active 19775849 Problem Type 2 diabetes mellitus wit h diabetic neuropathy, without long-term current use of insulin E11.40 Active 70757 006 Problem Essential hypertension I10 Active 90448701 ALLERGIES No Information ENCOUNTERS Encounter Location Date Diagnosis [facility] [address] [id number] [place] [address] Sep, [facility] [id number] [place] [address] Aug, [facility] [id number] [place] [address] Jul, Lumbago with sciatica, unspecified side M54.40 [facility] [address] [address] Jun, Lumbago with sciatica, unspecified side M54.40 [place] [address] [address] Jun, URI, acute J06.9 [facility] [address] [address] May, Lumbago with sciatica, unspecified side M54.40 [place] [address] [address] May, [place] [address] [address] May, Type 2 diabetes mellitus with diabetic n europathy, without long-term current use of insulin E11.40 and Hammer toe of left foot M20.42 [place] [address] [address] May, [place] [address] [address] May, [facility] [address] [address] May, [facility] [address] [address] Apr, Lumbago with sciatica, unspecified side M54.40 [place] [address] [address] Apr, [facility] [address] [address] Apr, [place] [address] [address] [place] [address] Apr, Hammer toe of left foot M20. 42 ; Chest pain R07.9 ; Preoperative examination Z01.818 and Morbid obesity E66.01 [facility] [address] [address] Apr, Morbid obesity E66.01 ; Bronchitis J40 a nd High risk medications (not anticoagulants) long-term use Z79.899 [place] [address] [address] Apr, Lumbago with sciatica, unspecified side M54.40 [place] [address] [address] Apr, [place] [address] [address] Mar, Lumbar neuritis M54.16 and Morbid obesit y E66.01 [place] [address] [address] Mar, [place] [address] [address] Mar, [place] [address] [address] Mar, Lumbago with sciatica, unspecified side M54.40 [place] [address] [address] Mar, Morbid obesity E66.01 ; Coughing R05 ; 2 + pitting edema R60.9 and Controlled type 2 diabetes mellitus without complication, without long-term current use of insulin E11.9 [place] [address] [address] Feb, [place] [address] [address] Feb, Lumbago with sciatica, unspecified side M54.40 [place] [address] [address] Feb, [place] [address] [address] Feb, Controlled type 2 diabetes mellitus with out complication, without long-term current use of insulin E11.9 and Morbid obesity E66.01 [place] [address] [address] January, Deformity of left foot M21.962 [facility] [address] [address] January, [facility] [address] [address] January, Lumbago with sciatica, unspecified side M54.40 [place] [address] [address] January, [facility] [address] [address] January, Lumbago with sciatica, unspecified side M54.40 [place] [address] [address] January, [place] [address] [address] January, Acute right-sided thoracic back pain M54 .6 [place] [address] [address] January, Acute right-sided thoracic back pain M54 .6 [place] [address] [address] January, Chest pain, unspecified type R07.9 ; Mor bid obesity E66.01 and Scabies B86 [place] [address] [address] Dec, Lumbago with sciatica, unspecified side M54.40 [place] [address] [address] Dec, Toenail fungus B35.1 [place] [address] [address] Dec, Toenail fungus B35.1 [place] [address] [address] Dec, Acute right-sided thoracic back pain M54 .6 [place] [address] [address] Dec, Lumbago with sciatica, unspecified side M54.40 [place] [address] [address] Nov, Hammer toe of left foot M20.42 ; Deformi ty of left foot M21.962 and Type 2 diabetes mellitus with diabetic neuropathy, without long-term current use of insulin E11.40 [facility] [address] [facility] [id number] [place] [address] Nov, Acute right-sided thoracic b ack pain M54.6 ; Morbid obesity E66.01 and Rt flank pain R10.9 [place] [address] [address] Nov, Lumbago with sciatica, unspecified side M54.40 [place] [address] [address] Oct, Lumbago with sciatica, unspecified side M54.40 [place] [address] [address] Sep, Lumbago with sciatica, unspecified side M54.40 [place] [address] [address] Sep, [place] [address] [address] Sep, BMI 40.0-44.9, adult Z68.41 ; Lumbago wi th sciatica, left side M54.42 ; Lumbago with sciatica, right side M54.41 and Other chronic pain G89.29 [place] [address] [address] Aug, Lumbago with sciatica, unspecified side M54.40 [place] [address] [address] Aug, Type 2 diabetes mellitus with diabetic n europathy, without long-term current use of insulin E11.40 ; Hammer toe of left foot M20.42 ; Hypertension, benign I10 and Frequent headaches R51 [place] [address] [place] [address] [address] Jul, Lumbago with sciatica, unspecified side M54.40 [place] [address] [address] Jul, [place] [address] Jul, Essential hypertension I10 and Controlle d type 2 diabetes mellitus without complication, without long-term current use of insulin E11.9 [place] [address] [place] [address] [address] Jul, Essential hypertension I10 ; Controlled type 2 diabetes mellitus without complication, without long-term current use of insulin E11.9 and BMI 40.0-44.9, adult Z68.41 [place] [address] [address] Jul, Dysfunction of left eustachian tube H69. 82 [place] [address] [address] Jul, Lumbago with sciatica, unspecified side M54.40 [facility] [id number] [place] [id number] Jun, Dental examination Z01.20 [place] [address] [address] Jun, Lumbago with sciatica, unspecified side M54.40 and Encounter for immunization Z23 [place] [address] [address] Jun, Dysfunction of left eustachian tube H69. 82 [facility] [address] [id number] [id number] Jun, Dental examination Z01.20 [place] [address] [address] Jun, Other chronic pain G89.29 [facility] [address] [facility] [id number] [place] [id number] Jun, Dental examination Z01.20 [place] [address] [address] Jun, [facility] [address] [address] Jun, Bronchitis J40 ; Dysfunction of left eus tachian tube H69.82 and BMI 45.0-49.9, adult Z68.42 [place] [address] [address] Jun, Lumbago with sciatica, unspecified side M54.40 [place] [address] [address] May, Type 2 diabetes mellitus with diabetic n europathy, without long-term current use of insulin E11.40 and Hypertension, benign I10 [place] [address] [address] May, Lumbago with sciatica, unspecified side M54.40 [facility] [address] [facility] [id number] [address] [place] [address] Apr, [place] [address] [address] Apr, Controlled type 2 diabetes mellitus with out complication, without long-term current use of insulin E11.9 ; Insect bite (nonvenomous), right ankle, initial encounter S90.561A ; Local infection of the skin and subcutaneous tissue, unspecified L08.9 ; Acute swimmer''s ear of left side H60.332 and BMI 45.0-49.9, adult Z68.42 [place] [address] [address] Apr, Lumbago with sciatica, unspecified side M54.40 [place] [address] [address] Mar, [place] [address] [address] Mar, Lumbago with sciatica, unspecified side M54.40 [place] [address] [address] Feb, Lumbago with sciatica, unspecified side M54.40 [place] [address] [address] Feb, BMI 45.0-49.9, adult Z68.42 and Obstruct jaida sleep apnea syndrome G47.33 [place] [address] [address] January, Lumbar neuritis M54.16 [place] [address] [address] January, Lumbago with sciatica, unspecified side M54.40 [place] [address] [address] Dec, Controlled type 2 diabetes mellitus with out complication, without long-term current use of insulin E11.9 ; Erectile dysfunction due to diseases classified elsewhere N52.1 and Mood disorder F39 [place] [address] [address] Dec, Lumbago with sciatica, unspecified side M54.40 [place] [address] [address] Dec, Obstructive sleep apnea syndrome G47.33 [place] [address] [address] Nov, Lumbago with sciatica, unspecified side M54.40 ; Hypertension, benign I10 and Mood disorder F39 [place] [address] [address] Nov, Other chronic pain G89.29 [place] [address] [address] Nov, Lumbago with sciatica, unspecified side M54.40 [facility] [address] [id number] Nov, Dental examination Z01.20 [facility] [address] [address] Oct, [facility] [address] [address] Oct, Lumbago with sciatica, unspecified side M54.40 [facility] [address] [address] Oct, Lumbago with sciatica, unspecified side M54.40 [facility] [address] [address] Oct, [facility] [address] [address] Oct, [facility] [address] [id number] Oct, Dental examination Z01.20 [facility] [address] [address] Oct, [facility] [address] [address] Oct, Pain in right knee M25.561 [facility] [address] [address] Sep, [facility] [address] [address] Sep, Other chronic pain G89.29 [facility] [address] [address] Sep, Lumbago with sciatica, unspecified side M54.40 [facility] [address] [facility] [place] [address] Sep, [facility] [address] [facility] [id number] [address] [place] [address] Sep, Viral URI J06.9 and BMI 45.0 -49.9, adult Z68.42 [facility] [address] [address] Aug, Foreign body hand S60.559A a nd BMI 45.0-49.9, adult Z68.42 [place] [address] [address] Aug, [place] [address] [address] Aug, Lumbago with sciatica, unspecified side M54.[address] [address] Aug, Vertigo R42 ; Dysfunction of both eustac hian tubes H69.83 ; Low back pain M54.5 and Other chronic pain G89.29 [facility] [address] [place] [id number] [place] [address] Aug, Dizziness R42 and Acute bila teral otitis media H66.[address] [address] Aug, Lumbago with sciatica, unspecified side M54.40 [facility] [id number] [place] [id number] Jul, Dental examination Z01.20 [place] [address] [address] Jul, [place] [address] [address] Jul, [address] [address] Jul, Dysfunction of both eustachian tubes H69 .83 [place] [address] [address] 07 Jul, 2017 Controlled type 2 diabetes mellitus with out complication, without long-term current use of insulin E11.9 [facility] [address] [address] Jul, Controlled type 2 diabetes mellitus with out complication, without long-term current use of insulin E11.9 [facility] [address] [id number] [address] [place] [address] Jul, Dizziness R42 and BMI 40.0-4 4.9, adult Z68.41 [facility] [address] [address] Jul, Controlled type 2 diabetes mellitus with out complication, without long-term current use of insulin E11.9 [facility] [address] [address] Jul, Lumbago with sciatica, unspecified side M54.40 [facility] [address] [id number] Jul, Dental examination Z01.20 [facility] [address] [address] Jun, [facility] [address] [id number] Jun, Dental examination Z01.20 [facility] [address] [address] Jun, Controlled type 2 diabetes mellitus with out complication, without long-term current use of insulin E11.9 [facility] [address] [address] Jun, Lumbago with sciatica, unspecified side M54.40 [facility] [address] [id number] May, Dental examination Z01.20 [facility] [address] [address] May, Controlled type 2 diabetes mellitus with out complication, without long-term current use of insulin E11.9 [facility] [address] [id number] May, Dental examination Z01.20 [facility] [address] [address] 18 May, 2017 Bronchitis J40 ; Dry mouth R68.2 ; Non m orbid obesity E66.9 and Controlled type 2 diabetes mellitus without complication, without long-term current use of insulin E11.9 [facility] [address] [address] 16 May, 2017 Encounter for immunization Z 23 [facility] [address] [address] 07 May, 2017 Lumbago with sciatica, unspecified side M54.40 [place] [address] [address] 05 May, 2017 [facility] [address] [id number] Apr, Dental examination Z01.20 [place] [address] [address] Apr, Lumbago with sciatica, unspecified side M54.40 [facility] [address] [address] Mar, Lumbago with sciatica, left side M54.42 [place] [address] [address] Mar, [place] [address] [address] Mar, Lumbar neuritis M54.16 [facility] [address] [address] Mar, [facility] [address] [id number] Mar, Dental examination Z01.20 [facility] [address] [address] Mar, MELE (obstructive sleep apnea) G47.33 ; N europathy involving both lower extremities G57.93 and Frequent headaches R51 [place] [address] [address] Mar, Lumbago with sciatica, unspecified side M54.40 [place] [address] [address] Feb, Lumbago with sciatica, unspecified side M54.40 and Controlled type 2 diabetes mellitus without complication, without long-term current use of insulin E11.9 [place] [address] [address] January, Hypertension, benign I10 and Bilateral l ow back pain with sciatica, sciatica laterality unspecified M54.40 [place] [address] [address] January, Hypertension, benign I10 ; Lumbago with sciatica, unspecified side M54.40 ; Other chronic pain G89.29 and Controlled type 2 diabetes mellitus without complication, without long-term current use of insulin E11.9 [place] [address] [address] January, Lumbar neuritis M54.16 [place] [address] [address] January, [place] [address] [address] Dec, Lumbago with sciatica, right side M54.41 and Lumbar neuritis M54.16 [place] [address] [address] Dec, Lumbar neuritis M54.16 [place] [address] [address] Dec, Lumbar neuritis M54.16 [place] [address] [address] Nov, Lumbar neuritis M54.16 ; Lumbago with sc iatica, right side M54.41 ; Controlled type 2 diabetes mellitus without complication, without long-term current use of insulin E11.9 and Rash and nonspecific skin eruption R21 [place] [address] [address] Nov, Lumbar neuritis M54.16 and Poison miroslava L2 3.7 [place] [address] [address] 16 Oct, 2016 Lumbar neuritis M54.16 ; Coughing R05 an d Mood disorder F39 [place] [address] [address] Sep, Lumbago with sciatica, right side M54.[address] [address] Sep, Adjustment disorder with disturbance of emotion F43.29 and Pain management R52 [address] [address] Sep, [place] [address] [address] Sep, [place] [address] [address] Sep, Controlled type 2 diabetes mellitus with out complication, without long-term current use of insulin E11.9 and Lumbago with sciatica, unspecified side M54.[address] [address] Aug, Controlled type 2 diabetes mellitus with out complication, without long-term current use of insulin E11.9 ; Pain in right knee M25.561 ; Pain in left knee M25.562 ; Other chronic pain G89.29 ; Lumbago with sciatica, right side M54.41 ; Neck pain M54.2 and Encounter for immunization Z23 [place] [address] [address] Jul, [address] [address] Jul, Controlled type 2 diabetes mellitus with out complication, without long-term current use of insulin E11.9 [facility] [address] [address] 17 Jul, 2016 [facility] [address] [address] Jul, [facility] [address] [address] Jul, Lumbago with sciatica, left side M54.42 ; Lumbago with sciatica, right side M54.41 and Other chronic pain G89.29 [place] [address] [address] Jul, [place] [address] [address] Jul, [place] [address] [address] Jun, [facility] [address] [address] Jun, Lumbago with sciatica, right side M54.41 and Other chronic pain G89.29 [facility] [address] [address] Jun, Cervicalgia M54.2 ; Lumbago with sciatic a, unspecified side M54.40 and Other chronic pain G89.29 [place] [address] [address] 15 May, 2016 Pain in right knee M25.561 ; Pain in lef t knee M25.562 and Other chronic pain G89.29 [facility] [address] [address] 14 May, 2016 [place] [address] [address] Apr, Other chronic pain G89.29 and Pain in ri ght knee M25.561 [facility] [address] [address] Apr, Pain in right knee M25.561 [place] [address] [address] Mar, [place] [address] [address] Mar, Mood disorder F39 and Controlled type 2 diabetes mellitus without complication, without long-term current use of insulin E11.9 [place] [address] [address] Mar, Pain in right knee M25.561 ; Pain in lef t knee M25.562 ; Other chronic pain G89.29 ; Obstructive sleep apnea syndrome G47.33 ; Mood disorder F39 and Controlled type 2 diabetes mellitus without complication, without long-term current use of insulin E11.9 [place] [address] [address] Mar, [facility] [address] [id number] Feb, Dental examination Z01.20 [place] [address] [address] Feb, [address] [address] Feb, Osteoarthritis of right knee, unspecifie d osteoarthritis type M17.9 [place] [address] [address] January, [facility] [address] [id number] January, Dental examination Z01.20 [place] [address] [address] January, [facility] [address] [id number] January, Dental examination Z01.20 and Caries K02 .[address] [address] Dec, Encounter for other preprocedural examin ation Z01.818 [facility] [id number] [place] [address] Dec, [facility] [address] [address] Dec, Knee pain M25.569 [facility] [address] [address] Dec, Pain in right knee M25.561 [facility] [address] [address] Dec, [facility] [address] [address] Dec, [facility] [address] [address] Dec, Encounter for immunization Z23 [facility] [address] [address] Dec, [facility] [address] [address] Dec, [facility] [address] [address] Nov, [facility] [address] [address] Nov, Hypertension, benign I10 ; Cervicalgia M 54.2 ; Pain in right knee M25.561 and Pain in left knee M25.562 [facility] [address] [address] Oct, [facility] [address] [address] Oct, [facility] [address] [address] Oct, Osteoarthritis of both knees M17.0 [facility] [address] [address] 08 Oct, 2015 [facility] [address] [address] 08 Oct, 2015 Low back pain M54.5 [place] [address] [address] Oct, Low back pain M54.5 ; Sciatica, unspecif ied side M54.30 ; Pain in right knee M25.561 ; Pain in left knee M25.562 ; Pain in right shoulder M25.511 and Pain in left shoulder M25.512 [place] [address] [address] Oct, [address] [address] Sep, Pain in right hip M25.[address] [address] Sep, Acute upper respiratory infection, unspe cified J06.[address] [address] Aug, Acute upper respiratory infection, unspe cified J06.9 and Other viral agents as the cause of diseases classified elsewhere B97.[address] [address] Jul, Arthritis M19.[address] [address] Jun, Arthritis M19.90 ; Pain in right hip M25 .551 ; Pain in left hip M25.552 ; Bilateral low back pain with sciatica, sciatica laterality unspecified M54.40 ; Neck pain M54.2 ; Upper back pain M54.9 and Knee pain, unspecified laterality M25.[address] [address] May, Osteoarthritis of both knees 715.[address] [address] May, Rash 782.1 [place] [address] [place] [address] Apr, Lumbar strain 847.2 [facility] [address] [address] Apr, Rash 782.1 [facility] [address] [address] Mar, Rash 782.1 [facility] [address] [address] Feb, Rash 782.1 ; Hemorrhoids 455.6 and Const ipation 564.00 [facility] [address] [address] Feb, Osteoarthritis of both knees 715.96 [facility] [address] [address] January, [facility] [address] [address] Dec, [facility] [address] [address] Dec, [facility] [address] [address] Dec, [facility] [address] [address] Nov, [facility] [address] [address] Nov, [facility] [address] [address] Nov, [facility] [address] [address] Nov, [facility] [address] [address] Nov, [facility] [address] [address] Nov, [facility] [address] [address] Oct, [facility] [place] [facility] [address] [id number] [place] [address] Oct, [facility] [place] [facility] [address] [id number] [place] [address] Oct, [facility] [place] [facility] [address] [id number] [place] [address] Oct, [facility] [place] [facility] [address] [id number] [place] [address] Oct, [facility] [place] [facility] [address] [id number] [place] [address] Oct, [facility] [place] [facility] [address] [id number] [place] [address] Oct, [facility] [place] [facility] [address] [id number] [place] [address] Oct, [facility] [place] [facility] [address] [id number] [place] [address] Oct, [facility] [place] [facility] [address] [id number] [place] [address] Oct, [facility] [place] [facility] [address] [id number] [place] [address] Oct, [facility] [place] [facility] [address] [id number] [place] [address] Sep, [facility] [place] [facility] [address] [id number] [place] [address] Sep, [facility] [place] [facility] [address] [id number] [place] [address] Sep, [facility] [place] [facility] [address] [id number] [place] [address] Sep, [facility] [place] [facility] [address] [id number] [place] [address] Sep, [facility] [place] [facility] [address] [id number] [place] [address] Sep, [facility] [place] [facility] [address] [id number] [place] [address] Aug, [facility] [place] [facility] [address] [id number] [place] [address] Aug, [facility] [place] [facility] [address] [id number] [place] [address] Aug, [facility] [place] [facility] [address] [id number] [place] [address] Aug, [facility] [place] [facility] [address] [id number] [place] [address] Aug, [facility] [place] [facility] [address] [id number] [place] [address] Aug, [facility] [place] [facility] [address] [id number] [place] [address] Aug, [facility] [place] [facility] [address] [id number] [place] [address] Aug, [facility] [place] [facility] [address] [id number] [place] [address] Aug, [facility] [place] [facility] [address] [id number] [place] [address] Aug, [facility] [place] [facility] [address] [id number] [place] [address] Jul, [facility] [place] [facility] [address] [id number] [place] [address] Jul, [facility] [place] [facility] [address] [id number] [place] [address] Jul, [facility] [place] [facility] [address] [id number] [place] [address] Jul, [facility] [place] [facility] [address] [id number] [place] [address] Jun, [facility] [place] [facility] [address] [id number] [place] [address] Jun, [facility] [place] [facility] [address] [id number] [place] [address] Jun, [facility] [place] [facility] [address] [facility] [id number] [place] [address] Jun, [facility] [place] [facility] [address] [facility] [id number] [place] [address] Jun, [facility] [place] [facility] [address] [id number] [place] [address] Jun, [facility] [place] [facility] [address] [facility] [id number] [place] [address] Jun, [facility] [place] [facility] [address] [facility] [id number] [place] [address] Jun, [facility] [place] [facility] [address] [id number] [place] [address] May, [facility] [place] [facility] [address] [id number] [place] [address] 24 May, 2014 [facility] [place] [facility] [address] [id number] [place] [address] 19 May, 2013 [facility] [place] [facility] [address] [facility] [id number] [place] [address] 19 May, 2014 [facility] [place] [facility] [address] [id number] [place] [address] 15 May, 2014 [facility] [place] [facility] [address] [id number] [place] [address] 15 May, 2014 [facility] [place] [facility] [address] [id number] [place] [address] 15 May, 2013 [facility] [place] [facility] [address] [facility] [id number] [place] [address] 15 May, 2013 [facility] [place] [facility] [address] [id number] [place] [address] Apr, [facility] [place] [facility] [address] [facility] [id number] [place] [address] Apr, [facility] [place] [facility] [address] [id number] [place] [address] Apr, [facility] [place] [facility] [address] [facility] [id number] [place] [address] Apr, [facility] [place] [facility] [address] [facility] [id number] [place] [address] Apr, [facility] [place] [facility] [address] [facility] [id number] [place] [address] Apr, [facility] [place] [facility] [address] [id number] [place] [address] Apr, [facility] [place] [facility] [address] [id number] [place] [address] Apr, [facility] [place] [facility] [address] [id number] [place] [address] Apr, [facility] [place] [facility] [address] [id number] [place] [address] Apr, [facility] [place] [facility] [address] [id number] [place] [address] Apr, [facility] [place] [facility] [address] [id number] [place] [address] Apr, [facility] [place] [facility] [address] [id number] [place] [address] Mar, [facility] [place] [facility] [address] [id number] [place] [address] Mar, [facility] [place] [facility] [address] [id number] [place] [address] Mar, [facility] [place] [facility] [address] [id number] [place] [address] Mar, [facility] [place] [facility] [address] [id number] [place] [address] Mar, [facility] [place] [facility] [address] [id number] [place] [address] Mar, [facility] [place] [facility] [address] [id number] [place] [address] Feb, [facility] [place] [facility] [address] [id number] [place] [address] Feb, [facility] [place] [facility] [address] [facility] [id number] [place] [address] Feb, [facility] [place] [facility] [address] [id number] [place] [address] Feb, [facility] [place] [facility] [address] [id number] [place] [address] Feb, [facility] [place] [facility] [address] [id number] [place] [address] Feb, [facility] [place] [facility] [address] [facility] [id number] [place] [address] Feb, [facility] [place] [facility] [address] [id number] [place] [address] Feb, [facility] [place] [facility] [address] [id number] [place] [address] Feb, [facility] [place] [facility] [address] [id number] [place] [address] Feb, [facility] [place] [facility] [address] [id number] [place] [address] Feb, [facility] [place] [facility] [address] [id number] [place] [address] Feb, [facility] [place] [facility] [address] [id number] [place] [address] Feb, [facility] [place] [facility] [address] [id number] [place] [address] Feb, [facility] [place] [facility] [address] [id number] [place] [address] January, [facility] [place] [facility] [address] [id number] [place] [address] January, [facility] [place] [facility] [address] [id number] [place] [address] January, [facility] [place] [facility] [address] [id number] [place] [address] January, [facility] [place] [facility] [address] [id number] [place] [address] January, [facility] [place] [facility] [address] [facility] [id number] [facility] [address] January, [facility] [place] [facility] [address] [facility] [id number] [facility] [place] [address] Dec, [facility] [place] [facility] [address] [id number] [place] [address] Dec, [facility] [place] [facility] [address] [id number] [place] [address] Dec, [facility] [place] [facility] [address] [facility] [id number] [place] [address] Dec, [facility] [place] [facility] [address] [id number] [place] [address] Dec, [facility] [place] [facility] [address] [id number] [facility] [address] Dec, [facility] [place] [facility] [address] [id number] [facility] [address] Dec, [facility] [place] [facility] [address] [facility] [id number] [facility] [address] Dec, [facility] [place] [facility] [address] [id number] [facility] [address] Nov, [facility] [place] [facility] [address] [id number] [place] [address] Nov, [facility] [place] [facility] [address] [id number] [facility] [address] Nov, [facility] [place] [facility] [address] [facility] [id number] [facility] [address] Nov, [facility] [place] [facility] [address] [id number] [place] [address] Nov, [facility] [place] [facility] [address] [id number] [place] [address] Nov, [facility] [place] [facility] [address] [id number] [facility] [address] Nov, [facility] [place] [facility] [address] [id number] [place] [address] Nov, [facility] [place] [facility] [address] [facility] [id number] [place] [address] Oct, [facility] [place] [facility] [address] [id number] [place] [address] Oct, [facility] [place] [facility] [address] [id number] [place] [address] Oct, [facility] [place] [facility] [address] [id number] [place] [address] Oct, [facility] [place] [facility] [address] [id number] [place] [address] Oct, [facility] [place] [facility] [address] [id number] [place] [address] Oct, [facility] [place] [facility] [address] [id number] [place] [address] Oct, [facility] [place] [facility] [address] [id number] [place] [address] Oct, [facility] [place] [facility] [address] [id number] [place] [address] Oct, [facility] [place] [facility] [address] [id number] [place] [address] Oct, [facility] [place] [facility] [address] [id number] [place] [address] Sep, [facility] [place] [facility] [address] [id number] [place] [address] Sep, [facility] [place] [facility] [address] [id number] [place] [address] Sep, [facility] [place] [facility] [address] [id number] [place] [address] Sep, [facility] [place] [facility] [address] [id number] [place] [address] Sep, [facility] [place] [facility] [address] [id number] [place] [address] Sep, [facility] [place] [facility] [address] [id number] [place] [address] Aug, [facility] [place] [facility] [address] [id number] [place] [address] Aug, [facility] [place] [facility] [address] [id number] [place] [address] Aug, [facility] [place] [facility] [address] [id number] [place] [address] Aug, [facility] [place] [facility] [address] [id number] [place] [address] Aug, [facility] [place] [facility] [address] [id number] [place] [address] Aug, [facility] [place] [facility] [address] [id number] [place] [address] Aug, [facility] [place] [facility] [address] [id number] [place] [address] Aug, [facility] [place] [facility] [address] [id number] [place] [address] Jul, [facility] [place] [facility] [address] [id number] [place] [address] Jul, [facility] [place] [facility] [address] [id number] [place] [address] Jul, [facility] [place] [facility] [address] [id number] [place] [address] Jul, [facility] [place] [facility] [address] [id number] [place] [address] Jul, [facility] [place] [facility] [address] [id number] [place] [address] Jul, [facility] [place] [facility] [address] [id number] [place] [address] Jun, [facility] [place] [facility] [address] [id number] [place] [address] Jun, [facility] [place] [facility] [address] [facility] [id number] [place] [address] Jun, [facility] [place] [facility] [address] [facility] [id number] [place] [address] May, [facility] [place] [facility] [address] [facility] [id number] [place] [address] May, [facility] [place] [facility] [address] [id number] [place] [address] May, [facility] [place] [facility] [address] [id number] [place] [address] Apr, [facility] [place] [facility] [address] [id number] [place] [address] Apr, [facility] [place] [facility] [address] [id number] [place] [address] Apr, [facility] [place] [facility] [address] [id number] [place] [address] Apr, [facility] [place] [facility] [address] [id number] [place] [address] Mar, [facility] [place] [facility] [address] [id number] [place] [address] Mar, [facility] [place] [facility] [address] [id number] [place] [address] Mar, [facility] [place] [facility] [address] [id number] [place] [address] Mar, [facility] [place] [facility] [address] [id number] [place] [address] Feb, [facility] [place] [facility] [address] [id number] [place] [address] Feb, [facility] [place] [facility] [address] [id number] [place] [address] Feb, [facility] [place] [facility] [address] [id number] [place] [address] Feb, [facility] [place] [facility] [address] [id number] [place] [address] January, [facility] [address] [facility] [id number] [place] [address] January, [facility] [address] [id number] [place] [address] January, [facility] [place] [facility] [address] [id number] [place] [address] Nov, [facility] [place] [facility] [address] [id number] [place] [address] Nov, [facility] [place] [facility] [address] [facility] [id number] [place] [address] Oct, [facility] [place] [facility] [address] [id number] [place] [address] Oct, [facility] [place] [facility] [address] [id number] [place] [address] Oct, [facility] [place] [facility] [address] [id number] [place] [address] Oct, [facility] [address] [id number] [place] [address] Sep, [facility] [place] [facility] [address] [id number] [place] [address] Sep, [facility] [place] [facility] [address] [id number] [place] [address] Sep, [facility] [place] [facility] [address] [id number] [place] [address] Aug, [facility] [place] [facility] [address] [id number] [place] [address] Aug, [facility] [place] [facility] [address] [id number] [place] [address] Aug, [facility] [place] [facility] [address] [id number] [place] [address] Aug, [facility] [place] [facility] [address] [id number] [place] [address] Aug, [facility] [place] [facility] [address] [id number] [place] [address] Aug, [facility] [place] [facility] [address] [id number] [place] [address] Jul, [facility] [place] [facility] [address] [id number] [place] [address] Jul, [facility] [place] [facility] [address] [id number] [place] [address] Jun, [facility] [place] [facility] [address] [id number] [place] [address] Jun, [facility] [place] [facility] [address] [id number] [place] [address] Jun, [facility] [place] [facility] [address] [id number] [place] [address] Apr, [facility] [place] [facility] [address] [id number] [place] [address] Apr, [facility] [place] [facility] [address] [id number] [place] [address] Mar, [facility] [place] [facility] [address] [id number] [place] [address] Mar, [facility] [place] [facility] [address] [id number] [place] [address] Mar, [facility] [place] [facility] [address] [id number] [place] [address] Mar, [facility] [place] [facility] [address] [id number] [place] [address] Feb, [facility] [place] [facility] [address] [id number] [place] [address] Feb, [facility] [place] [facility] [address] [id number] [place] [address] Feb, [facility] [place] [facility] [address] [id number] [place] [address] January, [facility] [place] [facility] [address] [id number] [place] [address] January, [facility] [place] [facility] [address] [id number] [place] [address] January, [facility] [place] [facility] [address] [id number] [place] [address] January, [facility] [place] [facility] [address] [id number] [place] [address] Dec, [facility] [place] [facility] [id number] [place] [address] Dec, [facility] [place] [facility] [address] [id number] [place] [address] Nov, [facility] [id number] [place] [address] Nov, [facility] [id number] [place] [address] Oct, [facility] [id number] [place] [address] Oct, [facility] [id number] [place] [address] Sep, [facility] [id number] [place] [address] Sep, [facility] [id number] [place] [address] Sep, [facility] [id number] [place] [address] Sep, [facility] [id number] [place] [address] Aug, [facility] [id number] [place] [address] Aug, [facility] [id number] [place] [address] Aug, [facility] [id number] [place] [address] Jul, [facility] [id number] [place] [address] Aug, [facility] [id number] [place] [address] Aug, [facility] [id number] [place] [address] Aug, [facility] [id number] [place] [address] Aug, [facility] [id number] [place] [address] Jul, [facility] [id number] [place] [address] Jul, [facility] [id number] [place] [address] Jul, [facility] [id number] [place] [address] Jun, [facility] [id number] [place] [address] Jun, [facility] [id number] [place] [address] Jun, [facility] [id number] [place] [address] Apr, [facility] [id number] [place] [address] Mar, IMMUNIZATIONS No Known Immunizations SOCIAL HISTORY [...]
--- OUTSIDE RECORDS SUMMARY | 2020-03-18 15:15 | XMS REPORT ---
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 Role Phone REYNA WAYNE Unavailable PROBLEMS Type Condition ICD9-CM Code FZT84-JE Code Onset Dates Condition S tatus SNOMED Code Problem Hypertension, benign I10 Active 81071153 Problem Other chronic pain G89.29 Active 8 8063067 Problem Lumbago with sciatica, unspecified side M54.40 Active 916982165 Problem Controlled type 2 diabetes m ellitus without complication, without long- term current use of insulin E11.9 Active 268409526 Problem Lumbago with sciatica, right side M54.41 Active 615037215 Problem Adjustment disorder with disturbance of emotion F4 3.29 Active 82145521 Problem MELE (obstructive sleep apnea) G47.33 Active 53623943 Problem Non morbid obesity E66.9 Active 4 11676118 Problem Hammer toe of left foot M20.42 Active 466470682 Problem Mood disorder F39 Active 608095 05 Problem Deformity of left foot M21.962 Active 079910190 Problem Lumbago with sciatica, left side M54.42 Active 627028216 Problem Erectile dysfunction due to diseases classified elsewhere N52.1 Active 648060660 Problem Obstructive sleep apnea syndrome G47.33 Active 95724876 Problem Type 2 diabetes mellitus wit h diabetic neuropathy, without long-term current use of insulin E11.40 Active 57285 006 Problem Essential hypertension I10 Active 83823335 ALLERGIES No Information ENCOUNTERS Encounter Location Date Diagnosis [facility] [address] [id number] [place] [address] Sep, [facility] [address] [facility] [place] [address] Aug, [facility] [address] [facility] [place] [address] Jul, Lumbago with sciatica, unspecified side M54.40 [facility] [address] [address] Jun, Lumbago with sciatica, unspecified side M54.40 [facility] [address] [address] Jun, URI, acute J06.9 [facility] [address] [address] May, Lumbago with sciatica, unspecified side M54.40 [place] [address] [address] May, [place] [address] [address] May, Type 2 diabetes mellitus with diabetic n europathy, without long-term current use of insulin E11.40 and Hammer toe of left foot M20.42 [place] [address] [address] May, [place] [address] [address] May, [place] [address] [address] May, [place] [address] [address] Apr, Lumbago with sciatica, unspecified side M54.40 [place] [address] [address] Apr, [facility] [address] [address] Apr, [address] [place] [address] Apr, Hammer toe of left foot M20. 42 ; Chest pain R07.9 ; Preoperative examination Z01.818 and Morbid obesity E66.01 [place] [address] [address] Apr, Morbid obesity E66.01 ; Bronchitis J40 a nd High risk medications (not anticoagulants) long-term use Z79.899 [place] [address] [address] Apr, Lumbago with sciatica, unspecified side M54.40 [place] [address] [address] Apr, [place] [address] [address] Mar, Lumbar neuritis M54.16 and Morbid obesit y E66.01 [place] [address] [address] Mar, [place] [address] [address] Mar, [place] [address] [address] Mar, Lumbago with sciatica, unspecified side M54.40 [place] [address] [address] Mar, Morbid obesity E66.01 ; Coughing R05 ; 2 + pitting edema R60.9 and Controlled type 2 diabetes mellitus without complication, without long-term current use of insulin E11.9 [place] [address] [address] Feb, [place] [address] [address] Feb, Lumbago with sciatica, unspecified side M54.40 [place] [address] [address] Feb, [place] [address] [address] Feb, Controlled type 2 diabetes mellitus with out complication, without long-term current use of insulin E11.9 and Morbid obesity E66.01 [place] [address] [address] January, Deformity of left foot M21.962 [facility] [address] [address] January, [facility] [address] [address] January, Lumbago with sciatica, unspecified side M54.40 [place] [address] [address] January, [place] [address] [address] January, Lumbago with sciatica, unspecified side M54.40 [place] [address] [address] January, [place] [address] [address] January, Acute right-sided thoracic back pain M54 .6 [place] [address] [address] January, Acute right-sided thoracic back pain M54 .6 [place] [address] [address] January, Chest pain, unspecified type R07.9 ; Mor bid obesity E66.01 and Scabies B86 [place] [address] [address] Dec, Lumbago with sciatica, unspecified side M54.40 [place] [address] [address] Dec, Toenail fungus B35.1 [place] [address] [address] Dec, Toenail fungus B35.1 [place] [address] [address] Dec, Acute right-sided thoracic back pain M54 .6 [place] [address] [address] Dec, Lumbago with sciatica, unspecified side M54.40 [facility] [address] [address] Nov, Hammer toe of left foot M20.42 ; Deformi ty of left foot M21.962 and Type 2 diabetes mellitus with diabetic neuropathy, without long-term current use of insulin E11.40 [facility] [address] [facility] [id number] [address] [place] [address] Nov, Acute right-sided thoracic b ack pain M54.6 ; Morbid obesity E66.01 and Rt flank pain R10.9 [place] [address] [address] Nov, Lumbago with sciatica, unspecified side M54.40 [place] [address] [address] Oct, Lumbago with sciatica, unspecified side M54.40 [place] [address] [address] Sep, Lumbago with sciatica, unspecified side M54.40 [place] [address] [address] Sep, [place] [address] [address] Sep, BMI 40.0-44.9, adult Z68.41 ; Lumbago wi th sciatica, left side M54.42 ; Lumbago with sciatica, right side M54.41 and Other chronic pain G89.29 [place] [address] [address] Aug, Lumbago with sciatica, unspecified side M54.40 [place] [address] [address] Aug, Type 2 diabetes mellitus with diabetic n europathy, without long-term current use of insulin E11.40 ; Hammer toe of left foot M20.42 ; Hypertension, benign I10 and Frequent headaches R51 [place] [address] [address] Jul, Lumbago with sciatica, unspecified side M54.40 [place] [address] [place] [address] Jul, [place] [address] [place] [address] Jul, Essential hypertension I10 and Controlle d type 2 diabetes mellitus without complication, without long-term current use of insulin E11.9 [place] [address] [address] Jul, Essential hypertension I10 ; Controlled type 2 diabetes mellitus without complication, without long-term current use of insulin E11.9 and BMI 40.0-44.9, adult Z68.41 [place] [address] [address] Jul, Dysfunction of left eustachian tube H69. 82 [place] [address] [address] Jul, Lumbago with sciatica, unspecified side M54.40 [facility] [address] [place] [id number] [place] [id number] Jun, Dental examination Z01.20 [place] [address] [address] Jun, Lumbago with sciatica, unspecified side M54.40 and Encounter for immunization Z23 [place] [address] [address] Jun, Dysfunction of left eustachian tube H69. [address] [facility] [address] [id number] [id number] Jun, Dental examination Z01.20 [facility] [address] [place] [id number] [place] [address] Jun, Other chronic pain G89.29 [facility] [address] [facility] [place] [id number] Jun, Dental examination Z01.20 [facility] [address] [address] Jun, [facility] [address] [address] Jun, Bronchitis J40 ; Dysfunction of left eus tachian tube H69.82 and BMI 45.0-49.9, adult Z68.42 [place] [address] [address] Jun, Lumbago with sciatica, unspecified side M54.40 [place] [address] [address] May, Type 2 diabetes mellitus with diabetic n europathy, without long-term current use of insulin E11.40 and Hypertension, benign I10 [place] [address] [address] May, Lumbago with sciatica, unspecified side M54.40 [facility] [address] [facility] [id number] [address] [address] Apr, [facility] [address] [address] Apr, Controlled type 2 diabetes mellitus with out complication, without long-term current use of insulin E11.9 ; Insect bite (nonvenomous), right ankle, initial encounter S90.561A ; Local infection of the skin and subcutaneous tissue, unspecified L08.9 ; Acute swimmer''s ear of left side H60.332 and BMI 45.0-49.9, adult Z68.42 [place] [address] [address] Apr, Lumbago with sciatica, unspecified side M54.40 [place] [address] [address] Mar, [place] [address] [address] Mar, Lumbago with sciatica, unspecified side M54.40 [place] [address] [address] Feb, Lumbago with sciatica, unspecified side M54.40 [place] [address] [address] Feb, BMI 45.0-49.9, adult Z68.42 and Obstruct jaida sleep apnea syndrome G47.33 [place] [address] [address] January, Lumbar neuritis M54.[address] [address] January, Lumbago with sciatica, unspecified side M54.40 [place] [address] [address] Dec, Controlled type 2 diabetes mellitus with out complication, without long-term current use of insulin E11.9 ; Erectile dysfunction due to diseases classified elsewhere N52.1 and Mood disorder F39 [place] [address] [address] Dec, Lumbago with sciatica, unspecified side M54.40 [place] [address] [address] Dec, Obstructive sleep apnea syndrome G47.[address] [address] Nov, Lumbago with sciatica, unspecified side M54.40 ; Hypertension, benign I10 and Mood disorder F39 [place] [address] [address] Nov, Other chronic pain G89.29 [place] [address] [address] Nov, Lumbago with sciatica, unspecified side M54.40 [facility] [address] [id number] Nov, Dental examination Z01.20 [facility] [address] [address] Oct, [facility] [address] [place] [id number] Oct, Lumbago with sciatica, unspecified side M54.40 [facility] [address] [address] Oct, Lumbago with sciatica, unspecified side M54.40 [facility] [address] [address] Oct, [facility] [address] [address] Oct, [facility] [address] [id number] Oct, Dental examination Z01.20 [facility] [address] [address] Oct, [facility] [address] [address] Oct, Pain in right knee M25.561 [facility] [address] [address] Sep, [facility] [address] [address] Sep, Other chronic pain G89.29 [facility] [address] [address] Sep, Lumbago with sciatica, unspecified side M54.40 [facility] [address] [address] Sep, [facility] [address] [place] [id number] [place] [address] Sep, Viral URI J06.9 and BMI 45.0 -49.9, adult Z68.42 [facility] IN [facility] [address] [place] [id number] [place] [address] Aug, Foreign body hand S60.559A a nd BMI 45.0-49.9, adult Z68.42 [place] [address] [address] Aug, [place] [address] [address] Aug, Lumbago with sciatica, unspecified side M54.40 [place] [address] [address] Aug, Vertigo R42 ; Dysfunction of both eustac hian tubes H69.83 ; Low back pain M54.5 and Other chronic pain G89.29 [facility] IN [facility] [address] [place] [id number] [place] [address] Aug, Dizziness R42 and Acute bila teral otitis media H66.93 [place] [address] [address] Aug, Lumbago with sciatica, unspecified side M54.40 [facility] [address] [facility] [place] [id number] Jul, Dental examination Z01.20 [place] [address] [address] Jul, [place] [address] [address] Jul, [place] [address] [address] Jul, Dysfunction of both eustachian tubes H69 .83 [place] [address] [address] Jul, Controlled type 2 diabetes mellitus with out complication, without long-term current use of insulin E11.9 [facility] [address] [address] Jul, Controlled type 2 diabetes mellitus with out complication, without long-term current use of insulin E11.9 [facility] IN [facility] [address] [facility] [id number] [address] [address] Jul, Dizziness R42 and BMI 40.0-4 4.9, adult Z68.41 [facility] [address] [address] Jul, Controlled type 2 diabetes mellitus with out complication, without long-term current use of insulin E11.9 [place] [address] [address] Jul, Lumbago with sciatica, unspecified side M54.40 [facility] [address] [id number] Jul, Dental examination Z01.20 [facility] [address] [address] Jun, [facility] [address] [id number] Jun, Dental examination Z01.20 [place] [address] [address] Jun, Controlled type 2 diabetes mellitus with out complication, without long-term current use of insulin E11.9 [facility] [address] [address] Jun, Lumbago with sciatica, unspecified side M54.40 [facility] [address] [id number] May, Dental examination Z01.20 [facility] [address] [address] May, Controlled type 2 diabetes mellitus with out complication, without long-term current use of insulin E11.9 [facility] [address] [id number] May, Dental examination Z01.20 [facility] [address] [address] 18 May, 2017 Bronchitis J40 ; Dry mouth R68.2 ; Non m orbid obesity E66.9 and Controlled type 2 diabetes mellitus without complication, without long-term current use of insulin E11.9 [facility] [address] [address] 16 May, 2017 Encounter for immunization Z 23 [place] [address] [address] 07 May, 2017 Lumbago with sciatica, unspecified side M54.40 [place] [address] [address] 05 May, 2017 [facility] [address] [id number] Apr, Dental examination Z01.20 [place] [address] [address] Apr, Lumbago with sciatica, unspecified side M54.40 [facility] [address] [address] Mar, Lumbago with sciatica, left side M54.42 [place] [address] [address] Mar, [place] [address] [address] Mar, Lumbar neuritis M54.16 [facility] [address] [address] Mar, [facility] [address] [id number] Mar, Dental examination Z01.20 [place] [address] [address] Mar, MELE (obstructive sleep apnea) G47.33 ; N europathy involving both lower extremities G57.93 and Frequent headaches R51 [place] [address] [address] Mar, Lumbago with sciatica, unspecified side M54.40 [place] [address] [address] Feb, Lumbago with sciatica, unspecified side M54.40 and Controlled type 2 diabetes mellitus without complication, without long-term current use of insulin E11.9 [place] [address] [address] 16 Jan, 2017 Hypertension, benign I10 and Bilateral l ow back pain with sciatica, sciatica laterality unspecified M54.40 [place] [address] [address] January, Hypertension, benign I10 ; Lumbago with sciatica, unspecified side M54.40 ; Other chronic pain G89.29 and Controlled type 2 diabetes mellitus without complication, without long-term current use of insulin E11.9 [place] [address] [address] January, Lumbar neuritis M54.16 [place] [address] [address] January, [place] [address] [address] Dec, Lumbago with sciatica, right side M54.41 and Lumbar neuritis M54.16 [place] [address] [address] Dec, Lumbar neuritis M54.16 [place] [address] [address] Dec, Lumbar neuritis M54.16 [place] [address] [address] Nov, Lumbar neuritis M54.16 ; Lumbago with sc iatica, right side M54.41 ; Controlled type 2 diabetes mellitus without complication, without long-term current use of insulin E11.9 and Rash and nonspecific skin eruption R21 [place] [address] [address] 09 Nov, 2016 Lumbar neuritis M54.16 and Poison miroslava L2 3.[address] [address] Oct, Lumbar neuritis M54.16 ; Coughing R05 an d Mood disorder F39 [address] [address] Sep, Lumbago with sciatica, right side M54.[address] [address] Sep, Adjustment disorder with disturbance of emotion F43.29 and Pain management R52 [address] [address] Sep, [place] [address] [address] Sep, [address] [address] Sep, Controlled type 2 diabetes mellitus with out complication, without long-term current use of insulin E11.9 and Lumbago with sciatica, unspecified side M54.[address] [address] Aug, Controlled type 2 diabetes mellitus with out complication, without long-term current use of insulin E11.9 ; Pain in right knee M25.561 ; Pain in left knee M25.562 ; Other chronic pain G89.29 ; Lumbago with sciatica, right side M54.41 ; Neck pain M54.2 and Encounter for immunization Z23 [place] [address] [address] Jul, [address] [address] Jul, Controlled type 2 diabetes mellitus with out complication, without long-term current use of insulin E11.9 [place] [address] [address] Jul, [place] [address] [address] Jul, [place] [address] [address] Jul, Lumbago with sciatica, left side M54.42 ; Lumbago with sciatica, right side M54.41 and Other chronic pain G89.29 [place] [address] [address] Jul, [place] [address] [address] Jul, [place] [address] [address] Jun, [place] [address] [address] Jun, Lumbago with sciatica, right side M54.41 and Other chronic pain G89.29 [place] [address] [address] Jun, Cervicalgia M54.2 ; Lumbago with sciatic a, unspecified side M54.40 and Other chronic pain G89.29 [place] [address] [address] 15 May, 2016 Pain in right knee M25.561 ; Pain in lef t knee M25.562 and Other chronic pain G89.29 [place] [address] [address] 14 May, 2016 [place] [address] [address] 05 Apr, 2016 Other chronic pain G89.29 and Pain in ri ght knee M25.561 [place] [address] [address] Apr, Pain in right knee M25.561 [place] [address] [address] Mar, [place] [address] [address] Mar, Mood disorder F39 and Controlled type 2 diabetes mellitus without complication, without long-term current use of insulin E11.9 [place] [address] [address] Mar, Pain in right knee M25.561 ; Pain in lef t knee M25.562 ; Other chronic pain G89.29 ; Obstructive sleep apnea syndrome G47.33 ; Mood disorder F39 and Controlled type 2 diabetes mellitus without complication, without long-term current use of insulin E11.9 [place] [address] [address] Mar, [facility] [address] [id number] Feb, Dental examination Z01.20 [place] [address] [address] Feb, [place] [address] [address] Feb, Osteoarthritis of right knee, unspecifie d osteoarthritis type M17.9 [place] [address] [address] January, [facility] [address] [id number] January, Dental examination Z01.20 [place] [address] [address] January, [facility] [address] [id number] January, Dental examination Z01.20 and Caries K02 .9 [place] [address] [address] Dec, Encounter for other preprocedural examin ation Z01.818 [facility] [address] [address] Dec, [facility] [address] [address] Dec, Knee pain M25.569 [facility] [address] [address] Dec, Pain in right knee M25.561 [facility] [address] [address] Dec, [facility] [address] [address] Dec, [facility] [address] [address] Dec, Encounter for immunization Z23 [facility] [address] [address] Dec, [facility] [address] [address] Dec, [facility] [address] [address] Nov, [facility] [address] [address] Nov, Hypertension, benign I10 ; Cervicalgia M 54.2 ; Pain in right knee M25.561 and Pain in left knee M25.562 [facility] [address] [address] Oct, [facility] [address] [address] Oct, [facility] [address] [address] 11 Oct, 2015 Osteoarthritis of both knees M17.0 [facility] [address] [address] Oct, [place] [address] [address] Oct, Low back pain M54.5 [place] [address] [address] Oct, Low back pain M54.5 ; Sciatica, unspecif ied side M54.30 ; Pain in right knee M25.561 ; Pain in left knee M25.562 ; Pain in right shoulder M25.511 and Pain in left shoulder M25.[address] [address] Oct, [address] [address] Sep, Pain in right hip M25.[address] [address] Sep, Acute upper respiratory infection, unspe cified J06.[address] [address] Aug, Acute upper respiratory infection, unspe cified J06.9 and Other viral agents as the cause of diseases classified elsewhere B97.[address] [address] Jul, Arthritis M19.[address] [address] Jun, Arthritis M19.90 ; Pain in right hip M25 .551 ; Pain in left hip M25.552 ; Bilateral low back pain with sciatica, sciatica laterality unspecified M54.40 ; Neck pain M54.2 ; Upper back pain M54.9 and Knee pain, unspecified laterality M25.[address] [address] May, Osteoarthritis of both knees 715.[address] [address] May, Rash 782.1 [facility] [address] [address] Apr, Lumbar strain 847.2 [facility] [address] [address] Apr, Rash 782.1 [facility] [address] [address] Mar, Rash 782.1 [facility] [address] [address] Feb, Rash 782.1 ; Hemorrhoids 455.6 and Const ipation 564.00 [facility] [address] [address] Feb, Osteoarthritis of both knees 715.96 [facility] [address] [address] January, [facility] [address] [address] Dec, [facility] [address] [address] Dec, [facility] [address] [address] Dec, [facility] [address] [address] Nov, [facility] [address] [address] Nov, [facility] [address] [address] Nov, [facility] [address] [address] Nov, [facility] [address] [address] Nov, [facility] [address] [address] Nov, [facility] [address] [id number] [place] [address] Oct, [facility] [address] [id number] [place] [address] Oct, [facility] [address] [id number] [place] [address] Oct, [facility] [address] [id number] [place] [address] Oct, [facility] [address] [id number] [place] [address] Oct, [facility] [address] [id number] [place] [address] Oct, [facility] [address] [id number] [place] [address] Oct, [facility] [address] [id number] [place] [address] Oct, [facility] [address] [id number] [place] [address] Oct, [facility] [address] [id number] [place] [address] Oct, [facility] [address] [id number] [place] [address] Oct, [facility] [address] [id number] [place] [address] Sep, [facility] [address] [id number] [place] [address] Sep, [facility] [address] [id number] [place] [address] Sep, [facility] [address] [id number] [place] [address] Sep, [facility] [address] [id number] [place] [address] Sep, [facility] [address] [id number] [place] [address] Sep, [facility] [address] [id number] [place] [address] Aug, [facility] [address] [id number] [place] [address] Aug, [facility] [address] [id number] [place] [address] Aug, [facility] [address] [id number] [place] [address] Aug, [facility] [address] [id number] [place] [address] Aug, [facility] [address] [id number] [place] [address] Aug, [facility] [address] [id number] [place] [address] Aug, [facility] [address] [id number] [place] [address] Aug, [facility] [address] [id number] [place] [address] Aug, [facility] [address] [id number] [place] [address] Aug, [facility] [address] [id number] [place] [address] Jul, [facility] [address] [id number] [place] [address] Jul, [facility] [address] [id number] [place] [address] Jul, [facility] [id number] [place] [address] Jul, [facility] [address] [id number] [place] [address] Jun, [facility] [address] [id number] [place] [address] Jun, [facility] [address] [facility] [id number] [place] [address] Jun, [facility] [address] [facility] [id number] [place] [address] Jun, [facility] [address] [id number] [place] [address] Jun, [facility] [address] [id number] [place] [address] Jun, [facility] [address] [facility] [id number] [place] [address] Jun, [facility] [address] [id number] [place] [address] Jun, [facility] [address] [id number] [place] [address] 24 May, 2014 [facility] [address] [id number] [place] [address] 24 May, 2013 [facility] [address] [id number] [place] [address] 19 May, 2013 [facility] [address] [id number] [place] [address] 19 May, 2014 [facility] [address] [id number] [place] [address] 15 May, 2013 [facility] [address] [id number] [place] [address] 15 May, 2013 [facility] [address] [id number] [place] [address] 15 May, 2013 [facility] [address] [id number] [place] [address] 15 May, 2014 [facility] [address] [id number] [place] [address] Apr, [facility] [address] [id number] [place] [address] Apr, [facility] [address] [id number] [facility] [place] [address] Apr, [facility] [address] [facility] [id number] [facility] [address] Apr, [facility] [address] [facility] [id number] [place] [address] Apr, [facility] [address] [id number] [place] [address] Apr, [facility] [address] [id number] [place] [address] Apr, [facility] [address] [facility] [id number] [place] [address] Apr, [facility] [address] [id number] [place] [address] Apr, [facility] [address] [id number] [place] [address] Apr, [facility] [address] [id number] [place] [address] Apr, [facility] [address] [id number] [place] [address] Apr, [facility] [address] [id number] [place] [address] Mar, [facility] [address] [id number] [place] [address] Mar, [facility] [address] [id number] [place] [address] Mar, [facility] [address] [id number] [place] [address] Mar, [facility] [address] [id number] [place] [address] Mar, [facility] [address] [id number] [place] [address] Mar, [facility] [address] [id number] [place] [address] Feb, [facility] [address] [facility] [id number] [place] [address] 18 Feb, 2014 [facility] [address] [facility] [id number] [place] [address] Feb, [facility] [address] [facility] [id number] [place] [address] Feb, [facility] [address] [id number] [place] [address] Feb, [facility] [address] [facility] [id number] [place] [address] Feb, [facility] [address] [id number] [place] [address] Feb, [facility] [address] [id number] [place] [address] Feb, [facility] [address] [id number] [place] [address] Feb, [facility] [address] [id number] [place] [address] Feb, [facility] [address] [id number] [place] [address] Feb, [facility] [address] [id number] [place] [address] Feb, [facility] [address] [id number] [place] [address] Feb, [facility] [address] [id number] [place] [address] Feb, [facility] [address] [id number] [place] [address] January, [facility] [address] [id number] [place] [address] January, [facility] [address] [id number] [place] [address] January, [facility] [address] [id number] [place] [address] January, [facility] [address] [id number] [place] [address] January, [facility] [address] [id number] [facility] [place] [address] January, [facility] [address] [id number] [place] [address] Dec, [facility] [address] [id number] [facility] [place] [address] Dec, [facility] [address] [facility] [id number] [facility] [place] [address] Dec, [facility] [address] [id number] [place] [address] Dec, [facility] [address] [id number] [place] [address] Dec, [facility] [address] [id number] [place] [address] Dec, [facility] [address] [id number] [place] [address] Dec, [facility] [address] [id number] [place] [address] Dec, [facility] [address] [id number] [place] [address] Nov, [facility] [address] [id number] [place] [address] Nov, [facility] [address] [id number] [place] [address] Nov, [facility] [address] [id number] [place] [address] Nov, [facility] [address] [id number] [place] [address] Nov, [facility] [address] [id number] [place] [address] Nov, [facility] [address] [id number] [facility] [address] Nov, [facility] [address] [facility] [id number] [facility] [place] [address] Nov, [facility] [address] [facility] [id number] [place] [address] Oct, [facility] [address] [id number] [place] [address] Oct, [facility] [address] [facility] [id number] [place] [address] Oct, [facility] [address] [facility] [id number] [place] [address] Oct, [facility] [address] [id number] [place] [address] Oct, [facility] [address] [id number] [place] [address] Oct, [facility] [address] [id number] [place] [address] Oct, [facility] [address] [id number] [place] [address] Oct, [facility] [address] [id number] [place] [address] Oct, [facility] [address] [id number] [place] [address] Oct, [facility] [address] [id number] [place] [address] Sep, [facility] [address] [facility] [id number] [place] [address] Sep, [facility] [address] [id number] [place] [address] Sep, [facility] [address] [id number] [place] [address] Sep, [facility] [address] [id number] [place] [address] Sep, [facility] [address] [id number] [place] [address] Sep, [facility] [address] [id number] [place] [address] Aug, [facility] [address] [id number] [place] [address] Aug, [facility] [address] [id number] [place] [address] Aug, [facility] [address] [id number] [place] [address] Aug, [facility] [address] [id number] [place] [address] Aug, [facility] [address] [id number] [place] [address] Aug, [facility] [id number] [place] [address] Aug, [facility] [address] [id number] [place] [address] Aug, [facility] [address] [id number] [place] [address] Jul, [facility] [address] [id number] [place] [address] Jul, [facility] [id number] [place] [address] Jul, [facility] [address] [id number] [place] [address] Jul, [facility] [address] [id number] [place] [address] Jul, [facility] [address] [id number] [place] [address] Jul, [facility] [address] [id number] [place] [address] Jun, [facility] [address] [id number] [place] [address] Jun, [facility] [address] [facility] [id number] [facility] [place] [address] Jun, [facility] [address] [facility] [id number] [place] [address] May, [facility] [address] [id number] [place] [address] May, [facility] [address] [id number] [place] [address] May, [facility] [address] [id number] [place] [address] Apr, [facility] [address] [id number] [place] [address] Apr, [facility] [address] [id number] [place] [address] Apr, [facility] [address] [id number] [place] [address] Apr, [facility] [address] [id number] [place] [address] Mar, [facility] [address] [id number] [place] [address] Mar, [facility] [address] [id number] [place] [address] Mar, [facility] [address] [id number] [place] [address] Mar, [facility] [address] [id number] [place] [address] Feb, [facility] [address] [id number] [place] [address] Feb, [facility] [address] [id number] [place] [address] Feb, [facility] [address] [id number] [place] [address] Feb, [facility] [address] [id number] [place] [address] January, [facility] [address] [id number] [place] [address] January, [facility] [address] [id number] [place] [address] January, [facility] [address] [id number] [place] [address] Nov, [facility] [address] [id number] [place] [address] Nov, [facility] [address] [id number] [place] [address] Oct, [facility] [address] [id number] [place] [address] Oct, [facility] [address] [id number] [place] [address] Oct, [facility] [address] [id number] [place] [address] Oct, [facility] [address] [id number] [place] [address] Sep, [facility] [address] [id number] [place] [address] Sep, [facility] [address] [id number] [place] [address] Sep, [facility] [address] [id number] [place] [address] Aug, [facility] [address] [id number] [place] [address] Aug, [facility] [address] [id number] [place] [address] Aug, [facility] [address] [id number] [place] [address] Aug, [facility] [address] [id number] [place] [address] Aug, [facility] [address] [id number] [place] [address] Aug, [facility] [address] [id number] [place] [address] Jul, [facility] [address] [id number] [place] [address] Jul, [facility] [address] [id number] [place] [address] Jun, [facility] [address] [facility] [id number] [place] [address] Jun, [facility] [address] [id number] [place] [address] Jun, [facility] [address] [id number] [place] [address] Apr, [facility] [address] [id number] [place] [address] Apr, [facility] [address] [id number] [place] [address] Mar, [facility] [address] [id number] [place] [address] Mar, [facility] [address] [id number] [place] [address] Mar, [facility] [address] [id number] [place] [address] Mar, [facility] [address] [id number] [place] [address] Feb, [facility] [address] [id number] [place] [address] Feb, [facility] [address] [id number] [place] [address] Feb, [facility] [address] [id number] [place] [address] January, [facility] [address] [id number] [place] [address] January, [facility] [address] [id number] [place] [address] January, [facility] [address] [id number] [place] [address] January, [facility] [address] [id number] [place] [address] Dec, [facility] [address] [id number] [place] [address] Dec, [facility] [address] [id number] [place] [address] Nov, [facility] [address] [id number] [place] [address] Nov, [facility] [id number] [place] [address] Oct, [facility] [id number] [place] [address] Oct, [facility] [address] [id number] [place] [address] Sep, [facility] [address] [id number] [place] [address] Sep, [facility] [address] [id number] [place] [address] Sep, [facility] [address] [id number] [place] [address] Sep, [facility] [address] [id number] [place] [address] Aug, [facility] [id number] [place] [address] Aug, [facility] [address] [id number] [place] [address] Aug, [facility] [id number] [place] [address] Jul, [facility] [address] [id number] [place] [address] Aug, [facility] [address] [id number] [place] [address] Aug, [facility] [address] [id number] [place] [address] Aug, [facility] [address] [id number] [place] [address] Aug, [facility] [address] [id number] [place] [address] Jul, [facility] [id number] [place] [address] Jul, [facility] [address] [id number] [place] [address] Jul, [facility] [id number] [place] [address] Jun, [facility] [address] [id number] [place] [address] Jun, [facility] [address] [id number] [place] [address] Jun, [facility] [address] [id number] [place] [address] Apr, [facility] [address] [id number] [place] [address] Mar, IMMUNIZATIONS No Known Immunizations SOCIAL HISTORY [...]
--- OUTSIDE RECORDS SUMMARY | 2020-03-18 15:16 | XMS REPORT ---
Author Author George WAYNE Organization [facility] Address [address] [place] [address] Care Team Providers Care Android Developer Name Role Phone REYNA WAYNE Unavailable PROBLEMS Type Condition ICD9-CM Code JGS30-OG Code Onset Dates Condition S tatus SNOMED Code Problem Hypertension, benign I10 Active 94020609 Problem Other chronic pain G89.29 Active 8 0281511 Problem Lumbago with sciatica, unspecified side M54.40 Active 895060623 Problem Controlled type 2 diabetes m ellitus without complication, without long- term current use of insulin E11.9 Active 350959366 Problem Lumbago with sciatica, right side M54.41 Active 177710532 Problem Adjustment disorder with disturbance of emotion F4 3.29 Active 86308081 Problem MELE (obstructive sleep apnea) G47.33 Active 72441568 Problem Non morbid obesity E66.9 Active 4 92280780 Problem Hammer toe of left foot M20.42 Active 167236379 Problem Mood disorder F39 Active 156232 05 Problem Deformity of left foot M21.962 Active 200057278 Problem Lumbago with sciatica, left side M54.42 Active 910770809 Problem Erectile dysfunction due to diseases classified elsewhere N52.1 Active 638854987 Problem Obstructive sleep apnea syndrome G47.33 Active 18170939 Problem Type 2 diabetes mellitus wit h diabetic neuropathy, without long-term current use of insulin E11.40 Active 96388 006 Problem Essential hypertension I10 Active 36312132 ALLERGIES No Information ENCOUNTERS Encounter Location Date Diagnosis [facility] [address] [id number] [place] [address] Sep, [facility] [address] [id number] [place] [address] Aug, [facility] [address] [id number] [place] [address] Jul, Lumbago with sciatica, unspecified side M54.40 [facility] [address] [address] Jun, Lumbago with sciatica, unspecified side M54.40 [facility] [address] [address] Jun, URI, acute J06.9 [facility] [address] [address] May, Lumbago with sciatica, unspecified side M54.40 [place] [address] [address] May, [place] [address] [address] May, Type 2 diabetes mellitus with diabetic n europathy, without long-term current use of insulin E11.40 and Hammer toe of left foot M20.42 [place] [address] [address] May, [place] [address] [address] May, [place] [address] [address] May, [place] [address] [address] Apr, Lumbago with sciatica, unspecified side M54.40 [place] [address] [address] Apr, [facility] [address] [address] Apr, [address] [place] [address] Apr, Hammer toe of left foot M20. 42 ; Chest pain R07.9 ; Preoperative examination Z01.818 and Morbid obesity E66.01 [place] [address] [address] Apr, Morbid obesity E66.01 ; Bronchitis J40 a nd High risk medications (not anticoagulants) long-term use Z79.899 [place] [address] [address] Apr, Lumbago with sciatica, unspecified side M54.40 [place] [address] [address] Apr, [place] [address] [address] Mar, Lumbar neuritis M54.16 and Morbid obesit y E66.01 [place] [address] [address] Mar, [place] [address] [address] Mar, [place] [address] [address] Mar, Lumbago with sciatica, unspecified side M54.40 [place] [address] [address] Mar, Morbid obesity E66.01 ; Coughing R05 ; 2 + pitting edema R60.9 and Controlled type 2 diabetes mellitus without complication, without long-term current use of insulin E11.9 [place] [address] [address] Feb, [place] [address] [address] Feb, Lumbago with sciatica, unspecified side M54.40 [place] [address] [address] Feb, [place] [address] [address] Feb, Controlled type 2 diabetes mellitus with out complication, without long-term current use of insulin E11.9 and Morbid obesity E66.01 [place] [address] [address] January, Deformity of left foot M21.962 [facility] [address] [address] January, [facility] [address] [address] January, Lumbago with sciatica, unspecified side M54.40 [place] [address] [address] January, [place] [address] [address] January, Lumbago with sciatica, unspecified side M54.40 [place] [address] [address] January, [place] [address] [address] January, Acute right-sided thoracic back pain M54 .6 [place] [address] [address] January, Acute right-sided thoracic back pain M54 .6 [place] [address] [address] January, Chest pain, unspecified type R07.9 ; Mor bid obesity E66.01 and Scabies B86 [place] [address] [address] Dec, Lumbago with sciatica, unspecified side M54.40 [place] [address] [address] Dec, Toenail fungus B35.1 [place] [address] [address] Dec, Toenail fungus B35.1 [place] [address] [address] Dec, Acute right-sided thoracic back pain M54 .6 [place] [address] [address] Dec, Lumbago with sciatica, unspecified side M54.40 [facility] [address] [address] Nov, Hammer toe of left foot M20.42 ; Deformi ty of left foot M21.962 and Type 2 diabetes mellitus with diabetic neuropathy, without long-term current use of insulin E11.40 [facility] [place] [facility] [address] [facility] [id number] [address] [place] [address] Nov, Acute right-sided thoracic b ack pain M54.6 ; Morbid obesity E66.01 and Rt flank pain R10.9 [place] [address] [address] Nov, Lumbago with sciatica, unspecified side M54.40 [place] [address] [address] Oct, Lumbago with sciatica, unspecified side M54.40 [place] [address] [address] Sep, Lumbago with sciatica, unspecified side M54.40 [place] [address] [address] Sep, [place] [address] [address] Sep, BMI 40.0-44.9, adult Z68.41 ; Lumbago wi th sciatica, left side M54.42 ; Lumbago with sciatica, right side M54.41 and Other chronic pain G89.29 [place] [address] [address] Aug, Lumbago with sciatica, unspecified side M54.40 [place] [address] [address] Aug, Type 2 diabetes mellitus with diabetic n europathy, without long-term current use of insulin E11.40 ; Hammer toe of left foot M20.42 ; Hypertension, benign I10 and Frequent headaches R51 [place] [address] [address] Jul, Lumbago with sciatica, unspecified side M54.40 [place] [address] [place] [address] Jul, [place] [address] [place] [address] Jul, Essential hypertension I10 and Controlle d type 2 diabetes mellitus without complication, without long-term current use of insulin E11.9 [place] [address] [address] Jul, Essential hypertension I10 ; Controlled type 2 diabetes mellitus without complication, without long-term current use of insulin E11.9 and BMI 40.0-44.9, adult Z68.41 [place] [address] [address] Jul, Dysfunction of left eustachian tube H69. 82 [place] [address] [address] Jul, Lumbago with sciatica, unspecified side M54.40 [facility] [address] [place] [id number] [place] [id number] Jun, Dental examination Z01.20 [place] [address] [address] Jun, Lumbago with sciatica, unspecified side M54.40 and Encounter for immunization Z23 [place] [address] [address] Jun, Dysfunction of left eustachian tube H69. 82 [facility] [address] [place] [id number] Jun, Dental examination Z01.20 [facility] [address] [place] [id number] [place] [address] Jun, Other chronic pain G89.29 [facility] [address] [facility] [place] [id number] Jun, Dental examination Z01.20 [facility] [address] [address] Jun, [facility] [address] [address] Jun, Bronchitis J40 ; Dysfunction of left eus tachian tube H69.82 and BMI 45.0-49.9, adult Z68.42 [place] [address] [address] Jun, Lumbago with sciatica, unspecified side M54.40 [place] [address] [address] May, Type 2 diabetes mellitus with diabetic n europathy, without long-term current use of insulin E11.40 and Hypertension, benign I10 [place] [address] [address] May, Lumbago with sciatica, unspecified side M54.40 [facility] [place] [address] [facility] [id number] [address] [place] [address] Apr, [facility] [address] [address] Apr, Controlled type 2 diabetes mellitus with out complication, without long-term current use of insulin E11.9 ; Insect bite (nonvenomous), right ankle, initial encounter S90.561A ; Local infection of the skin and subcutaneous tissue, unspecified L08.9 ; Acute swimmer''s ear of left side H60.332 and BMI 45.0-49.9, adult Z68.42 [place] [address] [address] Apr, Lumbago with sciatica, unspecified side M54.40 [place] [address] [address] Mar, [place] [address] [address] Mar, Lumbago with sciatica, unspecified side M54.40 [place] [address] [address] Feb, Lumbago with sciatica, unspecified side M54.40 [place] [address] [address] Feb, BMI 45.0-49.9, adult Z68.42 and Obstruct jaida sleep apnea syndrome G47.33 [place] [address] [address] January, Lumbar neuritis M54.[address] [address] January, Lumbago with sciatica, unspecified side M54.40 [place] [address] [address] Dec, Controlled type 2 diabetes mellitus with out complication, without long-term current use of insulin E11.9 ; Erectile dysfunction due to diseases classified elsewhere N52.1 and Mood disorder F39 [place] [address] [address] Dec, Lumbago with sciatica, unspecified side M54.40 [place] [address] [address] Dec, Obstructive sleep apnea syndrome G47.[address] [address] Nov, Lumbago with sciatica, unspecified side M54.40 ; Hypertension, benign I10 and Mood disorder F39 [place] [address] [address] Nov, Other chronic pain G89.29 [place] [address] [address] Nov, Lumbago with sciatica, unspecified side M54.40 [facility] [address] [id number] Nov, Dental examination Z01.20 [facility] [address] [address] Oct, [facility] [address] [place] [id number] Oct, Lumbago with sciatica, unspecified side M54.40 [facility] [address] [address] Oct, Lumbago with sciatica, unspecified side M54.40 [facility] [address] [address] Oct, [facility] [address] [address] Oct, [facility] [address] [id number] Oct, Dental examination Z01.20 [facility] [address] [address] Oct, [facility] [address] [address] Oct, Pain in right knee M25.561 [facility] [address] [address] Sep, [facility] [address] [address] Sep, Other chronic pain G89.29 [facility] [address] [address] Sep, Lumbago with sciatica, unspecified side M54.40 [facility] [address] [address] Sep, [facility] WALK IN [facility] [address] [place] [id number] [place] [address] Sep, Viral URI J06.9 and BMI 45.0 -49.9, adult Z68.42 [facility] IN [facility] [address] [place] [id number] [place] [address] Aug, Foreign body hand S60.559A a nd BMI 45.0-49.9, adult Z68.42 [place] [address] [address] Aug, [place] [address] [address] Aug, Lumbago with sciatica, unspecified side M54.40 [place] [address] [address] Aug, Vertigo R42 ; Dysfunction of both eustac hian tubes H69.83 ; Low back pain M54.5 and Other chronic pain G89.29 [facility] IN [facility] [address] [place] [id number] [place] [address] Aug, Dizziness R42 and Acute bila teral otitis media H66.93 [place] [address] [address] Aug, Lumbago with sciatica, unspecified side M54.40 [facility] [address] [facility] [place] [id number] Jul, Dental examination Z01.20 [place] [address] [address] Jul, [place] [address] [address] Jul, [place] [address] [address] Jul, Dysfunction of both eustachian tubes H69 .83 [place] [address] [address] Jul, Controlled type 2 diabetes mellitus with out complication, without long-term current use of insulin E11.9 [facility] [address] [address] Jul, Controlled type 2 diabetes mellitus with out complication, without long-term current use of insulin E11.9 [facility] WALK IN [facility] [address] [facility] [id number] [address] [place] [address] Jul, Dizziness R42 and BMI 40.0-4 4.9, adult Z68.41 [facility] [address] [address] Jul, Controlled type 2 diabetes mellitus with out complication, without long-term current use of insulin E11.9 [place] [address] [address] Jul, Lumbago with sciatica, unspecified side M54.40 [facility] [address] [id number] Jul, Dental examination Z01.20 [facility] [address] [address] Jun, [facility] [address] [id number] Jun, Dental examination Z01.20 [place] [address] [address] Jun, Controlled type 2 diabetes mellitus with out complication, without long-term current use of insulin E11.9 [facility] [address] [address] Jun, Lumbago with sciatica, unspecified side M54.40 [facility] [address] [id number] May, Dental examination Z01.20 [facility] [address] [address] May, Controlled type 2 diabetes mellitus with out complication, without long-term current use of insulin E11.9 [facility] [address] [id number] May, Dental examination Z01.20 [facility] [address] [address] 18 May, 2017 Bronchitis J40 ; Dry mouth R68.2 ; Non m orbid obesity E66.9 and Controlled type 2 diabetes mellitus without complication, without long-term current use of insulin E11.9 [facility] IN [facility] [address] [address] 16 May, 2017 Encounter for immunization Z 23 [place] [address] [address] 07 May, 2017 Lumbago with sciatica, unspecified side M54.40 [place] [address] [address] 05 May, 2017 [facility] [address] [id number] Apr, Dental examination Z01.20 [place] [address] [address] Apr, Lumbago with sciatica, unspecified side M54.40 [facility] WALK IN [facility] [address] [address] Mar, Lumbago with sciatica, left side M54.42 [place] [address] [address] Mar, [place] [address] [address] Mar, Lumbar neuritis M54.16 [facility] [address] [address] Mar, [facility] [address] [id number] Mar, Dental examination Z01.20 [place] [address] [address] Mar, MELE (obstructive sleep apnea) G47.33 ; N europathy involving both lower extremities G57.93 and Frequent headaches R51 [place] [address] [address] Mar, Lumbago with sciatica, unspecified side M54.40 [place] [address] [address] Feb, Lumbago with sciatica, unspecified side M54.40 and Controlled type 2 diabetes mellitus without complication, without long-term current use of insulin E11.9 [place] [address] [address] 16 Jan, 2017 Hypertension, benign I10 and Bilateral l ow back pain with sciatica, sciatica laterality unspecified M54.40 [place] [address] [address] January, Hypertension, benign I10 ; Lumbago with sciatica, unspecified side M54.40 ; Other chronic pain G89.29 and Controlled type 2 diabetes mellitus without complication, without long-term current use of insulin E11.9 [place] [address] [address] January, Lumbar neuritis M54.16 [place] [address] [address] January, [place] [address] [address] Dec, Lumbago with sciatica, right side M54.41 and Lumbar neuritis M54.16 [place] [address] [address] Dec, Lumbar neuritis M54.16 [place] [address] [address] Dec, Lumbar neuritis M54.16 [place] [address] [address] Nov, Lumbar neuritis M54.16 ; Lumbago with sc iatica, right side M54.41 ; Controlled type 2 diabetes mellitus without complication, without long-term current use of insulin E11.9 and Rash and nonspecific skin eruption R21 [place] [address] [address] 09 Nov, 2016 Lumbar neuritis M54.16 and Poison miroslava L2 3.[address] [address] Oct, Lumbar neuritis M54.16 ; Coughing R05 an d Mood disorder F39 [address] [address] Sep, Lumbago with sciatica, right side M54.[address] [address] Sep, Adjustment disorder with disturbance of emotion F43.29 and Pain management R52 [address] [address] Sep, [place] [address] [address] Sep, [address] [address] Sep, Controlled type 2 diabetes mellitus with out complication, without long-term current use of insulin E11.9 and Lumbago with sciatica, unspecified side M54.[address] [address] Aug, Controlled type 2 diabetes mellitus with out complication, without long-term current use of insulin E11.9 ; Pain in right knee M25.561 ; Pain in left knee M25.562 ; Other chronic pain G89.29 ; Lumbago with sciatica, right side M54.41 ; Neck pain M54.2 and Encounter for immunization Z23 [place] [address] [address] Jul, [address] [address] Jul, Controlled type 2 diabetes mellitus with out complication, without long-term current use of insulin E11.9 [place] [address] [address] Jul, [place] [address] [address] Jul, [place] [address] [address] Jul, Lumbago with sciatica, left side M54.42 ; Lumbago with sciatica, right side M54.41 and Other chronic pain G89.29 [place] [address] [address] Jul, [place] [address] [address] Jul, [place] [address] [address] Jun, [place] [address] [address] Jun, Lumbago with sciatica, right side M54.41 and Other chronic pain G89.29 [place] [address] [address] Jun, Cervicalgia M54.2 ; Lumbago with sciatic a, unspecified side M54.40 and Other chronic pain G89.29 [place] [address] [address] 15 May, 2016 Pain in right knee M25.561 ; Pain in lef t knee M25.562 and Other chronic pain G89.29 [place] [address] [address] 14 May, 2016 [place] [address] [address] 05 Apr, 2016 Other chronic pain G89.29 and Pain in ri ght knee M25.561 [place] [address] [address] Apr, Pain in right knee M25.561 [place] [address] [address] Mar, [place] [address] [address] Mar, Mood disorder F39 and Controlled type 2 diabetes mellitus without complication, without long-term current use of insulin E11.9 [place] [address] [address] Mar, Pain in right knee M25.561 ; Pain in lef t knee M25.562 ; Other chronic pain G89.29 ; Obstructive sleep apnea syndrome G47.33 ; Mood disorder F39 and Controlled type 2 diabetes mellitus without complication, without long-term current use of insulin E11.9 [place] [address] [address] Mar, [facility] [address] [id number] Feb, Dental examination Z01.20 [place] [address] [address] Feb, [place] [address] [address] Feb, Osteoarthritis of right knee, unspecifie d osteoarthritis type M17.9 [place] [address] [address] January, [facility] [address] [id number] January, Dental examination Z01.20 [place] [address] [address] January, [facility] [address] [id number] January, Dental examination Z01.20 and Caries K02 .9 [place] [address] [address] Dec, Encounter for other preprocedural examin ation Z01.818 [facility] [address] [address] Dec, [facility] [address] [address] Dec, Knee pain M25.569 [facility] [address] [address] Dec, Pain in right knee M25.561 [facility] [address] [address] Dec, [facility] [address] [address] Dec, [facility] [address] [address] Dec, Encounter for immunization Z23 [facility] [address] [address] Dec, [facility] [address] [address] Dec, [facility] [address] [address] Nov, [facility] [address] [address] Nov, Hypertension, benign I10 ; Cervicalgia M 54.2 ; Pain in right knee M25.561 and Pain in left knee M25.562 [facility] [address] [address] Oct, [facility] [address] [address] Oct, [facility] [address] [address] 11 Oct, 2015 Osteoarthritis of both knees M17.0 [facility] [address] [address] Oct, [place] [address] [address] Oct, Low back pain M54.5 [place] [address] [address] Oct, Low back pain M54.5 ; Sciatica, unspecif ied side M54.30 ; Pain in right knee M25.561 ; Pain in left knee M25.562 ; Pain in right shoulder M25.511 and Pain in left shoulder M25.[address] [address] Oct, [address] [address] Sep, Pain in right hip M25.[address] [address] Sep, Acute upper respiratory infection, unspe cified J06.[address] [address] Aug, Acute upper respiratory infection, unspe cified J06.9 and Other viral agents as the cause of diseases classified elsewhere B97.[address] [address] Jul, Arthritis M19.[address] [address] Jun, Arthritis M19.90 ; Pain in right hip M25 .551 ; Pain in left hip M25.552 ; Bilateral low back pain with sciatica, sciatica laterality unspecified M54.40 ; Neck pain M54.2 ; Upper back pain M54.9 and Knee pain, unspecified laterality M25.[address] [address] May, Osteoarthritis of both knees 715.[address] [address] May, Rash 782.1 [facility] [address] [address] Apr, Lumbar strain 847.2 [facility] [address] [address] Apr, Rash 782.1 [facility] [address] [address] Mar, Rash 782.1 [facility] [address] [address] Feb, Rash 782.1 ; Hemorrhoids 455.6 and Const ipation 564.00 [facility] [address] [address] Feb, Osteoarthritis of both knees 715.96 [facility] [address] [address] January, [facility] [address] [address] Dec, [facility] [address] [address] Dec, [facility] [address] [address] Dec, [facility] [address] [address] Nov, [facility] [address] [address] Nov, [facility] [address] [address] Nov, [facility] [address] [address] Nov, [facility] [address] [address] Nov, [facility] [address] [address] Nov, [facility] [address] [id number] [place] [address] Oct, [facility] [address] [id number] [place] [address] Oct, [facility] [address] [id number] [place] [address] Oct, [facility] [address] [id number] [place] [address] Oct, [facility] [address] [id number] [place] [address] Oct, [facility] [address] [id number] [place] [address] Oct, [facility] [address] [id number] [place] [address] Oct, [facility] [address] [id number] [place] [address] Oct, [facility] [address] [id number] [place] [address] Oct, [facility] [address] [id number] [place] [address] Oct, [facility] [address] [id number] [place] [address] Oct, [facility] [address] [id number] [place] [address] Sep, [facility] [address] [id number] [place] [address] Sep, [facility] [address] [id number] [place] [address] Sep, [facility] [address] [id number] [place] [address] Sep, [facility] [address] [id number] [place] [address] Sep, [facility] [address] [id number] [place] [address] Sep, [facility] [address] [id number] [place] [address] Aug, [facility] [address] [id number] [place] [address] Aug, [facility] [address] [id number] [place] [address] Aug, [facility] [address] [id number] [place] [address] Aug, [facility] [address] [id number] [place] [address] Aug, [facility] [address] [id number] [place] [address] Aug, [facility] [address] [id number] [place] [address] Aug, [facility] [address] [id number] [place] [address] Aug, [facility] [address] [id number] [place] [address] Aug, [facility] [address] [id number] [place] [address] Aug, [facility] [address] [id number] [place] [address] Jul, [facility] [address] [id number] [place] [address] Jul, [facility] [address] [id number] [place] [address] Jul, [facility] [id number] [place] [address] Jul, [facility] [address] [id number] [place] [address] Jun, [facility] [address] [id number] [place] [address] Jun, [facility] [address] [facility] [id number] [place] [address] Jun, [facility] [address] [facility] [id number] [place] [address] Jun, [facility] [address] [id number] [place] [address] Jun, [facility] [address] [id number] [place] [address] Jun, [facility] [address] [facility] [id number] [place] [address] Jun, [facility] [address] [id number] [place] [address] Jun, [facility] [address] [id number] [place] [address] 24 May, 2014 [facility] [address] [id number] [place] [address] 24 May, 2013 [facility] [address] [id number] [place] [address] 19 May, 2013 [facility] [address] [id number] [place] [address] 19 May, 2014 [facility] [address] [id number] [place] [address] 15 May, 2013 [facility] [address] [id number] [place] [address] 15 May, 2013 [facility] [address] [id number] [place] [address] 15 May, 2013 [facility] [address] [id number] [place] [address] 15 May, 2014 [facility] [address] [id number] [place] [address] Apr, [facility] [address] [id number] [place] [address] Apr, [facility] [address] [id number] [facility] [place] [place] [address] Apr, [facility] [address] [facility] [id number] [facility] [place] [facility] [address] Apr, [facility] [address] [facility] [id number] [place] [address] Apr, [facility] [address] [id number] [place] [address] Apr, [facility] [address] [id number] [place] [address] Apr, [facility] [address] [facility] [id number] [place] [address] Apr, [facility] [address] [id number] [place] [address] Apr, [facility] [address] [id number] [place] [address] Apr, [facility] [address] [id number] [place] [address] Apr, [facility] [address] [id number] [place] [address] Apr, [facility] [address] [id number] [place] [address] Mar, [facility] [address] [id number] [place] [address] Mar, [facility] [address] [id number] [place] [address] Mar, [facility] [address] [id number] [place] [address] Mar, [facility] [address] [id number] [place] [address] Mar, [facility] [address] [id number] [place] [address] Mar, [facility] [address] [id number] [place] [address] Feb, [facility] [address] [facility] [id number] [place] [address] 18 Feb, 2014 [facility] [address] [facility] [id number] [place] [address] Feb, [facility] [address] [facility] [id number] [place] [address] Feb, [facility] [address] [id number] [place] [address] Feb, [facility] [address] [facility] [id number] [place] [address] Feb, [facility] [address] [id number] [place] [address] Feb, [facility] [address] [id number] [place] [address] Feb, [facility] [address] [id number] [place] [address] Feb, [facility] [address] [id number] [place] [address] Feb, [facility] [address] [id number] [place] [address] Feb, [facility] [address] [id number] [place] [address] Feb, [facility] [address] [id number] [place] [address] Feb, [facility] [address] [id number] [place] [address] Feb, [facility] [address] [id number] [place] [address] January, [facility] [address] [id number] [place] [address] January, [facility] [address] [id number] [place] [address] January, [facility] [address] [id number] [place] [address] January, [facility] [address] [id number] [place] [address] January, [facility] [address] [id number] [facility] [place] [facility] [place] [address] January, [facility] [address] [id number] [place] [address] Dec, [facility] [address] [id number] [facility] [place] [facility] [place] [address] Dec, [facility] [address] [facility] [id number] [facility] [place] [address] Dec, [facility] [address] [id number] [place] [address] Dec, [facility] [address] [id number] [place] [address] Dec, [facility] [address] [id number] [place] [address] Dec, [facility] [address] [id number] [place] [address] Dec, [facility] [address] [id number] [place] [address] Dec, [facility] [address] [id number] [place] [address] Nov, [facility] [address] [id number] [place] [address] Nov, [facility] [address] [id number] [place] [address] Nov, [facility] [address] [id number] [place] [address] Nov, [facility] [address] [id number] [place] [address] Nov, [facility] [address] [id number] [place] [address] Nov, [facility] [address] [id number] [facility] [place] [place] [address] Nov, [facility] [address] [facility] [id number] [facility] [place] [address] Nov, [facility] [address] [facility] [id number] [place] [address] Oct, [facility] [address] [id number] [place] [address] Oct, [facility] [address] [facility] [id number] [place] [address] Oct, [facility] [address] [facility] [id number] [place] [address] Oct, [facility] [address] [id number] [place] [address] Oct, [facility] [address] [id number] [place] [address] Oct, [facility] [address] [id number] [place] [address] Oct, [facility] [address] [id number] [place] [address] Oct, [facility] [address] [id number] [place] [address] Oct, [facility] [address] [id number] [place] [address] Oct, [facility] [address] [id number] [place] [address] Sep, [facility] [address] [facility] [id number] [place] [address] Sep, [facility] [address] [id number] [place] [address] Sep, [facility] [address] [id number] [place] [address] Sep, [facility] [address] [id number] [place] [address] Sep, [facility] [address] [id number] [place] [address] Sep, [facility] [address] [id number] [place] [address] Aug, [facility] [address] [id number] [place] [address] Aug, [facility] [address] [id number] [place] [address] Aug, [facility] [address] [id number] [place] [address] Aug, [facility] [address] [id number] [place] [address] Aug, [facility] [address] [id number] [place] [address] Aug, [facility] [id number] [place] [address] Aug, [facility] [address] [id number] [place] [address] Aug, [facility] [address] [id number] [place] [address] Jul, [facility] [address] [id number] [place] [address] Jul, [facility] [id number] [place] [address] Jul, [facility] [address] [id number] [place] [address] Jul, [facility] [address] [id number] [place] [address] Jul, [facility] [address] [id number] [place] [address] Jul, [facility] [address] [id number] [place] [address] Jun, [facility] [address] [id number] [place] [address] Jun, [facility] [address] [facility] [id number] [facility] [place] [address] Jun, [facility] [address] [facility] [id number] [place] [address] May, [facility] [address] [id number] [place] [address] May, [facility] [address] [id number] [place] [address] May, [facility] [address] [id number] [place] [address] Apr, [facility] [address] [id number] [place] [address] Apr, [facility] [address] [id number] [place] [address] Apr, [facility] [address] [id number] [place] [address] Apr, [facility] [address] [id number] [place] [address] Mar, [facility] [address] [id number] [place] [address] Mar, [facility] [address] [id number] [place] [address] Mar, [facility] [address] [id number] [place] [address] Mar, [facility] [address] [id number] [place] [address] Feb, [facility] [address] [id number] [place] [address] Feb, [facility] [address] [id number] [place] [address] Feb, [facility] [address] [id number] [place] [address] Feb, [facility] [address] [id number] [place] [address] January, [facility] [address] [id number] [place] [address] January, [facility] [address] [id number] [place] [address] January, [facility] [address] [id number] [place] [address] Nov, [facility] [address] [id number] [place] [address] Nov, [facility] [address] [id number] [place] [address] Oct, [facility] [address] [id number] [place] [address] Oct, [facility] [address] [id number] [place] [address] Oct, [facility] [address] [id number] [place] [address] Oct, [facility] [address] [id number] [place] [address] Sep, [facility] [address] [id number] [place] [address] Sep, [facility] [address] [id number] [place] [address] Sep, [facility] [address] [id number] [place] [address] Aug, [facility] [address] [id number] [place] [address] Aug, [facility] [address] [id number] [place] [address] Aug, [facility] [address] [id number] [place] [address] Aug, [facility] [address] [id number] [place] [address] Aug, [facility] [address] [id number] [place] [address] Aug, [facility] [address] [id number] [place] [address] Jul, [facility] [address] [id number] [place] [address] Jul, [facility] [address] [id number] [place] [address] Jun, [facility] [address] [facility] [id number] [place] [address] Jun, [facility] [address] [id number] [place] [address] Jun, [facility] [address] [id number] [place] [address] Apr, [facility] [address] [id number] [place] [address] Apr, [facility] [address] [id number] [place] [address] Mar, [facility] [address] [id number] [place] [address] Mar, [facility] [address] [id number] [place] [address] Mar, [facility] [address] [id number] [place] [address] Mar, [facility] [address] [id number] [place] [address] Feb, [facility] [address] [id number] [place] [address] Feb, [facility] [address] [id number] [place] [address] Feb, [facility] [address] [id number] [place] [address] January, [facility] [address] [id number] [place] [address] January, [facility] [address] [id number] [place] [address] January, [facility] [address] [id number] [place] [address] January, [facility] [address] [id number] [place] [address] Dec, [facility] [address] [id number] [place] [address] Dec, [facility] [address] [id number] [place] [address] Nov, [facility] [address] [id number] [place] [address] Nov, [facility] [id number] [place] [address] Oct, [facility] [id number] [place] [address] Oct, [facility] [address] [id number] [place] [address] Sep, [facility] [address] [id number] [place] [address] Sep, [facility] [address] [id number] [place] [address] Sep, [facility] [address] [id number] [place] [address] Sep, [facility] [address] [id number] [place] [address] Aug, [facility] [id number] [place] [address] Aug, [facility] [address] [id number] [place] [address] Aug, [facility] [id number] [place] [address] Jul, [facility] [address] [id number] [place] [address] Aug, [facility] [address] [id number] [place] [address] Aug, [facility] [address] [id number] [place] [address] Aug, [facility] [address] [id number] [place] [address] Aug, [facility] [address] [id number] [place] [address] Jul, [facility] [id number] [place] [address] Jul, [facility] [address] [id number] [place] [address] Jul, [facility] [id number] [place] [address] Jun, [facility] [address] [id number] [place] [address] Jun, [facility] [address] [id number] [place] [address] Jun, [facility] [address] [id number] [place] [address] Apr, [facility] [address] [id number] [place] [address] Mar, IMMUNIZATIONS No Known Immunizations SOCIAL HISTORY [...]
--- OUTSIDE RECORDS SUMMARY | 2020-03-18 15:16 | XMS REPORT ---
Author Author George WAYNE Organization [facility] Address [address] [place] [address] Care Team Providers Care Instrument Technician Helper Name Role Phone REYNA WAYNE Unavailable PROBLEMS Type Condition ICD9-CM Code WQG79-FV Code Onset Dates Condition S tatus SNOMED Code Problem Hypertension, benign I10 Active 55494701 Problem Other chronic pain G89.29 Active 8 2357920 Problem Lumbago with sciatica, unspecified side M54.40 Active 398233979 Problem Controlled type 2 diabetes m ellitus without complication, without long- term current use of insulin E11.9 Active 102724918 Problem Lumbago with sciatica, right side M54.41 Active 091656204 Problem Adjustment disorder with disturbance of emotion F4 3.29 Active 18899092 Problem MELE (obstructive sleep apnea) G47.33 Active 94069429 Problem Non morbid obesity E66.9 Active 4 51993497 Problem Hammer toe of left foot M20.42 Active 712782205 Problem Mood disorder F39 Active 657383 05 Problem Deformity of left foot M21.962 Active 329838832 Problem Lumbago with sciatica, left side M54.42 Active 141860631 Problem Erectile dysfunction due to diseases classified elsewhere N52.1 Active 072693458 Problem Obstructive sleep apnea syndrome G47.33 Active 11143227 Problem Type 2 diabetes mellitus wit h diabetic neuropathy, without long-term current use of insulin E11.40 Active 13513 006 Problem Essential hypertension I10 Active 78275991 ALLERGIES No Information ENCOUNTERS Encounter Location Date Diagnosis [facility] [address] [id number] [place] [address] Sep, [facility] [address] [id number] [place] [address] Aug, [facility] [address] [id number] [place] [address] Jul, Lumbago with sciatica, unspecified side M54.40 [facility] [address] [address] Jun, Lumbago with sciatica, unspecified side M54.40 [facility] [address] [address] Jun, URI, acute J06.9 [facility] [address] [address] May, Lumbago with sciatica, unspecified side M54.40 [place] [address] [address] May, [place] [address] [address] May, Type 2 diabetes mellitus with diabetic n europathy, without long-term current use of insulin E11.40 and Hammer toe of left foot M20.42 [place] [address] [address] May, [place] [address] [address] May, [place] [address] [address] May, [place] [address] [address] Apr, Lumbago with sciatica, unspecified side M54.40 [place] [address] [address] Apr, [facility] [address] [address] Apr, [address] [place] [address] Apr, Hammer toe of left foot M20. 42 ; Chest pain R07.9 ; Preoperative examination Z01.818 and Morbid obesity E66.01 [place] [address] [address] Apr, Morbid obesity E66.01 ; Bronchitis J40 a nd High risk medications (not anticoagulants) long-term use Z79.899 [place] [address] [address] Apr, Lumbago with sciatica, unspecified side M54.40 [place] [address] [address] Apr, [place] [address] [address] Mar, Lumbar neuritis M54.16 and Morbid obesit y E66.01 [place] [address] [address] Mar, [place] [address] [address] Mar, [place] [address] [address] Mar, Lumbago with sciatica, unspecified side M54.40 [place] [address] [address] Mar, Morbid obesity E66.01 ; Coughing R05 ; 2 + pitting edema R60.9 and Controlled type 2 diabetes mellitus without complication, without long-term current use of insulin E11.9 [place] [address] [address] Feb, [place] [address] [address] Feb, Lumbago with sciatica, unspecified side M54.40 [place] [address] [address] Feb, [place] [address] [address] Feb, Controlled type 2 diabetes mellitus with out complication, without long-term current use of insulin E11.9 and Morbid obesity E66.01 [place] [address] [address] January, Deformity of left foot M21.962 [facility] [address] [address] January, [facility] [address] [address] January, Lumbago with sciatica, unspecified side M54.40 [place] [address] [address] January, [place] [address] [address] January, Lumbago with sciatica, unspecified side M54.40 [place] [address] [address] January, [place] [address] [address] January, Acute right-sided thoracic back pain M54 .6 [place] [address] [address] January, Acute right-sided thoracic back pain M54 .6 [place] [address] [address] January, Chest pain, unspecified type R07.9 ; Mor bid obesity E66.01 and Scabies B86 [place] [address] [address] Dec, Lumbago with sciatica, unspecified side M54.40 [place] [address] [address] Dec, Toenail fungus B35.1 [place] [address] [address] Dec, Toenail fungus B35.1 [place] [address] [address] Dec, Acute right-sided thoracic back pain M54 .6 [place] [address] [address] Dec, Lumbago with sciatica, unspecified side M54.40 [facility] [address] [address] Nov, Hammer toe of left foot M20.42 ; Deformi ty of left foot M21.962 and Type 2 diabetes mellitus with diabetic neuropathy, without long-term current use of insulin E11.40 [facility] [address] [facility] [id number] [place] [address] Nov, Acute right-sided thoracic b ack pain M54.6 ; Morbid obesity E66.01 and Rt flank pain R10.9 [place] [address] [address] Nov, Lumbago with sciatica, unspecified side M54.40 [place] [address] [address] Oct, Lumbago with sciatica, unspecified side M54.40 [place] [address] [address] Sep, Lumbago with sciatica, unspecified side M54.40 [place] [address] [address] Sep, [place] [address] [address] Sep, BMI 40.0-44.9, adult Z68.41 ; Lumbago wi th sciatica, left side M54.42 ; Lumbago with sciatica, right side M54.41 and Other chronic pain G89.29 [place] [address] [address] Aug, Lumbago with sciatica, unspecified side M54.40 [place] [address] [address] Aug, Type 2 diabetes mellitus with diabetic n europathy, without long-term current use of insulin E11.40 ; Hammer toe of left foot M20.42 ; Hypertension, benign I10 and Frequent headaches R51 [place] [address] [address] Jul, Lumbago with sciatica, unspecified side M54.40 [place] [address] [place] [address] Jul, [place] [address] [place] [address] Jul, Essential hypertension I10 and Controlle d type 2 diabetes mellitus without complication, without long-term current use of insulin E11.9 [place] [address] [address] Jul, Essential hypertension I10 ; Controlled type 2 diabetes mellitus without complication, without long-term current use of insulin E11.9 and BMI 40.0-44.9, adult Z68.41 [place] [address] [address] Jul, Dysfunction of left eustachian tube H69. 82 [place] [address] [address] Jul, Lumbago with sciatica, unspecified side M54.40 [facility] [address] [place] [id number] [place] [id number] Jun, Dental examination Z01.20 [place] [address] [address] Jun, Lumbago with sciatica, unspecified side M54.40 and Encounter for immunization Z23 [place] [address] [address] Jun, Dysfunction of left eustachian tube H69. 82 [facility] [address] [id number] [id number] Jun, Dental examination Z01.20 [facility] [address] [place] [id number] [place] [address] Jun, Other chronic pain G89.29 [facility] [address] [facility] [place] [id number] Jun, Dental examination Z01.20 [facility] [address] [address] Jun, [facility] [address] [address] Jun, Bronchitis J40 ; Dysfunction of left eus tachian tube H69.82 and BMI 45.0-49.9, adult Z68.42 [place] [address] [address] Jun, Lumbago with sciatica, unspecified side M54.40 [place] [address] [address] May, Type 2 diabetes mellitus with diabetic n europathy, without long-term current use of insulin E11.40 and Hypertension, benign I10 [place] [address] [address] May, Lumbago with sciatica, unspecified side M54.40 [facility] [address] [facility] [id number] [address] [place] [address] Apr, [facility] [address] [address] Apr, Controlled type 2 diabetes mellitus with out complication, without long-term current use of insulin E11.9 ; Insect bite (nonvenomous), right ankle, initial encounter S90.561A ; Local infection of the skin and subcutaneous tissue, unspecified L08.9 ; Acute swimmer''s ear of left side H60.332 and BMI 45.0-49.9, adult Z68.42 [place] [address] [address] Apr, Lumbago with sciatica, unspecified side M54.40 [place] [address] [address] Mar, [place] [address] [address] Mar, Lumbago with sciatica, unspecified side M54.40 [place] [address] [address] Feb, Lumbago with sciatica, unspecified side M54.40 [place] [address] [address] Feb, BMI 45.0-49.9, adult Z68.42 and Obstruct jaida sleep apnea syndrome G47.33 [place] [address] [address] January, Lumbar neuritis M54.[address] [address] January, Lumbago with sciatica, unspecified side M54.40 [place] [address] [address] Dec, Controlled type 2 diabetes mellitus with out complication, without long-term current use of insulin E11.9 ; Erectile dysfunction due to diseases classified elsewhere N52.1 and Mood disorder F39 [place] [address] [address] Dec, Lumbago with sciatica, unspecified side M54.40 [place] [address] [address] Dec, Obstructive sleep apnea syndrome G47.[address] [address] Nov, Lumbago with sciatica, unspecified side M54.40 ; Hypertension, benign I10 and Mood disorder F39 [place] [address] [address] Nov, Other chronic pain G89.29 [place] [address] [address] Nov, Lumbago with sciatica, unspecified side M54.40 [facility] [address] [id number] Nov, Dental examination Z01.20 [facility] [address] [address] Oct, [facility] [address] [place] [address] Oct, Lumbago with sciatica, unspecified side M54.40 [facility] [address] [address] Oct, Lumbago with sciatica, unspecified side M54.40 [facility] [address] [address] Oct, [facility] [address] [address] Oct, [facility] [address] [id number] Oct, Dental examination Z01.20 [facility] [address] [address] Oct, [facility] [address] [address] Oct, Pain in right knee M25.561 [facility] [address] [address] Sep, [facility] [address] [address] Sep, Other chronic pain G89.29 [facility] [address] [address] Sep, Lumbago with sciatica, unspecified side M54.40 [facility] [address] [address] Sep, [facility] [address] [place] [id number] [place] [address] Sep, Viral URI J06.9 and BMI 45.0 -49.9, adult Z68.42 [facility] [address] [place] [id number] [place] [address] Aug, Foreign body hand S60.559A a nd BMI 45.0-49.9, adult Z68.42 [place] [address] [address] Aug, [place] [address] [address] Aug, Lumbago with sciatica, unspecified side M54.40 [place] [address] [address] Aug, Vertigo R42 ; Dysfunction of both eustac hian tubes H69.83 ; Low back pain M54.5 and Other chronic pain G89.29 [facility] [address] [place] [id number] [place] [address] Aug, Dizziness R42 and Acute bila teral otitis media H66.93 [place] [address] [address] Aug, Lumbago with sciatica, unspecified side M54.40 [facility] [address] [facility] [place] [id number] Jul, Dental examination Z01.20 [place] [address] [address] Jul, [place] [address] [address] Jul, [place] [address] [address] Jul, Dysfunction of both eustachian tubes H69 .83 [place] [address] [address] Jul, Controlled type 2 diabetes mellitus with out complication, without long-term current use of insulin E11.9 [facility] [address] [address] Jul, Controlled type 2 diabetes mellitus with out complication, without long-term current use of insulin E11.9 [facility] [address] [facility] [id number] [address] [place] [address] Jul, Dizziness R42 and BMI 40.0-4 4.9, adult Z68.41 [facility] [address] [address] Jul, Controlled type 2 diabetes mellitus with out complication, without long-term current use of insulin E11.9 [place] [address] [address] Jul, Lumbago with sciatica, unspecified side M54.40 [facility] [address] [id number] Jul, Dental examination Z01.20 [facility] [address] [address] Jun, [facility] [address] [id number] Jun, Dental examination Z01.20 [place] [address] [address] Jun, Controlled type 2 diabetes mellitus with out complication, without long-term current use of insulin E11.9 [facility] [address] [address] Jun, Lumbago with sciatica, unspecified side M54.40 [facility] [address] [id number] May, Dental examination Z01.20 [facility] [address] [address] May, Controlled type 2 diabetes mellitus with out complication, without long-term current use of insulin E11.9 [facility] [address] [id number] May, Dental examination Z01.20 [facility] [address] [address] 18 May, 2017 Bronchitis J40 ; Dry mouth R68.2 ; Non m orbid obesity E66.9 and Controlled type 2 diabetes mellitus without complication, without long-term current use of insulin E11.9 [facility] [address] [address] 16 May, 2017 Encounter for immunization Z 23 [place] [address] [address] 07 May, 2017 Lumbago with sciatica, unspecified side M54.40 [place] [address] [address] 05 May, 2017 [facility] [address] [id number] Apr, Dental examination Z01.20 [place] [address] [address] Apr, Lumbago with sciatica, unspecified side M54.40 [facility] [address] [address] Mar, Lumbago with sciatica, left side M54.42 [place] [address] [address] Mar, [place] [address] [address] Mar, Lumbar neuritis M54.16 [facility] [address] [address] Mar, [facility] [address] [id number] Mar, Dental examination Z01.20 [place] [address] [address] Mar, MELE (obstructive sleep apnea) G47.33 ; N europathy involving both lower extremities G57.93 and Frequent headaches R51 [place] [address] [address] Mar, Lumbago with sciatica, unspecified side M54.40 [place] [address] [address] Feb, Lumbago with sciatica, unspecified side M54.40 and Controlled type 2 diabetes mellitus without complication, without long-term current use of insulin E11.9 [place] [address] [address] 16 Jan, 2017 Hypertension, benign I10 and Bilateral l ow back pain with sciatica, sciatica laterality unspecified M54.40 [place] [address] [address] January, Hypertension, benign I10 ; Lumbago with sciatica, unspecified side M54.40 ; Other chronic pain G89.29 and Controlled type 2 diabetes mellitus without complication, without long-term current use of insulin E11.9 [place] [address] [address] January, Lumbar neuritis M54.16 [place] [address] [address] January, [place] [address] [address] Dec, Lumbago with sciatica, right side M54.41 and Lumbar neuritis M54.16 [place] [address] [address] Dec, Lumbar neuritis M54.16 [place] [address] [address] Dec, Lumbar neuritis M54.16 [place] [address] [address] Nov, Lumbar neuritis M54.16 ; Lumbago with sc iatica, right side M54.41 ; Controlled type 2 diabetes mellitus without complication, without long-term current use of insulin E11.9 and Rash and nonspecific skin eruption R21 [place] [address] [address] 09 Nov, 2016 Lumbar neuritis M54.16 and Poison miroslava L2 3.[address] [address] Oct, Lumbar neuritis M54.16 ; Coughing R05 an d Mood disorder F39 [address] [address] Sep, Lumbago with sciatica, right side M54.[address] [address] Sep, Adjustment disorder with disturbance of emotion F43.29 and Pain management R52 [address] [address] Sep, [place] [address] [address] Sep, [address] [address] Sep, Controlled type 2 diabetes mellitus with out complication, without long-term current use of insulin E11.9 and Lumbago with sciatica, unspecified side M54.[address] [address] Aug, Controlled type 2 diabetes mellitus with out complication, without long-term current use of insulin E11.9 ; Pain in right knee M25.561 ; Pain in left knee M25.562 ; Other chronic pain G89.29 ; Lumbago with sciatica, right side M54.41 ; Neck pain M54.2 and Encounter for immunization Z23 [place] [address] [address] Jul, [address] [address] Jul, Controlled type 2 diabetes mellitus with out complication, without long-term current use of insulin E11.9 [place] [address] [address] Jul, [place] [address] [address] Jul, [place] [address] [address] Jul, Lumbago with sciatica, left side M54.42 ; Lumbago with sciatica, right side M54.41 and Other chronic pain G89.29 [place] [address] [address] Jul, [place] [address] [address] Jul, [place] [address] [address] Jun, [place] [address] [address] Jun, Lumbago with sciatica, right side M54.41 and Other chronic pain G89.29 [place] [address] [address] Jun, Cervicalgia M54.2 ; Lumbago with sciatic a, unspecified side M54.40 and Other chronic pain G89.29 [place] [address] [address] 15 May, 2016 Pain in right knee M25.561 ; Pain in lef t knee M25.562 and Other chronic pain G89.29 [place] [address] [address] 14 May, 2016 [place] [address] [address] 05 Apr, 2016 Other chronic pain G89.29 and Pain in ri ght knee M25.561 [place] [address] [address] Apr, Pain in right knee M25.561 [place] [address] [address] Mar, [place] [address] [address] Mar, Mood disorder F39 and Controlled type 2 diabetes mellitus without complication, without long-term current use of insulin E11.9 [place] [address] [address] Mar, Pain in right knee M25.561 ; Pain in lef t knee M25.562 ; Other chronic pain G89.29 ; Obstructive sleep apnea syndrome G47.33 ; Mood disorder F39 and Controlled type 2 diabetes mellitus without complication, without long-term current use of insulin E11.9 [place] [address] [address] Mar, [facility] [address] [id number] Feb, Dental examination Z01.20 [place] [address] [address] Feb, [place] [address] [address] Feb, Osteoarthritis of right knee, unspecifie d osteoarthritis type M17.9 [place] [address] [address] January, [facility] [address] [id number] January, Dental examination Z01.20 [place] [address] [address] January, [facility] [address] [id number] January, Dental examination Z01.20 and Caries K02 .9 [place] [address] [address] Dec, Encounter for other preprocedural examin ation Z01.818 [facility] [address] [address] Dec, [facility] [address] [address] Dec, Knee pain M25.569 [facility] [address] [address] Dec, Pain in right knee M25.561 [facility] [address] [address] Dec, [facility] [address] [address] Dec, [facility] [address] [address] Dec, Encounter for immunization Z23 [facility] [address] [address] Dec, [facility] [address] [address] Dec, [facility] [address] [address] Nov, [facility] [address] [address] Nov, Hypertension, benign I10 ; Cervicalgia M 54.2 ; Pain in right knee M25.561 and Pain in left knee M25.562 [facility] [address] [address] Oct, [facility] [address] [address] Oct, [facility] [address] [address] 11 Oct, 2015 Osteoarthritis of both knees M17.0 [facility] [address] [address] Oct, [place] [address] [address] Oct, Low back pain M54.5 [place] [address] [address] Oct, Low back pain M54.5 ; Sciatica, unspecif ied side M54.30 ; Pain in right knee M25.561 ; Pain in left knee M25.562 ; Pain in right shoulder M25.511 and Pain in left shoulder M25.[address] [address] Oct, [address] [address] Sep, Pain in right hip M25.[address] [address] Sep, Acute upper respiratory infection, unspe cified J06.[address] [address] Aug, Acute upper respiratory infection, unspe cified J06.9 and Other viral agents as the cause of diseases classified elsewhere B97.[address] [address] Jul, Arthritis M19.[address] [address] Jun, Arthritis M19.90 ; Pain in right hip M25 .551 ; Pain in left hip M25.552 ; Bilateral low back pain with sciatica, sciatica laterality unspecified M54.40 ; Neck pain M54.2 ; Upper back pain M54.9 and Knee pain, unspecified laterality M25.[address] [address] May, Osteoarthritis of both knees 715.[address] [address] May, Rash 782.1 [facility] [address] [address] Apr, Lumbar strain 847.2 [facility] [address] [address] Apr, Rash 782.1 [facility] [address] [address] Mar, Rash 782.1 [facility] [address] [address] Feb, Rash 782.1 ; Hemorrhoids 455.6 and Const ipation 564.00 [facility] [address] [address] Feb, Osteoarthritis of both knees 715.96 [facility] [address] [address] January, [facility] [address] [address] Dec, [facility] [address] [address] Dec, [facility] [address] [address] Dec, [facility] [address] [address] Nov, [facility] [address] [address] Nov, [facility] [address] [address] Nov, [facility] [address] [address] Nov, [facility] [address] [address] Nov, [facility] [address] [address] Nov, [facility] [address] [id number] [place] [address] Oct, [facility] [address] [id number] [place] [address] Oct, [facility] [address] [id number] [place] [address] Oct, [facility] [address] [id number] [place] [address] Oct, [facility] [address] [id number] [place] [address] Oct, [facility] [address] [id number] [place] [address] Oct, [facility] [address] [id number] [place] [address] Oct, [facility] [address] [id number] [place] [address] Oct, [facility] [address] [id number] [place] [address] Oct, [facility] [address] [id number] [place] [address] Oct, [facility] [address] [id number] [place] [address] Oct, [facility] [address] [id number] [place] [address] Sep, [facility] [address] [id number] [place] [address] Sep, [facility] [address] [id number] [place] [address] Sep, [facility] [address] [id number] [place] [address] Sep, [facility] [address] [id number] [place] [address] Sep, [facility] [address] [id number] [place] [address] Sep, [facility] [address] [id number] [place] [address] Aug, [facility] [address] [id number] [place] [address] Aug, [facility] [address] [id number] [place] [address] Aug, [facility] [address] [id number] [place] [address] Aug, [facility] [address] [id number] [place] [address] Aug, [facility] [address] [id number] [place] [address] Aug, [facility] [address] [id number] [place] [address] Aug, [facility] [address] [id number] [place] [address] Aug, [facility] [address] [id number] [place] [address] Aug, [facility] [address] [id number] [place] [address] Aug, [facility] [address] [id number] [place] [address] Jul, [facility] [address] [id number] [place] [address] Jul, [facility] [address] [id number] [place] [address] Jul, [facility] [id number] [place] [address] Jul, [facility] [address] [id number] [place] [address] Jun, [facility] [address] [id number] [place] [address] Jun, [facility] [address] [facility] [id number] [place] [address] Jun, [facility] [address] [facility] [id number] [place] [address] Jun, [facility] [address] [id number] [place] [address] Jun, [facility] [address] [id number] [place] [address] Jun, [facility] [address] [facility] [id number] [place] [address] Jun, [facility] [address] [id number] [place] [address] Jun, [facility] [address] [id number] [place] [address] 24 May, 2014 [facility] [address] [id number] [place] [address] 24 May, 2013 [facility] [address] [id number] [place] [address] 19 May, 2013 [facility] [address] [id number] [place] [address] 19 May, 2014 [facility] [address] [id number] [place] [address] 15 May, 2013 [facility] [address] [id number] [place] [address] 15 May, 2013 [facility] [address] [id number] [place] [address] 15 May, 2013 [facility] [address] [id number] [place] [address] 15 May, 2014 [facility] [address] [id number] [place] [address] Apr, [facility] [address] [id number] [place] [address] Apr, [facility] [address] [id number] [place] [address] Apr, [facility] [address] [facility] [id number] [place] [address] Apr, [facility] [address] [facility] [id number] [place] [address] Apr, [facility] [address] [id number] [place] [address] Apr, [facility] [address] [id number] [place] [address] Apr, [facility] [address] [facility] [id number] [place] [address] Apr, [facility] [address] [id number] [place] [address] Apr, [facility] [address] [id number] [place] [address] Apr, [facility] [address] [id number] [place] [address] Apr, [facility] [address] [id number] [place] [address] Apr, [facility] [address] [id number] [place] [address] Mar, [facility] [address] [id number] [place] [address] Mar, [facility] [address] [id number] [place] [address] Mar, [facility] [address] [id number] [place] [address] Mar, [facility] [address] [id number] [place] [address] Mar, [facility] [address] [id number] [place] [address] Mar, [facility] [address] [id number] [place] [address] Feb, [facility] [address] [facility] [id number] [place] [address] 18 Feb, 2014 [facility] [address] [facility] [id number] [place] [address] Feb, [facility] [address] [facility] [id number] [place] [address] Feb, [facility] [address] [id number] [place] [address] Feb, [facility] [address] [facility] [id number] [place] [address] Feb, [facility] [address] [id number] [place] [address] Feb, [facility] [address] [id number] [place] [address] Feb, [facility] [address] [id number] [place] [address] Feb, [facility] [address] [id number] [place] [address] Feb, [facility] [address] [id number] [place] [address] Feb, [facility] [address] [id number] [place] [address] Feb, [facility] [address] [id number] [place] [address] Feb, [facility] [address] [id number] [place] [address] Feb, [facility] [address] [id number] [place] [address] January, [facility] [address] [id number] [place] [address] January, [facility] [address] [id number] [place] [address] January, [facility] [address] [id number] [place] [address] January, [facility] [address] [id number] [place] [address] January, [facility] [address] [id number] [place] [address] January, [facility] [address] [id number] [place] [address] Dec, [facility] [address] [id number] [place] [address] Dec, [facility] [address] [facility] [id number] [place] [address] Dec, [facility] [address] [id number] [place] [address] Dec, [facility] [address] [id number] [place] [address] Dec, [facility] [address] [id number] [place] [address] Dec, [facility] [address] [id number] [place] [address] Dec, [facility] [address] [id number] [place] [address] Dec, [facility] [address] [id number] [place] [address] Nov, [facility] [address] [id number] [place] [address] Nov, [facility] [address] [id number] [place] [address] Nov, [facility] [address] [id number] [place] [address] Nov, [facility] [address] [id number] [place] [address] Nov, [facility] [address] [id number] [place] [address] Nov, [facility] [address] [id number] [place] [address] Nov, [facility] [address] [facility] [id number] [place] [address] Nov, [facility] [address] [facility] [id number] [place] [address] Oct, [facility] [address] [id number] [place] [address] Oct, [facility] [address] [facility] [id number] [place] [address] Oct, [facility] [address] [facility] [id number] [place] [address] Oct, [facility] [address] [id number] [place] [address] Oct, [facility] [address] [id number] [place] [address] Oct, [facility] [address] [id number] [place] [address] Oct, [facility] [address] [id number] [place] [address] Oct, [facility] [address] [id number] [place] [address] Oct, [facility] [address] [id number] [place] [address] Oct, [facility] [address] [id number] [place] [address] Sep, [facility] [address] [facility] [id number] [place] [address] Sep, [facility] [address] [id number] [place] [address] Sep, [facility] [address] [id number] [place] [address] Sep, [facility] [address] [id number] [place] [address] Sep, [facility] [address] [id number] [place] [address] Sep, [facility] [address] [id number] [place] [address] Aug, [facility] [address] [id number] [place] [address] Aug, [facility] [address] [id number] [place] [address] Aug, [facility] [address] [id number] [place] [address] Aug, [facility] [address] [id number] [place] [address] Aug, [facility] [address] [id number] [place] [address] Aug, [facility] [id number] [place] [address] Aug, [facility] [address] [id number] [place] [address] Aug, [facility] [address] [id number] [place] [address] Jul, [facility] [address] [id number] [place] [address] Jul, [facility] [id number] [place] [address] Jul, [facility] [address] [id number] [place] [address] Jul, [facility] [address] [id number] [place] [address] Jul, [facility] [address] [id number] [place] [address] Jul, [facility] [address] [id number] [place] [address] Jun, [facility] [address] [id number] [place] [address] Jun, [facility] [address] [facility] [id number] [place] [address] Jun, [facility] [address] [facility] [id number] [place] [address] May, [facility] [address] [id number] [place] [address] May, [facility] [address] [id number] [place] [address] May, [facility] [address] [id number] [place] [address] Apr, [facility] [address] [id number] [place] [address] Apr, [facility] [address] [id number] [place] [address] Apr, [facility] [address] [id number] [place] [address] Apr, [facility] [address] [id number] [place] [address] Mar, [facility] [address] [id number] [place] [address] Mar, [facility] [address] [id number] [place] [address] Mar, [facility] [address] [id number] [place] [address] Mar, [facility] [address] [id number] [place] [address] Feb, [facility] [address] [id number] [place] [address] Feb, [facility] [address] [id number] [place] [address] Feb, [facility] [address] [id number] [place] [address] Feb, [facility] [address] [id number] [place] [address] January, [facility] [address] [id number] [place] [address] January, [facility] [address] [id number] [place] [address] January, [facility] [address] [id number] [place] [address] Nov, [facility] [address] [id number] [place] [address] Nov, [facility] [address] [id number] [place] [address] Oct, [facility] [address] [id number] [place] [address] Oct, [facility] [address] [id number] [place] [address] Oct, [facility] [address] [id number] [place] [address] Oct, [facility] [address] [id number] [place] [address] Sep, [facility] [address] [id number] [place] [address] Sep, [facility] [address] [id number] [place] [address] Sep, [facility] [address] [id number] [place] [address] Aug, [facility] [address] [id number] [place] [address] Aug, [facility] [address] [id number] [place] [address] Aug, [facility] [address] [id number] [place] [address] Aug, [facility] [address] [id number] [place] [address] Aug, [facility] [address] [id number] [place] [address] Aug, [facility] [address] [id number] [place] [address] Jul, [facility] [address] [id number] [place] [address] Jul, [facility] [address] [id number] [place] [address] Jun, [facility] [address] [facility] [id number] [place] [address] Jun, [facility] [address] [id number] [place] [address] Jun, [facility] [address] [id number] [place] [address] Apr, [facility] [address] [id number] [place] [address] Apr, [facility] [address] [id number] [place] [address] Mar, [facility] [address] [id number] [place] [address] Mar, [facility] [address] [id number] [place] [address] Mar, [facility] [address] [id number] [place] [address] Mar, [facility] [address] [id number] [place] [address] Feb, [facility] [address] [id number] [place] [address] Feb, [facility] [address] [id number] [place] [address] Feb, [facility] [address] [id number] [place] [address] January, [facility] [address] [id number] [place] [address] January, [facility] [address] [id number] [place] [address] January, [facility] [address] [id number] [place] [address] January, [facility] [address] [id number] [place] [address] Dec, [facility] [address] [id number] [place] [address] Dec, [facility] [address] [id number] [place] [address] Nov, [facility] [address] [id number] [place] [address] Nov, [facility] [id number] [place] [address] Oct, [facility] [id number] [place] [address] Oct, [facility] [address] [id number] [place] [address] Sep, [facility] [address] [id number] [place] [address] Sep, [facility] [address] [id number] [place] [address] Sep, [facility] [address] [id number] [place] [address] Sep, [facility] [address] [id number] [place] [address] Aug, [facility] [id number] [place] [address] Aug, [facility] [address] [id number] [place] [address] Aug, [facility] [id number] [place] [address] Jul, [facility] [address] [id number] [place] [address] Aug, [facility] [address] [id number] [place] [address] Aug, [facility] [address] [id number] [place] [address] Aug, [facility] [address] [id number] [place] [address] Aug, [facility] [address] [id number] [place] [address] Jul, [facility] [id number] [place] [address] Jul, [facility] [address] [id number] [place] [address] Jul, [facility] [id number] [place] [address] Jun, [facility] [address] [id number] [place] [address] Jun, [facility] [address] [id number] [place] [address] Jun, [facility] [address] [id number] [place] [address] Apr, [facility] [address] [id number] [place] [address] Mar, IMMUNIZATIONS No Known Immunizations SOCIAL HISTORY [...]
--- OUTSIDE RECORDS SUMMARY | 2020-03-18 15:17 | XMS REPORT ---
Author Author George WAYNE Organization [facility] Address [address] [place] [address] Care Team Providers Care Piling Setter Name Role Phone REYNA WAYNE Unavailable PROBLEMS Type Condition ICD9-CM Code DDN69-MK Code Onset Dates Condition S tatus SNOMED Code Problem Hypertension, benign I10 Active 42090412 Problem Other chronic pain G89.29 Active 8 2076490 Problem Lumbago with sciatica, unspecified side M54.40 Active 541646180 Problem Controlled type 2 diabetes m ellitus without complication, without long- term current use of insulin E11.9 Active 318801889 Problem Lumbago with sciatica, right side M54.41 Active 153786733 Problem Adjustment disorder with disturbance of emotion F4 3.29 Active 75358921 Problem MELE (obstructive sleep apnea) G47.33 Active 05432967 Problem Non morbid obesity E66.9 Active 4 31096897 Problem Hammer toe of left foot M20.42 Active 988091146 Problem Mood disorder F39 Active 342781 05 Problem Deformity of left foot M21.962 Active 347781080 Problem Lumbago with sciatica, left side M54.42 Active 446525858 Problem Erectile dysfunction due to diseases classified elsewhere N52.1 Active 006770766 Problem Obstructive sleep apnea syndrome G47.33 Active 02785435 Problem Type 2 diabetes mellitus wit h diabetic neuropathy, without long-term current use of insulin E11.40 Active 34916 006 Problem Essential hypertension I10 Active 08641119 ALLERGIES No Information ENCOUNTERS Encounter Location Date Diagnosis [facility] [address] [id number] [place] [address] Sep, [facility] [address] [facility] [place] [address] Aug, [facility] [address] [facility] [place] [address] Jul, Lumbago with sciatica, unspecified side M54.40 [facility] [address] [address] Jun, Lumbago with sciatica, unspecified side M54.40 [facility] [address] [address] Jun, URI, acute J06.9 [facility] [address] [address] May, Lumbago with sciatica, unspecified side M54.40 [place] [address] [address] May, [place] [address] [address] May, Type 2 diabetes mellitus with diabetic n europathy, without long-term current use of insulin E11.40 and Hammer toe of left foot M20.42 [place] [address] [address] May, [place] [address] [address] May, [place] [address] [address] May, [place] [address] [address] Apr, Lumbago with sciatica, unspecified side M54.40 [place] [address] [address] Apr, [facility] [address] [address] Apr, [address] [place] [address] Apr, Hammer toe of left foot M20. 42 ; Chest pain R07.9 ; Preoperative examination Z01.818 and Morbid obesity E66.01 [place] [address] [address] Apr, Morbid obesity E66.01 ; Bronchitis J40 a nd High risk medications (not anticoagulants) long-term use Z79.899 [place] [address] [address] Apr, Lumbago with sciatica, unspecified side M54.40 [place] [address] [address] Apr, [place] [address] [address] Mar, Lumbar neuritis M54.16 and Morbid obesit y E66.01 [place] [address] [address] Mar, [place] [address] [address] Mar, [place] [address] [address] Mar, Lumbago with sciatica, unspecified side M54.40 [place] [address] [address] Mar, Morbid obesity E66.01 ; Coughing R05 ; 2 + pitting edema R60.9 and Controlled type 2 diabetes mellitus without complication, without long-term current use of insulin E11.9 [place] [address] [address] Feb, [place] [address] [address] Feb, Lumbago with sciatica, unspecified side M54.40 [place] [address] [address] Feb, [place] [address] [address] Feb, Controlled type 2 diabetes mellitus with out complication, without long-term current use of insulin E11.9 and Morbid obesity E66.01 [place] [address] [address] January, Deformity of left foot M21.962 [facility] [address] [address] January, [facility] [address] [address] January, Lumbago with sciatica, unspecified side M54.40 [place] [address] [address] January, [place] [address] [address] January, Lumbago with sciatica, unspecified side M54.40 [place] [address] [address] January, [place] [address] [address] January, Acute right-sided thoracic back pain M54 .6 [place] [address] [address] January, Acute right-sided thoracic back pain M54 .6 [place] [address] [address] January, Chest pain, unspecified type R07.9 ; Mor bid obesity E66.01 and Scabies B86 [place] [address] [address] Dec, Lumbago with sciatica, unspecified side M54.40 [place] [address] [address] Dec, Toenail fungus B35.1 [place] [address] [address] Dec, Toenail fungus B35.1 [place] [address] [address] Dec, Acute right-sided thoracic back pain M54 .6 [place] [address] [address] Dec, Lumbago with sciatica, unspecified side M54.40 [facility] [address] [address] Nov, Hammer toe of left foot M20.42 ; Deformi ty of left foot M21.962 and Type 2 diabetes mellitus with diabetic neuropathy, without long-term current use of insulin E11.40 [facility] [address] [facility] [id number] [address] [place] [address] Nov, Acute right-sided thoracic b ack pain M54.6 ; Morbid obesity E66.01 and Rt flank pain R10.9 [place] [address] [address] Nov, Lumbago with sciatica, unspecified side M54.40 [place] [address] [address] Oct, Lumbago with sciatica, unspecified side M54.40 [place] [address] [address] Sep, Lumbago with sciatica, unspecified side M54.40 [place] [address] [address] Sep, [place] [address] [address] Sep, BMI 40.0-44.9, adult Z68.41 ; Lumbago wi th sciatica, left side M54.42 ; Lumbago with sciatica, right side M54.41 and Other chronic pain G89.29 [place] [address] [address] Aug, Lumbago with sciatica, unspecified side M54.40 [place] [address] [address] Aug, Type 2 diabetes mellitus with diabetic n europathy, without long-term current use of insulin E11.40 ; Hammer toe of left foot M20.42 ; Hypertension, benign I10 and Frequent headaches R51 [place] [address] [address] Jul, Lumbago with sciatica, unspecified side M54.40 [place] [address] [place] [address] Jul, [place] [address] [place] [address] Jul, Essential hypertension I10 and Controlle d type 2 diabetes mellitus without complication, without long-term current use of insulin E11.9 [place] [address] [address] Jul, Essential hypertension I10 ; Controlled type 2 diabetes mellitus without complication, without long-term current use of insulin E11.9 and BMI 40.0-44.9, adult Z68.41 [place] [address] [address] Jul, Dysfunction of left eustachian tube H69. 82 [place] [address] [address] Jul, Lumbago with sciatica, unspecified side M54.40 [facility] [address] [place] [id number] [place] [id number] Jun, Dental examination Z01.20 [place] [address] [address] Jun, Lumbago with sciatica, unspecified side M54.40 and Encounter for immunization Z23 [place] [address] [address] Jun, Dysfunction of left eustachian tube H69. [address] [facility] [address] [id number] [id number] Jun, Dental examination Z01.20 [facility] [address] [place] [id number] [place] [address] Jun, Other chronic pain G89.29 [facility] [address] [facility] [place] [id number] Jun, Dental examination Z01.20 [facility] [address] [address] Jun, [facility] [address] [address] Jun, Bronchitis J40 ; Dysfunction of left eus tachian tube H69.82 and BMI 45.0-49.9, adult Z68.42 [place] [address] [address] Jun, Lumbago with sciatica, unspecified side M54.40 [place] [address] [address] May, Type 2 diabetes mellitus with diabetic n europathy, without long-term current use of insulin E11.40 and Hypertension, benign I10 [place] [address] [address] May, Lumbago with sciatica, unspecified side M54.40 [facility] [address] [facility] [id number] [address] [place] [address] Apr, [facility] [address] [address] Apr, Controlled type 2 diabetes mellitus with out complication, without long-term current use of insulin E11.9 ; Insect bite (nonvenomous), right ankle, initial encounter S90.561A ; Local infection of the skin and subcutaneous tissue, unspecified L08.9 ; Acute swimmer''s ear of left side H60.332 and BMI 45.0-49.9, adult Z68.42 [place] [address] [address] Apr, Lumbago with sciatica, unspecified side M54.40 [place] [address] [address] Mar, [place] [address] [address] Mar, Lumbago with sciatica, unspecified side M54.40 [place] [address] [address] Feb, Lumbago with sciatica, unspecified side M54.40 [place] [address] [address] Feb, BMI 45.0-49.9, adult Z68.42 and Obstruct jaida sleep apnea syndrome G47.33 [place] [address] [address] January, Lumbar neuritis M54.[address] [address] January, Lumbago with sciatica, unspecified side M54.40 [place] [address] [address] Dec, Controlled type 2 diabetes mellitus with out complication, without long-term current use of insulin E11.9 ; Erectile dysfunction due to diseases classified elsewhere N52.1 and Mood disorder F39 [place] [address] [address] Dec, Lumbago with sciatica, unspecified side M54.40 [place] [address] [address] Dec, Obstructive sleep apnea syndrome G47.[address] [address] Nov, Lumbago with sciatica, unspecified side M54.40 ; Hypertension, benign I10 and Mood disorder F39 [place] [address] [address] Nov, Other chronic pain G89.29 [place] [address] [address] Nov, Lumbago with sciatica, unspecified side M54.40 [facility] [address] [id number] Nov, Dental examination Z01.20 [facility] [address] [address] Oct, [facility] [address] [place] [id number] Oct, Lumbago with sciatica, unspecified side M54.40 [facility] [address] [address] Oct, Lumbago with sciatica, unspecified side M54.40 [facility] [address] [address] Oct, [facility] [address] [address] Oct, [facility] [address] [id number] Oct, Dental examination Z01.20 [facility] [address] [address] Oct, [facility] [address] [address] Oct, Pain in right knee M25.561 [facility] [address] [address] Sep, [facility] [address] [address] Sep, Other chronic pain G89.29 [facility] [address] [address] Sep, Lumbago with sciatica, unspecified side M54.40 [facility] [address] [address] Sep, [facility] [address] [place] [id number] [place] [address] Sep, Viral URI J06.9 and BMI 45.0 -49.9, adult Z68.42 [facility] [address] [place] [id number] [place] [address] Aug, Foreign body hand S60.559A a nd BMI 45.0-49.9, adult Z68.42 [place] [address] [address] Aug, [place] [address] [address] Aug, Lumbago with sciatica, unspecified side M54.40 [place] [address] [address] Aug, Vertigo R42 ; Dysfunction of both eustac hian tubes H69.83 ; Low back pain M54.5 and Other chronic pain G89.29 [facility] [address] [place] [id number] [place] [address] Aug, Dizziness R42 and Acute bila teral otitis media H66.93 [place] [address] [address] Aug, Lumbago with sciatica, unspecified side M54.40 [facility] [address] [facility] [place] [id number] Jul, Dental examination Z01.20 [place] [address] [address] Jul, [place] [address] [address] Jul, [place] [address] [address] Jul, Dysfunction of both eustachian tubes H69 .83 [place] [address] [address] Jul, Controlled type 2 diabetes mellitus with out complication, without long-term current use of insulin E11.9 [facility] [address] [address] Jul, Controlled type 2 diabetes mellitus with out complication, without long-term current use of insulin E11.9 [facility] [address] [facility] [id number] [address] [place] [address] Jul, Dizziness R42 and BMI 40.0-4 4.9, adult Z68.41 [facility] [address] [address] Jul, Controlled type 2 diabetes mellitus with out complication, without long-term current use of insulin E11.9 [place] [address] [address] Jul, Lumbago with sciatica, unspecified side M54.40 [facility] [address] [id number] Jul, Dental examination Z01.20 [facility] [address] [address] Jun, [facility] [address] [id number] Jun, Dental examination Z01.20 [place] [address] [address] Jun, Controlled type 2 diabetes mellitus with out complication, without long-term current use of insulin E11.9 [facility] [address] [address] Jun, Lumbago with sciatica, unspecified side M54.40 [facility] [address] [id number] May, Dental examination Z01.20 [facility] [address] [address] May, Controlled type 2 diabetes mellitus with out complication, without long-term current use of insulin E11.9 [facility] [address] [id number] May, Dental examination Z01.20 [facility] [address] [address] 18 May, 2017 Bronchitis J40 ; Dry mouth R68.2 ; Non m orbid obesity E66.9 and Controlled type 2 diabetes mellitus without complication, without long-term current use of insulin E11.9 [facility] [address] [address] 16 May, 2017 Encounter for immunization Z 23 [place] [address] [address] 07 May, 2017 Lumbago with sciatica, unspecified side M54.40 [place] [address] [address] 05 May, 2017 [facility] [address] [id number] Apr, Dental examination Z01.20 [place] [address] [address] Apr, Lumbago with sciatica, unspecified side M54.40 [facility] [address] [address] Mar, Lumbago with sciatica, left side M54.42 [place] [address] [address] Mar, [place] [address] [address] Mar, Lumbar neuritis M54.16 [facility] [address] [address] Mar, [facility] [address] [id number] Mar, Dental examination Z01.20 [place] [address] [address] Mar, MELE (obstructive sleep apnea) G47.33 ; N europathy involving both lower extremities G57.93 and Frequent headaches R51 [place] [address] [address] Mar, Lumbago with sciatica, unspecified side M54.40 [place] [address] [address] Feb, Lumbago with sciatica, unspecified side M54.40 and Controlled type 2 diabetes mellitus without complication, without long-term current use of insulin E11.9 [place] [address] [address] 16 Jan, 2017 Hypertension, benign I10 and Bilateral l ow back pain with sciatica, sciatica laterality unspecified M54.40 [place] [address] [address] January, Hypertension, benign I10 ; Lumbago with sciatica, unspecified side M54.40 ; Other chronic pain G89.29 and Controlled type 2 diabetes mellitus without complication, without long-term current use of insulin E11.9 [place] [address] [address] January, Lumbar neuritis M54.16 [place] [address] [address] January, [place] [address] [address] Dec, Lumbago with sciatica, right side M54.41 and Lumbar neuritis M54.16 [place] [address] [address] Dec, Lumbar neuritis M54.16 [place] [address] [address] Dec, Lumbar neuritis M54.16 [place] [address] [address] Nov, Lumbar neuritis M54.16 ; Lumbago with sc iatica, right side M54.41 ; Controlled type 2 diabetes mellitus without complication, without long-term current use of insulin E11.9 and Rash and nonspecific skin eruption R21 [place] [address] [address] 09 Nov, 2016 Lumbar neuritis M54.16 and Poison miroslava L2 3.[address] [address] Oct, Lumbar neuritis M54.16 ; Coughing R05 an d Mood disorder F39 [address] [address] Sep, Lumbago with sciatica, right side M54.[address] [address] Sep, Adjustment disorder with disturbance of emotion F43.29 and Pain management R52 [address] [address] Sep, [place] [address] [address] Sep, [address] [address] Sep, Controlled type 2 diabetes mellitus with out complication, without long-term current use of insulin E11.9 and Lumbago with sciatica, unspecified side M54.[address] [address] Aug, Controlled type 2 diabetes mellitus with out complication, without long-term current use of insulin E11.9 ; Pain in right knee M25.561 ; Pain in left knee M25.562 ; Other chronic pain G89.29 ; Lumbago with sciatica, right side M54.41 ; Neck pain M54.2 and Encounter for immunization Z23 [place] [address] [address] Jul, [address] [address] Jul, Controlled type 2 diabetes mellitus with out complication, without long-term current use of insulin E11.9 [place] [address] [address] Jul, [place] [address] [address] Jul, [place] [address] [address] Jul, Lumbago with sciatica, left side M54.42 ; Lumbago with sciatica, right side M54.41 and Other chronic pain G89.29 [place] [address] [address] Jul, [place] [address] [address] Jul, [place] [address] [address] Jun, [place] [address] [address] Jun, Lumbago with sciatica, right side M54.41 and Other chronic pain G89.29 [place] [address] [address] Jun, Cervicalgia M54.2 ; Lumbago with sciatic a, unspecified side M54.40 and Other chronic pain G89.29 [place] [address] [address] 15 May, 2016 Pain in right knee M25.561 ; Pain in lef t knee M25.562 and Other chronic pain G89.29 [place] [address] [address] 14 May, 2016 [place] [address] [address] 05 Apr, 2016 Other chronic pain G89.29 and Pain in ri ght knee M25.561 [place] [address] [address] Apr, Pain in right knee M25.561 [place] [address] [address] Mar, [place] [address] [address] Mar, Mood disorder F39 and Controlled type 2 diabetes mellitus without complication, without long-term current use of insulin E11.9 [place] [address] [address] Mar, Pain in right knee M25.561 ; Pain in lef t knee M25.562 ; Other chronic pain G89.29 ; Obstructive sleep apnea syndrome G47.33 ; Mood disorder F39 and Controlled type 2 diabetes mellitus without complication, without long-term current use of insulin E11.9 [place] [address] [address] Mar, [facility] [address] [id number] Feb, Dental examination Z01.20 [place] [address] [address] Feb, [place] [address] [address] Feb, Osteoarthritis of right knee, unspecifie d osteoarthritis type M17.9 [place] [address] [address] January, [facility] [address] [id number] January, Dental examination Z01.20 [place] [address] [address] January, [facility] [address] [id number] January, Dental examination Z01.20 and Caries K02 .9 [place] [address] [address] Dec, Encounter for other preprocedural examin ation Z01.818 [facility] [address] [address] Dec, [facility] [address] [address] Dec, Knee pain M25.569 [facility] [address] [address] Dec, Pain in right knee M25.561 [facility] [address] [address] Dec, [facility] [address] [address] Dec, [facility] [address] [address] Dec, Encounter for immunization Z23 [facility] [address] [address] Dec, [facility] [address] [address] Dec, [facility] [address] [address] Nov, [facility] [address] [address] Nov, Hypertension, benign I10 ; Cervicalgia M 54.2 ; Pain in right knee M25.561 and Pain in left knee M25.562 [facility] [address] [address] Oct, [facility] [address] [address] Oct, [facility] [address] [address] 11 Oct, 2015 Osteoarthritis of both knees M17.0 [facility] [address] [address] Oct, [place] [address] [address] Oct, Low back pain M54.5 [place] [address] [address] Oct, Low back pain M54.5 ; Sciatica, unspecif ied side M54.30 ; Pain in right knee M25.561 ; Pain in left knee M25.562 ; Pain in right shoulder M25.511 and Pain in left shoulder M25.[address] [address] Oct, [address] [address] Sep, Pain in right hip M25.[address] [address] Sep, Acute upper respiratory infection, unspe cified J06.[address] [address] Aug, Acute upper respiratory infection, unspe cified J06.9 and Other viral agents as the cause of diseases classified elsewhere B97.[address] [address] Jul, Arthritis M19.[address] [address] Jun, Arthritis M19.90 ; Pain in right hip M25 .551 ; Pain in left hip M25.552 ; Bilateral low back pain with sciatica, sciatica laterality unspecified M54.40 ; Neck pain M54.2 ; Upper back pain M54.9 and Knee pain, unspecified laterality M25.[address] [address] May, Osteoarthritis of both knees 715.96 [address] [address] May, Rash 782.1 [facility] [address] [address] Apr, Lumbar strain 847.2 [facility] [address] [address] Apr, Rash 782.1 [facility] [address] [address] Mar, Rash 782.1 [facility] [address] [address] Feb, Rash 782.1 ; Hemorrhoids 455.6 and Const ipation 564.00 [facility] [address] [address] Feb, Osteoarthritis of both knees 715.96 [facility] [address] [address] January, [facility] [address] [address] Dec, [facility] [address] [address] Dec, [facility] [address] [address] Dec, [facility] [address] [address] Nov, [facility] [address] [address] Nov, [facility] [address] [address] Nov, [facility] [address] [address] Nov, [facility] [address] [address] Nov, [facility] [address] [address] Nov, [facility] [address] [id number] [place] [address] Oct, [facility] [address] [id number] [place] [address] Oct, [facility] [address] [id number] [place] [address] Oct, [facility] [address] [id number] [place] [address] Oct, [facility] [address] [id number] [place] [address] Oct, [facility] [address] [id number] [place] [address] Oct, [facility] [address] [id number] [place] [address] Oct, [facility] [address] [id number] [place] [address] Oct, [facility] [address] [id number] [place] [address] Oct, [facility] [address] [id number] [place] [address] Oct, [facility] [address] [id number] [place] [address] Oct, [facility] [address] [id number] [place] [address] Sep, [facility] [address] [id number] [place] [address] Sep, [facility] [address] [id number] [place] [address] Sep, [facility] [address] [id number] [place] [address] Sep, [facility] [address] [id number] [place] [address] Sep, [facility] [address] [id number] [place] [address] Sep, [facility] [address] [id number] [place] [address] Aug, [facility] [address] [id number] [place] [address] Aug, [facility] [address] [id number] [place] [address] Aug, [facility] [address] [id number] [place] [address] Aug, [facility] [address] [id number] [place] [address] Aug, [facility] [address] [id number] [place] [address] Aug, [facility] [address] [id number] [place] [address] Aug, [facility] [address] [id number] [place] [address] Aug, [facility] [address] [id number] [place] [address] Aug, [facility] [address] [id number] [place] [address] Aug, [facility] [address] [id number] [place] [address] Jul, [facility] [address] [id number] [place] [address] Jul, [facility] [address] [id number] [place] [address] Jul, [facility] [id number] [place] [address] Jul, [facility] [address] [id number] [place] [address] Jun, [facility] [address] [id number] [place] [address] Jun, [facility] [address] [facility] [id number] [place] [address] Jun, [facility] [address] [facility] [id number] [place] [address] Jun, [facility] [address] [id number] [place] [address] Jun, [facility] [address] [id number] [place] [address] Jun, [facility] [address] [facility] [id number] [place] [address] Jun, [facility] [address] [id number] [place] [address] Jun, [facility] [address] [id number] [place] [address] 24 May, 2014 [facility] [address] [id number] [place] [address] 24 May, 2013 [facility] [address] [id number] [place] [address] 19 May, 2013 [facility] [address] [id number] [place] [address] 19 May, 2014 [facility] [address] [id number] [place] [address] 15 May, 2013 [facility] [address] [id number] [place] [address] 15 May, 2013 [facility] [address] [id number] [place] [address] 15 May, 2013 [facility] [address] [id number] [place] [address] 15 May, 2014 [facility] [address] [id number] [place] [address] Apr, [facility] [address] [id number] [place] [address] Apr, [facility] [address] [id number] [place] [address] Apr, [facility] [address] [facility] [id number] [place] [address] Apr, [facility] [address] [facility] [id number] [place] [address] Apr, [facility] [address] [id number] [place] [address] Apr, [facility] [address] [id number] [place] [address] Apr, [facility] [address] [facility] [id number] [place] [address] Apr, [facility] [address] [id number] [place] [address] Apr, [facility] [address] [id number] [place] [address] Apr, [facility] [address] [id number] [place] [address] Apr, [facility] [address] [id number] [place] [address] Apr, [facility] [address] [id number] [place] [address] Mar, [facility] [address] [id number] [place] [address] Mar, [facility] [address] [id number] [place] [address] Mar, [facility] [address] [id number] [place] [address] Mar, [facility] [address] [id number] [place] [address] Mar, [facility] [address] [id number] [place] [address] Mar, [facility] [address] [id number] [place] [address] Feb, [facility] [address] [facility] [id number] [place] [address] 18 Feb, 2014 [facility] [address] [facility] [id number] [place] [address] Feb, [facility] [address] [facility] [id number] [place] [address] Feb, [facility] [address] [id number] [place] [address] Feb, [facility] [address] [facility] [id number] [place] [address] Feb, [facility] [address] [id number] [place] [address] Feb, [facility] [address] [id number] [place] [address] Feb, [facility] [address] [id number] [place] [address] Feb, [facility] [address] [id number] [place] [address] Feb, [facility] [address] [id number] [place] [address] Feb, [facility] [address] [id number] [place] [address] Feb, [facility] [address] [id number] [place] [address] Feb, [facility] [address] [id number] [place] [address] Feb, [facility] [address] [id number] [place] [address] January, [facility] [address] [id number] [place] [address] January, [facility] [address] [id number] [place] [address] January, [facility] [address] [id number] [place] [address] January, [facility] [address] [id number] [place] [address] January, [facility] [address] [id number] [place] [address] January, [facility] [address] [id number] [place] [address] Dec, [facility] [address] [id number] [place] [address] Dec, [facility] [address] [facility] [id number] [place] [address] Dec, [facility] [address] [id number] [place] [address] Dec, [facility] [address] [id number] [place] [address] Dec, [facility] [address] [id number] [place] [address] Dec, [facility] [address] [id number] [place] [address] Dec, [facility] [address] [id number] [place] [address] Dec, [facility] [address] [id number] [place] [address] Nov, [facility] [address] [id number] [place] [address] Nov, [facility] [address] [id number] [place] [address] Nov, [facility] [address] [id number] [place] [address] Nov, [facility] [address] [id number] [place] [address] Nov, [facility] [address] [id number] [place] [address] Nov, [facility] [address] [id number] [place] [address] Nov, [facility] [address] [facility] [id number] [place] [address] Nov, [facility] [address] [facility] [id number] [place] [address] Oct, [facility] [address] [id number] [place] [address] Oct, [facility] [address] [facility] [id number] [place] [address] Oct, [facility] [address] [facility] [id number] [place] [address] Oct, [facility] [address] [id number] [place] [address] Oct, [facility] [address] [id number] [place] [address] Oct, [facility] [address] [id number] [place] [address] Oct, [facility] [address] [id number] [place] [address] Oct, [facility] [address] [id number] [place] [address] Oct, [facility] [address] [id number] [place] [address] Oct, [facility] [address] [id number] [place] [address] Sep, [facility] [address] [facility] [id number] [place] [address] Sep, [facility] [address] [id number] [place] [address] Sep, [facility] [address] [id number] [place] [address] Sep, [facility] [address] [id number] [place] [address] Sep, [facility] [address] [id number] [place] [address] Sep, [facility] [address] [id number] [place] [address] Aug, [facility] [address] [id number] [place] [address] Aug, [facility] [address] [id number] [place] [address] Aug, [facility] [address] [id number] [place] [address] Aug, [facility] [address] [id number] [place] [address] Aug, [facility] [address] [id number] [place] [address] Aug, [facility] [id number] [place] [address] Aug, [facility] [address] [id number] [place] [address] Aug, [facility] [address] [id number] [place] [address] Jul, [facility] [address] [id number] [place] [address] Jul, [facility] [id number] [place] [address] Jul, [facility] [address] [id number] [place] [address] Jul, [facility] [address] [id number] [place] [address] Jul, [facility] [address] [id number] [place] [address] Jul, [facility] [address] [id number] [place] [address] Jun, [facility] [address] [id number] [place] [address] Jun, [facility] [address] [facility] [id number] [place] [address] Jun, [facility] [address] [facility] [id number] [place] [address] May, [facility] [address] [id number] [place] [address] May, [facility] [address] [id number] [place] [address] May, [facility] [address] [id number] [place] [address] Apr, [facility] [address] [id number] [place] [address] Apr, [facility] [address] [id number] [place] [address] Apr, [facility] [address] [id number] [place] [address] Apr, [facility] [address] [id number] [place] [address] Mar, [facility] [address] [id number] [place] [address] Mar, [facility] [address] [id number] [place] [address] Mar, [facility] [address] [id number] [place] [address] Mar, [facility] [address] [id number] [place] [address] Feb, [facility] [address] [id number] [place] [address] Feb, [facility] [address] [id number] [place] [address] Feb, [facility] [address] [id number] [place] [address] Feb, [facility] [address] [id number] [place] [address] January, [facility] [address] [id number] [place] [address] January, [facility] [address] [id number] [place] [address] January, [facility] [address] [id number] [place] [address] Nov, [facility] [address] [id number] [place] [address] Nov, [facility] [address] [id number] [place] [address] Oct, [facility] [address] [id number] [place] [address] Oct, [facility] [address] [id number] [place] [address] Oct, [facility] [address] [id number] [place] [address] Oct, [facility] [address] [id number] [place] [address] Sep, [facility] [address] [id number] [place] [address] Sep, [facility] [address] [id number] [place] [address] Sep, [facility] [address] [id number] [place] [address] Aug, [facility] [address] [id number] [place] [address] Aug, [facility] [address] [id number] [place] [address] Aug, [facility] [address] [id number] [place] [address] Aug, [facility] [address] [id number] [place] [address] Aug, [facility] [address] [id number] [place] [address] Aug, [facility] [address] [id number] [place] [address] Jul, [facility] [address] [id number] [place] [address] Jul, [facility] [address] [id number] [place] [address] Jun, [facility] [address] [facility] [id number] [place] [address] Jun, [facility] [address] [id number] [place] [address] Jun, [facility] [address] [id number] [place] [address] Apr, [facility] [address] [id number] [place] [address] Apr, [facility] [address] [id number] [place] [address] Mar, [facility] [address] [id number] [place] [address] Mar, [facility] [address] [id number] [place] [address] Mar, [facility] [address] [id number] [place] [address] Mar, [facility] [address] [id number] [place] [address] Feb, [facility] [address] [id number] [place] [address] Feb, [facility] [address] [id number] [place] [address] Feb, [facility] [address] [id number] [place] [address] January, [facility] [address] [id number] [place] [address] January, [facility] [address] [id number] [place] [address] January, [facility] [address] [id number] [place] [address] January, [facility] [address] [id number] [place] [address] Dec, [facility] [address] [id number] [place] [address] Dec, [facility] [address] [id number] [place] [address] Nov, [facility] [address] [id number] [place] [address] Nov, [facility] [id number] [place] [address] Oct, [facility] [id number] [place] [address] Oct, [facility] [address] [id number] [place] [address] Sep, [facility] [address] [id number] [place] [address] Sep, [facility] [address] [id number] [place] [address] Sep, [facility] [address] [id number] [place] [address] Sep, [facility] [address] [id number] [place] [address] Aug, [facility] [id number] [place] [address] Aug, [facility] [address] [id number] [place] [address] Aug, [facility] [id number] [place] [address] Jul, [facility] [address] [id number] [place] [address] Aug, [facility] [id number] [place] [address] Aug, [facility] [id number] [place] [address] Aug, [facility] [id number] [place] [address] Aug, [facility] [id number] [place] [address] Jul, [facility] [id number] [place] [address] Jul, [facility] [id number] [place] [address] Jul, [facility] [id number] [place] [address] Jun, [facility] [id number] [place] [address] Jun, [facility] [id number] [place] [address] Jun, [facility] [id number] [place] [address] Apr, [facility] [id number] [place] [address] Mar, IMMUNIZATIONS No Known Immunizations SOCIAL HISTORY Never Assessed REASON FOR VISIT PLAN OF CARE VITAL SIGNS Height 66 in 2014-01-14 Weight 254.4 lbs 2014-01-14 Temperature 97.8 degrees Fahrenheit 2014-01-14 Heart Rate 80 bpm 2014-01-14 Respiratory Rate 16 2014-01-14 Blood pressure systolic 148 mmHg 2014-01-14 Blood pressure diastolic 104 mmHg 2014-01-14 MEDICATIONS Unknown Medications RESULTS No Results PROCEDURES Procedure Date Ordered Result Body Site X-RAY EXAM OF ANKLE January 14, 2014 INSTRUCTIONS MEDICATIONS ADMINISTERED No Known Medications [...]
--- OUTSIDE RECORDS SUMMARY | 2020-03-18 15:17 | XMS REPORT ---
Author Author George WAYNE Organization [facility] Address [address] [place] [address] Care Team Providers Care Ward Service Supervisor Name Role Phone REYNA WAYNE Unavailable PROBLEMS Type Condition ICD9-CM Code [id number] Code Onset Dates Condition S tatus SNOMED Code Problem Hypertension, benign I10 Active 89033676 Problem Other chronic pain G89.29 Active 8 0616408 Problem Lumbago with sciatica, unspecified side M54.40 Active 282508199 Problem Controlled type 2 diabetes m ellitus without complication, without long- term current use of insulin E11.9 Active 195115909 Problem Lumbago with sciatica, right side M54.41 Active 007774523 Problem Adjustment disorder with disturbance of emotion F4 3.29 Active 87320180 Problem MELE (obstructive sleep apnea) G47.33 Active 98520439 Problem Non morbid obesity E66.9 Active 4 51918272 Problem Hammer toe of left foot M20.42 Active 833793102 Problem Mood disorder F39 Active 223355 05 Problem Deformity of left foot M21.962 Active 713230083 Problem Lumbago with sciatica, left side M54.42 Active 855169446 Problem Erectile dysfunction due to diseases classified elsewhere N52.1 Active 710336441 Problem Obstructive sleep apnea syndrome G47.33 Active 52778010 Problem Type 2 diabetes mellitus wit h diabetic neuropathy, without long-term current use of insulin E11.40 Active 17208 006 Problem Essential hypertension I10 Active 86633469 ALLERGIES No Information ENCOUNTERS Encounter Location Date Diagnosis [facility] [address] [id number] [place] [address] Sep, [facility] [address] [id number] [place] [address] Aug, [facility] [address] [id number] [place] [address] Jul, Lumbago with sciatica, unspecified side M54.40 [facility] [address] [address] Jun, Lumbago with sciatica, unspecified side M54.40 [facility] [address] [address] Jun, URI, acute J06.9 [facility] [address] [address] May, Lumbago with sciatica, unspecified side M54.40 [place] [address] [address] May, [place] [address] [address] May, Type 2 diabetes mellitus with diabetic n europathy, without long-term current use of insulin E11.40 and Hammer toe of left foot M20.42 [place] [address] [address] May, [place] [address] [address] May, [place] [address] [address] May, [place] [address] [address] Apr, Lumbago with sciatica, unspecified side M54.40 [place] [address] [address] Apr, [facility] [address] [address] Apr, [address] [place] [address] Apr, Hammer toe of left foot M20. 42 ; Chest pain R07.9 ; Preoperative examination Z01.818 and Morbid obesity E66.01 [place] [address] [address] Apr, Morbid obesity E66.01 ; Bronchitis J40 a nd High risk medications (not anticoagulants) long-term use Z79.899 [place] [address] [address] Apr, Lumbago with sciatica, unspecified side M54.40 [place] [address] [address] Apr, [place] [address] [address] Mar, Lumbar neuritis M54.16 and Morbid obesit y E66.01 [place] [address] [address] Mar, [place] [address] [address] Mar, [place] [address] [address] Mar, Lumbago with sciatica, unspecified side M54.40 [place] [address] [address] Mar, Morbid obesity E66.01 ; Coughing R05 ; 2 + pitting edema R60.9 and Controlled type 2 diabetes mellitus without complication, without long-term current use of insulin E11.9 [place] [address] [address] Feb, [place] [address] [address] Feb, Lumbago with sciatica, unspecified side M54.40 [place] [address] [address] Feb, [place] [address] [address] Feb, Controlled type 2 diabetes mellitus with out complication, without long-term current use of insulin E11.9 and Morbid obesity E66.01 [place] [address] [address] January, Deformity of left foot M21.962 [facility] [address] [address] January, [facility] [address] [address] January, Lumbago with sciatica, unspecified side M54.40 [place] [address] [address] January, [place] [address] [address] January, Lumbago with sciatica, unspecified side M54.40 [place] [address] [address] January, [place] [address] [address] January, Acute right-sided thoracic back pain M54 .6 [place] [address] [address] January, Acute right-sided thoracic back pain M54 .6 [place] [address] [address] January, Chest pain, unspecified type R07.9 ; Mor bid obesity E66.01 and Scabies B86 [place] [address] [address] Dec, Lumbago with sciatica, unspecified side M54.40 [place] [address] [address] Dec, Toenail fungus B35.1 [place] [address] [address] Dec, Toenail fungus B35.1 [place] [address] [address] Dec, Acute right-sided thoracic back pain M54 .6 [place] [address] [address] Dec, Lumbago with sciatica, unspecified side M54.40 [facility] [address] [address] Nov, Hammer toe of left foot M20.42 ; Deformi ty of left foot M21.962 and Type 2 diabetes mellitus with diabetic neuropathy, without long-term current use of insulin E11.40 [facility] [address] [facility] [id number] [address] [place] [address] Nov, Acute right-sided thoracic b ack pain M54.6 ; Morbid obesity E66.01 and Rt flank pain R10.9 [place] [address] [address] Nov, Lumbago with sciatica, unspecified side M54.40 [place] [address] [address] Oct, Lumbago with sciatica, unspecified side M54.40 [place] [address] [address] Sep, Lumbago with sciatica, unspecified side M54.40 [place] [address] [address] Sep, [place] [address] [address] Sep, BMI 40.0-44.9, adult Z68.41 ; Lumbago wi th sciatica, left side M54.42 ; Lumbago with sciatica, right side M54.41 and Other chronic pain G89.29 [place] [address] [address] Aug, Lumbago with sciatica, unspecified side M54.40 [place] [address] [address] Aug, Type 2 diabetes mellitus with diabetic n europathy, without long-term current use of insulin E11.40 ; Hammer toe of left foot M20.42 ; Hypertension, benign I10 and Frequent headaches R51 [place] [address] [address] Jul, Lumbago with sciatica, unspecified side M54.40 [place] [address] [place] [address] Jul, [place] [address] [place] [address] Jul, Essential hypertension I10 and Controlle d type 2 diabetes mellitus without complication, without long-term current use of insulin E11.9 [place] [address] [address] Jul, Essential hypertension I10 ; Controlled type 2 diabetes mellitus without complication, without long-term current use of insulin E11.9 and BMI 40.0-44.9, adult Z68.41 [place] [address] [address] Jul, Dysfunction of left eustachian tube H69. 82 [place] [address] [address] Jul, Lumbago with sciatica, unspecified side M54.40 [facility] [address] [place] [id number] [place] [id number] Jun, Dental examination Z01.20 [place] [address] [address] Jun, Lumbago with sciatica, unspecified side M54.40 and Encounter for immunization Z23 [place] [address] [address] Jun, Dysfunction of left eustachian tube H69. 82 [facility] [id number] [place] [id number] Jun, Dental examination Z01.20 [facility] [address] [place] [id number] [place] [address] Jun, Other chronic pain G89.29 [facility] [address] [facility] [place], [place] [id number] Jun, Dental examination Z01.20 [facility] [address] [address] Jun, [facility] [address] [address] Jun, Bronchitis J40 ; Dysfunction of left eus tachian tube H69.82 and BMI 45.0-49.9, adult Z68.42 [place] [address] [address] Jun, Lumbago with sciatica, unspecified side M54.40 [place] [address] [address] May, Type 2 diabetes mellitus with diabetic n europathy, without long-term current use of insulin E11.40 and Hypertension, benign I10 [place] [address] [address] May, Lumbago with sciatica, unspecified side M54.40 [facility] [address] [facility] [id number] [address] [place] [address] Apr, [facility] [address] [address] Apr, Controlled type 2 diabetes mellitus with out complication, without long-term current use of insulin E11.9 ; Insect bite (nonvenomous), right ankle, initial encounter S90.561A ; Local infection of the skin and subcutaneous tissue, unspecified L08.9 ; Acute swimmer''s ear of left side H60.332 and BMI 45.0-49.9, adult Z68.42 [place] [address] [address] Apr, Lumbago with sciatica, unspecified side M54.40 [place] [address] [address] Mar, [place] [address] [address] Mar, Lumbago with sciatica, unspecified side M54.40 [place] [address] [address] Feb, Lumbago with sciatica, unspecified side M54.40 [place] [address] [address] Feb, BMI 45.0-49.9, adult Z68.42 and Obstruct jaida sleep apnea syndrome G47.33 [place] [address] [address] January, Lumbar neuritis M54.[address] [address] January, Lumbago with sciatica, unspecified side M54.40 [place] [address] [address] Dec, Controlled type 2 diabetes mellitus with out complication, without long-term current use of insulin E11.9 ; Erectile dysfunction due to diseases classified elsewhere N52.1 and Mood disorder F39 [place] [address] [address] Dec, Lumbago with sciatica, unspecified side M54.40 [place] [address] [address] Dec, Obstructive sleep apnea syndrome G47.[address] [address] Nov, Lumbago with sciatica, unspecified side M54.40 ; Hypertension, benign I10 and Mood disorder F39 [place] [address] [address] Nov, Other chronic pain G89.29 [place] [address] [address] Nov, Lumbago with sciatica, unspecified side M54.40 [facility] [address] [id number] Nov, Dental examination Z01.20 [facility] [address] [address] Oct, [facility] [address] [place] [address] Oct, Lumbago with sciatica, unspecified side M54.40 [facility] [address] [address] Oct, Lumbago with sciatica, unspecified side M54.40 [facility] [address] [address] Oct, [facility] [address] [address] Oct, [facility] [address] [id number] Oct, Dental examination Z01.20 [facility] [address] [address] Oct, [facility] [address] [address] Oct, Pain in right knee M25.561 [facility] [address] [address] Sep, [facility] [address] [address] Sep, Other chronic pain G89.29 [facility] [address] [address] Sep, Lumbago with sciatica, unspecified side M54.40 [facility] [address] [address] Sep, [facility] WALK IN [facility] [address] [place] [id number] [place] [address] Sep, Viral URI J06.9 and BMI 45.0 -49.9, adult Z68.42 [facility] WALK IN [facility] [address] [place] [id number] [place] [address] Aug, Foreign body hand S60.559A a nd BMI 45.0-49.9, adult Z68.42 [place] [address] [address] Aug, [place] [address] [address] Aug, Lumbago with sciatica, unspecified side M54.40 [place] [address] [address] Aug, Vertigo R42 ; Dysfunction of both eustac hian tubes H69.83 ; Low back pain M54.5 and Other chronic pain G89.29 [facility] WALK [facility] [address] [place] [id number] [place] [address] Aug, Dizziness R42 and Acute bila teral otitis media H66.93 [place] [address] [address] Aug, Lumbago with sciatica, unspecified side M54.40 [facility] [address] [facility] [place] [id number] Jul, Dental examination Z01.20 [place] [address] [address] Jul, [place] [address] [address] Jul, [place] [address] [address] Jul, Dysfunction of both eustachian tubes H69 .83 [place] [address] [address] Jul, Controlled type 2 diabetes mellitus with out complication, without long-term current use of insulin E11.9 [facility] [address] [address] Jul, Controlled type 2 diabetes mellitus with out complication, without long-term current use of insulin E11.9 [facility] WALK IN [facility] [address] [facility] [id number] [address] [place] [address] Jul, Dizziness R42 and BMI 40.0-4 4.9, adult Z68.41 [facility] [address] [address] Jul, Controlled type 2 diabetes mellitus with out complication, without long-term current use of insulin E11.9 [place] [address] [address] Jul, Lumbago with sciatica, unspecified side M54.40 [facility] [address] [id number] Jul, Dental examination Z01.20 [facility] [address] [address] Jun, [facility] [address] [id number] Jun, Dental examination Z01.20 [place] [address] [address] Jun, Controlled type 2 diabetes mellitus with out complication, without long-term current use of insulin E11.9 [facility] [address] [address] Jun, Lumbago with sciatica, unspecified side M54.40 [facility] [address] [id number] May, Dental examination Z01.20 [facility] [address] [address] May, Controlled type 2 diabetes mellitus with out complication, without long-term current use of insulin E11.9 [facility] [address] [id number] May, Dental examination Z01.20 [facility] [address] [address] 18 May, 2017 Bronchitis J40 ; Dry mouth R68.2 ; Non m orbid obesity E66.9 and Controlled type 2 diabetes mellitus without complication, without long-term current use of insulin E11.9 [facility] [address] [address] 16 May, 2017 Encounter for immunization Z 23 [place] [address] [address] 07 May, 2017 Lumbago with sciatica, unspecified side M54.40 [place] [address] [address] 05 May, 2017 [facility] [address] [id number] Apr, Dental examination Z01.20 [place] [address] [address] Apr, Lumbago with sciatica, unspecified side M54.40 [facility]ALK [facility] [address] [address] Mar, Lumbago with sciatica, left side M54.42 [place] [address] [address] Mar, [place] [address] [address] Mar, Lumbar neuritis M54.16 [facility] [address] [address] Mar, [facility] [address] [id number] Mar, Dental examination Z01.20 [place] [address] [address] Mar, MELE (obstructive sleep apnea) G47.33 ; N europathy involving both lower extremities G57.93 and Frequent headaches R51 [place] [address] [address] Mar, Lumbago with sciatica, unspecified side M54.40 [place] [address] [address] Feb, Lumbago with sciatica, unspecified side M54.40 and Controlled type 2 diabetes mellitus without complication, without long-term current use of insulin E11.9 [place] [address] [address] 16 Jan, 2017 Hypertension, benign I10 and Bilateral l ow back pain with sciatica, sciatica laterality unspecified M54.40 [place] [address] [address] January, Hypertension, benign I10 ; Lumbago with sciatica, unspecified side M54.40 ; Other chronic pain G89.29 and Controlled type 2 diabetes mellitus without complication, without long-term current use of insulin E11.9 [place] [address] [address] January, Lumbar neuritis M54.16 [place] [address] [address] January, [place] [address] [address] Dec, Lumbago with sciatica, right side M54.41 and Lumbar neuritis M54.16 [place] [address] [address] Dec, Lumbar neuritis M54.16 [place] [address] [address] Dec, Lumbar neuritis M54.16 [place] [address] [address] Nov, Lumbar neuritis M54.16 ; Lumbago with sc iatica, right side M54.41 ; Controlled type 2 diabetes mellitus without complication, without long-term current use of insulin E11.9 and Rash and nonspecific skin eruption R21 [place] [address] [address] 09 Nov, 2016 Lumbar neuritis M54.16 and Poison miroslava L2 3.[address] [address] Oct, Lumbar neuritis M54.16 ; Coughing R05 an d Mood disorder F39 [address] [address] Sep, Lumbago with sciatica, right side M54.[address] [address] Sep, Adjustment disorder with disturbance of emotion F43.29 and Pain management R52 [address] [address] Sep, [place] [address] [address] Sep, [address] [address] Sep, Controlled type 2 diabetes mellitus with out complication, without long-term current use of insulin E11.9 and Lumbago with sciatica, unspecified side M54.[address] [address] Aug, Controlled type 2 diabetes mellitus with out complication, without long-term current use of insulin E11.9 ; Pain in right knee M25.561 ; Pain in left knee M25.562 ; Other chronic pain G89.29 ; Lumbago with sciatica, right side M54.41 ; Neck pain M54.2 and Encounter for immunization Z23 [place] [address] [address] Jul, [address] [address] Jul, Controlled type 2 diabetes mellitus with out complication, without long-term current use of insulin E11.9 [place] [address] [address] Jul, [place] [address] [address] Jul, [place] [address] [address] Jul, Lumbago with sciatica, left side M54.42 ; Lumbago with sciatica, right side M54.41 and Other chronic pain G89.29 [place] [address] [address] Jul, [place] [address] [address] Jul, [place] [address] [address] Jun, [place] [address] [address] Jun, Lumbago with sciatica, right side M54.41 and Other chronic pain G89.29 [place] [address] [address] Jun, Cervicalgia M54.2 ; Lumbago with sciatic a, unspecified side M54.40 and Other chronic pain G89.29 [place] [address] [address] 15 May, 2016 Pain in right knee M25.561 ; Pain in lef t knee M25.562 and Other chronic pain G89.29 [place] [address] [address] 14 May, 2016 [place] [address] [address] 05 Apr, 2016 Other chronic pain G89.29 and Pain in ri ght knee M25.561 [place] [address] [address] Apr, Pain in right knee M25.561 [place] [address] [address] Mar, [place] [address] [address] Mar, Mood disorder F39 and Controlled type 2 diabetes mellitus without complication, without long-term current use of insulin E11.9 [place] [address] [address] Mar, Pain in right knee M25.561 ; Pain in lef t knee M25.562 ; Other chronic pain G89.29 ; Obstructive sleep apnea syndrome G47.33 ; Mood disorder F39 and Controlled type 2 diabetes mellitus without complication, without long-term current use of insulin E11.9 [place] [address] [address] Mar, [facility] [address] [id number] Feb, Dental examination Z01.20 [place] [address] [address] Feb, [place] [address] [address] Feb, Osteoarthritis of right knee, unspecifie d osteoarthritis type M17.9 [place] [address] [address] January, [facility] [address] [id number] January, Dental examination Z01.20 [place] [address] [address] January, [facility] [address] [id number] January, Dental examination Z01.20 and Caries K02 .9 [place] [address] [address] Dec, Encounter for other preprocedural examin ation Z01.818 [facility] [address] [address] Dec, [facility] [address] [address] Dec, Knee pain M25.569 [facility] [address] [address] Dec, Pain in right knee M25.561 [facility] [address] [address] Dec, [facility] [address] [address] Dec, [facility] [address] [address] Dec, Encounter for immunization Z23 [facility] [address] [address] Dec, [facility] [address] [address] Dec, [facility] [address] [address] Nov, [facility] [address] [address] Nov, Hypertension, benign I10 ; Cervicalgia M 54.2 ; Pain in right knee M25.561 and Pain in left knee M25.562 [facility] [address] [address] Oct, [facility] [address] [address] Oct, [facility] [address] [address] 11 Oct, 2015 Osteoarthritis of both knees M17.0 [facility] [address] [address] Oct, [place] [address] [address] Oct, Low back pain M54.5 [place] [address] [address] Oct, Low back pain M54.5 ; Sciatica, unspecif ied side M54.30 ; Pain in right knee M25.561 ; Pain in left knee M25.562 ; Pain in right shoulder M25.511 and Pain in left shoulder M25.[address] [address] Oct, [address] [address] Sep, Pain in right hip M25.[address] [address] Sep, Acute upper respiratory infection, unspe cified J06.[address] [address] Aug, Acute upper respiratory infection, unspe cified J06.9 and Other viral agents as the cause of diseases classified elsewhere B97.[address] [address] Jul, Arthritis M19.[address] [address] Jun, Arthritis M19.90 ; Pain in right hip M25 .551 ; Pain in left hip M25.552 ; Bilateral low back pain with sciatica, sciatica laterality unspecified M54.40 ; Neck pain M54.2 ; Upper back pain M54.9 and Knee pain, unspecified laterality M25.[address] [address] May, Osteoarthritis of both knees 715.[address] [address] May, Rash 782.1 [facility] [address] [address] Apr, Lumbar strain 847.2 [facility] [address] [address] Apr, Rash 782.1 [facility] [address] [address] Mar, Rash 782.1 [facility] [address] [address] Feb, Rash 782.1 ; Hemorrhoids 455.6 and Const ipation 564.00 [facility] [address] [address] Feb, Osteoarthritis of both knees 715.96 [facility] [address] [address] January, [facility] [address] [address] Dec, [facility] [address] [address] Dec, [facility] [address] [address] Dec, [facility] [address] [address] Nov, [facility] [address] [address] Nov, [facility] [address] [address] Nov, [facility] [address] [address] Nov, [facility] [address] [address] Nov, [facility] [address] [address] Nov, [facility] [address] [id number] [place] [address] Oct, [facility] [address] [id number] [place] [address] Oct, [facility] [address] [id number] [place] [address] Oct, [facility] [address] [id number] [place] [address] Oct, [facility] [address] [id number] [place] [address] Oct, [facility] [address] [id number] [place] [address] Oct, [facility] [address] [id number] [place] [address] Oct, [facility] [address] [id number] [place] [address] Oct, [facility] [address] [id number] [place] [address] Oct, [facility] [address] [id number] [place] [address] Oct, [facility] [address] [id number] [place] [address] Oct, [facility] [address] [id number] [place] [address] Sep, [facility] [address] [id number] [place] [address] Sep, [facility] [address] [id number] [place] [address] Sep, [facility] [address] [id number] [place] [address] Sep, [facility] [address] [id number] [place] [address] Sep, [facility] [address] [id number] [place] [address] Sep, [facility] [address] [id number] [place] [address] Aug, [facility] [address] [id number] [place] [address] Aug, [facility] [address] [id number] [place] [address] Aug, [facility] [address] [id number] [place] [address] Aug, [facility] [address] [id number] [place] [address] Aug, [facility] [address] [id number] [place] [address] Aug, [facility] [address] [id number] [place] [address] Aug, [facility] [address] [id number] [place] [address] Aug, [facility] [address] [id number] [place] [address] Aug, [facility] [address] [id number] [place] [address] Aug, [facility] [address] [id number] [place] [address] Jul, [facility] [address] [id number] [place] [address] Jul, [facility] [address] [id number] [place] [address] Jul, [facility] [id number] [place] [address] Jul, [facility] [address] [id number] [place] [address] Jun, [facility] [address] [id number] [place] [address] Jun, [facility] [address] [facility] [id number] [place] [address] Jun, [facility] [address] [facility] [id number] [place] [address] Jun, [facility] [address] [id number] [place] [address] Jun, [facility] [address] [id number] [place] [address] Jun, [facility] [address] [facility] [id number] [place] [address] Jun, [facility] [address] [id number] [place] [address] Jun, [facility] [address] [id number] [place] [address] 24 May, 2014 [facility] [address] [id number] [place] [address] 24 May, 2013 [facility] [address] [id number] [place] [address] 19 May, 2013 [facility] [address] [id number] [place] [address] 19 May, 2014 [facility] [address] [id number] [place] [address] 15 May, 2013 [facility] [address] [id number] [place] [address] 15 May, 2013 [facility] [address] [id number] [place] [address] 15 May, 2013 [facility] [address] [id number] [place] [address] 15 May, 2014 [facility] [address] [id number] [place] [address] Apr, [facility] [address] [id number] [place] [address] Apr, [facility] [address] [id number] [facility] [address] Apr, [facility] [address] [facility] [id number] [facility] [address] Apr, [facility] [address] [facility] [id number] [place] [address] Apr, [facility] [address] [id number] [place] [address] Apr, [facility] [address] [id number] [place] [address] Apr, [facility] [address] [facility] [id number] [place] [address] Apr, [facility] [address] [id number] [place] [address] Apr, [facility] [address] [id number] [place] [address] Apr, [facility] [address] [id number] [place] [address] Apr, [facility] [address] [id number] [place] [address] Apr, [facility] [address] [id number] [place] [address] Mar, [facility] [address] [id number] [place] [address] Mar, [facility] [address] [id number] [place] [address] Mar, [facility] [address] [id number] [place] [address] Mar, [facility] [address] [id number] [place] [address] Mar, [facility] [address] [id number] [place] [address] Mar, [facility] [address] [id number] [place] [address] Feb, [facility] [address] [facility] [id number] [place] [address] 18 Feb, 2014 [facility] [address] [facility] [id number] [place] [address] Feb, [facility] [address] [facility] [id number] [place] [address] Feb, [facility] [address] [id number] [place] [address] Feb, [facility] [address] [facility] [id number] [place] [address] Feb, [facility] [address] [id number] [place] [address] Feb, [facility] [address] [id number] [place] [address] Feb, [facility] [address] [id number] [place] [address] Feb, [facility] [address] [id number] [place] [address] Feb, [facility] [address] [id number] [place] [address] Feb, [facility] [address] [id number] [place] [address] Feb, [facility] [address] [id number] [place] [address] Feb, [facility] [address] [id number] [place] [address] Feb, [facility] [address] [id number] [place] [address] January, [facility] [address] [id number] [place] [address] January, [facility] [address] [id number] [place] [address] January, [facility] [address] [id number] [place] [address] January, [facility] [address] [id number] [place] [address] January, [facility] [address] [id number] [facility] [address] January, [facility] [address] [id number] [place] [address] Dec, [facility] [address] [id number] [facility] [address] Dec, [facility] [address] [facility] [id number] [facility] [address] Dec, [facility] [address] [id number] [place] [address] Dec, [facility] [address] [id number] [place] [address] Dec, [facility] [address] [id number] [place] [address] Dec, [facility] [address] [id number] [place] [address] Dec, [facility] [address] [id number] [place] [address] Dec, [facility] [address] [id number] [place] [address] Nov, [facility] [address] [id number] [place] [address] Nov, [facility] [address] [id number] [place] [address] Nov, [facility] [address] [id number] [place] [address] Nov, [facility] [address] [id number] [place] [address] Nov, [facility] [address] [id number] [place] [address] Nov, [facility] [address] [id number] [facility] [address] Nov, [facility] [address] [facility] [id number] [facility] [address] Nov, [facility] [address] [facility] [id number] [place] [address] Oct, [facility] [address] [id number] [place] [address] Oct, [facility] [address] [facility] [id number] [place] [address] Oct, [facility] [address] [facility] [id number] [place] [address] Oct, [facility] [address] [id number] [place] [address] Oct, [facility] [address] [id number] [place] [address] Oct, [facility] [address] [id number] [place] [address] Oct, [facility] [address] [id number] [place] [address] Oct, [facility] [address] [id number] [place] [address] Oct, [facility] [address] [id number] [place] [address] Oct, [facility] [address] [id number] [place] [address] Sep, [facility] [address] [facility] [id number] [place] [address] Sep, [facility] [address] [id number] [place] [address] Sep, [facility] [address] [id number] [place] [address] Sep, [facility] [address] [id number] [place] [address] Sep, [facility] [address] [id number] [place] [address] Sep, [facility] [address] [id number] [place] [address] Aug, [facility] [address] [id number] [place] [address] Aug, [facility] [address] [id number] [place] [address] Aug, [facility] [address] [id number] [place] [address] Aug, [facility] [address] [id number] [place] [address] Aug, [facility] [address] [id number] [place] [address] Aug, [facility] [id number] [place] [address] Aug, [facility] [address] [id number] [place] [address] Aug, [facility] [address] [id number] [place] [address] Jul, [facility] [address] [id number] [place] [address] Jul, [facility] [id number] [place] [address] Jul, [facility] [address] [id number] [place] [address] Jul, [facility] [address] [id number] [place] [address] Jul, [facility] [address] [id number] [place] [address] Jul, [facility] [address] [id number] [place] [address] Jun, [facility] [address] [id number] [place] [address] Jun, [facility] [address] [facility] [id number] [facility] [address] Jun, [facility] [address] [facility] [id number] [place] [address] May, [facility] [address] [id number] [place] [address] May, [facility] [address] [id number] [place] [address] May, [facility] [address] [id number] [place] [address] Apr, [facility] [address] [id number] [place] [address] Apr, [facility] [address] [id number] [place] [address] Apr, [facility] [address] [id number] [place] [address] Apr, [facility] [address] [id number] [place] [address] Mar, [facility] [address] [id number] [place] [address] Mar, [facility] [address] [id number] [place] [address] Mar, [facility] [address] [id number] [place] [address] Mar, [facility] [address] [id number] [place] [address] Feb, [facility] [address] [id number] [place] [address] Feb, [facility] [address] [id number] [place] [address] Feb, [facility] [address] [id number] [place] [address] Feb, [facility] [address] [id number] [place] [address] January, [facility] [address] [id number] [place] [address] January, [facility] [address] [id number] [place] [address] January, [facility] [address] [id number] [place] [address] Nov, [facility] [address] [id number] [place] [address] Nov, [facility] [address] [id number] [place] [address] Oct, [facility] [address] [id number] [place] [address] Oct, [facility] [address] [id number] [place] [address] Oct, [facility] [address] [id number] [place] [address] Oct, [facility] [address] [id number] [place] [address] Sep, [facility] [address] [id number] [place] [address] Sep, [facility] [address] [id number] [place] [address] Sep, [facility] [address] [id number] [place] [address] Aug, [facility] [address] [id number] [place] [address] Aug, [facility] [address] [id number] [place] [address] Aug, [facility] [address] [id number] [place] [address] Aug, [facility] [address] [id number] [place] [address] Aug, [facility] [address] [id number] [place] [address] Aug, [facility] [address] [id number] [place] [address] Jul, [facility] [address] [id number] [place] [address] Jul, [facility] [address] [id number] [place] [address] Jun, [facility] [address] [facility] [id number] [place] [address] Jun, [facility] [address] [id number] [place] [address] Jun, [facility] [address] [id number] [place] [address] Apr, [facility] [address] [id number] [place] [address] Apr, [facility] [address] [id number] [place] [address] Mar, [facility] [address] [id number] [place] [address] Mar, [facility] [address] [id number] [place] [address] Mar, [facility] [address] [id number] [place] [address] Mar, [facility] [address] [id number] [place] [address] Feb, [facility] [address] [id number] [place] [address] Feb, [facility] [address] [id number] [place] [address] Feb, [facility] [address] [id number] [place] [address] January, [facility] [address] [id number] [place] [address] January, [facility] [address] [id number] [place] [address] January, [facility] [address] [id number] [place] [address] January, [facility] [address] [id number] [place] [address] Dec, [facility] [address] [id number] [place] [address] Dec, [facility] [address] [id number] [place] [address] Nov, [facility] [address] [id number] [place] [address] Nov, [facility] [id number] [place] [address] Oct, [facility] [id number] [place] [address] Oct, [facility] [address] [id number] [place] [address] Sep, [facility] [address] [id number] [place] [address] Sep, [facility] [address] [id number] [place] [address] Sep, [facility] [address] [id number] [place] [address] Sep, [facility] [address] [id number] [place] [address] Aug, [facility] [id number] [place] [address] Aug, [facility] [address] [id number] [place] [address] Aug, [facility] [id number] [place] [address] Jul, [facility] [address] [id number] [place] [address] Aug, [facility] [address] [id number] [place] [address] Aug, [facility] [address] [id number] [place] [address] Aug, [facility] [address] [id number] [place] [address] Aug, [facility] [address] [id number] [place] [address] Jul, [facility] [id number] [place] [address] Jul, [facility] [address] [id number] [place] [address] Jul, [facility] [id number] [place] [address] Jun, [facility] [address] [id number] [place] [address] Jun, [facility] [address] [id number] [place] [address] Jun, [facility] [address] [id number] [place] [address] Apr, [facility] [address] [id number] [place] [address] Mar, IMMUNIZATIONS No Known Immunizations SOCIAL HISTORY [...]
--- OUTSIDE RECORDS SUMMARY | 2020-03-18 15:18 | XMS REPORT ---
Author Author George Marx Doctor Organization [facility] Address Unknown Phone Unavailable Care Team Providers Care Inventory Representative Name Role Phone Migration, Doctor Unavailable Unavailable PROBLEMS Type Condition ICD9-CM Code XMA16-FG Code Onset Dates Condition S tatus SNOMED Code Problem Hypertension, benign I10 Active 75560292 Problem Other chronic pain G89.29 Active 8 2432115 Problem Lumbago with sciatica, unspecified side M54.40 Active 322259978 Problem Controlled type 2 diabetes m ellitus without complication, without long- term current use of insulin E11.9 Active 459336290 Problem Lumbago with sciatica, right side M54.41 Active 934523902 Problem Adjustment disorder with disturbance of emotion F4 3.29 Active 53168020 Problem MELE (obstructive sleep apnea) G47.33 Active 72236658 Problem Non morbid obesity E66.9 Active 4 20192801 Problem Hammer toe of left foot M20.42 Active 404266954 Problem Mood disorder F39 Active 750789 05 Problem Deformity of left foot M21.962 Active 690191374 Problem Lumbago with sciatica, left side M54.42 Active 789582120 Problem Erectile dysfunction due to diseases classified elsewhere N52.1 Active 516841336 Problem Obstructive sleep apnea syndrome G47.33 Active 67846324 Problem Type 2 diabetes mellitus wit h diabetic neuropathy, without long-term current use of insulin E11.40 Active 91181 006 Problem Essential hypertension I10 Active 28981861 ALLERGIES No Information ENCOUNTERS Encounter Location Date Diagnosis [facility] [address] [id number] [place] [address] Sep, [facility] [id number] [place] [address] Aug, [facility] [id number] [place] [address] Jul, Lumbago with sciatica, unspecified side M54.40 [facility] [address] [address] Jun, Lumbago with sciatica, unspecified side M54.40 [place] [address] [address] Jun, URI, acute J06.9 [facility] [address] [address] May, Lumbago with sciatica, unspecified side M54.40 [place] [address] [address] May, [place] [address] [address] May, Type 2 diabetes mellitus with diabetic n europathy, without long-term current use of insulin E11.40 and Hammer toe of left foot M20.42 [place] [address] [address] May, [place] [address] [address] May, [facility] [address] [address] May, [facility] [address] [address] Apr, Lumbago with sciatica, unspecified side M54.40 [place] [address] [address] Apr, [facility] [address] [address] Apr, [address] [place] [address] Apr, Hammer toe of left foot M20. 42 ; Chest pain R07.9 ; Preoperative examination Z01.818 and Morbid obesity E66.01 [facility] [address] [address] Apr, Morbid obesity E66.01 ; Bronchitis J40 a nd High risk medications (not anticoagulants) long-term use Z79.899 [place] [address] [address] Apr, Lumbago with sciatica, unspecified side M54.40 [place] [address] [address] Apr, [place] [address] [address] Mar, Lumbar neuritis M54.16 and Morbid obesit y E66.01 [place] [address] [address] Mar, [place] [address] [address] Mar, [place] [address] [address] Mar, Lumbago with sciatica, unspecified side M54.40 [place] [address] [address] Mar, Morbid obesity E66.01 ; Coughing R05 ; 2 + pitting edema R60.9 and Controlled type 2 diabetes mellitus without complication, without long-term current use of insulin E11.9 [place] [address] [address] Feb, [place] [address] [address] Feb, Lumbago with sciatica, unspecified side M54.40 [place] [address] [address] Feb, [place] [address] [address] Feb, Controlled type 2 diabetes mellitus with out complication, without long-term current use of insulin E11.9 and Morbid obesity E66.01 [place] [address] [address] January, Deformity of left foot M21.962 [facility] [address] [address] January, [facility] [address] [address] January, Lumbago with sciatica, unspecified side M54.40 [place] [address] [address] January, [facility] [address] [address] January, Lumbago with sciatica, unspecified side M54.40 [place] [address] [address] January, [place] [address] [address] January, Acute right-sided thoracic back pain M54 .6 [place] [address] [address] January, Acute right-sided thoracic back pain M54 .6 [place] [address] [address] January, Chest pain, unspecified type R07.9 ; Mor bid obesity E66.01 and Scabies B86 [place] [address] [address] Dec, Lumbago with sciatica, unspecified side M54.40 [place] [address] [address] Dec, Toenail fungus B35.1 [place] [address] [address] Dec, Toenail fungus B35.1 [place] [address] [address] Dec, Acute right-sided thoracic back pain M54 .6 [place] [address] [address] Dec, Lumbago with sciatica, unspecified side M54.40 [place] [address] [address] Nov, Hammer toe of left foot M20.42 ; Deformi ty of left foot M21.962 and Type 2 diabetes mellitus with diabetic neuropathy, without long-term current use of insulin E11.40 [facility] [address] [facility] [id number] [place] [address] Nov, Acute right-sided thoracic b ack pain M54.6 ; Morbid obesity E66.01 and Rt flank pain R10.9 [place] [address] [address] Nov, Lumbago with sciatica, unspecified side M54.40 [place] [address] [address] Oct, Lumbago with sciatica, unspecified side M54.40 [place] [address] [address] Sep, Lumbago with sciatica, unspecified side M54.40 [place] [address] [address] Sep, [place] [address] [address] Sep, BMI 40.0-44.9, adult Z68.41 ; Lumbago wi th sciatica, left side M54.42 ; Lumbago with sciatica, right side M54.41 and Other chronic pain G89.29 [place] [address] [address] Aug, Lumbago with sciatica, unspecified side M54.40 [place] [address] [address] Aug, Type 2 diabetes mellitus with diabetic n europathy, without long-term current use of insulin E11.40 ; Hammer toe of left foot M20.42 ; Hypertension, benign I10 and Frequent headaches R51 [place] [address] [address] Jul, Lumbago with sciatica, unspecified side M54.40 [place] [address] [address] Jul, [place] [address] Jul, Essential hypertension I10 and Controlle d type 2 diabetes mellitus without complication, without long-term current use of insulin E11.9 [place] [address] [place] [address] [address] Jul, Essential hypertension I10 ; Controlled type 2 diabetes mellitus without complication, without long-term current use of insulin E11.9 and BMI 40.0-44.9, adult Z68.41 [place] [address] [address] Jul, Dysfunction of left eustachian tube H69. 82 [place] [address] [address] Jul, Lumbago with sciatica, unspecified side M54.40 [facility] [id number] [place] [id number] Jun, Dental examination Z01.20 [place] [address] [address] Jun, Lumbago with sciatica, unspecified side M54.40 and Encounter for immunization Z23 [place] [address] [address] Jun, Dysfunction of left eustachian tube H69. 82 [facility] [address] [id number] [id number] Jun, Dental examination Z01.20 [place] [address] [address] Jun, Other chronic pain G89.29 [facility] [address] [facility] [id number] [place] [id number] Jun, Dental examination Z01.20 [place] [address] [address] Jun, [facility] [address] [address] Jun, Bronchitis J40 ; Dysfunction of left eus tachian tube H69.82 and BMI 45.0-49.9, adult Z68.42 [place] [address] [address] Jun, Lumbago with sciatica, unspecified side M54.40 [place] [address] [address] May, Type 2 diabetes mellitus with diabetic n europathy, without long-term current use of insulin E11.40 and Hypertension, benign I10 [place] [address] [address] May, Lumbago with sciatica, unspecified side M54.40 [facility] [address] [facility] [id number] [place] [address] Apr, [place] [address] [address] Apr, Controlled type 2 diabetes mellitus with out complication, without long-term current use of insulin E11.9 ; Insect bite (nonvenomous), right ankle, initial encounter S90.561A ; Local infection of the skin and subcutaneous tissue, unspecified L08.9 ; Acute swimmer''s ear of left side H60.332 and BMI 45.0-49.9, adult Z68.42 [place] [address] [address] Apr, Lumbago with sciatica, unspecified side M54.40 [place] [address] [address] Mar, [place] [address] [address] Mar, Lumbago with sciatica, unspecified side M54.40 [place] [address] [address] Feb, Lumbago with sciatica, unspecified side M54.40 [place] [address] [address] Feb, BMI 45.0-49.9, adult Z68.42 and Obstruct jaida sleep apnea syndrome G47.33 [place] [address] [address] January, Lumbar neuritis M54.16 [place] [address] [address] January, Lumbago with sciatica, unspecified side M54.40 [place] [address] [address] Dec, Controlled type 2 diabetes mellitus with out complication, without long-term current use of insulin E11.9 ; Erectile dysfunction due to diseases classified elsewhere N52.1 and Mood disorder F39 [place] [address] [address] Dec, Lumbago with sciatica, unspecified side M54.40 [place] [address] [address] Dec, Obstructive sleep apnea syndrome G47.33 [place] [address] [address] Nov, Lumbago with sciatica, unspecified side M54.40 ; Hypertension, benign I10 and Mood disorder F39 [place] [address] [address] Nov, Other chronic pain G89.29 [place] [address] [address] Nov, Lumbago with sciatica, unspecified side M54.40 [facility] [address] [id number] Nov, Dental examination Z01.20 [facility] [address] [address] Oct, [facility] [address] [address] Oct, Lumbago with sciatica, unspecified side M54.40 [facility] [address] [address] Oct, Lumbago with sciatica, unspecified side M54.40 [facility] [address] [address] Oct, [facility] [address] [address] Oct, [facility] [address] [id number] Oct, Dental examination Z01.20 [facility] [address] [address] Oct, [facility] [address] [address] Oct, Pain in right knee M25.561 [facility] [address] [address] Sep, [facility] [address] [address] Sep, Other chronic pain G89.29 [facility] [address] [address] Sep, Lumbago with sciatica, unspecified side M54.40 [facility] [address] [facility] [place] [address] Sep, [facility] [address] [facility] [id number] [place] [address] Sep, Viral URI J06.9 and BMI 45.0 -49.9, adult Z68.42 [facility] [address] [address] Aug, Foreign body hand S60.559A a nd BMI 45.0-49.9, adult Z68.42 [place] [address] [address] Aug, [place] [address] [address] Aug, Lumbago with sciatica, unspecified side M54.[address] [address] Aug, Vertigo R42 ; Dysfunction of both eustac hian tubes H69.83 ; Low back pain M54.5 and Other chronic pain G89.29 [facility] [id number] [place] [address] Aug, Dizziness R42 and Acute bila teral otitis media H66.[address] [address] Aug, Lumbago with sciatica, unspecified side M54.40 [facility] [id number] [place] [id number] Jul, Dental examination Z01.20 [place] [address] [address] Jul, [place] [address] [address] Jul, [address] [address] Jul, Dysfunction of both eustachian tubes H69 .83 [place] [address] [address] 07 Jul, 2017 Controlled type 2 diabetes mellitus with out complication, without long-term current use of insulin E11.9 [facility] [address] [address] Jul, Controlled type 2 diabetes mellitus with out complication, without long-term current use of insulin E11.9 [facility] [address] [facility] [id number] [address] [place] [address] Jul, Dizziness R42 and BMI 40.0-4 4.9, adult Z68.41 [facility] [address] [address] Jul, Controlled type 2 diabetes mellitus with out complication, without long-term current use of insulin E11.9 [facility] [address] [address] Jul, Lumbago with sciatica, unspecified side M54.40 [facility] [address] [id number] Jul, Dental examination Z01.20 [facility] [address] [address] Jun, [facility] [address] [id number] Jun, Dental examination Z01.20 [facility] [address] [address] Jun, Controlled type 2 diabetes mellitus with out complication, without long-term current use of insulin E11.9 [facility] [address] [address] Jun, Lumbago with sciatica, unspecified side M54.40 [facility] [address] [id number] May, Dental examination Z01.20 [facility] [address] [address] May, Controlled type 2 diabetes mellitus with out complication, without long-term current use of insulin E11.9 [facility] [address] [id number] May, Dental examination Z01.20 [facility] [address] [address] 18 May, 2017 Bronchitis J40 ; Dry mouth R68.2 ; Non m orbid obesity E66.9 and Controlled type 2 diabetes mellitus without complication, without long-term current use of insulin E11.9 [facility] [address] [address] 16 May, 2017 Encounter for immunization Z 23 [facility] [address] [address] 07 May, 2017 Lumbago with sciatica, unspecified side M54.40 [place] [address] [address] 05 May, 2017 [facility] [address] [id number] Apr, Dental examination Z01.20 [place] [address] [address] Apr, Lumbago with sciatica, unspecified side M54.40 [facility] [address] [address] Mar, Lumbago with sciatica, left side M54.42 [place] [address] [address] Mar, [place] [address] [address] Mar, Lumbar neuritis M54.16 [facility] [address] [address] Mar, [facility] [address] [id number] Mar, Dental examination Z01.20 [facility] [address] [address] Mar, MELE (obstructive sleep apnea) G47.33 ; N europathy involving both lower extremities G57.93 and Frequent headaches R51 [place] [address] [address] Mar, Lumbago with sciatica, unspecified side M54.40 [place] [address] [address] Feb, Lumbago with sciatica, unspecified side M54.40 and Controlled type 2 diabetes mellitus without complication, without long-term current use of insulin E11.9 [place] [address] [address] January, Hypertension, benign I10 and Bilateral l ow back pain with sciatica, sciatica laterality unspecified M54.40 [place] [address] [address] January, Hypertension, benign I10 ; Lumbago with sciatica, unspecified side M54.40 ; Other chronic pain G89.29 and Controlled type 2 diabetes mellitus without complication, without long-term current use of insulin E11.9 [place] [address] [address] January, Lumbar neuritis M54.16 [place] [address] [address] January, [place] [address] [address] Dec, Lumbago with sciatica, right side M54.41 and Lumbar neuritis M54.16 [place] [address] [address] Dec, Lumbar neuritis M54.16 [place] [address] [address] Dec, Lumbar neuritis M54.16 [place] [address] [address] Nov, Lumbar neuritis M54.16 ; Lumbago with sc iatica, right side M54.41 ; Controlled type 2 diabetes mellitus without complication, without long-term current use of insulin E11.9 and Rash and nonspecific skin eruption R21 [place] [address] [address] Nov, Lumbar neuritis M54.16 and Poison miroslava L2 3.7 [place] [address] [address] 16 Oct, 2016 Lumbar neuritis M54.16 ; Coughing R05 an d Mood disorder F39 [place] [address] [address] Sep, Lumbago with sciatica, right side M54.[address] [address] Sep, Adjustment disorder with disturbance of emotion F43.29 and Pain management R52 [address] [address] Sep, [place] [address] [address] Sep, [place] [address] [address] Sep, Controlled type 2 diabetes mellitus with out complication, without long-term current use of insulin E11.9 and Lumbago with sciatica, unspecified side M54.[address] [address] Aug, Controlled type 2 diabetes mellitus with out complication, without long-term current use of insulin E11.9 ; Pain in right knee M25.561 ; Pain in left knee M25.562 ; Other chronic pain G89.29 ; Lumbago with sciatica, right side M54.41 ; Neck pain M54.2 and Encounter for immunization Z23 [place] [address] [address] Jul, [address] [address] Jul, Controlled type 2 diabetes mellitus with out complication, without long-term current use of insulin E11.9 [facility] [address] [address] 17 Jul, 2016 [facility] [address] [address] Jul, [facility] [address] [address] Jul, Lumbago with sciatica, left side M54.42 ; Lumbago with sciatica, right side M54.41 and Other chronic pain G89.29 [place] [address] [address] Jul, [place] [address] [address] Jul, [place] [address] [address] Jun, [facility] [address] [address] Jun, Lumbago with sciatica, right side M54.41 and Other chronic pain G89.29 [facility] [address] [address] Jun, Cervicalgia M54.2 ; Lumbago with sciatic a, unspecified side M54.40 and Other chronic pain G89.29 [place] [address] [address] 15 May, 2016 Pain in right knee M25.561 ; Pain in lef t knee M25.562 and Other chronic pain G89.29 [facility] [address] [address] 14 May, 2016 [place] [address] [address] Apr, Other chronic pain G89.29 and Pain in ri ght knee M25.561 [facility] [address] [address] Apr, Pain in right knee M25.561 [place] [address] [address] Mar, [place] [address] [address] Mar, Mood disorder F39 and Controlled type 2 diabetes mellitus without complication, without long-term current use of insulin E11.9 [place] [address] [address] Mar, Pain in right knee M25.561 ; Pain in lef t knee M25.562 ; Other chronic pain G89.29 ; Obstructive sleep apnea syndrome G47.33 ; Mood disorder F39 and Controlled type 2 diabetes mellitus without complication, without long-term current use of insulin E11.9 [place] [address] [address] Mar, [facility] [address] [id number] Feb, Dental examination Z01.20 [place] [address] [address] Feb, [address] [address] Feb, Osteoarthritis of right knee, unspecifie d osteoarthritis type M17.9 [place] [address] [address] January, [facility] [address] [id number] January, Dental examination Z01.20 [place] [address] [address] January, [facility] [address] [id number] January, Dental examination Z01.20 and Caries K02 .[address] [address] Dec, Encounter for other preprocedural examin ation Z01.818 [facility] [id number] [place] [address] Dec, [facility] [address] [address] Dec, Knee pain M25.569 [facility] [address] [address] Dec, Pain in right knee M25.561 [facility] [address] [address] Dec, [facility] [address] [address] Dec, [facility] [address] [address] Dec, Encounter for immunization Z23 [facility] [address] [address] Dec, [facility] [address] [address] Dec, [facility] [address] [address] Nov, [facility] [address] [address] Nov, Hypertension, benign I10 ; Cervicalgia M 54.2 ; Pain in right knee M25.561 and Pain in left knee M25.562 [facility] [address] [address] Oct, [facility] [address] [address] Oct, [facility] [address] [address] Oct, Osteoarthritis of both knees M17.0 [facility] [address] [address] 08 Oct, 2015 [facility] [address] [address] 08 Oct, 2015 Low back pain M54.5 [place] [address] [address] Oct, Low back pain M54.5 ; Sciatica, unspecif ied side M54.30 ; Pain in right knee M25.561 ; Pain in left knee M25.562 ; Pain in right shoulder M25.511 and Pain in left shoulder M25.512 [place] [address] [address] Oct, [address] [address] Sep, Pain in right hip M25.[address] [address] Sep, Acute upper respiratory infection, unspe cified J06.[address] [address] Aug, Acute upper respiratory infection, unspe cified J06.9 and Other viral agents as the cause of diseases classified elsewhere B97.[address] [address] Jul, Arthritis M19.[address] [address] Jun, Arthritis M19.90 ; Pain in right hip M25 .551 ; Pain in left hip M25.552 ; Bilateral low back pain with sciatica, sciatica laterality unspecified M54.40 ; Neck pain M54.2 ; Upper back pain M54.9 and Knee pain, unspecified laterality M25.[address] [address] May, Osteoarthritis of both knees [address] [address] May, Rash 782.1 [address] [address] [place] [address] Apr, Lumbar strain 847.2 [facility] [address] [address] Apr, Rash 782.1 [facility] [address] [address] Mar, Rash 782.1 [facility] [address] [address] Feb, Rash 782.1 ; Hemorrhoids 455.6 and Const ipation 564.00 [facility] [address] [address] Feb, Osteoarthritis of both knees 715.96 [facility] [address] [address] January, [facility] [address] [address] Dec, [facility] [address] [address] Dec, [facility] [address] [address] Dec, [facility] [address] [address] Nov, [facility] [address] [address] Nov, [facility] [address] [address] Nov, [facility] [address] [address] Nov, [facility] [address] [address] Nov, [facility] [address] [address] Nov, [facility] [address] [address] Oct, [facility] [place] [facility] [address] [id number] [place] [address] Oct, [facility] [place] [facility] [address] [id number] [place] [address] Oct, [facility] [place] [facility] [address] [id number] [place] [address] Oct, [facility] [place] [facility] [address] [id number] [place] [address] Oct, [facility] [place] [facility] [address] [id number] [place] [address] Oct, [facility] [place] [facility] [address] [id number] [place] [address] Oct, [facility] [place] [facility] [address] [id number] [place] [address] Oct, [facility] [place] [facility] [address] [id number] [place] [address] Oct, [facility] [place] [facility] [address] [id number] [place] [address] Oct, [facility] [place] [facility] [address] [id number] [place] [address] Oct, [facility] [place] [facility] [address] [id number] [place] [address] Sep, [facility] [place] [facility] [address] [id number] [place] [address] Sep, [facility] [place] [facility] [address] [id number] [place] [address] Sep, [facility] [place] [facility] [address] [id number] [place] [address] Sep, [facility] [place] [facility] [address] [id number] [place] [address] Sep, [facility] [place] [facility] [address] [id number] [place] [address] Sep, [facility] [place] [facility] [address] [id number] [place] [address] Aug, [facility] [place] [facility] [address] [id number] [place] [address] Aug, [facility] [place] [facility] [address] [id number] [place] [address] Aug, [facility] [place] [facility] [address] [id number] [place] [address] Aug, [facility] [place] [facility] [address] [id number] [place] [address] Aug, [facility] [place] [facility] [address] [id number] [place] [address] Aug, [facility] [place] [facility] [address] [id number] [place] [address] Aug, [facility] [place] [facility] [address] [id number] [place] [address] Aug, [facility] [place] [facility] [address] [id number] [place] [address] Aug, [facility] [place] [facility] [address] [id number] [place] [address] Aug, [facility] [place] [facility] [address] [id number] [place] [address] Jul, [facility] [place] [facility] [address] [id number] [place] [address] Jul, [facility] [place] [facility] [address] [id number] [place] [address] Jul, [facility] [place] [facility] [address] [id number] [place] [address] Jul, [facility] [place] [facility] [address] [id number] [place] [address] Jun, [facility] [place] [facility] [address] [id number] [place] [address] Jun, [facility] [place] [facility] [address] [id number] [place] [address] Jun, [facility] [place] [facility] [address] [facility] [id number] [place] [address] Jun, [facility] [place] [facility] [address] [facility] [id number] [place] [address] Jun, [facility] [place] [facility] [address] [id number] [place] [address] Jun, [facility] [place] [facility] [address] [facility] [id number] [place] [address] Jun, [facility] [place] [facility] [address] [facility] [id number] [place] [address] Jun, [facility] [place] [facility] [address] [id number] [place] [address] May, [facility] [place] [facility] [address] [id number] [place] [address] 24 May, 2014 [facility] [place] [facility] [address] [id number] [place] [address] 19 May, 2013 [facility] [place] [facility] [address] [facility] [id number] [place] [address] 19 May, 2014 [facility] [place] [facility] [address] [id number] [place] [address] 15 May, 2014 [facility] [place] [facility] [address] [id number] [place] [address] 15 May, 2014 [facility] [place] [facility] [address] [id number] [place] [address] 15 May, 2013 [facility] [place] [facility] [address] [facility] [id number] [place] [address] 15 May, 2013 [facility] [place] [facility] [address] [id number] [place] [address] Apr, [facility] [place] [facility] [address] [facility] [id number] [place] [address] Apr, [facility] [place] [facility] [address] [id number] [place] [address] Apr, [facility] [place] [facility] [address] [facility] [id number] [place] [address] Apr, [facility] [place] [facility] [address] [facility] [id number] [place] [address] Apr, [facility] [place] [facility] [address] [facility] [id number] [place] [address] Apr, [facility] [place] [facility] [address] [id number] [place] [address] Apr, [facility] [place] [facility] [address] [id number] [place] [address] Apr, [facility] [place] [facility] [address] [id number] [place] [address] Apr, [facility] [place] [facility] [address] [id number] [place] [address] Apr, [facility] [place] [facility] [address] [id number] [place] [address] Apr, [facility] [place] [facility] [address] [id number] [place] [address] Apr, [facility] [place] [facility] [address] [id number] [place] [address] Mar, [facility] [place] [facility] [address] [id number] [place] [address] Mar, [facility] [place] [facility] [address] [id number] [place] [address] Mar, [facility] [place] [facility] [address] [id number] [place] [address] Mar, [facility] [place] [facility] [address] [id number] [place] [address] Mar, [facility] [place] [facility] [address] [id number] [place] [address] Mar, [facility] [place] [facility] [address] [id number] [place] [address] Feb, [facility] [place] [facility] [address] [id number] [place] [address] Feb, [facility] [place] [facility] [address] [facility] [id number] [place] [address] Feb, [facility] [place] [facility] [address] [id number] [place] [address] Feb, [facility] [place] [facility] [address] [id number] [place] [address] Feb, [facility] [place] [facility] [address] [id number] [place] [address] Feb, [facility] [place] [facility] [address] [facility] [id number] [place] [address] Feb, [facility] [place] [facility] [address] [id number] [place] [address] Feb, [facility] [place] [facility] [address] [id number] [place] [address] Feb, [facility] [place] [facility] [address] [id number] [place] [address] Feb, [facility] [place] [facility] [address] [id number] [place] [address] Feb, [facility] [place] [facility] [address] [id number] [place] [address] Feb, [facility] [place] [facility] [address] [id number] [place] [address] Feb, [facility] [place] [facility] [address] [id number] [place] [address] Feb, [facility] [place] [facility] [address] [id number] [place] [address] January, [facility] [place] [facility] [address] [id number] [place] [address] January, [facility] [place] [facility] [address] [id number] [place] [address] January, [facility] [place] [facility] [address] [id number] [place] [address] January, [facility] [place] [facility] [address] [id number] [place] [address] January, [facility] [place] [facility] [address] [facility] [id number] [facility] [address] January, [facility] [place] [facility] [address] [facility] [id number] [facility] [address] Dec, [facility] [place] [facility] [address] [id number] [place] [address] Dec, [facility] [place] [facility] [address] [id number] [place] [address] Dec, [facility] [place] [facility] [address] [facility] [id number] [place] [address] Dec, [facility] [place] [facility] [address] [id number] [place] [address] Dec, [facility] [place] [facility] [address] [id number] [facility] [address] Dec, [facility] [place] [facility] [address] [id number] [facility] [address] Dec, [facility] [place] [facility] [address] [facility] [id number] [facility] [address] Dec, [facility] [place] [facility] [address] [id number] [place] [address] Nov, [facility] [place] [facility] [address] [id number] [place] [address] Nov, [facility] [place] [facility] [address] [id number] [place] [address] Nov, [facility] [place] [facility] [address] [facility] [id number] [facility] [address] Nov, [facility] [place] [facility] [address] [id number] [place] [address] Nov, [facility] [place] [facility] [address] [id number] [place] [address] Nov, [facility] [place] [facility] [address] [id number] [place] [address] Nov, [facility] [place] [facility] [address] [id number] [place] [address] Nov, [facility] [place] [facility] [address] [facility] [id number] [place] [address] Oct, [facility] [place] [facility] [address] [id number] [place] [address] Oct, [facility] [place] [facility] [address] [id number] [place] [address] Oct, [facility] [place] [facility] [address] [id number] [place] [address] Oct, [facility] [place] [facility] [address] [id number] [place] [address] Oct, [facility] [place] [facility] [address] [id number] [place] [address] Oct, [facility] [place] [facility] [address] [id number] [place] [address] Oct, [facility] [place] [facility] [address] [id number] [place] [address] Oct, [facility] [place] [facility] [address] [id number] [place] [address] Oct, [facility] [place] [facility] [address] [id number] [place] [address] Oct, [facility] [place] [facility] [address] [id number] [place] [address] Sep, [facility] [place] [facility] [address] [id number] [place] [address] Sep, [facility] [place] [facility] [address] [id number] [place] [address] Sep, [facility] [place] [facility] [address] [id number] [place] [address] Sep, [facility] [place] [facility] [address] [id number] [place] [address] Sep, [facility] [place] [facility] [address] [id number] [place] [address] Sep, [facility] [place] [facility] [address] [id number] [place] [address] Aug, [facility] [place] [facility] [address] [id number] [place] [address] Aug, [facility] [place] [facility] [address] [id number] [place] [address] Aug, [facility] [place] [facility] [address] [id number] [place] [address] Aug, [facility] [place] [facility] [address] [id number] [place] [address] Aug, [facility] [place] [facility] [address] [id number] [place] [address] Aug, [facility] [place] [facility] [address] [id number] [place] [address] Aug, [facility] [place] [facility] [address] [id number] [place] [address] Aug, [facility] [place] [facility] [address] [id number] [place] [address] Jul, [facility] [place] [facility] [address] [id number] [place] [address] Jul, [facility] [place] [facility] [address] [id number] [place] [address] Jul, [facility] [place] [facility] [address] [id number] [place] [address] Jul, [facility] [place] [facility] [address] [id number] [place] [address] Jul, [facility] [place] [facility] [address] [id number] [place] [address] Jul, [facility] [place] [facility] [address] [id number] [place] [address] Jun, [facility] [place] [facility] [address] [id number] [place] [address] Jun, [facility] [place] [facility] [address] [facility] [id number] [place] [address] Jun, [facility] [place] [facility] [address] [facility] [id number] [place] [address] May, [facility] [place] [facility] [address] [facility] [id number] [place] [address] May, [facility] [place] [facility] [address] [id number] [place] [address] May, [facility] [place] [facility] [address] [id number] [place] [address] Apr, [facility] [place] [facility] [address] [id number] [place] [address] Apr, [facility] [place] [facility] [address] [id number] [place] [address] Apr, [facility] [place] [facility] [address] [id number] [place] [address] Apr, [facility] [place] [facility] [address] [id number] [place] [address] Mar, [facility] [place] [facility] [address] [id number] [place] [address] Mar, [facility] [place] [facility] [address] [id number] [place] [address] Mar, [facility] [place] [facility] [address] [id number] [place] [address] Mar, [facility] [place] [facility] [address] [id number] [place] [address] Feb, [facility] [place] [facility] [address] [id number] [place] [address] Feb, [facility] [place] [facility] [address] [id number] [place] [address] Feb, [facility] [place] [facility] [address] [id number] [place] [address] Feb, [facility] [place] [facility] [address] [id number] [place] [address] January, [facility] [address] [facility] [id number] [place] [address] January, [facility] [address] [id number] [place] [address] January, [facility] [place] [facility] [address] [id number] [place] [address] Nov, [facility] [place] [facility] [address] [id number] [place] [address] Nov, [facility] [place] [facility] [address] [facility] [id number] [place] [address] Oct, [facility] [place] [facility] [address] [id number] [place] [address] Oct, [facility] [place] [facility] [address] [id number] [place] [address] Oct, [facility] [place] [facility] [address] [id number] [place] [address] Oct, [facility] [address] [id number] [place] [address] Sep, [facility] [place] [facility] [address] [id number] [place] [address] Sep[facility] [place] [facility] [address] [id number] [place] [address] Sep, [facility] [place] [facility] [address] [id number] [place] [address] Aug, [facility] [place] [facility] [address] [id number] [place] [address] Aug, [facility] [place] [facility] [address] [id number] [place] [address] Aug, [facility] [place] [facility] [address] [id number] [place] [address] Aug, [facility] [place] [facility] [address] [id number] [place] [address] Aug, [facility] [place] [facility] [address] [id number] [place] [address] Aug, [facility] [place] [facility] [address] [id number] [place] [address] Jul, [facility] [place] [facility] [address] [id number] [place] [address] Jul, [facility] [place] [id number] [place] [address] Jun, [facility] [id number] [place] [address] Jun, [facility] [id number] [place] [address] Jun, [facility] [id number] [place] [address] Apr, [facility] [id number] [place] [address] Apr, [facility] [id number] [place] [address] Mar, [facility] [id number] [place] [address] Mar, [facility] [id number] [place] [address] Mar, [facility] [id number] [place] [address] Mar, [facility] [id number] [place] [address] Feb, [facility] [id number] [place] [address] Feb, [facility] [id number] [place] [address] Feb, [facility] [id number] [place] [address] January, [facility] [id number] [place] [address] January, [facility] [id number] [place] [address] January, [facility] [id number] [place] [address] January, [facility] [id number] [place] [address] Dec, [facility] [id number] [place] [address] Dec, [facility] [id number] [place] [address] Nov, [facility] [id number] [place] [address] Nov, [facility] [id number] [place] [address] Oct, [facility] [id number] [place] [address] Oct, [facility] [id number] [place] [address] Sep, [facility] [id number] [place] [address] Sep, [facility] [id number] [place] [address] Sep, [facility] [id number] [place] [address] Sep, [facility] [id number] [place] [address] Aug, [facility] [id number] [place] [address] Aug, [facility] [id number] [place] [address] Aug, [facility] [id number] [place] [address] Jul, [facility] [id number] [place] [address] Aug, [facility] [id number] [place] [address] Aug, [facility] [id number] [place] [address] Aug, [facility] [id number] [place] [address] Aug, [facility] [id number] [place] [address] Jul, [facility] [id number] [place] [address] Jul, [facility] [id number] [place] [address] Jul, [facility] [id number] [place] [address] Jun, [facility] [id number] [place] [address] Jun, [facility] [id number] [place] [address] Jun, [facility] [id number] [place] [address] Apr, [facility] [id number] [place] [address] Mar, IMMUNIZATIONS No Known Immunizations SOCIAL HISTORY Never Assessed REASON FOR VISIT PLAN OF CARE VITAL SIGNS Blood pressure systolic 150 mmHg 2014-02-21 Blood pressure diastolic 88 mmHg 2014-02-21 MEDICATIONS Unknown Medications RESULTS No Results PROCEDURES Procedure Date Ordered Result Body Site DRAIN/INJECT, JOINT/BURSA February 21, 2014 INSTRUCTIONS MEDICATIONS ADMINISTERED No Known Medications [...]
--- OUTSIDE RECORDS SUMMARY | 2020-03-18 15:18 | XMS REPORT ---
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 Name Role Phone NUHA Benavides Unavailable PROBLEMS Type Condition ICD9-CM Code LHU31-YB Code Onset Dates Condition S tatus SNOMED Code Problem Hypertension, benign I10 Active 43649944 Problem Other chronic pain G89.29 Active 8 8252254 Problem Lumbago with sciatica, unspecified side M54.40 Active 599979634 Problem Controlled type 2 diabetes m ellitus without complication, without long- term current use of insulin E11.9 Active 939363748 Problem Lumbago with sciatica, right side M54.41 Active 468987401 Problem Adjustment disorder with disturbance of emotion F4 3.29 Active 95894898 Problem MELE (obstructive sleep apnea) G47.33 Active 04731793 Problem Non morbid obesity E66.9 Active 4 77409122 Problem Hammer toe of left foot M20.42 Active 615387599 Problem Mood disorder F39 Active 043010 05 Problem Deformity of left foot M21.962 Active 294115247 Problem Lumbago with sciatica, left side M54.42 Active 379852571 Problem Erectile dysfunction due to diseases classified elsewhere N52.1 Active 743529675 Problem Obstructive sleep apnea syndrome G47.33 Active 36626612 Problem Type 2 diabetes mellitus wit h diabetic neuropathy, without long-term current use of insulin E11.40 Active 92755 006 Problem Essential hypertension I10 Active 66128670 ALLERGIES No Information ENCOUNTERS Encounter Location Date Diagnosis [facility] [address] [id number] [place] [address] Sep, [facility] [address] [id number] [place] [address] Aug, [facility] [address] [id number] [place] [address] Jul, Lumbago with sciatica, unspecified side M54.40 [place] [id number] [place] [address] Jun, Lumbago with sciatica, unspecified side M54.40 [place] [address] [address] Jun, URI, acute J06.9 [place] [address] [address] May, Lumbago with sciatica, unspecified side M54.40 [place] [address] [address] May, [place] [address] [address] May, Type 2 diabetes mellitus with diabetic n europathy, without long-term current use of insulin E11.40 and Hammer toe of left foot M20.42 [place] [id number] [place] [address] May, [place] [address] [address] May, [place] [address] [address] May, [place] [address] [address] Apr, Lumbago with sciatica, unspecified side M54.40 [place] [address] [address] Apr, [facility] [address] [address] Apr, [place] [address] [place] [address] Apr, Hammer toe of left foot M20. 42 ; Chest pain R07.9 ; Preoperative examination Z01.818 and Morbid obesity E66.01 [place] [address] [address] Apr, Morbid obesity E66.01 ; Bronchitis J40 a nd High risk medications (not anticoagulants) long-term use Z79.899 [place] [address] [address] Apr, Lumbago with sciatica, unspecified side M54.40 [place] [address] [address] Apr, [place] [address] [address] Mar, Lumbar neuritis M54.16 and Morbid obesit y E66.01 [place] [address] [address] Mar, [place] [address] [address] Mar, [place] [address] [address] Mar, Lumbago with sciatica, unspecified side M54.40 [place] [address] [address] Mar, Morbid obesity E66.01 ; Coughing R05 ; 2 + pitting edema R60.9 and Controlled type 2 diabetes mellitus without complication, without long-term current use of insulin E11.9 [place] [address] [address] Feb, [address] [address] Feb, Lumbago with sciatica, unspecified side M54.40 [place] [address] [address] Feb, [place] [address] [address] Feb, Controlled type 2 diabetes mellitus with out complication, without long-term current use of insulin E11.9 and Morbid obesity E66.01 [facility] [address] [address] January, Deformity of left foot M21.962 [facility] [address] [address] January, [facility] [address] [address] January, Lumbago with sciatica, unspecified side M54.40 [place] [address] [address] January, [place] [address] [address] January, Lumbago with sciatica, unspecified side M54.40 [place] [address] [address] January, [place] [address] [address] January, Acute right-sided thoracic back pain M54 .6 [place] [address] [address] January, Acute right-sided thoracic back pain M54 .6 [place] [address] [address] January, Chest pain, unspecified type R07.9 ; Mor bid obesity E66.01 and Scabies B86 [place] [address] [address] Dec, Lumbago with sciatica, unspecified side M54.40 [place] [address] [address] Dec, Toenail fungus B35.1 [place] [address] [address] Dec, Toenail fungus B35.1 [place] [address] [address] Dec, Acute right-sided thoracic back pain M54 .6 [place] [address] [address] Dec, Lumbago with sciatica, unspecified side M54.40 [place] [address] [address] Nov, Hammer toe of left foot M20.42 ; Deformi ty of left foot M21.962 and Type 2 diabetes mellitus with diabetic neuropathy, without long-term current use of insulin E11.40 [facility] WALK IN [facility] [address] [facility] [id number] [address] [place] [address] Nov, Acute right-sided thoracic b ack pain M54.6 ; Morbid obesity E66.01 and Rt flank pain R10.9 [place] [address] [address] Nov, Lumbago with sciatica, unspecified side M54.40 [place] [address] [address] Oct, Lumbago with sciatica, unspecified side M54.40 [place] [address] [address] Sep, Lumbago with sciatica, unspecified side M54.40 [place] [address] [address] Sep, [place] [address] [address] Sep, BMI 40.0-44.9, adult Z68.41 ; Lumbago wi th sciatica, left side M54.42 ; Lumbago with sciatica, right side M54.41 and Other chronic pain G89.29 [place] [address] [address] Aug, Lumbago with sciatica, unspecified side M54.40 [place] [address] [address] Aug, Type 2 diabetes mellitus with diabetic n europathy, without long-term current use of insulin E11.40 ; Hammer toe of left foot M20.42 ; Hypertension, benign I10 and Frequent headaches R51 [place] [address] [address] Jul, Lumbago with sciatica, unspecified side M54.40 [place] [address] [address] Jul, [place] [address] [address] Jul, Essential hypertension I10 and Controlle d type 2 diabetes mellitus without complication, without long-term current use of insulin E11.9 [place] [address] [address] Jul, Essential hypertension I10 ; Controlled type 2 diabetes mellitus without complication, without long-term current use of insulin E11.9 and BMI 40.0-44.9, adult Z68.41 [place] [address] [address] Jul, Dysfunction of left eustachian tube H69. 82 [place] [address] [address] Jul, Lumbago with sciatica, unspecified side M54.40 [facility] [id number] [place] [id number] Jun, Dental examination Z01.20 [place] [address] [address] Jun, Lumbago with sciatica, unspecified side M54.40 and Encounter for immunization Z23 [place] [address] [address] Jun, Dysfunction of left eustachian tube H69. 82 [facility] [address] [facility] [address] [id number] [place] [id number] Jun, Dental examination Z01.20 [facility] [id number] [place] [address] Jun, Other chronic pain G89.29 [facility] [address] [facility] [place] [id number] Jun, Dental examination Z01.20 [facility] [address] [address] Jun, [facility] [address] [place] [address] Jun, Bronchitis J40 ; Dysfunction of left eus tachian tube H69.82 and BMI 45.0-49.9, adult Z68.42 [place] [address] [address] Jun, Lumbago with sciatica, unspecified side M54.40 [place] [address] [address] May, Type 2 diabetes mellitus with diabetic n europathy, without long-term current use of insulin E11.40 and Hypertension, benign I10 [place] [address] [address] May, Lumbago with sciatica, unspecified side M54.40 [facility]ARE [address] [facility] [id number] [address] [place] [address] Apr, [facility] [address] [address] Apr, Controlled type 2 diabetes mellitus with out complication, without long-term current use of insulin E11.9 ; Insect bite (nonvenomous), right ankle, initial encounter S90.561A ; Local infection of the skin and subcutaneous tissue, unspecified L08.9 ; Acute swimmer''s ear of left side H60.332 and BMI 45.0-49.9, adult Z68.42 [place] [address] [address] Apr, Lumbago with sciatica, unspecified side M54.40 [place] [address] [address] Mar, [place] [address] [address] Mar, Lumbago with sciatica, unspecified side M54.40 [place] [address] [address] Feb, Lumbago with sciatica, unspecified side M54.40 [place] [address] [address] Feb, BMI 45.0-49.9, adult Z68.42 and Obstruct jaida sleep apnea syndrome G47.33 [place] [address] [address] January, Lumbar neuritis M54.16 [place] [address] [address] January, Lumbago with sciatica, unspecified side M54.40 [place] [address] [address] Dec, Controlled type 2 diabetes mellitus with out complication, without long-term current use of insulin E11.9 ; Erectile dysfunction due to diseases classified elsewhere N52.1 and Mood disorder F39 [place] [address] [address] Dec, Lumbago with sciatica, unspecified side M54.40 [place] [address] [address] Dec, Obstructive sleep apnea syndrome G47.33 [place] [address] [address] Nov, Lumbago with sciatica, unspecified side M54.40 ; Hypertension, benign I10 and Mood disorder F39 [place] [address] [address] Nov, Other chronic pain G89.29 [facility] [address] [address] Nov, Lumbago with sciatica, unspecified side M54.40 [facility] [address] [id number] Nov, Dental examination Z01.20 [facility] [address] [address] Oct, [facility] [address] [address] Oct, Lumbago with sciatica, unspecified side M54.40 [facility] [address] [address] Oct, Lumbago with sciatica, unspecified side M54.40 [facility] [address] [address] Oct, [facility] [address] [address] Oct, [facility] [address] [id number] Oct, Dental examination Z01.20 [facility] [address] [address] Oct, [facility] [address] [address] Oct, Pain in right knee M25.561 [facility] [address] [address] Sep, [facility] [address] [address] Sep, Other chronic pain G89.29 [facility] [address] [address] Sep, Lumbago with sciatica, unspecified side M54.40 [facility] [address] [place] [address] Sep, [facility] WALK IN [facility] [id number] [place] [address] Sep, Viral URI J06.9 and BMI 45.0 -49.9, adult Z68.42 [facility] WALK IN [facility] [address] [id number] [place] [address] Aug, Foreign body hand S60.559A a nd BMI 45.0-49.9, adult Z68.42 [place] [address] [address] Aug, [place] [address] [address] Aug, Lumbago with sciatica, unspecified side M54.40 [place] [address] [address] Aug, Vertigo R42 ; Dysfunction of both eustac hian tubes H69.83 ; Low back pain M54.5 and Other chronic pain G89.29 [facility] WALK IN [facility] [address] [place] [address] [id number] [place] [address] Aug, Dizziness R42 and Acute bila teral otitis media H66.93 [place] [address] [address] Aug, Lumbago with sciatica, unspecified side M54.40 [facility] [address] [facility] [place] [id number] Jul, Dental examination Z01.20 [place] [id number] [place] [address] Jul, [place] [address] [address] Jul, [place] [address] [address] Jul, Dysfunction of both eustachian tubes H69 .83 [place] [address] [address] Jul, Controlled type 2 diabetes mellitus with out complication, without long-term current use of insulin E11.9 [facility] [address] [address] Jul, Controlled type 2 diabetes mellitus with out complication, without long-term current use of insulin E11.9 [facility] IN [facility] [address] [facility] [id number] [address] [place] [address] Jul, Dizziness R42 and BMI 40.0-4 4.9, adult Z68.41 [facility] [address] [address] Jul, Controlled type 2 diabetes mellitus with out complication, without long-term current use of insulin E11.9 [place] [address] [address] Jul, Lumbago with sciatica, unspecified side M54.40 [facility] [address] [id number] Jul, Dental examination Z01.20 [place] [address] [address] Jun, [facility] [address] [id number] Jun, Dental examination Z01.20 [place] [address] [address] Jun, Controlled type 2 diabetes mellitus with out complication, without long-term current use of insulin E11.9 [facility] [address] [address] Jun, Lumbago with sciatica, unspecified side M54.40 [facility] [address] [id number] May, Dental examination Z01.20 [facility] [address] [address] May, Controlled type 2 diabetes mellitus with out complication, without long-term current use of insulin E11.9 [facility] [address] [id number] May, Dental examination Z01.20 [facility] [address] [address] 18 May, 2017 Bronchitis J40 ; Dry mouth R68.2 ; Non m orbid obesity E66.9 and Controlled type 2 diabetes mellitus without complication, without long-term current use of insulin E11.9 [facility] [address] [address] 16 May, 2017 Encounter for immunization Z 23 [facility] [address] [address] 07 May, 2017 Lumbago with sciatica, unspecified side M54.40 [facility] [address] [address] 05 May, 2017 [facility] [address] [id number] Apr, Dental examination Z01.20 [facility] [address] [address] Apr, Lumbago with sciatica, unspecified side M54.40 [facility] IN CARE [address] [address] Mar, Lumbago with sciatica, left side M54.42 [facility] [address] [address] Mar, [facility] [address] [address] Mar, Lumbar neuritis M54.16 [facility] [address] [address] Mar, [facility] [address] [id number] Mar, Dental examination Z01.20 [facility] [address] [address] Mar, MELE (obstructive sleep apnea) G47.33 ; N europathy involving both lower extremities G57.93 and Frequent headaches R51 [place] [address] [address] Mar, Lumbago with sciatica, unspecified side M54.40 [place] [address] [address] Feb, Lumbago with sciatica, unspecified side M54.40 and Controlled type 2 diabetes mellitus without complication, without long-term current use of insulin E11.9 [place] [address] [address] January, Hypertension, benign I10 and Bilateral l ow back pain with sciatica, sciatica laterality unspecified M54.40 [place] [address] [address] January, Hypertension, benign I10 ; Lumbago with sciatica, unspecified side M54.40 ; Other chronic pain G89.29 and Controlled type 2 diabetes mellitus without complication, without long-term current use of insulin E11.9 [place] [address] [address] January, Lumbar neuritis M54.16 [place] [address] [address] January, [place] [address] [address] Dec, Lumbago with sciatica, right side M54.41 and Lumbar neuritis M54.16 [place] [address] [address] Dec, Lumbar neuritis M54.16 [place] [address] [address] Dec, Lumbar neuritis M54.16 [place] [address] [address] Nov, Lumbar neuritis M54.16 ; Lumbago with sc iatica, right side M54.41 ; Controlled type 2 diabetes mellitus without complication, without long-term current use of insulin E11.9 and Rash and nonspecific skin eruption R21 [place] [address] [address] 09 Nov, 2016 Lumbar neuritis M54.16 and Poison miroslava L2 3.7 [place] [address] [address] Oct, Lumbar neuritis M54.16 ; Coughing R05 an d Mood disorder F39 [address] [address] Sep, Lumbago with sciatica, right side M54.[address] [address] Sep, Adjustment disorder with disturbance of emotion F43.29 and Pain management R52 [place] [address] [address] Sep, [place] [address] [address] Sep, [address] [address] Sep, Controlled type 2 diabetes mellitus with out complication, without long-term current use of insulin E11.9 and Lumbago with sciatica, unspecified side M54.40 [place] [address] [address] Aug, Controlled type 2 diabetes mellitus with out complication, without long-term current use of insulin E11.9 ; Pain in right knee M25.561 ; Pain in left knee M25.562 ; Other chronic pain G89.29 ; Lumbago with sciatica, right side M54.41 ; Neck pain M54.2 and Encounter for immunization Z23 [address] [address] Jul, [address] [id number] [place] [address] Jul, Controlled type 2 diabetes mellitus with out complication, without long-term current use of insulin E11.9 [place] [address] [address] 17 Jul, 2016 [place] [address] [address] Jul, [place] [address] [address] Jul, Lumbago with sciatica, left side M54.42 ; Lumbago with sciatica, right side M54.41 and Other chronic pain G89.29 [place] [address] [address] Jul, [place] [address] [address] Jul, [place] [address] [address] Jun, [place] [address] [address] Jun, Lumbago with sciatica, right side M54.41 and Other chronic pain G89.29 [place] [address] [address] Jun, Cervicalgia M54.2 ; Lumbago with sciatic a, unspecified side M54.40 and Other chronic pain G89.29 [place] [address] [address] 15 May, 2016 Pain in right knee M25.561 ; Pain in lef t knee M25.562 and Other chronic pain G89.29 [place] [address] [address] 14 May, 2016 [place] [address] [address] Apr, Other chronic pain G89.29 and Pain in ri ght knee M25.561 [facility] [address] [address] Apr, Pain in right knee M25.561 [facility] [address] [address] Mar, [place] [address] [address] Mar, Mood disorder F39 and Controlled type 2 diabetes mellitus without complication, without long-term current use of insulin E11.9 [place] [address] [address] Mar, Pain in right knee M25.561 ; Pain in lef t knee M25.562 ; Other chronic pain G89.29 ; Obstructive sleep apnea syndrome G47.33 ; Mood disorder F39 and Controlled type 2 diabetes mellitus without complication, without long-term current use of insulin E11.9 [place] [address] [address] Mar, [facility] [address] [id number] Feb, Dental examination Z01.20 [place] [address] [address] Feb, [place] [address] [address] Feb, Osteoarthritis of right knee, unspecifie d osteoarthritis type M17.9 [place] [address] [address] January, [facility] [address] [id number] January, Dental examination Z01.20 [facility] [address] [address] January, [facility] [address] [id number] January, Dental examination Z01.20 and Caries K02 .9 [place] [address] [address] [place] [address] Dec, Encounter for other preprocedural examin ation Z01.818 [facility] [address] [address] Dec, [facility] [address] [address] Dec, Knee pain M25.569 [facility] [address] [address] Dec, Pain in right knee M25.561 [facility] [address] [address] Dec, [facility] [address] [address] Dec, [facility] [address] [address] Dec, Encounter for immunization Z23 [facility] [address] [address] Dec, [facility] [address] [address] Dec, [facility] [address] [address] Nov, [facility] [address] [address] Nov, Hypertension, benign I10 ; Cervicalgia M 54.2 ; Pain in right knee M25.561 and Pain in left knee M25.562 [facility] [address] [address] Oct, [facility] [address] [address] Oct, [facility] [address] [address] Oct, Osteoarthritis of both knees M17.0 [facility] [address] [address] Oct, [place] [address] [address] Oct, Low back pain M54.5 [place] [address] [address] Oct, Low back pain M54.5 ; Sciatica, unspecif ied side M54.30 ; Pain in right knee M25.561 ; Pain in left knee M25.562 ; Pain in right shoulder M25.511 and Pain in left shoulder M25.[address] [address] Oct, [place] [address] [address] Sep, Pain in right hip M25.[address] [address] Sep, Acute upper respiratory infection, unspe cified J06.[address] [address] Aug, Acute upper respiratory infection, unspe cified J06.9 and Other viral agents as the cause of diseases classified elsewhere B97.[address] [address] Jul, Arthritis M19.[address] [address] Jun, Arthritis M19.90 ; Pain in right hip M25 .551 ; Pain in left hip M25.552 ; Bilateral low back pain with sciatica, sciatica laterality unspecified M54.40 ; Neck pain M54.2 ; Upper back pain M54.9 and Knee pain, unspecified laterality M25.[address] [address] May, Osteoarthritis of both knees 715.[address] [place] [address] May, Rash 782.1 [facility] [address] [address] Apr, Lumbar strain 847.2 [facility] [address] [address] Apr, Rash 782.1 [facility] [address] [address] Mar, Rash 782.1 [facility] [address] [address] Feb, Rash 782.1 ; Hemorrhoids 455.6 and Const ipation 564.00 [facility] [address] [address] Feb, Osteoarthritis of both knees 715.96 [facility] [address] [address] January, [facility] [address] [address] Dec, [facility] [address] [address] 14 Dec, 2014 [facility] [address] [address] Dec, [facility] [address] [address] Nov, [facility] [address] [address] Nov, [facility] [address] [address] Nov, [facility] [address] [address] Nov, [facility] [address] [address] Nov, [facility] [address] [place] [address] Nov, [facility] [address] [facility] [id number] [place] [address] Oct, [facility] [address] [id number] [place] [address] Oct, 2014 [facility] [address] [id number] [place] [address] Oct, [facility] [address] [id number] [place] [address] Oct, 2014 [facility] [address] [id number] [place] [address] Oct, [facility] [address] [id number] [place] [address] Oct, 2014 [facility] [address] [id number] [place] [address] Oct, [facility] [address] [id number] [place] [address] Oct, [facility] [address] [id number] [place] [address] Oct, [facility] [address] [id number] [place] [address] Oct, [facility] [address] [id number] [place] [address] Oct, [facility] [address] [id number] [place] [address] Sep, [facility] [address] [id number] [place] [address] Sep, [facility] [address] [id number] [place] [address] Sep, [facility] [address] [id number] [place] [address] Sep, [facility] [address] [id number] [place] [address] Sep, [facility] [address] [id number] [place] [address] Sep, [facility] [address] [id number] [place] [address] Aug, [facility] [address] [id number] [place] [address] Aug, [facility] [address] [id number] [place] [address] Aug, [facility] [address] [id number] [place] [address] Aug, [facility] [address] [id number] [place] [address] Aug, [facility] [address] [id number] [place] [address] Aug, [facility] [address] [id number] [place] [address] Aug, [facility] [address] [id number] [place] [address] Aug, [facility] [address] [id number] [place] [address] Aug, [facility] [address] [id number] [place] [address] Aug, [facility] [address] [id number] [place] [address] Jul, [facility] [address] [id number] [place] [address] Jul, [facility] [address] [id number] [place] [address] Jul, [facility] [address] [id number] [place] [address] Jul, [facility] [address] [id number] [place] [address] Jun, [facility] [address] [id number] [place] [address] Jun, [facility] [address] [facility] [id number] [place] [address] Jun, [facility] [address] [id number] [place] [address] Jun, [facility] [address] [id number] [place] [address] Jun, [facility] [address] [id number] [place] [address] Jun, [facility] [address] [id number] [place] [address] Jun, [facility] [address] [id number] [place] [address] Jun, [facility] [address] [id number] [place] [address] 24 May, 2014 [facility] [address] [id number] [place] [address] 24 May, 2014 [facility] [address] [id number] [place] [address] 19 May, 2014 [facility] [address] [id number] [place] [address] May, [facility] [address] [id number] [place] [address] 15 May, 2014 [facility] [address] [id number] [place] [address] 15 May, 2014 [facility] [address] [id number] [place] [address] 15 May, 2014 [facility] [address] [id number] [place] [address] 15 May, 2014 [facility] [address] [id number] [place] [address] Apr, [facility] [address] [id number] [place] [address] Apr, [facility] [address] [id number] [place] [address] Apr, [facility] [address] [id number] [place] [address] Apr, [facility] [address] [id number] [place] [address] Apr, [facility] [address] [id number] [place] [address] Apr, [facility] [address] [id number] [place] [address] Apr, [facility] [address] [id number] [place] [address] Apr, [facility] [address] [id number] [place] [address] Apr, [facility] [address] [id number] [place] [address] Apr, [facility] [address] [id number] [place] [address] Apr, [facility] [address] [id number] [place] [address] Apr, [facility] [address] [id number] [place] [address] Mar, [facility] [address] [id number] [place] [address] Mar, [facility] [address] [id number] [place] [address] Mar, [facility] [address] [id number] [place] [address] Mar, [facility] [address] [id number] [place] [address] Mar, [facility] [address] [id number] [place] [address] Mar, [facility] [address] [id number] [place] [address] Feb, [facility] [address] [facility] [id number] [facility] [place] [address] Feb, [facility] [address] [facility] [id number] [facility] [address] Feb, [facility] [address] [facility] [id number] [place] [address] Feb, [facility] [address] [facility] [id number] [facility] [place] [address] Feb, [facility] [address] [facility] [id number] [facility] [address] Feb, [facility] [address] [facility] [id number] [facility] [place] [address] Feb, [facility] [address] [id number] [place] [address] Feb, [facility] [address] [id number] [facility] [place] [address] Feb, [facility] [address] [facility] [id number] [place] [address] Feb, [facility] [address] [id number] [place] [address] Feb, [facility] [address] [id number] [place] [address] Feb, [facility] [address] [id number] [place] [address] Feb, [facility] [address] [facility] [id number] [place] [address] Feb, [facility] [address] [facility] [id number] [place] [address] January, [facility] [address] [facility] [id number] [place] [address] January, [facility] [address] [id number] [place] [address] January, [facility] [address] [id number] [facility] [place] [address] January, [facility] [address] [id number] [place] [address] January, [facility] [address] [id number] [place] [address] January, [facility] [address] [id number] [place] [address] Dec, [facility] [address] [id number] [place] [address] Dec, [facility] [address] [id number] [place] [address] Dec, [facility] [address] [id number] [place] [address] Dec, [facility] [address] [id number] [place] [address] Dec, [facility] [address] [id number] [place] [address] Dec, [facility] [address] [id number] [place] [address] Dec, [facility] [address] [id number] [place] [address] Dec, [facility] [address] [id number] [place] [address] Nov, [facility] [address] [id number] [place] [address] Nov, [facility] [address] [id number] [place] [address] Nov, [facility] [address] [id number] [place] [address] Nov, [facility] [address] [id number] [place] [address] Nov, [facility] [address] [id number] [place] [address] Nov, [facility] [address] [id number] [place] [address] Nov, [facility] [address] [id number] [place] [address] Nov, [facility] [address] [id number] [place] [address] Oct, [facility] [address] [id number] [place] [address] Oct, [facility] [address] [id number] [place] [address] Oct, [facility] [address] [id number] [place] [address] Oct, [facility] [address] [id number] [place] [address] Oct, [facility] [address] [id number] [place] [address] Oct, [facility] [address] [id number] [place] [address] Oct, [facility] [address] [id number] [place] [address] Oct, [facility] [address] [id number] [place] [address] Oct, [facility] [address] [id number] [place] [address] Oct, [facility] [address] [id number] [place] [address] Sep, [facility] [address] [id number] [place] [address] Sep, [facility] [address] [id number] [place] [address] Sep, [facility] [address] [id number] [place] [address] Sep, [facility] [address] [id number] [place] [address] 07 Sep, 2013 [facility] [address] [id number] [place] [address] Sep, [facility] [address] [id number] [place] [address] Aug, [facility] [address] [id number] [place] [address] Aug, [facility] [address] [id number] [place] [address] Aug, [facility] [address] [id number] [place] [address] Aug, [facility] [address] [id number] [place] [address] Aug, [facility] [address] [id number] [place] [address] Aug, [facility] [address] [id number] [place] [address] Aug, [facility] [address] [id number] [place] [address] Aug, [facility] [address] [id number] [place] [address] Jul, [facility] [address] [id number] [place] [address] Jul, [facility] [address] [id number] [place] [address] Jul, [facility] [address] [id number] [place] [address] Jul, [facility] [address] [id number] [place] [address] Jul, [facility] [address] [id number] [place] [address] Jul, [facility] [address] [id number] [place] [address] Jun, [facility] [address] [id number] [place] [address] Jun, [facility] [address] [id number] [place] [address] Jun, [facility] [address] [id number] [place] [address] May, [facility] [address] [id number] [place] [address] May, [facility] [address] [id number] [place] [address] May, [facility] [address] [id number] [place] [address] Apr, [facility] [address] [id number] [place] [address] Apr, [facility] [address] [id number] [place] [address] Apr, [facility] [address] [id number] [place] [address] Apr, [facility] [address] [id number] [place] [address] Mar, [facility] [address] [id number] [place] [address] Mar, [facility] [address] [id number] [place] [address] Mar, [facility] [address] [id number] [place] [address] Mar, [facility] [address] [id number] [place] [address] Feb, [facility] [address] [id number] [place] [address] Feb, [facility] [address] [id number] [place] [address] Feb, [facility] [address] [id number] [place] [address] Feb[facility] [address] [facility] [id number] [place] [address] January, [facility] [address] [id number] [place] [address] January, [facility] [address] [id number] [place] [address] January, [facility] [address] [id number] [place] [address] Nov, [facility] [address] [facility] [id number] [place] [address] Nov, [facility] [address] [id number] [place] [address] Oct, [facility] [address] [id number] [place] [address] Oct, [facility] [address] [id number] [place] [address] Oct, [facility] [address] [id number] [place] [address] Oct, [facility] [address] [id number] [place] [address] Sep, [facility] [address] [id number] [place] [address] Sep, [facility] [address] [id number] [place] [address] Sep, [facility] [address] [id number] [place] [address] Aug, [facility] [address] [id number] [place] [address] Aug, [facility] [address] [id number] [place] [address] Aug, [facility] [address] [id number] [place] [address] Aug, [facility] [address] [id number] [place] [address] Aug, [facility] [address] [id number] [place] [address] Aug, [facility] [address] [id number] [place] [address] Jul, [facility] [address] [id number] [place] [address] Jul, [facility] [address] [id number] [place] [address] Jun, [facility] [address] [id number] [place] [address] Jun, [facility] [address] [id number] [place] [address] Jun, [facility] [address] [id number] [place] [address] Apr, [facility] [address] [id number] [place] [address] Apr, [facility] [address] [id number] [place] [address] Mar, [facility] [address] [id number] [place] [address] Mar, [facility] [address] [id number] [place] [address] Mar, [facility] [address] [id number] [place] [address] Mar, [facility] [address] [id number] [place] [address] Feb, [facility] [address] [id number] [place] [address] Feb, [facility] [address] [id number] [place] [address] Feb, [facility] [address] [id number] [place] [address] January, [facility] [address] [id number] [place] [address] January, [facility] [address] [id number] [place] [address] January, [facility] [address] [id number] [place] [address] January, [facility] [address] [id number] [place] [address] Dec, [facility] [address] [facility] [id number] [place] [address] Dec, [facility] [address] [id number] [place] [address] Nov, [facility] [address] [id number] [place] [address] Nov, [facility] [id number] [place] [address] 16 Oct, 2011 [facility] [address] [id number] [place] [address] Oct, [facility] [address] [id number] [place] [address] Sep, [facility] [address] [id number] [place] [address] Sep, [facility] [address] [id number] [place] [address] Sep, [facility] [address] [id number] [place] [address] Sep, [facility] [address] [id number] [place] [address] Aug, [facility] [address] [id number] [place] [address] Aug, [facility] [address] [id number] [place] [address] Aug, [facility] [address] [id number] [place] [address] Jul, [facility] [address] [id number] [place] [address] Aug, [facility] [id number] [place] [address] Aug, [facility] [id number] [place] [address] Aug, [facility] [id number] [place] [address] Aug, [facility] [id number] [place] [address] Jul, [facility] [id number] [place] [address] Jul, [facility] [id number] [place] [address] Jul, [facility] [id number] [place] [address] Jun, [facility] [id number] [place] [address] Jun, [facility] [id number] [place] [address] Jun, [facility] [id number] [place] [address] Apr, [facility] [id number] [place] [address] Mar, IMMUNIZATIONS No Known Immunizations SOCIAL HISTORY Never Assessed REASON FOR VISIT PLAN OF CARE VITAL SIGNS Height 66 in 2014-02-14 Weight 257.5 lbs 2014-02-14 Temperature 97.8 degrees Fahrenheit 2014-02-14 Heart Rate 84 bpm 2014-02-14 Respiratory Rate 20 2014-02-14 MEDICATIONS Unknown Medications RESULTS No Results PROCEDURES Procedure Date Ordered Result Body Site THER/PROPH/DIAG INJ, SC/IM February 14, 2014 INJ TRIAMCINOLONE ACETONIDE 10 MG February 14, 2014 INJ METHYLPRDNISOLONE ACTAT 40 MG February 14, 2014 INSTRUCTIONS MEDICATIONS ADMINISTERED No Known [...]
--- OUTSIDE RECORDS SUMMARY | 2020-03-18 15:19 | XMS REPORT ---
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 Name Role Phone REYNA WAYNE Unavailable PROBLEMS Type Condition ICD9-CM Code RFT43-GZ Code Onset Dates Condition S tatus SNOMED Code Problem Hypertension, benign I10 Active 87474731 Problem Other chronic pain G89.29 Active 8 5038166 Problem Lumbago with sciatica, unspecified side M54.40 Active 551886188 Problem Controlled type 2 diabetes m ellitus without complication, without long- term current use of insulin E11.9 Active 929563256 Problem Lumbago with sciatica, right side M54.41 Active 976276087 Problem Adjustment disorder with disturbance of emotion F4 3.29 Active 76796291 Problem MELE (obstructive sleep apnea) G47.33 Active 07535669 Problem Non morbid obesity E66.9 Active 4 07334582 Problem Hammer toe of left foot M20.42 Active 455232960 Problem Mood disorder F39 Active 551095 05 Problem Deformity of left foot M21.962 Active 149694104 Problem Lumbago with sciatica, left side M54.42 Active 702849230 Problem Erectile dysfunction due to diseases classified elsewhere N52.1 Active 485311647 Problem Obstructive sleep apnea syndrome G47.33 Active 83840820 Problem Type 2 diabetes mellitus wit h diabetic neuropathy, without long-term current use of insulin E11.40 Active 59428 006 Problem Essential hypertension I10 Active 81126839 ALLERGIES No Information ENCOUNTERS Encounter Location Date Diagnosis [facility] [address] [facility] [place] [address] Sep, [facility] [address] [facility] [place] [address] Aug, [facility] [address] [facility] [place] [address] Jul, Lumbago with sciatica, unspecified side M54.40 [facility] [address] [address] Jun, Lumbago with sciatica, unspecified side M54.40 [facility] [address] [address] Jun, URI, acute J06.9 [facility] [address] [address] May, Lumbago with sciatica, unspecified side M54.40 [place] [address] [address] May, [place] [address] [address] May, Type 2 diabetes mellitus with diabetic n europathy, without long-term current use of insulin E11.40 and Hammer toe of left foot M20.42 [place] [address] [address] May, [place] [address] [address] May, [place] [address] [address] May, [place] [address] [address] Apr, Lumbago with sciatica, unspecified side M54.40 [place] [address] [address] Apr, [facility] [address] [address] Apr, [address] [place] [address] Apr, Hammer toe of left foot M20. 42 ; Chest pain R07.9 ; Preoperative examination Z01.818 and Morbid obesity E66.01 [place] [address] [address] Apr, Morbid obesity E66.01 ; Bronchitis J40 a nd High risk medications (not anticoagulants) long-term use Z79.899 [place] [address] [address] Apr, Lumbago with sciatica, unspecified side M54.40 [place] [address] [address] Apr, [place] [address] [address] Mar, Lumbar neuritis M54.16 and Morbid obesit y E66.01 [place] [address] [address] Mar, [place] [address] [address] Mar, [place] [address] [address] Mar, Lumbago with sciatica, unspecified side M54.40 [place] [address] [address] Mar, Morbid obesity E66.01 ; Coughing R05 ; 2 + pitting edema R60.9 and Controlled type 2 diabetes mellitus without complication, without long-term current use of insulin E11.9 [place] [address] [address] Feb, [place] [address] [address] Feb, Lumbago with sciatica, unspecified side M54.40 [place] [address] [address] Feb, [place] [address] [address] Feb, Controlled type 2 diabetes mellitus with out complication, without long-term current use of insulin E11.9 and Morbid obesity E66.01 [place] [address] [address] January, Deformity of left foot M21.962 [facility] [address] [address] January, [facility] [address] [address] January, Lumbago with sciatica, unspecified side M54.40 [place] [address] [address] January, [place] [address] [address] January, Lumbago with sciatica, unspecified side M54.40 [place] [address] [address] January, [place] [address] [address] January, Acute right-sided thoracic back pain M54 .6 [place] [address] [address] January, Acute right-sided thoracic back pain M54 .6 [place] [address] [address] January, Chest pain, unspecified type R07.9 ; Mor bid obesity E66.01 and Scabies B86 [place] [address] [address] Dec, Lumbago with sciatica, unspecified side M54.40 [place] [address] [address] Dec, Toenail fungus B35.1 [place] [address] [address] Dec, Toenail fungus B35.1 [place] [address] [address] Dec, Acute right-sided thoracic back pain M54 .6 [place] [address] [address] Dec, Lumbago with sciatica, unspecified side M54.40 [facility] [address] [address] Nov, Hammer toe of left foot M20.42 ; Deformi ty of left foot M21.962 and Type 2 diabetes mellitus with diabetic neuropathy, without long-term current use of insulin E11.40 [facility] [address] [facility] [id number] [address] [place] [address] Nov, Acute right-sided thoracic b ack pain M54.6 ; Morbid obesity E66.01 and Rt flank pain R10.9 [place] [address] [address] Nov, Lumbago with sciatica, unspecified side M54.40 [place] [address] [address] Oct, Lumbago with sciatica, unspecified side M54.40 [place] [address] [address] Sep, Lumbago with sciatica, unspecified side M54.40 [place] [address] [address] Sep, [place] [address] [address] Sep, BMI 40.0-44.9, adult Z68.41 ; Lumbago wi th sciatica, left side M54.42 ; Lumbago with sciatica, right side M54.41 and Other chronic pain G89.29 [place] [address] [address] Aug, Lumbago with sciatica, unspecified side M54.40 [place] [address] [address] Aug, Type 2 diabetes mellitus with diabetic n europathy, without long-term current use of insulin E11.40 ; Hammer toe of left foot M20.42 ; Hypertension, benign I10 and Frequent headaches R51 [place] [address] [address] Jul, Lumbago with sciatica, unspecified side M54.40 [place] [address] [place] [address] Jul, [place] [address] [place] [address] Jul, Essential hypertension I10 and Controlle d type 2 diabetes mellitus without complication, without long-term current use of insulin E11.9 [place] [address] [address] Jul, Essential hypertension I10 ; Controlled type 2 diabetes mellitus without complication, without long-term current use of insulin E11.9 and BMI 40.0-44.9, adult Z68.41 [place] [address] [address] Jul, Dysfunction of left eustachian tube H69. 82 [place] [address] [address] Jul, Lumbago with sciatica, unspecified side M54.40 [facility] [address] [place] [id number] [place] [id number] Jun, Dental examination Z01.20 [place] [address] [address] Jun, Lumbago with sciatica, unspecified side M54.40 and Encounter for immunization Z23 [place] [address] [address] Jun, Dysfunction of left eustachian tube H69. 82 [facility] [address] [place] [id number] Jun, Dental examination Z01.20 [facility] [address] [place] [id number] [place] [address] Jun, Other chronic pain G89.29 [facility] [address] [facility] [place] [id number] Jun, Dental examination Z01.20 [facility] [address] [address] Jun, [facility] [address] [address] Jun, Bronchitis J40 ; Dysfunction of left eus tachian tube H69.82 and BMI 45.0-49.9, adult Z68.42 [place] [address] [address] Jun, Lumbago with sciatica, unspecified side M54.40 [place] [address] [address] May, Type 2 diabetes mellitus with diabetic n europathy, without long-term current use of insulin E11.40 and Hypertension, benign I10 [place] [address] [address] May, Lumbago with sciatica, unspecified side M54.40 [facility] [address] [facility] [id number] [address] [place] [address] Apr, [facility] [address] [address] Apr, Controlled type 2 diabetes mellitus with out complication, without long-term current use of insulin E11.9 ; Insect bite (nonvenomous), right ankle, initial encounter S90.561A ; Local infection of the skin and subcutaneous tissue, unspecified L08.9 ; Acute swimmer''s ear of left side H60.332 and BMI 45.0-49.9, adult Z68.42 [place] [address] [address] Apr, Lumbago with sciatica, unspecified side M54.40 [place] [address] [address] Mar, [place] [address] [address] Mar, Lumbago with sciatica, unspecified side M54.40 [place] [address] [address] Feb, Lumbago with sciatica, unspecified side M54.40 [place] [address] [address] Feb, BMI 45.0-49.9, adult Z68.42 and Obstruct jaida sleep apnea syndrome G47.33 [place] [address] [address] January, Lumbar neuritis M54.[address] [address] January, Lumbago with sciatica, unspecified side M54.40 [place] [address] [address] Dec, Controlled type 2 diabetes mellitus with out complication, without long-term current use of insulin E11.9 ; Erectile dysfunction due to diseases classified elsewhere N52.1 and Mood disorder F39 [place] [address] [address] Dec, Lumbago with sciatica, unspecified side M54.40 [place] [address] [address] Dec, Obstructive sleep apnea syndrome G47.[address] [address] Nov, Lumbago with sciatica, unspecified side M54.40 ; Hypertension, benign I10 and Mood disorder F39 [place] [address] [address] Nov, Other chronic pain G89.29 [place] [address] [address] Nov, Lumbago with sciatica, unspecified side M54.40 [facility] [address] [id number] Nov, Dental examination Z01.20 [facility] [address] [address] Oct, [facility] [address] [place] [address] Oct, Lumbago with sciatica, unspecified side M54.40 [facility] [address] [address] Oct, Lumbago with sciatica, unspecified side M54.40 [facility] [address] [address] Oct, [facility] [address] [address] Oct, [facility] [address] [id number] Oct, Dental examination Z01.20 [facility] [address] [address] Oct, [facility] [address] [address] Oct, Pain in right knee M25.561 [facility] [address] [address] Sep, [facility] [address] [address] Sep, Other chronic pain G89.29 [facility] [address] [address] Sep, Lumbago with sciatica, unspecified side M54.40 [facility] [address] [address] Sep, [facility] [address] [place] [id number] [place] [address] Sep, Viral URI J06.9 and BMI 45.0 -49.9, adult Z68.42 [facility] [address] [place] [id number] [place] [address] Aug, Foreign body hand S60.559A a nd BMI 45.0-49.9, adult Z68.42 [place] [address] [address] Aug, [place] [address] [address] Aug, Lumbago with sciatica, unspecified side M54.40 [place] [address] [address] Aug, Vertigo R42 ; Dysfunction of both eustac hian tubes H69.83 ; Low back pain M54.5 and Other chronic pain G89.29 [facility] [address] [place] [id number] [place] [address] Aug, Dizziness R42 and Acute bila teral otitis media H66.93 [place] [address] [address] Aug, Lumbago with sciatica, unspecified side M54.40 [facility] [address] [facility] [place] [id number] Jul, Dental examination Z01.20 [place] [address] [address] Jul, [place] [address] [address] Jul, [place] [address] [address] Jul, Dysfunction of both eustachian tubes H69 .83 [place] [address] [address] Jul, Controlled type 2 diabetes mellitus with out complication, without long-term current use of insulin E11.9 [facility] [address] [address] Jul, Controlled type 2 diabetes mellitus with out complication, without long-term current use of insulin E11.9 [facility] [address] [facility] [id number] [address] [place] [address] Jul, Dizziness R42 and BMI 40.0-4 4.9, adult Z68.41 [facility] [address] [address] Jul, Controlled type 2 diabetes mellitus with out complication, without long-term current use of insulin E11.9 [place] [address] [address] Jul, Lumbago with sciatica, unspecified side M54.40 [facility] [address] [id number] Jul, Dental examination Z01.20 [facility] [address] [address] Jun, [facility] [address] [id number] Jun, Dental examination Z01.20 [place] [address] [address] Jun, Controlled type 2 diabetes mellitus with out complication, without long-term current use of insulin E11.9 [facility] [address] [address] Jun, Lumbago with sciatica, unspecified side M54.40 [facility] [address] [id number] May, Dental examination Z01.20 [facility] [address] [address] May, Controlled type 2 diabetes mellitus with out complication, without long-term current use of insulin E11.9 [facility] [address] [id number] May, Dental examination Z01.20 [facility] [address] [address] 18 May, 2017 Bronchitis J40 ; Dry mouth R68.2 ; Non m orbid obesity E66.9 and Controlled type 2 diabetes mellitus without complication, without long-term current use of insulin E11.9 [facility] [address] [address] 16 May, 2017 Encounter for immunization Z 23 [place] [address] [address] 07 May, 2017 Lumbago with sciatica, unspecified side M54.40 [place] [address] [address] 05 May, 2017 [facility] [address] [id number] Apr, Dental examination Z01.20 [place] [address] [address] Apr, Lumbago with sciatica, unspecified side M54.40 [facility] [address] [address] Mar, Lumbago with sciatica, left side M54.42 [place] [address] [address] Mar, [place] [address] [address] Mar, Lumbar neuritis M54.16 [facility] [address] [address] Mar, [facility] [address] [id number] Mar, Dental examination Z01.20 [place] [address] [address] Mar, MELE (obstructive sleep apnea) G47.33 ; N europathy involving both lower extremities G57.93 and Frequent headaches R51 [place] [address] [address] Mar, Lumbago with sciatica, unspecified side M54.40 [place] [address] [address] Feb, Lumbago with sciatica, unspecified side M54.40 and Controlled type 2 diabetes mellitus without complication, without long-term current use of insulin E11.9 [place] [address] [address] 16 Jan, 2017 Hypertension, benign I10 and Bilateral l ow back pain with sciatica, sciatica laterality unspecified M54.40 [place] [address] [address] January, Hypertension, benign I10 ; Lumbago with sciatica, unspecified side M54.40 ; Other chronic pain G89.29 and Controlled type 2 diabetes mellitus without complication, without long-term current use of insulin E11.9 [place] [address] [address] January, Lumbar neuritis M54.16 [place] [address] [address] January, [place] [address] [address] Dec, Lumbago with sciatica, right side M54.41 and Lumbar neuritis M54.16 [place] [address] [address] Dec, Lumbar neuritis M54.16 [place] [address] [address] Dec, Lumbar neuritis M54.16 [place] [address] [address] Nov, Lumbar neuritis M54.16 ; Lumbago with sc iatica, right side M54.41 ; Controlled type 2 diabetes mellitus without complication, without long-term current use of insulin E11.9 and Rash and nonspecific skin eruption R21 [place] [address] [address] 09 Nov, 2016 Lumbar neuritis M54.16 and Poison miroslava L2 3.[address] [address] Oct, Lumbar neuritis M54.16 ; Coughing R05 an d Mood disorder F39 [address] [address] Sep, Lumbago with sciatica, right side M54.[address] [address] Sep, Adjustment disorder with disturbance of emotion F43.29 and Pain management R52 [address] [address] Sep, [place] [address] [address] Sep, [address] [address] Sep, Controlled type 2 diabetes mellitus with out complication, without long-term current use of insulin E11.9 and Lumbago with sciatica, unspecified side M54.[address] [address] Aug, Controlled type 2 diabetes mellitus with out complication, without long-term current use of insulin E11.9 ; Pain in right knee M25.561 ; Pain in left knee M25.562 ; Other chronic pain G89.29 ; Lumbago with sciatica, right side M54.41 ; Neck pain M54.2 and Encounter for immunization Z23 [place] [address] [address] Jul, [address] [address] Jul, Controlled type 2 diabetes mellitus with out complication, without long-term current use of insulin E11.9 [place] [address] [address] Jul, [place] [address] [address] Jul, [place] [address] [address] Jul, Lumbago with sciatica, left side M54.42 ; Lumbago with sciatica, right side M54.41 and Other chronic pain G89.29 [place] [address] [address] Jul, [place] [address] [address] Jul, [place] [address] [address] Jun, [place] [address] [address] Jun, Lumbago with sciatica, right side M54.41 and Other chronic pain G89.29 [place] [address] [address] Jun, Cervicalgia M54.2 ; Lumbago with sciatic a, unspecified side M54.40 and Other chronic pain G89.29 [place] [address] [address] 15 May, 2016 Pain in right knee M25.561 ; Pain in lef t knee M25.562 and Other chronic pain G89.29 [place] [address] [address] 14 May, 2016 [place] [address] [address] 05 Apr, 2016 Other chronic pain G89.29 and Pain in ri ght knee M25.561 [place] [address] [address] Apr, Pain in right knee M25.561 [place] [address] [address] Mar, [place] [address] [address] Mar, Mood disorder F39 and Controlled type 2 diabetes mellitus without complication, without long-term current use of insulin E11.9 [place] [address] [address] Mar, Pain in right knee M25.561 ; Pain in lef t knee M25.562 ; Other chronic pain G89.29 ; Obstructive sleep apnea syndrome G47.33 ; Mood disorder F39 and Controlled type 2 diabetes mellitus without complication, without long-term current use of insulin E11.9 [place] [address] [address] Mar, [facility] [address] [id number] Feb, Dental examination Z01.20 [place] [address] [address] Feb, [place] [address] [address] Feb, Osteoarthritis of right knee, unspecifie d osteoarthritis type M17.9 [place] [address] [address] January, [facility] [address] [id number] January, Dental examination Z01.20 [place] [address] [address] January, [facility] [address] [id number] January, Dental examination Z01.20 and Caries K02 .9 [place] [address] [address] Dec, Encounter for other preprocedural examin ation Z01.818 [facility] [address] [address] Dec, [facility] [address] [address] Dec, Knee pain M25.569 [facility] [address] [address] Dec, Pain in right knee M25.561 [facility] [address] [address] Dec, [facility] [address] [address] Dec, [facility] [address] [address] Dec, Encounter for immunization Z23 [facility] [address] [address] Dec, [facility] [address] [address] Dec, [facility] [address] [address] Nov, [facility] [address] [address] Nov, Hypertension, benign I10 ; Cervicalgia M 54.2 ; Pain in right knee M25.561 and Pain in left knee M25.562 [facility] [address] [address] Oct, [facility] [address] [address] Oct, [facility] [address] [address] 11 Oct, 2015 Osteoarthritis of both knees M17.0 [facility] [address] [address] Oct, [place] [address] [address] Oct, Low back pain M54.5 [place] [address] [address] Oct, Low back pain M54.5 ; Sciatica, unspecif ied side M54.30 ; Pain in right knee M25.561 ; Pain in left knee M25.562 ; Pain in right shoulder M25.511 and Pain in left shoulder M25.[address] [address] Oct, [address] [address] Sep, Pain in right hip M25.[address] [address] Sep, Acute upper respiratory infection, unspe cified J06.[address] [address] Aug, Acute upper respiratory infection, unspe cified J06.9 and Other viral agents as the cause of diseases classified elsewhere B97.[address] [address] Jul, Arthritis M19.[address] [address] Jun, Arthritis M19.90 ; Pain in right hip M25 .551 ; Pain in left hip M25.552 ; Bilateral low back pain with sciatica, sciatica laterality unspecified M54.40 ; Neck pain M54.2 ; Upper back pain M54.9 and Knee pain, unspecified laterality M25.[address] [address] May, Osteoarthritis of both knees 715.[address] [address] May, Rash 782.1 [facility] [address] [address] Apr, Lumbar strain 847.2 [facility] [address] [address] Apr, Rash 782.1 [facility] [address] [address] Mar, Rash 782.1 [facility] [address] [address] Feb, Rash 782.1 ; Hemorrhoids 455.6 and Const ipation 564.00 [facility] [address] [address] Feb, Osteoarthritis of both knees 715.96 [facility] [address] [address] January, [facility] [address] [address] Dec, [facility] [address] [address] Dec, [facility] [address] [address] Dec, [facility] [address] [address] Nov, [facility] [address] [address] Nov, [facility] [address] [address] Nov, [facility] [address] [address] Nov, [facility] [address] [address] Nov, [facility] [address] [address] Nov, [facility] [address] [id number] [place] [address] Oct, [facility] [address] [id number] [place] [address] Oct, [facility] [address] [id number] [place] [address] Oct, [facility] [address] [id number] [place] [address] Oct, [facility] [address] [id number] [place] [address] Oct, [facility] [address] [id number] [place] [address] Oct, [facility] [address] [id number] [place] [address] Oct, [facility] [address] [id number] [place] [address] Oct, [facility] [address] [id number] [place] [address] Oct, [facility] [address] [id number] [place] [address] Oct, [facility] [address] [id number] [place] [address] Oct, [facility] [address] [id number] [place] [address] Sep, [facility] [address] [id number] [place] [address] Sep, [facility] [address] [id number] [place] [address] Sep, [facility] [address] [id number] [place] [address] Sep, [facility] [address] [id number] [place] [address] Sep, [facility] [address] [id number] [place] [address] Sep, [facility] [address] [id number] [place] [address] Aug, [facility] [address] [id number] [place] [address] Aug, [facility] [address] [id number] [place] [address] Aug, [facility] [address] [id number] [place] [address] Aug, [facility] [address] [id number] [place] [address] Aug, [facility] [address] [id number] [place] [address] Aug, [facility] [address] [id number] [place] [address] Aug, [facility] [address] [id number] [place] [address] Aug, [facility] [address] [id number] [place] [address] Aug, [facility] [address] [id number] [place] [address] Aug, [facility] [address] [id number] [place] [address] Jul, [facility] [address] [id number] [place] [address] Jul, [facility] [address] [id number] [place] [address] Jul, [facility] [id number] [place] [address] Jul, [facility] [address] [id number] [place] [address] Jun, [facility] [address] [id number] [place] [address] Jun, [facility] [address] [facility] [id number] [place] [address] Jun, [facility] [address] [facility] [id number] [place] [address] Jun, [facility] [address] [id number] [place] [address] Jun, [facility] [address] [id number] [place] [address] Jun, [facility] [address] [facility] [id number] [place] [address] Jun, [facility] [address] [id number] [place] [address] Jun, [facility] [address] [id number] [place] [address] 24 May, 2014 [facility] [address] [id number] [place] [address] 24 May, 2013 [facility] [address] [id number] [place] [address] 19 May, 2013 [facility] [address] [id number] [place] [address] 19 May, 2014 [facility] [address] [id number] [place] [address] 15 May, 2013 [facility] [address] [id number] [place] [address] 15 May, 2013 [facility] [address] [id number] [place] [address] 15 May, 2013 [facility] [address] [id number] [place] [address] 15 May, 2014 [facility] [address] [id number] [place] [address] Apr, [facility] [address] [id number] [place] [address] Apr, [facility] [address] [id number] [place] [address] Apr, [facility] [address] [facility] [id number] [place] [address] Apr, [facility] [address] [facility] [id number] [place] [address] Apr, [facility] [address] [id number] [place] [address] Apr, [facility] [address] [id number] [place] [address] Apr, [facility] [address] [facility] [id number] [place] [address] Apr, [facility] [address] [id number] [place] [address] Apr, [facility] [address] [id number] [place] [address] Apr, [facility] [address] [id number] [place] [address] Apr, [facility] [address] [id number] [place] [address] Apr, [facility] [address] [id number] [place] [address] Mar, [facility] [address] [id number] [place] [address] Mar, [facility] [address] [id number] [place] [address] Mar, [facility] [address] [id number] [place] [address] Mar, [facility] [address] [id number] [place] [address] Mar, [facility] [address] [id number] [place] [address] Mar, [facility] [address] [id number] [place] [address] Feb, [facility] [address] [facility] [id number] [place] [address] 18 Feb, 2014 [facility] [address] [facility] [id number] [place] [address] Feb, [facility] [address] [facility] [id number] [place] [address] Feb, [facility] [address] [id number] [place] [address] Feb, [facility] [address] [facility] [id number] [place] [address] Feb, [facility] [address] [id number] [place] [address] Feb, [facility] [address] [id number] [place] [address] Feb, [facility] [address] [id number] [place] [address] Feb, [facility] [address] [id number] [place] [address] Feb, [facility] [address] [id number] [place] [address] Feb, [facility] [address] [id number] [place] [address] Feb, [facility] [address] [id number] [place] [address] Feb, [facility] [address] [id number] [place] [address] Feb, [facility] [address] [id number] [place] [address] January, [facility] [address] [id number] [place] [address] January, [facility] [address] [id number] [place] [address] January, [facility] [address] [id number] [place] [address] January, [facility] [address] [id number] [place] [address] January, [facility] [address] [id number] [place] [address] January, [facility] [address] [id number] [place] [address] Dec, [facility] [address] [id number] [place] [address] Dec, [facility] [address] [facility] [id number] [place] [address] Dec, [facility] [address] [id number] [place] [address] Dec, [facility] [address] [id number] [place] [address] Dec, [facility] [address] [id number] [place] [address] Dec, [facility] [address] [id number] [place] [address] Dec, [facility] [address] [id number] [place] [address] Dec, [facility] [address] [id number] [place] [address] Nov, [facility] [address] [id number] [place] [address] Nov, [facility] [address] [id number] [place] [address] Nov, [facility] [address] [id number] [place] [address] Nov, [facility] [address] [id number] [place] [address] Nov, [facility] [address] [id number] [place] [address] Nov, [facility] [address] [id number] [place] [address] Nov, [facility] [address] [facility] [id number] [place] [address] Nov, [facility] [address] [facility] [id number] [place] [address] Oct, [facility] [address] [id number] [place] [address] Oct, [facility] [address] [facility] [id number] [place] [address] Oct, [facility] [address] [facility] [id number] [place] [address] Oct, [facility] [address] [id number] [place] [address] Oct, [facility] [address] [id number] [place] [address] Oct, [facility] [address] [id number] [place] [address] Oct, [facility] [address] [id number] [place] [address] Oct, [facility] [address] [id number] [place] [address] Oct, [facility] [address] [id number] [place] [address] Oct, [facility] [address] [id number] [place] [address] Sep, [facility] [address] [facility] [id number] [place] [address] Sep, [facility] [address] [id number] [place] [address] Sep, [facility] [address] [id number] [place] [address] Sep, [facility] [address] [id number] [place] [address] Sep, [facility] [address] [id number] [place] [address] Sep, [facility] [address] [id number] [place] [address] Aug, [facility] [address] [id number] [place] [address] Aug, [facility] [address] [id number] [place] [address] Aug, [facility] [address] [id number] [place] [address] Aug, [facility] [address] [id number] [place] [address] Aug, [facility] [address] [id number] [place] [address] Aug, [facility] [id number] [place] [address] Aug, [facility] [address] [id number] [place] [address] Aug, [facility] [address] [id number] [place] [address] Jul, [facility] [address] [id number] [place] [address] Jul, [facility] [id number] [place] [address] Jul, [facility] [address] [id number] [place] [address] Jul, [facility] [address] [id number] [place] [address] Jul, [facility] [address] [id number] [place] [address] Jul, [facility] [address] [id number] [place] [address] Jun, [facility] [address] [id number] [place] [address] Jun, [facility] [address] [facility] [id number] [place] [address] Jun, [facility] [address] [facility] [id number] [place] [address] May, [facility] [address] [id number] [place] [address] May, [facility] [address] [id number] [place] [address] May, [facility] [address] [id number] [place] [address] Apr, [facility] [address] [id number] [place] [address] Apr, [facility] [address] [id number] [place] [address] Apr, [facility] [address] [id number] [place] [address] Apr, [facility] [address] [id number] [place] [address] Mar, [facility] [address] [id number] [place] [address] Mar, [facility] [address] [id number] [place] [address] Mar, [facility] [address] [id number] [place] [address] Mar, [facility] [address] [id number] [place] [address] Feb, [facility] [address] [id number] [place] [address] Feb, [facility] [address] [id number] [place] [address] Feb, [facility] [address] [id number] [place] [address] Feb, [facility] [address] [id number] [place] [address] January, [facility] [address] [id number] [place] [address] January, [facility] [address] [id number] [place] [address] January, [facility] [address] [id number] [place] [address] Nov, [facility] [address] [id number] [place] [address] Nov, [facility] [address] [id number] [place] [address] Oct, [facility] [address] [id number] [place] [address] Oct, [facility] [address] [id number] [place] [address] Oct, [facility] [address] [id number] [place] [address] Oct, [facility] [address] [id number] [place] [address] Sep, [facility] [address] [id number] [place] [address] Sep, [facility] [address] [id number] [place] [address] Sep, [facility] [address] [id number] [place] [address] Aug, [facility] [address] [id number] [place] [address] Aug, [facility] [address] [id number] [place] [address] Aug, [facility] [address] [id number] [place] [address] Aug, [facility] [address] [id number] [place] [address] Aug, [facility] [address] [id number] [place] [address] Aug, [facility] [address] [id number] [place] [address] Jul, [facility] [address] [id number] [place] [address] Jul, [facility] [address] [id number] [place] [address] Jun, [facility] [address] [facility] [id number] [place] [address] Jun, [facility] [address] [id number] [place] [address] Jun, [facility] [address] [id number] [place] [address] Apr, [facility] [address] [id number] [place] [address] Apr, [facility] [address] [id number] [place] [address] Mar, [facility] [address] [id number] [place] [address] Mar, [facility] [address] [id number] [place] [address] Mar, [facility] [address] [id number] [place] [address] Mar, [facility] [address] [id number] [place] [address] Feb, [facility] [address] [id number] [place] [address] Feb, [facility] [address] [id number] [place] [address] Feb, [facility] [address] [id number] [place] [address] January, [facility] [address] [id number] [place] [address] January, [facility] [address] [id number] [place] [address] January, [facility] [address] [id number] [place] [address] January, [facility] [address] [id number] [place] [address] Dec, [facility] [address] [id number] [place] [address] Dec, [facility] [address] [id number] [place] [address] Nov, [facility] [address] [id number] [place] [address] Nov, [facility] [id number] [place] [address] Oct, [facility] [id number] [place] [address] Oct, [facility] [address] [id number] [place] [address] Sep, [facility] [address] [id number] [place] [address] Sep, [facility] [address] [id number] [place] [address] Sep, [facility] [address] [id number] [place] [address] Sep, [facility] [address] [id number] [place] [address] Aug, [facility] [id number] [place] [address] Aug, [facility] [address] [id number] [place] [address] Aug, [facility] [id number] [place] [address] Jul, [facility] [address] [id number] [place] [address] Aug, [facility] [address] [id number] [place] [address] Aug, [facility] [address] [id number] [place] [address] Aug, [facility] [address] [id number] [place] [address] Aug, [facility] [address] [id number] [place] [address] Jul, [facility] [id number] [place] [address] Jul, [facility] [address] [id number] [place] [address] Jul, [facility] [id number] [place] [address] Jun, [facility] [address] [id number] [place] [address] Jun, [facility] [address] [id number] [place] [address] Jun, [facility] [address] [id number] [place] [address] Apr, [facility] [address] [id number] [place] [address] Mar, IMMUNIZATIONS No Known Immunizations SOCIAL HISTORY [...]
--- OUTSIDE RECORDS SUMMARY | 2020-03-18 15:19 | XMS REPORT ---
Author Author George WAYNE Organization [facility] Address [address] [place] [address] Care Team Providers Care Dietetics Teacher Name Role Phone REYNA WAYNE Unavailable PROBLEMS Type Condition ICD9-CM Code WTA43-VE Code Onset Dates Condition S tatus SNOMED Code Problem Hypertension, benign I10 Active 36965624 Problem Other chronic pain G89.29 Active 8 4070366 Problem Lumbago with sciatica, unspecified side M54.40 Active 833930335 Problem Controlled type 2 diabetes m ellitus without complication, without long- term current use of insulin E11.9 Active 539241410 Problem Lumbago with sciatica, right side M54.41 Active 305849432 Problem Adjustment disorder with disturbance of emotion F4 3.29 Active 98692151 Problem MELE (obstructive sleep apnea) G47.33 Active 50757750 Problem Non morbid obesity E66.9 Active 4 78671349 Problem Hammer toe of left foot M20.42 Active 116808261 Problem Mood disorder F39 Active 678410 05 Problem Deformity of left foot M21.962 Active 331768803 Problem Lumbago with sciatica, left side M54.42 Active 826891844 Problem Erectile dysfunction due to diseases classified elsewhere N52.1 Active 709850334 Problem Obstructive sleep apnea syndrome G47.33 Active 48215071 Problem Type 2 diabetes mellitus wit h diabetic neuropathy, without long-term current use of insulin E11.40 Active 87096 006 Problem Essential hypertension I10 Active 83243570 ALLERGIES No Information ENCOUNTERS Encounter Location Date Diagnosis [facility] [address] [facility] [id number] [address] [place] [phone] Jun, URI, acute J06.9 [facility] [address] [facility] [id number] [address] [place] [phone] May, Lumbago with sciatica, unspe cified side M54.40 [facility] [address] [place] [id number] [address] [place] [phone] May, [facility] [address] [place] [id number] [place] [address] May, Type 2 diabetes mellitus wit h diabetic neuropathy, without long- term current use of insulin E11.40 and Hammer toe of left foot M20.42 [facility] [address] [place] [id number] [place] [address] May, [facility] [address] [place] [id number] [place] [phone] May, [facility] [address] [address] May, [facility] [address] [place] [id number] [place] [address] Apr, Lumbago with sciatica, unspe cified side M54.40 [place] [address] [place] [id number] [place] [phone] Apr, [facility] [address] [address] Apr, [address] [address] Apr, Hammer toe of left foot M20.42 ; Chest p ain R07.9 ; Preoperative examination Z01.818 and Morbid obesity E66.01 [place] [address] [place] [address] Apr, Morbid obesity E66.01 ; Bron chitis J40 and High risk medications (not anticoagulants) long-term use Z79.899 [place] [address] [place] [id number] [address] [place] [phone] Apr, Lumbago with sciatica, unspe cified side M54.40 [place] [address] [place] [id number] [place] [address] Apr, [facility] [address] [id number] [address] [place] [address] Mar, Lumbar neuritis M54.16 and M orbid obesity E66.01 [facility] [address] [id number] [address] [place] [phone] Mar, [facility] [address] [facility] [id number] [address] [place] [phone] Mar, [facility] [address] [facility] [id number] [address] [place] [phone] Mar, Lumbago with sciatica, unspe cified side M54.40 [place] [address] [facility] [id number] [address] [place] [address] Mar, Morbid obesity E66.01 ; Coug marco R05 ; 2+ pitting edema R60.9 and Controlled type 2 diabetes mellitus without complication, without long-term current use of insulin E11.9 [place] [id number] [facility] [id number] [address] [place] [id number] Feb, [facility] [address] [id number] [address] [place] [id number] Feb, Lumbago with sciatica, unspe cified side M54.40 [facility] [address] [facility] [id number] [address] [place] [phone] Feb, [facility] [address] [facility] [id number] [address] [place] [phone] Feb, Controlled type 2 diabetes m ellitus without complication, without long-term current use of insulin E11.9 and Morbid obesity E66.01 [facility] [address] [facility] [id number] [address] [place] [phone] January, Deformity of left foot M21.9 62 [facility] [address] [id number] [address] [place] [phone] January, [facility] [address] [facility] [id number] [address] [place] [phone] January, Lumbago with sciatica, unspe cified side M54.40 [facility] [address] [facility] [id number] [address] [place] [phone] January, [facility] [address] [facility] [id number] [address] [place] [address] January, Lumbago with sciatica, unspe cified side M54.40 [facility] [address] [facility] [id number] [address] [place] [phone] January, [facility] [address] [facility] [id number] [address] [place] [phone] January, Acute right-sided thoracic b ack pain M54.6 [facility] [address] [facility] [id number] [address] [place] [address] January, Acute right-sided thoracic b ack pain M54.6 [facility] [address] [facility] [id number] [address] [place] [phone] January, Chest pain, unspecified type R07.9 ; Morbid obesity E66.01 and Scabies B86 [facility] [address] [facility] [id number] [address] [place] [id number] Dec, Lumbago with sciatica, unspe cified side M54.40 [facility] [address] [facility] [id number] [address] [place] [phone] Dec, Toenail fungus B35.1 [facility] [address] [facility] [id number] [address] [place] [address] Dec, Toenail fungus B35.1 [facility] [address] [facility] [id number] [address] [place] [id number] Dec, Acute right-sided thoracic b ack pain M54.6 [facility] [address] [facility] [id number] [address] [place] [id number] Dec, Lumbago with sciatica, unspe cified side M54.40 [facility] [address] [facility] [id number] [address] [place] [phone] Nov, Hammer toe of left foot M20. 42 ; Deformity of left foot M21.962 and Type 2 diabetes mellitus with diabetic neuropathy, without long-term current use of insulin E11.40 [facility] [address] [facility] [id number] [address] [place] [phone] Nov, Acute right-sided thoracic b ack pain M54.6 ; Morbid obesity E66.01 and Rt flank pain R10.9 [facility] [address] [facility] [id number] [address] [place] [phone] Nov, Lumbago with sciatica, unspe cified side M54.40 [facility] [address] [facility] [id number] [address] [place] [phone] Oct, Lumbago with sciatica, unspe cified side M54.40 [facility] [address] [place] [id number] [address] [place] [address] Sep, Lumbago with sciatica, unspe cified side M54.40 [facility] [address] [facility] [id number] [address] [place] [phone] Sep, [facility] [address] [place] [id number] [address] [place] [phone] Sep, BMI 40.0-44.9, adult Z68.41 ; Lumbago with sciatica, left side M54.42 ; Lumbago with sciatica, right side M54.41 and Other chronic pain G89.29 [facility] [address] [facility] [id number] [address] [place] [phone] Aug, Lumbago with sciatica, unspe cified side M54.40 [facility] [address] [facility] [id number] [address] [place] [phone] Aug, Type 2 diabetes mellitus wit h diabetic neuropathy, without long- term current use of insulin E11.40 ; Hammer toe of left foot M20.42 ; Hypertension, benign I10 and Frequent headaches R51 [place] [address] [place] [id number] [place] [phone] Jul, Lumbago with sciatica, unspe cified side M54.40 [place] [address] [place] [id number] [place] [address] Jul, [place] [address] [address] Jul, Essential hypertension I10 a nd Controlled type 2 diabetes mellitus without complication, without long-term current use of insulin E11.9 [place] [address] [address] Jul, Essential hypertension I10 ; Controlled type 2 diabetes mellitus without complication, without long-term current use of insulin E11.9 and BMI 40.0-44.9, adult Z68.41 [place] [address] [address] Jul, Dysfunction of left eustachi an tube H69.82 [place] [address] [place] [id number] [place] [phone] Jul, Lumbago with sciatica, unspe cified side M54.40 [facility] [address] [place] [id number] [place] [id number] Jun, Dental examination Z01.20 [place] [address] [place] [phone] Jun, Lumbago with sciatica, unspe cified side M54.40 and Encounter for immunization Z23 [place] [address] [place] [id number] [place] [address] Jun, Dysfunction of left eustachi an tube H69.[address] [facility] [id number] [place] [id number] Jun, Dental examination Z01.20 [place] [address] [place] [address] Jun, Other chronic pain G89.29 [facility] [address] [place] [id number] [address] [place] [address] [id number] Jun, Dental examination Z01.20 [facility] [address] [place] [id number] [address] [place] [phone] Jun, [facility] [address] [address] Jun, Bronchitis J40 ; Dysfunction of left eustachian tube H69.82 and BMI 45.0-49.9, adult Z68.42 [place] [address] [address] Jun, Lumbago with sciatica, unspe cified side M54.40 [place] [address] [place] [address] May, Type 2 diabetes mellitus wit h diabetic neuropathy, without long- term current use of insulin E11.40 and Hypertension, benign I10 [place] [address] [place] [address] May, Lumbago with sciatica, unspe cified side M54.40 [facility] [address] [place] [id number] [address] [place] [phone] Apr, [facility] [address] [place] [id number] [place] [address] Apr, Controlled type 2 diabetes m ellitus without complication, without long-term current use of insulin E11.9 ; Insect bite (nonvenomous), right ankle, initial encounter S90.561A ; Local infection of the skin and subcutaneous tissue, unspecified L08.9 ; Acute swimmer''s ear of left side H60.332 and BMI 45.0-49.9, adult Z68.42 [place] [address] [place] [address] Apr, Lumbago with sciatica, unspe cified side M54.40 [place] [address] [place] [id number] [place] [address] Mar, [place] [address] [place] [id number] [place] [address] Mar, Lumbago with sciatica, unspe cified side M54.40 [place] [address] [place] [id number] [place] [address] Feb, Lumbago with sciatica, unspe cified side M54.40 [place] [address] [place] [id number] [place] [address] Feb, BMI 45.0-49.9, adult Z68.42 and Obstructive sleep apnea syndrome G47.33 [place] [address] [address] January, Lumbar neuritis M54.16 [place] [address] [address] January, Lumbago with sciatica, unspe cified side M54.40 [place] [address] [place] [id number] [place] [address] Dec, Controlled type 2 diabetes m ellitus without complication, without long-term current use of insulin E11.9 ; Erectile dysfunction due to diseases classified elsewhere N52.1 and Mood disorder F39 [place] [address] [address] Dec, Lumbago with sciatica, unspe cified side M54.40 [place] [address] [place] [id number] [place] [address] Dec, Obstructive sleep apnea synd luis G47.33 [place] [address] [place] [id number] [place] [id number] Nov, Lumbago with sciatica, unspe cified side M54.40 ; Hypertension, benign I10 and Mood disorder F39 [facility] [address] [id number] [address] [place] [phone] Nov, Other chronic pain G89.29 [facility] [address] [id number] [address] [place] [id number] Nov, Lumbago with sciatica, unspe cified side M54.40 [facility] [address] [id number] [address] [place] [address] [id number] Nov, Dental examination Z01.20 [facility] [address] [id number] [address] [place] [phone] Oct, [facility] [address] [id number] [address] [place] [phone] Oct, Lumbago with sciatica, unspe cified side M54.40 [facility] [address] [id number] [address] [place] [address] Oct, Lumbago with sciatica, unspe cified side M54.40 [facility] [address] [id number] [address] [place] [id number] Oct, [facility] [address] [id number] [address] [place] [address] Oct, [facility] [address] [id number] [address] [place] [address] [id number] Oct, Dental examination Z01.20 [facility] [address] [id number] [address] [place] [phone] Oct, [facility] [address] [id number] [address] [place] [address] Oct, Pain in right knee M25.561 [facility] [address] [id number] [address] [place] [id number] Sep, [facility] [address] [id number] [address] [place] [address] Sep, Other chronic pain G89.29 [facility] [address] [facility] [id number] [address] [place] [phone] Sep, Lumbago with sciatica, unspe cified side M54.40 [facility] [address] [facility] [id number] [address] [place] [phone] Sep, [facility] [address] [place] [id number] [address] [place] [phone] Sep, Viral URI J06.9 and BMI 45.0 -49.9, adult Z68.42 [facility] [address] [facility] [id number] [address] [place] [address] Aug, Foreign body hand S60.559A a nd BMI 45.0-49.9, adult Z68.42 [place] [address] [place] [id number] [address] [place] [address] Aug, [place] [address] [place] [id number] [address] [place] [address] Aug, Lumbago with sciatica, unspe cified side M54.40 [place] [address] [address] Aug, Vertigo R42 ; Dysfunction of both eustachian tubes H69.83 ; Low back pain M54.5 and Other chronic pain G89.29 [facility] [address] [place] [id number] [address] [place] [phone] Aug, Dizziness R42 and Acute bila teral otitis media H66.93 [facility] [address] [facility] [id number] [address] [place] [address] Aug, Lumbago with sciatica, unspe cified side M54.40 [facility] [address] [id number] [address] [place] [address] [id number] Jul, Dental examination Z01.20 [facility] [address] [place] [id number] [address] [place] [phone] Jul, [facility] [address] [place] [id number] [address] [place] [phone] Jul, [place] [address] [place] [id number] [place] [address] Jul, Dysfunction of both eustachi an tubes H69.83 [place] [address] [place] [id number] [place] [address] Jul, Controlled type 2 diabetes m ellitus without complication, without long-term current use of insulin E11.9 [facility] [address] [place] [id number] [address] [place] [phone] Jul, Controlled type 2 diabetes m ellitus without complication, without long-term current use of insulin E11.9 [facility] [address] [address] Jul, Dizziness R42 and BMI 40.0-4 4.9, adult Z68.41 [place] [address] [address] Jul, Controlled type 2 diabetes m ellitus without complication, without long-term current use of insulin E11.9 [place] [address] [place] [id number] [address] [place] [address] Jul, Lumbago with sciatica, unspe cified side M54.40 [facility] [address] [id number] Jul, Dental examination Z01.20 [facility] [address] [place] [id number] [address] [place] [phone] Jun, [facility] [address] [id number] Jun, Dental examination Z01.20 [facility] [address] [place] [id number] [address] [place] [address] Jun, Controlled type 2 diabetes m ellitus without complication, without long-term current use of insulin E11.9 [facility] [address] [id number] [address] [place] [address] 05 Jun, 2017 Lumbago with sciatica, unspe cified side M54.40 [facility] [address] [facility] [id number] [address] [place] [address] [id number] May, Dental examination Z01.20 [facility] [address] [facility] [id number] [place] [address] May, Controlled type 2 diabetes m ellitus without complication, without long-term current use of insulin E11.9 [facility] [address] [facility] [id number] [place] [address] [id number] May, Dental examination Z01.20 [facility] [address] [facility] [id number] [place] [phone] 18 May, 2017 Bronchitis J40 ; Dry mouth R 68.2 ; Non morbid obesity E66.9 and Controlled type 2 diabetes mellitus without complication, without long-term current use of insulin E11.9 [facility] [address] [facility] [id number] [address] [place] [id number] 16 May, 2017 Encounter for immunization Z 23 [facility] [address] [place] [id number] [address] [place] [id number] 07 May, 2017 Lumbago with sciatica, unspe cified side M54.40 [facility] [address] [facility] [id number] [address] [place] [phone] 05 May, 2017 [facility] [address] [place] [id number] [address] [place] [address] [id number] Apr, Dental examination Z01.20 [facility] [address] [facility] [id number] [address] [place] [phone] Apr, Lumbago with sciatica, unspe cified side M54.40 [facility] [address] [facility] [id number] [address] [place] [phone] Mar, Lumbago with sciatica, left side M54.42 [place] [address] [id number] [address] [place] [phone] Mar, [place] [address] [id number] [address] [place] [phone] Mar, Lumbar neuritis M54.16 [place] [address] [facility] [id number] [address] [place] [id number] Mar, [facility] [address] [id number] [address] [place] [address] [id number] Mar, Dental examination Z01.20 [place] [address] [facility] [id number] [address] [place] [address] Mar, MELE (obstructive sleep apnea ) G47.33 ; Neuropathy involving both lower extremities G57.93 and Frequent headaches R51 [place] [address] [facility] [id number] [address] [place] [phone] Mar, Lumbago with sciatica, unspe cified side M54.40 [place] [address] [id number] [address] [place] [address] Feb, Lumbago with sciatica, unspe cified side M54.40 and Controlled type 2 diabetes mellitus without complication, without long-term current use of insulin E11.9 [place] [address] [facility] [id number] [address] [place] [phone] January, Hypertension, benign I10 and Bilateral low back pain with sciatica, sciatica laterality unspecified M54.40 [place] [address] [id number] [address] [place] [phone] January, Hypertension, benign I10 ; L umbago with sciatica, unspecified side M54.40 ; Other chronic pain G89.29 and Controlled type 2 diabetes mellitus without complication, without long-term current use of insulin E11.9 [place] [address] [address] [facility] [id number] [address] [place] [phone] January, Lumbar neuritis M54.16 [place] [address] [address] [facility] [id number] [place] [id number] January, [place] [id number] [place] [id number] [place] [phone] Dec, Lumbago with sciatica, right side M54.41 and Lumbar neuritis M54.16 [place] [address] [place] [id number] [place] [phone] Dec, Lumbar neuritis M54.16 [place] [address] [place] [id number] [place] [id number] Dec, Lumbar neuritis M54.16 [place] [address] [id number] Nov, Lumbar neuritis M54.16 ; Lum bago with sciatica, right side M54.41 ; Controlled type 2 diabetes mellitus without complication, without long-term current use of insulin E11.9 and Rash and nonspecific skin eruption R21 [place] [address] [id number] Nov, Lumbar neuritis M54.16 and P oison miroslava L23.7 [place] [address] [phone] Oct, Lumbar neuritis M54.16 ; Cou ghing R05 and Mood disorder F39 [place] [address] [phone] Sep, Lumbago with sciatica, right side M54.41 [place] [address] [address] [place] [id number] [place] [phone] Sep, Adjustment disorder with dis turbance of emotion F43.29 and Pain management R52 [place] [address] [place] [id number] [place] [phone] Sep, [place] [address] [id number] Sep, [place] [address] [place] [address] 16 Sep, 2016 Controlled type 2 diabetes evens reyna without complication, without long-term current use of insulin E11.9 and Lumbago with sciatica, unspecified side M54.40 [facility] [address] [id number] [address] [place] [id number] 16 Aug, 2016 Controlled type 2 diabetes evens reyna without complication, without long-term current use of insulin E11.9 ; Pain in right knee M25.561 ; Pain in left knee M25.562 ; Other chronic pain G89.29 ; Lumbago with sciatica, right side M54.41 ; Neck pain M54.2 and Encounter for immunization Z23 [facility] [address] [id number] [address] [place] [phone] Jul, [facility] [address] [facility] [id number] [address] [place] [phone] Jul, Controlled type 2 diabetes evens reyna without complication, without long-term current use of insulin E11.9 [facility] [address] [id number] [address] [place] [id number] 17 Jul, 2016 [facility] [address] [id number] [address] [place] [phone] Jul, [facility] [address] [id number] [address] [place] [id number] Jul, Lumbago with sciatica, left side M54.42 ; Lumbago with sciatica, right side M54.41 and Other chronic pain G89.29 [facility] [address] [id number] [address] [place] [phone] Jul, [facility] [address] [id number] [address] [place] [id number] Jul, [facility] [address] [id number] [address] [place] [phone] Jun, [facility] [address] [id number] [address] [place] [phone] Jun, Lumbago with sciatica, right side M54.41 and Other chronic pain G89.29 [facility] [address] [id number] [address] [place] [id number] Jun, Cervicalgia M54.2 ; Lumbago with sciatica, unspecified side M54.40 and Other chronic pain G89.29 [facility] [address] [id number] [address] [place] [id number] 15 May, 2016 Pain in right knee M25.561 ; Pain in left knee M25.562 and Other chronic pain G89.29 [facility] [address] [id number] [address] [place] [id number] 14 May, 2016 [facility] [address] [facility] [id number] [address] [place] [phone] Apr, Other chronic pain G89.29 an d Pain in right knee M25.561 [facility] [address] [id number] [address] [place] [phone] Apr, Pain in right knee M25.561 [facility] [address] [id number] [address] [place] [phone] Mar, [facility] [address] [id number] [address] [place] [phone] Mar, Mood disorder F39 and Contro lled type 2 diabetes mellitus without complication, without long-term current use of insulin E11.9 [facility] [address] [id number] [address] [place] [id number] Mar, Pain in right knee M25.561 ; Pain in left knee M25.562 ; Other chronic pain G89.29 ; Obstructive sleep apnea syndrome G47.33 ; Mood disorder F39 and Controlled type 2 diabetes mellitus without complication, without long- term current use of insulin E11.9 [facility] [address] [id number] [address] [place] [id number] Mar, [facility] [address] [id number] [address] [place] [id number] Feb, Dental examination Z01.20 [facility] [address] [id number] [address] [place] [id number] Feb, [facility] [address] [id number] [address] [place] [phone] Feb, Osteoarthritis of right knee , unspecified osteoarthritis type M17.9 [facility] [address] [id number] [address] [place] [id number] January, [facility] [address] [id number] [address] [place] [id number] January, Dental examination Z01.20 [facility] [address] [id number] [address] [place] [phone] January, [facility] [address] [id number] [address] [place] [id number] January, Dental examination Z01.20 an d Caries K02.9 [facility] [address] [id number] [address] [place] [phone] Dec, Encounter for other preproce dural examination Z01.818 [facility] [address] [id number] [address] [place] [phone] Dec, [facility] [address] [id number] [address] [place] [id number] Dec, Knee pain M25.569 [facility] [address] [id number] [address] [place] [id number] 15 Dec, 2015 Pain in right knee M25.561 [facility] [address] [id number] [address] [place] [phone] Dec, [facility] [address] [id number] [address] [place] [phone] Dec, [facility] [address] [id number] [address] [place] [phone] Dec, Encounter for immunization Z 23 [facility] [address] [id number] [address] [place] [phone] Dec, [facility] [address] [id number] [address] [place] [phone] Dec, [facility] [address] [id number] [address] [place] [phone] Nov, [facility] [address] [facility] [id number] [address] [place] [id number] Nov, Hypertension, benign I10 ; C ervicalgia M54.2 ; Pain in right knee M25.561 and Pain in left knee M25.562 [facility] [address] [id number] [address] [place] [phone] Oct, [facility] [address] [facility] [id number] [address] [place] [phone] Oct, [facility] [address] [facility] [id number] [address] [place] [id number] Oct, Osteoarthritis of both knees M17.0 [facility] [address] [id number] [address] [place] [id number] Oct, [facility] [address] [facility] [id number] [address] [place] [phone] Oct, Low back pain M54.5 [facility] [address] [facility] [id number] [address] [place] [phone] Oct, Low back pain M54.5 ; Sciati ca, unspecified side M54.30 ; Pain in right knee M25.561 ; Pain in left knee M25.562 ; Pain in right shoulder M25.511 and Pain in left shoulder M25.512 [facility] [address] [id number] [address] [place] [address] Oct, [facility] [address] [facility] [id number] [address] [place] [phone] Sep, Pain in right hip M25.551 [facility] [address] [facility] [id number] [address] [place] [phone] Sep, Acute upper respiratory infe ction, unspecified J06.9 [facility] [address] [place] [id number] [address] [place] [id number] Aug, Acute upper respiratory infe ction, unspecified J06.9 and Other viral agents as the cause of diseases classified elsewhere B97.89 [facility] [address] [place] [id number] [address] [place] [phone] Jul, Arthritis M19.90 [facility] [address] [place] [id number] [place] [address] Jun, Arthritis M19.90 ; Pain in r ight hip M25.551 ; Pain in left hip M25.552 ; Bilateral low back pain with sciatica, sciatica laterality unspecified M54.40 ; Neck pain M54.2 ; Upper back pain M54.9 and Knee pain, unspecified laterality M25.569 [facility] [address] [place] [id number] [address] [place] [id number] May, Osteoarthritis of both knees 715.96 [facility] [address] [place] [id number] [address] [place] [phone] May, Rash 782.1 [facility] [address] [place] [id number] [address] [place] [id number] Apr, Lumbar strain 847.2 [facility] [address] [facility] [id number] [address] [place] [phone] Apr, Rash 782.1 [facility] [address] [place] [id number] [address] [place] [phone] Mar, Rash 782.1 [facility] [address] [place] [id number] [address] [place] [phone] Feb, Rash 782.1 ; Hemorrhoids 455 .6 and Constipation 564.00 [facility] [address] [place] [id number] [address] [place] [phone] 04 Feb, 2015 Osteoarthritis of both knees 715.96 [facility] [address] [id number] [address] [place] [address], [place] [address] 15 Jan, 2015 [facility] [address] [id number] [address] [place] [address], [place] [address] 28 Dec, 2014 [facility] [address] [id number] [address] [place] [phone] 14 Dec, 2014 [facility] [address] [id number] [address] [place] [address], [place] [id number] Dec, [facility] [address] [id number] [address] [place] [address], [place] [address] 18 Nov, 2014 [facility] [address] [id number] [address] [place] [id number] 18 Nov, 2014 [facility] [address] [id number] [address] [place] [phone] 18 Nov, 2014 [facility] [address] [id number] [address] [place] [address], [place] [address] Nov, [facility] [address] [id number] [address] [place] [phone] Nov, [facility] [address] [id number] [address] [place] [phone] Nov, [facility] [address] [id number] [address] [place] [phone] Oct, [facility] [address] [id number] [address] [place] [address], [place] [address] Oct, [facility] [address] [id number] [address] [place] [phone] Oct, [facility] [address] [id number] [address] [place] [id number] Oct, [facility] [address] [id number] [address] [place] [phone] Oct, [facility] [address] [id number] [address] [place] [address], [place] [address] Oct, [facility] [address] [id number] [address] [place] [address], [place] [id number] Oct, [facility] [address] [id number] [address] [place] [address], [place] [address] Oct, [facility] [address] [id number] [address] [place] [address], [place] [phone] Oct, [facility] [address] [id number] [address] [place] [address], [place] [address] Oct, [facility] [address] [id number] [address] [place] [address], [place] [phone] Oct, [facility] [address] [id number] [address] [place] [address], [place] [address] Sep, [facility] [address] [id number] [address] [place] [address], [place] [address] Sep, [facility] [address] [id number] [address] [place] [address], [place] [address] Sep, [facility] [address] [id number] [address] [place] [address], [place] [address] Sep, [facility] [address] [id number] [address] [place] [address], [place] [address] Sep, [facility] [address] [id number] [address] [place] [address], [place] [address] Sep, [facility] [address] [id number] [address] [place] [address], [place] [address] Aug, [facility] [address] [id number] [address] [place] [address], [place] [address] Aug, [facility] [address] [id number] [address] [place] [phone] Aug, [facility] [address] [id number] [address] [place] [address], [place] [id number] Aug, [facility] [address] [id number] [address] [place] [address], [place] [address] Aug, [facility] [address] [id number] [address] [place] [address], [place] [address] Aug, [facility] [address] [id number] [address] [place] [address], [place] [address] Aug, [facility] [address] [id number] [address] [place] [address], [place] [address] Aug, [facility] [address] [id number] [address] [place] [address], [place] [address] Aug, [facility] [address] [id number] [address] [place] [address], [place] [address] Aug, [facility] [address] [id number] [address] [place] [address], [place] [address] Jul, [facility] [address] [id number] [address] [place] [address], [place] [address] Jul, [facility] [address] [id number] [address] [place] [address], [place] [address] Jul, [facility] [address] [id number] [address] [place] [address], [place] [address] Jul, [facility] [address] [id number] [address] [place] [address], [place] [address] Jun, [facility] [address] [id number] [address] [place] [address], [place] [address] Jun, [facility] [address] [id number] [address] [place] [address], [place] [address] Jun, [facility] [address] [id number] [address] [place] [address], [place] [address] Jun, [facility] [address] [id number] [address] [place] [address], [place] [address] Jun, [facility] [address] [id number] [address] [place] [address], [place] [address] Jun, [facility] [address] [id number] [address] [place] [address], [place] [address] Jun, [facility] [address] [id number] [address] [place] [address], [place] [address] Jun, [facility] [address] [id number] [address] [place] [address], [place] [address] 24 May, 2014 [facility] [address] [id number] [address] [place] [address], [place] [address] 24 May, 2014 [facility] [address] [id number] [address] [place] [address], [place] [address] May, [facility] [address] [id number] [address] [place] [address], [place] [address] May, [facility] [address] [id number] [address] [place] [address], [place] [address] 15 May, 2014 [facility] [address] [id number] [address] [place] [address], [place] [address] 15 May, 2014 [facility] [address] [id number] [address] [place] [address], [place] [address] 15 May, 2014 [facility] [address] [id number] [address] [place] [address], [place] [address] May, [facility] [address] [id number] [address] [place] [address], [place] [address] Apr, [facility] [address] [id number] [address] [place] [address], [place] [address] Apr, [facility] [address] [id number] [address] [place] [address], [place] [address] Apr, [facility] [address] [id number] [address] [place] [address], [place] [address] Apr, [facility] [address] [id number] [facility] [address] Apr, [facility] [address] [id number] [address] [place] [address], [place] [address] Apr, [facility] [address] [id number] [address] [place] [address], [place] [address] Apr, [facility] [address] [id number] [address] [place] [address], [place] [address] Apr, [facility] [address] [id number] [address] [place] [address], [place] [address] Apr, [facility] [address] [id number] [address] [place] [address], [place] [address] Apr, [facility] [address] [id number] [address] [place] [address], [place] [address] Apr, [facility] [address] [id number] [address] [place] [address], [place] [address] Apr, [facility] [address] [id number] [address] [place] [address], [place] [address] Mar, [facility] [address] [id number] [address] [place] [address], [place] [address] Mar, [facility] [address] [id number] [address] [place] [address], [place] [address] Mar, [facility] [address] [id number] [address] [place] [address], [place] [address] Mar, [facility] [address] [id number] [address] [place] [address], [place] [address] Mar, [facility] [address] [id number] [address] [place] [address], [place] [address] Mar, [facility] [address] [id number] [address] [place] [address], [place] [address] Feb, [facility] [address] [id number] [address] [place] [address], [place] [address] Feb, [facility] [address] [id number] [facility] [address] Feb, [facility] [address] [id number] [address] [place] [address], [place] [address] Feb, [facility] [address] [id number] [address] [place] [address], [place] [address] Feb, [facility] [address] [id number] [address] [place] [address], [place] [address] Feb, [facility] [address] [id number] [address] [place] [address], [place] [address] Feb, [facility] [address] [id number] [address] [place] [address], [place] [address] Feb, [facility] [address] [id number] [address] [place] [address], [place] [address] Feb, [facility] [address] [id number] [address] [place] [address], [place] [address] Feb, [facility] [address] [id number] [address] [place] [address], [place] [address] Feb, [facility] [address] [id number] [address] [place] [address], [place] [address] Feb, [facility] [address] [id number] [address] [place] [address], [place] [address] Feb, [facility] [address] [id number] [address] [place] [address], [place] [address] Feb, [facility] [address] [id number] [address] [place] [address], [place] [address] January, [facility] [address] [id number] [address] [place] [address], [place] [address] January, [facility] [address] [id number] [address] [place] [address], [place] [address] January, [facility] [address] [id number] [address] [place] [address], [place] [address] January, [facility] [address] [id number] [facility] [address] January, [facility] [address] [id number] [address] [place] [address], [place] [address] January, [facility] [address] [id number] [address] [place] [address], [place] [address] Dec, [facility] [address] [id number] [address] [place] [address], [place] [address] Dec, [facility] [address] [id number] [address] [place] [address], [place] [address] Dec, [facility] [address] [id number] [address] [place] [address], [place] [address] Dec, [facility] [address] [id number] [address] [place] [address], [place] [address] Dec, [facility] [address] [id number] [address] [place] [address], [place] [address] Dec, [facility] [address] [id number] [address] [place] [address], [place] [address] Dec, [facility] [address] [id number] [address] [place] [address], [place] [address] Dec, [facility] [address] [id number] [address] [place] [address], [place] [id number] Nov, [facility] [address] [id number] [address] [place] [address], [place] [id number] Nov, [facility] [address] [id number] [address] [place] [address], [place] [id number] Nov, [facility] [address] [id number] [address] [place] [address], [place] [id number] Nov, [facility] [address] [id number] [address] [place] [address], [place] [id number] Nov, [facility] [address] [id number] [address] [place] [address], [place] [id number] Nov, [facility] [address] [id number] [address] [place] [address], [place] [id number] Nov, [facility] [address] [id number] [address] [place] [address], [place] [id number] Nov, [facility] [address] [id number] [address] [place] [address], [place] [id number] Oct, [facility] [address] [id number] [address] [place] [address], [place] [id number] Oct, [facility] [address] [id number] [address] [place] [address], [place] [id number] Oct, [facility] [address] [id number] [address] [place] [address], [place] [id number] Oct, [facility] [address] [id number] [address] [place] [address], [place] [id number] Oct, [facility] [address] [id number] [address] [place] [address], [place] [id number] Oct, [facility] [address] [id number] [address] [place] [address], [place] [id number] Oct, [facility] [address] [id number] [address] [place] [address], [place] [id number] Oct, [facility] [address] [id number] [address] [place] [address], [place] [id number] Oct, [facility] [address] [id number] [address] [place] [address], [place] [id number] Oct, [facility] [address] [id number] [address] [place] [address], [place] [id number] Sep, [facility] [address] [id number] [address] [place] [address], [place] [id number] Sep, [facility] [address] [id number] [address] [place] [address], [place] [id number] 14 Sep, 2013 [facility] [address] [id number] [address] [place] [address], [place] [id number] 14 Sep, 2013 [facility] [address] [id number] [address] [place] [address], [place] [id number] 07 Sep, 2013 [facility] [address] [id number] [address] [place] [address], [place] [id number] Sep, [facility] [address] [id number] [address] [place] [address], [place] [address] Aug, [facility] [address] [id number] [address] [place] [address], [place] [id number] Aug, [facility] [address] [id number] [address] [place] [address], [place] [id number] Aug, [facility] [address] [id number] [address] [place] [address], [place] [id number] Aug, [facility] [address] [id number] [address] [place] [address], [place] [id number] Aug, [facility] [address] [id number] [address] [place] [address], [place] [id number] Aug, [facility] [address] [id number] [address] [place] [address], [place] [id number] Aug, [facility] [address] [id number] [address] [place] [address], [place] [id number] Aug, [facility] [address] [id number] [address] [place] [address], [place] [id number] Jul, [facility] [address] [id number] [address] [place] [address], [place] [address] Jul, [facility] [address] [address] [id number] [address] [place] [address], [place] [address] Jul, [facility] [address] [id number] [address] [place] [address], [place] [address] Jul, [facility] [address] [id number] [address] [place] [address], [place] [address] Jul, [facility] [address] [id number] [address] [place] [address], [place] [address] Jul, [facility] [address] [id number] [address] [place] [address], [place] [address] Jun, [facility] [address] [id number] [address] [place] [address], [place] [address] Jun, [facility] [address] [id number] [address] [place] [address], [place] [address] Jun, [facility] [address] [id number] [address] [place] [address], [place] [address] May, [facility] [address] [id number] [address] [place] [address], [place] [address] May, [facility] [address] [id number] [address] [place] [address], [place] [address] May, [facility] [address] [id number] [address] [place] [address], [place] [address] Apr, [facility] [address] [id number] [address] [place] [address], [place] [address] Apr, [facility] [address] [id number] [address] [place] [address], [place] [address] Apr, [facility] [address] [id number] [address] [place] [address], [place] [address] Apr, [facility] [address] [id number] [address] [place] [address], [place] [address] Mar, [facility] [address] [id number] [address] [place] [address], [place] [address] Mar, [facility] [address] [id number] [address] [place] [address], [place] [address] Mar, [facility] [address] [id number] [address] [place] [address], [place] [address] Mar, [facility] [address] [id number] [address] [place] [address], [place] [address] Feb, [facility] [address] [id number] [address] [place] [address], [place] [address] Feb, [facility] [address] [id number] [address] [place] [address], [place] [address] Feb, [facility] [address] [id number] [address] [place] [address], [place] [address] Feb, [facility] [address] [id number] [address] [place] [address], [place] [address] January, [facility] [address] [id number] [address] [place] [address], [place] [address] January, [facility] [address] [id number] [address] [place] [address], [place] [address] January, [facility] [address] [id number] [address] [place] [address], [place] [address] Nov, [facility] [address] [id number] [address] [place] [address], [place] [address] Nov, [facility] [address] [id number] [address] [place] [address], [place] [address] Oct, [facility] [address] [id number] [address] [place] [address], [place] [address] Oct, [facility] [address] [id number] [address] [place] [address], [place] [address] Oct, [facility] [address] [id number] [address] [place] [address], [place] [address] Oct, [facility] [address] [id number] [address] [place] [address], [place] [address] Sep, [facility] [address] [id number] [address] [place] [address], [place] [address] Sep, [facility] [address] [id number] [address] [place] [address], [place] [address] Sep, [facility] [address] [id number] [address] [place] [address], [place] [address] Aug, [facility] [address] [id number] [address] [place] [address], [place] [address] Aug, [facility] [address] [id number] [address] [place] [address], [place] [address] Aug, [facility] [address] [id number] [address] [place] [address], [place] [address] Aug, [facility] [address] [id number] [address] [place] [address], [place] [address] Aug, [facility] [address] [id number] [address] [place] [address], [place] [address] Aug, [facility] [address] [id number] [address] [place] [address], [place] [address] Jul, [facility] [address] [id number] [address] [place] [address], [place] [address] Jul, [facility] [address] [id number] [address] [place] [address], [place] [address] Jun, [facility] [address] [id number] [address] [place] [address], [place] [address] Jun, [facility] [address] [id number] [address] [place] [address], [place] [address] Jun, [facility] [address] [id number] [address] [place] [address], [place] [address] Apr, [facility] [address] [id number] [address] [place] [address], [place] [address] Apr, [facility] [address] [id number] [address] [place] [address], [place] [address] Mar, [facility] [address] [id number] [address] [place] [address], [place] [address] Mar, [facility] [address] [id number] [address] [place] [address], [place] [address] Mar, [facility] [address] [id number] [address] [place] [address], [place] [address] Mar, [facility] [address] [id number] [address] [place] [address], [place] [address] Feb, [facility] [address] [id number] [address] [place] [address], [place] [address] Feb, [facility] [address] [id number] [address] [place] [address], [place] [address] Feb, [facility] [address] [id number] [address] [place] [address], [place] [address] January, [facility] [address] [id number] [address] [place] [address], [place] [address] January, [facility] [address] [id number] [address] [place] [address], [place] [address] January, [facility] [address] [id number] [address] [place] [address], [place] [address] January, [facility] [address] [id number] [address] [place] [address], [place] [address] Dec, [facility] [address] [id number] [address] [place] [address], [place] [address] Dec, [facility] [address] [id number] [address] [place] [address], [place] [address] Nov, [facility] [address] [id number] [address] [place] [address], [place] [address] Nov, [facility] [address] [id number] [address] [place] [address], [place] [address] 16 Oct, 2011 [facility] [address] [id number] [address] [place] [address], [place] [address] 15 Oct, 2011 [facility] [address] [id number] [address] [place] [address], [place] [id number] 09 Sep, 2011 [facility] [address] [id number] [address] [place] [address], [place] [address] Sep, [facility] [address] [id number] [address] [place] [address], [place] [address] Sep, [facility] [address] [id number] [address] [place] [address], [place] [address] Sep, [facility] [address] [id number] [address] [place] [address], [place] [address] 16 Aug, 2011 [facility] [address] [id number] [address] [place] [address], [place] [address] 16 Aug, 2011 [facility] [address] [id number] [address] [place] [address], [place] [address] Aug, [facility] [address] [id number] [address] [place] [address], [place] [address] Jul, [facility] [address] [id number] [address] [place] [address], [place] [address] Aug, [facility] [address] [id number] [address] [place] [address], [place] [address] Aug, [facility] [address] [id number] [address] [place] [address], [place] [address] Aug, [facility] [address] [id number] [address] [place] [address], [place] [address] Aug, [facility] [address] [id number] [address] [place] [address], [place] [address] Jul, [facility] [address] [id number] [address] [place] [address], [place] [address] 17 Jul, 2010 [facility] [address] [id number] [address] [place] [address], [place] [id number] 04 Jul, 2010 [facility] [address] [id number] [address] [place] [address], [place] [address] 30 Jun, 2010 [facility] [address] [facility] [id number] [address] [place] [id number] Jun, [facility] [address] [facility] [id number] [address] [place] [id number] Jun, [facility] [address] [facility] [id number] [address] [place] [id number] Apr, [facility] [address] [facility] [id number] [address] [place] [id number] Mar, IMMUNIZATIONS No Known Immunizations SOCIAL HISTORY [...]
--- OUTSIDE RECORDS SUMMARY | 2020-03-18 15:19 | XMS REPORT ---
Author Author George WAYNE Organization [facility] Address [address] [place] [address] Care Team Providers Care Data Warehouse Developer Name Role Phone REYNA WAYNE Unavailable PROBLEMS Type Condition ICD9-CM Code [id number] Code Onset Dates Condition S tatus SNOMED Code Problem Hypertension, benign I10 Active 23594090 Problem Other chronic pain G89.29 Active 8 2684053 Problem Lumbago with sciatica, unspecified side M54.40 Active 258396077 Problem Controlled type 2 diabetes m ellitus without complication, without long- term current use of insulin E11.9 Active 716966784 Problem Lumbago with sciatica, right side M54.41 Active 637604889 Problem Adjustment disorder with disturbance of emotion F4 3.29 Active 43333963 Problem MELE (obstructive sleep apnea) G47.33 Active 65073698 Problem Non morbid obesity E66.9 Active 4 60990134 Problem Hammer toe of left foot M20.42 Active 381879594 Problem Mood disorder F39 Active 552430 05 Problem Deformity of left foot M21.962 Active 852846553 Problem Lumbago with sciatica, left side M54.42 Active 636274261 Problem Erectile dysfunction due to diseases classified elsewhere N52.1 Active 717232133 Problem Obstructive sleep apnea syndrome G47.33 Active 25733110 Problem Type 2 diabetes mellitus wit h diabetic neuropathy, without long-term current use of insulin E11.40 Active 39435 006 Problem Essential hypertension I10 Active 27279811 ALLERGIES No Information ENCOUNTERS Encounter Location Date Diagnosis [facility] [address] [id number] [place] [address] Sep, [facility] [address] [id number] [place] [address] Aug, [facility] [address] [id number] [place] [address] Jul, Lumbago with sciatica, unspecified side M54.40 [facility] [address] [address] Jun, Lumbago with sciatica, unspecified side M54.40 [facility] [address] [address] Jun, URI, acute J06.9 [facility] [address] [address] May, Lumbago with sciatica, unspecified side M54.40 [place] [address] [address] May, [place] [address] [address] May, Type 2 diabetes mellitus with diabetic n europathy, without long-term current use of insulin E11.40 and Hammer toe of left foot M20.42 [place] [address] [address] May, [place] [address] [address] May, [place] [address] [address] May, [place] [address] [address] Apr, Lumbago with sciatica, unspecified side M54.40 [place] [address] [address] Apr, [facility] [address] [address] Apr, [address] [place] [address] Apr, Hammer toe of left foot M20. 42 ; Chest pain R07.9 ; Preoperative examination Z01.818 and Morbid obesity E66.01 [place] [address] [address] Apr, Morbid obesity E66.01 ; Bronchitis J40 a nd High risk medications (not anticoagulants) long-term use Z79.899 [place] [address] [address] Apr, Lumbago with sciatica, unspecified side M54.40 [place] [address] [address] Apr, [place] [address] [address] Mar, Lumbar neuritis M54.16 and Morbid obesit y E66.01 [place] [address] [address] Mar, [place] [address] [address] Mar, [place] [address] [address] Mar, Lumbago with sciatica, unspecified side M54.40 [place] [address] [address] Mar, Morbid obesity E66.01 ; Coughing R05 ; 2 + pitting edema R60.9 and Controlled type 2 diabetes mellitus without complication, without long-term current use of insulin E11.9 [place] [address] [address] Feb, [place] [address] [address] Feb, Lumbago with sciatica, unspecified side M54.40 [place] [address] [address] Feb, [place] [address] [address] Feb, Controlled type 2 diabetes mellitus with out complication, without long-term current use of insulin E11.9 and Morbid obesity E66.01 [place] [address] [address] January, Deformity of left foot M21.962 [facility] [address] [address] January, [facility] [address] [address] January, Lumbago with sciatica, unspecified side M54.40 [place] [address] [address] January, [place] [address] [address] January, Lumbago with sciatica, unspecified side M54.40 [place] [address] [address] January, [place] [address] [address] January, Acute right-sided thoracic back pain M54 .6 [place] [address] [address] January, Acute right-sided thoracic back pain M54 .6 [place] [address] [address] January, Chest pain, unspecified type R07.9 ; Mor bid obesity E66.01 and Scabies B86 [place] [address] [address] Dec, Lumbago with sciatica, unspecified side M54.40 [place] [address] [address] Dec, Toenail fungus B35.1 [place] [address] [address] Dec, Toenail fungus B35.1 [place] [address] [address] Dec, Acute right-sided thoracic back pain M54 .6 [place] [address] [address] Dec, Lumbago with sciatica, unspecified side M54.40 [facility] [address] [address] Nov, Hammer toe of left foot M20.42 ; Deformi ty of left foot M21.962 and Type 2 diabetes mellitus with diabetic neuropathy, without long-term current use of insulin E11.40 [facility] [address] [facility] [id number] [place] [address] Nov, Acute right-sided thoracic b ack pain M54.6 ; Morbid obesity E66.01 and Rt flank pain R10.9 [place] [address] [address] Nov, Lumbago with sciatica, unspecified side M54.40 [place] [address] [address] Oct, Lumbago with sciatica, unspecified side M54.40 [place] [address] [address] Sep, Lumbago with sciatica, unspecified side M54.40 [place] [address] [address] Sep, [place] [address] [address] Sep, BMI 40.0-44.9, adult Z68.41 ; Lumbago wi th sciatica, left side M54.42 ; Lumbago with sciatica, right side M54.41 and Other chronic pain G89.29 [place] [address] [address] Aug, Lumbago with sciatica, unspecified side M54.40 [place] [address] [address] Aug, Type 2 diabetes mellitus with diabetic n europathy, without long-term current use of insulin E11.40 ; Hammer toe of left foot M20.42 ; Hypertension, benign I10 and Frequent headaches R51 [place] [address] [address] Jul, Lumbago with sciatica, unspecified side M54.40 [place] [address] [place] [address] Jul, [place] [address] [place] [address] Jul, Essential hypertension I10 and Controlle d type 2 diabetes mellitus without complication, without long-term current use of insulin E11.9 [place] [address] [address] Jul, Essential hypertension I10 ; Controlled type 2 diabetes mellitus without complication, without long-term current use of insulin E11.9 and BMI 40.0-44.9, adult Z68.41 [place] [address] [address] Jul, Dysfunction of left eustachian tube H69. 82 [place] [address] [address] Jul, Lumbago with sciatica, unspecified side M54.40 [facility] [address] [place] [id number] [place] [id number] Jun, Dental examination Z01.20 [place] [address] [address] Jun, Lumbago with sciatica, unspecified side M54.40 and Encounter for immunization Z23 [place] [address] [address] Jun, Dysfunction of left eustachian tube H69. [address] [facility] [address] [id number] [id number] Jun, Dental examination Z01.20 [facility] [address] [place] [id number] [place] [address] Jun, Other chronic pain G89.29 [facility] [address] [facility] [place] [id number] Jun, Dental examination Z01.20 [facility] [address] [address] Jun, [facility] [address] [address] Jun, Bronchitis J40 ; Dysfunction of left eus tachian tube H69.82 and BMI 45.0-49.9, adult Z68.42 [place] [address] [address] Jun, Lumbago with sciatica, unspecified side M54.40 [place] [address] [address] May, Type 2 diabetes mellitus with diabetic n europathy, without long-term current use of insulin E11.40 and Hypertension, benign I10 [place] [address] [address] May, Lumbago with sciatica, unspecified side M54.40 [facility] [address] [facility] [id number] [address] [place] [address] Apr, [facility] [address] [address] Apr, Controlled type 2 diabetes mellitus with out complication, without long-term current use of insulin E11.9 ; Insect bite (nonvenomous), right ankle, initial encounter S90.561A ; Local infection of the skin and subcutaneous tissue, unspecified L08.9 ; Acute swimmer''s ear of left side H60.332 and BMI 45.0-49.9, adult Z68.42 [place] [address] [address] Apr, Lumbago with sciatica, unspecified side M54.40 [place] [address] [address] Mar, [place] [address] [address] Mar, Lumbago with sciatica, unspecified side M54.40 [place] [address] [address] Feb, Lumbago with sciatica, unspecified side M54.40 [place] [address] [address] Feb, BMI 45.0-49.9, adult Z68.42 and Obstruct jaida sleep apnea syndrome G47.33 [place] [address] [address] January, Lumbar neuritis M54.[address] [address] January, Lumbago with sciatica, unspecified side M54.40 [place] [address] [address] Dec, Controlled type 2 diabetes mellitus with out complication, without long-term current use of insulin E11.9 ; Erectile dysfunction due to diseases classified elsewhere N52.1 and Mood disorder F39 [place] [address] [address] Dec, Lumbago with sciatica, unspecified side M54.40 [place] [address] [address] Dec, Obstructive sleep apnea syndrome G47.[address] [address] Nov, Lumbago with sciatica, unspecified side M54.40 ; Hypertension, benign I10 and Mood disorder F39 [place] [address] [address] Nov, Other chronic pain G89.29 [place] [address] [address] Nov, Lumbago with sciatica, unspecified side M54.40 [facility] [address] [id number] Nov, Dental examination Z01.20 [facility] [address] [address] Oct, [facility] [address] [place] [address] Oct, Lumbago with sciatica, unspecified side M54.40 [facility] [address] [address] Oct, Lumbago with sciatica, unspecified side M54.40 [facility] [address] [address] Oct, [facility] [address] [address] Oct, [facility] [address] [id number] Oct, Dental examination Z01.20 [facility] [address] [address] Oct, [facility] [address] [address] Oct, Pain in right knee M25.561 [facility] [address] [address] Sep, [facility] [address] [address] Sep, Other chronic pain G89.29 [facility] [address] [address] Sep, Lumbago with sciatica, unspecified side M54.40 [facility] [address] [address] Sep, [facility] [address] [place] [id number] [place] [address] Sep, Viral URI J06.9 and BMI 45.0 -49.9, adult Z68.42 [facility] [address] [place] [id number] [place] [address] Aug, Foreign body hand S60.559A a nd BMI 45.0-49.9, adult Z68.42 [place] [address] [address] Aug, [place] [address] [address] Aug, Lumbago with sciatica, unspecified side M54.40 [place] [address] [address] Aug, Vertigo R42 ; Dysfunction of both eustac hian tubes H69.83 ; Low back pain M54.5 and Other chronic pain G89.29 [facility] [address] [place] [id number] [place] [address] Aug, Dizziness R42 and Acute bila teral otitis media H66.93 [place] [address] [address] Aug, Lumbago with sciatica, unspecified side M54.40 [facility] [address] [facility] [place] [id number] Jul, Dental examination Z01.20 [place] [address] [address] Jul, [place] [address] [address] Jul, [place] [address] [address] Jul, Dysfunction of both eustachian tubes H69 .83 [place] [address] [address] Jul, Controlled type 2 diabetes mellitus with out complication, without long-term current use of insulin E11.9 [facility] [address] [address] Jul, Controlled type 2 diabetes mellitus with out complication, without long-term current use of insulin E11.9 [facility] [address] [facility] [id number] [address] [place] [address] Jul, Dizziness R42 and BMI 40.0-4 4.9, adult Z68.41 [facility] [address] [address] Jul, Controlled type 2 diabetes mellitus with out complication, without long-term current use of insulin E11.9 [place] [address] [address] Jul, Lumbago with sciatica, unspecified side M54.40 [facility] [address] [id number] Jul, Dental examination Z01.20 [facility] [address] [address] Jun, [facility] [address] [id number] Jun, Dental examination Z01.20 [place] [address] [address] Jun, Controlled type 2 diabetes mellitus with out complication, without long-term current use of insulin E11.9 [facility] [address] [address] Jun, Lumbago with sciatica, unspecified side M54.40 [facility] [address] [id number] May, Dental examination Z01.20 [facility] [address] [address] May, Controlled type 2 diabetes mellitus with out complication, without long-term current use of insulin E11.9 [facility] [address] [id number] May, Dental examination Z01.20 [facility] [address] [address] 18 May, 2017 Bronchitis J40 ; Dry mouth R68.2 ; Non m orbid obesity E66.9 and Controlled type 2 diabetes mellitus without complication, without long-term current use of insulin E11.9 [facility] [address] [address] 16 May, 2017 Encounter for immunization Z 23 [place] [address] [address] 07 May, 2017 Lumbago with sciatica, unspecified side M54.40 [place] [address] [address] 05 May, 2017 [facility] [address] [id number] Apr, Dental examination Z01.20 [place] [address] [address] Apr, Lumbago with sciatica, unspecified side M54.40 [facility] [address] [address] Mar, Lumbago with sciatica, left side M54.42 [place] [address] [address] Mar, [place] [address] [address] Mar, Lumbar neuritis M54.16 [facility] [address] [address] Mar, [facility] [address] [id number] Mar, Dental examination Z01.20 [place] [address] [address] Mar, MELE (obstructive sleep apnea) G47.33 ; N europathy involving both lower extremities G57.93 and Frequent headaches R51 [place] [address] [address] Mar, Lumbago with sciatica, unspecified side M54.40 [place] [address] [address] Feb, Lumbago with sciatica, unspecified side M54.40 and Controlled type 2 diabetes mellitus without complication, without long-term current use of insulin E11.9 [place] [address] [address] 16 Jan, 2017 Hypertension, benign I10 and Bilateral l ow back pain with sciatica, sciatica laterality unspecified M54.40 [place] [address] [address] January, Hypertension, benign I10 ; Lumbago with sciatica, unspecified side M54.40 ; Other chronic pain G89.29 and Controlled type 2 diabetes mellitus without complication, without long-term current use of insulin E11.9 [place] [address] [address] January, Lumbar neuritis M54.16 [place] [address] [address] January, [place] [address] [address] Dec, Lumbago with sciatica, right side M54.41 and Lumbar neuritis M54.16 [place] [address] [address] Dec, Lumbar neuritis M54.16 [place] [address] [address] Dec, Lumbar neuritis M54.16 [place] [address] [address] Nov, Lumbar neuritis M54.16 ; Lumbago with sc iatica, right side M54.41 ; Controlled type 2 diabetes mellitus without complication, without long-term current use of insulin E11.9 and Rash and nonspecific skin eruption R21 [place] [address] [address] 09 Nov, 2016 Lumbar neuritis M54.16 and Poison miroslava L2 3.[address] [address] Oct, Lumbar neuritis M54.16 ; Coughing R05 an d Mood disorder F39 [address] [address] Sep, Lumbago with sciatica, right side M54.[address] [address] Sep, Adjustment disorder with disturbance of emotion F43.29 and Pain management R52 [address] [address] Sep, [place] [address] [address] Sep, [address] [address] Sep, Controlled type 2 diabetes mellitus with out complication, without long-term current use of insulin E11.9 and Lumbago with sciatica, unspecified side M54.[address] [address] Aug, Controlled type 2 diabetes mellitus with out complication, without long-term current use of insulin E11.9 ; Pain in right knee M25.561 ; Pain in left knee M25.562 ; Other chronic pain G89.29 ; Lumbago with sciatica, right side M54.41 ; Neck pain M54.2 and Encounter for immunization Z23 [place] [address] [address] Jul, [address] [address] Jul, Controlled type 2 diabetes mellitus with out complication, without long-term current use of insulin E11.9 [place] [address] [address] Jul, [place] [address] [address] Jul, [place] [address] [address] Jul, Lumbago with sciatica, left side M54.42 ; Lumbago with sciatica, right side M54.41 and Other chronic pain G89.29 [place] [address] [address] Jul, [place] [address] [address] Jul, [place] [address] [address] Jun, [place] [address] [address] Jun, Lumbago with sciatica, right side M54.41 and Other chronic pain G89.29 [place] [address] [address] Jun, Cervicalgia M54.2 ; Lumbago with sciatic a, unspecified side M54.40 and Other chronic pain G89.29 [place] [address] [address] 15 May, 2016 Pain in right knee M25.561 ; Pain in lef t knee M25.562 and Other chronic pain G89.29 [place] [address] [address] 14 May, 2016 [place] [address] [address] 05 Apr, 2016 Other chronic pain G89.29 and Pain in ri ght knee M25.561 [place] [address] [address] Apr, Pain in right knee M25.561 [place] [address] [address] Mar, [place] [address] [address] Mar, Mood disorder F39 and Controlled type 2 diabetes mellitus without complication, without long-term current use of insulin E11.9 [place] [address] [address] Mar, Pain in right knee M25.561 ; Pain in lef t knee M25.562 ; Other chronic pain G89.29 ; Obstructive sleep apnea syndrome G47.33 ; Mood disorder F39 and Controlled type 2 diabetes mellitus without complication, without long-term current use of insulin E11.9 [place] [address] [address] Mar, [facility] [address] [id number] Feb, Dental examination Z01.20 [place] [address] [address] Feb, [place] [address] [address] Feb, Osteoarthritis of right knee, unspecifie d osteoarthritis type M17.9 [place] [address] [address] January, [facility] [address] [id number] January, Dental examination Z01.20 [place] [address] [address] January, [facility] [address] [id number] January, Dental examination Z01.20 and Caries K02 .9 [place] [address] [address] Dec, Encounter for other preprocedural examin ation Z01.818 [facility] [address] [address] Dec, [facility] [address] [address] Dec, Knee pain M25.569 [facility] [address] [address] Dec, Pain in right knee M25.561 [facility] [address] [address] Dec, [facility] [address] [address] Dec, [facility] [address] [address] Dec, Encounter for immunization Z23 [facility] [address] [address] Dec, [facility] [address] [address] Dec, [facility] [address] [address] Nov, [facility] [address] [address] Nov, Hypertension, benign I10 ; Cervicalgia M 54.2 ; Pain in right knee M25.561 and Pain in left knee M25.562 [facility] [address] [address] Oct, [facility] [address] [address] Oct, [facility] [address] [id number] 11 Oct, 2015 Osteoarthritis of both knees M17.0 [facility] [address] [address] Oct, [place] [address] [address] Oct, Low back pain M54.5 [place] [address] [address] Oct, Low back pain M54.5 ; Sciatica, unspecif ied side M54.30 ; Pain in right knee M25.561 ; Pain in left knee M25.562 ; Pain in right shoulder M25.511 and Pain in left shoulder M25.[address] [address] Oct, [address] [address] Sep, Pain in right hip M25.[address] [address] Sep, Acute upper respiratory infection, unspe cified J06.[address] [address] Aug, Acute upper respiratory infection, unspe cified J06.9 and Other viral agents as the cause of diseases classified elsewhere B97.[address] [address] Jul, Arthritis M19.[address] [address] Jun, Arthritis M19.90 ; Pain in right hip M25 .551 ; Pain in left hip M25.552 ; Bilateral low back pain with sciatica, sciatica laterality unspecified M54.40 ; Neck pain M54.2 ; Upper back pain M54.9 and Knee pain, unspecified laterality M25.[address] [address] May, Osteoarthritis of both knees 715.[address] [address] May, Rash 782.1 [facility] [address] [address] Apr, Lumbar strain 847.2 [facility] [address] [address] Apr, Rash 782.1 [facility] [address] [address] Mar, Rash 782.1 [facility] [address] [address] Feb, Rash 782.1 ; Hemorrhoids 455.6 and Const ipation 564.00 [facility] [address] [address] Feb, Osteoarthritis of both knees 715.96 [facility] [address] [address] January, [facility] [address] [address] Dec, [facility] [address] [address] Dec, [facility] [address] [address] Dec, [facility] [address] [address] Nov, [facility] [address] [address] Nov, [facility] [address] [address] Nov, [facility] [address] [address] Nov, [facility] [address] [address] Nov, [facility] [address] [address] Nov, [facility] [place] [facility] [address] [id number] [place] [address] Oct, [facility] [place] [facility] [address] [id number] [place] [address] Oct, [facility] [place] [facility] [address] [id number] [place] [address] Oct, [facility] [place] [facility] [address] [id number] [place] [address] Oct, [facility] [place] [facility] [address] [id number] [place] [address] Oct, [facility] [place] [facility] [address] [id number] [place] [address] Oct, [facility] [place] [facility] [address] [id number] [place] [address] Oct, [facility] [place] [facility] [address] [id number] [place] [address] Oct, [facility] [place] [facility] [address] [id number] [place] [address] Oct, [facility] [place] [facility] [address] [id number] [place] [address] Oct, [facility] [place] [facility] [address] [id number] [place] [address] Oct, [facility] [place] [facility] [address] [id number] [place] [address] Sep, [facility] [place] [facility] [address] [id number] [place] [address] Sep, [facility] [place] [facility] [address] [id number] [place] [address] Sep, [facility] [place] [facility] [address] [id number] [place] [address] Sep, [facility] [place] [facility] [address] [id number] [place] [address] Sep, [facility] [place] [facility] [address] [id number] [place] [address] Sep, [facility] [place] [facility] [address] [id number] [place] [address] Aug, [facility] [place] [facility] [address] [id number] [place] [address] Aug, [facility] [place] [facility] [address] [id number] [place] [address] Aug, [facility] [place] [facility] [address] [id number] [place] [address] Aug, [facility] [place] [facility] [address] [id number] [place] [address] Aug, [facility] [place] [facility] [address] [id number] [place] [address] Aug, [facility] [place] [facility] [address] [id number] [place] [address] Aug, [facility] [place] [facility] [address] [id number] [place] [address] Aug, [facility] [place] [facility] [address] [id number] [place] [address] Aug, [facility] [place] [facility] [address] [id number] [place] [address] Aug, [facility] [place] [facility] [address] [id number] [place] [address] Jul, [facility] [place] [facility] [address] [id number] [place] [address] Jul, [facility] [place] [facility] [address] [id number] [place] [address] Jul, [facility] [place] [facility] [address] [place] [id number] [place] [address] Jul, [facility] [place] [facility] [address] [id number] [place] [address] Jun, [facility] [place] [facility] [address] [id number] [place] [address] Jun, [facility] [place] [facility] [address] [facility] [id number] [place] [address] Jun, [facility] [place] [facility] [address] [facility] [id number] [place] [address] Jun, [facility] [place] [facility] [address] [id number] [place] [address] Jun, [facility] [place] [facility] [address] [id number] [place] [address] Jun, [facility] [place] [facility] [address] [facility] [id number] [place] [address] Jun, [facility] [place] [facility] [address] [id number] [place] [address] Jun, [facility] [place] [facility] [address] [id number] [place] [address] 24 May, 2014 [facility] [place] [facility] [address] [id number] [place] [address] 24 May, 2013 [facility] [place] [facility] [address] [id number] [place] [address] 19 May, 2013 [facility] [place] [facility] [address] [id number] [place] [address] 19 May, 2014 [facility] [place] [facility] [address] [id number] [place] [address] 15 May, 2013 [facility] [place] [facility] [address] [id number] [place] [address] 15 May, 2013 [facility] [place] [facility] [address] [id number] [place] [address] 15 May, 2013 [facility] [place] [facility] [address] [id number] [place] [address] 15 May, 2014 [facility] [place] [facility] [address] [id number] [place] [address] Apr, [facility] [place] [facility] [address] [id number] [place] [address] Apr, [facility] [place] [facility] [address] [id number] [facility] [place] [address] Apr, [facility] [place] [facility] [address] [facility] [id number] [facility] [place] [address] Apr, [facility] [place] [facility] [address] [facility] [id number] [place] [address] Apr, [facility] [place] [facility] [address] [id number] [place] [address] Apr, [facility] [place] [facility] [address] [id number] [place] [address] Apr, [facility] [place] [facility] [address] [facility] [id number] [place] [address] Apr, [facility] [place] [facility] [address] [id number] [place] [address] Apr, [facility] [place] [facility] [address] [id number] [place] [address] Apr, [facility] [place] [facility] [address] [id number] [place] [address] Apr, [facility] [place] [facility] [address] [id number] [place] [address] Apr, [facility] [place] [facility] [address] [id number] [place] [address] Mar, [facility] [place] [facility] [address] [id number] [place] [address] Mar, [facility] [place] [facility] [address] [id number] [place] [address] Mar, [facility] [place] [facility] [address] [id number] [place] [address] Mar, [facility] [place] [facility] [address] [id number] [place] [address] Mar, [facility] [place] [facility] [address] [id number] [place] [address] Mar, [facility] [place] [facility] [address] [id number] [place] [address] Feb, [facility] [place] [facility] [address] [facility] [id number] [place] [address] 18 Feb, 2014 [facility] [place] [facility] [address] [facility] [id number] [place] [address] Feb, [facility] [place] [facility] [address] [facility] [id number] [place] [address] Feb, [facility] [place] [facility] [address] [id number] [place] [address] Feb, [facility] [place] [facility] [address] [facility] [id number] [place] [address] Feb, [facility] [place] [facility] [address] [id number] [place] [address] Feb, [facility] [place] [facility] [address] [id number] [place] [address] Feb, [facility] [place] [facility] [address] [id number] [place] [address] Feb, [facility] [place] [facility] [address] [id number] [place] [address] Feb, [facility] [place] [facility] [address] [id number] [place] [address] Feb, [facility] [place] [facility] [address] [id number] [place] [address] Feb, [facility] [place] [facility] [address] [id number] [place] [address] Feb, [facility] [place] [facility] [address] [id number] [place] [address] Feb, [facility] [place] [facility] [address] [id number] [place] [address] January, [facility] [place] [facility] [address] [id number] [place] [address] January, [facility] [place] [facility] [address] [id number] [place] [address] January, [facility] [place] [facility] [address] [id number] [place] [address] January, [facility] [place] [facility] [address] [id number] [place] [address] January, [facility] [place] [facility] [address] [id number] [facility] [place] [address] January, [facility] [place] [facility] [address] [id number] [place] [address] Dec, [facility] [place] [facility] [address] [id number] [facility] [place] [address] Dec, [facility] [place] [facility] [address] [facility] [id number] [facility] [place] [address] Dec, [facility] [place] [facility] [address] [id number] [place] [address] Dec, [facility] [place] [facility] [address] [id number] [place] [address] Dec, [facility] [place] [facility] [address] [id number] [place] [address] Dec, [facility] [place] [facility] [address] [id number] [place] [address] Dec, [facility] [place] [facility] [address] [id number] [place] [address] Dec, [facility] [place] [facility] [address] [id number] [place] [address] Nov, [facility] [place] [facility] [address] [id number] [place] [address] Nov, [facility] [place] [facility] [address] [id number] [place] [address] Nov, [facility] [place] [facility] [address] [id number] [place] [address] Nov, [facility] [place] [facility] [address] [id number] [place] [address] Nov, [facility] [place] [facility] [address] [id number] [place] [address] Nov, [facility] [place] [facility] [address] [id number] [facility] [place] [address] Nov, [facility] [place] [facility] [address] [facility] [id number] [facility] [place] [address] Nov, [facility] [place] [facility] [address] [facility] [id number] [place] [address] Oct, [facility] [place] [facility] [address] [id number] [place] [address] Oct, [facility] [place] [facility] [address] [facility] [id number] [place] [address] Oct, [facility] [place] [facility] [address] [facility] [id number] [place] [address] Oct, [facility] [place] [facility] [address] [id number] [place] [address] Oct, [facility] [place] [facility] [address] [id number] [place] [address] Oct, [facility] [place] [facility] [address] [id number] [place] [address] Oct, [facility] [place] [facility] [address] [id number] [place] [address] Oct, [facility] [place] [facility] [address] [id number] [place] [address] Oct, [facility] [place] [facility] [address] [id number] [place] [address] Oct, [facility] [place] [facility] [address] [id number] [place] [address] Sep, [facility] [place] [facility] [address] [facility] [id number] [place] [address] Sep, [facility] [place] [facility] [address] [id number] [place] [address] Sep, [facility] [place] [facility] [address] [id number] [place] [address] Sep, [facility] [place] [facility] [address] [id number] [place] [address] Sep, [facility] [place] [facility] [address] [id number] [place] [address] Sep, [facility] [place] [facility] [address] [id number] [place] [address] Aug, [facility] [place] [facility] [address] [id number] [place] [address] Aug, [facility] [place] [facility] [address] [id number] [place] [address] Aug, [facility] [place] [facility] [address] [id number] [place] [address] Aug, [facility] [place] [facility] [address] [id number] [place] [address] Aug, [facility] [place] [facility] [address] [id number] [place] [address] Aug, [facility] [place] [facility] [address] [place] [id number] [place] [address] Aug, [facility] [place] [facility] [address] [id number] [place] [address] Aug, [facility] [place] [facility] [address] [id number] [place] [address] Jul, [facility] [place] [facility] [address] [id number] [place] [address] Jul, [facility] [place] [facility] [address] [place] [address] [id number] [place] [address] Jul, [facility] [place] [facility] [address] [id number] [place] [address] Jul, [facility] [place] [facility] [address] [id number] [place] [address] Jul, [facility] [place] [facility] [address] [id number] [place] [address] Jul, [facility] [place] [facility] [address] [id number] [place] [address] Jun, [facility] [place] [facility] [address] [id number] [place] [address] Jun, [facility] [place] [facility] [address] [facility] [id number] [facility] [place] [address] Jun, [facility] [place] [facility] [address] [facility] [id number] [place] [address] May, [facility] [place] [facility] [address] [id number] [place] [address] May, [facility] [place] [facility] [address] [id number] [place] [address] May, [facility] [place] [facility] [address] [id number] [place] [address] Apr, [facility] [place] [facility] [address] [id number] [place] [address] Apr, [facility] [place] [facility] [address] [id number] [place] [address] Apr, [facility] [place] [facility] [address] [id number] [place] [address] Apr, [facility] [place] [facility] [address] [id number] [place] [address] Mar, [facility] [place] [facility] [address] [id number] [place] [address] Mar, [facility] [place] [facility] [address] [id number] [place] [address] Mar, [facility] [place] [facility] [address] [id number] [place] [address] Mar, [facility] [place] [facility] [address] [id number] [place] [address] Feb, [facility] [place] [facility] [address] [id number] [place] [address] Feb, [facility] [place] [facility] [address] [id number] [place] [address] Feb, [facility] [place] [facility] [address] [id number] [place] [address] Feb, [facility] [place] [facility] [address] [id number] [place] [address] January, [facility] [place] [facility] [address] [id number] [place] [address] January, [facility] [place] [facility] [address] [id number] [place] [address] January, [facility] [place] [facility] [address] [id number] [place] [address] Nov, [facility] [place] [facility] [address] [id number] [place] [address] Nov, [facility] [place] [facility] [address] [id number] [place] [address] Oct, [facility] [place] [facility] [address] [id number] [place] [address] Oct, [facility] [place] [facility] [address] [id number] [place] [address] Oct, [facility] [place] [facility] [address] [id number] [place] [address] Oct, [facility] [place] [facility] [address] [id number] [place] [address] Sep, [facility] [place] [facility] [address] [id number] [place] [address] Sep, [facility] [place] [facility] [address] [id number] [place] [address] Sep, [facility] [place] [facility] [address] [id number] [place] [address] Aug, [facility] [place] [facility] [address] [id number] [place] [address] Aug, [facility] [place] [facility] [address] [id number] [place] [address] Aug, [facility] [place] [facility] [address] [id number] [place] [address] Aug, [facility] [place] [facility] [address] [id number] [place] [address] Aug, [facility] [place] [facility] [address] [id number] [place] [address] Aug, [facility] [place] [facility] [address] [id number] [place] [address] Jul, [facility] [place] [facility] [address] [id number] [place] [address] Jul, [facility] [place] [facility] [address] [id number] [place] [address] Jun, [facility] [place] [facility] [address] [facility] [id number] [place] [address] Jun, [facility] [place] [facility] [address] [id number] [place] [address] Jun, [facility] [place] [facility] [address] [id number] [place] [address] Apr, [facility] [place] [facility] [address] [id number] [place] [address] Apr, [facility] [place] [facility] [address] [id number] [place] [address] Mar, [facility] [place] [facility] [address] [id number] [place] [address] Mar, [facility] [place] [facility] [address] [id number] [place] [address] Mar, [facility] [place] [facility] [address] [id number] [place] [address] Mar, [facility] [place] [facility] [address] [id number] [place] [address] Feb, [facility] [place] [facility] [address] [id number] [place] [address] Feb, [facility] [place] [facility] [address] [id number] [place] [address] Feb, [facility] [place] [facility] [address] [id number] [place] [address] January, [facility] [place] [facility] [address] [id number] [place] [address] January, [facility] [place] [facility] [address] [id number] [place] [address] January, [facility] [place] [facility] [address] [id number] [place] [address] January, [facility] [place] [facility] [address] [id number] [place] [address] Dec, [facility] [place] [facility] [address] [id number] [place] [address] Dec, [facility] [place] [facility] [address] [id number] [place] [address] Nov, [facility] [place] [facility] [address] [id number] [place] [address] Nov, [facility] [place] [facility] [id number] [place] [address] Oct, [facility] [place] [facility] [id number] [place] [address] Oct, [facility] [place] [facility] [address] [id number] [place] [address] Sep, [facility] [place] [facility] [address] [id number] [place] [address] Sep, [facility] [place] [facility] [address] [id number] [place] [address] Sep, [facility] [place] [facility] [address] [id number] [place] [address] Sep, [facility] [place] [facility] [address] [id number] [place] [address] Aug, [facility] [place] [facility] [id number] [place] [address] Aug, [facility] [place] [facility] [address] [id number] [place] [address] Aug, [facility] [place] [facility] [id number] [place] [address] Jul, [facility] [address] [facility] [id number] [place] [address] Aug, [facility] [address] [facility] [id number] [place] [address] Aug, [facility] [address] [facility] [id number] [place] [address] Aug, [facility] [address] [facility] [id number] [place] [address] Aug, [facility] [address] [facility] [id number] [place] [address] Jul, [facility] [id number] [place] [address] Jul, [facility] [address] [facility] [id number] [place] [address] Jul, [facility] [id number] [place] [address] Jun, [facility] [address] [facility] [id number] [place] [address] Jun, [facility] [address] [facility] [id number] [place] [address] Jun, [facility] [address] [facility] [id number] [place] [address] Apr, [facility] [id number] [place] [address] Mar, IMMUNIZATIONS No Known Immunizations SOCIAL HISTORY [...]
--- OUTSIDE RECORDS SUMMARY | 2020-03-18 15:20 | XMS REPORT ---
Author Author George WAYNE Organization [facility] Address [address] [place] [address] Care Team Providers Care Director Construction Services Name Role Phone REYNA WAYNE Unavailable PROBLEMS Type Condition ICD9-CM Code YTC64-YO Code Onset Dates Condition S tatus SNOMED Code Problem Hypertension, benign I10 Active 78776627 Problem Other chronic pain G89.29 Active 8 3260522 Problem Lumbago with sciatica, unspecified side M54.40 Active 506166704 Problem Controlled type 2 diabetes m ellitus without complication, without long- term current use of insulin E11.9 Active 655412112 Problem Lumbago with sciatica, right side M54.41 Active 015415049 Problem Adjustment disorder with disturbance of emotion F4 3.29 Active 58901955 Problem MELE (obstructive sleep apnea) G47.33 Active 64017294 Problem Non morbid obesity E66.9 Active 4 48605196 Problem Hammer toe of left foot M20.42 Active 527116082 Problem Mood disorder F39 Active 220743 05 Problem Deformity of left foot M21.962 Active 227289943 Problem Lumbago with sciatica, left side M54.42 Active 985618540 Problem Erectile dysfunction due to diseases classified elsewhere N52.1 Active 677499289 Problem Obstructive sleep apnea syndrome G47.33 Active 29111090 Problem Type 2 diabetes mellitus wit h diabetic neuropathy, without long-term current use of insulin E11.40 Active 35625 006 Problem Essential hypertension I10 Active 38421466 ALLERGIES No Information ENCOUNTERS Encounter Location Date Diagnosis [facility] [address] [facility] [id number] [address] [place] [id number] Jun, URI, acute J06.9 [facility] [address] [facility] [id number] [address] [place] [address] May, Lumbago with sciatica, unspe cified side M54.40 [facility] [address] [place] [id number] [address] [place] [address] May, [facility] [address] [place] [id number] [place] [phone] May, Type 2 diabetes mellitus wit h diabetic neuropathy, without long- term current use of insulin E11.40 and Hammer toe of left foot M20.42 [facility] [address] [place] [id number] [address] [place] [address] May, [facility] [address] [place] [id number] [place] [phone] May, [facility] [address] [address] May, [facility] [address] [place] [id number] [place] [address] Apr, Lumbago with sciatica, unspe cified side M54.40 [place] [address] [place] [id number] [place] [address] Apr, [facility] [address] [address] Apr, [address] [address] Apr, Hammer toe of left foot M20.42 ; Chest p ain R07.9 ; Preoperative examination Z01.818 and Morbid obesity E66.01 [place] [address] [place] [address] Apr, Morbid obesity E66.01 ; Bron chitis J40 and High risk medications (not anticoagulants) long-term use Z79.899 [place] [address] [place] [id number] [address] [place] [address] Apr, Lumbago with sciatica, unspe cified side M54.40 [place] [address] [place] [id number] [place] [address] Apr, [facility] [address] [id number] [address] [place] [address] Mar, Lumbar neuritis M54.16 and M orbid obesity E66.01 [facility] [address] [id number] [address] [place] [phone] Mar, [facility] [address] [facility] [id number] [address] [place] [id number] Mar, [facility] [address] [facility] [id number] [address] [place] [address] Mar, Lumbago with sciatica, unspe cified side M54.40 [place] [address] [facility] [id number] [address] [place] [address] Mar, Morbid obesity E66.01 ; Coug marco R05 ; 2+ pitting edema R60.9 and Controlled type 2 diabetes mellitus without complication, without long-term current use of insulin E11.9 [place] [address] [facility] [id number] [address] [place] [address] Feb, [facility] [address] [id number] [address] [place] [phone] Feb, Lumbago with sciatica, unspe cified side M54.40 [facility] [address] [facility] [id number] [address] [place] [address] Feb, [facility] [address] [facility] [id number] [address] [place] [id number] Feb, Controlled type 2 diabetes m ellitus without complication, without long-term current use of insulin E11.9 and Morbid obesity E66.01 [facility] [address] [facility] [id number] [address] [place] [address] January, Deformity of left foot M21.9 62 [facility] [address] [id number] [address] [place] [id number] January, [facility] [address] [facility] [id number] [address] [place] [address] January, Lumbago with sciatica, unspe cified side M54.40 [facility] [address] [facility] [id number] [address] [place] [address] January, [facility] [address] [facility] [id number] [address] [place] [address] January, Lumbago with sciatica, unspe cified side M54.40 [facility] [address] [facility] [id number] [address] [place] [id number] January, [facility] [address] [facility] [id number] [address] [place] [address] January, Acute right-sided thoracic b ack pain M54.6 [facility] [address] [facility] [id number] [address] [place] [address] January, Acute right-sided thoracic b ack pain M54.6 [facility] [address] [facility] [id number] [address] [place] [address] January, Chest pain, unspecified type R07.9 ; Morbid obesity E66.01 and Scabies B86 [facility] [address] [facility] [id number] [address] [place] [address] Dec, Lumbago with sciatica, unspe cified side M54.40 [facility] [address] [facility] [id number] [address] [place] [address] Dec, Toenail fungus B35.1 [facility] [address] [facility] [id number] [address] [place] [address] Dec, Toenail fungus B35.1 [facility] [address] [facility] [id number] [address] [place] [address] Dec, Acute right-sided thoracic b ack pain M54.6 [facility] [address] [facility] [id number] [address] [place] [address] Dec, Lumbago with sciatica, unspe cified side M54.40 [facility] [address] [facility] [id number] [address] [place] [address] Nov, Hammer toe of left foot M20. 42 ; Deformity of left foot M21.962 and Type 2 diabetes mellitus with diabetic neuropathy, without long-term current use of insulin E11.40 [facility] [address] [facility] [id number] [address] [place] [address] Nov, Acute right-sided thoracic b ack pain M54.6 ; Morbid obesity E66.01 and Rt flank pain R10.9 [facility] [address] [facility] [id number] [address] [place] [address] Nov, Lumbago with sciatica, unspe cified side M54.40 [facility] [address] [facility] [id number] [address] [place] [address] Oct, Lumbago with sciatica, unspe cified side M54.40 [facility] [address] [place] [id number] [address] [place] [address] Sep, Lumbago with sciatica, unspe cified side M54.40 [facility] [address] [facility] [id number] [address] [place] [address] Sep, [facility] [address] [place] [id number] [address] [place] [address] Sep, BMI 40.0-44.9, adult Z68.41 ; Lumbago with sciatica, left side M54.42 ; Lumbago with sciatica, right side M54.41 and Other chronic pain G89.29 [facility] [address] [facility] [id number] [address] [place] [address] Aug, Lumbago with sciatica, unspe cified side M54.40 [facility] [address] [facility] [id number] [address] [place] [phone] Aug, Type 2 diabetes mellitus wit h diabetic neuropathy, without long- term current use of insulin E11.40 ; Hammer toe of left foot M20.42 ; Hypertension, benign I10 and Frequent headaches R51 [place] [address] [place] [id number] [place] [address] Jul, Lumbago with sciatica, unspe cified side M54.40 [place] [address] [place] [id number] [place] [address] Jul, [place] [address] [address] Jul, Essential hypertension I10 a nd Controlled type 2 diabetes mellitus without complication, without long-term current use of insulin E11.9 [place] [address] [address] Jul, Essential hypertension I10 ; Controlled type 2 diabetes mellitus without complication, without long-term current use of insulin E11.9 and BMI 40.0-44.9, adult Z68.41 [place] [address] [address] Jul, Dysfunction of left eustachi an tube H69.82 [place] [address] [place] [id number] [place] [address] Jul, Lumbago with sciatica, unspe cified side M54.40 [facility] [address] [place] [id number] [address] [place] [address] [id number] Jun, Dental examination Z01.20 [place] [address] [place] [address] Jun, Lumbago with sciatica, unspe cified side M54.40 and Encounter for immunization Z23 [place] [address] [place] [id number] [place] [address] Jun, Dysfunction of left eustachi an tube H69.82 [facility] [id number] [place] [address] [id number] Jun, Dental examination Z01.20 [place] [address] [place] [address] Jun, Other chronic pain G89.29 [facility] [address] [place] [id number] [address] [place] [id number] Jun, Dental examination Z01.20 [facility] [address] [place] [id number] [address] [place] [address] Jun, [facility] [address] [address] Jun, Bronchitis J40 ; Dysfunction of left eustachian tube H69.82 and BMI 45.0-49.9, adult Z68.42 [place] [address] [address] Jun, Lumbago with sciatica, unspe cified side M54.40 [place] [address] [place] [address] May, Type 2 diabetes mellitus wit h diabetic neuropathy, without long- term current use of insulin E11.40 and Hypertension, benign I10 [place] [address] [place] [address] May, Lumbago with sciatica, unspe cified side M54.40 [facility] [address] [place] [id number] [address] [place] [address] Apr, [facility] [address] [place] [id number] [place] [address] Apr, Controlled type 2 diabetes m ellitus without complication, without long-term current use of insulin E11.9 ; Insect bite (nonvenomous), right ankle, initial encounter S90.561A ; Local infection of the skin and subcutaneous tissue, unspecified L08.9 ; Acute swimmer''s ear of left side H60.332 and BMI 45.0-49.9, adult Z68.42 [place] [address] [place] [address] Apr, Lumbago with sciatica, unspe cified side M54.40 [place] [address] [place] [id number] [address] [place] [address] Mar, [place] [address] [place] [id number] [place] [address] Mar, Lumbago with sciatica, unspe cified side M54.40 [place] [address] [place] [id number] [place] [address] Feb, Lumbago with sciatica, unspe cified side M54.40 [place] [address] [place] [id number] [place] [address] Feb, BMI 45.0-49.9, adult Z68.42 and Obstructive sleep apnea syndrome G47.33 [place] [address] [address] January, Lumbar neuritis M54.16 [place] [address] [address] January, Lumbago with sciatica, unspe cified side M54.40 [place] [address] [place] [id number] [place] [address] Dec, Controlled type 2 diabetes m ellitus without complication, without long-term current use of insulin E11.9 ; Erectile dysfunction due to diseases classified elsewhere N52.1 and Mood disorder F39 [place] [address] [address] Dec, Lumbago with sciatica, unspe cified side M54.40 [place] [address] [place] [id number] [place] [address] Dec, Obstructive sleep apnea synd luis G47.33 [place] [address] [place] [id number] [place] [address] Nov, Lumbago with sciatica, unspe cified side M54.40 ; Hypertension, benign I10 and Mood disorder F39 [facility] [address] [id number] [address] [place] [address] Nov, Other chronic pain G89.29 [facility] [address] [id number] [address] [place] [address] Nov, Lumbago with sciatica, unspe cified side M54.40 [facility] [address] [id number] [address] [place] [address] [id number] Nov, Dental examination Z01.20 [facility] [address] [id number] [address] [place] [address] Oct, [facility] [address] [id number] [address] [place] [address] Oct, Lumbago with sciatica, unspe cified side M54.40 [facility] [address] [id number] [address] [place] [address] Oct, Lumbago with sciatica, unspe cified side M54.40 [facility] [address] [id number] [address] [place] [address] Oct, [facility] [address] [id number] [address] [place] [address] Oct, [facility] [address] [id number] [address] [place] [id number] Oct, Dental examination Z01.20 [facility] [address] [id number] [address] [place] [address] Oct, [facility] [address] [id number] [address] [place] [address] Oct, Pain in right knee M25.561 [facility] [address] [id number] [address] [place] [address] Sep, [facility] [address] [id number] [address] [place] [id number] Sep, Other chronic pain G89.29 [facility] [address] [facility] [id number] [address] [place] [address] Sep, Lumbago with sciatica, unspe cified side M54.40 [facility] [address] [facility] [id number] [address] [place] [address] Sep, [facility] [address] [place] [id number] [address] [place] [address] Sep, Viral URI J06.9 and BMI 45.0 -49.9, adult Z68.42 [facility] [address] [facility] [id number] [address] [place] [address] Aug, Foreign body hand S60.559A a nd BMI 45.0-49.9, adult Z68.42 [place] [address] [place] [id number] [place] [address] Aug, [place] [address] [place] [id number] [address] [place] [address] Aug, Lumbago with sciatica, unspe cified side M54.40 [place] [address] [address] Aug, Vertigo R42 ; Dysfunction of both eustachian tubes H69.83 ; Low back pain M54.5 and Other chronic pain G89.29 [facility] [address] [place] [id number] [address] [place] [address] Aug, Dizziness R42 and Acute bila teral otitis media H66.93 [facility] [address] [facility] [id number] [address] [place] [address] Aug, Lumbago with sciatica, unspe cified side M54.40 [facility] [address] [id number] [address] [place] [address] [id number] Jul, Dental examination Z01.20 [facility] [address] [place] [id number] [address] [place] [address] Jul, [facility] [address] [place] [id number] [address] [place] [phone] Jul, [place] [address] [place] [id number] [place] [address] Jul, Dysfunction of both eustachi an tubes H69.83 [place] [address] [place] [id number] [place] [address] Jul, Controlled type 2 diabetes m ellitus without complication, without long-term current use of insulin E11.9 [facility] [address] [place] [id number] [address] [place] [address] Jul, Controlled type 2 diabetes m ellitus without complication, without long-term current use of insulin E11.9 [facility] [address] [address] Jul, Dizziness R42 and BMI 40.0-4 4.9, adult Z68.41 [place] [address] [address] Jul, Controlled type 2 diabetes m ellitus without complication, without long-term current use of insulin E11.9 [place] [address] [place] [id number] [place] [address] Jul, Lumbago with sciatica, unspe cified side M54.40 [facility] [address] [id number] Jul, Dental examination Z01.20 [facility] [address] [place] [id number] [address] [place] [phone] Jun, [facility] [address] [id number] Jun, Dental examination Z01.20 [facility] [address] [place] [id number] [address] [place] [address] Jun, Controlled type 2 diabetes m ellitus without complication, without long-term current use of insulin E11.9 [facility] [address] [id number] [address] [place] [id number] 05 Jun, 2017 Lumbago with sciatica, unspe cified side M54.40 [facility] [address] [facility] [id number] [address] [place] [address] [id number] May, Dental examination Z01.20 [facility] [address] [facility] [id number] [place] [id number] May, Controlled type 2 diabetes m ellitus without complication, without long-term current use of insulin E11.9 [facility] [address] [facility] [id number] [place] [address] [id number] May, Dental examination Z01.20 [facility] [address] [facility] [id number] [place] [address] 18 May, 2017 Bronchitis J40 ; Dry mouth R 68.2 ; Non morbid obesity E66.9 and Controlled type 2 diabetes mellitus without complication, without long-term current use of insulin E11.9 [facility] [address] [facility] [id number] [address] [place] [phone] 16 May, 2017 Encounter for immunization Z 23 [facility] [address] [place] [id number] [address] [place] [id number] 07 May, 2017 Lumbago with sciatica, unspe cified side M54.40 [facility] [address] [facility] [id number] [address] [place] [address] 05 May, 2017 [facility] [address] [place] [id number] [address] [place] [address] [id number] Apr, Dental examination Z01.20 [facility] [address] [facility] [id number] [address] [place] [address] Apr, Lumbago with sciatica, unspe cified side M54.40 [facility] [address] [facility] [id number] [address] [place] [id number] Mar, Lumbago with sciatica, left side M54.42 [place] [address] [id number] [address] [place] [phone] Mar, [place] [address] [id number] [address] [place] [address] Mar, Lumbar neuritis M54.16 [place] [address] [facility] [id number] [address] [place] [id number] Mar, [facility] [address] [id number] [address] [place] [id number] Mar, Dental examination Z01.20 [place] [address] [facility] [id number] [address] [place] [phone] Mar, MELE (obstructive sleep apnea ) G47.33 ; Neuropathy involving both lower extremities G57.93 and Frequent headaches R51 [place] [address] [facility] [id number] [address] [place] [address] Mar, Lumbago with sciatica, unspe cified side M54.40 [place] [address] [id number] [address] [place] [phone] Feb, Lumbago with sciatica, unspe cified side M54.40 and Controlled type 2 diabetes mellitus without complication, without long-term current use of insulin E11.9 [place] [address] [facility] [id number] [address] [place] [address] January, Hypertension, benign I10 and Bilateral low back pain with sciatica, sciatica laterality unspecified M54.40 [place] [address] [id number] [address] [place] [id number] January, Hypertension, benign I10 ; L umbago with sciatica, unspecified side M54.40 ; Other chronic pain G89.29 and Controlled type 2 diabetes mellitus without complication, without long-term current use of insulin E11.9 [place] [address] [facility] [id number] [address] [place] [phone] January, Lumbar neuritis M54.16 [place] [address] [facility] [id number] [place] [phone] January, [place] [id number] [place] [id number] [place] [phone] Dec, Lumbago with sciatica, right side M54.41 and Lumbar neuritis M54.16 [place] [address] [place] [id number] [place] [phone] Dec, Lumbar neuritis M54.16 [place] [address] [place] [id number] [place] [phone] Dec, Lumbar neuritis M54.16 [place] [address] [address] Nov, Lumbar neuritis M54.16 ; Lum bago with sciatica, right side M54.41 ; Controlled type 2 diabetes mellitus without complication, without long-term current use of insulin E11.9 and Rash and nonspecific skin eruption R21 [place] [address] [address] Nov, Lumbar neuritis M54.16 and P oison miroslava L23.7 [place] [address] [address] Oct, Lumbar neuritis M54.16 ; Cou ghing R05 and Mood disorder F39 [place] [address] [address] Sep, Lumbago with sciatica, right side M54.41 [place] [address] [place] [id number] [place] [phone] Sep, Adjustment disorder with dis turbance of emotion F43.29 and Pain management R52 [place] [address] [place] [id number] [place] [phone] Sep, [place] [address] [address] Sep, [place] [address] [place] [address] 16 Sep, 2016 Controlled type 2 diabetes evens reyna without complication, without long-term current use of insulin E11.9 and Lumbago with sciatica, unspecified side M54.40 [facility] [address] [id number] [address] [place] [id number] 16 Aug, 2016 Controlled type 2 diabetes evens reyna without complication, without long-term current use of insulin E11.9 ; Pain in right knee M25.561 ; Pain in left knee M25.562 ; Other chronic pain G89.29 ; Lumbago with sciatica, right side M54.41 ; Neck pain M54.2 and Encounter for immunization Z23 [facility] [address] [id number] [address] [place] [address] Jul, [facility] [address] [facility] [id number] [address] [place] [id number] Jul, Controlled type 2 diabetes evens reyna without complication, without long-term current use of insulin E11.9 [facility] [address] [id number] [address] [place] [id number] 17 Jul, 2016 [facility] [address] [id number] [address] [place] [id number] Jul, [facility] [address] [id number] [address] [place] [address] Jul, Lumbago with sciatica, left side M54.42 ; Lumbago with sciatica, right side M54.41 and Other chronic pain G89.29 [facility] [address] [id number] [address] [place] [address] Jul, [facility] [address] [id number] [address] [place] [address] Jul, [facility] [address] [id number] [address] [place] [address] Jun, [facility] [address] [id number] [address] [place] [address] Jun, Lumbago with sciatica, right side M54.41 and Other chronic pain G89.29 [facility] [address] [id number] [address] [place] [address] Jun, Cervicalgia M54.2 ; Lumbago with sciatica, unspecified side M54.40 and Other chronic pain G89.29 [facility] [address] [id number] [address] [place] [address] 15 May, 2016 Pain in right knee M25.561 ; Pain in left knee M25.562 and Other chronic pain G89.29 [facility] [address] [id number] [address] [place] [address] 14 May, 2016 [facility] [address] [facility] [id number] [address] [place] [address] Apr, Other chronic pain G89.29 an d Pain in right knee M25.561 [facility] [address] [id number] [address] [place] [address] Apr, Pain in right knee M25.561 [facility] [address] [id number] [address] [place] [id number] Mar, [facility] [address] [id number] [address] [place] [address] Mar, Mood disorder F39 and Contro lled type 2 diabetes mellitus without complication, without long-term current use of insulin E11.9 [facility] [address] [id number] [address] [place] [address] Mar, Pain in right knee M25.561 ; Pain in left knee M25.562 ; Other chronic pain G89.29 ; Obstructive sleep apnea syndrome G47.33 ; Mood disorder F39 and Controlled type 2 diabetes mellitus without complication, without long- term current use of insulin E11.9 [facility] [address] [id number] [address] [place] [address] Mar, [facility] [address] [id number] [address] [place] [id number] Feb, Dental examination Z01.20 [facility] [address] [id number] [address] [place] [address] Feb, [facility] [address] [id number] [address] [place] [address] Feb, Osteoarthritis of right knee , unspecified osteoarthritis type M17.9 [facility] [address] [id number] [address] [place] [address] January, [facility] [address] [id number] [address] [place] [id number] January, Dental examination Z01.20 [facility] [address] [id number] [address] [place] [phone] January, [facility] [address] [id number] [address] [place] [id number] January, Dental examination Z01.20 an d Caries K02.9 [facility] [address] [id number] [address] [place] [id number] Dec, Encounter for other preproce dural examination Z01.818 [facility] [address] [id number] [address] [place] [address] Dec, [facility] [address] [id number] [address] [place] [address] Dec, Knee pain M25.569 [facility] [address] [id number] [address] [place] [id number] 15 Dec, 2015 Pain in right knee M25.561 [facility] [address] [id number] [address] [place] [id number] Dec, [facility] [address] [id number] [address] [place] [address] Dec, [facility] [address] [id number] [address] [place] [id number] Dec, Encounter for immunization Z 23 [facility] [address] [id number] [address] [place] [id number] Dec, [facility] [address] [id number] [address] [place] [phone] Dec, [facility] [address] [id number] [address] [place] [id number] Nov, [facility] [address] [facility] [id number] [address] [place] [id number] Nov, Hypertension, benign I10 ; C ervicalgia M54.2 ; Pain in right knee M25.561 and Pain in left knee M25.562 [facility] [address] [id number] [address] [place] [id number] Oct, [facility] [address] [facility] [id number] [address] [place] [phone] Oct, [facility] [address] [facility] [id number] [address] [place] [id number] Oct, Osteoarthritis of both knees M17.0 [facility] [address] [id number] [address] [place] [id number] Oct, [facility] [address] [facility] [id number] [address] [place] [address] Oct, Low back pain M54.5 [facility] [address] [facility] [id number] [address] [place] [address] Oct, Low back pain M54.5 ; Sciati ca, unspecified side M54.30 ; Pain in right knee M25.561 ; Pain in left knee M25.562 ; Pain in right shoulder M25.511 and Pain in left shoulder M25.512 [facility] [address] [id number] [address] [place] [phone] Oct, [facility] [address] [facility] [id number] [address] [place] [address] Sep, Pain in right hip M25.551 [facility] [address] [facility] [id number] [address] [place] [address] Sep, Acute upper respiratory infe ction, unspecified J06.9 [facility] [address] [place] [id number] [address] [place] [address] Aug, Acute upper respiratory infe ction, unspecified J06.9 and Other viral agents as the cause of diseases classified elsewhere B97.89 [place] [address] [place] [id number] [address] [place] [id number] Jul, Arthritis M19.90 [place] [place] [address] [place] [id number] [place] [phone] Jun, Arthritis M19.90 ; Pain in r ight hip M25.551 ; Pain in left hip M25.552 ; Bilateral low back pain with sciatica, sciatica laterality unspecified M54.40 ; Neck pain M54.2 ; Upper back pain M54.9 and Knee pain, unspecified laterality M25.569 [place] [address] [place] [id number] [address] [place] [phone] May, Osteoarthritis of both knees 715.96 [place] [place] [address] [place] [id number] [address] [place] [address] May, Rash 782.1 [place] [address] [place] [id number] [address] [place] [address] Apr, Lumbar strain 847.2 [place] [address] [facility] [id number] [address] [place] [address] Apr, Rash 782.1 [place] [address] [place] [id number] [address] [place] [address] Mar, Rash 782.1 [place] [address] [place] [id number] [address] [place] [address] Feb, Rash 782.1 ; Hemorrhoids 455 .6 and Constipation 564.00 [place] [place] [address] [place] [id number] [address] [place] [id number] 04 Feb, 2015 Osteoarthritis of both knees 715.96 [facility] [address] [id number] [address] [place] [address], [place] [address] 15 Jan, 2015 [facility] [address] [id number] [address] [place] [address], [place] [address] 28 Dec, 2014 [facility] [address] [id number] [address] [place] [id number] 14 Dec, 2014 [facility] [address] [id number] [address] [place] [address], [place] [address] Dec, [facility] [address] [id number] [address] [place] [address], [place] [address] 18 Nov, 2014 [facility] [address] [id number] [address] [place] [id number] 18 Nov, 2014 [facility] [address] [id number] [address] [place] [id number] 18 Nov, 2014 [facility] [address] [id number] [address] [place] [address], [place] [address] Nov, [facility] [address] [id number] [address] [place] [id number] Nov, [facility] [address] [id number] [address] [place] [id number] Nov, [facility] [address] [id number] [address] [place] [id number] Oct, [facility] [address] [id number] [address] [place] [address], [place] [address] Oct, [facility] [address] [id number] [address] [place] [id number] Oct, [facility] [address] [id number] [address] [place] [phone] Oct, [facility] [address] [id number] [address] [place] [id number] Oct, [facility] [address] [id number] [address] [place] [address], [place] [address] Oct, [facility] [address] [id number] [address] [place] [address], [place] [address] Oct, [facility] [address] [id number] [address] [place] [address], [place] [address] Oct, [facility] [address] [id number] [address] [place] [address], [place] [address] Oct, [facility] [address] [id number] [address] [place] [address], [place] [address] Oct, [facility] [address] [id number] [address] [place] [address], [place] [address] Oct, [facility] [address] [id number] [address] [place] [address], [place] [address] Sep, [facility] [address] [id number] [address] [place] [address], [place] [address] Sep, [facility] [address] [id number] [address] [place] [address], [place] [address] Sep, [facility] [address] [id number] [address] [place] [address], [place] [address] Sep, [facility] [address] [id number] [address] [place] [address], [place] [address] Sep, [facility] [address] [id number] [address] [place] [address], [place] [address] Sep, [facility] [address] [id number] [address] [place] [address], [place] [address] Aug, [facility] [address] [id number] [address] [place] [address], [place] [address] Aug, [facility] [address] [id number] [address] [place] [phone] Aug, [facility] [address] [id number] [address] [place] [address], [place] [address] Aug, [facility] [address] [id number] [address] [place] [address], [place] [address] Aug, [facility] [address] [id number] [address] [place] [address], [place] [address] Aug, [facility] [address] [id number] [address] [place] [address], [place] [address] Aug, [facility] [address] [id number] [address] [place] [address], [place] [address] Aug, [facility] [address] [id number] [address] [place] [address], [place] [address] Aug, [facility] [address] [id number] [address] [place] [address], [place] [address] Aug, [facility] [address] [id number] [address] [place] [address], [place] [address] Jul, [facility] [address] [id number] [address] [place] [address], [place] [address] Jul, [facility] [address] [id number] [address] [place] [address], [place] [address] Jul, [facility] [address] [id number] [address] [place] [address], [place] [address] Jul, [facility] [address] [id number] [address] [place] [address], [place] [address] Jun, [facility] [address] [id number] [address] [place] [address], [place] [address] Jun, [facility] [address] [id number] [address] [place] [address], [place] [address] Jun, [facility] [address] [id number] [address] [place] [address], [place] [address] Jun, [facility] [address] [id number] [address] [place] [address], [place] [address] Jun, [facility] [address] [id number] [address] [place] [address], [place] [address] Jun, [facility] [address] [id number] [address] [place] [address], [place] [address] Jun, [facility] [address] [id number] [address] [place] [address], [place] [address] Jun, [facility] [address] [id number] [address] [place] [address], [place] [address] 24 May, 2014 [facility] [address] [id number] [address] [place] [address], [place] [address] 24 May, 2014 [facility] [address] [id number] [address] [place] [address], [place] [address] May, [facility] [address] [id number] [address] [place] [address], [place] [address] May, [facility] [address] [id number] [address] [place] [address], [place] [address] 15 May, 2014 [facility] [address] [id number] [address] [place] [address], [place] [address] 15 May, 2014 [facility] [address] [id number] [address] [place] [address], [place] [address] 15 May, 2014 [facility] [address] [id number] [address] [place] [address], [place] [address] May, [facility] [address] [id number] [address] [place] [address], [place] [address] Apr, [facility] [address] [id number] [address] [place] [address], [place] [address] Apr, [facility] [address] [id number] [address] [place] [address], [place] [address] Apr, [facility] [address] [id number] [address] [place] [address], [place] [address] Apr, [facility] [address] [id number] [facility] [place] [address] Apr, [facility] [address] [id number] [address] [place] [address], [place] [address] Apr, [facility] [address] [id number] [address] [place] [address], [place] [address] Apr, [facility] [address] [id number] [address] [place] [address], [place] [address] Apr, [facility] [address] [id number] [address] [place] [address], [place] [address] Apr, [facility] [address] [id number] [address] [place] [address], [place] [address] Apr, [facility] [address] [id number] [address] [place] [address], [place] [address] Apr, [facility] [address] [id number] [address] [place] [address], [place] [address] Apr, [facility] [address] [id number] [address] [place] [address], [place] [address] Mar, [facility] [address] [id number] [address] [place] [address], [place] [address] Mar, [facility] [address] [id number] [address] [place] [address], [place] [address] Mar, [facility] [address] [id number] [address] [place] [address], [place] [address] Mar, [facility] [address] [id number] [address] [place] [address], [place] [address] Mar, [facility] [address] [id number] [address] [place] [address], [place] [address] Mar, [facility] [address] [id number] [address] [place] [address], [place] [address] Feb, [facility] [address] [id number] [address] [place] [address], [place] [address] Feb, [facility] [address] [id number] [facility] [place] [address] Feb, [facility] [address] [id number] [address] [place] [address], [place] [address] Feb, [facility] [address] [id number] [address] [place] [address], [place] [address] Feb, [facility] [address] [id number] [address] [place] [address], [place] [address] Feb, [facility] [address] [id number] [address] [place] [address], [place] [address] Feb, [facility] [address] [id number] [address] [place] [address], [place] [address] Feb, [facility] [address] [id number] [address] [place] [address], [place] [address] Feb, [facility] [address] [id number] [address] [place] [address], [place] [address] Feb, [facility] [address] [id number] [address] [place] [address], [place] [address] Feb, [facility] [address] [id number] [address] [place] [address], [place] [address] Feb, [facility] [address] [id number] [address] [place] [address], [place] [address] Feb, [facility] [address] [id number] [address] [place] [address], [place] [address] Feb, [facility] [address] [id number] [address] [place] [address], [place] [address] January, [facility] [address] [id number] [address] [place] [address], [place] [address] January, [facility] [address] [id number] [address] [place] [address], [place] [address] January, [facility] [address] [id number] [address] [place] [address], [place] [address] January, [facility] [address] [id number] [facility] [place] [address] January, [facility] [address] [id number] [address] [place] [address], [place] [address] January, [facility] [address] [id number] [address] [place] [address], [place] [address] Dec, [facility] [address] [id number] [address] [place] [address], [place] [address] Dec, [facility] [address] [id number] [address] [place] [address], [place] [address] Dec, [facility] [address] [id number] [address] [place] [address], [place] [address] Dec, [facility] [address] [id number] [address] [place] [address], [place] [address] Dec, [facility] [address] [id number] [address] [place] [address], [place] [address] Dec, [facility] [address] [id number] [address] [place] [address], [place] [address] Dec, [facility] [address] [id number] [address] [place] [address], [place] [address] Dec, [facility] [address] [id number] [address] [place] [address], [place] [address] Nov, [facility] [address] [id number] [address] [place] [address], [place] [address] Nov, [facility] [address] [id number] [address] [place] [address], [place] [address] Nov, [facility] [address] [id number] [address] [place] [address], [place] [address] Nov, [facility] [address] [id number] [address] [place] [address], [place] [address] Nov, [facility] [address] [id number] [address] [place] [address], [place] [address] Nov, [facility] [address] [id number] [address] [place] [address], [place] [address] Nov, [facility] [address] [id number] [address] [place] [address], [place] [address] Nov, [facility] [address] [id number] [address] [place] [address], [place] [address] Oct, [facility] [address] [id number] [address] [place] [address], [place] [address] Oct, [facility] [address] [id number] [address] [place] [address], [place] [address] Oct, [facility] [address] [id number] [address] [place] [address], [place] [address] Oct, [facility] [address] [id number] [address] [place] [address], [place] [address] Oct, [facility] [address] [id number] [address] [place] [address], [place] [address] Oct, [facility] [address] [id number] [address] [place] [address], [place] [address] Oct, [facility] [address] [id number] [address] [place] [address], [place] [address] Oct, [facility] [address] [id number] [address] [place] [address], [place] [address] Oct, [facility] [address] [id number] [address] [place] [address], [place] [address] Oct, [facility] [address] [id number] [address] [place] [address], [place] [address] Sep, [facility] [address] [id number] [address] [place] [address], [place] [address] Sep, [facility] [address] [id number] [address] [place] [address], [place] [address] 14 Sep, 2013 [facility] [address] [id number] [address] [place] [address], [place] [address] 14 Sep, 2013 [facility] [address] [id number] [address] [place] [address], [place] [address] 07 Sep, 2013 [facility] [address] [id number] [address] [place] [address], [place] [address] Sep, [facility] [address] [id number] [address] [place] [address], [place] [address] Aug, [facility] [address] [id number] [address] [place] [address], [place] [address] Aug, [facility] [address] [id number] [address] [place] [address], [place] [address] Aug, [facility] [address] [id number] [address] [place] [address], [place] [address] Aug, [facility] [address] [id number] [address] [place] [address], [place] [address] Aug, [facility] [address] [id number] [address] [place] [address], [place] [address] Aug, [facility] [address] [id number] [address] [place] [address], [place] [address] Aug, [facility] [address] [id number] [address] [place] [address], [place] [address] Aug, [facility] [address] [id number] [address] [place] [address], [place] [address] Jul, [facility] [address] [id number] [address] [place] [address], [place] [address] Jul, [facility] [address] [id number] [address] [place] [address], [place] [address] Jul, [facility] [address] [id number] [address] [place] [address], [place] [address] Jul, [facility] [address] [id number] [address] [place] [address], [place] [address] Jul, [facility] [address] [id number] [address] [place] [address], [place] [address] Jul, [facility] [address] [id number] [address] [place] [address], [place] [address] Jun, [facility] [address] [id number] [address] [place] [address], [place] [address] Jun, [facility] [address] [id number] [address] [place] [address], [place] [address] Jun, [facility] [address] [id number] [address] [place] [address], [place] [address] May, [facility] [address] [id number] [address] [place] [address], [place] [address] May, [facility] [address] [id number] [address] [place] [address], [place] [address] May, [facility] [address] [id number] [address] [place] [address], [place] [address] Apr, [facility] [address] [id number] [address] [place] [address], [place] [address] Apr, [facility] [address] [id number] [address] [place] [address], [place] [address] Apr, [facility] [address] [id number] [address] [place] [address], [place] [address] Apr, [facility] [address] [id number] [address] [place] [address], [place] [address] Mar, [facility] [address] [id number] [address] [place] [address], [place] [address] Mar, [facility] [address] [id number] [address] [place] [address], [place] [address] Mar, [facility] [address] [id number] [address] [place] [address], [place] [address] Mar, [facility] [address] [id number] [address] [place] [address], [place] [address] Feb, [facility] [address] [id number] [address] [place] [address], [place] [address] Feb, [facility] [address] [id number] [address] [place] [address], [place] [address] Feb, [facility] [address] [id number] [address] [place] [address], [place] [address] Feb, [facility] [address] [id number] [address] [place] [address], [place] [address] January, [facility] [address] [id number] [address] [place] [address], [place] [address] January, [facility] [address] [id number] [address] [place] [address], [place] [address] January, [facility] [address] [id number] [address] [place] [address], [place] [address] Nov, [facility] [address] [id number] [address] [place] [address], [place] [address] Nov, [facility] [address] [id number] [address] [place] [address], [place] [address] Oct, [facility] [address] [id number] [address] [place] [address], [place] [address] Oct, [facility] [address] [id number] [address] [place] [address], [place] [address] Oct, [facility] [address] [id number] [address] [place] [address], [place] [address] Oct, [facility] [address] [id number] [address] [place] [address], [place] [address] Sep, [facility] [address] [id number] [address] [place] [address], [place] [address] Sep, [facility] [address] [id number] [address] [place] [address], [place] [address] Sep, [facility] [address] [id number] [address] [place] [address], [place] [address] Aug, [facility] [address] [id number] [address] [place] [address], [place] [address] Aug, [facility] [address] [id number] [address] [place] [address], [place] [address] Aug, [facility] [address] [id number] [address] [place] [address], [place] [address] Aug, [facility] [address] [id number] [address] [place] [address], [place] [address] Aug, [facility] [address] [id number] [address] [place] [address], [place] [address] Aug, [facility] [address] [id number] [address] [place] [address], [place] [address] Jul, [facility] [address] [id number] [address] [place] [address], [place] [address] Jul, [facility] [address] [id number] [address] [place] [address], [place] [address] Jun, [facility] [address] [id number] [address] [place] [address], [place] [address] Jun, [facility] [address] [id number] [address] [place] [address], [place] [address] Jun, [facility] [address] [id number] [address] [place] [address], [place] [address] Apr, [facility] [address] [id number] [address] [place] [address], [place] [address] Apr, [facility] [address] [id number] [address] [place] [address], [place] [address] Mar, [facility] [address] [id number] [address] [place] [address], [place] [address] Mar, [facility] [address] [id number] [address] [place] [address], [place] [address] Mar, [facility] [address] [id number] [address] [place] [address], [place] [address] Mar, [facility] [address] [id number] [address] [place] [address], [place] [address] Feb, [facility] [address] [id number] [address] [place] [address], [place] [address] Feb, [facility] [address] [id number] [address] [place] [address], [place] [address] Feb, [facility] [address] [id number] [address] [place] [address], [place] [address] January, [facility] [address] [id number] [address] [place] [address], [place] [address] January, [facility] [address] [id number] [address] [place] [address], [place] [address] January, [facility] [address] [id number] [address] [place] [address], [place] [address] January, [facility] [address] [id number] [address] [place] [address], [place] [address] Dec, [facility] [address] [id number] [address] [place] [address], [place] [address] Dec, [facility] [address] [id number] [address] [place] [address], [place] [address] Nov, [facility] [address] [id number] [address] [place] [address], [place] [address] Nov, [facility] [address] [id number] [address] [place] [address], [place] [address] 16 Oct, 2011 [facility] [address] [id number] [address] [place] [address], [place] [address] 15 Oct, 2011 [facility] [address] [id number] [address] [place] [address], [place] [address] 09 Sep, 2011 [facility] [address] [id number] [address] [place] [address], [place] [address] Sep, [facility] [address] [id number] [address] [place] [address], [place] [address] Sep, [facility] [address] [id number] [address] [place] [address], [place] [address] Sep, [facility] [address] [id number] [address] [place] [address], [place] [address] 16 Aug, 2011 [facility] [address] [id number] [address] [place] [address], [place] [address] 16 Aug, 2011 [facility] [address] [id number] [address] [place] [address], [place] [address] Aug, [facility] [address] [id number] [address] [place] [address], [place] [address] Jul, [facility] [address] [id number] [address] [place] [address], [place] [address] Aug, [facility] [address] [id number] [address] [place] [address], [place] [address] Aug, [facility] [address] [id number] [address] [place] [address], [place] [address] Aug, [facility] [address] [id number] [address] [place] [address], [place] [address] Aug, [facility] [address] [id number] [address] [place] [address], [place] [address] Jul, [facility] [address] [id number] [address] [place] [address], [place] [address] 17 Jul, 2010 [facility] [address] [id number] [address] [place] [address], [place] [address] 04 Jul, 2010 [facility] [address] [id number] [address] [place] [address], [place] [address] 30 Jun, 2010 [facility] [address] [facility] [id number] [address] [place] [address] Jun, [facility] [address] [facility] [id number] [address] [place] [address] Jun, [facility] [address] [facility] [id number] [address] [place] [address] Apr, [facility] [address] [facility] [id number] [address] [place] [address] Mar, IMMUNIZATIONS No Known Immunizations SOCIAL HISTORY Never Assessed REASON FOR VISIT PLAN OF CARE VITAL SIGNS MEDICATIONS No Known Medications RESULTS No Results PROCEDURES Procedure Date Ordered Result Body Site BLOOD PRESSURE, MEASURED February 26, 2014 INSTRUCTIONS MEDICATIONS ADMINISTERED No Known Medications [...]
--- OUTSIDE RECORDS SUMMARY | 2020-03-18 15:20 | XMS REPORT ---
Author Author George MORIN Organization [facility] Address [address] [place] [address] Care Team Providers Care Salvage Supervisor Name Role Phone MORINJAYDENDARRON Unavailable PROBLEMS Type Condition ICD9-CM Code UKG82-LX Code Onset Dates Condition S tatus SNOMED Code Problem Hypertension, benign I10 Active 31843104 Problem Other chronic pain G89.29 Active 8 3503717 Problem Lumbago with sciatica, unspecified side M54.40 Active 970416755 Problem Controlled type 2 diabetes m ellitus without complication, without long- term current use of insulin E11.9 Active 989683325 Problem Lumbago with sciatica, right side M54.41 Active 676147059 Problem Adjustment disorder with disturbance of emotion F4 3.29 Active 78671542 Problem MELE (obstructive sleep apnea) G47.33 Active 69723418 Problem Non morbid obesity E66.9 Active 4 33019920 Problem Hammer toe of left foot M20.42 Active 328636069 Problem Mood disorder F39 Active 449545 05 Problem Deformity of left foot M21.962 Active 431649849 Problem Lumbago with sciatica, left side M54.42 Active 042415506 Problem Erectile dysfunction due to diseases classified elsewhere N52.1 Active 650454211 Problem Obstructive sleep apnea syndrome G47.33 Active 59635821 Problem Type 2 diabetes mellitus wit h diabetic neuropathy, without long-term current use of insulin E11.40 Active 44495 006 Problem Essential hypertension I10 Active 16829159 ALLERGIES No Information ENCOUNTERS Encounter Location Date Diagnosis [facility] [address] [facility] [id number] [address] [place] [id number] 02 Jun, 2019 URI, acute J06.9 [facility] [address] [facility] [id number] [address] [place] [phone] May, Lumbago with sciatica, unspe cified side M54.40 [place] [address] [facility] [id number] [address] [place] [phone] May, [place] [address] [place] [id number] [place] [phone] May, Type 2 diabetes mellitus wit h diabetic neuropathy, without long- term current use of insulin E11.40 and Hammer toe of left foot M20.42 [place] [address] [address] May, [place] [address] [facility] [id number] [place] [phone] May, [place] [address] [phone] May, [place] [address] [address] Apr, Lumbago with sciatica, unspe cified side M54.40 [place] [address] [place] [id number] [address] [place] [phone] Apr, [place] [address] [address] Apr, [address] [address] Apr, Hammer toe of left foot M20.42 ; Chest p ain R07.9 ; Preoperative examination Z01.818 and Morbid obesity E66.01 [place] [address] [place] [id number] [address] [place] [phone] Apr, Morbid obesity E66.01 ; Bron chitis J40 and High risk medications (not anticoagulants) long-term use Z79.899 [place] [address] [place] [id number] [address] [place] [phone] Apr, Lumbago with sciatica, unspe cified side M54.40 [place] [address] [place] [id number] [address] [place] [phone] Apr, [facility] [address] [id number] [address] [place] [phone] Mar, Lumbar neuritis M54.16 and M orbid obesity E66.01 [facility] [address] [id number] [address] [place] [phone] Mar, [facility] [address] [id number] [address] [place] [phone] Mar, [facility] [address] [id number] [address] [place] [id number] Mar, Lumbago with sciatica, unspe cified side M54.40 [facility] [address] [id number] [address] [place] [phone] Mar, Morbid obesity E66.01 ; Coug marco R05 ; 2+ pitting edema R60.9 and Controlled type 2 diabetes mellitus without complication, without long-term current use of insulin E11.9 [facility] [address] [id number] [address] [place] [phone] Feb, [facility] [address] [id number] [address] [place] [phone] Feb, Lumbago with sciatica, unspe cified side M54.40 [facility] [address] [id number] [address] [place] [id number] Feb, [facility] [address] [id number] [address] [place] [phone] Feb, Controlled type 2 diabetes m ellitus without complication, without long-term current use of insulin E11.9 and Morbid obesity E66.01 [facility] [address] [id number] [address] [place] [phone] January, Deformity of left foot M21.9 62 [facility] [address] [id number] [address] [place] [phone] January, [facility] [address] [facility] [id number] [address] [place] [phone] January, Lumbago with sciatica, unspe cified side M54.40 [facility] [address] [facility] [id number] [address] [place] [phone] January, [facility] [address] [facility] [id number] [address] [place] [phone] January, Lumbago with sciatica, unspe cified side M54.40 [facility] [address] [facility] [id number] [address] [place] [phone] January, [facility] [address] [facility] [id number] [address] [place] [id number] January, Acute right-sided thoracic b ack pain M54.6 [facility] [address] [place] [id number] [address] [place] [phone] January, Acute right-sided thoracic b ack pain M54.6 [facility] [address] [place] [id number] [address] [place] [phone] January, Chest pain, unspecified type R07.9 ; Morbid obesity E66.01 and Scabies B86 [facility] [address] [place] [id number] [address] [place] [id number] Dec, Lumbago with sciatica, unspe cified side M54.40 [facility] [address] [place] [id number] [address] [place] [id number] Dec, Toenail fungus B35.1 [facility] [address] [facility] [id number] [address] [place] [phone] Dec, Toenail fungus B35.1 [facility] [address] [place] [id number] [address] [place] [phone] Dec, Acute right-sided thoracic b ack pain M54.6 [facility] [address] [facility] [id number] [address] [place] [id number] Dec, Lumbago with sciatica, unspe cified side M54.40 [facility] [address] [facility] [id number] [address] [place] [phone] Nov, Hammer toe of left foot M20. 42 ; Deformity of left foot M21.962 and Type 2 diabetes mellitus with diabetic neuropathy, without long-term current use of insulin E11.40 [facility] [address] [facility] [id number] [address] [place] [phone] Nov, Acute right-sided thoracic b ack pain M54.6 ; Morbid obesity E66.01 and Rt flank pain R10.9 [facility] [address] [facility] [id number] [address] [place] [phone] Nov, Lumbago with sciatica, unspe cified side M54.40 [facility] [address] [facility] [id number] [address] [place] [phone] Oct, Lumbago with sciatica, unspe cified side M54.40 [facility] [address] [place] [id number] [address] [place] [phone] Sep, Lumbago with sciatica, unspe cified side M54.40 [facility] [address] [facility] [id number] [address] [place] [phone] Sep, [facility] [address] [facility] [id number] [address] [place] [id number] Sep, BMI 40.0-44.9, adult Z68.41 ; Lumbago with sciatica, left side M54.42 ; Lumbago with sciatica, right side M54.41 and Other chronic pain G89.29 [facility] [address] [facility] [id number] [address] [place] [phone] Aug, Lumbago with sciatica, unspe cified side M54.40 [facility] [address] [facility] [id number] [address] [place] [phone] Aug, Type 2 diabetes mellitus wit h diabetic neuropathy, without long- term current use of insulin E11.40 ; Hammer toe of left foot M20.42 ; Hypertension, benign I10 and Frequent headaches R51 [place] [address] [phone] Jul, Lumbago with sciatica, unspe cified side M54.40 [place] [address] [address] Jul, [place] [address] [address] Jul, Essential hypertension I10 a nd Controlled type 2 diabetes mellitus without complication, without long-term current use of insulin E11.9 [place] [address] [address] Jul, Essential hypertension I10 ; Controlled type 2 diabetes mellitus without complication, without long-term current use of insulin E11.9 and BMI 40.0-44.9, adult Z68.41 [place] [address] [address] Jul, Dysfunction of left eustachi an tube H69.82 [place] [address] [place] [id number] [address] [place] [phone] Jul, Lumbago with sciatica, unspe cified side M54.40 [facility] [address] [place] [id number] [address] [place] [address] [id number] Jun, Dental examination Z01.20 [place] [id number] [place] [address] Jun, Lumbago with sciatica, unspe cified side M54.40 and Encounter for immunization Z23 [place] [address] [address] Jun, Dysfunction of left eustachi an tube H69.82 [facility] [id number] [place] [id number] Jun, Dental examination Z01.20 [place] [address] [place] [id number] [place] [address] Jun, Other chronic pain G89.29 [facility] [address] [place] [id number] [address] [place] [address] [id number] Jun, Dental examination Z01.20 [facility] [address] [place] [id number] [address] [place] [phone] Jun, [facility] [address] [address] Jun, Bronchitis J40 ; Dysfunction of left eustachian tube H69.82 and BMI 45.0-49.9, adult Z68.42 [place] [address] [address] Jun, Lumbago with sciatica, unspe cified side M54.40 [place] [address] [place] [id number] [place] [phone] May, Type 2 diabetes mellitus wit h diabetic neuropathy, without long- term current use of insulin E11.40 and Hypertension, benign I10 [place] [address] [address] May, Lumbago with sciatica, unspe cified side M54.40 [facility] [address] [place] [id number] [address] [place] [address] Apr, [facility] [address] [address] Apr, Controlled type 2 diabetes m ellitus without complication, without long-term current use of insulin E11.9 ; Insect bite (nonvenomous), right ankle, initial encounter S90.561A ; Local infection of the skin and subcutaneous tissue, unspecified L08.9 ; Acute swimmer''s ear of left side H60.332 and BMI 45.0-49.9, adult Z68.42 [place] [address] [address] Apr, Lumbago with sciatica, unspe cified side M54.40 [place] [address] [place] [id number] [address] [place] [phone] Mar, [place] [address] [place] [id number] [address] [place] [phone] Mar, Lumbago with sciatica, unspe cified side M54.40 [place] [address] [place] [id number] [place] [phone] Feb, Lumbago with sciatica, unspe cified side M54.40 [place] [address] [address] Feb, BMI 45.0-49.9, adult Z68.42 and Obstructive sleep apnea syndrome G47.33 [place] [address] [address] January, Lumbar neuritis M54.16 [place] [address] [place] [id number] [place] [phone] January, Lumbago with sciatica, unspe cified side M54.40 [place] [address] [place] [id number] [place] [phone] Dec, Controlled type 2 diabetes m ellitus without complication, without long-term current use of insulin E11.9 ; Erectile dysfunction due to diseases classified elsewhere N52.1 and Mood disorder F39 [place] [address] [place] [phone] Dec, Lumbago with sciatica, unspe cified side M54.40 [place] [address] [place] [id number] [place] [address] Dec, Obstructive sleep apnea synd luis G47.33 [place] [address] [place] [id number] [address] [place] [id number] Nov, Lumbago with sciatica, unspe cified side M54.40 ; Hypertension, benign I10 and Mood disorder F39 [facility] [address] [id number] [address] [place] [phone] Nov, Other chronic pain G89.29 [facility] [address] [id number] [address] [place] [phone] Nov, Lumbago with sciatica, unspe cified side M54.40 [facility] [address] [id number] [address] [place] [address] [id number] Nov, Dental examination Z01.20 [facility] [address] [id number] [address] [place] [phone] Oct, [facility] [address] [id number] [address] [place] [phone] Oct, Lumbago with sciatica, unspe cified side M54.40 [facility] [address] [id number] [address] [place] [phone] Oct, Lumbago with sciatica, unspe cified side M54.40 [facility] [address] [id number] [address] [place] [phone] Oct, [facility] [address] [id number] [address] [place] [phone] Oct, [facility] [address] [id number] [address] [place] [address] [id number] Oct, Dental examination Z01.20 [facility] [address] [id number] [address] [place] [phone] Oct, [facility] [address] [id number] [address] [place] [phone] Oct, Pain in right knee M25.561 [facility] [address] [id number] [address] [place] [phone] Sep, [facility] [address] [id number] [address] [place] [phone] Sep, Other chronic pain G89.29 [facility] [address] [place] [id number] [address] [place] [phone] Sep, Lumbago with sciatica, unspe cified side M54.40 [facility] [address] [facility] [id number] [address] [place] [phone] Sep, [facility] [address] [place] [id number] [address] [place] [phone] Sep, Viral URI J06.9 and BMI 45.0 -49.9, adult Z68.42 [facility] [address] [place] [id number] [place] [address] Aug, Foreign body hand S60.559A a nd BMI 45.0-49.9, adult Z68.42 [place] [address] [address] Aug, [facility] [address] [address] Aug, Lumbago with sciatica, unspe cified side M54.40 [place] [address] [address] Aug, Vertigo R42 ; Dysfunction of both eustachian tubes H69.83 ; Low back pain M54.5 and Other chronic pain G89.29 [facility] [address] [place] [address] Aug, Dizziness R42 and Acute bila teral otitis media H66.93 [place] [address] [place] [id number] [address] [place] [phone] Aug, Lumbago with sciatica, unspe cified side M54.40 [facility] [address] [id number] [address] [place] [address] [id number] Jul, Dental examination Z01.20 [place] [address] [place] [id number] [address] [place] [phone] Jul, [facility] [address] [facility] [id number] [address] [place] [phone] Jul, [place] [address] [facility] [id number] [address] [place] [phone] Jul, Dysfunction of both eustachi an tubes H69.83 [place] [address] [facility] [id number] [address] [place] [phone] Jul, Controlled type 2 diabetes m ellitus without complication, without long-term current use of insulin E11.9 [place] [address] [facility] [id number] [address] [place] [phone] Jul, Controlled type 2 diabetes m ellitus without complication, without long-term current use of insulin E11.9 [facility] [address] [place] [id number] [address] [place] [phone] Jul, Dizziness R42 and BMI 40.0-4 4.9, adult Z68.41 [place] [address] [place] [id number] [address] [place] [id number] Jul, Controlled type 2 diabetes m ellitus without complication, without long-term current use of insulin E11.9 [place] [address] [place] [id number] [address] [place] [phone] Jul, Lumbago with sciatica, unspe cified side M54.40 [facility] [address] [place] [address] [id number] Jul, Dental examination Z01.20 [facility] [address] [facility] [id number] [address] [place] [phone] Jun, [facility] [address] [place] [address] [id number] Jun, Dental examination Z01.20 [place] [address] [facility] [id number] [address] [place] [phone] Jun, Controlled type 2 diabetes m ellitus without complication, without long-term current use of insulin E11.9 [facility] [address] [facility] [id number] [address] [place] [phone] 05 Jun, 2017 Lumbago with sciatica, unspe cified side M54.40 [facility] [address] [id number] [address] [place] [address] [phone] May, Dental examination Z01.20 [facility] [address] [facility] [id number] [address] [place] [phone] May, Controlled type 2 diabetes m ellitus without complication, without long-term current use of insulin E11.9 [facility] [address] [facility] [id number] [place] [address] [id number] May, Dental examination Z01.20 [facility] [address] [facility] [id number] [place] [phone] 18 May, 2017 Bronchitis J40 ; Dry mouth R 68.2 ; Non morbid obesity E66.9 and Controlled type 2 diabetes mellitus without complication, without long-term current use of insulin E11.9 [facility] [address] [place] [id number] [address] [place] [phone] 16 May, 2017 Encounter for immunization Z 23 [facility] [address] [facility] [id number] [address] [place] [phone] 07 May, 2017 Lumbago with sciatica, unspe cified side M54.40 [facility] [address] [facility] [id number] [address] [place] [phone] 05 May, 2017 [facility] [address] [facility] [id number] [place] [address] [id number] Apr, Dental examination Z01.20 [facility] [address] [facility] [id number] [address] [place] [phone] Apr, Lumbago with sciatica, unspe cified side M54.40 [facility] [address] [facility] [id number] [address] [place] [phone] Mar, Lumbago with sciatica, left side M54.42 [place] [address] [id number] [address] [place] [phone] Mar, [facility] [address] [id number] [address] [place] [phone] Mar, Lumbar neuritis M54.16 [place] [id number] [id number] [address] [place] [phone] Mar, [facility] [address] [id number] [address] [place] [phone] Mar, Dental examination Z01.20 [place] [address] [id number] [address] [place] [phone] Mar, MELE (obstructive sleep apnea ) G47.33 ; Neuropathy involving both lower extremities G57.93 and Frequent headaches R51 [place] [address] [facility] [id number] [address] [place] [phone] Mar, Lumbago with sciatica, unspe cified side M54.40 [place] [address] [id number] [address] [place] [phone] Feb, Lumbago with sciatica, unspe cified side M54.40 and Controlled type 2 diabetes mellitus without complication, without long-term current use of insulin E11.9 [place] [address] [facility] [id number] [address] [place] [phone] January, Hypertension, benign I10 and Bilateral low back pain with sciatica, sciatica laterality unspecified M54.40 [place] [address] [id number] [address] [place] [phone] January, Hypertension, benign I10 ; L umbago with sciatica, unspecified side M54.40 ; Other chronic pain G89.29 and Controlled type 2 diabetes mellitus without complication, without long-term current use of insulin E11.9 [place] [address] [id number] [address] [place] [phone] January, Lumbar neuritis M54.16 [place] [address] [address] January, [facility] [address] [address] Dec, Lumbago with sciatica, right side M54.41 and Lumbar neuritis M54.16 [place] [address] [address] Dec, Lumbar neuritis M54.16 [place] [address] [address] Dec, Lumbar neuritis M54.16 [place] [address] [address] Nov, Lumbar neuritis M54.16 ; Lum bago with sciatica, right side M54.41 ; Controlled type 2 diabetes mellitus without complication, without long-term current use of insulin E11.9 and Rash and nonspecific skin eruption R21 [place] [address] [address] Nov, Lumbar neuritis M54.16 and P oison miroslava L23.7 [place] [address] [address] Oct, Lumbar neuritis M54.16 ; Cou ghing R05 and Mood disorder F39 [place] [address] [address] [place] [id number] [place] [id number] Sep, Lumbago with sciatica, right side M54.41 [place] [address] [address] Sep, Adjustment disorder with dis turbance of emotion F43.29 and Pain management R52 [place] [address] [address] Sep, [place] [address] [address] Sep, [place] [address] [place] [id number] [place] [id number] 16 Sep, 2016 Controlled type 2 diabetes m maribell without complication, without long-term current use of insulin E11.9 and Lumbago with sciatica, unspecified side M54.40 [facility] [address] [id number] [address] [place] [id number] 16 Aug, 2016 Controlled type 2 diabetes m maribell without complication, without long-term current use of insulin E11.9 ; Pain in right knee M25.561 ; Pain in left knee M25.562 ; Other chronic pain G89.29 ; Lumbago with sciatica, right side M54.41 ; Neck pain M54.2 and Encounter for immunization Z23 [facility] [address] [id number] [address] [place] [phone] Jul, [facility] [address] [facility] [id number] [address] [place] [address] Jul, Controlled type 2 diabetes evens reyna without complication, without long-term current use of insulin E11.9 [facility] [address] [id number] [address] [place] [phone] Jul, [facility] [address] [id number] [address] [place] [address] Jul, [facility] [address] [id number] [address] [place] [address] Jul, Lumbago with sciatica, left side M54.42 ; Lumbago with sciatica, right side M54.41 and Other chronic pain G89.29 [facility] [address] [id number] [address] [place] [address] Jul, [facility] [address] [id number] [address] [place] [address] Jul, [facility] [address] [id number] [address] [place] [address] Jun, [facility] [address] [facility] [id number] [address] [place] [address] Jun, Lumbago with sciatica, right side M54.41 and Other chronic pain G89.29 [facility] [address] [id number] [address] [place] [address] Jun, Cervicalgia M54.2 ; Lumbago with sciatica, unspecified side M54.40 and Other chronic pain G89.29 [facility] [address] [id number] [address] [place] [address] 15 May, 2016 Pain in right knee M25.561 ; Pain in left knee M25.562 and Other chronic pain G89.29 [facility] [address] [id number] [address] [place] [address] 14 May, 2016 [facility] [address] [facility] [id number] [address] [place] [phone] Apr, Other chronic pain G89.29 an d Pain in right knee M25.561 [facility] [address] [id number] [address] [place] [address] Apr, Pain in right knee M25.561 [facility] [address] [id number] [address] [place] [address] Mar, [facility] [address] [id number] [address] [place] [phone] Mar, Mood disorder F39 and Contro lled type 2 diabetes mellitus without complication, without long-term current use of insulin E11.9 [facility] [address] [id number] [address] [place] [address] Mar, Pain in right knee M25.561 ; Pain in left knee M25.562 ; Other chronic pain G89.29 ; Obstructive sleep apnea syndrome G47.33 ; Mood disorder F39 and Controlled type 2 diabetes mellitus without complication, without long- term current use of insulin E11.9 [facility] [address] [id number] [address] [place] [address] Mar, [facility] [address] [id number] [address] [place] [id number] Feb, Dental examination Z01.20 [facility] [address] [id number] [address] [place] [address] Feb, [facility] [address] [id number] [address] [place] [phone] Feb, Osteoarthritis of right knee , unspecified osteoarthritis type M17.9 [facility] [address] [id number] [address] [place] [address] January, [facility] [address] [id number] [address] [place] [id number] January, Dental examination Z01.20 [facility] [address] [id number] [address] [place] [address] January, [facility] [address] [id number] [address] [place] [id number] January, Dental examination Z01.20 an d Caries K02.9 [facility] [address] [id number] [address] [place] [address] Dec, Encounter for other preproce dural examination Z01.818 [facility] [address] [id number] [address] [place] [address] Dec, [facility] [address] [id number] [address] [place] [address] Dec, Knee pain M25.569 [facility] [address] [id number] [address] [place] [phone] 15 Dec, 2015 Pain in right knee M25.561 [facility] [address] [id number] [address] [place] [address] Dec, [facility] [address] [id number] [address] [place] [phone] Dec, [facility] [address] [id number] [address] [place] [phone] Dec, Encounter for immunization Z 23 [facility] [address] [id number] [address] [place] [phone] Dec, [facility] [address] [id number] [address] [place] [phone] Dec, [facility] [address] [id number] [address] [place] [address] Nov, [facility] [address] [id number] [address] [place] [address] Nov, Hypertension, benign I10 ; C ervicalgia M54.2 ; Pain in right knee M25.561 and Pain in left knee M25.562 [facility] [address] [id number] [address] [place] [phone] Oct, [facility] [address] [id number] [address] [place] [phone] Oct, [facility] [address] [facility] [id number] [address] [place] [phone] Oct, Osteoarthritis of both knees M17.0 [facility] [address] [id number] [address] [place] [phone] Oct, [facility] [address] [id number] [address] [place] [phone] Oct, Low back pain M54.5 [facility] [address] [facility] [id number] [address] [place] [phone] Oct, Low back pain M54.5 ; Sciati ca, unspecified side M54.30 ; Pain in right knee M25.561 ; Pain in left knee M25.562 ; Pain in right shoulder M25.511 and Pain in left shoulder M25.512 [facility] [address] [id number] [address] [place] [phone] Oct, [facility] [address] [id number] [address] [place] [phone] Sep, Pain in right hip M25.551 [facility] [address] [facility] [id number] [address] [place] [phone] Sep, Acute upper respiratory infe ction, unspecified J06.9 [facility] [address] [facility] [id number] [address] [place] [phone] Aug, Acute upper respiratory infe ction, unspecified J06.9 and Other viral agents as the cause of diseases classified elsewhere B97.89 [facility] [address] [facility] [id number] [address] [place] [phone] Jul, Arthritis M19.90 [facility] [address] [facility] [id number] [address] [place] [id number] Jun, Arthritis M19.90 ; Pain in r ight hip M25.551 ; Pain in left hip M25.552 ; Bilateral low back pain with sciatica, sciatica laterality unspecified M54.40 ; Neck pain M54.2 ; Upper back pain M54.9 and Knee pain, unspecified laterality M25.569 [facility] [address] [facility] [id number] [address] [place] [address] May, Osteoarthritis of both knees 715.96 [facility] [address] [facility] [id number] [address] [place] [phone] May, Rash 782.1 [facility] [address] [facility] [id number] [address] [place] [phone] Apr, Lumbar strain 847.2 [facility] [address] [facility] [id number] [address] [place] [phone] Apr, Rash 782.1 [facility] [address] [facility] [id number] [address] [place] [address] Mar, Rash 782.1 [facility] [address] [facility] [id number] [address] [place] [phone] Feb, Rash 782.1 ; Hemorrhoids 455 .6 and Constipation 564.00 [facility] [address] [id number] [address] [place] [id number] 04 Feb, 2015 Osteoarthritis of both knees 715.96 [facility] [address] [id number] [address] [place] [address], [place] [address] January, [facility] [address] [id number] [address] [place] [address], [place] [address] 28 Dec, 2014 [facility] [address] [id number] [address] [place] [id number] 14 Dec, 2014 [facility] [address] [id number] [address] [place] [address], [place] [address] Dec, [facility] [address] [id number] [address] [place] [address], [place] [address] 18 Nov, 2014 [facility] [address] [id number] [address] [place] [phone] Nov, [facility] [address] [id number] [address] [place] [phone] Nov, [facility] [address] [id number] [address] [place] [address], [place] [address] Nov, [facility] [address] [id number] [address] [place] [phone] Nov, [facility] [address] [id number] [address] [place] [phone] Nov, [facility] [address] [id number] [address] [place] [phone] Oct, [facility] [address] [id number] [address] [place] [address], [place] [address] Oct, [facility] [address] [id number] [address] [place] [phone] Oct, [facility] [address] [id number] [address] [place] [phone] Oct, [facility] [address] [id number] [address] [place] [phone] Oct, 2014 [facility] [address] [id number] [address] [place] [address], [place] [address] Oct, 2014 [facility] [address] [id number] [address] [place] [address], [place] [address] Oct, 2014 [facility] [address] [id number] [address] [place] [address], [place] [address] Oct, 2014 [facility] [address] [id number] [address] [place] [address], [place] [address] Oct, 2014 [facility] [address] [id number] [address] [place] [address], [place] [address] Oct, [facility] [address] [id number] [address] [place] [address], [place] [address] Oct, [facility] [address] [id number] [address] [place] [address], [place] [address] Sep, [facility] [address] [id number] [address] [place] [address], [place] [address] Sep, [facility] [address] [id number] [address] [place] [address], [place] [address] Sep, [facility] [address] [id number] [address] [place] [address], [place] [address] Sep, [facility] [address] [id number] [address] [place] [address], [place] [address] Sep, [facility] [address] [id number] [address] [place] [address], [place] [address] Sep, [facility] [address] [id number] [address] [place] [address], [place] [address] Aug, [facility] [address] [id number] [address] [place] [address], [place] [address] Aug, [facility] [address] [id number] [address] [place] [address], [place] [address] Aug, [facility] [address] [id number] [address] [place] [address], [place] [address] Aug, [facility] [address] [id number] [address] [place] [address], [place] [address] Aug, [facility] [address] [id number] [address] [place] [address], [place] [address] Aug, [facility] [address] [id number] [address] [place] [address], [place] [address] Aug, [facility] [address] [id number] [address] [place] [address], [place] [address] Aug, [facility] [address] [id number] [address] [place] [address], [place] [address] Aug, [facility] [address] [id number] [address] [place] [address], [place] [address] Aug, [facility] [address] [id number] [address] [place] [address], [place] [address] Jul, [facility] [address] [id number] [address] [place] [address], [place] [address] Jul, [facility] [address] [id number] [address] [place] [address], [place] [address] Jul, [facility] [address] [id number] [address] [place] [address], [place] [address] Jul, [facility] [address] [id number] [address] [place] [phone] Jun, [facility] [address] [id number] [address] [place] [address], [place] [address] Jun, [facility] [address] [id number] [address] [place] [address], [place] [address] Jun, [facility] [address] [id number] [address] [place] [id number] Jun, [facility] [address] [id number] [address] [place] [address], [place] [address] Jun, [facility] [address] [id number] [address] [place] [address], [place] [address] Jun, [facility] [address] [id number] [address] [place] [address], [place] [address] Jun, [facility] [address] [id number] [address] [place] [address], [place] [address] Jun, [facility] [address] [id number] [address] [place] [address], [place] [address] 24 May, 2014 [facility] [address] [id number] [address] [place] [address], [place] [address] 24 May, 2014 [facility] [address] [id number] [address] [place] [address], [place] [address] May, [facility] [address] [id number] [address] [place] [address], [place] [address] May, [facility] [address] [id number] [address] [place] [address], [place] [address] 15 May, 2014 [facility] [address] [id number] [address] [place] [address], [place] [address] 15 May, 2014 [facility] [address] [id number] [address] [place] [address], [place] [address] 15 May, 2014 [facility] [address] [id number] [address] [place] [address], [place] [address] May, [facility] [address] [id number] [address] [place] [address], [place] [address] Apr, [facility] [address] [id number] [address] [place] [address], [place] [address] Apr, [facility] [address] [id number] [address] [place] [address], [place] [address] Apr, [facility] [address] [id number] [address] [place] [address], [place] [address] Apr, [facility] [address] [id number] [facility] [place] [address] Apr, 2013 [facility] [address] [id number] [facility] [place] [address] Apr, [facility] [address] [id number] [facility] [place] [address] Apr, [facility] [address] [id number] [address] [place] [address], [place] [address] Apr, [facility] [address] [id number] [address] [place] [address], [place] [address] Apr, [facility] [address] [id number] [address] [place] [address], [place] [address] Apr, [facility] [address] [id number] [address] [place] [address], [place] [address] Apr, [facility] [address] [id number] [address] [place] [address], [place] [address] Apr, [facility] [address] [id number] [address] [place] [address], [place] [address] Mar, [facility] [address] [id number] [address] [place] [address], [place] [address] Mar, [facility] [address] [id number] [address] [place] [address], [place] [address] Mar, [facility] [address] [id number] [address] [place] [address], [place] [address] Mar, [facility] [address] [id number] [address] [place] [address], [place] [address] Mar, [facility] [address] [id number] [address] [place] [address], [place] [address] Mar, [facility] [address] [id number] [address] [place] [address], [place] [address] Feb, [facility] [address] [id number] [address] [place] [address], [place] [address] 18 Feb, 2014 [facility] [address] [id number] [facility] [place] [address] Feb, [facility] [address] [id number] [facility] [place] [address] 17 Feb, 2014 [facility] [address] [id number] [facility] [place] [address] Feb, [facility] [address] [id number] [address] [place] [address], [place] [address] Feb, [facility] [address] [id number] [facility] [place] [address] Feb, [facility] [address] [id number] [address] [place] [address], [place] [address] Feb, [facility] [address] [id number] [address] [place] [address], [place] [address] Feb, [facility] [address] [id number] [address] [place] [address], [place] [address] 05 Feb, 2014 [facility] [address] [id number] [address] [place] [address], [place] [address] Feb, [facility] [address] [id number] [address] [place] [address], [place] [address] Feb, [facility] [address] [id number] [address] [place] [address], [place] [address] Feb, [facility] [address] [id number] [address] [place] [address], [place] [address] Feb, [facility] [address] [id number] [address] [place] [address], [place] [address] January, [facility] [address] [id number] [address] [place] [address], [place] [address] January, [facility] [address] [id number] [address] [place] [address], [place] [address] January, [facility] [address] [id number] [facility] [place] [address] January, [facility] [address] [id number] [address] [place] [address], [place] [address] January, [facility] [address] [id number] [address] [place] [address], [place] [address] January, [facility] [address] [id number] [address] [place] [address], [place] [address] Dec, [facility] [address] [id number] [address] [place] [address], [place] [address] Dec, [facility] [address] [id number] [address] [place] [address], [place] [address] Dec, [facility] [address] [id number] [address] [place] [address], [place] [address] Dec, [facility] [address] [id number] [address] [place] [address], [place] [address] Dec, [facility] [address] [id number] [address] [place] [address], [place] [address] Dec, [facility] [address] [id number] [address] [place] [address], [place] [address] Dec, [facility] [address] [id number] [address] [place] [address], [place] [address] Dec, [facility] [address] [id number] [address] [place] [address], [place] [address] Nov, [facility] [address] [id number] [address] [place] [address], [place] [address] Nov, [facility] [address] [id number] [address] [place] [address], [place] [address] Nov, [facility] [address] [id number] [address] [place] [address], [place] [address] Nov, [facility] [address] [id number] [address] [place] [address], [place] [address] Nov, [facility] [address] [id number] [facility] [place] [address] Nov, [facility] [address] [id number] [address] [place] [address], [place] [address] Nov, [facility] [place] [facility] [address] [id number] [facility] [place] [address] Nov, [facility] [place] [facility] [address] [id number] [address] [place] [address], [place] [address] Oct, [facility] [address] [id number] [address] [place] [address], [place] [address] Oct, [facility] [address] [id number] [address] [place] [address], [place] [address] Oct, [facility] [address] [id number] [address] [place] [address], [place] [address] Oct, [facility] [address] [id number] [address] [place] [address], [place] [address] Oct, [facility] [address] [id number] [address] [place] [address], [place] [address] Oct, [facility] [address] [id number] [address] [place] [address], [place] [address] Oct, [facility] [place] [facility] [address] [id number] [address] [place] [address], [place] [address] Oct, [facility] [place] [address] [id number] [address] [place] [address], [place] [address] Oct, [facility] [place] [address] [id number] [address] [place] [address], [place] [address] Oct, [facility] [place] [facility] [address] [id number] [address] [place] [address], [place] [address] Sep, [facility] [place] [facility] [address] [id number] [address] [place] [address], [place] [address] Sep, [facility] [place] [facility] [address] [id number] [address] [place] [address] 14 Sep, 2013 [facility] [address] [id number] [address] [place] [address], [place] [address] 14 Sep, 2013 [facility] [address] [id number] [address] [place] [address], [place] [address] 07 Sep, 2013 [facility] [address] [id number] [address] [place] [address], [place] [address] 07 Sep, 2013 [facility] [address] [id number] [address] [place] [address], [place] [address] Aug, [facility] [address] [id number] [address] [place] [address], [place] [address] Aug, [facility] [address] [id number] [address] [place] [address], [place] [address] Aug, [facility] [address] [id number] [address] [place] [address], [place] [address] Aug, [facility] [address] [id number] [address] [place] [address], [place] [address] Aug, [facility] [address] [id number] [address] [place] [address], [place] [address] Aug, [facility] [address] [id number] [address] [place] [address], [place] [address] Aug, [facility] [address] [id number] [address] [place] [address], [place] [address] Aug, [facility] [address] [id number] [address] [place] [address], [place] [address] Jul, [facility] [address] [id number] [address] [place] [address], [place] [address] Jul, [facility] [address] [id number] [address] [place] [address], [place] [address] Jul, [facility] [facility] [address] [id number] [address] [place] [address], [place] [address] Jul, [facility] [address] [id number] [address] [place] [address], [place] [address] Jul, [facility] [address] [id number] [address] [place] [address], [place] [address] Jul, [facility] [address] [id number] [address] [place] [address], [place] [address] Jun, [facility] [address] [id number] [address] [place] [address], [place] [address] Jun, [facility] [address] [id number] [address] [place] [address], [place] [address] Jun, [facility] [address] [id number] [address] [place] [address], [place] [address] May, [facility] [address] [id number] [address] [place] [address], [place] [address] May, [facility] [address] [id number] [address] [place] [address], [place] [address] May, [facility] [address] [id number] [address] [place] [address], [place] [address] Apr, [facility] [address] [id number] [address] [place] [address], [place] [address] Apr, [facility] [address] [id number] [address] [place] [address], [place] [address] Apr, [facility] [address] [id number] [address] [place] [address], [place] [address] Apr, [facility] [address] [id number] [address] [place] [address], [place] [address] Mar, [facility] [address] [id number] [address] [place] [address], [place] [address] Mar, [facility] [address] [id number] [address] [place] [address], [place] [address] Mar, [facility] [address] [id number] [address] [place] [address], [place] [address] Mar, [facility] [address] [id number] [address] [place] [address], [place] [address] Feb, [facility] [address] [id number] [address] [place] [address], [place] [address] Feb, [facility] [address] [id number] [address] [place] [address], [place] [address] Feb, [facility] [address] [id number] [address] [place] [address], [place] [address] Feb, [facility] [address] [id number] [address] [place] [address], [place] [address] January, [facility] [address] [id number] [address] [place] [address], [place] [address] January, [facility] [address] [id number] [address] [place] [address], [place] [address] January, [facility] [address] [id number] [address] [place] [address], [place] [address] Nov, [facility] [address] [id number] [address] [place] [address], [place] [address] Nov, [facility] [address] [id number] [address] [place] [address], [place] [address] Oct, [facility] [address] [id number] [address] [place] [address], [place] [address] Oct, [facility] [address] [id number] [address] [place] [address], [place] [address] Oct, [facility] [address] [id number] [address] [place] [address], [place] [address] Oct, [facility] [address] [id number] [address] [place] [address], [place] [address] Sep, [facility] [address] [id number] [address] [place] [address], [place] [address] Sep, [facility] [address] [id number] [address] [place] [address], [place] [address] Sep, [facility] [address] [id number] [address] [place] [address], [place] [address] Aug, [facility] [address] [id number] [address] [place] [address], [place] [address] Aug, [facility] [address] [id number] [address] [place] [address], [place] [address] Aug, [facility] [address] [id number] [address] [place] [address], [place] [address] Aug, [facility] [address] [id number] [address] [place] [address], [place] [address] Aug, [facility] [address] [id number] [address] [place] [address], [place] [address] Aug, [facility] [address] [id number] [address] [place] [address], [place] [address] Jul, [facility] [address] [id number] [address] [place] [address], [place] [address] Jul, [facility] [address] [id number] [address] [place] [address], [place] [address] Jun, [facility] [address] [id number] [address] [place] [address], [place] [address] Jun, [facility] [address] [id number] [address] [place] [address], [place] [address] Jun, [facility] [address] [id number] [address] [place] [address], [place] [address] Apr, [facility] [address] [id number] [address] [place] [address], [place] [address] Apr, [facility] [address] [id number] [address] [place] [address], [place] [address] Mar, [facility] [address] [id number] [address] [place] [address], [place] [address] Mar, [facility] [address] [id number] [address] [place] [address], [place] [address] Mar, [facility] [address] [id number] [address] [place] [address], [place] [address] Mar, [facility] [address] [id number] [address] [place] [address], [place] [address] Feb, [facility] [address] [id number] [address] [place] [address], [place] [address] Feb, [facility] [address] [id number] [address] [place] [address], [place] [address] Feb, [facility] [address] [id number] [address] [place] [address], [place] [address] January, [facility] [address] [id number] [address] [place] [address], [place] [address] January, [facility] [address] [id number] [address] [place] [address], [place] [address] January, [facility] [address] [id number] [address] [place] [address], [place] [address] January, [facility] [address] [id number] [address] [place] [address], [place] [address] Dec, [facility] [address] [id number] [address] [place] [address], [place] [address] Dec, [facility] [address] [id number] [address] [place] [address], [place] [address] Nov, [facility] [address] [id number] [address] [place] [address], [place] [address] Nov, [facility] [address] [id number] [address] [place] [address], [place] [address] 16 Oct, 2011 [facility] [address] [id number] [address] [place] [address], [place] [address] 15 Oct, 2011 [facility] [address] [id number] [address] [place] [address], [place] [address] 09 Sep, 2011 [facility] [address] [id number] [address] [place] [address], [place] [address] Sep, [facility] [address] [id number] [address] [place] [address], [place] [address] Sep, [facility] [address] [id number] [address] [place] [address], [place] [address] Sep, [facility] [address] [id number] [address] [place] [address], [place] [address] Aug, [facility] [address] [id number] [address] [place] [address], [place] [address] Aug, [facility] [address] [id number] [address] [place] [address], [place] [address] Aug, [facility] [address] [id number] [address] [place] [address], [place] [address] Jul, [facility] [address] [id number] [address] [place] [address], [place] [address] Aug, [facility] [address] [id number] [address] [place] [address], [place] [address] Aug, [facility] [address] [id number] [address] [place] [address], [place] [address] Aug, [facility] [address] [id number] [address] [place] [address], [place] [address] Aug, [facility] [address] [id number] [address] [place] [address], [place] [address] Jul, [facility] [address] [id number] [address] [place] [address], [place] [address] 17 Jul, 2010 [facility] [address] [id number] [address] [place] [address], [place] [address] Jul, [facility] [address] [id number] [address] [place] [address], [place] [address] Jun, [facility] [address] [facility] [id number] [address] [place] [address] Jun, [facility] [address] [facility] [id number] [address] [place] [address] Jun, [facility] [address] [facility] [id number] [address] [place] [address] Apr, [facility] [address] [facility] [id number] [address] [place] [address] Mar, IMMUNIZATIONS No Known Immunizations SOCIAL HISTORY Never Assessed REASON FOR VISIT PLAN OF CARE VITAL SIGNS Height 66 in 2014-02-27 Weight 251.8 lbs 2014-02-27 Temperature 98 degrees Fahrenheit 2014-02-27 Heart Rate 96 bpm 2014-02-27 Respiratory Rate 16 2014-02-27 Blood pressure systolic 140 mmHg 2014-02-27 Blood pressure diastolic 78 mmHg 2014-02-27 MEDICATIONS No Known Medications RESULTS No Results PROCEDURES Procedure Date Ordered Result Body Site COMPREHEN METABOLIC PANEL February 27, 2014 VENIPUNCT, ROUTINE* February 27, 2014 INSTRUCTIONS MEDICATIONS ADMINISTERED No Known Medications [...]
--- OUTSIDE RECORDS SUMMARY | 2020-03-18 15:21 | XMS REPORT ---
Author Author George WAYNE Organization [facility] Address [address] [place] [address] Care Team Providers Care Feeder Operator Automatic Name Role Phone REYNA WAYNE Unavailable PROBLEMS Type Condition ICD9-CM Code TYG48-OM Code Onset Dates Condition S tatus SNOMED Code Problem Hypertension, benign I10 Active 60661364 Problem Other chronic pain G89.29 Active 8 8835852 Problem Lumbago with sciatica, unspecified side M54.40 Active 283333037 Problem Controlled type 2 diabetes m ellitus without complication, without long- term current use of insulin E11.9 Active 046054369 Problem Lumbago with sciatica, right side M54.41 Active 594163577 Problem Adjustment disorder with disturbance of emotion F4 3.29 Active 31312709 Problem MELE (obstructive sleep apnea) G47.33 Active 26393276 Problem Non morbid obesity E66.9 Active 4 36102921 Problem Hammer toe of left foot M20.42 Active 865455515 Problem Mood disorder F39 Active 843146 05 Problem Deformity of left foot M21.962 Active 076866686 Problem Lumbago with sciatica, left side M54.42 Active 063934208 Problem Erectile dysfunction due to diseases classified elsewhere N52.1 Active 612857001 Problem Obstructive sleep apnea syndrome G47.33 Active 12862859 Problem Type 2 diabetes mellitus wit h diabetic neuropathy, without long-term current use of insulin E11.40 Active 01328 006 Problem Essential hypertension I10 Active [id number] ALLERGIES No Information ENCOUNTERS Encounter Location Date Diagnosis [facility] [address] [facility] [id number] [address] [place] [phone] Jun, URI, acute J06.9 [facility] [address] [facility] [id number] [address] [place] [phone] May, Lumbago with sciatica, unspe cified side M54.40 [facility] [address] [place] [id number] [address] [place] [address] May, [facility] [address] [place] [id number] [place] [address] May, Type 2 diabetes mellitus wit h diabetic neuropathy, without long- term current use of insulin E11.40 and Hammer toe of left foot M20.42 [facility] [address] [place] [id number] [address] [place] [phone] May, [facility] [address] [place] [id number] [place] [address] May, [facility] [address] [address] May, [facility] [address] [place] [id number] [place] [address] Apr, Lumbago with sciatica, unspe cified side M54.40 [place] [address] [place] [id number] [address] [place] [address] Apr, [facility] [address] [address] Apr, [address] [address] Apr, Hammer toe of left foot M20.42 ; Chest p ain R07.9 ; Preoperative examination Z01.818 and Morbid obesity E66.01 [place] [address] [place] [address] Apr, Morbid obesity E66.01 ; Bron chitis J40 and High risk medications (not anticoagulants) long-term use Z79.899 [place] [address] [place] [id number] [address] [place] [address] Apr, Lumbago with sciatica, unspe cified side M54.40 [place] [address] [place] [id number] [address] [place] [address] Apr, [facility] [address] [id number] [address] [place] [address] Mar, Lumbar neuritis M54.16 and M orbid obesity E66.01 [facility] [address] [id number] [address] [place] [id number] Mar, [facility] [address] [facility] [id number] [address] [place] [address] Mar, [facility] [address] [facility] [id number] [address] [place] [address] Mar, Lumbago with sciatica, unspe cified side M54.40 [place] [address] [facility] [id number] [address] [place] [address] Mar, Morbid obesity E66.01 ; Coug marco R05 ; 2+ pitting edema R60.9 and Controlled type 2 diabetes mellitus without complication, without long-term current use of insulin E11.9 [place] [address] [facility] [id number] [address] [place] [address] Feb, [facility] [address] [id number] [address] [place] [address] Feb, Lumbago with sciatica, unspe cified side M54.40 [facility] [address] [facility] [id number] [address] [place] [phone] Feb, [facility] [address] [facility] [id number] [address] [place] [address] Feb, Controlled type 2 diabetes m ellitus without complication, without long-term current use of insulin E11.9 and Morbid obesity E66.01 [facility] [address] [facility] [id number] [address] [place] [address] January, Deformity of left foot M21.9 62 [facility] [address] [id number] [address] [place] [address] January, [facility] [address] [facility] [id number] [address] [place] [address] January, Lumbago with sciatica, unspe cified side M54.40 [facility] [address] [facility] [id number] [address] [place] [phone] January, [facility] [address] [facility] [id number] [address] [place] [address] January, Lumbago with sciatica, unspe cified side M54.40 [facility] [address] [facility] [id number] [address] [place] [address] January, [facility] [address] [facility] [id number] [address] [place] [address] January, Acute right-sided thoracic b ack pain M54.6 [facility] [address] [facility] [id number] [address] [place] [address] January, Acute right-sided thoracic b ack pain M54.6 [facility] [address] [facility] [id number] [address] [place] [address] January, Chest pain, unspecified type R07.9 ; Morbid obesity E66.01 and Scabies B86 [facility] [address] [facility] [id number] [address] [place] [phone] Dec, Lumbago with sciatica, unspe cified side M54.40 [facility] [address] [facility] [id number] [address] [place] [address] Dec, Toenail fungus B35.1 [facility] [address] [facility] [id number] [address] [place] [address] Dec, Toenail fungus B35.1 [facility] [address] [facility] [id number] [address] [place] [address] Dec, Acute right-sided thoracic b ack pain M54.6 [facility] [address] [facility] [id number] [address] [place] [address] Dec, Lumbago with sciatica, unspe cified side M54.40 [facility] [address] [facility] [id number] [address] [place] [address] Nov, Hammer toe of left foot M20. 42 ; Deformity of left foot M21.962 and Type 2 diabetes mellitus with diabetic neuropathy, without long-term current use of insulin E11.40 [facility] [address] [facility] [id number] [address] [place] [address] Nov, Acute right-sided thoracic b ack pain M54.6 ; Morbid obesity E66.01 and Rt flank pain R10.9 [facility] [address] [facility] [id number] [address] [place] [address] Nov, Lumbago with sciatica, unspe cified side M54.40 [facility] [address] [facility] [id number] [address] [place] [address] Oct, Lumbago with sciatica, unspe cified side M54.40 [facility] [address] [place] [id number] [address] [place] [address] Sep, Lumbago with sciatica, unspe cified side M54.40 [facility] [address] [facility] [id number] [address] [place] [address] Sep, [facility] [address] [place] [id number] [address] [place] [address] Sep, BMI 40.0-44.9, adult Z68.41 ; Lumbago with sciatica, left side M54.42 ; Lumbago with sciatica, right side M54.41 and Other chronic pain G89.29 [facility] [address] [facility] [id number] [address] [place] [address] Aug, Lumbago with sciatica, unspe cified side M54.40 [facility] [address] [facility] [id number] [address] [place] [address] Aug, Type 2 diabetes mellitus wit h diabetic neuropathy, without long- term current use of insulin E11.40 ; Hammer toe of left foot M20.42 ; Hypertension, benign I10 and Frequent headaches R51 [place] [address] [place] [id number] [place] [address] Jul, Lumbago with sciatica, unspe cified side M54.40 [place] [address] [place] [id number] [place] [phone] Jul, [place] [address] [address] Jul, Essential hypertension I10 a nd Controlled type 2 diabetes mellitus without complication, without long-term current use of insulin E11.9 [place] [address] [address] Jul, Essential hypertension I10 ; Controlled type 2 diabetes mellitus without complication, without long-term current use of insulin E11.9 and BMI 40.0-44.9, adult Z68.41 [place] [address] [address] Jul, Dysfunction of left eustachi an tube H69.82 [place] [address] [place] [id number] [place] [address] Jul, Lumbago with sciatica, unspe cified side M54.40 [facility] [address] [place] [id number] [address] [place] [id number] Jun, Dental examination Z01.20 [place] [address] [place] [address] Jun, Lumbago with sciatica, unspe cified side M54.40 and Encounter for immunization Z23 [place] [address] [place] [id number] [place] [address] Jun, Dysfunction of left eustachi an tube H69.[address] [facility] [id number] [place] [id number] Jun, Dental examination Z01.20 [place] [address] [place] [address] Jun, Other chronic pain G89.29 [facility] [address] [place] [id number] [address] [place] [address] [id number] Jun, Dental examination Z01.20 [facility] [address] [place] [id number] [address] [place] [phone] Jun, [facility] [address] [address] Jun, Bronchitis J40 ; Dysfunction of left eustachian tube H69.82 and BMI 45.0-49.9, adult Z68.42 [place] [address] [address] Jun, Lumbago with sciatica, unspe cified side M54.40 [place] [address] [place] [address] May, Type 2 diabetes mellitus wit h diabetic neuropathy, without long- term current use of insulin E11.40 and Hypertension, benign I10 [place] [address] [place] [address] May, Lumbago with sciatica, unspe cified side M54.40 [facility] [address] [place] [id number] [address] [place] [phone] Apr, [facility] [address] [place] [id number] [address] [place] [address] Apr, Controlled type 2 diabetes m ellitus without complication, without long-term current use of insulin E11.9 ; Insect bite (nonvenomous), right ankle, initial encounter S90.561A ; Local infection of the skin and subcutaneous tissue, unspecified L08.9 ; Acute swimmer''s ear of left side H60.332 and BMI 45.0-49.9, adult Z68.42 [place] [address] [place] [address] Apr, Lumbago with sciatica, unspe cified side M54.40 [place] [address] [place] [id number] [address] [place] [address] Mar, [place] [address] [place] [id number] [place] [address] Mar, Lumbago with sciatica, unspe cified side M54.40 [place] [address] [place] [id number] [place] [address] Feb, Lumbago with sciatica, unspe cified side M54.40 [place] [address] [place] [id number] [place] [address] Feb, BMI 45.0-49.9, adult Z68.42 and Obstructive sleep apnea syndrome G47.33 [place] [address] [address] January, Lumbar neuritis M54.16 [place] [address] [address] January, Lumbago with sciatica, unspe cified side M54.40 [place] [address] [place] [id number] [place] [address] Dec, Controlled type 2 diabetes m ellitus without complication, without long-term current use of insulin E11.9 ; Erectile dysfunction due to diseases classified elsewhere N52.1 and Mood disorder F39 [place] [address] [address] Dec, Lumbago with sciatica, unspe cified side M54.40 [place] [address] [place] [id number] [place] [address] Dec, Obstructive sleep apnea synd luis G47.33 [place] [address] [place] [id number] [address] [place] [address] Nov, Lumbago with sciatica, unspe cified side M54.40 ; Hypertension, benign I10 and Mood disorder F39 [facility] [address] [id number] [address] [place] [address] Nov, Other chronic pain G89.29 [facility] [address] [id number] [address] [place] [address] Nov, Lumbago with sciatica, unspe cified side M54.40 [facility] [address] [id number] [address] [place] [address] [id number] Nov, Dental examination Z01.20 [facility] [address] [id number] [address] [place] [phone] Oct, [facility] [address] [id number] [address] [place] [phone] Oct, Lumbago with sciatica, unspe cified side M54.40 [facility] [address] [id number] [address] [place] [address] Oct, Lumbago with sciatica, unspe cified side M54.40 [facility] [address] [id number] [address] [place] [address] Oct, [facility] [address] [id number] [address] [place] [address] Oct, [facility] [address] [id number] [address] [place] [address] [id number] Oct, Dental examination Z01.20 [facility] [address] [id number] [address] [place] [address] Oct, [facility] [address] [id number] [address] [place] [address] Oct, Pain in right knee M25.561 [facility] [address] [id number] [address] [place] [address] Sep, [facility] [address] [id number] [address] [place] [address] Sep, Other chronic pain G89.29 [facility] [address] [facility] [id number] [address] [place] [address] Sep, Lumbago with sciatica, unspe cified side M54.40 [facility] [address] [facility] [id number] [address] [place] [address] Sep, [facility] [address] [place] [id number] [address] [place] [address] Sep, Viral URI J06.9 and BMI 45.0 -49.9, adult Z68.42 [facility] [address] [facility] [id number] [address] [place] [address] Aug, Foreign body hand S60.559A a nd BMI 45.0-49.9, adult Z68.42 [place] [address] [place] [id number] [address] [place] [address] Aug, [place] [address] [place] [id number] [address] [place] [address] Aug, Lumbago with sciatica, unspe cified side M54.40 [place] [address] [address] Aug, Vertigo R42 ; Dysfunction of both eustachian tubes H69.83 ; Low back pain M54.5 and Other chronic pain G89.29 [facility] [address] [place] [id number] [address] [place] [address] Aug, Dizziness R42 and Acute bila teral otitis media H66.93 [facility] [address] [facility] [id number] [address] [place] [phone] Aug, Lumbago with sciatica, unspe cified side M54.40 [facility] [address] [id number] [address] [place] [address] [id number] Jul, Dental examination Z01.20 [facility] [address] [place] [id number] [address] [place] [address] Jul, [facility] [address] [place] [id number] [address] [place] [address] Jul, [place] [address] [place] [id number] [place] [address] Jul, Dysfunction of both eustachi an tubes H69.83 [place] [address] [place] [id number] [place] [address] Jul, Controlled type 2 diabetes m ellitus without complication, without long-term current use of insulin E11.9 [facility] [address] [place] [id number] [address] [place] [address] Jul, Controlled type 2 diabetes m ellitus without complication, without long-term current use of insulin E11.9 [facility] [address] [address] Jul, Dizziness R42 and BMI 40.0-4 4.9, adult Z68.41 [place] [address] [address] Jul, Controlled type 2 diabetes m ellitus without complication, without long-term current use of insulin E11.9 [place] [address] [place] [id number] [address] [place] [address] Jul, Lumbago with sciatica, unspe cified side M54.40 [facility] [address] [id number] Jul, Dental examination Z01.20 [facility] [address] [place] [id number] [address] [place] [address] Jun, [facility] [address] [id number] Jun, Dental examination Z01.20 [facility] [address] [place] [id number] [address] [place] [address] Jun, Controlled type 2 diabetes m ellitus without complication, without long-term current use of insulin E11.9 [facility] [address] [id number] [address] [place] [phone] 05 Jun, 2017 Lumbago with sciatica, unspe cified side M54.40 [facility] [address] [facility] [id number] [address] [place] [address] [id number] May, Dental examination Z01.20 [facility] [address] [facility] [id number] [place] [address] May, Controlled type 2 diabetes m ellitus without complication, without long-term current use of insulin E11.9 [facility] [address] [facility] [id number] [place] [address] [id number] May, Dental examination Z01.20 [facility] [address] [facility] [id number] [place] [phone] 18 May, 2017 Bronchitis J40 ; Dry mouth R 68.2 ; Non morbid obesity E66.9 and Controlled type 2 diabetes mellitus without complication, without long-term current use of insulin E11.9 [facility] [address] [facility] [id number] [address] [place] [address] 16 May, 2017 Encounter for immunization Z 23 [facility] [address] [place] [id number] [address] [place] [address] 07 May, 2017 Lumbago with sciatica, unspe cified side M54.40 [facility] [address] [facility] [id number] [address] [place] [phone] 05 May, 2017 [facility] [address] [place] [id number] [address] [place] [address] [id number] Apr, Dental examination Z01.20 [facility] [address] [facility] [id number] [address] [place] [address] Apr, Lumbago with sciatica, unspe cified side M54.40 [facility] [address] [facility] [id number] [address] [place] [phone] Mar, Lumbago with sciatica, left side M54.42 [place] [address] [id number] [address] [place] [id number] Mar, [place] [address] [id number] [address] [place] [id number] Mar, Lumbar neuritis M54.16 [place] [address] [facility] [id number] [address] [place] [phone] Mar, [facility] [address] [id number] [address] [place] [id number] Mar, Dental examination Z01.20 [place] [address] [facility] [id number] [address] [place] [id number] Mar, MELE (obstructive sleep apnea ) G47.33 ; Neuropathy involving both lower extremities G57.93 and Frequent headaches R51 [place] [address] [facility] [id number] [address] [place] [phone] Mar, Lumbago with sciatica, unspe cified side M54.40 [place] [address] [id number] [address] [place] [phone] Feb, Lumbago with sciatica, unspe cified side M54.40 and Controlled type 2 diabetes mellitus without complication, without long-term current use of insulin E11.9 [place] [address] [facility] [id number] [address] [place] [phone] January, Hypertension, benign I10 and Bilateral low back pain with sciatica, sciatica laterality unspecified M54.40 [place] [address] [id number] [address] [place] [phone] January, Hypertension, benign I10 ; L umbago with sciatica, unspecified side M54.40 ; Other chronic pain G89.29 and Controlled type 2 diabetes mellitus without complication, without long-term current use of insulin E11.9 [place] [address] [facility] [id number] [address] [place] [id number] January, Lumbar neuritis M54.16 [place] [address] [facility] [id number] [place] [phone] January, [place] [address] [place] [id number] [place] [phone] Dec, Lumbago with sciatica, right side M54.41 and Lumbar neuritis M54.16 [facility] [address] [place] [id number] [place] [address] Dec, Lumbar neuritis M54.16 [facility] [address] [place] [id number] [place] [address] Dec, Lumbar neuritis M54.16 [facility] [address] [address] Nov, Lumbar neuritis M54.16 ; Lum bago with sciatica, right side M54.41 ; Controlled type 2 diabetes mellitus without complication, without long-term current use of insulin E11.9 and Rash and nonspecific skin eruption R21 [facility] [address] [address] Nov, Lumbar neuritis M54.16 and P oison miroslava L23.7 [facility] [address] [address] Oct, Lumbar neuritis M54.16 ; Cou ghing R05 and Mood disorder F39 [facility] [address] [address] Sep, Lumbago with sciatica, right side M54.41 [facility] [address] [place] [id number] [place] [address] Sep, Adjustment disorder with dis turbance of emotion F43.29 and Pain management R52 [facility] [address] [place] [id number] [place] [address] Sep, [facility] [address] [address] Sep, [facility] [address] [place] [address] 16 Sep, 2016 Controlled type 2 diabetes evens reyna without complication, without long-term current use of insulin E11.9 and Lumbago with sciatica, unspecified side M54.40 [facility] [address] [id number] [address] [place] [address] 16 Aug, 2016 Controlled type 2 diabetes evens reyna without complication, without long-term current use of insulin E11.9 ; Pain in right knee M25.561 ; Pain in left knee M25.562 ; Other chronic pain G89.29 ; Lumbago with sciatica, right side M54.41 ; Neck pain M54.2 and Encounter for immunization Z23 [facility] [address] [id number] [address] [place] [address] Jul, [facility] [address] [facility] [id number] [address] [place] [address] Jul, Controlled type 2 diabetes evens reyna without complication, without long-term current use of insulin E11.9 [facility] [address] [id number] [address] [place] [address] 17 Jul, 2016 [facility] [address] [id number] [address] [place] [address] Jul, [facility] [address] [id number] [address] [place] [address] Jul, Lumbago with sciatica, left side M54.42 ; Lumbago with sciatica, right side M54.41 and Other chronic pain G89.29 [facility] [address] [id number] [address] [place] [address] Jul, [facility] [address] [id number] [address] [place] [address] Jul, [facility] [address] [id number] [address] [place] [address] Jun, [facility] [address] [id number] [address] [place] [address] Jun, Lumbago with sciatica, right side M54.41 and Other chronic pain G89.29 [facility] [address] [id number] [address] [place] [address] Jun, Cervicalgia M54.2 ; Lumbago with sciatica, unspecified side M54.40 and Other chronic pain G89.29 [facility] [address] [id number] [address] [place] [address] 15 May, 2016 Pain in right knee M25.561 ; Pain in left knee M25.562 and Other chronic pain G89.29 [facility] [address] [id number] [address] [place] [address] 14 May, 2016 [facility] [address] [facility] [id number] [address] [place] [address] Apr, Other chronic pain G89.29 an d Pain in right knee M25.561 [facility] [address] [id number] [address] [place] [address] Apr, Pain in right knee M25.561 [facility] [address] [id number] [address] [place] [address] Mar, [facility] [address] [id number] [address] [place] [id number] Mar, Mood disorder F39 and Contro lled type 2 diabetes mellitus without complication, without long-term current use of insulin E11.9 [facility] [address] [id number] [address] [place] [address] Mar, Pain in right knee M25.561 ; Pain in left knee M25.562 ; Other chronic pain G89.29 ; Obstructive sleep apnea syndrome G47.33 ; Mood disorder F39 and Controlled type 2 diabetes mellitus without complication, without long- term current use of insulin E11.9 [facility] [address] [id number] [address] [place] [address] Mar, [facility] [address] [id number] [address] [place] [id number] Feb, Dental examination Z01.20 [facility] [address] [id number] [address] [place] [address] Feb, [facility] [address] [id number] [address] [place] [address] Feb, Osteoarthritis of right knee , unspecified osteoarthritis type M17.9 [facility] [address] [id number] [address] [place] [address] January, [facility] [address] [id number] [address] [place] [id number] January, Dental examination Z01.20 [facility] [address] [id number] [address] [place] [address] January, [facility] [address] [id number] [address] [place] [address] [id number] January, Dental examination Z01.20 an d Caries K02.9 [facility] [address] [id number] [address] [place] [address] Dec, Encounter for other preproce dural examination Z01.818 [facility] [address] [id number] [address] [place] [address] Dec, [facility] [address] [id number] [address] [place] [address] Dec, Knee pain M25.569 [facility] [address] [id number] [address] [place] [address] 15 Dec, 2015 Pain in right knee M25.561 [facility] [address] [id number] [address] [place] [address] Dec, [facility] [address] [id number] [address] [place] [address] Dec, [facility] [address] [id number] [address] [place] [address] Dec, Encounter for immunization Z 23 [facility] [address] [id number] [address] [place] [address] Dec, [facility] [address] [id number] [address] [place] [address] Dec, [facility] [address] [id number] [address] [place] [address] Nov, [facility] [address] [facility] [id number] [address] [place] [address] Nov, Hypertension, benign I10 ; C ervicalgia M54.2 ; Pain in right knee M25.561 and Pain in left knee M25.562 [facility] [address] [id number] [address] [place] [address] Oct, [facility] [address] [facility] [id number] [address] [place] [address] Oct, [facility] [address] [facility] [id number] [address] [place] [address] Oct, Osteoarthritis of both knees M17.0 [facility] [address] [id number] [address] [place] [address] Oct, [facility] [address] [facility] [id number] [address] [place] [address] Oct, Low back pain M54.5 [facility] [address] [facility] [id number] [address] [place] [address] Oct, Low back pain M54.5 ; Sciati ca, unspecified side M54.30 ; Pain in right knee M25.561 ; Pain in left knee M25.562 ; Pain in right shoulder M25.511 and Pain in left shoulder M25.512 [facility] [address] [id number] [address] [place] [address] Oct, [facility] [address] [facility] [id number] [address] [place] [address] Sep, Pain in right hip M25.551 [facility] [address] [facility] [id number] [address] [place] [address] Sep, Acute upper respiratory infe ction, unspecified J06.9 [facility] [address] [place] [id number] [address] [place] [address] Aug, Acute upper respiratory infe ction, unspecified J06.9 and Other viral agents as the cause of diseases classified elsewhere B97.89 [facility] [address] [place] [id number] [address] [place] [address] Jul, Arthritis M19.90 [facility] [address] [place] [id number] [place] [address] Jun, Arthritis M19.90 ; Pain in r ight hip M25.551 ; Pain in left hip M25.552 ; Bilateral low back pain with sciatica, sciatica laterality unspecified M54.40 ; Neck pain M54.2 ; Upper back pain M54.9 and Knee pain, unspecified laterality M25.569 [facility] [place] [address] [place] [id number] [address] [place] [address] May, Osteoarthritis of both knees 715.96 [facility] [address] [place] [id number] [address] [place] [address] May, Rash 782.1 [facility] [place] [address] [place] [id number] [address] [place] [address] Apr, Lumbar strain 847.2 [facility] [place] [address] [facility] [id number] [address] [place] [address] Apr, Rash 782.1 [facility] [address] [place] [id number] [address] [place] [address] Mar, Rash 782.1 [facility] [address] [place] [id number] [address] [place] [address] Feb, Rash 782.1 ; Hemorrhoids 455 .6 and Constipation 564.00 [facility] [place] [address] [place] [id number] [address] [place] [address] 04 Feb, 2015 Osteoarthritis of both knees 715.96 [facility] [address] [id number] [address] [place] [address], [place] [address] 15 Jan, 2015 [facility] [address] [id number] [address] [place] [address], [place] [address] 28 Dec, 2014 [facility] [address] [id number] [address] [place] [id number] 14 Dec, 2014 [facility] [address] [id number] [address] [place] [address], [place] [address] Dec, [facility] [address] [id number] [address] [place] [address], [place] [address] 18 Nov, 2014 [facility] [address] [id number] [address] [place] [address] 18 Nov, 2014 [facility] [address] [id number] [address] [place] [id number] 18 Nov, 2014 [facility] [address] [id number] [address] [place] [address], [place] [address] Nov, [facility] [address] [id number] [address] [place] [phone] Nov, [facility] [address] [id number] [address] [place] [address] Nov, [facility] [address] [id number] [address] [place] [address] Oct, [facility] [address] [id number] [address] [place] [address], [place] [address] Oct, [facility] [address] [id number] [address] [place] [phone] Oct, [facility] [address] [id number] [address] [place] [address] Oct, [facility] [address] [id number] [address] [place] [phone] Oct, [facility] [address] [id number] [address] [place] [address], [place] [address] Oct, [facility] [address] [id number] [address] [place] [address], [place] [address] Oct, [facility] [address] [id number] [address] [place] [address], [place] [address] Oct, [facility] [address] [id number] [address] [place] [address], [place] [address] Oct, [facility] [address] [id number] [address] [place] [address], [place] [address] Oct, [facility] [address] [id number] [address] [place] [address], [place] [address] Oct, [facility] [address] [id number] [address] [place] [address], [place] [address] Sep, [facility] [address] [id number] [address] [place] [address], [place] [address] Sep, [facility] [address] [id number] [address] [place] [address], [place] [address] Sep, [facility] [address] [id number] [address] [place] [address], [place] [address] Sep, [facility] [address] [id number] [address] [place] [address], [place] [address] Sep, [facility] [address] [id number] [address] [place] [address], [place] [address] Sep, [facility] [address] [id number] [address] [place] [address], [place] [address] Aug, [facility] [address] [id number] [address] [place] [address], [place] [address] Aug, [facility] [address] [id number] [address] [place] [address] Aug, [facility] [address] [id number] [address] [place] [address], [place] [address] Aug, [facility] [address] [id number] [address] [place] [address], [place] [address] Aug, [facility] [address] [id number] [address] [place] [address], [place] [address] Aug, [facility] [address] [id number] [address] [place] [address], [place] [address] Aug, [facility] [address] [id number] [address] [place] [address], [place] [address] Aug, [facility] [address] [id number] [address] [place] [address], [place] [address] Aug, [facility] [address] [id number] [address] [place] [address], [place] [address] Aug, [facility] [address] [id number] [address] [place] [address], [place] [address] Jul, [facility] [address] [id number] [address] [place] [address], [place] [address] Jul, [facility] [address] [id number] [address] [place] [address], [place] [address] Jul, [facility] [address] [id number] [address] [place] [address], [place] [address] Jul, [facility] [address] [id number] [address] [place] [address], [place] [address] Jun, [facility] [address] [id number] [address] [place] [address], [place] [address] Jun, [facility] [address] [id number] [address] [place] [address], [place] [address] Jun, [facility] [address] [id number] [address] [place] [address], [place] [address] Jun, [facility] [address] [id number] [address] [place] [address], [place] [address] Jun, [facility] [address] [id number] [address] [place] [address], [place] [address] Jun, [facility] [address] [id number] [address] [place] [address], [place] [address] Jun, [facility] [address] [id number] [address] [place] [address], [place] [address] Jun, [facility] [address] [id number] [address] [place] [address], [place] [address] 24 May, 2014 [facility] [address] [id number] [address] [place] [address], [place] [address] 24 May, 2014 [facility] [address] [id number] [address] [place] [address], [place] [address] May, [facility] [address] [id number] [address] [place] [address], [place] [address] May, [facility] [address] [id number] [address] [place] [address], [place] [address] 15 May, 2014 [facility] [address] [id number] [address] [place] [address], [place] [address] 15 May, 2014 [facility] [address] [id number] [address] [place] [address], [place] [address] 15 May, 2014 [facility] [address] [id number] [address] [place] [address], [place] [address] May, [facility] [address] [id number] [address] [place] [address], [place] [address] Apr, [facility] [address] [id number] [address] [place] [address], [place] [address] Apr, [facility] [address] [id number] [address] [place] [address], [place] [address] Apr, [facility] [address] [id number] [address] [place] [address], [place] [address] Apr, [facility] [address] [id number] [facility] [place] [address] Apr, [facility] [address] [id number] [address] [place] [address], [place] [address] Apr, [facility] [address] [id number] [address] [place] [address], [place] [address] Apr, [facility] [address] [id number] [address] [place] [address], [place] [address] Apr, [facility] [address] [id number] [address] [place] [address], [place] [address] Apr, [facility] [address] [id number] [address] [place] [address], [place] [address] Apr, [facility] [address] [id number] [address] [place] [address], [place] [address] Apr, [facility] [address] [id number] [address] [place] [address], [place] [address] Apr, [facility] [address] [id number] [address] [place] [address], [place] [address] Mar, [facility] [address] [id number] [address] [place] [address], [place] [address] Mar, [facility] [address] [id number] [address] [place] [address], [place] [address] Mar, [facility] [address] [id number] [address] [place] [address], [place] [address] Mar, [facility] [address] [id number] [address] [place] [address], [place] [address] Mar, [facility] [address] [id number] [address] [place] [address], [place] [address] Mar, [facility] [address] [id number] [address] [place] [address], [place] [address] Feb, [facility] [address] [id number] [address] [place] [address], [place] [address] Feb, [facility] [address] [id number] [facility] [place] [address] Feb, [facility] [address] [id number] [address] [place] [address], [place] [address] Feb, [facility] [address] [id number] [address] [place] [address], [place] [address] Feb, [facility] [address] [id number] [address] [place] [address], [place] [address] Feb, [facility] [address] [id number] [address] [place] [address], [place] [address] Feb, [facility] [address] [id number] [address] [place] [address], [place] [address] Feb, [facility] [address] [id number] [address] [place] [address], [place] [address] Feb, [facility] [address] [id number] [address] [place] [address], [place] [address] Feb, [facility] [address] [id number] [address] [place] [address], [place] [address] Feb, [facility] [address] [id number] [address] [place] [address], [place] [address] Feb, [facility] [address] [id number] [address] [place] [address], [place] [address] Feb, [facility] [address] [id number] [address] [place] [address], [place] [address] Feb, [facility] [address] [id number] [address] [place] [address], [place] [address] January, [facility] [address] [id number] [address] [place] [address], [place] [address] January, [facility] [address] [id number] [address] [place] [address], [place] [address] January, [facility] [address] [id number] [address] [place] [address], [place] [address] January, [facility] [address] [id number] [facility] [place] [address] January, [facility] [address] [id number] [address] [place] [address], [place] [address] January, [facility] [address] [id number] [address] [place] [address], [place] [address] Dec, [facility] [address] [id number] [address] [place] [address], [place] [address] Dec, [facility] [address] [id number] [address] [place] [address], [place] [address] Dec, [facility] [address] [id number] [address] [place] [address], [place] [address] Dec, [facility] [address] [id number] [address] [place] [address], [place] [address] Dec, [facility] [address] [id number] [address] [place] [address], [place] [address] Dec, [facility] [address] [id number] [address] [place] [address], [place] [address] Dec, [facility] [address] [id number] [address] [place] [address], [place] [address] Dec, [facility] [address] [id number] [address] [place] [address], [place] [address] Nov, [facility] [address] [id number] [address] [place] [address], [place] [address] Nov, [facility] [address] [id number] [address] [place] [address], [place] [address] Nov, [facility] [address] [id number] [address] [place] [address], [place] [address] Nov, [facility] [address] [id number] [address] [place] [address], [place] [address] Nov, [facility] [address] [id number] [address] [place] [address], [place] [address] Nov, [facility] [address] [id number] [address] [place] [address], [place] [address] Nov, [facility] [address] [id number] [address] [place] [address], [place] [address] Nov, [facility] [address] [id number] [address] [place] [address], [place] [address] Oct, [facility] [address] [id number] [address] [place] [address], [place] [address] Oct, [facility] [address] [id number] [address] [place] [address], [place] [address] Oct, [facility] [address] [id number] [address] [place] [address], [place] [address] Oct, [facility] [address] [id number] [address] [place] [address], [place] [address] Oct, [facility] [address] [id number] [address] [place] [address], [place] [address] Oct, [facility] [address] [id number] [address] [place] [address], [place] [address] Oct, [facility] [address] [id number] [address] [place] [address], [place] [address] Oct, [facility] [address] [id number] [address] [place] [address], [place] [address] Oct, [facility] [address] [id number] [address] [place] [address], [place] [address] Oct, [facility] [address] [id number] [address] [place] [address], [place] [address] Sep, [facility] [address] [id number] [address] [place] [address], [place] [address] Sep, [facility] [address] [id number] [address] [place] [address], [place] [address] 14 Sep, 2013 [facility] [address] [id number] [address] [place] [address], [place] [address] 14 Sep, 2013 [facility] [address] [id number] [address] [place] [address], [place] [address] 07 Sep, 2013 [facility] [address] [id number] [address] [place] [address], [place] [address] Sep, [facility] [address] [id number] [address] [place] [address], [place] [address] Aug, [facility] [address] [id number] [address] [place] [address], [place] [address] Aug, [facility] [address] [id number] [address] [place] [address], [place] [address] Aug, [facility] [address] [id number] [address] [place] [address], [place] [address] Aug, [facility] [address] [id number] [address] [place] [address], [place] [address] Aug, [facility] [address] [id number] [address] [place] [address], [place] [address] Aug, [facility] [address] [id number] [address] [place] [address], [place] [address] Aug, [facility] [address] [id number] [address] [place] [address], [place] [address] Aug, [facility] [address] [id number] [address] [place] [address], [place] [address] Jul, [facility] [address] [id number] [address] [place] [address], [place] [address] Jul, [facility] [address] [id number] [address] [place] [address], [place] [address] Jul, [facility] [address] [id number] [address] [place] [address], [place] [address] Jul, [facility] [address] [id number] [address] [place] [address], [place] [address] Jul, [facility] [address] [id number] [address] [place] [address], [place] [address] Jul, [facility] [address] [id number] [address] [place] [address], [place] [address] Jun, [facility] [address] [id number] [address] [place] [address], [place] [address] Jun, [facility] [address] [id number] [address] [place] [address], [place] [address] Jun, [facility] [address] [id number] [address] [place] [address], [place] [address] May, [facility] [address] [id number] [address] [place] [address], [place] [address] May, [facility] [address] [id number] [address] [place] [address], [place] [address] May, [facility] [address] [id number] [address] [place] [address], [place] [address] Apr, [facility] [address] [id number] [address] [place] [address], [place] [address] Apr, [facility] [address] [id number] [address] [place] [address], [place] [address] Apr, [facility] [address] [id number] [address] [place] [address], [place] [address] Apr, [facility] [address] [id number] [address] [place] [address], [place] [address] Mar, [facility] [address] [id number] [address] [place] [address], [place] [address] Mar, [facility] [address] [id number] [address] [place] [address], [place] [address] Mar, [facility] [address] [id number] [address] [place] [address], [place] [address] Mar, [facility] [address] [id number] [address] [place] [address], [place] [address] Feb, [facility] [address] [id number] [address] [place] [address], [place] [address] Feb, [facility] [address] [id number] [address] [place] [address], [place] [address] Feb, [facility] [address] [id number] [address] [place] [address], [place] [address] Feb, [facility] [address] [id number] [address] [place] [address], [place] [address] January, [facility] [address] [id number] [address] [place] [address], [place] [address] January, [facility] [address] [id number] [address] [place] [address], [place] [address] January, [facility] [address] [id number] [address] [place] [address], [place] [address] Nov, [facility] [address] [id number] [address] [place] [address], [place] [address] Nov, [facility] [address] [id number] [address] [place] [address], [place] [address] Oct, [facility] [address] [id number] [address] [place] [address], [place] [address] Oct, [facility] [address] [id number] [address] [place] [address], [place] [address] Oct, [facility] [address] [id number] [address] [place] [address], [place] [address] Oct, [facility] [address] [id number] [address] [place] [address], [place] [address] Sep, [facility] [address] [id number] [address] [place] [address], [place] [address] Sep, [facility] [address] [id number] [address] [place] [address], [place] [address] Sep, [facility] [address] [id number] [address] [place] [address], [place] [address] Aug, [facility] [address] [id number] [address] [place] [address], [place] [address] Aug, [facility] [address] [id number] [address] [place] [address], [place] [address] Aug, [facility] [address] [id number] [address] [place] [address], [place] [address] Aug, [facility] [address] [id number] [address] [place] [address], [place] [address] Aug, [facility] [address] [id number] [address] [place] [address], [place] [address] Aug, [facility] [address] [id number] [address] [place] [address], [place] [address] Jul, [facility] [address] [id number] [address] [place] [address], [place] [address] Jul, [facility] [address] [id number] [address] [place] [address], [place] [address] Jun, [facility] [address] [id number] [address] [place] [address], [place] [address] Jun, [facility] [address] [id number] [address] [place] [address], [place] [address] Jun, [facility] [address] [id number] [address] [place] [address], [place] [address] Apr, [facility] [address] [id number] [address] [place] [address], [place] [address] Apr, [facility] [address] [id number] [address] [place] [address], [place] [address] Mar, [facility] [address] [id number] [address] [place] [address], [place] [address] Mar, [facility] [address] [id number] [address] [place] [address], [place] [address] Mar, [facility] [address] [id number] [address] [place] [address], [place] [address] Mar, [facility] [address] [id number] [address] [place] [address], [place] [address] Feb, [facility] [address] [id number] [address] [place] [address], [place] [address] Feb, [facility] [address] [id number] [address] [place] [address], [place] [address] Feb, [facility] [address] [id number] [address] [place] [address], [place] [address] January, [facility] [address] [id number] [address] [place] [address], [place] [address] January, [facility] [address] [id number] [address] [place] [address], [place] [address] January, [facility] [address] [id number] [address] [place] [address], [place] [address] January, [facility] [address] [id number] [address] [place] [address], [place] [address] Dec, [facility] [address] [id number] [address] [place] [address], [place] [address] Dec, [facility] [address] [id number] [address] [place] [address], [place] [address] Nov, [facility] [address] [id number] [address] [place] [address], [place] [address] Nov, [facility] [address] [id number] [address] [place] [address], [place] [address] 16 Oct, 2011 [facility] [address] [id number] [address] [place] [address], [place] [address] 15 Oct, 2011 [facility] [address] [id number] [address] [place] [address], [place] [address] 09 Sep, 2011 [facility] [address] [id number] [address] [place] [address], [place] [address] Sep, [facility] [address] [id number] [address] [place] [address], [place] [address] Sep, [facility] [address] [id number] [address] [place] [address], [place] [address] Sep, [facility] [address] [id number] [address] [place] [address], [place] [address] 16 Aug, 2011 [facility] [address] [id number] [address] [place] [address], [place] [address] 16 Aug, 2011 [facility] [address] [id number] [address] [place] [address], [place] [address] Aug, [facility] [address] [id number] [address] [place] [address], [place] [address] Jul, [facility] [address] [id number] [address] [place] [address], [place] [address] Aug, [facility] [address] [id number] [address] [place] [address], [place] [address] Aug, [facility] [address] [id number] [address] [place] [address], [place] [address] Aug, [facility] [address] [id number] [address] [place] [address], [place] [address] Aug, [facility] [address] [id number] [address] [place] [address], [place] [address] Jul, [facility] [address] [id number] [address] [place] [address], [place] [address] 17 Jul, 2010 [facility] [address] [id number] [address] [place] [address], [place] [address] 04 Jul, 2010 [facility] [address] [id number] [address] [place] [address], [place] [address] 30 Jun, 2010 [facility] [address] [facility] [id number] [address] [place] [address] Jun, [facility] [address] [facility] [id number] [address] [place] [address] Jun, [facility] [address] [facility] [id number] [address] [place] [address] Apr, [facility] [address] [facility] [id number] [address] [place] [address] Mar, IMMUNIZATIONS No Known Immunizations SOCIAL HISTORY [...]
--- OUTSIDE RECORDS SUMMARY | 2020-03-18 15:21 | XMS REPORT ---
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 Name Role Phone REYNA WAYNE Unavailable PROBLEMS Type Condition ICD9-CM Code BEC30-HB Code Onset Dates Condition S tatus SNOMED Code Problem Hypertension, benign I10 Active 30158252 Problem Other chronic pain G89.29 Active 8 1812461 Problem Lumbago with sciatica, unspecified side M54.40 Active 213263971 Problem Controlled type 2 diabetes m ellitus without complication, without long- term current use of insulin E11.9 Active 042211915 Problem Lumbago with sciatica, right side M54.41 Active 271744329 Problem Adjustment disorder with disturbance of emotion F4 3.29 Active 40415984 Problem MELE (obstructive sleep apnea) G47.33 Active 36944171 Problem Non morbid obesity E66.9 Active 4 59588809 Problem Hammer toe of left foot M20.42 Active 323978310 Problem Mood disorder F39 Active 050556 05 Problem Deformity of left foot M21.962 Active 447990440 Problem Lumbago with sciatica, left side M54.42 Active 216895206 Problem Erectile dysfunction due to diseases classified elsewhere N52.1 Active 272123159 Problem Obstructive sleep apnea syndrome G47.33 Active 84481928 Problem Type 2 diabetes mellitus wit h diabetic neuropathy, without long-term current use of insulin E11.40 Active 81473 006 Problem Essential hypertension I10 Active 37712511 ALLERGIES No Information ENCOUNTERS Encounter Location Date Diagnosis [facility] [address] [id number] [address] [place] [address] May, Lumbago with sciatica, unspe cified side M54.40 [facility] [address] [facility] [id number] [address] [place] [address] May, [facility] [address] [address] May, Type 2 diabetes mellitus wit h diabetic neuropathy, without long- term current use of insulin E11.40 and Hammer toe of left foot M20.42 [place] [address] [address] May, [facility] [address] [address] May, [place] [address] [address] May, [place] [address] [address] Apr, Lumbago with sciatica, unspe cified side M54.40 [place] [address] [address] Apr, [place] [address] [address] Apr, [address] [address] Apr, Hammer toe of left foot M20.42 ; Chest p ain R07.9 ; Preoperative examination Z01.818 and Morbid obesity E66.01 [place] [address] [address] Apr, Morbid obesity E66.01 ; Bron chitis J40 and High risk medications (not anticoagulants) long-term use Z79.899 [place] [address] [address] Apr, Lumbago with sciatica, unspe cified side M54.40 [place] [address] [address] Apr, [place] [address] [address] Mar, Lumbar neuritis M54.16 and M orbid obesity E66.01 [facility] [address] [id number] [address] [place] [address] Mar, [facility] [address] [id number] [address] [place] [address] Mar, [facility] [address] [facility] [id number] [address] [place] [address] Mar, Lumbago with sciatica, unspe cified side M54.40 [facility] [address] [id number] [address] [place] [address] Mar, Morbid obesity E66.01 ; Coug marco R05 ; 2+ pitting edema R60.9 and Controlled type 2 diabetes mellitus without complication, without long-term current use of insulin E11.9 [place] [address] [id number] [address] [place] [address] Feb, [facility] [address] [id number] [address] [place] [address] Feb, Lumbago with sciatica, unspe cified side M54.40 [facility] [address] [id number] [address] [place] [address] Feb, [facility] [address] [id number] [address] [place] [address] Feb, Controlled type 2 diabetes m ellitus without complication, without long-term current use of insulin E11.9 and Morbid obesity E66.01 [facility] [address] [id number] [address] [place] [address] January, Deformity of left foot M21.9 62 [facility] [address] [id number] [address] [place] [address] January, [facility] [address] [id number] [address] [place] [address] January, Lumbago with sciatica, unspe cified side M54.40 [facility] [address] [id number] [address] [place] [address] January, [facility] [address] [facility] [id number] [address] [place] [address] January, Lumbago with sciatica, unspe cified side M54.40 [facility] [address] [facility] [id number] [address] [place] [address] January, [facility] [address] [id number] [address] [place] [address] January, Acute right-sided thoracic b ack pain M54.6 [facility] [address] [address] [id number] [place] [address] January, Acute right-sided thoracic b ack pain M54.6 [facility] [address] [id number] [address] [place] [address] January, Chest pain, unspecified type R07.9 ; Morbid obesity E66.01 and Scabies B86 [facility] [id number] [address] [place] [address] Dec, Lumbago with sciatica, unspe cified side M54.40 [facility] [address] [id number] [address] [place] [address] Dec, Toenail fungus B35.1 [place] [address] [address] [id number] [address] [place] [address] Dec, Toenail fungus B35.1 [facility] [address] [id number] [address] [place] [address] Dec, Acute right-sided thoracic b ack pain M54.6 [facility] [address] [facility] [id number] [address] [place] [address] Dec, Lumbago with sciatica, unspe cified side M54.40 [facility] [address] [facility] [id number] [address] [place] [address] Nov, Hammer toe of left foot M20. 42 ; Deformity of left foot M21.962 and Type 2 diabetes mellitus with diabetic neuropathy, without long-term current use of insulin E11.40 [facility] [address] [address] Nov, Acute right-sided thoracic b ack pain M54.6 ; Morbid obesity E66.01 and Rt flank pain R10.9 [place] [address] [address] Nov, Lumbago with sciatica, unspe cified side M54.40 [place] [address] [address] Oct, Lumbago with sciatica, unspe cified side M54.40 [facility] [address] [address] Sep, Lumbago with sciatica, unspe cified side M54.40 [facility] [address] [address] Sep, [place] [address] [address] Sep, BMI 40.0-44.9, adult Z68.41 ; Lumbago with sciatica, left side M54.42 ; Lumbago with sciatica, right side M54.41 and Other chronic pain G89.29 [facility] [address] [address] Aug, Lumbago with sciatica, unspe cified side M54.40 [place] [address] [address] Aug, Type 2 diabetes mellitus wit h diabetic neuropathy, without long- term current use of insulin E11.40 ; Hammer toe of left foot M20.42 ; Hypertension, benign I10 and Frequent headaches R51 [facility] [address] [address] Jul, Lumbago with sciatica, unspe cified side M54.40 [place] [address] [facility] [id number] [address] [place] [address] Jul, [place] [address] [facility] [id number] [address] [place] [address] Jul, Essential hypertension I10 a nd Controlled type 2 diabetes mellitus without complication, without long-term current use of insulin E11.9 [place] [address] [facility] [id number] [address] [place] [address] Jul, Essential hypertension I10 ; Controlled type 2 diabetes mellitus without complication, without long-term current use of insulin E11.9 and BMI 40.0-44.9, adult Z68.41 [place] [address] [facility] [id number] [address] [place] [address] Jul, Dysfunction of left eustachi an tube H69.82 [place] [address] [address] [id number] [address] [place] [address] Jul, Lumbago with sciatica, unspe cified side M54.40 [facility] [id number] [place] [address] [id number] Jun, Dental examination Z01.20 [place] [address] [address] [id number] [address] [place] [address] Jun, Lumbago with sciatica, unspe cified side M54.40 and Encounter for immunization Z23 [place] [address] [facility] [id number] [address] [place] [address] Jun, Dysfunction of left eustachi an tube H69.82 [facility] [id number] [place] [id number] Jun, Dental examination Z01.20 [facility] [address] [facility] [id number] [address] [place] [address] Jun, Other chronic pain G89.29 [facility] [address] [place] [address] [id number] [address] [place] [address] [id number] Jun, Dental examination Z01.20 [place] [address] [place] [id number] [address] [place] [address] Jun, [facility] [address] [address] Jun, Bronchitis J40 ; Dysfunction of left eustachian tube H69.82 and BMI 45.0-49.9, adult Z68.42 [place] [address] [address] Jun, Lumbago with sciatica, unspe cified side M54.40 [place] [address] [address] May, Type 2 diabetes mellitus wit h diabetic neuropathy, without long- term current use of insulin E11.40 and Hypertension, benign I10 [place] [address] [address] May, Lumbago with sciatica, unspe cified side M54.40 [facility] [address] [id number] [address] [place] [address] Apr, [place] [address] [address] Apr, Controlled type 2 diabetes m ellitus without complication, without long-term current use of insulin E11.9 ; Insect bite (nonvenomous), right ankle, initial encounter S90.561A ; Local infection of the skin and subcutaneous tissue, unspecified L08.9 ; Acute swimmer''s ear of left side H60.332 and BMI 45.0-49.9, adult Z68.42 [place] [address] [id number] [address] [place] [address] Apr, Lumbago with sciatica, unspe cified side M54.40 [place] [address] [address] Mar, [place] [address] [id number] [place] [address] Mar, Lumbago with sciatica, unspe cified side M54.40 [place] [address] [id number] [address] [place] [address] Feb, Lumbago with sciatica, unspe cified side M54.40 [place] [id number] [place] [address] Feb, BMI 45.0-49.9, adult Z68.42 and Obstructive sleep apnea syndrome G47.33 [place] [id number] [place] [address] January, Lumbar neuritis M54.16 [place] [id number] [place] [address] January, Lumbago with sciatica, unspe cified side M54.40 [place] [address] [address] [id number] [place] [address] Dec, Controlled type 2 diabetes m ellitus without complication, without long-term current use of insulin E11.9 ; Erectile dysfunction due to diseases classified elsewhere N52.1 and Mood disorder F39 [place] [id number] [place] [address] Dec, Lumbago with sciatica, unspe cified side M54.40 [place] [address] [address] [id number] [place] [address] Dec, Obstructive sleep apnea synd luis G47.33 [place] [address] [address] [id number] [place] [address] Nov, Lumbago with sciatica, unspe cified side M54.40 ; Hypertension, benign I10 and Mood disorder F39 [place] [address] [id number] [place] [address] Nov, Other chronic pain G89.29 [facility] [address] [id number] [address] [place] [address] Nov, Lumbago with sciatica, unspe cified side M54.40 [facility] [address] [place] [address] [id number] [address] [place] [phone] Nov, Dental examination Z01.20 [facility] [address] [id number] [address] [place] [address] Oct, [facility] [address] [id number] [address] [place] [address] Oct, Lumbago with sciatica, unspe cified side M54.40 [facility] [address] [id number] [address] [place] [address] Oct, Lumbago with sciatica, unspe cified side M54.40 [facility] [address] [id number] [address] [place] [address] Oct, [facility] [address] [id number] [address] [place] [address] Oct, [facility] [address] [place] [id number] [address] [place] [address] [id number] Oct, Dental examination Z01.20 [facility] [address] [id number] [address] [place] [address] Oct, [facility] [address] [id number] [address] [place] [address] Oct, Pain in right knee M25.561 [facility] [address] [id number] [address] [place] [address] Sep, [facility] [address] [id number] [address] [place] [address] Sep, Other chronic pain G89.29 [facility] [address] [id number] [address] [place] [address] Sep, Lumbago with sciatica, unspe cified side M54.40 [facility] [address] [address] Sep, [facility] [address] [address] Sep, Viral URI J06.9 and BMI 45.0 -49.9, adult Z68.42 [facility] [address] [address] Aug, Foreign body hand S60.559A a nd BMI 45.0-49.9, adult Z68.42 [place] [address] [address] Aug, [place] [address] [address] Aug, Lumbago with sciatica, unspe cified side M54.40 [place] [address] [address] Aug, Vertigo R42 ; Dysfunction of both eustachian tubes H69.83 ; Low back pain M54.5 and Other chronic pain G89.29 [facility] [address] [address] Aug, Dizziness R42 and Acute bila teral otitis media H66.93 [place] [address] [address] Aug, Lumbago with sciatica, unspe cified side M54.40 [facility] [address] [place] [address] [id number] [address] [place] [address] [id number] Jul, Dental examination Z01.20 [place] [address] [address] Jul, [place] [address] [address] Jul, [facility] [address] [address] [id number] [place] [address] Jul, Dysfunction of both eustachi an tubes H69.83 [place] [address] [facility] [id number] [address] [place] [address] Jul, Controlled type 2 diabetes m ellitus without complication, without long-term current use of insulin E11.9 [place] [address] [place] [id number] [place] [address] Jul, Controlled type 2 diabetes m ellitus without complication, without long-term current use of insulin E11.9 [facility] [address] [address] Jul, Dizziness R42 and BMI 40.0-4 4.9, adult Z68.41 [place] [address] [address] Jul, Controlled type 2 diabetes m ellitus without complication, without long-term current use of insulin E11.9 [place] [address] [address] [id number] [place] [address] Jul, Lumbago with sciatica, unspe cified side M54.40 [facility] [address] [place] [address] [id number] Jul, Dental examination Z01.20 [place] [address] [place] [address] [id number] [place] [address] Jun, [facility] [address] [id number] [place] [id number] Jun, Dental examination Z01.20 [place] [address] [place] [id number] [place] [address] Jun, Controlled type 2 diabetes m ellitus without complication, without long-term current use of insulin E11.9 [place] [address] [place] [id number] [place] [address] Jun, Lumbago with sciatica, unspe cified side M54.40 [facility] [address] [id number] [address] [place] [address] [id number] May, Dental examination Z01.20 [facility] [address] [facility] [id number] [address] [place] [address] 21 May, 2017 Controlled type 2 diabetes m ellitus without complication, without long-term current use of insulin E11.9 [facility] [address] [id number] [address] [place] [address] [id number] 19 May, 2017 Dental examination Z01.20 [facility] [address] [facility] [id number] [address] [place] [id number] 18 May, 2017 Bronchitis J40 ; Dry mouth R 68.2 ; Non morbid obesity E66.9 and Controlled type 2 diabetes mellitus without complication, without long-term current use of insulin E11.9 [facility] [address] [facility] [id number] [address] [place] [address] 16 May, 2017 Encounter for immunization Z 23 [facility] [address] [facility] [id number] [address] [place] [id number] 07 May, 2017 Lumbago with sciatica, unspe cified side M54.40 [facility] [address] [facility] [id number] [address] [place] [address] 05 May, 2017 [facility] [address] [facility] [id number] [address] [place] [address] [id number] Apr, Dental examination Z01.20 [facility] [address] [facility] [id number] [address] [place] [id number] Apr, Lumbago with sciatica, unspe cified side M54.40 [facility] [address] [facility] [id number] [address] [place] [id number] Mar, Lumbago with sciatica, left side M54.42 [facility] [address] [facility] [id number] [address] [place] [address] Mar, [facility] [address] [facility] [id number] [address] [place] [address] Mar, Lumbar neuritis M54.16 [facility] [address] [facility] [id number] [address] [place] [id number] Mar, [facility] [address] [id number] [address] [place] [address] [id number] Mar, Dental examination Z01.20 [facility] [address] [facility] [id number] [address] [place] [address] Mar, MELE (obstructive sleep apnea ) G47.33 ; Neuropathy involving both lower extremities G57.93 and Frequent headaches R51 [place] [address] [facility] [id number] [address] [place] [address] Mar, Lumbago with sciatica, unspe cified side M54.40 [place] [address] [place] [id number] [place] [address] Feb, Lumbago with sciatica, unspe cified side M54.40 and Controlled type 2 diabetes mellitus without complication, without long-term current use of insulin E11.9 [place] [address] [place] [id number] [address] [place] [address] January, Hypertension, benign I10 and Bilateral low back pain with sciatica, sciatica laterality unspecified M54.40 [place] [address] [place] [id number] [place] [address] January, Hypertension, benign I10 ; L umbago with sciatica, unspecified side M54.40 ; Other chronic pain G89.29 and Controlled type 2 diabetes mellitus without complication, without long-term current use of insulin E11.9 [facility] [address] [facility] [id number] [address] [place] [address] January, Lumbar neuritis M54.16 [facility] [address] [facility] [id number] [address] [place] [id number] January, [facility] [address] [facility] [id number] [address] [place] [id number] Dec, Lumbago with sciatica, right side M54.41 and Lumbar neuritis M54.16 [place] [place] [address] [place] [id number] Dec, Lumbar neuritis M54.16 [place] [place] [address] [place] [id number] [place] [id number] Dec, Lumbar neuritis M54.16 [place] [address] [id number] Nov, Lumbar neuritis M54.16 ; Lum bago with sciatica, right side M54.41 ; Controlled type 2 diabetes mellitus without complication, without long-term current use of insulin E11.9 and Rash and nonspecific skin eruption R21 [place] [address] [id number] Nov, Lumbar neuritis M54.16 and Saida color[place] L23.7 [place] [address] [id number] Oct, Lumbar neuritis M54.16 ; Cou ghing R05 and Mood disorder F39 [place] [address] [id number] Sep, Lumbago with sciatica, right side M54.41 [place] [address] [id number] Sep, Adjustment disorder with dis turbance of emotion F43.29 and Pain management R52 [place] [id number] [place] [id number] Sep, [place] [address] [place] [id number] [place] [id number] Sep, [place] [address] [place] [id number] [place] [id number] Sep, Controlled type 2 diabetes m ellitus without complication, without long-term current use of insulin E11.9 and Lumbago with sciatica, unspecified side M54.40 [facility] [address] [id number] [address] [place] [id number] Aug, Controlled type 2 diabetes evens reyna without complication, without long-term current use of insulin E11.9 ; Pain in right knee M25.561 ; Pain in left knee M25.562 ; Other chronic pain G89.29 ; Lumbago with sciatica, right side M54.41 ; Neck pain M54.2 and Encounter for immunization Z23 [facility] [address] [id number] [address] [place] [id number] Jul, [facility] [address] [facility] [id number] [address] [place] [id number] Jul, Controlled type 2 diabetes evens reyna without complication, without long-term current use of insulin E11.9 [facility] [address] [facility] [id number] [address] [place] [phone] Jul, [facility] [address] [facility] [id number] [address] [place] [id number] Jul, [facility] [address] [facility] [id number] [address] [place] [id number] Jul, Lumbago with sciatica, left side M54.42 ; Lumbago with sciatica, right side M54.41 and Other chronic pain G89.29 [facility] [address] [facility] [id number] [address] [place] [id number] Jul, [facility] [address] [id number] [address] [place] [id number] Jul, [facility] [address] [facility] [id number] [address] [place] [id number] Jun, [facility] [address] [facility] [id number] [address] [place] [id number] Jun, Lumbago with sciatica, right side M54.41 and Other chronic pain G89.29 [facility] [address] [id number] [address] [place] [address] 13 Jun, 2016 Cervicalgia M54.2 ; Lumbago with sciatica, unspecified side M54.40 and Other chronic pain G89.29 [facility] [address] [id number] [address] [place] [id number] 15 May, 2016 Pain in right knee M25.561 ; Pain in left knee M25.562 and Other chronic pain G89.29 [facility] [address] [id number] [address] [place] [id number] 14 May, 2016 [facility] [address] [id number] [address] [place] [phone] Apr, Other chronic pain G89.29 an d Pain in right knee M25.561 [facility] [address] [id number] [address] [place] [phone] Apr, Pain in right knee M25.561 [facility] [address] [id number] [address] [place] [id number] Mar, [facility] [address] [id number] [address] [place] [id number] Mar, Mood disorder F39 and Contro lled type 2 diabetes mellitus without complication, without long-term current use of insulin E11.9 [facility] [address] [id number] [address] [place] [address] Mar, Pain in right knee M25.561 ; Pain in left knee M25.562 ; Other chronic pain G89.29 ; Obstructive sleep apnea syndrome G47.33 ; Mood disorder F39 and Controlled type 2 diabetes mellitus without complication, without long- term current use of insulin E11.9 [facility] [address] [id number] [address] [place] [id number] Mar, [facility] [address] [id number] [address] [place] [id number] Feb, Dental examination Z01.20 [facility] [address] [id number] [address] [place] [id number] Feb, [facility] [address] [id number] [address] [place] [id number] Feb, Osteoarthritis of right knee , unspecified osteoarthritis type M17.9 [facility] [address] [id number] [address] [place] [id number] January, [facility] [address] [id number] [address] [place] [id number] January, Dental examination Z01.20 [facility] [address] [id number] [address] [place] [id number] January, [facility] [address] [id number] [address] [place] [address] [id number] January, Dental examination Z01.20 an d Caries K02.9 [facility] [address] [id number] [address] [place] [id number] Dec, Encounter for other preproce dural examination Z01.818 [facility] [address] [id number] [address] [place] [id number] Dec, [facility] [address] [id number] [address] [place] [id number] Dec, Knee pain M25.569 [facility] [address] [id number] [address] [place] [id number] 15 Dec, 2015 Pain in right knee M25.561 [facility] [address] [id number] [address] [place] [id number] Dec, [facility] [address] [id number] [address] [place] [phone] Dec, [facility] [address] [id number] [address] [place] [phone] Dec, Encounter for immunization Z 23 [facility] [address] [id number] [address] [place] [id number] Dec, [facility] [address] [id number] [address] [place] [id number] Dec, [facility] [address] [id number] [address] [place] [id number] Nov, [facility] [address] [id number] [address] [place] [id number] Nov, Hypertension, benign I10 ; C ervicalgia M54.2 ; Pain in right knee M25.561 and Pain in left knee M25.562 [facility] [address] [id number] [address] [place] [id number] Oct, [facility] [address] [id number] [address] [place] [id number] Oct, [facility] [address] [id number] [address] [place] [id number] Oct, Osteoarthritis of both knees M17.0 [facility] [address] [id number] [address] [place] [id number] Oct, [facility] [address] [id number] [address] [place] [id number] Oct, Low back pain M54.5 [facility] [address] [id number] [address] [place] [id number] Oct, Low back pain M54.5 ; Sciati ca, unspecified side M54.30 ; Pain in right knee M25.561 ; Pain in left knee M25.562 ; Pain in right shoulder M25.511 and Pain in left shoulder M25.512 [facility] [address] [id number] [address] [place] [address] Oct, [facility] [address] [id number] [address] [place] [address] Sep, Pain in right hip M25.551 [facility] [address] [facility] [id number] [address] [place] [id number] Sep, Acute upper respiratory infe ction, unspecified J06.9 [facility] [address] [facility] [id number] [address] [place] [id number] Aug, Acute upper respiratory infe ction, unspecified J06.9 and Other viral agents as the cause of diseases classified elsewhere B97.89 [facility] [address] [facility] [id number] [address] [place] [id number] Jul, Arthritis M19.90 [facility] [address] [facility] [id number] [address] [place] [id number] Jun, Arthritis M19.90 ; Pain in r ight hip M25.551 ; Pain in left hip M25.552 ; Bilateral low back pain with sciatica, sciatica laterality unspecified M54.40 ; Neck pain M54.2 ; Upper back pain M54.9 and Knee pain, unspecified laterality M25.569 [facility] [address] [place] [id number] [address] [place] [address] May, Osteoarthritis of both knees 715.96 [facility] [address] [id number] [address] [place] [address] May, Rash 782.1 [facility] [address] [facility] [id number] [address] [place] [id number] Apr, Lumbar strain 847.2 [facility] [address] [facility] [id number] [address] [place] [address] Apr, Rash 782.1 [facility] [address] [facility] [id number] [address] [place] [id number] Mar, Rash 782.1 [facility] [address] [facility] [id number] [address] [place] [id number] Feb, Rash 782.1 ; Hemorrhoids 455 .6 and Constipation 564.00 [facility] [address] [facility] [id number] [address] [place] [address] Feb, Osteoarthritis of both knees 715.96 [facility] [address] [facility] [id number] [address] [place] [address], [place] [address] 15 Jan, 2015 [facility] [address] [id number] [address] [place] [address], [place] [address] 28 Dec, 2014 [facility] [address] [id number] [address] [place] [address], [place] [address] 14 Dec, 2014 [facility] [address] [id number] [address] [place] [address], [place] [address] 13 Dec, 2014 [facility] [address] [id number] [address] [place] [address], [place] [address] 18 Nov, 2014 [facility] [address] [id number] [address] [place] [address], [place] [address] 18 Nov, 2014 [facility] [address] [id number] [address] [place] [address], [place] [address] 18 Nov, 2014 [facility] [address] [id number] [address] [place] [address], [place] [address] 18 Nov, 2014 [facility] [address] [id number] [address] [place] [address], [place] [address] Nov, [facility] [address] [id number] [address] [place] [address], [place] [address] Nov, [facility] [address] [id number] [address] [place] [address], [place] [address] Oct, [facility] [address] [id number] [address] [place] [address], [place] [address] Oct, [facility] [address] [id number] [address] [place] [address], [place] [address] Oct, [facility] [address] [id number] [address] [place] [address], [place] [address] Oct, [facility] [address] [id number] [address] [place] [address], [place] [address] Oct, [facility] [address] [id number] [address] [place] [address], [place] [address] Oct, [facility] [address] [id number] [address] [place] [address], [place] [address] Oct, 2014 [facility] [address] [id number] [address] [place] [address], [place] [address] Oct, [facility] [address] [id number] [address] [place] [address], [place] [address] Oct, [facility] [address] [id number] [address] [place] [address], [place] [address] Oct, [facility] [address] [id number] [address] [place] [address], [place] [address] Oct, [facility] [address] [id number] [address] [place] [address], [place] [address] Sep, [facility] [address] [id number] [address] [place] [address], [place] [address] Sep, [facility] [address] [id number] [address] [place] [address], [place] [address] Sep, [facility] [address] [id number] [address] [place] [address], [place] [address] Sep, [facility] [address] [id number] [address] [place] [address], [place] [address] Sep, [facility] [address] [id number] [address] [place] [address], [place] [address] Sep, [facility] [address] [id number] [address] [place] [address], [place] [address] Aug, [facility] [address] [id number] [address] [place] [address], [place] [address] Aug, [facility] [address] [id number] [address] [place] [address], [place] [address] Aug, [facility] [address] [id number] [address] [place] [address], [place] [address] Aug, [facility] [address] [id number] [address] [place] [address], [place] [address] Aug, [facility] [address] [id number] [address] [place] [address], [place] [address] Aug, [facility] [address] [id number] [address] [place] [address], [place] [address] Aug, [facility] [address] [id number] [address] [place] [address], [place] [address] Aug, [facility] [address] [id number] [address] [place] [address], [place] [address] Aug, [facility] [address] [id number] [address] [place] [address], [place] [address] Aug, [facility] [address] [id number] [address] [place] [address], [place] [address] Jul, [facility] [address] [id number] [address] [place] [address], [place] [address] Jul, [facility] [address] [id number] [address] [place] [address], [place] [address] Jul, [facility] [address] [id number] [address] [place] [address], [place] [address] Jul, [facility] [address] [id number] [address] [place] [address], [place] [address] Jun, [facility] [address] [id number] [address] [place] [address], [place] [address] Jun, [facility] [address] [id number] [address] [place] [address], [place] [address] Jun, [facility] [address] [id number] [address] [place] [address], [place] [address] Jun, [facility] [address] [id number] [address] [place] [address], [place] [address] Jun, [facility] [address] [id number] [address] [place] [address], [place] [address] Jun, [facility] [address] [id number] [address] [place] [address], [place] [address] Jun, [facility] [address] [id number] [address] [place] [address], [place] [address] Jun, [facility] [address] [id number] [address] [place] [address], [place] [address] May, [facility] [address] [id number] [address] [place] [address], [place] [address] 24 May, 2014 [facility] [address] [id number] [address] [place] [address], [place] [address] May, [facility] [address] [id number] [address] [place] [address], [place] [address] May, [facility] [address] [id number] [address] [place] [address], [place] [address] 15 May, 2014 [facility] [address] [id number] [address] [place] [address], [place] [address] 15 May, 2014 [facility] [address] [id number] [address] [place] [address], [place] [address] May, [facility] [address] [id number] [address] [place] [address], [place] [address] May, [facility] [address] [id number] [address] [place] [address], [place] [address] Apr, [facility] [address] [id number] [address] [place] [address], [place] [address] Apr, [facility] [address] [id number] [address] [place] [address], [place] [address] Apr, [facility] [address] [id number] [address] [place] [address], [place] [address] Apr, [facility] [address] [id number] [address] [place] [address], [place] [address] Apr, [facility] [address] [id number] [address] [place] [address], [place] [address] Apr, [facility] [address] [id number] [address] [place] [address], [place] [address] Apr, [facility] [address] [id number] [address] [place] [address], [place] [address] Apr, [facility] [address] [id number] [address] [place] [address], [place] [address] Apr, [facility] [address] [id number] [address] [place] [address], [place] [address] Apr, [facility] [address] [id number] [address] [place] [address], [place] [address] Apr, [facility] [address] [id number] [address] [place] [address], [place] [address] Apr, [facility] [address] [id number] [address] [place] [address], [place] [address] Mar, [facility] [address] [id number] [address] [place] [address], [place] [address] Mar, [facility] [address] [id number] [address] [place] [address], [place] [address] Mar, [facility] [address] [id number] [address] [place] [address], [place] [address] Mar, [facility] [address] [id number] [address] [place] [address], [place] [address] Mar, [facility] [address] [id number] [address] [place] [address], [place] [address] Mar, [facility] [address] [id number] [address] [place] [address], [place] [address] Feb, [facility] [address] [id number] [address] [place] [address], [place] [address] Feb, [facility] [address] [id number] [address] [place] [address], [place] [address] Feb, [facility] [address] [id number] [facility] [place] [address] 17 Feb, 2014 [facility] [address] [id number] [facility] [place] [address] Feb, [facility] [address] [id number] [facility] [place] [address] Feb, [facility] [address] [id number] [facility] [place] [address] Feb, [facility] [address] [id number] [facility] [place] [address] Feb, [facility] [address] [id number] [facility] [place] [address] Feb, [facility] [address] [id number] [address] [place] [address], [place] [address] Feb, [facility] [address] [id number] [address] [place] [address], [place] [address] Feb, [facility] [address] [id number] [address] [place] [address], [place] [address] Feb, [facility] [address] [id number] [address] [place] [address], [place] [address] Feb, [facility] [address] [id number] [address] [place] [address], [place] [address] Feb, [facility] [address] [id number] [address] [place] [address], [place] [address] January, [facility] [address] [id number] [address] [place] [address], [place] [address] January, [facility] [address] [id number] [address] [place] [address], [place] [address] January, [facility] [address] [id number] [address] [place] [address], [place] [address] January, [facility] [address] [id number] [address] [place] [address], [place] [address] January, [facility] [address] [id number] [facility] [place] [address] January, [facility] [address] [id number] [facility] [place] [address] Dec, [facility] [address] [id number] [facility] [place] [address] Dec, [facility] [address] [id number] [address] [place] [address], [place] [address] Dec, [facility] [address] [id number] [facility] [place] [address] Dec, [facility] [address] [id number] [address] [place] [address], [place] [address] Dec, [facility] [address] [id number] [address] [place] [address], [place] [address] Dec, [facility] [address] [id number] [address] [place] [address], [place] [address] Dec, [facility] [address] [id number] [address] [place] [address], [place] [address] Dec, [facility] [address] [id number] [address] [place] [address], [place] [address] Nov, [facility] [address] [id number] [address] [place] [address], [place] [address] Nov, [facility] [address] [id number] [address] [place] [address], [place] [address] Nov, [facility] [address] [id number] [address] [place] [address], [place] [address] Nov, [facility] [address] [id number] [address] [place] [address], [place] [address] Nov, [facility] [address] [id number] [address] [place] [address], [place] [address] Nov, [facility] [address] [id number] [address] [place] [address], [place] [address] Nov, [facility] [address] [id number] [address] [place] [address], [place] [address] Nov, [facility] [address] [id number] [address] [place] [address], [place] [address] Oct, [facility] [address] [id number] [address] [place] [address], [place] [address] Oct, [facility] [address] [id number] [address] [place] [address], [place] [address] Oct, [facility] [address] [id number] [address] [place] [address], [place] [address] Oct, [facility] [address] [id number] [address] [place] [address], [place] [address] Oct, [facility] [address] [id number] [address] [place] [address], [place] [address] Oct, [facility] [address] [id number] [address] [place] [address], [place] [address] Oct, [facility] [address] [id number] [address] [place] [address], [place] [address] Oct, [facility] [address] [id number] [address] [place] [address], [place] [address] Oct, [facility] [address] [id number] [address] [place] [address], [place] [address] Oct, [facility] [address] [id number] [address] [place] [address], [place] [address] Sep, [facility] [address] [id number] [address] [place] [address], [place] [address] Sep, [facility] [address] [id number] [address] [place] [address], [place] [address] Sep, [facility] [address] [id number] [address] [place] [address], [place] [address] Sep, [facility] [address] [id number] [address] [place] [address], [place] [address] Sep, [facility] [address] [id number] [address] [place] [address], [place] [address] Sep, [facility] [address] [id number] [address] [place] [address], [place] [address] Aug, [facility] [address] [id number] [address] [place] [address], [place] [address] Aug, [facility] [address] [id number] [address] [place] [address], [place] [address] Aug, [facility] [address] [id number] [address] [place] [address], [place] [address] Aug, [facility] [address] [id number] [address] [place] [address], [place] [address] Aug, [facility] [address] [id number] [address] [place] [address], [place] [address] Aug, [facility] [address] [id number] [address] [place] [address], [place] [address] Aug, [facility] [address] [id number] [address] [place] [address], [place] [address] Aug, [facility] [address] [id number] [address] [place] [address], [place] [address] Jul, [facility] [address] [id number] [address] [place] [address] Jul, [facility] [address] [id number] [address] [place] [address], [place] [address] Jul, [facility] [address] [id number] [address] [place] [address], [place] [address] Jul, [facility] [address] [id number] [address] [place] [address], [place] [address] Jul, [facility] [address] [id number] [address] [place] [address], [place] [address] Jul, [facility] [address] [id number] [address] [place] [address], [place] [address] Jun, [facility] [facility] [address] [id number] [address] [place] [address], [place] [address] Jun, [facility] [address] [id number] [address] [place] [address], [place] [address] Jun, [facility] [address] [id number] [address] [place] [address], [place] [address] May, [facility] [address] [id number] [address] [place] [address], [place] [address] May, [facility] [address] [id number] [address] [place] [address], [place] [address] May, [facility] [address] [id number] [address] [place] [address], [place] [address] Apr, [facility] [address] [id number] [address] [place] [address], [place] [address] Apr, [facility] [address] [id number] [address] [place] [address], [place] [address] Apr, [facility] [address] [id number] [address] [place] [address], [place] [address] Apr, [facility] [address] [id number] [address] [place] [address], [place] [address] Mar, [facility] [address] [id number] [address] [place] [address], [place] [address] Mar, [facility] [address] [id number] [address] [place] [address], [place] [address] Mar, [facility] [address] [id number] [address] [place] [address], [place] [address] Mar, [facility] [address] [id number] [address] [place] [address], [place] [address] Feb, [facility] [address] [id number] [address] [place] [address], [place] [address] Feb, [facility] [address] [id number] [address] [place] [address], [place] [address] Feb, [facility] [address] [id number] [address] [place] [address], [place] [address] Feb, [facility] [address] [id number] [address] [place] [address], [place] [address] January, [facility] [address] [id number] [address] [place] [address], [place] [address] January, [facility] [address] [id number] [address] [place] [address], [place] [address] January, [facility] [address] [id number] [address] [place] [address], [place] [address] Nov, [facility] [address] [id number] [address] [place] [address], [place] [address] Nov, [facility] [address] [id number] [address] [place] [address], [place] [address] Oct, [facility] [address] [id number] [address] [place] [address], [place] [address] Oct, [facility] [address] [id number] [address] [place] [address], [place] [address] Oct, [facility] [address] [id number] [address] [place] [address], [place] [address] Oct, [facility] [address] [id number] [address] [place] [address], [place] [address] Sep, [facility] [address] [id number] [address] [place] [address], [place] [address] Sep, [facility] [address] [id number] [address] [place] [address], [place] [address] Sep, [facility] [address] [id number] [address] [place] [address], [place] [address] Aug, [facility] [address] [id number] [address] [place] [address], [place] [address] Aug, [facility] [address] [id number] [address] [place] [address], [place] [address] Aug, [facility] [address] [id number] [address] [place] [address], [place] [address] Aug, [facility] [address] [id number] [address] [place] [address], [place] [address] Aug, [facility] [address] [id number] [address] [place] [address], [place] [address] Aug, [facility] [address] [id number] [address] [place] [address], [place] [address] Jul, [facility] [address] [id number] [address] [place] [address], [place] [address] Jul, [facility] [address] [id number] [address] [place] [address], [place] [address] Jun, [facility] [address] [id number] [address] [place] [address], [place] [address] Jun, [facility] [address] [id number] [address] [place] [address], [place] [address] Jun, [facility] [address] [id number] [address] [place] [address], [place] [address] Apr, [facility] [address] [id number] [address] [place] [address], [place] [address] Apr, [facility] [address] [id number] [address] [place] [address], [place] [address] Mar, [facility] [address] [id number] [address] [place] [address], [place] [address] Mar, [facility] [address] [id number] [address] [place] [address], [place] [address] Mar, [facility] [address] [id number] [address] [place] [address], [place] [address] Mar, [facility] [address] [id number] [address] [place] [address], [place] [address] Feb, [facility] [address] [id number] [address] [place] [address], [place] [address] Feb, [facility] [address] [id number] [address] [place] [address], [place] [address] Feb, [facility] [address] [id number] [address] [place] [address], [place] [address] January, [facility] [address] [id number] [address] [place] [address], [place] [address] January, [facility] [address] [id number] [address] [place] [address], [place] [address] January, [facility] [address] [id number] [address] [place] [address], [place] [address] January, [facility] [address] [id number] [address] [place] [address], [place] [address] Dec, [facility] [address] [id number] [address] [place] [address], [place] [address] Dec, [facility] [address] [id number] [address] [place] [address], [place] [address] Nov, [facility] [address] [id number] [address] [place] [address], [place] [address] Nov, [facility] [address] [id number] [address] [place] [address], [place] [address] 16 Oct, 2011 [facility] [address] [id number] [address] [place] [address], [place] [address] 15 Oct, 2011 [facility] [address] [id number] [address] [place] [address], [place] [address] Sep, [facility] [address] [id number] [address] [place] [address], [place] [address] Sep, [facility] [address] [id number] [address] [place] [address], [place] [address] Sep, [facility] [address] [id number] [address] [place] [address], [place] [address] Sep, [facility] [address] [id number] [address] [place] [address], [place] [address] Aug, [facility] [address] [id number] [address] [place] [address], [place] [address] Aug, [facility] [address] [id number] [address] [place] [address], [place] [address] Aug, [facility] [address] [id number] [address] [place] [address], [place] [address] Jul, [facility] [address] [id number] [address] [place] [address], [place] [address] Aug, [facility] [address] [id number] [address] [place] [address], [place] [address] Aug, [facility] [address] [id number] [address] [place] [address], [place] [address] Aug, [facility] [address] [id number] [address] [place] [address], [place] [address] Aug, [facility] [address] [id number] [address] [place] [address], [place] [address] Jul, [facility] [address] [id number] [address] [place] [address] Jul, [facility] [address] [id number] [address] [place] [address], [place] [address] Jul, [facility] [address] [id number] [address] [place] [address], [place] [address] Jun, [facility] [address] [id number] [address] [place] [address], [place] [address] Jun, [facility] [address] [id number] [address] [place] [id number] Jun, [facility] [address] [facility] [id number] [address] [place] [address] Apr, [facility] [address] [facility] [id number] [address] [place] [id number] Mar, IMMUNIZATIONS No Known Immunizations SOCIAL HISTORY [...]
--- OUTSIDE RECORDS SUMMARY | 2020-03-18 15:22 | XMS REPORT ---
Author Author [place] WAYNE Organization [facility] Address [address] [place] [address] Care Team Providers Care Telegraph Office Telephone Clerk Name Role Phone REYNA WAYNE Unavailable PROBLEMS Type Condition ICD9-CM Code NEG39-FS Code Onset Dates Condition S tatus SNOMED Code Problem Hypertension, benign I10 Active 59924349 Problem Other chronic pain G89.29 Active 8 7315624 Problem Lumbago with sciatica, unspecified side M54.40 Active 950255734 Problem Controlled type 2 diabetes m ellitus without complication, without long- term current use of insulin E11.9 Active 254488933 Problem Lumbago with sciatica, right side M54.41 Active 051723737 Problem Adjustment disorder with disturbance of emotion F4 3.29 Active 54374290 Problem MELE (obstructive sleep apnea) G47.33 Active 75040496 Problem Non morbid obesity E66.9 Active 4 80182259 Problem Hammer toe of left foot M20.42 Active 430774183 Problem Mood disorder F39 Active 359779 05 Problem Deformity of left foot M21.962 Active 210787283 Problem Lumbago with sciatica, left side M54.42 Active 557807386 Problem Erectile dysfunction due to diseases classified elsewhere N52.1 Active 676333910 Problem Obstructive sleep apnea syndrome G47.33 Active 63883922 Problem Type 2 diabetes mellitus wit h diabetic neuropathy, without long-term current use of insulin E11.40 Active 76930 006 Problem Essential hypertension I10 Active 79639127 ALLERGIES No Information ENCOUNTERS Encounter Location Date Diagnosis [facility] [address] [id number] [address] [place] [address] May, Lumbago with sciatica, unspe cified side M54.40 [facility] [address] [facility] [id number] [address] [place] [address] May, [facility] [address] [address] May, Type 2 diabetes mellitus wit h diabetic neuropathy, without long- term current use of insulin E11.40 and Hammer toe of left foot M20.42 [place] [address] [address] May, [facility] [address] [address] May, [place] [address] [address] May, [place] [address] [address] Apr, Lumbago with sciatica, unspe cified side M54.40 [place] [address] [address] Apr, [place] [address] [address] Apr, [address] [address] Apr, Hammer toe of left foot M20.42 ; Chest p ain R07.9 ; Preoperative examination Z01.818 and Morbid obesity E66.01 [place] [address] [address] Apr, Morbid obesity E66.01 ; Bron chitis J40 and High risk medications (not anticoagulants) long-term use Z79.899 [place] [address] [address] Apr, Lumbago with sciatica, unspe cified side M54.40 [place] [address] [address] Apr, [place] [address] [address] Mar, Lumbar neuritis M54.16 and M orbid obesity E66.01 [facility] [address] [id number] [address] [place] [address] Mar, [facility] [address] [id number] [address] [place] [address] Mar, [facility] [address] [facility] [id number] [address] [place] [address] Mar, Lumbago with sciatica, unspe cified side M54.40 [facility] [address] [id number] [address] [place] [address] Mar, Morbid obesity E66.01 ; Coug marco R05 ; 2+ pitting edema R60.9 and Controlled type 2 diabetes mellitus without complication, without long-term current use of insulin E11.9 [place] [address] [id number] [address] [place] [address] Feb, [facility] [address] [id number] [address] [place] [id number] Feb, Lumbago with sciatica, unspe cified side M54.40 [facility] [address] [id number] [address] [place] [address] Feb, [facility] [address] [id number] [address] [place] [address] Feb, Controlled type 2 diabetes m ellitus without complication, without long-term current use of insulin E11.9 and Morbid obesity E66.01 [facility] [address] [id number] [address] [place] [address] January, Deformity of left foot M21.9 62 [facility] [address] [id number] [address] [place] [address] January, [facility] [address] [id number] [address] [place] [address] January, Lumbago with sciatica, unspe cified side M54.40 [facility] [address] [id number] [address] [place] [address] January, [facility] [address] [facility] [id number] [address] [place] [address] January, Lumbago with sciatica, unspe cified side M54.40 [facility] [address] [facility] [id number] [address] [place] [address] January, [facility] [address] [id number] [address] [place] [address] January, Acute right-sided thoracic b ack pain M54.6 [facility] [id number] [place] [address] January, Acute right-sided thoracic b ack pain M54.6 [facility] [address] [id number] [address] [place] [address] January, Chest pain, unspecified type R07.9 ; Morbid obesity E66.01 and Scabies B86 [facility] [address] [id number] [address] [place] [address] Dec, Lumbago with sciatica, unspe cified side M54.40 [facility] [address] [id number] [address] [place] [address] Dec, Toenail fungus B35.1 [place] [address] [place] [place] [id number] [place] [address] Dec, Toenail fungus B35.1 [facility] [address] [id number] [address] [place] [address] Dec, Acute right-sided thoracic b ack pain M54.6 [facility] [address] [facility] [id number] [address] [place] [address] Dec, Lumbago with sciatica, unspe cified side M54.40 [facility] [address] [facility] [id number] [address] [place] [address] Nov, Hammer toe of left foot M20. 42 ; Deformity of left foot M21.962 and Type 2 diabetes mellitus with diabetic neuropathy, without long-term current use of insulin E11.40 [facility] [address] [address] Nov, Acute right-sided thoracic b ack pain M54.6 ; Morbid obesity E66.01 and Rt flank pain R10.9 [place] [address] [address] Nov, Lumbago with sciatica, unspe cified side M54.40 [place] [address] [address] Oct, Lumbago with sciatica, unspe cified side M54.40 [facility] [address] [address] Sep, Lumbago with sciatica, unspe cified side M54.40 [facility] [address] [address] Sep, [place] [address] [address] Sep, BMI 40.0-44.9, adult Z68.41 ; Lumbago with sciatica, left side M54.42 ; Lumbago with sciatica, right side M54.41 and Other chronic pain G89.29 [facility] [address] [address] Aug, Lumbago with sciatica, unspe cified side M54.40 [place] [address] [address] Aug, Type 2 diabetes mellitus wit h diabetic neuropathy, without long- term current use of insulin E11.40 ; Hammer toe of left foot M20.42 ; Hypertension, benign I10 and Frequent headaches R51 [facility] [address] [address] Jul, Lumbago with sciatica, unspe cified side M54.40 [place] [address] [facility] [id number] [address] [place] [address] Jul, [place] [address] [facility] [id number] [address] [place] [address] Jul, Essential hypertension I10 a nd Controlled type 2 diabetes mellitus without complication, without long-term current use of insulin E11.9 [place] [address] [facility] [id number] [address] [place] [address] Jul, Essential hypertension I10 ; Controlled type 2 diabetes mellitus without complication, without long-term current use of insulin E11.9 and BMI 40.0-44.9, adult Z68.41 [place] [address] [facility] [id number] [address] [place] [address] Jul, Dysfunction of left eustachi an tube H69.82 [place] [address] [place] [id number] [place] [address] Jul, Lumbago with sciatica, unspe cified side M54.40 [facility] [address] [place] [id number] Jun, Dental examination Z01.20 [place] [address] [place] [id number] [place] [address] Jun, Lumbago with sciatica, unspe cified side M54.40 and Encounter for immunization Z23 [place] [address] [facility] [id number] [address] [place] [address] Jun, Dysfunction of left eustachi an tube H69.82 [facility] [id number] [place] [id number] Jun, Dental examination Z01.20 [facility] [address] [facility] [id number] [address] [place] [address] Jun, Other chronic pain G89.29 [facility] [address] [place] [id number] [place] [address] [id number] Jun, Dental examination Z01.20 [place] [address] [place] [id number] [address] [place] [address] Jun, [facility] [address] [address] Jun, Bronchitis J40 ; Dysfunction of left eustachian tube H69.82 and BMI 45.0-49.9, adult Z68.42 [place] [address] [address] Jun, Lumbago with sciatica, unspe cified side M54.40 [place] [address] [address] May, Type 2 diabetes mellitus wit h diabetic neuropathy, without long- term current use of insulin E11.40 and Hypertension, benign I10 [place] [address] [address] May, Lumbago with sciatica, unspe cified side M54.40 [facility] [address] [id number] [address] [place] [address] Apr, [place] [address] [address] Apr, Controlled type 2 diabetes m ellitus without complication, without long-term current use of insulin E11.9 ; Insect bite (nonvenomous), right ankle, initial encounter S90.561A ; Local infection of the skin and subcutaneous tissue, unspecified L08.9 ; Acute swimmer''s ear of left side H60.332 and BMI 45.0-49.9, adult Z68.42 [place] [address] [place] [id number] [address] [place] [address] Apr, Lumbago with sciatica, unspe cified side M54.40 [place] [address] [address] Mar, [place] [address] [place] [id number] [place] [address] Mar, Lumbago with sciatica, unspe cified side M54.40 [place] [address] [place] [id number] [place] [address] Feb, Lumbago with sciatica, unspe cified side M54.40 [place] [address] [place] [id number] [place] [address] Feb, BMI 45.0-49.9, adult Z68.42 and Obstructive sleep apnea syndrome G47.33 [place] [address] [place] [id number] [place] [address] January, Lumbar neuritis M54.16 [place] [address] [place] [id number] [place] [address] January, Lumbago with sciatica, unspe cified side M54.40 [place] [address] [place] [id number] [place] [address] Dec, Controlled type 2 diabetes m ellitus without complication, without long-term current use of insulin E11.9 ; Erectile dysfunction due to diseases classified elsewhere N52.1 and Mood disorder F39 [place] [address] [place] [id number] [place] [address] Dec, Lumbago with sciatica, unspe cified side M54.40 [place] [address] [place] [id number] [place] [address] Dec, Obstructive sleep apnea synd luis G47.33 [place] [address] [place] [id number] [place] [address] Nov, Lumbago with sciatica, unspe cified side M54.40 ; Hypertension, benign I10 and Mood disorder F39 [place] [address] [place] [id number] [place] [address] Nov, Other chronic pain G89.29 [facility] [address] [id number] [address] [place] [address] Nov, Lumbago with sciatica, unspe cified side M54.40 [facility] [address] [id number] [address] [place] [address] [id number] Nov, Dental examination Z01.20 [facility] [address] [id number] [address] [place] [address] Oct, [facility] [address] [id number] [address] [place] [address] Oct, Lumbago with sciatica, unspe cified side M54.40 [facility] [address] [id number] [address] [place] [address] Oct, Lumbago with sciatica, unspe cified side M54.40 [facility] [address] [id number] [address] [place] [address] Oct, [facility] [address] [id number] [address] [place] [address] Oct, [facility] [address] [id number] [address] [place] [id number] Oct, Dental examination Z01.20 [facility] [address] [id number] [address] [place] [address] Oct, [facility] [address] [id number] [address] [place] [address] Oct, Pain in right knee M25.561 [facility] [address] [id number] [address] [place] [address] Sep, [facility] [address] [id number] [address] [place] [address] Sep, Other chronic pain G89.29 [facility] [address] [id number] [address] [place] [address] Sep, Lumbago with sciatica, unspe cified side M54.40 [facility] [address] [address] Sep, [facility] [address] [address] Sep, Viral URI J06.9 and BMI 45.0 -49.9, adult Z68.42 [facility] [address] [address] Aug, Foreign body hand S60.559A a nd BMI 45.0-49.9, adult Z68.42 [place] [address] [address] Aug, [place] [address] [address] Aug, Lumbago with sciatica, unspe cified side M54.40 [place] [address] [address] Aug, Vertigo R42 ; Dysfunction of both eustachian tubes H69.83 ; Low back pain M54.5 and Other chronic pain G89.29 [facility] [address] [address] Aug, Dizziness R42 and Acute bila teral otitis media H66.93 [place] [address] [address] Aug, Lumbago with sciatica, unspe cified side M54.40 [facility] [address] [place] [id number] [address] [place] [address] [id number] Jul, Dental examination Z01.20 [place] [address] [address] Jul, [place] [address] [address] Jul, [facility] [address] [place] [id number] [place] [address] Jul, Dysfunction of both eustachi an tubes H69.83 [place] [address] [facility] [id number] [address] [place] [address] Jul, Controlled type 2 diabetes m ellitus without complication, without long-term current use of insulin E11.9 [place] [address] [place] [id number] [place] [address] Jul, Controlled type 2 diabetes m ellitus without complication, without long-term current use of insulin E11.9 [facility] [address] [address] Jul, Dizziness R42 and BMI 40.0-4 4.9, adult Z68.41 [place] [address] [address] Jul, Controlled type 2 diabetes m ellitus without complication, without long-term current use of insulin E11.9 [place] [address] [place] [id number] [place] [address] Jul, Lumbago with sciatica, unspe cified side M54.40 [facility] [address] [place] [address] [id number] Jul, Dental examination Z01.20 [place] [address] [place] [id number] [place] [address] Jun, [facility] [id number] [place] [address] [id number] Jun, Dental examination Z01.20 [place] [address] [place] [id number] [place] [address] Jun, Controlled type 2 diabetes m ellitus without complication, without long-term current use of insulin E11.9 [place] [address] [place] [id number] [place] [address] Jun, Lumbago with sciatica, unspe cified side M54.40 [facility] [address] [id number] [address] [place] [id number] May, Dental examination Z01.20 [facility] [address] [facility] [id number] [address] [place] [address] 21 May, 2017 Controlled type 2 diabetes m ellitus without complication, without long-term current use of insulin E11.9 [facility] [address] [id number] [address] [place] [address] [id number] 19 May, 2017 Dental examination Z01.20 [facility] [address] [facility] [id number] [address] [place] [address] 18 May, 2017 Bronchitis J40 ; Dry mouth R 68.2 ; Non morbid obesity E66.9 and Controlled type 2 diabetes mellitus without complication, without long-term current use of insulin E11.9 [facility] [address] [facility] [id number] [address] [place] [address] 16 May, 2017 Encounter for immunization Z 23 [facility] [address] [facility] [id number] [address] [place] [address] 07 May, 2017 Lumbago with sciatica, unspe cified side M54.40 [facility] [address] [facility] [id number] [address] [place] [id number] 05 May, 2017 [facility] [address] [facility] [id number] [address] [place] [address] [id number] Apr, Dental examination Z01.20 [facility] [address] [facility] [id number] [address] [place] [address] Apr, Lumbago with sciatica, unspe cified side M54.40 [facility] [address] [facility] [id number] [address] [place] [address] Mar, Lumbago with sciatica, left side M54.42 [facility] [address] [facility] [id number] [address] [place] [address] Mar, [facility] [address] [facility] [id number] [address] [place] [address] Mar, Lumbar neuritis M54.16 [facility] [address] [facility] [id number] [address] [place] [address] Mar, [facility] [address] [id number] [address] [place] [address] [id number] Mar, Dental examination Z01.20 [facility] [address] [facility] [id number] [address] [place] [address] Mar, MELE (obstructive sleep apnea ) G47.33 ; Neuropathy involving both lower extremities G57.93 and Frequent headaches R51 [place] [address] [facility] [id number] [address] [place] [address] Mar, Lumbago with sciatica, unspe cified side M54.40 [place] [address] [place] [id number] [place] [address] Feb, Lumbago with sciatica, unspe cified side M54.40 and Controlled type 2 diabetes mellitus without complication, without long-term current use of insulin E11.9 [place] [address] [place] [id number] [address] [place] [address] January, Hypertension, benign I10 and Bilateral low back pain with sciatica, sciatica laterality unspecified M54.40 [place] [address] [place] [id number] [address] [place] [address] January, Hypertension, benign I10 ; L umbago with sciatica, unspecified side M54.40 ; Other chronic pain G89.29 and Controlled type 2 diabetes mellitus without complication, without long-term current use of insulin E11.9 [facility] [address] [facility] [id number] [address] [place] [address] January, Lumbar neuritis M54.16 [facility] [address] [facility] [id number] [address] [place] [phone] January, [facility] [address] [facility] [id number] [address] [place] [address] Dec, Lumbago with sciatica, right side M54.41 and Lumbar neuritis M54.16 [place] [address] [place] [id number] Dec, Lumbar neuritis M54.16 [place] [address] [place] [id number] [place] [id number] Dec, Lumbar neuritis M54.16 [place] [address] [id number] Nov, Lumbar neuritis M54.16 ; Lum bago with sciatica, right side M54.41 ; Controlled type 2 diabetes mellitus without complication, without long-term current use of insulin E11.9 and Rash and nonspecific skin eruption R21 [place] [address] [id number] Nov, Lumbar neuritis M54.16 and Saida [place] L23.7 [place] [address] [address] Oct, Lumbar neuritis M54.16 ; Cou ghing R05 and Mood disorder F39 [place] [address] [id number] Sep, Lumbago with sciatica, right side M54.41 [place] [address] [id number] Sep, Adjustment disorder with dis turbance of emotion F43.29 and Pain management R52 [place] [id number] [place] [phone] Sep, [place] [address] [place] [id number] [place] [id number] Sep, [place] [address] [place] [id number] [place] [id number] Sep, Controlled type 2 diabetes m ellitus without complication, without long-term current use of insulin E11.9 and Lumbago with sciatica, unspecified side M54.40 [facility] [address] [id number] [address] [place] [id number] Aug, Controlled type 2 diabetes evens reyna without complication, without long-term current use of insulin E11.9 ; Pain in right knee M25.561 ; Pain in left knee M25.562 ; Other chronic pain G89.29 ; Lumbago with sciatica, right side M54.41 ; Neck pain M54.2 and Encounter for immunization Z23 [facility] [address] [id number] [address] [place] [address] Jul, [facility] [address] [facility] [id number] [address] [place] [address] Jul, Controlled type 2 diabetes evens reyna without complication, without long-term current use of insulin E11.9 [facility] [address] [facility] [id number] [address] [place] [address] Jul, [facility] [address] [facility] [id number] [address] [place] [address] Jul, [facility] [address] [facility] [id number] [address] [place] [address] Jul, Lumbago with sciatica, left side M54.42 ; Lumbago with sciatica, right side M54.41 and Other chronic pain G89.29 [facility] [address] [facility] [id number] [address] [place] [address] Jul, [facility] [address] [id number] [address] [place] [address] Jul, [facility] [address] [facility] [id number] [address] [place] [address] Jun, [facility] [address] [facility] [id number] [address] [place] [address] Jun, Lumbago with sciatica, right side M54.41 and Other chronic pain G89.29 [facility] [address] [id number] [address] [place] [id number] 13 Jun, 2016 Cervicalgia M54.2 ; Lumbago with sciatica, unspecified side M54.40 and Other chronic pain G89.29 [facility] [address] [id number] [address] [place] [address] 15 May, 2016 Pain in right knee M25.561 ; Pain in left knee M25.562 and Other chronic pain G89.29 [facility] [address] [id number] [address] [place] [address] 14 May, 2016 [facility] [address] [id number] [address] [place] [address] Apr, Other chronic pain G89.29 an d Pain in right knee M25.561 [facility] [address] [id number] [address] [place] [address] Apr, Pain in right knee M25.561 [facility] [address] [id number] [address] [place] [address] Mar, [facility] [address] [id number] [address] [place] [address] Mar, Mood disorder F39 and Contro lled type 2 diabetes mellitus without complication, without long-term current use of insulin E11.9 [facility] [address] [id number] [address] [place] [address] Mar, Pain in right knee M25.561 ; Pain in left knee M25.562 ; Other chronic pain G89.29 ; Obstructive sleep apnea syndrome G47.33 ; Mood disorder F39 and Controlled type 2 diabetes mellitus without complication, without long- term current use of insulin E11.9 [facility] [address] [id number] [address] [place] [phone] Mar, [facility] [address] [id number] [address] [place] [id number] Feb, Dental examination Z01.20 [facility] [address] [id number] [address] [place] [id number] Feb, [facility] [address] [id number] [address] [place] [address] Feb, Osteoarthritis of right knee , unspecified osteoarthritis type M17.9 [facility] [address] [id number] [address] [place] [address] January, [facility] [address] [id number] [address] [place] [id number] January, Dental examination Z01.20 [facility] [address] [id number] [address] [place] [address] January, [facility] [address] [id number] [address] [place] [address] [id number] January, Dental examination Z01.20 an d Caries K02.9 [facility] [address] [id number] [address] [place] [address] Dec, Encounter for other preproce dural examination Z01.818 [facility] [address] [id number] [address] [place] [address] Dec, [facility] [address] [id number] [address] [place] [address] Dec, Knee pain M25.569 [facility] [address] [id number] [address] [place] [id number] 15 Dec, 2015 Pain in right knee M25.561 [facility] [address] [id number] [address] [place] [address] Dec, [facility] [address] [id number] [address] [place] [id number] Dec, [facility] [address] [id number] [address] [place] [address] Dec, Encounter for immunization Z 23 [facility] [address] [id number] [address] [place] [address] Dec, [facility] [address] [id number] [address] [place] [phone] Dec, [facility] [address] [id number] [address] [place] [address] Nov, [facility] [address] [id number] [address] [place] [address] Nov, Hypertension, benign I10 ; C ervicalgia M54.2 ; Pain in right knee M25.561 and Pain in left knee M25.562 [facility] [address] [id number] [address] [place] [phone] Oct, [facility] [address] [id number] [address] [place] [phone] Oct, [facility] [address] [id number] [address] [place] [address] Oct, Osteoarthritis of both knees M17.0 [facility] [address] [id number] [address] [place] [phone] Oct, [facility] [address] [id number] [address] [place] [phone] Oct, Low back pain M54.5 [facility] [address] [id number] [address] [place] [address] Oct, Low back pain M54.5 ; Sciati ca, unspecified side M54.30 ; Pain in right knee M25.561 ; Pain in left knee M25.562 ; Pain in right shoulder M25.511 and Pain in left shoulder M25.512 [facility] [address] [id number] [address] [place] [address] Oct, [facility] [address] [id number] [address] [place] [address] Sep, Pain in right hip M25.551 [facility] [address] [facility] [id number] [address] [place] [address] Sep, Acute upper respiratory infe ction, unspecified J06.9 [facility] [address] [facility] [id number] [address] [place] [address] Aug, Acute upper respiratory infe ction, unspecified J06.9 and Other viral agents as the cause of diseases classified elsewhere B97.89 [facility] [address] [facility] [id number] [address] [place] [address] Jul, Arthritis M19.90 [facility] [address] [facility] [id number] [address] [place] [address] Jun, Arthritis M19.90 ; Pain in r ight hip M25.551 ; Pain in left hip M25.552 ; Bilateral low back pain with sciatica, sciatica laterality unspecified M54.40 ; Neck pain M54.2 ; Upper back pain M54.9 and Knee pain, unspecified laterality M25.569 [place] [place] [address] [place] [id number] [address] [place] [address] May, Osteoarthritis of both knees 715.96 [place] [place] [address] [id number] [address] [place] [address] May, Rash 782.1 [place] [place] [address] [facility] [id number] [address] [place] [address] Apr, Lumbar strain 847.2 [facility] [address] [facility] [id number] [address] [place] [address] Apr, Rash 782.1 [place] [address] [facility] [id number] [address] [place] [address] Mar, Rash 782.1 [place] [place] [address] [facility] [id number] [address] [place] [address] Feb, Rash 782.1 ; Hemorrhoids 455 .6 and Constipation 564.00 [place] [place] [address] [facility] [id number] [address] [place] [address] Feb, Osteoarthritis of both knees 715.96 [place] [address] [facility] [id number] [address] [place] [address], [place] [address] 15 Jan, 2015 [facility] [address] [id number] [address] [place] [address], [place] [address] 28 Dec, 2014 [facility] [address] [id number] [address] [place] [address], [place] [address] 14 Dec, 2014 [facility] [address] [id number] [address] [place] [address], [place] [address] 13 Dec, 2014 [facility] [address] [id number] [address] [place] [address], [place] [address] 18 Nov, 2014 [facility] [address] [id number] [address] [place] [address], [place] [address] 18 Nov, 2014 [facility] [address] [id number] [address] [place] [address], [place] [address] 18 Nov, 2014 [facility] [address] [id number] [address] [place] [address], [place] [address] 18 Nov, 2014 [facility] [address] [id number] [address] [place] [address], [place] [address] Nov, [facility] [address] [id number] [address] [place] [address], [place] [address] Nov, [facility] [address] [id number] [address] [place] [address], [place] [address] Oct, [facility] [address] [id number] [address] [place] [address], [place] [address] Oct, [facility] [address] [id number] [address] [place] [address], [place] [address] Oct, [facility] [address] [id number] [address] [place] [address], [place] [address] Oct, [facility] [address] [id number] [address] [place] [address], [place] [address] Oct, [facility] [address] [id number] [address] [place] [address], [place] [address] Oct, [facility] [address] [id number] [address] [place] [address], [place] [address] Oct, 2014 [facility] [address] [id number] [address] [place] [address], [place] [address] Oct, [facility] [address] [id number] [address] [place] [address], [place] [address] Oct, [facility] [address] [id number] [address] [place] [address], [place] [address] Oct, [facility] [address] [id number] [address] [place] [address], [place] [address] Oct, [facility] [address] [id number] [address] [place] [address], [place] [address] Sep, [facility] [address] [id number] [address] [place] [address], [place] [address] Sep, [facility] [address] [id number] [address] [place] [address], [place] [address] Sep, [facility] [address] [id number] [address] [place] [address], [place] [address] Sep, [facility] [address] [id number] [address] [place] [address], [place] [address] Sep, [facility] [address] [id number] [address] [place] [address], [place] [address] Sep, [facility] [address] [id number] [address] [place] [address], [place] [address] Aug, [facility] [address] [id number] [address] [place] [address], [place] [address] Aug, [facility] [address] [id number] [address] [place] [address], [place] [address] Aug, [facility] [address] [id number] [address] [place] [address], [place] [address] Aug, [facility] [address] [id number] [address] [place] [address], [place] [address] Aug, [facility] [address] [id number] [address] [place] [address], [place] [address] Aug, [facility] [address] [id number] [address] [place] [address], [place] [address] Aug, [facility] [address] [id number] [address] [place] [address], [place] [address] Aug, [facility] [address] [id number] [address] [place] [address], [place] [address] Aug, [facility] [address] [id number] [address] [place] [address], [place] [address] Aug, [facility] [address] [id number] [address] [place] [address], [place] [address] Jul, [facility] [address] [id number] [address] [place] [address], [place] [address] Jul, [facility] [address] [id number] [address] [place] [address], [place] [address] Jul, [facility] [address] [id number] [address] [place] [address], [place] [address] Jul, [facility] [address] [id number] [address] [place] [address], [place] [address] Jun, [facility] [address] [id number] [address] [place] [address], [place] [address] Jun, [facility] [address] [id number] [address] [place] [address], [place] [address] Jun, [facility] [address] [id number] [address] [place] [address], [place] [address] Jun, [facility] [address] [id number] [address] [place] [address], [place] [address] Jun, [facility] [address] [id number] [address] [place] [address], [place] [address] Jun, [facility] [address] [id number] [address] [place] [address], [place] [address] Jun, [facility] [address] [id number] [address] [place] [address], [place] [address] Jun, [facility] [address] [id number] [address] [place] [address], [place] [address] May, [facility] [address] [id number] [address] [place] [address], [place] [address] 24 May, 2014 [facility] [address] [id number] [address] [place] [address], [place] [address] May, [facility] [address] [id number] [address] [place] [address], [place] [address] May, [facility] [address] [id number] [address] [place] [address], [place] [address] 15 May, 2014 [facility] [address] [id number] [address] [place] [address], [place] [address] 15 May, 2014 [facility] [address] [id number] [address] [place] [address], [place] [address] May, [facility] [address] [id number] [address] [place] [address], [place] [address] May, [facility] [address] [id number] [address] [place] [address], [place] [address] Apr, [facility] [address] [id number] [address] [place] [address], [place] [address] Apr, [facility] [address] [id number] [address] [place] [address], [place] [address] Apr, [facility] [address] [id number] [address] [place] [address], [place] [address] Apr, [facility] [address] [id number] [address] [place] [address], [place] [address] Apr, [facility] [address] [id number] [address] [place] [address], [place] [address] Apr, [facility] [address] [id number] [address] [place] [address], [place] [address] Apr, [facility] [address] [id number] [address] [place] [address], [place] [address] Apr, [facility] [address] [id number] [address] [place] [address], [place] [address] Apr, [facility] [address] [id number] [address] [place] [address], [place] [address] Apr, [facility] [address] [id number] [address] [place] [address], [place] [address] Apr, [facility] [address] [id number] [address] [place] [address], [place] [address] Apr, [facility] [address] [id number] [address] [place] [address], [place] [address] Mar, [facility] [address] [id number] [address] [place] [address], [place] [address] Mar, [facility] [address] [id number] [address] [place] [address], [place] [address] Mar, [facility] [address] [id number] [address] [place] [address], [place] [address] Mar, [facility] [address] [id number] [address] [place] [address], [place] [address] Mar, [facility] [address] [id number] [address] [place] [address], [place] [address] Mar, [facility] [address] [id number] [address] [place] [address], [place] [address] Feb, [facility] [address] [id number] [address] [place] [address], [place] [address] Feb, [facility] [address] [id number] [address] [place] [address], [place] [address] Feb, [facility] [address] [id number] [facility] [place] [address] 17 Feb, 2014 [facility] [address] [id number] [facility] [place] [address] Feb, [facility] [address] [id number] [facility] [place] [address] Feb, [facility] [address] [id number] [facility] [place] [address] Feb, [facility] [address] [id number] [facility] [place] [address] Feb, [facility] [address] [id number] [facility] [place] [address] Feb, [facility] [address] [id number] [address] [place] [address], [place] [address] Feb, [facility] [address] [id number] [address] [place] [address], [place] [address] Feb, [facility] [address] [id number] [address] [place] [address], [place] [address] Feb, [facility] [address] [id number] [address] [place] [address], [place] [address] Feb, [facility] [address] [id number] [address] [place] [address], [place] [address] Feb, [facility] [address] [id number] [address] [place] [address], [place] [address] January, [facility] [address] [id number] [address] [place] [address], [place] [address] January, [facility] [address] [id number] [address] [place] [address], [place] [address] January, [facility] [address] [id number] [address] [place] [address], [place] [address] January, [facility] [address] [id number] [address] [place] [address], [place] [address] January, [facility] [address] [id number] [facility] [place] [address] January, [facility] [address] [id number] [facility] [place] [address] Dec, [facility] [address] [id number] [facility] [place] [address] Dec, [facility] [address] [id number] [address] [place] [address], [place] [address] Dec, [facility] [address] [id number] [facility] [place] [address] Dec, [facility] [address] [id number] [address] [place] [address], [place] [address] Dec, [facility] [address] [id number] [address] [place] [address], [place] [address] Dec, [facility] [address] [id number] [address] [place] [address], [place] [address] Dec, [facility] [address] [id number] [address] [place] [address], [place] [address] Dec, [facility] [address] [id number] [address] [place] [address], [place] [address] Nov, [facility] [address] [id number] [address] [place] [address], [place] [address] Nov, [facility] [address] [id number] [address] [place] [address], [place] [address] Nov, [facility] [address] [id number] [address] [place] [address], [place] [address] Nov, [facility] [address] [id number] [address] [place] [address], [place] [address] Nov, [facility] [address] [id number] [address] [place] [address], [place] [address] Nov, [facility] [address] [id number] [address] [place] [address], [place] [address] Nov, [facility] [address] [id number] [address] [place] [address], [place] [address] Nov, [facility] [address] [id number] [address] [place] [address], [place] [address] Oct, [facility] [address] [id number] [address] [place] [address], [place] [address] Oct, [facility] [address] [id number] [address] [place] [address], [place] [address] Oct, [facility] [address] [id number] [address] [place] [address], [place] [address] Oct, [facility] [address] [id number] [address] [place] [address], [place] [address] Oct, [facility] [address] [id number] [address] [place] [address], [place] [address] Oct, [facility] [address] [id number] [address] [place] [address], [place] [id number] Oct, [facility] [address] [id number] [address] [place] [address], [place] [address] Oct, [facility] [address] [id number] [address] [place] [address], [place] [address] Oct, [facility] [address] [id number] [address] [place] [address], [place] [address] Oct, [facility] [address] [id number] [address] [place] [address], [place] [address] Sep, [facility] [address] [id number] [address] [place] [address], [place] [address] Sep, [facility] [address] [id number] [address] [place] [address], [place] [address] Sep, [facility] [address] [id number] [address] [place] [address], [place] [address] Sep, [facility] [address] [id number] [address] [place] [address], [place] [address] Sep, [facility] [address] [id number] [address] [place] [address], [place] [address] Sep, [facility] [address] [id number] [address] [place] [address], [place] [address] Aug, [facility] [address] [id number] [address] [place] [address], [place] [address] Aug, [facility] [address] [id number] [address] [place] [address], [place] [address] Aug, [facility] [address] [id number] [address] [place] [address], [place] [address] Aug, [facility] [address] [id number] [address] [place] [address], [place] [address] Aug, [facility] [address] [id number] [address] [place] [address], [place] [address] Aug, [facility] [address] [id number] [address] [place] [address], [place] [address] Aug, [facility] [address] [id number] [address] [place] [address], [place] [address] Aug, [facility] [address] [id number] [address] [place] [address], [place] [id number] Jul, [facility] [address] [id number] [address] [place] [id number] Jul, [facility] [address] [id number] [address] [place] [address], [place] [address] Jul, [facility] [address] [id number] [address] [place] [address], [place] [address] Jul, [facility] [facility] [address] [id number] [address] [place] [address], [place] [address] Jul, [facility] [address] [id number] [address] [place] [address], [place] [address] Jul, [facility] [address] [id number] [address] [place] [address], [place] [address] Jun, [facility] [address] [id number] [address] [place] [address], [place] [address] Jun, [facility] [address] [id number] [address] [place] [address], [place] [address] Jun, [facility] [address] [id number] [address] [place] [address], [place] [address] May, [facility] [address] [id number] [address] [place] [address], [place] [address] May, [facility] [address] [id number] [address] [place] [address], [place] [address] May, [facility] [address] [id number] [address] [place] [address], [place] [address] Apr, [facility] [address] [id number] [address] [place] [address], [place] [address] Apr, [facility] [address] [id number] [address] [place] [address], [place] [address] Apr, [facility] [address] [id number] [address] [place] [address], [place] [address] Apr, [facility] [address] [id number] [address] [place] [address], [place] [address] Mar, [facility] [address] [id number] [address] [place] [address], [place] [address] Mar, [facility] [address] [id number] [address] [place] [address], [place] [address] Mar, [facility] [address] [id number] [address] [place] [address], [place] [address] Mar, [facility] [address] [id number] [address] [place] [address], [place] [address] Feb, [facility] [address] [id number] [address] [place] [address], [place] [address] Feb, [facility] [address] [id number] [address] [place] [address], [place] [address] Feb, [facility] [address] [id number] [address] [place] [address], [place] [address] Feb, [facility] [address] [id number] [address] [place] [address], [place] [address] January, [facility] [address] [id number] [address] [place] [address], [place] [address] January, [facility] [address] [id number] [address] [place] [address], [place] [address] January, [facility] [address] [id number] [address] [place] [address], [place] [address] Nov, [facility] [address] [id number] [address] [place] [address], [place] [address] Nov, [facility] [address] [id number] [address] [place] [address], [place] [address] Oct, [facility] [address] [id number] [address] [place] [address], [place] [address] Oct, [facility] [address] [id number] [address] [place] [address], [place] [address] Oct, [facility] [address] [id number] [address] [place] [address], [place] [address] Oct, [facility] [address] [id number] [address] [place] [address], [place] [address] Sep, [facility] [address] [id number] [address] [place] [address], [place] [address] Sep, [facility] [address] [id number] [address] [place] [address], [place] [address] Sep, [facility] [address] [id number] [address] [place] [address], [place] [address] Aug, [facility] [address] [id number] [address] [place] [address], [place] [address] Aug, [facility] [address] [id number] [address] [place] [address], [place] [address] Aug, [facility] [address] [id number] [address] [place] [address], [place] [address] Aug, [facility] [address] [id number] [address] [place] [address], [place] [address] Aug, [facility] [address] [id number] [address] [place] [address], [place] [address] Aug, [facility] [address] [id number] [address] [place] [address], [place] [address] Jul, [facility] [address] [id number] [address] [place] [address], [place] [address] Jul, [facility] [address] [id number] [address] [place] [address], [place] [address] Jun, [facility] [address] [id number] [address] [place] [address], [place] [address] Jun, [facility] [address] [id number] [address] [place] [address], [place] [address] Jun, [facility] [address] [id number] [address] [place] [address], [place] [address] Apr, [facility] [address] [id number] [address] [place] [address], [place] [address] Apr, [facility] [address] [id number] [address] [place] [address], [place] [address] Mar, [facility] [address] [id number] [address] [place] [address], [place] [address] Mar, [facility] [address] [id number] [address] [place] [address], [place] [address] Mar, [facility] [address] [id number] [address] [place] [address], [place] [address] Mar, [facility] [address] [id number] [address] [place] [address], [place] [address] Feb, [facility] [address] [id number] [address] [place] [address], [place] [address] Feb, [facility] [address] [id number] [address] [place] [address], [place] [address] Feb, [facility] [address] [id number] [address] [place] [address], [place] [address] January, [facility] [address] [id number] [address] [place] [address], [place] [address] January, [facility] [address] [id number] [address] [place] [address], [place] [address] January, [facility] [address] [id number] [address] [place] [address], [place] [address] January, [facility] [address] [id number] [address] [place] [address], [place] [address] Dec, [facility] [address] [id number] [address] [place] [address], [place] [address] Dec, [facility] [address] [id number] [address] [place] [address], [place] [address] Nov, [facility] [address] [id number] [address] [place] [address], [place] [address] Nov, [facility] [address] [id number] [address] [place] [address], [place] [address] 16 Oct, 2011 [facility] [address] [id number] [address] [place] [address], [place] [address] 15 Oct, 2011 [facility] [address] [id number] [address] [place] [address], [place] [address] Sep, [facility] [address] [id number] [address] [place] [address], [place] [address] Sep, [facility] [address] [id number] [address] [place] [address], [place] [address] Sep, [facility] [address] [id number] [address] [place] [address], [place] [address] Sep, [facility] [address] [id number] [address] [place] [address], [place] [address] Aug, [facility] [address] [id number] [address] [place] [address], [place] [address] Aug, [facility] [address] [id number] [address] [place] [address], [place] [address] Aug, [facility] [address] [id number] [address] [place] [address], [place] [address] Jul, [facility] [address] [id number] [address] [place] [address], [place] [address] Aug, [facility] [address] [id number] [address] [place] [address], [place] [address] Aug, [facility] [address] [id number] [address] [place] [address], [place] [address] Aug, [facility] [address] [id number] [address] [place] [address], [place] [address] Aug, [facility] [address] [id number] [address] [place] [address], [place] [address] Jul, [facility] [address] [id number] [address] [place] [id number] Jul, [facility] [address] [id number] [address] [place] [address], [place] [address] Jul, [facility] [address] [id number] [address] [place] [address], [place] [address] Jun, [facility] [address] [id number] [address] [place] [address], [place] [address] Jun, [facility] [address] [id number] [address] [address] Jun, [facility] [address] [facility] [id number] [address] [place] [id number] Apr, [facility] [address] [facility] [id number] [address] [place] [id number] Mar, IMMUNIZATIONS No Known Immunizations SOCIAL HISTORY Never Assessed REASON FOR VISIT PLAN OF CARE VITAL SIGNS Height 66 in 2014-08-21 Weight 258 lbs 2014-08-21 Temperature 98.8 degrees Fahrenheit 2014-08-21 Heart Rate 80 bpm 2014-08-21 Respiratory Rate 28 2014-08-21 Blood pressure systolic 138 mmHg 2014-08-21 Blood pressure diastolic 88 mmHg 2014-08-21 MEDICATIONS Unknown Medications RESULTS No Results PROCEDURES [...]
--- OUTSIDE RECORDS SUMMARY | 2020-03-18 15:22 | XMS REPORT ---
Author Author George WAYNE Organization [facility] Address [address] [place] [address] Care Team Providers Care Sr Account Executive Name Role Phone REYNA WAYNE Unavailable PROBLEMS Type Condition ICD9-CM Code ZZM93-SL Code Onset Dates Condition S tatus SNOMED Code Problem Hypertension, benign I10 Active 09973113 Problem Other chronic pain G89.29 Active 8 7979589 Problem Lumbago with sciatica, unspecified side M54.40 Active 771405122 Problem Controlled type 2 diabetes m ellitus without complication, without long- term current use of insulin E11.9 Active 367954714 Problem Lumbago with sciatica, right side M54.41 Active 732602277 Problem Adjustment disorder with disturbance of emotion F4 3.29 Active 44030118 Problem MELE (obstructive sleep apnea) G47.33 Active 14862879 Problem Non morbid obesity E66.9 Active 4 58475165 Problem Hammer toe of left foot M20.42 Active 190702491 Problem Mood disorder F39 Active 801549 05 Problem Deformity of left foot M21.962 Active 247077996 Problem Lumbago with sciatica, left side M54.42 Active 059933863 Problem Erectile dysfunction due to diseases classified elsewhere N52.1 Active 782469024 Problem Obstructive sleep apnea syndrome G47.33 Active 15830960 Problem Type 2 diabetes mellitus wit h diabetic neuropathy, without long-term current use of insulin E11.40 Active 68333 006 Problem Essential hypertension I10 Active 20019075 ALLERGIES No Information ENCOUNTERS Encounter Location Date Diagnosis [facility] [address] [id number] [address] [place] [address] May, Lumbago with sciatica, unspe cified side M54.40 [facility] [address] [facility] [id number] [address] [place] [address] May, [facility] [address] [address] May, Type 2 diabetes mellitus wit h diabetic neuropathy, without long- term current use of insulin E11.40 and Hammer toe of left foot M20.42 [place] [address] [address] May, [facility] [address] [address] May, [place] [address] [address] May, [place] [address] [address] Apr, Lumbago with sciatica, unspe cified side M54.40 [place] [address] [address] Apr, [place] [address] [address] Apr, [address] [address] Apr, Hammer toe of left foot M20.42 ; Chest p ain R07.9 ; Preoperative examination Z01.818 and Morbid obesity E66.01 [place] [address] [address] Apr, Morbid obesity E66.01 ; Bron chitis J40 and High risk medications (not anticoagulants) long-term use Z79.899 [place] [address] [address] Apr, Lumbago with sciatica, unspe cified side M54.40 [place] [address] [address] Apr, [place] [address] [address] Mar, Lumbar neuritis M54.16 and M orbid obesity E66.01 [facility] [address] [id number] [address] [place] [address] Mar, [facility] [address] [id number] [address] [place] [address] Mar, [facility] [address] [facility] [id number] [address] [place] [address] Mar, Lumbago with sciatica, unspe cified side M54.40 [facility] [address] [id number] [address] [place] [address] Mar, Morbid obesity E66.01 ; Coug marco R05 ; 2+ pitting edema R60.9 and Controlled type 2 diabetes mellitus without complication, without long-term current use of insulin E11.9 [place] [address] [id number] [address] [place] [address] Feb, [facility] [address] [id number] [address] [place] [address] Feb, Lumbago with sciatica, unspe cified side M54.40 [facility] [address] [id number] [address] [place] [address] Feb, [facility] [address] [id number] [address] [place] [address] Feb, Controlled type 2 diabetes m ellitus without complication, without long-term current use of insulin E11.9 and Morbid obesity E66.01 [facility] [address] [id number] [address] [place] [address] January, Deformity of left foot M21.9 62 [facility] [address] [id number] [address] [place] [address] January, [facility] [address] [id number] [address] [place] [address] January, Lumbago with sciatica, unspe cified side M54.40 [facility] [address] [id number] [address] [place] [address] January, [facility] [address] [facility] [id number] [address] [place] [address] January, Lumbago with sciatica, unspe cified side M54.40 [facility] [address] [facility] [id number] [address] [place] [address] January, [facility] [address] [id number] [address] [place] [address] January, Acute right-sided thoracic b ack pain M54.6 [facility] [address] [id number] [place] [address] January, Acute right-sided thoracic b ack pain M54.6 [facility] [id number] [address] [place] [address] January, Chest pain, unspecified type R07.9 ; Morbid obesity E66.01 and Scabies B86 [facility] [id number] [address] [place] [address] Dec, Lumbago with sciatica, unspe cified side M54.40 [facility] [address] [id number] [address] [place] [address] Dec, Toenail fungus B35.1 [place] [address] [place] [id number] [place] [address] Dec, Toenail fungus B35.1 [facility] [id number] [address] [place] [address] Dec, Acute right-sided thoracic b ack pain M54.6 [facility] [address] [facility] [id number] [address] [place] [address] Dec, Lumbago with sciatica, unspe cified side M54.40 [facility] [address] [facility] [id number] [address] [place] [address] Nov, Hammer toe of left foot M20. 42 ; Deformity of left foot M21.962 and Type 2 diabetes mellitus with diabetic neuropathy, without long-term current use of insulin E11.40 [facility] [address] [address] Nov, Acute right-sided thoracic b ack pain M54.6 ; Morbid obesity E66.01 and Rt flank pain R10.9 [place] [address] [address] Nov, Lumbago with sciatica, unspe cified side M54.40 [place] [address] [address] Oct, Lumbago with sciatica, unspe cified side M54.40 [facility] [address] [address] Sep, Lumbago with sciatica, unspe cified side M54.40 [facility] [address] [address] Sep, [place] [address] [address] Sep, BMI 40.0-44.9, adult Z68.41 ; Lumbago with sciatica, left side M54.42 ; Lumbago with sciatica, right side M54.41 and Other chronic pain G89.29 [facility] [address] [address] Aug, Lumbago with sciatica, unspe cified side M54.40 [place] [address] [address] Aug, Type 2 diabetes mellitus wit h diabetic neuropathy, without long- term current use of insulin E11.40 ; Hammer toe of left foot M20.42 ; Hypertension, benign I10 and Frequent headaches R51 [facility] [address] [address] Jul, Lumbago with sciatica, unspe cified side M54.40 [place] [address] [facility] [id number] [address] [place] [address] Jul, [place] [address] [facility] [id number] [address] [place] [address] Jul, Essential hypertension I10 a nd Controlled type 2 diabetes mellitus without complication, without long-term current use of insulin E11.9 [place] [address] [facility] [id number] [address] [place] [address] Jul, Essential hypertension I10 ; Controlled type 2 diabetes mellitus without complication, without long-term current use of insulin E11.9 and BMI 40.0-44.9, adult Z68.41 [place] [address] [facility] [id number] [address] [place] [address] Jul, Dysfunction of left eustachi an tube H69.82 [place] [address] [place] [id number] [place] [address] Jul, Lumbago with sciatica, unspe cified side M54.40 [facility] [address] [place] [address] [id number] Jun, Dental examination Z01.20 [place] [address] [place] [id number] [address] [place] [address] Jun, Lumbago with sciatica, unspe cified side M54.40 and Encounter for immunization Z23 [place] [address] [facility] [id number] [address] [place] [address] Jun, Dysfunction of left eustachi an tube H69.82 [facility] [id number] [place] [address] [id number] Jun, Dental examination Z01.20 [facility] [address] [facility] [id number] [address] [place] [address] Jun, Other chronic pain G89.29 [facility] [address] [place] [address] [id number] [address] [place] [address] [id number] Jun, Dental examination Z01.20 [place] [address] [place] [id number] [address] [place] [address] Jun, [facility] [address] [address] Jun, Bronchitis J40 ; Dysfunction of left eustachian tube H69.82 and BMI 45.0-49.9, adult Z68.42 [place] [address] [address] Jun, Lumbago with sciatica, unspe cified side M54.40 [place] [address] [address] May, Type 2 diabetes mellitus wit h diabetic neuropathy, without long- term current use of insulin E11.40 and Hypertension, benign I10 [place] [address] [address] May, Lumbago with sciatica, unspe cified side M54.40 [facility] [address] [id number] [address] [place] [address] Apr, [place] [address] [address] Apr, Controlled type 2 diabetes m ellitus without complication, without long-term current use of insulin E11.9 ; Insect bite (nonvenomous), right ankle, initial encounter S90.561A ; Local infection of the skin and subcutaneous tissue, unspecified L08.9 ; Acute swimmer''s ear of left side H60.332 and BMI 45.0-49.9, adult Z68.42 [place] [address] [place] [id number] [address] [place] [address] Apr, Lumbago with sciatica, unspe cified side M54.40 [place] [address] [address] Mar, [place] [address] [place] [address] [id number] [address] [place] [address] Mar, Lumbago with sciatica, unspe cified side M54.40 [place] [address] [place] [id number] [place] [address] Feb, Lumbago with sciatica, unspe cified side M54.40 [place] [address] [place] [id number] [place] [address] Feb, BMI 45.0-49.9, adult Z68.42 and Obstructive sleep apnea syndrome G47.33 [place] [address] [place] [id number] [place] [address] January, Lumbar neuritis M54.16 [place] [address] [place] [address] [id number] [place] [address] January, Lumbago with sciatica, unspe cified side M54.40 [place] [address] [place] [id number] [place] [address] Dec, Controlled type 2 diabetes m ellitus without complication, without long-term current use of insulin E11.9 ; Erectile dysfunction due to diseases classified elsewhere N52.1 and Mood disorder F39 [place] [id number] [place] [address] Dec, Lumbago with sciatica, unspe cified side M54.40 [place] [address] [place] [id number] [place] [address] Dec, Obstructive sleep apnea synd luis G47.33 [place] [address] [place] [id number] [place] [address] Nov, Lumbago with sciatica, unspe cified side M54.40 ; Hypertension, benign I10 and Mood disorder F39 [place] [address] [place] [id number] [place] [address] Nov, Other chronic pain G89.29 [facility] [address] [id number] [address] [place] [address] Nov, Lumbago with sciatica, unspe cified side M54.40 [facility] [address] [id number] [address] [place] [address] [id number] Nov, Dental examination Z01.20 [facility] [address] [id number] [address] [place] [address] Oct, [facility] [address] [id number] [address] [place] [address] Oct, Lumbago with sciatica, unspe cified side M54.40 [facility] [address] [id number] [address] [place] [address] Oct, Lumbago with sciatica, unspe cified side M54.40 [facility] [address] [id number] [address] [place] [address] Oct, [facility] [address] [id number] [address] [place] [address] Oct, [facility] [address] [id number] [address] [place] [address] [id number] Oct, Dental examination Z01.20 [facility] [address] [id number] [address] [place] [address] Oct, [facility] [address] [id number] [address] [place] [address] Oct, Pain in right knee M25.561 [facility] [address] [id number] [address] [place] [address] Sep, [facility] [address] [id number] [address] [place] [address] Sep, Other chronic pain G89.29 [facility] [address] [id number] [address] [place] [address] Sep, Lumbago with sciatica, unspe cified side M54.40 [facility] [address] [address] Sep, [facility] [address] [address] Sep, Viral URI J06.9 and BMI 45.0 -49.9, adult Z68.42 [facility] [address] [address] Aug, Foreign body hand S60.559A a nd BMI 45.0-49.9, adult Z68.42 [place] [address] [address] Aug, [place] [address] [address] Aug, Lumbago with sciatica, unspe cified side M54.40 [place] [address] [address] Aug, Vertigo R42 ; Dysfunction of both eustachian tubes H69.83 ; Low back pain M54.5 and Other chronic pain G89.29 [facility] [address] [address] Aug, Dizziness R42 and Acute bila teral otitis media H66.93 [place] [address] [address] Aug, Lumbago with sciatica, unspe cified side M54.40 [facility] [address] [id number] [address] [place] [address] [id number] Jul, Dental examination Z01.20 [place] [address] [address] Jul, [place] [address] [address] Jul, [facility] [address] [address] [id number] [place] [address] Jul, Dysfunction of both eustachi an tubes H69.83 [place] [address] [facility] [id number] [address] [place] [address] Jul, Controlled type 2 diabetes m ellitus without complication, without long-term current use of insulin E11.9 [place] [address] [place] [id number] [place] [address] Jul, Controlled type 2 diabetes m ellitus without complication, without long-term current use of insulin E11.9 [facility] [address] [address] Jul, Dizziness R42 and BMI 40.0-4 4.9, adult Z68.41 [place] [address] [address] Jul, Controlled type 2 diabetes m ellitus without complication, without long-term current use of insulin E11.9 [place] [address] [place] [id number] [place] [address] Jul, Lumbago with sciatica, unspe cified side M54.40 [facility] [address] [place] [address] [id number] Jul, Dental examination Z01.20 [place] [address] [place] [id number] [place] [address] Jun, [facility] [id number] [place] [address] [id number] Jun, Dental examination Z01.20 [place] [address] [place] [id number] [place] [address] Jun, Controlled type 2 diabetes m ellitus without complication, without long-term current use of insulin E11.9 [place] [address] [place] [id number] [place] [address] Jun, Lumbago with sciatica, unspe cified side M54.40 [facility] [address] [id number] [address] [place] [address] [id number] May, Dental examination Z01.20 [facility] [address] [facility] [id number] [address] [place] [address] 21 May, 2017 Controlled type 2 diabetes m ellitus without complication, without long-term current use of insulin E11.9 [facility] [address] [id number] [address] [place] [address] [id number] 19 May, 2017 Dental examination Z01.20 [facility] [address] [facility] [id number] [address] [place] [id number] 18 May, 2017 Bronchitis J40 ; Dry mouth R 68.2 ; Non morbid obesity E66.9 and Controlled type 2 diabetes mellitus without complication, without long-term current use of insulin E11.9 [facility] [address] [facility] [id number] [address] [place] [address] 16 May, 2017 Encounter for immunization Z 23 [facility] [address] [facility] [id number] [address] [place] [address] 07 May, 2017 Lumbago with sciatica, unspe cified side M54.40 [facility] [address] [facility] [id number] [address] [place] [id number] 05 May, 2017 [facility] [address] [facility] [id number] [address] [place] [address] [id number] Apr, Dental examination Z01.20 [facility] [address] [facility] [id number] [address] [place] [address] Apr, Lumbago with sciatica, unspe cified side M54.40 [facility] [address] [facility] [id number] [address] [place] [address] Mar, Lumbago with sciatica, left side M54.42 [facility] [address] [facility] [id number] [address] [place] [id number] Mar, [facility] [address] [facility] [id number] [address] [place] [address] Mar, Lumbar neuritis M54.16 [facility] [address] [facility] [id number] [address] [place] [address] Mar, [facility] [address] [id number] [address] [place] [address] [id number] Mar, Dental examination Z01.20 [facility] [address] [facility] [id number] [address] [place] [address] Mar, MELE (obstructive sleep apnea ) G47.33 ; Neuropathy involving both lower extremities G57.93 and Frequent headaches R51 [place] [address] [facility] [id number] [address] [place] [address] Mar, Lumbago with sciatica, unspe cified side M54.40 [place] [address] [place] [id number] [place] [address] Feb, Lumbago with sciatica, unspe cified side M54.40 and Controlled type 2 diabetes mellitus without complication, without long-term current use of insulin E11.9 [place] [address] [place] [id number] [address] [place] [address] January, Hypertension, benign I10 and Bilateral low back pain with sciatica, sciatica laterality unspecified M54.40 [place] [address] [place] [id number] [address] [place] [address] January, Hypertension, benign I10 ; L umbago with sciatica, unspecified side M54.40 ; Other chronic pain G89.29 and Controlled type 2 diabetes mellitus without complication, without long-term current use of insulin E11.9 [facility] [address] [facility] [id number] [address] [place] [address] January, Lumbar neuritis M54.16 [facility] [address] [facility] [id number] [address] [place] [address] January, [facility] [address] [facility] [id number] [address] [place] [address] Dec, Lumbago with sciatica, right side M54.41 and Lumbar neuritis M54.16 [place] [address] [place] [address] Dec, Lumbar neuritis M54.16 [place] [address] [place] [id number] [place] [address] Dec, Lumbar neuritis M54.16 [place] [address] [address] Nov, Lumbar neuritis M54.16 ; Lum bago with sciatica, right side M54.41 ; Controlled type 2 diabetes mellitus without complication, without long-term current use of insulin E11.9 and Rash and nonspecific skin eruption R21 [place] [address] [address] Nov, Lumbar neuritis M54.16 and Saida color[place] L23.7 [place] [address] [address] Oct, Lumbar neuritis M54.16 ; Cou ghing R05 and Mood disorder F39 [place] [address] [address] Sep, Lumbago with sciatica, right side M54.41 [place] [address] [address] Sep, Adjustment disorder with dis turbance of emotion F43.29 and Pain management R52 [place] [id number] [place] [id number] Sep, [place] [address] [place] [id number] [place] [id number] Sep, [place] [address] [place] [id number] [place] [id number] Sep, Controlled type 2 diabetes m ellitus without complication, without long-term current use of insulin E11.9 and Lumbago with sciatica, unspecified side M54.40 [facility] [address] [id number] [address] [place] [id number] Aug, Controlled type 2 diabetes evens reyna without complication, without long-term current use of insulin E11.9 ; Pain in right knee M25.561 ; Pain in left knee M25.562 ; Other chronic pain G89.29 ; Lumbago with sciatica, right side M54.41 ; Neck pain M54.2 and Encounter for immunization Z23 [facility] [address] [id number] [address] [place] [id number] Jul, [facility] [address] [facility] [id number] [address] [place] [id number] Jul, Controlled type 2 diabetes evens reyna without complication, without long-term current use of insulin E11.9 [facility] [address] [facility] [id number] [address] [place] [address] Jul, [facility] [address] [facility] [id number] [address] [place] [address] Jul, [facility] [address] [facility] [id number] [address] [place] [address] Jul, Lumbago with sciatica, left side M54.42 ; Lumbago with sciatica, right side M54.41 and Other chronic pain G89.29 [facility] [address] [facility] [id number] [address] [place] [address] Jul, [facility] [address] [id number] [address] [place] [address] Jul, [facility] [address] [facility] [id number] [address] [place] [address] Jun, [facility] [address] [facility] [id number] [address] [place] [address] Jun, Lumbago with sciatica, right side M54.41 and Other chronic pain G89.29 [facility] [address] [id number] [address] [place] [address] 13 Jun, 2016 Cervicalgia M54.2 ; Lumbago with sciatica, unspecified side M54.40 and Other chronic pain G89.29 [facility] [address] [id number] [address] [place] [address] 15 May, 2016 Pain in right knee M25.561 ; Pain in left knee M25.562 and Other chronic pain G89.29 [facility] [address] [id number] [address] [place] [address] 14 May, 2016 [facility] [address] [id number] [address] [place] [address] Apr, Other chronic pain G89.29 an d Pain in right knee M25.561 [facility] [address] [id number] [address] [place] [address] Apr, Pain in right knee M25.561 [facility] [address] [id number] [address] [place] [address] Mar, [facility] [address] [id number] [address] [place] [address] Mar, Mood disorder F39 and Contro lled type 2 diabetes mellitus without complication, without long-term current use of insulin E11.9 [facility] [address] [id number] [address] [place] [address] Mar, Pain in right knee M25.561 ; Pain in left knee M25.562 ; Other chronic pain G89.29 ; Obstructive sleep apnea syndrome G47.33 ; Mood disorder F39 and Controlled type 2 diabetes mellitus without complication, without long- term current use of insulin E11.9 [facility] [address] [id number] [address] [place] [address] Mar, [facility] [address] [id number] [address] [place] [id number] Feb, Dental examination Z01.20 [facility] [address] [id number] [address] [place] [address] Feb, [facility] [address] [id number] [address] [place] [address] Feb, Osteoarthritis of right knee , unspecified osteoarthritis type M17.9 [facility] [address] [id number] [address] [place] [address] January, [facility] [address] [id number] [address] [place] [address] [id number] January, Dental examination Z01.20 [facility] [address] [id number] [address] [place] [address] January, [facility] [address] [id number] [address] [place] [id number] January, Dental examination Z01.20 an d Caries K02.9 [facility] [address] [id number] [address] [place] [address] Dec, Encounter for other preproce dural examination Z01.818 [facility] [address] [id number] [address] [place] [address] Dec, [facility] [address] [id number] [address] [place] [address] Dec, Knee pain M25.569 [facility] [address] [id number] [address] [place] [address] 15 Dec, 2015 Pain in right knee M25.561 [facility] [address] [id number] [address] [place] [address] Dec, [facility] [address] [id number] [address] [place] [address] Dec, [facility] [address] [id number] [address] [place] [address] Dec, Encounter for immunization Z 23 [facility] [address] [id number] [address] [place] [address] Dec, [facility] [address] [id number] [address] [place] [address] Dec, [facility] [address] [id number] [address] [place] [address] Nov, [facility] [address] [id number] [address] [place] [address] Nov, Hypertension, benign I10 ; C ervicalgia M54.2 ; Pain in right knee M25.561 and Pain in left knee M25.562 [facility] [address] [id number] [address] [place] [address] Oct, [facility] [address] [id number] [address] [place] [address] Oct, [facility] [address] [id number] [address] [place] [address] Oct, Osteoarthritis of both knees M17.0 [facility] [address] [id number] [address] [place] [address] Oct, [facility] [address] [id number] [address] [place] [address] Oct, Low back pain M54.5 [facility] [address] [id number] [address] [place] [address] Oct, Low back pain M54.5 ; Sciati ca, unspecified side M54.30 ; Pain in right knee M25.561 ; Pain in left knee M25.562 ; Pain in right shoulder M25.511 and Pain in left shoulder M25.512 [facility] [address] [id number] [address] [place] [address] Oct, [facility] [address] [id number] [address] [place] [address] Sep, Pain in right hip M25.551 [facility] [address] [facility] [id number] [address] [place] [address] Sep, Acute upper respiratory infe ction, unspecified J06.9 [facility] [address] [facility] [id number] [address] [place] [address] Aug, Acute upper respiratory infe ction, unspecified J06.9 and Other viral agents as the cause of diseases classified elsewhere B97.89 [facility] [address] [facility] [id number] [address] [place] [address] Jul, Arthritis M19.90 [facility] [address] [facility] [id number] [address] [place] [address] Jun, Arthritis M19.90 ; Pain in r ight hip M25.551 ; Pain in left hip M25.552 ; Bilateral low back pain with sciatica, sciatica laterality unspecified M54.40 ; Neck pain M54.2 ; Upper back pain M54.9 and Knee pain, unspecified laterality M25.569 [place] [address] [place] [id number] [address] [place] [address] May, Osteoarthritis of both knees 715.96 [place] [address] [id number] [address] [place] [address] May, Rash 782.1 [place] [place] [address] [facility] [id number] [address] [place] [address] Apr, Lumbar strain 847.2 [place] [place] [address] [facility] [id number] [address] [place] [address] Apr, Rash 782.1 [place] [place] [address] [facility] [id number] [address] [place] [address] Mar, Rash 782.1 [place] [place] [address] [facility] [id number] [address] [place] [address] Feb, Rash 782.1 ; Hemorrhoids 455 .6 and Constipation 564.00 [place] [place] [address] [facility] [id number] [address] [place] [address] Feb, Osteoarthritis of both knees 715.96 [place] [place] [address] [facility] [id number] [address] [place] [address], [place] [address] 15 Jan, 2015 [facility] [address] [id number] [address] [place] [address], [place] [address] 28 Dec, 2014 [facility] [address] [id number] [address] [place] [address], [place] [address] 14 Dec, 2014 [facility] [address] [id number] [address] [place] [address], [place] [address] 13 Dec, 2014 [facility] [address] [id number] [address] [place] [address], [place] [address] 18 Nov, 2014 [facility] [address] [id number] [address] [place] [address], [place] [address] 18 Nov, 2014 [facility] [address] [id number] [address] [place] [address], [place] [address] 18 Nov, 2014 [facility] [address] [id number] [address] [place] [address], [place] [address] 18 Nov, 2014 [facility] [address] [id number] [address] [place] [address], [place] [address] Nov, [facility] [address] [id number] [address] [place] [address], [place] [address] Nov, [facility] [address] [id number] [address] [place] [address], [place] [address] Oct, [facility] [address] [id number] [address] [place] [address], [place] [address] Oct, [facility] [address] [id number] [address] [place] [address], [place] [address] Oct, [facility] [address] [id number] [address] [place] [address], [place] [address] Oct, [facility] [address] [id number] [address] [place] [address], [place] [address] Oct, [facility] [address] [id number] [address] [place] [address], [place] [address] Oct, [facility] [address] [id number] [address] [place] [address], [place] [address] Oct, 2014 [facility] [address] [id number] [address] [place] [address], [place] [address] Oct, [facility] [address] [id number] [address] [place] [address], [place] [address] Oct, [facility] [address] [id number] [address] [place] [address], [place] [address] Oct, [facility] [address] [id number] [address] [place] [address], [place] [address] Oct, [facility] [address] [id number] [address] [place] [address], [place] [address] Sep, [facility] [address] [id number] [address] [place] [address], [place] [address] Sep, [facility] [address] [id number] [address] [place] [address], [place] [address] Sep, [facility] [address] [id number] [address] [place] [address], [place] [address] Sep, [facility] [address] [id number] [address] [place] [address], [place] [address] Sep, [facility] [address] [id number] [address] [place] [address], [place] [address] Sep, [facility] [address] [id number] [address] [place] [address], [place] [address] Aug, [facility] [address] [id number] [address] [place] [address], [place] [address] Aug, [facility] [address] [id number] [address] [place] [address], [place] [address] Aug, [facility] [address] [id number] [address] [place] [address], [place] [address] Aug, [facility] [address] [id number] [address] [place] [address], [place] [address] Aug, [facility] [address] [id number] [address] [place] [address], [place] [address] Aug, [facility] [address] [id number] [address] [place] [address], [place] [address] Aug, [facility] [address] [id number] [address] [place] [address], [place] [address] Aug, [facility] [address] [id number] [address] [place] [address], [place] [address] Aug, [facility] [address] [id number] [address] [place] [address], [place] [address] Aug, [facility] [address] [id number] [address] [place] [address], [place] [address] Jul, [facility] [address] [id number] [address] [place] [address], [place] [address] Jul, [facility] [address] [id number] [address] [place] [address], [place] [address] Jul, [facility] [address] [id number] [address] [place] [address], [place] [address] Jul, [facility] [address] [id number] [address] [place] [address], [place] [address] Jun, [facility] [address] [id number] [address] [place] [address], [place] [address] Jun, [facility] [address] [id number] [address] [place] [address], [place] [address] Jun, [facility] [address] [id number] [address] [place] [address], [place] [address] Jun, [facility] [address] [id number] [address] [place] [address], [place] [address] Jun, [facility] [address] [id number] [address] [place] [address], [place] [address] Jun, [facility] [address] [id number] [address] [place] [address], [place] [address] Jun, [facility] [address] [id number] [address] [place] [address], [place] [address] Jun, [facility] [address] [id number] [address] [place] [address], [place] [address] May, [facility] [address] [id number] [address] [place] [address], [place] [address] 24 May, 2014 [facility] [address] [id number] [address] [place] [address], [place] [address] May, [facility] [address] [id number] [address] [place] [address], [place] [address] May, [facility] [address] [id number] [address] [place] [address], [place] [address] 15 May, 2014 [facility] [address] [id number] [address] [place] [address], [place] [address] 15 May, 2014 [facility] [address] [id number] [address] [place] [address], [place] [address] May, [facility] [address] [id number] [address] [place] [address], [place] [address] May, [facility] [address] [id number] [address] [place] [address], [place] [address] Apr, [facility] [address] [id number] [address] [place] [address], [place] [address] Apr, [facility] [address] [id number] [address] [place] [address], [place] [address] Apr, [facility] [address] [id number] [address] [place] [address], [place] [address] Apr, [facility] [address] [id number] [address] [place] [address], [place] [address] Apr, [facility] [address] [id number] [address] [place] [address], [place] [address] Apr, [facility] [address] [id number] [address] [place] [address], [place] [address] Apr, [facility] [address] [id number] [address] [place] [address], [place] [address] Apr, [facility] [address] [id number] [address] [place] [address], [place] [address] Apr, [facility] [address] [id number] [address] [place] [address], [place] [address] Apr, [facility] [address] [id number] [address] [place] [address], [place] [address] Apr, [facility] [address] [id number] [address] [place] [address], [place] [address] Apr, [facility] [address] [id number] [address] [place] [address], [place] [address] Mar, [facility] [address] [id number] [address] [place] [address], [place] [address] Mar, [facility] [address] [id number] [address] [place] [address], [place] [address] Mar, [facility] [address] [id number] [address] [place] [address], [place] [address] Mar, [facility] [address] [id number] [address] [place] [address], [place] [address] Mar, [facility] [address] [id number] [address] [place] [address], [place] [address] Mar, [facility] [address] [id number] [address] [place] [address], [place] [address] Feb, [facility] [address] [id number] [address] [place] [address], [place] [address] Feb, [facility] [address] [id number] [address] [place] [address], [place] [address] Feb, [facility] [address] [id number] [facility] [place] [address] 17 Feb, 2014 [facility] [address] [id number] [facility] [place] [address] Feb, [facility] [address] [id number] [facility] [place] [address] Feb, [facility] [address] [id number] [facility] [place] [address] Feb, [facility] [address] [id number] [facility] [place] [address] Feb, [facility] [address] [id number] [facility] [place] [address] Feb, [facility] [address] [id number] [address] [place] [address], [place] [address] Feb, [facility] [address] [id number] [address] [place] [address], [place] [address] Feb, [facility] [address] [id number] [address] [place] [address], [place] [address] Feb, [facility] [address] [id number] [address] [place] [address], [place] [address] Feb, [facility] [address] [id number] [address] [place] [address], [place] [address] Feb, [facility] [address] [id number] [address] [place] [address], [place] [address] January, [facility] [address] [id number] [address] [place] [address], [place] [address] January, [facility] [address] [id number] [address] [place] [address], [place] [address] January, [facility] [address] [id number] [address] [place] [address], [place] [address] January, [facility] [address] [id number] [address] [place] [address], [place] [address] January, [facility] [address] [id number] [facility] [place] [address] January, [facility] [address] [id number] [facility] [place] [address] Dec, [facility] [address] [id number] [facility] [place] [address] Dec, [facility] [address] [id number] [address] [place] [address], [place] [address] Dec, [facility] [address] [id number] [facility] [place] [address] Dec, [facility] [address] [id number] [address] [place] [address], [place] [address] Dec, [facility] [address] [id number] [address] [place] [address], [place] [address] Dec, [facility] [address] [id number] [address] [place] [address], [place] [address] Dec, [facility] [address] [id number] [address] [place] [address], [place] [address] Dec, [facility] [address] [id number] [address] [place] [address], [place] [address] Nov, [facility] [address] [id number] [address] [place] [address], [place] [address] Nov, [facility] [address] [id number] [address] [place] [address], [place] [address] Nov, [facility] [address] [id number] [address] [place] [address], [place] [address] Nov, [facility] [address] [id number] [address] [place] [address], [place] [address] Nov, [facility] [address] [id number] [address] [place] [address], [place] [address] Nov, [facility] [address] [id number] [address] [place] [address], [place] [address] Nov, [facility] [address] [id number] [address] [place] [address], [place] [address] Nov, [facility] [address] [id number] [address] [place] [address], [place] [address] Oct, [facility] [address] [id number] [address] [place] [address], [place] [address] Oct, [facility] [address] [id number] [address] [place] [address], [place] [address] Oct, [facility] [address] [id number] [address] [place] [address], [place] [address] Oct, [facility] [address] [id number] [address] [place] [address], [place] [address] Oct, [facility] [address] [id number] [address] [place] [address], [place] [address] Oct, [facility] [address] [id number] [address] [place] [address], [place] [address] Oct, [facility] [address] [id number] [address] [place] [address], [place] [address] Oct, [facility] [address] [id number] [address] [place] [address], [place] [address] Oct, [facility] [address] [id number] [address] [place] [address], [place] [address] Oct, [facility] [address] [id number] [address] [place] [address], [place] [address] Sep, [facility] [address] [id number] [address] [place] [address], [place] [address] Sep, [facility] [address] [id number] [address] [place] [address], [place] [address] Sep, [facility] [address] [id number] [address] [place] [address], [place] [address] Sep, [facility] [address] [id number] [address] [place] [address], [place] [address] Sep, [facility] [address] [id number] [address] [place] [address], [place] [address] Sep, [facility] [address] [id number] [address] [place] [address], [place] [address] Aug, [facility] [address] [id number] [address] [place] [address], [place] [address] Aug, [facility] [address] [id number] [address] [place] [address], [place] [address] Aug, [facility] [address] [id number] [address] [place] [address], [place] [address] Aug, [facility] [address] [id number] [address] [place] [address], [place] [address] Aug, [facility] [address] [id number] [address] [place] [address], [place] [address] Aug, [facility] [address] [id number] [address] [place] [address], [place] [address] Aug, [facility] [address] [id number] [address] [place] [address], [place] [address] Aug, [facility] [address] [id number] [address] [place] [address], [place] [address] Jul, [facility] [address] [id number] [address] [place] [address] Jul, [facility] [address] [id number] [address] [place] [address], [place] [address] Jul, [facility] [address] [id number] [address] [place] [address], [place] [address] Jul, [facility] [address] [id number] [address] [place] [address], [place] [address] Jul, [facility] [address] [id number] [address] [place] [address], [place] [address] Jul, [facility] [address] [id number] [address] [place] [address], [place] [address] Jun, [facility] [address] [id number] [address] [place] [address], [place] [address] Jun, [facility] [address] [id number] [address] [place] [address], [place] [address] Jun, [facility] [address] [id number] [address] [place] [address], [place] [address] May, [facility] [address] [id number] [address] [place] [address], [place] [address] May, [facility] [facility] [address] [id number] [address] [place] [address], [place] [address] May, [facility] [address] [id number] [address] [place] [address], [place] [address] Apr, [facility] [address] [id number] [address] [place] [address], [place] [address] Apr, [facility] [address] [id number] [address] [place] [address], [place] [address] Apr, [facility] [address] [id number] [address] [place] [address], [place] [address] Apr, [facility] [address] [id number] [address] [place] [address], [place] [address] Mar, [facility] [address] [id number] [address] [place] [address], [place] [address] Mar, [facility] [address] [id number] [address] [place] [address], [place] [address] Mar, [facility] [address] [id number] [address] [place] [address], [place] [address] Mar, [facility] [address] [id number] [address] [place] [address], [place] [address] Feb, [facility] [address] [id number] [address] [place] [address], [place] [address] Feb, [facility] [address] [id number] [address] [place] [address], [place] [address] Feb, [facility] [address] [id number] [address] [place] [address], [place] [address] Feb, [facility] [address] [id number] [address] [place] [address], [place] [address] January, [facility] [address] [id number] [address] [place] [address], [place] [address] January, [facility] [address] [id number] [address] [place] [address], [place] [address] January, [facility] [address] [id number] [address] [place] [address], [place] [address] Nov, [facility] [address] [id number] [address] [place] [address], [place] [address] Nov, [facility] [address] [id number] [address] [place] [address], [place] [address] Oct, [facility] [address] [id number] [address] [place] [address], [place] [address] Oct, [facility] [address] [id number] [address] [place] [address], [place] [address] Oct, [facility] [address] [id number] [address] [place] [address], [place] [address] Oct, [facility] [address] [id number] [address] [place] [address], [place] [address] Sep, [facility] [address] [id number] [address] [place] [address], [place] [address] Sep, [facility] [address] [id number] [address] [place] [address], [place] [address] Sep, [facility] [address] [id number] [address] [place] [address], [place] [address] Aug, [facility] [address] [id number] [address] [place] [address], [place] [address] Aug, [facility] [address] [id number] [address] [place] [address], [place] [address] Aug, [facility] [address] [id number] [address] [place] [address], [place] [address] Aug, [facility] [address] [id number] [address] [place] [address], [place] [address] Aug, [facility] [address] [id number] [address] [place] [address], [place] [address] Aug, [facility] [address] [id number] [address] [place] [address], [place] [address] Jul, [facility] [address] [id number] [address] [place] [address], [place] [address] Jul, [facility] [address] [id number] [address] [place] [address], [place] [address] Jun, [facility] [address] [id number] [address] [place] [address], [place] [address] Jun, [facility] [address] [id number] [address] [place] [address], [place] [address] Jun, [facility] [address] [id number] [address] [place] [address], [place] [address] Apr, [facility] [address] [id number] [address] [place] [address], [place] [address] Apr, [facility] [address] [id number] [address] [place] [address], [place] [address] Mar, [facility] [address] [id number] [address] [place] [address], [place] [address] Mar, [facility] [address] [id number] [address] [place] [address], [place] [address] Mar, [facility] [address] [id number] [address] [place] [address], [place] [address] Mar, [facility] [address] [id number] [address] [place] [address], [place] [address] Feb, [facility] [address] [id number] [address] [place] [address], [place] [address] Feb, [facility] [address] [id number] [address] [place] [address], [place] [address] Feb, [facility] [address] [id number] [address] [place] [address], [place] [address] January, [facility] [address] [id number] [address] [place] [address], [place] [address] January, [facility] [address] [id number] [address] [place] [address], [place] [address] January, [facility] [address] [id number] [address] [place] [address], [place] [address] January, [facility] [address] [id number] [address] [place] [address], [place] [address] Dec, [facility] [address] [id number] [address] [place] [address], [place] [address] Dec, [facility] [address] [id number] [address] [place] [address], [place] [address] Nov, [facility] [address] [id number] [address] [place] [address], [place] [address] Nov, [facility] [address] [id number] [address] [place] [address], [place] [address] 16 Oct, 2011 [facility] [address] [id number] [address] [place] [address], [place] [address] 15 Oct, 2011 [facility] [address] [id number] [address] [place] [address], [place] [address] Sep, [facility] [address] [id number] [address] [place] [address], [place] [address] Sep, [facility] [address] [id number] [address] [place] [address], [place] [address] Sep, [facility] [address] [id number] [address] [place] [address], [place] [address] Sep, [facility] [address] [id number] [address] [place] [address], [place] [address] Aug, [facility] [address] [id number] [address] [place] [address], [place] [address] Aug, [facility] [address] [id number] [address] [place] [address], [place] [address] Aug, [facility] [address] [id number] [address] [place] [address], [place] [address] Jul, [facility] [address] [id number] [address] [place] [address], [place] [address] Aug, [facility] [address] [id number] [address] [place] [address], [place] [address] Aug, [facility] [address] [id number] [address] [place] [address], [place] [address] Aug, [facility] [address] [id number] [address] [place] [address], [place] [address] Aug, [facility] [address] [id number] [address] [place] [address], [place] [address] Jul, [facility] [address] [id number] [address] [place] [address] Jul, [facility] [address] [id number] [address] [place] [address], [place] [address] Jul, [facility] [address] [id number] [address] [place] [address], [place] [address] Jun, [facility] [address] [id number] [address] [place] [address], [place] [address] Jun, [facility] [address] [id number] [address] [place] [address] Jun, [facility] [address] [facility] [id number] [address] [place] [address] Apr, [facility] [address] [facility] [id number] [address] [place] [address] Mar, IMMUNIZATIONS No Known Immunizations SOCIAL HISTORY [...]
--- OUTSIDE RECORDS SUMMARY | 2020-03-18 15:23 | XMS REPORT ---
Author Author Araseli George Doctor Organization [facility] Address Unknown Phone Unavailable Care Team Providers Care President Practicing Urologist Name Role Phone Migration, Doctor Unavailable Unavailable PROBLEMS Type Condition ICD9-CM Code [id number] Code Onset Dates Condition S tatus SNOMED Code Problem Hypertension, benign I10 Active 92538468 Problem Other chronic pain G89.29 Active 8 5871560 Problem Lumbago with sciatica, unspecified side M54.40 Active 496254692 Problem Controlled type 2 diabetes m ellitus without complication, without long- term current use of insulin E11.9 Active 200200680 Problem Lumbago with sciatica, right side M54.41 Active 816468796 Problem Adjustment disorder with disturbance of emotion F4 3.29 Active 05145511 Problem MELE (obstructive sleep apnea) G47.33 Active 00337083 Problem Non morbid obesity E66.9 Active 4 02626834 Problem Hammer toe of left foot M20.42 Active 914169921 Problem Mood disorder F39 Active 993334 05 Problem Deformity of left foot M21.962 Active 539738199 Problem Lumbago with sciatica, left side M54.42 Active 469242599 Problem Erectile dysfunction due to diseases classified elsewhere N52.1 Active 132706214 Problem Obstructive sleep apnea syndrome G47.33 Active 71202179 Problem Type 2 diabetes mellitus wit h diabetic neuropathy, without long-term current use of insulin E11.40 Active 81190 006 Problem Essential hypertension I10 Active 35362086 ALLERGIES No Information ENCOUNTERS Encounter Location Date Diagnosis [facility] [address] [facility] [id number] [address] [place] [id number] May, Type 2 diabetes mellitus wit h diabetic neuropathy, without long- term current use of insulin E11.40 and Hammer toe of left foot M20.42 [facility] [address] [facility] [id number] [address] [place] [id number] May, [facility] [address] [place] [id number] [address] [place] [id number] May, [facility] [address] [facility] [id number] [address] [place] [id number] May, [facility] [address] [facility] [id number] [address] [place] [id number] Apr, Lumbago with sciatica, unspe cified side M54.40 [facility] [address] [facility] [id number] [address] [place] [id number] Apr, [facility] [address] [facility] [id number] [address] [place] [id number] Apr, [address] [address] Apr, Hammer toe of left foot M20.42 ; Chest p ain R07.9 ; Preoperative examination Z01.818 and Morbid obesity E66.01 [facility] [address] [place] [id number] [address] [place] [id number] Apr, Morbid obesity E66.01 ; Bron chitis J40 and High risk medications (not anticoagulants) long-term use Z79.899 [facility] [address] [place] [id number] [address] [place] [id number] Apr, Lumbago with sciatica, unspe cified side M54.40 [facility] [address] [place] [id number] [address] [place] [id number] Apr, [facility] [address] [place] [id number] [address] [place] [id number] Mar, Lumbar neuritis M54.16 and M orbid obesity E66.01 [facility] [address] [facility] [id number] [address] [place] [id number] Mar, [facility] [address] [facility] [id number] [address] [place] [id number] Mar, [facility] [address] [facility] [id number] [address] [place] [id number] Mar, Lumbago with sciatica, unspe cified side M54.40 [facility] [address] [id number] [address] [place] [id number] Mar, Morbid obesity E66.01 ; Kassidyg marco R05 ; 2+ pitting edema R60.9 and Controlled type 2 diabetes mellitus without complication, without long-term current use of insulin E11.9 [facility] [address] [id number] [address] [place] [id number] Feb, [facility] [address] [id number] [address] [place] [id number] Feb, Lumbago with sciatica, unspe cified side M54.40 [facility] [address] [id number] [address] [place] [id number] Feb, [facility] [address] [id number] [address] [place] [id number] Feb, Controlled type 2 diabetes m ellitus without complication, without long-term current use of insulin E11.9 and Morbid obesity E66.01 [facility] [address] [id number] [address] [place] [id number] January, Deformity of left foot M21.9 62 [facility] [address] [id number] [address] [place] [id number] January, [facility] [address] [id number] [address] [place] [id number] January, Lumbago with sciatica, unspe cified side M54.40 [facility] [address] [id number] [address] [place] [id number] January, [facility] [address] [id number] [address] [place] [id number] January, Lumbago with sciatica, unspe cified side M54.40 [facility] [address] [id number] [address] [place] [id number] January, [facility] [address] [place] [id number] [address] [place] [address] January, Acute right-sided thoracic b ack pain M54.6 [place] [address] [place] [id number] [address] [place] [address] January, Acute right-sided thoracic b ack pain M54.6 [place] [address] [address] January, Chest pain, unspecified type R07.9 ; Morbid obesity E66.01 and Scabies B86 [place] [address] [place] [id number] [place] [address] Dec, Lumbago with sciatica, unspe cified side M54.40 [place] [address] [address] Dec, Toenail fungus B35.1 [facility] [address] [address] Dec, Toenail fungus B35.1 [place] [address] [address] Dec, Acute right-sided thoracic b ack pain M54.6 [place] [address] [place] [id number] [address] [place] [address] Dec, Lumbago with sciatica, unspe cified side M54.40 [facility] [address] [place] [id number] [address] [place] [address] Nov, Hammer toe of left foot M20. 42 ; Deformity of left foot M21.962 and Type 2 diabetes mellitus with diabetic neuropathy, without long-term current use of insulin E11.40 [facility] [address] [facility] [id number] [address] [place] [address] Nov, Acute right-sided thoracic b ack pain M54.6 ; Morbid obesity E66.01 and Rt flank pain R10.9 [facility] [address] [facility] [id number] [address] [place] [address] Nov, Lumbago with sciatica, unspe cified side M54.40 [facility] [address] [facility] [id number] [address] [place] [address] Oct, Lumbago with sciatica, unspe cified side M54.40 [place] [address] [place] [id number] [address] [place] [address] Sep, Lumbago with sciatica, unspe cified side M54.40 [place] [address] [place] [id number] [address] [place] [address] Sep, [place] [address] [place] [id number] [place] [address] Sep, BMI 40.0-44.9, adult Z68.41 ; Lumbago with sciatica, left side M54.42 ; Lumbago with sciatica, right side M54.41 and Other chronic pain G89.29 [place] [address] [place] [id number] [address] [place] [address] Aug, Lumbago with sciatica, unspe cified side M54.40 [place] [address] [place] [id number] [address] [place] [address] Aug, Type 2 diabetes mellitus wit h diabetic neuropathy, without long- term current use of insulin E11.40 ; Hammer toe of left foot M20.42 ; Hypertension, benign I10 and Frequent headaches R51 [place] [id number] [facility] [id number] [address] [place] [address] Jul, Lumbago with sciatica, unspe cified side M54.40 [place] [address] [place] [id number] [address] [place] [address] Jul, [place] [address] [place] [id number] [address] [place] [address] Jul, Essential hypertension I10 a nd Controlled type 2 diabetes mellitus without complication, without long-term current use of insulin E11.9 [facility] [address] [facility] [id number] [address] [place] [address] Jul, Essential hypertension I10 ; Controlled type 2 diabetes mellitus without complication, without long-term current use of insulin E11.9 and BMI 40.0-44.9, adult Z68.41 [facility] [address] [id number] [address] [place] [address] Jul, Dysfunction of left eustachi an tube H69.82 [facility] [address] [id number] [address] [place] [id number] Jul, Lumbago with sciatica, unspe cified side M54.40 [facility] [address] [id number] [address] [place] [address] [id number] Jun, Dental examination Z01.20 [facility] [address] [facility] [id number] [address] [place] [id number] Jun, Lumbago with sciatica, unspe cified side M54.40 and Encounter for immunization Z23 [facility] [address] [id number] [address] [place] [address] Jun, Dysfunction of left eustachi an tube H69.[address] [place] [id number] [place] [address] [id number] Jun, Dental examination Z01.20 [facility] [address] [id number] [address] [place] [address] Jun, Other chronic pain G89.29 [facility] [address] [id number] [address] [place] [address] [id number] Jun, Dental examination Z01.20 [facility] [address] [id number] [address] [place] [address] Jun, [facility] [address] [id number] [address] [place] [address] Jun, Bronchitis J40 ; Dysfunction of left eustachian tube H69.82 and BMI 45.0-49.9, adult Z68.42 [facility] [address] [place] [id number] [address] [place] [address] Jun, Lumbago with sciatica, unspe cified side M54.40 [facility] [address] [place] [id number] [address] [place] [id number] May, Type 2 diabetes mellitus wit h diabetic neuropathy, without long- term current use of insulin E11.40 and Hypertension, benign I10 [facility] [address] [facility] [id number] [address] [place] [address] May, Lumbago with sciatica, unspe cified side M54.40 [facility] [address] [place] [id number] [address] [place] [address] Apr, [facility] [address] [address] Apr, Controlled type 2 diabetes m ellitus without complication, without long-term current use of insulin E11.9 ; Insect bite (nonvenomous), right ankle, initial encounter S90.561A ; Local infection of the skin and subcutaneous tissue, unspecified L08.9 ; Acute swimmer''s ear of left side H60.332 and BMI 45.0-49.9, adult Z68.42 [place] [id number] [place] [id number] [address] [place] [address] Apr, Lumbago with sciatica, unspe cified side M54.40 [place] [address] [facility] [id number] [address] [place] [address] Mar, [place] [address] [place] [id number] [address] [place] [address] Mar, Lumbago with sciatica, unspe cified side M54.40 [place] [address] [place] [id number] [address] [place] [address] Feb, Lumbago with sciatica, unspe cified side M54.40 [place] [address] [place] [id number] [address] [place] [address] Feb, BMI 45.0-49.9, adult Z68.42 and Obstructive sleep apnea syndrome G47.33 [place] [address] [place] [id number] [place] [address] January, Lumbar neuritis M54.16 [place] [address] [place] [id number] [place] [address] January, Lumbago with sciatica, unspe cified side M54.40 [place] [address] [place] [id number] [place] [address] Dec, Controlled type 2 diabetes m maribell without complication, without long-term current use of insulin E11.9 ; Erectile dysfunction due to diseases classified elsewhere N52.1 and Mood disorder F39 [place] [address] [address] Dec, Lumbago with sciatica, unspe cified side M54.40 [place] [address] [address] Dec, Obstructive sleep apnea synd luis G47.33 [place] [address] [place] [id number] [place] [address] Nov, Lumbago with sciatica, unspe cified side M54.40 ; Hypertension, benign I10 and Mood disorder F39 [place] [address] [place] [id number] [address] [place] [address] Nov, Other chronic pain G89.29 [place] [address] [place] [id number] [place] [address] Nov, Lumbago with sciatica, unspe cified side M54.40 [facility] [address] [id number] [address] [place] [address] [id number] 13 Nov, 2017 Dental examination Z01.20 [facility] [address] [place] [id number] [address] [place] [address] Oct, [facility] [address] [facility] [id number] [address] [place] [id number] Oct, Lumbago with sciatica, unspe cified side M54.40 [facility] [address] [facility] [id number] [address] [place] [address] Oct, Lumbago with sciatica, unspe cified side M54.40 [facility] [address] [facility] [id number] [address] [place] [id number] Oct, [facility] [address] [facility] [id number] [address] [place] [id number] Oct, [facility] [address] [facility] [id number] [address] [place] [address] [id number] Oct, Dental examination Z01.20 [facility] [address] [facility] [id number] [address] [place] [address] Oct, [facility] [address] [facility] [id number] [address] [place] [address] Oct, Pain in right knee M25.561 [facility] [address] [facility] [id number] [address] [place] [address] Sep, [facility] [address] [facility] [id number] [address] [place] [address] Sep, Other chronic pain G89.29 [facility] [address] [facility] [id number] [address] [place] [address] Sep, Lumbago with sciatica, unspe cified side M54.40 [facility] [address] [facility] [id number] [address] [place] [address] Sep, [facility] [address] [facility] [id number] [address] [place] [address] Sep, Viral URI J06.9 and BMI 45.0 -49.9, adult Z68.42 [facility] [address] [facility] [id number] [address] [place] [address] Aug, Foreign body hand S60.559A a nd BMI 45.0-49.9, adult Z68.42 [facility] [address] [facility] [id number] [address] [place] [address] Aug, [facility] [address] [place] [id number] [address] [place] [address] Aug, Lumbago with sciatica, unspe cified side M54.40 [facility] [address] [facility] [id number] [address] [place] [address] Aug, Vertigo R42 ; Dysfunction of both eustachian tubes H69.83 ; Low back pain M54.5 and Other chronic pain G89.29 [facility] [address] [facility] [id number] [address] [place] [address] Aug, Dizziness R42 and Acute bila teral otitis media H66.93 [facility] [address] [facility] [id number] [address] [place] [address] Aug, Lumbago with sciatica, unspe cified side M54.40 [facility] [address] [facility] [id number] [address] [place] [address] [id number] Jul, Dental examination Z01.20 [place] [address] [facility] [id number] [address] [place] [id number] Jul, [facility] [address] [facility] [id number] [address] [place] [address] Jul, [place] [address] [facility] [id number] [address] [place] [id number] 16 Jul, 2017 Dysfunction of both eustachi an tubes H69.83 [facility] [address] [facility] [id number] [address] [place] [id number] 07 Jul, 2017 Controlled type 2 diabetes m ellitus without complication, without long-term current use of insulin E11.9 [place] [address] [id number] [address] [place] [address] Jul, Controlled type 2 diabetes m ellitus without complication, without long-term current use of insulin E11.9 [facility] [address] [facility] [id number] [address] [place] [address] Jul, Dizziness R42 and BMI 40.0-4 4.9, adult Z68.41 [facility] [address] [facility] [id number] [address] [place] [id number] Jul, Controlled type 2 diabetes m ellitus without complication, without long-term current use of insulin E11.9 [place] [address] [facility] [id number] [address] [place] [address] Jul, Lumbago with sciatica, unspe cified side M54.40 [facility] [id number] [place] [address] [id number] Jul, Dental examination Z01.20 [facility] [address] [id number] [address] [place] [address] Jun, [facility] [address] [place] [address] [id number] Jun, Dental examination Z01.20 [facility] [address] [facility] [id number] [address] [place] [id number] Jun, Controlled type 2 diabetes m ellitus without complication, without long-term current use of insulin E11.9 [facility] [address] [facility] [id number] [address] [place] [id number] Jun, Lumbago with sciatica, unspe cified side M54.40 [facility] [id number] [place] [address] [id number] May, Dental examination Z01.20 [facility] [address] [id number] [address] [place] [address] May, Controlled type 2 diabetes m ellitus without complication, without long-term current use of insulin E11.9 [facility] [address] [id number] [address] [place] [address] [id number] May, Dental examination Z01.20 [facility] [address] [facility] [id number] [place] [id number] 18 May, 2017 Bronchitis J40 ; Dry mouth R 68.2 ; Non morbid obesity E66.9 and Controlled type 2 diabetes mellitus without complication, without long-term current use of insulin E11.9 [facility] [address] [facility] [id number] [address] [place] [id number] 16 May, 2017 Encounter for immunization Z 23 [place] [address] [facility] [id number] [place] [phone] 07 May, 2017 Lumbago with sciatica, unspe cified side M54.40 [place] [address] [place] [id number] [place] [phone] 05 May, 2017 [facility] [address] [facility] [id number] [id number] Apr, Dental examination Z01.20 [facility] [address] [facility] [id number] [address] [place] [address] Apr, Lumbago with sciatica, unspe cified side M54.40 [facility] [address] [facility] [id number] [address] [place] [address] Mar, Lumbago with sciatica, left side M54.42 [facility] [address] [facility] [id number] [address] [place] [address] Mar, [facility] [address] [facility] [id number] [address] [place] [id number] Mar, Lumbar neuritis M54.16 [facility] [address] [facility] [id number] [address] [place] [id number] Mar, [facility] [address] [facility] [id number] [place] [id number] Mar, Dental examination Z01.20 [place] [address] [place] [id number] [address] [place] [phone] Mar, MELE (obstructive sleep apnea ) G47.33 ; Neuropathy involving both lower extremities G57.93 and Frequent headaches R51 [place] [address] [facility] [id number] [address] [place] [id number] Mar, Lumbago with sciatica, unspe cified side M54.40 [place] [address] [place] [id number] [address] [place] [id number] Feb, Lumbago with sciatica, unspe cified side M54.40 and Controlled type 2 diabetes mellitus without complication, without long-term current use of insulin E11.9 [place] [address] [place] [id number] [address] [place] [id number] January, Hypertension, benign I10 and Bilateral low back pain with sciatica, sciatica laterality unspecified M54.40 [place] [address] [place] [id number] [address] [place] [phone] January, Hypertension, benign I10 ; L umbago with sciatica, unspecified side M54.40 ; Other chronic pain G89.29 and Controlled type 2 diabetes mellitus without complication, without long-term current use of insulin E11.9 [place] [address] [place] [id number] [address] [place] [phone] January, Lumbar neuritis M54.16 [place] [address] [place] [id number] [address] [place] [address] January, [place] [address] [place] [id number] [address] [place] [id number] Dec, Lumbago with sciatica, right side M54.41 and Lumbar neuritis M54.16 [place] [address] [place] [id number] [address] [place] [id number] Dec, Lumbar neuritis M54.16 [place] [address] [place] [id number] [address] [place] [id number] Dec, Lumbar neuritis M54.16 [place] [id number] N [facility] [id number] [address] [place] [address] Nov, Lumbar neuritis M54.16 ; Lum bago with sciatica, right side M54.41 ; Controlled type 2 diabetes mellitus without complication, without long-term current use of insulin E11.9 and Rash and nonspecific skin eruption R21 [place] [address] [place] [id number] [address] [place] [address] Nov, Lumbar neuritis M54.16 and P alexi miroslava L23.7 [place] [address] [place] [id number] [address] [place] [id number] Oct, Lumbar neuritis M54.16 ; Cou ghing R05 and Mood disorder F39 [place] [address] [place] [id number] [address] [place] [id number] Sep, Lumbago with sciatica, right side M54.41 [place] [id number] [place] [address] Sep, Adjustment disorder with dis turbance of emotion F43.29 and Pain management R52 [place] [address] [place] [id number] [address] [place] [id number] Sep, [place] [address] [place] [id number] [address] [place] [id number] Sep, [place] [address] [place] [id number] [address] [place] [id number] Sep, Controlled type 2 diabetes evens reyna without complication, without long-term current use of insulin E11.9 and Lumbago with sciatica, unspecified side M54.40 [place] [address] [place] [id number] [address] [place] [id number] Aug, Controlled type 2 diabetes evens reyna without complication, without long-term current use of insulin E11.9 ; Pain in right knee M25.561 ; Pain in left knee M25.562 ; Other chronic pain G89.29 ; Lumbago with sciatica, right side M54.41 ; Neck pain M54.2 and Encounter for immunization Z23 [facility] [address] [id number] [address] [place] [id number] Jul, [facility] [address] [id number] [address] [place] [id number] Jul, Controlled type 2 diabetes m maribell without complication, without long-term current use of insulin E11.9 [facility] [address] [id number] [address] [place] [id number] 17 Jul, 2016 [facility] [address] [id number] [address] [place] [id number] Jul, [facility] [address] [id number] [address] [place] [id number] Jul, Lumbago with sciatica, left side M54.42 ; Lumbago with sciatica, right side M54.41 and Other chronic pain G89.29 [facility] [address] [id number] [address] [place] [address] Jul, [facility] [address] [id number] [address] [place] [id number] Jul, [facility] [address] [id number] [address] [place] [id number] Jun, [facility] [address] [id number] [address] [place] [id number] Jun, Lumbago with sciatica, right side M54.41 and Other chronic pain G89.29 [facility] [address] [id number] [address] [place] [id number] Jun, Cervicalgia M54.2 ; Lumbago with sciatica, unspecified side M54.40 and Other chronic pain G89.29 [facility] [address] [id number] [address] [place] [id number] 15 May, 2016 Pain in right knee M25.561 ; Pain in left knee M25.562 and Other chronic pain G89.29 [facility] [address] [id number] [address] [place] [id number] May, [facility] [address] [id number] [address] [place] [address] Apr, Other chronic pain G89.29 an d Pain in right knee M25.561 [facility] [address] [id number] [address] [place] [address] Apr, Pain in right knee M25.561 [facility] [address] [id number] [address] [place] [id number] Mar, [facility] [address] [id number] [address] [place] [id number] Mar, Mood disorder F39 and Contro lled type 2 diabetes mellitus without complication, without long-term current use of insulin E11.9 [facility] [address] [id number] [address] [place] [address] Mar, Pain in right knee M25.561 ; Pain in left knee M25.562 ; Other chronic pain G89.29 ; Obstructive sleep apnea syndrome G47.33 ; Mood disorder F39 and Controlled type 2 diabetes mellitus without complication, without long- term current use of insulin E11.9 [facility] [address] [id number] [address] [place] [id number] Mar, [facility] [address] [id number] [address] [place] [id number] Feb, Dental examination Z01.20 [facility] [address] [id number] [address] [place] [address] Feb, [facility] [address] [id number] [address] [place] [address] Feb, Osteoarthritis of right knee , unspecified osteoarthritis type M17.9 [facility] [address] [id number] [address] [place] [id number] January, [facility] [address] [id number] [address] [place] [address] [id number] January, Dental examination Z01.20 [facility] [address] [id number] [address] [place] [id number] January, [facility] [address] [id number] [address] [place] [address] [id number] January, Dental examination Z01.20 an d Caries K02.9 [facility] [address] [id number] [address] [place] [address] Dec, Encounter for other preproce dural examination Z01.818 [facility] [address] [id number] [address] [place] [address] Dec, [facility] [address] [id number] [address] [place] [id number] Dec, Knee pain M25.569 [facility] [address] [id number] [address] [place] [id number] Dec, Pain in right knee M25.561 [facility] [address] [id number] [address] [place] [id number] Dec, [facility] [address] [id number] [address] [place] [id number] Dec, [facility] [address] [id number] [address] [place] [id number] Dec, Encounter for immunization Z 23 [facility] [address] [id number] [address] [place] [id number] Dec, [facility] [address] [id number] [address] [place] [address] Dec, [facility] [address] [id number] [address] [place] [id number] Nov, [facility] [address] [id number] [address] [place] [address] Nov, Hypertension, benign I10 ; C ervicalgia M54.2 ; Pain in right knee M25.561 and Pain in left knee M25.562 [place] [id number] [facility] [id number] [address] [place] [id number] Oct, [facility] [address] [facility] [id number] [address] [place] [id number] Oct, [facility] [address] [facility] [id number] [address] [place] [id number] Oct, Osteoarthritis of both knees M17.0 [place] [address] [facility] [id number] [address] [place] [address] Oct, [place] [address] [facility] [id number] [address] [place] [id number] Oct, Low back pain M54.5 [place] [address] [place] [id number] [address] [place] [id number] Oct, Low back pain M54.5 ; Sciati ca, unspecified side M54.30 ; Pain in right knee M25.561 ; Pain in left knee M25.562 ; Pain in right shoulder M25.511 and Pain in left shoulder M25.512 [place] [address] [facility] [id number] [address] [place] [address] Oct, [place] [address] [facility] [id number] [address] [place] [id number] Sep, Pain in right hip M25.551 [place] [address] [facility] [id number] [address] [place] [id number] Sep, Acute upper respiratory infe ction, unspecified J06.9 [place] [address] [place] [id number] [address] [place] [id number] Aug, Acute upper respiratory infe ction, unspecified J06.9 and Other viral agents as the cause of diseases classified elsewhere B97.89 [place] [address] [facility] [id number] [address] [place] [id number] Jul, Arthritis M19.90 [facility] [address] [id number] [address] [place] [address] Jun, Arthritis M19.90 ; Pain in r ight hip M25.551 ; Pain in left hip M25.552 ; Bilateral low back pain with sciatica, sciatica laterality unspecified M54.40 ; Neck pain M54.2 ; Upper back pain M54.9 and Knee pain, unspecified laterality M25.569 [facility] [address] [id number] [address] [place] [address] May, Osteoarthritis of both knees 715.96 [facility] [address] [id number] [address] [place] [address] May, Rash 782.1 [place] [address] [facility] [id number] [address] [place] [id number] Apr, Lumbar strain 847.2 [place] [address] [id number] [address] [place] [id number] Apr, Rash 782.1 [facility] [address] [facility] [id number] [address] [place] [id number] Mar, Rash 782.1 [facility] [address] [facility] [id number] [address] [place] [address] Feb, Rash 782.1 ; Hemorrhoids 455 .6 and Constipation 564.00 [place] [address] [id number] [address] [place] [id number] Feb, Osteoarthritis of both knees 715.96 [facility] [address] [id number] [address] [place] [id number] January, [facility] [address] [facility] [id number] [address] [place] [id number] Dec, [facility] [address] [facility] [id number] [address] [place] [id number] Dec, [facility] [address] [facility] [id number] [address] [place] [id number] 13 Dec, 2014 [facility] [address] [id number] [address] [place] [address], [place] [id number] 18 Nov, 2014 [facility] [address] [id number] [address] [place] [address], [place] [address] 18 Nov, 2014 [facility] [address] [id number] [address] [place] [address], [place] [address] 18 Nov, 2014 [facility] [address] [id number] [address] [place] [address], [place] [address] 18 Nov, 2014 [facility] [address] [id number] [address] [place] [address], [place] [address] Nov, [facility] [address] [id number] [address] [place] [address], [place] [address] Nov, [facility] [address] [id number] [address] [place] [address], [place] [address] Oct, [facility] [address] [id number] [address] [place] [address], [place] [address] Oct, [facility] [address] [id number] [address] [place] [address], [place] [address] Oct, 2014 [facility] [address] [id number] [address] [place] [address], [place] [address] Oct, [facility] [address] [id number] [address] [place] [address], [place] [address] Oct, 2014 [facility] [address] [id number] [address] [place] [id number] Oct, 2014 [facility] [address] [id number] [address] [place] [address], [place] [address] Oct, 2014 [facility] [address] [id number] [address] [place] [id number] Oct, 2014 [facility] [address] [id number] [address] [place] [id number] 12 Oct, 2014 [facility] [address] [id number] [address] [place] [address], [place] [address] Oct, [facility] [address] [id number] [address] [place] [address], [place] [address] Oct, [facility] [address] [id number] [address] [place] [address], [place] [address] Sep, [facility] [address] [id number] [address] [place] [address], [place] [address] Sep, [facility] [address] [id number] [address] [place] [address], [place] [address] Sep, [facility] [address] [id number] [address] [place] [address], [place] [address] Sep, [facility] [address] [id number] [address] [place] [address], [place] [address] Sep, [facility] [address] [id number] [address] [place] [address], [place] [address] Sep, [facility] [address] [id number] [address] [place] [address], [place] [address] Aug, [facility] [address] [id number] [address] [place] [address], [place] [address] Aug, [facility] [address] [id number] [address] [place] [address], [place] [address] Aug, [facility] [address] [id number] [address] [place] [address], [place] [address] Aug, [facility] [address] [id number] [address] [place] [address], [place] [address] Aug, [facility] [address] [id number] [address] [place] [address], [place] [address] Aug, [facility] [address] [id number] [address] [place] [address], [place] [address] 05 Aug, 2014 [facility] [address] [id number] [address] [place] [address] [place] [address] Aug, [facility] [address] [id number] [address] [place] [address], [place] [address] Aug, [facility] [address] [id number] [address] [place] [address], [place] [address] Aug, [facility] [address] [id number] [address] [place] [address], [place] [address] Jul, [facility] [address] [id number] [address] [place] [address], [place] [address] Jul, [facility] [address] [id number] [address] [place] [address], [place] [address] Jul, [facility] [address] [id number] [address] [place] [address], [place] [address] Jul, [facility] [address] [id number] [address] [place] [address], [place] [address] Jun, [facility] [address] [id number] [address] [place] [address], [place] [address] Jun, [facility] [address] [id number] [address] [place] [address], [place] [address] Jun, [facility] [address] [id number] [address] [place] [address], [place] [address] Jun, [facility] [address] [id number] [address] [place] [address], [place] [address] Jun, [facility] [address] [id number] [address] [place] [address] Jun, [facility] [address] [id number] [address] [place] [address], [place] [address] Jun, [facility] [address] [id number] [address] [place] [address], [place] [address] Jun, [facility] [address] [id number] [address] [place] [id number] May, [facility] [address] [id number] [facility] [place] [address] 24 May, 2013 [facility] [address] [id number] [facility] [place] [address] 19 May, 2013 [facility] [address] [id number] [facility] [place] [address] 19 May, 2013 [facility] [address] [id number] [address] [place] [address], [place] [address] 15 May, 2013 [facility] [address] [id number] [address] [place] [address], [place] [address] 15 May, 2013 [facility] [address] [id number] [address] [place] [address], [place] [address] 15 May, 2014 [facility] [address] [id number] [address] [place] [address], [place] [address] 15 May, 2014 [facility] [address] [id number] [address] [place] [address], [place] [address] Apr, [facility] [address] [id number] [address] [place] [address], [place] [address] Apr, [facility] [address] [id number] [address] [place] [address], [place] [address] Apr, [facility] [address] [id number] [address] [place] [address], [place] [address] Apr, [facility] [address] [id number] [address] [place] [address], [place] [address] Apr, [facility] [address] [id number] [address] [place] [address], [place] [address] Apr, [facility] [address] [id number] [address] [place] [address], [place] [address] Apr, [facility] [address] [id number] [address] [place] [address], [place] [address] Apr, [facility] [address] [id number] [address] [place] [address], [place] [address] Apr, [facility] [address] [id number] [facility] [place] [address] Apr, [facility] [address] [id number] [address] [place] [address], [place] [address] Apr, [facility] [address] [id number] [address] [place] [address], [place] [address] Apr, [facility] [address] [id number] [address] [place] [address], [place] [address] Mar, [facility] [address] [id number] [address] [place] [address], [place] [address] Mar, [facility] [address] [id number] [address] [place] [address], [place] [address] Mar, [facility] [address] [id number] [address] [place] [address], [place] [address] Mar, [facility] [address] [id number] [address] [place] [address], [place] [address] Mar, [facility] [address] [id number] [address] [place] [address], [place] [address] Mar, [facility] [address] [id number] [address] [place] [address], [place] [address] Feb, [facility] [address] [id number] [address] [place] [address], [place] [address] Feb, [facility] [address] [id number] [address] [place] [address], [place] [address] Feb, [facility] [address] [id number] [address] [place] [address], [place] [address] Feb, [facility] [address] [id number] [address] [place] [address], [place] [address] Feb, [facility] [address] [id number] [address] [place] [address], [place] [address] Feb, [facility] [address] [id number] [facility] [place] [address] Feb, [facility] [address] [id number] [address] [place] [address], [place] [address] Feb, [facility] [address] [id number] [address] [place] [address], [place] [address] Feb, [facility] [address] [id number] [address] [place] [address], [place] [address] Feb, [facility] [address] [id number] [address] [place] [address], [place] [address] Feb, [facility] [address] [id number] [address] [place] [address], [place] [address] Feb, [facility] [address] [id number] [address] [place] [address], [place] [address] Feb, [facility] [address] [id number] [address] [place] [address], [place] [address] Feb, [facility] [address] [id number] [address] [place] [address], [place] [address] January, [facility] [address] [id number] [address] [place] [address], [place] [address] January, [facility] [address] [id number] [address] [place] [address], [place] [address] January, [facility] [address] [id number] [address] [place] [address], [place] [address] January, [facility] [address] [id number] [address] [place] [address], [place] [address] January, [facility] [address] [id number] [address] [place] [address], [place] [address] January, [facility] [address] [id number] [address] [place] [address], [place] [address] Dec, [facility] [address] [id number] [address] [place] [address], [place] [address] Dec, [facility] [address] [id number] [address] [place] [address], [place] [address] Dec, [facility] [address] [id number] [address] [place] [address], [place] [address] Dec, [facility] [address] [id number] [address] [place] [address], [place] [address] Dec, [facility] [address] [id number] [address] [place] [address], [place] [address] Dec, [facility] [address] [id number] [address] [place] [address], [place] [address] Dec, [facility] [address] [id number] [address] [place] [address], [place] [address] Dec, [facility] [address] [id number] [address] [place] [address], [place] [address] Nov, [facility] [address] [id number] [address] [place] [address], [place] [address] Nov, [facility] [address] [id number] [address] [place] [address], [place] [address] Nov, [facility] [address] [id number] [address] [place] [address], [place] [address] Nov, [facility] [address] [id number] [address] [place] [address], [place] [address] Nov, [facility] [address] [id number] [address] [place] [address], [place] [address] Nov, [facility] [address] [id number] [address] [place] [address], [place] [address] Nov, [facility] [address] [id number] [address] [place] [address], [place] [address] Nov, [facility] [address] [id number] [address] [place] [address], [place] [address] Oct, [facility] [address] [id number] [address] [place] [address], [place] [address] Oct, [facility] [address] [id number] [address] [place] [address], [place] [address] Oct, [facility] [address] [id number] [address] [place] [address], [place] [address] Oct, [facility] [address] [id number] [address] [place] [address], [place] [address] Oct, [facility] [address] [id number] [address] [place] [address], [place] [address] Oct, [facility] [address] [id number] [address] [place] [address], [place] [address] Oct, [facility] [address] [id number] [address] [place] [address], [place] [address] Oct, [facility] [address] [id number] [address] [place] [address], [place] [address] Oct, [facility] [address] [id number] [address] [place] [address], [place] [address] Oct, [facility] [address] [id number] [address] [place] [address], [place] [address] Sep, [facility] [address] [id number] [address] [place] [address], [place] [address] Sep, [facility] [address] [id number] [address] [place] [address], [place] [address] Sep, [facility] [address] [id number] [address] [place] [address], [place] [address] Sep, [facility] [address] [id number] [address] [place] [address], [place] [address] Sep, [facility] [address] [id number] [address] [place] [address], [place] [address] Sep, [facility] [address] [id number] [address] [place] [address], [place] [address] Aug, [facility] [address] [id number] [address] [place] [address], [place] [address] Aug, [facility] [address] [id number] [address] [place] [address], [place] [address] Aug, [facility] [address] [id number] [address] [place] [address], [place] [address] Aug, [facility] [address] [id number] [address] [place] [address], [place] [address] Aug, [facility] [address] [id number] [address] [place] [address], [place] [address] Aug, [facility] [address] [id number] [address] [place] [address], [place] [address] Aug, [facility] [address] [id number] [address] [place] [address], [place] [address] Aug, [facility] [address] [id number] [address] [place] [id number] Jul, [facility] [address] [id number] [address] [place] [address], [place] [address] Jul, [facility] [address] [id number] [address] [place] [address] Jul, [facility] [address] [id number] [address] [place] [address] Jul, [facility] [address] [id number] [address] [place] [id number] Jul, [facility] [address] [id number] [address] [place] [address] Jul, [facility] [address] [id number] [address] [place] [address] Jun, [facility] [address] [id number] [address] [place] [id number] Jun, [facility] [address] [id number] [address] [place] [address] Jun, [facility] [address] [id number] [address] [place] [address], [place] [address] May, [facility] [address] [id number] [address] [place] [address], [place] [address] May, [facility] [address] [id number] [address] [place] [address], [place] [address] May, [facility] [address] [id number] [address] [place] [address], [place] [address] Apr, [facility] [address] [id number] [address] [place] [address], [place] [address] Apr, [facility] [address] [id number] [address] [place] [address], [place] [address] Apr, [facility] [address] [id number] [address] [place] [address], [place] [address] Apr, [facility] [address] [id number] [address] [place] [address], [place] [address] Mar, [facility] [address] [id number] [address] [place] [address], [place] [address] Mar, [facility] [address] [id number] [address] [place] [address], [place] [address] Mar, [facility] [address] [id number] [address] [place] [address], [place] [address] Mar, [facility] [address] [id number] [address] [place] [address], [place] [address] Feb, [facility] [address] [id number] [address] [place] [address], [place] [address] Feb, [facility] [address] [id number] [address] [place] [address], [place] [address] Feb, [facility] [address] [id number] [address] [place] [address], [place] [address] Feb, [facility] [address] [id number] [address] [place] [address], [place] [address] January, [facility] [address] [id number] [address] [place] [address], [place] [address] January, [facility] [address] [id number] [address] [place] [address], [place] [address] January, [facility] [address] [id number] [address] [place] [address], [place] [address] Nov, [facility] [address] [id number] [address] [place] [address], [place] [address] Nov, [facility] [address] [id number] [address] [place] [address], [place] [address] Oct, [facility] [address] [id number] [address] [place] [address], [place] [address] Oct, [facility] [address] [id number] [address] [place] [address], [place] [address] Oct, [facility] [address] [id number] [address] [place] [address], [place] [address] Oct, [facility] [address] [id number] [address] [place] [address], [place] [address] Sep, [facility] [address] [id number] [address] [place] [address], [place] [address] Sep, [facility] [address] [id number] [address] [place] [address], [place] [address] Sep, [facility] [address] [id number] [address] [place] [address], [place] [address] Aug, [facility] [address] [id number] [address] [place] [address], [place] [address] Aug, [facility] [address] [id number] [address] [place] [address], [place] [address] Aug, [facility] [address] [id number] [address] [address] Aug, [facility] [address] [id number] [address] [place] [address], [place] [address] Aug, [facility] [address] [id number] [address] [place] [address], [place] [address] Aug, [facility] [address] [id number] [address] [place] [address], [place] [address] Jul, [facility] [address] [id number] [address] [place] [address] Jul, [facility] [address] [id number] [address] [place] [address], [place] [address] Jun, [facility] [address] [id number] [address] [place] [address], [place] [address] Jun, [facility] [address] [id number] [address] [place] [address], [place] [address] Jun, [facility] [address] [id number] [address] [place] [address], [place] [address] Apr, [facility] [address] [id number] [address] [place] [address], [place] [address] Apr, [facility] [address] [id number] [address] [place] [address], [place] [address] Mar, [facility] [address] [id number] [address] [place] [address], [place] [address] Mar, [facility] [address] [id number] [address] [place] [address] Mar, [facility] [address] [id number] [address] [place] [address], [place] [address] Mar, [facility] [address] [id number] [address] [place] [address], [place] [address] Feb, [facility] [address] [id number] [address] [place] [address], [place] [address] Feb, [facility] [address] [id number] [address] [place] [address], [place] [address] Feb, [facility] [address] [id number] [address] [place] [address], [place] [address] January, [facility] [address] [id number] [address] [place] [address], [place] [address] January, [facility] [address] [id number] [address] [place] [address], [place] [address] January, [facility] [address] [id number] [address] [place] [address], [place] [address] January, [facility] [address] [id number] [address] [place] [address], [place] [address] Dec, [facility] [address] [id number] [address] [place] [address], [place] [address] Dec, [facility] [address] [id number] [address] [place] [address], [place] [address] Nov, [facility] [address] [id number] [address] [place] [address], [place] [address] Nov, [facility] [address] [id number] [address] [place] [address], [place] [address] Oct, [facility] [address] [id number] [address] [place] [address], [place] [address] Oct, [facility] [address] [id number] [address] [place] [address], [place] [address] Sep, [facility] [address] [id number] [address] [place] [address], [place] [address] Sep, [facility] [address] [id number] [address] [place] [address], [place] [address] Sep, [facility] [address] [id number] [address] [place] [address], [place] [address] Sep, [facility] [address] [id number] [address] [place] [address], [place] [address] Aug, [facility] [address] [id number] [address] [place] [id number] 16 Aug, [facility] [address] [id number] [address] [place] [address], [place] [address] Aug, [facility] [address] [id number] [address] [place] [address] Jul, [facility] [address] [id number] [address] [place] [address], [place] [address] Aug, [facility] [address] [id number] [address] [place] [address], [place] [address] Aug, [facility] [address] [id number] [address] [place] [address], [place] [address] Aug, [facility] [address] [id number] [address] [place] [address], [place] [address] Aug, [facility] [address] [id number] [address] [place] [id number] Jul, [facility] [address] [id number] [address] [place] [address] Jul, [facility] [address] [id number] [address] [place] [address] Jul, [facility] [address] [id number] [address] [place] [id number] Jun, [facility] [address] [id number] [address] [place] [address] Jun, [facility] [address] [id number] [address] [place] [id number] Jun, [facility] [address] [id number] [address] [place] [id number] Apr, [facility] [address] [id number] [address] [place] [id number] Mar, IMMUNIZATIONS No Known Immunizations SOCIAL HISTORY Never Assessed REASON FOR VISIT PLAN OF CARE VITAL SIGNS Blood pressure systolic 142 mmHg 2014-06-20 Blood pressure diastolic 84 mmHg 2014-06-20 MEDICATIONS Unknown Medications RESULTS No Results PROCEDURES Procedure Date Ordered Result Body Site INJ METHYLPRDNISOLONE ACTAT 80 MG Jun 20, 2014 DRAIN/INJECT, JOINT/BURSA Jun 20, 2014 INSTRUCTIONS MEDICATIONS ADMINISTERED No Known Medications [...]
--- OUTSIDE RECORDS SUMMARY | 2020-03-18 15:24 | XMS REPORT | Continuity of Care Document ---
Demographics Preferred Language Unknown Marital Status Unknown Rastafarian Affiliation Unknown Race Unknown Ethnic Group Unknown Author Organization Unknown Address Unknown Phone Unavailable Allergies Active Description Code Type Severity Reaction Onset Reported/Identified Relationship to Patient Clinical Status Yes No Known Drug Allergies [id number] Drug Allergy Unknown N/A 05/22/2016 Medications There is no data. Problems Date Dx Coded Attending Type Code Diagnosis Diagnosed By CELESTE MONCADA, FALLON Cintron Ot Z47 .1 AFTERCARE FOLLOWING JOINT REPLACEMENT MONTOYA FALLON ALONSO MD, Ot Z96.651 PRESENCE OF RIGHT ARTIFICIAL KNEE JOINT FALLON ALONSO MD, Ot M54.16 RADICULOPATHY, LUMBAR REGION FALLON ALONSO MD, Ot Z96.653 PRESENCE OF ARTIFICIAL KNEE JOINT, BILAT 01/27/[address] PAIN NOS 01/27/2012 Ot 786.52 FAWN NFUL RESPIRATION 01/19/2016 FALLON ALONSO MD Ot M17.12 UNILATERAL PRIMARY OSTEOARTHRITIS, LEFT 01/24/2016 FALLON ALONSO MD, Ot M17.12 UNILATERAL PRIMARY OSTEOARTHRITIS, LEFT 01/24/2016 HARDY MONCADA, JENNIFER Ryan Ot R06.00 DYSPNEA, UNSPECIFIED 01/26/2016 JENNIFER DASH MD Ot R06.00 DYSPNEA, UNSPECIFIED 01/28/2016 FALLON ALONSO MD Ot M17.12 UNILATERAL PRIMARY OSTEOARTHRITIS, LEFT 01/28/2016 FALLON ALONSO MD Ot Z01.812 ENCOUNTER FOR PREPROCEDURAL LABORATORY E 01/28/2016 FALLON ALONSO MD Ot Z11.2 ENCOUNTER FOR SCREENING FOR OTHER BACTER 01/29/2016 FALLON ALONSO MD Ot M17.12 UNILATERAL PRIMARY OSTEOARTHRITIS, LEFT 01/29/2016 FALLON ALONSO MD Ot Z01.812 ENCOUNTER FOR PREPROCEDURAL LABORATORY E 01/29/2016 FALLON ALONSO MD Ot Z11.2 ENCOUNTER FOR SCREENING FOR OTHER BACTER 02/02/2016 FALLON ALONSO MD Ot M17.12 UNILATERAL PRIMARY OSTEOARTHRITIS, LEFT 02/07/2016 FALLON ALONSO MD, Ot E11.9 TYPE 2 DIABETES MELLITUS WITHOUT COMPLIC 02/07/2016 FALLON ALONSO MD, Ot E78.5 HYPERLIPIDEMIA, UNSPECIFIED 02/07/2016 FALLON ALONSO MD, Ot I1 0 ESSENTIAL (PRIMARY) HYPERTENSION 02/07/2016 FALLON ALONSO MD, Ot M17.12 UNILATERAL PRIMARY OSTEOARTHRITIS, LEFT 02/07/2016 FALLON ALONSO MD Ot Z2 3 ENCOUNTER FOR IMMUNIZATION 02/23/2016 FALLON ALONSO MD, Ot M17.12 UNILATERAL PRIMARY OSTEOARTHRITIS, LEFT 02/25/2016 FALLON ALONSO MD Ot Z47.1 AFTERCARE FOLLOWING JOINT REPLACEMENT MONTOYA 02/25/2016 FALLON ALONSO MD Ot Z96.651 PRESENCE OF RIGHT ARTIFICIAL KNEE JOINT 02/25/2016 FALLON ALONSO MD Ot Z47.1 AFTERCARE FOLLOWING JOINT REPLACEMENT MONTOYA 02/25/2016 FALLON ALONSO MD Ot Z96.651 PRESENCE OF RIGHT ARTIFICIAL KNEE JOINT 03/09/2016 FALLON ALONSO MD Ot Z47.1 AFTERCARE FOLLOWING JOINT REPLACEMENT MONTOYA 03/09/2016 FALLON ALONSO MD Ot Z96.651 PRESENCE OF RIGHT ARTIFICIAL KNEE JOINT 03/29/2016 FALLON ALONSO MD Ot Z47.1 AFTERCARE FOLLOWING JOINT REPLACEMENT MONTOYA 03/29/2016 FALLON ALONSO MD Ot Z96.651 PRESENCE OF RIGHT ARTIFICIAL KNEE JOINT 03/29/2016 FALLON ALONSO MD, Ot M17.12 UNILATERAL PRIMARY OSTEOARTHRITIS, LEFT 03/29/2016 FALLON ALONSO MD Ot Z47.1 AFTERCARE FOLLOWING JOINT REPLACEMENT MONTOYA 03/29/2016 FALLON ALONSO MD Ot Z96.651 PRESENCE OF RIGHT ARTIFICIAL KNEE JOINT 03/30/2016 FALLON ALONSO MD Ot M17.11 UNILATERAL PRIMARY OSTEOARTHRITIS, RIGHT 04/05/2016 FALLON ALONSO MD Ot Z47.1 AFTERCARE FOLLOWING JOINT REPLACEMENT MONTOYA 04/05/2016 FALLON ALONSO MD Ot Z96.651 PRESENCE OF RIGHT ARTIFICIAL KNEE JOINT 04/08/2016 FALLON ALONSO MD Ot Z47.1 AFTERCARE FOLLOWING JOINT REPLACEMENT MONTOYA 04/08/2016 FALLON ALONSO MD Ot Z96.651 PRESENCE OF RIGHT ARTIFICIAL KNEE JOINT 04/08/2016 FALLON ALONSO MD, Ot M17.11 UNILATERAL PRIMARY OSTEOARTHRITIS, RIGHT 04/08/2016 FALLON ALONSO MD Ot R53.83 OTHER FATIGUE 04/08/2016 FALLON ALONSO MD Ot Z01.812 ENCOUNTER FOR PREPROCEDURAL LABORATORY E 04/08/2016 FALLON ALONSO MD Ot Z11.2 ENCOUNTER FOR SCREENING FOR OTHER BACTER 04/09/2016 FALLON ALONSO MD Ot M17.11 UNILATERAL PRIMARY OSTEOARTHRITIS, RIGHT 04/09/2016 FALLON ALONSO MD Ot R53.83 OTHER FATIGUE 04/09/2016 FALLON ALONSO MD Ot Z01.812 ENCOUNTER FOR PREPROCEDURAL LABORATORY E 04/09/2016 AFLLON ALONSO MD Ot Z11.2 ENCOUNTER FOR SCREENING FOR OTHER BACTER 04/15/2016 FALLON ALONSO MD Ot Z47.1 AFTERCARE FOLLOWING JOINT REPLACEMENT MONTOYA 04/15/2016 FALLNO ALONSO MD Ot Z96.651 PRESENCE OF RIGHT ARTIFICIAL KNEE JOINT 04/16/2016 FALLON ALONSO MD Ot M17.11 UNILATERAL PRIMARY OSTEOARTHRITIS, RIGHT 04/24/2016 FALLON ALONSO MD Ot E11.9 TYPE 2 DIABETES MELLITUS WITHOUT COMPLIC 04/24/2016 FALLON ALONSO MD Ot E78.5 HYPERLIPIDEMIA, UNSPECIFIED 04/24/2016 FALLON ALONSO MD Ot F17.210 NICOTINE DEPENDENCE, CIGARETTES, UNCOMPL 04/24/2016 FALLON ALONSO MD Ot I1 0 ESSENTIAL (PRIMARY) HYPERTENSION 04/24/2016 FALLON ALONSO MD Ot M17.11 UNILATERAL PRIMARY OSTEOARTHRITIS, RIGHT 05/03/2016 FALLON ALONSO MD Ot M17.12 UNILATERAL PRIMARY OSTEOARTHRITIS, LEFT 05/03/2016 FALLON ALONSO MD Ot Z47.1 AFTERCARE FOLLOWING JOINT REPLACEMENT MONTOYA 05/03/2016 FALLON ALONSO MD Ot Z96.651 PRESENCE OF RIGHT ARTIFICIAL KNEE JOINT 05/03/2016 FALLON ALONSO MD Ot M17.11 UNILATERAL PRIMARY OSTEOARTHRITIS, RIGHT 05/11/2016 FALLON ALONSO MD Ot M17.12 UNILATERAL PRIMARY OSTEOARTHRITIS, LEFT 05/11/2016 FALLON ALONSO MD Ot M17.11 UNILATERAL PRIMARY OSTEOARTHRITIS, RIGHT 05/12/2016 FALLON ALONSO MD Ot Z47.1 AFTERCARE FOLLOWING JOINT REPLACEMENT MONTOYA 05/12/2016 FALLON ALONSO MD Ot Z96.651 PRESENCE OF RIGHT ARTIFICIAL KNEE JOINT 05/14/2016 FALLON ALONSO MD Ot Z47.1 AFTERCARE FOLLOWING JOINT REPLACEMENT MONTOYA 05/14/2016 FALLON ALONSO MD Ot Z96.651 PRESENCE OF RIGHT ARTIFICIAL KNEE JOINT 05/15/2016 FABIANA CARRINGTON APRN Ot T81.4XXA INFECTION FOLLOWING A PROCEDURE, INITIAL 05/15/2016 FABIANA CARRINGTON VICE PRESIDENT [employer] Ot Z96.651 PRESENCE OF RIGHT ARTIFICIAL KNEE JOINT 05/22/2016 FALLON ALONSO MD Ot M17.12 UNILATERAL PRIMARY OSTEOARTHRITIS, LEFT 05/22/2016 FALLON ALONSO MD Ot M17.11 UNILATERAL PRIMARY OSTEOARTHRITIS, RIGHT 05/22/2016 FALLON ALONSO MD Ot Z47.1 AFTERCARE FOLLOWING JOINT REPLACEMENT MONTOYA 05/22/2016 FALLON ALONSO MD Ot Z96.651 PRESENCE OF RIGHT ARTIFICIAL KNEE JOINT 05/22/2016 FALLON ALONSO MD Ot Z47.1 AFTERCARE FOLLOWING JOINT REPLACEMENT MONTOYA 05/22/2016 FALLON ALONSO MD Ot Z96.651 PRESENCE OF RIGHT ARTIFICIAL KNEE JOINT 05/22/2016 JENNIFER DASH MD Ot E11.9 TYPE 2 DIABETES MELLITUS WITHOUT COMPLIC 05/22/2016 JENNIFER DASH MD Ot F17.210 NICOTINE DEPENDENCE, CIGARETTES, UNCOMPL 05/22/2016 JENNIFER DASH MD Ot I10 ESSENTIAL (PRIMARY) HYPERTENSION 05/22/2016 JENNIFER DASH MD, Ot T81.4XXA INFECTION FOLLOWING A PROCEDURE, INITIAL 05/22/2016 JENNIFER DASH MD Ot Z79.899 OTHER EMAIL DEVELOPER (CURRENT) DRUG THERAPY 05/22/2016 JENNIFER DASH MD, Ot Z96.651 PRESENCE OF RIGHT ARTIFICIAL KNEE JOINT 05/27/2016 FALLON ALONSO MD Ot Z47.1 AFTERCARE FOLLOWING JOINT REPLACEMENT MONTOYA 05/27/2016 FALLON ALONSO MD Ot Z96.651 PRESENCE OF RIGHT ARTIFICIAL KNEE JOINT 06/01/2016 FALLON ALONSO MD Ot M17.12 UNILATERAL PRIMARY OSTEOARTHRITIS, LEFT 06/01/2016 FALLON ALONSO MD Ot M17.11 UNILATERAL PRIMARY OSTEOARTHRITIS, RIGHT 06/01/2016 CELESTE MONCADA, FALLON Cintron Ot Z47.1 AFTERCARE FOLLOWING JOINT REPLACEMENT MONTOYA 06/01/2016 FALLON ALONSO MD Ot Z96.651 PRESENCE OF RIGHT ARTIFICIAL KNEE JOINT 06/07/2016 FALLON ALONSO MD Ot Z47.1 AFTERCARE FOLLOWING JOINT REPLACEMENT MONTOYA 06/07/2016 FALLON ALONSO MD Ot Z96.651 PRESENCE OF RIGHT ARTIFICIAL KNEE JOINT 06/07/2016 FALLON ALONSO MD Ot M17.12 UNILATERAL PRIMARY OSTEOARTHRITIS, LEFT 06/07/2016 FALLON ALONSO MD Ot M17.11 UNILATERAL PRIMARY OSTEOARTHRITIS, RIGHT 06/07/2016 FALLON ALONSO MD Ot Z47.1 AFTERCARE FOLLOWING JOINT REPLACEMENT MONTOYA 06/07/2016 FALLON ALONSO MD Ot Z96.651 PRESENCE OF RIGHT ARTIFICIAL KNEE JOINT 06/10/2016 FALLON ALONSO MD Ot Z47.1 AFTERCARE FOLLOWING JOINT REPLACEMENT MONTOYA 06/10/2016 FALLON ALONSO MD Ot Z96.651 PRESENCE OF RIGHT ARTIFICIAL KNEE JOINT 07/30/2016 FALLON ALONSO MD Ot M17.12 UNILATERAL PRIMARY OSTEOARTHRITIS, LEFT 07/30/2016 FALLON ALONSO MD Ot M17.11 UNILATERAL PRIMARY OSTEOARTHRITIS, RIGHT 08/16/2016 FALLON ALONSO MD Ot M54.16 RADICULOPATHY, LUMBAR REGION 08/16/2016 FALLON ALONSO MD Ot Z96.653 PRESENCE OF ARTIFICIAL KNEE JOINT, BILAT 08/19/2016 FALLON ALONSO MD Ot M54.16 RADICULOPATHY, LUMBAR REGION 08/19/2016 FALLON ALONSO MD Ot Z96.653 PRESENCE OF ARTIFICIAL KNEE JOINT, BILAT 08/25/2016 FALLON ALONSO MD Ot M54.16 RADICULOPATHY, LUMBAR REGION 08/25/2016 FALLON ALONSO MD Ot Z96.653 PRESENCE OF ARTIFICIAL KNEE JOINT, BILAT 09/07/2016 FALLON ALONSO MD Ot M54.16 RADICULOPATHY, LUMBAR REGION 09/07/2016 FALLON ALONSO MD Ot Z96.653 PRESENCE OF ARTIFICIAL KNEE JOINT, BILAT 09/23/2016 FALLON ALONSO MD Ot M54.16 RADICULOPATHY, LUMBAR REGION 09/23/2016 CELESTE MONCADA, FALLON Cintron Ot Z96.653 PRESENCE OF ARTIFICIAL KNEE JOINT, BILAT 10/21/2016 CELESTE MONCADA, FALLON Cintron Ot M54.16 RADICULOPATHY, LUMBAR REGION 11/08/2016 FALLON ALONSO MD, Ot M54.16 RADICULOPATHY, LUMBAR REGION 07/16/2017 JERRICA OCASIO DO Ot E11.9 TYPE 2 DIABETES MELLITUS WITHOUT COMPLIC 07/16/2017 JERRICA OCASIO DO Ot E66.9 OBESITY, UNSPECIFIED 07/16/2017 NINFA JERRICA VELEZ Ot F32.9 MAJOR DEPRESSIVE DISORDER, SINGLE EPISOD 07/16/2017 JERRICA OCASIO DO Ot F41.9 ANXIETY DISORDER, UNSPECIFIED 07/16/2017 JERRICA OCASIO DO Ot I10 ESSENTIAL (PRIMARY) HYPERTENSION 07/16/2017 NINFA JERRICA VEELZ Ot K52.9 NONINFECTIVE GASTROENTERITIS AND COLITIS 07/16/2017 JERRICA OCASIO DO Ot R11.2 NAUSEA WITH VOMITING, UNSPECIFIED 07/16/2017 JERRICA OCASIO DO Ot R42 DIZZINESS AND GIDDINESS 07/16/2017 JERRICA OCASIO DO Ot R51 HEADACHE 07/16/2017 JERRICA OCASIO DO Ot Z68.41 BODY MASS INDEX (BMI) 40.0-44.9, ADULT 07/16/2017 JERRICA OCASIO DO Ot Z90.49 ACQUIRED ABSENCE OF OTHER SPECIFIED PART 07/16/2017 JERRICA OCASIO DO Ot Z96.651 PRESENCE OF RIGHT ARTIFICIAL KNEE JOINT 07/16/2017 WILL OCASIO DOA K Ot Z96.652 PRESENCE OF LEFT ARTIFICIAL KNEE JOINT 07/16/2017 FALLON ALONSO MD Ot M17.12 UNILATERAL PRIMARY OSTEOARTHRITIS, LEFT 07/16/2017 FALLON ALONSO MD Ot M17.11 UNILATERAL PRIMARY OSTEOARTHRITIS, RIGHT 07/16/2017 CELESTE MONCADA, FALLON Cintron Ot M54.16 RADICULOPATHY, LUMBAR REGION 01/16/2019 FALLON ALONSO MD Ot M17.12 UNILATERAL PRIMARY OSTEOARTHRITIS, LEFT 01/16/2019 FALLON ALONSO MD Ot M17.11 UNILATERAL PRIMARY OSTEOARTHRITIS, RIGHT 01/16/2019 CELESTE MONCADA, FALLON Cintron Ot M54.16 RADICULOPATHY, LUMBAR REGION 01/19/2019 JASON DPM, CHENG Q Ot Z01.818 ENCOUNTER FOR OTHER PREPROCEDURAL EXAMIN 01/22/2019 CELESTE MONCADA, FALLON Cintron Ot M17.12 UNILATERAL PRIMARY OSTEOARTHRITIS, LEFT 01/22/2019 CELESTE MONCADA, FALLON Cintron Ot M17.11 UNILATERAL PRIMARY OSTEOARTHRITIS, RIGHT 01/22/2019 CELESTE MONCADA, FALLON Cintron Ot M54.16 RADICULOPATHY, LUMBAR REGION 01/22/2019 JASON DPM, CHENG Q Ot Z01.818 ENCOUNTER FOR OTHER PREPROCEDURAL EXAMIN 01/25/2019 CELESTE MONCADA, FALLON Cintron Ot M17.12 UNILATERAL PRIMARY OSTEOARTHRITIS, LEFT 01/25/2019 CELESTE MONCADA, FALLON Cintron Ot M17.11 UNILATERAL PRIMARY OSTEOARTHRITIS, RIGHT 01/25/2019 CELESTE MONCADA, FALLON Cintron Ot M54.16 RADICULOPATHY, LUMBAR REGION 01/25/2019 JASON DPM, CHENG Q Ot Z01.818 ENCOUNTER FOR OTHER PREPROCEDURAL EXAMIN 01/29/2019 MELVIN ESPITIA MD Ot R07 .9 CHEST PAIN, UNSPECIFIED 03/29/2019 CELESTE MONCADA, FALLON Cintron Ot M17.12 UNILATERAL PRIMARY OSTEOARTHRITIS, LEFT 03/29/2019 CELESTE MONCADA, FALLON Cintron Ot M17.11 UNILATERAL PRIMARY OSTEOARTHRITIS, RIGHT 03/29/2019 CELESTE MONCADA, FALLON Cintron Ot M54.16 RADICULOPATHY, LUMBAR REGION 03/29/2019 JASON DPM, CHENG Q Ot Z01.818 ENCOUNTER FOR OTHER PREPROCEDURAL EXAMIN 03/29/2019 MELVIN ESPITIA MD Ot R07 .9 CHEST PAIN, UNSPECIFIED 04/02/2019 MELVIN ESPITIA MD Ot I10 ESSENTIAL (PRIMARY) HYPERTENSION 04/02/2019 MELVIN ESPITIA MD Ot R07 .9 CHEST PAIN, UNSPECIFIED 04/27/2019 OLEA DO, MARCELLUS Ot E11.9 TYPE 2 DIABETES MELLITUS WITHOUT COMPLIC 04/27/2019 OLEA DO, MARCELLUS Ot E66.9 OBESITY, UNSPECIFIED 04/27/2019 OLEA DO, MARCELLUS Ot E78.5 HYPERLIPIDEMIA, UNSPECIFIED 04/27/2019 OLEA DO, MARCELLUS Ot F17.21 0 NICOTINE DEPENDENCE, CIGARETTES, UNCOMPL 04/27/2019 LEFTY VELEZ MARCELLUS Ot F32.9 MAJOR DEPRESSIVE DISORDER, SINGLE EPISOD 04/27/2019 LEFTY VELEZ MARCELLUS Ot I10 ESSENTIAL (PRIMARY) HYPERTENSION 04/27/2019 LEFTY VELEZ MARCELLUS Ot K59.09 OTHER CONSTIPATION 04/27/2019 LEFTY VELEZ MARCELLUS Ot M19.91 PRIMARY OSTEOARTHRITIS, UNSPECIFIED SITE 04/27/2019 LEFTY VELEZ MARCELLUS Ot R07.9 CHEST PAIN, UNSPECIFIED 04/27/2019 LEFTY VELEZ MARCELLUS Ot R94.39 ABNORMAL RESULT OF OTHER CARDIOVASCULAR 04/27/2019 LEFTY VELEZ MARCELLUS Ot Z68.41 BODY MASS INDEX (BMI) 40.0-44.9, ADULT 04/27/2019 LEFTY VELEZ MARCELLUS Ot Z79.84 EMAIL DEVELOPER (CURRENT) USE OF ORAL HYPOGLYC 04/27/2019 LEFTY VELEZ MARCELLUS Ot Z96.65 3 PRESENCE OF ARTIFICIAL KNEE JOINT, BILAT 05/01/2019 REYNA WAYNE SCALE TANK OPERATOR Ot E66.01 MORBID (SEVERE) OBESITY DUE TO EXCESS CA 05/01/2019 REYNA WAYNE SCALE TANK OPERATOR Ot M47.26 OTHER SPONDYLOSIS WITH RADICULOPATHY, LINDA 05/01/2019 REYNA WAYNE SCALE TANK OPERATOR Ot M48.061 SPINAL STENOSIS, LUMBAR REGION WITHOUT N 05/01/2019 REYNA WAYNE SCALE TANK OPERATOR Ot M48.07 SPINAL STENOSIS, LUMBOSACRAL REGION 05/02/2019 REYNA WAYNE SCALE TANK OPERATOR Ot E66.01 MORBID (SEVERE) OBESITY DUE TO EXCESS CA 05/02/2019 REYNA WAYNE SCALE TANK OPERATOR Ot M47.26 OTHER SPONDYLOSIS WITH RADICULOPATHY, LINDA 05/02/2019 REYNA WAYNE SCALE TANK OPERATOR Ot M48.061 SPINAL STENOSIS, LUMBAR REGION WITHOUT N 05/02/2019 REYNA WAYNE SCALE TANK OPERATOR Ot M48.07 SPINAL STENOSIS, LUMBOSACRAL REGION 05/02/2019 CELESTE MONCADA, FALLON Cintron Ot M17.12 UNILATERAL PRIMARY OSTEOARTHRITIS, LEFT 05/02/2019 CELESTE MONCADA, FALLON Cintron Ot M17.11 UNILATERAL PRIMARY OSTEOARTHRITIS, RIGHT 05/02/2019 CELESTE MONCADA, FALLON Cintron Ot M54.16 RADICULOPATHY, LUMBAR REGION 05/02/2019 JASON DPM, CHENG Q Ot Z01.818 ENCOUNTER FOR OTHER PREPROCEDURAL EXAMIN 05/02/2019 MELVIN ESPITIA MD Ot I10 ESSENTIAL (PRIMARY) HYPERTENSION 05/02/2019 OMKAR MONCADA, MELVIN Dacosta Ot R07 .9 CHEST PAIN, UNSPECIFIED 05/02/2019 REYNA WAYNE Ot E66.01 MORBID (SEVERE) OBESITY DUE TO EXCESS CA 05/02/2019 REYNA WAYNE SCALE TANK OPERATOR Ot M47.26 OTHER SPONDYLOSIS WITH RADICULOPATHY, LINDA 05/02/2019 REYNA WAYNEP Ot M48.061 SPINAL STENOSIS, LUMBAR REGION WITHOUT N 05/02/2019 REYNA WAYNE SCALE TANK OPERATOR Ot M48.07 SPINAL STENOSIS, LUMBOSACRAL REGION 05/02/2019 MELVIN ESPITIA MD Ot I10 ESSENTIAL (PRIMARY) HYPERTENSION 05/02/2019 MELVIN ESPITIA MD Ot R07 .9 CHEST PAIN, UNSPECIFIED 05/04/2019 JASON DPM, CHENG Q Ot Z01.818 ENCOUNTER FOR OTHER PREPROCEDURAL EXAMIN 05/07/2019 JASON DPM, CHENG Q Ot E11. 9 TYPE 2 DIABETES MELLITUS WITHOUT COMPLIC 05/07/2019 JASON DPM, CHENG Q Ot E66. 9 OBESITY, UNSPECIFIED 05/07/2019 JASON DPM, CHENG Q Ot E78. 5 HYPERLIPIDEMIA, UNSPECIFIED 05/07/2019 JASON DPM, CHENG Q Ot F32. 9 MAJOR DEPRESSIVE DISORDER, SINGLE EPISOD 05/07/2019 JASON DPM, CHENG Q Ot I10 ESSENTIAL (PRIMARY) HYPERTENSION 05/07/2019 JASON DPM, CHENG Q Ot I20. 9 ANGINA PECTORIS, UNSPECIFIED 05/07/2019 JASON DPM, CHENG Q Ot M20. 12 HALLUX VALGUS (ACQUIRED), LEFT FOOT 05/07/2019 JASON DPM, CHENG Q Ot M20. 42 OTHER HAMMER TOE(S) (ACQUIRED), LEFT RAÚL 05/07/2019 JASON DPM, CHENG Q Ot R06. 02 SHORTNESS OF BREATH 05/07/2019 JASON DPM, CHENG Q Ot S93.145A SUBLUXATION OF MTP JOINT OF LEFT LESSER 05/07/2019 JASON DPM, CHENG Q Ot Z68. 41 BODY MASS INDEX (BMI) 40.0-44.9, ADULT 05/07/2019 JASON DPM, CHENG Q Ot Z79.899 OTHER EMAIL DEVELOPER (CURRENT) DRUG THERAPY 05/07/2019 JASON DPM, CHENG Q Ot Z82. 49 FAMILY HX OF ISCHEM HEART DIS AND OTH DI 05/07/2019 JASON DPM, CHENG Q Ot Z99. 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 05/11/2019 REYNA WAYNE Ot E66.01 MORBID (SEVERE) OBESITY DUE TO EXCESS CA 05/11/2019 REYNA WAYNE SCALE TANK OPERATOR Ot M47.26 OTHER SPONDYLOSIS WITH RADICULOPATHY, LINDA 05/11/2019 REYNA WAYNEP Ot M48.061 SPINAL STENOSIS, LUMBAR REGION WITHOUT N 05/11/2019 REYNA WAYNE Ot M48.07 SPINAL STENOSIS, LUMBOSACRAL REGION 05/22/2019 OMKAR MONCADA, MELVIN Dacosta Ot I10 ESSENTIAL (PRIMARY) HYPERTENSION 05/22/2019 OMKAR MONCADA, MELVIN Dacosta Ot R07 .9 CHEST PAIN, UNSPECIFIED 06/28/2019 JENNIFER DASH MD Ot E11.9 TYPE 2 DIABETES MELLITUS WITHOUT COMPLIC 06/28/2019 JENNIFER DASH MD Ot E66.9 OBESITY, UNSPECIFIED 06/28/2019 JENNIFER DASH MD Ot E78.00 PURE HYPERCHOLESTEROLEMIA, UNSPECIFIED 06/28/2019 JENNIFER DASH MD Ot F32.9 MAJOR DEPRESSIVE DISORDER, SINGLE EPISOD 06/28/2019 JENNIFER DASH MD Ot G47.30 SLEEP APNEA, UNSPECIFIED 06/28/2019 JENNIFER DASH MD Ot I10 ESSENTIAL (PRIMARY) HYPERTENSION 06/28/2019 JENNIFER DASH MD Ot R07.9 CHEST PAIN, UNSPECIFIED 06/28/2019 JENNIFER DASH MD Ot Z68.41 BODY MASS INDEX (BMI) 40.0-44.9, ADULT 06/28/2019 JENNIFER DASH MD Ot Z79.84 EMAIL DEVELOPER (CURRENT) USE OF ORAL HYPOGLYC 06/28/2019 JENNIFER DASH MD Ot Z82.49 FAMILY HX OF ISCHEM HEART DIS AND OTH DI 06/28/2019 JENNIFER DASH MD Ot Z90.49 ACQUIRED ABSENCE OF OTHER SPECIFIED PART 06/28/2019 JENNIFER DASH MD, Ot Z95.9 PRESENCE OF CARDIAC AND VASCULAR IMPLANT 06/28/2019 JENNIFER DASH MD, Ot Z96.653 PRESENCE OF ARTIFICIAL KNEE JOINT, BILAT 06/28/2019 JENNIFER DASH MD, Ot Z99.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 07/02/2019 JENNIFER DASH MD Ot E11.9 TYPE 2 DIABETES MELLITUS WITHOUT COMPLIC 07/02/2019 JENNIFER DASH MD, Ot E66.9 OBESITY, UNSPECIFIED 07/02/2019 JENNIFER DSAH MD, Ot E78.00 PURE HYPERCHOLESTEROLEMIA, UNSPECIFIED 07/02/2019 JENNIFER DASH MD, Ot F32.9 MAJOR DEPRESSIVE DISORDER, SINGLE EPISOD 07/02/2019 JENNIFER DASH MD, Ot G47.30 SLEEP APNEA, UNSPECIFIED 07/02/2019 JENNIFER DASH MD Ot I10 ESSENTIAL (PRIMARY) HYPERTENSION 07/02/2019 JENNIFER DASH MD Ot R07.9 CHEST PAIN, UNSPECIFIED 07/02/2019 JENNIFER DASH MD, Ot Z68.41 BODY MASS INDEX (BMI) 40.0-44.9, ADULT 07/02/2019 JENNIFER DASH MD, Ot Z79.84 EMAIL DEVELOPER (CURRENT) USE OF ORAL HYPOGLYC 07/02/2019 JENNIFER DASH MD, Ot Z82.49 FAMILY HX OF ISCHEM HEART DIS AND OTH DI 07/02/2019 JENNIFER DASH MD, Ot Z90.49 ACQUIRED ABSENCE OF OTHER SPECIFIED PART 07/02/2019 JENNIFER DASH MD, Ot Z95.9 PRESENCE OF CARDIAC AND VASCULAR IMPLANT 07/02/2019 JENNIFER DASH MD, Ot Z96.653 PRESENCE OF ARTIFICIAL KNEE JOINT, BILAT 07/02/2019 JENNIFER DASH MD, Ot Z99.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 07/25/2019 JASON DPM, CHENG Q Ot E11. 9 TYPE 2 DIABETES MELLITUS WITHOUT COMPLIC 07/25/2019 JASON DPM, CHENG Q Ot E66. 9 OBESITY, UNSPECIFIED 07/25/2019 JASON DPM, CHENG Q Ot E78. 5 HYPERLIPIDEMIA, UNSPECIFIED 07/25/2019 JASON DPM, CHENG Q Ot F32. 9 MAJOR DEPRESSIVE DISORDER, SINGLE EPISOD 07/25/2019 JASON DPM, CHENG Q Ot I10 ESSENTIAL (PRIMARY) HYPERTENSION 07/25/2019 JASON DPM, CHENG Q Ot I20. 9 ANGINA PECTORIS, UNSPECIFIED 07/25/2019 JASON DPM, CHENG Q Ot M20. 12 HALLUX VALGUS (ACQUIRED), LEFT FOOT 07/25/2019 JASON DPM, CHENG Q Ot M20. 42 OTHER HAMMER TOE(S) (ACQUIRED), LEFT RAÚL 07/25/2019 JASON DPM, CHENG Q Ot R06. 02 SHORTNESS OF BREATH 07/25/2019 JASON DPM, CHENG Q Ot S93.145A SUBLUXATION OF MTP JOINT OF LEFT LESSER 07/25/2019 JASON DPM, CHENG Q Ot Z68. 41 BODY MASS INDEX (BMI) 40.0-44.9, ADULT 07/25/2019 JASON DPM, CHENG Q Ot Z79.899 OTHER EMAIL DEVELOPER (CURRENT) DRUG THERAPY 07/25/2019 JASON DPM, CHENG Q Ot Z82. 49 FAMILY HX OF ISCHEM HEART DIS AND OTH DI 07/25/2019 JASON DPM, CHENG Q Ot Z99. 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 12/20/2019 REYNA WAYNE Ot E66.01 MORBID (SEVERE) OBESITY DUE TO EXCESS CA 12/20/2019 REYNA WAYNE Ot M47.26 OTHER SPONDYLOSIS WITH RADICULOPATHY, LINDA 12/20/2019 REYNA WAYNE Ot M48.061 SPINAL STENOSIS, LUMBAR REGION WITHOUT N 12/20/2019 REYNA WAYNE Ot M48.07 SPINAL STENOSIS, LUMBOSACRAL REGION Procedures Code Description Performed By Per formed On [id number] RE PLACE OF L KNEE JT WITH SYNTH SUB JASE 02/04/[id number] OF R KNEE JT WITH SYNTH SUB, JASE 04/21/2016 Results Test Result Range Methicillin resistant Staphylococcus aur eus (MRSA) screening culture - 04/08/16 09:30 Methicillin resistant Staphylococcus aureus (MRSA) scr eening culture NEG NRG Capillary blood glucose measurement by g lucometer (mass/volume) - 04/21/16 07:32 Capillary blood glucose measurement by glucometer (mas s/volume) 110 mg/dL 70-110 Blood type T Indirect antibody screen [facility] 04/21/16 07:45 ABO+Rh group AP NRG Transfusion band number [id number] NR Blood group antibody screen NEGATIVE NR G Whole blood hemoglobin and hematocrit [facility] 04/22/16 06:23 Venous blood hemoglobin measurement (mass/volume) 11.9 g/dL 13.3-17.7 Blood hematocrit (volume fraction) 35 % 40-54 Whole blood hemoglobin and hematocrit [facility] 04/23/16 05:57 Venous blood hemoglobin measurement (mass/volume) 8.5 g/dL 13.3-17.7 Blood hematocrit (volume fraction) 25 % 40-54 Whole blood hemoglobin and hematocrit [facility] 04/24/16 05:43 Venous blood hemoglobin measurement (mass/volume) 10.7 g/dL 13.3-17.7 Blood hematocrit (volume fraction) 32 % 40-54 Complete blood count (CBC) with automate d white blood cell (WBC) differential - 05/15/16 17:47 Blood leukocytes automated count (number/volume) 8.9 10*3/uL 4.3-11.0 Blood erythrocytes automated count (number/volume) 4.32 10*6/uL 4.35-5.85 Venous blood hemoglobin measurement (mass/volume) 12.5 g/dL 13.3-17.7 Blood hematocrit (volume fraction) 36 % 40-54 Automated erythrocyte mean corpuscular volume 84 [ foz_us] 80-99 Automated erythrocyte mean corpuscular h emoglobin (mass per erythrocyte) 29 pg 25-34 Automated erythrocyte mean corpuscular h emoglobin concentration measurement (mass/volume) 35 g/dL 32-36 Automated erythrocyte distribution width ratio 13. 6 % 10.0- 14.5 Automated blood platelet count (count/volume) 341 10*3/uL 130-400 Automated blood platelet mean volume measurement 8.9 [foz_us] 7.4-10.4 Automated blood neutrophils/100 leukocytes 59 % 42-75 Automated blood lymphocytes/100 leukocytes 29 % 12-44 Blood monocytes/100 leukocytes 7 % 0-12 Automated blood eosinophils/100 leukocytes 5 % 0-10 Automated blood basophils/100 leukocytes 0 % 0-10 Blood neutrophils automated count (number/volume) 5.2 10*3 1.8-7.8 Blood lymphocytes automated count (number/volume) 2.6 10*3 1.0-4.0 Blood monocytes automated count (number/volume) 0. 7 10*3 0.0-1.0 Automated eosinophil count 0.4 10*3/uL 0 .0-0.3 Automated blood basophil count (count/volume) 0.0 10*3/uL 0.0-0.1 Erythrocyte sedimentation rate by kristal gren method - 05/15/16 17:47 Erythrocyte sedimentation rate by westergren method 19 mm 0- 30 Whole blood basic metabolic panel - 11/25 17:47 Serum or plasma sodium measurement (moles/volume) 138 mmol/L 135-145 Serum or plasma potassium measurement (moles/volume) 3.7 mmol/L 3.6-5.0 Serum or plasma chloride measurement (moles/volume) 103 mmol/L 98-107 Carbon dioxide 19 mmol/L 21-32 Serum or plasma anion gap determination (moles/volume) 16 mmol/L 5-14 Serum or plasma urea nitrogen measurement (mass/volume ) 14 mg/dL 7-18 Serum or plasma creatinine measurement (mass/volume) 0.83 mg/dL 0.60-1.30 Serum or plasma urea nitrogen/creatinine mass ratio 17 NRG Serum or plasma creatinine measurement w ith calculation of estimated glomerular filtration rate > NRG Serum or plasma glucose measurement (mass/volume) 165 mg/dL 70-105 Serum or plasma calcium measurement (mass/volume) 9.3 mg/dL 8.5-10.1 Serum or plasma C reactive protein measu rement (mass/volume) - 05/15/16 17:47 Serum or plasma C reactive protein measurement (mass/v olume) 2.01 mg/dL 0.00-0.50 Gram stain microscopy - 05/15/16 17:47 GRAM STAIN RESULT FEW GRAM POSITIVE COCCI RESEMBLI NG STAPH NRG Bacteria identification in wound by cult ure - 05/15/16 17:47 Bacteria identification in wound by culture [id number] NRG FREE TEXT EXTERNAL SENSITIVITY REPORTED 05/17 09:40 NRG QUANTITY OF GROWTH Moderate Growth NR Bacterial susceptibility panel - 6 17:47 Oxacillin susceptibility test by minimum inhibitory co ncentration 0.5 NRG Gentamicin susceptibility test by minimum inhibitory c oncentration <= NRG Clindamycin susceptibility test by minimum inhibitory concentration R NRG Erythromycin susceptibility test by minimum inhibitory concentration R NRG Trimethoprim/sulfamethoxazole susceptibi lity test by minimum inhibitoryconcentration <= NRG Vancomycin susceptibility test by minimum inhibitory c oncentration <= NRG Levofloxacin susceptibility test by minimum inhibitory concentration <= NRG Rifampin susceptibility test by minimum inhibitory con centration <= NRG Tetracycline susceptibility test by minimum inhibitory concentration <= NRG Complete blood count (CBC) with automate d white blood cell (WBC) differential - 05/22/16 17:10 Blood leukocytes automated count (number/volume) 9.5 10*3/uL 4.3-11.0 Blood erythrocytes automated count (number/volume) 4.51 10*6/uL 4.35-5.85 Venous blood hemoglobin measurement (mass/volume) 12.6 g/dL 13.3-17.7 Blood hematocrit (volume fraction) 37 % 40-54 Automated erythrocyte mean corpuscular volume 83 [ foz_us] 80-99 Automated erythrocyte mean corpuscular h emoglobin (mass per erythrocyte) 28 pg 25-34 Automated erythrocyte mean corpuscular h emoglobin concentration measurement (mass/volume) 34 g/dL 32-36 Automated erythrocyte distribution width ratio 13. 6 % 10.0- 14.5 Automated blood platelet count (count/volume) 288 10*3/uL 130-400 Automated blood platelet mean volume measurement 9.1 [foz_us] 7.4-10.4 Automated blood neutrophils/100 leukocytes 66 % 42-75 Automated blood lymphocytes/100 leukocytes 23 % 12-44 Blood monocytes/100 leukocytes 8 % 0-12 Automated blood eosinophils/100 leukocytes 3 % 0-10 Automated blood basophils/100 leukocytes 0 % 0-10 Blood neutrophils automated count (number/volume) 6.2 10*3 1.8-7.8 Blood lymphocytes automated count (number/volume) 2.2 10*3 1.0-4.0 Blood monocytes automated count (number/volume) 0. 8 10*3 0.0-1.0 Automated eosinophil count 0.3 10*3/uL 0 .0-0.3 Automated blood basophil count (count/volume) 0.0 10*3/uL 0.0-0.1 Comprehensive metabolic panel - 05/22/16 17:10 Serum or plasma sodium measurement (moles/volume) 138 mmol/L 135-145 Serum or plasma potassium measurement (moles/volume) 4.4 mmol/L 3.6-5.0 Serum or plasma chloride measurement (moles/volume) 105 mmol/L 98-107 Carbon dioxide 21 mmol/L 21-32 Serum or plasma anion gap determination (moles/volume) 12 mmol/L 5-14 Serum or plasma urea nitrogen measurement (mass/volume ) 19 mg/dL 7-18 Serum or plasma creatinine measurement (mass/volume) 1.02 mg/dL 0.60-1.30 Serum or plasma urea nitrogen/creatinine mass ratio 19 NRG Serum or plasma creatinine measurement w ith calculation of estimated glomerular filtration rate > NRG Serum or plasma glucose measurement (mass/volume) 126 mg/dL 70-105 Serum or plasma calcium measurement (mass/volume) 9.6 mg/dL 8.5-10.1 Serum or plasma total bilirubin measurement (mass/volu me) 0.2 mg/dL 0.1-1.0 Serum or plasma alkaline phosphatase shellie surement (enzymatic activity/volume) 69 U/L 40-136 Serum or plasma aspartate aminotransfera se measurement (enzymatic activity/volume) 13 U/L 5-34 Serum or plasma alanine aminotransferase measurement (enzymatic activity/volume) 26 U/L 0-55 Serum or plasma protein measurement (mass/volume) 7.1 g/dL 6.4-8.2 Serum or plasma albumin measurement (mass/volume) 4.1 g/dL 3.2-4.5 Serum or plasma C reactive protein measu rement (mass/volume) - 05/22/16 17:10 Serum or plasma C reactive protein measurement (mass/v olume) 0.69 mg/dL 0.00-0.50 Erythrocyte sedimentation rate by kristal gren method - 05/22/16 17:10 Erythrocyte sedimentation rate by westergren method 24 mm 0- 30 Bacterial blood culture - 05/22/16 17:18 Bacterial blood culture NG NRG Bacterial blood culture - 05/22/16 17:27 Bacterial blood culture NG NRG CBC With Differential/Platelet - 6 09:43 WBC 6.4 x10E3/uL 3.4-10.8 RBC 4.61 x10E6/uL 4.14-5.80 Hemoglobin 12.3 g/dL 12.6-17.7 Hematocrit 37.2 % 37.5-51.0 MCV 81 fL 79-97 MCH 26.7 pg 26.6-33.0 MCHC 33.1 g/dL 31.5-35.7 RDW 14.6 % 12.3-15.4 Platelets 309 x10E3/uL 150-379 Neutrophils 50 % Lymphs 36 % Monocytes 9 % Eos 5 % Basos 0 % Neutrophils (Absolute) 3.2 x10E3/uL 1.4- 7.0 Lymphs (Absolute) 2.3 x10E3/uL 0.7-3.1 Monocytes(Absolute) 0.6 x10E3/uL 0.1-0.9 Eos (Absolute) 0.3 x10E3/uL 0.0-0.4 Baso (Absolute) 0.0 x10E3/uL 0.0-0.2 Immature Granulocytes 0 % Immature Grans (Abs) 0.0 x10E3/uL 0.0-0. 1 Basic Metabolic Panel (8) - 05/27/16 09: 43 Glucose, Serum 104 mg/dL 65-99 BUN 12 mg/dL 6-24 Creatinine, Serum 0.91 mg/dL 0.76-1.27 eGFR If NonAfricn Am 97 mL/min/1.73 >59 eGFR If Africn Am 112 mL/min/1.73 >5 9 BUN/Creatinine Ratio 13 9-20 Sodium, Serum 137 mmol/L 134-144 Potassium, Serum 4.5 mmol/L 3.5-5.2 Chloride, Serum 96 mmol/L 97-108 Carbon Dioxide, Total 24 mmol/L 18-29 Calcium, Serum 9.4 mg/dL 8.7-10.2 Magnesium, Serum - 05/27/16 09:43 Magnesium, Serum 2.0 mg/dL 1.6-2.3 CMP - 05/30/17 13:12 Glucose, Serum 105 mg/dL 65-99 BUN 13 mg/dL 6-24 Creatinine, Serum 0.84 mg/dL 0.76-1.27 eGFR If NonAfricn Am 100 mL/min/1.73 >59 eGFR If Africn Am 116 mL/min/1.73 >5 9 BUN/Creatinine Ratio 15 9-20 Sodium, Serum 139 mmol/L 134-144 Potassium, Serum 4.1 mmol/L 3.5-5.2 Chloride, Serum 100 mmol/L 96-106 Carbon Dioxide, Total 23 mmol/L 18-29 Calcium, Serum 8.6 mg/dL 8.7-10.2 Protein, Total, Serum 6.4 g/dL 6.0-8.5 Albumin, Serum 4.0 g/dL 3.5-5.5 Globulin, Total 2.4 g/dL 1.5-4.5 A/G Ratio 1.7 1.2-2.2 Bilirubin, Total 0.3 mg/dL 0.0-1.2 Alkaline Phosphatase, S 62 IU/L 39-117 AST (SGOT) 18 IU/L 0-40 ALT (SGPT) 43 IU/L 0-44 CBC With Differential/Platelet - 7 13:12 WBC 7.3 x10E3/uL 3.4-10.8 RBC 4.57 x10E6/uL 4.14-5.80 Hemoglobin 13.2 g/dL 12.6-17.7 Hematocrit 39.9 % 37.5-51.0 MCV 87 fL 79-97 MCH 28.9 pg 26.6-33.0 MCHC 33.1 g/dL 31.5-35.7 RDW 14.3 % 12.3-15.4 Platelets 211 x10E3/uL 150-379 Neutrophils 54 % Lymphs 25 % Monocytes 8 % Eos 12 % Basos 0 % Neutrophils (Absolute) 4.0 x10E3/uL 1.4- 7.0 Lymphs (Absolute) 1.8 x10E3/uL 0.7-3.1 Monocytes(Absolute) 0.6 x10E3/uL 0.1-0.9 Eos (Absolute) 0.8 x10E3/uL 0.0-0.4 Baso (Absolute) 0.0 x10E3/uL 0.0-0.2 Immature Granulocytes 1 % Immature Grans (Abs) 0.1 x10E3/uL 0.0-0. 1 Comp. Metabolic Panel (14) - 05/30/17 13 :12 Glucose, Serum 105 mg/dL 65-99 BUN 13 mg/dL 6-24 Creatinine, Serum 0.84 mg/dL 0.76-1.27 eGFR If NonAfricn Am 100 mL/min/1.73 >59 eGFR If Africn Am 116 mL/min/1.73 >5 9 BUN/Creatinine Ratio 15 9-20 Sodium, Serum 139 mmol/L 134-144 Potassium, Serum 4.1 mmol/L 3.5-5.2 Chloride, Serum 100 mmol/L 96-106 Carbon Dioxide, Total 23 mmol/L 18-29 Calcium, Serum 8.6 mg/dL 8.7-10.2 Protein, Total, Serum 6.4 g/dL 6.0-8.5 Albumin, Serum 4.0 g/dL 3.5-5.5 Globulin, Total 2.4 g/dL 1.5-4.5 A/G Ratio 1.7 1.2-2.2 Bilirubin, Total 0.3 mg/dL 0.0-1.2 Alkaline Phosphatase, S 62 IU/L 39-117 AST (SGOT) 18 IU/L 0-40 ALT (SGPT) 43 IU/L 0-44 Lipid Panel - 05/30/17 13:12 Cholesterol, Total 132 mg/dL 100-199 Triglycerides 305 mg/dL 0-149 HDL Cholesterol 25 mg/dL >39 VLDL Cholesterol Tito 61 mg/dL 5-40 LDL Cholesterol Calc 46 mg/dL 0-99 Complete blood count (CBC) with automate d white blood cell (WBC) differential - 07/15/17 23:00 Blood leukocytes automated count (number/volume) 14.8 10*3/uL 4.3-11.0 Blood erythrocytes automated count (number/volume) 5.11 10*6/uL 4.35-5.85 Venous blood hemoglobin measurement (mass/volume) 15.3 g/dL 13.3-17.7 Blood hematocrit (volume fraction) 43 % 40-54 Automated erythrocyte mean corpuscular volume 85 [ foz_us] 80-99 Automated erythrocyte mean corpuscular h emoglobin (mass per erythrocyte) 30 pg 25-34 Automated erythrocyte mean corpuscular h emoglobin concentration measurement (mass/volume) 35 g/dL 32-36 Automated erythrocyte distribution width ratio 12. 8 % 10.0- 14.5 Automated blood platelet count (count/volume) 285 10*3/uL 130-400 Automated blood platelet mean volume measurement 9.7 [foz_us] 7.4-10.4 Automated blood neutrophils/100 leukocytes 56 % 42-75 Automated blood lymphocytes/100 leukocytes 30 % 12-44 Blood monocytes/100 leukocytes 9 % 0-12 Automated blood eosinophils/100 leukocytes 5 % 0-10 Automated blood basophils/100 leukocytes 0 % 0-10 Blood neutrophils automated count (number/volume) 8.3 10*3 1.8-7.8 Blood lymphocytes automated count (number/volume) 4.4 10*3 1.0-4.0 Blood monocytes automated count (number/volume) 1. 3 10*3 0.0-1.0 Automated eosinophil count 0.7 10*3/uL 0 .0-0.3 Automated blood basophil count (count/volume) 0.1 10*3/uL 0.0-0.1 Blood manual differential performed dete ction - 07/15/17 23:00 Blood monocytes/100 leukocytes 3 % NRG Manual blood segmented neutrophils/100 leukocytes 59 % NRG Blood band neutrophils/100 leukocytes 0 % NRG Manual blood lymphocytes/100 leukocytes 32 % NRG Manual eosinophils/100 leukocytes in nose 6 % NRG Manual blood basophils/100 leukocytes 0 % NRG Blood erythrocyte morphology finding identification NORMAL NR Comprehensive metabolic panel - 07/15/17 23:00 Serum or plasma sodium measurement (moles/volume) 138 mmol/L 135-145 Serum or plasma potassium measurement (moles/volume) 3.5 mmol/L 3.6-5.0 Serum or plasma chloride measurement (moles/volume) 102 mmol/L 98-107 Carbon dioxide 24 mmol/L 21-32 Serum or plasma anion gap determination (moles/volume) 12 mmol/L 5-14 Serum or plasma urea nitrogen measurement (mass/volume ) 18 mg/dL 7-18 Serum or plasma creatinine measurement (mass/volume) 0.96 mg/dL 0.60-1.30 Serum or plasma urea nitrogen/creatinine mass ratio 19 NRG Serum or plasma creatinine measurement w ith calculation of estimated glomerular filtration rate > NRG Serum or plasma glucose measurement (mass/volume) 197 mg/dL 70-105 Serum or plasma calcium measurement (mass/volume) 9.5 mg/dL 8.5-10.1 Serum or plasma total bilirubin measurement (mass/volu me) 0.4 mg/dL 0.1-1.0 Serum or plasma alkaline phosphatase shellie surement (enzymatic activity/volume) 69 U/L 40-136 Serum or plasma aspartate aminotransfera se measurement (enzymatic activity/volume) 22 U/L 5-34 Serum or plasma alanine aminotransferase measurement (enzymatic activity/volume) 53 U/L 0-55 Serum or plasma protein measurement (mass/volume) 7.4 g/dL 6.4-8.2 Serum or plasma albumin measurement (mass/volume) 4.3 g/dL 3.2-4.5 Serum or plasma amylase measurement (enz ymatic activity/volume) - 07/15/17 23:00 Serum or plasma amylase measurement (enzymatic activit y/volume) 78 U/L 25-125 Lipase - 07/15/17 23:00 Lipase 21 U/L 8-78 Complete urinalysis with reflex to cultu re - 07/15/17 23:42 Urine color determination YELLOW NRG Urine clarity determination CLEAR NR G Urine pH measurement by test strip 6.5 5-9 Specific gravity of urine by test strip 1.015 1.016-1.022 Urine protein assay by test strip, semi-quantitative 2+ NEGATIVE Urine glucose detection by automated test strip 4+ NEGATIVE Erythrocytes detection in urine sediment by light micr oscopy NEGATIVE NEGATIVE Urine ketones detection by automated test strip NE GATIVE NEGATIVE Urine nitrite detection by test strip NEGATIVE NEGATIVE Urine total bilirubin detection by test strip NEGA TIVE NEGATIVE Urine urobilinogen measurement by automated test strip (mass/volume) NORMAL NORMAL Urine leukocyte esterase detection by dipstick NEG ATIVE NEGATIVE Automated urine sediment erythrocyte cou nt by microscopy (number/high power field) NONE NRG Automated urine sediment leukocyte count by microscopy (number/high power field) NONE NRG Bacteria detection in urine sediment by light microsco py NEGATIVE NRG Squamous epithelial cells detection in u rine sediment by light microscopy RARE NRG Crystals detection in urine sediment by light microsco py NONE NRG Casts detection in urine sediment by light microscopy NONE NRG Mucus detection in urine sediment by light microscopy NEGATIVE NRG Complete urinalysis with reflex to culture NO NRG PDM - 09 PANEL (PROFILE 1) - 05/04/18 09 :54 Creatinine 261.0 mg/dL > or = 20.0 pH 6.34 4.5 - 9.0 Oxidant NEGATIVE mcg/mL <200 Amphetamines NEGATIVE ng/mL <500 medMATCH Amphetamines CONSISTENT NRG Benzodiazepines NEGATIVE CONFIRMED ng/mL <100 Marijuana Metabolite NEGATIVE ng/mL <20 medMATCH Marijuana Metab CONSISTENT NRG Cocaine Metabolite NEGATIVE ng/mL <150 medMATCH Cocaine Metab CONSISTENT NRG Opiates NEGATIVE CONFIRMED ng/mL <100 Oxycodone POSITIVE ng/mL <100 COMMENT NRG Alphahydroxyalprazolam NEGATIVE ng/mL <25 medMATCH aOH alprazolam CONSISTENT NRG Alphahydroxymidazolam NEGATIVE ng/mL < 50 medMATCH aOH midazolam CONSISTENT NRG Alphahydroxytriazolam NEGATIVE ng/mL < 50 medMATCH aOH triazolam CONSISTENT NRG Aminoclonazepam NEGATIVE ng/mL <25 medMATCH Aminoclonazepam CONSISTENT NRG Hydroxyethylflurazepam NEGATIVE ng/mL <50 medMATCH OH,Et flurazepam CONSISTENT NR G Lorazepam NEGATIVE ng/mL <50 medMATCH Lorazepam CONSISTENT NRG Nordiazepam NEGATIVE ng/mL <50 medMATCH Nordiazepam CONSISTENT NRG Oxazepam NEGATIVE ng/mL <50 medMATCH Oxazepam CONSISTENT NRG Temazepam NEGATIVE ng/mL <50 medMATCH Temazepam CONSISTENT NRG Codeine NEGATIVE ng/mL <50 medMATCH Codeine CONSISTENT NRG Hydrocodone NEGATIVE ng/mL <50 medMATCH Hydrocodone CONSISTENT NRG Hydromorphone NEGATIVE ng/mL <50 medMATCH Hydromorphone CONSISTENT NRG Morphine NEGATIVE ng/mL <50 medMATCH Morphine CONSISTENT NRG Norhydrocodone NEGATIVE ng/mL <50 medMATCH Norhydrocodone CONSISTENT NRG Noroxycodone 6817 ng/mL <50 medMATCH Noroxycodone INCONSISTENT NRG Oxycodone 4949 ng/mL <50 medMATCH Oxycodone INCONSISTENT NRG Oxymorphone 3739 ng/mL <50 medMATCH Oxymorphone INCONSISTENT NRG Barbiturates NEGATIVE ng/mL <300 medMATCH Barbiturates CONSISTENT NRG Methadone Metabolite NEGATIVE ng/mL <100 medMATCH Methadone Metab CONSISTENT NRG Phencyclidine NEGATIVE ng/mL <25 medMATCH Phencyclidine CONSISTENT NRG LIPID PANEL - 08/07/18 08:18 CHOLESTEROL, TOTAL 147 mg/dL <200 HDL CHOLESTEROL 29 mg/dL >40 TRIGLYCERIDES 234 mg/dL <150 LDL-CHOLESTEROL 86 mg/dL (calc) NRG CHOL/HDLC RATIO 5.1 (calc) <5.0 NON HDL CHOLESTEROL 118 mg/dL (calc) <13 0 LIVER PANEL (LFT) - 01/08/19 12:11 PROTEIN, TOTAL 7.0 g/dL 6.1-8.1 ALBUMIN 4.5 g/dL 3.6-5.1 GLOBULIN 2.5 g/dL (calc) 1.9-3.7 ALBUMIN/GLOBULIN RATIO 1.8 (calc) 1.0-2. 5 BILIRUBIN, TOTAL 0.4 mg/dL 0.2-1.2 ALKALINE PHOSPHATASE 61 U/L 40-115 AST 31 U/L 10-35 ALT 36 U/L 9-46 BILIRUBIN, DIRECT 0.1 mg/dL < OR = 0.2 BILIRUBIN, INDIRECT 0.3 mg/dL (calc) 0.2 -1.2 LIVER PANEL (LFT) - 02/06/19 14:15 PROTEIN, TOTAL 7.0 g/dL 6.1-8.1 ALBUMIN 4.4 g/dL 3.6-5.1 GLOBULIN 2.6 g/dL (calc) 1.9-3.7 ALBUMIN/GLOBULIN RATIO 1.7 (calc) 1.0-2. 5 BILIRUBIN, TOTAL 0.4 mg/dL 0.2-1.2 ALKALINE PHOSPHATASE 64 U/L 40-115 AST 19 U/L 10-35 ALT 34 U/L 9-46 BILIRUBIN, DIRECT 0.1 mg/dL < OR = 0.2 BILIRUBIN, INDIRECT 0.3 mg/dL (calc) 0.2 -1.2 LIPID PANEL - 03/14/19 17:06 CHOLESTEROL, TOTAL 158 mg/dL <200 HDL CHOLESTEROL 32 mg/dL >40 TRIGLYCERIDES 250 mg/dL <150 LDL-CHOLESTEROL 93 mg/dL (calc) NRG CHOL/HDLC RATIO 4.9 (calc) <5.0 NON HDL CHOLESTEROL 126 mg/dL (calc) <13 0 PDM - 09 PANEL (PROFILE 1) - 04/23/19 11 :21 Prescribed Drug 1 Percocet(TM) NRG Creatinine 210.5 mg/dL > or = 20.0 pH 7.78 4.5 - 9.0 Oxidant NEGATIVE mcg/mL <200 Amphetamines NEGATIVE ng/mL <500 medMATCH Amphetamines CONSISTENT NRG Benzodiazepines NEGATIVE ng/mL <100 medMATCH Benzodiazepines CONSISTENT NRG Marijuana Metabolite NEGATIVE ng/mL <20 medMATCH Marijuana Metab CONSISTENT NRG Cocaine Metabolite NEGATIVE ng/mL <150 medMATCH Cocaine Metab CONSISTENT NRG Opiates NEGATIVE ng/mL <100 medMATCH Opiates CONSISTENT NRG Oxycodone POSITIVE ng/mL <100 COMMENT NRG Noroxycodone 1572 ng/mL <50 medMATCH Noroxycodone CONSISTENT NRG Oxycodone 57 ng/mL <50 medMATCH Oxycodone CONSISTENT NRG Oxymorphone 128 ng/mL <50 medMATCH Oxymorphone CONSISTENT NRG Barbiturates NEGATIVE ng/mL <300 medMATCH Barbiturates CONSISTENT NRG Methadone Metabolite NEGATIVE ng/mL <100 medMATCH Methadone Metab CONSISTENT NRG Phencyclidine NEGATIVE ng/mL <25 medMATCH Phencyclidine CONSISTENT NRG Complete blood count (CBC) with automate d white blood cell (WBC) differential - 04/26/19 13:05 Blood leukocytes automated count (number/volume) 6.8 10*3/uL 4.3-11.0 Blood erythrocytes automated count (number/volume) 4.46 10*6/uL 4.35-5.85 Venous blood hemoglobin measurement (mass/volume) 13.3 g/dL 13.3-17.7 Blood hematocrit (volume fraction) 39 % 40-54 Automated erythrocyte mean corpuscular volume 87 [ foz_us] 80-99 Automated erythrocyte mean corpuscular h emoglobin (mass per erythrocyte) 30 pg 25-34 Automated erythrocyte mean corpuscular h emoglobin concentration measurement (mass/volume) 34 g/dL 32-36 Automated erythrocyte distribution width ratio 12. 8 % 10.0- 14.5 Automated blood platelet count (count/volume) 236 10*3/uL 130-400 Automated blood platelet mean volume measurement 9.5 [foz_us] 7.4-10.4 Automated blood neutrophils/100 leukocytes 62 % 42-75 Automated blood lymphocytes/100 leukocytes 26 % 12-44 Blood monocytes/100 leukocytes 7 % 0-12 Automated blood eosinophils/100 leukocytes 4 % 0-10 Automated blood basophils/100 leukocytes 0 % 0-10 Blood neutrophils automated count (number/volume) 4.2 10*3 1.8-7.8 Blood lymphocytes automated count (number/volume) 1.8 10*3 1.0-4.0 Blood monocytes automated count (number/volume) 0. 5 10*3 0.0-1.0 Automated eosinophil count 0.3 10*3/uL 0 .0-0.3 Automated blood basophil count (count/volume) 0.0 10*3/uL 0.0-0.1 PT panel in platelet poor plasma by coag ulation assay - 04/26/19 13:05 Prothrombin time (PT) in platelet poor plasma by coagu lation assay 13.6 s 12.2-14.7 INR in platelet poor plasma or blood by coagulation as say 1.0 0.8-1.4 Activated partial thromboplastin time (a PTT) in platelet poor plasma bycoagulation assay - 04/26/19 13:05 Activated partial thromboplastin time (a PTT) in platelet poor plasma bycoagulation assay 31 s 24-35 Fibrin D-dimer FEU measurement in platel et poor plasma (mass/volume) - 04/26/19 13:05 Fibrin D-dimer FEU measurement in platelet poor plasma (mass/volume) 0.59 ug/mL 0.00-0.49 Comprehensive metabolic panel - 04/26/19 13:05 Serum or plasma sodium measurement (moles/volume) 138 mmol/L 135-145 Serum or plasma potassium measurement (moles/volume) 3.6 mmol/L 3.6-5.0 Serum or plasma chloride measurement (moles/volume) 102 mmol/L 98-107 Carbon dioxide 25 mmol/L 21-32 Serum or plasma anion gap determination (moles/volume) 11 mmol/L 5-14 Serum or plasma urea nitrogen measurement (mass/volume ) 19 mg/dL 7-18 Serum or plasma creatinine measurement (mass/volume) 0.83 mg/dL 0.60-1.30 Serum or plasma urea nitrogen/creatinine mass ratio 23 NRG Serum or plasma creatinine measurement w ith calculation of estimated glomerular filtration rate > NRG Serum or plasma glucose measurement (mass/volume) 278 mg/dL 70-105 Serum or plasma calcium measurement (mass/volume) 9.1 mg/dL 8.5-10.1 Serum or plasma total bilirubin measurement (mass/volu me) 0.4 mg/dL 0.1-1.0 Serum or plasma alkaline phosphatase shellie surement (enzymatic activity/volume) 63 U/L 40-136 Serum or plasma aspartate aminotransfera se measurement (enzymatic activity/volume) 12 U/L 5-34 Serum or plasma alanine aminotransferase measurement (enzymatic activity/volume) 27 U/L 0-55 Serum or plasma protein measurement (mass/volume) 7.6 g/dL 6.4-8.2 Serum or plasma albumin measurement (mass/volume) 4.3 g/dL 3.2-4.5 CALCIUM CORRECTED 8.9 mg/dL 8.5-10.1 Magnesium - 04/26/19 13:05 Magnesium 1.8 mg/dL 1.6-2.4 Serum or plasma troponin i.cardiac measu rement (mass/volume) - 04/26/19 13:05 Serum or plasma troponin i.cardiac measurement (mass/v olume) < ng/mL <0.028 Myoglobin, serum - 04/26/19 13:05 Myoglobin, serum 30.4 ng/mL 10.0-92.0 Serum or plasma troponin i.cardiac measu rement (mass/volume) - 04/26/19 19:13 Serum or plasma troponin i.cardiac measurement (mass/v olume) < ng/mL <0.028 Complete blood count (CBC) with automate d white blood cell (WBC) differential - 04/27/19 04:45 Blood leukocytes automated count (number/volume) 7.2 10*3/uL 4.3-11.0 Blood erythrocytes automated count (number/volume) 4.40 10*6/uL 4.35-5.85 Venous blood hemoglobin measurement (mass/volume) 13.1 g/dL 13.3-17.7 Blood hematocrit (volume fraction) 38 % 40-54 Automated erythrocyte mean corpuscular volume 87 [ foz_us] 80-99 Automated erythrocyte mean corpuscular h emoglobin (mass per erythrocyte) 30 pg 25-34 Automated erythrocyte mean corpuscular h emoglobin concentration measurement (mass/volume) 34 g/dL 32-36 Automated erythrocyte distribution width ratio 12. 5 % 10.0- 14.5 Automated blood platelet count (count/volume) 188 10*3/uL 130-400 Automated blood platelet mean volume measurement 10.1 [foz_us] 7.4-10.4 Automated blood neutrophils/100 leukocytes 55 % 42-75 Automated blood lymphocytes/100 leukocytes 29 % 12-44 Blood monocytes/100 leukocytes 9 % 0-12 Automated blood eosinophils/100 leukocytes 6 % 0-10 Automated blood basophils/100 leukocytes 0 % 0-10 Blood neutrophils automated count (number/volume) 4.0 10*3 1.8-7.8 Blood lymphocytes automated count (number/volume) 2.1 10*3 1.0-4.0 Blood monocytes automated count (number/volume) 0. 7 10*3 0.0-1.0 Automated eosinophil count 0.4 10*3/uL 0 .0-0.3 Automated blood basophil count (count/volume) 0.0 10*3/uL 0.0-0.1 Comprehensive metabolic panel - 04/27/19 05:00 Serum or plasma sodium measurement (moles/volume) 141 mmol/L 135-145 Serum or plasma potassium measurement (moles/volume) 3.9 mmol/L 3.6-5.0 Serum or plasma chloride measurement (moles/volume) 105 mmol/L 98-107 Carbon dioxide 26 mmol/L 21-32 Serum or plasma anion gap determination (moles/volume) 10 mmol/L 5-14 Serum or plasma urea nitrogen measurement (mass/volume ) 13 mg/dL 7-18 Serum or plasma creatinine measurement (mass/volume) 0.78 mg/dL 0.60-1.30 Serum or plasma urea nitrogen/creatinine mass ratio 17 NRG Serum or plasma creatinine measurement w ith calculation of estimated glomerular filtration rate > NRG Serum or plasma glucose measurement (mass/volume) 154 mg/dL 70-105 Serum or plasma calcium measurement (mass/volume) 9.1 mg/dL 8.5-10.1 Serum or plasma total bilirubin measurement (mass/volu me) 0.5 mg/dL 0.1-1.0 Serum or plasma alkaline phosphatase shellie surement (enzymatic activity/volume) 49 U/L 40-136 Serum or plasma aspartate aminotransfera se measurement (enzymatic activity/volume) 12 U/L 5-34 Serum or plasma alanine aminotransferase measurement (enzymatic activity/volume) 21 U/L 0-55 Serum or plasma protein measurement (mass/volume) 6.5 g/dL 6.4-8.2 Serum or plasma albumin measurement (mass/volume) 3.9 g/dL 3.2-4.5 CALCIUM CORRECTED 9.2 mg/dL 8.5-10.1 Lipid 1996 panel - 04/27/19 05:00 Serum or plasma triglyceride measurement (mass/volume) 310 mg/dL <150 Serum or plasma cholesterol measurement (mass/volume) 177 mg/dL < 200 Serum or plasma cholesterol in HDL measurement (mass/v olume) 28 mg/dL 40-60 Cholesterol in LDL [mass/volume] in serum or plasma by direct assay 104 mg/dL 1-129 Serum or plasma cholesterol in VLDL measurement (mass/ volume) 62 mg/dL 5-40 Methicillin resistant Staphylococcus aur eus (MRSA) screening culture - 05/03/19 14:40 Methicillin resistant Staphylococcus aureus (MRSA) scr eening culture NEG NRG Capillary blood glucose measurement by g lucometer (mass/volume) - 05/07/19 06:27 Capillary blood glucose measurement by glucometer (mas s/volume) 141 mg/dL 70-110 Complete blood count (CBC) with automate d white blood cell (WBC) differential - 06/28/19 00:01 Blood leukocytes automated count (number/volume) 12.1 10*3/uL 4.3-11.0 Blood erythrocytes automated count (number/volume) 4.42 10*6/uL 4.35-5.85 Venous blood hemoglobin measurement (mass/volume) 13.3 g/dL 13.3-17.7 Blood hematocrit (volume fraction) 39 % 40-54 Automated erythrocyte mean corpuscular volume 88 [ foz_us] 80-99 Automated erythrocyte mean corpuscular h emoglobin (mass per erythrocyte) 30 pg 25-34 Automated erythrocyte mean corpuscular h emoglobin concentration measurement (mass/volume) 34 g/dL 32-36 Automated erythrocyte distribution width ratio 12. 6 % 10.0- 14.5 Automated blood platelet count (count/volume) 230 10*3/uL 130-400 Automated blood platelet mean volume measurement 9.4 [foz_us] 7.4-10.4 Automated blood neutrophils/100 leukocytes 67 % 42-75 Automated blood lymphocytes/100 leukocytes 22 % 12-44 Blood monocytes/100 leukocytes 7 % 0-12 Automated blood eosinophils/100 leukocytes 4 % 0-10 Automated blood basophils/100 leukocytes 0 % 0-10 Blood neutrophils automated count (number/volume) 8.1 10*3 1.8-7.8 Blood lymphocytes automated count (number/volume) 2.6 10*3 1.0-4.0 Blood monocytes automated count (number/volume) 0. 8 10*3 0.0-1.0 Automated eosinophil count 0.5 10*3/uL 0 .0-0.3 Automated blood basophil count (count/volume) 0.0 10*3/uL 0.0-0.1 Comprehensive metabolic panel - 06/28/19 00:01 Serum or plasma sodium measurement (moles/volume) 138 mmol/L 135-145 Serum or plasma potassium measurement (moles/volume) 4.0 mmol/L 3.6-5.0 Serum or plasma chloride measurement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
[2020-03-18 16:15] VITALS: BP 132/82
--- OUTSIDE RECORDS SUMMARY | 2020-03-18 16:17 | XMS REPORT | Encounter Summary ---
Author Author [facility] Organization [facility] Address Unknown Phone Unavailable Care Team Providers Care Spooling Supervisor Name Role Phone PCP Unavailable Reason for Visit * Reason Comments Follow-up ALIE Low back/DOI 015/Scheduled by Xiomara with WC Atty [phone]/Court ordered by Judge Db strauss/Docket # [id number]/WC atty Rommel Ames/Pt Atty David Saldana/07-14 crsTVX: Appt. Reminder Encounter Details Care Team Description Date Type Department Silver Min MD [address] [facility] [address] [place] [address] 11/15/2016 Hist-[facility]men [facility] [address] [facility] [address] [place] [address] Social History Date Tobacco Use [...]
--- OUTSIDE RECORDS SUMMARY | 2020-03-18 16:17 | XMS REPORT | Encounter Summary ---
Author Author [facility] Organization [facility] Address Unknown Phone Unavailable Care Team Providers Care Lidder Name Role Phone PCP Unavailable Encounter Details Care Team Description Date Type Department iSlver Min MD [address] [facility] [address] [place], [place] [id number] 08/03/2016 Hist-Telephone [facility] [address] [facility] [address] [place] [address] Social History Date Tobacco Use [...] Silver Min MD - 08/03/2016 2:41 PM FIRST MATE Scheduled by Xiomara with Atty at [phone] SONIA APPOINTMENT [place] or 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
--- OUTSIDE RECORDS SUMMARY | 2020-03-18 16:17 | XMS REPORT | Clinical Summary ---
Author Author [facility] Organization [facility] Address Unknown Phone Unavailable Care Team Providers Care Technical Sales Representatives Name Role Phone David Mercedes HOOP BENDING MACHINE OPERATOR PCP Source Comments Some departments are not documenting in the electronic medical record. If you d o not see the information that you expected, contact Release of Information in [facility] [employer] Information Management department at [phone] for further assistan ce in locating additional records.[facility] Allergies No Known Allergies Medications Not on [...] Comments Vital Sign 164/70 10/03/2017 6:00 AM NURSE PRACTITIONER PER DIEM Blood Pressure 78 10/03/2017 6:00 AM NURSE PRACTITIONER PER DIEM Pulse 36.4 C (97.5 F) 10/03/2017 12:55 AM NURSE PRACTITIONER PER DIEM Temperature - - Respiratory Rate 97% 10/03/2017 6:00 AM NURSE PRACTITIONER PER DIEM Oxygen Saturation - - Inhaled Oxygen Concentration 120.2 kg (265 lb) 10/03/2017 12:55 AM NURSE PRACTITIONER PER DIEM Weight - - Height - - Body [...] Phone Address Plan / Dates Group Medicaid [facility] MEDICAID [place] xxxxxxxxxxx 2010- [facility] Present HEALTH Advance Directives Patient Manager Recruitment Explanation Type Date Recorded Advance 10/03/2017 12:49 AM Directive/DPOA
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
--- OUTSIDE RECORDS SUMMARY | 2020-03-18 16:17 | XMS REPORT | Encounter Summary ---
Author Author [facility] Organization [facility] Address Unknown Phone Unavailable Care Team Providers Care Hospital Attendant Name Role Phone PCP Unavailable Encounter Details Care Team Description Date Type Department Silver Min MD [address] [facility] [address] [place] [address] [phone] 11/15/2016 Hist-Transcript [facility] Encounter Specialists [address] [facility] [address] [place], [place] [id number] Social History Date Tobacco Use Types Packs/Day Years Used Never Assessed Sex Assigned at Date Recorded Not on file Industry Job Start Date Occupation Not on file Not on file Not on file Travel End Travel History Travel Start No recent travel history available. documented as of this encounter Progress Notes * Silver Min MD - 11/15/2016 10:39 AM BANNER PAINTER imported MRI Lumbar 2-8-17 [address] [place] [address] [phone] -Arlene Floyd, November 15, 2016 10:40 AM ER PAINTER documented in this encounter Plan of Treatment Not on filedocumented as of this encounter Visit Diagnoses Not on filedocumented in this encounter
--- OUTSIDE RECORDS SUMMARY | 2020-03-18 16:17 | XMS REPORT | Encounter Summary ---
Author Author [facility] Organization [facility] Address Unknown Phone Unavailable Care Team Providers Care Tanbark Peeler Name Role Phone PCP Unavailable Encounter Details Care Team Description Date Type Department Silver Min MD [address] [facility] [address] [place] [address] [phone] 03/20/2018 [facility] [address] [facility] [address] [place], [place] [id number] Social History Date Tobacco Use Types Packs/Day [...] from Xiomara Fields with attorneys office [phone]. I gave her additional depo dates for [...]
--- OUTSIDE RECORDS SUMMARY | 2020-03-18 16:17 | XMS REPORT | Clinical Summary ---
Author Author [facility] Organization [facility] Address Unknown Phone Unavailable Care Team Providers Care Diesel Maintenance Technician Name Role Phone PCP Unavailable Allergies Not [...]
[2020-03-18] MEDS: ACETAMINOPHEN 325 MG TABLET PO PRN ×2 (16:20→22:51)
[2020-03-18] MEDS: inSUlin ASPART (NovoLOG) 1 UNIT/0.01 ML (CHARGE PER UNIT) SC SCH ×2 (16:21→20:44)
--- OUTSIDE RECORDS SUMMARY | 2020-03-18 16:55 | XMS REPORT | Continuity of Care Document ---
Demographics Preferred Language Unknown Marital Status Unknown [employer] Affiliation Unknown Race Unknown Ethnic Group Unknown Author Organization Unknown Address Unknown Phone Unavailable Allergies Active Description Code Type Severity Reaction Onset Reported/Identified Relationship to Patient Clinical Status Yes No Known Drug Allergies [id number] Drug Allergy Unknown N/A 05/22/2016 Medications There [...] Z01.812 ENCOUNTER FOR PREPROCEDURAL LABORATORY E 04/09/2016 FALLON ALONSO MD Ot Z11.2 ENCOUNTER FOR SCREENING FOR OTHER BACTER 04/15/2016 FALLON ALONSO MD Ot Z47.1 AFTERCARE FOLLOWING JOINT REPLACEMENT MONTOYA 04/15/2016 FALLON ALONSO MD Ot Z96.651 PRESENCE OF [...] FOLLOWING A PROCEDURE, INITIAL 05/15/2016 FABIANA CARRINGTON NUDE MODEL Ot Z96.651 PRESENCE OF RIGHT ARTIFICIAL KNEE [...] 05/22/2016 JENNIFER DASH MD Ot Z79.899 OTHER CLAIM MANAGER (CURRENT) DRUG THERAPY 05/22/2016 JENNIFER DASH MD, [...] I10 ESSENTIAL (PRIMARY) HYPERTENSION 07/16/2017 NINFA JERRICA VELEZ Ot K52.9 NONINFECTIVE GASTROENTERITIS AND COLITIS 07/16/2017 [...] ADULT 04/27/2019 LEFTY VELEZ MARCELLUS Ot Z79.84 CLAIM MANAGER (CURRENT) USE OF ORAL HYPOGLYC 04/27/2019 LEFTY VELEZ MARCELLUS Ot Z96.65 3 PRESENCE OF ARTIFICIAL KNEE JOINT, BILAT 05/01/2019 REYNA WAYNE PARKING METER INSTALLER Ot E66.01 MORBID (SEVERE) OBESITY DUE TO EXCESS CA 05/01/2019 REYNA WAYNE PARKING METER INSTALLER Ot M47.26 OTHER SPONDYLOSIS WITH RADICULOPATHY, LINDA 05/01/2019 REYNA WAYNE PARKING METER INSTALLER Ot M48.061 SPINAL STENOSIS, LUMBAR REGION WITHOUT N 05/01/2019 REYNA WAYNE PARKING METER INSTALLER Ot M48.07 SPINAL STENOSIS, LUMBOSACRAL REGION 05/02/2019 REYNA WAYNE PARKING METER INSTALLER Ot E66.01 MORBID (SEVERE) OBESITY DUE TO EXCESS CA 05/02/2019 REYNA WAYNE PARKING METER INSTALLER Ot M47.26 OTHER SPONDYLOSIS WITH RADICULOPATHY, LINDA 05/02/2019 REYNA WAYNE PARKING METER INSTALLER Ot M48.061 SPINAL STENOSIS, LUMBAR REGION WITHOUT N 05/02/2019 REYNA WAYNE PARKING METER INSTALLER Ot M48.07 SPINAL STENOSIS, LUMBOSACRAL REGION 05/02/2019 [...] DUE TO EXCESS CA 05/02/2019 REYNA WAYNE PARKING METER INSTALLER Ot M47.26 OTHER SPONDYLOSIS WITH RADICULOPATHY, LINDA 05/02/2019 REYNA WAYNEP Ot M48.061 SPINAL STENOSIS, LUMBAR REGION WITHOUT N 05/02/2019 REYNA WAYNE PARKING METER INSTALLER Ot M48.07 SPINAL STENOSIS, LUMBOSACRAL REGION 05/02/2019 [...] JASON DPM, CHENG Q Ot Z79.899 OTHER CLAIM MANAGER (CURRENT) DRUG THERAPY 05/07/2019 JASON DPM, CHENG Q Ot Z82. 49 FAMILY HX OF ISCHEM HEART DIS AND OTH DI 05/07/2019 JASON DPM, CHENG Q Ot Z99. 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 05/11/2019 REYNA WAYNE Ot E66.01 MORBID (SEVERE) OBESITY DUE TO EXCESS CA 05/11/2019 REYNA WAYNE PARKING METER INSTALLER Ot M47.26 OTHER SPONDYLOSIS WITH RADICULOPATHY, LINDA 05/11/2019 REYNA WAYNEP Ot M48.061 SPINAL STENOSIS, LUMBAR REGION WITHOUT N 05/11/2019 REYNA AWYNE Ot M48.07 SPINAL STENOSIS, LUMBOSACRAL REGION 05/22/2019 [...] ADULT 06/28/2019 JENNIFER DASH MD Ot Z79.84 CLAIM MANAGER (CURRENT) USE OF ORAL HYPOGLYC 06/28/2019 JENNIFER [...] MD, Ot E66.9 OBESITY, UNSPECIFIED 07/02/2019 JENNIFER DASH MD, Ot E78.00 PURE HYPERCHOLESTEROLEMIA, UNSPECIFIED 07/02/2019 JENNIFER DASH MD, Ot F32.9 MAJOR DEPRESSIVE DISORDER, SINGLE EPISOD 07/02/2019 JENNIFER DASH MD, Ot G47.30 SLEEP APNEA, UNSPECIFIED 07/02/2019 JENNIFER DASH MD Ot I10 ESSENTIAL (PRIMARY) HYPERTENSION 07/02/2019 JENNIFER DASH MD Ot R07.9 CHEST PAIN, UNSPECIFIED 07/02/2019 JENNIFER DASH MD, Ot Z68.41 BODY MASS INDEX (BMI) 40.0-44.9, ADULT 07/02/2019 JENNIFER DASH MD, Ot Z79.84 CLAIM MANAGER (CURRENT) USE OF ORAL HYPOGLYC 07/02/2019 JENNIFER [...] JASON DPM, CHENG Q Ot Z79.899 OTHER CLAIM MANAGER (CURRENT) DRUG THERAPY 07/25/2019 JASON DPM, CHENG [...] Code Description Performed By Per formed On [id number] RE PLACE OF L KNEE JT WITH SYNTH SUB JASE 02/04/[id number] OF R KNEE JT WITH [...] Blood type T Indirect antibody screen [facility] 04/21/16 07:45 ABO+Rh group AP NRG Transfusion band number [id number] NR Blood group antibody screen NEGATIVE NR G Whole blood hemoglobin and hematocrit [facility] 04/22/16 06:23 Venous blood hemoglobin measurement (mass/volume) 11.9 g/dL 13.3-17.7 Blood hematocrit (volume fraction) 35 % 40-54 Whole blood hemoglobin and hematocrit [facility] 04/23/16 05:57 Venous blood hemoglobin measurement (mass/volume) 8.5 g/dL 13.3-17.7 Blood hematocrit (volume fraction) 25 % 40-54 Whole blood hemoglobin and hematocrit [facility] 04/24/16 05:43 Venous blood hemoglobin measurement (mass/volume) [...] 17:47 Bacteria identification in wound by culture [id number] NRG FREE TEXT EXTERNAL SENSITIVITY REPORTED [...] protein measurement (mass/v olume) 4.43 mg/dL 0.00-0.50 Capillary blood glucose measurement by g lucometer (mass/volume) - 03/18/20 16:12 Capillary blood glucose measurement by glucometer (mas s/volume) 304 mg/dL 70-110 Encounters ACCT No. Visit Date/Time Discharge Status Pt. Type Provider Facility Loc./Unit Complaint [id number] 05/28/2016 08:48:00 Document Registration [id number] 06/27/2019 23:55:00 01:51:00 DIS Emergency JENNIFER DASH MD Via [facility] ER CP [id number] 05/07/2019 06:06:00 12:45:00 DIS Outpatient JASON DPM, CHENG Q [facility] SDC LEFT HALLUX VALGUS [id number] 05/03/2019 06:39:00 16:00:00 DIS Outpatient JASON DPM, CHENG Q [facility] PREOP HAMMERTOE LEFT SECOND [id number] 04/27/2019 14:59:00 23:59:59 CLS Outpatient REYNA WAYNE [facility] RAD LUMBAR NEURITIS [id number] 04/26/2019 14:18:00 12:45:00 DIS Outpatient MARCELLUS OLEA DO [facility] CATH CHEST PAIN [id number] 03/29/2019 09:08:00 23:59:59 CLS Outpatient MELVIN ESPITIA MD [facility] CARD CHEST PAIN, UNSPECIFIED [id number] 01/18/2019 05:37:00 23:59:59 CLS Outpatient JASON DPM, CHENG Q [facility] PREOP LEFT HALLUX VALGUS [id number] 07/15/2017 23:00:00 01:25:00 DIS Emergency NINFAJERRICA Lutz DO Vi [facility] ER N/V [id number] 10/20/2016 14:39:00 23:59:59 CLS Outpatient FALLON ALONSO MD [facility] RAD LUMBAR RADICULOPATHY [id number] 09/23/2016 08:31:00 09:54:00 DIS Outpatient FALLON ALONSO MD [facility] REHAB LUMBAR RADICULOPATHY [id number] 06/10/2016 08:02:00 08:57:00 DIS Outpatient FALLON ALONSO MD Via [facility] REHAB S/P R TKR [id number] 05/22/2016 16:36:00 18:50:00 DIS Emergency JENNIFER DASH MD [facility] ER POST KNEE REPLA CEMENT/R KNEE DRAINAGE [id number] 05/15/2016 17:30:00 19:19:00 DIS Emergency FABIANA CARRINGTON APRN Via [facility] ER R KNEE PAIN POST OP [id number] 04/21/2016 07:20:00 11:13:00 DIS Inpatient FALLON ALONSO MD [facility] 4TH RT.KNEE ARTHOARTRITIS [id number] 04/15/2016 08:14:00 09:18:00 DIS Outpatient FALLON ALONSO MD Via [facility] REHAB OA L KNEE; S/P TKR [id number] 04/08/2016 09:03:00 15:27:00 DIS Outpatient FALLON ALONSO MD [facility] PREOP RT.KNEE ARTHOARTHRITIS [id number] 03/29/2016 13:28:00 23:59:59 CLS Outpatient FALLON ALONSO MD [facility] RAD TOTAL KNEE REPLACEMENT [id number] 02/04/2016 07:42:00 13:00:00 DIS Inpatient FALLON ALONSO MD Via [facility] 4TH LEFT KNEE OSTEOARTHRITI S [id number] 01/28/2016 09:46:00 10:30:00 DIS Outpatient FALLON ALONSO MD Via [facility] PREOP LEFT KNEE OSTEOARTHRIT IS [id number] 01/24/2016 01:49:00 03:10:00 DIS Emergency JENNIFER DASH MD [facility] ER SOB [id number] 01/16/2016 13:34:00 23:59:59 CLS Outpatient FALLON ALONSO MD [facility] RAD PREOP L TOTAL KNEE REP LACEMENT [id number] 03/18/2020 11:51:00 Document Registration [id number] 01/27/2012 09:43:00 Document Registration [id number] 03/17/2020 16:20:00 ACT Outpatient REYNA WAYNE APRN [facility] [id number] 11/19/2019 16:40:00 Document Registration [id number] 04/23/2019 11:20:00 Document Registration [id number] 03/14/2019 16:40:00 Document Registration [id number] 02/06/2019 14:20:00 Document Registration [id number] 01/08/2019 09:40:00 Document Registration [id number] 08/07/2018 08:20:00 Document Registration [id number] 05/04/2018 09:20:00 Document Registration [id number] 05/30/2017 12:40:00 Document Registration [id number] 05/31/2017 11:09:00 Document Registration
[2020-03-18] MEDS: RT-ALBUTEROL INHALER HFA (VENTOLIN HFA) 8 GM IH SCH ×2 (18:53→21:48)
[2020-03-18] MEDS: guaiFENesin (MUCINEX) 600 MG TAB PO SCH (20:37)
[2020-03-18 20:40] VITALS: BP 131/83
--- NOTE | 2020-03-18 21:22 | History & Physical ---
HPI History of Present Illness: 54 yo M that presents to ER with increasing shortness of breath and severe muscle aches. Patient states that his son that lives with him was told he was positive for COVID yesterday and his and him both have symptoms and were tested today. Patient has had chills but has not taken his temperature. He has had decreased fluid intake. States that he has not been anywhere but his works at [employer]. Son had a cough but was tested as a pre op patient. No one else lives in the home at this time. Source: patient Exam Limitations: no limitations Date seen by provider: Mar 18, 2020 Time Seen by Provider: 18:00 Attending Physician Jennie Mckeon MD PCP Arlene Fabian DO Consult Date of Admission Mar 18, 2020 at 12:05 Home Medications Home Medications Reviewed patient Home Medication Reconciliation performed by pharmacy medication reconciliations bench technician and/or nursing. Patients Allergies have been reviewed. Allergies Coded Allergies: No Known Drug Allergies (Unverified , 05/22/16) DIN-Lcblis-Jkdgzz Hx Patient Social History Living Status: Lives at home with and son Alcohol Use: Occasionally Uses Recreational Drug Use: No (OCCASIONALLY) Smoking Status: Former Smoker Type Used: Cigarettes 2nd Hand Smoke Exposure: No Recent Foreign Travel: No Contact w/other who traveled: No Recent Hopitalizations: No Recent Infectious Disease Expo: Yes Immunizations Up To Date Tetanus Booster (TDap): Unknown Date of Influenza Vaccine: Jun 19, 2018 Past Medical History HTN NIDDM Family Medical History Significant Family History: Heart Disease, Diabetes, Hypertension Family History: Completed stroke 19 MOTHER Hypertension 19 MOTHER Myocardial infarction G8 SISTER Review of Systems (CHC) Constitutional: chills, malaise, weakness EENTM: nose congestion, throat pain; No mouth pain Respiratory: cough, dyspnea on exertion, short of breath Cardiovascular: no symptoms reported; No chest pain, No edema, No palpitations Gastrointestinal: No abdominal pain, No constipation, No diarrhea; loss of appetite; No nausea, No vomiting Genitourinary: no symptoms reported; No dysuria, No frequency, No hematuria Musculoskeletal: muscle pain Skin: no symptoms reported; No lesions, No rash Psychiatric/Neurological: Headache, Weakness Reviewed Test Results Reviewed Test Results Lab Laboratory Tests Test 03/18/20 11:29 03/18/20 11:43 03/18/20 16:12 03/18/20 20:33 Range/Units White Blood Count 6.5 4.3-11.0 10^3/uL Red Blood Count 4.74 4.35-5.85 10^6/uL Hemoglobin 14.1 13.3-17.7 G/DL Hematocrit 41 40-54 % Mean Corpuscular Volume 86 80-99 FL Mean Corpuscular Hemoglobin 30 25-34 PG Mean Corpuscular Hemoglobin Concent 35 32-36 G/DL Red Cell Distribution Width 12.6 10.0-14.5 % Platelet Count 155 130-400 10^3/uL Mean Platelet Volume 9.9 7.4-10.4 FL Neutrophils (%) (Auto) 75 42-75 % Lymphocytes (%) (Auto) 15 12-44 % Monocytes (%) (Auto) 10 0-12 % Eosinophils (%) (Auto) 0 0-10 % Basophils (%) (Auto) 0 0-10 % Neutrophils # (Auto) 4.9 1.8-7.8 X 10^3 Lymphocytes # (Auto) 1.0 1.0-4.0 X 10^3 Monocytes # (Auto) 0.6 0.0-1.0 X 10^3 Eosinophils # (Auto) 0.0 0.0-0.3 10^3/uL Basophils # (Auto) 0.0 0.0-0.1 10^3/uL D-Dimer 0.46 0.00-0.49 UG/ML Sodium Level 133 L 135-145 MMOL/L Potassium Level 4.2 3.6-5.0 MMOL/L Chloride Level 96 L 98-107 MMOL/L Carbon Dioxide Level 25 21-32 MMOL/L Anion Gap 12 5-14 MMOL/L Blood Urea Nitrogen 20 H 7-18 MG/DL Creatinine 0.97 0.60-1.30 MG/DL Estimat Glomerular Filtration Rate > 60 BUN/Creatinine Ratio 21 Glucose Level 219 H 70-105 MG/DL Lactic Acid Level 1.03 0.50-2.00 MMOL/L Calcium Level 9.3 8.5-10.1 MG/DL Corrected Calcium 9.4 8.5-10.1 MG/DL Total Bilirubin 0.4 0.1-1.0 MG/DL Aspartate Amino Transf (AST/SGOT) 21 5-34 U/L Alanine Aminotransferase (ALT/SGPT) 28 0-55 U/L Alkaline Phosphatase 65 40-136 U/L C-Reactive Protein High Sensitivity 4.43 H 0.00-0.50 MG/DL B-Type Natriuretic Peptide 11.9 <100.0 PG/ML Total Protein 7.2 6.4-8.2 GM/DL Albumin 3.9 3.2-4.5 GM/DL Procalcitonin 0.07 <0.10 NG/ML Glucometer 304 H 192 H 70-110 MG/DL Physical Exam-(CHC) Physical Exam Vital Signs VS - Last 72 Hours, by Label 03/18/20 03/18/20 03/18/20 03/18/20 11:18 13:26 13:36 13:44 Temp 37.0 37.1 Pulse 79 71 71 73 Resp 13 15 B/P (MAP) 147/105 (119) 157/101 Pulse Ox 99 97 97 O2 Delivery Room Air Nasal Cannula O2 Flow Rate 2.00 FiO2 28 03/18/20 03/18/20 03/18/20 03/18/20 13:45 13:52 14:14 16:15 Temp 37.1 37.6 Pulse 71 72 Resp 20 20 B/P (MAP) 132/87 132/82 (99) Pulse Ox 97 97 97 O2 Delivery Nasal Cannula Nasal Cannula Nasal Cannula Nasal Cannula O2 Flow Rate 2.00 2.00 2.00 2.00 03/18/20 03/18/20 03/18/20 16:20 18:45 20:40 Temp 37.6 37.1 Pulse 70 Resp 20 B/P (MAP) 131/83 (99) Pulse Ox 95 97 O2 Delivery Nasal Cannula Nasal Cannula O2 Flow Rate 2.00 2.00 Capillary Refill : Less Than 3 Seconds General Appearance: mild distress HEENT: PERRL/EOMI Neck: non-tender, full range of motion, supple Respiratory: decreased breath sounds, accessory muscle use, crackles, wheezing Cardiovascular: normal peripheral pulses, regular rate, rhythm, no edema, no murmur Gastrointestinal: normal bowel sounds, non tender, soft, no organomegaly Back: no CVA tenderness, no vertebral tenderness Extremities: normal range of motion, non-tender, normal inspection, no pedal edema, no calf tenderness, normal capillary refill Neurologic/Psychiatric: nurse charge rn II-XII nml as tested, no motor/sensory deficits, alert, normal mood/affect, oriented x 3 Skin: normal color, diaphoresis Lymphatic: no adenopathy Assessment/Plan Assessment/Plan Admission Status: Inpatient Order (span 2 midnights) Reason for Inpatient Admission: Patient requiring close observation and has new oxygen requirement with close exposure to COVID (1) Hypoxia Status: Acute Assessment & Plan: - CXR with bilateral infiltrates, will titrate oxygen as tolerated, MAT protocol, inhaler use ONLY (2) Fever Status: Acute Qualifiers: Qualified Codes: R50.9 - Fever, unspecified (3) Exposure to SARS-associated coronavirus Status: Acute Assessment & Plan: - son at home positive yesterday, patient's symptoms started yesterday (4) HTN (hypertension) Status: Chronic Assessment & Plan: - Normocytic blood pressures, will hold home meds at this time Qualifiers: Qualified Codes: I10 - Essential (primary) hypertension (5) Non-insulin dependent type 2 diabetes mellitus Status: Chronic Assessment & Plan: - Holding metformin, Accucheck AC/HS, SSI (6) DVT prophylaxis Status: Acute Assessment & Plan: - Lovenox PPX Clinical Quality Measures DVT/VTE Risk/Contraindication: Risk Factor Score Per Nursin RFS Level Per Nursing on Admit: 2=Moderate JENNIE MCKEON MD Mar 18, 2020 21:22
[2020-03-18 22:52] VITALS: BP 145/89
[2020-03-19] MEDS: RT-ALBUTEROL INHALER HFA (VENTOLIN HFA) 8 GM IH SCH ×4 (02:32→14:56)
[2020-03-19 03:21] VITALS: BP 160/81
[2020-03-19] MEDS: ACETAMINOPHEN 325 MG TABLET PO PRN ×3 (03:26→14:39)
[2020-03-19] MEDS: LACTATED RINGERS 1,000 ML IV SCH ×2 (03:35→10:45)
[2020-03-19] MEDS: inSUlin ASPART (NovoLOG) 1 UNIT/0.01 ML (CHARGE PER UNIT) SC SCH ×2 (06:36→10:46)
[2020-03-19 06:42] LABS: BASOPHILS % (AUTO) 0 % (0-10); EOSINOPHILS % (AUTO) 0 % (0-10); HEMATOCRIT 39 % (40-54); HEMOGLOBIN 13.1 G/DL (13.3-17.7); LYMPHOCYTES # (AUTO) 0.8 X 10^3 (1.0-4.0); LYMPHOCYTES % (AUTO) 16 % (12-44); MEAN CORPUSCULAR HEMOGLOBIN 30 PG (25-34); MEAN CORPUSCULAR HGB CONC 34 G/DL (32-36); MEAN CORPUSCULAR VOLUME 87 FL (80-99); MEAN PLATELET VOLUME 9.7 FL (7.4-10.4); MONOCYTES # (AUTO) 0.5 X 10^3 (0.0-1.0); MONOCYTES % (AUTO) 10 % (0-12); NEUTROPHILS # (AUTO) 3.8 X 10^3 (1.8-7.8); NEUTROPHILS % (AUTO) 74 % (42-75); PLATELET COUNT 132 10^3/uL (130-400); RED CELL DISTRIBUTION WIDTH 12.4 % (10.0-14.5); WHITE BLOOD COUNT 5.1 10^3/uL (4.3-11.0)
[2020-03-19 06:55] LABS: ALBUMIN 3.4 GM/DL (3.2-4.5)
[2020-03-19 06:56] LABS: CHLORIDE 103 MMOL/L (98-107); POTASSIUM 4.3 MMOL/L (3.6-5.0); SODIUM 137 MMOL/L (135-145)
[2020-03-19 06:57] LABS: CALCIUM 8.8 MG/DL (8.5-10.1)
[2020-03-19 06:58] LABS: GLUCOSE 182 MG/DL (70-105); TOTAL PROTEIN 6.3 GM/DL (6.4-8.2)
[2020-03-19 06:59] LABS: CARBON DIOXIDE 23 MMOL/L (21-32)
[2020-03-19 07:00] LABS: BILIRUBIN,TOTAL 0.3 MG/DL (0.1-1.0)
[2020-03-19 07:01] LABS: ALKALINE PHOSPHATASE 60 U/L (40-136)
[2020-03-19 07:02] LABS: CREATININE SERUM 0.84 MG/DL (0.60-1.30); GFR ESTIMATED > 60
[2020-03-19 07:03] LABS: BUN/CREATININE RATIO 19
[2020-03-19 07:04] LABS: ALANINE AMINOTRANSFERASE 31 U/L (0-55)
[2020-03-19] MEDS: guaiFENesin (MUCINEX) 600 MG TAB PO SCH (07:36)
[2020-03-19] MEDS ORDERED: AZITHROMYCIN 250 MG TAB (ZITHROMAX) PO SCH (09:00)
--- NOTE | 2020-03-19 09:38 | NUR ---
Positive COVID results called to [facility]. Will fax facesheet and lab results to [phone] per request of Ramone at the [facility].
--- NOTE | 2020-03-19 10:25 | NUR ---
THIS RN PULLED AND CHARTED ALL A.M. MEDICATIONS FOR PRIMARY RN Jorge Luis DILL. THIS RN WILL BE THE RUNNER FOR THIS PATIENT THROUGHOUT THE DAY.
[2020-03-19 10:39] VITALS: BP 149/60
--- NOTE | 2020-03-19 10:44 | NUR ---
6 UNITS NOVOLOG PULLED AND GIVEN TO CRISTIAN VOGEL TO GIVE TO THIS PATIENT FOR ELEVATED BLOOD SUGAR THIS A.M.
--- NOTE | 2020-03-19 11:05 | NUR ---
RT NOTIFIED OF HOME 02 EVAL ORDERED FOR PT.
--- NOTE | 2020-03-19 11:45 | NUR ---
INDY MENON) called to inquire about emergency contacts and how this patient presented to this facility. Addendum: 03/19/20 at 1152 by LUZ FRIEND RN left her contact information of EXT: [phone]
--- NOTE | 2020-03-19 11:53 | NUR ---
PT HAD A DESATURATION FOR 1 MINUTE OF 82%. PT THEN STOPPED PUT ON NC WITH 2L NC AND O2 CAME UP TO 96%. PT RESUMED O2 WALK. PT STAYED 95% FOR THE REST OF THE WALK. Addendum: 03/19/20 at 1154 by KAHLIL MUNIZ RT Amended: Links added.
[2020-03-19] MEDS ORDERED: PIOG15TA67 PO (12:14)
[2020-03-19] MEDS: ENOXAPARIN 40 MG/0.4 ML (LOVENOX) SYR SC SCH (13:17)
--- NOTE | 2020-03-19 13:51 | Discharge Summary ---
Discharge Summary Hospital Course Was the Problem List Reviewed?: Yes Problems/Dx: (1) COVID-19 Status: Acute (2) Acute respiratory failure with hypoxia Status: Acute (3) HTN (hypertension) Status: Chronic Qualifiers: Qualified Codes: I10 - Essential (primary) hypertension (4) T2DM (type 2 diabetes mellitus) Status: Chronic Qualifiers: Qualified Codes: E11.9 - Type 2 diabetes mellitus without complications (5) Obesity (BMI 30-39.9) Status: Chronic Hospital Course Date of Admission: Mar 18, 2020 at 12:05 Admission Diagnosis : COVID-19 [facility] Date of Discharge: 03/19/20 Discharge Diagnosis: COVID-19 Hospital Course: [place] is a 54-year-old male with past medical history of hypertension, diabetes mellitus, morbid obesity, who was admitted with with acute hypoxic respiratory failure due to COVID-19. He was requiring 2 L of oxygen on admission. He began feeling better and his oxygen requirement went down. An oxygen evaluation was performed and he did not require any oxygen at rest, but he did require 2 L of oxygen with activity. He should follow-up with his primary care physician and a couple weeks. The health department will be in contact with him regarding further recommendations. He was instructed to quarantine when he goes home. Labs and Pending Lab Test: Laboratory Tests 03/18/20 16:12: Glucometer 304H 03/18/20 20:33: Glucometer 192H 03/19/20 06:33: White Blood Count 5.1, Red Blood Count 4.43, Hemoglobin 13.1L, Hematocrit 39L, Mean Corpuscular Volume 87, Mean Corpuscular Hemoglobin 30, Mean Corpuscular Hemoglobin Concent 34, Red Cell Distribution Width 12.4, Platelet Count 132, Mean Platelet Volume 9.7, Neutrophils (%) (Auto) 74, Lymphocytes (%) (Auto) 16, Monocytes (%) (Auto) 10, Eosinophils (%) (Auto) 0, Basophils (%) (Auto) 0, Neutrophils # (Auto) 3.8, Lymphocytes # (Auto) 0.8L, Monocytes # (Auto) 0.5, Eosinophils # (Auto) 0.0, Basophils # (Auto) 0.0, Sodium Level 137, Potassium Level 4.3, Chloride Level 103, Carbon Dioxide Level 23, Anion Gap 11, Blood Urea Nitrogen 16, Creatinine 0.84, Estimat Glomerular Filtration Rate > 60, BUN/Creatinine Ratio 19, Glucose Level 182H, Calcium Level 8.8, Corrected Ca lcium 9.3, Total Bilirubin 0.3, Aspartate Amino Transf (AST/SGOT) 23, Alanine Aminotransferase (ALT/SGPT) 31, Alkaline Phosphatase 60, Total Protein 6.3L, Albumin 3.4 03/19/20 06:34: Glucometer 182H 03/19/20 10:44: Glucometer 207H Home Meds Active Reported Pioglitazone HCl 15 Mg Tablet 15 Mg PO DAILY Diclofenac Sodium 100 Gm Gel..gram. 4 Gm TP BID PRN APPLY TO EACH KNEE Amlodipine Besylate 5 Mg Tablet 5 Mg PO DAILY Metoprolol Tartrate 100 Mg Tablet 100 Mg PO BID Lisinopril 40 Mg Tablet 40 Mg PO DAILY Metformin HCl 1,000 Mg Tablet 1,000 Mg PO BID LAST FILLED 02-05-2020 #60/30 DAY SUPPLY Hydrochlorothiazide 25 Mg Tablet 25 Mg PO DAILY Viagra (Sildenafil Citrate) 100 Mg Tablet 100 Mg PO DAILY PRN Oxycodone-Acetaminophen 10-325 (Oxycodone HCl/Acetaminophen) 1 Each Tablet 1 Tab PO TID PRN Assessment/Pt Instructions Take medications as prescribed. Begin using supplemental oxygen 2 L with activity. You will be required to quarantine once you are home. The health department will be in touch with you once you are home with further recommen dations. You should follow-up with your primary care physician in about 2 weeks. Discharge Planning: <30 minutes discharge planning Discharge Instructions Discharge Diet: ADA Diet Activity as Tolerated: Yes Pneumonia Vaccine Order Indica: Yes Discharge Physical Examination Vital Signs Vital Signs Date Time Temp Pulse Resp B/P (MAP) Pulse Ox O2 Delivery O2 Flow Rate FiO2 03/19/20 11:42 88 82 03/19/20 11:41 Room Air 03/19/20 10:39 37.3 24 149/60 (89) 03/19/20 08:52 2.00 03/18/20 13:36 28 General Appearance: No Apparent Distress, Obese Respiratory: Lungs Clear, Normal Breath Sounds, No Respiratory Distress Cardiovascular: Regular Rate, Rhythm, No Edema, No Murmur Gastrointestinal: Normal Bowel Sounds, Non Tender, Soft Extremity: Normal Inspection, Non Tender, No Pedal Edema Skin: Normal Color, Warm/Dry Neurologic/Psychiatric: Alert, Oriented x3, No Motor/Sensory Deficits, Normal Mood/Affect Allergies: Coded Allergies: No Known Drug Allergies (Unverified , 05/22/16) Copy Copies To 1: [facility] [place] Summary Date of Admission Mar 18, 2020 at 12:05 Date of Discharge Discharge Date: Mar 19, 2020 Discharge Time: 13:50 Admission Diagnosis COVID-19 Discharge Diagnosis (1) COVID-19 Status: Acute (2) Acute respiratory failure with hypoxia Status: Acute (3) HTN (hypertension) Status: Chronic Qualifiers: Qualified Codes: I10 - Essential (primary) hypertension (4) T2DM (type 2 diabetes mellitus) Status: Chronic Qualifiers: Qualified Codes: E11.9 - Type 2 diabetes mellitus without complications (5) Obesity (BMI 30-39.9) Status: Chronic Clinical Quality Measures DVT/VTE Risk/Contraindication: Risk Factor Score Per Nursin RFS Level Per Nursing on Admit: 2=Moderate JENNIFER ALLEN MD Mar 19, 2020 13:51
--- NOTE | 2020-03-19 14:05 | NUR ---
SPOKE WITH THE PT, WENT THRU THE EXT MED HISTORY AND GOT A MED LIST FROM [facility] TO COMPLETE THE MED REC THE FOLLOWING WERE FILLED AT [facility]: 12-24-2019 LISINOPRIL 40MG #90/90DS 12-24-2019 HCTZ 25MG #90/90DS 12-24-2019 AMLODIPINE 5MG #90/90DS 02-05-2020 DICLOFENAC GEL #1 TUBE 03-05-2020 VIAGRA 100MG #10 OTC MEDS: NONE
--- NOTE | 2020-03-19 14:23 | NUR ---
CM/SS: Visited with pt via phone as to plan for discharge Plan: Pt to return home with oxygen and spouse Lennie will be able to warp picker pt from the hospital Summary: Pt is known to this worker in the community based on having cared for pt's son previously. Pt reports that his has COVID and has been sick. He is asked who is able to pick him up. He does report that his Lennie can pick him up, he just needs to call her when he is ready. Pt reports he has his insurance cards and is ok to allow us to have a copy. RN is able to get the insurance cards when they enter the room - copies are made. Information faxed to DME for oxygen to be delivered to the hospital and for pt to have it at home.
--- NOTE | 2020-03-19 15:41 | NUR ---
CM/SS: Tabitha Mcdermott, Quality, Risk Management notified the [facility] that pt was being discharged to home today.
[2020-03-19 15:45] VITALS: BP 149/60
== END 2020-03-19 15:45 | disposition home or self-care (01) | DRG 177 ==
LOC: EDUNIT# 11:13 → ER 11:15 → 4TH 12:05
PROVIDERS: ADMIT Family Medicine; ATTEND Family Medicine
DX: U07.1 COVID-19 (principal); J96.01 Acute respiratory failure with hypoxia; I10 Essential (primary) hypertension; E11.9 Type 2 diabetes mellitus without complications; G47.33 Obstructive sleep apnea (adult) (pediatric); E66.01 Morbid (severe) obesity due to excess calories; Z68.38 Body mass index [BMI] 38.0-38.9, adult; E78.00 Pure hypercholesterolemia, unspecified; F32.9 Major depressive disorder, single episode, unspecified; M54.9 Dorsalgia, unspecified; M19.91 Primary osteoarthritis, unspecified site; Z79.84 Long term (current) use of oral hypoglycemic drugs; Z87.891 Personal history of nicotine dependence; Z90.49 Acquired absence of other specified parts of digestive tract
CPT/HCPCS: 36415; 71045; 80053; 82962; 83605; 83880; 84145; 85025; 85379; 86141; 87040; 87635; 93005; 94640; 94664; 94761

== ENCOUNTER → 2021-05-22 | Outpatient (CLI) | payer MEDICARE, MEDICAID ==
[~2021-05-22] MED LIST changes: +AMLO-250 PO; -AMLO5TAB9 PO; +DICL100G13 TP; -DICL100G31 TP; -LISI-552; -LISI10TA2 PO; +LISI10TA25 PO; +LISI20TA26; -LISI40TA PO; +LISI40TA9 PO; -OXYC-465 PO; -OXYC-471 PO; +OXYC-556 PO; +OXYC1TAB11 PO; +PIOG15TA67 PO; +SERT-413 PO; +SERT-414 PO; -SERT100T8 PO; -SERT50TA9 PO; -SULF1TAB35 PO; +SULF1TAB38 PO
== END ==
LOC: CARD 15:00
PROVIDERS: ATTEND Internal Medicine Cardiovascular Disease
DX: I51.7 Cardiomegaly (principal); I27.21 Secondary pulmonary arterial hypertension
CPT/HCPCS: 93306

== ENCOUNTER 2022-02-06 23:48 | Emergency (ER) | payer MEDICARE, MEDICAID ==
[~2022-02-06] VITALS: Ht 170 cm; Wt 108.0 kg
[~2022-02-06 23:48] MED LIST changes: +CYCL10TA25 PO; -CYCL10TA9 PO; -DOXY100C2 PO; +DOXY100C5 PO; +SCOP1PAT10 TD; -SCOP1PAT11 TD; -TERB250T16 PO; +TERB250T88 PO
[2022-02-07] MEDS ORDERED: ACETAMINOPHEN 500 MG TAB (TYLENOL) PO ONE
[2022-02-07] MEDS ORDERED: LORATADINE (CLARITIN) 10 MG TAB PO ONE
[2022-02-07] MEDS ORDERED: diphenhydrAMINE 50 MG/ML INJ (BENADRYL) IVP ONE
--- NOTE | 2022-02-07 | ED Integumentary General ---
General Chief Complaint: Allergic Reaction Stated Complaint: ALLERGIC REACTION - SOA Source: patient Exam Limitations: no limitations History of Present Illness Date Seen by Provider: February 06, 2022 Time Seen by Provider: 23:40 Initial Comments Patient to the ER by private conveyance chief complaint that he was out fishing and just prior to arrival he got bit by something on his left lateral upper eyebrow and is now having some increased swelling in his head and face as well as complaints that he is coughing and short of air but not having difficulty swallowing fluids. No history of anaphylaxis, or allergies to any insect stings or bites. No nausea. He is having some pain. He has diabetes and hypertension. He is on a water pill. Allergies and Home Medications Allergies Coded Allergies: No Known Drug Allergies (Unverified , 05/22/16) Patient Home Medication List Home Medication List Reviewed: Yes Amlodipine Besylate (Amlodipine Besylate) 5 Mg Tablet, 5 MG PO DAILY, (Reported) Entered as Reported by: NEREYDA HARMAN on 04/26/191558 Diclofenac Sodium (Diclofenac Sodium) 100 Gm Gel..gram., 4 GM TP BID PRN for PAIN-BREAKTHROUGH, (Reported) Entered as Reported by: MAGAN ROBERTS on 05/03/19 1336 Hydrochlorothiazide (Hydrochlorothiazide) 25 Mg Tablet, 25 MG PO DAILY, (Reported) Entered as Reported by: NEREYDA HARMAN on 04/26/191558 Lisinopril (Lisinopril) 40 Mg Tablet, 40 MG PO DAILY, (Reported) Entered as Reported by: NEREYDA HARMAN on 04/26/191558 Metformin HCl (Metformin HCl) 1,000 Mg Tablet, 1,000 MG PO BID, (Reported) Entered as Reported by: NEREYDA HARMAN on 04/26/191558 Metoprolol Tartrate (Metoprolol Tartrate) 100 Mg Tablet, 100 MG PO BID, (Reported) Entered as Reported by: NEREYDA HARMAN on 04/26/191558 Oxycodone HCl/Acetaminophen (Oxycodone-Acetaminophen 10-325) 1 Each Tablet, 1 TAB PO TID PRN for PAIN-MODERATE, (Reported) Entered as Reported by: JERRICA OCASIO on 07/16/17 0114 Pioglitazone HCl (Pioglitazone HCl) 15 Mg Tablet, 15 MG PO DAILY, (Reported) Entered as Reported by: MARY NELSON on 03/19/20 1214 Sildenafil Citrate (Viagra) 100 Mg Tablet, 100 MG PO DAILY PRN for ED, (Reported) Entered as Reported by: JERRICA OCASIO on 07/16/17 0114 Review of Systems Review of Systems Constitutional: No chills, No diaphoresis EENTM: see HPI; No ear discharge, No ear pain Respiratory: No cough, No dyspnea on exertion Cardiovascular: No chest pain, No palpitations Gastrointestinal: No abdominal pain, No nausea, No vomiting Skin: see HPI, pruritus; No rash All Other Systems Reviewed Negative Unless Noted: Yes Past Lejibcx-Woqmmh-Kcwviv Hx Patient Social History Tobacco Use?: No Use of E-Cig and/or Vaping dev: No Immunizations Up To Date Tetanus Booster (TDap): Unknown Seasonal Allergies Seasonal Allergies: No Past Medical History Surgeries: Yes Abdominal, Appendectomy, Joint Replacement, Orthopedic Respiratory: No Sleep Apnea Currently Using CPAP: Yes Cardiac: Yes High Cholesterol, Hypertension Neurological: No Reproductive Disorders: No Sexually Transmitted Disease: No HIV/AIDS: No Genitourinary: No Gastrointestinal: No Chronic Constipation, Hemorrhoids Musculoskeletal: No Arthritis, Chronic Back Pain Endocrine: Yes Diabetes, Non-Insulin dep HEENT: No Loss of Vision: Denies Hearing Impairment: Denies Cancer: No Psychosocial: No Depression Integumentary: No Blood Disorders: No Adverse Reaction/Blood Tranf: No (N/A) Family Medical History Completed stroke 19 MOTHER Hypertension 19 MOTHER Myocardial infarction G8 SISTER Heart Disease, Diabetes, Hypertension Physical Exam Vital Signs Vital Signs - First Documented 02/06/22 02/07/22 23:53 01:05 Temp 37.0 Pulse 95 Resp 18 B/P (MAP) 161/85 (110) Pulse Ox 100 O2 Delivery Room Air Capillary Refill : General Appearance: WD/WN, no apparent distress HEENT: PERRL/EOMI, normal ENT inspection, TMs normal, pharynx normal, other (Left periorbital tissues especially upper eyelid swelling and a punctate hi from a possible arthropod bite without erythema or warmth) Neck: full range of motion, supple, normal inspection Cardiovascular: normal peripheral pulses, regular rate, rhythm Respiratory: lungs clear, normal breath sounds, no respiratory distress, no accessory muscle use 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, no motor/sensory deficits, alert, normal mood/affect, oriented x 3 Skin: normal color, warm/dry Progress/Results/Core Measures Results/Orders Lab Results Laboratory Tests Test 02/06/22 23:58 Range/Units White Blood Count 10.3 4.3-11.0 10^3/uL Red Blood Count 4.62 4.30-5.52 10^6/uL Hemoglobin 14.4 13.3-17.7 g/dL Hematocrit 43 40-54 % Mean Corpuscular Volume 92 80-99 fL Mean Corpuscular Hemoglobin 31 25-34 pg Mean Corpuscular Hemoglobin Concent 34 32-36 g/dL Red Cell Distribution Width 12.8 10.0-14.5 % Platelet Count 207 130-400 10^3/uL Mean Platelet Volume 9.4 9.0-12.2 fL Immature Granulocyte % (Auto) 0 % Neutrophils (%) (Auto) 66 42-75 % Lymphocytes (%) (Auto) 22 12-44 % Monocytes (%) (Auto) 9 0-12 % Eosinophils (%) (Auto) 2 0-10 % Basophils (%) (Auto) 1 0-10 % Neutrophils # (Auto) 6.8 1.8-7.8 10^3/uL Lymphocytes # (Auto) 2.3 1.0-4.0 10^3/uL Monocytes # (Auto) 1.0 0.0-1.0 10^3/uL Eosinophils # (Auto) 0.2 0.0-0.3 10^3/uL Basophils # (Auto) 0.1 0.0-0.1 10^3/uL Immature Granulocyte # (Auto) 0.0 0.0-0.1 10^3/uL Sodium Level 138 135-145 MMOL/L Potassium Level 3.9 3.6-5.0 MMOL/L Chloride Level 101 98-107 MMOL/L Carbon Dioxide Level 22 21-32 MMOL/L Anion Gap 15 H 5-14 MMOL/L Blood Urea Nitrogen 21 H 7-18 MG/DL Creatinine 1.20 0.60-1.30 MG/DL Estimat Glomerular Filtration Rate 70 BUN/Creatinine Ratio 18 Glucose Level 261 H 70-105 MG/DL Calcium Level 9.4 8.5-10.1 MG/DL My Orders Orders - PATRICK MCGINNIS Ed Iv/Invasive Line Start (02/06/22 23:56) Diphenhydramine Injection (Benadryl Inje (02/07/22 00:00) Loratadine Tablet (Claritin Tablet) (02/07/22 00:00) Cbc With Automated Diff (02/06/22 23:56) Basic Metabolic Panel (02/06/22 23:56) Acetaminophen Tablet (Tylenol Tablet) (02/07/22 00:00) Loratadine Tablet (Claritin Tablet) (02/07/22 00:02) Medications Given in ED Current Medications Medications Dose Ordered Sig/Tio Route Start Time Stop Time Status Last Admin Dose Admin Acetaminophen 1,000 mg ONCE ONCE PO 02/07/22 00:00 02/07/22 00:01 DC 02/07/22 00:04 1,000 MG Diphenhydramine HCl 25 mg ONCE ONCE IVP 02/07/22 00:00 02/07/22 00:01 DC 02/07/22 00:01 25 MG Loratadine 10 mg ONCE ONCE PO 02/07/22 00:00 02/07/22 00:01 DC 02/07/22 00:01 10 MG Vital Signs/I&O 02/06/22 02/07/22 23:53 01:05 Temp 37.0 37.0 Pulse 95 83 Resp 18 18 B/P (MAP) 161/85 (110) 144/95 Pulse Ox 100 O2 Delivery Room Air Room Air Progress Progress Note #1: Time: 23:59 Progress Note Local swelling at the site of a of his left eyebrow. Plan to give him some Benadryl and loratadine, Tylenol for his headache. We will check some basic labs with an IV in and observe him for about an hour or so to make sure he is not having anaphylactic reaction. Progress Note #2: Time: 00:56 Progress Note Patient has been sleeping and his swelling in his soft tissue above his eye is significantly decreased. He is calling for a ride home. Departure Impression Primary Impression: Insect bite Qualified Codes: S00.262A - Insect bite (nonvenomous) of left eyelid and periocular area, initial encounter; W57.XXXA - Bitten or stung by nonvenomous insect and other nonvenomous arthropods, initial encounter Disposition: 01 HOME, SELF-CARE Condition: Stable Departure-Patient Inst. Decision time for Depature: 00:57 Referrals: TRISHA WELSH DO (PCP) Primary Care Physician [facility] (Family) Primary Care Physician Patient Instructions: Insect Allergy, Insect Bites and Stings (DC) Add. Discharge Instructions: Loratadine or cetirizine 10 mg once or twice a day to keep itching and swelling down. If you have breakthrough itching and swelling you can use Benadryl 1 to 2 tablets every 6 hours as needed. Benadryl will cause drowsiness. Promptly return to the nearest ER if you are having difficulty breathing or swallowing. All discharge instructions reviewed with patient and/or family. Voiced understanding. Work/School Note: Work Release Form Date Seen in the Emergency Department: February 07, 2022 Return to Work: February 08, 2022 Restrictions: No Restrictions PATRICK MCGINNIS February 07, 2022 00:00
[2022-02-07] MEDS ORDERED: LORATADINE (CLARITIN) 10 MG TAB ONE (00:02)
[2022-02-07 00:05] LABS: BASOPHILS # (AUTO) 0.1 10^3/uL (0.0-0.1); BASOPHILS % (AUTO) 1 % (0-10); EOSINOPHILS # (AUTO) 0.2 10^3/uL (0.0-0.3); EOSINOPHILS % (AUTO) 2 % (0-10); HEMATOCRIT 43 % (40-54); HEMOGLOBIN 14.4 g/dL (13.3-17.7); LYMPHOCYTES # (AUTO) 2.3 10^3/uL (1.0-4.0); LYMPHOCYTES % (AUTO) 22 % (12-44); MEAN CORPUSCULAR HEMOGLOBIN 31 pg (25-34); MEAN CORPUSCULAR HGB CONC 34 g/dL (32-36); MEAN CORPUSCULAR VOLUME 92 fL (80-99); MEAN PLATELET VOLUME 9.4 fL (9.0-12.2); MONOCYTES % (AUTO) 9 % (0-12); NEUTROPHILS # (AUTO) 6.8 10^3/uL (1.8-7.8); NEUTROPHILS % (AUTO) 66 % (42-75); PLATELET COUNT 207 10^3/uL (130-400); WHITE BLOOD COUNT 10.3 10^3/uL (4.3-11.0)
[2022-02-07 00:11] LABS: POTASSIUM 3.9 MMOL/L (3.6-5.0)
[2022-02-07 00:12] LABS: CALCIUM 9.4 MG/DL (8.5-10.1)
[2022-02-07 00:16] LABS: CREATININE SERUM 1.2 MG/DL (0.60-1.30)
[2022-02-07 01:05] VITALS: BP 144/95
== END 2022-02-07 01:05 | disposition home or self-care (01) ==
LOC: EDUNIT# 23:48 → ER 23:49
DX: S00.262A Insect bite (nonvenomous) of left eyelid and periocular area, initial encounter (principal); G47.30 Sleep apnea, unspecified; Z99.89 Dependence on other enabling machines and devices; W57.XXXA Bitten or stung by nonvenomous insect and other nonvenomous arthropods, initial encounter
CPT/HCPCS: 36415; 80048; 85025

== ENCOUNTER 2022-04-19 16:46 | Observation (INO) | payer MEDICARE, MEDICAID ==
[~2022-04-19] VITALS: Ht 167.7 cm; Wt 108.6 kg
[~2022-04-19 16:46] MED LIST changes: -TRIA1CAP4; +TRIA1CAP84
[2022-04-19 17:10] LABS: BASOPHILS % (AUTO) 0 % (0-10); EOSINOPHILS # (AUTO) 0.2 10^3/uL (0.0-0.3); EOSINOPHILS % (AUTO) 2 % (0-10); HEMATOCRIT 42 % (40-54); HEMOGLOBIN 13.9 g/dL (13.3-17.7); LYMPHOCYTES # (AUTO) 2.2 10^3/uL (1.0-4.0); LYMPHOCYTES % (AUTO) 25 % (12-44); MEAN CORPUSCULAR HEMOGLOBIN 30 pg (25-34); MEAN CORPUSCULAR HGB CONC 33 g/dL (32-36); MEAN CORPUSCULAR VOLUME 90 fL (80-99); MEAN PLATELET VOLUME 9.3 fL (9.0-12.2); MONOCYTES # (AUTO) 0.6 10^3/uL (0.0-1.0); MONOCYTES % (AUTO) 6 % (0-12); NEUTROPHILS # (AUTO) 5.8 10^3/uL (1.8-7.8); NEUTROPHILS % (AUTO) 66 % (42-75); PLATELET COUNT 239 10^3/uL (130-400); WHITE BLOOD COUNT 8.8 10^3/uL (4.3-11.0)
--- NOTE | 2022-04-19 17:11 | ED Chest Pain ---
General Chief Complaint: Chest Pain Stated Complaint: CP History of Present Illness Date Seen by Provider: Apr 19, 2022 Time Seen by Provider: 16:48 Initial Comments 56 year old male presents via EMS with chest pain that began at 1500 today. Rated pain 5/10, reports pain lasted 10 min and resolved. Had another episode of chest pain upon arrival to ED, just prior to coming in. Patient was given 324mg PO with EMS, no Nitro needed, as pain was not present. No pain, N/V/D, or SOA at this time. Known history of CAD with previous heart cath in 2019 and echo. Mother had CAD. Patient is diabetic. 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 NTG SL HOT ROLL LAMINATOR: No Associated Symptoms: denies symptoms Allergies and Home Medications Allergies Coded Allergies: No Known Drug Allergies (Unverified , 05/22/16) Patient Home Medication List Home Medication List Reviewed: Yes Amlodipine Besylate (Amlodipine Besylate) 5 Mg Tablet, 5 MG PO DAILY, (Reported) Entered as Reported by: NEREYDA HARMAN on 04/26/19 155 Diclofenac Sodium (Diclofenac Sodium) 100 Gm Gel..gram., 4 GM TP BID PRN for PAIN-BREAKTHROUGH, (Reported) Entered as Reported by: MAGAN ROBERTS on 05/03/19 1336 Hydrochlorothiazide (Hydrochlorothiazide) 25 Mg Tablet, 25 MG PO DAILY, (Reported) Entered as Reported by: NEREYDA HARMAN on 04/26/191558 Lisinopril (Lisinopril) 40 Mg Tablet, 40 MG PO DAILY, (Reported) Entered as Reported by: NEREYDA HARMAN on 04/26/191558 Metformin HCl (Metformin HCl) 1,000 Mg Tablet, 1,000 MG PO BID, (Reported) Entered as Reported by: NEREYDA HARMAN on 04/26/19 155 Metoprolol Tartrate (Metoprolol Tartrate) 100 Mg Tablet, 100 MG PO BID, (Reported) Entered as Reported by: NEREYDA HARMAN on 04/26/191558 Oxycodone HCl/Acetaminophen (Oxycodone-Acetaminophen 10-325) 1 Each Tablet, 1 TAB PO TID PRN for PAIN-MODERATE, (Reported) Entered as Reported by: JERRICA OCASIO on 07/16/17 0114 Pioglitazone HCl (Pioglitazone HCl) 15 Mg Tablet, 15 MG PO DAILY, (Reported) Entered as Reported by: MARY NELSON on 03/19/20 1214 Sildenafil Citrate (Viagra) 100 Mg Tablet, 100 MG PO DAILY PRN for ED, (Reported) Entered as Reported by: JERRICA OCASIO on 07/16/17 0114 Review of Systems Review of Systems Constitutional: no symptoms reported, see HPI EENTM: No Symptoms Reported, See HPI Respiratory: No Symptoms Reported, See HPI Cardiovascular: See HPI, Chest Pain; Denies Palpitations, Denies Syncope Gastrointestinal: No Symptoms Reported, See HPI; Denies Nausea, Denies Vomiting All Other Systems Reviewed Negative Unless Noted: Yes Past Mfzmhkw-Yqeldy-Fcpxfr Hx Immunizations Up To Date Tetanus Booster (TDap): Unknown Seasonal Allergies Seasonal Allergies: No Past Medical History Surgery/Hospitalization HX: HIGH BLOOD PRESSURE, HIGH CHOLESTEROL, DIABETES Surgeries: Yes Abdominal, Appendectomy, Joint Replacement, Orthopedic Respiratory: No Sleep Apnea Currently Using CPAP: Yes Cardiac: Yes High Cholesterol, Hypertension Neurological: No Reproductive Disorders: No Sexually Transmitted Disease: No HIV/AIDS: No Genitourinary: No Gastrointestinal: No Chronic Constipation, Hemorrhoids Musculoskeletal: No Arthritis, Chronic Back Pain Endocrine: Yes Diabetes, Non-Insulin dep HEENT: No Loss of Vision: Denies Hearing Impairment: Denies Cancer: No Psychosocial: No Depression Integumentary: No Blood Disorders: No Adverse Reaction/Blood Tranf: No (N/A) Family Medical History Reviewed Nursing Family Hx Completed stroke 19 MOTHER Hypertension 19 MOTHER Myocardial infarction G8 SISTER Heart Disease, Diabetes, Hypertension Physical Exam Vital Signs Vital Signs - First Documented 04/19/22 16:54 Temp 36.4 Pulse 76 Resp 20 B/P (MAP) 157/84 (108) Pulse Ox 98 Capillary Refill : Height, Weight, BMI Height: 5'6.00" Weight: 265lbs. 6.0oz. 120.191729ht; 37.00 BMI Method:Stated General Appearance: No Apparent Distress, WD/WN HEENT: PERRL/EOMI, TMs Normal, Normal ENT Inspection, Pharynx Normal Neck: Full Range of Motion, Normal Inspection, Non Tender, Supple Respiratory: Chest Non Tender, Lungs Clear, Normal Breath Sounds Cardiovascular: Regular Rate, Rhythm, No Edema, No Murmur, Normal Peripheral Pulses Gastrointestinal: Normal Bowel Sounds, Non Tender, Soft Extremity: Normal Capillary Refill, Normal Inspection, Normal Range of Motion, No Pedal Edema Neurologic/Psychiatric: Alert, Oriented x3, No Motor/Sensory Deficits, Normal Mood/Affect Progress/Results/Core Measures Results/Orders Lab Results Laboratory Tests Test 04/19/22 16:55 Range/Units White Blood Count 8.8 4.3-11.0 10^3/uL Red Blood Count 4.69 4.30-5.52 10^6/uL Hemoglobin 13.9 13.3-17.7 g/dL Hematocrit 42 40-54 % Mean Corpuscular Volume 90 80-99 fL Mean Corpuscular Hemoglobin 30 25-34 pg Mean Corpuscular Hemoglobin Concent 33 32-36 g/dL Red Cell Distribution Width 13.1 10.0-14.5 % Platelet Count 239 130-400 10^3/uL Mean Platelet Volume 9.3 9.0-12.2 fL Immature Granulocyte % (Auto) 1 % Neutrophils (%) (Auto) 66 42-75 % Lymphocytes (%) (Auto) 25 12-44 % Monocytes (%) (Auto) 6 0-12 % Eosinophils (%) (Auto) 2 0-10 % Basophils (%) (Auto) 0 0-10 % Neutrophils # (Auto) 5.8 1.8-7.8 10^3/uL Lymphocytes # (Auto) 2.2 1.0-4.0 10^3/uL Monocytes # (Auto) 0.6 0.0-1.0 10^3/uL Eosinophils # (Auto) 0.2 0.0-0.3 10^3/uL Basophils # (Auto) 0.0 0.0-0.1 10^3/uL Immature Granulocyte # (Auto) 0.0 0.0-0.1 10^3/uL Prothrombin Time 13.1 12.2-14.7 SEC INR Comment 1.0 0.8-1.4 Activated Partial Thromboplast Time 31 24-35 SEC Sodium Level 140 135-145 MMOL/L Potassium Level 3.8 3.6-5.0 MMOL/L Chloride Level 104 98-107 MMOL/L Carbon Dioxide Level 24 21-32 MMOL/L Anion Gap 12 5-14 MMOL/L Blood Urea Nitrogen 19 H 7-18 MG/DL Creatinine 1.03 0.60-1.30 MG/DL Estimat Glomerular Filtration Rate 84 BUN/Creatinine Ratio 18 Glucose Level 178 H 70-105 MG/DL Calcium Level 9.5 8.5-10.1 MG/DL Corrected Calcium 9.3 8.5-10.1 MG/DL Magnesium Level 2.3 1.6-2.4 MG/DL Total Bilirubin 0.4 0.1-1.0 MG/DL Aspartate Amino Transf (AST/SGOT) 12 5-34 U/L Alanine Aminotransferase (ALT/SGPT) 22 0-55 U/L Alkaline Phosphatase 48 40-136 U/L Myoglobin 36.2 10.0-92.0 NG/ML Troponin I < 0.028 <0.028 NG/ML Total Protein 6.9 6.4-8.2 GM/DL Albumin 4.2 3.2-4.5 GM/DL My Orders Orders - PIA PEREZ Cbc With Automated Diff (04/19/22 16:56) Magnesium (04/19/22 16:56) Chest 1 View, Ap/Pa Only (04/19/22 16:56) Ekg Tracing (04/19/22 16:56) Comprehensive Metabolic Panel (04/19/22 16:56) Myoglobin Serum (04/19/22 16:56) Protime With Inr (04/19/22 16:56) Partial Thromboplastin Time (04/19/22 16:56) O2 (04/19/22 16:56) Monitor-Rhythm Ecg Trace Only (04/19/22 16:56) Ed Iv/Invasive Line Start (04/19/22 16:56) Troponin I [place] (04/19/22 16:56) Vital Signs/I&O 04/19/22 16:54 Temp 36.4 Pulse 76 Resp 20 B/P (MAP) 157/84 (108) Pulse Ox 98 Progress Progress Note : Time: 16:48 Progress Note Patient seen and evaluated, will obtain labs, EKG and chest x-ray. No pain at present time will not give nitro. He has already been given aspirin. 1744 patient reports another episode of left-sided chest pain that lasted for approximately 2 minutes. Gone at this time. B/P 120s/80s. [address] Arita and Razia. Agreeable with plan to admit and observe, with repeat Troponin. Patient agrees with admission plan. Taking water, no complaints. Initial ECG Impression Date: Apr 19, 2022 Initial ECG Impression Time: 16:56 Initial ECG Rate: 72 Initial ECG Rhythm: Normal Sinus Initial ECG Intervals: Normal Initial ECG Intervals HI 146, QRS D 97, QT 369, QTc 394. [place] P 10, R 51, T 44. Initial ECG Comparisson: Unchanged Comment No ST Elevation, reviewed with Dr. Alvares Departure Impression Primary Impression: Chest pain Qualified Codes: R07.9 - Chest pain, unspecified Additional Impressions: T2DM (type 2 diabetes mellitus) Qualified Codes: E11.9 - Type 2 diabetes mellitus without complications Obesity (BMI 30-39.9) Disposition: ADMITTED INPATIENT Condition: Stable Admissions Decision to Admit/Date: Apr 19, 2022 Time/Decision to Admit Time: 18:00 Departure-Patient Inst. Referrals: TRISHA WELSH DO (PCP) Primary Care Physician [facility] (Family) Primary Care Physician PIA PEREZ Apr 19, 2022 17:11
--- NOTE | 2022-04-19 17:12 | Diagnostic Imaging Report ---
INDICATION: Chest pain. COMPARISON: 03/18/2020. FINDINGS: Single frontal view of the chest demonstrates normal heart size and pulmonary vascularity. The lungs are well aerated and clear. No large pleural effusion or pneumothorax is seen. The visualized osseous structures show no acute abnormalities. IMPRESSION: 1. No acute cardiopulmonary process. Dictated by: Dictated on workstation # [id number]
[2022-04-19 17:16] LABS: ALBUMIN 4.2 GM/DL (3.2-4.5); POTASSIUM 3.8 MMOL/L (3.6-5.0)
[2022-04-19 17:17] LABS: CALCIUM 9.5 MG/DL (8.5-10.1); PROTHROMBIN TIME PATIENT 13.1 SEC (12.2-14.7)
[2022-04-19 17:18] LABS: TOTAL PROTEIN 6.9 GM/DL (6.4-8.2)
[2022-04-19 17:20] LABS: BILIRUBIN,TOTAL 0.4 MG/DL (0.1-1.0)
[2022-04-19 17:22] LABS: CREATININE SERUM 1.03 MG/DL (0.60-1.30)
[2022-04-19 17:25] LABS: MAGNESIUM 2.3 MG/DL (1.6-2.4)
[2022-04-19] MEDS ORDERED: NITROGLYCERIN 0.4 MG SL TABS BTL 25'S SL PRN (19:00)
[2022-04-19] MEDS ORDERED: diphenhydrAMINE 25 MG TAB (BENADRYL) PO PRN (19:00)
[2022-04-19] MEDS ORDERED: LACTULOSE SYRUP 10GM/15ML (ENULOSE) 30ML UDC PO PRN (19:00)
[2022-04-19] MEDS ORDERED: ONDANSETRON 4 MG (ZOFRAN) ORAL DISSOLVE TAB PO PRN (19:00)
[2022-04-19] MEDS ORDERED: MILK OF MAGNESIA 400 MG/5 ML 30 ML UDC PO PRN (19:00)
[2022-04-19] MEDS ORDERED: morphine INJ 4 MG/ML 1 ML (VIAL/SYRINGE) IV PRN (19:00)
[2022-04-19] MEDS ORDERED: ACETAMINOPHEN 325 MG TABLET PO PRN (19:00)
[2022-04-19] MEDS ORDERED: BISACODYL 10 MG SUPP (DULCOLAX) PR PRN (19:00)
[2022-04-19] MEDS ORDERED: MELATONIN 3 MG TABLET PO PRN (19:00)
[2022-04-19] MEDS ORDERED: diphenhydrAMINE 50 MG/ML INJ (BENADRYL) IVP PRN (19:00)
[2022-04-19] MEDS ORDERED: ONDANSETRON 4 MG/2 ML (SDV) Z0FRAN IV PRN (19:00)
[2022-04-19] MEDS ORDERED: polyethylene glycoL POWDER 17 GM (MIRALAX) PACK PO PRN (19:00)
[2022-04-19] MEDS ORDERED: CALCIUM CARBONATE 500 MG (TUMS) TAB.CHEW PO PRN (19:00)
[2022-04-19] MEDS ORDERED: PATIENT MAY USE OWN MEDS, ALL PO SCH (19:00)
[2022-04-19] MEDS ORDERED: ANTACID SUSP 30 ML UDC (MYLANTA) PO PRN (19:00)
[2022-04-19 19:33] VITALS: BP 157/84
[2022-04-19 19:34] VITALS: BP 134/83
[2022-04-19] MEDS ORDERED: RT-ALBUTEROL SULF 2.5 MG/3 ML PRE-MIX VIAL INH PRN (19:45)
[2022-04-19 20:00] VITALS: BP 140/95
[2022-04-19 21:00] VITALS: BP 132/87
[2022-04-19] MEDS: inSUlin ASPART (NovoLOG) 1 UNIT/0.01 ML (CHARGE PER UNIT) SC SCH (21:39)
[2022-04-19] MEDS: SENNOSIDES 8.6 MG (SENOKOT) TAB PO SCH (21:44)
[2022-04-19] MEDS: DOCUSATE SODIUM 100 MG (COLACE) CAP PO SCH (21:45)
[2022-04-19] MEDS ORDERED: ENOXAPARIN 40 MG/0.4 ML (LOVENOX) SYR SC SCH (22:00)
[2022-04-20] VITALS: BP 129/84
[2022-04-20 04:00] VITALS: BP 133/90
[2022-04-20 05:44] LABS: BASOPHILS % (AUTO) 1 % (0-10); EOSINOPHILS # (AUTO) 0.2 10^3/uL (0.0-0.3); EOSINOPHILS % (AUTO) 3 % (0-10); HEMATOCRIT 40 % (40-54); HEMOGLOBIN 13.7 g/dL (13.3-17.7); LYMPHOCYTES # (AUTO) 1.8 10^3/uL (1.0-4.0); LYMPHOCYTES % (AUTO) 25 % (12-44); MEAN CORPUSCULAR HEMOGLOBIN 31 pg (25-34); MEAN CORPUSCULAR HGB CONC 34 g/dL (32-36); MEAN CORPUSCULAR VOLUME 90 fL (80-99); MEAN PLATELET VOLUME 9.4 fL (9.0-12.2); MONOCYTES # (AUTO) 0.5 10^3/uL (0.0-1.0); MONOCYTES % (AUTO) 7 % (0-12); NEUTROPHILS # (AUTO) 4.8 10^3/uL (1.8-7.8); NEUTROPHILS % (AUTO) 65 % (42-75); PLATELET COUNT 196 10^3/uL (130-400); WHITE BLOOD COUNT 7.4 10^3/uL (4.3-11.0)
[2022-04-20 06:05] LABS: ALBUMIN 3.8 GM/DL (3.2-4.5); CHLORIDE 107 MMOL/L (98-107); POTASSIUM 3.8 MMOL/L (3.6-5.0); SODIUM 137 MMOL/L (135-145)
[2022-04-20 06:06] LABS: CALCIUM 9.1 MG/DL (8.5-10.1)
[2022-04-20 06:07] LABS: GLUCOSE 119 MG/DL (70-105); TOTAL PROTEIN 6.3 GM/DL (6.4-8.2); TRIGLYCERIDES 216 MG/DL (<150); VLDL CHOLESTEROL 43 MG/DL (5-40)
[2022-04-20 06:08] LABS: CARBON DIOXIDE 23 MMOL/L (21-32)
[2022-04-20 06:09] LABS: BILIRUBIN,TOTAL 0.4 MG/DL (0.1-1.0)
[2022-04-20 06:11] LABS: ALKALINE PHOSPHATASE 44 U/L (40-136); CREATININE SERUM 0.89 MG/DL (0.60-1.30); GFR ESTIMATED 99
[2022-04-20 06:12] LABS: BUN/CREATININE RATIO 20; CHOLESTEROL 117 MG/DL (< 200)
[2022-04-20] MEDS: inSUlin ASPART (NovoLOG) 1 UNIT/0.01 ML (CHARGE PER UNIT) SC SCH ×2 (06:12→11:32)
[2022-04-20 06:13] LABS: HDL CHOLESTEROL 35 MG/DL (40-60)
[2022-04-20 06:14] LABS: ALANINE AMINOTRANSFERASE 21 U/L (0-55)
[2022-04-20 08:00] VITALS: BP 144/94
[2022-04-20] MEDS ORDERED: ASPIRIN E.C. 81 MG (ECOTRIN) TAB PO SCH (09:00)
[2022-04-20] MEDS: SENNOSIDES 8.6 MG (SENOKOT) TAB PO SCH (09:42)
[2022-04-20] MEDS: DOCUSATE SODIUM 100 MG (COLACE) CAP PO SCH (09:42)
--- NOTE | 2022-04-20 09:52 | Physical Therapy Progress Note ---
Therapy Progress Note Patient declined PT intervention stating he is independent and up in his room. RN confirms. No skilled PT indicated. 1 ref/DC KIERAN GRACE PT Apr 20, 2022 09:52
--- NOTE | 2022-04-20 11:42 | Occ Therapy Progress Note ---
Therapy Progress Note OT orders received and chart reviewed prior to seeing pt. He politely declined skilled OT services at this time as he reports being at his PLOF and has no concerns about ADLs upon d/c. Pt is up independently and able to toilet and complete ADLS independently. Pt told to have nursing notify OT if any concerns do arise, pt verbalized understanding. D/c from OT at this time. 1, visit @1014 OLESYA GORDON OT Apr 20, 2022 11:42
--- NOTE | 2022-04-20 11:58 | Short Stay Summary-Hospitalist ---
History of Present Illness HPI/Chief Complaint Chief complaint: Chest pain History of present illness: This is a 56-year-old male clinic patient of [facility] who has a history of hypertension and mild CAD on cardiac catheterization who presented to the hospital with chest pain. All troponins have been negative and EKG has been stable. At this current time patient is denying any chest pain and wants to go home. Source: patient Exam Limitations: no limitations Date Seen 04/20/22 Time Seen by a Provider: 11:00 Attending Physician Arlene Fabian DO PCP Admitting Physician: Skylar Arita DO Attending Physician: Skylar Arita DO Referring Physician Date of Admission Apr 19, 2022 at 18:00 Home Medications & Allergies Home Medications Reviewed patient Home Medication Reconciliation performed by pharmacy medication reconciliations career resource technician and/or nursing. Patients Allergies have been reviewed. Allergies Allergies Coded Allergies No Known Drug Allergies (Unverified05/22/16) Past Rpsuybr-Tsuwus-Eocypn Hx Patient Social History Marrital Status: single Employed/Student: employed Tobacco Use?: No Smoking Status: Never a Smoker Smokeless Tobacco Frequency: Never a User Use of E-Cig and/or Vaping dev: No Substance use?: No Substance type: Opiates/Opioids Alcohol Use?: Yes Alcohol Frequency: Rarely Pt feels they are or have been: No Immunizations Up To Date Date of Influenza Vaccine: Jun 19, 2018 Tetanus Booster (TDap): Unknown Hepatitis A: No Hepatitis B: No Seasonal Allergies Seasonal Allergies: No Current Status Advance Directives: No Communicates: Verbally Primary Language: Mozambican Preferred Spoken Language: Mozambican Is interpretation needed?: No Implanted or Applied Medical D: CPAP Past Medical History Surgeries: Abdominal, Appendectomy, Joint Replacement, Orthopedic Sleep Apnea Currently Using CPAP: Yes High Cholesterol, Hypertension Sexually Transmitted Disease: No HIV/AIDS: No Chronic Constipation, Hemorrhoids Arthritis, Chronic Back Pain Diabetes, Non-Insulin dep Loss of Vision: Denies Hearing Impairment: Denies Depression Blood Disorders: No Adverse Reaction/Blood Tranf: No (N/A) HTN NIDDM Family Medical History Reviewed Nursing Family Hx Completed stroke 19 MOTHER Hypertension 19 MOTHER Myocardial infarction G8 SISTER Heart Disease, Diabetes, Hypertension Review of Systems Constitutional: see HPI, malaise, weakness EENTM: no symptoms reported Respiratory: no symptoms reported Cardiovascular: chest pain Gastrointestinal: no symptoms reported Genitourinary: no symptoms reported Musculoskeletal: no symptoms reported Skin: no symptoms reported Psychiatric/Neurological: No Symptoms Reported All Other Systems Reviewed Negative Unless Noted: Yes Physical Exam Physical Exam Vital Signs Vital Signs - First Documented 04/19/22 04/19/22 04/19/22 16:54 19:33 23:45 Temp 36.4 Pulse 76 Resp 20 B/P (MAP) 157/84 (108) Pulse Ox 98 O2 Flow Rate 2.00 FiO2 21 Capillary Refill : Height, Weight, BMI Height: 5'6.00" Weight: 265lbs. 6.0oz. 120.462560ti; 38.61 BMI Method:Stated General Appearance: No Apparent Distress, WD/WN HEENT: PERRL/EOMI, TMs Normal, Normal ENT Inspection, Pharynx Normal Neck: Full Range of Motion, Normal Inspection, Non Tender, Supple Respiratory: Chest Non Tender, Lungs Clear, Normal Breath Sounds Cardiovascular: Regular Rate, Rhythm, No Edema, No Murmur, Normal Peripheral Pulses Gastrointestinal: Normal Bowel Sounds, Non Tender, Soft Extremity: Normal Capillary Refill, Normal Inspection, Normal Range of Motion, No Pedal Edema Neurologic/Psychiatric: Alert, Oriented x3, No Motor/Sensory Deficits, Normal Mood/Affect Results Results/Procedures Labs Laboratory Tests 04/19/22 16:55 04/20/22 05:07 Patient resulted labs reviewed. Short Stay Diagnosis Discharge Diagnosis-Short Stay Admission Diagnosis Chest pain Final Discharge Diagnosis Chest pain without evidence of ACS Conclusion Plan Discharge home Diagnosis/Problems Diagnosis/Problems (1) Chest pain Status: Acute Qualifiers: Qualified Codes: R07.9 - Chest pain, unspecified Clinical Quality Measures AMI/AHF: ASA po Prior to arrival: Yes SKYLAR ARITA DO Apr 20, 2022 11:58
[2022-04-20 12:00] VITALS: BP 148/99
[2022-04-20 12:40] VITALS: BP 144/94
[2022-04-20] MEDS ORDERED: amLODIPine 5 MG (NORVASC) TAB PO NR (12:45)
[2022-04-20 15:39] VITALS: BP 120/69
--- NOTE | 2022-04-20 15:39 | Consultation-Cardiology ---
HPI-Cardiology Cardiology Consultation: Date of Consultation 04/20/22 Date of Admission 04/19/22 Attending Physician Arlene Fabian DO Admitting Physician Admitting Physician: Skylar Arita DO Attending Physician: Skylar Arita DO Consulting Physician NI HUDSON JR, MD HPI: Time Seen by a Provider: 15:33 Chief Complaint: REASON FOR CONSULTATION: Chest pain. I had the pleasure of seeing George in the cardiac stepdown unit at [facility] in [place], [place] today. He normally follows with one of my partners, Dr. Reynoso. He had undergone a cardiac catheterization in 2019 and was found to have angiographically normal coronary arteries at that time. He does have cardiac risk factors of hypertension, hyperlipidemia and type 2 diabetes mellitus. He was in his usual state of reasonably good health until yesterday when he started developing right-sided chest pain. He felt like there was a sharp pain just to the right side of his sternum that radiated to his right shoulder. This made him lightheaded and short of breath. 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 This would just last for a few minutes then resolved. Later when he went home and was just watching [employer], he developed recurrent sharp right-sided chest pain again associated with shortness of breath and lightheaded. He became concerned and called 911. He was brought to the hospital for further evaluation. Overnight, the chest discomfort has subsided with no specific treatment. He denies paroxysmal nocturnal dyspnea, orthopnea, palpitations, syncope, or ankle edema. Because of the chest discomfort, a cardiology consultation was requested. Certain portions of this document may have been dictated utilizing voice recognition technology. Inherent to this technology, typographical and grammatical errors may exist. As much as I am diligent to identify and correct these mistakes, some errors may remain in the document. Review of Systems-Cardiology Review of Systems Other comments Review of 10 organ systems is as per the history of present illness, otherwise negative. All Other Systems Reviewed Negative Unless Noted: Yes ABS-Gxmtys-Oqaajn Hx Patient Social History Smoking Status: Never a Smoker 2nd Hand Smoke Exposure: No Have you traveled recently?: Yes Where was recent travel?: [place] Alcohol Use?: Yes Substance type: Opiates/Opioids Pt feels they are or have been: No Immunizations Up To Date Tetanus Booster (TDap): Unknown Date of Influenza Vaccine: Jun 19, 2018 Past Medical History PMH As described under Assessment. Family Medical History Family History: Completed stroke 19 MOTHER Hypertension 19 MOTHER Myocardial infarction G8 SISTER Allergies and Home Medications Allergies Coded Allergies: No Known Drug Allergies (Unverified , 05/22/16) Patient Home Medication List Home Medication List Reviewed: Yes Amlodipine Besylate (Amlodipine Besylate) 5 Mg Tablet, 5 MG PO DAILY, (Reported) Entered as Reported by: NEREYDA HARMAN on 04/26/19 155 Diclofenac Sodium (Diclofenac Sodium) 100 Gm Gel..gram., 4 GM TP BID PRN for PAIN-BREAKTHROUGH, (Reported) Entered as Reported by: MAGAN ROBERTS on 05/03/19 1336 Hydrochlorothiazide (Hydrochlorothiazide) 25 Mg Tablet, 25 MG PO DAILY, (Reported) Entered as Reported by: NEREYDA HARMAN on 04/26/19 155 Lisinopril (Lisinopril) 40 Mg Tablet, 40 MG PO DAILY, (Reported) Entered as Reported by: NEREYDA HARMAN on 04/26/19 155 Metformin HCl (Metformin HCl) 1,000 Mg Tablet, 1,000 MG PO BID, (Reported) Entered as Reported by: NEREYDA HARMAN on 04/26/19 155 Metoprolol Tartrate (Metoprolol Tartrate) 100 Mg Tablet, 100 MG PO BID, (Reported) Entered as Reported by: NEREYDA HARMAN on 04/26/19 155 Oxycodone HCl/Acetaminophen (Oxycodone-Acetaminophen 10-325) 1 Each Tablet, 1 TAB PO TID PRN for PAIN-MODERATE, (Reported) Entered as Reported by: JERRICA OCASIO on 07/16/17113 Pioglitazone HCl (Pioglitazone HCl) 15 Mg Tablet, 15 MG PO DAILY, (Reported) Entered as Reported by: MARY NELSON on 03/19/20 1214 Sildenafil Citrate (Viagra) 100 Mg Tablet, 100 MG PO DAILY PRN for ED, (Reported) Entered as Reported by: JERRICA OCASIO on 07/16/17113 Exam Vital Signs Vital Signs Date Time Temp Pulse Resp B/P (MAP) Pulse Ox O2 Delivery O2 Flow Rate FiO2 04/20/22 12:40 36.2 65 10 144/94 (111) 96 04/20/22 12:00 Nasal Cannula 2.00 04/19/22 19:33 21 Physical Exam General: Alert. No acute distress. Well nourished and appears stated age. He is obese. Eye: Extraocular movements are intact. Conjunctivae are clear. There are no xanthelasma. HENT: Normocephalic. Atraumatic. Carotid pulsations 2/2 without bruits. Neck: Jugular venous pressure does not appear elevated. No thyromegaly appreciated. Respiratory: Lungs are clear to auscultation. Respirations are non-labored. Breath sounds are equal. Symmetrical chest wall expansion. Cardiovascular: Normal rate. Regular rhythm. No murmur. No gallop. Point of maximal impulse is not appear displaced. Good pulses equal in all extremities. No edema. Gastrointestinal: Soft. Normal bowel sounds. Skin: Skin turgor is normal. There is no pallor. Musculoskeletal: No kyphosis or scoliosis appreciated. Neurologic: Alert and oriented to person, place, time. Cranial nerves 3-12 appear grossly intact. The patient has good motor tone strength in the upper and lower extremities bilaterally. Psychiatric: Cooperative. Appropriate mood & affect. Labs Laboratory Tests Test 04/19/22 16:55 04/19/22 19:25 04/20/22 05:07 Range/Units White Blood Count 8.8 7.4 4.3-11.0 10^3/uL Red Blood Count 4.69 4.49 4.30-5.52 10^6/uL Hemoglobin 13.9 13.7 13.3-17.7 g/dL Hematocrit 42 40 40-54 % Mean Corpuscular Volume 90 90 80-99 fL Mean Corpuscular Hemoglobin 30 31 25-34 pg Mean Corpuscular Hemoglobin Concent 33 34 32-36 g/dL Red Cell Distribution Width 13.1 13.2 10.0-14.5 % Platelet Count 239 196 130-400 10^3/uL Mean Platelet Volume 9.3 9.4 9.0-12.2 fL Immature Granulocyte % (Auto) 1 0 % Neutrophils (%) (Auto) 66 65 42-75 % Lymphocytes (%) (Auto) 25 25 12-44 % Monocytes (%) (Auto) 6 7 0-12 % Eosinophils (%) (Auto) 2 3 0-10 % Basophils (%) (Auto) 0 1 0-10 % Neutrophils # (Auto) 5.8 4.8 1.8-7.8 10^3/uL Lymphocytes # (Auto) 2.2 1.8 1.0-4.0 10^3/uL Monocytes # (Auto) 0.6 0.5 0.0-1.0 10^3/uL Eosinophils # (Auto) 0.2 0.2 0.0-0.3 10^3/uL Basophils # (Auto) 0.0 0.0 0.0-0.1 10^3/uL Immature Granulocyte # (Auto) 0.0 0.0 0.0-0.1 10^3/uL Prothrombin Time 13.1 12.2-14.7 SEC INR Comment 1.0 0.8-1.4 Activated Partial Thromboplast Time 31 24-35 SEC Sodium Level 140 137 135-145 MMOL/L Potassium Level 3.8 3.8 3.6-5.0 MMOL/L Chloride Level 104 107 98-107 MMOL/L Carbon Dioxide Level 24 23 21-32 MMOL/L Anion Gap 12 7 5-14 MMOL/L Blood Urea Nitrogen 19 H 18 7-18 MG/DL Creatinine 1.03 0.89 0.60-1.30 MG/DL Estimat Glomerular Filtration Rate 84 99 BUN/Creatinine Ratio 18 20 Glucose Level 178 H 119 H 70-105 MG/DL Calcium Level 9.5 9.1 8.5-10.1 MG/DL Corrected Calcium 9.3 9.3 8.5-10.1 MG/DL Magnesium Level 2.3 1.6-2.4 MG/DL Total Bilirubin 0.4 0.4 0.1-1.0 MG/DL Aspartate Amino Transf (AST/SGOT) 12 11 5-34 U/L Alanine Aminotransferase (ALT/SGPT) 22 21 0-55 U/L Alkaline Phosphatase 48 44 40-136 U/L Myoglobin 36.2 10.0-92.0 NG/ML Troponin I < 0.028 < 0.028 < 0.028 <0.028 NG/ML Total Protein 6.9 6.3 L 6.4-8.2 GM/DL Albumin 4.2 3.8 3.2-4.5 GM/DL Triglycerides Level 216 H <150 MG/DL Cholesterol Level 117 < 200 MG/DL LDL Cholesterol Direct 53 1-129 MG/DL VLDL Cholesterol 43 H 5-40 MG/DL HDL Cholesterol 35 L 40-60 MG/DL ECG Impression ECG Comment Electrocardiogram from this morning shows sinus rhythm with possible early repolarization. Diagnosis/Problems Diagnosis/Problems (1) Chest pain Status: Acute Assessment & Plan: Radha unclear. There is no evidence of a myocardial infarction or ischemia at rest on his electrocardiogram. He had 3 undetectable troponin levels. This sounds more consistent with noncardiac chest pain, possibly due to musculoskeletal strain or gastroesophageal reflux disease. He had a cardiac catheterization in 2019 that showed angiographically normal- appearing coronary arteries. I recommend increasing his dose of proton pump inhibitor. He can be discharged home and I have put an order to get him a follow-up visit with Dr. Reynoso in 1 month. (2) Primary hypertension Assessment & Plan: Continue outpatient antihypertensive medication. (3) Mixed hyperlipidemia Assessment & Plan: Continue present diet and treatment if he is taking statin medication. His cholesterol level is actually quite good. (4) Gastroesophageal reflux disease without esophagitis Assessment & Plan: This could be causing or at least contributing to his chest pain. I recommend doubling his dose of proton pump inhibitor which he takes at home. (5) Type 2 diabetes mellitus with complication Assessment & Plan: This is being managed by the hospitalist. (6) Obesity Assessment & Plan: He needs to work on weight loss. Problem Qualifiers (1) Chest pain: Chest pain type: unspecified Qualified Codes: R07.9 - Chest pain, unspecified NI HUDSON JR, MD Apr 20, 2022 15:39
[2022-04-20] MEDS ORDERED: DULA0.75 IJ (15:43)
[2022-04-20] MEDS ORDERED: OMEP40CA6 PO ×2 (15:43→15:54)
[2022-04-20] MEDS ORDERED: ATOR10TA66 PO (15:43)
[2022-04-20] MEDS ORDERED: CYCL10TA25 PO (15:43)
[2022-04-20] MEDS ORDERED: CANA300T PO (15:44)
[2022-04-20] MEDS ORDERED: PATIENT MAY USE OWN MEDS, ALL PO SCH (16:45)
== END 2022-04-20 16:30 | disposition home or self-care (01) ==
LOC: EDUNIT# 16:46 → ER 16:49 → CSD 18:00 → UNDOADMOB 18:00 → CSD 22:00 → UNDODISOB 04-20 16:30
PROVIDERS: ADMIT Internal Medicine; ATTEND Internal Medicine
DX: R07.9 Chest pain, unspecified (principal); E11.9 Type 2 diabetes mellitus without complications
CPT/HCPCS: 36415; 71045; 80053; 80061; 83735; 83874; 84484; 85025; 85610; 85730; 93005; 93041; 96372

== ENCOUNTER → 2022-06-01 | Outpatient (CLI) | payer MEDICARE, MEDICAID ==
[~2022-06-01] MED LIST changes: +ATOR10TA66 PO; +CANA300T PO; +DULA0.75 IJ; +OMEP40CA6 PO; +REGADENOSON 0.4 MG/5 ML SYR (LEXISCAN) IV ONE
[2022-06-01] MEDS: CATHETER FLUSH 10 ML SYR IVP PRN ×2 (08:59→09:53)
[2022-06-01 09:48] VITALS: BP 170/100
--- NOTE | 2022-06-02 15:19 | STRESS TEST ---
DATE OF SERVICE: 06/01/2022 RESTING AND POST REGADENOSON TECHNETIUM-99M TETROFOSMIN SPECT CT IMAGING ORDERING PHYSICIAN: Dr. Reynoso. PRIMARY PHYSICIAN: [facility]. CLINICAL DIAGNOSIS: Chest discomfort. Baseline images were carried out after injection of 9.52 mCi of technetium-99m Tetrofosmin. This was followed by 0.4 mg regadenoson and 28.4 mCi of technetium-99m Tetrofosmin for stress imaging. The electrocardiogram showed sinus rhythm at baseline. It did not change significantly with the regadenoson infusion. The patient tolerated the procedure well. Review of images at rest and following stress does not indicate any distinct perfusion defects consistent with significant myocardial ischemia or infarction. Gated images show normal global left ventricular systolic function with normal regional wall motion. Left ventricular ejection fraction is calculated to be 63%. CONCLUSIONS: 1. No evidence of any significant myocardial ischemia or infarction on this study. 2. Normal regional wall motion. 3. Normal global left ventricular systolic function with a calculated ejection fraction of 63%. Job ID: [id number] DocumentID: [id number] Dictated Date: 06/02/2022 12:40:23 Director Part Date: 06/02/2022 15:17:53 Dictated By: JONATHAN REYNOSO MD, MA, FACP, FACC,
== END ==
LOC: CARD 08:15
PROVIDERS: ATTEND Internal Medicine Cardiovascular Disease
DX: R07.89 Other chest pain (principal)
CPT/HCPCS: 78452; 93017; A9502

== ENCOUNTER 2023-03-22 22:33 | Emergency (ER) | payer MEDICARE, MEDICAID ==
[~2023-03-22 22:33] MED LIST changes: -REGADENOSON 0.4 MG/5 ML SYR (LEXISCAN) IV ONE
[2023-03-22] MEDS ORDERED: CYCLOBENZAPRINE 10 MG (FLEXERIL) TAB PO STA (22:48)
[2023-03-22] MEDS ORDERED: ORPHENADRINE 60 MG/2 ML (NORFLEX) AMP (ED ONLY) IV ONE (23:00)
[2023-03-22] MEDS ORDERED: KETOROLAC 30 MG/ML VIAL IVP PRN (23:00)
[2023-03-22 23:07] LABS: BASOPHILS % (AUTO) 0 % (0-10); EOSINOPHILS # (AUTO) 0.3 10^3/uL (0.0-0.3); EOSINOPHILS % (AUTO) 3 % (0-10); HEMATOCRIT 38 % (40-54); HEMOGLOBIN 12.5 g/dL (13.3-17.7); LYMPHOCYTES # (AUTO) 1.9 10^3/uL (1.0-4.0); LYMPHOCYTES % (AUTO) 19 % (12-44); MEAN CORPUSCULAR HEMOGLOBIN 30 pg (25-34); MEAN CORPUSCULAR HGB CONC 33 g/dL (32-36); MEAN CORPUSCULAR VOLUME 90 fL (80-99); MEAN PLATELET VOLUME 9.1 fL (9.0-12.2); MONOCYTES % (AUTO) 10 % (0-12); NEUTROPHILS # (AUTO) 6.6 10^3/uL (1.8-7.8); NEUTROPHILS % (AUTO) 67 % (42-75); PLATELET COUNT 198 10^3/uL (130-400); WHITE BLOOD COUNT 9.9 10^3/uL (4.3-11.0)
[2023-03-22 23:18] LABS: POTASSIUM 3.5 MMOL/L (3.6-5.0)
[2023-03-22 23:19] LABS: CALCIUM 8.8 MG/DL (8.5-10.1)
[2023-03-22 23:23] LABS: CREATININE SERUM 0.77 MG/DL (0.60-1.30)
[2023-03-22 23:26] LABS: MAGNESIUM 2.1 MG/DL (1.6-2.4)
--- NOTE | 2023-03-23 00:17 | ED Neck-Back Pain/Injury ---
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 PT REPORTS DIZZINESS, LH AND LIMITED MOBILITY OF NECK. PT STATES HAS CHRONIC NECK PAIN RX PAIN MEDS FOR. 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 Source of Information: Patient Exam Limitations: No Limitations History of Present Illness Date Seen by Provider: Mar 22, 2023 Time Seen by Provider: 22:38 Initial Comments This 57-year-old gentleman presents to the emergency room via EMS with complaints of pain in the left neck soft tissue. He had been out fishing earlier in the day. When he returned home, he stumbled and fell onto the couch. Neck pain started suddenly at that time. He denies striking his head or neck or having any significant trauma. He has no neurologic deficits. He states he cannot turn his head to the left without severe pain. He does have chronic neck pain but has never experienced pain this severe. He also has chronic back pain. He took oxycodone at 1700 but has not taken any medication for the pain since then. [facility] is his primary care provider. Allergies and Home Medications Allergies Coded Allergies: No Known Drug Allergies (Unverified , 05/22/16) Patient Home Medication List Home Medication List Reviewed: Yes Amlodipine Besylate (Amlodipine Besylate) 5 Mg Tablet, 5 MG PO DAILY, (Reported) Entered as Reported by: NEREYDA HARMAN on 04/26/19 1559 Atorvastatin Calcium (Atorvastatin Calcium) 10 Mg Tablet, 10 MG PO DAILY, (Reported) Entered as Reported by: MARY NELSON on 04/20/22 1543 Canagliflozin (Invokana) 300 Mg Tablet, 300 MG PO DAILY, (Reported) Entered as Reported by: MARY NELSON on 04/20/22 1544 Cyclobenzaprine HCl (Cyclobenzaprine HCl) 10 Mg Tablet, 10 MG PO HS, (Reported) Entered as Reported by: MARY NELSON on 04/20/22 1543 Cyclobenzaprine HCl (Cyclobenzaprine HCl) 10 Mg Tablet, 10 MG PO Q8H PRN for SPASMS Prescribed by: FRANCIS MYERS on 03/23/23 0156 Diclofenac Sodium (Diclofenac Sodium) 1 % Gel..gram., 1 APPLIC TP QID PRN for PAIN-BREAKTHROUGH, (Reported) Entered as Reported by: MAGAN ROBERTS on 05/03/19 1336 Dulaglutide (Trulicity) 0.75 Mg/0.5 Ml Pen.injctr, 0.75 MG IJ FRI, (Reported) Entered as Reported by: MARY NELSON on 04/20/22 1543 Lisinopril (Lisinopril) 40 Mg Tablet, 40 MG PO DAILY, (Reported) Entered as Reported by: NEREYDA HARMAN on 04/26/19 1559 Metoprolol Tartrate (Metoprolol Tartrate) 100 Mg Tablet, 100 MG PO DAILY, (Reported) Entered as Reported by: NEREYDA HARMAN on 04/26/19 1559 Omeprazole (Omeprazole) 40 Mg Capsule.dr, 40 MG PO BID Prescribed by: NI HUDSON JR, MD on 04/20/22 1554 Oxycodone HCl/Acetaminophen (Oxycodone-Acetaminophen 10-325) 1 Each Tablet, 1 TAB PO TID PRN for PAIN-MODERATE, (Reported) Entered as Reported by: JERRICA OCASIO on 07/16/17 0114 Review of Systems Constitutional: no symptoms reported EENTM: no symptoms reported Respiratory: no symptoms reported Cardiovascular: no symptoms reported Gastrointestinal: no symptoms reported Genitourinary: no symptoms reported Musculoskeletal: see HPI Skin: no symptoms reported Psychiatric/Neurological: No Symptoms Reported Past Nudcvwb-Bnmurl-Zluwqq Hx Patient Social History Tobacco Use?: No Substance use?: No Alcohol Use?: No Pt feels they are or have been: No Immunizations Up To Date Tetanus Booster (TDap): Unknown Seasonal Allergies Seasonal Allergies: No Past Medical History Surgery/Hospitalization HX: HIGH BLOOD PRESSURE, HIGH CHOLESTEROL, DIABETES Surgeries: Yes Abdominal, Appendectomy, Joint Replacement, Orthopedic Respiratory: Yes Sleep Apnea Currently Using CPAP: Yes Cardiac: Yes High Cholesterol, Hypertension Neurological: No Reproductive Disorders: No Sexually Transmitted Disease: No HIV/AIDS: No Genitourinary: No Gastrointestinal: Yes Chronic Constipation, Hemorrhoids Musculoskeletal: Yes Arthritis, Chronic Back Pain Endocrine: Yes Diabetes, Non-Insulin dep HEENT: No Loss of Vision: Denies Hearing Impairment: Denies Cancer: No Psychosocial: Yes Depression Integumentary: No Blood Disorders: No Adverse Reaction/Blood Tranf: No (N/A) Family Medical History Completed stroke 19 MOTHER Hypertension 19 MOTHER Myocardial infarction G8 SISTER Heart Disease, Diabetes, Hypertension Physical Exam Vital Signs Vital Signs - First Documented 03/22/23 22:36 Temp 36.7 Pulse 84 Resp 18 B/P (MAP) 140/89 (106) Pulse Ox 93 O2 Delivery Room Air Capillary Refill : Less Than 3 Seconds Height, Weight, BMI Height: 5'6.00" Weight: 265lbs. 6.0oz. [id number]; 38.61 BMI Method:Stated General Appearance: WD/WN, Mild Distress, Obese HEENT: PERRL/EOMI, Normal ENT Inspection Neck: Normal Inspection, Tender Lateral (In the left lateral posterior soft tissues extending into the trapezius muscle) Cardiovascular: Regular Rate, Rhythm, No Murmur Respiratory: Chest Non Tender, Lungs Clear, Normal Breath Sounds, No Accessory Muscle Use Gastrointestinal: Normal Bowel Sounds, Non Tender Extremity: Normal Inspection, No Pedal Edema Neurologic/Psychiatric: Alert, Oriented x3, No Motor/Sensory Deficits, Normal Mood/Affect, pulverizer tender II-XII Norm as Tested Skin: Normal Color, Warm/Dry Progress/Results/Core Measures Results/Orders Lab Results Laboratory Tests Test 03/22/23 23:00 Range/Units White Blood Count 9.9 4.3-11.0 10^3/uL Red Blood Count 4.21 L 4.30-5.52 10^6/uL Hemoglobin 12.5 L 13.3-17.7 g/dL Hematocrit 38 L 40-54 % Mean Corpuscular Volume 90 80-99 fL Mean Corpuscular Hemoglobin 30 25-34 pg Mean Corpuscular Hemoglobin Concent 33 32-36 g/dL Red Cell Distribution Width 12.8 10.0-14.5 % Platelet Count 198 130-400 10^3/uL Mean Platelet Volume 9.1 9.0-12.2 fL Immature Granulocyte % (Auto) 0 % Neutrophils (%) (Auto) 67 42-75 % Lymphocytes (%) (Auto) 19 12-44 % Monocytes (%) (Auto) 10 0-12 % Eosinophils (%) (Auto) 3 0-10 % Basophils (%) (Auto) 0 0-10 % Neutrophils # (Auto) 6.6 1.8-7.8 10^3/uL Lymphocytes # (Auto) 1.9 1.0-4.0 10^3/uL Monocytes # (Auto) 1.0 0.0-1.0 10^3/uL Eosinophils # (Auto) 0.3 0.0-0.3 10^3/uL Basophils # (Auto) 0.0 0.0-0.1 10^3/uL Immature Granulocyte # (Auto) 0.0 0.0-0.1 10^3/uL Sodium Level 140 135-145 MMOL/L Potassium Level 3.5 L 3.6-5.0 MMOL/L Chloride Level 108 H 98-107 MMOL/L Carbon Dioxide Level 22 21-32 MMOL/L Anion Gap 10 5-14 MMOL/L Blood Urea Nitrogen 25 H 7-18 MG/DL Creatinine 0.77 0.60-1.30 MG/DL Estimat Glomerular Filtration Rate 103 BUN/Creatinine Ratio 32 Glucose Level 111 H 70-105 MG/DL Calcium Level 8.8 8.5-10.1 MG/DL Magnesium Level 2.1 1.6-2.4 MG/DL My Orders Orders - FRANCIS PIERSON MD Ketorolac Injection (Toradol Injection) (03/22/23 23:00) Orphenadrine Inj (Ed Only) (Norflex Inje (03/22/23 23:00) Basic Metabolic Panel (03/22/23 22:48) Cbc With Automated Diff (03/22/23 22:48) Magnesium (03/22/23 22:48) Cyclobenzaprine Tablet (Flexeril Tablet) (03/22/23 22:48) Ct Cervical Spine Wo (03/23/23 00:01) Medications Given in ED Current Medications Medications Dose Ordered Sig/Tio Route Start Time Stop Time Status Last Admin Dose Admin Ketorolac Tromethamine 30 mg Q6H PRN IVP 03/22/23 23:00 03/23/23 02:09 DC 03/22/23 23:00 30 MG Vital Signs/I&O 03/22/23 03/23/23 22:36 02:05 Temp 36.7 36.7 Pulse 84 78 Resp 18 16 B/P (MAP) 140/89 (106) 164/88 Pulse Ox 93 94 O2 Delivery Room Air Room Air Blood Pressure Mean: 106 Progress Progress Note #1: Time: 22:50 Progress Note Report was received from EMS at 2238. Patient was examined at 2241. Labs are being obtained to ensure there is no iron deficiency or electrolyte disturbance causing muscle spasm. CT of the cervical spine is being considered as patient d id have some type of fall event at the time of onset of pain. Pain is being treated with Toradol and cyclobenzaprine. Parenteral muscle relaxers are not available at this hospital at this time. Progress Note #2: Time: 01:52 Progress Note Labs were reviewed including CBC, BMP, and magnesium. There were no significant abnormalities that would contribute to fall or muscle spasm. Labs were interpreted by me in their entirety. CT of the cervical spine was obtained and [facility] report was reviewed. There were no acute abnormalities or injuries identified. Diagnostic Imaging Diagonstic Imaging: CT Plain Films/CT/US/NM/MRI: c-spine Comments CT of the cervical spine report from [facility] was reviewed. No acute injuries were identified. Departure Impression Primary Impression: Neck pain Additional Impressions: Fall on same level Qualified Codes: W18.30XA - Fall on same level, unspecified, initial encounter Muscle spasms of neck Disposition: HOME, SELF-CARE Condition: Improved Departure-Patient Inst. Decision time for Depature: 01:53 Referrals: TRISHA WELSH DO (PCP) Primary Care Physician [facility] (Family) Primary Care Physician Patient Instructions: Muscle Spasm ED, Neck Pain ED, Using Heat for Pain Add. Discharge Instructions: Drink plenty of clear liquids to stay well-hydrated. You likely have a muscle spasm in your neck causing this pain. You may use gentle heat to help the muscles relax. Gentle stretching of the tight muscles may also be helpful. For pain you may take ibuprofen up to 600 mg every 6 hours as needed and/or Tylenol (acetaminophen) up to 1000 mg every 6 hours as needed. Ibuprofen should not be used for prolonged pain treatment in diabetes but may be used for a few days to treat acute pain. You may use the cyclobenzaprine muscle relaxer as prescribed. Please be aware this medication may cause drowsiness, so do not drive, operate machinery, or make important decisions while taking cyclobenzaprine. Return to care if you have worsening symptoms despite following these instructions. Follow-up with your primary care provider if pain has not resolved in the next few days. All discharge instructions reviewed with patient and/or family. Voiced understanding. Scripts Cyclobenzaprine HCl (Cyclobenzaprine HCl) 10 Mg Tablet 10 MG PO Q8H PRN for SPASMS, #15 TAB 0 Refills Prov: FRANCIS PIERSON MD 03/23/23 Copy Copies To 1: [facility] FRANCIS PIERSON MD Mar 23, 2023 00:17
[2023-03-23] MEDS ORDERED: CYCL10TA25 PO (01:56)
[2023-03-23 02:05] VITALS: BP 164/88
--- NOTE | 2023-03-23 07:46 | Diagnostic Imaging Report ---
PROCEDURE: CT cervical spine without contrast. TECHNIQUE: Multiple contiguous axial images were obtained through the cervical spine without the use of intravenous contrast. Sagittal and coronal reformations were then performed. Auto Exposure Controls were utilized during the CT exam to meet ALARA standards for radiation dose reduction. INDICATION: Fall with neck pain There is mild straightening of normal cervical lordosis. Vertebral body heights are maintained with mild to moderate narrowing of the mid and lower cervical disc spaces. Mild associated endplate spurring is also noted however there is no evidence of an acute fracture. There is no evidence of paraspinous hematoma. IMPRESSION: Cervical spondylosis without acute fracture or malalignment is identified. Loss of cervical lordosis may be secondary to muscle spasm or positioning. Dictated by: Dictated on workstation # [id number]
== END 2023-03-23 02:09 | disposition home or self-care (01) ==
LOC: EDUNIT# 22:33 → ER 22:34
DX: M62.838 Other muscle spasm (principal); G89.29 Other chronic pain; G47.30 Sleep apnea, unspecified; Z99.89 Dependence on other enabling machines and devices; W18.30XA Fall on same level, unspecified, initial encounter
CPT/HCPCS: 36415; 72125; 80048; 83735; 85025

== ENCOUNTER 2023-06-27 18:12 | Emergency (ER) | payer MEDICARE, MEDICAID ==
[~2023-06-27 18:12] MED LIST changes: -CELE-63 PO; +CELE-91 PO; -DICL100G13 TP; +DICL100G60 TP; -MECL-149 PO; +MECL-291 PO
--- NOTE | 2023-06-27 19:54 | ED Lower Extremity ---
General Chief Complaint: Trauma-Non Activation Stated Complaint: LEFT LEG NUMBNESS Nursing Triage Note: PT CO OF R LEG NUMBNESS STARTED 3 DAYS AGO AFTER FALLING. CO OF NERVE PAIN UP TO THIGH. DENIES PROBLEMS W BOWELS OR BLADDER Source: patient Exam Limitations: no limitations (TEX BELLO) History of Present Illness Date Seen by Provider: Jun 27, 2023 Time Seen by Provider: 19:53 Initial Comments Patient is a 57-year-old male who presents ED with right leg numbness started 3 to 4 days ago. Patient states he fell about 3 to 4 days ago. Patient cannot elaborate on the fall or the injury. Patient states he has numbness in his right leg that is mostly chronic but this pain became worse after the fall 3 to 4 days ago. Sharp shooting pain from the right lower back to his right foot. States he is able to ambulate and walk. He denies of any bowel or urine incontinence or saddle paresthesia. Denies of any lower leg weakness. History of epidurals last 1 in his lower back 2 to 3 weeks ago in [place]. Does follow neurosurgeon in [facility]. Denies history low back surgery. Denies any drug use alcohol use nausea vomiting diarrhea chest pain or shortness of breath. Pat ient states he feels like he has swelling in his lower extremities bilateral but states this is not new. No known history of CHF or coronary artery disease according patient. Patient is diabetic (TEX BELLO) Allergies and Home Medications Allergies Coded Allergies: No Known Drug Allergies (Unverified , 05/22/16) Patient Home Medication List Home Medication List Reviewed: Yes (TEX BELLO) Amlodipine Besylate (Amlodipine Besylate) 5 Mg Tablet, 5 MG PO DAILY, (Reported) Entered as Reported by: NEREYDA HARMAN on 04/26/19 1559 Atorvastatin Calcium (Atorvastatin Calcium) 10 Mg Tablet, 10 MG PO DAILY, (Reported) Entered as Reported by: MARY NELSON on 04/20/22 1543 Canagliflozin (Invokana) 300 Mg Tablet, 300 MG PO DAILY, (Reported) Entered as Reported by: MARY NELSON on 04/20/22 1544 Cyclobenzaprine HCl (Cyclobenzaprine HCl) 10 Mg Tablet, 10 MG PO HS, (Reported) Entered as Reported by: MARY NELSON on 04/20/22 1543 Cyclobenzaprine HCl (Cyclobenzaprine HCl) 10 Mg Tablet, 10 MG PO Q8H PRN for SPASMS Prescribed by: FRANCIS MYERS on 03/23/23 0156 Diclofenac Sodium (Diclofenac Sodium) 1 % Gel..gram., 1 APPLIC TP QID PRN for PAIN-BREAKTHROUGH, (Reported) Entered as Reported by: MAGAN ROBERTS on 05/03/19 1336 Dulaglutide (Trulicity) 0.75 Mg/0.5 Ml Pen.injctr, 0.75 MG IJ FRI, (Reported) Entered as Reported by: MARY NELSON on 04/20/22 1543 Lisinopril (Lisinopril) 40 Mg Tablet, 40 MG PO DAILY, (Reported) Entered as Reported by: NEREYDA HARMAN on 04/26/19 1559 Metoprolol Tartrate (Metoprolol Tartrate) 100 Mg Tablet, 100 MG PO DAILY, (Reported) Entered as Reported by: NEREYDA HARMAN on 04/26/19 1559 Omeprazole (Omeprazole) 40 Mg Capsule.dr, 40 MG PO BID Prescribed by: NI HUDSON JR, MD on 04/20/22 1554 Oxycodone HCl/Acetaminophen (Oxycodone-Acetaminophen 10-325) 1 Each Tablet, 1 TAB PO TID PRN for PAIN-MODERATE, (Reported) Entered as Reported by: JERRICA OCASIO on 07/16/17 0114 Review of Systems Constitutional: No chills, No diaphoresis EENTM: No ear pain, No blurred vision, No double vision Respiratory: No cough, No dyspnea on exertion Cardiovascular: No chest pain Gastrointestinal: No abdominal pain, No diarrhea, No nausea, No vomiting Genitourinary: No decreased output, No discharge Musculoskeletal: back pain; No joint pain Skin: No change in color (TEX BELLO) All Other Systems Reviewed Negative Unless Noted: Yes (TEX BELLO) Past Ljguenr-Zpagum-Nrfxoj Hx Patient Social History Tobacco Use?: No Substance use?: No Alcohol Use?: No Pt feels they are or have been: No (TEX BELLO) Immunizations Up To Date Tetanus Booster (TDap): Unknown First/Initial COVID19 Vaccinat: YES (TEX BELLO) Seasonal Allergies Seasonal Allergies: No (TEX BELLO) Past Medical History Surgery/Hospitalization HX: HIGH BLOOD PRESSURE, HIGH CHOLESTEROL, DIABETES, BILATERAL KNEE REPLACEMENT Surgeries: Yes Abdominal, Appendectomy, Joint Replacement, Orthopedic Respiratory: Yes Sleep Apnea Currently Using CPAP: Yes Cardiac: Yes High Cholesterol, Hypertension Neurological: No Reproductive Disorders: No Sexually Transmitted Disease: No HIV/AIDS: No Genitourinary: No Gastrointestinal: Yes Chronic Constipation, Hemorrhoids Musculoskeletal: Yes Arthritis, Chronic Back Pain Endocrine: Yes Diabetes, Non-Insulin dep HEENT: No Loss of Vision: Denies Hearing Impairment: Denies Cancer: No Psychosocial: Yes Depression Integumentary: No Blood Disorders: No Adverse Reaction/Blood Tranf: No (N/A) (TEX BELLO) Family Medical History Completed stroke 19 MOTHER Hypertension 19 MOTHER Myocardial infarction G8 SISTER Heart Disease, Diabetes, Hypertension (TEX BELLO) Physical Exam Vital Signs Vital Signs - First Documented 06/27/23 18:40 Temp 36.7 Pulse 92 Resp 18 B/P (MAP) 183/106 (131) Pulse Ox 95 (NINFA,JERRICA K DO) Vital Signs Capillary Refill : Less Than 3 Seconds (TEX BELLO) Height, Weight, BMI Height: 5'6.00" Weight: 265lbs. 6.0oz. 120.569132hd; 38.61 BMI Method:Stated General Appearance: WD/WN, no apparent distress HEENT: PERRL/EOMI, normal ENT inspection, TMs normal, pharynx normal Neck: non-tender, full range of motion, supple Cardiovascular: regular rate, rhythm, no edema, no gallop, no JVD Respiratory: chest non-tender, lungs clear, normal breath sounds, no respir atory distress, no accessory muscle use Gastrointestinal: normal bowel sounds, non tender, soft, no organomegaly Back: normal inspection, no CVA tenderness Hips: bilateral hip non-tender, bilateral hip normal inspection, bilateral hip no evidence of injury Legs: bilateral leg non-tender, bilateral leg normal inspection, bilateral leg normal range of motion Knees: bilateral knee non-tender, bilateral knee normal inspection, bilateral knee normal range of motion Ankles: bilateral ankle non-tender, bilateral ankle normal inspection, bilateral ankle normal range of motion Feet: bilateral foot non-tender Neurologic/Tendon: normal sensation, normal motor functions, normal tendon functions 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, no motor/sensory deficits, alert, normal mood/affect, oriented x 3 Skin: normal color, warm/dry (TEX BELLO) Progress/Results/Core Measures Results/Orders Lab Results Laboratory Tests Test 06/27/23 19:50 Range/Units White Blood Count 8.8 4.3-11.0 10^3/uL Red Blood Count 4.55 4.30-5.52 10^6/uL Hemoglobin 13.8 13.3-17.7 g/dL Hematocrit 41 40-54 % Mean Corpuscular Volume 90 80-99 fL Mean Corpuscular Hemoglobin 30 25-34 pg Mean Corpuscular Hemoglobin Concent 34 32-36 g/dL Red Cell Distribution Width 13.4 10.0-14.5 % Platelet Count 255 130-400 10^3/uL Mean Platelet Volume 9.2 9.0-12.2 fL Immature Granulocyte % (Auto) 1 % Neutrophils (%) (Auto) 72 42-75 % Lymphocytes (%) (Auto) 16 12-44 % Monocytes (%) (Auto) 9 0-12 % Eosinophils (%) (Auto) 1 0-10 % Basophils (%) (Auto) 0 0-10 % Neutrophils # (Auto) 6.4 1.8-7.8 10^3/uL Lymphocytes # (Auto) 1.4 1.0-4.0 10^3/uL Monocytes # (Auto) 0.8 0.0-1.0 10^3/uL Eosinophils # (Auto) 0.1 0.0-0.3 10^3/uL Basophils # (Auto) 0.0 0.0-0.1 10^3/uL Immature Granulocyte # (Auto) 0.1 0.0-0.1 10^3/uL Sodium Level 138 135-145 MMOL/L Potassium Level 4.0 3.6-5.0 MMOL/L Chloride Level 103 98-107 MMOL/L Carbon Dioxide Level 25 21-32 MMOL/L Anion Gap 10 5-14 MMOL/L Blood Urea Nitrogen 25 H 7-18 MG/DL Creatinine 0.88 0.60-1.30 MG/DL Estimat Glomerular Filtration Rate 99 BUN/Creatinine Ratio 28 Glucose Level 224 H 70-105 MG/DL Calcium Level 8.9 8.5-10.1 MG/DL Corrected Calcium 9.0 8.5-10.1 MG/DL Magnesium Level 2.0 1.6-2.4 MG/DL Total Bilirubin 0.3 0.1-1.0 MG/DL Aspartate Amino Transf (AST/SGOT) 18 5-34 U/L Alanine Aminotransferase (ALT/SGPT) 49 0-55 U/L Alkaline Phosphatase 54 40-136 U/L Total Protein 6.2 L 6.4-8.2 GM/DL Albumin 3.9 3.2-4.5 GM/DL Serum Alcohol < 10 <10 MG/DL (JERRICA OCASIO DO) Medications Given in ED Current Medications Medications Dose Ordered Sig/Tio Route Start Time Stop Time Status Last Admin Dose Admin Methylprednisolone Sodium Succinate 125 mg ONCE ONCE IVP 06/27/23 21:15 06/27/23 21:16 DC 06/27/23 21:16 125 MG (NINFAWILLA K ) Vital Signs/I&O 06/27/23 06/27/23 18:40 21:40 Temp 36.7 Pulse 92 84 Resp 18 B/P (MAP) 183/106 (131) 169/90 Pulse Ox 95 (NINFAJERRICA K DO) Blood Pressure Mean: 131 Departure Communication (PCP) Reviewed previous ER visits, H&P, lab testing. History of degenerative disc disease. History of epidurals. Last epidural was in his lower back about 2 to 3 weeks ago. Patient has chronic numbness and tingling into the right leg. This became worse over the past 4 days. Potential injury 4 days ago. CBC, CMP, CT of the lumbar spine was ordered. Patient has no neurological red flag findings such as bowel or urine incontinence. Does have adequate strength in the lower extremity with normal sensation. There is no obvious muscle weakness at this time. CBC, CMP was grossly unremarkable. Did receive fentanyl and a dose of Solu-Medrol. Does take oxycodone daily. Lumbar spine shows extensive multil evel degenerative changes throughout the lumbar spine with multilevel canal stenosis. L5-S1 level there is a hyperdense finding to the right of the midline in the canal which may represent a partial calcified cyst. Patient was discussed with Dr. Nguyen neurosurgeon at [facility] of CT scan results. Since patient is showing no signs of muscle weakness at this time. HE suggest outpatient follow-up in their clinic and will need further evaluation with MRI. Did not recommend emergent transfer at this time on these findings. if any changes in symptoms such as muscle weakness patient will need further immediate evaluation. Patient agreed with this plan of action. Provided number for Dr. Nguyen in the discharge. (TEX BELLO) Impression Primary Impression: DDD (degenerative disc disease) Additional Impression: Lumbar radiculopathy Disposition: HOME, SELF-CARE Condition: Stable Departure-Patient Inst. Decision time for Depature: 21:29 (TEX BELLO) Referrals: TRISHA WELSH DO (PCP/Family) Primary Care Physician Patient Instructions: Degenerative Disc Disease ED, Radiculopathy Add. Discharge Instructions: Recommend following up with Dr. Nguyen neurosalissa at [facility]. Number to their clinic is [phone]. Address is [address] [place] [address] All discharge instructions reviewed with patient and/or family. Voiced understanding. ATTENDING PHYSICIAN NOTE: I WAS PHYSICALLY PRESENT ER PHYSICIAN, BUT I WAS NOT INVOLVED IN ANY DECISION MAKING OR ANY CARE OF THIS PATIENT, AND I AM NOT COLLABORATING PHYSICIAN. (JERRICA OCASIO DO) TEX BELLO Jun 27, 2023 19:54 JERRICA OCASIO DO Jun 28, 2023 05:20
[2023-06-27 20:01] LABS: BASOPHILS % (AUTO) 0 % (0-10); EOSINOPHILS # (AUTO) 0.1 10^3/uL (0.0-0.3); EOSINOPHILS % (AUTO) 1 % (0-10); HEMATOCRIT 41 % (40-54); HEMOGLOBIN 13.8 g/dL (13.3-17.7); LYMPHOCYTES # (AUTO) 1.4 10^3/uL (1.0-4.0); LYMPHOCYTES % (AUTO) 16 % (12-44); MEAN CORPUSCULAR HEMOGLOBIN 30 pg (25-34); MEAN CORPUSCULAR HGB CONC 34 g/dL (32-36); MEAN CORPUSCULAR VOLUME 90 fL (80-99); MEAN PLATELET VOLUME 9.2 fL (9.0-12.2); MONOCYTES # (AUTO) 0.8 10^3/uL (0.0-1.0); MONOCYTES % (AUTO) 9 % (0-12); NEUTROPHILS # (AUTO) 6.4 10^3/uL (1.8-7.8); NEUTROPHILS % (AUTO) 72 % (42-75); PLATELET COUNT 255 10^3/uL (130-400); WHITE BLOOD COUNT 8.8 10^3/uL (4.3-11.0)
[2023-06-27 20:18] LABS: ALANINE AMINOTRANSFERASE 49 U/L (0-55); ALBUMIN 3.9 GM/DL (3.2-4.5); ALKALINE PHOSPHATASE 54 U/L (40-136); BILIRUBIN,TOTAL 0.3 MG/DL (0.1-1.0); BUN/CREATININE RATIO 28; CALCIUM 8.9 MG/DL (8.5-10.1); CARBON DIOXIDE 25 MMOL/L (21-32); CHLORIDE 103 MMOL/L (98-107); CREATININE SERUM 0.88 MG/DL (0.60-1.30); GFR ESTIMATED 99; GLUCOSE 224 MG/DL (70-105); SODIUM 138 MMOL/L (135-145); TOTAL PROTEIN 6.2 GM/DL (6.4-8.2)
--- NOTE | 2023-06-27 20:23 | Diagnostic Imaging Report ---
INDICATION: Right leg numbness, history of fall. TECHNIQUE: Multiple contiguous axial images were obtained through the lumbar spine without the use of intravenous contrast. Sagittal and coronal reformations were then performed. Auto Exposure Controls were utilized during the CT exam to meet ALARA standards for radiation dose reduction. There is no prior lumbar CT for comparison. There is no evidence of lumbar spine fracture or compression deformity. There is disc space narrowing with vacuum disc effect at L3-L4, L2-L3, and L1-L2. There is diffuse degenerative change throughout the lumbar spine. There are degenerative changes at the posterior portions of the SI joints. There is prominent facet degenerative change at L4-L5 with a hyperdense finding in the canal to the right of midline, which may be a partially calcified cyst. This measured about 1.5 cm in greatest diameter. There is some right-sided neural foraminal narrowing. At L4-L5, there is marked facet hypertrophy and ahnzkzkw-bv-qyqdjo central canal stenosis. At L3-L4, there is also marked facet hypertrophy with moderate to severe central canal stenosis. At L2-L3, there is also canal stenosis with facet joint degenerative change. IMPRESSION: Extensive multilevel degenerative change throughout the lumbar spine as described above with multilevel canal stenosis. At the L5-S1 level, there is a hyperdense finding to the right of midline in the canal which may represent a partially calcified cyst. Would suggest further characterization of this finding with MRI pre- and post-IV contrast. Dictated by: Dictated on workstation # [id number]
[2023-06-27] MEDS ORDERED: fentaNYL INJECTION 100 MCG/2 ML VIAL IVP STA (21:08)
[2023-06-27] MEDS ORDERED: methylPREDNISolone INJ 125 MG VIAL IVP ONE (21:15)
[2023-06-27 21:40] VITALS: BP 169/90
== END 2023-06-27 21:40 | disposition home or self-care (01) ==
LOC: EDUNIT# 18:12 → ER 18:15
DX: M51.16 Intervertebral disc disorders with radiculopathy, lumbar region (principal); G47.30 Sleep apnea, unspecified; Z28.311 Partially vaccinated for COVID-19; Z99.89 Dependence on other enabling machines and devices
CPT/HCPCS: 36415; 72131; 80053; 80320; 83735; 85025

== ENCOUNTER 2023-07-06 19:26 | Outpatient (CLI) | payer MEDICARE, MEDICAID | END 2023-07-07 06:45 | LOC: CANPRECLI → SLEEP 19:26 | PROVIDERS: ATTEND Nurse Practitioner Family | DX: G47.33 Obstructive sleep apnea (adult) (pediatric) (principal); G47.10 Hypersomnia, unspecified; R51.9 Headache, unspecified | CPT/HCPCS: 95811 ==

== ENCOUNTER → 2023-07-11 | Outpatient (CLI) | payer MEDICARE, MEDICAID ==
--- NOTE | 2023-07-11 09:47 | Diagnostic Imaging Report ---
PROCEDURE: MRI lumbar spine. TECHNIQUE: Multiplanar, multisequence MRI of the lumbar spine was performed without contrast. DATE: July 11, 2023. COMPARISON: CT lumbar spine June 27, 2023. MRI lumbar spine April 27, 2019. INDICATION: 57-year-old male, increasing right leg numbness. Low back pain. FINDINGS: The alignment of the lumbar spine is unremarkable. There is no evidence of a diffuse marrow infiltrating or replacing process. There is no identified compression deformity or fracture. There is no identified focal concerning bone lesion. The visualized cord and conus medullaris is unremarkable and terminates at the L1 level. There is moderate disc height loss at L1-L2, L2-L3, and L3-L4. There is mild disc height loss at L4-L5. There are disc degenerative changes of the lower thoracic spine. T12-L1: There is mild diffuse disc bulge. There are mild bilateral facet degenerative changes. There is prominence of the posterior epidural fat. There is no foraminal stenosis. There is very mild spinal stenosis. L1-L2: There is diffuse disc bulge. There is moderate narrowing of both lateral recesses. There are bilateral facet degenerative changes. There is prominence of the posterior epidural fat. There is moderate to severe right and mild left foraminal narrowing. There is severe spinal canal stenosis. L2-L3: There is diffuse disc bulge. There is severe narrowing of both lateral recesses. There are bilateral facet degenerative changes with ligamentum flavum hypertrophy. There is prominence of the posterior epidural fat. There is moderate to severe right and severe left foraminal narrowing. There is severe spinal canal stenosis. L3-L4: There is diffuse disc bulge. There is severe narrowing of both lateral recesses. There are bilateral facet degenerative changes with ligamentum flavum hypertrophy. There is severe bilateral foraminal narrowing. There is severe spinal canal stenosis. L4-L5: There is an annular tear. There is mild diffuse disc bulge. There are bilateral facet degenerative changes. There is moderate bilateral foraminal narrowing. There is moderate spinal canal stenosis. L5-S1: There is no disc bulge. There are bilateral facet degenerative changes. There is a periarticular cyst medial to the right facet articulation which measures approximately 7 x 11 x 15 mm in size concerning mass effect on the right side of the thecal sac There is . foraminal narrowing. There is moderate to severe spinal canal stenosis. IMPRESSION: 1. Multilevel advanced disc and facet degenerative changes of the thoracolumbar spine as described in detail level by level above. 2. No identified focal concerning bone lesion, compression deformity, or fracture. 3. High attenuation focus medial to the right facet articulation at L5-S1, it is most likely a periarticular cyst and does exert mass effect on the thecal sac. There is associated moderate to severe spinal stenosis. Dictated by: Dictated on workstation # [id number]
== END ==
LOC: RAD 07:31
DX: M51.26 Other intervertebral disc displacement, lumbar region (principal); M47.816 Spondylosis without myelopathy or radiculopathy, lumbar region; M48.061 Spinal stenosis, lumbar region without neurogenic claudication; M24.28 Disorder of ligament, vertebrae; M51.36 Other intervertebral disc degeneration, lumbar region; M47.817 Spondylosis without myelopathy or radiculopathy, lumbosacral region
CPT/HCPCS: 72148

== ENCOUNTER 2023-08-16 20:44 | Emergency (ER) | payer MEDICARE, MEDICAID ==
[~2023-08-16] VITALS: Ht 167.7 cm; Wt 106.6 kg
[2023-08-16 20:50] VITALS: BP 143/86
--- NOTE | 2023-08-16 21:08 | ED General ---
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 NO TICK NOTED DURING TRIAGE, AREA OF CONCERN APPEARS SLIGHTLY REDDENED. PT REPORTS HE CAME TO ED TO HAVE STAFF REMOVE TICK. A&OX4, C/O UNRELATED CHRONIC BACK PAIN. Source of Information: Patient Exam Limitations: No Limitations (TEX BELLO) History of Present Illness Date Seen by Provider: Aug 16, 2023 Time Seen by Provider: 21:05 Initial Comments Patient is a 57-year-old male who presents ED for potential tick bite to his chest. Noted something on his chest yesterday. [place] some pain and discomfort. Use the alcohol pad this evening and thought he removed the tick. He denies seeing any bug or a tick. Did have some redness but the redness seems to be improving today. Reports some mild pain and discomfort. Denies fever chills nausea vomiting diarrhea joint pain. States he has a puppy that goes outside which he may be concerned that he brought in the tick. (TEX BELLO) Allergies and Home Medications Allergies Coded Allergies: No Known Drug Allergies (Unverified , 05/22/16) Patient Home Medication List Home Medication List Reviewed: Yes (TEX BELLO) Amlodipine Besylate (Amlodipine Besylate) 5 Mg Tablet, 5 MG PO DAILY, (Reported) Entered as Reported by: NEREYDA HARMAN on 04/26/19 1559 Atorvastatin Calcium (Atorvastatin Calcium) 10 Mg Tablet, 10 MG PO DAILY, (Reported) Entered as Reported by: MARY NELSON on 04/20/22 1543 Canagliflozin (Invokana) 300 Mg Tablet, 300 MG PO DAILY, (Reported) Entered as Reported by: MARY NELSON on 04/20/22 1544 Cyclobenzaprine HCl (Cyclobenzaprine HCl) 10 Mg Tablet, 10 MG PO HS, (Reported) Entered as Reported by: MARY NELSON on 04/20/22 1543 Cyclobenzaprine HCl (Cyclobenzaprine HCl) 10 Mg Tablet, 10 MG PO Q8H PRN for SPASMS Prescribed by: FRANCIS MYERS on 03/23/23 0156 Diclofenac Sodium (Diclofenac Sodium) 1 % Gel..gram., 1 APPLIC TP QID PRN for PAIN-BREAKTHROUGH, (Reported) Entered as Reported by: MAGAN ROBERTS on 05/03/19 1336 Dulaglutide (Trulicity) 0.75 Mg/0.5 Ml Pen.injctr, 0.75 MG IJ FRI, (Reported) Entered as Reported by: MARY NELSON on 04/20/22 1543 Lisinopril (Lisinopril) 40 Mg Tablet, 40 MG PO DAILY, (Reported) Entered as Reported by: NEERYDA HARMAN on 04/26/19 1559 Metoprolol Tartrate (Metoprolol Tartrate) 100 Mg Tablet, 100 MG PO DAILY, (Reported) Entered as Reported by: NEREYDA HARMAN on 04/26/19 1559 Omeprazole (Omeprazole) 40 Mg Capsule.dr, 40 MG PO BID Prescribed by: NI HUDSON JR, MD on 04/20/22 1554 Oxycodone HCl/Acetaminophen (Oxycodone-Acetaminophen 10-325) 1 Each Tablet, 1 TAB PO TID PRN for PAIN-MODERATE, (Reported) Entered as Reported by: JERRICA OCASIO on 07/16/17 0114 Review of Systems Review of Systems Constitutional: No diaphoresis, No malaise, No weakness EENTM: No ear pain, No blurred vision, No double vision, No mouth pain, No mouth swelling Respiratory: No cough, No dyspnea on exertion Cardiovascular: No chest pain, No edema Gastrointestinal: No abdominal pain, No diarrhea, No nausea, No vomiting Genitourinary: No decreased output, No discharge, No dysuria, No frequency Musculoskeletal: No back pain, No joint pain, No muscle pain Skin: No change in color, No change in hair/nails (TEX BELLO) All Other Systems Reviewed Negative Unless Noted: Yes (TEX BELLO) Past Sximbof-Qkbprf-Gdkhzo Hx Patient Social History Tobacco Use?: No Use of E-Cig and/or Vaping dev: No Substance use?: No Alcohol Use?: No (TEX BELLO) Immunizations Up To Date Tetanus Booster (TDap): Unknown First/Initial COVID19 Vaccinat: YES (TEX BELLO) Seasonal Allergies Seasonal Allergies: No (TEX BELLO) Past Medical History Surgery/Hospitalization HX: HIGH BLOOD PRESSURE, HIGH CHOLESTEROL, DIABETES, BILATERAL KNEE REPLACEMENT Surgeries: Yes Abdominal, Appendectomy, Joint Replacement, Orthopedic Respiratory: Yes Sleep Apnea Currently Using CPAP: Yes Cardiac: Yes High Cholesterol, Hypertension Neurological: No Reproductive Disorders: No Sexually Transmitted Disease: No HIV/AIDS: No Genitourinary: No Gastrointestinal: Yes Chronic Constipation, Hemorrhoids Musculoskeletal: Yes Arthritis, Chronic Back Pain Endocrine: Yes Diabetes, Non-Insulin dep HEENT: No Loss of Vision: Denies Hearing Impairment: Denies Cancer: No Psychosocial: Yes Depression Integumentary: No Blood Disorders: No Adverse Reaction/Blood Tranf: No (N/A) (TEX BELLO) Family Medical History Completed stroke 19 MOTHER Hypertension 19 MOTHER Myocardial infarction G8 SISTER Heart Disease, Diabetes, Hypertension (TEX BELLO) Physical Exam Vital Signs Vital Signs - First Documented 08/16/23 20:50 Temp 36.2 Pulse 96 Resp 18 B/P (MAP) 143/86 (105) Pulse Ox 98 O2 Delivery Room Air (NINFA,JERRICA K DO) Vital Signs Capillary Refill : Less Than 3 Seconds (TEX BELLO) Height, Weight, BMI Height: 5'6.00" Weight: 265lbs. 6.0oz. 120.581749gq; 37.00 BMI Method:Stated General Appearance: No Apparent Distress, WD/WN Eyes: Bilateral Eye Normal Inspection, Bilateral Eye PERRL, Bilateral Eye EOMI HEENT: PERRL/EOMI, TMs Normal, Normal ENT Inspection, Pharynx Normal Neck: Full Range of Motion, Normal Inspection, Non Tender, Supple Respiratory: Chest Non Tender, Lungs Clear, Normal Breath Sounds, No Accessory Muscle Use, No Respiratory Distress Cardiovascular: Regular Rate, Rhythm, No Edema, No Gallop Gastrointestinal: Normal Bowel Sounds, No Organomegaly, No Pulsatile Mass Extremity: Normal Capillary Refill, Normal Inspection, Normal Range of Motion Neurologic/Psychiatric: Alert, Oriented x3, No Motor/Sensory Deficits, Normal 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 Mild induration. No fluctuant mass. Very local erythema.) (TEX BELLO) Progress/Results/Core Measures Suspected Sepsis SIRS Temperature: Pulse: 96 Respiratory Rate: 18 Blood Pressure 143 /86 Mean: 105 (TEX BELLO) Results/Orders Vital Signs/I&O 08/16/23 20:50 Temp 36.2 Pulse 96 Resp 18 B/P (MAP) 143/86 (105) Pulse Ox 98 O2 Delivery Room Air (JERRICA OCASIO DO) Vital Signs/I&O Capillary Refill : Less Than 3 Seconds (TEX BELLO) Blood Pressure Mean: 105 Departure Communication (PCP) Patient has a pea size area of swelling localized redness to the center part of the chest. No fluctuant mass. Does not appear to be infectious. There is no obvious tick. Unsure if there was a tick on his skin or not. Potential early infected hair follicle versus localized reaction to a bug bite. I do not think oral antibiotics is necessary at this time. Suggest topical Neosporin. Do not feel antibiotic prophylactically needs started at this time. Low probability of a tick bite during this time of the year. If increased redness or swelling to return back to ED. Follow-up your PCP in 2 to 3 days for reevaluation. (TEX BELLO) Impression Primary Impression: Skin lesion Disposition: 01 HOME, SELF-CARE Condition: Stable Departure-Patient Inst. Decision time for Depature: 21:08 (TEX BELLO) Referrals: SEMAJ BLUE APRN (PCP/Family) Primary Care Physician Patient Instructions: Skin Rash ED Add. Discharge Instructions: Continue monitoring. Topical Neosporin. If increased redness swelling or pain return back to ED. All discharge instructions reviewed with patient and/or family. Voiced understanding. ATTENDING PHYSICIAN NOTE: I WAS PHYSICALLY PRESENT ER PHYSICIAN, BUT I WAS NOT INVOLVED IN ANY DECISION MAKING OR ANY CARE OF THIS PATIENT AND I AM NOT COLLABORATING PHYSICIAN. (JERRICA OCASIO DO) TEX BELLO Aug 16, 2023 21:08 JERRICA OCASIO DO Aug 17, 2023 00:12
== END 2023-08-16 21:19 | disposition home or self-care (01) ==
LOC: EDUNIT# 20:44 → ER 20:48
DX: L98.9 Disorder of the skin and subcutaneous tissue, unspecified (principal); G47.30 Sleep apnea, unspecified
CPT/HCPCS: 99281